=== PATIENT | female | born 1955 | race Caucasian/White ===

== ENCOUNTER 2018-03-26 12:18 | Emergency (ER) | payer OTHER, SELFPAY ==
[2018-03-26 12:19] VITALS: BP 145/91; PULSE 105; RESP 16; TEMP 36.3; O2SAT 97; BMI 23.4
--- NOTE | 2018-03-26 13:04 | RAD_ITS ---
STUDY: X-RAY - THORACIC SPINE REASON FOR EXAM: Female, 63 years old. Upper back pain and spasms. TECHNIQUE: 3 view(s) of the thoracic spine were obtained. COMPARISON: None. FINDINGS: Normal kyphosis of the thoracic spine. There is no substantial scoliosis. Normal thoracic vertebrae and endplates. Normal disc space heights. The soft tissue structures are unremarkable. RAD/Thoracic Spine 3 Views IMPRESSION: Normal x-ray examination of the thoracic spine. Electronically Signed: Horace Maldonado MD at 14:18 EDT Tel [phone], Service support ,
--- NOTE | 2018-03-26 13:06 | ED.VISSUMM ---
- ER Visit Summary Date of Service: 03/26/18 Chief Complaint: Fall History of Present Illness: The patient is a 63 F presenting after fall. Patient states she was walking her dog and the dog pulled and she fell. She hit her back. She did not hit her head or lose consciousness. She complains of upper mid back pain. She has a history of chronic back pain. This worsened her typical pain. She is able to ambulate. She denies other injuries. Physical Examination: Vitals are stable. Patient is afebrile. Alert no acute distress. HEENT exam is unremarkable. Neck is nontender Lungs are clear and equal bilaterally. Heart is regular rate and rhythm. Abdomen is soft nontender nondistended. Back: Thoracic paraspinal muscle tenderness bilaterally Extremities are unremarkable. Skin is warm and dry. No focal neurologic deficit. Normal strength and sensation Remainder of exam is unremarkable. Emergency Department Course and Treatment: Thoracic spine x-ray shows no acute process. Patient was at [facility] ED yesterday for back pain. She has a prescription for Norflex waiting for her at the pharmacy. She will pick this up. She is advised to return to ED for worsening complaints. Disposition: Discharged home Impression: Back pain status post fall This note was generated with [employer] dictation software. It may contain incorrect words, spelling, and punctuation that were not noted in review of the chart prior to signing ED Disposition - Plan for ED Patient: Chief Complaint: Fall Instructions: ED Mechanical Fall Referrals: Dameon Ny MD [Primary Care Provider] -
--- NOTE | 2018-03-26 13:27 | ED.RN ---
PT ASKED ABOUT MEDICATION. PT GIVES LIST. ON COMPUTER THIS RN FINDS SCRIPT FOR NORFLEX. PT STATES DID NOT GET. THIS RN ASKS PT IF THEY WERE SEEN SOMEWHERE YESTERDAY. PT STATES OH YES I FORGOT I WAS SEEN IN [place] YESTERDAY. WHEN ASKED FOR WHAT PT STATES PAIN.. WHEN ASKED WHERE PT POINTS TO SAME PLACE. PT STATES IT WAS DIFFERENT YESTERDAY. TALKED WITH DR JAQUAN CLINTON NOT TO BE GIVEN AT THIS TIME. WILL SEND FOR RAD
--- NOTE | 2018-03-26 14:05 | ED.RN ---
THIS RN CALLS [facility] IN [place]. PRESCRIPTION CLARIFIED. PT DOES HAVE SCRIPT FOR NORFLEX AT THE PHARMACY AWAITING PICK-UP. PT CONFRONTED ABOUT STATING SHE TOLD THEM NOT TO FILL. PT STATES NO SHE HAD THEM FILL IT BUT THEY WERE SUPPOSSED TO CALL WITH RABIA. DR RO. NO MEDS TO BE GIVEN HERE
--- NOTE | 2018-03-26 14:37 | ED.DEP ---
ED Disposition - Plan for ED Patient: Chief Complaint: Fall Instructions: ED Mechanical Fall Referrals: Dameon Ny MD [Primary Care Provider] -
== END 2018-03-26 14:50 | disposition home or self-care (01) ==
PROVIDERS: Emergency Provider Emergency Medicine; Family Provider Family Medicine; PCP Family Medicine
DX: M54.9 Dorsalgia, unspecified (principal); W19.XXXA Unspecified fall, initial encounter; Y93.K1 Activity, walking an animal; Y92.9 Unspecified place or not applicable; Y99.9 Unspecified external cause status; G89.29 Other chronic pain; I10 Essential (primary) hypertension; M81.0 Age-related osteoporosis without current pathological fracture; Z79.899 Other long term (current) drug therapy
CPT/HCPCS: 72072; 99282

== ENCOUNTER 2018-12-15 14:40 | Emergency (ER) | payer SELFPAY ==
[2018-12-15 14:41] VITALS: BP 159/101; PULSE 108; RESP 18; TEMP 36.4; O2SAT 98; BMI 23.9
--- NOTE | 2018-12-15 15:22 | ED.VISSUMM ---
- ER Visit Summary Date of Service: 12/15/18 Chief Complaint: Back pain History of Present Illness: The patient is a 63 F with chronic thoracic back pain. Symptoms have been going on for a while. They were worse today. Nothing seemed to bring them on. No injuries. Pain is in her bilateral upper thoracic paraspinal muscles. She is taking ibuprofen and Flexeril, but it is not helping. No other associated symptoms. Physical Examination: Afebrile and vital signs unremarkable. Alert and oriented. No acute distress. Moving and breathing comfortably. HEENT exam unremarkable. Neck unremarkable. Upper thoracic spine tender to palpation over the paraspinal muscles. No midline tenderness. Skin appears normal. Heart regular. Lungs clear. Neurologic testing unremarkable. Test Results: None indicated Emergency Department Course and Treatment: Patient treated with tramadol, Toradol, Norflex. Resume her home medications. Follow-up with her primary care doctor. Treatment Plan: As above Disposition: Discharge Impression: 1. Thoracic back pain This note was generated with [employer] dictation software. It may contain incorrect words, spelling, and punctuation that were not noted in review of the chart prior to signing ED Disposition - Plan for ED Patient: Referrals: Dameon Ny MD [Primary Care Provider] -
--- NOTE | 2018-12-15 15:26 | ED.DCSUM_ITS ---
- ER Visit Summary Date of Service: 12/15/18 Chief Complaint: Back pain History of Present Illness: The patient is a 63 F with chronic thoracic back pain. Symptoms have been going on for a while. They were worse today. Nothing seemed to bring them on. No injuries. Pain is in her bilateral upper thoracic paraspinal muscles. She is taking ibuprofen and Flexeril, but it is not helping. No other associated symptoms. Physical Examination: Afebrile and vital signs unremarkable. Alert and oriented. No acute distress. Moving and breathing comfortably. HEENT exam unremarkable. Neck unremarkable. Upper thoracic spine tender to palpation over the paraspinal muscles. No midline tenderness. Skin appears normal. Heart regular. Lungs clear. Neurologic testing unremarkable. Test Results: None indicated Emergency Department Course and Treatment: Patient treated with tramadol, Toradol, Norflex. Resume her home medications. Follow-up with her primary care doctor. Treatment Plan: As above Disposition: Discharge Impression: 1. Thoracic back pain This note was generated with [employer] dictation software. It may contain incorrect words, spelling, and punctuation that were not noted in review of the chart prior to signing ED Disposition - Plan for ED Patient: Referrals: Dameon Ny MD [Primary Care Provider] -
--- NOTE | 2018-12-15 15:26 | ED.DEP ---
ED Disposition - Plan for ED Patient: Instructions: ED Spasm Back No Trauma Referrals: Dameon Ny MD [Primary Care Provider] -
[2018-12-15] MEDS: Ketorolac 30 MG/ML Syringe IM (15:28)
[2018-12-15] MEDS: traMADol 50 MG Tablet PO (15:28)
[2018-12-15] MEDS: Orphenadrine 60 MG/2 ML Ampul IM (15:31)
== END 2018-12-15 16:10 | disposition home or self-care (01) ==
LOC: ED 15:16
PROVIDERS: Emergency Provider Emergency Medicine; Family Provider Family Medicine; PCP Family Medicine
DX: M54.6 Pain in thoracic spine (principal); Z79.899 Other long term (current) drug therapy; Z87.891 Personal history of nicotine dependence
CPT/HCPCS: 96372; 99281

== ENCOUNTER 2019-04-03 17:56 | Emergency (ER) | payer SELFPAY ==
[2019-04-03 17:56] VITALS: BP 155/107; PULSE 121; RESP 16; TEMP 36.8; O2SAT 96; BMI 23.8
[2019-04-03 18:06] VITALS: BP 173/92; PULSE 101; RESP 15; O2SAT 98
--- NOTE | 2019-04-03 18:21 | EKG12_ITS ---
Test Reason : PALPATIONS Blood Pressure : / mmHG Vent. Rate : 100 BPM Atrial Rate : 100 BPM P-R Int : 152 ms QRS Dur : 076 ms QT Int : 336 ms P-R-T Axes : 052 009 052 degrees QTc Int : 433 ms Normal sinus rhythm Nonspecific ST abnormality Abnormal ECG Confirmed by HÉCTOR CARPENTER, MATHEW ([id number]), supervising editor trailer JIN LANG ([id number]) on 04/08/2019 1:28:35 PM Referred By: EUSEBIA Confirmed By:MATHEW ANAYA MD
[2019-04-03] MEDS: Aspirin 81 MG TAB.CHEW 324 MG PO (18:35)
[2019-04-03] MEDS: 0.9% Normal Saline 1,000 ML 1000 ML IV (18:35)
[2019-04-03 18:36] VITALS: O2SAT 98
--- NOTE | 2019-04-03 18:41 | RAD_ITS ---
STUDY: X-RAY CHEST REASON FOR EXAM: Female, 64 years old. Chest pain. Palpitations. TECHNIQUE: Frontal and lateral views of the chest. COMPARISON: 09/28/2016 FINDINGS: The lungs are clear and expanded. Small calcified granuloma in the right lung base. There is no demonstrated pleural abnormality. Normal size heart. Normal mediastinum and donna. Normal visualized pulmonary arteries. Normal visualized aortic arch and descending thoracic aorta. Normal visualized thoracic spine. Normal visualized ribs, clavicles, and shoulders. There is no demonstrated abnormality of the visualized soft tissue structures of the upper abdomen. RAD/Chest PA and Lateral IMPRESSION: No acute chest disease. Electronically Signed: Gabriel Field MD at 19:33 EDT , Service support ,
--- NOTE | 2019-04-03 18:47 | ED.VIS.GEN ---
History of Present Illness Chief Complaint: Palpitations Narrative: 64-year-old female presents with palpitations and left ocular pain that lasted 5 minutes 1 hour ago. Her triage complaint reports chest pressure however, she states that she did not have any chest symptoms, only scapular pain. She had palpitations but states that this is not unusual for her when she has muscle spasms in her back. She denies any recent falls or trauma. Denies fever or chills. She reports that she has these spasms on a near weekly basis and they typically last less than 5 minutes. It is currently resolved so severity is 0. Past Medical History - Allergies and Home Meds Allergies/Adverse Reactions: Allergies ampicillin Allergy (Verified 04/03/19 17:58) Hives cefadroxil hydrate [From Duricef] Allergy (Verified 04/03/19 17:58) Hives cephalexin monohydrate [From Keflex] Allergy (Verified 04/03/19 17:58) Hives codeine Allergy (Verified 04/03/19 17:58) Hives erythromycin base [Erythromycin Base] Allergy (Verified 04/03/19 17:58) Hives guaifenesin [From Entex LA] Allergy (Verified 04/03/19 17:58) Hives hydrocodone bitartrate [From Vicodin] Allergy (Verified 04/03/19 17:58) Hives hydrocortisone [From Cortizone-10] Allergy (Verified 04/03/19 17:58) Hives iodine Allergy (Verified 04/03/19 17:58) Hives morphine Allergy (Verified 04/03/19 17:58) Hives Penicillins Allergy (Verified 04/03/19 17:58) Shortness of breath phenylephrine HCl [From Entex LA] Allergy (Verified 04/03/19 17:58) Hives phenylpropanolamine HCl [From Entex LA] Allergy (Verified 04/03/19 17:58) Hives Sulfa (Sulfonamide Antibiotics) Allergy (Verified 04/03/19 17:58) Shortness of breath aspirin Adverse Reaction (Verified 04/03/19 17:58) Other Primary Care Physician: Dameon Ny MD [Primary Care Provider] - Prior records reviewed: Yes Smoking Status: Former smoker Review of Systems General: Denies: Chills, Fever, Sweats Eyes: Denies: Visual changes - bilaterally, Diplopia ENT: Denies: Rhinorrhea, Sore throat Cardiovascular: Reports: Palpitations. Denies: Chest pain Respiratory: Denies: Dyspnea, Cough, Dyspnea on exertion Gastrointestinal: Denies: Abdominal pain, Nausea, Vomiting, Diarrhea, Melena, Hematochezia Genitourinary: Denies: Dysuria, Hematuria, Frequency Musculoskeletal: Reports: Back pain. Denies: Extremity Pain Skin: Denies: Rash, Wounds Neurological: Denies: Headache, Weakness, Numbness Physical Exam Vital Signs/Narrative: Vital Signs Temp Pulse Resp BP Pulse Ox 04/03/19 18:36 98 04/03/19 18:06 101 H 15 173/92 H 98 04/03/19 17:56 98.2 F 121 H 16 155/107 H 96 General: Well nourished, Well developed, No Acute Distress Head: Normocephalic, Atraumatic Eyes: Perrl, EOMI ENT: Moist mucous membranes, No rhinorrhea Neck: Supple, Nontender Cardiovascular: Regular rate, Regular rhythm, No murmurs, Tachycardia Respiratory: No distress, CTA bilaterally, Chest nontender Abdomen: Soft, Nontender, Nondistended, Normal bowel sounds Back: Nontender, Normal Inspection Extremities: No edema, Tenderness - Scapular, no midline tenderness, erythema, or fluctuance. No rash. Skin: Normal color, No rash Neurological: Alert, Oriented x3, Cranial nerves II-XII grossly intact, Normal Strength, Normal Sensation Psychological: Normal affect, Normal Mood Diagnostic/Tx/Re-eval - Medical Decision Making 2 view chest x-ray is unremarkable. Labs are within normal limits. Troponin is negative. EKG reveals sinus rhythm at a rate of 100. No acute ischemic changes. She has absolutely no chest pain or shortness of breath and adamantly denies ever having any to me despite her triage complaint. She states she only had a muscle spasm type pain in her upper thoracic region. She is slightly tachycardic and does have a history of MTHFR so I did initially consider pulmonary embolism. She adamantly refuses a CT angiogram because she has a severe dye allergy. She states that she is chronically tachycardic and that when she was at her doctor last time, her heart rate was 125. She states that it has been this way throughout most of her adult life. On my reexamination while I was speaking with her, her heart rate is 93. She is completely pain-free and has had no recurrence of the pain. She states that this is a chronic recurrent problem for her and she follows with a integrated marketing specialist and actually showed me several messages on her my chart up from her spine doctor discussing her muscle spasms. She has had an MRI for this in the past and it is reproducible on exam. She does not want any further work-up. Feel strongly about going home. She promises me that she will come back if she has recurrence of pain or any shortness of breath/chest pain so I did not feel it was necessary to sign out AGAINST MEDICAL ADVICE. ED Disposition - Plan for ED Patient: Disposition: Home or Assisted Living Diagnosis: Thoracic back pain Instructions: BACK SPASM, No Trauma Prescriptions: Oxycodone HCl/Acetaminophen [Percocet 5/325] 1 tablet PO Q6H PRN PRN 3 Days #12 tablet PRN Reason: Pain Referrals: Dameon Ny MD [Primary Care Provider] - As soon as possible
[2019-04-03 18:58] LABS: Anion Gap 6 (5-15); BUN 12 mg/dL (7-18); BUN/Creat Ratio 10.2 RATIO (10-20); Calcium,Total 9.5 mg/dL (8.5-10.1); Chloride 108 mmol/L (98-107); Creatinine, Serum 1.18 mg/dL (0.55-1.02); EST Glomerular Filtration Rate 49 mL/min (>60); Est Glom Filt Rate - Afr Amer 59 mL/min (>60); Glucose 111 mg/dL (74-106); Potassium 3.8 mmol/L (3.5-5.1); Sodium Level 140 mmol/L (136-145)
[2019-04-03 19:05] LABS: Absolute Lymphocyte Count 2.43 X10^3/ul (0.83-4.51); Absolute Neutrophil Count 2.7 X10^3/uL (2.0-7.7); Basophil# 0.01 X10^3/uL; Basophil% 0.2 % (0-1); Eosinophil# 0.07 X10^3/uL; Eosinophils% 1.2 % (0-5); Hematocrit 40.9 % (37-47); Hemoglobin 13.2 g/dl (12.0-15.0); Lymphocyte # 2.43 X10^3/ul (4.0); Lymphocyte % 42.8 % (19-41); Mean Corp Hgb Conc 32.3 g/gl (32-36); Mean Corpuscular Hgb 28.8 pg (27.0-32.0); Mean Corpuscular Volume 89.1 fL (81-99); Mean Platelet Vol. 11.9 fl (6.2-12.0); Monocyte# 0.44 X10^3/uL; Monocyte% 7.7 % (0-10); Neutrophil # 2.73 X10^3/uL (2.7-7.7); Neutrophil % 48.1 % (47-70); Platelet Count 241 K/mm3 (150-450); RBC Distribution Width CV 14.3 % (11.6-14.6); RBC Distribution Width SD 46.5 fl (35.1-43.9); Red Blood Count 4.59 M/mm3 (4.2-5.4); White Blood Count 5.7 K/mm3 (4.4-11.0)
[2019-04-03 19:11] LABS: POSITIVE COUNT NO; POSITIVE DIFFERENTIAL NO; POSITIVE MORPHOLOGY NO
[2019-04-03 20:07] VITALS: BP 148/111; PULSE 117; RESP 17; O2SAT 97
[2019-04-03 21:36] VITALS: BP 161/91; PULSE 89; RESP 16; O2SAT 98
== END 2019-04-03 21:38 | disposition home or self-care (01) ==
PROVIDERS: Emergency Provider Emergency Medicine; Family Provider Family Medicine; PCP Family Medicine
DX: M54.6 Pain in thoracic spine (principal); Z87.891 Personal history of nicotine dependence
CPT/HCPCS: 71046; 80048; 84484; 85025; 93005; 96360; 96361; 99284; J7030; A4216

== ENCOUNTER → 2019-04-09 09:15 | Outpatient (CLI) | payer SELFPAY ==
[2019-04-03 17:56] VITALS: BMI 23.8
== END ==
LOC: PSN 09:16
PROVIDERS: Family Provider Family Medicine; PCP Family Medicine; Referring Provider Family Medicine; Visit Provider Family Medicine
DX: R00.2 Palpitations (principal)
CPT/HCPCS: 93225; 93226

== ENCOUNTER 2020-12-16 09:18 | Emergency (ER) | payer SELFPAY ==
[2020-12-16 09:22] VITALS: BP 124/85; PULSE 103; RESP 17; TEMP 36.5; O2SAT 96; BMI 23.5
--- NOTE | 2020-12-16 09:55 | RAD_ITS ---
STUDY: X-RAY - THORACIC SPINE REASON FOR EXAM: Female, 65 years old. Injury/Pain TECHNIQUE: 2 view(s) of the thoracic spine were obtained. COMPARISON: None. FINDINGS: Normal kyphosis of the thoracic spine. There is no substantial scoliosis. Mild degree of disc space narrowing and spondylosis in the mid and lower dorsal spine. The soft tissue structures are unremarkable. RAD/Thoracic Spine 2 Views IMPRESSION: Mild degree of disc space narrowing and spondylosis in the mid and lower dorsal spine. Electronically Signed: Horace Maldonado MD at 10:24 EDT , Service support ,
--- NOTE | 2020-12-16 09:55 | RAD_ITS ---
STUDY: X-RAY - CERVICAL SPINE REASON FOR EXAM: Female, 65 years old. Injury/Pain TECHNIQUE: 3 view(s) of the cervical spine were obtained. COMPARISON: None FINDINGS: Normal anterior atlantoaxial articulation. Normal odontoid process. There is reversal of the normal cervical lordosis. Marked degree of disc space narrowing and disc degeneration at the C5-C6 and C6-C7 levels. Anterior spondylosis at the C5-C6 and C6-C7 levels. Normal visualized intervertebral neuroforamina. The soft tissue structures are unremarkable. RAD/Cerv Spine 2 or 3 Views IMPRESSION: Reversal of the normal cervical lordosis. Marked degree of disc space narrowing and spondylosis at the C5-C6 and C6-C7 levels. Electronically Signed: Horace Maldonado MD at 10:23 EDT , Service support ,
[2020-12-16] MEDS: oxyCODONE 5 MG Tablet PO (09:58)
[2020-12-16] MEDS: Acetaminophen 500 MG Tablet 1000 MG PO (09:58)
--- NOTE | 2020-12-16 10:08 | ED.DCSUM_ITS ---
- ER Visit Summary Date of Service: 12/16/20 Chief Complaint: Fall History of Present Illness: The patient is a [address] Ny. She reports that this morning her cat walked out in front of her and she lost her balance and fell. She reports she has neck pain that is 9 out of 10 severity and upper back pain is 10 of 10 severity. She denies blow to the head or loss consciousness. She is not on anticoagulants. No shoulder, wrist, or hip pain. Physical Examination: Vitals: Stable. Afebrile. Neck: Mild diffuse tenderness palpation over her entire C-spine. No point tenderness. Moderate tenderness palpation over the left trapezius muscle. Full ROM without difficulty. Back: Mild tenderness palpation is diffuse over the thoracic spine. No point tenderness. No tenderness palpation over the lumbar spine. General: A&O x 3. NAD. Cardiovascular exam: Regular rate and rhythm, no murmur, rub or gallop. Respiratory exam: Chest nontender. No crepitus. Clear to auscultation bilaterally. No wheezes or stridor. Abdominal exam: Soft, nontender, nondistended, normal bowel sounds. No pain in RUQ or LUQ specifically. No peritoneal signs. Extremity: Atraumatic. No pain with range of motion. Test Results: Clinical Impression(s) from Imaging Studies Cervical Spine X-Ray 12/16/20 09:55 IMPRESSION: Reversal of the normal cervical lordosis. Marked degree of disc space narrowing and spondylosis at the C5-C6 and C6-C7 levels. Electronically Signed: Horace Maldonado MD at 10:23 EDT , Service support , Thoracic Spine X-Ray 12/16/20 09:55 IMPRESSION: Mild degree of disc space narrowing and spondylosis in the mid and lower dorsal spine. Electronically Signed: Horace Maldonado MD at 10:24 EDT , Service support , Emergency Department Course and Treatment: Patient was given Tylenol and oxy codone p.o. She is resting more comfortably. Treatment Plan: Patient will be discharged prescription for 10 Percocet and Colace. Instructed on symptomatic care otherwise. Follow-up with your primary care physician in 3 to 5 days if not improving. Return to the emergency department for any worsening symptoms. Disposition: To home in improved and stable condition. Impression: 1. Fall. 2. Cervical strain. 3. Thoracic strain. This note was generated with [employer] dictation software. It may contain incorrect words, spelling, and punctuation that were not noted in review of the chart prior to signing ED Disposition - Plan for ED Patient: Instructions: ED Back and Neck Pain, General Prescriptions: Docusate Sodium [Colace] 100 mg PO DAILY #20 capsule Prescription Printed Oxycodone HCl/Acetaminophen [Percocet 5/325] 1 tablet PO Q6H PRN PRN 3 Days #12 tablet PRN Reason: Pain Prescription Printed Referrals: Dameon Ny MD [Primary Care Provider] - 3-5 Days if not improving
[2020-12-16 11:05] VITALS: BP 113/74; PULSE 72; RESP 15; O2SAT 97
== END 2020-12-16 11:06 | disposition home or self-care (01) ==
LOC: ED 10:44
PROVIDERS: Emergency Provider Emergency Medicine; PCP Family Medicine
DX: S16.1XXA Strain of muscle, fascia and tendon at neck level, initial encounter (principal); S29.012A Strain of muscle and tendon of back wall of thorax, initial encounter; I10 Essential (primary) hypertension; E78.00 Pure hypercholesterolemia, unspecified; W01.0XXA Fall on same level from slipping, tripping and stumbling without subsequent striking against object, initial encounter
CPT/HCPCS: 72040; 72070; 99283

== ENCOUNTER 2020-12-30 18:46 | Emergency (ER) | payer SELFPAY ==
[2020-12-30 18:47] VITALS: BP 145/113; PULSE 108; RESP 18; TEMP 36.4; O2SAT 97; BMI 24.0
[2020-12-30 18:54] VITALS: BP 145/113; PULSE 108; RESP 18; TEMP 36.4; O2SAT 97
--- NOTE | 2020-12-30 18:57 | ED.VIS.GEN ---
History of Present Illness Chief Complaint: Abd Pain Informant: Patient Onset: Today, Days Context: Gradual Onset Timing: Waxes and wanes Current Severity: Mild Maximum Severity: Mild Narrative: Patient presents with mild lower abdominal pain. Patient states that she had previously been on Zantac for reflux and was just switched to Pepcid. She been taking this for the past 4 days and since that time has had aching sensation in her abdomen. She went to urgent care today and states that she jumped slightly when they palpated her abdomen and was told she needed to come get it checked out in the emergency room. She denies fever or chills. She denies nausea, vomiting, or diarrhea. She states she does have a sensitive stomach and sometimes will get abdominal pain with certain medications. - Past Medical History (1) GERD (gastroesophageal reflux disease) Status: Chronic (2) Hypertension Status: Chronic (3) High cholesterol Status: Chronic Past Medical History - Allergies and Home Meds Allergies/Adverse Reactions: Allergies ampicillin Allergy (Verified 12/30/20 18:49) Hives cefadroxil hydrate [From Duricef] Allergy (Verified 12/30/20 18:49) Hives cephalexin monohydrate [From Keflex] Allergy (Verified 12/30/20 18:49) Hives codeine Allergy (Verified 12/30/20 18:49) Hives erythromycin base [Erythromycin Base] Allergy (Verified 12/30/20 18:49) Hives guaifenesin [From Entex LA] Allergy (Verified 12/30/20 18:49) Hives hydrocodone bitartrate [From Vicodin] Allergy (Verified 12/30/20 18:49) Hives hydrocortisone [From Cortizone-10] Allergy (Verified 12/30/20 18:49) Hives Iodinated Contrast Media [CONTRASTS] Allergy (Verified 12/30/20 18:49) Hives iodine Allergy (Verified 12/30/20 18:49) Hives morphine Allergy (Verified 12/30/20 18:49) Hives Penicillins Allergy (Verified 12/30/20 18:49) Shortness of breath phenylephrine HCl [From Entex LA] Allergy (Verified 12/30/20 18:49) Hives phenylpropanolamine HCl [From Entex LA] Allergy (Verified 12/30/20 18:49) Hives Sulfa (Sulfonamide Antibiotics) Allergy (Verified 12/30/20 18:49) Shortness of breath aspirin Adverse Reaction (Verified 12/30/20 18:49) Other Primary Care Physician: Dameon Ny MD [Primary Care Provider] - Prior records reviewed: Yes Lives: Spouse/ Significant Other Smoking Status: Never smoker Review of Systems General: Denies: Chills, Fever Eyes: Denies: Visual changes - bilaterally Cardiovascular: Denies: Chest pain Respiratory: Denies: Dyspnea, Cough Gastrointestinal: Reports: Abdominal pain. Denies: Nausea, Vomiting, Diarrhea Genitourinary: Denies: Dysuria Musculoskeletal: Denies: Swelling, Extremity Pain Skin: Denies: Rash Neurological: Denies: Headache Hematologic: Denies: Easy bruising, Easy bleeding Allergy: Denies: Uticaria Physical Exam Vital Signs/Narrative: Vital Signs Temp Pulse Resp BP Pulse Ox 12/30/20 18:54 97.6 F L 108 H 18 145/113 H 97 12/30/20 18:47 97.6 F L 108 H 18 145/113 H 97 Inital Vital Signs reviewed: Yes General: Well nourished, Well developed Head: Normocephalic ENT: Moist mucous membranes Neck: Supple Cardiovascular: Regular rate, Regular rhythm Respiratory: No distress, CTA bilaterally Abdomen: Soft, Nontender, Normal bowel sounds Extremities: Nontender Skin: Normal color Neurological: Alert, Oriented x3 Psychological: Normal affect Diagnostic/Tx/Re-eval Impressions Acute Abdomen Series 12/30/20 19:08 IMPRESSION: Ileus Electronically Signed: Damion Roberts MD at 19:54 EDT , Service support , 12/30/20 19:08 Acute Abdomen Inc Chest [RAD] Stat - Medical Decision Making Patient was sent for acute abdominal series. Per my interpretation she does have air distended loops of bowel in the upper abdomen with evidence of constipation in the lower abdomen. Radiologist feels that this is an ileus. Patient did have a bowel movement today. She has no tenderness on exam. Patient be given a prescription for mag citrate. We will also switch her Pepcid to Prilosec. Patient will follow up if not improving as she may require blood work or further imaging at that time. ED Disposition - Plan for ED Patient: Disposition: Home or Assisted Living Diagnosis: Abdominal pain, Constipation Instructions: ED Constipation (Adult) Prescriptions: Magnesium Citrate [Citrate Of Magnesia] 150 ml PO Q4H PRN PRN #1 bottle PRN Reason: Constipation Transmission Status: Pending to [id number] Omeprazole [Prilosec] 20 mg PO DAILY #30 capsule Transmission Status: Pending to [facility] [id number] Referrals: Dameon Ny MD [Primary Care Provider] - 1 Week if not improving
--- NOTE | 2020-12-30 19:08 | RAD_ITS ---
STUDY: X-RAY - ACUTE ABDOMINAL SERIES REASON FOR EXAM: Female, 65 years old. pain TECHNIQUE: Single view of the chest. Supine, and erect view(s) of the abdomen were obtained. COMPARISON: Chest x-ray 04/03/2019 FINDINGS: The lungs are clear and expanded. Normal size heart. Normal mediastinum and donna. Normal visualized pulmonary arteries. Normal visualized aortic arch and descending thoracic aorta. Gas-filled loops of small large bowel. The soft tissue structures of the abdomen and pelvis are unremarkable. Normal visualized osseous structures. RAD/Acute Abdomen Inc Chest IMPRESSION: Ileus Electronically Signed: Damion Roberts MD at 19:54 EDT , Service support ,
[2020-12-30 20:08] VITALS: BP 136/80; PULSE 90; RESP 18
== END 2020-12-30 20:09 | disposition home or self-care (01) ==
PROVIDERS: Emergency Provider Emergency Medicine; PCP Family Medicine
DX: K59.00 Constipation, unspecified (principal); I10 Essential (primary) hypertension; E78.00 Pure hypercholesterolemia, unspecified; K21.9 Gastro-esophageal reflux disease without esophagitis; Z79.899 Other long term (current) drug therapy
CPT/HCPCS: 74022; 99282

== ENCOUNTER 2021-01-08 06:30 | Emergency (ER) | payer SELFPAY ==
[2021-01-08 06:30] VITALS: BP 166/84; PULSE 113; RESP 16; TEMP 36; O2SAT 99; BMI 23.5
--- NOTE | 2021-01-08 06:32 | ED.VIS.GEN ---
History of Present Illness Chief Complaint: Back Detail of Chief Complaint: Burning low back pain and burning with urination Informant: Patient Onset: Today, Hours Context: Sudden Onset Timing: Continuous - Burning low back pain has been continuous Quality: Burning sensation Location: Central low back and urethra Current Severity: Mild Maximum Severity: Moderate Worsened by: Urination Relieved by: Nothing Associated Symptoms: None Narrative: Patient is a 65-year-old woman who presents with abrupt onset of burning low back pain and burning with urination. She urinated at 0600. She denies frequency, urgency or hematuria. Her last urinary tract infection was August. She denies fever, chills night sweats. There is no history of trauma. Movement does not exacerbate her low back pain. She denies radicular pain. There is no history of trauma. Prior similar symptoms: Yes - Urinary tract infection Recent Illness/Hospitalization: No - Past Medical History (1) GERD (gastroesophageal reflux disease) Status: Chronic (2) High cholesterol Status: Chronic (3) Hypertension Status: Chronic Past Medical History - Allergies and Home Meds Allergies/Adverse Reactions: Allergies ampicillin Allergy (Verified 12/30/20 18:49) Hives cefadroxil hydrate [From Duricef] Allergy (Verified 12/30/20 18:49) Hives cephalexin monohydrate [From Keflex] Allergy (Verified 12/30/20 18:49) Hives codeine Allergy (Verified 12/30/20 18:49) Hives erythromycin base [Erythromycin Base] Allergy (Verified 12/30/20 18:49) Hives guaifenesin [From Entex LA] Allergy (Verified 12/30/20 18:49) Hives hydrocodone bitartrate [From Vicodin] Allergy (Verified 12/30/20 18:49) Hives hydrocortisone [From Cortizone-10] Allergy (Verified 12/30/20 18:49) Hives Iodinated Contrast Media [CONTRASTS] Allergy (Verified 12/30/20 18:49) Hives iodine Allergy (Verified 12/30/20 18:49) Hives morphine Allergy (Verified 12/30/20 18:49) Hives Penicillins Allergy (Verified 12/30/20 18:49) Shortness of breath phenylephrine HCl [From Entex LA] Allergy (Verified 12/30/20 18:49) Hives phenylpropanolamine HCl [From Entex LA] Allergy (Verified 12/30/20 18:49) Hives Sulfa (Sulfonamide Antibiotics) Allergy (Verified 12/30/20 18:49) Shortness of breath aspirin Adverse Reaction (Verified 12/30/20 18:49) Other Primary Care Physician: Dameon Ny MD [Primary Care Provider] - Prior records reviewed: Yes Surgical History: noncontributory Lives: Alone Smoking Status: Former smoker Alcohol: None Drugs: None Review of Systems General: Denies: Chills, Fever, Malaise, Sweats Eyes: Denies: Visual changes - bilaterally, Blurred Vision - bilaterally Cardiovascular: Denies: Chest pain Respiratory: Denies: Dyspnea Gastrointestinal: Denies: Abdominal pain, Nausea, Vomiting, Diarrhea, Melena, Hematochezia Genitourinary: Reports: Dysuria. Denies: Hematuria, Frequency Musculoskeletal: Reports: Back pain - Central low back. Denies: Myalgias, Arthralgias, Neck pain, Swelling, Extremity Pain Skin: Denies: Rash, Wounds Neurological: Denies: Headache, Weakness Hematologic: Denies: Easy bruising, Easy bleeding Physical Exam Inital Vital Signs reviewed: Yes General: Well nourished, Well developed Head: Normocephalic, Atraumatic Eyes: Perrl, EOMI. Negative for: Pale conjunctiva, Scleral icterus Cardiovascular: Regular rate, Regular rhythm, No murmurs, Normal S1, Normal S2 Respiratory: No distress, CTA bilaterally, Chest nontender Abdomen: Soft, Nontender, Nondistended, Normal bowel sounds, No masses Rectal: Deferred Back: Nontender, Normal Inspection. Negative for: CVA tenderness, Spinal tenderness Extremities: Nontender, No edema Skin: Normal color, No rash Neurological: Alert, Oriented x3, Normal Strength, Normal Sensation, Normal Gait Psychological: Normal affect Diagnostic/Tx/Re-eval Laboratory Results 01/08/21 06:35 Urine Color Yellow Urine Clarity Clear Urine pH 7.0 Ur Specific [place] 1.005 Urine Protein Negative Urine Glucose (UA) Normal Urine Ketones Negative Urine Occult Blood 10 H Urine Nitrite Negative Urine Bilirubin Negative Urine Urobilinogen Normal Ur Leukocyte Esterase 25 H Urine RBC 0 SEEN Urine WBC 0-5 SEEN Ur Squamous Epith Cells 0-5 SEEN Urine Bacteria 0 SEEN Urine Mucus 0 SEEN Analysis is unremarkable. However, patient urinated 30 minutes prior to given a specimen. This may result in a false negative. Patient states she has significant burning when she urinated. Review of prior records indicate she was treated last time with Macrobid. Will discharge to home with prescription for Macrobid and Pyridium. - Medical Decision Making With chief complaint of low back pain and burning with urination will obtain UA to assess for urinary tract infection. Since she is not febrile and has no CVA tenderness doubt pyelonephritis. Based on history and exam this is not musculoskeletal low back pain. Since there is no tenderness in the left lower quadrant she has no history of diverticulitis doubt diverticulitis. ED Disposition - Plan for ED Patient: Disposition: Home or Assisted Living Diagnosis: Acute cystitis without hematuria Instructions: ED Bladder Infection, Female (Adult) Prescriptions: Nitrofurantoin Macrocrystals [Macrobid] 100 mg PO Q12 #10 capsule Transmission Status: Pending to [id number] Phenazopyridine HCl [Pyridium] 200 mg PO TID #10 tablet Transmission Status: Pending to [id number] Referrals: Dameon Ny MD [Primary Care Provider] - 3-5 Days if not improving
[2021-01-08 06:52] LABS: Bacteria 0 SEEN /hpf (None Seen); Color, Urine Yellow (Yellow); Glucose, Dipstick Normal (Normal); Ketone-Dipstick Negative (Negative); Leukocyte Esterase-Dipstick 25 /ul (Negative); Mucous, Urine 0 SEEN /hpf (<or=2+); Nitrite-Dipstick Negative (Negative); Occult Blood-Urine 10 /ul (Negative); Protein-Dipstick Negative (Negative); Red Blood Cells-Urine 0 SEEN /hpf (0-5); Specific Gravity, Urine 1.005 (1.002-1.030); Urine Bilirubin Dipstick Negative (Negative); Urine Clarity Clear (Clear); Urine Urobilinogen Normal (Normal)
[2021-01-08 07:17] LABS: Squamous Epithelial Cells - UA 0-5 SEEN /hpf (5-10); White Blood Cells 0-5 SEEN /hpf (0-5)
[2021-01-08 07:24] VITALS: PULSE 74; RESP 16; O2SAT 98
[2021-01-08] MEDS: Phenazopyridine 95 MG Tablet 190 MG PO (07:27)
[2021-01-08] MEDS: Nitrofurantoin Macrocrystals 100 MG Capsule PO (07:27)
== END 2021-01-08 07:31 | disposition home or self-care (01) ==
PROVIDERS: Emergency Provider Emergency Medicine; PCP Family Medicine
DX: N30.00 Acute cystitis without hematuria (principal); K21.9 Gastro-esophageal reflux disease without esophagitis; E78.00 Pure hypercholesterolemia, unspecified; I10 Essential (primary) hypertension; Z87.891 Personal history of nicotine dependence; Z79.899 Other long term (current) drug therapy
CPT/HCPCS: 81001; 99283

== ENCOUNTER 2021-01-13 00:44 | Inpatient (IN) | payer MEDICARE, SELFPAY ==
[2021-01-13] VITALS (12 sets, daily range): BP systolic 119–160; BP diastolic 72–93; PULSE 96–128; RESP 18–26; TEMP 36.1–36.8; O2SAT 93–100; BMI 24.0; BMI 24.3; BMI 24.4
--- NOTE | 2021-01-13 01:10 | EKG12_ITS ---
Test Reason : HIGH HR Blood Pressure : / mmHG Vent. Rate : 117 BPM Atrial Rate : 117 BPM P-R Int : 164 ms QRS Dur : 076 ms QT Int : 306 ms P-R-T Axes : 052 019 073 degrees QTc Int : 426 ms Poor data quality, interpretation may be adversely affected Sinus tachycardia Nonspecific T wave abnormality Abnormal ECG Confirmed by BELLE CARPENTER, RHYS ([id number]), non linear editor JIN LANG ([id number]) on 01/13/2021 1:05:20 PM Referred By: Confirmed By:RHYS ODONNELL MD
[2021-01-13] MEDS: 0.9% Normal Saline 1,000 ML 1000 ML IV (01:25)
[2021-01-13 01:32] LABS: Absolute Lymphocyte Count 0.73 X10^3/uL (0.83-4.51); Absolute Neutrophil Count 9.2 X10^3/uL (2.0-7.7); Basophil# 0.02 X10^3/uL; Basophil% 0.2 % (0-1); Eosinophil# 0.09 X10^3/uL; Eosinophils% 0.8 % (0-5); Hematocrit 45.1 % (37-47); Hemoglobin 14.5 g/dL (12.0-15.0); Lymphocyte # 0.73 X10^3/ul (4.0); Lymphocyte % 6.9 % (19-41); Mean Corp Hgb Conc 32.2 g/dL (32-36); Mean Corpuscular Hgb 31.1 pg (27.0-32.0); Mean Corpuscular Volume 96.8 fL (81-99); Mean Platelet Vol. 11.1 fl (6.2-12.0); Monocyte# 0.53 X10^3/uL; NRBC Flagged by Analyzer 0 % (0-5); Neutrophil # 9.24 X10^3/uL (2.7-7.7); Platelet Count 186 K/mm3 (150-450); RBC Distribution Width SD 46.4 fl (35.1-43.9); Red Blood Count 4.66 M/mm3 (4.2-5.4); White Blood Count 10.6 K/mm3 (4.4-11.0)
[2021-01-13 01:38] LABS: Bacteria 0 SEEN /hpf (None Seen); Mucous, Urine 0 SEEN /hpf (<or=2+)
--- NOTE | 2021-01-13 01:38 | ED.VISSUMM ---
- ER Visit Summary Date of Service: 01/13/21 Chief Complaint: Palpitations History of Present Illness: The patient is a 65 F presenting with palpitations. Patient states she started Macrobid today for UTI. She has noticed heart racing since taking that medication. She has taken this medication in the past with no problems. She denies chest pain. Denies fever. Denies nausea or vomiting. She states she had dysuria and urinary frequency which is improving. She denies back pain. Denies other complaints. Physical Examination: Vitals are stable. Heart rate 122. Patient is afebrile. Alert no acute distress. HEENT exam is unremarkable. Neck is supple. Lungs are clear and equal bilaterally. Heart is regular tachycardic Abdomen is soft nontender nondistended. No guarding or rebound Back: No CVA tenderness Extremities are unremarkable. Skin is warm and dry. No focal neurologic deficit. Remainder of exam is unremarkable. Emergency Department Course and Treatment: Patient was given IV fluids. EKG is sinus tachycardia rate of 117. CBC unremarkable. Chemistries show creatinine 1.31. Urinalysis shows 10-25 white blood cells, urine culture was sent. Blood cultures were sent. Troponin is negative. Lactic acid normal. Age-adjusted D-dimer is normal. Patient continues to be tachycardic 120s-130s. She meets sepsis criteria but not severe sepsis or septic shock. She was given a aztreonam IV due to multiple allergies. Discussed with hospitalist for admission. Disposition: Admission Impression: Sepsis, UTI, palpitations This note was generated with [employer] dictation software. It may contain incorrect words, spelling, and punctuation that were not noted in review of the chart prior to signing ED Disposition - Plan for ED Patient: Referrals: Dameon Ny MD [Primary Care Provider] -
[2021-01-13 01:39] LABS: Color, Urine Yellow (Yellow); Glucose, Dipstick Normal (Normal); Ketone-Dipstick Negative (Negative); Leukocyte Esterase-Dipstick 100 /ul (Negative); Nitrite-Dipstick Negative (Negative); Occult Blood-Urine 50 /ul (Negative); Protein-Dipstick Negative (Negative); Specific Gravity, Urine 1.005 (1.002-1.030); Urine Bilirubin Dipstick Negative (Negative); Urine Clarity Clear (Clear); Urine Urobilinogen Normal (Normal)
[2021-01-13 01:43] LABS: Red Blood Cells-Urine 0-5 SEEN /hpf (0-5); Squamous Epithelial Cells - UA 0-5 SEEN /hpf (5-10); Transitional Epithelial - Ur 0-5 SEEN /hpf (0-5); White Blood Cells 10-25 SEEN /hpf (0-5)
[2021-01-13 01:51] LABS: Anion Gap 3 (5-15); BUN 16 mg/dL (7-18); BUN/Creat Ratio 12.2 RATIO (10-20); Calcium,Total 9.1 mg/dL (8.5-10.1); Chloride 106 mmol/L (98-107); Creatinine, Serum 1.31 mg/dL (0.55-1.02); EST Glomerular Filtration Rate 43 mL/min (>60); Est Glom Filt Rate - Afr Amer 52 mL/min (>60); Estimated Creatinine Clearance 35.99 ml/min; Glucose 107 mg/dL (74-106); Potassium 3.5 mmol/L (3.5-5.1); Sodium Level 139 mmol/L (136-145)
[2021-01-13 01:55] LABS: Lactic Acid 1.1 mmol/L (0.4-1.9)
--- NOTE | 2021-01-13 02:58 | HP.PCM_ITS ---
Problem List (1) Sepsis Status: Acute (2) GERD (gastroesophageal reflux disease) Status: Chronic (3) High cholesterol Status: Chronic (4) Hypertension Status: Chronic (5) Cystitis Status: Acute History of Present Illness Date of Admission: 01/13/21 Chief Complaint: Elevated heart rate The patient is a 65 year old F with a significant history of hypertension; hyperlipidemia; and recurrent UTI who presents to the emergency department with elevated pulse that started few hours before presentation. Routinely patient checks her blood pressure 3 times in a day. She checked her blood pressure at the evening before presentation and realized that her pulse was elevated. She attributed her elevated pulse to Macrobid that she started on the same day. About 4 days ago she developed burning with urination. She denied any fever or chills. At the emergency department her heart rate was elevated. Her respiratory rate was also elevated. Past Medical History Past Medical History (Chronic Problems): Chronic Problems GERD (gastroesophageal reflux disease) (Chronic) Hypertension (Chronic) High cholesterol (Chronic) Allergies ampicillin Allergy (Verified 01/13/21 00:48) Hives cefadroxil hydrate [From Duricef] Allergy (Verified 01/13/21 00:48) Hives cephalexin monohydrate [From Keflex] Allergy (Verified 01/13/21 00:48) Hives codeine Allergy (Verified 01/13/21 00:48) Hives erythromycin base [Erythromycin Base] Allergy (Verified 01/13/21 00:48) Hives guaifenesin [From Entex LA] Allergy (Verified 01/13/21 00:48) Hives hydrocodone bitartrate [From Vicodin] Allergy (Verified 01/13/21 00:48) Hives hydrocortisone [From Cortizone-10] Allergy (Verified 01/13/21 00:48) Hives Iodinated Contrast Media [CONTRASTS] Allergy (Verified 01/13/21 00:48) Hives iodine Allergy (Verified 01/13/21 00:48) Hives morphine Allergy (Verified 01/13/21 00:48) Hives Penicillins Allergy (Verified 01/13/21 00:48) Shortness of breath phenylephrine HCl [From Entex LA] Allergy (Verified 01/13/21 00:48) Hives phenylpropanolamine HCl [From Entex LA] Allergy (Verified 01/13/21 00:48) Hives Sulfa (Sulfonamide Antibiotics) Allergy (Verified 01/13/21 00:48) Shortness of breath aspirin Adverse Reaction (Verified 01/13/21 00:48) Other Home Medications: Ambulatory Orders Medication Instructions Recorded Lisinopril [Zestril] 40 mg PO DAILY 09/20/16 cycloBENZAPRine HCl [Flexeril] 10 mg PO TID 12/15/18 Atorvastatin Calcium [Lipitor] 10 mg PO QHS 04/03/19 Omeprazole [Prilosec] 20 mg PO DAILY #30 capsule 12/30/20 Nitrofurantoin Macrocrystals 100 mg PO Q12 #10 capsule 01/08/21 [Macrobid] Phenazopyridine HCl [Pyridium] 200 mg PO TID #10 tablet 01/08/21 Surgical History: - - Smoking Status: Former smoker - *Family History Maternal History Items: Cancer - His mother had breast cancer. His brother also had blood disease., - Paternal History Items: Heart Disease, Hypertension Review of Systems Constitutional: Denies: Chills, Fever, Weight Change HEENT: Denies: Head Aches, Sinus Congestion, Sinus Drainage Cardiovascular: Denies: Chest Pain, Palpitations Respiratory: Denies: Cough, Shortness of breath at rest, Sputum production Gastrointestinal: Denies: Abdominal Pain, Nausea, Vomiting Genitourinary: Reports: Dysuria Musculoskeletal: Denies: Joint Pain, Joint Tenderness Skin: Denies: Rash, Wounds Neurological: Denies: Numbness, Tingling, Focal weakness Psychiatric: Denies: Anxiety, Depression, Homicidal Ideations, Suicidal Ideations Hematologic/ Lymphatic: Denies: Easy Bruising, Easy Bleeding VTE Information - Inpt Only VTE Present on Admission: No VTE Mechan Device Prophylaxis: None VTE Pharm Prophylaxis ordered?: Yes Patient Problems: Active and Suspected Problems Sepsis (Acute) Cystitis (Acute) - Physical Exam Vitals/I&O's: Vital Signs Temp Pulse Resp BP Pulse Ox 97.6 F L 124 H 26 H 160/93 H 94 01/13/21 02:45 01/13/21 02:45 01/13/21 02:45 01/13/21 02:45 01/13/21 02:45 Oxygen Delivery Method Room Air Weight: 63.503 kg Body Mass Index (BMI) 24.0 General: Alert, Oriented x3, Cooperative HEENT: Atraumatic, PERRLA, EOMI, Normocephalic Neck: Supple, No JVD, Negative Carotid Bruits Lungs: Clear to auscultation, Normal air movement, Tachypneic Cardiovascular: Regular rate, Normal S1, Normal S2, No murmurs, Tachycardic Abdomen: Bowel Sounds Present, Soft, Non Tender Extremities: No edema, Capillary Refill Less than 3 Seconds Skin: No rashes, No breakdown Musculoskeletal: No Tenderness to Palpation of Joints or Extremities Neurological: Cranial nerves II-XII grossly intact Psych/Mental Status: Normal Affect, Appropriate Laboratory Results 01/13/21 01:25: WBC 10.6, RBC 4.66, Hgb 14.5, Hct 45.1, MCV 96.8, MCH 31.1, MCHC 32.2, RDW Std Deviation 46.4 H, RDW Coeff of Eduardo 13.0, Plt Count 186, MPV 11.1, Immature Gran % (Auto) 0.100, Neut % (Auto) 87.0 H, Lymph % (Auto) 6.9 L, Benson % (Auto) 5.0, Eos % (Auto) 0.8, Baso % (Auto) 0.2, Absolute Neuts (auto) 9.2 H, Absolute Lymphs (auto) 0.73 L, Nucleated RBC % 0 01/13/21 01:25: D-Dimer Quant (PE/DVT) 0.50 H 01/13/21 01:25: Sodium 139, Potassium 3.5, Chloride 106, Carbon Dioxide 30.0, Anion Gap 3 L, BUN 16, Creatinine 1.31 H, Estim Creat Clear Calc 35.99, Est GFR (MDRD) Af Amer 52 L, Est GFR (MDRD) Non-Af 43 L, BUN/Creatinine Ratio 12.2, Glucose 107 H, Calcium 9.1, Troponin I < 0.015 01/13/21 01:25: Lactic Acid 1.1 01/13/21 01:35: Urine Color Yellow, Urine Clarity Clear, Urine pH 7.0, Ur Specific [place] 1.005, Urine Protein Negative, Urine Glucose (UA) Normal, Urine Ketones Negative, Urine Occult Blood 50 H, Urine Nitrite Negative, Urine Biliru bin Negative, Urine Urobilinogen Normal, Ur Leukocyte Esterase 100 H, Urine RBC 0-5 SEEN, Urine WBC 10-25 SEEN, Ur Squamous Epith Cells 0-5 SEEN, Ur Transition Epith Cell 0-5 SEEN, Urine Bacteria 0 SEEN, Urine Mucus 0 SEEN Current Medications Aztreonam 2 gm/ Sodium (Chloride) 100 mls @ 150 mls/hr IV X1 ONE Stop: 01/13/21 03:02 Last Admin: 01/13/21 02:40 Dose: 150 mls/hr Documented by: Assessment/Plan All Active Problems Sepsis (Acute) Cystitis (Acute) The patient is a 65 year old F with a significant history of hypertension; hyperlipidemia; and recurrent UTI who presents to the emergency department with elevated heart rate; elevated respiratory rate; and abnormal urinalysis and was on outpatient Macrobid. Sepsis secondary to acute cystitis Review emergency department labs showed abnormal urinalysis. Patient was on Macrobid before presentation SIRS criteria: Tachycardia with heart rate in the 120s to 130s; respiratory rate of more than 20 At the ED, because of multiple allergies patient was started on aztreonam for UTI. Will continue aztreonam. Stop home Macrobid. Pyridium continued. Elevated D-dimer D-dimer of 0.50 which with age adjustment is appropriate Patient is not hypoxic. Will attributes tachycardia and tachypnea to sepsis CKD stage III Stable Creatinine presentation was 1.31. Review of records show that in 2018 her creatinine was 1.18. In 2016 creatinine was 0.98-1.01. Review community records showed that on 09/04/2020 creatinine was 1.08. Rece ived normal saline bolus at emergency department. Gentle IV hydration ordered. Trend BMP. Continue lisinopril for now. Hyperlipidemia Lipitor continued. DVT Prophylaxis Subcutaneous Lovenox ordered Inpatient E&M: [id number] Init Hosp L3
[2021-01-13] MEDS: 0.9% Normal Saline 1,000 ML 75 ML IV (05:29)
[2021-01-13] MEDS: Acetaminophen 325 MG Tablet 650 MG PO (05:31)
--- NOTE | 2021-01-13 11:00 | CASEMGMT ---
RN JACKY SOCCER COMMENTATOR CM to room to meet with patient for initial transition planning/care coordination assessment. RN JACKY introduced self and role at [facility]. Pt voices understanding and consents to assessment at this time. Pt resting in bed in no distress at this time. @ bedside. Pt is A/O at this time and answers all questions appropriately. Care providers, pharmacy, and demographics verified/updated at this time. PCP: Dr Ny Specialists:none Preferred Pharmacy: [facility] Insurance: [facility] A only Living Will/HPOA: [facility] does not have LW or HCPOA . Interested in more information but states does not want to talk with SW at this time to complete paperwork. Provided information on advanced directives and given Social Service rac card with number to call if chooses in the future to utilize [facility] social work for advanced directive completion. Educated patient that, if patient so chooses, can come back to [facility] and meet with a SW as an outpatient to complete health care advanced directives. Patient expresses understanding. LNOK: Tony Living Arrangements: Lives w/ in mobile home w/ramp entrance. Transportation: Pt states drives self and states no transportation concerns at this time. also drives DME: Denies using any DME and denies needs. HHC/SNF: No history of either. Denies need for HHC or OP therapy and no needs identified. Pt wishes to return home and states has no concerns with going home at time of discharge. CM to follow for any discharge planning/needs. Pt voices no further concerns/needs at this time. Advised pt to ask for CM if any further questions/concerns/needs arise. Voices understanding. PLAN: Home w/spousal support and discharge plans in place. Felipe JOHN RN, CM
--- NOTE | 2021-01-13 11:01 | DCINST_ITS ---
- Discharge Diagnoses Current Active Problems: Current Active and Chronic Problems GERD (gastroesophageal reflux disease) (Chronic) Hypertension (Chronic) High cholesterol (Chronic) Sepsis (Acute) Cystitis (Acute) Reason(s) for Visit for Discharge Instructions: Sepsis secondary to Acute UTI You will use the following diet at home:: Cardiac Your food should be the consistency of: Regular Your liquids should be the consistency of: Regular/Thin Discharge Activity: Return to Normal Activity Additional Instructions: Complete your antibiotics as prescribed. Continue to keep yourself hydrated. Follow-up with your primary care doctor within 1 to 2 weeks. Allergies/Adverse Reactions: Allergies ampicillin Allergy (Verified 01/13/21 00:48) Hives cefadroxil hydrate [From Duricef] Allergy (Verified 01/13/21 00:48) Hives cephalexin monohydrate [From Keflex] Allergy (Verified 01/13/21 00:48) Hives codeine Allergy (Verified 01/13/21 00:48) Hives erythromycin base [Erythromycin Base] Allergy (Verified 01/13/21 00:48) Hives guaifenesin [From Entex LA] Allergy (Verified 01/13/21 00:48) Hives hydrocodone bitartrate [From Vicodin] Allergy (Verified 01/13/21 00:48) Hives hydrocortisone [From Cortizone-10] Allergy (Verified 01/13/21 00:48) Hives Iodinated Contrast Media [CONTRASTS] Allergy (Verified 01/13/21 00:48) Hives iodine Allergy (Verified 01/13/21 00:48) Hives morphine Allergy (Verified 01/13/21 00:48) Hives Penicillins Allergy (Verified 01/13/21 00:48) Shortness of breath phenylephrine HCl [From Entex LA] Allergy (Verified 01/13/21 00:48) Hives phenylpropanolamine HCl [From Entex LA] Allergy (Verified 01/13/21 00:48) Hives Sulfa (Sulfonamide Antibiotics) Allergy (Verified 01/13/21 00:48) Shortness of breath aspirin Adverse Reaction (Verified 01/13/21 03:34) Itching Medications to take at Discharge Lisinopril [Zestril] 40 mg PO DAILY 09/20/16 cycloBENZAPRine HCl [Flexeril] 10 mg PO TID PRN 12/15/18 Atorvastatin Calcium [Lipitor] 10 mg PO QHS 04/03/19 Levofloxacin [Levaquin] 500 mg PO DAILY 3 Days #3 tablet 01/13/21 Omeprazole [Prilosec] 20 mg PO DAILY 01/13/21 The following prescriptions were given: Levofloxacin [Levaquin] 500 mg PO DAILY 3 Days #3 tablet Transmission Status: Pending to [id number] Primary Care Physician: Dameon Ny MD [Primary Care Provider] - Please follow up with your Primary Care Physician in: within 1-2 weeks Test Results: Test results from this visit will be discussed in further detail at your follow- up appointment, if applicable. Proposed Discharge Date: 01/13/21
--- NOTE | 2021-01-13 11:05 | PCM.DC.SUM ---
Discharge Date and Diagnosis - Problem List Patient Problems: Active and Suspected Problems Sepsis (Acute) Cystitis (Acute) Date of Admission: 01/13/21 Date of Discharge: 01/13/21 - Primary Discharge Diagnosis Acute Problems: Active Problems Sepsis secondary to acute UTI - Secondary Discharge Diagnosis Chronic Problems: Chronic Problems GERD (gastroesophageal reflux disease) (Chronic) Hypertension (Chronic) High cholesterol (Chronic) Hospital Course and Treatment Imaging Results: Clinical Impression(s) from Imaging Studies Chest X-Ray 01/13/21 11:20 IMPRESSION: Hyperinflation. The lungs are clear. Electronically Signed: Horace Maldonado MD at 11:59 EDT , Service support , Operations: None Procedures: None Summary of Care Provided: The patient is a 65 year old F with past medical history of hypertension, hyperlipidemia, history of recurrent UTI who comes in with dysuria but denies any frequency or fever or chills. Patient was started on Macrobid and she also complains of elevated HR. she checks her blood pressure 3 times a day and noted that her pulse was elevated. Urgency department, she has sinus tachycardia, no leukocytosis. No fevers. Her UA was suggestive of UTI. [facility] and manage her sepsis secondary to acute UTI. Urine cultures grew mixed gram-positive and negative organisms. Patient appears to have improved faster than anticipated. She remained stable the next morning. Clinically she looked very well. Her heart rate was elevated but patient appeared to be anxious. She was eager to be discharged. She was discharged on Levaquin to complete 1 week treatment. She will follow-up with her primary care doctor repeat blood work within 1 week. Patient Problems: Active and Suspected Problems Sepsis (Acute) Cystitis (Acute) Subjective: On the day of discharge, patient was seen and examined. She stated that she felt well. Denied any dysuria or frequency. She is very eager to be discharged. Objective: Physical exam: General: Alert, Oriented x3, Cooperative, No apparent distress, Well developed HEENT: Atraumatic Oral: Moist Mucosa Neck: Supple Lungs: Clear to auscultation Cardiovascular: HS I+II, regular, no murmurs Abdomen: Bowel Sounds Present, Soft, Non Tender Extremities: No edema Skin: No rashes, No breakdown Neurological: Grossly intact Psych/Mental Status: Appropriate - Physical Exam Vitals/I&O's: Vital Signs Temp Pulse Resp BP Pulse Ox 98.2 F 111 H 18 142/74 H 95 01/13/21 08:25 01/13/21 08:25 01/13/21 08:25 01/13/21 08:25 01/13/21 08:25 Oxygen Delivery Method Room Air Weight: 64.4 kg Body Mass Index (BMI) 24.3 Intake and Output for Last 24 Hours 01/11/21 01/12/21 01/13/21 23:59 23:59 23:59 Intake Total 1507.5 / 1507.5 Balance 1507.5 / 1507.5 Laboratory Results 01/13/21 01:25: WBC 10.6, RBC 4.66, Hgb 14.5, Hct 45.1, MCV 96.8, MCH 31.1, MCHC 32.2, RDW Std Deviation 46.4 H, RDW Coeff of Eduardo 13.0, Plt Count 186, MPV 11.1, Immature Gran % (Auto) 0.100, Neut % (Auto) 87.0 H, Lymph % (Auto) 6.9 L, [place] % (Auto) 5.0, Eos % (Auto) 0.8, Baso % (Auto) 0.2, Absolute Neuts (auto) 9.2 H, Absolute Lymphs (auto) 0.73 L, Nucleated RBC % 0 01/13/21 01:25: D-Dimer Quant (PE/DVT) 0.50 H 01/13/21 01:25: Sodium 139, Potassium 3.5, Chloride 106, Carbon Dioxide 30.0, Anion Gap 3 L, BUN 16, Creatinine 1.31 H, Estim Creat Clear Calc 35.99, Est GFR (MDRD) Af Amer 52 L, Est GFR (MDRD) Non-Af 43 L, BUN/Creatinine Ratio 12.2, Glucose 107 H, Calcium 9.1, Troponin I < 0.015 01/13/21 01:25: Lactic Acid 1.1 01/13/21 01:25: TSH 1.20 01/13/21 01:35: Urine Color Yellow, Urine Clarity Clear, Urine pH 7.0, Ur Specific [place] 1.005, Urine Protein Negative, Urine Glucose (UA) Normal, Urine Ketones Negative, Urine Occult Blood 50 H, Urine Nitrite Negative, Urine Bilirubin Negative, Urine Urobilinogen Normal, Ur Leukocyte Esterase 100 H, Urine RBC 0-5 SEEN, Urine WBC 10-25 SEEN, Ur Squamous Epith Cells 0-5 SEEN, Ur Transition Epith Cell 0-5 SEEN, Urine Bacteria 0 SEEN, Urine Mucus 0 SEEN Current Medications Acetaminophen (Acetaminophen 325 Mg Tablet) 650 mg PO Q6H PRN PRN PRN Reason: Pain Score 1-10/Temp > 100.7 F Last Admin: 01/13/21 05:31 Dose: 650 mg Documented by: Atorvastatin Calcium (Atorvastatin Calcium 10 Mg Tablet) 10 mg PO QHS [facility] Cyclobenzaprine HCl (Cyclobenzaprine Hcl 10 Mg Tablet) 10 mg PO TID PRN PRN Reason: back spasms Enoxaparin Sodium (Enoxaparin 40 Mg/0.4 Ml Syringe) 40 mg SC DAILY [facility] Last Admin: 01/13/21 09:55 Dose: Not Given Documented by: Sodium Chloride () 1,000 mls @ 100 mls/hr IV .Q10H [facility] Last Infusion: 01/13/21 08:15 Dose: 100 mls/hr Documented by: Aztreonam 2 gm/ Sodium (Chloride) 100 mls @ 150 mls/hr IV Q8 [facility] Lisinopril (Lisinopril 40 Mg Tablet) 40 mg PO DAILY [facility] Last Admin: 01/13/21 09:55 Dose: Not Given Documented by: Melatonin (Melatonin 3 Mg Tablet) 3 mg PO QHS PRN PRN PRN Reason: INSOMNIA Ondansetron HCl (Ondansetron 4 Mg/2 Ml Vial) 4 mg IV Q8H PRN PRN PRN Reason: NAUSEA/VOMITING Pantoprazole Sodium (Pantoprazole Sodium 20 Mg Tablet) 20 mg PO DAILY [facility] Last Admin: 01/13/21 09:55 Dose: Not Given Documented by: Senna/Docusate Sodium (Senna/Docusate Sodium 1 Tablet) 2 tablet PO BID PRN PRN PRN Reason: Constipation Sodium Chloride (0.9% Saline Lock 10 Ml Syringe) 10 - 40 ml IV UD PRN PRN Reason: SALINE FLUSH Discharge Diet: No Restrictions Discharge Activity: Return to Normal Activity Home Medications: Medications to take at Discharge Lisinopril [Zestril] 40 mg PO DAILY 09/20/16 cycloBENZAPRine HCl [Flexeril] 10 mg PO TID PRN 12/15/18 Atorvastatin Calcium [Lipitor] 10 mg PO QHS 04/03/19 Levofloxacin [Levaquin] 500 mg PO DAILY 3 Days #3 tablet 01/13/21 Omeprazole [Prilosec] 20 mg PO DAILY 01/13/21 Following Prescriptions Were Given to Patient: Levofloxacin [Levaquin] 500 mg PO DAILY 3 Days #3 tablet Transmission Status: Received by [id number] Primary Care Physician: Dameon Ny MD [Primary Care Provider] - Please follow up with your Primary Care Physician in: within 1-2 weeks Disposition: Home Minutes spent on discharge:: 40 Patient Condition:: Stable Medical Necessity - Tobacco Use Smoking Status: Former smoker Tobacco Use: Cigarettes Meaningful Use Info Meaningful Use Diagnoses (Choose all that apply): None applicable Inpatient E&M: 63813 [facility]
--- NOTE | 2021-01-13 11:20 | RAD_ITS ---
STUDY: X-RAY CHEST REASON FOR EXAM: Female, 65 years old. SOB, tachypnea TECHNIQUE: Single AP portable view of the chest. COMPARISON: Comparison is made with prior study dated 12/30/2020. FINDINGS: EKG electrodes are seen. Hyperinflation. The lungs are clear. There is no demonstrated pleural abnormality. Normal size heart. Normal mediastinum and donna. Normal visualized pulmonary arteries. There is atherosclerotic tortuosity of the aortic arch and descending thoracic aorta. There are degenerative changes of the visualized thoracic spine. Normal visualized ribs, clavicles, and shoulders. There is no demonstrated abnormality of the visualized soft tissue structures of the upper abdomen. RAD/Chest 1 View (Portable) IMPRESSION: Hyperinflation. The lungs are clear. Electronically Signed: Horace Madlonado MD at 11:59 EDT , Service support ,
== END 2021-01-13 12:00 | disposition home or self-care (01) | DRG 872 ==
LOC: ED 02:09 → MS3 02:40
PROVIDERS: Admitting Provider Hospitalist; Emergency Provider Emergency Medicine; PCP Family Medicine; Visit Provider Internal Medicine
DX: A41.9 Sepsis, unspecified organism (principal); N30.00 Acute cystitis without hematuria; I12.9 Hypertensive chronic kidney disease with stage 1 through stage 4 chronic kidney disease, or unspecified chronic kidney disease; N18.31 Chronic kidney disease, stage 3a; E78.00 Pure hypercholesterolemia, unspecified; K21.9 Gastro-esophageal reflux disease without esophagitis; Z79.899 Other long term (current) drug therapy; Z87.440 Personal history of urinary (tract) infections; Z87.891 Personal history of nicotine dependence
CPT/HCPCS: 71045; 80048; 81001; 83605; 84443; 84484; 85025; 85379; 87040; 87086; 87088; 93005; 99285; J7030; A4216

== ENCOUNTER 2021-04-05 15:05 | Emergency (ER) | payer OTHER, SELFPAY ==
[2021-01-13 03:32] VITALS: BMI 24.3
[2021-04-05 15:05] VITALS: BP 129/88; PULSE 96; RESP 18; TEMP 36.4; O2SAT 95; BMI 23.3
--- NOTE | 2021-04-05 15:48 | RAD_ITS ---
STUDY: X-RAY - THORACIC SPINE REASON FOR EXAM: Female, 66 years old. fall TECHNIQUE: 3 view(s) of the thoracic spine were obtained. COMPARISON: None. FINDINGS: Normal kyphosis of the thoracic spine. There is minor levoscoliosis or splinting.. Normal thoracic vertebrae and endplates. Normal disc space heights. The soft tissue structures are unremarkable. RAD/Thoracic Spine 2 Views IMPRESSION: Minor levoscoliosis or splinting secondary to muscle spasm. No acute fracture or other significant bony pathology Electronically Signed: Jonah Deras MD at 16:26 EDT , Service support ,
[2021-04-05] MEDS: Lidocaine 5% Patch 1 PATCH TOPICAL (17:03)
[2021-04-05 17:06] VITALS: BP 120/88; PULSE 98; RESP 12; O2SAT 97
--- NOTE | 2021-04-05 23:05 | EDS_ITS ---
HPI HPI - Fall History of Present Illness Chief Complaint: Fall Informant: patient Occured/Mechanism Occurred: Today Pain/Injury Pain Location: back Current Severity: Mild Maximum Severity: Moderate Narrative Narrative: Patient presents secondary to upper back pain after a fall. Patient states she was walking down a ramp with some sandals on and slipped. She landed hard on her buttocks. She is complaining of pain to the upper thoracic spine region. Patient states she does have some back problems and sees a chiropractor regularly. She denies striking her head or loss of consciousness. No paresthesias or weakness in the arms. [facility] Medical History GERD (gastroesophageal reflux disease) High cholesterol Hypertension Home Medications lisinopril [Zestril] 40 mg PO DAILY 09/20/16 [History Last Taken 01/12/21 04:00] cyclobenzaprine 10 mg PO TID PRN 12/15/18 [History Last Taken 04/02/19] atorvastatin 10 mg PO QHS 04/03/19 [History Last Taken 01/11/21 18:30] omeprazole 20 mg PO DAILY 01/13/21 [History Last Taken Unknown] lidocaine [Lidoderm] 1 patch TOPICAL DAILY #4 ea 04/05/21 [Rx Last Taken Unknown] Allergy/AdvReac Type Severity Reaction Status Date / Time ampicillin Allergy Hives Verified 04/05/21 15:07 cefadroxil hydrate Allergy Hives Verified 04/05/21 15:07 [From Duricef] cephalexin monohydrate Allergy Hives Verified 04/05/21 15:07 [From Keflex] codeine Allergy Hives Verified 04/05/21 15:07 erythromycin base Allergy Hives Verified 04/05/21 15:07 [Erythromycin Base] guaifenesin [From Entex LA] Allergy Hives Verified 04/05/21 15:07 hydrocodone bitartrate Allergy Hives Verified 04/05/21 15:07 [From Vicodin] hydrocortisone Allergy Hives Verified 04/05/21 15:07 [From Cortizone-10] Iodinated Contrast Media Allergy Hives Verified 04/05/21 15:07 [CONTRASTS] iodine Allergy Hives Verified 04/05/21 15:07 morphine Allergy Hives Verified 04/05/21 15:07 Penicillins Allergy Shortness Verified 04/05/21 15:07 of breath phenylephrine HCl Allergy Hives Verified 04/05/21 15:07 [From Entex LA] phenylpropanolamine HCl Allergy Hives Verified 04/05/21 15:07 [From Entex LA] Sulfa (Sulfonamide Allergy Shortness Verified 04/05/21 15:07 Antibiotics) of breath aspirin AdvReac Itching Verified 04/05/21 15:07 Social History Smoking Status: Former smoker ROS ROS ED Constitutional Constitutional ED: Denies chills or fever(s) Eyes Eyes: Denies change in vision ENT ENT ED: Denies sore throat Cardiovascular Cardiovascular: Denies chest pain Respiratory/Chest Respiratory/Chest: Denies cough or dyspnea Gastrointestinal Gastrointestinal: Denies abdominal pain, diarrhea, nausea or vomiting Genitourinary Genitourinary ED: Denies dysuria Musculoskeletal Musculoskeletal: Reports back pain Integumentary Denies rash Neurologic Neurologic: Denies headache(s) or weakness Psychiatric Psychiatric: Denies anxiety or depression Endocrine Endocrinology: Denies polydipsia or polyuria Allergic/Immunologic Allergic/Immunologic ED: Denies urticaria EXAM Physical Exam Const Vital Signs: 04/05/21 15:05 04/05/21 15:18 04/05/21 17:06 Temperature 97.6 F L Temperature Source Temporal Pulse Rate 96 98 Respiratory Rate 18 12 Respiratory Effort Normal Non-Labored Blood Pressure 129/88 H 120/88 H Blood Pressure Mean 101 Pulse Ox 95 97 Oxygen Delivery Method Room Air Room Air Positive well nourished and well developed General Appearance ED: well developed HEENT Reports normocephalic and head/scalp atraumatic Eyes PERRL and EOMs intact bilaterally Neck supple Chest Wall inspection of chest normal and palpation of chest normal Resp normal respiratory effort and clear to auscultation bilaterally Cardio regular rate and regular rhythm GI normal to inspection, nondistended, normoactive bowel sounds Palpation: soft Back/Spine no CVA tenderness Back/Spine Narrative: Tenderness location of the upper thoracic spine, left paraspinal muscles. No abrasions or ecchymoses. Extremity normal to inspection Neuro oriented x3 and no sensory deficits noted Sensorium / Orientation: alert Motor Exam: strength 5/5 throughout Psych mental status grossly normal Skin no rashes or lesions noted MDM MDM MDM Narrative Medical decision making narrative: T-spine x-rays are obtained. Patient had taken Tylenol prior to arrival. Radiography Diagnostic Testing: Radiology Impression Thoracic Spine X-Ray 04/05/21 15:48 IMPRESSION: Minor levoscoliosis or splinting secondary to muscle spasm. No acute fracture or other significant bony pathology Electronically Signed: Jonah Deras MD at 16:26 EDT , Service support , Treatment and Re-Evaluation Comments:: X-rays per my interpretation reveal chronic changes, no acute fracture. Radiology interpretation is reviewed. Patient does have some evidence of spasm. She is already on Flexeril and is given Lidoderm patches here. Discharge Plan Triage Chief Complaint: Fall ED Provider: Bel Tran Dx/Rx/DC Orders Clinical Impression: Fall, Spasm of thoracic back muscle Instructions: ED Mechanical Fall, ED Muscle Spasm Prescriptions: New lidocaine [Lidoderm] 5 % adhesive patch,medicated 1 patch topical DAILY Qty: 4 RF: 0 No Action lisinopril [Zestril] 10 MG tablet 40 mg PO DAILY RF: 0 cyclobenzaprine 10 MG tablet 10 mg PO TID PRN (Reason: back spasms) RF: 0 atorvastatin 20 MG tablet 10 mg PO QHS RF: 0 omeprazole 20 MG capsule 20 mg PO DAILY RF: 0 Primary Care Provider: Dameon Ny Referrals: Dameon Ny MD [Primary Care Provider] - 1 Week if not improving Disposition Disposition: Home, Self Care Discharge Date/Time: 04/05/21 17:06
== END 2021-04-05 17:06 | disposition home or self-care (01) ==
PROVIDERS: Emergency Provider Emergency Medicine; PCP Family Medicine
DX: M62.830 Muscle spasm of back (principal); Z87.891 Personal history of nicotine dependence
CPT/HCPCS: 72070; 99282

== ENCOUNTER 2021-04-26 07:04 | Emergency (ER) | payer SELFPAY ==
[2021-04-26 07:05] VITALS: BP 135/90; PULSE 86; RESP 15; TEMP 36.6; O2SAT 98; BMI 22.8
[2021-04-26 07:41] LABS: Absolute Lymphocyte Count 1.68 X10^3/uL (0.83-4.51); Absolute Neutrophil Count 4.5 X10^3/uL (2.0-7.7); Basophil# 0.03 X10^3/uL; Basophil% 0.4 % (0-1); Eosinophil# 0.05 X10^3/uL; Eosinophils% 0.7 % (0-5); Hematocrit 48.2 % (37-47); Hemoglobin 15.9 g/dL (12.0-15.0); Lymphocyte # 1.68 X10^3/ul (0.83-4.51); Mean Corpuscular Hgb 31.6 pg (27.0-32.0); Mean Corpuscular Volume 95.8 fL (81-99); Mean Platelet Vol. 10.8 fl (6.2-12.0); Monocyte# 0.42 X10^3/uL; Monocyte% 6.2 % (0-10); NRBC Flagged by Analyzer 0 % (0-5); Neutrophil # 4.54 X10^3/uL (2.7-7.7); Neutrophil % 67.6 % (47-70); Platelet Count 228 K/mm3 (150-450); RBC Distribution Width CV 12.9 % (11.6-14.6); Red Blood Count 5.03 M/mm3 (4.2-5.4); White Blood Count 6.7 K/mm3 (4.4-11.0)
[2021-04-26] MEDS: Mag Hydrox/Al Hydrox/Simeth 30 ML UDC PO (07:43)
[2021-04-26 07:57] LABS: ALB/GLOB Ratio 0.8 RATIO (0.9-2.4); AST(SGOT) 17 U/L (15-37); Alanine Aminotransfer ALT/SGPT 24 U/L (13-56); Albumin, Serum 3.5 g/dL (3.2-5.0); Alkaline Phosphatase 98 U/L (45-117); Anion Gap 3 (5-15); BUN 14 mg/dL (7-18); BUN/Creat Ratio 11.6 RATIO (10-20); Calcium,Total 9.3 mg/dL (8.5-10.1); Chloride 106 mmol/L (98-107); Creatinine, Serum 1.21 mg/dL (0.55-1.02); EST Glomerular Filtration Rate 47 mL/min (>60); Est Glom Filt Rate - Afr Amer 57 mL/min (>60); Estimated Creatinine Clearance 38.43 ml/min; Globulin 4.3 g/dL (2.2-4.2); Glucose 113 mg/dL (74-106); Lipase 183 U/L (73-393); Potassium 3.8 mmol/L (3.5-5.1); Protein, Total 7.8 g/dL (6.4-8.2); Sodium Level 139 mmol/L (136-145)
--- NOTE | 2021-04-26 08:56 | EDS_ITS ---
HPI HPI - GI History of Present Illness Chief Complaint: Abd Pain Informant: patient Abdominal Pain/Flank Pain Onset: Yesterday Context: Gradual Onset Timing: Continuous Quality: Burning Location: Epigastric Worsened by: Nothing Relieved by: Antacids Nausea/Vomiting/Emesis GI Symptom: Negative for Nausea and Vomiting Diarrhea/Melena/Hematochezia GI Symptom: Negative for Diarrhea, Melena and Hematochezia Narrative Narrative: Patient presents with epigastric abdominal pain that began last evening. Patient states it feels like a burning sensation. Patient states she has been out of her Pepcid. Patient states she took some Maalox last night which helped. Patient states her pain began again this morning. Patient denies any nausea or vomiting. Patient denies any diarrhea, melena, or hematochezia. Patient denies any dysuria or hematuria. [facility] Medical History (Updated 04/26/21 @ 09:[address] Pipe Abdi, DO) GERD (gastroesophageal reflux disease) High cholesterol Hypertension Home Medications lisinopril [Zestril] 40 mg PO DAILY 09/20/16 [History Last Taken 01/12/21 04:00] cyclobenzaprine 10 mg PO TID PRN 12/15/18 [History Last Taken 04/02/19] atorvastatin 10 mg PO QHS 04/03/19 [History Last Taken 01/11/21 18:30] famotidine [Pepcid] 20 mg PO BID #20 tab 04/26/21 [Rx Last Taken Unknown] Allergy/AdvReac Type Severity Reaction Status Date / Time ampicillin Allergy Hives Verified 04/26/21 07:07 cefadroxil hydrate Allergy Hives Verified 04/26/21 07:07 [From Duricef] cephalexin monohydrate Allergy Hives Verified 04/26/21 07:07 [From Keflex] codeine Allergy Hives Verified 04/26/21 07:07 erythromycin base Allergy Hives Verified 04/26/21 07:07 [Erythromycin Base] guaifenesin [From Entex LA] Allergy Hives Verified 04/26/21 07:07 hydrocodone bitartrate Allergy Hives Verified 04/26/21 07:07 [From Vicodin] hydrocortisone Allergy Hives Verified 04/26/21 07:07 [From Cortizone-10] Iodinated Contrast Media Allergy Hives Verified 04/26/21 07:07 [CONTRASTS] iodine Allergy Hives Verified 04/26/21 07:07 levofloxacin [From Levaquin] Allergy Hives Verified 04/26/21 07:07 morphine Allergy Hives Verified 04/26/21 07:07 nitrofurantoin Allergy Hives Verified 04/26/21 07:07 [From Macrobid] Penicillins Allergy Shortness Verified 04/26/21 07:07 of breath phenylephrine HCl Allergy Hives Verified 04/26/21 07:07 [From Entex LA] phenylpropanolamine HCl Allergy Hives Verified 04/26/21 07:07 [From Entex LA] Sulfa (Sulfonamide Allergy Shortness Verified 04/26/21 07:07 Antibiotics) of breath aspirin AdvReac Itching Verified 04/26/21 07:07 Surgical History (Updated 04/26/21 @ 08:[address] Pipe Abdi DO) History of section Social History Smoking Status: Former smoker ROS ROS ED Constitutional Constitutional ED: Denies chills or fever(s) Eyes Eyes: Denies blurry vision or change in vision ENT ENT ED: Denies rhinorrhea or sore throat Cardiovascular Cardiovascular: Denies chest pain or palpitations Respiratory/Chest Respiratory/Chest: Denies cough or dyspnea Gastrointestinal Gastrointestinal: Reports abdominal pain; Denies nausea or vomiting Genitourinary Genitourinary ED: Denies dysuria or hematuria Musculoskeletal Musculoskeletal: Reports back pain; Denies neck pain Integumentary Denies abscess or rash Neurologic Neurologic: Denies headache(s) or weakness Allergic/Immunologic Allergic/Immunologic ED: Denies mouth swelling or urticaria EXAM Physical Exam Const Vital Signs: 04/26/21 07:05 Temperature 97.9 F Temperature Source Temporal Pulse Rate 86 Respiratory Rate 15 Blood Pressure 135/90 H Blood Pressure Mean 105 Pulse Ox 98 Oxygen Delivery Method Room Air Positive well nourished and well developed General Appearance ED: well developed HEENT Reports moist mucous membranes Neck supple and no JVD Resp normal respiratory effort and clear to auscultation bilaterally Cardio regular rate, regular rhythm and no murmurs GI normal to inspection, nondistended, normoactive bowel sounds and non-distended Auscultation: normoactive bowel sounds Palpation: soft and tender epigastric (Mild); Negative for guarding or rebound tenderness present Extremity normal to inspection General Extremety ED: Negative for edema or tenderness General Extremity: Negative for edema Neuro oriented x3, CN's II-XII intact bilaterally and no sensory deficits noted Sensorium / Orientation: alert Motor Exam: strength 5/5 throughout Psych mental status grossly normal Skin no rashes or lesions noted MDM MDM MDM Narrative Medical decision making narrative: Patient was given a GI cocktail here. CBC and comprehensive metabolic profile were within normal limits. Lipase was normal. Patient is feeling better on reevaluation. Patient was given a prescription for Pepcid. Patient was instructed to follow-up with her primary care physician in 5 to 7 days. Patient understood and was agreeable with the plan. All questions were answered. Lab Data Attestation: I reviewed the patient's lab results. Labs: Laboratory Results - last 24 hr 04/26/21 04/26/21 07:33 07:33 WBC 6.7 RBC 5.03 Hgb 15.9 H Hct 48.2 H MCV 95.8 MCH 31.6 MCHC 33.0 RDW Std Deviation 46.0 H RDW Coeff of Eduardo 12.9 Plt Count 228 MPV 10.8 Immature Gran % (Auto) 0.100 Neut % (Auto) 67.6 Lymph % (Auto) 25.0 [place] % (Auto) 6.2 Eos % (Auto) 0.7 Baso % (Auto) 0.4 Absolute Neuts (auto) 4.5 Absolute Lymphs (auto) 1.68 Nucleated RBC % 0 Sodium 139 Potassium 3.8 Chloride 106 Carbon Dioxide 30.0 Anion Gap 3 L BUN 14 Creatinine 1.21 H Estim Creat Clear Calc 38.43 Est GFR (MDRD) Af Amer 57 L Est GFR (MDRD) Non-Af 47 L BUN/Creatinine Ratio 11.6 Glucose 113 H Calcium 9.3 Total Bilirubin 0.60 AST 17 ALT 24 Alkaline Phosphatase 98 Total Protein 7.8 Albumin 3.5 Globulin 4.3 H Albumin/Globulin Ratio 0.8 L Lipase 183 Discharge Plan Triage Chief Complaint: Abd Pain ED Provider: Pipe Abdi Dx/Rx/DC Orders Clinical Impression: Gastroesophageal reflux disease Instructions: ED GERD (Adult) Prescriptions: New famotidine [Pepcid] 20 mg tablet 20 mg PO BID Qty: 20 RF: 0 No Action lisinopril [Zestril] 10 MG tablet 40 mg PO DAILY RF: 0 cyclobenzaprine 10 MG tablet 10 mg PO TID PRN (Reason: back spasms) RF: 0 atorvastatin 20 MG tablet 10 mg PO QHS RF: 0 Primary Care Provider: Dameon Ny Referrals: Dameon Ny MD [Primary Care Provider] - 5-7 Days Disposition Disposition: Home, Self Care
[2021-04-26 09:33] VITALS: PULSE 88; RESP 16; O2SAT 97
== END 2021-04-26 09:34 | disposition home or self-care (01) ==
PROVIDERS: Emergency Provider Emergency Medicine; PCP Family Medicine
DX: K21.9 Gastro-esophageal reflux disease without esophagitis (principal); I10 Essential (primary) hypertension; E78.00 Pure hypercholesterolemia, unspecified; Z79.82 Long term (current) use of aspirin; Z79.899 Other long term (current) drug therapy; Z87.891 Personal history of nicotine dependence
CPT/HCPCS: 80053; 83690; 85025; 99284; A4216

== ENCOUNTER 2021-06-04 00:36 | Emergency (ER) | payer SELFPAY ==
[2021-06-04 00:36] VITALS: BP 153/92; PULSE 77; RESP 16; TEMP 36.7; O2SAT 97; BMI 22.6
--- NOTE | 2021-06-04 00:58 | EX.ED.GENINJ ---
HPI History of Present Illness Chief Complaint: Other, Pain/Inj Informant: patient and spouse/S.O. Narrative Narrative: Patient's states that she pulled and then pushed a board that is in a chicken coop the other day. She has had some pain of the right side of her ribs since then. She did not fall or have an impact. She states it hurts on the right. It hurts mostly when she twists turning her shoulders and face toward the right. She is not short of breath. It is not pleuritic. There is no nausea vomiting diaphoresis. Is well localized in the posterior right and lateral aspect. She does not feel ill. She does have a history of arthritis. She has had thoracic strains and other injury similar to this before. She is seeing chiropractor a lot for this. She has had no recent travel, surgery, immobilization, personal family history of DVT or PE. She is a former smoker. [facility] Medical History Arthritis GERD (gastroesophageal reflux disease) High cholesterol Hypertension Home Medications lisinopril [Zestril] 40 mg PO DAILY 09/20/16 [History Last Taken 01/12/21 04:00] cyclobenzaprine 10 mg PO TID PRN 12/15/18 [History Last Taken 04/02/19] atorvastatin 10 mg PO QHS 04/03/19 [History Last Taken 01/11/21 18:30] famotidine [Pepcid] 20 mg PO BID #20 tab 04/26/21 [Rx Last Taken Unknown] Allergy/AdvReac Type Severity Reaction Status Date / Time ampicillin Allergy Hives Verified 06/04/21 00:40 cefadroxil hydrate Allergy Hives Verified 06/04/21 00:40 [From Duricef] cephalexin monohydrate Allergy Hives Verified 06/04/21 00:40 [From Keflex] codeine Allergy Hives Verified 06/04/21 00:40 erythromycin base Allergy Hives Verified 06/04/21 00:40 [Erythromycin Base] guaifenesin [From Entex LA] Allergy Hives Verified 06/04/21 00:40 hydrocodone bitartrate Allergy Hives Verified 06/04/21 00:40 [From Vicodin] hydrocortisone Allergy Hives Verified 06/04/21 00:40 [From Cortizone-10] Iodinated Contrast Media Allergy Hives Verified 06/04/21 00:40 [CONTRASTS] iodine Allergy Hives Verified 06/04/21 00:40 levofloxacin [From Levaquin] Allergy Hives Verified 06/04/21 00:40 morphine Allergy Hives Verified 06/04/21 00:40 nitrofurantoin Allergy Hives Verified 06/04/21 00:40 [From Macrobid] Penicillins Allergy Shortness Verified 06/04/21 00:40 of breath phenylephrine HCl Allergy Hives Verified 06/04/21 00:40 [From Entex LA] phenylpropanolamine HCl Allergy Hives Verified 06/04/21 00:40 [From Entex LA] Sulfa (Sulfonamide Allergy Shortness Verified 06/04/21 00:40 Antibiotics) of breath aspirin AdvReac Itching Verified 06/04/21 00:40 Surgical History History of section Social History Smoking Status: Former smoker ROS ROS ED Constitutional Constitutional ED: Denies chills or fever(s) ENT ENT ED: Denies rhinorrhea or sore throat Cardiovascular Cardiovascular: Reports other Details: No chest pain other than as in history of present illness. No pressure or discomfort anteriorly. ; Denies chest pain or palpitations Respiratory/Chest Respiratory/Chest: Reports other Details: See history of present illness. ; Denies cough, dyspnea, dyspnea on exertion or sputum Gastrointestinal Gastrointestinal: Denies abdominal pain, nausea or vomiting Genitourinary Genitourinary ED: Denies dysuria or hematuria Musculoskeletal Musculoskeletal: Reports other Details: See history of present illness. Integumentary Reports other Details: No vesicles, rash or itching. ; Denies rash Neurologic Neurologic: Denies headache(s) Hematologic/Lymphatic Hematologic/Lymphatic: Denies easy bleeding or easy bruising Allergic/Immunologic Allergic/Immunologic ED: Denies urticaria EXAM Physical Exam Const Vital Signs: 06/04/21 00:36 Temperature 98.1 F Temperature Source Temporal Pulse Rate 77 Respiratory Rate 16 Blood Pressure 153/92 H Blood Pressure Mean 112 Pulse Ox 97 Oxygen Delivery Method Room Air Positive well nourished and well developed General Appearance ED: well developed HEENT atraumatic Neck full ROM Neck Narrative: No pain with range of motion. General: Negative for tenderness Chest Wall inspection of chest normal Chest Narrative: I see no rash. No erythema. No subcu air. There is isolated tenderness at lower ribs at the posterior axillary line and just behind that. This is well localized. No swelling. No crepitance with a deep breath. Resp normal respiratory effort and clear to auscultation bilaterally Cardio regular rhythm Rate: regular rate GI normal to inspection, nondistended, normoactive bowel sounds and non-tender Palpation: soft Back/Spine normal to inspection and no thoracic nor lumbar tenderness Thoracic Spine / Upper Back: Negative for thoracic spinal tenderness Extremity normal to inspection and full ROM General Extremety ED: Negative for tenderness Neuro oriented x3 Sensorium / Orientation: alert Psych mental status grossly normal Skin no rashes or lesions noted MDM MDM MDM Narrative Medical decision making narrative: X-rays looked at by me and read by radiology shows no Sign of acute process. Patient's recheck. She is comfortable. This patient had onset of pain with pulling and pushing a board. She has isolated focal pain. It reproduces with tenderness or motion. She has no other symptoms to point cardiac disease. For these reasons we did not pursue a more comprehensive work-up. Patient is comfortable taking Tylenol at home. She states that is all she can really take. We also discussed ice on the area. We also discussed that if she gets any other symptoms such as trouble breathing, nausea, vomiting coughing fevers generalized weakness or any other concerns she should return. Radiography Diagnostic Testing: Radiology Impression Ribs w/Chest X-Ray 06/04/21 01:12 IMPRESSION: RIBS: Normal x-ray examination of the ribs. CHEST: No demonstrated acute cardiopulmonary process. Electronically Signed: Saranya Alexander MD at 2:01 EDT Tel , Service support , Discharge Plan Triage Chief Complaint: Other, Pain/Inj ED Provider: Lizandro Gunn Dx/Rx/DC Orders Clinical Impression: Chest wall muscle strain Instructions: ED Thoracic Spine Strain Prescriptions: No Action lisinopril [Zestril] 10 MG tablet 40 mg PO DAILY RF: 0 cyclobenzaprine 10 MG tablet 10 mg PO TID PRN (Reason: back spasms) RF: 0 atorvastatin 20 MG tablet 10 mg PO QHS RF: 0 famotidine [Pepcid] 20 mg tablet 20 mg PO BID Qty: 20 RF: 0 Primary Care Provider: Dameon Ny Referrals: Dameon Ny MD [Primary Care Provider] - 3-5 Days if not improving Disposition Disposition: Home, Self Care
--- NOTE | 2021-06-04 01:12 | RAD_ITS ---
STUDY: X-RAY - UNILATERAL RIBS ( RIGHT ) WITH CHEST REASON FOR EXAM: Female, 66 years old. trauma, pain TECHNIQUE - RIBS: 4 view(s) of the ribs. TECHNIQUE - CHEST: Single AP portable view of the chest. COMPARISON: None. FINDINGS - RIBS: Normal visualized ribs without a demonstrated fracture. FINDINGS - CHEST: The lungs are clear and expanded. Subsegmental atelectases are noted in the left lung base. Calcified granuloma in the right lung base. There is no demonstrated pleural abnormality. Normal size heart. Normal mediastinum and donna. Normal visualized pulmonary arteries. Normal visualized aortic arch and descending thoracic aorta. Normal visualized thoracic spine. Normal visualized ribs, clavicles, and shoulders. There is no demonstrated abnormality of the visualized soft tissue structures of the upper abdomen. RAD/Ribs Uni Min 3V w/PA Chest IMPRESSION: RIBS: Normal x-ray examination of the ribs. CHEST: No demonstrated acute cardiopulmonary process. Electronically Signed: Saranya Alexander MD at 2:01 EDT Tel , Service support ,
== END 2021-06-04 02:19 | disposition home or self-care (01) ==
PROVIDERS: Emergency Provider Emergency Medicine; PCP Family Medicine
DX: S29.011A Strain of muscle and tendon of front wall of thorax, initial encounter (principal); M19.90 Unspecified osteoarthritis, unspecified site; K21.9 Gastro-esophageal reflux disease without esophagitis; E78.00 Pure hypercholesterolemia, unspecified; I10 Essential (primary) hypertension; Z79.899 Other long term (current) drug therapy; Z87.891 Personal history of nicotine dependence; X50.0XXA Overexertion from strenuous movement or load, initial encounter; Y93.89 Activity, other specified; Y92.008 Other place in unspecified non-institutional (private) residence as the place of occurrence of the external cause; Y99.8 Other external cause status
CPT/HCPCS: 71101; 99281

== ENCOUNTER 2021-06-16 19:48 | Emergency (ER) | payer SELFPAY ==
[2021-06-16 19:49] VITALS: BP 135/101; PULSE 124; RESP 16; TEMP 36.8; O2SAT 96; BMI 22.6
--- NOTE | 2021-06-16 21:33 | EDS_ITS ---
HPI History of Present Illness Chief Complaint: Back Narrative Narrative: Patient twisted the wrong way and strained her thoracic right side of her back yesterday. No other injuries. No radiation of the pain. She feels muscle spasm in that region. [facility] Medical History Arthritis GERD (gastroesophageal reflux disease) High cholesterol Hypertension Home Medications lisinopril [Zestril] 40 mg PO DAILY 09/20/16 [History Last Taken 01/12/21 04:00] cyclobenzaprine 10 mg PO TID PRN 12/15/18 [History Last Taken 04/02/19] atorvastatin 10 mg PO QHS 04/03/19 [History Last Taken 01/11/21 18:30] famotidine [Pepcid] 20 mg PO BID #20 tab 04/26/21 [Rx Last Taken Unknown] tizanidine 2 mg PO BID PRN #7 tab 06/16/21 [Rx Last Taken Unknown] Allergy/AdvReac Type Severity Reaction Status Date / Time ampicillin Allergy Hives Verified 06/16/21 19:51 cefadroxil hydrate Allergy Hives Verified 06/16/21 19:51 [From Duricef] cephalexin monohydrate Allergy Hives Verified 06/16/21 19:51 [From Keflex] codeine Allergy Hives Verified 06/16/21 19:51 erythromycin base Allergy Hives Verified 06/16/21 19:51 [Erythromycin Base] guaifenesin [From Entex LA] Allergy Hives Verified 06/16/21 19:51 hydrocodone bitartrate Allergy Hives Verified 06/16/21 19:51 [From Vicodin] hydrocortisone Allergy Hives Verified 06/16/21 19:51 [From Cortizone-10] Iodinated Contrast Media Allergy Hives Verified 06/16/21 19:51 [CONTRASTS] iodine Allergy Hives Verified 06/16/21 19:51 levofloxacin [From Levaquin] Allergy Hives Verified 06/16/21 19:51 morphine Allergy Hives Verified 06/16/21 19:51 nitrofurantoin Allergy Hives Verified 06/16/21 19:51 [From Macrobid] Penicillins Allergy Shortness Verified 06/16/21 19:51 of breath phenylephrine HCl Allergy Hives Verified 06/16/21 19:51 [From Entex LA] phenylpropanolamine HCl Allergy Hives Verified 06/16/21 19:51 [From Entex LA] Sulfa (Sulfonamide Allergy Shortness Verified 06/16/21 19:51 Antibiotics) of breath aspirin AdvReac Itching Verified 06/16/21 19:51 Surgical History History of section Social History Smoking Status: Former smoker ROS ROS ED ROS Narrative Past medical history: Reviewed, history of thoracic strains otherwise she is relatively healthy. Medications: Reviewed Social history: Noncontributory Review of systems: All systems negative except as indicated General: No fever Neck: No neck pain Cardiovascular: No chest pain Respiratory: Negative Gastrointestinal: No abdominal pain, nausea vomiting or diarrhea Musculoskeletal: No extremity injury Skin: No abrasion Back: Thoracic pain as in HPI Neurological: No memory loss, confusion or any focal weakness Hematologic: No easy bleeding or easy bruising EXAM Physical Exam Narrative Exam Narrative: Vitals reviewed General: Patient appears in some discomfort HEENT: Moist mucous membranes Neck: Nontender Cardiovascular normal heart rate Respiratory: No respiratory difficulty speaking in full sentences Abdomen: Soft and nontender, there is no suprapubic mass or pain Back: There is some tenderness over right paraspinal and trapezius region. There is at least 2 trigger point regions that are quite tender. Extremities: Moves all extremities without joint pain or signs of trauma Neurological: Normal neurological exam Skin: No rash Psychiatric: Slightly anxious. Const Vital Signs: 06/16/21 19:49 Temperature 98.2 F Temperature Source Temporal Pulse Rate 124 H Respiratory Rate 16 Blood Pressure 135/101 H Blood Pressure Mean 112 Pulse Ox 96 Oxygen Delivery Method Room Air MDM MDM MDM Narrative Medical decision making narrative: Patient has a thoracic strain I will treat as such. Discharge Plan Triage Chief Complaint: Back ED Provider: Parish Valenzuela Dx/Rx/DC Orders Clinical Impression: Acute thoracic myofascial strain Instructions: ED Thoracic Spine Strain Prescriptions: New tizanidine 2 mg tablet 2 mg PO BID PRN (Reason: muscle spasticity) Qty: 7 RF: 0 No Action lisinopril [Zestril] 10 MG tablet 40 mg PO DAILY RF: 0 cyclobenzaprine 10 MG tablet 10 mg PO TID PRN (Reason: back spasms) RF: 0 atorvastatin 20 MG tablet 10 mg PO QHS RF: 0 famotidine [Pepcid] 20 mg tablet 20 mg PO BID Qty: 20 RF: 0 Primary Care Provider: Dameon Ny Referrals: Dameon Ny MD [Primary Care Provider] - 2 Days Disposition Disposition: Home, Self Care
== END 2021-06-16 21:51 | disposition home or self-care (01) ==
PROVIDERS: Emergency Provider Emergency Medicine; PCP Family Medicine
DX: S29.012A Strain of muscle and tendon of back wall of thorax, initial encounter (principal); X50.1XXA Overexertion from prolonged static or awkward postures, initial encounter; Y93.9 Activity, unspecified; Y92.9 Unspecified place or not applicable; Y99.9 Unspecified external cause status; I10 Essential (primary) hypertension; E78.00 Pure hypercholesterolemia, unspecified; K21.9 Gastro-esophageal reflux disease without esophagitis; M19.90 Unspecified osteoarthritis, unspecified site; Z79.82 Long term (current) use of aspirin; Z79.899 Other long term (current) drug therapy; Z87.891 Personal history of nicotine dependence
CPT/HCPCS: 99282

== ENCOUNTER 2021-07-05 00:42 | Emergency (ER) | payer SELFPAY ==
[2021-07-05 00:44] VITALS: BP 135/75; PULSE 83; PULSE 95; RESP 16; TEMP 37.1; O2SAT 98; BMI 22.5
[2021-07-05 00:46] VITALS: BP 135/75; PULSE 85; RESP 17; TEMP 37.1; O2SAT 98
[2021-07-05 01:14] LABS: Mucous, Urine 0 SEEN /hpf (<or=2+)
--- NOTE | 2021-07-05 01:38 | ED.VIS.FEGU ---
HPI HPI - Female History of Present Illness Chief Complaint: Complaint Informant: patient Pain Maximum Severity: Mild Associated Symptoms Associated Symptoms: Positive for Dysuria; Negative for Hematuria Narrative Narrative: 58-year-old female history of UTIs last one several months ago, renal insufficiency and hypertension. She states that yesterday she started having mild dysuria. No fever or chills. Mild suprapubic discomfort. She denies any vomiting or diarrhea nor fever. No back pain. Prior similar symptoms: Yes Recent Illness/Hospitalization: No PFSH PFSH Medical History Arthritis GERD (gastroesophageal reflux disease) High cholesterol History of recurrent UTI (urinary tract infection) Hypertension Home Medications lisinopril [Zestril] 40 mg PO DAILY 09/20/16 [History Last Taken 01/12/21 04:00] cyclobenzaprine 10 mg PO TID PRN 12/15/18 [History Last Taken 04/02/19] atorvastatin 10 mg PO QHS 04/03/19 [History Last Taken 01/11/21 18:30] famotidine [Pepcid] 20 mg PO BID #20 tab 04/26/21 [Rx Last Taken Unknown] tizanidine 2 mg PO BID PRN #7 tab 06/16/21 [Rx Last Taken Unknown] doxycycline hyclate 100 mg PO BID 10 Days #20 cap 07/05/21 [Rx Last Taken Unknown] Allergy/AdvReac Type Severity Reaction Status Date / Time ampicillin Allergy Hives Verified 07/05/21 00:47 cefadroxil hydrate Allergy Hives Verified 07/05/21 00:47 [From Duricef] cephalexin monohydrate Allergy Hives Verified 07/05/21 00:47 [From Keflex] codeine Allergy Hives Verified 07/05/21 00:47 erythromycin base Allergy Hives Verified 07/05/21 00:47 [Erythromycin Base] guaifenesin [From Entex LA] Allergy Hives Verified 07/05/21 00:47 hydrocodone bitartrate Allergy Hives Verified 07/05/21 00:47 [From Vicodin] hydrocortisone Allergy Hives Verified 07/05/21 00:47 [From Cortizone-10] Iodinated Contrast Media Allergy Hives Verified 07/05/21 00:47 [CONTRASTS] iodine Allergy Hives Verified 07/05/21 00:47 levofloxacin [From Levaquin] Allergy Hives Verified 07/05/21 00:47 morphine Allergy Hives Verified 07/05/21 00:47 nitrofurantoin Allergy Hives Verified 07/05/21 00:47 [From Macrobid] Penicillins Allergy Shortness Verified 07/05/21 00:47 of breath phenylephrine HCl Allergy Hives Verified 07/05/21 00:47 [From Entex LA] phenylpropanolamine HCl Allergy Hives Verified 07/05/21 00:47 [From Entex LA] Sulfa (Sulfonamide Allergy Shortness Verified 07/05/21 00:47 Antibiotics) of breath aspirin AdvReac Itching Verified 07/05/21 00:47 Surgical History History of section Social History Smoking Status: Former smoker ROS ROS ED ROS Narrative Denies recent illness other than mild dysuria. Review of Systems ROS Unobtainable: Denies due to encephalopathy Constitutional Constitutional ED: Denies anorexia Eyes Eyes: Denies blindness ENT ENT ED: Denies change in voice Cardiovascular Cardiovascular: Reports abdominal pain Respiratory/Chest Respiratory/Chest: Denies change in mental status or chest congestion Gastrointestinal Gastrointestinal: Reports abdominal pain Genitourinary Genitourinary ED: Reports dysuria Musculoskeletal Musculoskeletal: Denies deformity or difficulty walking Integumentary Reports none; Denies Abrasions Psychiatric Psychiatric: Denies auditory hallucinations Endocrine Endocrinology: Reports none; Denies deepening of the voice Hematologic/Lymphatic Hematologic/Lymphatic: Reports none; Denies lymphadenopathy Allergic/Immunologic Allergic/Immunologic ED: Denies lip swelling or mouth swelling EXAM Physical Exam Narrative Exam Narrative: 66-year-old female no acute distress. Vital signs stable afebrile. Lungs are clear. Heart regular rhythm. Abdomen soft nondistended normal bowel sounds no peritoneal signs. Really no tenderness. She points to the suprapubic region says where she has some discomfort but is not reproducibly tender. Right upper and lower quadrants are unremarkable no obvious pulsatile mass. Moving all 4 extremities. No edema. Back nontender no CVA tenderness. Neurologically she is awake and alert with no focal motor deficits. Const Vital Signs: 07/05/21 00:44 07/05/21 00:46 Temperature 98.7 F 98.7 F Temperature Source Temporal Temporal Pulse Rate 83 85 Respiratory Rate 16 17 Blood Pressure 135/75 H 135/75 H Blood Pressure Mean 95 95 Pulse Ox 98 98 Oxygen Delivery Method Room Air Positive well nourished, well developed, alert, oriented x3, no apparent distress, average body habitus, no limitations and healthy appearing; Negative for obese, cachectic, contractures or unkempt General Appearance ED: well developed; Negative for unkempt, cachectic or contractures Nutritional Appearance: Negative for cachectic or obese HEENT Reports normocephalic, head/scalp atraumatic and moist mucous membranes Eyes PERRL and EOMs intact bilaterally Neck full ROM, No nuchal rigidity, no lymphadenopathy, supple, no meningeal signs and no JVD Lymph Lymphatic: no lymphadenopathy noted and no lymphedema noted; Negative for lymphedema or lymphadenopathy Chest Wall inspection of chest normal and palpation of chest normal Resp normal respiratory effort, normal air movement, no retractions, no use of accessory muscles and clear to auscultation bilaterally Cardio regular rate, regular rhythm, S1 normal heart sound, S2 normal heart sound and no murmurs Back/Spine no CVA tenderness Extremity normal to inspection, no calf tenderness and no pedal edema Neuro oriented x3, CN's II-XII intact bilaterally, moves all extremities and no focal motor deficits Psych mental status grossly normal, thought process normal, cooperative, affect normal, speech normal and activity/motor behavior normal Appearance: Negative for unkempt Skin no rashes or lesions noted and no wounds MDM MDM MDM Narrative Medical decision making narrative: 66-year-old female complaining of dysuria mild suprapubic discomfort. Denies vomiting diarrhea or fever. Exam benign. Screening labs and UA will be obtained. Repeat exam unchanged. Patient doing well at 2:07 AM. She will be discharged home with a prescription for doxycycline which she states her primary care physician is using it is worked well. She knows a urine culture is pending. Lab Data Attestation: I reviewed the patient's lab results. Lab results narrative: CBC unremarkable with a white count of 5 and hemoglobin of 14. Chemistries unremarkable with a normal gap of 5. Creatinine was 1.1. Urine showed 10-25 white cells and 1+ bacteria be sent for culture. There were no nitrites or any significant red cells. Labs: Laboratory Results - last 24 hr 07/05/21 07/05/21 07/05/21 00:45 00:45 00:45 WBC 5.7 RBC 4.52 Hgb 14.4 Hct 43.9 MCV 97.1 MCH 31.9 MCHC 32.8 RDW Std Deviation 47.4 H RDW Coeff of Eduardo 13.3 Plt Count 274 MPV 11.7 Immature Gran % (Auto) 0.200 Neut % (Auto) 44.5 L Lymph % (Auto) 42.3 H [place] % (Auto) 10.8 H Eos % (Auto) 1.7 Baso % (Auto) 0.5 Absolute Neuts (auto) 2.5 Absolute Lymphs (auto) 2.42 Nucleated RBC % 0 Sodium 141 Potassium 4.0 Chloride 107 Carbon Dioxide 29.0 Anion Gap 5 BUN 9 Creatinine 1.11 H Estim Creat Clear Calc 41.89 Est GFR (MDRD) Af Amer 63 Est GFR (MDRD) Non-Af 52 L BUN/Creatinine Ratio 8.1 L Glucose 99 Calcium 9.3 Urine Color Yellow Urine Clarity Clear Urine pH 7.0 Ur Specific [place] 1.005 Urine Protein Negative Urine Glucose (UA) Normal Urine Ketones Negative Urine Occult Blood 25 H Urine Nitrite Negative Urine Bilirubin Negative Urine Urobilinogen Normal Ur Leukocyte Esterase 500 H Urine RBC 0-5 SEEN Urine WBC 10-25 SEEN Ur Squamous Epith Cells 0-5 SEEN Urine Bacteria 1+ Urine Mucus 0 SEEN Urinalysis looks infected with Discharge Plan Triage Chief Complaint: Complaint ED Provider: Michael Jesus Dx/Rx/DC Orders Clinical Impression: Cystitis Instructions: ED CYSTITIS Female Adult Prescriptions: New doxycycline hyclate 100 mg capsule 100 mg PO BID 10 Days Qty: 20 RF: 0 No Action lisinopril [Zestril] 10 MG tablet 40 mg PO DAILY RF: 0 cyclobenzaprine 10 MG tablet 10 mg PO TID PRN (Reason: back spasms) RF: 0 atorvastatin 20 MG tablet 10 mg PO QHS RF: 0 famotidine [Pepcid] 20 mg tablet 20 mg PO BID Qty: 20 RF: 0 tizanidine 2 mg tablet 2 mg PO BID PRN (Reason: muscle spasticity) Qty: 7 RF: 0 Primary Care Provider: Dameon Ny Referrals: Dameon Ny MD [Primary Care Provider] - 1 Week Activity Restrictions/Additional Instructions: You may have another urinary tract infection. You will be started on doxycycline 1 pill twice a day for 10 days. Prescription has been sent to your pharmacy. A urine culture was sent the results to be back in 48 hours your doctor can check the results and make sure 1 you have an infection and 2 that is sensitive to the antibiotic. Plenty of fluids and rest. Cranberry juice. Follow-up with your doctor. Disposition Disposition: Home, Self Care
[2021-07-05 01:46] LABS: Color, Urine Yellow (Yellow); Glucose, Dipstick Normal (Normal); Ketone-Dipstick Negative (Negative); Leukocyte Esterase-Dipstick 500 /ul (Negative); Nitrite-Dipstick Negative (Negative); Occult Blood-Urine 25 /ul (Negative); Protein-Dipstick Negative (Negative); Specific Gravity, Urine 1.005 (1.002-1.030); Urine Bilirubin Dipstick Negative (Negative); Urine Clarity Clear (Clear); Urine Urobilinogen Normal (Normal)
[2021-07-05 01:56] LABS: Bacteria 1+ /hpf (None Seen); Red Blood Cells-Urine 0-5 SEEN /hpf (0-5); Squamous Epithelial Cells - UA 0-5 SEEN /hpf (5-10); White Blood Cells 10-25 SEEN /hpf (0-5)
[2021-07-05 02:00] LABS: Anion Gap 5 (5-15); BUN 9 mg/dL (7-18); BUN/Creat Ratio 8.1 RATIO (10-20); Calcium,Total 9.3 mg/dL (8.5-10.1); Chloride 107 mmol/L (98-107); Creatinine, Serum 1.11 mg/dL (0.55-1.02); EST Glomerular Filtration Rate 52 mL/min (>60); Est Glom Filt Rate - Afr Amer 63 mL/min (>60); Estimated Creatinine Clearance 41.89 ml/min; Glucose 99 mg/dL (74-106); Sodium Level 141 mmol/L (136-145)
[2021-07-05 02:03] LABS: Absolute Lymphocyte Count 2.42 X10^3/uL (0.83-4.51); Absolute Neutrophil Count 2.5 X10^3/uL (2.0-7.7); Basophil# 0.03 X10^3/uL; Basophil% 0.5 % (0-1); Eosinophils% 1.7 % (0-5); Hematocrit 43.9 % (37-47); Hemoglobin 14.4 g/dL (12.0-15.0); Lymphocyte # 2.42 X10^3/ul (0.83-4.51); Lymphocyte % 42.3 % (19-41); Mean Corp Hgb Conc 32.8 g/dL (32-36); Mean Corpuscular Hgb 31.9 pg (27.0-32.0); Mean Corpuscular Volume 97.1 fL (81-99); Mean Platelet Vol. 11.7 fl (6.2-12.0); Monocyte# 0.62 X10^3/uL; Monocyte% 10.8 % (0-10); NRBC Flagged by Analyzer 0 % (0-5); Neutrophil # 2.54 X10^3/uL (2.7-7.7); Neutrophil % 44.5 % (47-70); Platelet Count 274 K/mm3 (150-450); RBC Distribution Width CV 13.3 % (11.6-14.6); RBC Distribution Width SD 47.4 fl (35.1-43.9); Red Blood Count 4.52 M/mm3 (4.2-5.4); White Blood Count 5.7 K/mm3 (4.4-11.0)
[2021-07-05 02:21] VITALS: BP 138/72; PULSE 77; RESP 16; O2SAT 97
[2021-07-05] MEDS: Doxycycline 100 MG CAPSULE PO (02:21)
== END 2021-07-05 02:24 | disposition home or self-care (01) ==
PROVIDERS: Emergency Provider Emergency Medicine; PCP Family Medicine
DX: N30.90 Cystitis, unspecified without hematuria (principal); E78.00 Pure hypercholesterolemia, unspecified; I10 Essential (primary) hypertension; K21.9 Gastro-esophageal reflux disease without esophagitis; Z87.440 Personal history of urinary (tract) infections; Z87.891 Personal history of nicotine dependence; Z79.899 Other long term (current) drug therapy
CPT/HCPCS: 80048; 81001; 85025; 87086; 87088; 99283; A4216

== ENCOUNTER 2021-07-18 07:15 | Emergency (ER) | payer SELFPAY ==
[2021-07-18 07:16] VITALS: BP 134/90; PULSE 101; RESP 16; TEMP 36.2; O2SAT 99; BMI 22.4
--- NOTE | 2021-07-18 07:25 | EKG12_ITS ---
Test Reason : CP Blood Pressure : / mmHG Vent. Rate : 092 BPM Atrial Rate : 092 BPM P-R Int : 164 ms QRS Dur : 074 ms QT Int : 356 ms P-R-T Axes : 037 000 053 degrees QTc Int : 440 ms Normal sinus rhythm Normal ECG Confirmed by BELLE CARPENTER, RHYS ([id number]), photo editor JIN LANG ([id number]) on 07/20/2021 8:54:41 AM Referred By: JENNIFER Confirmed By:RHYS ODONNELL MD
--- NOTE | 2021-07-18 07:26 | EDS_ITS ---
HPI History of Present Illness Chief Complaint: Chest Pain Detail of Chief Complaint: Chest pain that started last evening around 7 PM Informant: patient Onset/Context/Timing Quality: Positive for Burning Current Severity: 0/10 Maximum Severity: Mild Worsened By: Nothing Narrative Narrative: Patient presents to the emergency department with a burning pain in her left chest that she noticed around 7 PM last night. She noticed the pain while at rest. She describes a burning type sensation and discomfort with pushing on her rib above her breast. Patient states the pain resolved initially and she was able to sleep last evening but noticed the pain again this morning. She states the pain is intermittent last less than a minute. She denies any radiation of the pain. She denies nausea or vomiting. She denies diaphoresis. She denies recent travel or surgery. She has no heart history. No history of PE or DVT. She denies recent illness. She denies any trauma to her chest. Patient has a mammogram scheduled for August. [facility] Medical History Arthritis GERD (gastroesophageal reflux disease) High cholesterol History of recurrent UTI (urinary tract infection) Hypertension Home Medications lisinopril [Zestril] 40 mg PO DAILY 09/20/16 [History Last Taken 01/12/21 04:00] cyclobenzaprine 10 mg PO TID PRN 12/15/18 [History Last Taken 04/02/19] atorvastatin 10 mg PO QHS 04/03/19 [History Last Taken 01/11/21 18:30] famotidine [Pepcid] 20 mg PO BID #20 tab 04/26/21 [Rx Last Taken Unknown] tizanidine 2 mg PO BID PRN #7 tab 06/16/21 [Rx Last Taken Unknown] Allergy/AdvReac Type Severity Reaction Status Date / Time ampicillin Allergy Hives Verified 07/18/21 07:16 cefadroxil hydrate Allergy Hives Verified 07/18/21 07:16 [From Duricef] cephalexin monohydrate Allergy Hives Verified 07/18/21 07:16 [From Keflex] codeine Allergy Hives Verified 07/18/21 07:16 erythromycin base Allergy Hives Verified 07/18/21 07:16 [Erythromycin Base] guaifenesin [From Entex LA] Allergy Hives Verified 07/18/21 07:16 hydrocodone bitartrate Allergy Hives Verified 07/18/21 07:16 [From Vicodin] hydrocortisone Allergy Hives Verified 07/18/21 07:16 [From Cortizone-10] Iodinated Contrast Media Allergy Hives Verified 07/18/21 07:16 [CONTRASTS] iodine Allergy Hives Verified 07/18/21 07:16 levofloxacin [From Levaquin] Allergy Hives Verified 07/18/21 07:16 morphine Allergy Hives Verified 07/18/21 07:16 nitrofurantoin Allergy Hives Verified 07/18/21 07:16 [From Macrobid] Penicillins Allergy Shortness Verified 07/18/21 07:16 of breath phenylephrine HCl Allergy Hives Verified 07/18/21 07:16 [From Entex LA] phenylpropanolamine HCl Allergy Hives Verified 07/18/21 07:16 [From Entex LA] Sulfa (Sulfonamide Allergy Shortness Verified 07/18/21 07:16 Antibiotics) of breath aspirin AdvReac Itching Verified 07/18/21 07:16 Surgical History History of section Social History Smoking Status: Former smoker ROS ROS ED Review of Systems ROS Unobtainable: other Constitutional Constitutional ED: Reports lethargy; Denies chills, fever(s), sweats or weight loss Eyes Eyes: Denies blurry vision, change in vision or diplopia ENT ENT ED: Denies rhinorrhea or sore throat Cardiovascular Cardiovascular: Reports chest pain and racing heartbeat; Denies orthopnea Respiratory/Chest Respiratory/Chest: Reports dyspnea and dyspnea on exertion; Denies cough, orthopnea or sputum Gastrointestinal Gastrointestinal: Denies abdominal pain, diarrhea, nausea or vomiting Genitourinary Genitourinary ED: Denies dysuria, hematuria or urinary frequency Musculoskeletal Musculoskeletal: Denies arthralgias, back pain, myalgias or neck pain Integumentary Denies abscess, Abrasions or rash Neurologic Neurologic: Denies headache(s) or weakness Psychiatric Psychiatric: Denies anxiety, depression or suicidal thoughts Endocrine Endocrinology: Denies polydipsia, polyphagia or polyuria Hematologic/Lymphatic Hematologic/Lymphatic: Denies easy bleeding, easy bruising or lymphadenopathy Allergic/Immunologic Allergic/Immunologic ED: Denies mouth swelling, tongue swelling or urticaria EXAM Physical Exam Const Vital Signs: 07/18/21 07:16 07/18/21 07:22 07/18/21 07:27 Temperature 97.1 F L Temperature Source Temporal Pulse Rate 101 H Respiratory Rate 16 Respiratory Effort Normal Blood Pressure 134/90 H Blood Pressure Mean 104 Pulse Ox 99 97 Oxygen Delivery Method Room Air Room Air Positive well nourished and well developed General Appearance ED: well developed and NAD HEENT Reports TM's clear and moist mucous membranes normocephalic and atraumatic; Negative for trauma or tenderness Tympanic Membrane ED: Yes TM's clear Eyes PERRL and EOMs intact bilaterally General Eye ED: Negative for pale conjunctiva or scleral icterus Neck no lymphadenopathy, supple and no JVD General: Negative for tenderness Chest Wall palpation of chest normal Chest Narrative: No erythema or warmth noted to the chest wall. She does have tenderness palpation over the left ribs on palpation that seems to somewhat reproduce her pain. No lumps or masses palpated. Chest: Negative for tenderness Resp normal respiratory effort and clear to auscultation bilaterally Effort and Inspection: Negative for respiratory distress or pain with movement Auscultation: Negative for rhonchi, wheezes or diminished lung sounds Cardio regular rate, regular rhythm, S1 normal heart sound, S2 normal heart sound and no murmurs Peripheral Pulses: pulses 2+ throughout GI normal to inspection, nondistended, normoactive bowel sounds, soft to palpation, non-tender, non-distended and no masses Back/Spine no CVA tenderness and no thoracic nor lumbar tenderness Extremity normal to inspection General Extremety ED: Negative for edema General Extremity: Negative for edema Neuro oriented x3, CN's II-XII intact bilaterally, no sensory deficits noted and gait normal Sensorium / Orientation: awake, alert, oriented to person, oriented to place and oriented to time Motor Exam: strength 5/5 throughout and strength abnormal Psych mental status grossly normal Skin no rashes or lesions noted and no wounds Heart Score History: Slightly/Non-Suspicious ECG: Normal Age: >/= 65 years Risk Factors: 1 or 2 Risk Factors Troponin: </= Normal Limit Score: 3 MDM MDM MDM Narrative Medical decision making narrative: IV line established on arrival. Patient placed on a hardboard panel printer. Patient's work-up was normal in the department. Her chest pain is reproducible. I suspect this is likely musculoskeletal pain. Suspicion for extremely low for cardiac etiology. Patient advised use ibuprofen as needed for discomfort. She is to follow-up with her primary care physician in 3 to 5 days. She is to return if worsening pain, increasing shortness of breath, or condition should worsen anyway. Lab Data Attestation: I reviewed the patient's lab results. Labs: Laboratory Results - last 24 hr 07/18/21 07/18/21 07:30 07:30 WBC 6.9 RBC 4.71 Hgb 14.7 Hct 45.2 MCV 96.0 MCH 31.2 MCHC 32.5 RDW Std Deviation 47.5 H RDW Coeff of Eduardo 13.3 Plt Count 187 MPV 11.4 Immature Gran % (Auto) 0.100 Neut % (Auto) 62.1 Lymph % (Auto) 27.7 Vernon % (Auto) 8.3 Eos % (Auto) 1.5 Baso % (Auto) 0.3 Absolute Neuts (auto) 4.3 Absolute Lymphs (auto) 1.90 Nucleated RBC % 0 Sodium 141 Potassium 3.8 Chloride 108 H Carbon Dioxide 27.0 Anion Gap 6 BUN 15 Creatinine 1.37 H Estim Creat Clear Calc 33.94 Est GFR (MDRD) Af Amer 49 L Est GFR (MDRD) Non-Af 41 L BUN/Creatinine Ratio 10.9 Glucose 124 H Calcium 9.5 Troponin I High Sens 13 Radiography Chest X-Ray - ED: 1 View Diagnostic Testin view chest x-ray obtained interpreted by myself as no acute disease process. Official report from radiology pending. EKG Initial EKG: Attestation: I personally reviewed and interpreted this EKG as follows: Comments: Sinus rhythm with a ventricular rate of 92 bpm with no acute ST segment changes. Discharge Plan Triage Chief Complaint: Chest Pain ED Provider: Kelsi Munguia Dx/Rx/DC Orders Clinical Impression: Acute chest wall pain Instructions: ED Strain Chest Wall Prescriptions: No Action lisinopril [Zestril] 10 MG tablet 40 mg PO DAILY RF: 0 cyclobenzaprine 10 MG tablet 10 mg PO TID PRN (Reason: back spasms) RF: 0 atorvastatin 20 MG tablet 10 mg PO QHS RF: 0 famotidine [Pepcid] 20 mg tablet 20 mg PO BID Qty: 20 RF: 0 tizanidine 2 mg tablet 2 mg PO BID PRN (Reason: muscle spasticity) Qty: 7 RF: 0 Primary Care Provider: Dameon Ny Referrals: Dameon Ny MD [Primary Care Provider] - 3-5 Days Disposition Disposition: Home, Self Care
[2021-07-18 07:27] VITALS: O2SAT 97
[2021-07-18] MEDS: 0.9% Normal Saline 1,000 ML 150 ML IV (07:35)
--- NOTE | 2021-07-18 07:35 | RAD_ITS ---
STUDY: X-RAY CHEST REASON FOR EXAM: Female, 66 years old. Chest pain TECHNIQUE: Frontal view of the chest COMPARISON: 06/04/21 FINDINGS: The lungs are clear. There are no pleural effusions. There is no pneumothorax. The heart is normal in size. The visualized osseous structures are within normal limits. RAD/Chest 1 View (Portable) IMPRESSION: No acute thoracic pathology. Electronically Signed: Eleazar Menchaca MD at 8:28 EDT Tel , Service support ,
[2021-07-18 07:38] LABS: Absolute Neutrophil Count 4.3 X10^3/uL (2.0-7.7); Basophil# 0.02 X10^3/uL; Basophil% 0.3 % (0-1); Eosinophils% 1.5 % (0-5); Hematocrit 45.2 % (37-47); Hemoglobin 14.7 g/dL (12.0-15.0); Lymphocyte % 27.7 % (19-41); Mean Corp Hgb Conc 32.5 g/dL (32-36); Mean Corpuscular Hgb 31.2 pg (27.0-32.0); Mean Platelet Vol. 11.4 fl (6.2-12.0); Monocyte# 0.57 X10^3/uL; Monocyte% 8.3 % (0-10); NRBC Flagged by Analyzer 0 % (0-5); Neutrophil # 4.25 X10^3/uL (2.7-7.7); Neutrophil % 62.1 % (47-70); Platelet Count 187 K/mm3 (150-450); RBC Distribution Width CV 13.3 % (11.6-14.6); RBC Distribution Width SD 47.5 fl (35.1-43.9); Red Blood Count 4.71 M/mm3 (4.2-5.4); White Blood Count 6.9 K/mm3 (4.4-11.0)
[2021-07-18 07:54] LABS: Anion Gap 6 (5-15); BUN 15 mg/dL (7-18); BUN/Creat Ratio 10.9 RATIO (10-20); Calcium,Total 9.5 mg/dL (8.5-10.1); Chloride 108 mmol/L (98-107); Creatinine, Serum 1.37 mg/dL (0.55-1.02); EST Glomerular Filtration Rate 41 mL/min (>60); Est Glom Filt Rate - Afr Amer 49 mL/min (>60); Estimated Creatinine Clearance 33.94 ml/min; Glucose 124 mg/dL (74-106); Potassium 3.8 mmol/L (3.5-5.1); Sodium Level 141 mmol/L (136-145); Troponin-I HS 13 pg/mL (3.0-54.0)
[2021-07-18 08:04] VITALS: BP 141/85; PULSE 83; RESP 20; O2SAT 98
[2021-07-18 08:12] VITALS: PULSE 67; RESP 16; O2SAT 98
== END 2021-07-18 08:13 | disposition home or self-care (01) ==
PROVIDERS: Emergency Provider Emergency Medicine; PCP Family Medicine
DX: R07.89 Other chest pain (principal); I10 Essential (primary) hypertension; E78.00 Pure hypercholesterolemia, unspecified; K21.9 Gastro-esophageal reflux disease without esophagitis; M19.90 Unspecified osteoarthritis, unspecified site; Z79.899 Other long term (current) drug therapy; Z87.891 Personal history of nicotine dependence
CPT/HCPCS: 71045; 80048; 84484; 85025; 93005; 96360; 99284; J7030

== ENCOUNTER 2021-08-03 18:35 | Emergency (ER) | payer SELFPAY ==
[2021-08-03 18:35] VITALS: BP 158/98; PULSE 91; RESP 16; TEMP 36.3; O2SAT 93; BMI 21.9
--- NOTE | 2021-08-03 19:36 | EKG12_ITS ---
Test Reason : ABD PAIN Blood Pressure : / mmHG Vent. Rate : 078 BPM Atrial Rate : 078 BPM P-R Int : 178 ms QRS Dur : 078 ms QT Int : 370 ms P-R-T Axes : 036 000 046 degrees QTc Int : 421 ms Normal sinus rhythm Nonspecific ST abnormality Abnormal ECG Confirmed by HÉCTOR CARPENTER, MATHEW ([id number]), editor book JIN LANG ([id number]) on 08/05/2021 8:55:24 AM Referred By: JENNIFER Confirmed By:MATHEW ANAYA MD
--- NOTE | 2021-08-03 19:37 | EDS_ITS ---
HPI History of Present Illness Chief Complaint: Abd Pain Informant: patient Onset/Context/Timing Onset: Days Context: Gradual Onset Timing: Waxes and wanes Current Severity: Mild Maximum Severity: Mild Narrative Narrative: Patient presents with a burning sensation across her upper abdomen as well as in her throat for the past 4 days. She denies nausea or vomiting. She was seen by her PCP yesterday and had a CBC, LFTs, lipase obtained that were all normal. She been started on Pepcid approximately a week ago. She states she took a dose that this morning but did not notice any change in her pain. [facility] Medical History Arthritis GERD (gastroesophageal reflux disease) High cholesterol History of recurrent UTI (urinary tract infection) Hypertension Home Medications lisinopril [Zestril] 40 mg PO DAILY 09/20/16 [History Last Taken 01/12/21 04:00] cyclobenzaprine 10 mg PO TID PRN 12/15/18 [History Last Taken 04/02/19] atorvastatin 10 mg PO QHS 04/03/19 [History Last Taken 01/11/21 18:30] famotidine [Pepcid] 20 mg PO BID #20 tab 04/26/21 [Rx Last Taken Unknown] tizanidine 2 mg PO BID PRN #7 tab 06/16/21 [Rx Last Taken Unknown] Allergy/AdvReac Type Severity Reaction Status Date / Time ampicillin Allergy Hives Verified 08/03/21 18:38 cefadroxil hydrate Allergy Hives Verified 08/03/21 18:38 [From Duricef] cephalexin monohydrate Allergy Hives Verified 08/03/21 18:38 [From Keflex] codeine Allergy Hives Verified 08/03/21 18:38 erythromycin base Allergy Hives Verified 08/03/21 18:38 [Erythromycin Base] guaifenesin [From Entex LA] Allergy Hives Verified 08/03/21 18:38 hydrocodone bitartrate Allergy Hives Verified 08/03/21 18:38 [From Vicodin] hydrocortisone Allergy Hives Verified 08/03/21 18:38 [From Cortizone-10] Iodinated Contrast Media Allergy Hives Verified 08/03/21 18:38 [CONTRASTS] iodine Allergy Hives Verified 08/03/21 18:38 levofloxacin [From Levaquin] Allergy Hives Verified 08/03/21 18:38 morphine Allergy Hives Verified 08/03/21 18:38 nitrofurantoin Allergy Hives Verified 08/03/21 18:38 [From Macrobid] Penicillins Allergy Shortness Verified 08/03/21 18:38 of breath phenylephrine HCl Allergy Hives Verified 08/03/21 18:38 [From Entex LA] phenylpropanolamine HCl Allergy Hives Verified 08/03/21 18:38 [From Entex LA] Sulfa (Sulfonamide Allergy Shortness Verified 08/03/21 18:38 Antibiotics) of breath aspirin AdvReac Itching Verified 08/03/21 18:38 Surgical History History of section Social History Smoking Status: Former smoker ROS ROS ED Constitutional Constitutional ED: Denies chills or fever(s) Eyes Eyes: Denies change in vision ENT ENT ED: Reports sore throat Cardiovascular Cardiovascular: Denies chest pain Respiratory/Chest Respiratory/Chest: Denies cough or dyspnea Gastrointestinal Gastrointestinal: Reports abdominal pain; Denies diarrhea, nausea or vomiting Genitourinary Genitourinary ED: Denies dysuria Musculoskeletal Musculoskeletal: Denies back pain Integumentary Denies rash Neurologic Neurologic: Denies headache(s) or weakness Allergic/Immunologic Allergic/Immunologic ED: Denies urticaria EXAM Physical Exam Const Vital Signs: 08/03/21 18:35 08/03/21 19:49 08/03/21 21:14 Temperature 97.4 F L Temperature Source Temporal Pulse Rate 91 78 87 Respiratory Rate 16 14 21 H Blood Pressure 158/98 H 160/90 H 143/89 H Blood Pressure Mean 118 113 107 Pulse Ox 93 95 97 Oxygen Delivery Method Room Air Room Air Room Air 08/03/21 21:44 Temperature Temperature Source Pulse Rate 78 Respiratory Rate 18 Blood Pressure 155/80 H Blood Pressure Mean Pulse Ox 97 Oxygen Delivery Method Positive well nourished and well developed General Appearance ED: well developed HEENT Reports normocephalic and head/scalp atraumatic Eyes PERRL and EOMs intact bilaterally Neck supple Chest Wall inspection of chest normal and palpation of chest normal Resp normal respiratory effort and clear to auscultation bilaterally Cardio regular rate and regular rhythm GI normal to inspection, nondistended, normoactive bowel sounds and non-tender Palpation: soft Back/Spine no CVA tenderness Extremity normal to inspection Neuro oriented x3 and no sensory deficits noted Sensorium / Orientation: alert Motor Exam: strength 5/5 throughout Psych mental status grossly normal Skin no rashes or lesions noted MDM MDM MDM Narrative Medical decision making narrative: Patient's BMP, liver function, lipase reviewed from yesterday. These values are all normal. EKG, chest x-ray, and troponin are done here. She is given a GI cocktail. Lab Data Attestation: I reviewed the patient's lab results. Labs: Laboratory Results - last 24 hr 08/03/21 19:21 Troponin I High Sens 11 Radiography Chest X-Ray - ED: 1 View, Read by ED Physician and Chronic Changes Diagnostic Testing: Clinical Impression(s) from Imaging Studies Chest X-Ray 08/03/21 19:55 IMPRESSION: No acute cardiopulmonary disease or interval change. Electronically Signed: Satya Mora DO at 20:21 EDT Tel [phone], Service support , EKG Initial EKG: Attestation: I personally reviewed and interpreted this EKG as follows: Interpretation: Sinus Rhythm (Sinus at [address].) Treatment and Re-Evaluation Comments:: On repeat evaluation patient states her pain is significantly i mproved. Cardiac work-up is unremarkable. Patient will use Maalox at home to supplement her Pepcid until it is effective. Advised to follow-up with her PCP. Return instructions provided. Discharge Plan Triage Chief Complaint: Abd Pain ED Provider: Bel Tran Dx/Rx/DC Orders Clinical Impression: Gastroesophageal reflux disease Instructions: ED GERD (Adult) Prescriptions: No Action lisinopril [Zestril] 10 MG tablet 40 mg PO DAILY RF: 0 cyclobenzaprine 10 MG tablet 10 mg PO TID PRN (Reason: back spasms) RF: 0 atorvastatin 20 MG tablet 10 mg PO QHS RF: 0 famotidine [Pepcid] 20 mg tablet 20 mg PO BID Qty: 20 RF: 0 tizanidine 2 mg tablet 2 mg PO BID PRN (Reason: muscle spasticity) Qty: 7 RF: 0 Primary Care Provider: Dameon Ny Referrals: Dameon Ny MD [Primary Care Provider] - 1-2 Weeks Disposition Disposition: Home, Self Care Discharge Date/Time: 08/03/21 21:45
[2021-08-03] MEDS: Mag Hydrox/Al Hydrox/Simeth 30 ML UDC PO (19:47)
[2021-08-03 19:49] VITALS: BP 160/90; PULSE 78; RESP 14; O2SAT 95
--- NOTE | 2021-08-03 19:55 | RAD_ITS ---
STUDY: X-RAY CHEST REASON FOR EXAM: Female, 66 years old. Upper abdominal pain and burning for 4 days. No nausea and vomiting. TECHNIQUE: Single AP portable view of the chest. COMPARISON: 07/18/2021. FINDINGS: The lungs are clear and expanded. There is no demonstrated pleural abnormality. Normal size heart. Normal mediastinum and donna. Normal visualized pulmonary arteries. Normal visualized aortic arch and descending thoracic aorta. Normal visualized thoracic spine. Normal visualized ribs, clavicles, and shoulders. There is no demonstrated abnormality of the visualized soft tissue structures of the upper abdomen. RAD/Chest 1 View (Portable) IMPRESSION: No acute cardiopulmonary disease or interval change. Electronically Signed: Satya Mora DO at 20:21 EDT Tel [phone], Service support ,
[2021-08-03 20:03] LABS: Troponin-I HS 11 pg/mL (3.0-54.0)
[2021-08-03 21:14] VITALS: BP 143/89; PULSE 87; RESP 21; O2SAT 97
[2021-08-03 21:44] VITALS: BP 155/80; PULSE 78; RESP 18; O2SAT 97
== END 2021-08-03 21:45 | disposition home or self-care (01) ==
PROVIDERS: Emergency Provider Emergency Medicine; PCP Family Medicine
DX: K21.9 Gastro-esophageal reflux disease without esophagitis (principal); I10 Essential (primary) hypertension; E78.00 Pure hypercholesterolemia, unspecified; M19.90 Unspecified osteoarthritis, unspecified site; Z79.899 Other long term (current) drug therapy; Z87.891 Personal history of nicotine dependence
CPT/HCPCS: 71045; 84484; 93005; 99285; A4216

== ENCOUNTER 2021-08-16 02:03 | Emergency (ER) | payer SELFPAY ==
[2021-08-16 02:04] VITALS: BP 159/91; PULSE 95; RESP 18; TEMP 36.8; O2SAT 98; BMI 22.0
--- NOTE | 2021-08-16 02:14 | EDS_ITS ---
HPI History of Present Illness Chief Complaint: Back Detail of Chief Complaint: Back and rib pain that started around 11 PM Informant: patient Onset/Context/Timing Quality: Dull and Aching Current Severity: Mild Narrative Narrative: Patient presents to the emergency department with complaint of pain in her back and right ribs that started around 11 PM while she was lying down. Patient mentioned this to her who brought her in for evaluation. Patient states that she felt like she could stay home but he thought she should get checked out. She denies any injury. She states that yesterday she did bring in some groceries and may have twisted. She denies any pain rating down her legs. She denies chest pain or shortness of breath. She denies fever or cough. She denies urinary symptoms. Patient has had similar symptoms in the past. Prior similar symptoms: Yes [facility] Medical History (Updated 08/16/21 @ 02:[address] Kelsi Munguia, ) Arthritis GERD (gastroesophageal reflux disease) High cholesterol History of recurrent UTI (urinary tract infection) Hypertension Kidney disease Home Medications lisinopril [Zestril] 40 mg PO DAILY 09/20/16 [History Last Taken 01/12/21 04:00] cyclobenzaprine 10 mg PO TID PRN 12/15/18 [History Last Taken 04/02/19] atorvastatin 10 mg PO QHS 04/03/19 [History Last Taken 01/11/21 18:30] famotidine [Pepcid] 20 mg PO BID #20 tab 04/26/21 [Rx Last Taken Unknown] tizanidine 2 mg PO BID PRN #7 tab 06/16/21 [Rx Last Taken Unknown] Allergy/AdvReac Type Severity Reaction Status Date / Time ampicillin Allergy Hives Verified 08/03/21 18:38 cefadroxil hydrate Allergy Hives Verified 08/03/21 18:38 [From Duricef] cephalexin monohydrate Allergy Hives Verified 08/03/21 18:38 [From Keflex] codeine Allergy Hives Verified 08/03/21 18:38 erythromycin base Allergy Hives Verified 08/03/21 18:38 [Erythromycin Base] guaifenesin [From Entex LA] Allergy Hives Verified 08/03/21 18:38 hydrocodone bitartrate Allergy Hives Verified 08/03/21 18:38 [From Vicodin] hydrocortisone Allergy Hives Verified 08/03/21 18:38 [From Cortizone-10] Iodinated Contrast Media Allergy Hives Verified 08/03/21 18:38 [CONTRASTS] iodine Allergy Hives Verified 08/03/21 18:38 levofloxacin [From Levaquin] Allergy Hives Verified 08/03/21 18:38 morphine Allergy Hives Verified 08/03/21 18:38 nitrofurantoin Allergy Hives Verified 08/03/21 18:38 [From Macrobid] Penicillins Allergy Shortness Verified 08/03/21 18:38 of breath phenylephrine HCl Allergy Hives Verified 08/03/21 18:38 [From Entex LA] phenylpropanolamine HCl Allergy Hives Verified 08/03/21 18:38 [From Entex LA] Sulfa (Sulfonamide Allergy Shortness Verified 08/03/21 18:38 Antibiotics) of breath aspirin AdvReac Itching Verified 08/03/21 18:38 Surgical History History of section Social History Smoking Status: Former smoker ROS ROS ED Constitutional Constitutional ED: Reports systems reviewed and no addt'l complaints, except as documented; Denies body ache(s), change in weight or chills Eyes Eyes: Denies acute decrease in peripheral vision, change in vision, double vision or loss of vision ENT ENT ED: Reports none; Denies ear pain, lip swelling, loss taste/smell, neck pain, otalgia or sore throat Cardiovascular Cardiovascular: Reports none; Denies abdominal pain, chest pain with activity, leg edema, lightheadedness, palpitations, rapid heart rate or syncope Respiratory/Chest Respiratory/Chest: Reports none; Denies change in mental status, dry cough, dyspnea, hemoptysis, shortness of breath at rest or shortness of breath with exertion Gastrointestinal Gastrointestinal: Reports none; Denies abdominal pain, change in stool ch aracter, diarrhea, hematemesis, hematochezia, melena, rectal bleeding or vomiting Genitourinary Genitourinary ED: Reports none; Denies abdominal discomfort, anuria, dysuria, genital pain or polyuria Musculoskeletal Musculoskeletal: Reports none and back pain; Denies arthralgias, difficulty walking, extremity pain, muscle weakness or myalgias Integumentary Reports none; Denies abscess or rash Neurologic Neurologic: Reports none; Denies abnormal gait, confusion, focal weakness, frequent falls, headache(s), loss of vision, numbness, paresthesias, radicular pain, vertigo or weakness Psychiatric Psychiatric: Reports systems reviewed and no addt'l complaints, except as documented and none; Denies behavioral changes, confusion, difficulty concentrating, hallucinations, suicidal ideation, tactile hallucinations or visual hallucinations Endocrine Endocrinology: Denies none, cold intolerance, excessive sweating, fatigue or heat intolerance Hematologic/Lymphatic Hematologic/Lymphatic: Reports none; Denies anemia, easy bleeding or easy bruising Allergic/Immunologic Allergic/Immunologic ED: Denies as per HPI, none, lip swelling, mouth swelling, throat swelling, tongue swelling or hives EXAM Physical Exam Const Vital Signs: 08/16/21 02:04 Temperature 98.2 F Temperature Source Temporal Pulse Rate 95 Respiratory Rate 18 Blood Pressure 159/91 H Blood Pressure Mean 113 Pulse Ox 98 Oxygen Delivery Method Room Air Positive well nourished and well developed General Appearance ED: well developed and NAD HEENT Reports TM's clear and moist mucous membranes normocephalic and atraumatic; Negative for trauma or tenderness Tympanic Membrane ED: Yes TM's clear Eyes PERRL and EOMs intact bilaterally General Eye ED: Negative for pale conjunctiva or scleral icterus Neck no lymphadenopathy, supple and no JVD General: Negative for tenderness Chest Wall inspection of chest normal and palpation of chest normal Chest: Negative for tenderness Resp normal respiratory effort and clear to auscultation bilaterally Effort and Inspection: Negative for respiratory distress or pain with movement Auscultation: Negative for rhonchi, wheezes or diminished lung sounds Cardio regular rate, regular rhythm, S1 normal heart sound, S2 normal heart sound and no murmurs Peripheral Pulses: pulses 2+ throughout GI normal to inspection, nondistended, normoactive bowel sounds, soft to palpation, non-tender, non-distended and no masses Back/Spine no CVA tenderness and no thoracic nor lumbar tenderness Back/Spine Narrative: Patient has some tenderness palpation over the right thoracic and lumbar paraspinal musculature that seems to reproduce her pain. Patient also with some tenderness over the right ribs into the midaxillary line. There is no crepitus or subcu emphysema. No ecchymosis or bruising noted. Patient has negative straight leg raises. Deep tendon reflexes are plus out of 4 bilaterally at the patella and Achilles. Patient has normal 5 extension bilaterally. Patient has normal sensation to light touch. Extremity normal to inspection General Extremety ED: Negative for edema General Extremity: Negative for edema Neuro oriented x3, CN's II-XII intact bilaterally, no sensory deficits noted and gait normal Sensorium / Orientation: awake, alert, oriented to person, oriented to place and oriented to time Motor Exam: strength 5/5 throughout and strength abnormal Psych mental status grossly normal Skin no rashes or lesions noted and no wounds MDM MDM MDM Narrative Medical decision making narrative: Patient has multiple drug allergies and does not want anything for pain here locally. Patient states that she has Flexeril at home she can take more Tylenol. Patient is comfortable going home and really did not feel like she needed to come in tonight. Given that there is been no injury or trauma I do not feel imaging is indicated. I suspect most likely this is musculoskeletal pain. Discharge Plan Triage Chief Complaint: Back ED Provider: Kelsi Munguia Dx/Rx/DC Orders Clinical Impression: Back pain Instructions: ED Back Pain (Acute or Chronic) Prescriptions: No Action lisinopril [Zestril] 10 MG tablet 40 mg PO DAILY RF: 0 cyclobenzaprine 10 MG tablet 10 mg PO TID PRN (Reason: back spasms) RF: 0 atorvastatin 20 MG tablet 10 mg PO QHS RF: 0 famotidine [Pepcid] 20 mg tablet 20 mg PO BID Qty: 20 RF: 0 tizanidine 2 mg tablet 2 mg PO BID PRN (Reason: muscle spasticity) Qty: 7 RF: 0 Primary Care Provider: Dameon Ny Referrals: Dameon Ny MD [Primary Care Provider] - 3-5 Days Disposition Disposition: Home, Self Care
== END 2021-08-16 02:34 | disposition home or self-care (01) ==
LOC: ED 02:23
PROVIDERS: Emergency Provider Emergency Medicine; PCP Family Medicine
DX: M54.9 Dorsalgia, unspecified (principal); R07.81 Pleurodynia; I10 Essential (primary) hypertension; E78.00 Pure hypercholesterolemia, unspecified; K21.9 Gastro-esophageal reflux disease without esophagitis; M19.90 Unspecified osteoarthritis, unspecified site; Z79.899 Other long term (current) drug therapy; Z87.891 Personal history of nicotine dependence
CPT/HCPCS: 99282

== ENCOUNTER 2021-09-06 04:41 | Emergency (ER) | payer SELFPAY ==
[2021-09-06 04:42] VITALS: BP 163/89; PULSE 99; RESP 16; TEMP 36.8; O2SAT 99; BMI 21.7
--- NOTE | 2021-09-06 05:09 | ED.VIS.GI ---
HPI HPI - GI History of Present Illness Chief Complaint: Abd Pain Detail of Chief Complaint: Suprapubic abdominal discomfort Informant: patient Abdominal Pain/Flank Pain Onset: Days Context: Gradual Onset Timing: Intermittent Quality: Cramping Current Severity: Mild Maximum Severity: Mild Worsened by: Nothing Relieved by: Nothing Nausea/Vomiting/Emesis GI Symptom: Negative for Nausea and Vomiting Diarrhea/Melena/Hematochezia GI Symptom: Negative for Diarrhea, Melena and Hematochezia Associated Symptoms Associated Symptoms: Negative for Dysuria, Frequency, Hematuria and Urgency Narrative Narrative: 66-year-old female history of hypertension and recurrent UTIs. States yesterday she had some mild suprapubic abdominal discomfort it resolved and returned this morning. She denies any nausea, vomiting. No diarrhea or fever. No dysuria. No constipation or melena. She has had a prior but no other abdominal surgeries. States this feels like her urinary tract infections in the past. No back pain. Prior similar symptoms: Yes Recent Illness/Hospitalization: No PFSH PFSH Medical History Arthritis GERD (gastroesophageal reflux disease) High cholesterol History of recurrent UTI (urinary tract infection) Hypertension Kidney disease Home Medications lisinopril [Zestril] 40 mg PO DAILY 09/20/16 [History Last Taken 01/12/21 04:00] cyclobenzaprine 10 mg PO TID PRN 12/15/18 [History Last Taken 04/02/19] atorvastatin 10 mg PO QHS 04/03/19 [History Last Taken 01/11/21 18:30] famotidine [Pepcid] 20 mg PO BID #20 tab 04/26/21 [Rx Last Taken Unknown] tizanidine 2 mg PO BID PRN #7 tab 06/16/21 [Rx Last Taken Unknown] Allergy/AdvReac Type Severity Reaction Status Date / Time ampicillin Allergy Hives Verified 08/03/21 18:38 cefadroxil hydrate Allergy Hives Verified 08/03/21 18:38 [From Duricef] cephalexin monohydrate Allergy Hives Verified 08/03/21 18:38 [From Keflex] codeine Allergy Hives Verified 08/03/21 18:38 erythromycin base Allergy Hives Verified 08/03/21 18:38 [Erythromycin Base] guaifenesin [From Entex LA] Allergy Hives Verified 08/03/21 18:38 hydrocodone bitartrate Allergy Hives Verified 08/03/21 18:38 [From Vicodin] hydrocortisone Allergy Hives Verified 08/03/21 18:38 [From Cortizone-10] Iodinated Contrast Media Allergy Hives Verified 08/03/21 18:38 [CONTRASTS] iodine Allergy Hives Verified 08/03/21 18:38 levofloxacin [From Levaquin] Allergy Hives Verified 08/03/21 18:38 morphine Allergy Hives Verified 08/03/21 18:38 nitrofurantoin Allergy Hives Verified 08/03/21 18:38 [From Macrobid] Penicillins Allergy Shortness Verified 08/03/21 18:38 of breath phenylephrine HCl Allergy Hives Verified 08/03/21 18:38 [From Entex LA] phenylpropanolamine HCl Allergy Hives Verified 08/03/21 18:38 [From Entex LA] Sulfa (Sulfonamide Allergy Shortness Verified 08/03/21 18:38 Antibiotics) of breath aspirin AdvReac Itching Verified 08/03/21 18:38 Surgical History History of section Social History Smoking Status: Former smoker ROS ROS ED ROS Narrative Denies. Review of Systems ROS Unobtainable: Denies due to encephalopathy Constitutional Constitutional ED: Denies fever(s) ENT ENT ED: Denies ear pain Cardiovascular Cardiovascular: Denies chest pain Respiratory/Chest Respiratory/Chest: Denies dyspnea Gastrointestinal Gastrointestinal: Reports abdominal pain; Denies constipation, diarrhea, melena, nausea or vomiting Genitourinary Genitourinary ED: Denies dysuria or hematuria Musculoskeletal Musculoskeletal: Denies myalgias Integumentary Denies rash Neurologic Neurologic: Denies headache(s) Psychiatric Psychiatric: Denies depression Endocrine Endocrinology: Denies polyuria Hematologic/Lymphatic Hematologic/Lymphatic: Denies easy bruising Allergic/Immunologic Allergic/Immunologic ED: Denies urticaria EXAM Physical Exam Narrative Exam Narrative: 58-year-old female no acute distress vital signs stable afebrile. HEENT exam unremarkable. Moist use membranes. Lungs clear to auscultation bilaterally. Heart regular rhythm no murmur. Abdomen soft. Nondistended. Normal bowel sounds. No peritoneal signs. Right upper right lower quadrant unremarkable. No hernia or mass. No pulsatile mass. No distention. Very minimal suprapubic discomfort. Moving all 4 extremities. No edema. Back nontender. No CVA tenderness. Neurologically awake and alert moving all 4 extremities. Const Vital Signs: 09/06/21 04:42 Temperature 98.3 F Temperature Source Oral Pulse Rate 99 Respiratory Rate 16 Blood Pressure 163/89 H Blood Pressure Mean 113 Pulse Ox 99 Oxygen Delivery Method Room Air Positive well nourished and well developed; Negative for obese, cachectic, contractures or unkempt General Appearance ED: well developed and NAD; Negative for unkempt, cachectic, contractures or pallor Nutritional Appearance: Negative for cachectic or obese HEENT Reports moist mucous membranes normocephalic and atraumatic Eyes PERRL and EOMs intact bilaterally Neck no lymphadenopathy, supple and no JVD General: Negative for tenderness Resp normal respiratory effort and clear to auscultation bilaterally Auscultation: Negative for rales, rhonchi, wheezes or diminished lung sounds Cardio regular rate, regular rhythm, S1 normal heart sound, S2 normal heart sound and no murmurs GI non-distended and no masses; Negative for non-tender GI Narrative: Mild suprapubic tenderness only. Auscultation: normoactive bowel sounds Palpation: soft, tender and rebound tenderness present; Negative for guarding or rigid Back/Spine no CVA tenderness General Back: Negative for CVA tenderness Extremity full ROM General Extremety ED: Negative for edema or tenderness General Extremity: Negative for edema Neuro moves all extremities Sensorium / Orientation: alert, oriented to person, oriented to place and oriented to time Motor Exam: strength 5/5 throughout Psych mental status grossly normal and thought process normal Appearance: Negative for unkempt Skin no wounds General Skin Exam: Negative for jaundice or pallor Lesions: no lesions Rashes: no rashes MDM MDM MDM Narrative Medical decision making narrative: Discussed with the patient.66-year-old female recurrent UTIs with suprapubic discomfort. Urinalysis and culture being obtained. She does not want any thing for pain she is having no other symptoms. Repeat exam at 6:35 AM her abdomen is completely benign she is pain-free and symptom-free. We went over her urinalysis. She did not want any other tests at this time. I do not think she needs imaging. She knows to return if increasing pain, fever or feeling worse. Lab Data Attestation: I reviewed the patient's lab results. Lab results narrative: Urinalysis shows no signs of infection. No nitrates, no whites no red cells and no bacteria. Labs: Laboratory Results - last 24 hr 09/06/21 05:08 Urine Color Yellow Urine Clarity Clear Urine pH 7.0 Ur Specific [place] 1.010 Urine Protein Negative Urine Glucose (UA) Normal Urine Ketones Negative Urine Occult Blood 10 H Urine Nitrite Negative Urine Bilirubin Negative Urine Urobilinogen Normal Ur Leukocyte Esterase 25 H Urine RBC 0 SEEN Urine WBC 0-5 SEEN Ur Squamous Epith Cells 0 SEEN Urine Bacteria 0 SEEN Urine Mucus 0 SEEN Discharge Plan Triage Chief Complaint: Abd Pain ED Provider: Michael Jesus Dx/Rx/DC Orders Clinical Impression: Abdominal pain Instructions: ED Abdominal Pain Unkn Cause Fem Prescriptions: No Action lisinopril [Zestril] 10 MG tablet 40 mg PO DAILY RF: 0 cyclobenzaprine 10 MG tablet 10 mg PO TID PRN (Reason: back spasms) RF: 0 atorvastatin 20 MG tablet 10 mg PO QHS RF: 0 famotidine [Pepcid] 20 mg tablet 20 mg PO BID Qty: 20 RF: 0 tizanidine 2 mg tablet 2 mg PO BID PRN (Reason: muscle spasticity) Qty: 7 RF: 0 Primary Care Provider: Dameon Ny Referrals: Dameon Ny MD [Primary Care Provider] - 3-5 Days if not improving Activity Restrictions/Additional Instructions: Follow-up with your doctor if not improving. Return to the emergency department if increasing pain, fever intractable vomiting. Your urinalysis tonight was normal. Disposition Disposition: Home, Self Care
[2021-09-06 05:21] LABS: Bacteria 0 SEEN /hpf (None Seen); Mucous, Urine 0 SEEN /hpf (<or=2+); Red Blood Cells-Urine 0 SEEN /hpf (0-5); Squamous Epithelial Cells - UA 0 SEEN /hpf (5-10)
[2021-09-06 05:22] LABS: Color, Urine Yellow (Yellow); Glucose, Dipstick Normal (Normal); Ketone-Dipstick Negative (Negative); Leukocyte Esterase-Dipstick 25 /ul (Negative); Nitrite-Dipstick Negative (Negative); Occult Blood-Urine 10 /ul (Negative); Protein-Dipstick Negative (Negative); Urine Bilirubin Dipstick Negative (Negative); Urine Clarity Clear (Clear); Urine Urobilinogen Normal (Normal)
[2021-09-06 06:23] LABS: White Blood Cells 0-5 SEEN /hpf (0-5)
== END 2021-09-06 06:54 | disposition home or self-care (01) ==
PROVIDERS: Emergency Provider Emergency Medicine; PCP Family Medicine
DX: R10.9 Unspecified abdominal pain (principal); Z87.891 Personal history of nicotine dependence; I10 Essential (primary) hypertension; K21.9 Gastro-esophageal reflux disease without esophagitis; E78.00 Pure hypercholesterolemia, unspecified; Z87.440 Personal history of urinary (tract) infections; Z79.899 Other long term (current) drug therapy
CPT/HCPCS: 81001; 87086; 87088; 99282; A4216

== ENCOUNTER 2021-10-23 15:13 | Emergency (ER) | payer SELFPAY ==
[2021-10-23 15:14] VITALS: BP 155/94; PULSE 115; RESP 16; TEMP 36; O2SAT 99; BMI 21.4
--- NOTE | 2021-10-23 15:39 | EDS_ITS ---
HPI History of Present Illness Chief Complaint: Abd Pain Informant: patient Onset/Context/Timing Onset: Today Context: Gradual Onset Timing: Waxes and wanes Quality: Burning Current Severity: Mild Maximum Severity: Moderate Narrative Narrative: Patient presents with burning sensation in the epigastrium. She is a history of gastric ulcer and states this feels similar. She did take Pepcid this morning which improved the symptoms for a short time. Patient does admit to drinking more coffee lately as the weather has been colder. No fever or chills. No vomiting. No dark-colored stools. PFSH [facility] Medical History Arthritis GERD (gastroesophageal reflux disease) High cholesterol History of recurrent UTI (urinary tract infection) Hypertension Kidney disease Home Medications lisinopril [Zestril] 40 mg PO DAILY 09/20/16 [History Last Taken 01/12/21 04:00] cyclobenzaprine 10 mg PO TID PRN 12/15/18 [History Last Taken 04/02/19] atorvastatin 10 mg PO QHS 04/03/19 [History Last Taken 01/11/21 18:30] famotidine [Pepcid] 20 mg PO BID #20 tab 04/26/21 [Rx Last Taken Unknown] tizanidine 2 mg PO BID PRN #7 tab 06/16/21 [Rx Last Taken Unknown] Allergy/AdvReac Type Severity Reaction Status Date / Time ampicillin Allergy Hives Verified 10/23/21 15:16 cefadroxil hydrate Allergy Hives Verified 10/23/21 15:16 [From Duricef] cephalexin monohydrate Allergy Hives Verified 10/23/21 15:16 [From Keflex] codeine Allergy Hives Verified 10/23/21 15:16 erythromycin base Allergy Hives Verified 10/23/21 15:16 [Erythromycin Base] guaifenesin [From Entex LA] Allergy Hives Verified 10/23/21 15:16 hydrocodone bitartrate Allergy Hives Verified 10/23/21 15:16 [From Vicodin] hydrocortisone Allergy Hives Verified 10/23/21 15:16 [From Cortizone-10] Iodinated Contrast Media Allergy Hives Verified 10/23/21 15:16 [CONTRASTS] iodine Allergy Hives Verified 10/23/21 15:16 levofloxacin [From Levaquin] Allergy Hives Verified 10/23/21 15:16 morphine Allergy Hives Verified 10/23/21 15:16 nitrofurantoin Allergy Hives Verified 10/23/21 15:16 [From Macrobid] Penicillins Allergy Shortness Verified 10/23/21 15:16 of breath phenylephrine HCl Allergy Hives Verified 10/23/21 15:16 [From Entex LA] phenylpropanolamine HCl Allergy Hives Verified 10/23/21 15:16 [From Entex LA] Sulfa (Sulfonamide Allergy Shortness Verified 10/23/21 15:16 Antibiotics) of breath aspirin AdvReac Itching Verified 10/23/21 15:16 Surgical History History of section Social History Smoking Status: Former smoker ROS ROS ED Constitutional Constitutional ED: Denies chills or fever(s) Eyes Eyes: Denies change in vision ENT ENT ED: Denies sore throat Cardiovascular Cardiovascular: Denies chest pain Respiratory/Chest Respiratory/Chest: Denies cough or dyspnea Gastrointestinal Gastrointestinal: Reports abdominal pain; Denies diarrhea, nausea or vomiting Genitourinary Genitourinary ED: Denies dysuria Musculoskeletal Musculoskeletal: Denies back pain Integumentary Denies rash Neurologic Neurologic: Denies headache(s) or weakness Allergic/Immunologic Allergic/Immunologic ED: Denies urticaria EXAM Physical Exam Const Vital Signs: 10/23/21 15:14 Temperature 96.8 F L Temperature Source Temporal Pulse Rate 115 H Respiratory Rate 16 Blood Pressure 155/94 H Blood Pressure Mean 114 Pulse Ox 99 Oxygen Delivery Method Room Air Positive well nourished and well developed General Appearance ED: well developed HEENT Reports moist mucous membranes Eyes PERRL and EOMs intact bilaterally Neck supple Chest Wall inspection of chest normal and palpation of chest normal Resp normal respiratory effort and clear to auscultation bilaterally Cardio regular rate and regular rhythm GI Palpation: soft and tender epigastric (Mild epigastric tenderness to palpation.) Extremity normal to inspection Neuro oriented x3 Sensorium / Orientation: alert Psych mental status grossly normal Skin no rashes or lesions noted MDM MDM MDM Narrative Medical decision making narrative: Patient given GI cocktail. Lab work including LFTs and lipase obtained. Lab Data Attestation: I reviewed the patient's lab results. Labs: Laboratory Results - last 24 hr 10/23/21 10/23/21 15:35 15:35 WBC 5.5 RBC 4.64 Hgb 14.4 Hct 44.6 MCV 96.1 MCH 31.0 MCHC 32.3 RDW Std Deviation 44.9 H RDW Coeff of Eduardo 12.7 Plt Count 231 MPV 10.6 Immature Gran % (Auto) 0.200 Neut % (Auto) 57.6 Lymph % (Auto) 35.1 [place] % (Auto) 6.2 Eos % (Auto) 0.4 Baso % (Auto) 0.5 Absolute Neuts (auto) 3.2 Absolute Lymphs (auto) 1.92 Nucleated RBC % 0 Sodium 140 Potassium 3.6 Chloride 106 Carbon Dioxide 28.0 Anion Gap 6 BUN 13 Creatinine 1.07 H Estim Creat Clear Calc 43.45 Est GFR (MDRD) Af Amer 66 Est GFR (MDRD) Non-Af 54 L BUN/Creatinine Ratio 12.1 Glucose 140 H Calcium 9.5 Total Bilirubin 0.40 AST 16 ALT 22 Alkaline Phosphatase 110 Total Protein 7.6 Albumin 3.3 Globulin 4.3 H Albumin/Globulin Ratio 0.8 L Lipase 131 Treatment and Re-Evaluation Comments:: Repeat evaluation patient feeling improved. Lab work reviewed and unremarkable. Patient has Mylanta at home that she can use intermittently. She will continue her Pepcid. Discharge Plan Triage Chief Complaint: Abd Pain ED Provider: Bel Tran Dx/Rx/DC Orders Clinical Impression: Gastritis Instructions: ED Gastritis (Adult) Prescriptions: No Action lisinopril [Zestril] 10 MG tablet 40 mg PO DAILY RF: 0 cyclobenzaprine 10 MG tablet 10 mg PO TID PRN (Reason: back spasms) RF: 0 atorvastatin 20 MG tablet 10 mg PO QHS RF: 0 famotidine [Pepcid] 20 mg tablet 20 mg PO BID Qty: 20 RF: 0 tizanidine 2 mg tablet 2 mg PO BID PRN (Reason: muscle spasticity) Qty: 7 RF: 0 Primary Care Provider: Dameon Ny Referrals: Dameon Ny MD [Primary Care Provider] - 10-14 Days if not better Disposition Disposition: Home, Self Care
[2021-10-23 15:45] LABS: Absolute Lymphocyte Count 1.92 X10^3/uL (0.83-4.51); Absolute Neutrophil Count 3.2 X10^3/uL (2.0-7.7); Basophil# 0.03 X10^3/uL; Basophil% 0.5 % (0-1); Eosinophil# 0.02 X10^3/uL; Eosinophils% 0.4 % (0-5); Hematocrit 44.6 % (37-47); Hemoglobin 14.4 g/dL (12.0-15.0); Lymphocyte # 1.92 X10^3/ul (0.83-4.51); Lymphocyte % 35.1 % (19-41); Mean Corp Hgb Conc 32.3 g/dL (32-36); Mean Corpuscular Volume 96.1 fL (81-99); Mean Platelet Vol. 10.6 fl (6.2-12.0); Monocyte# 0.34 X10^3/uL; Monocyte% 6.2 % (0-10); NRBC Flagged by Analyzer 0 % (0-5); Neutrophil # 3.15 X10^3/uL (2.7-7.7); Neutrophil % 57.6 % (47-70); Platelet Count 231 K/mm3 (150-450); RBC Distribution Width CV 12.7 % (11.6-14.6); RBC Distribution Width SD 44.9 fl (35.1-43.9); Red Blood Count 4.64 M/mm3 (4.2-5.4); White Blood Count 5.5 K/mm3 (4.4-11.0)
[2021-10-23] MEDS: Mag Hydrox/Al Hydrox/Simeth 30 ML UDC PO (15:45)
[2021-10-23 16:01] LABS: ALB/GLOB Ratio 0.8 RATIO (0.9-2.4); AST(SGOT) 16 U/L (15-37); Alanine Aminotransfer ALT/SGPT 22 U/L (13-56); Albumin, Serum 3.3 g/dL (3.2-5.0); Alkaline Phosphatase 110 U/L (45-117); Anion Gap 6 (5-15); BUN 13 mg/dL (7-18); BUN/Creat Ratio 12.1 RATIO (10-20); Calcium,Total 9.5 mg/dL (8.5-10.1); Chloride 106 mmol/L (98-107); Creatinine, Serum 1.07 mg/dL (0.55-1.02); EST Glomerular Filtration Rate 54 mL/min (>60); Est Glom Filt Rate - Afr Amer 66 mL/min (>60); Estimated Creatinine Clearance 43.45 ml/min; Globulin 4.3 g/dL (2.2-4.2); Glucose 140 mg/dL (74-106); Lipase 131 U/L (73-393); Potassium 3.6 mmol/L (3.5-5.1); Protein, Total 7.6 g/dL (6.4-8.2); Sodium Level 140 mmol/L (136-145)
== END 2021-10-23 16:33 | disposition home or self-care (01) ==
PROVIDERS: Emergency Provider Emergency Medicine; PCP Family Medicine; Visit Provider Emergency Medicine
DX: K29.70 Gastritis, unspecified, without bleeding (principal); Z87.891 Personal history of nicotine dependence
CPT/HCPCS: 80053; 83690; 85025; 99284; A4216

== ENCOUNTER 2021-10-26 19:52 | Emergency (ER) | payer SELFPAY ==
[2021-10-26 19:53] VITALS: BP 156/91; PULSE 90; RESP 16; TEMP 36.1; O2SAT 100; BMI 21.4
--- NOTE | 2021-10-26 20:48 | ED.VIS.GI ---
HPI HPI - GI History of Present Illness Chief Complaint: Abd Pain Informant: patient Abdominal Pain/Flank Pain Onset: Month(s) Context: Gradual Onset Timing: Waxes and wanes Quality: Burning Location: Epigastric, RUQ and LUQ Worsened by: Nothing Relieved by: Antacids Nausea/Vomiting/Emesis GI Symptom: Positive for Nausea; Negative for Vomiting Diarrhea/Melena/Hematochezia GI Symptom: Negative for Diarrhea, Melena and Hematochezia Associated Symptoms Associated Symptoms: Negative for Dysuria and Hematuria Narrative Narrative: Patient presents with upper abdominal pain that has been getting worse over the past few days. Patient states she has had this pain for months. Patient states that it normally goes away with Pepcid. Patient states she took a dose of Pepcid tonight but it did not go away. Patient states she is scheduled to see a sheet metal operator for evaluation of possible gastric ulcer. Patient states she has not made the appointment yet. Patient states her pain is over her upper abdomen. Patient denies any radiation of the pain. Patient admits to nausea but denies any vomiting. Patient denies any diarrhea, melena, or hematochezia. Patient denies any urinary complaints. [facility] Medical History Arthritis GERD (gastroesophageal reflux disease) High cholesterol History of recurrent UTI (urinary tract infection) Hypertension Kidney disease Home Medications lisinopril [Zestril] 40 mg PO DAILY 09/20/16 [History Last Taken 01/12/21 04:00] cyclobenzaprine 10 mg PO TID PRN 12/15/18 [History Last Taken 04/02/19] atorvastatin 10 mg PO QHS 04/03/19 [History Last Taken 01/11/21 18:30] famotidine [Pepcid] 20 mg PO BID #20 tab 04/26/21 [Rx Last Taken Unknown] tizanidine 2 mg PO BID PRN #7 tab 06/16/21 [Rx Last Taken Unknown] Allergy/AdvReac Type Severity Reaction Status Date / Time ampicillin Allergy Hives Verified 10/26/21 19:55 cefadroxil hydrate Allergy Hives Verified 10/26/21 19:55 [From Duricef] cephalexin monohydrate Allergy Hives Verified 10/26/21 19:55 [From Keflex] codeine Allergy Hives Verified 10/26/21 19:55 erythromycin base Allergy Hives Verified 10/26/21 19:55 [Erythromycin Base] guaifenesin [From Entex LA] Allergy Hives Verified 10/26/21 19:55 hydrocodone bitartrate Allergy Hives Verified 10/26/21 19:55 [From Vicodin] hydrocortisone Allergy Hives Verified 10/26/21 19:55 [From Cortizone-10] Iodinated Contrast Media Allergy Hives Verified 10/26/21 19:55 [CONTRASTS] iodine Allergy Hives Verified 10/26/21 19:55 levofloxacin [From Levaquin] Allergy Hives Verified 10/26/21 19:55 morphine Allergy Hives Verified 10/26/21 19:55 nitrofurantoin Allergy Hives Verified 10/26/21 19:55 [From Macrobid] Penicillins Allergy Shortness Verified 10/26/21 19:55 of breath phenylephrine HCl Allergy Hives Verified 10/26/21 19:55 [From Entex LA] phenylpropanolamine HCl Allergy Hives Verified 10/26/21 19:55 [From Entex LA] Sulfa (Sulfonamide Allergy Shortness Verified 10/26/21 19:55 Antibiotics) of breath aspirin AdvReac Itching Verified 10/26/21 19:55 Surgical History History of section Social History Smoking Status: Former smoker ROS ROS ED Constitutional Constitutional ED: Denies chills or fever(s) Eyes Eyes: Denies blurry vision or change in vision ENT ENT ED: Denies rhinorrhea or sore throat Cardiovascular Cardiovascular: Denies chest pain or palpitations Respiratory/Chest Respiratory/Chest: Denies cough or dyspnea Gastrointestinal Gastrointestinal: Reports abdominal pain and nausea; Denies diarrhea or vomiting Genitourinary Genitourinary ED: Denies dysuria or hematuria Musculoskeletal Musculoskeletal: Reports back pain; Denies neck pain Integumentary Denies abscess or rash Neurologic Neurologic: Denies headache(s) or weakness Allergic/Immunologic Allergic/Immunologic ED: Denies mouth swelling or urticaria EXAM Physical Exam Const Vital Signs: 10/26/21 19:53 Temperature 97 F L Temperature Source Temporal Pulse Rate 90 Respiratory Rate 16 Blood Pressure 156/91 H Blood Pressure Mean 112 Pulse Ox 100 Oxygen Delivery Method Room Air Positive well nourished and well developed General Appearance ED: well developed HEENT Reports moist mucous membranes Neck supple and no JVD Resp normal respiratory effort and clear to auscultation bilaterally Cardio regular rate, regular rhythm and no murmurs GI normal to inspection, nondistended, normoactive bowel sounds and non-distended Auscultation: normoactive bowel sounds Palpation: soft and tender epigastric, LUQ and RUQ; Negative for guarding or rebound tenderness present Extremity normal to inspection General Extremety ED: Negative for edema or tenderness General Extremity: Negative for edema Neuro oriented x3, CN's II-XII intact bilaterally and no sensory deficits noted Sensorium / Orientation: alert Motor Exam: strength 5/5 throughout Psych mental status grossly normal Skin no rashes or lesions noted MDM MDM MDM Narrative Medical decision making narrative: Patient was given a GI cocktail. CBC and comprehensive metabolic profile were within normal limits. Lipase was normal. Urinalysis does not show any evidence of urinary tract infection. Patient was feeling better on reevaluation. Patient states GI cocktail relieved her pain. Patient was instructed to use [id number] Maalox or Mylanta as needed. Patient was instructed continue her Pepcid as previously prescribed. Patient was instructed to follow-up with her primary care physician in 5 to 7 days. Patient was also instructed to follow-up with her sheet metal operator in 3 to 5 days. Patient understood and was agreeable with the plan. All questions were answered. Lab Data Attestation: I reviewed the patient's lab results. Labs: Laboratory Results - last 24 hr 10/26/21 10/26/21 10/26/21 20:50 20:50 21:21 WBC 6.2 RBC 4.49 Hgb 14.2 Hct 43.4 MCV 96.7 MCH 31.6 MCHC 32.7 RDW Std Deviation 46.2 H RDW Coeff of Eduardo 12.9 Plt Count 227 MPV 10.8 Immature Gran % (Auto) 0.200 Neut % (Auto) 52.9 Lymph % (Auto) 37.0 [place] % (Auto) 7.9 Eos % (Auto) 1.5 Baso % (Auto) 0.5 Absolute Neuts (auto) 3.3 Absolute Lymphs (auto) 2.28 Nucleated RBC % 0 Sodium 139 Potassium 3.9 Chloride 105 Carbon Dioxide 30.0 Anion Gap 4 L BUN 13 Creatinine 1.15 H Estim Creat Clear Calc 40.43 Est GFR (MDRD) Af Amer 60 Est GFR (MDRD) Non-Af 50 L BUN/Creatinine Ratio 11.3 Glucose 106 Calcium 9.2 Total Bilirubin 0.30 AST 15 ALT 19 Alkaline Phosphatase 109 Total Protein 6.8 Albumin 3.1 L Globulin 3.7 Albumin/Globulin Ratio 0.8 L Lipase 147 Urine Color Straw Urine Clarity Clear Urine pH 6.5 Ur Specific [place] 1.010 Urine Protein Negative Urine Glucose (UA) Normal Urine Ketones Negative Urine Occult Blood 10 H Urine Nitrite Negative Urine Bilirubin Negative Urine Urobilinogen Normal Ur Leukocyte Esterase 25 H Urine RBC 0 SEEN Urine WBC 0 SEEN Ur Squamous Epith Cells 0 SEEN Urine Bacteria 0 SEEN Urine Mucus 0 SEEN Discharge Plan Triage Chief Complaint: Abd Pain ED Provider: Pipe Abdi Dx/Rx/DC Orders Clinical Impression: Gastritis Instructions: ED Gastritis (Adult) Prescriptions: No Action lisinopril [Zestril] 10 MG tablet 40 mg PO DAILY RF: 0 cyclobenzaprine 10 MG tablet 10 mg PO TID PRN (Reason: back spasms) RF: 0 atorvastatin 20 MG tablet 10 mg PO QHS RF: 0 famotidine [Pepcid] 20 mg tablet 20 mg PO BID Qty: 20 RF: 0 tizanidine 2 mg tablet 2 mg PO BID PRN (Reason: muscle spasticity) Qty: 7 RF: 0 Primary Care Provider: Dameon Ny Referrals: Dameon Ny MD [Primary Care Provider] - 3-5 Days Disposition Disposition: Home, Self Care
[2021-10-26] MEDS: Mag Hydrox/Al Hydrox/Simeth 30 ML UDC PO (21:01)
[2021-10-26 21:02] LABS: Absolute Lymphocyte Count 2.28 X10^3/uL (0.83-4.51); Absolute Neutrophil Count 3.3 X10^3/uL (2.0-7.7); Basophil# 0.03 X10^3/uL; Basophil% 0.5 % (0-1); Eosinophil# 0.09 X10^3/uL; Eosinophils% 1.5 % (0-5); Hematocrit 43.4 % (37-47); Hemoglobin 14.2 g/dL (12.0-15.0); Lymphocyte # 2.28 X10^3/ul (0.83-4.51); Mean Corp Hgb Conc 32.7 g/dL (32-36); Mean Corpuscular Hgb 31.6 pg (27.0-32.0); Mean Corpuscular Volume 96.7 fL (81-99); Mean Platelet Vol. 10.8 fl (6.2-12.0); Monocyte# 0.49 X10^3/uL; Monocyte% 7.9 % (0-10); NRBC Flagged by Analyzer 0 % (0-5); Neutrophil # 3.27 X10^3/uL (2.7-7.7); Neutrophil % 52.9 % (47-70); Platelet Count 227 K/mm3 (150-450); RBC Distribution Width CV 12.9 % (11.6-14.6); RBC Distribution Width SD 46.2 fl (35.1-43.9); Red Blood Count 4.49 M/mm3 (4.2-5.4); White Blood Count 6.2 K/mm3 (4.4-11.0)
[2021-10-26 21:20] LABS: ALB/GLOB Ratio 0.8 RATIO (0.9-2.4); AST(SGOT) 15 U/L (15-37); Alanine Aminotransfer ALT/SGPT 19 U/L (13-56); Albumin, Serum 3.1 g/dL (3.2-5.0); Alkaline Phosphatase 109 U/L (45-117); Anion Gap 4 (5-15); BUN 13 mg/dL (7-18); BUN/Creat Ratio 11.3 RATIO (10-20); Calcium,Total 9.2 mg/dL (8.5-10.1); Chloride 105 mmol/L (98-107); Creatinine, Serum 1.15 mg/dL (0.55-1.02); EST Glomerular Filtration Rate 50 mL/min (>60); Est Glom Filt Rate - Afr Amer 60 mL/min (>60); Estimated Creatinine Clearance 40.43 ml/min; Globulin 3.7 g/dL (2.2-4.2); Glucose 106 mg/dL (74-106); Lipase 147 U/L (73-393); Potassium 3.9 mmol/L (3.5-5.1); Protein, Total 6.8 g/dL (6.4-8.2); Sodium Level 139 mmol/L (136-145)
[2021-10-26 21:25] LABS: Bacteria 0 SEEN /hpf (None Seen); Mucous, Urine 0 SEEN /hpf (<or=2+); Red Blood Cells-Urine 0 SEEN /hpf (0-5); Squamous Epithelial Cells - UA 0 SEEN /hpf (5-10); White Blood Cells 0 SEEN /hpf (0-5)
[2021-10-26 21:40] LABS: Color, Urine Straw (Yellow); Glucose, Dipstick Normal (Normal); Ketone-Dipstick Negative (Negative); Leukocyte Esterase-Dipstick 25 /ul (Negative); Nitrite-Dipstick Negative (Negative); Occult Blood-Urine 10 /ul (Negative); Protein-Dipstick Negative (Negative); Urine Bilirubin Dipstick Negative (Negative); Urine Clarity Clear (Clear); Urine Urobilinogen Normal (Normal); Urine pH 6.5 (5.0 - 8.0)
== END 2021-10-26 22:01 | disposition home or self-care (01) ==
PROVIDERS: Emergency Provider Emergency Medicine; PCP Family Medicine; Visit Provider Emergency Medicine
DX: K29.70 Gastritis, unspecified, without bleeding (principal); I10 Essential (primary) hypertension; E78.00 Pure hypercholesterolemia, unspecified; M19.90 Unspecified osteoarthritis, unspecified site; Z79.899 Other long term (current) drug therapy; Z87.891 Personal history of nicotine dependence
CPT/HCPCS: 80053; 81001; 83690; 85025; 99284

== ENCOUNTER 2021-11-15 03:41 | Emergency (ER) | payer SELFPAY ==
[2021-11-15 03:43] VITALS: BP 131/89; PULSE 92; RESP 18; TEMP 36.4; O2SAT 98; BMI 21.4
--- NOTE | 2021-11-15 03:51 | EX.ED.DYSGE1 ---
HPI History of Present Illness Chief Complaint: Complaint Informant: patient Narrative Narrative: Patient has a history of frequent UTIs. She just started with dysuria frequency and urgency last night. She states her stomach does not hurt it just wu when she urinates. She has to get up frequently to go. She is only going small amounts. No blood is seen. No nausea vomiting. No fevers or chills. No back or flank pain. She does not feel ill she is just feels like she is just started with a urine infection again. She states the only antibiotic that she can take is doxycycline for these. [facility] Medical History Arthritis GERD (gastroesophageal reflux disease) High cholesterol History of recurrent UTI (urinary tract infection) Hypertension Kidney disease Home Medications lisinopril [Zestril] 40 mg PO DAILY 09/20/16 [History Last Taken 01/12/21 04:00] cyclobenzaprine 10 mg PO TID PRN 12/15/18 [History Last Taken 04/02/19] atorvastatin 10 mg PO QHS 04/03/19 [History Last Taken 01/11/21 18:30] famotidine [Pepcid] 20 mg PO BID #20 tab 04/26/21 [Rx Last Taken Unknown] tizanidine 2 mg PO BID PRN #7 tab 06/16/21 [Rx Last Taken Unknown] phenazopyridine [Pyridium] 100 mg PO TID PRN #9 tab 11/15/21 [Rx Last Taken Unknown] Allergy/AdvReac Type Severity Reaction Status Date / Time ampicillin Allergy Hives Verified 11/15/21 03:42 cefadroxil hydrate Allergy Hives Verified 11/15/21 03:42 [From Duricef] cephalexin monohydrate Allergy Hives Verified 11/15/21 03:42 [From Keflex] codeine Allergy Hives Verified 11/15/21 03:42 erythromycin base Allergy Hives Verified 11/15/21 03:42 [Erythromycin Base] guaifenesin [From Entex LA] Allergy Hives Verified 11/15/21 03:42 hydrocodone bitartrate Allergy Hives Verified 11/15/21 03:42 [From Vicodin] hydrocortisone Allergy Hives Verified 11/15/21 03:42 [From Cortizone-10] Iodinated Contrast Media Allergy Hives Verified 11/15/21 03:42 [CONTRASTS] iodine Allergy Hives Verified 11/15/21 03:42 levofloxacin [From Levaquin] Allergy Hives Verified 11/15/21 03:42 morphine Allergy Hives Verified 11/15/21 03:42 nitrofurantoin Allergy Hives Verified 11/15/21 03:42 [From Macrobid] Penicillins Allergy Shortness Verified 11/15/21 03:42 of breath phenylephrine HCl Allergy Hives Verified 11/15/21 03:42 [From Entex LA] phenylpropanolamine HCl Allergy Hives Verified 11/15/21 03:42 [From Entex LA] Sulfa (Sulfonamide Allergy Shortness Verified 11/15/21 03:42 Antibiotics) of breath aspirin AdvReac Itching Verified 11/15/21 03:42 Surgical History History of section Social History Smoking Status: Former smoker ROS ROS ED Constitutional Constitutional ED: Denies chills, fever(s) or sweats ENT ENT ED: Denies rhinorrhea or sore throat Cardiovascular Cardiovascular: Denies chest pain Respiratory/Chest Respiratory/Chest: Denies cough or dyspnea Gastrointestinal Gastrointestinal: Denies abdominal pain, constipation, diarrhea, melena, nausea or vomiting Genitourinary Genitourinary ED: Reports dysuria, urinary frequency and other Details: See history of present illness. ; Denies hematuria Musculoskeletal Musculoskeletal: Denies arthralgias, back pain or myalgias Integumentary Denies rash Neurologic Neurologic: Denies headache(s) Endocrine Endocrinology: Reports polyuria; Denies polydipsia Allergic/Immunologic Allergic/Immunologic ED: Denies mouth swelling or urticaria EXAM Physical Exam Const Vital Signs: 11/15/21 03:43 Temperature 97.5 F L Temperature Source Temporal Pulse Rate 92 Respiratory Rate 18 Blood Pressure 131/89 H Blood Pressure Mean 103 Pulse Ox 98 Oxygen Delivery Method Room Air Positive well nourished and well developed General Appearance ED: well developed and NAD; Negative for cyanotic or diaphoretic HEENT Reports moist mucous membranes Eyes General Eye ED: Negative for pale conjunctiva or scleral icterus Neck no JVD Resp normal respiratory effort and clear to auscultation bilaterally Cardio regular rate and regular rhythm GI normal to inspection, nondistended, normoactive bowel sounds, non-tender, non-distended and no masses Auscultation: normoactive bowel sounds Palpation: soft Back/Spine no CVA tenderness Extremity normal to inspection Neuro Sensorium / Orientation: alert Psych mental status grossly normal Skin no rashes or lesions noted MDM MDM MDM Narrative Medical decision making narrative: Urine is clear yellow no red cells no white cells no nitrites rare bacteria and only 25 leukocyte esterase. I talk with the patient. She is evidently been having frequent episodes of dysuria. But she states her cultures always come back negative. I do not think we need to acutely treat with antibiotics. She has no fevers chills nausea vomiting or flank pain. Her urine looks clean. She actually has follow-up tomorrow with a CAT scan. She has an appointment with both her primary physician as well as a urologist and a gynecologic urologist in [place]. I will write for a couple days of Pyridium to help with the burning pending cultures of today's urine. I explained that if the culture is positive at that point we would want to add antibiotics. Lab Data Attestation: I reviewed the patient's lab results. Labs: Laboratory Results - last 24 hr 11/15/21 03:56 Urine Color Yellow Urine Clarity Clear Urine pH 8.0 Ur Specific [place] 1.010 Urine Protein Negative Urine Glucose (UA) Normal Urine Ketones Negative Urine Occult Blood 25 H Urine Nitrite Negative Urine Bilirubin Negative Urine Urobilinogen Normal Ur Leukocyte Esterase 25 H Urine RBC 0-5 SEEN Urine WBC 0-5 SEEN Ur Squamous Epith Cells 0-5 SEEN Urine Bacteria RARE Urine Mucus 0 SEEN Discharge Plan Triage Chief Complaint: Complaint ED Provider: Lizandro Gunn Dx/Rx/DC Orders Clinical Impression: Dysuria Instructions: Dysuria Prescriptions: New phenazopyridine [Pyridium] 100 mg tablet 100 mg PO TID PRN (Reason: pain) Qty: 9 RF: 0 No Action lisinopril [Zestril] 10 MG tablet 40 mg PO DAILY RF: 0 cyclobenzaprine 10 MG tablet 10 mg PO TID PRN (Reason: back spasms) RF: 0 atorvastatin 20 MG tablet 10 mg PO QHS RF: 0 famotidine [Pepcid] 20 mg tablet 20 mg PO BID Qty: 20 RF: 0 tizanidine 2 mg tablet 2 mg PO BID PRN (Reason: muscle spasticity) Qty: 7 RF: 0 Primary Care Provider: Dameon Ny Referrals: Dameon Ny MD [Primary Care Provider] - Keep Maddy appointment Disposition Disposition: Home, Self Care
[2021-11-15 04:32] LABS: Mucous, Urine 0 SEEN /hpf (<or=2+)
[2021-11-15 04:39] LABS: Color, Urine Yellow (Yellow); Glucose, Dipstick Normal (Normal); Ketone-Dipstick Negative (Negative); Leukocyte Esterase-Dipstick 25 /ul (Negative); Nitrite-Dipstick Negative (Negative); Occult Blood-Urine 25 /ul (Negative); Protein-Dipstick Negative (Negative); Urine Bilirubin Dipstick Negative (Negative); Urine Clarity Clear (Clear); Urine Urobilinogen Normal (Normal)
[2021-11-15 05:04] LABS: Bacteria RARE /hpf (None Seen); Red Blood Cells-Urine 0-5 SEEN /hpf (0-5); Squamous Epithelial Cells - UA 0-5 SEEN /hpf (5-10); White Blood Cells 0-5 SEEN /hpf (0-5)
== END 2021-11-15 05:16 | disposition home or self-care (01) ==
PROVIDERS: Emergency Provider Emergency Medicine; PCP Family Medicine; Visit Provider Emergency Medicine
DX: R30.0 Dysuria (principal); I10 Essential (primary) hypertension; E78.00 Pure hypercholesterolemia, unspecified; K21.9 Gastro-esophageal reflux disease without esophagitis; Z79.899 Other long term (current) drug therapy; Z87.440 Personal history of urinary (tract) infections; Z87.891 Personal history of nicotine dependence
CPT/HCPCS: 81001; 87086; 87088; 99282

== ENCOUNTER 2021-12-07 05:50 | Emergency (ER) | payer SELFPAY ==
[2021-12-07 05:51] VITALS: BP 155/81; PULSE 86; RESP 14; TEMP 36.5; O2SAT 97; BMI 20.5
--- NOTE | 2021-12-07 06:16 | ED.VIS.GI ---
HPI HPI - GI History of Present Illness Chief Complaint: Nausea/Vomiting Narrative Narrative: Patient presenting with nausea. She states has had this for a while. She saw Dr. Ny for it and he believed that she had a stomach ulcer. She states that he referred her to GI, however the GI physician thought it was her gallbladder and sent her to Dr. Ortega. She states he is already had an MRI of her abdomen. She is already had blood work. She states that none of the physician she is seen have given her anything for nausea and she continues to be nauseous. She denies any abdominal pain, chest pain, shortness of breath, fever, chills. She denies diarrhea or constipation. She has no urinary symptoms. Patient states that her nausea is not associated with food her last meal was last evening when she ate it and banana and pudding. She states she does not like to eat a lot for bed. She reports that she had for lunch yesterday potatoes and chicken in the crockpot and she added absolutely no seasoning to it. [facility] Medical History Arthritis GERD (gastroesophageal reflux disease) High cholesterol History of recurrent UTI (urinary tract infection) Hypertension Kidney disease Home Medications lisinopril [Zestril] 40 mg PO DAILY 09/20/16 [History Last Taken 01/12/21 04:00] cyclobenzaprine 10 mg PO TID PRN 12/15/18 [History Last Taken 04/02/19] atorvastatin 10 mg PO QHS 04/03/19 [History Last Taken 01/11/21 18:30] famotidine [Pepcid] 20 mg PO BID #20 tab 04/26/21 [Rx Last Taken Unknown] ondansetron 4 mg PO Q8H PRN #10 tab 12/07/21 [Rx Last Taken Unknown] Allergy/AdvReac Type Severity Reaction Status Date / Time ampicillin Allergy Hives Verified 12/07/21 05:53 cefadroxil hydrate Allergy Hives Verified 12/07/21 05:53 [From Duricef] cephalexin monohydrate Allergy Hives Verified 12/07/21 05:53 [From Keflex] codeine Allergy Hives Verified 12/07/21 05:53 erythromycin base Allergy Hives Verified 12/07/21 05:53 [Erythromycin Base] guaifenesin [From Entex LA] Allergy Hives Verified 12/07/21 05:53 hydrocodone bitartrate Allergy Hives Verified 12/07/21 05:53 [From Vicodin] hydrocortisone Allergy Hives Verified 12/07/21 05:53 [From Cortizone-10] Iodinated Contrast Media Allergy Hives Verified 12/07/21 05:53 [CONTRASTS] iodine Allergy Hives Verified 12/07/21 05:53 levofloxacin [From Levaquin] Allergy Hives Verified 12/07/21 05:53 morphine Allergy Hives Verified 12/07/21 05:53 nitrofurantoin Allergy Hives Verified 12/07/21 05:53 [From Macrobid] Penicillins Allergy Shortness Verified 12/07/21 05:53 of breath phenylephrine HCl Allergy Hives Verified 12/07/21 05:53 [From Entex LA] phenylpropanolamine HCl Allergy Hives Verified 12/07/21 05:53 [From Entex LA] Sulfa (Sulfonamide Allergy Shortness Verified 12/07/21 05:53 Antibiotics) of breath aspirin AdvReac Itching Verified 12/07/21 05:53 Surgical History History of section Social History Smoking Status: Former smoker ROS ROS ED Constitutional Constitutional ED: Denies chills or fever(s) ENT ENT ED: Denies rhinorrhea or sore throat Cardiovascular Cardiovascular: Denies chest pain or palpitations Respiratory/Chest Respiratory/Chest: Denies cough, dyspnea or sputum Gastrointestinal Gastrointestinal: Reports nausea; Denies abdominal pain, constipation, diarrhea or vomiting Genitourinary Genitourinary ED: Denies dysuria or hematuria Musculoskeletal Musculoskeletal: Denies arthralgias or myalgias Integumentary Denies rash Neurologic Neurologic: Denies headache(s), paresthesias or weakness Psychiatric Psychiatric: Denies anxiety or depression EXAM Physical Exam Const Vital Signs: 12/07/21 05:51 Temperature 97.7 F L Temperature Source Oral Pulse Rate 86 Respiratory Rate 14 Blood Pressure 155/81 H Blood Pressure Mean 105 Pulse Ox 97 Oxygen Delivery Method Room Air Positive well nourished General Appearance ED: NAD; Negative for pallor HEENT normocephalic Eyes PERRL and EOMs intact bilaterally Resp normal respiratory effort and clear to auscultation bilaterally Cardio regular rate and regular rhythm GI non-tender and non-distended Auscultation: normoactive bowel sounds Palpation: soft Neuro Sensorium / Orientation: alert and oriented to person Psych mental status grossly normal and thought process normal Skin General Skin Exam: Negative for jaundice or pallor MDM MDM MDM Narrative Medical decision making narrative: Patient reports ongoing nausea. She states she is already had blood work done as well as an MRI. I reviewed her MRI on [facility] and it does show that she had some cholelithiasis without bile duct dilatation and no bile duct stone. 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 Her previous blood work showed that her CRP was normal. Her CBC showed a white cell count of 6.6, hemoglobin 14.6, hematocrit 43.3, platelets 205. CMP showed a normal creatinine of 1.21. Glucose is slightly elevated at 110. Total bili 0.5, ALT 23, AST 22, alk phosphatase 97. Lipase is 174. She states that she has follow-up with Dr. Ortega next week but nobody has given her anything for nausea as of yet. She request something for nausea. She is not reporting any pain. She has no other symptoms.Patient was given Zofran and a GI cocktail with improvement of her symptoms. She is given a prescription for Zofran for home. I do not believe she needs repeat blood work or imaging. She has follow-up with Dr. Ortega. Impression: 1. Nausea Discharge Plan Triage Chief Complaint: Nausea/Vomiting ED Provider: Hero Acosta Dx/Rx/DC Orders Instructions: Nausea Vomit Control Prescriptions: New ondansetron 4 mg tablet,disintegrating 4 mg PO Q8H PRN (Reason: nausea and vomiting) Qty: 10 RF: 0 No Action lisinopril [Zestril] 10 MG tablet 40 mg PO DAILY RF: 0 cyclobenzaprine 10 MG tablet 10 mg PO TID PRN (Reason: back spasms) RF: 0 atorvastatin 20 MG tablet 10 mg PO QHS RF: 0 famotidine [Pepcid] 20 mg tablet 20 mg PO BID Qty: 20 RF: 0 Primary Care Provider: Dameon Ny Referrals: Dameon Ny MD [Primary Care Provider] - Disposition Disposition: Home, Self Care
[2021-12-07] MEDS: Ondansetron ODT 4 MG Tablet PO (06:27)
[2021-12-07] MEDS: Mag Hydrox/Al Hydrox/Simeth 30 ML UDC PO (06:48)
[2021-12-07 06:56] VITALS: BP 150/84; PULSE 86; RESP 18; O2SAT 97
== END 2021-12-07 07:04 | disposition home or self-care (01) ==
PROVIDERS: Emergency Provider Student in an Organized Health Care Education/Training Program; PCP Family Medicine; Visit Provider Student in an Organized Health Care Education/Training Program
DX: R11.2 Nausea with vomiting, unspecified (principal); I10 Essential (primary) hypertension; E78.00 Pure hypercholesterolemia, unspecified; K21.9 Gastro-esophageal reflux disease without esophagitis; Z79.899 Other long term (current) drug therapy; Z87.891 Personal history of nicotine dependence
CPT/HCPCS: 99285; A4216

== ENCOUNTER 2021-12-18 15:41 | Emergency (ER) | payer SELFPAY ==
[2021-12-18 15:42] VITALS: BP 156/90; PULSE 95; RESP 16; TEMP 36.3; O2SAT 100; BMI 21.0
--- NOTE | 2021-12-18 16:10 | RAD_ITS ---
STUDY: X-RAY - ACUTE ABDOMINAL SERIES REASON FOR EXAM: Female, 66 years old. Abdominal bloating TECHNIQUE: Single view of the chest. Supine, and erect view(s) of the abdomen were obtained. COMPARISON: 12/30/2020 FINDINGS: Benign granuloma in the right lower lobe. No airspace consolidation. Normal size heart. Normal mediastinum and donna. Normal visualized pulmonary arteries. Normal visualized aortic arch and descending thoracic aorta. There is a non-specific bowel gas pattern. Fecal residue throughout the colon similar since prior exam. The soft tissue structures of the abdomen and pelvis are unremarkable. Kidneys are largely obscured by bowel contents. Small calcification overlying the right abdomen could represent a gallstone or renal calcification. Normal visualized osseous structures. Vascular phleboliths of the lower pelvis. RAD/Acute Abdomen Inc Chest IMPRESSION: Nonacute x-ray examination of the chest, abdomen, and pelvis. Electronically Signed: Ronny Ferris MD ([place]) at 16:30 EDT ,
--- NOTE | 2021-12-18 16:11 | EDS_ITS ---
HPI HPI - GI History of Present Illness Chief Complaint: Abd Pain Informant: patient and spouse/S.O. Narrative Narrative: Lower abdominal bloating an hour ago. No nausea vomiting diarrhea. Positive flatus. Typical bowel movements 1-2 times a week. She cannot recall her last one. She does not take stool softeners or opiate pain medicines. No urinary symptoms. x1 in 1986. No fevers. Reports occasional upper abdominal pain previously is being followed by her PCP referred to a surgeon in [place] Dr. Brown. Reports had gallstones, CT scan mid November had MRCP December 01. I reviewed the report. There is a small stone in the neck of the gallbladder, normal common bile duct 4 mm. Patient takes medicines for blood pressure cholesterol and reflux. Prior similar symptoms: Yes PFSH PFSH Medical History (Updated 12/18/21 @ 16:[address] Bob Vázquez, DO) Arthritis GERD (gastroesophageal reflux disease) High cholesterol History of calculus of gallbladder History of recurrent UTI (urinary tract infection) Hypertension Kidney disease Home Medications lisinopril [Zestril] 40 mg PO DAILY 09/20/16 [History Last Taken 01/12/21 04:00] atorvastatin 10 mg PO QHS 04/03/19 [History Last Taken 01/11/21 18:30] famotidine [Pepcid] 20 mg PO BID #20 tab 04/26/21 [Rx Last Taken Unknown] ondansetron 4 mg PO Q8H PRN #10 tab 12/07/21 [Rx Last Taken Unknown] polyethylene glycol 3350 [Miralax] 17 g PO DAILY #238 g 12/18/21 [Rx Last Taken Unknown] Allergy/AdvReac Type Severity Reaction Status Date / Time ampicillin Allergy Hives Verified 12/18/21 15:42 cefadroxil hydrate Allergy Hives Verified 12/18/21 15:42 [From Duricef] cephalexin monohydrate Allergy Hives Verified 12/18/21 15:42 [From Keflex] codeine Allergy Hives Verified 12/18/21 15:42 erythromycin base Allergy Hives Verified 12/18/21 15:42 [Erythromycin Base] guaifenesin [From Entex LA] Allergy Hives Verified 12/18/21 15:42 hydrocodone bitartrate Allergy Hives Verified 12/18/21 15:42 [From Vicodin] hydrocortisone Allergy Hives Verified 12/18/21 15:42 [From Cortizone-10] Iodinated Contrast Media Allergy Hives Verified 12/18/21 15:42 [CONTRASTS] iodine Allergy Hives Verified 12/18/21 15:42 levofloxacin [From Levaquin] Allergy Hives Verified 12/18/21 15:42 morphine Allergy Hives Verified 12/18/21 15:42 nitrofurantoin Allergy Hives Verified 12/18/21 15:42 [From Macrobid] Penicillins Allergy Shortness Verified 12/18/21 15:42 of breath phenylephrine HCl Allergy Hives Verified 12/18/21 15:42 [From Entex LA] phenylpropanolamine HCl Allergy Hives Verified 12/18/21 15:42 [From Entex LA] Sulfa (Sulfonamide Allergy Shortness Verified 12/18/21 15:42 Antibiotics) of breath aspirin AdvReac Itching Verified 12/18/21 15:42 Surgical History History of section Social History Smoking Status: Former smoker ROS ROS ED Constitutional Constitutional ED: Denies chills, fever(s) or sweats Eyes Eyes: Denies change in vision ENT ENT ED: Denies dysphagia or sore throat Cardiovascular Cardiovascular: Denies chest pain, leg edema, palpitations or racing heartbeat Respiratory/Chest Respiratory/Chest: Denies cough, dyspnea or dyspnea on exertion Gastrointestinal Gastrointestinal: Denies abdominal pain, diarrhea, nausea or vomiting Genitourinary Genitourinary ED: Denies dysuria, hematuria or urinary frequency Musculoskeletal Musculoskeletal: Denies back pain, extremity pain or neck pain Integumentary Denies rash or wounds Neurologic Neurologic: Denies headache(s), paresthesias or weakness EXAM Physical Exam Const Vital Signs: 12/18/21 15:42 12/18/21 16:56 Temperature 97.3 F L Temperature Source Temporal Pulse Rate 95 80 Respiratory Rate 16 15 Blood Pressure 156/90 H 142/76 H Blood Pressure Mean 112 Pulse Ox 100 97 Oxygen Delivery Method Room Air Positive well nourished and well developed General Appearance ED: well developed and NAD HEENT Reports moist mucous membranes normocephalic and atraumatic Eyes PERRL, EOMs intact bilaterally and conjunctivae normal General Eye ED: Yes normal appearance of both eyes Neck no lymphadenopathy and supple General: Negative for tenderness Chest Wall Chest: Negative for tenderness Resp normal respiratory effort and normal air movement Effort and Inspection: symmetric chest movement; Negative for respiratory distress Cardio regular rate, regular rhythm and no murmurs Peripheral Pulses: pulses 2+ throughout GI normal to inspection, nondistended, normoactive bowel sounds and non-tender GI Narrative: Negative Combs's McBurney's tenderness. No guarding or rebound. Normal active bowel sounds. Palpation: Negative for guarding or rebound tenderness present Back/Spine no CVA tenderness and no thoracic nor lumbar tenderness Extremity normal to inspection General Extremety ED: Negative for edema or tenderness General Extremity: Negative for edema Neuro oriented x3 and no sensory deficits noted Sensorium / Orientation: awake and alert Skin no rashes or lesions noted and no wounds MDM MDM MDM Narrative Medical decision making narrative: Patient with soft abdomen, no rebound or guarding. Reports of slight bloating lower abdomen. Normal bowel sounds. History concerning for constipation. Abdominal series shows no acute process there is stool buildup in the colon. Reevaluation symptoms resolved. She is placed on MiraLAX I discussed ramping up to 3 times a day and figure out regimen for her daily bowel movements. She states she is due for an upcoming colonoscopy. She is having surgery referral for her gallbladder which is not giving her symptoms currently. She is reassured. Return precautions. All questions were answered. Radiography Diagnostic Testing: Clinical Impression(s) from Imaging Studies Acute Abdomen Series 12/18/21 16:10 IMPRESSION: Nonacute x-ray examination of the chest, abdomen, and pelvis. Electronically Signed: Ronny Ferris MD ([place]) at 16:30 EDT Reading Location ID and State: [facility] / [place] , Service support , Discharge Plan Triage Chief Complaint: Abd Pain ED Provider: Bob Vázquez Dx/Rx/DC Orders Clinical Impression: Constipation, History of hypertension Instructions: ED Constipation (Adult) Prescriptions: New polyethylene glycol 3350 [Miralax] 17 gram/dose powder 17 g PO DAILY Qty: 238 RF: 0 No Action lisinopril [Zestril] 10 MG tablet 40 mg PO DAILY RF: 0 atorvastatin 20 MG tablet 10 mg PO QHS RF: 0 famotidine [Pepcid] 20 mg tablet 20 mg PO BID Qty: 20 RF: 0 ondansetron 4 mg tablet,disintegrating 4 mg PO Q8H PRN (Reason: nausea and vomiting) Qty: 10 RF: 0 Primary Care Provider: Dameon Ny Referrals: Dameon Ny MD [Primary Care Provider] - 5-7 Days Activity Restrictions/Additional Instructions: Use MiraLAX as prescribed, may use up to 3 times a day. He should be having daily bowel movements. Monitor symptoms. Follow-up with your doctor. Return if anything worsens. Disposition Disposition: Home, Self Care Discharge Date/Time: 12/18/21 16:57
[2021-12-18 16:56] VITALS: BP 142/76; PULSE 80; RESP 15; O2SAT 97
== END 2021-12-18 16:57 | disposition home or self-care (01) ==
PROVIDERS: Emergency Provider Emergency Medicine; PCP Family Medicine; Visit Provider Emergency Medicine
DX: K59.00 Constipation, unspecified (principal); I10 Essential (primary) hypertension; E78.00 Pure hypercholesterolemia, unspecified; K21.9 Gastro-esophageal reflux disease without esophagitis; M19.90 Unspecified osteoarthritis, unspecified site; Z79.899 Other long term (current) drug therapy; Z87.891 Personal history of nicotine dependence; Z87.440 Personal history of urinary (tract) infections
CPT/HCPCS: 74022; 99282

== ENCOUNTER 2022-01-06 06:29 | Emergency (ER) | payer SELFPAY ==
[2022-01-06 06:29] VITALS: BP 144/82; PULSE 82; RESP 18; TEMP 36.3; O2SAT 97; BMI 20.2
--- NOTE | 2022-01-06 06:37 | EDS_ITS ---
HPI History of Present Illness Chief Complaint: Flank Pain Detail of Chief Complaint: Bilateral lower back pain Informant: patient Onset/Context/Timing Onset: Today and Hours Context: Gradual Onset Injury: other Timing: Intermittent Quality: Dull and Aching Location: Lumbar Current Severity: Mild Maximum Severity: Mild Worsened by: improves with Movement and Bending Relieved by: Remaining Still Associated Symptoms Associated Symptoms: Negative for Numbness, Tingling, Radiation to Right Leg, Radiation to Left Leg, Abdominal Pain, Dysuria, Unable to Ambulate, Unable to Transfer, Urinary Retention and Urinary Incontinence Narrative Narrative: 58-year-old female history of reflux, kidney stones, UTI and hypertension. States that yesterday she could not get the door open in their pickup truck and she had to crawl climb in and out of the truck by climbing over the consult. She denies any dysuria. She denies any fever or chills. She said this does not feel anything like her kidney stones. This morning when she woke up she had pain in her lower back worse with movement. Denies any weakness or numbness. No incontinence. No falls or other trauma. She has never had any back surgery. Prior similar symptoms: Yes Recent Illness/Hospitalization: No PFSH PFSH Medical History Arthritis GERD (gastroesophageal reflux disease) High cholesterol History of calculus of gallbladder History of recurrent UTI (urinary tract infection) Hypertension Kidney disease Home Medications lisinopril [Zestril] 40 mg PO DAILY 09/20/16 [History Last Taken 01/12/21 04:00] atorvastatin 10 mg PO QHS 04/03/19 [History Last Taken 01/11/21 18:30] famotidine [Pepcid] 20 mg PO BID #20 tab 04/26/21 [Rx Last Taken Unknown] ondansetron 4 mg PO Q8H PRN #10 tab 12/07/21 [Rx Last Taken Unknown] polyethylene glycol 3350 [Miralax] 17 g PO DAILY #238 g 12/18/21 [Rx Last Taken Unknown] Allergy/AdvReac Type Severity Reaction Status Date / Time ampicillin Allergy Hives Verified 01/06/22 06:32 cefadroxil hydrate Allergy Hives Verified 01/06/22 06:32 [From [facility]] cephalexin monohydrate Allergy Hives Verified 01/06/22 06:32 [From Keflex] codeine Allergy Hives Verified 01/06/22 06:32 erythromycin base Allergy Hives Verified 01/06/22 06:32 [Erythromycin Base] guaifenesin [From Entex LA] Allergy Hives Verified 01/06/22 06:32 hydrocodone bitartrate Allergy Hives Verified 01/06/22 06:32 [From Vicodin] hydrocortisone Allergy Hives Verified 01/06/22 06:32 [From Cortizone-10] Iodinated Contrast Media Allergy Hives Verified 01/06/22 06:32 [CONTRASTS] iodine Allergy Hives Verified 01/06/22 06:32 levofloxacin [From Levaquin] Allergy Hives Verified 01/06/22 06:32 morphine Allergy Hives Verified 01/06/22 06:32 nitrofurantoin Allergy Hives Verified 01/06/22 06:32 [From Macrobid] Penicillins Allergy Shortness Verified 01/06/22 06:32 of breath phenylephrine HCl Allergy Hives Verified 01/06/22 06:32 [From Entex LA] phenylpropanolamine HCl Allergy Hives Verified 01/06/22 06:32 [From Entex LA] Sulfa (Sulfonamide Allergy Shortness Verified 01/06/22 06:32 Antibiotics) of breath aspirin AdvReac Itching Verified 01/06/22 06:32 Surgical History History of section Social History Smoking Status: Former smoker ROS ROS ED ROS Narrative Denies recent illness. Review of Systems ROS Unobtainable: Denies due to encephalopathy Constitutional Constitutional ED: Denies fever(s) Eyes Eyes: Denies change in vision ENT ENT ED: Denies ear pain Cardiovascular Cardiovascular: Denies chest pain Respiratory/Chest Respiratory/Chest: Denies dyspnea Gastrointestinal Gastrointestinal: Denies abdominal pain, diarrhea, nausea or vomiting Genitourinary Genitourinary ED: Denies dysuria Musculoskeletal Musculoskeletal: Reports back pain; Denies myalgias Integumentary Denies rash Neurologic Neurologic: Denies headache(s) or weakness Psychiatric Psychiatric: Denies anxiety or depression Endocrine Endocrinology: Denies polydipsia or polyuria Hematologic/Lymphatic Hematologic/Lymphatic: Denies easy bruising Allergic/Immunologic Allergic/Immunologic ED: Denies mouth swelling or urticaria EXAM Physical Exam Narrative Exam Narrative: 66-year-old female no acute distress. H EENT exam unremarkable. Neck nontender. Lungs clear to auscultation bilaterally. Heart regular rate and rhythm no murmur. Abdomen soft nontender normal bowel sounds no peritoneal signs. Patient moving all 4 extremities. 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 Normal dorsi plantar flexion. Negative straight leg raise. No cauda equina. Normal medial thigh sensation. Back exam she has reproducible paralumbar soft t issue tenderness on the left. There is no ecchymosis or bruising. No redness or warmth. No signs of trauma. Neurologic exam normal. Normal motor strength and sensation. Normal range of motion. Const Vital Signs: 01/06/22 06:29 Temperature 97.4 F L Temperature Source Oral Pulse Rate 82 Respiratory Rate 18 Blood Pressure 144/82 H Blood Pressure Mean 102 Pulse Ox 97 Oxygen Delivery Method Room Air Positive well nourished and well developed; Negative for obese, cachectic, contractures or unkempt General Appearance ED: well developed and NAD; Negative for unkempt, cachectic, contractures or pallor Nutritional Appearance: Negative for cachectic or obese HEENT Reports moist mucous membranes Negative for trauma or tenderness Eyes PERRL and EOMs intact bilaterally General Eye ED: Negative for pale conjunctiva or scleral icterus Neck no lymphadenopathy, supple and no JVD General: Negative for tenderness Resp normal respiratory effort and clear to auscultation bilaterally Effort and Inspection: Negative for pain with movement or other Auscultation: Negative for rales, rhonchi or wheezes Cardio regular rate, regular rhythm, S1 normal heart sound, S2 normal heart sound and no murmurs GI normal to inspection, nondistended, normoactive bowel sounds, soft to palpation, non-tender, non-distended and no masses Palpation: Negative for tender, guarding or rebound tenderness present Back/Spine normal to inspection; Negative for no thoracic nor lumbar tenderness Back/Spine Narrative: Left paralumbar soft tissue tenderness consistent with myofascial strain. General Back: Negative for CVA tenderness or scar(s) Cervical Spine: Negative for cervical spine tenderness and Negative for paracervical muscle tenderness Thoracic Spine / Upper Back: paraspinal muscle tenderness Lumbar Spine / Lower Back: straight leg raise negative bilaterally; Negative for ROM limited, straight leg raise positive right or straight leg raise positive - left Extremity normal to inspection General Extremety ED: Negative for edema or tenderness General Extremity: Negative for edema Psych mental status grossly normal Appearance: Negative for unkempt Mood & Affect: Negative for depressed or tearful Skin no rashes or lesions noted and no wounds General Skin Exam: Negative for jaundice or pallor MDM MDM MDM Narrative Medical decision making narrative: 66-year-old female yesterday had to climb in and out of a truck to door not being operational. This morning had staff lower back with some discomfort. She denies any weakness. No urinary symptoms. Exam is consistent with myofascial strain of her left lower back. She is not waiting currently for pain. She said to use her heating pad at home and Tylenol and Motrin. Discharge Plan Triage Chief Complaint: Flank Pain ED Provider: Michael Jesus Dx/Rx/DC Orders Clinical Impression: Acute lumbar myofascial strain, History of hypertension Instructions: ED Back Sprain/Strain Prescriptions: No Action lisinopril [Zestril] 10 MG tablet 40 mg PO DAILY RF: 0 atorvastatin 20 MG tablet 10 mg PO QHS RF: 0 famotidine [Pepcid] 20 mg tablet 20 mg PO BID Qty: 20 RF: 0 ondansetron 4 mg tablet,disintegrating 4 mg PO Q8H PRN (Reason: nausea and vomiting) Qty: 10 RF: 0 polyethylene glycol 3350 [Miralax] 17 gram/dose powder 17 g PO DAILY Qty: 238 RF: 0 Primary Care Provider: Dameon Ny Referrals: Dameon Ny MD [Primary Care Provider] - 1 Week if not improving Activity Restrictions/Additional Instructions: Hot shower, warm bath, massage and heating pad for your lower back. Motrin for pain and inflammation Tylenol for pain. Follow-up with your doctor if not improving or return if worse. Disposition Disposition: Home, Self Care
== END 2022-01-06 07:01 | disposition home or self-care (01) ==
LOC: ED 06:49
PROVIDERS: Emergency Provider Emergency Medicine; PCP Family Medicine; Visit Provider Emergency Medicine
DX: S39.012A Strain of muscle, fascia and tendon of lower back, initial encounter (principal); X50.1XXA Overexertion from prolonged static or awkward postures, initial encounter; Y93.39 Activity, other involving climbing, rappelling and jumping off; Y99.8 Other external cause status; Y92.812 Truck as the place of occurrence of the external cause; I10 Essential (primary) hypertension; E78.00 Pure hypercholesterolemia, unspecified; K21.9 Gastro-esophageal reflux disease without esophagitis; M19.90 Unspecified osteoarthritis, unspecified site; Z79.899 Other long term (current) drug therapy; Z87.891 Personal history of nicotine dependence
CPT/HCPCS: 99282

== ENCOUNTER 2022-01-10 05:49 | Emergency (ER) | payer SELFPAY ==
[2022-01-10 05:50] VITALS: PULSE 86; RESP 17; TEMP 36.5; O2SAT 99; BMI 20.7
[2022-01-10 05:53] VITALS: BP 139/83
[2022-01-10] MEDS: Famotidine 200 MG/20 ML MDV 20 MG in 0.9% Normal Saline (Pres. free 8 ML 300 MG IV (06:14)
[2022-01-10 06:19] LABS: Absolute Lymphocyte Count 1.84 X10^3/uL (0.83-4.51); Absolute Neutrophil Count 3.4 X10^3/uL (2.0-7.7); Basophil# 0.03 X10^3/uL; Basophil% 0.5 % (0-1); Eosinophil# 0.05 X10^3/uL; Eosinophils% 0.9 % (0-5); Hematocrit 47.5 % (37-47); Hemoglobin 15.7 g/dL (12.0-15.0); Lymphocyte # 1.84 X10^3/ul (0.83-4.51); Lymphocyte % 31.7 % (19-41); Mean Corp Hgb Conc 33.1 g/dL (32-36); Mean Corpuscular Hgb 31.2 pg (27.0-32.0); Mean Corpuscular Volume 94.2 fL (81-99); Mean Platelet Vol. 11.2 fl (6.2-12.0); Monocyte# 0.46 X10^3/uL; Monocyte% 7.9 % (0-10); NRBC Flagged by Analyzer 0 % (0-5); Neutrophil # 3.41 X10^3/uL (2.7-7.7); Neutrophil % 58.8 % (47-70); Platelet Count 230 K/mm3 (150-450); RBC Distribution Width CV 12.6 % (11.6-14.6); RBC Distribution Width SD 43.4 fl (35.1-43.9); Red Blood Count 5.04 M/mm3 (4.2-5.4); White Blood Count 5.8 K/mm3 (4.4-11.0)
[2022-01-10] MEDS: Ondansetron 4 MG/2 ML Vial IV (06:19)
--- NOTE | 2022-01-10 06:23 | EX.ED.DYSGE1 ---
HPI History of Present Illness Chief Complaint: General Illness Narrative Narrative: Patient presents with nausea and epigastric pain. Apparently patient's family members all have gastroenteritis with nausea vomiting diarrhea. Patient just woke up gastric pain she has not had any diarrhea. She has no back pain or tearing sensation she has no lower abdominal pain [facility] Medical History Arthritis GERD (gastroesophageal reflux disease) High cholesterol History of calculus of gallbladder History of recurrent UTI (urinary tract infection) Hypertension Kidney disease Home Medications lisinopril [Zestril] 40 mg PO DAILY 09/20/16 [History Last Taken 01/12/21 04:00] atorvastatin 10 mg PO QHS 04/03/19 [History Last Taken 01/11/21 18:30] famotidine [Pepcid] 20 mg PO BID #20 tab 04/26/21 [Rx Last Taken Unknown] ondansetron 4 mg PO Q8H PRN #10 tab 12/07/21 [Rx Last Taken Unknown] polyethylene glycol 3350 [Miralax] 17 g PO DAILY #238 g 12/18/21 [Rx Last Taken Unknown] omeprazole 20 mg PO DAILY #30 cap 01/10/22 [Rx Last Taken Unknown] ondansetron 4 mg PO Q8H #10 tab 01/10/22 [Rx Last Taken Unknown] Allergy/AdvReac Type Severity Reaction Status Date / Time ampicillin Allergy Hives Verified 01/06/22 06:32 cefadroxil hydrate Allergy Hives Verified 01/06/22 06:32 [From Duricef] cephalexin monohydrate Allergy Hives Verified 01/06/22 06:32 [From Keflex] codeine Allergy Hives Verified 01/06/22 06:32 erythromycin base Allergy Hives Verified 01/06/22 06:32 [Erythromycin Base] guaifenesin [From Entex LA] Allergy Hives Verified 01/06/22 06:32 hydrocodone bitartrate Allergy Hives Verified 01/06/22 06:32 [From Vicodin] hydrocortisone Allergy Hives Verified 01/06/22 06:32 [From Cortizone-10] Iodinated Contrast Media Allergy Hives Verified 01/06/22 06:32 [CONTRASTS] iodine Allergy Hives Verified 01/06/22 06:32 levofloxacin [From Levaquin] Allergy Hives Verified 01/06/22 06:32 morphine Allergy Hives Verified 01/06/22 06:32 nitrofurantoin Allergy Hives Verified 01/06/22 06:32 [From Macrobid] Penicillins Allergy Shortness Verified 01/06/22 06:32 of breath phenylephrine HCl Allergy Hives Verified 01/06/22 06:32 [From Entex LA] phenylpropanolamine HCl Allergy Hives Verified 01/06/22 06:32 [From Entex LA] Sulfa (Sulfonamide Allergy Shortness Verified 01/06/22 06:32 Antibiotics) of breath aspirin AdvReac Itching Verified 01/06/22 06:32 Surgical History History of section Social History Smoking Status: Former smoker ROS ROS ED ROS Narrative Past medical history: Reviewed, history of GERD, arthritis, hypertension Medications: Reviewed Social history: Noncontributory Review of systems: All systems negative except as indicated General: No fever Eyes: No visual changes ENT: No upper airway congestion, normal voice Neck: No neck pain Cardiovascular: No chest pain Respiratory: No shortness of breath or cough Gastrointestinal: As in HPI Genitourinary: No dysuria Musculoskeletal: Denies myalgias no difficulty with ambulation Skin: No rash Neurological: No memory loss, confusion or any focal weakness Psych: No recent behavioral changes Hematologic: No easy bleeding or easy bruising EXAM Physical Exam Narrative Exam Narrative: Physical exam General: Well nourished, Well developed, No Acute Distress Head: Normocephalic, Atraumatic Eyes: Conjunctiva not pale ENT: Moist mucous membranes Neck: Supple, Nontender, No lymphadenopathy Cardiovascular: Regular rate, Regular rhythm Respiratory: No distress, CTA bilaterally Abdomen: Soft, very slight epigastric tenderness. No guarding or rebound. No right upper quadrant pain. Negative Combs's. No lower abdominal pain. Back: Nontender, Normal Inspection. Negative for: CVA tenderness Extremities: Nontender, No edema Skin: Normal color, No rash Neurological: Alert, Normal Strength, Normal Sensation Psychological: Normal affect Const Vital Signs: 01/10/22 05:50 01/10/22 05:52 01/10/22 05:53 Temperature 97.7 F L Temperature Source Temporal Pulse Rate 86 Respiratory Rate 17 Respiratory Effort Normal Respiratory Pattern Normal Blood Pressure 139/83 H Blood Pressure Mean 101 Pulse Ox 99 Oxygen Delivery Method Room Air Warm Humidified Isolette MDM MDM MDM Narrative Medical decision making narrative: Patient appears well, she does have gastritis history, this may be just gastritis or may be early gastroenteritis regardless she has a normal white count she appears well she has a normal work-up and she improved I will discharge her in stable condition, she tells me she has Zofran at home, however she is not on a PPI which I will. Lab Data Labs: Laboratory Results - last 24 hr 01/10/22 06:12 WBC 5.8 RBC 5.04 Hgb 15.7 H Hct 47.5 H MCV 94.2 MCH 31.2 MCHC 33.1 RDW Std Deviation 43.4 RDW Coeff of Eduardo 12.6 Plt Count 230 MPV 11.2 Immature Gran % (Auto) 0.200 Neut % (Auto) 58.8 Lymph % (Auto) 31.7 Hudspeth % (Auto) 7.9 Eos % (Auto) 0.9 Baso % (Auto) 0.5 Absolute Neuts (auto) 3.4 Absolute Lymphs (auto) 1.84 Nucleated RBC % 0 Discharge Plan Triage Chief Complaint: General Illness ED Provider: Parish Valenzuela Dx/Rx/DC Orders Clinical Impression: Chronic GERD, Nausea, Acute epigastric pain Instructions: ED Vomiting and Diarrhea ... Prescriptions: New omeprazole 20 mg capsule,delayed release(DR/EC) 20 mg PO DAILY Qty: 30 RF: 0 ondansetron 4 mg tablet,disintegrating 4 mg PO Q8H Qty: 10 RF: 0 No Action lisinopril [Zestril] 10 MG tablet 40 mg PO DAILY RF: 0 atorvastatin 20 MG tablet 10 mg PO QHS RF: 0 famotidine [Pepcid] 20 mg tablet 20 mg PO BID Qty: 20 RF: 0 ondansetron 4 mg tablet,disintegrating 4 mg PO Q8H PRN (Reason: nausea and vomiting) Qty: 10 RF: 0 polyethylene glycol 3350 [Miralax] 17 gram/dose powder 17 g PO DAILY Qty: 238 RF: 0 Primary Care Provider: Dameon Ny Referrals: Dameon Ny MD [Primary Care Provider] - 3-5 Days Disposition Disposition: Home, Self Care
[2022-01-10 06:36] LABS: ALB/GLOB Ratio 0.8 RATIO (0.9-2.4); AST(SGOT) 32 U/L (15-37); Alanine Aminotransfer ALT/SGPT 25 U/L (13-56); Albumin, Serum 3.4 g/dL (3.2-5.0); Alkaline Phosphatase 90 U/L (45-117); Anion Gap 5 (5-15); BUN 7 mg/dL (7-18); BUN/Creat Ratio 6.4 RATIO (10-20); Calcium,Total 9.2 mg/dL (8.5-10.1); Chloride 107 mmol/L (98-107); EST Glomerular Filtration Rate 52 mL/min (>60); Est Glom Filt Rate - Afr Amer 63 mL/min (>60); Estimated Creatinine Clearance 42.27 ml/min; Globulin 4.1 g/dL (2.2-4.2); Glucose 100 mg/dL (74-106); Lipase 125 U/L (73-393); Potassium 4.3 mmol/L (3.5-5.1); Protein, Total 7.5 g/dL (6.4-8.2); Sodium Level 139 mmol/L (136-145)
[2022-01-10 06:49] VITALS: BP 124/74; PULSE 78; RESP 15; O2SAT 99
== END 2022-01-10 06:50 | disposition home or self-care (01) ==
LOC: ED 06:36
PROVIDERS: Emergency Provider Emergency Medicine; PCP Family Medicine; Visit Provider Emergency Medicine
DX: K21.9 Gastro-esophageal reflux disease without esophagitis (principal); E78.00 Pure hypercholesterolemia, unspecified; I10 Essential (primary) hypertension; M19.90 Unspecified osteoarthritis, unspecified site; Z79.899 Other long term (current) drug therapy; Z87.891 Personal history of nicotine dependence
CPT/HCPCS: 80053; 83690; 85025; 96361; 96374; 96375; 99282; J7040; A4216; J2405; J3490

== ENCOUNTER 2022-04-20 17:14 | Emergency (ER) | payer MEDICARE, SELFPAY ==
[2022-04-20 17:15] VITALS: BP 149/84; PULSE 106; RESP 16; TEMP 36.9; O2SAT 99; BMI 20.5
--- NOTE | 2022-04-20 17:30 | RAD_ITS ---
STUDY: XR Shoulder Min 2 Views REASON FOR EXAM: Female, 67 years old. pain TECHNIQUE: XR Shoulder Min 2 Views RIGHT COMPARISON: None. FINDINGS: Normal glenohumeral articulation. There is degenerative arthrosis of the acromioclavicular joint without inferior osseous spur formation. Normal acromion. Normal humeral head and visualized proximal humerus. The soft tissue structures are unremarkable. Normal visualized pulmonary apex. RAD/Shoulder min 2 Views IMPRESSION: There are no acute findings of the shoulder. Electronically Signed: Roni Méndez MD at 18:09 EDT Reading Location ID and State: [id number] / [place] , Service support ,
--- NOTE | 2022-04-20 17:43 | EDS_ITS ---
HPI History of Present Illness Chief Complaint: Fall Narrative Narrative: 67-year-old female presenting with right shoulder pain. She states had a mechanical fall going down the driveway and fell and caught herself with her hands. She complains of pain in the right shoulder posteriorly. She has not lost any range of motion. She denies numbness or tingling. She has no scratches or abrasions. She did not hit her head or lose conscious. She denies neck pain. She has no chest pain or rib pain. Patient took Tylenol prior to arrival. [facility] Medical History Arthritis GERD (gastroesophageal reflux disease) High cholesterol History of calculus of gallbladder History of degenerative disc disease History of recurrent UTI (urinary tract infection) History of scoliosis Hypertension Kidney disease Home Medications lisinopril 10 mg tablet (Zestril) 40 mg PO DAILY HTN 09/20/16 [History Last Jimy en 01/12/21 04:00] atorvastatin 20 mg tablet 10 mg PO QHS cholesterol 04/03/19 [History Last Taken 01/11/21 18:30] famotidine 20 mg tablet (Pepcid) 20 mg PO BID #20 tabs 04/26/21 [Rx Last Taken Unknown] ondansetron 4 mg disintegrating tablet 4 mg PO Q8H PRN nausea and vomiting #10 tabs 12/07/21 [Rx Last Taken Unknown] polyethylene glycol 3350 17 gram/dose oral powder (Miralax) 17 g PO DAILY #238 g [place] 12/18/21 [Rx Last Taken Unknown] omeprazole 20 mg capsule,delayed release 20 mg PO DAILY #30 caps 01/10/22 [Rx Last Taken Unknown] ondansetron 4 mg disintegrating tablet 4 mg PO Q8H #10 tabs 01/10/22 [Rx Last Taken Unknown] lidocaine 5 % topical patch (Lidoderm) 1 patch topical DAILY #15 ea 04/20/22 [Rx Last Taken Unknown] Allergy/AdvReac Type Severity Reaction Status Date / Time ampicillin Allergy Hives Verified 04/20/22 17:18 cefadroxil hydrate Allergy Hives Verified 04/20/22 17:18 [From Duricef] cephalexin monohydrate Allergy Hives Verified 04/20/22 17:18 [From Keflex] codeine Allergy Hives Verified 04/20/22 17:18 erythromycin base Allergy Hives Verified 04/20/22 17:18 [Erythromycin Base] guaifenesin [From Entex LA] Allergy Hives Verified 04/20/22 17:18 hydrocodone bitartrate Allergy Hives Verified 04/20/22 17:18 [From Vicodin] hydrocortisone Allergy Hives Verified 04/20/22 17:18 [From Cortizone-10] Iodinated Contrast Media Allergy Hives Verified 04/20/22 17:18 [CONTRASTS] iodine Allergy Hives Verified 04/20/22 17:18 levofloxacin [From Levaquin] Allergy Hives Verified 04/20/22 17:18 morphine Allergy Hives Verified 04/20/22 17:18 nitrofurantoin Allergy Hives Verified 04/20/22 17:18 [From Macrobid] Penicillins Allergy Shortness Verified 04/20/22 17:18 of breath phenylephrine HCl Allergy Hives Verified 04/20/22 17:18 [From Entex LA] phenylpropanolamine HCl Allergy Hives Verified 04/20/22 17:18 [From Entex LA] Sulfa (Sulfonamide Allergy Shortness Verified 04/20/22 17:18 Antibiotics) of breath aspirin AdvReac Itching Verified 04/20/22 17:18 Surgical History History of section Social History Smoking Status: Former smoker ROS ROS ED Constitutional Constitutional ED: Denies chills or fever(s) Eyes Eyes: Denies change in vision ENT ENT ED: Denies rhinorrhea or sore throat Cardiovascular Cardiovascular: Denies chest pain or palpitations Respiratory/Chest Respiratory/Chest: Denies cough or dyspnea Gastrointestinal Gastrointestinal: Denies abdominal pain, constipation, diarrhea, melena or vomiting Genitourinary Genitourinary ED: Denies dysuria or hematuria Musculoskeletal Musculoskeletal: Reports other Details: Right shoulder pain Integumentary Denies abscess or Abrasions Neurologic Neurologic: Denies headache(s) or weakness Psychiatric Psychiatric: Denies anxiety or depression EXAM Physical Exam Const Vital Signs: 04/20/22 17:15 04/20/22 17:25 Temperature 98.4 F Temperature Source Temporal Pulse Rate 106 H Respiratory Rate 16 Respiratory Effort Normal Respiratory Depth Normal Respiratory Pattern Normal Blood Pressure 149/84 H Blood Pressure Mean 105 Pulse Ox 99 Oxygen Delivery Method Room Air Room Air Positive well nourished General Appearance ED: NAD HEENT Reports moist mucous membranes normocephalic and atraumatic Eyes PERRL and EOMs intact bilaterally Chest Wall inspection of chest normal Resp normal respiratory effort and clear to auscultation bilaterally Cardio regular rate and regular rhythm GI non-tender Back/Spine Cervical Spine: Negative for cervical spine tenderness Thoracic Spine / Upper Back: Negative for thoracic spinal tenderness Extremity Extremity Narrative: Mild tenderness palpation to the right scapula superiorly. Patient maintains full range of motion in flexion, extension, abduction, abduction, internal and external rotation. No bruising. No swelling. No deformity. Neuro oriented x3, CN's II-XII intact bilaterally, moves all extremities, no focal motor deficits and no sensory deficits noted Sensorium / Orientation: alert Psych mental status grossly normal MDM MDM MDM Narrative Medical decision making narrative: Patient is examined next significant for very minor pain at the posterior aspect of the shoulder. She maintains full range of motion actively and past relief. There is no sign of trauma. Patient given Lidoderm patch and she took Tylenol prior to arrival. X-ray of the right shoulder my interpretation shows no acute fracture or subluxation. Patient counseled on alternating ice and heat. She will take Tylenol as she has she cannot take ibuprofen because of her kidneys. I will give the patient some Lidoderm she is to follow-up with her PCP to ensure resolution. Impression: 1. right shoulder contusion 2. Mechanical Lab Data Attestation: I reviewed the patient's lab results. Discharge Plan Triage Chief Complaint: Fall ED Provider: Hero Acosta Dx/Rx/DC Orders Instructions: ED Fall Prevention, ED Shoulder Contusion Prescriptions: New lidocaine [Lidoderm] 5 % adhesive patch,medicated 1 patch topical DAILY Qty: 15 0RF Rx Instructions: leave on most painful area for up to 12 hrs No Action lisinopril [Zestril] 10 MG tablet 40 mg PO DAILY atorvastatin 20 MG tablet 10 mg PO QHS famotidine [Pepcid] 20 mg tablet 20 mg PO BID Qty: 20 0RF ondansetron 4 mg tablet,disintegrating 4 mg PO Q8H PRN (Reason: nausea and vomiting) Qty: 10 0RF polyethylene glycol 3350 [Miralax] 17 gram/dose powder 17 g PO DAILY Qty: 238 0RF omeprazole 20 mg capsule,delayed release(DR/EC) 20 mg PO DAILY Qty: 30 0RF ondansetron 4 mg tablet,disintegrating 4 mg PO Q8H Qty: 10 0RF Primary Care Provider: Dameon Ny Referrals: Dameon Ny MD [Primary Care Provider] - Disposition Disposition: Home, Self Care
[2022-04-20] MEDS: Lidocaine 5% Patch 1 PATCH TOPICAL (18:08)
[2022-04-20 18:27] VITALS: BP 116/75; PULSE 72; RESP 15; O2SAT 98
== END 2022-04-20 18:27 | disposition home or self-care (01) ==
PROVIDERS: Emergency Provider Student in an Organized Health Care Education/Training Program; PCP Family Medicine; Visit Provider Student in an Organized Health Care Education/Training Program
DX: S40.011A Contusion of right shoulder, initial encounter (principal); W18.30XA Fall on same level, unspecified, initial encounter; Y93.01 Activity, walking, marching and hiking; Y99.8 Other external cause status; I10 Essential (primary) hypertension; E78.00 Pure hypercholesterolemia, unspecified; M19.90 Unspecified osteoarthritis, unspecified site; Z79.899 Other long term (current) drug therapy; Z87.891 Personal history of nicotine dependence
CPT/HCPCS: 73030; 99283

== ENCOUNTER 2025-06-22 14:11 | Emergency (ER) | payer MEDICARE, SELFPAY ==
[2025-06-22 14:13] VITALS: BP 161/90; PULSE 83; RESP 18; TEMP 36.6; O2SAT 98; BMI 23.1
--- NOTE | 2025-06-22 14:23 | EDS_ITS ---
HPI HPI - GI History of Present Illness Chief Complaint: Abd Pain Narrative Narrative: 70-year-old female past medical history of GERD and pancreatic cyst presents with at least 1 week of epigastric burning. States sometimes she gets occasional sharp pains it is very fleeting. She has known history of gallstones as well. She states that today she had increased burning and was not sure if it was her gallstones or her GERD. She denies any fevers or chills, no nausea or vomiting, no pain increase with food intake. She has been able to eat and drink without difficulty. No diarrhea, no other symptoms. She states she takes Pepcid 20 mg twice a day. She is post to have upper GI endoscopy performed by Dr. Sheikh next month. No other exacerbating or alleviating factors. [facility] Medical History History of scoliosis History of degenerative disc disease History of calculus of gallbladder Kidney disease History of recurrent UTI (urinary tract infection) Arthritis High cholesterol Hypertension GERD (gastroesophageal reflux disease) Home Medications ?Medication ?Instructions ?Recorded ?Last Taken ?Type lisinopril 10 mg tablet (Zestril) 40 mg PO DAILY HTN 1 11/21/15 01/12/21 04:00 History atorvastatin 20 mg tablet 10 mg PO QHS cholesterol 12/1801/11/21 18:30 History famotidine 20 mg tablet (Pepcid) 20 mg PO BID #20 tabs 04/26/21 Unknown Rx ondansetron 4 mg disintegrating 4 mg PO Q8H PRN nausea and 12/07/21 Unknown Rx tablet vomiting #10 tabs Allergy/AdvReac Type Severity Reaction Status Date / Time ampicillin Allergy Hives Verified 06/22/25 14:13 cefadroxil hydrate (From Allergy Hives Verified 06/22/25 14:13 Duricef) cephalexin monohydrate (From Allergy Hives Verified 06/22/25 14:13 Keflex) codeine Allergy Hives Verified 06/22/25 14:13 erythromycin base Allergy Hives Verified 06/22/25 14:13 (Erythromycin Base) guaifenesin (From Entex LA) Allergy Hives Verified 06/22/25 14:13 hydrocodone bitartrate (From Allergy Hives Verified 06/22/25 14:13 Vicodin) hydrocortisone (From Allergy Hives Verified 06/22/25 14:13 Cortizone-10) Iodinated Contrast Media Allergy Hives Verified 06/22/25 14:13 (CONTRASTS) iodine Allergy Hives Verified 06/22/25 14:13 levofloxacin (From Levaquin) Allergy Hives Verified 06/22/25 14:13 morphine Allergy Hives Verified 06/22/25 14:13 nitrofurantoin (From Allergy Hives Verified 06/22/25 14:13 Macrobid) Penicillins Allergy Shortness Verified 06/22/25 14:13 of breath phenylephrine HCl (From Allergy Hives Verified 06/22/25 14:13 Entex LA) phenylpropanolamine HCl Allergy Hives Verified 06/22/25 14:13 (From Entex LA) Sulfa (Sulfonamide Allergy Shortness Verified 06/22/25 14:13 Antibiotics) of breath Surgical History History of section Social History Smoking Status: Former smoker ROS ROS ED ROS Narrative Review of systems positive for epigastric burning with occasional fleeting pain for at least a week, worse today. No fevers or chills, no nausea or vomiting, no right upper quadrant pain. No problems with bowel movements. No exacerbation with food. No relief with eating or drinking either. EXAM Physical Exam Narrative Exam Narrative: Afebrile. Vital signs noted. Nontoxic-appearing. Cardiovascular examination reveals a regular rate and rhythm. Lungs are clear to auscultation bilaterally. The abdomen is soft and nontender without guarding or rebound. Negative Combs sign. Positive bowel sounds. Neurological examination is nonfocal, nonlateralizing. No appreciable pedal edema. Const Vital Signs: 06/22/25 14:13 Temperature 97.9 F Temperature Source Temporal Pulse Rate 83 Respiratory Rate 18 Blood Pressure 161/90 H Blood Pressure Mean 113 Pulse Ox 98 Oxygen Delivery Method Room Air MDM MDM MDM Narrative Medical decision making narrative: The differential diagnosis includes but not limited to acute pancreatitis versus cholecystitis versus GERD versus peptic ulcer disease. She may also have a hiatal hernia. I had a lengthy discussion with the patient. I have very low suspicion clinically for any acute gallbladder pathology or gallstone pancreatitis. I reviewed on her phone with her her recent CT scan that showed that she had a pancreatic cyst and gallstones. Through shared decision making, it was felt that laboratory work and imaging is not indicated. She states that she has had GI cocktails in the past which help her with her epigastric burning. She was administered a GI cocktail. I feel that her medical screening examination is negative for any emergent condition. She would like to be discharged to follow-up with her physicians. Repeat examination at approximately 1505 shows her resting comfortably and she states that the GI cocktail improved her symptoms. At this point in time, she was told to increase her Pepcid dosing to 40 mg twice a day and follow-up with Dr. Sheikh and her primary care provider. Return instructions to the emergency department were reviewed. Disposition is discharged home in stable condition. History & Record Review Discussion w/independent historian: Patient Additional record(s) reviewed:: Prior ED visit Discharge Plan Triage Chief Complaint: Abd Pain ED Provider: [place] Dx/Rx/DC Orders Clinical Impression: Gastroesophageal reflux disease, Abdominal pain, Encounter for medical screening examination Instructions: ED Abdominal Pain Unkn Cause Fem, ED GERD (Adult), ED Screening Exam Medical Nonurgent Prescriptions: No Action lisinopril [Zestril] 10 MG tablet 40 mg PO DAILY atorvastatin 20 MG tablet 10 mg PO QHS famotidine [Pepcid] 20 mg tablet 20 mg PO BID Qty: 20 0RF ondansetron 4 mg tablet,disintegrating 4 mg PO Q8H PRN (Reason: nausea and vomiting) Qty: 10 0RF Primary Care Provider: Dameon Ny Referrals: Dameon Ny MD [Primary Care Provider, Medical] - 3-5 Days if not improving Activity Restrictions/Additional Instructions: Return with fever, nausea and vomiting, increased abdominal pain, new or worsening symptoms. Continue your Pepcid and have your upper endoscopy performed as scheduled. Increase your Pepcid dosing to 40 mg twice a day. Follow-up with Dr. Sheikh. Print Language: Citizen [place] Disposition Disposition: Home, Self Care
[2025-06-22] MEDS: Lidocaine 2% Viscous15 ML UDC 15 ML PO (14:27)
[2025-06-22 15:25] VITALS: BP 158/81; PULSE 88; RESP 14; TEMP 36.6; O2SAT 98
--- OUTSIDE RECORDS SUMMARY | 2025-06-22 16:48 | XMS RPT_ITS | CCD ---
Author Organization [facility] Care Team Providers Care Life Cycle Assessment Analyst Name Role Phone Bridget De Luna MD Primary Care Provider ANABEL COBIAN Primary Care Provider DO MATHEW DURAN Emergency Provider [phone] Bridget De Luna MD Primary Care Provider ANABEL COBIAN Attending Unavailable ANABEL COBIAN Primary Care Unavailable ANABEL COBIAN Referring Unavailable ANABEL COBIAN Attending Unavailable ANABEL COBIAN Primary Care Unavailable ANABEL COBIAN Referring Unavailable ANABEL COBAIN Attending Unavailable ANABEL COBIAN Primary Care Unavailable ANABEL COBIAN Referring Unavailable Bridget De Luna MD Primary Care Provider Bridget De Luna MD Primary Care Provider [phone] STEPHANI MERINO Attending Unavailable BRIDGET DE LUNA Primary Care Unavailable JACI HOLLY Attending Unavailable JACI HOLLY Attending Unavailable JACI HOLLY Referring Unavailable UNKNOWN, PROVIDER Primary Care Unavailable UNKNOWN, PROVIDER Attending Unavailable UNKNOWN, PROVIDER Referring Unavailable ROSIE REDDING Attending Unavailable UNKNOWN, PROVIDER Primary Care Unavailable JONAH ROBERTS Attending Unavaila JONAH Mirza Referring Unavaila BRIDGET Kirkland MD Referring Unavailable LAYO CARLTON DO Primary Care Unavailable LAYO CARLTON DO Attending Unavailable BRIDGET DE LUNA MD Consulting Unavailable LAYO CARLTON DO Admitting Unavailable PROVIDER, UNKNOWN Consulting Unavailable BRIDGET DE LUNA MD Consulting Unavailable LEXII FELIX MD Primary Care Unavailable LEXII FELIX MD Attending Unavailable LEXII FELIX MD Admitting Unavailable BRIDGET DE LUNA MD Referring Unavailable PROVIDER, UNKNOWN Consulting Unavailable ANNAMARIE, BRIDGET CARPENTER Consulting Unavailable LAYO CARLTON DO Primary Care Unavailable LAYO CARLTON DO Attending Unavailable LAYO CARLTON DO Admitting Unavailable ANNAMARIE, BRIDGET CARPENTER Referring Unavailable PROVIDER, UNKNOWN Consulting Unavailable ANNAMARIE, BRIDGET CARPENTER Consulting Unavailable SHARONBRIDGET Primary Care Unavailable SHARONBRIDGET CORTEZ Attending Unavailable SHARONBRIDGET CORTEZ Admitting Unavailable ANNAMARIE, BRIDGET CARPENTER Referring Unavailable PROVIDER, UNKNOWN Consulting Unavailable ANNAMARIE, BRIDGET CARPENTER Consulting Unavailable DAWIT THORNTON Primary Care Unavailable DAWIT THORNTON Attending Unavailable DAWIT THORNTON Admitting Unavailable ANNAMARIE, BRIDGET CARPENTER Referring Unavailable PROVIDER, UNKNOWN Consulting Unavailable ANNAMARIE, BRIDGET CARPENTER Referring Unavailable LEMTAVIA HOUGH Primary Care Unavailable TAVIA PRESLEY Attending Unavailable TAVIA PRESLEY Admitting Unavailable ANNAMARIE, BRIDGET CARPENTER Consulting Unavailable PROVIDER, UNKNOWN Consulting Unavailable ANNAMARIE, BRIDGET CARPENTER Referring Unavailable CSERNYIK, PIPE DO Primary Care Unavailable CSERNYIK, PIPE DO Attending Unavailable CSERNYIK, PIPE DO Admitting Unavailable ANNAMARIE, BRIDGET CARPENTER Consulting Unavailable PROVIDER, UNKNOWN Consulting Unavailable ANNAMARIE, BRIDGET CARPENTER Referring Unavailable DAWIT THORNTON Primary Care Unavailable DAWIT THORNTON Attending Unavailable ANNAMARIE, BRIDGET CARPENTER Consulting Unavailable DAWIT THORNTON Admitting Unavailable PROVIDER, UNKNOWN Consulting Unavailable Haagen FIELD MECHANIC.WILFREDO Herlinda Unavailable Suppan FIELD MECHANIC.WASH WORKER, Daylin A Unavailable [phone] Suppan FIELD MECHANIC.WASH WORKER, Daylin A Unavailable [phone] Suppan FIELD MECHANIC.WASH WORKER, Daylin A Unavailable ANNAMARIE, BRIDGET J Primary Care Unavailable NAE GOULD Attending Unavailable MITA RIVAS Attending Unavailable ANNAMARIE, BRIDGET J Primary Care Unavailable SUPPDAYLIN DE LEON Attending Unavailable ANNAMARIE, BRIDGET J Primary Care Unavailable ANNAMARIE, BRIDGET J Primary Care Unavailable HERLINDA JETT Attending Unavailable ANNAMARIE, BRIDGET J Primary Care Unavailable ANNAMARIE, BRIDGET J Attending Unavailable ANNAMARIE, BRIDGET J Primary Care Unavailable ANNAMARIE, BRIDGET J Referring Unavailable ANNAMARIE, BRIDGET J Primary Care Unavailable SUPPDAYLIN DE LEON A Attending Unavailable ANNAMARIE, BRIDGET J Primary Care Unavailable SUPPDAYLIN DE LEON Attending Unavailable HERLINDA JETT Attending Unavailable ANNAMARIE, BRIDGET J Primary Care Unavailable ANNAMARIE, BRIDGET J Primary Care Unavailable ANNAMARIE, BRIDGET Wilcox Attending Unavailable ANNAMARIE, BRIDGET Wilcox Primary Care Unavailable KATHY JANSEN Attending Unavailable ANNAMARIE, BRIDGET Wilcox Primary Care Unavailable HERLINDA JETT Attending Unavailable ANNAMARIE, BRIDGET Wilcox Primary Care Unavailable HERLINDA JETT Attending Unavailable ANNAMARIE, BRIDGET Wilcox Primary Care Unavailable RAN LUNA Attending Unavailable ANNAMARIE, BRIDGET Wilcox Primary Care Unavailable SUSANA, DAYLIN Bassett Attending Unavailable ANNAMARIE, BRIDGET Wilcox Primary Care Unavailable DAYLIN MENDENHALL Referring Unavailable ANNAMARIE, BRIDGET Wilcox Primary Care Unavailable HERLINDA JETT Referring Unavailable ANNAMARIE, BRIDGET Wilcox Primary Care Unavailable SUSANA, DAYLIN A Attending Unavailable ANNAMARIE, BRIDGET Wilcox Primary Care Unavailable CHER CRABTREE Attending Unavailabl e ANNAMARIE, BRIDGET Wilcox Primary Care Unavailable CHER CRABTREE Referring Unavailabl e ANNAMARIE, BRIDGET Wilcox Primary Care Unavailable ANNAMARIE, BRIDGET Wilcox Primary Care Unavailable ANNAMARIE, BRIDGET Wilcox Referring Unavailable SUSANA, DAYLIN Bassett Attending Unavailable ANNAMARIE, BRIDGET Wilcox Primary Care Unavailable ANNAMARIE, BRIDGET Wilcox Primary Care Unavailable RYAN DALTON Attending Unavailab le ANNAMARIE, BRIDGET Wilcox Primary Care Unavailable ANNAMARIE, BRIDGET Wilcox Referring Unavailable ADELAIDA PICHARDO Attending Unavailable ANNAMARIE, BRIDGET Wiclox Primary Care Unavailable ANNAMARIE, BRIDGET Wilcox Primary Care Unavailable Emma STOLL Referring Unavailable ANNAMARIE, BRIDGET Wilcox Primary Care Unavailable Emma STOLL Referring Unavailable TANNDEANNAFCHER Attending Unavailabl e ANNAMARIE, BRIDGET Wilcox Primary Care Unavailable ANNAMARIE, BRIDGET Wilcox Primary Care Unavailable SUSANA, DAYLIN A Attending Unavailable ANNAMARIE, BRIDGET Wilcox Primary Care Unavailable HERLINDA JETT Attending Unavailable ANNAMARIE, BRIDGET Wilcox Primary Care Unavailable DAYLIN MENDENHALL A Attending Unavailable ANNAMARIE, BRIDGET Wilcox Attending Unavailable ANNAMARIE, BRIDGET Wilcox Primary Care Unavailable ANNAMARIE, BRIDGET Wilcox Primary Care Unavailable EDNALOGVANGIE GRIFFITHS Attending Unavailable ANNAMARIE, BRIDGET Wilcox Primary Care Unavailable SUSANA, DAYLIN A Attending Unavailable ANNAMARIE, BRIDGET Wilcox Attending Unavailable ANNAMARIE, BRIDGET Wilcox Primary Care Unavailable ANNAMARIE, BRIDGET Wilcox Primary Care Unavailable HERLINDA JETT Attending Unavailable ANNAMARIE, BRIDGET Wilcox Attending Unavailable ANNAMARIE, BRIDGET Wilcox Primary Care Unavailable ANNAMARIE, BRIDGET Wilcox Primary Care Unavailable SUSANA, DAYLIN A Attending Unavailable ANNAMARIE, BRIDGET Wilcox Primary Care Unavailable ESSIE, HERLINDA Attending Unavailable ANNAMARIE, BRIDGET Wilcox Primary Care Unavailable HERLINDA JETT Referring Unavailable SUPPDAYLIN DE LEON A Attending Unavailable ANNAMARIE, BRIDGET Wilcox Primary Care Unavailable SUPPDAYLIN DE LEON A Referring Unavailable ANNAMARIE, BRIDGET J Primary Care Unavailable SUPPDAYLIN DE LEON A Attending Unavailable ANNAMARIE, BRIDGET J Primary Care Unavailable CHELSIE CHAVIS Attending Unavailable ANNAMARIE, BRIDGET J Primary Care Unavailable ANNAMARIE, BRIDGET J Primary Care Unavailable HERLINDA JETT Attending Unavailable ANNAMARIE, BRIDGET Wilcox Attending Unavailable ANNAMARIE, BRIDGET J Primary Care Unavailable RYAN DALTON Attending Unavailab le ANNAMARIE, BRIDGET J Primary Care Unavailable ANNAMARIE, BRIDGET J Primary Care Unavailable SUPPDAYLIN DE LEON A Referring Unavailable ANNAMARIE, BRIDGET J Primary Care Unavailable RYAN DALTON Attending Unavailab le ANNAMARIE, BRIDGET Wilcox Primary Care Unavailable HERLINDA JETT Attending Unavailable ANNAMARIE, BRIDGET J Primary Care Unavailable HERLINDA JETT Referring Unavailable ANNAMARIE, BRIDGET J Primary Care Unavailable SUPPDAYLIN DE LEON A Attending Unavailable ANNAMARIE, BRIDGET J Primary Care Unavailable DAYLIN MENDENHALL A Attending Unavailable ANNAMARIE, BRIDGET J Primary Care Unavailable VANGIE VÁZQUEZ Referring Unavailable ANNAMARIE, BRIDGET J Primary Care Unavailable SUPPDAYLIN DE LEON A Attending Unavailable ANNAMARIE, BRIDGET Wilcox Primary Care Unavailable BAYRON WESLEY Attending Unavailable ANNAMARIE, BRIDGET Wilcox Primary Care Unavailable HERLINDA JETT Attending Unavailable ANNAMARIE, BRIDGET J Primary Care Unavailable ANNAMARIE, BRIDGET J Referring Unavailable ANNAMARIE, BRIDGET J Primary Care Unavailable HERLINDA JETT Attending Unavailable ANNAMARIE, BRIDGET Wilcox Primary Care Unavailable ANNAMARIE, BRIDGET Wilcox Attending Unavailable ANNAMARIE, BRIDGET J Primary Care Unavailable ANNAMARIE, BRIDGET J Referring Unavailable Allergies Allergy Classification Reported Allergen(s) Allergy Type Date of Onset Reaction(s) Facility Cephalosporins (antibiotic) (4 sources) Cefadroxil Drug Allergy 11-10-19 09 Itching [facility] Contrast Media (2 sources) Contrast media Substance Allergy 04-05-20 19 Shortness of Breath [facility] Corticosteroids (4 sources) Hydrocortisone Drug Allergy 11-10-19 09 Itching, Other: See Comments [facility] Work Phone: DULoxetine (2 sources) DULoxetine Drug Allergy 11-15-19 19 Intolerance [facility] Work Phone: guaiFENesin / Phenylephrine (2 sources) guaiFENesin / Phenylephrine Drug Allergy 11-10-19 09 Itching [facility] Macrolides (antibiotic) (2 sources) Erythromycin Drug Allergy 11-10-19 09 Itching [facility] NITROFURANTOIN, MACROCRYSTALS / Nitrofurantoin, Monohydrate (2 sources) NITROFURANTOIN, MACROCRYSTALS / Nitrofurantoin, Monohydrate Drug Allergy 01-24-20 21 Other: See Comments [facility] NSAIDs (4 sources) Diflunisal Drug Allergy 11-21-19 18 Itching [facility] Opioid Agonists (4 sources) Codeine Drug Allergy 11-10-19 09 Itching [facility] Penicillins (antibiotic) (4 sources) Amoxicillin Drug Allergy 11-10-19 09 Itching, Hives [facility] Proton Pump Inhibitors (4 sources) pantoprazole Drug Allergy 08-03-20 21 Itching [facility] Quinolones (antibiotic) (2 sources) levoFLOXacin Drug Allergy 01-24-20 Other: See Comments [facility] Sulfamethoxazole / Trimethoprim (2 sources) Sulfamethoxazole / Trimethoprim Drug Allergy 11-10-19 09 [facility] Sulfonamides (antibiotic) (2 sources) Sulfonamides (Antibiotic) Drug Allergy 11-10-19 09 [facility] Tetracyclines (antibiotic) (2 sources) Tetracycline Drug Allergy 09-01-20 21 [facility] (20 sources) Amoxicillin; Translations: [AMOXICILLIN] Drug Allergy 11-10-19 09 Itching [facility] Work Phone: (20 sources) Cefadroxil; Translations: [CEFADROXIL] Drug Allergy 11-10-19 09 Itching [facility] Work Phone: (20 sources) Cephalexin; Translations: [CEPHALEXIN] Drug Allergy 11-10-19 09 Itching [facility] Work Phone: (20 sources) Codeine; Translations: [CODEINE] Drug Allergy 11-10-19 09 Itching [facility] Work Phone: (20 sources) Contrast media; Translations: [DYE] Drug Allergy 04-05-20 19 Shortness of Breath [facility] Work Phone: (20 sources) DULoxetine; Translations: [DULOXETINE] Drug Allergy 11-15-19 19 Intolerance, GI intolerance, Unknown, Other [facility] Work Phone: [phone] (20 sources) Erythromycin; Translations: [ERYTHROMYCIN] Drug Allergy 11-10-19 09 Itching [facility] Work Phone: [phone] (20 sources) guaiFENesin / Phenylephrine; Translations: [PHENYLEPHRINE-GUAI FENESIN] Drug Allergy 11-10-19 09 Itching [facility] Work Phone: (20 sources) Hydrocortisone; Translations: [HYDROCORTISONE] Drug Allergy 11-10-19 09 Itching [facility] Work Phone: [phone] (20 sources) levoFLOXacin; Translations: [LEVOFLOXACIN] Drug Allergy 01-24-20 21 Other: See Comments, Other [facility] Work Phone: [phone] (20 sources) meloxicam; Translations: [MELOXICAM] Drug Allergy 11-21-19 18 Itching [facility] Work Phone: [phone] (20 sources) Morphine; Translations: [MORPHINE] Drug Allergy 11-10-19 09 Itching [facility] Work Phone: [phone] (20 sources) NITROFURANTOIN, MACROCRYSTALS / Nitrofurantoin, Monohydrate; Translations: [NITROFURANTOIN MONOHYD/M-CRYST] Drug Allergy 01-24-20 21 Other: See Comments, Other [facility] Work Phone: [phone] (20 sources) Omeprazole; Translations: [OMEPRAZOLE] Drug Allergy 08-03-20 21 Itching [facility] Work Phone: [phone] (20 sources) Penicillins; Translations: [PENICILLINS] Propensity to adverse reactions 11-10-19 09 Hives [facility] Work Phone: [phone] (20 sources) prednisoLONE; Translations: [PREDNISOLONE] Drug Allergy 09-07-20 20 Other: See Comments, Other [facility] Work Phone: [phone] (20 sources) Salicylic Acid; Translations: [SALICYLATES] Drug Allergy 11-10-19 09 Itching [facility] Work Phone: [phone] (20 sources) Sulfamethoxazole / Trimethoprim; Translations: [SULFAMETHOXAZOLE-T RIMETHOPRIM] Drug Allergy 11-10-19 09 Hives [facility] Work Phone: (20 sources) Sulfonamides (Antibiotic); Translations: [SULFA (SULFONAMIDE ANTIBIOTICS)] Propensity to adverse reactions 11-10-19 09 Hives [facility] Work Phone: [phone] (20 sources) Tetracycline; Translations: [TETRACYCLINE] Drug Allergy 09-01-20 21 Hives [facility] Work Phone: (20 sources) dolibid [Other] Propensity to adverse reactions 11-10-19 09 Itching [facility] Work Phone: (20 sources) Flu Vac 2014 (65 Up)-Mf59c(Pf); Translations: [FLU VAC 2014 (65 UP)-MF59C(PF)] Drug Intolerance 06-30-20 21 Shortness of Breath [facility] Work Phone: (20 sources) Penicillins Propensity to adverse reactions 11-10-19 09 Hives, Itching [facility] Work Phone: (20 sources) Salicylate product Propensity to adverse reactions 11-10-19 09 Itching [facility] Work Phone: (20 sources) Diflunisal; Translations: [DIFLUNISAL] Drug Allergy 08-21-20 23 Itching [facility] Work Phone: (20 sources) pantoprazole; Translations: [PANTOPRAZOLE] Drug Allergy 09-28-20 23 Itching [facility] (2 sources) Lisinopril; Translations: [LISINOPRIL] Drug Allergy 09-16-20 22 Cough, Other [facility] Work Phone: (1 source) Salicylic Acid Drug Allergy 11-10-19 09 Itching [facility] Work Phone: (2 sources) Blue Dye; Translations: [BLUE DYE] Propensity to adverse reactions 08-15-20 22 Shortness of breath [facility] (1 source) Acetaminophen / HYDROcodone Drug Allergy [facility] (1 source) Amoxicillin Drug Allergy [facility] (1 source) Cefadroxil Drug Allergy [facility] (1 source) Cefadroxil Drug Allergy [facility] (1 source) Cephalexin Drug Allergy [facility] (1 source) Cephalexin Drug Allergy [facility] (1 source) Codeine Drug Allergy [facility] (1 source) Contrast media Drug allergy (disorder) [facility] (1 source) Cortisone Drug Allergy [facility] (1 source) Diflunisal Drug Allergy [facility] (1 source) Diflunisal Drug Allergy [facility] (1 source) DULoxetine Drug Allergy [facility] (1 source) Erythromycin Drug Allergy [facility] (1 source) guaiFENesin Drug Allergy [facility] (1 source) levoFLOXacin Drug Allergy [facility] (1 source) meloxicam Drug Allergy [facility] (1 source) Morphine Drug Allergy [facility] (1 source) Nitrofurantoin Drug Allergy [facility] (1 source) Omeprazole Drug Allergy [facility] (1 source) pantoprazole Drug Allergy [facility] (1 source) Penicillins Drug allergy (disorder) [facility] (1 source) Phenylephrine Drug Allergy [facility] (1 source) prednisoLONE Drug Allergy [facility] (1 source) Pseudoephedrine Drug Allergy [facility] (1 source) Sulfonamides (Antibiotic) Drug allergy (disorder) [facility] (1 source) SALICATE Drug allergy (disorder) [facility] (1 source) IODIDE Drug allergy (disorder) [facility] (20 sources) Penicillins Propensity to adverse reactions 11-10-19 09 Hives [facility] Medications Current Medications Medication Drug Class(es) Dates Sig (Normalized) Sig (Original) amitriptyline hydrochloride 10 mg oral tablet (3 sources) Tricyclic Antidepressant Start: 04-08-2025 End: 04-14-2025 take 1 tablet by mouth once daily at bedtime amitriptyline (ELAVIL) 10 mg tablet Take 1 tablet by mouth daily at bedtime. 30 tablet 1 04/08/2025 04/14/2025 Discontinued (Discontinued by Patient) atorvastatin 10 mg oral tablet (20 sources) HMG-CoA Reductase Inhibitor Start: 08-10-2020 End: 05-26-2026 take 1 tablet by mouth once daily at bedtime for hyperlipidemia atorvastatin (LIPITOR) 10 mg tablet Indications: Mixed hyperlipidemia Take 1 tablet by mouth daily at bedtime. For cholesterol. 90 tablet 3 05/26/2025 05/26/2026 Active Comment on above: Take 1 tablet by micaela th daily at bedtime. For cholesterol. ciprofloxacin 500 mg oral tablet (19 sources) Quinolone Antimicrobial Start: 05-26-2025 End: 06-05-2025 take 1 tablet by mouth twice daily ciprofloxacin HCl (CIPRO) 500 mg tablet Indications: Mixed hyperlipidemia Take 1 tablet by mouth two times a day for 10 days. 10 tablet 05/26/2025 06/05/2025 Active Start: 09-09-2024 End: 09-16-2024 take 1 tablet by mouth twice daily ciprofloxacin HCl (CIPRO) 500 mg tablet Indications: Acute cystitis with hematuria Take 1 tablet by mouth two times a day for 7 days. 20 tablet 09/09/2024 09/13/2024 Discontinued (Course of therapy completed) Start: 07-30-2024 End: 08-09-2024 take 1 tablet by mouth twice daily ciprofloxacin HCl (CIPRO) 250 mg tablet Indications: Dysuria , Acute maxillary sinusitis, recurrence not specified Take 1 tablet by mouth two times a day for 10 days. 20 tablet 07/30/2024 08/09/2024 Start: 03-29-2024 End: 04-01-2024 take 1 tablet by mouth twice daily ciprofloxacin HCl (CIPRO) 500 mg tablet Indications: Dysuria Take 1 tablet by mouth two times a day for 3 days. 6 tablet 0 03/29/2024 04/01/2024 Active Start: 11-06-2023 End: 11-06-2023 take 0.3 mL into the eye(s) three times daily ciprofloxacin (CILOXAN) 0.3 % ophthalmic solution - RESPIRATORY USE ONLY Indications: Left ear pain 2 Drops three times a day for 3 days. Mix 20 drops of ciprofloxacin with 20 drops of dexamethasone and 20 drops of sodium chloride in nebulizer for inhalation twice daily. 0.9 mL 0 11/06/2023 11/06/2023 Discontinued Start: 09-04-2023 End: 09-07-2023 take 1 tablet by mouth twice daily ciprofloxacin HCl (CIPRO) 250 mg tablet Indications: Colicky RLQ abdominal pain , Urine leukocytes Take 1 tablet by mouth two times a day for 3 days. 6 tablet 0 09/04/2023 09/07/2023 Discontinued Start: 06-13-2023 End: 06-20-2023 take 1 tablet by mouth twice daily ciprofloxacin HCl (CIPRO) 500 mg tablet Take 500 mg by mouth twice daily. 0 06/13/2023 06/20/2023 Discontinued Start: 02-26-2022 End: 03-05-2022 take 1 tablet by mouth twice daily ciprofloxacin HCl (CIPRO) 500 mg tablet Indications: Right lower quadrant abdominal pain , Recurrent UTI (urinary tract infection) Take 1 tablet by mouth twice daily for 7 days. 14 tablet 0 02/26/2022 03/03/2022 Discontinued Comment on above: Take 1 tablet by micaela th twice daily for 7 days. Take 500 mg by mouth twice daily. Take 1 tablet by micaela th two times a day for 3 days. 2 Drops three times a day for 3 days. Mix 20 drops of ciprofloxacin with 20 drops of dexamethasone and 20 drops of sodium chloride in nebulizer for inhalation twice daily. cyclobenzaprine hydrochloride 10 mg oral tablet (20 sources) Muscle Relaxant Start: take 1 tablet by mouth every eight hours as needed cyclobenzaprine (FLEXERIL) 10 mg tablet Take 1 tablet by mouth three times a day as needed. 30 tablet 12/20/2024 Active Start: 05-18-2023 End: 12-07-2023 take 1 tablet by mouth every eight hours as needed cyclobenzaprine (FLEXERIL) 10 mg tablet Take 1 tablet by mouth three times a day as needed. 30 tablet 0 09/07/2023 12/07/2023 Discontinued (Course of therapy completed) Start: 11-02-2022 End: 11-21-2022 take 0.5-1 tablets by mouth three times daily as needed cyclobenzaprine (FLEXERIL) 10 mg tablet Indications: Rib pain , Flank pain Take 1/2 to 1 tablet by mouth three times daily as needed. 21 tablet 1 11/02/2022 11/21/2022 Discontinued Start: 09-07-2022 End: 09-29-2022 take 0.5-1 tablets by mouth three times daily as needed cyclobenzaprine (FLEXERIL) 10 mg tablet Indications: Rib pain Take 1/2 to 1 tablet by mouth three times daily as needed. 21 tablet 1 09/07/2022 09/29/2022 Discontinued Start: 07-12-2021 End: 07-27-2021 take 1 tablet by mouth once daily at bedtime cyclobenzaprine (FLEXERIL) 10 mg tablet Indications: Muscle strain Take 1 tablet by mouth daily at bedtime. 10 tablet 07/12/2021 07/27/2021 Discontinued Start: 11-18-2020 End: 01-23-2021 take 0.5 tablet by mouth three times daily as needed cyclobenzaprine (FLEXERIL) 10 mg tablet Indications: Muscle spasm of left shoulder Take 0.5 tablets by mouth three times daily as needed. 12 tablet 11/18/2020 01/23/2021 Discontinued Comment on above: Take 1/2 to 1 tablet by mouth three times daily as needed. Take 1 tablet by micaela th three times daily as needed. Take 1 tablet by micaela th three times a day as needed. doxycycline hyclate 100 mg oral tablet (20 sources) Tetracycline-clas s Drug Start: 05-08-2025 End: 05-18-2025 take 1 tablet by mouth twice daily doxycycline (VIBRA-TABS) 100 mg tablet Indications: Acute recurrent frontal sinusitis Take 1 tablet by mouth two times a day for 10 days. 20 tablet 05/08/2025 05/18/2025 Active Start: 09-27-2024 End: 10-07-2024 take 1 capsule by mouth twice daily doxycycline hyclate (VIBRAMYCIN) 100 mg capsule Indications: Acute maxillary sinusitis, recurrence not specified Take 1 capsule (100 mg) by mouth two times a day for 10 days. 20 capsule 09/27/2024 10/04/2024 Discontinued (Course of therapy completed) Start: 07-10-2024 End: 07-20-2024 take 1 tablet by mouth twice daily doxycycline (VIBRA-TABS) 100 mg tablet Take 1 tablet by mouth two times a day for 10 days. 20 tablet 07/10/2024 07/16/2024 Discontinued (Discontinued by Patient) Start: 06-12-2023 End: 06-22-2023 take 1 tablet by mouth twice daily doxycycline (VIBRA-TABS) 100 mg tablet Indications: Acute non-recurrent maxillary sinusitis Take 1 tablet by mouth twice daily for 10 days. 20 tablet 0 06/12/2023 06/22/2023 Active Start: 02-24-2022 End: 03-06-2022 take 1 tablet by mouth twice daily doxycycline (VIBRA-TABS) 100 mg tablet Indications: Acute non-recurrent maxillary sinusitis Take 1 tablet by mouth twice daily for 10 days. 20 tablet 0 02/24/2022 03/03/2022 Discontinued Start: 01-26-2022 End: 01-31-2022 take 1 tablet by mouth twice daily doxycycline monohydrate 100 mg tablet Take 1 tablet by mouth twice daily for 5 days. 10 tablet 0 01/26/2022 01/31/2022 Start: 10-23-2021 End: 11-02-2021 take 1 tablet by mouth twice daily doxycycline monohydrate 100 mg tablet Take 1 tablet by mouth twice daily for 10 days. Is able to doxycyline 20 tablet 10/23/2021 11/02/2021 Comment on above: Take 1 tablet by micaela th twice daily for 5 days. Take 1 tablet by micaela th twice daily for 10 days. esomeprazole 20 mg delayed release oral capsule (1 source) Proton Pump Inhibitor Start: 03-14-20 End: 03-14-20 take 1 capsule by mouth once daily esomeprazole (NexIUM) [address] capsule Indications: Gastroesophageal reflux disease without esophagitis Take 1 capsule (20 mg) by mouth once daily. Do not open capsule. 30 capsule 11 03/14/2024 03/14/2025 Active estrogens, conjugated (mcfp) 0.625 mg/ml vaginal cream (20 sources) Estrogen Start: 04-08-20 End: 07-07-20 conjugated estrogens (PREMARIN) vaginal cream Indications: Dysuria Use 2 g vaginally two times a week. 16 g 2 04/08/2025 07/07/2025 Active Start: 04-30-2024 End: 12-12-2024 conjugated estrogens (PREMAR IN) vaginal cream Indications: Dysuria Use 2 g vaginally two times a week. 16 g 2 09/13/2024 09/23/2024 Discontinued famotidine 20 mg oral tablet (20 sources) Histamine-2 Receptor Antagonist Start: 02-11-2025 End: 08-10-2025 take 1 tablet by mouth twice daily famotidine (PEPCID) 20 mg tablet Indications: GERD without esophagitis Take 1 tablet by mouth two times a day. 60 tablet 5 02/11/2025 08/10/2025 Active Start: 07-18-2024 End: 02-03-2025 take 1 tablet by mouth twice daily famotidine (PEPCID) 20 mg tablet Take 1 tablet by mouth two times a day. 60 tablet 5 07/18/2024 02/03/2025 Discontinued (Discontinued by Patient) Start: 11-14-2022 End: 06-11-2024 take 1 tablet by mouth twice daily famotidine (PEPCID) 20 mg tablet Take 1 tablet by mouth two times a day. 60 tablet 5 11/02/2023 Active Start: 10-27-2021 End: 11-12-2022 take 1 tablet by mouth twice daily famotidine (PEPCID) 20 mg tablet Indications: GERD without esophagitis Take 1 tablet by mouth twice daily. 60 tablet 2 11/01/2021 03/18/2022 Discontinued Start: 08-17-2019 End: 08-02-2021 take 1 tablet by mouth twice daily famotidine (PEPCID) 20 mg tablet Take 1 tablet by mouth twice daily. 60 tablet 5 08/17/2019 08/02/2021 Discontinued Comment on above: Take 1 tablet by micaela th twice daily. Take 20 mg by mouth twice daily. Take 1 tablet by micaela th two times a day. fluticasone propionate 0.05 mg/actuat metered dose nasal spray (20 sources) Corticosteroid Start: 3 End: take 2 spray(s) by mouth once daily fluticasone (FLONASE) 50 mcg/actuation nasal spray Indications: Sinus congestion , Seasonal allergic rhinitis due to other allergic trigger Use 2 sprays in each nostril once daily. Rinse mouth after use. 3 each 3 02/25/2025 02/25/2026 Active Start: 10-22-2022 fluticasone (F lonase) 50 mcg/actuation nasal spray 2 sprays by Does not apply route once daily. 10/22/2022 Active Comment on above: Use 2 Sprays in each nostril once daily. Rinse mouth after use. folic acid 1 mg oral tablet (20 sources) Start: 08-08-2024 End: 08-08-2025 take 1 tablet by mouth once daily folic acid 1 mg tablet Indications: Folate deficiency Take 1 tablet by mouth once daily. 30 tablet 11 08/08/2024 08/08/2025 Active Start: 03-31-2023 End: 12-11-2023 take 1 tablet by mouth once daily folic acid 1 mg tablet Indications: Folic acid deficiency Take 1 tablet by mouth once daily. 30 tablet 11 03/31/2023 04/30/2023 Comment on above: Take 1 tablet by micaela th once daily. Take 1 mg by mouth o nce daily. hydrocortisone 10 mg/ml / neomycin 3.5 mg/ml / polymyxin b [id number] unt/ml otic suspension (3 sources) Aminoglycoside Antibacterial, Polymyxin-class Antibacterial, Corticosteroid Start: 11-06-2023 End: 11-12-2023 jhgthsct-zhtegagle-hiyje cortisone (CORTISPORIN) 3.5-10,000-1 mg/mL-unit/mL-% otic suspension Indications: Left ear pain Use 3 Drops in the left ear three times a day for 3 days. 1.4 mL 0 11/09/2023 11/12/2023 Active Comment on above: Use 3 Drops in the l eft ear three times a day for 3 days. iv contrast (will be provided with radiology test) (2 sources) Start: 11-25-2022 End: 11-26-2022 iv contrast (will be provided with radiology test) MRI PANC/ARAMIS Inject, intravenously, once for 1 dose. No IV access, insert saline lock prior to the beginning of sedation, infusion, injection of imaging exam. Discontinue saline lock post exam. If Pt. has a central line or IVAD, may access for administration according to line specific nursing protocol. Once exam is complete flush line and de-access according to line specific nursing protocol in the MR contrast administration guidelines link. 1 Each 0 11/25/2022 11/26/2022 Active Start: 01-04-2022 End: 01-05-2022 iv contrast (will be provide d with radiology test) MRI PANC/ARAMIS Inject, intravenously, once for 1 dose. No IV access, insert saline lock prior to the beginning of sedation, infusion, injection of imaging exam. Discontinue saline lock post exam. If Pt. has a central line or IVAD, may access for administration according to line specific nursing protocol. Once exam is complete flush line and de-access according to line specific nursing protocol in the MR contrast administration guidelines link. 1 Each 0 01/04/2022 01/05/2022 Active Comment on above: MRI PANC/ARAMIS Inject, intravenously, once for 1 dose. No IV access, insert saline lock prior to the beginning of sedation, infusion, injection of imaging exam. Discontinue saline lock post exam. If Pt. has a central line or IVAD, may access for administration according to line specific nursing protocol. Once exam is complete flush line and de-access according to line specific nursing protocol in the MR contrast administration guidelines link. lansoprazole 30 mg delayed release oral capsule (20 sources) Proton Pump Inhibitor Start: 02-04-20 End: 08-02-20 take 1 capsule by mouth once daily before breakfast lansoprazole (PREVACID) 30 mg capsule Indications: GERD without esophagitis Take 1 capsule by mouth daily before breakfast. 30 capsule 5 02/03/2025 08/02/2025 Active Start: 06-11-2024 End: 12-08-2024 take 1 capsule by mouth once daily before breakfast lansoprazole (PREVACID) 15 mg capsule Indications: Gastroesophageal reflux disease without esophagitis Take 1 capsule by mouth daily before breakfast. 30 capsule 5 06/11/2024 07/30/2024 Discontinued (Discontinued by Patient) End: 09-02-2024 take 1 capsule by mouth once daily lansoprazole (PREVACID) 30 mg capsule Take 30 mg by mouth once daily. 09/02/2024 Discontinued levocetirizine dihydrochloride 5 mg oral tablet (3 sources) Histamine-1 Receptor Antagonist Start: 07-14-2022 End: 08-13-2022 take 1 tablet by mouth once daily as needed levocetirizine (XYZAL) 5 mg tablet Indications: Allergy, initial encounter Take 1 tablet by mouth once daily as needed. 30 tablet 0 07/14/2022 08/13/2022 Active Comment on above: Take 1 tablet by micaela th once daily as needed. lisinopril 40 mg oral tablet (20 sources) Angiotensin Converting Enzyme Inhibitor Start: 01-23-2025 End: 01-23-2026 take 1 tablet by mouth once daily lisinopril (ZESTRIL) 40 mg tablet Indications: Essential hypertension Take 1 tablet by mouth once daily. 90 tablet 3 01/23/2025 01/23/2026 Active Start: 08-25-2020 End: 07-16-2024 take 1 tablet by mouth once daily lisinopril (ZESTRIL) 40 mg tablet Indications: Essential hypertension Take 1 tablet by mouth once daily. 90 tablet 1 07/16/2024 Active Comment on above: Take 1 tablet by micaela th once daily. methylPREDNISolone (16 sources) Corticosteroid Start: 05-26-2025 End: 06-01-2025 methylPREDNISolone (MEDROL, APRIL,) 4 mg Dose-Pack Indications: Mixed hyperlipidemia Take as instructed per package. 21 tablet 05/26/2025 06/01/2025 Active Start: 03-19-2025 End: 03-25-2025 methylPREDNISolone (MEDROL, APRIL,) 4 mg Dose-Pack Indications: Rib pain on right side Take as instructed per package. 21 tablet 03/19/2025 03/25/2025 Active Start: 09-03-2024 End: 09-09-2024 methylPREDNISolone (MEDROL, APRIL,) 4 mg Dose-Pack Indications: Coccyx pain Follow dosing instructions, take with food. 21 tablet 09/03/2024 09/09/2024 Active Start: 2024 End: 03-18-2024 methylPREDNISolone (MEDROL, APRIL,) 4 mg Dose-Pack Indications: DDD (degenerative disc disease), lumbar Follow dosing instructions, take with food. 21 tablet 0 2024 03/18/2024 Active Start: 02-27-2024 End: 03-04-2024 methylPREDNISolone (MEDROL, APRIL,) 4 mg Dose-Pack Indications: Viral URI with cough Follow dosing instructions, take with food. 21 tablet 0 02/27/2024 03/04/2024 Active Start: 06-01-2023 End: 06-07-2023 methylPREDNISolone (MEDROL, APRIL,) 4 mg Dose-Pack Indications: DDD (degenerative disc disease), lumbar Follow dosing instructions, take with food. 21 tablet 0 06/01/2023 06/07/2023 Active Start: 05-18-2022 End: 05-24-2022 methylPREDNISolone (MEDROL, APRIL,) 4 mg Dose-Pack Indications: Lumbar pain Follow dosing instructions, take with food. 1 Package 0 05/18/2022 05/24/2022 Active Start: 04-19-2022 End: 04-25-2022 methylPREDNISolone (MEDROL, APRIL,) 4 mg Dose-Pack Indications: Pain of right upper extremity , Neck pain Follow dosing instructions, take with food. 1 Package 0 04/19/2022 04/25/2022 Active Comment on above: Follow dosing instru ctions, take with food. ondansetron 4 mg oral tablet (20 sources) Serotonin-3 Receptor Antagonist Start: End: take 1 tablet by mouth every eight hours as needed ondansetron (ZOFRAN) 4 mg tablet Take 1 tablet by mouth every 8 hours as needed for nausea/vomiting for up to 7 days. 21 tablet 05/23/2025 05/30/2025 Active Start: 04-02-2024 End: 02-21-2026 take 1 tablet by mouth every six hours as needed for nausea and nausea ondansetron orally disintegrating (ZOFRAN ODT) 4 mg disintegrating tablet Indications: Nausea Take 1 tablet by mouth every 6 hours as needed for nausea/vomiting. 40 tablet 3 02/21/2025 03/14/2025 Discontinued (Discontinued by Patient) Start: 12-24-2023 End: 01-05-2024 ondansetron orally disintegr ating (ZOFRAN ODT) 4 mg disintegrating tablet Start: 05-13-2022 End: 05-18-2022 take 1 tablet by mouth every eight hours as needed for nausea and nausea ondansetron orally disintegrating (ZOFRAN ODT) 4 mg disintegrating tablet Indications: Nausea Take 1 tablet by mouth every 8 hours as needed for nausea/vomiting for up to 5 days. 15 tablet 0 05/13/2022 05/18/2022 Active Start: 12-07-2021 End: 01-13-2022 take 1 tablet by mouth every six hours as needed ondansetron orally disintegrating (ZOFRAN ODT) 4 mg disintegrating tablet Take 1 tablet by mouth every 6 hours as needed for nausea/vomiting. 18 tablet 0 12/07/2021 01/13/2022 Discontinued Comment on above: Take 1 tablet by micaela th every 6 hours as needed for nausea/vomiting. Take 1 tablet by micaela th every 8 hours as needed for nausea/vomiting for up to 5 days. phenazopyridine hydrochloride 200 mg oral tablet (7 sources) Start: End: take 1 tablet by mouth three times daily as needed phenazopyridine (PYRIDIUM) 200 mg tablet Indications: Dysuria , Interstitial cystitis Take 1 tablet by mouth three times a day as needed (urinary burning. Turns urine orange.) for up to 10 days. 30 tablet 03/27/2025 04/06/2025 Active Start: 11-25-2024 End: 12-05-2024 take 1 tablet by mouth three times daily as needed phenazopyridine (PYRIDIUM) 100 mg tablet Indications: Dysuria Take 1 tablet by mouth three times a day as needed (urinary burning. Turns urine orange.) for up to 10 days. 30 tablet 11/25/2024 12/05/2024 Active Start: 04-30-2024 End: 05-15-2024 take 1 tablet by mouth three times daily as needed phenazopyridine (PYRIDIUM) 200 mg tablet Indications: Dysuria Take 1 tablet by mouth three times a day as needed (urinary burning. Turns urine orange.) for up to 15 days. 45 tablet 0 04/30/2024 05/15/2024 Active polyethylene glycol 3350 [id number] mg / potassium chloride 2970 mg / sodium bicarbonate 6740 mg / sodium chloride 5860 mg / sodium sulfate 07137 mg powder for oral solution (14 sources) Osmotic Laxative Start: 01-26-2023 End: 01-26-2023 peg 3350-Electrolytes (GOLYTELY) 236-22.74-6.74 -5.86 gram suspension Indications: RUQ pain , GERD without esophagitis , Screening for colon cancer Take 4,000 mL by mouth one time only for 1 dose. Refer to printed prep instructions from your provider. 4000 mL 0 01/26/2023 01/26/2023 Active Start: 03-11-2022 End: 04-01-2022 peg 3350-Electrolytes (GOLYT TYRON) 236-22.74-6.74 -5.86 gram suspension Refer to printed prep instructions from your provider. 4000 mL 0 03/11/2022 04/01/2022 Discontinued Comment on above: Refer to printed pre p instructions from your provider. Take 4,000 mL by micaela th one time only for 1 dose. Refer to printed prep instructions from your provider. predniSONE 20 mg oral tablet (1 source) Start: End: take 1 tablet by mouth once daily at mealtime predniSONE (DELTASONE) 20 mg tablet Indications: Rib pain Take 1 tablet by mouth once daily for 5 days. Take daily with food. 5 tablet 0 01/17/2024 01/22/2024 Active Comment on above: Take 1 tablet by micaela th once daily for 5 days. Take daily with food. 125 ml sodium chloride 9 mg/ml prefilled syringe (20 sources) Start: End: sodium chloride 0.9 % (flush) 10 mL (BD POSIFLUSH) traZODone hydrochloride 50 mg oral tablet (9 sources) Serotonin Reuptake Inhibitor Start: End: take 1 tablet by mouth once daily at bedtime traZODone (DESYREL) 50 mg tablet Indications: Difficulty sleeping Take 1 tablet by mouth daily at bedtime. 30 tablet 2 08/08/2024 09/23/2024 Discontinued triamcinolone acetonide 1 mg/ml topical cream (18 sources) Corticosteroid Start: End: triamcinolone acetonide (KENALOG) 0.1 % cream Apply to affected area two times a day. 28.4 g 2 11/19/2024 02/17/2025 Active Vitamin B Complex (20 sources) Start: End: take 1 tablet by mouth once daily vitamin b complex (B-COMPLEX) tab Indications: 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 malabsorption with proteinuria , Folate deficiency Take 1 tablet by mouth once daily. 30 tablet 11 02/03/2025 02/03/2026 Active Start: 12-26-2023 End: 02-03-2025 take 1 tablet by mouth once daily vitamin b complex (B-COMPLEX) tab Indications: 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 malabsorption with proteinuria , Folate deficiency Take 1 tablet by mouth once daily. 30 tablet 11 12/26/2023 02/03/2025 Discontinued Start: 12-26-2023 take 1 tablet by micaela th once daily vitamin b complex (B-COMPLEX) tab Indications: 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 malabsorption with proteinuria , Folate deficiency Take 1 tablet by mouth once daily. 30 tablet 11 12/26/2023 Active Start: 12-26-2023 End: 12-25-2024 take 1 tablet by mouth once daily vitamin b complex (B-COMPLEX) tab Indications: 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 malabsorption with proteinuria , Folate deficiency Take 1 tablet by mouth once daily. 30 tablet 11 12/26/2023 12/25/2024 Active Comment on above: Take 1 tablet by micaela th once daily. VITAMIN B COMPLEX ORAL (1 source) Start: 12-26-2023 End: 12-25-2024 take 1 tablet by mouth once daily VITAMIN B COMPLEX ORAL Take 1 tablet by mouth once daily. 12/26/2023 12/25/2024 Active Completed/Discontinued Medications Medication Drug Class(es) Dates Sig (Normalized) Sig (Original) Acetaminophen (20 sources) End: 05-18-2023 acetaminophen (TYLENOL ARTHRITIS ORAL) Take by mouth. 05/18/2023 Discontinued End: 05-18-2023 acetaminophen (TYLENOL ARTHR ITIS ORAL) Take by mouth. 0 05/18/2023 Discontinued acetaminophen (T YLENOL ARTHRITIS ORAL) Take by mouth. 0 Active Comment on above: Take by mouth. alendronic acid 35 mg oral tablet (9 sources) Bisphosphonate Start: 022 End: take 1 tablet by mouth every week alendronate (FOSAMAX) 35 mg tablet Take 35 mg by mouth one time a week. 0 09/16/2022 11/05/2022 Discontinued Comment on above: Take 35 mg by mouth one time a week. benzonatate 100 mg oral capsule (2 sources) Non-narcotic Antitussive Start: 024 End: 03-17-2 024 take 1 capsule by mouth three times daily as needed for cough benzonatate (TESSALON PERLE) 100 mg capsule Indications: URI, acute Take 1 capsule by mouth three times a day as needed for cough for up to 10 days. 30 capsule 0 12/07/2023 12/11/2023 Discontinued Comment on above: Take 1 capsule by mo ut three times a day as needed for cough for up to 10 days. brompheniramine maleate 0.4 mg/ml / dextromethorphan hydrobromide 2 mg/ml / pseudoephedrine hydrochloride 6 mg/ml oral solution (14 sources) alpha-Adrenergic Agonist, Uncompetitive H-zbcdmf-R-aspartate Receptor Antagonist, Sigma-1 Agonist Start: 023 End: take 5 mL by mouth four times daily as needed Brompheniramine-Pse udoeph-DM (BROMFED DM) 2-30-10 mg/5 mL syrup Indications: Viral URI Take 5 mL by mouth four times a day as needed. 118 mL 0 08/07/2023 08/21/2023 Discontinued Start: 12-20-2022 End: 01-16-2023 take 5 mL by mouth four times daily as needed Rkbhvtatyoconbs-Ncydagjmv-DV (BROMFED DM ) 2-30-10 mg/5 mL syrup Indications: COVID-19 Take 5 mL by mouth four times daily as needed. 118 mL 0 12/20/2022 01/16/2023 Discontinued Start: 02-18-2022 End: 03-03-2022 take 5 mL by mouth four times daily as needed Nhzpgcbmkojmuiw-Buaqglknf-HX (BROMFED DM ) 2-30-10 mg/5 mL syrup Indications: URI, acute Take 5 mL by mouth four times daily as needed. 118 mL 0 02/18/2022 03/03/2022 Discontinued Comment on above: Take 5 mL by mouth f our times daily as needed. Take 5 mL by mouth f our times a day as needed. cholecalciferol 0.05 mg oral tablet (6 sources) Vitamin D Start: 025 End: take 1 tablet by mouth once daily cholecalciferol (VITAMIN D-3) 50 mcg (2,000 unit) tablet Indications: Vitamin D deficiency Take 1 tablet by mouth once daily. 30 tablet 5 10/18/2024 11/06/2024 Discontinued 1 ml denosumab 60 mg/ml prefilled syringe (20 sources) RANK Ligand Inhibitor Start: 022 End: denosumab 60 mg injection (PROLIA) dicyclomine hydrochloride 20 mg oral tablet (5 sources) Anticholinergic Start: End: dicyclomine (BENTYL) 20 mg tablet enteric contrast (will be provided with radiology test) (4 sources) Start: End: take 1 dose by mouth once, then take 1 dose by mouth once enteric contrast (will be provided with radiology test) Indications: Flank pain Take 1 Each by mouth one time only for [address] ABD/PEL WO Routine order Administer, As Directed One Time Only, via Oral, Rectal, both Oral and Rectal, Enteric Tube, Stoma or Indwelling Catheter, Enteric Contrast as designated per enteric contrast guidelines 1 Each 10/04/2024 10/04/2024 Start: 10-04-2024 End: 10-04-2024 take 1 dose by mouth once, then take 1 dose by mouth once enteric contrast (will be provided with radiology test) Indications: Flank pain Take 1 Each by mouth one time only for [address] ABD/PEL WO Routine order Administer, As Directed One Time Only, via Oral, Rectal, both Oral and Rectal, Enteric Tube, Stoma or Indwelling Catheter, Enteric Contrast as designated per enteric contrast guidelines 1 Each 10/04/2024 10/04/2024 Active Start: 11-05-2021 End: 11-06-2021 enteric contrast (will be pr ovided with radiology test) For CT ABD WO IVCON order Administer, As Directed One Time Only, via Oral, Rectal, both Oral and Rectal, Enteric Tube, Stoma or Indwelling Catheter, Enteric Contrast as designated per enteric contrast guidelines 1 Each 11/05/2021 11/06/2021 Start: 11-05-2021 End: 11-06-2021 enteric contrast (will be pr ovided with radiology test) For CT PELVIS WO IVCON order Administer, As Directed One Time Only, via Oral, Rectal, both Oral and Rectal, Enteric Tube, Stoma or Indwelling Catheter, Enteric Contrast as designated per enteric contrast guidelines 1 Each 11/05/2021 11/06/2021 estradiol 0.1 mg/ml vaginal cream (8 sources) Estrogen Start: 01-19-2022 End: 02-02-2022 estradiol (ESTRACE) 0.01 % (0.1 mg/gram) vaginal cream Indications: Dyspareunia in female , Senile (atrophic) vaginitis apply one gram or pea sized amount over the vaginal opening every night for 2 weeks then 2 evenings per week. 42.5 g 1 01/19/2022 02/02/2022 Discontinued Comment on above: apply one gram or pe a sized amount over the vaginal opening every night for 2 weeks then 2 evenings per week. fosfomycin 3000 mg powder for oral solution (12 sources) Start: 01-04-2022 End: 02-02-2022 fosfomycin (MONUROL) 3 g pack Indications: Dysuria Take 1 Packet by mouth every 72 hours. 2 Packet 0 01/04/2022 02/02/2022 Discontinued Comment on above: Take 1 Packet by micaela every 72 hours. 12 hr guaiFENesin 600 mg extended release oral tablet (5 sources) Start: 09-01-2023 End: 09-08-2023 take 2 tablets by mouth twice daily guaiFENesin (MUCINEX) 600 mg 12 hr tablet Indications: Sinus pressure Take 2 tablets by mouth two times a day for 7 days. 14 tablet 0 09/01/2023 09/07/2023 Discontinued Comment on above: Take 2 tablets by mo [facility] two times a day for 7 days. lidocaine 0.05 mg/mg medicated patch (12 sources) Antiarrhythmic, Amide Local Anesthetic Start: 12-29-2023 End: 01-28-2024 apply 1 dose transdermal route every twenty-four hours lidocaine (LIDODERM) 5 % Indications: Rib pain on left side Apply 1 Patch as directed every 24 hours. Remove old patch prior to placing new patch. Location: left lateral rib 30 Patch 12/29/2023 01/05/2024 Discontinued Start: 04-21-2022 End: 04-26-2022 apply 1 dose transdermal route once daily, then apply 1 dose transdermal route every twelve hours lidocaine (SALONPAS) 4 % patch Apply 1 Patch as directed once daily for 5 days. Remove patch after 12 hours 5 Patch 0 04/21/2022 04/26/2022 Active Comment on above: Apply 1 Patch as dir ected once daily for 5 days. Remove patch after 12 hours Apply 1 Patch as dir ected every 24 hours. Remove old patch prior to placing new patch. Location: left lateral rib loratadine 10 mg oral tablet (15 sources) Start: 2 End: 2 take 1 tablet by mouth once daily loratadine (CLARITIN) 10 mg tablet Take 1 tablet by mouth once daily. 30 tablet 1 03/03/2022 04/01/2022 Discontinued Comment on above: Take 1 tablet by micaela once daily. methocarbamol 500 mg oral tablet (20 sources) Muscle Relaxant Start: 5 End: 5 take 1 tablet by mouth three times daily methocarbamol (ROBAXIN) 500 mg tablet Indications: Flank pain Take 1 tablet by mouth three times a day. 90 tablet 2 10/04/2024 10/18/2024 Discontinued (Other) Start: 09-13-2024 End: 10-13-2024 take 1 tablet by mouth every six hours as needed for pain methocarbamol (ROBAXIN) 750 mg tablet Indications: Muscle strain of right scapular region, initial encounter Take 1 tablet by mouth every 6 hours as needed (Pain). 90 tablet 09/13/2024 09/23/2024 Discontinued Start: 04-08-2024 End: 05-08-2024 take 1 tablet by mouth three times daily as needed for pain methocarbamol (ROBAXIN) 500 mg tablet Indications: Bilateral leg cramps Take 1 tablet by mouth three times a day as needed (Pain). 90 tablet 0 04/08/2024 05/08/2024 Active Start: 2024 End: 03-15-2024 take 1 tablet by mouth every six hours as needed for pain methocarbamol (ROBAXIN) 500 mg tablet Indications: DDD (degenerative disc disease), lumbar Take 1 tablet by mouth every 6 hours as needed (Pain) for up to 3 days. 12 tablet 0 2024 03/15/2024 Active montelukast 10 mg oral tablet (16 sources) Leukotriene Receptor Antagonist Start: 10-22-2022 End: 01-16-2023 take 1 tablet by mouth once daily at bedtime montelukast (SINGULAIR) 10 mg tablet Indications: Sinus congestion , Seasonal allergic rhinitis due to other allergic trigger Take 1 tablet by mouth daily at bedtime. (For allergies) 90 tablet 1 10/22/2022 01/16/2023 Discontinued Comment on above: Take 1 tablet by micaela th daily at bedtime. (For allergies) Multivitamin capsule (20 sources) End: 02-24-2022 take 1 capsule by mouth once daily Multivitamin capsule Take 1 capsule by mouth once daily. 02/24/2022 Discontinued End: 02-24-2022 take 1 capsule by mouth once daily Multivitamin capsule Take 1 capsule by mouth once daily. 0 02/24/2022 Discontinued take 1 capsule by mo uth once daily Multivitamin capsule Take 1 capsule by mouth once daily. 0 Active Comment on above: Take 1 capsule by mo uth once daily. naproxen 500 mg oral tablet (3 sources) Nonsteroidal Anti-inflammatory Drug Start: 09-07-20 End: 09-29-20 take 1 tablet by mouth twice daily at mealtime naproxen (NAPROSYN) 500 mg tablet Indications: Rib pain Take 1 tablet by mouth twice daily with meals. Take with food. 28 tablet 0 09/07/2022 09/29/2022 Discontinued Comment on above: Take 1 tablet by micaela th twice daily with meals. Take with food. NIFEdipine 30 mg osmotic 24 hr extended release oral tablet (1 source) Dihydropyridine Calcium Channel Nelson Start: 11-16-19 End: 01-24-20 take 1 tablet by mouth once daily NIFEdipine ER (PROCARDIA XL) 30 mg 24 hr tablet Take 1 tablet by mouth once daily. 30 tablet 11 11/16/2020 01/23/2021 Discontinued perflutren lipid microspheres 1.3 mL in NaCl (PF) 0.9% 10 mL injection (DEFINITY) (20 sources) Start: 11-05-19 End: 02-04-20 perflutren lipid microspheres 1.3 mL in NaCl (PF) 0.9% 10 mL injection (DEFINITY) Start: 03-22-2022 End: 06-21-2023 perflutren lipid microsphere s 1.3 mL in NaCl (PF) 0.9% 10 mL injection (DEFINITY) Start: 12-17-2021 End: 05-18-2022 perflutren lipid microsphere s 1.3 mL in NaCl (PF) 0.9% 10 mL injection (DEFINITY) Start: 12-17-2021 End: 03-18-2023 perflutren lipid microsphere s 1.3 mL in NaCl (PF) 0.9% 10 mL injection (DEFINITY) promethazine hydrochloride 12.5 mg oral tablet (19 sources) Phenothiazine Start: 03-14-2022 End: 04-01-2022 take 1 tablet by mouth every eight hours as needed for nausea promethazine (PHENERGAN) 12.5 mg tablet Indications: Nausea and vomiting, unspecified vomiting type Take 1 tablet by mouth every 8 hours as needed for nausea/vomiting. 30 tablet 1 03/14/2022 04/01/2022 Discontinued Start: 01-13-2022 End: 02-02-2022 take 1 tablet by mouth every six hours as needed promethazine (PHENERGAN) 25 mg tablet Take 1 tablet by mouth every 6 hours as needed. For nausea 20 tablet 0 01/13/2022 02/02/2022 Discontinued Comment on above: Take 1 tablet by micaela th every 6 hours as needed. For nausea Take 1 tablet by micaela th every 8 hours as needed for nausea/vomiting. sertraline 25 mg oral tablet (20 sources) Serotonin Reuptake Inhibitor Start: End: take 1 tablet by mouth once daily at bedtime sertraline (ZOLOFT) 25 mg tablet Indications: Depression, unspecified depression type Take 1 tablet by mouth daily at bedtime. 90 tablet 03/14/2025 05/01/2025 Discontinued (Discontinued by Patient) Start: 12-17-2021 End: 02-02-2022 take 0.5 tablet by mouth once daily, then take 1 tablet by mouth once daily sertraline (ZOLOFT) 50 mg tablet Take 1/2 tab once a day orally for one week then 1 tab once a day 30 tablet 5 12/17/2021 02/02/2022 Discontinued Comment on above: Take 1/2 tab once a day orally for one week then 1 tab once a day sucralfate 1000 mg oral tablet (20 sources) Aluminum Complex Start: 07-13-2024 End: 11-19-2024 sucralfate (CARAFATE) 1 gram tablet Take 1 g by mouth. 07/13/2024 11/19/2024 Discontinued (Discontinued by Patient) Start: 01-23-2024 End: 02-22-2024 take 1 tablet by mouth at bedtime sucralfate (CARAFATE) 1 gram tablet Indications: Epigastric pain Take 1 tablet by mouth before meals and at bedtime. 120 tablet 0 01/23/2024 01/29/2024 Discontinued (Duplicate Entry) Start: 10-31-2023 End: 11-30-2023 take 1 tablet by mouth at bedtime sucralfate (CARAFATE) 1 gram tablet Indications: Epigastric pain , Gastroesophageal reflux disease, unspecified whether esophagitis present Take 1 tablet by mouth before meals and at bedtime. 120 tablet 0 10/31/2023 11/06/2023 Discontinued Start: 01-16-2023 End: 07-15-2023 take 1 tablet by mouth four times daily sucralfate (CARAFATE) 1 gram tablet Indications: Gastritis with hemorrhage, unspecified chronicity, unspecified gastritis type Take 1 tablet by mouth four times daily. 120 tablet 5 01/16/2023 04/27/2023 Discontinued Comment on above: Take 1 tablet by micaela th four times daily. Take 1 tablet by micaela th before meals and at bedtime. tamsulosin hydrochloride 0.4 mg oral capsule (7 sources) alpha-Adrenergic Nelson Start: End: 5 take 1 capsule by mouth once daily at bedtime tamsulosin (FLOMAX) 0.4 mg Indications: Flank pain Take 1 capsule by mouth daily at bedtime. 30 capsule 10/04/2024 10/18/2024 Discontinued (Other) tiZANidine 4 mg oral tablet (19 sources) Central alpha-2 Adrenergic Agonist Start: End: 5 take 1 tablet by mouth every eight hours as needed tiZANidine (ZANAFLEX) 4 mg tablet Indications: Muscle strain of right scapular region, initial encounter Take 1 tablet by mouth every 8 hours as needed. 15 tablet 10/25/2024 11/06/2024 Discontinued (Other) Start: 07-16-2024 End: 08-15-2024 take 1 tablet by mouth every eight hours as needed for muscle spasms tiZANidine (ZANAFLEX) 4 mg tablet Indications: Acute thoracic back pain, unspecified back pain laterality Take 1 tablet by mouth every 8 hours as needed (muscle spasms). 90 tablet 07/16/2024 08/15/2024 Active Start: 11-09-2023 End: 11-19-2023 take 1 tablet by mouth every eight hours as needed for muscle spasms tiZANidine (ZANAFLEX) 4 mg tablet Indications: Muscle strain Take 1 tablet by mouth every 8 hours as needed (muscle spasms) for up to 10 days. 30 tablet 0 11/09/2023 11/19/2023 Active Comment on above: Take 1 tablet by micaela th every 8 hours as needed (muscle spasms) for up to 10 days. Problems Active Problems Problem Classification Problem Date Documented Da te Episodic/Chronic Abdominal pain (20 sources) Generalized abdominal pain; Translations: [Generalized abdominal pain] Onset: 2 Resolved: 4 Episodic Anxiety disorders (20 sources) Anxiety; Translations: [Anxiety disorder, unspecified] Onset: 9 06-28-2019 Chronic Biliary tract disease (3 sources) Cyst of biliary tract; Translations: [Biliary cyst] Chronic Chronic kidney disease (20 sources) Chronic kidney disease stage 3; Translations: [Stage 3 chronic kidney disease, unspecified whether stage 3a or 3b CKD (HCC)] Onset: 3 Chronic Chronic kidney disease (2 sources) Chronic kidney disease; Translations: [Chronic kidney disease, stage 3 unspecified] Onset: 3 Deficiency and other anemia (2 sources) Vitamin B12 deficiency anemia due to malabsorption with proteinuria; Translations: [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 malabsorption with proteinuria] 12-26-2023 Episodic Disorders of lipid metabolism (20 sources) Mixed hyperlipidemia; Translations: [Mixed hyperlipidemia] Onset: 7 04-05-2017 Chronic Disorders of teeth and jaw (4 sources) Jaw pain; Translations: [Jaw pain] Onset: 5 Episodic Esophageal disorders (20 sources) Gastroesophageal reflux disease without esophagitis; Translations: [Gastro-esophageal reflux disease without esophagitis] Onset: 9 06-28-2019 Chronic Essential hypertension (20 sources) Hypertensive disorder; Translations: [Essential (primary) hypertension] Onset: 7 04-05-2017 Chronic Gastritis and duodenitis (1 source) Acute hemorrhagic gastritis; Translations: [Gastritis, unspecified, with bleeding] Episodic Genitourinary symptoms and ill-defined conditions (20 sources) Dysuria; Translations: [Dysuria] Onset: 2 Episodic Headache; including migraine (2 sources) Headache; including migraine; Translations: [Headache, unspecified] Onset: 3 Immunizations and screening for infectious disease (1 source) Suspected disease caused by 2019-nCoV; Translations: [Suspected COVID-19 virus infection] 06-19-2024 Episodic Influenza (1 source) Influenza due to unidentified influenza virus with other respiratory manifestations; Translations: [Influenza due to unidentified influenza virus with other respiratory manifestations] Onset: 2 Episodic Intestinal infection (2 sources) Viral gastroenteritis; Translations: [Viral intestinal infection, unspecified] Episodic Malaise and fatigue (2 sources) Fatigue; Translations: [Chronic fatigue, unspecified] 06-11-2024 Chronic Malaise and fatigue (4 sources) Fatigue; Translations: [Other fatigue] Episodic Menopausal disorders (1 source) Atrophic vaginitis; Translations: [Postmenopausal atrophic vaginitis] Chronic Mood disorders (1 source) Depressive disorder; Translations: [Depression, unspecified depression type] 03-14-2025 Chronic Nausea and vomiting (11 sources) Nausea and vomiting; Translations: [Nausea with vomiting, unspecified] Onset: 2 Episodic Neoplasms of unspecified nature or uncertain behavior (3 sources) Benign neoplasm of pancreas; Translations: [Neoplasm of unspecified behavior of digestive system] Episodic Noninfectious gastroenteritis (2 sources) Enteritis of small intestine; Translations: [Noninfective gastroenteritis and colitis, unspecified] Onset: 5 04-14-2025 Episodic Nonmalignant breast conditions (2 sources) Pain of breast; Translations: [Mastodynia] 03-26-2024 Episodic Nutritional deficiencies (20 sources) Vitamin D deficiency; Translations: [Vitamin D deficiency, unspecified] Onset: 3 Resolved: 3 Chronic Osteoarthritis (20 sources) Osteoarthritis; Translations: [Unspecified osteoarthritis, unspecified site] Onset: 2 05-15-2014 Chronic Osteoporosis (20 sources) Senile osteoporosis; Translations: [Age-related osteoporosis without current pathological fracture] Onset: 2 Chronic Other bone disease and musculoskeletal deformities (1 source) Pain of right shoulder blade; Translations: [Other specified disorders of bone, shoulder] 10-27-2021 Episodic Other circulatory disease (1 source) Upper respiratory tract finding; Translations: [Other specified symptoms and signs involving the circulatory and respiratory systems] 03-22-2024 Episodic Other connective tissue disease (1 source) Muscle pain; Translations: [Myalgia, unspecified site] Episodic Other connective tissue disease (1 source) Pain in right arm; Translations: [Pain in right arm] Episodic Other connective tissue disease (1 source) Spasm; Translations: [Other muscle spasm] Episodic Other connective tissue disease (1 source) Bilateral cramp of muscle of lower limbs; Translations: [Cramp and spasm] 04-08-2024 Episodic Other connective tissue disease (1 source) Cramp; Translations: [Cramp and spasm] 10-15-2024 Episodic Other connective tissue disease (1 source) Pain in bilateral lower legs; Translations: [Pain in right lower leg] 10-15-2024 Episodic Other connective tissue disease (2 sources) Other symptoms and signs involving the musculoskeletal system; Translations: [Other musculoskeletal symptoms referable to limbs] Onset: 5 04-23-2025 Episodic Other ear and sense organ disorders (2 sources) Otalgia, left ear; Translations: [Otalgia, unspecified] 11-06-2023 Episodic Other ear and sense organ disorders (2 sources) Impacted cerumen in right ear; Translations: [Impacted cerumen, right ear] 12-07-2023 Episodic Other female genital disorders (1 source) Pain in female genitalia on intercourse; Translations: [Unspecified dyspareunia] Chronic Other female genital disorders (1 source) Stenosis of cervix; Translations: [Stricture and stenosis of cervix uteri] 01-03-2024 Episodic Other gastrointestinal disorders (2 sources) Diarrhea; Translations: [Diarrhea, unspecified] Episodic Other injuries and conditions due to external causes (2 sources) Muscle strain; Translations: [Other injury of unspecified body region, initial encounter] 09-07-2023 Episodic Other lower respiratory disease (12 sources) Rib pain; Translations: [Pleurodynia] Episodic Other lower respiratory disease (1 source) Dry cough; Translations: [Persistent dry cough] 08-04-2023 Episodic Other lower respiratory disease (3 sources) Multiple nodules of lung; Translations: [Other nonspecific abnormal finding of lung field] 04-11-2023 Episodic Other lower respiratory disease (1 source) Abnormal findings on diagnostic imaging of lung; Translations: [Other nonspecific abnormal finding of lung field] 12-04-2021 Episodic Other lower respiratory disease (2 sources) Solitary nodule of lung; Translations: [Solitary pulmonary nodule] 07-29-2024 Episodic Other lower respiratory disease (1 source) Pleurodynia; Translations: [Rib pain on right side] Onset: 5 Episodic Other nervous system disorders (1 source) Tingling of skin; Translations: [Paresthesia of skin] Episodic Other non-traumatic joint disorders (2 sources) Pain in elbow; Translations: [Pain in left elbow] Episodic Other non-traumatic joint disorders (4 sources) Pain in right knee; Translations: [Pain in joint, lower leg] Onset: 5 10-13-2021 Episodic Other non-traumatic joint disorders (1 source) Pain in left knee; Translations: [Pain in both knees, unspecified chronicity] Onset: 5 Episodic Other nutritional; endocrine; and metabolic disorders (1 source) Hypermagnesemia; Translations: [Hypermagnesemia] 10-18-2024 Chronic Other nutritional; endocrine; and metabolic disorders (1 source) Hypermagnesemia; Translations: [Hypermagnesemia] Onset: 5 Chronic Other screening for suspected conditions (not mental disorders or infectious disease) (6 sources) Endometrium thickened; Translations: [Abnormal findings on diagnostic imaging of other specified body structures] 12-11-2023 Chronic Other screening for suspected conditions (not mental disorders or infectious disease) (18 sources) Patient encounter status; Translations: [Encounter for screening for malignant neoplasm of colon] Onset: 4 Episodic Other skin disorders (2 sources) Multiple actinic keratoses; Translations: [Actinic keratosis] 11-19-2024 Episodic Other upper respiratory disease (9 sources) Seasonal allergic rhinitis; Translations: [Other allergic rhinitis] Chronic Other upper respiratory disease (20 sources) Allergic rhinitis; Translations: [Allergic rhinitis, unspecified] Onset: 3 10-22-2022 Chronic Other upper respiratory disease (1 source) Allergic rhinitis due to pollen; Translations: [Allergic rhinitis due to pollen] 02-09-2024 Chronic Other upper respiratory disease (1 source) Allergic rhinitis due to pollen; Translations: [Seasonal allergic rhinitis due to pollen] Onset: 3 Chronic Other upper respiratory disease (2 sources) Nasal congestion; Translations: [Nasal congestion] Episodic Other upper respiratory disease (1 source) Nasal sinus problem; Translations: [Other specified disorders of nose and nasal sinuses] 09-01-2023 Episodic Other upper respiratory disease (1 source) Bleeding from nose; Translations: [Epistaxis] 10-09-2024 Episodic Other upper respiratory infections (20 sources) Acute upper respiratory infection; Translations: [Acute upper respiratory infection, unspecified] Onset: 3 Episodic Pancreatic disorders (not diabetes) (15 sources) Cyst of pancreas; Translations: [Cyst of pancreas] Onset: 5 Episodic Peripheral and visceral atherosclerosis (1 source) Peripheral vascular disease, unspecified; Translations: [PVD (peripheral vascular disease)] Onset: 5 Chronic Residual codes; unclassified (20 sources) Hereditary disorder of endocrine system; Translations: [Genetic susceptibility to other disease] 04-05-2017 Episodic Residual codes; unclassified (1 source) Postmenopausal state; Translations: [Asymptomatic menopausal state] Episodic Residual codes; unclassified (1 source) Generalized aches and pains; Translations: [Pain, unspecified] Episodic Residual codes; unclassified (1 source) Genetic susceptibility to other disease; Translations: [Genetic susceptibility to other disease] Onset: 2 Episodic Residual codes; unclassified (1 source) Family history of other malignant neoplasms of lymphoid, hematopoietic and related tissues; Translations: [Family history of other malignant neoplasms of lymphoid, hematopoietic and related tissues] Onset: 2 Episodic Residual codes; unclassified (1 source) Contact with and (suspected) exposure to lead; Translations: [Personal history of contact with and (suspected) exposure to lead] Episodic Residual codes; unclassified (1 source) Difficulty sleeping ; Translations: [Sleep disorder, unspecified] 08-08-2024 Episodic Residual codes; unclassified (1 source) Left before being seen; Translations: [Procedure and treatment not carried out due to patient leaving prior to being seen by health care provider] 08-09-2024 Episodic Residual codes; unclassified (1 source) Procedure not done; Translations: [Procedure and treatment not carried out due to patient leaving prior to being seen by health care provider] 12-06-2024 Episodic Spondylosis; intervertebral disc disorders; other back problems (20 sources) Degeneration of cervical intervertebral disc; Translations: [Other cervical disc degeneration, unspecified cervical region] Onset: 7 04-05-2017 Chronic Spondylosis; intervertebral disc disorders; other back problems (20 sources) Neck pain; Translations: [Cervicalgia] Onset: 4 Episodic Substance-related disorders (1 source) Nicotine dependence, unspecified, uncomplicated; Translations: [Nicotine dependence, unspecified, uncomplicated] Onset: 3 Chronic Thyroid disorders (20 sources) Thyroid nodule; Translations: [Nontoxic single thyroid nodule] Onset: 7 09-26-2017 Chronic Unclassified (1 source) Personal history of COVID-19; Translations: [Personal history of COVID-19] Onset: 2 Unclassified (2 sources) New Patient Visit; Translations: [New Patient Visit] Onset: 4 Unclassified (1 source) Low back pain, unspecified; Translations: [Low back pain, unspecified] Onset: 4 Unclassified (1 source) Pain in both knees, unspecified chronicity 05-01-2025 Unclassified (1 source) Lumbar spine pain; Translations: [Lumbar spine pain] Onset: 5 Unclassified (1 source) Midline low back pain, unspecified chronicity, unspecified whether sciatica present; Translations: [Midline low back pain, unspecified chronicity, unspecified whether sciatica present] Onset: 5 Unclassified (1 source) Degeneration of intervertebral disc of lumbar region, unspecified whether pain present; Translations: [Degeneration of intervertebral disc of lumbar region, unspecified whether pain present] Onset: 4 Unclassified (1 source) Suspected COVID-19 virus infection; Translations: [Suspected COVID-19 virus infection] Onset: 4 Urinary tract infections (2 sources) Interstitial cystitis (chronic) without hematuria; Translations: [Chronic interstitial cystitis] Onset: 5 03-27-2025 Chronic Viral infection (2 sources) Viral infection, unspecified; Translations: [Disease caused by 2019-nCoV] Onset: 2 Episodic Past or Other Problems Problem Classification Problem Date Documented Date Episodic/Chronic Allergic reactions (8 sources) Allergic condition; Translations: [Allergy, unspecified, initial encounter] Onset: 3 Episodic Biliary tract disease (20 sources) Gallstone; Translations: [Calculus of gallbladder without cholecystitis without obstruction] Onset: 2 11-16-2021 Episodic Deficiency and other anemia (1 source) 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 malabsorption with proteinuria; Translations: [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 malabsorption with proteinuria] Onset: 5 Episodic E Codes: Fall (20 sources) Fall (on) (from) other stairs and steps, initial encounter; Translations: [Fall] Onset: 2 Resolved: 4 08-21-2023 Episodic Nonspecific chest pain (20 sources) Chest wall pain; Translations: [Other chest pain] Onset: 3 Resolved: 4 08-21-2023 Episodic Nutritional deficiencies (16 sources) Iron deficiency; Translations: [Iron deficiency] Onset: 4 Episodic Other aftercare (1 source) Other chcf (current) drug therapy; Translations: [Other chcf (current) drug therapy] Onset: 3 Episodic Other circulatory disease (20 sources) H/O: hypertension; Translations: [Personal history of other diseases of the circulatory system] Onset: 3 Resolved: 4 08-21-2023 Episodic Other connective tissue disease (1 source) Pain in right lower leg; Translations: [Pain in both lower legs] Onset: 5 Episodic Other connective tissue disease (1 source) Pain in left lower leg; Translations: [Pain in both lower legs] Onset: 5 Episodic Other connective tissue disease (1 source) Cramp and spasm; Translations: [Muscle cramps] Onset: 5 Episodic Other diseases of kidney and ureters (20 sources) Hyperparathyroidism due to renal insufficiency; Translations: [Secondary hyperparathyroidism of renal origin] Onset: 3 Resolved: 3 Chronic Other ear and sense organ disorders (1 source) Impacted cerumen, right ear; Translations: [Impacted cerumen of right ear] Onset: 5 Episodic Other gastrointestinal disorders (20 sources) Constipation; Translations: [Constipation, unspecified] Onset: 3 Resolved: 4 08-21-2023 Episodic Other infections; including parasitic (20 sources) Personal history of other infectious and parasitic diseases; Translations: [History of COVID-19] Onset: 1 Resolved: 3 07-12-2021 Episodic Other lower respiratory disease (20 sources) Nodule of lung; Translations: [Solitary pulmonary nodule] Onset: 2 11-16-2021 Episodic Other lower respiratory disease (2 sources) Solitary pulmonary nodule; Translations: [Solitary pulmonary nodule] Onset: 2 Episodic Other lower respiratory disease (1 source) Other nonspecific abnormal finding of lung field; Translations: [Lung nodules] Onset: 4 Episodic Other non-traumatic joint disorders (2 sources) Pain in left shoulder; Translations: [Pain in left shoulder] Onset: 3 Episodic Other upper respiratory disease (20 sources) Congestion of nasal sinus; Translations: [Nasal congestion] Onset: 3 Resolved: 3 Episodic Other upper respiratory disease (1 source) Epistaxis; Translations: [Epistaxis] Onset: 5 Episodic Cynthia-; endo-; and myocarditis; cardiomyopathy (except that caused by tuberculosis or sexually transmitted disease) (20 sources) Pericardial effusion; Translations: [Pericardial effusion (noninflammatory)] Onset: 3 Episodic Residual codes; unclassified (20 sources) Family history of multiple myeloma; Translations: [Family history of other malignant neoplasms of lymphoid, hematopoietic and related tissues] Onset: 2 08-21-2023 Episodic Residual codes; unclassified (20 sources) Pain; Translations: [Pain, unspecified] Onset: 3 Resolved: 4 10-25-2023 Episodic Residual codes; unclassified (1 source) Procedure and treatment not carried out due to patient leaving prior to being seen by health care provider; Translations: [Patient left without being seen] Onset: 4 Episodic Screening and history of mental health and substance abuse codes (3 sources) Personal history of nicotine dependence; Translations: [Encounter for screening for depression] Onset: 4 Episodic Sprains and strains (20 sources) Strain of muscle of left shoulder; Translations: [Strain of unspecified muscle, fascia and tendon at shoulder and upper arm level, left arm, initial encounter] Onset: 3 Resolved: 4 Episodic Superficial injury; contusion (20 sources) Contusion of left hip, initial encounter; Translations: [Contusion of left shoulder, initial encounter] Onset: 2 Resolved: 4 08-21-2023 Episodic Unclassified (1 source) Low back pain, unspecified; Translations: [Low back pain, unspecified] Onset: 4 Urinary tract infections (20 sources) Recurrent urinary tract infection; Translations: [Urinary tract infection, site not specified] Onset: 2 Resolved: 4 Episodic Results Test Name Value Interpretation Reference Range [facility] ([id number]) 1955 F Date Time Provider Department 05/22/25 ROSIE LUNA During your visit today, we recorded the following information about you: Daylin Manriquez RN 05/26/2025 12:07 PM Addendum Called pt inquiring about EGD scheduled at [facility]; note stated that pt does not want to have MAC anesthesia due to allergies. Asked pt to please call [facility] back to clarify to see if appt needs to be scheduled at another facility. Daylin Manriquez RN 05/26/2025 12:11 PM Signed Contacted pt a second time to see if pt would like to have her EGD done at [place] under [facility]. Pt stated that she wants to have her procedure done under [facility]. Education provided on the different locations and their anesthesia capabilities. Pt again confirmed that she does not want a deep sedation and that she would need to have this procedure to be done at another location other than [place]. Phone number given to reschedule. All questions answered. Allergies As of Date: 05/22/2025 Noted Allergy Reaction AMOXICILLIN 11/10/2008 9 - Itching ASA (SALICYLATES) 11/10/2008 9 - Itching CODEINE 11/10/2008 9 - Itching CORTIZONE-10 (HYDROCORTISONE) 11/10/2008 9 - Itching CYMBALTA (DULOXETINE) 11/15/2018 5 - Intolerance Comments: One pill: bruning all over DOLOBID (DIFLUNISAL) 08/21/2023 9 - Itching DURICEF (CEFADROXIL) 11/10/2008 9 - Itching DYE 04/05/2019 12 - Shortness of Breath Comments: Ct dye. Including rash ENTEX LA (PHENYLEPHRINE-GUAIFENE S*11/10/2008 9 - Itching ERYTHROMYCIN 11/10/2008 9 - Itching FLU VAC 2015 (65 UP)-MF59C(PF) 06/30/2021 12 - Shortness of Breath KEFLEX (CEPHALEXIN) 11/10/2008 9 - Itching LEVAQUIN (LEVOFLOXACIN) 01/23/2021 14 - Other: See Comments Comments: itching MACROBID (NITROFURANTOIN MONOHYD/*01/23/2021 14 - Other: See Comments Comments: Fast heart rate MOBIC (MELOXICAM) 11/21/2017 9 - Itching MORPHINE 11/10/2008 9 - Itching PANTOPRAZOLE 09/28/2023 9 - Itching PENICILLINS 11/10/2008 4 - Hives PREDNISOLONE 09/07/2020 14 - Other: See Comments Comments: Elevated blood pressure. Has done well with medrol dose april. PRILOSEC (OMEPRAZOLE) 08/03/2021 9 - Itching SEPTRA (SULFAMETHOXAZOLE-TRIME THO*11/10/2008 4 - Hives SULFA (SULFONAMIDE ANTIBIOTICS) 11/10/2008 4 - Hives TETRACYCLINE 09/01/2021 4 - Hives Comments: Can take doxycycline Date Reviewed: 05/17/2025 Reviewed by: Deepali Gould LPN - Fully Assessed Prescriptions as of 05/26/2025 - atorvastatin (LIPITOR) 10 mg tablet Take 1 tablet by mouth daily at bedtime. For cholesterol. - ciprofloxacin HCl (CIPRO) 500 mg tablet Take 1 tablet by mouth two times a day for 10 days. - methylPREDNISolone (MEDROL, APRIL,) 4 mg Dose-Pack Take as instructed per package. - ondansetron (ZOFRAN) 4 mg tablet Take 1 tablet by mouth every 8 hours as needed for nausea/vomiting for up to 7 days. - conjugated estrogens (PREMARIN) vaginal cream Use 2 g vaginally two times a week. - fluticasone (FLONASE) 50 mcg/actuation nasal spray Use 2 sprays in each nostril once daily. Rinse mouth after use. - famotidine (PEPCID) 20 mg tablet Take 1 tablet by mouth two times a day. - lisinopril (ZESTRIL) 40 mg tablet Take 1 tablet by mouth once daily. - folic acid 1 mg tablet Take 1 tablet by mouth once daily. Problem List As Of Date 05/22/2025 Noted Resolved Routine General Medical Examination at [facility]*11/10/2008 05/15/2014 Osteoarthritis [M19.90] HTN (hypertension) [I10] 04/05/2017 MTHFR mutation (HCC) [Z15.89] DDD (degenerative disc disease), cervical [M50.* Mixed hyperlipidemia [E78.2] 04/05/2017 Thyroid nodule [E04.1] 09/26/2017 GERD without esophagitis [K21.9] 06/28/2019 Anxiety [F41.9] 06/28/2019 History of COVID-19 [Z86.16] 07/12/2021 01/30/2023 Gallstones [K80.20] 11/16/2021 Lung nodule [R91.1] 11/16/2021 Osteoporosis without current pathological fract*06/07/2022 Sinus congestion [R09.81] 10/22/2022 01/30/2023 Allergic rhinitis due to allergen [J30.9] 10/22/2022 Chronic kidney disease, stage 3a (HCC) [N18.31] 10/22/2022 Pericardial effusion [I31.39] 11/05/2022 Protein-calorie malnutrition, unspecified sever*01/26/2023 01/30/2023 Secondary renal hyperparathyroidism (HCC) [N25.*01/26/2023 01/30/2023 Abdominal pain [R10.9] 10/13/2021 10/25/2023 Diagnosed: 08/21/2023 Acute cystitis [N30.00] 01/03/2022 10/25/2023 Diagnosed: 08/21/2023 Chest wall pain [R07.89] 08/21/2023 10/25/2023 Diagnosed: 08/21/2023 Constipation [K59.00] 08/21/2023 04/22/2024 Diagnosed: 08/21/2023 Contusion of left hip [S70.02XA] 09/16/2022 10/25/2023 Diagnosed: 08/21/2023 Contusion of left shoulder [S40.012A] 09/16/2022 10/25/2023 Diagnosed: 08/21/2023 Dysuria [R30.0] 01/03/2022 Diagnosed: 08/21/2023 Fall [W19.XXXA] 08/21/2023 10/25/2023 Diagnosed: 08/21/2023 Family history of multiple myeloma [ (more content not included)... Normal [facility] CT Abdomen and Pelvis WO con traston 05-05-2025 Radiology Study observation (narrative) [facility] IMPRESSION: Interval decreased size of uncinate process pancreatic cyst. Professor Of Criminal Justice: PSCB Transcribe Date/Time: May 05 2025 11:13A Dictated by : EVAN MORENO MD This examination was interpreted and the report reviewed and electronically signed by: EVAN MORENO MD on May 05 2025 11:22AM [facility] DIVISION OF RADIOLOGY * * *Final Report* * * DATE OF EXAM: May 05 2025 10:35AM [facility] 0531 - CT ABD/PEL WO IVCON / PROCEDURE REASON: multiple diagnoses * * * * Physician Interpretation * * * * EXAMINATION: CT ABDOMEN AND PELVIS WITHOUT IV CONTRAST CLINICAL HISTORY: Surveillance imaging of pancreatic cyst. TECHNIQUE: Non-IV contrast imaging of the abdomen and pelvis was performed using standard technique, scanning from just above the dome of the diaphragm to the symphysis pubis. Unenhanced imaging is limited for the evaluation of some intra-abdominal and pelvic pathology. MQ: CTAPWO_3 Contrast: IV: None CT Radiation dose: Integrated Dose-length product (DLP) for this visit = 429 mGy*cm. CT Dose Reduction Employed: Automated exposure control(AEC) and iterative recon COMPARISON: 05/04/2024 and MR 12/01/2021 RESULT: Liver: No mass. Stable calcifications. Biliary: Cholelithiasis. Spleen: No splenomegaly. Stable calcified granulomas. Pancreas: -Interval decreased size of the cystic lesion extending medially from the uncinate process, now 0.8 cm (5:46), previously 1.2 cm. -No new pancreatic cystic lesion identified by noncontrast technique. Adrenals: No mass. Kidneys: Renal sinus cysts present bilaterally. No calculus or hydronephrosis. GI Tract: No bowel dilation. Colonic diverticula present without findings of acute diverticulitis. Normal appendix. Lymph Nodes: No lymphadenopathy. Mesentery/peritoneum: No ascites. Retroperitoneum: No mass. Vasculature: No aortic aneurysm. Pelvis: No mass or ascites. Bones/Soft Tissues: No acute abnormality. Lower thorax: Stable calcified granulomas. Localizer images: Unremarkable. DIVISION OF RADIOLOGY Provider, [facility] - 05/05/2025 * * *Final Report* * * DATE OF EXAM: May 05 2025 10:35AM [facility] 0531 - CT ABD/PEL WO IVCON / PROCEDURE REASON: multiple diagnoses * * * * Physician Interpretation * * * * EXAMINATION: CT ABDOMEN AND PELVIS WITHOUT IV CONTRAST CLINICAL HISTORY: Surveillance imaging of pancreatic cyst. TECHNIQUE: Non-IV contrast imaging of the abdomen and pelvis was performed using standard technique, scanning from just above the dome of the diaphragm to the symphysis pubis. Unenhanced imaging is limited for the evaluation of some intra-abdominal and pelvic pathology. MQ: CTAPWO_3 Contrast: IV: None CT Radiation dose: Integrated Dose-length product (DLP) for this visit = 429 mGy*cm. CT Dose Reduction Employed: Automated exposure control(AEC) and iterative recon COMPARISON: 05/04/2024 and MR 12/01/2021 RESULT: Liver: No mass. Stable calcifications. Biliary: Cholelithiasis. Spleen: No splenomegaly. Stable calcified granulomas. Pancreas: -Interval decreased size of the cystic lesion extending medially from the uncinate process, now 0.8 cm (5:46), previously 1.2 cm. -No new pancreatic cystic lesion identified by noncontrast technique. Adrenals: No mass. Kidneys: Renal sinus cysts present bilaterally. No calculus or hydronephrosis. GI Tract: No bowel dilation. Colonic diverticula present without findings of acute diverticulitis. Normal appendix. Lymph Nodes: No lymphadenopathy. Mesentery/peritoneum: No ascites. Retroperitoneum: No mass. Vasculature: No aortic aneurysm. Pelvis: No mass or ascites. Bones/Soft Tissues: No acute abnormality. Lower thorax: Stable calcified granulomas. Localizer images: Unremarkable. IMPRESSION IMPRESSION: Interval decreased size of uncinate process pancreatic cyst. Professor Of Criminal Justice: PSCB Transcribe Date/Time: May 05 2025 11:13A Dictated by : EVAN MORENO MD This examination was interpreted and the report reviewed and electronically signed by: EVAN MORENO MD on May 05 2025 11:22AM EST [facility] CT Abdomen and Pelvis WO con trastOrdered By: [facility] Provider on 05-05-2025 [facility] UA DIP, URINE (POC)on 2024 BILIRUBIN UA (POCT) Negative Negative [facility] CLARITY UA (POCT) Clear [facility] COLOR UA (POCT) Yellow [facility] GLUCOSE UA (POCT) Negative Negative mg/dL [facility] Hemoglobin Ql (U) Trace-intact Abnormal Negative [facility] Interpretation and review of laboratory results Abnormal [facility] KETONE UA (POCT) Negative Negative mg/dL [facility] LEUKOCYTES UA (POCT) Negative Negative [facility] NITRITE UA (POCT) Negative Negative [facility]A (POCT) 8.5 Abnormal 4.5 - 8.0 [facility] Protein Ql (U) Trace Abnormal Negative mg/dL [facility] SPECIFIC GRAVITY UA (POCT) 1.015 1.005 - 1.030 [facility] UROBILINOGEN UA (POCT) 0.2 Normal E.U./dL [facility] Location:[address], [place], [place], [id number] [place] [address] POINT OF CARE [facility] UA DIP, URINE (POC)on 2024 BILIRUBIN UA (POCT) Negative Negative [facility] CLARITY UA (POCT) Clear [facility] COLOR UA (POCT) Yellow [facility] GLUCOSE UA (POCT) Negative Negative mg/dL [facility] Hemoglobin Ql (U) Trace-intact Abnormal Negative [facility] Interpretation and review of laboratory results Abnormal [facility] KETONE UA (POCT) Negative Negative mg/dL [facility] LEUKOCYTES UA (POCT) Negative Negative [facility] NITRITE UA (POCT) Negative Negative [facility] PH UA (POCT) 7.5 4.5 - 8.0 [facility] Protein Ql (U) Negative Negative mg/dL [facility] SPECIFIC GRAVITY UA (POCT) 1.015 1.005 - 1.030 [facility] UROBILINOGEN UA (POCT) 0.2 Normal E.U./dL [facility] Location:[address], [place], [place], [address] [place] [address] POINT OF CARE [facility] No Panel Informationon 03-24 Radiology Study observation (narrative) [facility] XR Lumbar spine 3 Viewson IMPRESSION: Degenerative changes as described. Chronic L5 pars defects with grade 1/2 anterolisthesis of L5 on S1. Professor Of Criminal Justice: PSCB Transcribe Date/Time: Mar 24 2025 10:15A Dictated by : MARINO PHILLIP MD This examination was interpreted and the report reviewed and electronically signed by: MARINO PHILLIP MD on Mar 24 2025 10:17AM [facility] DIVISION OF RADIOLOGY * * *Final Report* * * DATE OF EXAM: Mar 24 2025 9:59AM [facility] [id number] - XR LUMBAR 3V AP/LAT/L5-S1 / PROCEDURE REASON: multiple diagnoses * * * * Physician Interpretation * * * * TITLE: XR LUMBAR 3V AP/LAT/L5-S1 CLINICAL INDICATION: Back pain TECHNIQUE: 3 view radiographic study of the lumbar spine COMPARISON: Radiograph dated 09/29/2022 FINDINGS: There are 5 nonrib-bearing lumbar vertebral bodies. Mild levocurvature of the lumbar spine with apex at L2. Preservation of vertebral body height. Moderate disc space narrowing with endplate sclerosis and marginal osteophyte formation at L2/L3. Moderate disc space narrowing with endplate sclerosis and marginal osteophyte formation at L5/S1. Bilateral L5 pars defects with grade 1/2 anterolisthesis of L5 on S1. Facet joint arthrosis at L4/L5 and L5/S1. DIVISION OF RADIOLOGY Provider, [facility] - 03/24/2025 * * *Final Report* * * DATE OF EXAM: Mar 24 2025 9:59AM [facility] [id number] - XR LUMBAR 3V AP/LAT/L5-S1 / PROCEDURE REASON: multiple diagnoses * * * * Physician Interpretation * * * * TITLE: XR LUMBAR 3V AP/LAT/L5-S1 CLINICAL INDICATION: Back pain TECHNIQUE: 3 view radiographic study of the lumbar spine COMPARISON: Radiograph dated 09/29/2022 FINDINGS: There are 5 nonrib-bearing lumbar vertebral bodies. Mild levocurvature of the lumbar spine with apex at L2. Preservation of vertebral body height. Moderate disc space narrowing with endplate sclerosis and marginal osteophyte formation at L2/L3. Moderate disc space narrowing with endplate sclerosis and marginal osteophyte formation at L5/S1. Bilateral L5 pars defects with grade 1/2 anterolisthesis of L5 on S1. Facet joint arthrosis at L4/L5 and L5/S1. IMPRESSION IMPRESSION: Degenerative changes as described. Chronic L5 pars defects with grade 1/2 anterolisthesis of L5 on S1. Professor Of Criminal Justice: PSCB Transcribe Date/Time: Mar 24 2025 10:15A Dictated by : MARINO PHILLIP MD This examination was interpreted and the report reviewed and electronically signed by: MARINO PHILLIP MD on Mar 24 2025 10:17AM EST [facility] XR Thoracic spine AP and Lat eralon 03-24-2025 Addendum by Provider , [facility] on 03/24/2025 10:17 AM EDT * * *Final Report* * * DATE OF EXAM: Mar 24 2025 9:59AM [facility] [id number] - XR THORACIC 2V AP/LAT / PROCEDURE REASON: multiple diagnoses * * * * Physician Interpretation * * * * TITLE: XR THORACIC 2V AP/LAT CLINICAL INDICATION: Back pain TECHNIQUE: 2 view radiographic study of the thoracic spine COMPARISON: Radiograph dated 07/16/2024 FINDINGS: Preservation of vertebral body height. Stable mild degenerative changes with mild marginal osteophyte formation. No radiographic evidence of abnormal paraspinal density. IMPRESSION: Preservation of thoracic body vertebral height. See separate dictation of concurrently performed lumbar spine radiograph which will be reported under a separate cover. Professor Of Criminal Justice: PSCB Transcribe Date/Time: Mar 24 2025 10:03A Dictated by : MARINO PHILLIP MD This examination was interpreted and the report reviewed and electronically signed by: MARINO PHILLIP MD on Mar 24 2025 10:17AM EST [facility] XR Thoracic spine AP and Lat eralOrdered By: [facility] Provider on 03-24-2025 [facility] UA DIP, URINE (POC)on 2024 BILIRUBIN UA (POCT) Negative Negative [facility] CLARITY UA (POCT) Clear [facility] COLOR UA (POCT) Light yellow [facility] GLUCOSE UA (POCT) Negative Negative mg/dL [facility] Hemoglobin Ql (U) Trace-lysed Abnormal Negative [facility] Interpretation and review of laboratory results Abnormal [facility] KETONE UA (POCT) Negative Negative mg/dL [facility] LEUKOCYTES UA (POCT) Negative Negative [facility] NITRITE UA (POCT) Negative Negative [facility] PH UA (POCT) 8 4.5 - 8.0 [facility] Protein Ql (U) Negative Negative mg/dL [facility] SPECIFIC GRAVITY UA (POCT) 1.015 1.005 - 1.030 [facility] UROBILINOGEN UA (POCT) 0.2 Normal E.U./dL [facility] Location:[address], [place], [address] [facility] POINT OF CARE [facility] UA DIP, URINE (POC)on 2024 BILIRUBIN UA (POCT) Negative Negative [facility] CLARITY UA (POCT) Clear [facility] COLOR UA (POCT) Yellow [facility] GLUCOSE UA (POCT) Negative Negative mg/dL [facility] Hemoglobin Ql (U) Trace-lysed Abnormal Negative [facility] Interpretation and review of laboratory results Abnormal [facility] KETONE UA (POCT) Negative Negative mg/dL [facility] LEUKOCYTES UA (POCT) Negative Negative [facility] NITRITE UA (POCT) Negative Negative [facility] PH UA (POCT) 7 4.5 - 8.0 [facility] Protein Ql (U) Negative Negative mg/dL [facility] SPECIFIC GRAVITY UA (POCT) 1.015 1.005 - 1.030 [facility] UROBILINOGEN UA (POCT) 0.2 Normal E.U./dL [facility] Location:[address], [place], [address] [facility] POINT OF CARE [facility] UA DIP, URINE (POC)on 2024 BILIRUBIN UA (POCT) Negative Negative [facility] CLARITY UA (POCT) Clear [facility] COLOR UA (POCT) Yellow [facility] GLUCOSE UA (POCT) Negative Negative mg/dL [facility] Hemoglobin Ql (U) Trace-intact Abnormal Negative [facility] Interpretation and review of laboratory results Abnormal [facility] KETONE UA (POCT) Negative Negative mg/dL [facility] LEUKOCYTES UA (POCT) Trace Abnormal Negative [facility] NITRITE UA (POCT) Negative Negative [facility] PH UA (POCT) 7 4.5 - 8.0 [facility] Protein Ql (U) Negative Negative mg/dL [facility] SPECIFIC GRAVITY UA (POCT) 1.015 1.005 - 1.030 [facility] UROBILINOGEN UA (POCT) 0.2 Normal E.U./dL [facility] Location:[address], [place], [address] [facility] POINT OF CARE [facility] FOLATE, SERUMon 11-18-2024 Folate [Mass/Vol] 5.1 ng/mL 4.7 - PINF ng/mL [facility] Folate [Mass/Vol]on 11-18-19 Interpretation and review of laboratory results Normal [facility] MAGNESIUMon 11-18-2024 Magnesium [Mass/Vol] 2.3 mg/dL 1.7 - 2 .3 mg/dL [facility] Magnesium [Mass/Vol]on 11-18 Interpretation and review of laboratory results Normal [facility] 25-hydroxyvitamin D3 [Mass/V ol]on 10-15-2024 Interpretation and review of laboratory results Abnormal [facility] The reference range interval was based on an analysis of samples from healthy adults and may not pertain to children from 0-18 years old. [facility] VITAMIN D 25 HYDROXYon 10-15 25-hydroxyvitamin D3 [Mass/Vol] 27.2 ng/mL Low 31.0 - 80.0 ng/mL [facility] Comment on above: Classification of 25 [place] Vitamin D status: Deficiency/Insufficiency: < or = 30 ng/ml. Sufficiency/Optimal Levels: 31-80 ng/mL Toxicity: > 100 ng/mL. Test performed by chemiluminescent immunoassay. UA DIP, URINE (POC)on 2024 BILIRUBIN UA (POCT) Negative Negative [facility] CLARITY UA (POCT) Clear [facility] COLOR UA (POCT) Yellow [facility] GLUCOSE UA (POCT) Negative Negative mg/dL [facility] Hemoglobin Ql (U) Trace-intact Abnormal Negative [facility] Interpretation and review of laboratory results Abnormal [facility] KETONE UA (POCT) Negative Negative mg/dL [facility] LEUKOCYTES UA (POCT) Negative Negative [facility] NITRITE UA (POCT) Negative Negative [facility] PH UA (POCT) 7.0 4.5 - 8.0 [facility] Protein Ql (U) Negative Negative mg/dL [facility] SPECIFIC GRAVITY UA (POCT) 1.025 1.005 - 1.030 [facility] UROBILINOGEN UA (POCT) 0.2 Normal E.U./dL [facility] Location:[facility], [address] [place] [address], [place], [address] [facility] POINT OF CARE [facility] UA DIP, URINE (POC)on 2023 BILIRUBIN UA (POCT) Negative Negative [facility] CLARITY UA (POCT) Clear [facility] COLOR UA (POCT) Yellow [facility] GLUCOSE UA (POCT) Negative Negative mg/dL [facility] Hemoglobin Ql (U) Trace-intact Abnormal Negative [facility] Interpretation and review of laboratory results Abnormal [facility] KETONE UA (POCT) Negative Negative mg/dL [facility] LEUKOCYTES UA (POCT) Negative Negative [facility] NITRITE UA (POCT) Negative Negative [facility] PH UA (POCT) 7.5 4.5 - 8.0 [facility] Protein Ql (U) Negative Negative mg/dL [facility] SPECIFIC GRAVITY UA (POCT) 1.015 1.005 - 1.030 [facility] UROBILINOGEN UA (POCT) 0.2 Normal E.U./dL [facility] Location:[address], [id number] [place] [address] POINT OF CARE [facility] UA DIP, URINE (POC)on 2023 BILIRUBIN UA (POCT) Negative Negative [facility] CLARITY UA (POCT) Clear [facility] COLOR UA (POCT) Yellow [facility] GLUCOSE UA (POCT) Negative Negative mg/dL [facility] Hemoglobin Ql (U) Trace-intact Abnormal Negative [facility] Interpretation and review of laboratory results Abnormal [facility] KETONE UA (POCT) Negative Negative mg/dL [facility] LEUKOCYTES UA (POCT) Negative Negative [facility] NITRITE UA (POCT) Negative Negative [facility] PH UA (POCT) 8.0 4.5 - 8.0 [facility] Protein Ql (U) Negative Negative mg/dL [facility] SPECIFIC GRAVITY UA (POCT) 1.015 1.005 - 1.030 [facility] UROBILINOGEN UA (POCT) 0.2 Normal E.U./dL [facility] Location:[address], [id number] [place] [address] POINT OF CARE [facility] ED MED ADMINISTRATION DETAIL on 08-19-2024 ED MED ADMINISTRATION DETAIL Time Broker Medication Administration Record [address] [address] [id number] 08/11/2024 Patient: TERRI VILLAR Sex: Female : 1955 Age: 69y MEASUREMENTS: Wt: 56.7 kg, Ht/Jong: 64.0 in, BMI: 21.46 ALLERGIES: Influenza Virus Vaccines, Iodinated Diagnostic Agents, Penicillins, Sulfa (Sulfonamide Antibiotics), amoxicillin, cefadroxil, cephalexin, codeine, diflunisal, duloxetine, erythromycin base, hydrocortisone, levofloxacin, meloxicam, morphine, nitrofurantoin, omeprazole, pantoprazole, phenylephrine, prednisolone, salicylates, tetracycline Medication Ordered Medication Administration Date/Time 1 of 1 Normal [facility] ED NURSES CLINICAL NOTEon ED NURSES CLINICAL NOTE Nurse Narrative Nurse Clinical Narrative [address] [address] [id number] 08/11/2024 Patient: TERRI VILLAR Sex: Female : 1955 Age: 69y Disposition: Discharge to Home Disposition Decision Time: 17:08/11/2024 Departure Time: 17:19 08/11/2024 TRIAGE Arrived by private vehicle. Historian: patient. Accompanied by family. Primary physician (Dr De Luna). Triage time: 14:31 08/11/2024. Acuity: LEVEL 3. Chief Complaint: NAUSEA. Alert. No acute distress. ( Nausea and headache that started today). The patient has had nausea. SEPSIS SCREEN: NEGATIVE. SIRS criteria negative. No possible sources of infection. -- 14:36 08/11/24 DARREN Levy R.N. 14:33 08/11/24. BP: 163/92 MAP: 116. HR: 89. RR: 18. O2 saturation: 98% Temperature: 97.9 F. Pain level now 0/10. -- 14:34 08/11/24 DARREN Levy R.N. Measurements: 14:35 08/11/24 Wt: 56.7 kg, Ht/Jong: 64.0 in, BMI: 21.46 -- 14:35 08/11/24 DARREN Levy R.N. Medications: tizanidine 4 mg tablet: 1 tablet . -- 14:33 08/11/24 DARREN Levy R.N. sucralfate 1 gram tablet: 1 tablet three times a day . -- 14:33 08/11/24 DARREN Levy R.N. lisinopril 40 mg tablet: 1 tablet once a day . -- 14:33 08/11/24 DARREN Levy R.N. 1 of 4 Nurse Narrative lansoprazole 15 mg capsule,delayed release: 1 capsule once a day . -- 14:33 08/11/24 DARREN Levy R.N. fluticasone propionate 50 mcg/actuation nasal spray,suspension: 1 spray once a day . -- 14:33 08/11/24 DARREN Levy R.N. famotidine 20 mg tablet: 1 tablet once a day . -- 14:33 08/11/24 DARREN Levy R.N. doxycycline hyclate 100 mg tablet: 1 tablet twice a day . -- 14:33 08/11/24 DARREN Levy R.N. atorvastatin 10 mg tablet: 1 tablet once a day . -- 14:33 08/11/24 DARREN Levy R.N. Allergies: Penicillins -- 14:33 08/11/24 DARREN Levy R.N. Sulfa (Sulfonamide Antibiotics) -- 14:33 08/11/24 DARREN Levy R.N. erythromycin base -- 14:33 08/11/24 DARREN Levy R.N. codeine -- 14:33 08/11/24 DARREN Levy R.N. phenylephrine -- 14:33 08/11/24 DARREN Levy R.N. salicylates -- 14:33 08/11/24 DARREN Levy R.N. cefadroxil -- 14:33 08/11/24 DARREN Levy R.N. morphine -- 14:33 08/11/24 DARREN Levy R.N. cephalexin -- 14:33 08/11/24 DARREN Levy R.N. amoxicillin -- 14:33 08/11/24 DARREN Levy R.N. hydrocortisone -- 14:33 08/11/24 DARREN Levy R.N. meloxicam -- 14:33 08/11/24 DARREN Levy R.N. duloxetine -- 14:33 08/11/24 DARREN Levy R.N. Iodinated Diagnostic Agents -- 14:33 08/11/24 DARREN Levy R.N. prednisolone -- 14:33 08/11/24 DARREN Levy R.N. nitrofurantoin -- 14:33 08/11/24 DARREN Levy R.N. levofloxacin -- 14:33 08/11/24 DARREN Levy R.N. Influenza Virus Vaccines -- 14:33 08/11/24 DARREN Levy R.N. omeprazole -- 14:33 08/11/24 DARREN Levy R.N. tetracycline -- 14:33 08/11/24 DARREN Levy R.N. diflunisal -- 14:33 08/11/24 DARREN Levy R.N. pantoprazole -- 14:33 08/11/24 DARREN Levy R.N. Problems: Chronic osteoarthritis -- 14:33 08/11/24 DARREN Levy R.N. Hypertension -- 14:33 08/11/24 DARREN Levy R.N. Intervertebral Disc Disease -- 14:33 08/11/24 DARREN Levy R.N. Thyroid nodule -- 14:33 08/11/24 DARREN Levy R.N. Gastroesophageal Reflux -- 14:33 08/11/24 DARREN Levy R.N. 2 of 4 Nurse Narrative Chronic anxiety -- 14:33 08/11/24 DARREN Levy R.N. Gallstone(s) -- 14:33 08/11/24 DARREN Levy R.N. Pulmonary Nodule -- 14:33 08/11/24 DARREN Levy R.N. Osteoporosis -- 14:33 08/11/24 DARREN Levy R.N. Chronic kidney disease stage 3 -- 14:33 08/11/24 DARREN Levy R.N. Dysuria -- 14:33 08/11/24 DARREN Levy R.N. ADDITIONAL SURGERIES: -- 14:33 08/11/24 DARREN Levy R.N. History 14:31 08/11/24. SOCIAL HX: Never smoker. No alcohol use or drug use. The patient has not traveled outside the [place] Infectious disease exposure: No infectious disease exposure. ABUSE ASSESSMENT: The patient answered yes to the question(s) Do you feel safe in your home? and no to the question(s) Are you afraid to go home?, Are you afraid of your partner or someone close to you?, Has your partner or someone close to you emotionally, physically, or sexually assaulted you?, Has your partner or someone close to you threatened to harm/ kill you?, Did your partner or someone close to you cause the presenting injury(s)?, Has your partner or someone close to you ever used a weapon towards you?, Have children witnessed violence in the home? and Has your partner or someone close to you physically abused children?. Abuse denied. No report of abuse. SELF HARM ASSESSMENT: Self harm assessment was performed. The patient answered no to the quest (more content not included)... Normal [facility] ED ORDER SHEET (CPOE ONLY)on 08-19-2024 ED ORDER SHEET (CPOE ONLY) Order Sheet Order Sheet [address] [address] [id number] 08/11/2024 Patient: TERRI VILLAR Sex: Female : 1955 Age: 69y MEASUREMENTS: Wt: 56.7 kg, Ht/Jong: 64.0 in, BMI: 21.46 ALLERGIES: Influenza Virus Vaccines, Iodinated Diagnostic Agents, Penicillins, Sulfa (Sulfonamide Antibiotics), amoxicillin, cefadroxil, cephalexin, codeine, diflunisal, duloxetine, erythromycin base, hydrocortisone, levofloxacin, meloxicam, morphine, nitrofurantoin, omeprazole, pantoprazole, phenylephrine, prednisolone, salicylates, tetracycline MEDICATION/IV/DRIP/FLUI D ORDERS Order Description Priority Entered Acknowledged Completed LAB ORDERS Order Description Priority Entered Acknowledged Collected Completed Flu Swab (Influenzae Stat 15:30 08/11/2024 15:39 08/11/2024 AAg) Stat Anh Villa R.N. Rapid COVID (SARS) Stat 15:30 08/11/2024 15:39 08/11/2024 ANTIGEN TEST Stat Anh Villa R.N. CBC w Diff Stat Stat 15:30 08/11/2024 15:39 08/11/2024 Anh Villa R.N. CMP Stat Stat 15:30 08/11/2024 15:39 08/11/2024 Anh Villa, 1 of 2 Order Sheet Marcial Urinalysis Stat Stat 15:30 08/11/2024 15:39 08/11/2024 Anh Villa R.N. CRP Stat Stat 15:30 08/11/2024 15:39 08/11/2024 Anh Villa R.N. DIAGNOSTIC STUDY ORDERS Order Description Priority Entered Acknowledged Completed STAFF ORDERS Order Description Priority Entered Acknowledged Collected Completed [Electronically signed by Dawit Thornton M.D. (08/19/2024 07:09 EST)] 2 of 2 Normal [facility] ED PHYSICIAN CLINICAL REPORT on 08-19-2024 ED PHYSICIAN CLINICAL REPORT Narrative Physician Clinical Narrative [address] [address] [id number] 08/11/2024 Patient: TERRI VILLAR Sex: Female : 1955 Age: 69y Disposition: Discharge to Home Disposition Decision Time: 17:10 08/11/2024 Departure Time: 17:19 08/11/2024 Measurements Wt: 56.7 kg, Ht/Jong: 64.0 in, BMI: 21.46 Initial Vital Sign Measured Time BP MAP HR RR O2Sat ETCO2 Temp Pain GCS RTS 14:33 08/11/2024 163/92 116 89 18 98% 97.9 F 0 Time Seen: 15:23 08/11/2024. Arrived- By private vehicle. Historian- patient. HISTORY OF PRESENT ILLNESS Chief Complaint: NAUSEA. No recent travel. The patient has had nausea. No vomiting, diarrhea, black stools, bloody stools or abdominal pain. No constipation, flank pain, history of possible bad food exposure or known contact with a sick individual. Has not recently been camping or on antibiotics. Last bowel movement- yesterday. This started last night and is still present. The illness is described as mild. (Also complains of headache since last night.). Similar symptoms previously. None. 1 of 14 Narrative REVIEW OF SYSTEMS NEUROLOGICAL: The patient has had a headache. No dizziness. CONSTITUTIONAL: No fever or muscle aches. THROAT: No sore throat. All other systems reviewed and are negative. PAST HISTORY See nurses notes. Chronic anxiety Chronic kidney disease stage 3 Chronic osteoarthritis Dysuria Gallstone(s) Gastroesophageal Reflux Hypertension Intervertebral Disc Disease Osteoporosis Pulmonary Nodule Thyroid nodule Surgeries: Medications: atorvastatin 10 mg tablet: 1 tablet once a day . doxycycline hyclate 100 mg tablet: 1 tablet twice a day . famotidine 20 mg tablet: 1 tablet once a day . fluticasone propionate 50 mcg/actuation nasal spray,suspension: 1 spray once a day . lansoprazole 15 mg capsule,delayed release: 1 capsule once a day . lisinopril 40 mg tablet: 1 tablet once a day . sucralfate 1 gram tablet: 1 tablet three times a day . tizanidine 4 mg tablet: 1 tablet . Allergies: amoxicillin cefadroxil cephalexin 2 of 14 Narrative codeine diflunisal duloxetine erythromycin base hydrocortisone Influenza Virus Vaccines Iodinated Diagnostic Agents levofloxacin meloxicam morphine nitrofurantoin omeprazole pantoprazole Penicillins phenylephrine prednisolone salicylates Sulfa (Sulfonamide Antibiotics) tetracycline SOCIAL HISTORY Does not use tobacco. No alcohol use. Resides in a house. Marital status: . ADDITIONAL NOTES The nursing notes have been reviewed. PHYSICAL EXAM Vital Signs: Have been reviewed. Appearance: Alert. Oriented X3. No acute distress. Eyes: Pupils equal, round and reactive to light. Eyes normal inspection. ENT: Abnormal ear exam. Right Ear: there is wax partially occluding the external canal. Left Ear: there is wax partially occluding the external canal. Nose normal. Pharynx normal. (wears dentures). Neck: Abnormal inspection. Neck supple. CVS: Normal heart rate. Heart sounds normal. Pulses normal. Respiratory: No respiratory distress. Painless inspiration. Breath sounds normal. Abdomen: Soft and nontender. Bowel sounds normal. No mass. 3 of 14 Narrative Back: Normal inspection. Skin: Skin warm and dry. Normal skin color. No rash. Neuro: Oriented X 3. LABS, X-RAYS, AND EKG Laboratory Tests: C-REACTIVE PROTEIN Final IVAN: 08/11/2024 15:50:00 EST MsgRcvd: 08/11/2024 16:34 EST Lab Test Result Reference Status Received Comments 08/11/2024 16:34 CRP <0.50 mg/dl 0.00 - 0.90 Final EST CBC + DIFF Final IVAN: 08/11/2024 15:50:00 EST MsgRcvd: 08/11/2024 16:09 EST Lab Test Result Reference Status Received Comments 08/11/2024 16:09 CBC-COMPLETE CBC + DIFF Final EST BLOOD COUNT 4.1 x 10/UL 08/11/2024 16:09 WBC 4.5 - 10.8 Final Below low normal EST 08/11/2024 16:09 RBC 4.47 x 10/UL 4.10 - 5.30 Final EST 08/11/2024 16:09 HEMOGLOBIN 14.4 g/dl 12.0 - 16.0 Final EST 08/11/2024 16:09 HEMATOCRIT 43.4 % 34.0 - 46.0 Final EST 08/11/2024 16:09 MCV 97 fl 80 - 99 Final EST 4 of 14 Narrative 08/11/2024 16:09 MCH 32 pg 27 - 33 Final EST 08/11/2024 16:09 MCHC 33 X10 3 32 - 36 Final EST 08/11/2024 16:09 RDW/CV 13.0 % 12.0 - 15.6 Final EST 08/11/2024 16:09 PLATELET 225 x10/UL 150 - 450 Final EST 08/11/2024 16:09 AUTOMATED MPV 8.7 fl 6.6 - 10.5 Final EST DIFFERENTIAL 08/11/2024 16:09 NEUT % 47.1 % 46.0 - 76.0 Final EST 08/11/2024 16:09 LYMPH % 42.5 % 20.0 - 45.0 Final EST 08/11/2024 16:09 MONOS % 8.1 % 0.0 - 10.0 Final EST 08/11/2024 16:09 EO % 2.2 % 0.0 - 7.0 Final EST 08/11/2024 16:09 BASO % 0.1 % 0.0 - 2.0 Final EST 08/11/2024 16:09 Lymph (more content not included)... Normal [facility] ED SUPER BILLon 08[facility]19-[facility] [place] [address] [facility] [place] [address] [phone] 08/11/2024 Patient: TERRI VILLAR Sex: Female : 1955 Age: 69y Item Professional Category Description Facility Code Code Quantity Fee Total Nurse/E/M EMERGENCY 428258 1 $0.00 $0.00 DEPARTMENT VISIT LIMITED/MINOR PROB (42656) Grand Total $0.00 Providers Dawit Thornton M.D. Chief Complaint NAUSEA. Principal Diagnosis Irritable bowel syndrome (with nausea). ICD-10 Codes K58.9: Irritable bowel syndrome without diarrhea 1 of 1 [facility] ED VISIT SUMMARYon ED VISIT SUMMARY Visit Overview Visit Overview [address] [place] [address] [id number] 08/11/2024 Patient: TERRI VILLAR Sex: Female : 1955 Age: 69y 08/19/2024 07:09 AM EST ED Arrival:14:26 08/11/2024 EST Status: Recent Travel:no Language:eng Adv Directive: Isolation Status: Ethnicity:N Fall Risk:no risk Infectious Disease Exposure:no Measurements:5'4 / 162.6 Self-Harm Status:risk Sepsis Screen:negative cm 125.0 lb / 56.7 kg Chief Complaint:NAUSEA, (Dr De Luna), and (Nausea and headache that started today) ALLERGIES amoxicillin cefadroxil cephalexin codeine diflunisal duloxetine erythromycin base hydrocortisone Influenza Virus Vaccines 1 of 4 Visit Overview Iodinated Diagnostic Agents levofloxacin meloxicam morphine nitrofurantoin omeprazole pantoprazole Penicillins phenylephrine prednisolone salicylates Sulfa (Sulfonamide Antibiotics) tetracycline HOME MEDICATIONS atorvastatin 10 mg tablet: 1 tablet once a day . doxycycline hyclate 100 mg tablet: 1 tablet twice a day . famotidine 20 mg tablet: 1 tablet once a day . fluticasone propionate 50 mcg/actuation nasal spray,suspension: 1 spray once a day . lansoprazole 15 mg capsule,delayed release: 1 capsule once a day . lisinopril 40 mg tablet: 1 tablet once a day . sucralfate 1 gram tablet: 1 tablet three times a day . tizanidine 4 mg tablet: 1 tablet . PAST MEDICAL HISTORY / PROBLEMS Chronic anxiety Chronic kidney disease stage 3 Chronic osteoarthritis Dysuria Gallstone(s) Gastroesophageal Reflux Hypertension Intervertebral Disc Disease Osteoporosis Pulmonary Nodule See nurses notes 2 of 4 Visit Overview Thyroid nodule PAST SURGICAL HISTORY SOCIAL HISTORY Nutritional assessment: No deficits Functional assessment: No impairments Learning needs: No barriers Smoking status: No Alcohol use: No Drug use: No ED COURSE MEDICATIONS GIVEN IN EMERGENCY DEPARTMENT IV SITE INFORMATION INTAKE OUTPUT REASSESMENT (most recent) 15:49 08/11/24. ( Patient complains of one day hx of nausea and headache.). GENERAL / NEURO / PSYCH: Alert. Oriented X 4. Appears in no acute distress. HEENT: Mucous membranes are pink. RESPIRATORY: Respirations not labored. Breath sounds within normal limits. CVS: Normal sinus rhythm noted. Capillary refill less than 2 seconds. GI / : The patient has had nausea. Abdomen soft and nontender. Bowel sounds within normal limits. SKIN: Skin is warm and dry. VITAL SIGNS First Vitals Last Vitals Temp 14:33 08/11/24 97.9 F Temp 14:33 08/11/24 97.9 F BP 14:33 08/11/24 163/92 BP 14:33 08/11/24 163/92 HR 14:33 08/11/24 89 HR 14:33 08/11/24 89 RR 14:33 08/11/24 18 RR 14:33 08/11/24 18 3 of 4 Visit Overview First Vitals Last Vitals O2 Sat 14:33 08/11/24 98% O2 Sat 14:33 08/11/24 98% Pain 14:33 08/11/24 0 Pain 14:33 08/11/24 0 ETCO2 14:33 08/11/24 ETCO2 14:33 08/11/24 GCS 14:33 08/11/24 GCS 14:33 08/11/24 RTS 14:33 08/11/24 RTS 14:33 08/11/24 PROCEDURES NURSING INTERVENTIONS LABS / STUDIES LABS / STUDIES ORDERED CBC w Diff CMP CRP Flu Swab (Influenzae AAg) Rapid COVID (SARS) ANTIGEN TEST Urinalysis CLINICAL IMPRESSION IRRITABLE BOWEL SYNDROME (WITH NAUSEA) 4 of 4 Normal [facility] ED VITALS FLOW SHEETon 08-19 ED VITALS FLOW SHEET Vitals Vital Sign Flow Sheet [address] [address] [id number] 08/11/2024 Patient: TERRI VILLAR Sex: Female : 1955 Age: 69y Measurements Wt: 56.7 kg, Ht/Jong: 64.0 in, BMI: 21.46 Measured Time BP MAP HR RR O2Sat ETCO2 Temp Pain GCS RTS 14:33 08/11/2024 163/92 116 89 18 98% 97.9 F 0 1 of 1 Normal [facility] C-REACTIVE PROTEINon 024 CRP [Mass/Vol] mg/L Normal 0.00 - 0.90 [facility] Comment on above: Performed By: #### 2 [id number] ####[facility],[address] [place] [address] CBC + DIFFon 08-11-2024 Baso # 0.01 x10EE3/UL Normal 0.00 - 0.10 [facility] Comment on above: Performed By: #### 2 09532 #### [facility],[address] [place] [address]873 Basophils/100 WBC (Bld) 0.1 % Normal 0.0 - 2.0 [facility] Comment on above: Performed By: #### 2 78732 #### [facility],[address] [place] [address]67 CBC + DIFF Normal [facility] Comment on above: Result Comment: CBC- COMPLETE BLOOD COUNT Performed By: #### 2 26819 #### [facility],[address] [place] [address] 25040 EO # 0.09 x10EE3/UL Normal 0.00 - 0.50 [facility] Comment on above: Performed By: #### 2 33763 #### [facility],[address] [place] [address] Eosinophils/100 WBC (Bld) 2.2 % Normal 0.0 - 7.0 [facility] Comment on above: Performed By: #### 2 76636 #### [facility],[address] [place] [address] Erythrocyte distribution width (RBC) [Ratio] 13.0 % Normal 12.0 - 15.6 [facility] Comment on above: Performed By: #### 2 75171 #### [facility],[address] [place] [address] Hematocrit (Bld) [Volume fraction] 43.4 % Normal 34.0 - 46.0 [facility] Comment on above: Performed By: #### 2 19577 #### [facility],[address] [place] [address] Hemoglobin (Bld) [Mass/Vol] 14.4 g/dL Normal 12.0 - 16.0 [facility] Comment on above: Performed By: #### 2 32657 #### [facility],[address] [place] [address] Lymph # 1.74 x10EE3/UL Normal 0.80 - 2.80 [facility] Comment on above: Performed By: #### 2 97571 #### [facility],[address] [place] [address] 47918 Lymphocytes/100 WBC (Bld) 42.5 % Normal 20.0 - 45.0 [facility] Comment on above: Performed By: #### 2 20705 #### [facility],[address] [place] [address] 79863 MANUAL DIFF N/A Normal [facility] Comment on above: Performed By: #### 2 22282 #### [facility],[address] [place] [address] 35543 MCH (RBC) [Entitic mass] 32 pg Normal 27 - 33 [facility] Comment on above: Performed By: #### 2 63737 #### [facility],[address] [place] [address]15[address] MCHC 33 X10 3 Normal 32 - 36 [facility] Comment on above: Performed By: #### 2 73528 #### [facility],[address] [place] [address] 77441 MCV (RBC) [Entitic vol] 97 fL Normal 80 - 99 [facility] Comment on above: Performed By: #### 2 13057 #### [facility],[address] [place] [address] 24407 Hodgeman # 0.33 x10EE3/UL Normal 0.20 - 1.00 [facility] Comment on above: Performed By: #### 2 66895 #### [facility],[address] [place] [address] 15940 MONOS % 8.1 % Normal 0.0 - 10.0 [facility] Comment on above: Performed By: #### 2 58034 #### [facility],[address] [place] [address] 18574 Morphology Alex (Bld) [Interp] N/A Normal [facility] Comment on above: Performed By: #### 2 57755 #### [facility],[address] [place] [address] 40501 Neut # 1.93 x10EE3/UL Normal 1.50 - 7.10 [facility] Comment on above: Performed By: #### 2 58432 #### [facility],[address] [place] [address] 19631 Neutrophils/100 WBC (Bld) 47.1 % Normal 46.0 - 76.0 [facility] Comment on above: Performed By: #### 2 87520 #### [facility],[address] [place] [address] 41751 PLATELET 225 x10EE3/UL Normal 150 - 450 [facility] Comment on above: Performed By: #### 2 30921 #### [facility],[address] [place] [address] 63750 Platelet mean volume (Bld) [Entitic vol] 8.7 fL Normal 6.6 - 10.5 [facility] Comment on above: Result Comment: AUTO MATED DIFFERENTIAL Performed By: #### 2 60673 #### [facility],[address] [place] [address] 67728 RBC 4.47 x 10EE6/UL Normal 4.10 - 5.30 [facility] Comment on above: Performed By: #### 2 71021 #### [facility],[address] [place] [address] 08329 WBC 4.1 x 10EE3/UL Low 4.5 - 10.8 [facility] Comment on above: Performed By: #### 2 10717 #### [facility],[address] [place], [place] [id number] CMP with eGFRon 08-11-2024 AGE 69 years Normal [facility] Comment on above: Performed By: #### 2 15940 #### [facility],[address] [place] [address] 74077 Albumin [Mass/Vol] 3.7 g/dL Normal 3.4 - 5.0 [facility] Comment on above: Performed By: #### 2 79647 #### [facility],[address] [place] [address] 12054 Albumin/Globulin [Mass ratio] 1.0 {ratio} Normal 0.9 - 1.6 [facility] Comment on above: Performed By: #### 2 52470 #### [facility],[address] [place] [address] 97388 ALK PHOS 96 U/L Normal 46 - 116 [facility] Comment on above: Performed By: #### 2 37009 #### [facility],[address] [place] [address] 28512 ALT [Catalytic activity/Vol] 24 U/L Normal 16 - 63 [facility] Comment on above: Performed By: #### 2 30206 #### [facility],[address] [place] [address] 46072 Anion gap [Moles/Vol] 11 mmol/L Normal 10 - 20 [facility] Comment on above: Performed By: #### 2 41383 #### [facility],[address] [place] [address] 30475 AST [Catalytic activity/Vol] 20 U/L Normal 13 - 39 [facility] Comment on above: Performed By: #### 2 52667 #### [facility],[address] [place] [address] 38732 B/C RATIO 10 ratio Normal 0 - 30 [facility] Comment on above: Performed By: #### 2 75679 #### [facility],[address] [place] [address] 49910 Bilirubin [Mass/Vol] 0.7 mg/dL Normal 0.2 - 1.0 [facility] Comment on above: Performed By: #### 2 27919 #### [facility],[address] [place] [address] 07010 Calcium [Mass/Vol] 9.6 mg/dL Normal 8.5 - 10.1 [facility] Comment on above: Performed By: #### 2 06966 #### [facility],[address] [place] [address] 58803 Chloride [Moles/Vol] 105 mmol/L Normal 98 - 107 [facility] Comment on above: Performed By: #### 2 38205 #### [facility],[address] [place] [address] 10835 CMP with eGFR Normal [facility] Comment on above: Result Comment: COMP REHENSIVE METABOLIC PANEL Performed By: #### 2 73045 #### [facility],[address] [place] [address] 31918 CO2 [Moles/Vol] 31.2 mmol/L Normal 21.0 - 32.0 [facility] Comment on above: Performed By: #### 2 70744 #### [facility],[address] [place] [address] 05211 Creatinine [Mass/Vol] 1.02 mg/dL Normal 0.55 - 1.02 [facility] Comment on above: Performed By: #### 2 06312 #### [facility],[address] [place] [address] 72300 eGFR 53 ML/MINUTE Low 60 - 999 [facility] Comment on above: Performed By: #### 2 97156 #### [facility],[address] [place] [address] 94801 GFR/1.73 sq M.predicted among non-blacks MDRD (S/P/Bld) [Vol rate/Area] mL/min/{1.73_m2} Normal 60 - 999 [facility] Comment on above: Result Comment: ACCO RDING TO THE NATIONAL KIDNEY DISEASE EDUCATION PROGRAM(NKDE), A NORMAL eGFR IS A VALUE GREATER THAN OR EQUAL TO 60 ML/MIN/1.73 SQ METERS. CHRONIC KIDNEY DISEASE: <60mL/MIN/1.73 SQ METERS KIDNEY FAILURE: <15mL/MIN/1.73 SQ METERS THIS TEST SHOULD ONLY BE USED FOR PATIENTS 18 YEARS OF AGE AND OLDER. Performed By: #### 2 17791 #### [facility],[address] [place] [address] 55134 Globulin (S) [Mass/Vol] 3.6 g/dL Normal 1.5 - 3.8 [facility] Comment on above: Performed By: #### 2 40107 #### [facility],[address] [place] [address] 71853 Glucose [Mass/Vol] 95 mg/dL Normal 74 - 106 [facility] Comment on above: Performed By: #### 2 14990 #### [facility],[address] [place] [address] 54209 Potassium [Moles/Vol] 4.4 mmol/L Normal 3.5 - 5.1 [facility] Comment on above: Performed By: #### 2 36641 #### [facility],[address] [place] [address] Protein [Mass/Vol] 7.3 g/dL Normal 6.4 - 8.2 [facility] Comment on above: Performed By: #### 2 62885 #### [facility],[address] [place] [address] Sodium [Moles/Vol] 143 mmol/L Normal 136 - 145 [facility] Comment on above: Performed By: #### 2 73555 #### [place] [address] Urea nitrogen [Mass/Vol] 10 mg/dL Normal 7 - 18 [facility] Comment on above: Performed By: #### 2 22708 #### [place] [address] CORONAVIRUS (SARS) ANTIGEN T ESTon 08-11-2024 EXTERNAL QC DONE? YES Normal [facility] Comment on above: Performed By: #### 2 06212 #### [facility],[address] [place] [address] INTERNAL CONTROL PASS Normal [facility] Comment on above: Performed By: #### 2 35088 #### [place] [address] SARS ANTIGEN Negative Normal NORMAL: NEGATIVE [facility] Comment on above: Performed By: #### 2 48960 #### [place] [address] SEND TO ? YES Normal [facility] Comment on above: Result Comment: SARS -CoV-2 THIS TEST IS BEING USED UNDER THE FDA EUA PROCEDURE. THIS ASSAY HAS BEEN VALIDATED AT [facility] FOR USE WITH NASAL AND NASOPHARYNGEAL SWAB SPECIMENS. INTERPRETIVE DATA TEST RESULTS SHOULD ALWAYS BE CONSIDERED IN THE CONTEXT OF CLINICAL OBSERVATIONS AND EPIDEMIOLOGICAL DATA IN MAKING FINAL DIAGNOSIS AND PATIENT MANAGEMENT DECISIONS. PATIENT MANAGEMENT SHOULD FOLLOW CURRENT CDC GUIDELINES. THE SOCO SARS ANTIGEN JOSH DOES NOT DIFFERENTIATE BETWEEN SARS-CoV & SARS-CoV-2. A POSITIVE TEST RESULT INDICATES THE PRESENCE OF SARS-CoV-2 NUCLEOCAPSID PROTEIN ANTIGEN, AND THE PATIENT IS INFECTED WITH THE VIRUS AND PRESUMED TO BE CONTAGIOUS. A NEGATIVE TEST RESULT FOR THIS TEST MEANS THAT SARS-CoV-2 NUCLEOCAPSID PROTEIN ANTIGEN WAS NOT PRESENT IN THE SPECIMEN ABOVE THE LIMIT OF DETECTION. HOWEVER, A NEGATIVE RESULT DOES NOT RULE OUT COVID-19 AND SHOULD NOT BE USED THE SOLE BASIS FOR TREATMENT OR PATIENT MANAGEMENT DECISIONS. A NEGATIVE RESULT DOES NOT EXCLUDE THE POSSIBILITY OF COVID-19. NEGATIVE RESULTS, FROM PATIENTS WITH SYMPTOM ONSET BEYOND FIVE DAYS, SHOULD BE TREATED PRESUMPTIVE AND CONFIRMATION WITH A MOLECULAR ASSAY, IF NECESSARY, FOR PATIENT MANAGEMENT, MAY BE PERFORMED. WHEN DIAGNOSTIC TESTING IS NEGATIVE, THE POSSIBLILTY OF A FALSE NEGATIVE RESULT SHOULD BE CONSIDERED IN THE CONTEXT OF A PATIENT'S RECENT EXPOSURES AND THE PRESENCE OF CLINICAL SIGNS AND SYMPTOMS CONSISTENT WITH COVID-19. THE POSSIBILITY OF A FALSE NEGATIVE RESULT SHOULD ESPECIALLY BE CONSIDERED IF THE PATIENT'S RECENT EXPOSURES OR CLINICAL PRESENTATION INDICATE THAT COVID-19 IS LIKELY, AND DIAGNOSTIC TESTS FOR OTHER CAUSES OF ILLNESS (e.g., OTHER RESPIRATORY ILLNESS) ARE NEGATIVE. IF COVID-19 IS STILL SUSPECTED BASED ON EXPOSURE HISTORY TOGETHER WITH OTHER CLINICAL FINDINGS, RE-TESTING SHOULD BE CONSIDERED BY HEALTHCARE PROVIDERS IN CONSULTATION WITH PUBLIC HEALTH AUTHORITIES. Performed By: #### 2 [id number] #### [facility],[address] [place] [address] 11500 INFLUENZA VIRUS RAPID A/Bon 08-11-2024 INFLUENZA VIRUS RAPID A/B INFLUENZA A NEGATIVE INFLUENZA B NEGATIVE INTERNAL NEG QC PASS INTERNAL POS QC PASS EXTERNAL QC DONE? YES SEND TO IC? YES A NEGATIVE TEST RESULT DOES NOT EXCLUDE INFECTION WITH INFLUENZA A OR B. THEREFORE, THE RESULTS OBTAINED FROM THIS FLU TEST SHOULD BE USED IN CONJUCTION WITH CLINICAL FINDINGS TO MAKE AN ACCURATE DIAGNOSIS. A POSITIVE RESULT DOES NOT RULE OUT CO-INFECTIONS WITH OTHER PATHOGENS OR IDENTIFY ANY SPECIFIC INFLUENZA A VIRUS SUBTYPE.CO-INFECTION WITH INFLUENZA A AND B IS RARE. IT IS RECOMMENDED THAT DUAL POSITIVE RESULTS BE CONFIRMED BY VIRAL CULTURE OR AN FDA-CLEARED INFLUENZA A AND B MOLECULAR ASSAY. INDIVIDUALS WHO HAVE RECEIVED NASALLY ADMINISTERED INFLUENZA A VACCINE MAY TEST POSITIVE IN COMMERCIALLY AVAILABLE INFLUENZA RAPID DIAGNOSTIC TESTS FOR UP TO THREE DAYS. RESULT CRITICAL? NO Normal [facility] Comment on above: Performed By: #### 2 [id number] ####[facility],[address] [place] [address] ED FACILITY CODING SUMMARYon 07-24-2024 ED FACILITY CODING SUMMARY Facility Coding Facility Coding Summary [address] [address] [id number] 07/19/2024 Patient: TERRI VILLAR Sex: Female : 1955 Age: 69y Providers: Bridget Pérez D.O. DIAGNOSTIC WORKUP Chief Complaint DYSURIA. -- Bridget Pérez D.O. Principal Diagnosis Acute pelvic pain. -- Bridget Pérez D.O. Dysuria -- Bridget Pérez D.O. ICD-10 Codes R10.2: Pelvic and perineal pain R30.0: Dysuria PROCEDURES Procedures from Providers: Procedures from Nurses/Facility: SUPPLIES [facility] [address]89-21 1 of 2 Facility Coding This is a partial abstract of information documented in the full record. Jewel Cupping Machine Operator must use independent judgment in selecting codes. CPT copyright 2022 [employer]. All Rights Reserved. 2 of 2 [facility] ED MED ADMINISTRATION DETAIL on 07-24-2024 ED MED ADMINISTRATION DETAIL Time Broker Medication Administration Record [address] [address] [id number] 07/19/2024 Patient: TERRI VILLAR Sex: Female : 1955 Age: 69y MEASUREMENTS: Wt: 56.7 kg, Ht/Jong: 64.0 in, BMI: 21.46 ALLERGIES: Influenza Virus Vaccines, Iodinated Diagnostic Agents, Penicillins, Sulfa (Sulfonamide Antibiotics), amoxicillin, cefadroxil, cephalexin, codeine, diflunisal, duloxetine, erythromycin base, hydrocortisone, levofloxacin, meloxicam, morphine, nitrofurantoin, omeprazole, pantoprazole, phenylephrine, prednisolone, salicylates, tetracycline Medication Ordered Medication Administration Date/Time 1 of 1 Normal [facility] ED NURSES CLINICAL NOTEon ED NURSES CLINICAL NOTE Nurse Narrative Nurse Clinical Narrative [address] [place] [address] [id number] 07/19/2024 Patient: TERRI VILLAR Sex: Female : 1955 Age: 69y Disposition: Discharge Disposition Decision Time: 11:41 07/19/2024 Departure Time: 11:41 07/19/2024 TRIAGE Arrived by private vehicle. Historian: patient. Primary physician (Annamarie). Triage time: 10:09 07/19/2024. Acuity: LEVEL 3. Chief Complaint: PAINFUL URINATION, URGENCY and FREQUENCY. This started last night. Treatment SHOP ASSISTANT: None. SEPSIS SCREEN: NEGATIVE. SIRS criteria negative. -- 10:26 07/19/24 EDT Vicenta Combs R.N. 10:15 07/19/24. BP: 146/90 MAP: 100 mmHg. HR: 88 bpm. -- 10:27 07/19/24 EDT Vicenta Combs R.N. 10:15 07/19/24. Pain level now 7/10. Describes the pain as burning. -- 10:31 07/19/24 EDT Vicenta Combs R.N. 10:17 07/19/24. Temperature: 97 F (temporal). -- 11:02 07/19/24 EDT Vicenta Combs R.N. 10:17 07/19/24. HR: 90 bpm. O2 saturation: 90%. -- 10:27 07/19/24 EDT Vicenta Combs R.N. 10:35 07/19/24. RR: 18. -- 11:01 07/19/24 EDT Vicenta Combs R.N. Measurements: 10:15 07/19/24 Wt: 56.7 kg, Ht/Jong: 64.0 in, BMI: 21.46 -- 10:25 07/19/24 EDT Vicenta Combs R.N. 1 of 5 Nurse Narrative Medications: tizanidine 4 mg tablet: 1 tablet as needed. -- 10:59 07/19/24 EDT Vicenta Combs R.N. sucralfate 1 gram tablet: 1 tablet three times a day. -- 10:59 07/19/24 EDT Vicenta Combs R.N. lisinopril 40 mg tablet: 1 tablet once a day. -- 10:59 07/19/24 EDT Vicenta Combs R.N. lansoprazole 15 mg capsule,delayed release: 1 capsule once a day. -- 10:59 07/19/24 EDT Vicenta Combs R.N. fluticasone propionate 50 mcg/actuation nasal spray,suspension: 1 spray once a day. -- 10:59 07/19/24 EDT Vicenta Combs R.N. famotidine 20 mg tablet: 1 tablet once a day. -- 10:59 07/19/24 EDT Vicenta Combs R.N. doxycycline hyclate 100 mg tablet: 1 tablet twice a day. -- 10:59 07/19/24 EDT Vicenta Combs R.N. atorvastatin 10 mg tablet: 1 tablet once a day. -- 10:59 07/19/24 EDT Vicenta Combs R.N. Allergies: Penicillins -- 10:18 07/19/24 EDT Vicenta Combs R.N. Sulfa (Sulfonamide Antibiotics) -- 10:18 07/19/24 EDT Vicenta Combs R.N. erythromycin base -- 10:18 07/19/24 EDT Vicenta Combs R.N. codeine -- 10:18 07/19/24 EDT Vicenta Combs R.N. phenylephrine -- 10:19 07/19/24 EDT Vicenta Combs R.N. salicylates -- 10:19 07/19/24 EDT Vicenta Combs R.N. cefadroxil -- 10:19 07/19/24 EDT Vicenta Combs R.N. morphine -- 10:19 07/19/24 EDT Vicenta Combs R.N. cephalexin -- 10:19 07/19/24 EDT Vicenta Combs R.N. amoxicillin -- 10:19 07/19/24 EDT Vicenta Combs R.N. hydrocortisone -- 10:20 07/19/24 EDT Vicenta Combs, R.N. meloxicam -- 10:20 07/19/24 EDT Vicenta Combs R.N. duloxetine -- 10:20 07/19/24 EDT Vicenta Combs R.N. Iodinated Diagnostic Agents -- 10:20 07/19/24 EDT Vicenta Combs R.N. prednisolone -- 10:20 07/19/24 EDT Vicenta Combs R.N. nitrofurantoin -- 10:21 07/19/24 EDT Vicenta Combs R.N. levofloxacin -- 10:21 07/19/24 EDT Vicenta Combs R.N. Influenza Virus Vaccines -- 10:21 07/19/24 EDT Vicenta Combs R.N. omeprazole -- 10:21 07/19/24 EDT Vicenta Combs R.N. tetracycline -- 10:21 07/19/24 EDT Vicenta Combs R.N. diflunisal -- 10:22 07/19/24 EDT Vicenta Combs R.N. pantoprazole -- 10:22 07/19/24 EDT Vicenta Combs R.N. 2 of 5 Nurse Narrative Problems: Chronic osteoarthritis -- 10:22 07/19/24 EDT Vicenta Combs R.N. Hypertension -- 10:22 07/19/24 EDT Vicenta Combs R.N. Intervertebral Disc Disease -- 10:23 07/19/24 EDT Vicenta Combs R.N. Thyroid nodule -- 10:23 07/19/24 EDT Vicenta Combs R.N. Gastroesophageal Reflux -- 10:23 07/19/24 EDT Vicenta Combs R.N. Chronic anxiety -- 10:23 07/19/24 EDT Vicenta Combs R.N. Gallstone(s) -- 10:23 07/19/24 EDT Vicenta Combs R.N. Pulmonary Nodule -- 10:24 07/19/24 EDT Vicenta Combs R.N. Osteoporosis -- 10:24 07/19/24 EDT Vicenta Combs R.N. Chronic kidney disease stage 3 -- 10:24 07/19/24 EDT Vicenta Combs R.N. Dysuria -- 10:24 07/19/24 EDT Vicenta Combs R.N. 10:09 07/19/24. Preferred pharmacy: [facility]. -- 10:26 07/19/24 EDT Vicenta Combs R.N. ADDITIONAL SURGERIES: -- 10:24 07/19/24 EDT Vicenta Combs R.N. History 10:07/19/24. PAST MEDICAL HX: Immunizations: up-to-date. No menstrual periods. Denies current . SOCIAL HX: No alcohol use or drug use. The patient has not traveled outside the [place] Infectious disease exposure: No infectious disease exposure. ABUSE ASSESSMENT: No report of abuse. SELF HARM ASSESSMENT: Self harm assessment was performed. The patient answered no to the question(s) Have you recently felt down, depressed, or hopeless? and Do you have thoughts of harming or killing yourself?. NUTRITIONA (more content not included)... Normal [facility] ED ORDER SHEET (CPOE ONLY)on 07-24-2024 ED ORDER SHEET (CPOE ONLY) Order Sheet Order Sheet [facility] [address] [place] [address] [id number] 07/19/2024 Patient: TERRI VILLAR Sex: Female : 1955 Age: 69y MEASUREMENTS: Wt: 56.7 kg, Ht/Jong: 64.0 in, BMI: 21.46 ALLERGIES: Influenza Virus Vaccines, Iodinated Diagnostic Agents, Penicillins, Sulfa (Sulfonamide Antibiotics), amoxicillin, cefadroxil, cephalexin, codeine, diflunisal, duloxetine, erythromycin base, hydrocortisone, levofloxacin, meloxicam, morphine, nitrofurantoin, omeprazole, pantoprazole, phenylephrine, prednisolone, salicylates, tetracycline MEDICATION/IV/DRIP/FLUI D ORDERS Order Description Priority Entered Acknowledged Completed LAB ORDERS Order Description Priority Entered Acknowledged Collected Completed Urinalysis Stat Stat 10:12 07/19/2024 10:31 07/19/2024 10:31 07/19/2024 Vicenta Talavera Shelbie Murphy, D.O. R.N. R.N. Urine Culture [CCL] Stat Stat 11:26 07/19/2024 Bridget Pérez D.O. DIAGNOSTIC STUDY ORDERS Order Description Priority Entered Acknowledged Completed 1 of 2 Order Sheet STAFF ORDERS Order Description Priority Entered Acknowledged Collected Completed [Electronically signed by Bridget Pérez D.O. (07/19/2024 16:05 EDT)] 2 of 2 Normal [facility] ED PHYS CODING ABST SUMMARYo n 07-24-2024 ED PHYS CODING ABST SUMMARY Coding Summary Coding Summary [address] [address] [id number] 07/19/2024 Patient: TERRI VILLAR Sex: Female : 1955 Age: 69y ICD-10 Codes R10.2: Pelvic and perineal pain R30.0: Dysuria This is a partial abstract of information documented in the full record. Jewel Cupping Machine Operator must use independent judgment in selecting codes. CPT copyright 2022 [employer]. All Rights Reserved. 1 of 1 Normal [facility] ED PHYSICIAN CLINICAL REPORT on 07-24-2024 ED PHYSICIAN CLINICAL REPORT Narrative Physician Clinical Narrative [address] [address] [id number] 07/19/2024 Patient: TERRI VILLAR Sex: Female : 1955 Age: 69y Disposition: Discharge Disposition Decision Time: 11:41 07/19/2024 Departure Time: 11:41 07/19/2024 Measurements Wt: 56.7 kg, Ht/Jong: 64.0 in, BMI: 21.46 Initial Vital Sign Measured Time BP MAP HR RR O2Sat ETCO2 Temp Pain GCS RTS 10:15 07/19/2024 146/90 100 88 Time Seen: 10:02 07/19/2024. Arrived- By private vehicle. Historian- patient. HISTORY OF PRESENT ILLNESS Chief Complaint: DYSURIA. Still present. The symptoms are described as moderate. The patient has had pelvic pain and vaginal pain. The patient has had pain with urination, urinary frequency and urgency of urination. No hematuria. REVIEW OF SYSTEMS ENDO/HEME/LYMPH: No enlarged lymph nodes. SKIN: No skin rash. RESPIRATORY: No cough. EYES: No eye discomfort. CONSTITUTIONAL: No fever or anorexia. NEUROLOGICAL: No headache. GI: No nausea, vomiting or diarrhea. 1 of 6 Narrative PAST HISTORY Chronic anxiety Chronic kidney disease stage 3 Chronic osteoarthritis Dysuria Gallstone(s) Gastroesophageal Reflux Hypertension Intervertebral Disc Disease Osteoporosis Pulmonary Nodule Thyroid nodule Surgeries: Medications: atorvastatin 10 mg tablet: 1 tablet once a day. doxycycline hyclate 100 mg tablet: 1 tablet twice a day. famotidine 20 mg tablet: 1 tablet once a day. fluticasone propionate 50 mcg/actuation nasal spray,suspension: 1 spray once a day. lansoprazole 15 mg capsule,delayed release: 1 capsule once a day. lisinopril 40 mg tablet: 1 tablet once a day. sucralfate 1 gram tablet: 1 tablet three times a day. tizanidine 4 mg tablet: 1 tablet as needed. Allergies: amoxicillin cefadroxil cephalexin codeine diflunisal duloxetine erythromycin base hydrocortisone Influenza Virus Vaccines 2 of 6 Narrative Iodinated Diagnostic Agents levofloxacin meloxicam morphine nitrofurantoin omeprazole pantoprazole Penicillins phenylephrine prednisolone salicylates Sulfa (Sulfonamide Antibiotics) tetracycline SOCIAL HISTORY Former smoker. No alcohol use. ADDITIONAL NOTES The nursing notes have been reviewed. PHYSICAL EXAM Appearance: Alert. Oriented X3. No acute distress. HEENT: Normal external inspection. Neck: Neck supple. CVS: Heart sounds normal. Respiratory: No respiratory distress. Breath sounds normal. Chest nontender. Abdomen: Soft and nontender. Bowel sounds normal. Skin: Skin warm and dry. Normal skin color. Normal skin turgor. Extremities: Extremities nontender. Neuro: Oriented X 3. Mood/affect normal. No motor deficit. LABS, X-RAYS, AND EKG Laboratory Tests: 3 of 6 Narrative URINALYSIS Final IVAN: 07/19/2024 10:05:00 EDT MsgRcvd: 07/19/2024 10:48 EDT Lab Test Result Reference Status Received Comments 07/19/2024 10:48 URINALYSIS Final URINALYSIS EDT 07/19/2024 10:48 Specimen Type UNSPECIFIED Final EDT NORMAL: 07/19/2024 10:48 Color YELLOW Final YELLOW EDT NORMAL: 07/19/2024 10:48 Clarity CLEAR Final CLEAR EDT NORMAL: 07/19/2024 10:48 ph 8.0 Final 5.0-8.0 EDT NORMAL: 07/19/2024 10:48 Protein NEGATIVE Final NEGATIVE EDT NORMAL: 07/19/2024 10:48 Glucose NORM Final NORMAL EDT NORMAL: 07/19/2024 10:48 Ketone NEGATIVE Final NEGATIVE EDT NORMAL: 07/19/2024 10:48 Bilirubin NEGATIVE Final NEGATIVE EDT 10 NORMAL: 07/19/2024 10:48 Blood Final Abnormal NEGATIVE EDT NORMAL: 07/19/2024 10:48 Urobilinog NORMAL Final NORMAL EDT NORMAL: 07/19/2024 10:48 Sp [place] 1.015 Final 1.010-1.030 EDT 4 of 6 Narrative NORMAL: 07/19/2024 10:48 Nitrite NEGATIVE Final NEGATIVE EDT NORMAL: 07/19/2024 10:48 Leukocytes NEGATIVE Final NEGATIVE EDT 07/19/2024 10:48 Microscopic SEE BELOW Final MICROSCOPIC EDT 07/19/2024 10:48 Wbc NONE 0-5/hpf Final EDT 07/19/2024 10:48 Rbc NONE 0-3/hpf Final EDT 07/19/2024 10:48 Casts NONE Final EDT 07/19/2024 10:48 Crystals NONE Final EDT 07/19/2024 10:48 Amorphous NONE Final EDT 07/19/2024 10:48 Bacteria NONE Final EDT 07/19/2024 10:48 Epi Cells NONE Final EDT 07/19/2024 10:48 Mucous NONE Final EDT 07/19/2024 10:48 Yeast NONE Final EDT PROGRESS AND PROCEDURES MEDICAL DECISION MAKING: (patient came in complaining of pain when she urinated said history UTIs and thought this may be another urinary tract infection. Urine was unremarkable. We will culture her urine she has a little bit of blood. She should follow up with her family doctor Dr. De Luna take Tylenol Motrin for pain and she will 5 of 6 Narrative be discharged home.). Disposition (more content not included)... Normal [facility] ED [facility] BILL 07-24-2024 ED [facility] [address] [place] [place] [address] [id number] 07/19/2024 Patient: TERRI VILLAR Sex: Female : 1955 Age: 69y Item Professional Category Description Facility Code Code Quantity Fee Total Nurse/E/M EMERGENCY 861096 1 $0.00 $0.00 DEPARTMENT VISIT MODERATE SEVERITY (64051-08) Grand Total $0.00 Providers Bridget Pérez D.O. Chief Complaint DYSURIA. Principal Diagnosis Acute pelvic pain. Dysuria 1 of 2 Superbill ICD-10 Codes R10.2: Pelvic and perineal pain R30.0: Dysuria 2 of 2 Normal [facility] ED VISIT SUMMARYon ED VISIT SUMMARY Visit Overview Visit Overview [address] [address] [id number] 07/19/2024 Patient: TERRI VILLAR Sex: Female : 1955 Age: 69y 07/24/2024 10:35 AM EDT ED Arrival:10:06 07/19/2024 EDT Status:not Recent Travel:no Language:eng Adv Directive:No Isolation Status: Ethnicity:N Fall Risk:risk Infectious Disease Exposure:no Measurements:5'4 / 162.6 Self-Harm Status:no risk Sepsis Screen:negative cm 125.0 lb / 56.7 kg Chief Complaint:FREQUENCY, PAINFUL URINATION, URGENCY, and (Annamarie) ALLERGIES amoxicillin cefadroxil cephalexin codeine diflunisal duloxetine erythromycin base hydrocortisone Influenza Virus Vaccines 1 of 4 Visit Overview Iodinated Diagnostic Agents levofloxacin meloxicam morphine nitrofurantoin omeprazole pantoprazole Penicillins phenylephrine prednisolone salicylates Sulfa (Sulfonamide Antibiotics) tetracycline HOME MEDICATIONS atorvastatin 10 mg tablet: 1 tablet once a day. doxycycline hyclate 100 mg tablet: 1 tablet twice a day. famotidine 20 mg tablet: 1 tablet once a day. fluticasone propionate 50 mcg/actuation nasal spray,suspension: 1 spray once a day. lansoprazole 15 mg capsule,delayed release: 1 capsule once a day. lisinopril 40 mg tablet: 1 tablet once a day. sucralfate 1 gram tablet: 1 tablet three times a day. tizanidine 4 mg tablet: 1 tablet as needed. PAST MEDICAL HISTORY / PROBLEMS Chronic anxiety Chronic kidney disease stage 3 Chronic osteoarthritis Dysuria Gallstone(s) Gastroesophageal Reflux Hypertension Immunizations: up-to-date Intervertebral Disc Disease No menstrual periods Osteoporosis 2 of 4 Visit Overview Pulmonary Nodule Thyroid nodule PAST SURGICAL HISTORY SOCIAL HISTORY Nutritional assessment: No deficits Functional assessment: No impairments Learning needs: No barriers Smoking status: No Alcohol use: No Drug use: No ED COURSE MEDICATIONS GIVEN IN EMERGENCY DEPARTMENT IV SITE INFORMATION INTAKE OUTPUT REASSESMENT (most recent) 10:18 07/19/24. GENERAL / NEURO / PSYCH: Alert. Oriented X 4. Appears in no acute distress. HEENT: Mucous membranes are pink. RESPIRATORY: Respirations not labored. Breath sounds within normal limits. CVS: Capillary refill less than 2 seconds. GI / : Abdomen soft and nontender. Bowel sounds within normal limits. Pain with urination. The patient has had frequency of urination. Urgency of urination. No vaginal bleeding. No vaginal discharge. No genital lesions noted. SKIN: Skin is warm and dry. VITAL SIGNS First Vitals Last Vitals Temp 10:15 07/19/24 Temp 11:42 07/19/24 98.2 F BP 10:15 07/19/24 146/90 BP 11:42 07/19/24 128/81 3 of 4 Visit Overview First Vitals Last Vitals HR 10:15 07/19/24 88 HR 11:42 07/19/24 84 RR 10:15 07/19/24 RR 11:42 07/19/24 17 O2 Sat 10:15 07/19/24 O2 Sat 11:42 07/19/24 94% Pain 10:15 07/19/24 Pain 11:42 07/19/24 2 ETCO2 10:15 07/19/24 ETCO2 11:42 07/19/24 GCS 10:15 07/19/24 GCS 11:42 07/19/24 RTS 10:15 07/19/24 RTS 11:42 07/19/24 PROCEDURES NURSING INTERVENTIONS LABS / STUDIES LABS / STUDIES ORDERED Urinalysis Urine Culture [CCL] CLINICAL IMPRESSION ACUTE PELVIC PAIN DYSURIA 4 of 4 Normal [facility] URINE CULTURE [CCL]on 2023 Bacteria identified Cx Nom (U) URCUL See Results Below See Below CULTURE, URINE NORMAL UROGENITAL CANDY <10,000 CFU/ml Normal urogenital candy SOURCE: Urine (Nonspecific) [facility] [address] [place] [address] Jose Angel Garsia III, M.D. [id number] SEND TO NO Normal [facility] Comment on above: Performed By: #### 2 [id number] #### [facility],[address] [place] [address] URINALYSISon 07-19-2024 Amorphous NONE Normal [facility] Comment on above: Performed By: #### 2 [id number] #### [facility],[address] [place] [address] Bacteria NONE Normal [facility] Comment on above: Performed By: #### 2 [id number] #### [facility],[address] [place], [place] [phone] Bilirubin Ql (U) Negative Normal NORMAL: NEGATIVE [facility] Comment on above: Performed By: #### 2 [id number] #### [facility],[address] [place], [place] [phone] Casts NONE Normal [facility] Comment on above: Performed By: #### 2 75126 #### [facility],[address] [place] [address] Clarity (U) CLEAR Normal NORMAL: CLEAR [facility] Comment on above: Performed By: #### 2 25231 #### [facility],[address] [place], [place] [phone] Color (U) YELLOW Normal NORMAL: YELLOW [facility] Comment on above: Performed By: #### 2 69246 #### [facility],[address] [place], [place] [phone] Crystals LM Nom (Urine sed) NONE Normal [facility] Comment on above: Performed By: #### 2 [id number] #### [facility],[address] [place], [place] [id number] Epi Cells NONE Normal [facility] Comment on above: Performed By: #### 2 55309 #### [facility],[address] [place] [address] Glucose Ql (U) NORM Normal NORMAL: NORMAL [facility] Comment on above: Performed By: #### 2 [id number] #### [facility],[address] [place] [address] Hemoglobin Ql (U) 10 Abnormal NORMAL: NEGATIVE [facility] Comment on above: Performed By: #### 2 71570 #### [facility],[address] [place] [address] Ketone Negative Normal NORMAL: NEGATIVE [facility] Comment on above: Performed By: #### 2 80463 #### [facility],[address] [place] [address],[facility] [address] Leukocytes Negative Normal NORMAL: NEGATIVE [facility] Comment on above: Performed By: #### 2 [id number] #### [facility],[address] [place] [address] Mucous NONE Normal [facility] Comment on above: Performed By: #### 2 [id number] #### [facility],[address] [place] [address] Nitrite Ql (U) Negative Normal NORMAL: NEGATIVE [facility] Comment on above: Performed By: #### 2 [id number] #### [facility],[address] [place] [address] pH (U) 8.0 [pH] Normal NORMAL: 5.0-8.0 [facility] Comment on above: Performed By: #### 2 60826 #### [facility],[address] [place] [address] Protein Ql (U) Negative Normal NORMAL: NEGATIVE [facility] Comment on above: Performed By: #### 2 38997 #### [facility],[address] [place] [address] Rbc NONE Normal 0-3/hpf [facility] Comment on above: Performed By: #### 2 46802 #### [facility],[address] [place] [address] Sp [place] 1.015 Normal NORMAL: 1.010-1.030 [facility] Comment on above: Performed By: #### 2 13154 #### [facility],[address] [place] [address] Specimen Type UNSPECIFIED Normal [facility] Comment on above: Performed By: #### 2 06563 #### [facility],[address] [place] [address] Urinalysis dipstick W Reflex Microscopic panel (U) SEE BELOW Normal [facility] Comment on above: Result Comment: MICR OSCOPIC Performed By: #### 2 57296 #### [facility],[address] [place] [address] Urobilinog NORMAL Normal NORMAL: NORMAL [facility] Comment on above: Performed By: #### 2 47966 #### [facility],[address] [place] [address] Wbc NONE Normal 0-5/hpf [facility] Comment on above: Performed By: #### 2 60414 #### [facility],[address] [place], [place] [id number] Yeast NONE Normal [facility] Comment on above: Performed By: #### 2 03664 #### [facility],[address] [place] [address] XR Thoracic spine AP and Lat eral and Swimmerson 07-16-2024 IMPRESSION: No acute osseous abnormality Professor Of Criminal Justice: PSCLonnie Transcribe Date/Time: Jul 16 2024 11:20A Dictated by : SAADIA MARQUEZ MD This examination was interpreted and the report reviewed and electronically signed by: SAADIA MARQUEZ MD on Jul 16 2024 11:25AM [facility] DIVISION OF RADIOLOGY * * *Final Report* * * DATE OF EXAM: Jul 16 2024 11:18AM WOX [id number] - XR THORACIC 3V AP/LAT/SWIMMERS / PROCEDURE REASON: Acute thoracic back pain, unspecified back pain laterality * * * * Physician Interpretation * * * * EXAMINATION: XR THORACIC 3V AP/LAT/SWIMMERS CLINICAL HISTORY: Thoracic back pain Technique: XR THORACIC 3V AP/LAT/SWIMMERS -- NOT APPLICABLE with 3 views on 3 images Comparison: X-ray thoracic spine 09/11/2023 RESULT: No acute fracture or malalignment. Multiple small vertebral body osteophytes. DIVISION OF RADIOLOGY Provider, [facility] - 07/16/2024 * * *Final Report* * * DATE OF EXAM: Jul 16 2024 11:18AM WOX [id number] - XR THORACIC 3V AP/LAT/SWIMMERS / PROCEDURE REASON: Acute thoracic back pain, unspecified back pain laterality * * * * Physician Interpretation * * * * EXAMINATION: XR THORACIC 3V AP/LAT/SWIMMERS CLINICAL HISTORY: Thoracic back pain Technique: XR THORACIC 3V AP/LAT/SWIMMERS -- NOT APPLICABLE with 3 views on 3 images Comparison: X-ray thoracic spine 09/11/2023 RESULT: No acute fracture or malalignment. Multiple small vertebral body osteophytes. IMPRESSION IMPRESSION: No acute osseous abnormality Professor Of Criminal Justice: [facility] Transcribe Date/Time: Jul 16 2024 11:20A Dictated by : SAADIA MARQUEZ MD This examination was interpreted and the report reviewed and electronically signed by: SAADIA MARQUEZ MD on Jul 16 2024 11:25AM EST [facility] Radiology Study observation (narrative) [facility] XR Thoracic spine AP and Lat eral and SwimmersOrdered By: [facility] Provider on 07-16-2024 [facility] COVID & INFLUENZA A/B & RSV PCR, ROUTINEon 06-19-2024 FLUAV RNA ELMER+probe Ql (Unsp spec) Not detected Not Detected [facility] FLUBV RNA ELMER+probe Ql (Unsp spec) Not detected Not Detected [facility] Interpretation and review of laboratory results Normal [facility] RSV A RNA ELMER+probe Ql (Unsp spec) Not detected Not Detected [facility] SARS-CoV-2 (COVID-19) RNA ELMER+probe Ql (Unsp spec) Not detected See comment [facility] Reference Range (the expected result in uninfected individuals): Not detected [facility] CBC W Auto Differential pane l (Bld)on 06-11-2024 Basophils (Bld) [#/Vol] [facility] Basophils/100 WBC (Bld) 0.3 % [facility] Differential cell count method Nom (Bld) Auto [facility] Eosinophils (Bld) [#/Vol] 0.04 10*3/uL [facility] Eosinophils/100 WBC (Bld) 0.7 % [facility] Erythrocyte distribution width (RBC) [Ratio] 12.8 % 11.5 - 15.0 % [facility] [facility] Hematocrit (Bld) [Volume fraction] 45.1 % 36.0 - 46.0 % [facility] Hemoglobin (Bld) [Mass/Vol] 14.4 g/dL 11.5 - 15.5 g/dL [facility] Immature granulocytes (Bld) [#/Vol] [facility] Immature granulocytes/100 WBC (Bld) 0.2 % [facility] Lymphocytes (Bld) [#/Vol] 1.98 10*3/uL [facility] Lymphocytes/100 WBC (Bld) 33.7 % [facility] MCH (RBC) [Entitic mass] 31.3 pg 26.0 - 34.0 pg [facility] MCHC (RBC) [Mass/Vol] 31.9 g/dL 30.5 - 36.0 g/dL [facility] MCV (RBC) [Entitic vol] 98.0 fL 80.0 - 100.0 fL [facility] Monocytes (Bld) [#/Vol] 0.46 10*3/uL [facility] Monocytes/100 WBC (Bld) 7.8 % [facility] Neutrophils (Bld) [#/Vol] 3.36 10*3/uL [facility] Neutrophils/100 WBC (Bld) 57.3 % [facility] Nucleated RBC (Bld) [#/Vol] [facility] Nucleated RBC/100 WBC (Bld) [Ratio] 0.0 % /100 WBC [facility] Platelet mean volume (Bld) [Entitic vol] 11.1 fL 9.0 - 12.7 fL [facility] Platelets (Bld) [#/Vol] 226 10*3/uL [facility] RBC (Bld) [#/Vol] 4.60 10*6/uL 3.90 - 5.2 0 m/uL [facility] WBC (Bld) [#/Vol] 5.87 10*3/uL [facility] CT Abdomen and Pelvis WO con traston 05-31-2024 IMPRESSION: Stable 1.2 cm uncinate process pancreatic cyst, likely IPMN. Professor Of Criminal Justice: LASHAWN Transcribe Date/Time: May 31 2024 11:45A Dictated by : EVAN MORENO MD This examination was interpreted and the report reviewed and electronically signed by: EVAN MORENO MD on May 31 2024 11:57AM [facility] DIVISION OF RADIOLOGY * * *Final Report* * * DATE OF EXAM: May 31 2024 9:40AM [facility] 0531 - CT ABD/PEL WO IVCON / PROCEDURE REASON: Biliary cyst * * * * Physician Interpretation * * * * EXAMINATION: CT ABDOMEN AND PELVIS WITHOUT IV CONTRAST CLINICAL HISTORY: Surveillance imaging of pancreatic cyst. TECHNIQUE: Non-IV contrast imaging of the abdomen and pelvis was performed using standard technique, scanning from just above the dome of the diaphragm to the symphysis pubis. Unenhanced imaging is limited for the evaluation of some intra-abdominal and pelvic pathology. MQ: CTAPWO_3 Contrast: IV: None CT Radiation dose: Integrated Dose-length product (DLP) for this visit = 319 mGy*cm. CT Dose Reduction Employed: Automated exposure control(AEC) and iterative recon COMPARISON: 09/21/2023 and pancreas biliary iliac artery MR 12/01/2021 RESULT: Abdomen / Pelvis: Liver: No mass. Stable hepatic dome calcification. Biliary: Cholelithiasis within otherwise normal gallbladder. Spleen: No splenomegaly. Calcified granulomas. Pancreas: 1.2 cm uncinate process cystic (5:48), stable compared to the 12/01/2021 pancreas biliary MR. Smaller cyst shown on the prior MR are not identified by unenhanced CT technique. Pancreas is otherwise unremarkable. Adrenals: No mass. Kidneys: Renal sinus cysts present bilaterally. No cortical cyst. No calculus or hydronephrosis. GI Tract: Normal caliber small bowel. Rectum distended to 8 cm with stool.: Otherwise normal caliber. Normal appendix. Lymph Nodes: No lymphadenopathy. Mesentery/peritoneum: No ascites. Retroperitoneum: No mass. Vasculature: No abdominal aortic or iliac artery aneurysm. Pelvis: Uterus and adnexa are unremarkable. Bladder unremarkable. Bones/Soft Tissues: Osteopenia. Degenerative changes. Lower thorax: A chest CT performed will be reported separately. Localizer images: Unremarkable. DIVISION OF RADIOLOGY Provider, Rosmery Clifton [facility] - 05/31/2024 * * *Final Report* * * DATE OF EXAM: May 31 2024 9:40AM [facility] 0531 - CT ABD/PEL WO IVCON / PROCEDURE REASON: Biliary cyst * * * * Physician Interpretation * * * * EXAMINATION: CT ABDOMEN AND PELVIS WITHOUT IV CONTRAST CLINICAL HISTORY: Surveillance imaging of pancreatic cyst. TECHNIQUE: Non-IV contrast imaging of the abdomen and pelvis was performed using standard technique, scanning from just above the dome of the diaphragm to the symphysis pubis. Unenhanced imaging is limited for the evaluation of some intra-abdominal and pelvic pathology. MQ: CTAPWO_3 Contrast: IV: None CT Radiation dose: Integrated Dose-length product (DLP) for this visit = 319 mGy*cm. CT Dose Reduction Employed: Automated exposure control(AEC) and iterative recon COMPARISON: 09/21/2023 and pancreas biliary iliac artery MR 12/01/2021 RESULT: Abdomen / Pelvis: Liver: No mass. Stable hepatic dome calcification. Biliary: Cholelithiasis within otherwise normal gallbladder. Spleen: No splenomegaly. Calcified granulomas. Pancreas: 1.2 cm uncinate process cystic (5:48), stable compared to the 12/01/2021 pancreas biliary MR. Smaller cyst shown on the prior MR are not identified by unenhanced CT technique. Pancreas is otherwise unremarkable. Adrenals: No mass. Kidneys: Renal sinus cysts present bilaterally. No cortical cyst. No calculus or hydronephrosis. GI Tract: Normal caliber small bowel. Rectum distended to 8 cm with stool.: Otherwise normal caliber. Normal appendix. Lymph Nodes: No lymphadenopathy. Mesentery/peritoneum: No ascites. Retroperitoneum: No mass. Vasculature: No abdominal aortic or iliac artery aneurysm. Pelvis: Uterus and adnexa are unremarkable. Bladder unremarkable. Bones/Soft Tissues: Osteopenia. Degenerative changes. Lower thorax: A chest CT performed will be reported separately. Localizer images: Unremarkable. IMPRESSION IMPRESSION: Stable 1.2 cm uncinate process pancreatic cyst, likely IPMN. Professor Of Criminal Justice: PSCB Transcribe Date/Time: May 31 2024 11:45A Dictated by : EVAN MORENO MD This examination was interpreted and the report reviewed and electronically signed by: EVAN MORENO MD on May 31 2024 11:57AM EST [facility] Radiology Study observation (narrative) [facility] CT Abdomen and Pelvis WO con trastOrdered By: [facility] Provider on 05-31-2024 [facility] 2019 Novel Coronavirus (CoVI D-19), NAAon 05-27-2024 SARS-CoV-2 (COVID-19) RNA ELMER+probe Ql (Unsp spec) Not detected Normal Not Detected [facility] Comment on above: Result Comment: This nucleic acid amplification test was developed and its performance characteristics determined by [employer]. Nucleic acid amplification tests include RT-PCR and TMA. This test has not been FDA cleared or approved. This test has been authorized by FDA under an Emergency Use Authorization (EUA). This test is only authorized for the duration of time the declaration that circumstances exist justifying the authorization of the emergency use of in vitro diagnostic tests for detection of SARS-CoV-2 virus and/or diagnosis of COVID-19 infection under section 564(b)(1) of the Act, 21 U.S.C. 360bbb-3(b) (1), unless the authorization is terminated or revoked sooner. When diagnostic testing is negative, the possibility of a false negative result should be considered in the context of a patient's recent exposures and the presence of clinical signs and symptoms consistent with COVID-19. An individual without symptoms of COVID-19 and who is not shedding SARS-CoV-2 virus would expect to have a negative (not detected) result in this assay. Performed at: [address] [id number] Box Liner: Quin Alonzo MD, Phone: [phone] Performed By: #### L COV #### [address] [address] XR Abdomen Supine and Uprigh ton 05-23-2024 IMPRESSION: Nonobstructive intestinal gas pattern. Professor Of Criminal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 OLDER. Performed By: #### 2 48792 #### [facility],[address] [place], [place] [id number] Globulin (S) [Mass/Vol] 3.7 g/dL Normal 1.5 - 3.8 [facility] Comment on above: Performed By: #### 2 73732 #### [facility],[address] [place], [place] [address] Glucose [Mass/Vol] 103 mg/dL Normal 74 - 106 [facility] Comment on above: Performed By: #### 2 06304 #### [facility],[address] [place] [address] 11656 Potassium [Moles/Vol] 4.0 mmol/L Normal 3.5 - 5.1 [facility] Comment on above: Performed By: #### 2 01265 #### [facility],[address] [place] [address] 82060 Protein [Mass/Vol] 7.0 g/dL Normal 6.4 - 8.2 [facility] Comment on above: Performed By: #### 2 87935 #### [facility],[address] [place] [address] 66240 Sodium [Moles/Vol] 143 mmol/L Normal 136 - 145 [facility] Comment on above: Performed By: #### 2 99188 #### [facility],[address] [place] [address] 48284 Urea nitrogen [Mass/Vol] 14 mg/dL Normal 7 - 18 [facility] Comment on above: Performed By: #### 2 91668 #### [facility],[address] [place] [address] ABDOMEN/PELVIS [facility] 12-19 CT ABDOMEN/PELVIS [address] [address] Patient: ARDIENNEANGELATERRI Saravia Phone#: : 1955 Age: 68 Gender: F Pt. Type: ER Account: [id number] Location: [facility] Ordering: LAYO CARLTON Exam Date: 12/20/2023/6:44 Family Phys: BRIDGET DE LUNA Charge Code: 954261 Physician: Lajas Order #: [id number] Dose#: [id number] PROCEDURE: CT ABDOMEN/PELVIS WITHOUT CONTRAST COMPARISON: [facility], CT, ABDOMEN/PELVIS W/O CON, 06/16/2023, 12:36. INDICATIONS: Abdominal pain. TECHNIQUE: CT images were created without intravenous contrast. All CT scans at this facility use dose modulation, iterative reconstruction, and/or weight based dosing when appropriate to reduce radiation dose to as low as reasonably achievable. IV CONTRAST: No IV contrast used,0ml TOTAL DOSE: 9.30 CTDIvol(mGy) FINDINGS: LIVER: Normal. No enlargement, atrophy, abnormal density, or significant focal lesion. BILIARY: A 10 millimeter gallbladder calculus is present. PANCREAS: Normal. No lesion, fluid collection, ductal dilatation, or atrophy. SPLEEN: Normal. No enlargement or focal lesion. KIDNEYS: Normal. No mass, obstruction, or calcification. ADRENALS: Normal. No mass or enlargement. AORTA/VASCULAR: Normal. No aneurysm. RETROPERITONEUM: Normal. No mass or adenopathy. BOWEL/MESENTERY: There is a large volume stool at the rectosigmoid colon consistent with constipation.. No visible mass, obstruction, or bowel wall thickening. ABDOMINAL WALL: Normal. No mass or hernia. URINARY BLADDER: Normal. No visible focal wall thickening, lesion, or calculus. PELVIC NODES: Normal. No adenopathy. PELVIC ORGANS: Normal. No visible mass. Pelvic organs appropriate for patient age. BONES: Degenerative changes of the spine are present. There is grade 1 anterolisthesis at the L5-S1 level. LUNG BASES: Normal. No visible pulmonary or pleural disease. OTHER: Negative. CONCLUSION: Continued Report - Page 2 of 2 Patient: TERRI VILLAR Phone#: : 1955 Age: 68 Gender: F Pt. Type: ER Account: [id number] Location: [facility] Ordering: LAYO CARLTON Exam Date: 12/20/2023/6:44 Family Phys: BRIDGET DE LUNA Charge Code: [id number] Physician: Lajas Order #: [id number] Dose#: [id number] 1. Large volume stool at the rectosigmoid colon with distention. Otherwise moderate stool retention. 2. Cholelithiasis. 3. No other acute abdominal or pelvic abnormality is identified. Dictated by: Alicia Coelho MD on 12/20/2023 at 8:29 Approved by: Alicia Coelho MD on 12/20/2023 at 8:39 Normal [facility] LIPASEon 12-20-2023 Lipase [Catalytic activity/Vol] 47.0 U/L Normal 15.0 - 78.0 [facility] Comment on above: Result Comment: *PLE ASE NOTE THAT RANGES FOR LIPASE HAVE CHANGED OF 09/29/23 DUE TO AN ASSAY UPDATE BY THE HEALTH SERVICE WORKER.THE NEW ASSAY RANGE IS 6-250 U/L, WITH A REFERENCE RANGE OF 16-77 U/L. Performed By: #### 2 64759 #### [facility],[address] [place] [address] URINALYSISon 12-20-2023 Amorphous NONE Normal [facility] Comment on above: Performed By: #### 2 84047 #### [facility],[address] [place] [address] Bacteria TRACE Normal [facility] Comment on above: Performed By: #### 2 66598 #### [facility],[address] [place] [address] Bilirubin Ql (U) Negative Normal NORMAL: NEGATIVE [facility] Comment on above: Performed By: #### 2 10541 #### [facility],[address] [place] [address] Casts NONE Normal [facility] Comment on above: Performed By: #### 2 42968 #### [facility],[address] [place], [place] [address] Clarity (U) clear Normal NORMAL: CLEAR [facility] Comment on above: Performed By: #### 2 09844 #### [facility],[address] [place], [place] [address] Color (U) yellow Normal NORMAL: YELLOW [facility] Comment on above: Performed By: #### 2 90754 #### [facility],[address] [place] [address] Crystals LM Nom (Urine sed) NONE Normal [facility] Comment on above: Performed By: #### 2 66092 #### [facility],[address] [place], [place] [address] Epi Cells MANY Normal [facility] Comment on above: Performed By: #### 2 88460 #### [facility],[address] [place] [address] 01175 Glucose Ql (U) NORM Normal NORMAL: NORMAL [facility] Comment on above: Performed By: #### 2 33999 #### [facility],[address] [place] [address] 05182 Hemoglobin Ql (U) 25 Abnormal NORMAL: NEGATIVE [facility] Comment on above: Performed By: #### 2 15559 #### [facility],[address] [place] [address] 55294 Ketone Negative Normal NORMAL: NEGATIVE [facility] Comment on above: Performed By: #### 2 98579 #### [facility],[address] [place] [address],[facility] [address] Leukocytes Negative Normal NORMAL: NEGATIVE [facility] Comment on above: Performed By: #### 2 42873 #### [facility],[address] [place] [address] 51817 Mucous NONE Normal [facility] Comment on above: Performed By: #### 2 17298 #### [facility],[address] [place] [address] 20800 Nitrite Ql (U) Negative Normal NORMAL: NEGATIVE [facility] Comment on above: Performed By: #### 2 11378 #### [facility],[address] [place] [address] 10025 pH (U) 8 [pH] Normal NORMAL: 5.0-8.0 [facility] Comment on above: Performed By: #### 2 98412 #### [facility],[address] [place] [address] 84326 Protein Ql (U) Negative Normal NORMAL: NEGATIVE [facility] Comment on above: Performed By: #### 2 33395 #### [facility],[address] [place] [address] 53842 Rbc 0-5 Normal 0-3/hpf [facility] Comment on above: Performed By: #### 2 55024 #### [facility],[address] [place] [address] Sp [place] 1.010 Normal NORMAL: 1.010-1.030 [facility] Comment on above: Performed By: #### 2 37252 #### [facility],[address] [place] [address] Specimen Type Void Normal [facility] Comment on above: Performed By: #### 2 69266 #### [facility],[address] [place] [address] Urinalysis dipstick W Reflex Microscopic panel (U) SEE BELOW Normal [facility] Comment on above: Result Comment: MICR OSCOPIC Performed By: #### 2 98995 #### [facility],[address] [place] [address] Urobilinog NORM Normal NORMAL: NORMAL [facility] Comment on above: Performed By: #### 2 25531 #### [facility],[address] [place] [address] Wbc 1-5 Normal 0-5/hpf [facility] Comment on above: Performed By: #### 2 81083 #### [facility],[address] [place] [address] Yeast NONE Normal [facility] Comment on above: Performed By: #### 2 80207 #### [facility],[address] [place] [address] No Panel Informationon 12-13 [facility] Renal function 2000 panelon 12-13-2023 Albumin [Mass/Vol] 4.2 g/dL 3.9 - 4.9 g/dL [facility] Anion gap [Moles/Vol] 9 mmol/L 9 - 18 mmol/L [facility] Calcium [Mass/Vol] 9.8 mg/dL 8.5 - 10. 2 mg/dL [facility] Chloride [Moles/Vol] 105 mmol/L 97 - 10 5 mmol/L [facility] CO2 [Moles/Vol] 22 mmol/L 22 - 30 mmol/L [facility] Creatinine [Mass/Vol] 0.91 mg/dL 0.58 - 0.96 mg/dL [facility] Estimated Glomerular Filtration Rate 68 mL/min/1.73m >=60 mL/min/1.73m [facility] Glucose [Mass/Vol] 98 mg/dL 74 - 99 mg/dL [facility] Phosphate [Mass/Vol] 2.9 mg/dL 2.7 - 4 .8 mg/dL [facility] Potassium [Moles/Vol] 4.6 mmol/L 3.7 - 5.1 mmol/L [facility] Sodium [Moles/Vol] 136 mmol/L 136 - 144 mmol/L [facility] Urea nitrogen [Mass/Vol] 13 mg/dL 7 - 21 mg/dL [facility] Urinalysis complete panel (U )on 12-13-2023 Bacteria LM.HPF (Urine sed) [#/Area] Negative Negative /HPF [facility] Bilirubin Ql (U) Negative Negative [facility] Clarity (Unsp spec) Clear Clear [facility] Color (U) Yellow Yellow [facility] Epithelial cells LM.HPF (Urine sed) [#/Area] None Seen [facility] Glucose Test strip (U) [Mass/Vol] Negative Negative [facility] Hemoglobin Ql (U) Negative Negative [facility] Hyaline casts (Urine sed) [#/Area] 0 /[LPF] 0 /LPF [facility] Ketones Ql (U) Negative Negative [facility] Leukocyte esterase Test strip Ql (U) Negative Negative [facility] Nitrite Ql (U) Negative Negative [facility] pH (U) 8.5 [pH] High <8.5 [facility] Protein (U) [Mass/Vol] Negative Negative [facility] RBC LM.HPF (Urine sed) [#/Area] 3-5 /HPF Abnormal 0-2 /HPF [facility] Specific gravity (U) [Rel density] 1.011 1.005 - 1.030 [facility] Urobilinogen Ql (U) 0.2 EU/dL 0.2-1.0 EU/dL Cl [facility] WBC LM.HPF (Urine sed) [#/Area] 0-5 /HPF 0-5 /HPF [facility] EMERGENCY REPORTon EMERGENCY REPORT [facility] EMERGENCY ROOM REPORT NAME ACCOUNT SEX AGE ADMIT DISCHARGE PT MED. RECORD# NUMBER DATE DATE TYPE AUREA [id number] Leonor 68 12/08/23 12/08/23 Teo Kulkarni [id number] ROOM: ER DATE OF : 1955 DICTATING PHYSICIAN: Lexii Felix CHIEF COMPLAINT: Lower back pain. HISTORY OF PRESENT ILLNESS: This is a 68-year-old female who has an extensive history of osteoarthritis and presents with a 2-day history of an aching pain across her lower back and radiating into the right buttock area. It is worse with movement or when she bends or tries to lift anything. She has had no change in her bowel or bladder habits. She has had no fever. She also denies any perineal anesthesia. She has had problems with her back in the past. She has multiple allergies to medications. She has not taken anything for this. She denies any dysuria or frequency. PAST MEDICAL HISTORY: Significant for osteoarthritis, osteoporosis, and hypertension. SOCIAL HISTORY: The patient does not smoke or drink excessively. REVIEW OF SYSTEMS: The patient complains of the 2-day history of the pain across her lower back, worse with movement. She denies any abdominal pain. She denies dysuria or frequency. She denies fever, chest pain, or shortness of breath. All other review of systems are negative except as noted above. PHYSICAL EXAMINATION: VITAL SIGNS: Afebrile. Vital signs are stable. GENERAL: The patient is alert and appears comfortable. She is smiling and converses normally. NECK: Neck shows no evidence of tenderness. LUNGS: Chest is clear. CARDIOVASCULAR: Regular rate and rhythm. ABDOMEN: Abdomen is soft with active bowel sounds and nontender. No guarding, rebound or masses. BACK: The back reveals tenderness in the paraspinal lumbar region bilaterally but worse on the right side. She also has some tenderness over the right sciatic notch. Straight leg raising is negative, and the neurovascular examination is normal in both lower extremities. DIAGNOSTIC DATA: The x-rays of the lower back show degenerative disease and osteoarthritis with some areas of spondylolisthesis and narrowing. The urine is clear without evidence of infection. There is a trace of blood. MEDICAL DECISION-MAKING/EMERGEN CY DEPARTMENT COURSE AND TREATMENT: This is a 68-year-old female who presents with a 2-day history of lower back pain worsened with movement. Differential diagnosis includes urinary tract Page 1 of 2 TERRI VILLAR Emergency Room Report TERRI VILLAR : 1955 infection, pyelonephritis, lumbar strain, and acute sciatica. I discussed the situation with the patient. She is comfortable returning home. She indicates she has taken ibuprofen without problems in the past. The patient will be given Anaprox for pain as well as a Lidoderm patch. Follow up with her primary physician. DIAGNOSIS: Acute lumbar strain. Dictated By: Lexii Felix MD 12/08/23 13:00 JOB #: [id number] Transcribed By: jose antonio 12/08/23 16:54 Electronically signed by: Lexii Felix M.D. 12/11/23 16:02 Page 2 of 2 TERRI VILLAR Emergency Room Report Normal [facility] UA DIP, URINE (POC)on 2023 BILIRUBIN UA (POCT) Negative Negative [facility] CLARITY UA (POCT) Clear [facility] COLOR UA (POCT) Yellow [facility] GLUCOSE UA (POCT) Negative Negative mg/dL [facility] Hemoglobin Ql (U) Trace-lysed Abnormal Negative [facility] KETONE UA (POCT) Negative Negative mg/dL [facility] LEUKOCYTES UA (POCT) Negative Negative [facility] NITRITE UA (POCT) Negative Negative [facility] PH UA (POCT) 8.5 Abnormal 4.5 - 8.0 [facility] Protein Ql (U) Negative Negative mg/dL [facility] SPECIFIC GRAVITY UA (POCT) 1.015 1.005 - 1.030 [facility] UROBILINOGEN UA (POCT) 0.2 E.U./dL Normal E.U./dL [facility] LUMBO SACRAL COMPLETE MIN 4 VIEWSon 12-08-2023 LUMBO SACRAL COMPLETE MIN 4 VIEWS [place] [address] Patient: TERRI VILLAR. Phone#: : 1955 Age: 68 Gender: F Pt. Type: ER Account: [id number] Location: [facility] Ordering: DR. LEXII FELIX Exam Date: 12/08/2023/12:13 Family Phys: BRIDGET DE LUNA Charge Code: [id number] Physician: Lajas Order #: [id number] Dose#: PROCEDURE: X-RAY LUMBAR SPINE COMPLETE MIN 4 VIEWS COMPARISON: [facility], CT, ABDOMEN/PELVIS W/O CON, 06/16/2023, 12:36. INDICATIONS: Low back pain. FINDINGS: BONES: Grade 2 anterolisthesis of L5 on S1 with associated at least moderate osseous foraminal narrowing. L2-3 mild osseous foraminal narrowing. Vertebral bodies are maintained in height. There is mild osseous foraminal narrowing of at L3-4. DISC SPACES: Disc height loss at L2-3 and L5-S1 PARASPINOUS: Negative. No paraspinous abnormality is seen. OTHER: Negative. CONCLUSION: 1. Grade 2 anterolisthesis of L5 on S1. There is associated disc height loss and osseous foraminal narrowing. 2. L2-3 and L3-4 mild foraminal narrowing Dictated by: Jasmin Hart MD on 12/08/2023 at 12:29 Approved by: Jasmin Hart MD on 12/08/2023 at 12:34 Normal [facility] URINALYSISon 12-08-2023 Amorphous NONE Normal [facility] Comment on above: Performed By: #### 2 [id number] #### [facility],[address] [place] [address] Bacteria NONE Normal [facility] Comment on above: Performed By: #### 2 62716 #### [facility],[address] [place] [address] Bilirubin Ql (U) Negative Normal NORMAL: NEGATIVE [facility] Comment on above: Performed By: #### 2 31797 #### [facility],[address] [place] [address] Casts NONE Normal [facility] Comment on above: Performed By: #### 2 46643 #### [facility],[address] [place] [address] Clarity (U) clear Normal NORMAL: CLEAR [facility] Comment on above: Performed By: #### 2 32844 #### [facility],[address] [place] [address] Color (U) p.yel Normal NORMAL: YELLOW [facility] Comment on above: Performed By: #### 2 04041 #### [facility],[address] [place] [address] Crystals LM Nom (Urine sed) NONE Normal [facility] Comment on above: Performed By: #### 2 37074 #### [facility],[address] [place] [address] Epi Cells NONE Normal [facility] Comment on above: Performed By: #### 2 09006 #### [facility],[address] [place] [address] Glucose Ql (U) NORM Normal NORMAL: NORMAL [facility] Comment on above: Performed By: #### 2 32076 #### [facility],[address] [place] [address] Hemoglobin Ql (U) 10 Abnormal NORMAL: NEGATIVE [facility] Comment on above: Performed By: #### 2 07825 #### [facility],[address] [place] [address] Ketone Negative Normal NORMAL: NEGATIVE [facility] Comment on above: Performed By: #### 2 13285 #### [facility],[address] [place] [address] 93694 Leukocytes Negative Normal NORMAL: NEGATIVE [facility] Comment on above: Performed By: #### 2 90143 #### [facility],[address] [place] [address] Mucous NONE Normal [facility] Comment on above: Performed By: #### 2 98159 #### [facility],[address] [place] [address] Nitrite Ql (U) Negative Normal NORMAL: NEGATIVE [facility] Comment on above: Performed By: #### 2 78106 #### [facility],[address] [place] [address] pH (U) 8 [pH] Normal NORMAL: 5.0-8.0 [facility] Comment on above: Performed By: #### 2 30926 #### [facility],[address] [place] [address] Protein Ql (U) Negative Normal NORMAL: NEGATIVE [facility] Comment on above: Performed By: #### 2 06659 #### [facility],[address] [place] [address] Rbc 0-5 Normal 0-3/hpf [facility] Comment on above: Performed By: #### 2 51170 #### [facility],[address] [place] [address] Sp [place] 1.015 Normal NORMAL: 1.010-1.030 [facility] Comment on above: Performed By: #### 2 28406 #### [facility],[address] [place] [address] Specimen Type UNSPECIFIED Normal [facility] Comment on above: Performed By: #### 2 71021 #### [facility],[address] [place] [address] Urinalysis dipstick W Reflex Microscopic panel (U) SEE BELOW Normal [facility] Comment on above: Result Comment: MICR OSCOPIC Performed By: #### 2 60139 #### [facility],[address] [place] [address] Urobilinog NORM Normal NORMAL: NORMAL [facility] Comment on above: Performed By: #### 2 05956 #### [facility],[address] [place] [address] Wbc 1-5 Normal 0-5/hpf [facility] Comment on above: Performed By: #### 2 63207 #### [facility],[address] [place] [address] Yeast NONE Normal [facility] Comment on above: Performed By: #### 2 18248 #### [facility],[address] [place] [address] UA DIP, URINE (POC)on 2023 BILIRUBIN UA (POCT) Negative Negative [facility] CLARITY UA (POCT) Clear [facility] COLOR UA (POCT) Yellow [facility] GLUCOSE UA (POCT) Negative Negative mg/dL [facility] Hemoglobin Ql (U) Trace-lysed Abnormal Negative [facility] KETONE UA (POCT) Negative Negative mg/dL [facility] LEUKOCYTES UA (POCT) Negative Negative [facility] NITRITE UA (POCT) Negative Negative [facility] PH UA (POCT) 7.5 4.5 - 8.0 [facility] Protein Ql (U) Negative Negative mg/dL [facility] SPECIFIC GRAVITY UA (POCT) 1.015 1.005 - 1.030 [facility] UROBILINOGEN UA (POCT) 0.2 E.U./dL Normal E.U./dL [facility] EMERGENCY REPORTon 3 EMERGENCY REPORT [facility] EMERGENCY ROOM REPORT NAME ACCOUNT SEX AGE ADMIT DISCHARGE PT MED. RECORD# NUMBER DATE DATE TYPE AUREA, [id number] F 68 09/25/23 09/25/23 3 TERRI Kulkarni [address] ROOM: ER DATE OF : 1955 DICTATING PHYSICIAN: Dawit Thornton CHIEF COMPLAINT: Sinus congestion, headache and body aches. HISTORY OF PRESENT ILLNESS: The patient states that since last night she has not felt well. She has some mild diffuse body aches but no fever or chills. She feels minimally nauseated. She complains of sinus pressure and headache. She does not have a cough. She is not complaining of chest pain or shortness of breath. She checked a COVID test at home, which was negative. No abdominal pain. No urinary symptoms. PAST MEDICAL HISTORY: The patient is seen very frequently in the Emergency Department for various medical problems. She does have a history of hypertension, reflux, kidney disease, and gallstones/biliary colic. PAST SURGICAL HISTORY: She has had previous . No other surgeries. MEDICATIONS: Per medication reconciliation list. ALLERGIES: She has multiple allergies, which are on her allergy list. SOCIAL HISTORY: She lives at home. She is . She does not smoke or drink alcohol. REVIEW OF SYSTEMS: No recent injury or trauma. Otherwise negative as mentioned above. PHYSICAL EXAMINATION: GENERAL: This is a 68-year-old thin female who is alert and appropriate. She does not appear toxic or in any distress. SKIN: Her skin is pink, warm and dry. HEENT: Examination is all within normal limits. NECK: Her neck is supple without adenopathy. LUNGS: Lungs are clear without crackles or wheezes. CARDIAC: Cardiac examination is a regular rhythm without ectopy or murmurs. ABDOMEN: Abdomen is soft and nontender. EXTREMITIES: Good peripheral pulses and good capillary refill. VITAL SIGNS: Temperature is 97.5, pulse 95, respirations 18, blood pressure 150/85, and oxygen saturation 99%. DIAGNOSTIC DATA: Rapid flu and COVID swabs were both obtained, and these were both negative. Page 1 of 2 TERRI VILLAR Emergency Room Report TERRI VILLAR : 1955 EMERGENCY DEPARTMENT COURSE AND TREATMENT: I did not feel that any other specific antibiotics, treatment or imaging would be indicated. She was discharged to home. She is to follow up with her family physician in the next 2 to 3 days, returning if symptoms worsen. DIAGNOSIS: Headache with upper respiratory infection and possible sinus infection. This does seem to be more viral in etiology at this point. Dictated By: Dawit Thornton MD 09/25/23 11:39 JOB #: [id number] Transcribed By: jose antonio 09/26/23 09:38 Electronically signed by: MONA Thornton M.D. 09/30/23 07:20 Page 2 of 2 TERRI VILLAR Emergency Room Report Normal [facility] CORONAVIRUS (SARS) ANTIGEN T ESTon 09-25-2023 EXTERNAL QC DONE? YES Normal [facility] Comment on above: Performed By: #### 2 15587 #### [address] [address] INTERNAL CONTROL PASS Normal [facility] Comment on above: Performed By: #### 2 17151 #### [address] [address] SARS ANTIGEN Negative Normal NORMAL: NEGATIVE [facility] Comment on above: Performed By: #### 2 45968 #### [facility],[address] [place] [address] SEND TO IC? NO Normal [facility] Comment on above: Result Comment: SARS -CoV-2 THIS TEST IS BEING USED UNDER THE FDA EUA PROCEDURE. THIS ASSAY HAS BEEN VALIDATED AT [facility] FOR USE WITH NASAL AND NASOPHARYNGEAL SWAB SPECIMENS. INTERPRETIVE DATA TEST RESULTS SHOULD ALWAYS BE CONSIDERED IN THE CONTEXT OF CLINICAL OBSERVATIONS AND EPIDEMIOLOGICAL DATA IN MAKING FINAL DIAGNOSIS AND PATIENT MANAGEMENT DECISIONS. PATIENT MANAGEMENT SHOULD FOLLOW CURRENT CDC GUIDELINES. THE SOCO SARS ANTIGEN JOSH DOES NOT DIFFERENTIATE BETWEEN SARS-CoV & SARS-CoV-2. A POSITIVE TEST RESULT INDICATES THE PRESENCE OF SARS-CoV-2 NUCLEOCAPSID PROTEIN ANTIGEN, AND THE PATIENT IS INFECTED WITH THE VIRUS AND PRESUMED TO BE CONTAGIOUS. A NEGATIVE TEST RESULT FOR THIS TEST MEANS THAT SARS-CoV-2 NUCLEOCAPSID PROTEIN ANTIGEN WAS NOT PRESENT IN THE SPECIMEN ABOVE THE LIMIT OF DETECTION. HOWEVER, A NEGATIVE RESULT DOES NOT RULE OUT COVID-19 AND SHOULD NOT BE USED THE SOLE BASIS FOR TREATMENT OR PATIENT MANAGEMENT DECISIONS. A NEGATIVE RESULT DOES NOT EXCLUDE THE POSSIBILITY OF COVID-19. NEGATIVE RESULTS, FROM PATIENTS WITH SYMPTOM ONSET BEYOND FIVE DAYS, SHOULD BE TREATED PRESUMPTIVE AND CONFIRMATION WITH A MOLECULAR ASSAY, IF NECESSARY, FOR PATIENT MANAGEMENT, MAY BE PERFORMED. WHEN DIAGNOSTIC TESTING IS NEGATIVE, THE POSSIBLILTY OF A FALSE NEGATIVE RESULT SHOULD BE CONSIDERED IN THE CONTEXT OF A PATIENT'S RECENT EXPOSURES AND THE PRESENCE OF CLINICAL SIGNS AND SYMPTOMS CONSISTENT WITH COVID-19. THE POSSIBILITY OF A FALSE NEGATIVE RESULT SHOULD ESPECIALLY BE CONSIDERED IF THE PATIENT'S RECENT EXPOSURES OR CLINICAL PRESENTATION INDICATE THAT COVID-19 IS LIKELY, AND DIAGNOSTIC TESTS FOR OTHER CAUSES OF ILLNESS (e.g., OTHER RESPIRATORY ILLNESS) ARE NEGATIVE. IF COVID-19 IS STILL SUSPECTED BASED ON EXPOSURE HISTORY TOGETHER WITH OTHER CLINICAL FINDINGS, RE-TESTING SHOULD BE CONSIDERED BY HEALTHCARE PROVIDERS IN CONSULTATION WITH PUBLIC HEALTH AUTHORITIES. Performed By: #### 2 [id number] #### [facility],[address] [place] [address] INFLUENZA VIRUS RAPID A/Bon 09-25-2023 INFLUENZA VIRUS RAPID A/B INFLUENZA A NEGATIVE INFLUENZA B NEGATIVE INTERNAL NEG QC PASS INTERNAL POS QC PASS EXTERNAL QC DONE? YES SEND TO IC? NO A NEGATIVE TEST RESULT DOES NOT EXCLUDE INFECTION WITH INFLUENZA A OR B. THEREFORE, THE RESULTS OBTAINED FROM THIS FLU TEST SHOULD BE USED IN CONJUCTION WITH CLINICAL FINDINGS TO MAKE AN ACCURATE DIAGNOSIS. A POSITIVE RESULT DOES NOT RULE OUT CO-INFECTIONS WITH OTHER PATHOGENS OR IDENTIFY ANY SPECIFIC INFLUENZA A VIRUS SUBTYPE.CO-INFECTION WITH INFLUENZA A AND B IS RARE. IT IS RECOMMENDED THAT DUAL POSITIVE RESULTS BE CONFIRMED BY VIRAL CULTURE OR AN FDA-CLEARED INFLUENZA A AND B MOLECULAR ASSAY. INDIVIDUALS WHO HAVE RECEIVED NASALLY ADMINISTERED INFLUENZA A VACCINE MAY TEST POSITIVE IN COMMERCIALLY AVAILABLE INFLUENZA RAPID DIAGNOSTIC TESTS FOR UP TO THREE DAYS. RESULT CRITICAL? NO Normal [facility] Comment on above: Performed By: #### 2 [id number] ####[facility],[address] [place], [place] [id number] CT CERVICAL W/O CONTRASTon 1 11-14-2022 CT CERVICAL W/O CONTRAST [place] [address] Patient: TERRI VILLAR Phone#: : 1955 Age: 68 Gender: F Pt. Type: ER Account: [id number] Location: [facility] Ordering: PIPE WORKMAN Exam Date: 09/13/2023/7:40 Family Phys: BRIDGET DE LUNA Charge Code: [id number] Physician: Lajas Order #: [id number] Dose#: 6.10 PROCEDURE: CT CERVICAL WITHOUT CONTRAST COMPARISON: [facility], CT, CERVICAL W/O CON, 04/27/2022, 5:22. INDICATIONS: Fall. TECHNIQUE: Multi-planar CT images were created without intravenous contrast. All CT scans at this facility use dose modulation, iterative reconstruction, and/or weight-based dosing when appropriate to reduce radiation dose to as low as reasonably achievable. IV CONTRAST: No IV contrast used,0ml TOTAL DOSE: 6.10 6.10 CTDIvol(mGy) FINDINGS: CRANIOCERVICAL AREA: Normal foramen magnum with no Chiari malformation. PARASPINAL AREA: Normal with no visible mass. BONES: There is reversal the normal cervical lordosis, centered at C4-5. Vertebral bodies are maintained in height. No evidence of fracture. There is grade 1 anterolisthesis of C3 on C4 and grade 1 retrolisthesis of C5 on C6. The dens is intact. The lateral masses are symmetric. CERVICAL DISC LEVELS: C2-C3: No significant disc/facet abnormality, spinal stenosis, or foraminal stenosis. C3-C4: Disc height loss, facet arthropathy and uncovertebral hypertrophy contributes to moderate left foraminal narrowing C4-C5: No significant disc/facet abnormality, spinal stenosis, or foraminal stenosis. C5-C6: Disc height loss and uncovertebral hypertrophy contributes to mild bilateral foraminal narrowing and at least mild spinal canal narrowing C6-C7: Disc height loss contributes to uncovertebral hypertrophy contributing to moderate severe left foraminal narrowing. There is at least mild spinal canal narrowing C7-T1: No significant disc/facet abnormality, spinal stenosis, or foraminal stenosis. CONCLUSION: Continued Report - Page 2 of 2 Patient: TERRI VILLAR Phone#: : 1955 Age: 68 Gender: F Pt. Type: ER Account: [id number] Location: 052 Ordering: PIPE JI Exam Date: 09/13/2023/7:40 Family Phys: BRIDGET DE LUNA Charge Code: [id number] Physician: Lajas Order #: [id number] Dose#: 6.10 1. No acute osseous abnormality 2. Multilevel degenerative disc disease resulting in varying degrees of spinal canal and neural foraminal narrowing Dictated by: Jasmin Hart MD on 09/13/2023 at 8:32 Approved by: Jasmin Hart MD on 09/13/2023 at 8:38 Normal [facility] CT DORSAL W/O CONTRASTon CT DORSAL W/O CONTRAST [place] [address] Patient: TERRI VILLARLobito Phone#: : 1955 Age: 68 Gender: F Pt. Type: ER Account: [id number] Location: 052 Ordering: PIPE JI Exam Date: 09/13/2023/7:43 Family Phys: BRIDGET DE LUNA Charge Code: [id number] Physician: Lajas Order #: [id number] Dose#: 9.10 PROCEDURE: CT DORSAL SPINE WITHOUT CONTRAST COMPARISON: None. INDICATIONS: Trauma. TECHNIQUE: Multi-planar CT images were created without intravenous contrast. All CT scans at this facility use dose modulation, iterative reconstruction, and/or weight based dosing when appropriate to reduce radiation dose to as low as reasonably achievable. IV CONTRAST: No IV contrast used,0ml TOTAL DOSE: 9.10 CTDIvol(mGy) FINDINGS: PARASPINAL AREA: Normal with no visible mass. DISCS: No significant disc/facet abnormality, spinal stenosis, or foraminal stenosis. BONES: Vertebral bodies are maintained in height and alignment. No fracture or subluxation. There is diffuse bony demineralization. OTHER: Calcified granulomas present calcified hilar lymph nodes. CONCLUSION: 1. No acute osseous abnormality Dictated by: Jasmin Hart MD on 09/13/2023 at 8:38 Approved by: Jasmin Hart MD on 09/13/2023 at 8:44 Normal [facility] EMERGENCY REPORTon 3 EMERGENCY REPORT [facility] EMERGENCY ROOM REPORT NAME ACCOUNT SEX AGE ADMIT DISCHARGE PT MED. RECORD# NUMBER DATE DATE TYPE AUREA, [id number] F 68 09/13/23 09/13/23 3 TERRI Kulkarni [address] ROOM: ER DATE OF : 1955 DICTATING PHYSICIAN: Pipe Workman CHIEF COMPLAINT: Blood pressure and fall. HISTORY OF PRESENT ILLNESS: The patient is a pleasant 68-year-old female who slipped on the steps. She says she missed the last step and fell backwards onto her back last night around 10 p.m. She is not on blood thinners. She did not hit her head. She had no loss of consciousness. She was not feeling dizzy or weak. No numbness or tingling of her extremities. She denies any extremity weakness. She complains of pain in the mid upper back, low neck region, and posterior left shoulder. She did not take anything for it this morning. She denies any weakness of her extremities. She has been able to ambulate. No loss of bowel or bladder control. She denies any associated chest pain, shortness of breath, or abdominal pain. No nausea or vomiting or diarrhea or constipation. No dysuria, urgency, frequency, hematuria, hesitancy, or incontinence. PAST MEDICAL HISTORY: Reviewed, and includes a history of hypertension and hyperlipidemia. PAST SURGICAL HISTORY: No recent surgeries. SOCIAL HISTORY: She does occasionally smoke. No alcohol or drugs. FAMILY HISTORY: Denied. ALLERGIES: Penicillin. REVIEW OF SYSTEMS: A complete review of systems is otherwise negative except as noted above. PHYSICAL EXAMINATION: VITAL SIGNS: Revealed vital signs to be stable. Temperature was 97.8, pulse 88, respiratory rate 20 and unlabored with a pulse oximetry of 98%. Blood pressure was 156/78. GENERAL APPEARANCE: The patient is awake, alert, and oriented x4. HEENT: Head is atraumatic. Negative raccoon eyes. Negative Thapa sign. Negative hemotympanum. Mucous membranes are pink, moist, and intact. HEART: Regular rate and rhythm. No murmur, click, gallop, or rub. LUNGS: Clear to auscultation. No rales, rhonchi, or wheeze. EXTREMITIES: Extremities x4 without gross deformity. Palpation of the neck revealed some tenderness on the left side of the lower cervical spine and the upper dorsal spine. There was no midline bony Page 1 of 2 TERRI VILLAR Emergency Room Report TERRI VILLAR : 1955 tenderness or bony step-off or deformity. She does have pain on palpation over the left posterior shoulder. She has good range of motion. Pain is mostly over the trapezius and upper scapular region. The left upper extremity itself was neurovascularly intact. SKIN: Warm and dry. No rash. DIAGNOSTIC DATA: CT imaging of the C-spine showed no evidence of acute fracture or osseous abnormality. There is some degenerative changes. CT imaging of the dorsal spine was negative for acute fracture. There was some degenerative changes. No acute findings. Alignment is intact. X-ray of the left shoulder revealed no dislocation. No acute bony injury. EMERGENCY DEPARTMENT COURSE AND TREATMENT: The patient was given Tylenol here for pain. She is reassured that there is no acute bony injury. DIAGNOSES: 1. Accidental fall. 2. Contusion of back. 3. Contusion of left shoulder. PLAN/DISPOSITION: Ice or heat as needed for pain. Tylenol and/or ibuprofen as needed for pain. Followup with primary care physician in 5 to 7 days. She was discharged home in improved and stable condition. Dictated By: Pipe Workman, DO 09/13/23 08:57 JOB #: [id number] Transcribed By: am 09/13/23 09:44 Electronically signed by: Dr. Pipe Workman, DO 09/13/23 19:25 Page 2 of 2 TERRI VILLAR Emergency Room Report Normal [facility] SHOULDER COMPLETE LTon 09-13 SHOULDER COMPLETE LT [place] [address] Patient: TERRI VILLAR. Phone#: : 1955 Age: 68 Gender: F Pt. Type: ER Account: [id number] Location: [facility] Ordering: PIPE WORKMAN Exam Date: 09/13/2023/7:52 Family Phys: BRIDGET ANNAMARIE Charge Code: [id number] Physician: Lajas Order #: [id number] Dose#: PROCEDURE: X-RAY SHOULDER LT MIN 2 VIEWS COMPARISON: None. INDICATIONS: Trauma. FINDINGS: BONES: Normal. No significant arthropathy or acute abnormality. No fracture dislocation. Humeral head is normal in contour. There is normal alignment. SOFT TISSUES: Negative. No visible soft tissue swelling. EFFUSION: None visible. OTHER: Negative. CONCLUSION: 1. No acute osseous abnormality Dictated by: Jasmni Hart MD on 09/13/2023 at 8:30 Approved by: Jasmin Hart MD on 09/13/2023 at 8:32 Normal [facility] XR RIBS BILATERAL/CHEST 4Von 09-11-2023 [facility] CBC + DIFFon 09-10-2023 Baso # 0.00 x10EE3/UL Normal 0.00 - 0.10 [facility] Comment on above: Performed By: #### 2 47430 #### [facility],[address] [place] [address] Basophils/100 WBC (Bld) 0.7 % Normal 0.0 - 2.0 [facility] Comment on above: Performed By: #### 2 10412 #### [facility],[address] [place] [address] CBC + DIFF Normal [facility] Comment on above: Result Comment: CBC- COMPLETE BLOOD COUNT Performed By: #### 2 55532 #### [facility],[address] [place] [address] EO # 0.00 x10EE3/UL Normal 0.00 - 0.50 [facility] Comment on above: Performed By: #### 2 00538 #### [facility],[address] [place] [address] Eosinophils/100 WBC (Bld) 0.5 % Normal 0.0 - 7.0 [facility] Comment on above: Performed By: #### 2 37350 #### [facility],[address] [place] [address] Erythrocyte distribution width (RBC) [Ratio] 13.1 % Normal 12.0 - 15.6 [facility] Comment on above: Performed By: #### 2 61457 #### [facility],[address] [place] [address] Hematocrit (Bld) [Volume fraction] 42.7 % Normal 34.0 - 46.0 [facility] Comment on above: Performed By: #### 2 72960 #### [facility],[address] [place] [address] Hemoglobin (Bld) [Mass/Vol] 14.2 g/dL Normal 12.0 - 16.0 [facility] Comment on above: Performed By: #### 2 97099 #### [facility],[address] [place], [place] [id number] Lymph # 1.50 x10EE3/UL Normal 0.80 - 2.80 [facility] Comment on above: Performed By: #### 2 84227 #### [facility],[address] [place], [place] [id number] Lymphocytes/100 WBC (Bld) 26.1 % Normal 20.0 - 45.0 [facility] Comment on above: Performed By: #### 2 87776 #### [facility],[address] [place] [address] MANUAL DIFF N/A Normal [facility] Comment on above: Performed By: #### 2 28884 #### [facility],[address] [place] [address] MCH (RBC) [Entitic mass] 32 pg Normal 27 - 33 [facility] Comment on above: Performed By: #### 2 83150 #### [facility],[address] [place] [address] MCHC 33 X10 3 Normal 32 - 36 [facility] System Comment on above: Performed By: #### 2 74063 #### [facility],[address] [place] [address] MCV (RBC) [Entitic vol] 97 fL Normal 80 - 99 [facility] Comment on above: Performed By: #### 2 38946 #### [facility],[address] [place] [address] Hodgeman # 0.40 x10EE3/UL Normal 0.20 - 1.00 [facility] Comment on above: Performed By: #### 2 33631 #### [facility],[address] [place] [address] MONOS % 6.0 % Normal 0.0 - 10.0 [facility] Comment on above: Performed By: #### 2 97905 #### [facility],[address] [place] [address] Morphology Alex (Bld) [Interp] N/A Normal [facility] Comment on above: Result Comment: {CD] Performed By: #### 2 06977 #### [place] [address] Neut # 3.90 x10EE3/UL Normal 1.50 - 7.10 [facility] Comment on above: Performed By: #### 2 78938 #### [facility],[address] [place] [address] 05168 Neutrophils/100 WBC (Bld) 66.7 % Normal 46.0 - 76.0 [facility] Comment on above: Performed By: #### 2 91329 #### [facility],[address] [place] [address] 21465 PLATELET 216 x10EE3/UL Normal 150 - 450 [facility] Comment on above: Performed By: #### 2 43372 #### [facility],[address] [place] [address] 82023 Platelet mean volume (Bld) [Entitic vol] 9.0 fL Normal 6.6 - 10.5 [facility] Comment on above: Result Comment: AUTO MATED DIFFERENTIAL Performed By: #### 2 15136 #### [facility],[address] [place] [address] 95527 RBC 4.42 x 10EE6/UL Normal 4.10 - 5.30 [facility] Comment on above: Performed By: #### 2 66121 #### [facility],[address] [place] [address] 35610 WBC 5.9 x 10EE3/UL Normal 4.5 - 10.8 [facility] Comment on above: Performed By: #### 2 34781 #### [facility],[address] [place] [address] 85608 CMP with eGFRon 09-10-2023 AGE 68 years Normal [facility] Comment on above: Performed By: #### 2 28928 #### [facility],[address] [place] [address] 17900 Albumin [Mass/Vol] 3.2 g/dL Low 3.4 - 5.0 [facility] Comment on above: Performed By: #### 2 89476 #### [facility],[address] [place], [place] [id number] Albumin/Globulin [Mass ratio] 0.8 {ratio} Low 0.9 - 1.6 [facility] Comment on above: Performed By: #### 2 76635 #### [facility],[address] [place] [address] 95207 ALK PHOS 93 U/L Normal 46 - 116 [facility] Comment on above: Performed By: #### 2 32511 #### [facility],[address] [place], [place] [id number] ALT [Catalytic activity/Vol] 27 U/L Normal 14 - 59 [facility] Comment on above: Performed By: #### 2 27654 #### [facility],[address] [place] [address] Anion gap [Moles/Vol] 10 mmol/L Normal 10 - 20 [facility] Comment on above: Performed By: #### 2 62208 #### [facility],[address] [place], [place] [id number] AST [Catalytic activity/Vol] 17 U/L Normal 13 - 39 [facility] Comment on above: Performed By: #### 2 73136 #### [facility],[address] [place], [place] [id number] B/C RATIO 8 ratio Normal 0 - 30 [facility] Comment on above: Performed By: #### 2 00058 #### [facility],[address] [place] [address] 60254 Bilirubin [Mass/Vol] 0.7 mg/dL Normal 0.2 - 1.0 [facility] Comment on above: Performed By: #### 2 75089 #### [facility],[address] [place] [address] 53283 Calcium [Mass/Vol] 9.3 mg/dL Normal 8.5 - 10.1 [facility] Comment on above: Performed By: #### 2 92712 #### [facility],[address] [place], [place] [id number] Chloride [Moles/Vol] 102 mmol/L Normal 98 - 107 [facility] Comment on above: Performed By: #### 2 13502 #### [facility],[address] [place], [place] [phone] CMP with eGFR Normal [facility] Comment on above: Result Comment: COMP REHENSIVE METABOLIC PANEL Performed By: #### 2 53611 #### [facility],[address] [place] [address] CO2 [Moles/Vol] 29.4 mmol/L Normal 21.0 - 32.0 [facility] Comment on above: Performed By: #### 2 03328 #### [facility],[address] [place] [address] Creatinine [Mass/Vol] 1.07 mg/dL High 0.55 - 1.02 [facility] Comment on above: Performed By: #### 2 47779 #### [facility],[address] [place] [address] eGFR 51 ML/MINUTE Low 60 - 999 [facility] Comment on above: Performed By: #### 2 46360 #### [facility],[address] [place], [place] [address] GFR/1.73 sq M.predicted among non-blacks MDRD (S/P/Bld) [Vol rate/Area] mL/min/{1.73_m2} Normal 60 - 999 [facility] Comment on above: Result Comment: ACCO RDING TO THE NATIONAL KIDNEY DISEASE EDUCATION PROGRAM(NKDE), A NORMAL eGFR IS A VALUE GREATER THAN OR EQUAL TO 60 ML/MIN/1.73 SQ METERS. CHRONIC KIDNEY DISEASE: <60mL/MIN/1.73 SQ METERS KIDNEY FAILURE: <15mL/MIN/1.73 SQ METERS THIS TEST SHOULD ONLY BE USED FOR PATIENTS 18 YEARS OF AGE AND OLDER. Performed By: #### 2 04719 #### [facility],[address] [place], [place] [id number] Globulin (S) [Mass/Vol] 4.2 g/dL High 1.5 - 3.8 [facility] Comment on above: Performed By: #### 2 41427 #### [facility],[address] [place] [address] 17289 Glucose [Mass/Vol] 119 mg/dL High 74 - 106 [facility] Comment on above: Performed By: #### 2 11603 #### [facility],[address] [place] [address] Potassium [Moles/Vol] 3.8 mmol/L Normal 3.5 - 5.1 [facility] Comment on above: Performed By: #### 2 92211 #### [facility],[address] [place] [address] 94416 Protein [Mass/Vol] 7.4 g/dL Normal 6.4 - 8.2 [facility] Comment on above: Performed By: #### 2 22386 #### [facility],[address] [place], [place] [id number] Sodium [Moles/Vol] 138 mmol/L Normal 136 - 145 [facility] Comment on above: Performed By: #### 2 33085 #### [facility],[address] [place] [address] Urea nitrogen [Mass/Vol] 9 mg/dL Normal 7 - 18 [facility] Comment on above: Performed By: #### 2 89745 #### [facility],[address] [place] [address] 00875 LIPASEon 09-10-2023 Lipase [Catalytic activity/Vol] 133.0 U/L Normal 73.0 - 393 [facility] Comment on above: Performed By: #### 2 58027 #### [facility],[address] [place] [address] 69401 URINALYSISon 09-10-2023 Amorphous NONE Normal [facility] Comment on above: Performed By: #### 2 20974 #### [facility],[address] [place] [address] 83992 Bacteria NONE Normal [facility] Comment on above: Performed By: #### 2 97509 #### [facility],[address] [place] [address] 16864 Bilirubin Ql (U) Negative Normal NORMAL: NEGATIVE [facility] Comment on above: Performed By: #### 2 03598 #### [facility],[address] [place] [address] 60756 Casts NONE Normal [facility] Comment on above: Performed By: #### 2 27995 #### [facility],[address] [place] [address] 34457 Clarity (U) clear Normal NORMAL: CLEAR [facility] Comment on above: Performed By: #### 2 62448 #### [facility],[address] [place] [address] 44826 Color (U) p.yel Normal NORMAL: YELLOW [facility] Comment on above: Performed By: #### 2 54210 #### [facility],[address] [place] [address] 97422 Crystals LM Nom (Urine sed) NONE Normal [facility] Comment on above: Performed By: #### 2 47270 #### [facility],[address] [place] [address] 18559 Epi Cells NONE Normal [facility] Comment on above: Performed By: #### 2 79336 #### [facility],[address] [place] [address] 02241 Glucose Ql (U) NORM Normal NORMAL: NORMAL [facility] Comment on above: Performed By: #### 2 76271 #### [facility],[address] [place] [address] 62813 Hemoglobin Ql (U) 25 Abnormal NORMAL: NEGATIVE [facility] Comment on above: Performed By: #### 2 09406 #### [facility],[address] [place] [address] 28852 Ketone Negative Normal NORMAL: NEGATIVE [facility] Comment on above: Performed By: #### 2 28524 #### [facility],[address] [place], [place] [address] Leukocytes Negative Normal NORMAL: NEGATIVE [facility] Comment on above: Performed By: #### 2 80625 #### [facility],[address] [place] [address] 99518 Mucous NONE Normal [facility] Comment on above: Performed By: #### 2 88981 #### [facility],[address] [place], [place] [address] Nitrite Ql (U) Negative Normal NORMAL: NEGATIVE [facility] Comment on above: Performed By: #### 2 93660 #### [facility],[address] [place] [address] pH (U) 8 [pH] Normal NORMAL: 5.0-8.0 [facility] Comment on above: Performed By: #### 2 14186 #### [facility],[address] [place] [address] Protein Ql (U) Negative Normal NORMAL: NEGATIVE [facility] Comment on above: Performed By: #### 2 68470 #### [facility],[address] [place], [place] [phone] Rbc 0-5 Normal 0-3/hpf [facility] Comment on above: Performed By: #### 2 29492 #### [facility],[address] [place] [address] Sp [place] 1.015 Normal NORMAL: 1.010-1.030 [facility] Comment on above: Performed By: #### 2 67243 #### [facility],[address] [place] [address] Specimen Type UNSPECIFIED Normal [facility] Comment on above: Performed By: #### 2 50351 #### [facility],[address] [place] [address] Urinalysis dipstick W Reflex Microscopic panel (U) SEE BELOW Normal [facility] Comment on above: Result Comment: MICR OSCOPIC Performed By: #### 2 71512 #### [facility],[address] [place] [address] Urobilinog NORM Normal NORMAL: NORMAL [facility] Comment on above: Performed By: #### 2 45533 #### [facility],[address] [place] [address] Wbc NONE Normal 0-5/hpf [facility] Comment on above: Performed By: #### 2 51334 #### [facility],[address] [place] [address] Yeast NONE Normal [facility] Comment on above: Performed By: #### 2 69025 #### [facility],[address] [place] [address] URINE CULTUREon 09-05-2023 Bacteria identified Cx Nom (U) 10,000 -<50,000 CFU/ml Normal urogenital candy [facility] UA DIP, URINE (POC)on 2022 BILIRUBIN UA (POCT) Negative Negative [facility] CLARITY UA (POCT) Clear [facility] COLOR UA (POCT) Yellow [facility] GLUCOSE UA (POCT) Negative Negative mg/dL [facility] Hemoglobin Ql (U) Trace-intact Abnormal Negative [facility] KETONE UA (POCT) Negative Negative mg/dL [facility] LEUKOCYTES UA (POCT) Trace Abnormal Negative [facility] NITRITE UA (POCT) Negative Negative [facility] PH UA (POCT) 7.0 4.5 - 8.0 [facility] Protein Ql (U) Negative Negative mg/dL [facility] SPECIFIC GRAVITY UA (POCT) 1.015 1.005 - 1.030 [facility] UROBILINOGEN UA (POCT) 0.2 E.U./dL Normal E.U./dL [facility] 2019 Novel Coronavirus (CoVI D-19), NAAon 07-11-2023 SARS-CoV-2 (COVID-19) RNA ELMER+probe Ql (Unsp spec) Not detected Normal Not Detected [facility] Comment on above: Result Comment: This nucleic acid amplification test was developed and its performance characteristics determined by [employer]. Nucleic acid amplification tests include RT-PCR and TMA. This test has not been FDA cleared or approved. This test has been authorized by FDA under an Emergency Use Authorization (EUA). This test is only authorized for the duration of time the declaration that circumstances exist justifying the authorization of the emergency use of in vitro diagnostic tests for detection of SARS-CoV-2 virus and/or diagnosis of COVID-19 infection under section 564(b)(1) of the Act, 21 U.S.C. 360bbb-3(b) (1), unless the authorization is terminated or revoked sooner. When diagnostic testing is negative, the possibility of a false negative result should be considered in the context of a patient's recent exposures and the presence of clinical signs and symptoms consistent with COVID-19. An individual without symptoms of COVID-19 and who is not shedding SARS-CoV-2 virus would expect to have a negative (not detected) result in this assay. Performed at: [address] [id number] Box Liner: Quin Alonzo MD, Phone: [phone] Performed By: #### L COV #### [place] [id number] UA DIP, URINE (POC)on 2022 BILIRUBIN UA (POCT) Negative Negative [facility] CLARITY UA (POCT) Clear [facility] COLOR UA (POCT) Yellow [facility] GLUCOSE UA (POCT) Negative Negative mg/dL [facility] Hemoglobin Ql (U) Trace-intact Abnormal Negative [facility] KETONE UA (POCT) Negative Negative mg/dL [facility] LEUKOCYTES UA (POCT) Negative Negative [facility] NITRITE UA (POCT) Negative Negative [facility] PH UA (POCT) 7.5 4.5 - 8.0 [facility] Protein Ql (U) Negative Negative mg/dL [facility] SPECIFIC GRAVITY UA (POCT) 1.010 1.005 - 1.030 [facility] UROBILINOGEN UA (POCT) 0.2 E.U./dL Normal E.U./dL [facility] UA DIP, URINE (POC)on 2022 BILIRUBIN UA (POCT) Negative Negative [facility] CLARITY UA (POCT) Clear [facility] COLOR UA (POCT) Yellow [facility] GLUCOSE UA (POCT) Negative Negative mg/dL [facility] Hemoglobin Ql (U) Trace-intact Abnormal Negative [facility] KETONE UA (POCT) Negative Negative mg/dL [facility] LEUKOCYTES UA (POCT) Negative Negative [facility] NITRITE UA (POCT) Negative Negative [facility] PH UA (POCT) 8.0 4.5 - 8.0 [facility] Protein Ql (U) Negative Negative mg/dL [facility] SPECIFIC GRAVITY UA (POCT) 1.010 1.005 - 1.030 [facility] UROBILINOGEN UA (POCT) 0.2 E.U./dL Normal E.U./dL [facility] CURINon 06-13-2023 LUIS Patient: LATESHA VILLAR [id number] [facility] [id number] : 1955 Age: 68 Sex F Lab NumbEr [id number] Requested by: JACI HOLLY Admitdate: 06/13/23 Source: UR Collected: 06/13/23 12:00 Site: Urine Received : 06/13/23 14:20 Culture, Urine FINAL 06/15/23 06:45 06/14/23 Performing Lab: [address] [address] Director: Eleazar Akins MD ---- AEROBIC CULTURE RESULTS: NO BACTERIAL GROWTH Normal [facility] Comment on above: Performed By: #### M IC2 #### [address] [address] UA DIP, URINE (POC)on 2022 BILIRUBIN UA (POCT) Negative Negative [facility] CLARITY UA (POCT) Clear [facility] COLOR UA (POCT) Yellow [facility] GLUCOSE UA (POCT) Negative Negative mg/dL [facility] Hemoglobin Ql (U) Negative Negative [facility] KETONE UA (POCT) Negative Negative mg/dL [facility] LEUKOCYTES UA (POCT) Negative Negative [facility] NITRITE UA (POCT) Negative Negative [facility] PH UA (POCT) 8.0 4.5 - 8.0 [facility] Protein Ql (U) Negative Negative mg/dL [facility] SPECIFIC GRAVITY UA (POCT) 1.015 1.005 - 1.030 [facility] UROBILINOGEN UA (POCT) 0.2 E.U./dL Normal E.U./dL [facility] UA DIP, URINE (POC)on 2022 BILIRUBIN UA (POCT) Negative Negative [facility] CLARITY UA (POCT) Clear [facility] COLOR UA (POCT) Yellow [facility] GLUCOSE UA (POCT) Negative Negative mg/dL [facility] Hemoglobin Ql (U) Trace-intact Abnormal Negative [facility] KETONE UA (POCT) Negative Negative mg/dL [facility] LEUKOCYTES UA (POCT) Negative Negative [facility] NITRITE UA (POCT) Negative Negative [facility] PH UA (POCT) 7.5 4.5 - 8.0 [facility] Protein Ql (U) Negative Negative mg/dL [facility] SPECIFIC GRAVITY UA (POCT) 1.010 1.005 - 1.030 [facility] UROBILINOGEN UA (POCT) 0.2 E.U./dL Normal E.U./dL [facility] CT CHEST WO IVCONon 04-11-20 [facility] UA DIP, URINE (POC)on 2022 BILIRUBIN UA (POCT) Negative Negative [facility] CLARITY UA (POCT) Clear [facility] COLOR UA (POCT) Yellow [facility] GLUCOSE UA (POCT) Negative Negative mg/dL [facility] HEMOGLOBIN/BLOOD UA (POCT) Negative Negative [facility] KETONE UA (POCT) Negative Negative mg/dL [facility] LEUKOCYTES UA (POCT) Negative Negative [facility] NITRITE UA (POCT) Negative Negative [facility] PH UA (POCT) 8.5 Abnormal 4.5 - 8.0 [facility] Protein Ql (U) 30 mg/dL Abnormal Negative mg/dL [facility] SPECIFIC GRAVITY UA (POCT) 1.015 1.005 - 1.030 [facility] UROBILINOGEN UA (POCT) 0.2 E.U./dL Normal E.U./dL [facility] FEMALE PELVIS TRANSVAGon 03-13-2023 Radiology Result ACTIONABLE Abnormal [facility] UA DIP, URINE (POC)on 2022 BILIRUBIN UA (POCT) Negative Negative [facility] CLARITY UA (POCT) Clear [facility] COLOR UA (POCT) Yellow [facility] GLUCOSE UA (POCT) Negative Negative mg/dL [facility] HEMOGLOBIN/BLOOD UA (POCT) Trace-lysed Abnormal Negative [facility] KETONE UA (POCT) Negative Negative mg/dL [facility] LEUKOCYTES UA (POCT) Negative Negative [facility] NITRITE UA (POCT) Negative Negative [facility] PH UA (POCT) 8.5 Abnormal 4.5 - 8.0 [facility] Protein Ql (U) Negative Negative mg/dL [facility] SPECIFIC GRAVITY UA (POCT) 1.010 1.005 - 1.030 [facility] UROBILINOGEN UA (POCT) 0.2 E.U./dL Normal E.U./dL [facility] No Panel Informationon 01-20 [facility] DIAG W [place] BILATon 02-2 [facility] US BREAST LTD LTon [facility] XR MANDIBLE 4V PA/LINDA/BOT H OBLon 11-05-2022 [facility] TROY SCREENINGon 10-07-2022 [facility] XR LUMBAR GENERAL 3V AP/LAT/ L5-S1on 09-29-2022 [facility] XR Lumbar spine 3 Viewson IMPRESSION: Lumbar spine degenerative changes with multilevel disc space narrowing. Professor Of Criminal Justice: LASHAWN Transcribe Date/Time: Sep 29 2022 4:24P Dictated by : LOKESH ALEJANDRA MD This examination was interpreted and the report reviewed and electronically signed by: LOKESH ALEJANDRA MD on Sep 29 2022 4:26PM [facility] DIVISION OF RADIOLOGY * * *Final Report* * * DATE OF EXAM: Sep 29 2022 12:17PM WOX 5228 - XR LUMBAR 3V AP/LAT/L5-S1 / PROCEDURE REASON: Lumbar pain * * * * Physician Interpretation * * * * EXAM TITLE: XR LUMBAR 3V AP/LAT/L5-S1 EXAM DATE/TIME: 09/29/2022 12:17 PM COMPARISON: X-ray lumbar spine on 11/05/2021 CLINICAL INDICATION/HISTORY: Abdominal pain. TECHNIQUE: AP, lateral and cone down lateral views of the lumbar spine are presented. FINDINGS: There are five dfn-dun-upunuvh lumbar vertebrae. No acute fractures identified. There is left-sided curvature, seen on AP view. Grade 1 L5 on S1 anterolisthesis is demonstrated, with L5 pars defect. L2-3 and L5-S1 disc space narrowing is noted, with endplate sclerosis. There is moderate osteophyte formation. Kissing spine seen on lateral view. The bones appear somewhat osteopenic. DIVISION OF RADIOLOGY Provider, [facility] - 09/29/2022 * * *Final Report* * * DATE OF EXAM: Sep 29 2022 12:17PM WOX 5228 - XR LUMBAR 3V AP/LAT/L5-S1 / PROCEDURE REASON: Lumbar pain * * * * Physician Interpretation * * * * EXAM TITLE: XR LUMBAR 3V AP/LAT/L5-S1 EXAM DATE/TIME: 09/29/2022 12:17 PM COMPARISON: X-ray lumbar spine on 11/05/2021 CLINICAL INDICATION/HISTORY: Abdominal pain. TECHNIQUE: AP, lateral and cone down lateral views of the lumbar spine are presented. FINDINGS: There are five ocz-upg-uwlwxio lumbar vertebrae. No acute fractures identified. There is left-sided curvature, seen on AP view. Grade 1 L5 on S1 anterolisthesis is demonstrated, with L5 pars defect. L2-3 and L5-S1 disc space narrowing is noted, with endplate sclerosis. There is moderate osteophyte formation. Kissing spine seen on lateral view. The bones appear somewhat osteopenic. IMPRESSION IMPRESSION: Lumbar spine degenerative changes with multilevel disc space narrowing. Professor Of Criminal Justice: LASHAWN Transcribe Date/Time: Sep 29 2022 4:24P Dictated by : LOKESH ALEJANDRA MD This examination was interpreted and the report reviewed and electronically signed by: LOKESH ALEJANDRA MD on Sep 29 2022 4:26PM EST [facility] Radiology Study observation (narrative) [facility] XR Lumbar spine 3 ViewsOrder ed By: [facility] Provider on 09-29-2022 [facility] XR Ribs - bilateral 4 Views and Chest PAon 09-09-2022 IMPRESSION: No evide nce of acute rib fracture. Professor Of Criminal Justice: PSCB Transcribe Date/Time: Sep 09 2022 10:32A Dictated by : LOKESH ALEJANDRA MD This examination was interpreted and the report reviewed and electronically signed by: LOKESH ALEJANDRA MD on Sep 09 2022 10:35AM EST DIVISION OF RADIOLOGY * * *Final Report* * * DATE OF EXAM: Sep 07 2022 12:21PM WOX 5242 - XR RIBS 4V ARAMIS+UPPER/LOWER CHEST / PROCEDURE REASON: Rib pain * * * * Physician Interpretation * * * * XR RIBS 4V ARAMIS+UPPER/LOWER CHEST EXAM DATE/TIME: 09/07/2022 12:21 PM COMPARISON: None. CLINICAL INDICATION/HISTORY: Bilateral rib pain. TECHNIQUE: AP views centered high and low and oblique view of bilateral ribs are presented for interpretation. PA view of the chest is also present. FINDINGS: There is no evidence of acute rib fracture. There is no pneumothorax or pleural effusion. No consolidative opacities in the lungs. There are foci of calcified granulomas. DIVISION OF RADIOLOGY Provider, [facility] - 09/09/2022 * * *Final Report* * * DATE OF EXAM: Sep 07 2022 12:21PM WOX 5242 - XR RIBS 4V ARAMIS+UPPER/LOWER CHEST / PROCEDURE REASON: Rib pain * * * * Physician Interpretation * * * * XR RIBS 4V ARAMIS+UPPER/LOWER CHEST EXAM DATE/TIME: 09/07/2022 12:21 PM COMPARISON: None. CLINICAL INDICATION/HISTORY: Bilateral rib pain. TECHNIQUE: AP views centered high and low and oblique view of bilateral ribs are presented for interpretation. PA view of the chest is also present. FINDINGS: There is no evidence of acute rib fracture. There is no pneumothorax or pleural effusion. No consolidative opacities in the lungs. There are foci of calcified granulomas. IMPRESSION IMPRESSION: No evidence of acute rib fracture. Professor Of Criminal Justice: PSCB Transcribe Date/Time: Sep 09 2022 10:32A Dictated by : LOKESH ALEJANDRA MD This examination was interpreted and the report reviewed and electronically signed by: LOKESH ALEJANDRA MD on Sep 09 2022 10:35AM EST [facility] XR Ribs - bilateral 4 Views and Chest PAOrdered By: [facility] Provider on 09-09-2022 [facility] UA DIP, URINE (POC)on 2021 BILIRUBIN UA (POCT) Negative Negative [facility] CLARITY UA (POCT) Clear [facility] COLOR UA (POCT) Yellow [facility] GLUCOSE UA (POCT) Negative Negative mg/dL [facility] HEMOGLOBIN/BLOOD UA (POCT) Trace-intact Abnormal Negative [facility] KETONE UA (POCT) Negative Negative mg/dL [facility] LEUKOCYTES UA (POCT) Negative Negative [facility] NITRITE UA (POCT) Negative Negative [facility] PH UA (POCT) 8.0 4.5 - 8.0 [facility] Protein Ql (U) Negative Negative mg/dL [facility] SPECIFIC GRAVITY UA (POCT) 1.015 1.005 - 1.030 [facility] UROBILINOGEN UA (POCT) 0.2 E.U./dL Normal E.U./dL [facility] XR Ribs - bilateral 4 Views and Chest PAon 09-07-2022 Radiology Study observation (narrative) [facility] INFLUENZA A AND B MOLECULARo n 09-05-2022 INFLUENZA A AND B MOLECULAR INFLUENZA A MOLECULAR Negative Negative INFLUENZA B MOLECULAR Negative Negative Normal Negative [facility] Comment on above: Performed By: #### [id number] #### [address] SARS-COV-2, PCRon 09-05-2022 SARS-CoV-2 (COVID-19) RNA ELMER+probe Ql (Unsp spec) SARS-COV-2, PCR Negative Negative Negative results do not preclude SARS-CoV-2 infection and should not be used as the sole basis for treatment or other patient management decisions. Negative results must be combined with clinical observations, patient history, and epidemiological information. The Xpert Xpress CoV-2/Flu/RSV plus test is only for use under the Food and Drug Administration's Emergency Use Authorization. Results are for the simultaneous detection and differentiation of SARS-CoV-2, influenza A virus, influenza B virus and RSV RNA which are generally detectable in upper respiratory specimens during the acute phase of infection. Normal [facility] Comment on above: Performed By: #### [id number] #### KAROL [id number] UA DIP, URINE (POC)on 2021 BILIRUBIN UA (POCT) Negative Negative [facility] CLARITY UA (POCT) Clear [facility] COLOR UA (POCT) Yellow [facility] GLUCOSE UA (POCT) Negative Negative mg/dL [facility] HEMOGLOBIN/BLOOD UA (POCT) Trace-intact Abnormal Negative [facility] KETONE UA (POCT) Negative Negative mg/dL [facility] LEUKOCYTES UA (POCT) Trace Abnormal Negative [facility] NITRITE UA (POCT) Negative Negative [facility] PH UA (POCT) 7.5 4.5 - 8.0 [facility] Protein Ql (U) Negative Negative mg/dL [facility] SPECIFIC GRAVITY UA (POCT) 1.015 1.005 - 1.030 [facility] UROBILINOGEN UA (POCT) 0.2 E.U./dL Normal E.U./dL [facility] US THYROID/PARATHYROIDon [facility] DXA-AXIAL SKELETONon 022 [facility] UA DIP, URINE (POC)on 2021 BILIRUBIN UA (POCT) Negative Negative [facility] CLARITY UA (POCT) [facility] COL[facility] UA (POCT) Yellow [facility] GLUCOSE UA (POCT) Negative Negative mg/dL [facility] HEMOGLOBIN/BLOOD UA (POCT) Small Abnormal Negative [facility] KETONE UA (POCT) Negative Negative mg/dL [facility] LEUKOCYTES UA (POCT) Large Abnormal Negative [facility] NITRITE UA (POCT) Positive Abnormal Negative [facility] PH UA (POCT) 7.0 4.5 - 8.0 [facility] Protein Ql (U) Negative Negative mg/dL [facility] SPECIFIC GRAVITY UA (POCT) 1.015 1.005 - 1.030 [facility] UROBILINOGEN UA (POCT) 0.2 E.U./dL Normal E.U./dL [facility] XR ELBOW SPECIAL VIEWS AP/LA T/OTHER LEFTon 05-24-2022 [facility] XR Elbow - left AP and Later al and obliqueon 05-24-2022 IMPRESSION: No acute fracture or dislocation of the left elbow Professor Of Criminal Justice: PSC Transcribe Date/Time: May 24 2022 10:10A Dictated by : SAADIA MARQUEZ MD This examination was interpreted and the report reviewed and electronically signed by: SAADIA MARQUEZ MD on May 24 2022 10:12AM EST DIVISION OF RADIOLOGY * * *Final Report* * * DATE OF EXAM: May 24 2022 9:46AM WOX 5324 - XR ELBOW 3V AP/LAT/OTHER LT / PROCEDURE REASON: Left elbow pain * * * * Physician Interpretation * * * * EXAMINATION: XR ELBOW 3V AP/LAT/OTHER LT CLINICAL HISTORY: Left elbow pain Technique: XR ELBOW 3V AP/LAT/OTHER LT -- LEFT with 3 views on 3 images Comparison: None RESULT: No acute fracture or dislocation. Joint spaces are maintained. DIVISION OF RADIOLOGY Provider, [facility] - 05/24/2022 * * *Final Report* * * DATE OF EXAM: May 24 2022 9:46AM WOX 5324 - XR ELBOW 3V AP/LAT/OTHER LT / PROCEDURE REASON: Left elbow pain * * * * Physician Interpretation * * * * EXAMINATION: XR ELBOW 3V AP/LAT/OTHER LT CLINICAL HISTORY: Left elbow pain Technique: XR ELBOW 3V AP/LAT/OTHER LT -- LEFT with 3 views on 3 images Comparison: None RESULT: No acute fracture or dislocation. Joint spaces are maintained. IMPRESSION IMPRESSION: No acute fracture or dislocation of the left elbow Professor Of Criminal Justice: PSCB Transcribe Date/Time: May 24 2022 10:10A Dictated by : SAADIA MARQUEZ MD This examination was interpreted and the report reviewed and electronically signed by: SAADIA MARQUEZ MD on May 24 2022 10:12AM EST [facility] Radiology Study observation (narrative) [facility] XR Elbow - left AP and Later al and obliqueOrdered By: Ccf Provider on 05-24-2022 [facility] UA DIP, URINE (POC)on 2021 BILIRUBIN UA (POCT) Negative Negative [facility] CLARITY UA (POCT) [facility] COLOR UA (POCT) Yellow [facility] GLUCOSE UA (POCT) Negative Negative mg/dL [facility] HEMOGLOBIN/BLOOD UA (POCT) Trace-intact Abnormal Negative [facility] KETONE UA (POCT) Negative Negative mg/dL [facility] LEUKOCYTES UA (POCT) Negative Negative [facility] NITRITE UA (POCT) Negative Negative [facility] PH UA (POCT) 7.0 4.5 - 8.0 [facility] Protein Ql (U) Negative Negative mg/dL [facility] SPECIFIC GRAVITY UA (POCT) 1.010 1.005 - 1.030 [facility] UROBILINOGEN UA (POCT) 0.2 E.U./dL Normal E.U./dL [facility] UA DIP, URINE (POC)on 2021 BILIRUBIN UA (POCT) Negative Negative [facility] CLARITY UA (POCT) Clear [facility] COLOR UA (POCT) Yellow [facility] GLUCOSE UA (POCT) Negative Negative mg/dL [facility] HEMOGLOBIN/BLOOD UA (POCT) Negative Negative [facility] KETONE UA (POCT) Negative Negative mg/dL [facility] LEUKOCYTES UA (POCT) Negative Negative [facility] NITRITE UA (POCT) Negative Negative [facility] PH UA (POCT) 8.5 Abnormal 4.5 - 8.0 [facility] Protein Ql (U) Negative Negative mg/dL [facility] SPECIFIC GRAVITY UA (POCT) 1.015 1.005 - 1.030 [facility] UROBILINOGEN UA (POCT) 0.2 E.U./dL Normal E.U./dL [facility] UA DIP, URINE (POC)on 2021 BILIRUBIN UA (POCT) Negative Negative [facility] CLARITY UA (POCT) [facility] COLOR UA (POCT) Yellow [facility] GLUCOSE UA (POCT) Negative Negative mg/dL [facility] HEMOGLOBIN/BLOOD UA (POCT) Trace-intact Abnormal Negative [facility] KETONE UA (POCT) Negative Negative mg/dL [facility] LEUKOCYTES UA (POCT) Trace Abnormal Negative [facility] NITRITE UA (POCT) Negative Negative [facility] PH UA (POCT) 8.5 Abnormal 4.5 - 8.0 [facility] Protein Ql (U) Negative Negative mg/dL [facility] SPECIFIC GRAVITY UA (POCT) 1.015 1.005 - 1.030 [facility] UROBILINOGEN UA (POCT) 0.2 E.U./dL Normal E.U./dL [facility] SHAHEED BY IFA SCREENon 03-24-20 Nuclear Ab IF (S) [Titer] Negative Negative [facility] C-REACTIVE PROTEIN (CRP)on 0 03-24-2022 CRP [Mass/Vol] mg/L <0.9 mg/dL [facility] RHEUMATOID FACTOR BLon 03-24 Rheumatoid factor Qn [IU]/mL <16 IU/mL [facility] ESR Westergren method (Bld) [Velocity]on 03-23-2022 ESR (Bld) [Velocity] 2 mm/h 0 - 20 mm/hr [facility] UA DIP, URINE (POC)on 2021 BILIRUBIN UA (POCT) Negative Negative [facility] CLARITY UA (POCT) Clear [facility] COLOR UA (POCT) Yellow [facility] GLUCOSE UA (POCT) Negative Negative mg/dL [facility] HEMOGLOBIN/BLOOD UA (POCT) Trace-intact Abnormal Negative [facility] KETONE UA (POCT) Negative Negative mg/dL [facility] LEUKOCYTES UA (POCT) Trace Abnormal Negative [facility] NITRITE UA (POCT) Negative Negative [facility] PH UA (POCT) 7.5 4.5 - 8.0 [facility] Protein Ql (U) Negative Negative mg/dL [facility] SPECIFIC GRAVITY UA (POCT) 1.015 1.005 - 1.030 [facility] UROBILINOGEN UA (POCT) 0.2 E.U./dL Normal E.U./dL [facility] URINE CULTUREon 02-28-2022 Bacteria identified Cx Nom (U) 10,000 -<50,000 CFU/ml Normal urogenital candy [facility] UA DIP, URINE (POC)on 2021 BILIRUBIN UA (POCT) Negative Negative [facility] CLARITY UA (POCT) Clear [facility] COLOR UA (POCT) Yellow [facility] GLUCOSE UA (POCT) Negative Negative mg/dL [facility] HEMOGLOBIN/BLOOD UA (POCT) Trace-lysed Abnormal Negative [facility] KETONE UA (POCT) Negative Negative mg/dL [facility] LEUKOCYTES UA (POCT) Negative Negative [facility] NITRITE UA (POCT) Negative Negative [facility] PH UA (POCT) 7.5 4.5 - 8.0 [facility] Protein Ql (U) Negative Negative mg/dL [facility] SPECIFIC GRAVITY UA (POCT) 1.010 1.005 - 1.030 [facility] UROBILINOGEN UA (POCT) 0.2 E.U./dL Normal E.U./dL [facility] XR CERV OTHER 4V AP/LAT/OBLo n 02-14-2022 [facility] XR Cervical spine AP and Lat eral and obliqueon 02-14-2022 IMPRESSION: DEGENERATIVE CHANGE AND ALIGNMENT ABNORMALITIES DESCRIBED. REVERSAL OF THE NORMAL LORDOSIS Professor Of Criminal Justice: LASHAWN Transcribe Date/Time: Feb 14 2022 1:16P Dictated by : NATALYA CEDILLO MD This examination was interpreted and the report reviewed and electronically signed by: NATALYA CEDILLO MD on Feb 14 2022 1:19PM EST ZZZ_DO_NOT_USE _DIVISION OF RADIOLOGY * * *Final Report* * * DATE OF EXAM: Feb 14 2022 10:35AM WOX 5311 - XR CERVICAL 4V AP/LAT/OBL / PROCEDURE REASON: Neck pain * * * * Physician Interpretation * * * * Examination: XR CERVICAL 4V AP/LAT/OBL History: Neck pain Technique: XR CERVICAL 4V AP/LAT/OBL Comparison: 08/07/2018 RESULT: Reversal of the normal lordosis in the mid and lower cervical region. Mild anterior position of C4 on C5. Moderate C5-6 and C6-7 disc space narrowing and osteophytosis. No fracture or prevertebral swelling. Moderate foraminal encroachment on the left at C5-6 and C6-7 ZZZ_DO_NOT_USE _DIVISION OF RADIOLOGY Provider, [facility] - 02/14/2022 * * *Final Report* * * DATE OF EXAM: Feb 14 2022 10:35AM WOX 5311 - XR CERVICAL 4V AP/LAT/OBL / PROCEDURE REASON: Neck pain * * * * Physician Interpretation * * * * Examination: XR CERVICAL 4V AP/LAT/OBL History: Neck pain Technique: XR CERVICAL 4V AP/LAT/OBL Comparison: 08/07/2018 RESULT: Reversal of the normal lordosis in the mid and lower cervical region. Mild anterior position of C4 on C5. Moderate C5-6 and C6-7 disc space narrowing and osteophytosis. No fracture or prevertebral swelling. Moderate foraminal encroachment on the left at C5-6 and C6-7 IMPRESSION IMPRESSION: DEGENERATIVE CHANGE AND ALIGNMENT ABNORMALITIES DESCRIBED. REVERSAL OF THE NORMAL LORDOSIS Professor Of Criminal Justice: PSCB Transcribe Date/Time: Feb 14 2022 1:16P Dictated by : NATALYA CEDILLO MD This examination was interpreted and the report reviewed and electronically signed by: NATALYA CEDILLO MD on Feb 14 2022 1:19PM EST [facility] Radiology Study observation (narrative) [facility] XR Cervical spine AP and Lat eral and obliqueOrdered By: Ccf Provider on 02-14-2022 [facility] UA DIP, URINE (POC)on 2021 BILIRUBIN UA (POCT) Negative Negative [facility] CLARITY UA (POCT) Clear [facility] COLOR UA (POCT) Yellow [facility] GLUCOSE UA (POCT) Negative Negative mg/dL [facility] HEMOGLOBIN/BLOOD UA (POCT) Trace-intact Abnormal Negative [facility] KETONE UA (POCT) Negative Negative mg/dL [facility] LEUKOCYTES UA (POCT) Small Abnormal Negative [facility] NITRITE UA (POCT) Negative Negative [facility] PH UA (POCT) 7.5 4.5 - 8.0 [facility] Protein Ql (U) Negative Negative mg/dL [facility] SPECIFIC GRAVITY UA (POCT) 1.010 1.005 - 1.030 [facility] UROBILINOGEN UA (POCT) 0.2 E.U./dL Normal E.U./dL [facility] UA DIP, URINE (POC)on 2021 BILIRUBIN UA (POCT) Negative Negative [facility] CLARITY UA (POCT) Clear [facility] COLOR UA (POCT) Yellow [facility] GLUCOSE UA (POCT) Negative Negative mg/dL [facility] HEMOGLOBIN/BLOOD UA (POCT) Small Abnormal Negative [facility] KETONE UA (POCT) Negative Negative mg/dL [facility] LEUKOCYTES UA (POCT) Negative Negative [facility]A (POCT) Negative Negative [facility] PH UA (POCT) 7.5 4.5 - 8.0 [facility] Protein Ql (U) Negative Negative mg/dL [facility] SPECIFIC GRAVITY UA (POCT) 1.010 1.005 - 1.030 [facility] UROBILINOGEN UA (POCT) 0.2 E.U./dL Normal E.U./dL [facility] XR Chest PA and Lateralon IMPRESSION: No acute radiographic abnormality. Professor Of Criminal Justice: PSCB Transcribe Date/Time: Dec 04 2021 10:56A Dictated by : JOSEE SAAVEDRA MD This examination was interpreted and the report reviewed and electronically signed by: JOSEE SAAVEDRA MD on Dec 04 2021 10:57AM [facility] DIVISION OF RADIOLOGY * * *Final Report* * * DATE OF EXAM: Dec 04 2021 10:21AM WOX 5291 - XR CHEST 2V FRONTAL/LAT / PROCEDURE REASON: Abnormal x-ray of lung * * * * Physician Interpretation * * * * EXAMINATION: XR CHEST 2V FRONTAL/LAT Clinical History: Follow up from possible nodule seen in rib x-ray in Oct. Denies and current chest complaints. Abnormal x-ray of lung . MQ: XC2_5 Comparison: 07/12/2021 RESULT: Lines, tubes, and devices: none Lungs and pleura: No consolidation. No lung mass. No pleural effusion. RIGHT lung base calcified granuloma again seen. Possible calcified granuloma lateral LEFT midlung is unchanged. Cardiomediastinal silhouette: Normal. Other: - DIVISION OF RADIOLOGY Provider, [facility] - 12/04/2021 * * *Final Report* * * DATE OF EXAM: Dec 04 2021 10:21AM WOX 5291 - XR CHEST 2V FRONTAL/LAT / PROCEDURE REASON: Abnormal x-ray of lung * * * * Physician Interpretation * * * * EXAMINATION: XR CHEST 2V FRONTAL/LAT Clinical History: Follow up from possible nodule seen in rib x-ray in Oct. Denies and current chest complaints. Abnormal x-ray of lung . MQ: XC2_5 Comparison: 07/12/2021 RESULT: Lines, tubes, and devices: none Lungs and pleura: No consolidation. No lung mass. No pleural effusion. RIGHT lung base calcified granuloma again seen. Possible calcified granuloma lateral LEFT midlung is unchanged. Cardiomediastinal silhouette: Normal. Other: - IMPRESSION IMPRESSION: No acute radiographic abnormality. Professor Of Criminal Justice: PSCB Transcribe Date/Time: Dec 04 2021 10:56A Dictated by : JOSEE SAAVEDRA MD This examination was interpreted and the report reviewed and electronically signed by: JOSEE SAAVEDRA MD on Dec 04 2021 10:57AM EST [facility] Radiology Study observation (narrative) [facility] XR Chest PA and LateralOrder ed By: Ccf [facility]AGSPINE[facility] TERRI VILLAR ([id number]) 1955 F Date Time Provider Department 11/17/21 BORA MONAHAN AGSPINE3 During your visit today, we recorded the following information about you: Fernanda Avelar 11/17/2021 12:57 PM Signed Received referral from Dr De Luna for patient to be seen for DDD (degenerative disc disease), cervical Please call and schedule patient in [place] with Dr Hero Avelar [employer] Supervisor Tool Dispatcher to Dr Matos, Dr Morejon, [facility] [address] [place] [address] P: [phone] ext [phone] F: [phone] [email or web address] Gisela Henry 11/17/2021 1:59 PM Signed LVM for patient to return call and schedule with Dr Monahan. Gisela Henry 11/19/2021 9:02 AM Signed Left 2nd for patient and set [place] message letting her know to return call to schedule. Gisela Henry Allergies As of Date: 11/17/2021 Noted Allergy Reaction AMOXICILLIN 11/10/2008 9 - Itching ASA (SALICYLATES) 11/10/2008 9 - Itching CODEINE 11/10/2008 9 - Itching CORTIZONE-10 (HYDROCORTISONE) 11/10/2008 9 - Itching CYMBALTA (DULOXETINE) 11/15/2018 5 - Intolerance Comments: One pill: bruning all over dolibid [Other] 11/10/2008 9 - Itching DURICEF (CEFADROXIL) 11/10/2008 9 - Itching DYE 04/05/2019 12 - Shortness of Breath Comments: Ct dye. Including rash ENTEX LA (PHENYLEPHRINE-GUAIFENE S*11/10/2008 9 - Itching ERYTHROMYCIN 11/10/2008 9 - Itching FLU VAC 2015 (65 UP)-MF59C(PF) 06/30/2021 12 - Shortness of Breath KEFLEX (CEPHALEXIN) 11/10/2008 9 - Itching LEVAQUIN (LEVOFLOXACIN) 01/23/2021 14 - Other: See Comments Comments: itching MACROBID (NITROFURANTOIN MONOHYD/*01/23/2021 14 - Other: See Comments Comments: Fast heart rate MOBIC (MELOXICAM) 11/21/2017 9 - Itching MORPHINE 11/10/2008 9 - Itching PENICILLINS 11/10/2008 4 - Hives PEPCID (FAMOTIDINE) 08/03/2021 8 - GI Upset PREDNISOLONE 09/07/2020 14 - Other: See Comments Comments: Elevated blood pressure. PRILOSEC (OMEPRAZOLE) 08/03/2021 9 - Itching SEPTRA (SULFAMETHOXAZOLE-TRIME THO*11/10/2008 4 - Hives SULFA (SULFONAMIDE ANTIBIOTICS) 11/10/2008 4 - Hives TETRACYCLINE 09/01/2021 4 - Hives Comments: Can take doxycycline Date Reviewed: 11/05/2021 Reviewed by: Anum Pacheco MA - Fully Assessed Reason for Visit: New Patient [172] Prescriptions as of 11/19/2021 - famotidine (PEPCID) 20 mg tablet Take 1 tablet by mouth twice daily. - lisinopril (ZESTRIL, PRINIVIL) 40 mg tablet Take 1 tablet by mouth once daily. - atorvastatin (LIPITOR) 10 mg tablet Take 1 tablet by mouth daily at bedtime. For cholesterol. - acetaminophen (TYLENOL ARTHRITIS ORAL) Take by mouth. - Multivitamin capsule Take 1 capsule by mouth once daily. Problem List As Of Date 11/17/2021 Noted Resolved Routine General Medical Examination at [facility]*11/10/2008 05/15/2014 Osteoarthritis [M19.90] HTN (hypertension) [I10] 04/05/2017 MTHFR mutation (HCC) [Z15.89] DDD (degenerative disc disease), cervical [M50.* Mixed hyperlipidemia [E78.2] 04/05/2017 Thyroid nodule [E04.1] 09/26/2017 GERD without esophagitis [K21.9] 06/28/2019 Anxiety [F41.9] 06/28/2019 History of COVID-19 [Z86.16] 07/12/2021 Gallstones [K80.20] 11/16/2021 Lung nodule [R91.1] 11/16/2021 Encounter Status:Closed by FERNANDA AVELAR on 11/17/21 Normal [facility] XR Lumbar spine 3 Viewson IMPRESSION: L5-S1 spondylolisthesis and likely bilateral L5 spondylolysis. L2-3 and L5-S1 degenerative disc disease. Lower lumbar facet degenerative findings. Mild levoscoliosis Professor Of Criminal Justice: [facility] Transcribe Date/Time: Nov 05 2021 2:49P Dictated by : MAHOGANY JADE MD This examination was interpreted and the report reviewed and electronically signed by: MAHOGANY JADE MD on Nov 05 2021 2:50PM [facility] DIVISION OF RADIOLOGY * * *Final Report* * * DATE OF EXAM: Nov 05 2021 2:47PM WOX 5228 - XR LUMBAR 3V AP/LAT/L5-S1 / PROCEDURE REASON: multiple diagnoses * * * * Physician Interpretation * * * * Lumbar spine History: Lower abdominal pain DDD (degenerative disc disease), lumbar Findings: AP and lateral views were performed. Mild levoscoliosis centered at the upper lumbar spine. Vertebral bodies and pedicles are intact. Mild narrowing L2-3 disc space with endplate spurring. There is narrowing L5-S1 disc space with grade 1-2 spondylolisthesis. There is likely bilateral L5 spondylolysis. Lower lumbar facet hypertrophic spurring Counting reference: Lumbosacral junction. For the purposes of this report, L4-5 is considered the level of the iliac crest and there are 5 lumbar-type vertebrae. Anatomic Variants: None. DIVISION OF RADIOLOGY [facility] * * *Final Report* * * DATE OF EXAM: Nov 05 2021 2:47PM WOX 5228 - XR LUMBAR 3V AP/LAT/L5-S1 / PROCEDURE REASON: multiple diagnoses * * * * Physician Interpretation * * * * Lumbar spine History: Lower abdominal pain DDD (degenerative disc disease), lumbar Findings: AP and lateral views were performed. Mild levoscoliosis centered at the upper lumbar spine. Vertebral bodies and pedicles are intact. Mild narrowing L2-3 disc space with endplate spurring. There is narrowing L5-S1 disc space with grade 1-2 spondylolisthesis. There is likely bilateral L5 spondylolysis. Lower lumbar facet hypertrophic spurring Counting reference: Lumbosacral junction. For the purposes of this report, L4-5 is considered the level of the iliac crest and there are 5 lumbar-type vertebrae. Anatomic Variants: None. IMPRESSION IMPRESSION: L5-S1 spondylolisthesis and likely bilateral L5 spondylolysis. L2-3 and L5-S1 degenerative disc disease. Lower lumbar facet degenerative findings. Mild levoscoliosis Professor Of Criminal Justice: [facility] Transcribe Date/Time: Nov 05 2021 2:49P Dictated by : MAHOGANY JADE MD This examination was interpreted and the report reviewed and electronically signed by: MAHOGANY JADE MD on Nov 05 2021 2:50PM EST [facility] Radiology Study observation (narrative) [facility] XR Lumbar spine 3 ViewsOrder ed By: Ccf Provider on 11-05-2021 [facility] XR Scapula - right AP and La teralon 10-27-2021 IMPRESSION: Mild glenohumeral osteoarthritis. Professor Of Criminal Justice: PIERCEB Transcribe Date/Time: Oct 27 2021 10:59A Dictated by : MARINO PHILLIP MD This examination was interpreted and the report reviewed and electronically signed by: MARINO PHILLIP MD on Oct 27 2021 11:00AM EST DIVISION OF RADIOLOGY * * *Final Report* * * DATE OF EXAM: Oct 27 2021 10:54AM WOX 5248 - XR SCAPULA 2V AP/LAT RT / PROCEDURE REASON: Pain of right scapula * * * * Physician Interpretation * * * * CLINICAL INDICATION: Scapular pain TECHNIQUE: Two-view radiographic study of the right scapula COMPARISON: None FINDINGS: No acute fracture or dislocation identified. No radiographic evidence of destructive osseous lesion. Mild glenohumeral degenerative changes with joint space narrowing and small humeral head marginal osteophyte formation. DIVISION OF RADIOLOGY Provider, [facility] - 10/27/2021 * * *Final Report* * * DATE OF EXAM: Oct 27 2021 10:54AM WOX 5248 - XR SCAPULA 2V AP/LAT RT / PROCEDURE REASON: Pain of right scapula * * * * Physician Interpretation * * * * CLINICAL INDICATION: Scapular pain TECHNIQUE: Two-view radiographic study of the right scapula COMPARISON: None FINDINGS: No acute fracture or dislocation identified. No radiographic evidence of destructive osseous lesion. Mild glenohumeral degenerative changes with joint space narrowing and small humeral head marginal osteophyte formation. IMPRESSION IMPRESSION: Mild glenohumeral osteoarthritis. Professor Of Criminal Justice: LASHAWN Transcribe Date/Time: Oct 27 2021 10:59A Dictated by : MARINO PHILLIP MD This examination was interpreted and the report reviewed and electronically signed by: MARINO PHILLIP MD on Oct 27 2021 11:00AM EST [facility] Radiology Study observation (narrative) [facility] Scapula - right AP and La teralOrdered By: Ccf Provider on 10-27-2021 [facility] No Panel Informationon 10-13 Radiology Study observation (narrative) [facility] Knee - right 4 Viewson IMPRESSION: 1. No acute findings. Maintained joint spaces. 2. Osteopenia. Deconditioned musculature. Professor Of Criminal Justice: LASHAWN Transcribe Date/Time: Oct 13 2021 10:59A Dictated by : CEAZR VELAZQUEZ MD This examination was interpreted and the report reviewed and electronically signed by: CEZAR VELAZQUEZ MD on Oct 13 2021 11:03AM [facility] DIVISION OF RADIOLOGY * * *Final Report* * * DATE OF EXAM: Oct 13 2021 10:20AM WOX 5203 - XR KNEE 4V AP/PA BOTH+LAT/RIMA RT / PROCEDURE REASON: Acute pain of right knee * * * * Physician Interpretation * * * * EXAMINATION: XR KNEE 4V AP/PA BOTH+LAT/RIMA RT HISTORY: Anterior right knee pain after falling on concrete yesterday Acute pain of right knee . TECHNIQUE: XR KNEE 4V AP/PA BOTH+LAT/RIMA RT Laterality: RIGHT Number of different views (projections): 4 M: XB_1 COMPARISON: None RESULT: Right knee: 4 images including upright frontal. Intact bones and joints. Maintained joint spaces. No osteophytosis. Osteopenia. No joint effusion. Unremarkable soft tissue planes other than deconditioned musculature. No unanticipated acute findings on included views of the left knee. Maintained joint spaces. No osteophytosis. Osteopenia. Deconditioned musculature. DIVISION OF RADIOLOGY [facility] * * *Final Report* * * DATE OF EXAM: Oct 13 2021 10:20AM WOX 5203 - XR KNEE 4V AP/PA BOTH+LAT/RIMA RT / PROCEDURE REASON: Acute pain of right knee * * * * Physician Interpretation * * * * EXAMINATION: XR KNEE 4V AP/PA BOTH+LAT/RIMA RT HISTORY: Anterior right knee pain after falling on concrete yesterday Acute pain of right knee . TECHNIQUE: XR KNEE 4V AP/PA BOTH+LAT/RIMA RT Laterality: RIGHT Number of different views (projections): 4 M: XB_1 COMPARISON: None RESULT: Right knee: 4 images including upright frontal. Intact bones and joints. Maintained joint spaces. No osteophytosis. Osteopenia. No joint effusion. Unremarkable soft tissue planes other than deconditioned musculature. No unanticipated acute findings on included views of the left knee. Maintained joint spaces. No osteophytosis. Osteopenia. Deconditioned musculature. IMPRESSION IMPRESSION: 1. No acute findings. Maintained joint spaces. 2. Osteopenia. Deconditioned musculature. Professor Of Criminal Justice: LASHAWN Transcribe Date/Time: Oct 13 2021 10:59A Dictated by : CEZAR VELAZQUEZ MD This examination was interpreted and the report reviewed and electronically signed by: CEZAR VELAZQUEZ MD on Oct 13 2021 11:03AM EST [facility] XR Ribs - right Views and Ch est PAOrdered By: Ccf Provider on 10-13-2021 Interpretation and review of laboratory results Abnormal [facility] Radiology Result ACTIONABLE Abnormal [facility] Comment on above: This report contains an incidental or actionable finding. This is a new finding that is separate from the reason your provider ordered the imaging test. Because of this incidental or actionable finding, you may need another imaging test to evaluate it. Please contact your provider for the next steps. [facility] XR Ribs - right Views and Ch est PAon 10-13-2021 IMPRESSION: 1. No acute findings right chest wall. 2. New left upper lung small nodular density, representing summation artifact or new small nodule. 6 week follow-up PA chest radiograph is reasonable. ACTIONABLE RESULT: FOLLOW-UP Acuity: Actionable Findings: Thoracic-Lung nodules Routing code: RI_1 Recommendation: Unlisted Recommendation (see report) Time Frame: Additional evaluation as described in the impression COMMUNICATION: Results will be communicated with the ordering provider via [employer] staff message or phone message by [facility] within 2 business days of report finalization. Algorithms for management of incidental imaging findings can be found on the [facility] Intranet Sharepoint site at: [email or web address] Managing%20Incidental%2 0Findi ngs%20at%20Imaging/Form s/AllItems.aspx Professor Of Criminal Justice: PSCB Transcribe Date/Time: Oct 13 2021 10:53A Dictated by : CEZAR VELAZQUEZ MD This examination was interpreted and the report reviewed and electronically signed by: CEZAR VELAZQUEZ MD on Oct 13 2021 10:59AM EST DIVISION OF RADIOLOGY * * *Final Report* * * DATE OF EXAM: Oct 13 2021 10:19AM WOX 5244 - XR RIB/CHST 3V AP RIB/OBL/CHST R / PROCEDURE REASON: Chest wall pain * * * * Physician Interpretation * * * * EXAMINATION: XR RIB/CHST 3V AP RIB/OBL/CHST R HISTORY: Lateral right rib pain after falling on concrete yesterday Chest wall pain . TECHNIQUE: XR RIB/CHST 3V AP RIB/OBL/CHST R Laterality: RIGHT Number of different views (projections): 3 M: XB_1 COMPARISON: Chest and rib radiographs 12/01/2020 and 07/12/2021, chest radiograph 11/03/2008 RESULT: 4 images. No identified acute rib or adjacent regional abnormality. Possible new small pulmonary nodule left upper lobe laterally. Preexistent small post inflammatory calcified pulmonary nodules right base. Normal heart size. Unremarkable imaged portion of the abdomen. DIVISION OF RADIOLOGY Provider, [facility] - 10/13/2021 * * *Final Report* * * DATE OF EXAM: Oct 13 2021 10:19AM WOX 5244 - XR RIB/CHST 3V AP RIB/OBL/CHST R / PROCEDURE REASON: Chest wall pain * * * * Physician Interpretation * * * * EXAMINATION: XR RIB/CHST 3V AP RIB/OBL/CHST R HISTORY: Lateral right rib pain after falling on concrete yesterday Chest wall pain . TECHNIQUE: XR RIB/CHST 3V AP RIB/OBL/CHST R Laterality: RIGHT Number of different views (projections): 3 M: XB_1 COMPARISON: Chest and rib radiographs 12/01/2020 and 07/12/2021, chest radiograph 11/03/2008 RESULT: 4 images. No identified acute rib or adjacent regional abnormality. Possible new small pulmonary nodule left upper lobe laterally. Preexistent small post inflammatory calcified pulmonary nodules right base. Normal heart size. Unremarkable imaged portion of the abdomen. IMPRESSION IMPRESSION: 1. No acute findings right chest wall. 2. New left upper lung small nodular density, representing summation artifact or new small nodule. 6 week follow-up PA chest radiograph is reasonable. ACTIONABLE RESULT: FOLLOW-UP Acuity: Actionable Findings: Thoracic-Lung nodules Routing code: RI_1 Recommendation: Unlisted Recommendation (see report) Time Frame: Additional evaluation as described in the impression COMMUNICATION: Results will be communicated with the ordering provider via [employer] staff message or phone message by [facility] within 2 business days of report finalization. Algorithms for management of incidental imaging findings can be found on the [facility] Intranet Sharepoint site at: [email or web address] Managing%20Incidental%2 0Findi ngs%20at%20Imaging/Form s/AllItems.aspx Professor Of Criminal Justice: PSCB Transcribe Date/Time: Oct 13 2021 10:53A Dictated by : CEZAR VELAZQUEZ MD This examination was interpreted and the report reviewed and electronically signed by: CEZAR VELAZQUEZ MD on Oct 13 2021 10:59AM EST [facility] XR Ribs - bilateral 4 Views and Chest PAon 07-12-2021 IMPRESSION: No acute chest microsoft solutions architect: PSC Transcribe Date/Time: Jul 12 2021 3:52P Dictated by : SAADIA MARQUEZ MD This examination was interpreted and the report reviewed and electronically signed by: SAADIA MARQUEZ MD on Jul 12 2021 3:55PM EST DIVISION OF RADIOLOGY * * *Final Report* * * DATE OF EXAM: Jul 12 2021 1:15PM WOX 5242 - XR RIBS 4V ARAMIS+UPPER/LOWER CHEST / PROCEDURE REASON: multiple diagnoses * * * * Physician Interpretation * * * * X-ray bilateral ribs with PA chest Indication: Bilateral chest pain Comparison: X-ray chest and left RIBS 12/01/2020 The heart is normal in size. There is no widening of the mediastinum. The lungs are clear and well expanded. There are calcified nodules in the right lung base. No rib fractures are visualized. There are no acute osseous abnormalities. DIVISION OF RADIOLOGY Provider, [facility] - 07/12/2021 * * *Final Report* * * DATE OF EXAM: Jul 12 2021 1:15PM WOX 5242 - XR RIBS 4V ARAMIS+UPPER/LOWER CHEST / PROCEDURE REASON: multiple diagnoses * * * * Physician Interpretation * * * * X-ray bilateral ribs with PA chest Indication: Bilateral chest pain Comparison: X-ray chest and left RIBS 12/01/2020 The heart is normal in size. There is no widening of the mediastinum. The lungs are clear and well expanded. There are calcified nodules in the right lung base. No rib fractures are visualized. There are no acute osseous abnormalities. IMPRESSION IMPRESSION: No acute chest microsoft solutions architect: PSCB Transcribe Date/Time: Jul 12 2021 3:52P Dictated by : SAADIA MARQUEZ MD This examination was interpreted and the report reviewed and electronically signed by: SAADIA MARQUEZ MD on Jul 12 2021 3:55PM EST [facility] Radiology Study observation (narrative) [facility] XR Ribs - bilateral 4 Views and Chest PAOrdered By: Ccf Provider on 07-12-2021 [facility] XR Ribs - left Views and Luanne st PAon 12-01-2020 IMPRESSION: NO ACUTE RADIOGRAPHIC ABNORMALITY OR DISPLACED RIB FRACTURE. Professor Of Criminal Justice: [facility] Transcribe Date/Time: Dec 01 2020 8:31A Dictated by : DIMITRIOS SANTO MD This examination was interpreted and the report reviewed and electronically signed by: DIMITRIOS SANTO MD on Dec 01 2020 8:37AM [facility] DIVISION OF RADIOLOGY * * *Final Report* * * DATE OF EXAM: Dec 01 2020 8:23AM WOX 5243 - XR RIB/CHST 3V AP RIB/OBL/CHST L / PROCEDURE REASON: Rib pain * * * * Physician Interpretation * * * * EXAMINATION: FRONTAL CHEST X-RAY, AP AND OBLIQUE X-RAYS OF LEFT RIBS History: Rib pain M: XC2 Comparison: None. RESULT: 1. Lines, Tubes, and Devices: N/A 2. Lungs and Pleura: No focal consolidation. No pleural effusion or pneumothorax. Nodular density at the RIGHT lung base consistent with calcified granuloma and appears present on prior thoracic spine radiographs of 2018. 3. Cardiomediastinal silhouette: Within normal limits. 4. Bones: No acute osseous abnormality. - - DIVISION OF RADIOLOGY Provider, [facility] - 12/01/2020 * * *Final Report* * * DATE OF EXAM: Dec 01 2020 8:23AM WOX 5243 - XR RIB/CHST 3V AP RIB/OBL/CHST L / PROCEDURE REASON: Rib pain * * * * Physician Interpretation * * * * EXAMINATION: FRONTAL CHEST X-RAY, AP AND OBLIQUE X-RAYS OF LEFT RIBS History: Rib pain M: XC2 Comparison: None. RESULT: 1. Lines, Tubes, and Devices: N/A 2. Lungs and Pleura: No focal consolidation. No pleural effusion or pneumothorax. Nodular density at the RIGHT lung base consistent with calcified granuloma and appears present on prior thoracic spine radiographs of 2018. 3. Cardiomediastinal silhouette: Within normal limits. 4. Bones: No acute osseous abnormality. - - IMPRESSION IMPRESSION: NO ACUTE RADIOGRAPHIC ABNORMALITY OR DISPLACED RIB FRACTURE. Professor Of Criminal Justice: PSCB Transcribe Date/Time: Dec 01 2020 8:31A Dictated by : DIMITRIOS SANTO MD This examination was interpreted and the report reviewed and electronically signed by: DIMITRIOS SANTO MD on Dec 01 2020 8:37AM EST [facility] Radiology Study observation (narrative) [facility] XR Ribs - left Views and Luanne st PAOrdered By: Ccf Provider on 12-01-2020 [facility] Vital Signs Date Time Vital Sign Value Performing Clinician Facility 06-09-2025 10:01-0400 Diastolic blood pressure 82 mm[Hg] Herlinda Jett APRN.WASH WORKER Work Phone: [facility] 06-09-2025 10:01-0400 Heart rate 92 /min Herlinda Jett APRN.WASH WORKER Work Phone: [facility] 06-09-2025 10:01-0400 Respiratory rate 16 /min Herlinda Jett APRN.WASH WORKER Work Phone: [facility] 06-09-2025 10:01-0400 SaO2% (BldA) [Mass fraction] 98 % Herlinda Jett APRN.WASH WORKER Work Phone: [facility] 06-09-2025 10:01-0400 Systolic blood pressure 138 mm[Hg] Herlinda Jett APRN.WASH WORKER Work Phone: [facility] 05-26-2025 08:08-0400 Diastolic blood pressure 66 mm[Hg] Daylin Mendenhall FIELD MECHANIC.WASH WORKER Work Phone: [facility] 05-26-2025 08:08-0400 Systolic blood pressure 116 mm[Hg] Daylin Suppan FIELD MECHANIC.WASH WORKER Work Phone: [facility] 05-26-2025 07:55-0400 Body mass index (BMI) [Ratio] 22.66 kg/m2 Daylin Suppan FIELD MECHANIC.WASH WORKER Work Phone: [facility] 05-26-2025 07:55-0400 Body temperature 97.39 [degF] Daylin Suppan FIELD MECHANIC.WASH WORKER Work Phone: [facility] 05-26-2025 07:55-0400 Body weight 59.88 kg Daylin Suppan FIELD MECHANIC.WASH WORKER Work Phone: [facility] 05-26-2025 07:55-0400 Heart rate 79 /min Daylin Suppan FIELD MECHANIC.WASH WORKER Work Phone: [facility] 05-26-2025 07:55-0400 SaO2% (BldA) [Mass fraction] 98 % Daylin Suppan FIELD MECHANIC.WASH WORKER Work Phone: [facility] 05-23-2025 08:20-0400 Body mass index (BMI) [Ratio] 22.83 kg/m2 Mita Corbin FIELD MECHANIC.WASH WORKER Work Phone: [facility] 05-23-2025 08:20-0400 Body temperature 98.01 [degF] Mita Corbin FIELD MECHANIC.WASH WORKER Work Phone: [facility] 05-23-2025 08:20-0400 Body weight 60.33 kg Mita Corbin FIELD MECHANIC.WASH WORKER Work Phone: [facility] 05-23-2025 08:20-0400 Diastolic blood pressure 86 mm[Hg] Mita Corbin FIELD MECHANIC.WASH WORKER Work Phone: [facility] 05-23-2025 08:20-0400 Heart rate 89 /min iMta Barkero FIELD MECHANIC.WASH WORKER Work Phone: [facility] 05-23-2025 08:20-0400 SaO2% (BldA) [Mass fraction] 98 % Mita Barkerheike GARCIA.WASH WORKER Work Phone: [facility] 05-23-2025 08:20-0400 Systolic blood pressure 122 mm[Hg] Mita Barkerheike GARCIA.WASH WORKER Work Phone: [facility] 05-17-2025 10:23-0400 Body mass index (BMI) [Ratio] 22.71 kg/m2 Nae Gould MD Work Phone: [facility] 05-17-2025 10:23-0400 Body temperature 97.59 [degF] Nae Gould MD Work Phone: [facility] 05-17-2025 10:23-0400 Body weight 60 kg Nae Gould MD Work Phone: [facility] 05-17-2025 10:23-0400 Diastolic blood pressure 60 mm[Hg] Nae Gould MD Work Phone: [facility] 05-17-2025 10:23-0400 Heart rate 76 /min Nae Gould MD Work Phone: [facility] 05-17-2025 10:23-0400 Respiratory rate 20 /min Nae Gould MD Work Phone: [facility] 05-17-2025 10:23-0400 SaO2% (BldA) [Mass fraction] 96 % Nae Gould MD Work Phone: [facility] 05-17-2025 10:23-0400 Systolic blood pressure 138 mm[Hg] Nae Gould MD Work Phone: [facility] 05-12-2025 09:26-0400 Body mass index (BMI) [Ratio] 23.17 kg/m2 Bridget De Luna MD Work Phone: [facility] 05-12-2025 09:26-0400 Body weight 61.24 kg Bridget De Luna MD Work Phone: [facility] 05-12-2025 09:26-0400 Diastolic blood pressure 80 mm[Hg] Bridget De Luna MD Work Phone: [facility] 05-12-2025 09:26-0400 Heart rate 68 /min Bridget De Luna MD Work Phone: [facility] 05-12-2025 09:26-0400 SaO2% (BldA) [Mass fraction] 95 % Bridget De Luna MD Work Phone: [facility] 05-12-2025 09:26-0400 Systolic blood pressure 128 mm[Hg] Bridget De Luna MD Work Phone: [facility] 05-01-2025 12:35-0400 Body mass index (BMI) [Ratio] 22.66 kg/m2 Daylin Suppan FIELD MECHANIC.WASH WORKER Work Phone: [facility] 05-01-2025 12:35-0400 Body weight 59.88 kg Daylin Suppan FIELD MECHANIC.WASH WORKER Work Phone: [facility] 05-01-2025 12:35-0400 Diastolic blood pressure 76 mm[Hg] Daylin Suppan FIELD MECHANIC.WASH WORKER Work Phone: [facility] 05-01-2025 12:35-0400 Heart rate 82 /min Daylin Suppan FIELD MECHANIC.WASH WORKER Work Phone: [facility] 05-01-2025 12:35-0400 SaO2% (BldA) [Mass fraction] 97 % Daylin Suppan FIELD MECHANIC.WASH WORKER Work Phone: [facility] 05-01-2025 12:35-0400 Systolic blood pressure 122 mm[Hg] Daylin Suppan FIELD MECHANIC.WASH WORKER Work Phone: [facility] 04-23-2025 08:09-0400 Body mass index (BMI) [Ratio] 22.76 kg/m2 Ran Luna MD Work Phone: [facility] 04-23-2025 08:09-0400 Body weight 60.15 kg Ran Luna MD Work Phone: [facility] 04-23-2025 08:09-0400 Diastolic blood pressure 84 mm[Hg] Ran Luna MD Work Phone: [facility] 04-23-2025 08:09-0400 Heart rate 77 /min Ran Luna MD Work Phone: [facility] 04-23-2025 08:09-0400 SaO2% (BldA) [Mass fraction] 97 % Ran Luna MD Work Phone: [facility] 04-23-2025 08:09-0400 Systolic blood pressure 132 mm[Hg] Ran Luna MD Work Phone: [facility] 04-14-2025 07:49-0400 Body mass index (BMI) [Ratio] 23 kg/m2 Daylin Suppan FIELD MECHANIC.WASH WORKER Work Phone: [facility] 04-14-2025 07:49-0400 Body temperature 97.3 [degF] Daylin Suppan FIELD MECHANIC.WASH WORKER Work Phone: [facility] 04-14-2025 07:49-0400 Body weight 60.78 kg Daylin Suppan FIELD MECHANIC.WASH WORKER Work Phone: [facility] 04-14-2025 07:49-0400 Diastolic blood pressure 80 mm[Hg] Daylin Suppan FIELD MECHANIC.WASH WORKER Work Phone: [facility] 04-14-2025 07:49-0400 Heart rate 60 /min Daylin Suppan FIELD MECHANIC.WASH WORKER Work Phone: [facility] 04-14-2025 07:49-0400 SaO2% (BldA) [Mass fraction] 99 % Daylin Suppan FIELD MECHANIC.WASH WORKER Work Phone: [facility] 04-14-2025 07:49-0400 Systolic blood pressure 136 mm[Hg] Daylin Suppan FIELD MECHANIC.WASH WORKER Work Phone: [facility] 04-08-2025 10:17-0400 Diastolic blood pressure 78 mm[Hg] Herlinda Haloreto FIELD MECHANIC.WASH WORKER Work Phone: [facility] 04-08-2025 10:17-0400 Heart rate 77 /min Herlinda Jett FIELD MECHANIC.WASH WORKER Work Phone: [facility] 04-08-2025 10:17-0400 Respiratory rate 16 /min Herlinda Jett FIELD MECHANIC.WASH WORKER Work Phone: [facility] 04-08-2025 10:17-0400 SaO2% (BldA) [Mass fraction] 97 % Herlinda Jett FIELD MECHANIC.WASH WORKER Work Phone: [facility] 04-08-2025 10:17-0400 Systolic blood pressure 122 mm[Hg] Herlinda Jett FIELD MECHANIC.WASH WORKER Work Phone: [facility] 03-27-2025 09:30-0400 Body mass index (BMI) [Ratio] 22.83 kg/m2 Daylin Mendenhall FIELD MECHANIC.WASH WORKER Work Phone: [facility] 03-27-2025 09:30-0400 Body temperature 97.11 [degF] Daylin Mendenhall FIELD MECHANIC.WASH WORKER Work Phone: [facility] 03-27-2025 09:30-0400 Body weight 60.33 kg Daylin Mendenhall FIELD MECHANIC.WASH WORKER Work Phone: [facility] 03-27-2025 09:30-0400 Diastolic blood pressure 80 mm[Hg] Daylin Mendenhall FIELD MECHANIC.WASH WORKER Work Phone: [facility] 03-27-2025 09:30-0400 Heart rate 75 /min Daylin Mendenhall FIELD MECHANIC.WASH WORKER Work Phone: [facility] 03-27-2025 09:30-0400 SaO2% (BldA) [Mass fraction] 98 % Daylin Mendenhall FIELD MECHANIC.WASH WORKER Work Phone: [facility] 03-27-2025 09:30-0400 Systolic blood pressure 130 mm[Hg] Daylin Mendenhall FIELD MECHANIC.WASH WORKER Work Phone: [facility] 03-24-2025 09:36-0400 Body mass index (BMI) [Ratio] 22.83 kg/m2 Vangie Vázquez FIELD MECHANIC.WASH WORKER Work Phone: [facility] 03-24-2025 09:36-0400 Body temperature 98.4 [degF] Vangie Podlogar FIELD MECHANIC.WASH WORKER Work Phone: [facility] 03-24-2025 09:36-0400 Body weight 60.33 kg Vangie Podlogar FIELD MECHANIC.WASH WORKER Work Phone: [facility] 03-24-2025 09:36-0400 Diastolic blood pressure 88 mm[Hg] Vangie Podlogar FIELD MECHANIC.WASH WORKER Work Phone: [facility] 03-24-2025 09:36-0400 Heart rate 88 /min Vangie Podlogar FIELD MECHANIC.WASH WORKER Work Phone: [facility] 03-24-2025 09:36-0400 Respiratory rate 18 /min Vangie Podlogar FIELD MECHANIC.WASH WORKER Work Phone: [facility] 03-24-2025 09:36-0400 SaO2% (BldA) [Mass fraction] 97 % Vangie Podlogar FIELD MECHANIC.WASH WORKER Work Phone: [facility] 03-24-2025 09:36-0400 Systolic blood pressure 142 mm[Hg] Vangie Podlogar FIELD MECHANIC.WASH WORKER Work Phone: [facility] 03-19-2025 12:58-0400 Body mass index (BMI) [Ratio] 23 kg/m2 Bridget De Luna MD Work Phone: [facility] 03-19-2025 12:58-0400 Body weight 60.78 kg Bridget De Luna MD Work Phone: [facility] 03-19-2025 12:58-0400 Diastolic blood pressure 80 mm[Hg] Bridget De Luna MD Work Phone: [facility] 03-19-2025 12:58-0400 Heart rate 87 /min Bridget De Luna MD Work Phone: [facility] 03-19-2025 12:58-0400 SaO2% (BldA) [Mass fraction] 94 % Bridget De Luna MD Work Phone: [facility] 03-19-2025 12:58-0400 Systolic blood pressure 132 mm[Hg] Bridget De Luna MD Work Phone: [facility] 03-11-2025 11:02-0400 Diastolic blood pressure 82 mm[Hg] Herlinda Jett FIELD MECHANIC.WASH WORKER Work Phone: [facility] 03-11-2025 11:02-0400 Heart rate 80 /min Herlinda Jett FIELD MECHANIC.WASH WORKER Work Phone: [facility] 03-11-2025 11:02-0400 Respiratory rate 16 /min Herlinda Jett FIELD MECHANIC.WASH WORKER Work Phone: [facility] 03-11-2025 11:02-0400 SaO2% (BldA) [Mass fraction] 98 % Herlinda Jett FIELD MECHANIC.WASH WORKER Work Phone: [facility] 03-11-2025 11:02-0400 Systolic blood pressure 138 mm[Hg] Herlinda Jett FIELD MECHANIC.WASH WORKER Work Phone: [facility] 02-03-2025 08:33-0400 Diastolic blood pressure 76 mm[Hg] Daylin Anuman FIELD MECHANIC.WASH WORKER Work Phone: [facility] 02-03-2025 08:33-0400 Systolic blood pressure 126 mm[Hg] Daylin Suppan FIELD MECHANIC.WASH WORKER Work Phone: [facility] 02-03-2025 08:16-0400 Body mass index (BMI) [Ratio] 22.49 kg/m2 Daylin Suppan FIELD MECHANIC.WASH WORKER Work Phone: [facility] 02-03-2025 08:16-0400 Body temperature 97.39 [degF] Daylin Suppan FIELD MECHANIC.WASH WORKER Work Phone: [facility] 02-03-2025 08:16-0400 Body weight 59.42 kg Daylin Suppan FIELD MECHANIC.WASH WORKER Work Phone: [facility] 02-03-2025 08:16-0400 Heart rate 72 /min Daylin Suppan FIELD MECHANIC.WASH WORKER Work Phone: [facility] 02-03-2025 08:16-0400 SaO2% (BldA) [Mass fraction] 98 % Daylin Rowanan FIELD MECHANIC.WASH WORKER Work Phone: [facility] 01-06-2025 09:52-0400 Diastolic blood pressure 86 mm[Hg] Herlinda Haagen FIELD MECHANIC.WASH WORKER Work Phone: [facility] 01-06-2025 09:52-0400 Heart rate 79 /min Herlinda Haagen FIELD MECHANIC.WASH WORKER Work Phone: [facility] 01-06-2025 09:52-0400 Respiratory rate 16 /min Herlinda Haagen FIELD MECHANIC.WASH WORKER Work Phone: [facility] 01-06-2025 09:52-0400 SaO2% (BldA) [Mass fraction] 97 % Herlinda Haagen FIELD MECHANIC.WASH WORKER Work Phone: [facility] 01-06-2025 09:52-0400 Systolic blood pressure 128 mm[Hg] Herlinda Haagen FIELD MECHANIC.WASH WORKER Work Phone: [facility] 12-30-2024 09:03-0400 Body mass index (BMI) [Ratio] 22.31 kg/m2 Daylin Suppan FIELD MECHANIC.WASH WORKER Work Phone: [facility] 12-30-2024 09:03-0400 Body temperature 96.91 [degF] Daylin Suppan FIELD MECHANIC.WASH WORKER Work Phone: [facility] 12-30-2024 09:03-0400 Body weight 58.97 kg Daylin Suppan FIELD MECHANIC.WASH WORKER Work Phone: [facility] 12-30-2024 09:03-0400 Diastolic blood pressure 88 mm[Hg] Daylin Suppan FIELD MECHANIC.WASH WORKER Work Phone: [facility] 12-30-2024 09:03-0400 Heart rate 88 /min Daylin Suppan FIELD MECHANIC.WASH WORKER Work Phone: [facility] 12-30-2024 09:03-0400 SaO2% (BldA) [Mass fraction] 98 % Daylin Mendenhall FIELD MECHANIC.WASH WORKER Work Phone: [facility] 12-30-2024 09:03-0400 Systolic blood pressure 128 mm[Hg] Daylin Mendenhall FIELD MECHANIC.WASH WORKER Work Phone: [facility] 12-27-2024 15:30-0400 Diastolic blood pressure 80 mm[Hg] Bridget De Luna MD Work Phone: [facility] 12-27-2024 15:30-0400 Systolic blood pressure 132 mm[Hg] Bridget De Luna MD Work Phone: [facility] 12-27-2024 14:53-0400 Body height 162.6 cm Bridget De Luna MD Work Phone: [facility] 12-27-2024 14:53-0400 Body mass index (BMI) [Ratio] 22.83 kg/m2 Bridget De Luna MD Work Phone: [facility] 12-27-2024 14:53-0400 Body temperature 98.29 [degF] Bridget De Luna MD Work Phone: [facility] 12-27-2024 14:53-0400 Body weight 60.33 kg Bridget De Luna MD Work Phone: [facility] 12-27-2024 14:53-0400 Heart rate 78 /min Bridget De Luna MD Work Phone: [facility] 12-27-2024 14:53-0400 SaO2% (BldA) [Mass fraction] 99 % Bridget De Luna MD Work Phone: [facility] 12-20-2024 09:56-0400 Diastolic blood pressure 88 mm[Hg] Herlinda Jett FIELD MECHANIC.WASH WORKER Work Phone: [facility] 12-20-2024 09:56-0400 Heart rate 87 /min Herlinda Jett FIELD MECHANIC.WASH WORKER Work Phone: [facility] 12-20-2024 09:56-0400 Respiratory rate 16 /min Herlinda Jett FIELD MECHANIC.WASH WORKER Work Phone: [facility] 12-20-2024 09:56-0400 SaO2% (BldA) [Mass fraction] 96 % Herlinda Jett FIELD MECHANIC.WASH WORKER Work Phone: [facility] 12-20-2024 09:56-0400 Systolic blood pressure 142 mm[Hg] Herlinda Jett APRN.WASH WORKER Work Phone: [facility] 12-06-2024 08:06-0500 Body mass index (BMI) [Ratio] 22.66 kg/m2 Bayron Wesley DO Work Phone: [facility] 12-06-2024 08:06-0500 Body temperature 97 [degF] Bayron Wesley DO Work Phone: [facility] 12-06-2024 08:06-0500 Body weight 59.88 kg Bayron Wesley DO Work Phone: [facility] 12-06-2024 08:06-0500 Diastolic blood pressure 80 mm[Hg] Bayron Wesley DO Work Phone: [facility] 12-06-2024 08:06-0500 Heart rate 76 /min Bayron Wesley DO Work Phone: [facility] 12-06-2024 08:06-0500 Respiratory rate 16 /min Bayron Wesley DO Work Phone: [facility] 12-06-2024 08:06-0500 Systolic blood pressure 130 mm[Hg] Bayron Wesley DO Work Phone: [facility] 11-25-2024 15:02-0500 Body mass index (BMI) [Ratio] 22.66 kg/m2 Daylin Mendenhall FIELD MECHANIC.WASH WORKER Work Phone: [facility] 11-25-2024 15:02-0500 Body temperature 98.71 [degF] Daylin Mendenhall FIELD MECHANIC.WASH WORKER Work Phone: [facility] 11-25-2024 15:02-0500 Body weight 59.88 kg Daylin Mendenhall FIELD MECHANIC.WASH WORKER Work Phone: [facility] 11-25-2024 15:02-0500 Diastolic blood pressure 84 mm[Hg] Daylin Suppan FIELD MECHANIC.WASH WORKER Work Phone: [facility] 11-25-2024 15:02-0500 Heart rate 88 /min Daylin Suppan FIELD MECHANIC.WASH WORKER Work Phone: [facility] 11-25-2024 15:02-0500 SaO2% (BldA) [Mass fraction] 98 % Daylin Suppan FIELD MECHANIC.WASH WORKER Work Phone: [facility] 11-25-2024 15:02-0500 Systolic blood pressure 130 mm[Hg] Daylin Suppan FIELD MECHANIC.WASH WORKER Work Phone: [facility] 11-20-2024 15:35-0500 Body mass index (BMI) [Ratio] 23.23 kg/m2 Em Slade FIELD MECHANIC.WASH WORKER Work Phone: [facility] 11-20-2024 15:35-0500 Body temperature 98.1 [degF] Em Slade FIELD MECHANIC.WASH WORKER Work Phone: [facility] 11-20-2024 15:35-0500 Body weight 61.4 kg Em Slade FIELD MECHANIC.WASH WORKER Work Phone: [facility] 11-20-2024 15:35-0500 Diastolic blood pressure 82 mm[Hg] Em Slade FIELD MECHANIC.WASH WORKER Work Phone: [facility] 11-20-2024 15:35-0500 Heart rate 88 /min Em Slade FIELD MECHANIC.WASH WORKER Work Phone: [facility] 11-20-2024 15:35-0500 Respiratory rate 16 /min Em Slade FIELD MECHANIC.WASH WORKER Work Phone: [facility] 11-20-2024 15:35-0500 SaO2% (BldA) [Mass fraction] 98 % Em Slade FIELD MECHANIC.WASH WORKER Work Phone: [facility] 11-20-2024 15:35-0500 Systolic blood pressure 130 mm[Hg] Em Slade FIELD MECHANIC.WASH WORKER Work Phone: [facility] 11-19-2024 10:42-0500 Body temperature 98.1 [degF] Daylin Suppan FIELD MECHANIC.WASH WORKER Work Phone: [facility] 11-19-2024 10:42-0500 Diastolic blood pressure 84 mm[Hg] Daylin Suppan FIELD MECHANIC.WASH WORKER Work Phone: [facility] 11-19-2024 10:42-0500 Heart rate 72 /min Daylin Suppan FIELD MECHANIC.WASH WORKER Work Phone: [facility] 11-19-2024 10:42-0500 SaO2% (BldA) [Mass fraction] 97 % Daylin Suppan FIELD MECHANIC.WASH WORKER Work Phone: [facility] 11-19-2024 10:42-0500 Systolic blood pressure 130 mm[Hg] Daylin Suppan FIELD MECHANIC.WASH WORKER Work Phone: [facility] 11-06-2024 08:14-0500 Body temperature 98.49 [degF] Herlinda Haagen FIELD MECHANIC.WASH WORKER Work Phone: [facility] 11-06-2024 08:14-0500 Diastolic blood pressure 86 mm[Hg] Herlinda Haagen FIELD MECHANIC.WASH WORKER Work Phone: [facility] 11-06-2024 08:14-0500 Heart rate 83 /min Herlinda Haagen FIELD MECHANIC.WASH WORKER Work Phone: [facility] 11-06-2024 08:14-0500 Respiratory rate 16 /min Herlinda Haagen FIELD MECHANIC.WASH WORKER Work Phone: [facility] 11-06-2024 08:14-0500 SaO2% (BldA) [Mass fraction] 97 % Herlinda Haagen FIELD MECHANIC.WASH WORKER Work Phone: [facility] 11-06-2024 08:14-0500 Systolic blood pressure 132 mm[Hg] Herlinda Haagen FIELD MECHANIC.WASH WORKER Work Phone: [facility] 10-30-2024 10:29-0500 Diastolic blood pressure 90 mm[Hg] Herlinda Jett FIELD MECHANIC.WASH WORKER Work Phone: [facility] 10-30-2024 10:29-0500 Heart rate 76 /min Herlinda Jett FIELD MECHANIC.WASH WORKER Work Phone: [facility] 10-30-2024 10:29-0500 Respiratory rate 16 /min Herlinda Jett FIELD MECHANIC.WASH WORKER Work Phone: [facility] 10-30-2024 10:29-0500 SaO2% (BldA) [Mass fraction] 95 % Herlinda Jett FIELD MECHANIC.WASH WORKER Work Phone: [facility] 10-30-2024 10:29-0500 Systolic blood pressure 158 mm[Hg] Herlinda Jett FIELD MECHANIC.WASH WORKER Work Phone: [facility] 10-25-2024 11:22-0500 Body mass index (BMI) [Ratio] 22.31 kg/m2 Kathy Jansen FIELD MECHANIC.WASH WORKER Work Phone: [facility] 10-25-2024 11:22-0500 Body weight 58.97 kg Kathy Jansen APRN.WASH WORKER Work Phone: [facility] 10-25-2024 11:22-0500 Diastolic blood pressure 81 mm[Hg] Kathy Jansen FIELD MECHANIC.WASH WORKER Work Phone: [facility] 10-25-2024 11:22-0500 Heart rate 80 /min Kathy Jansen FIELD MECHANIC.WASH WORKER Work Phone: [facility] 10-25-2024 11:22-0500 Respiratory rate 14 /min Kathy Jansen FIELD MECHANIC.WASH WORKER Work Phone: [facility] 10-25-2024 11:22-0500 Systolic blood pressure 146 mm[Hg] Kathy Jansen FIELD MECHANIC.WASH WORKER Work Phone: [facility] 10-19-2024 10:39-0500 Body height 162.6 cm Bridget De Luna MD Work Phone: [facility] 01-18-2025 10:39-0500 Body mass index (BMI) [Ratio] 22.49 kg/m2 Bridget De Luna MD Work Phone: [facility] 10-19-2024 10:39-0500 Body weight 59.42 kg Bridget De Luna MD Work Phone: [facility] 10-19-2024 10:39-0500 Diastolic blood pressure 76 mm[Hg] Bridget De Luna MD Work Phone: [facility] 10-19-2024 10:39-0500 Heart rate 76 /min Bridget De Luna MD Work Phone: [facility] 10-19-2024 10:39-0500 Systolic blood pressure 135 mm[Hg] Bridget De Luna MD Work Phone: [facility] 10-15-2024 10:36-0500 Diastolic blood pressure 84 mm[Hg] Herlinda Jett FIELD MECHANIC.WASH WORKER Work Phone: [facility] 10-15-2024 10:36-0500 Heart rate 94 /min Herlinda Holmanagen FIELD MECHANIC.WASH WORKER Work Phone: [facility] 10-15-2024 10:36-0500 Respiratory rate 16 /min Herlinda Jett FIELD MECHANIC.WASH WORKER Work Phone: [facility] 10-15-2024 10:36-0500 SaO2% (BldA) [Mass fraction] 96 % Herlinda Jett FIELD MECHANIC.WASH WORKER Work Phone: [facility] 10-15-2024 10:36-0500 Systolic blood pressure 138 mm[Hg] Herlinda Jett FIELD MECHANIC.WASH WORKER Work Phone: [facility] 10-09-2024 10:17-0500 Heart rate 92 /min Ryan Dalton MD Work Phone: [facility] 10-09-2024 09:55-0500 Body mass index (BMI) [Ratio] 22.35 kg/m2 Ryan Dalton MD Work Phone: [facility] 10-09-2024 09:55-0500 Body temperature 97.9 [degF] Ryan Dalton MD Work Phone: [facility] 10-09-2024 09:55-0500 Body weight 59.06 kg Ryan Dalton MD Work Phone: [facility] 10-09-2024 09:55-0500 Diastolic blood pressure 82 mm[Hg] Ryan Dalton MD Work Phone: [facility] 10-09-2024 09:55-0500 Respiratory rate 16 /min Ryan Dalton MD Work Phone: [facility] 10-09-2024 09:55-0500 SaO2% (BldA) [Mass fraction] 98 % Ryan Dalton MD Work Phone: [facility] 10-09-2024 09:55-0500 Systolic blood pressure 130 mm[Hg] Ryan Dalton MD Work Phone: [facility] 10-04-2024 08:56-0500 Body mass index (BMI) [Ratio] 21.63 kg/m2 Daylin Suppan FIELD MECHANIC.WASH WORKER Work Phone: [facility] 10-04-2024 08:56-0500 Body weight 57.15 kg Daylin Suppan FIELD MECHANIC.WASH WORKER Work Phone: [facility] 10-04-2024 08:56-0500 Diastolic blood pressure 82 mm[Hg] Daylin Suppan FIELD MECHANIC.WASH WORKER Work Phone: [facility] 10-04-2024 08:56-0500 Heart rate 83 /min Daylin Suppan FIELD MECHANIC.WASH WORKER Work Phone: [facility] 10-04-2024 08:56-0500 Respiratory rate 16 /min Daylin Suppan FIELD MECHANIC.WASH WORKER Work Phone: [facility] 10-04-2024 08:56-0500 SaO2% (BldA) [Mass fraction] 98 % Daylin Suppan FIELD MECHANIC.WASH WORKER Work Phone: [facility] 10-04-2024 08:56-0500 Systolic blood pressure 120 mm[Hg] Daylin Suppan FIELD MECHANIC.WASH WORKER Work Phone: [facility] 09-27-2024 13:26-0500 Body mass index (BMI) [Ratio] 21.8 kg/m2 Daylin Suppan FIELD MECHANIC.WASH WORKER Work Phone: [facility] 09-27-2024 13:26-0500 Body temperature 98.2 [degF] Daylin Suppan FIELD MECHANIC.WASH WORKER Work Phone: [facility] 09-27-2024 13:26-0500 Body weight 57.61 kg Daylin Suppan FIELD MECHANIC.WASH WORKER Work Phone: [facility] 09-27-2024 13:26-0500 Diastolic blood pressure 76 mm[Hg] Daylin Suppan FIELD MECHANIC.WASH WORKER Work Phone: [facility] 09-27-2024 13:26-0500 Heart rate 82 /min Daylin Suppan FIELD MECHANIC.WASH WORKER Work Phone: [facility] 09-27-2024 13:26-0500 Respiratory rate 16 /min Daylin Suppan FIELD MECHANIC.WASH WORKER Work Phone: [facility] 09-27-2024 13:26-0500 SaO2% (BldA) [Mass fraction] 98 % Daylin Suppan FIELD MECHANIC.WASH WORKER Work Phone: [facility] 09-27-2024 13:26-0500 Systolic blood pressure 130 mm[Hg] Daylin Suppan FIELD MECHANIC.WASH WORKER Work Phone: [facility] 09-23-2024 08:37-0500 Body mass index (BMI) [Ratio] 21.8 kg/m2 Bridget De Luna MD Work Phone: [facility] 09-23-2024 08:37-0500 Body weight 57.61 kg Bridget De Luna MD Work Phone: [facility] 09-23-2024 08:37-0500 Diastolic blood pressure 82 mm[Hg] Bridget De Luna MD Work Phone: [facility] 09-23-2024 08:37-0500 Heart rate 87 /min Bridget De Luna MD Work Phone: [facility] 09-23-2024 08:37-0500 SaO2% (BldA) [Mass fraction] 97 % Bridget De Luna MD Work Phone: [facility] 09-23-2024 08:37-0500 Systolic blood pressure 142 mm[Hg] Bridget De Luna MD Work Phone: [facility] 09-18-2024 13:35-0500 Body height 162.6 cm Ryan Dalton MD Work Phone: [facility] 09-18-2024 13:35-0500 Body mass index (BMI) [Ratio] 22.31 kg/m2 Ryan Dalton MD Work Phone: [facility] 09-18-2024 13:35-0500 Body temperature 98.4 [degF] Ryan Dalton MD Work Phone: [facility] 09-18-2024 13:35-0500 Body weight 58.97 kg Ryan Dalton MD Work Phone: [facility] 09-18-2024 13:35-0500 Diastolic blood pressure 74 mm[Hg] Ryan Dalton MD Work Phone: [facility] 09-18-2024 13:35-0500 Heart rate 87 /min Ryan Dalton MD Work Phone: [facility] 09-18-2024 13:35-0500 Respiratory rate 12 /min Ryan Dalton MD Work Phone: [facility] 09-18-2024 13:35-0500 SaO2% (BldA) [Mass fraction] 97 % Ryan Dalton MD Work Phone: [facility] 09-18-2024 13:35-0500 Systolic blood pressure 134 mm[Hg] Ryan Dalton MD Work Phone: [facility] 09-13-2024 11:26-0500 Body mass index (BMI) [Ratio] 21.97 kg/m2 Daylin Suppan FIELD MECHANIC.WASH WORKER Work Phone: [facility] 09-13-2024 11:26-0500 Body weight 58.06 kg Daylin Suppan FIELD MECHANIC.WASH WORKER Work Phone: [facility] 09-13-2024 11:26-0500 Diastolic blood pressure 78 mm[Hg] Daylin Suppan FIELD MECHANIC.WASH WORKER Work Phone: [facility] 09-13-2024 11:26-0500 Heart rate 78 /min Daylin Suppan FIELD MECHANIC.WASH WORKER Work Phone: [facility] 09-13-2024 11:26-0500 Respiratory rate 16 /min Daylin Suppan FIELD MECHANIC.WASH WORKER Work Phone: [facility] 09-13-2024 11:26-0500 SaO2% (BldA) [Mass fraction] 96 % Daylin Suppan FIELD MECHANIC.WASH WORKER Work Phone: [facility] 09-13-2024 11:26-0500 Systolic blood pressure 130 mm[Hg] Daylin Suppan FIELD MECHANIC.WASH WORKER Work Phone: [facility] 09-09-2024 07:08-0500 Body mass index (BMI) [Ratio] 21.65 kg/m2 Cher Finnf FIELD MECHANIC.WASH WORKER Work Phone: [facility] 09-09-2024 07:08-0500 Body weight 57.2 kg Cher Crabtree FIELD MECHANIC.WASH WORKER Work Phone: [facility] 09-09-2024 07:08-0500 Heart rate 94 /min Cher Higginshof FIELD MECHANIC.WASH WORKER Work Phone: [facility] 09-09-2024 07:08-0500 Respiratory rate 16 /min Cher Higginshof FIELD MECHANIC.WASH WORKER Work Phone: [facility] 09-09-2024 07:08-0500 SaO2% (BldA) [Mass fraction] 98 % Cher Higginshof FIELD MECHANIC.WASH WORKER Work Phone: [facility] 09-03-2024 16:12-0500 Diastolic blood pressure 98 mm[Hg] Herlinda Haagen FIELD MECHANIC.WASH WORKER Work Phone: [facility] Comment on above: [facility] BP 09-03-2024 16:12-0500 Heart rate 85 /min Herlinda Haagen FIELD MECHANIC.WASH WORKER Work Phone: [facility] 09-03-2024 16:12-0500 Systolic blood pressure 166 mm[Hg] Herlinda Haagen FIELD MECHANIC.WASH WORKER Work Phone: [facility] Comment on above: CH[facility] BP 09-03-2024 16:05-0500 Respiratory rate 16 /min Herlinda Haagen FIELD MECHANIC.WASH WORKER Work Phone: [facility] 09-03-2024 16:05-0500 SaO2% (BldA) [Mass fraction] 94 % Herlinda Haagen FIELD MECHANIC.WASH WORKER Work Phone: [facility] 09-02-2024 08:47-0500 Diastolic blood pressure 76 mm[Hg] Bridget De Luna MD Work Phone: [facility] 09-02-2024 08:47-0500 Systolic blood pressure 132 mm[Hg] Bridget De Luna MD Work Phone: [facility] 09-02-2024 08:27-0500 Body mass index (BMI) [Ratio] 21.49 kg/m2 Bridget De Luna MD Work Phone: [facility] 09-02-2024 08:27-0500 Body temperature 97.7 [degF] Bridget De Luna MD Work Phone: [facility] 09-02-2024 08:27-0500 Body weight 56.8 kg Bridget De Luna MD Work Phone: [facility] 09-02-2024 08:27-0500 Heart rate 75 /min Bridget De Luna MD Work Phone: [facility] 09-02-2024 08:27-0500 SaO2% (BldA) [Mass fraction] 97 % Bridget De Luna MD Work Phone: [facility] 08-08-2024 08:41-0500 Diastolic blood pressure 80 mm[Hg] Cher Higginshof FIELD MECHANIC.WASH WORKER Work Phone: [facility] 08-08-2024 08:41-0500 Systolic blood pressure 130 mm[Hg] Cher Tannhof FIELD MECHANIC.WASH WORKER Work Phone: [facility] 08-08-2024 08:23-0500 Body mass index (BMI) [Ratio] 21.61 kg/m2 Cher Higginshof FIELD MECHANIC.WASH WORKER Work Phone: [facility] 08-08-2024 08:23-0500 Body weight 57.1 kg Cher Higginshof FIELD MECHANIC.WASH WORKER Work Phone: [facility] 08-08-2024 08:23-0500 Heart rate 89 /min Cher Higginshof FIELD MECHANIC.WASH WORKER Work Phone: [facility] 08-08-2024 08:23-0500 Respiratory rate 16 /min Cher Higginshof FIELD MECHANIC.WASH WORKER Work Phone: [facility] 08-08-2024 08:23-0500 SaO2% (BldA) [Mass fraction] 98 % Cher Higginshof FIELD MECHANIC.WASH WORKER Work Phone: [facility] 08-05-2024 08:33-0500 Body height 162.6 cm Chelsie Onel FIELD MECHANIC.WASH WORKER Work Phone: [facility] 08-05-2024 08:33-0500 Body mass index (BMI) [Ratio] 21.63 kg/m2 Chelsie Onel FIELD MECHANIC.WASH WORKER Work Phone: [facility] 08-05-2024 08:33-0500 Body temperature 97.2 [degF] Chelsie Onel FIELD MECHANIC.WASH WORKER Work Phone: [facility] 08-05-2024 08:33-0500 Body weight 57.15 kg Chelsie Onel FIELD MECHANIC.WASH WORKER Work Phone: [facility] 08-05-2024 08:33-0500 Diastolic blood pressure 74 mm[Hg] Chelsie Onel FIELD MECHANIC.WASH WORKER Work Phone: [facility] 08-05-2024 08:33-0500 Heart rate 96 /min Chelsie Onel FIELD MECHANIC.WASH WORKER Work Phone: [facility] 08-05-2024 08:33-0500 SaO2% (BldA) [Mass fraction] 96 % Chelsie Onel FIELD MECHANIC.WASH WORKER Work Phone: [facility] 08-05-2024 08:33-0500 Systolic blood pressure 119 mm[Hg] Chelsie Onel FIELD MECHANIC.WASH WORKER Work Phone: [facility] 07-30-2024 10:04-0400 Body mass index (BMI) [Ratio] 21.38 kg/m2 Daylin Suppan FIELD MECHANIC.WASH WORKER Work Phone: [facility] 07-30-2024 10:04-0400 Body temperature 97.9 [degF] Daylin Suppan FIELD MECHANIC.WASH WORKER Work Phone: [facility] 07-30-2024 10:04-0400 Body weight 56.5 kg Daylin Suppan FIELD MECHANIC.WASH WORKER Work Phone: [facility] 07-30-2024 10:04-0400 Diastolic blood pressure 78 mm[Hg] Daylin Suppan FIELD MECHANIC.WASH WORKER Work Phone: [facility] 07-30-2024 10:04-0400 Heart rate 80 /min Daylin Suppan FIELD MECHANIC.WASH WORKER Work Phone: [facility] 07-30-2024 10:04-0400 Respiratory rate 16 /min Daylin Suppan FIELD MECHANIC.WASH WORKER Work Phone: [facility] 07-30-2024 10:04-0400 SaO2% (BldA) [Mass fraction] 98 % Daylin Suppan FIELD MECHANIC.WASH WORKER Work Phone: [facility] 07-30-2024 10:04-0400 Systolic blood pressure 126 mm[Hg] Daylin Suppan FIELD MECHANIC.WASH WORKER Work Phone: [facility] 07-16-2024 10:26-0400 Body mass index (BMI) [Ratio] 21.57 kg/m2 Daylin Suppan FIELD MECHANIC.WASH WORKER Work Phone: [facility] 07-16-2024 10:26-0400 Body temperature 98.01 [degF] Daylin Suppan FIELD MECHANIC.WASH WORKER Work Phone: [facility] 07-16-2024 10:26-0400 Body weight 57 kg Daylin Suppan FIELD MECHANIC.WASH WORKER Work Phone: [facility] 07-16-2024 10:26-0400 Diastolic blood pressure 70 mm[Hg] Daylin Suppan FIELD MECHANIC.WASH WORKER Work Phone: [facility] 07-16-2024 10:26-0400 Heart rate 77 /min Daylin Suppan FIELD MECHANIC.WASH WORKER Work Phone: [facility] 07-16-2024 10:26-0400 Respiratory rate 16 /min Daylin Suppan FIELD MECHANIC.WASH WORKER Work Phone: [facility] 07-16-2024 10:26-0400 SaO2% (BldA) [Mass fraction] 97 % Daylin Suppan FIELD MECHANIC.WASH WORKER Work Phone: [facility] 07-16-2024 10:26-0400 Systolic blood pressure 128 mm[Hg] Daylin Suppan FIELD MECHANIC.WASH WORKER Work Phone: [facility] 07-10-2024 09:23-0400 Body mass index (BMI) [Ratio] 21.11 kg/m2 Adelaida LAZCANOC Work Phone: [facility] 07-10-2024 09:23-0400 Body temperature 98.1 [degF] Adelaida TAVERAS-C Work Phone: [facility] 07-10-2024 09:23-0400 Body weight 55.79 kg Adelaida TAVERAS-C Work Phone: [facility] 07-10-2024 09:23-0400 Diastolic blood pressure 78 mm[Hg] Adelaida TAVERAS-C Work Phone: [facility] 07-10-2024 09:23-0400 Heart rate 78 /min Adelaida LAZCANOC Work Phone: [facility] 07-10-2024 09:23-0400 Respiratory rate 16 /min Adelaida TAVERAS-C Work Phone: [facility] 07-10-2024 09:23-0400 SaO2% (BldA) [Mass fraction] 97 % Adelaida TAVERAS-C Work Phone: [facility] 07-10-2024 09:23-0400 Systolic blood pressure 106 mm[Hg] Adelaida TAVERAS-C Work Phone: [facility] 06-19-2024 09:10-0400 Diastolic blood pressure 82 mm[Hg] Ryan Dalton MD Work Phone: [facility] Comment on above: cher bp average 06-19-2024 09:10-0400 Systolic blood pressure 138 mm[Hg] Ryan Dalton MD Work Phone: [facility] Comment on above: cher bp average 06-19-2024 09:04-0400 Body height 162.6 cm Ryan Dalton MD Work Phone: [facility] 06-19-2024 09:04-0400 Body mass index (BMI) [Ratio] 21.08 kg/m2 Ryan Dalton MD Work Phone: [facility] 06-19-2024 09:04-0400 Body temperature 98.01 [degF] Ryan Dalton MD Work Phone: [facility] 06-19-2024 09:04-0400 Body weight 55.7 kg Ryan Dalton MD Work Phone: [facility] 06-19-2024 09:04-0400 Heart rate 67 /min Ryan Dalton MD Work Phone: [facility] 06-19-2024 09:04-0400 Respiratory rate 12 /min Ryan Dalton MD Work Phone: [facility] 06-19-2024 09:04-0400 SaO2% (BldA) [Mass fraction] 97 % Ryan Dalton MD Work Phone: [facility] 06-17-2024 14:33-0400 Diastolic blood pressure 80 mm[Hg] Bridget De Luna MD Work Phone: [facility] 06-17-2024 14:33-0400 Systolic blood pressure 130 mm[Hg] Bridget De Luna MD Work Phone: [facility] 06-17-2024 13:59-0400 Body height 162.6 cm Bridget De Luna MD Work Phone: [facility] 06-17-2024 13:59-0400 Body mass index (BMI) [Ratio] 21.12 kg/m2 Bridget De Luna MD Work Phone: [facility] 06-17-2024 13:59-0400 Body weight 55.8 kg Bridget De Luna MD Work Phone: [facility] 06-17-2024 13:59-0400 Heart rate 76 /min Bridget De Luna MD Work Phone: [facility] 06-11-2024 09:34-0400 Body mass index (BMI) [Ratio] 21.11 kg/m2 Daylin Suppan FIELD MECHANIC.WASH WORKER Work Phone: [facility] 06-11-2024 09:34-0400 Body temperature 97.59 [degF] Daylin Suppan FIELD MECHANIC.WASH WORKER Work Phone: [facility] 06-11-2024 09:34-0400 Body weight 55.79 kg Daylin Suppan FIELD MECHANIC.WASH WORKER Work Phone: [facility] 06-11-2024 09:34-0400 Diastolic blood pressure 80 mm[Hg] Daylin Suppan FIELD MECHANIC.WASH WORKER Work Phone: [facility] 06-11-2024 09:34-0400 Heart rate 70 /min Daylin Suppan FIELD MECHANIC.WASH WORKER Work Phone: [facility] 06-11-2024 09:34-0400 Respiratory rate 16 /min Daylin Mendenhall FIELD MECHANIC.WASH WORKER Work Phone: [facility] 06-11-2024 09:34-0400 SaO2% (BldA) [Mass fraction] 97 % Daylin Mendenhall FIELD MECHANIC.WASH WORKER Work Phone: [facility] 06-11-2024 09:34-0400 Systolic blood pressure 122 mm[Hg] Daylin Mendenhall APRN.WASH WORKER Work Phone: [facility] 06-05-2024 08:50-0400 Body mass index (BMI) [Ratio] 21.46 kg/m2 Kathy Jansen APRN.WASH WORKER Work Phone: [facility] 06-05-2024 08:50-0400 Body weight 56.7 kg Kathy Jansen APRN.WASH WORKER Work Phone: [facility] 06-05-2024 08:50-0400 Diastolic blood pressure 78 mm[Hg] Kathy Jansen APRN.WASH WORKER Work Phone: [facility] 06-05-2024 08:50-0400 Heart rate 74 /min Kathy Jansen APRN.WASH WORKER Work Phone: [facility] 06-05-2024 08:50-0400 Respiratory rate 14 /min Kathy Jansen APRN.WASH WORKER Work Phone: [facility] 06-05-2024 08:50-0400 Systolic blood pressure 127 mm[Hg] Kathy Jansen APRN.WASH WORKER Work Phone: [facility] 05-23-2024 09:44-0400 Body mass index (BMI) [Ratio] 21.28 kg/m2 Daylin Mendenhall APRN.WASH WORKER Work Phone: [facility] 05-23-2024 09:44-0400 Body temperature 97.81 [degF] Daylin Mendenhall APRN.WASH WORKER Work Phone: [facility] 05-23-2024 09:44-0400 Body weight 56.25 kg Daylin Suppan FIELD MECHANIC.WASH WORKER Work Phone: [facility] 05-23-2024 09:44-0400 Diastolic blood pressure 80 mm[Hg] Daylin Suppan FIELD MECHANIC.WASH WORKER Work Phone: [facility] 05-23-2024 09:44-0400 Heart rate 87 /min Daylin Suppan FIELD MECHANIC.WASH WORKER Work Phone: [facility] 05-23-2024 09:44-0400 Respiratory rate 16 /min Daylin Suppan FIELD MECHANIC.WASH WORKER Work Phone: [facility] 05-23-2024 09:44-0400 SaO2% (BldA) [Mass fraction] 99 % Daylin Suppan FIELD MECHANIC.WASH WORKER Work Phone: [facility] 05-23-2024 09:44-0400 Systolic blood pressure 132 mm[Hg] Daylin Suppan [employer] WORK[employer] Work Phone: [facility] 05-10-2024 09:03-0400 Body mass index (BMI) [Ratio] 21.23 kg/m2 Daylin Suppan [employer] WORK[employer] Work Phone: [facility] 05-10-2024 09:03-0400 Body temperature 98.01 [degF] Daylin Suppan [employer] ME[employer] WORK[employer] Work Phone: [facility] 05-10-2024 09:03-0400 Body weight 56.1 kg Daylin Suppan [employer] WORK[employer] Work Phone: [facility] 05-10-2024 09:03-0400 Diastolic blood pressure 78 mm[Hg] Daylin Suppan FIELD MECHANIC.WASH WORKER Work Phone: [facility] 05-10-2024 09:03-0400 Heart rate 77 /min Daylin Suppan FIELD MECHANIC.WASH WORKER Work Phone: [facility] 05-10-2024 09:03-0400 Respiratory rate 16 /min Daylin Suppan FIELD MECHANIC.WASH WORKER Work Phone: [facility] 05-10-2024 09:03-0400 SaO2% (BldA) [Mass fraction] 98 % Daylin Suppan FIELD MECHANIC.WASH WORKER Work Phone: [facility] 05-10-2024 09:03-0400 Systolic blood pressure 134 mm[Hg] Daylin Suppan FIELD MECHANIC.WASH WORKER Work Phone: [facility] 04-30-2024 12:22-0400 Body mass index (BMI) [Ratio] 20.94 kg/m2 Daylin Suppan FIELD MECHANIC.WASH WORKER Work Phone: [facility] 04-30-2024 12:22-0400 Body temperature 97.39 [degF] Daylin Suppan FIELD MECHANIC.WASH WORKER Work Phone: [facility] 04-30-2024 12:22-0400 Body weight 55.34 kg Daylin Suppan FIELD MECHANIC.WASH WORKER Work Phone: [facility] 04-30-2024 12:22-0400 Diastolic blood pressure 72 mm[Hg] Daylin Suppan FIELD MECHANIC.WASH WORKER Work Phone: [facility] 04-30-2024 12:22-0400 Heart rate 72 /min Daylin Suppan FIELD MECHANIC.WASH WORKER Work Phone: [facility] 04-30-2024 12:22-0400 Respiratory rate 16 /min Daylin Suppan FIELD MECHANIC.WASH WORKER Work Phone: [facility] 04-30-2024 12:22-0400 SaO2% (BldA) [Mass fraction] 97 % Daylin Suppan FIELD MECHANIC.WASH WORKER Work Phone: [facility] 04-30-2024 12:22-0400 Systolic blood pressure 130 mm[Hg] Daylin Suppan FIELD MECHANIC.WASH WORKER Work Phone: [facility] 04-27-2024 09:22-0400 Body mass index (BMI) [Ratio] 21.08 kg/m2 Deng TAVERAS Work Phone: [facility] 04-27-2024 09:22-0400 Body temperature 97.2 [degF] Deng TAVERAS Work Phone: [facility] 04-27-2024 [id number] Body weight 55.7 kg Krislyn Aberegg PA Work Phone: [facility] 04-27-2024 09:22-0400 Diastolic blood pressure 81 mm[Hg] Krislyn Aberegg PA Work Phone: [facility] 04-27-2024 09:22-0400 Heart rate 85 /min Krislyn Aberegg PA Work Phone: [facility] 04-27-2024 09:22-0400 Respiratory rate 18 /min Krislyn Aberegg PA Work Phone: [facility] 04-27-2024 09:22-0400 SaO2% (BldA) [Mass fraction] 98 % Krislyn Aberegg PA Work Phone: [facility] 04-27-2024 09:22-0400 Systolic blood pressure 166 mm[Hg] Krislyn Aberegg PA Work Phone: [facility] 04-22-2024 08:28-0400 Body height 162.6 cm Bridget De Luna MD Work Phone: [facility] 04-22-2024 08:28-0400 Body mass index (BMI) [Ratio] 20.77 kg/m2 Bridget De Luna MD Work Phone: [facility] 04-22-2024 08:28-0400 Body temperature 97.39 [degF] Bridget De Luna MD Work Phone: [facility] 04-22-2024 08:28-0400 Body weight 54.88 kg Bridget De Luna MD Work Phone: [facility] 04-22-2024 08:28-0400 Diastolic blood pressure 74 mm[Hg] Bridget De Luna MD Work Phone: [facility] 04-22-2024 08:28-0400 Heart rate 67 /min Bridget De Luna MD Work Phone: [facility] 04-22-2024 08:28-0400 SaO2% (BldA) [Mass fraction] 98 % Bridget De Luna MD Work Phone: [facility] 04-22-2024 08:28-0400 Systolic blood pressure 130 mm[Hg] Bridget De Luna MD Work Phone: [facility] 04-15-2024 11:53-0400 Body mass index (BMI) [Ratio] 20.98 kg/m2 Vangie Podlogar FIELD MECHANIC.WASH WORKER Work Phone: [facility] 04-15-2024 11:53-0400 Body temperature 97.7 [degF] Vangie Podlogar FIELD MECHANIC.WASH WORKER Work Phone: [facility] 04-15-2024 11:53-0400 Body weight 55.43 kg Vangie Podlogar FIELD MECHANIC.WASH WORKER Work Phone: [facility] 04-15-2024 11:53-0400 Diastolic blood pressure 90 mm[Hg] Vangie Podlogar FIELD MECHANIC.WASH WORKER Work Phone: [facility] 04-15-2024 11:53-0400 Heart rate 81 /min Vangie Podlogar FIELD MECHANIC.WASH WORKER Work Phone: [facility] 04-15-2024 11:53-0400 Respiratory rate 16 /min Vangie Podlogar FIELD MECHANIC.WASH WORKER Work Phone: [facility] 04-15-2024 11:53-0400 SaO2% (BldA) [Mass fraction] 97 % Vangie Podlogar FIELD MECHANIC.WASH WORKER Work Phone: [facility] 04-15-2024 11:53-0400 Systolic blood pressure 132 mm[Hg] Vangie Podlogar FIELD MECHANIC.WASH WORKER Work Phone: [facility] 04-11-2024 11:09-0400 Body mass index (BMI) [Ratio] 20.98 kg/m2 Rachael Hammond FIELD MECHANIC.WASH WORKER Work Phone: [facility] 04-11-2024 11:09-0400 Body temperature 97.59 [degF] Rachael Manish FIELD MECHANIC.WASH WORKER Work Phone: [facility] 04-11-2024 11:09-0400 Body weight 55.43 kg Rachael Manish FIELD MECHANIC.WASH WORKER Work Phone: [facility] 04-11-2024 11:09-0400 Diastolic blood pressure 78 mm[Hg] Rachael Manish FIELD MECHANIC.WASH WORKER Work Phone: [facility] 04-11-2024 11:09-0400 Heart rate 73 /min Rachael Manish FIELD MECHANIC.WASH WORKER Work Phone: [facility] 04-11-2024 11:09-0400 Respiratory rate 16 /min Rachael Manish FIELD MECHANIC.WASH WORKER Work Phone: [facility] 04-11-2024 11:09-0400 SaO2% (BldA) [Mass fraction] 97 % Rachael Manish FIELD MECHANIC.WASH WORKER Work Phone: [facility] 04-11-2024 11:09-0400 Systolic blood pressure 112 mm[Hg] Rachael Manish FIELD MECHANIC.WASH WORKER Work Phone: [facility] 04-08-2024 09:25-0400 Body mass index (BMI) [Ratio] 21.04 kg/m2 Daylin Suppan FIELD MECHANIC.CERTIFIED ORTHOTIST/PEDORTHIST Work Phone: [facility] 04-08-2024 09:25-0400 Body weight 55.61 kg Daylin Suppan FIELD MECHANIC.CERTIFIED ORTHOTIST/PEDORTHIST Work Phone: [facility] 04-08-2024 09:25-0400 Diastolic blood pressure 64 mm[Hg] Daylin Suppan FIELD MECHANIC.CERTIFIED ORTHOTIST/PEDORTHIST Work Phone: [facility] 04-08-2024 09:25-0400 Heart rate 76 /min Daylin Suppan FIELD MECHANIC.CERTIFIED ORTHOTIST/PEDORTHIST Work Phone: [facility] 04-08-2024 09:25-0400 Respiratory rate 16 /min Daylin Suppan FIELD MECHANIC.CERTIFIED ORTHOTIST/PEDORTHIST Work Phone: [facility] 04-08-2024 09:25-0400 SaO2% (BldA) [Mass fraction] 96 % Daylin Suppan FIELD MECHANIC.CERTIFIED ORTHOTIST/PEDORTHIST Work Phone: [facility] 04-08-2024 09:25-0400 Systolic blood pressure 112 mm[Hg] Daylin Suppan FIELD MECHANIC.CERTIFIED ORTHOTIST/PEDORTHIST Work Phone: [facility] 04-02-2024 07:08-0400 Body mass index (BMI) [Ratio] 20.94 kg/m2 Chermiguel Higginshof FIELD MECHANIC.WASH WORKER Work Phone: [facility] 04-02-2024 07:08-0400 Body weight 55.34 kg Chermiguel Higginshof FIELD MECHANIC.WASH WORKER Work Phone: [facility] 04-02-2024 07:08-0400 Diastolic blood pressure 86 mm[Hg] Cher Tannhof FIELD MECHANIC.WASH WORKER Work Phone: [facility] 04-02-2024 07:08-0400 Heart rate 81 /min Cher Ronaldohof FIELD MECHANIC.WASH WORKER Work Phone: [facility] 04-02-2024 07:08-0400 Respiratory rate 16 /min Cher Tannhof FIELD MECHANIC.WASH WORKER Work Phone: [facility] 04-02-2024 07:08-0400 SaO2% (BldA) [Mass fraction] 98 % Cher Higginshof FIELD MECHANIC.WASH WORKER Work Phone: [facility] 04-02-2024 07:08-0400 Systolic blood pressure 140 mm[Hg] Cher Tannhof FIELD MECHANIC.WASH WORKER Work Phone: [facility] 03-29-2024 13:26-0400 Body mass index (BMI) [Ratio] 20.94 kg/m2 Daylin Suppan FIELD MECHANIC.CERTIFIED ORTHOTIST/PEDORTHIST Work Phone: [facility] 03-29-2024 13:26-0400 Body temperature 99.1 [degF] Daylin Suppan FIELD MECHANIC.CERTIFIED ORTHOTIST/PEDORTHIST Work Phone: [facility] 03-29-2024 13:26-0400 Body weight 55.34 kg Daylin Suppan FIELD MECHANIC.CERTIFIED ORTHOTIST/PEDORTHIST Work Phone: [facility] 03-29-2024 13:26-0400 Diastolic blood pressure 68 mm[Hg] Daylin Suppan FIELD MECHANIC.CERTIFIED ORTHOTIST/PEDORTHIST Work Phone: [facility] 03-29-2024 13:26-0400 Heart rate 77 /min Daylin Suppan FIELD MECHANIC.CERTIFIED ORTHOTIST/PEDORTHIST Work Phone: [facility] 03-29-2024 13:26-0400 Respiratory rate 16 /min Daylin Suppan FIELD MECHANIC.CERTIFIED ORTHOTIST/PEDORTHIST Work Phone: [facility] 03-29-2024 13:26-0400 SaO2% (BldA) [Mass fraction] 98 % Daylin Suppan FIELD MECHANIC.CERTIFIED ORTHOTIST/PEDORTHIST Work Phone: [facility] 03-29-2024 13:26-0400 Systolic blood pressure 118 mm[Hg] Daylin Suppan FIELD MECHANIC.CERTIFIED ORTHOTIST/PEDORTHIST Work Phone: [facility] 03-26-2024 09:15-0400 Body mass index (BMI) [Ratio] 20.98 kg/m2 Daylin Suppan FIELD MECHANIC.CERTIFIED ORTHOTIST/PEDORTHIST Work Phone: [facility] 03-26-2024 09:15-0400 Body weight 55.43 kg Daylin Suppan FIELD MECHANIC.CERTIFIED ORTHOTIST/PEDORTHIST Work Phone: [facility] 03-26-2024 09:15-0400 Diastolic blood pressure 76 mm[Hg] Daylin Suppan FIELD MECHANIC.CERTIFIED ORTHOTIST/PEDORTHIST Work Phone: [facility] 03-26-2024 09:15-0400 Heart rate 71 /min Daylin Suppan FIELD MECHANIC.CERTIFIED ORTHOTIST/PEDORTHIST Work Phone: [facility] 03-26-2024 09:15-0400 Respiratory rate 16 /min Daylin Suppan FIELD MECHANIC.CERTIFIED ORTHOTIST/PEDORTHIST Work Phone: [facility] 03-26-2024 09:15-0400 SaO2% (BldA) [Mass fraction] 97 % Daylin Suppan FIELD MECHANIC.CERTIFIED ORTHOTIST/PEDORTHIST Work Phone: [facility] 03-26-2024 09:15-0400 Systolic blood pressure 122 mm[Hg] Daylin Mendenhall FIELD MECHANIC.CERTIFIED ORTHOTIST/PEDORTHIST Work Phone: [facility] 03-22-2024 07:56-0400 Body mass index (BMI) [Ratio] 20.67 kg/m2 Vangie Podlogar FIELD MECHANIC.WASH WORKER Work Phone: [facility] 03-22-2024 07:56-0400 Body temperature 97.81 [degF] Vangie Podlogar FIELD MECHANIC.WASH WORKER Work Phone: [facility] 03-22-2024 07:56-0400 Body weight 54.61 kg Vangie Podlogar FIELD MECHANIC.WASH WORKER Work Phone: [facility] 03-22-2024 07:56-0400 Diastolic blood pressure 80 mm[Hg] Vangie Podlogar FIELD MECHANIC.WASH WORKER Work Phone: [facility] 03-22-2024 07:56-0400 Heart rate 82 /min Vangie Podlogar FIELD MECHANIC.WASH WORKER Work Phone: [facility] 03-22-2024 07:56-0400 Respiratory rate 18 /min Vangie Podlogar FIELD MECHANIC.WASH WORKER Work Phone: [facility] 03-22-2024 07:56-0400 SaO2% (BldA) [Mass fraction] 98 % Vangie Podlogar FIELD MECHANIC.WASH WORKER Work Phone: [facility] 03-22-2024 07:56-0400 Systolic blood pressure 120 mm[Hg] Vangie Podlogar FIELD MECHANIC.WASH WORKER Work Phone: [facility] 03-14-2024 11:53-0400 Body height 162.6 cm Stephani Merino DO Work Phone: [facility] 03-14-2024 11:53-0400 Body mass index (BMI) [Ratio] 21.22 kg/m2 Stephani Merino DO Work Phone: [facility] 03-14-2024 11:53-0400 Body weight 56.06 kg Stephani Merino DO Work Phone: [facility] 2024 08:23-0400 Body mass index (BMI) [Ratio] 21.11 kg/m2 Daylin Suppan FIELD MECHANIC.CERTIFIED ORTHOTIST/PEDORTHIST Work Phone: [facility] 2024 08:23-0400 Body weight 55.79 kg Daylin Suppan FIELD MECHANIC.CERTIFIED ORTHOTIST/PEDORTHIST Work Phone: [facility] 2024 08:23-0400 Diastolic blood pressure 78 mm[Hg] Daylin Suppan FIELD MECHANIC.CERTIFIED ORTHOTIST/PEDORTHIST Work Phone: [facility] 2024 08:23-0400 Heart rate 72 /min Daylin Suppan FIELD MECHANIC.CERTIFIED ORTHOTIST/PEDORTHIST Work Phone: [facility] 2024 08:23-0400 Respiratory rate 16 /min Daylin Suppan FIELD MECHANIC.CERTIFIED ORTHOTIST/PEDORTHIST Work Phone: [facility] 2024 08:23-0400 SaO2% (BldA) [Mass fraction] 97 % Daylni Suppan FIELD MECHANIC.CERTIFIED ORTHOTIST/PEDORTHIST Work Phone: [facility] 2024 08:23-0400 Systolic blood pressure 122 mm[Hg] Daylin Suppan FIELD MECHANIC.CERTIFIED ORTHOTIST/PEDORTHIST Work Phone: [facility] 02-27-2024 08:18-0400 Body mass index (BMI) [Ratio] 21.11 kg/m2 Daylin Suppan FIELD MECHANIC.CERTIFIED ORTHOTIST/PEDORTHIST Work Phone: [facility] 02-27-2024 08:18-0400 Body temperature 97.59 [degF] Daylin Suppan FIELD MECHANIC.CERTIFIED ORTHOTIST/PEDORTHIST Work Phone: [facility] 02-27-2024 08:18-0400 Body weight 55.79 kg Daylin Suppan FIELD MECHANIC.CERTIFIED ORTHOTIST/PEDORTHIST Work Phone: [facility] 02-27-2024 08:18-0400 Diastolic blood pressure 70 mm[Hg] Daylin Suppan FIELD MECHANIC.CERTIFIED ORTHOTIST/PEDORTHIST Work Phone: [facility] 02-27-2024 08:18-0400 Heart rate 78 /min Daylin Suppan FIELD MECHANIC.CERTIFIED ORTHOTIST/PEDORTHIST Work Phone: [facility] 02-27-2024 08:18-0400 Respiratory rate 16 /min Daylin Suppan FIELD MECHANIC.CERTIFIED ORTHOTIST/PEDORTHIST Work Phone: [facility] 02-27-2024 08:18-0400 SaO2% (BldA) [Mass fraction] 98 % Daylin Suppan FIELD MECHANIC.CERTIFIED ORTHOTIST/PEDORTHIST Work Phone: [facility] 02-27-2024 08:18-0400 Systolic blood pressure 120 mm[Hg] Daylin Suppan FIELD MECHANIC.CERTIFIED ORTHOTIST/PEDORTHIST Work Phone: [facility] 02-18-2024 14:16-0400 Body mass index (BMI) [Ratio] 21.19 kg/m2 Krislyn Aberegg PA Work Phone: [facility] 02-18-2024 14:16-0400 Body temperature 97.59 [degF] Krislyn Aberegg PA Work Phone: [facility] 02-18-2024 14:16-0400 Body weight 56 kg Krislyn Aberegg PA Work Phone: [facility] 02-18-2024 14:16-0400 Diastolic blood pressure 78 mm[Hg] Krislyn Aberegg PA Work Phone: [facility] 02-18-2024 14:16-0400 Heart rate 72 /min Krislyn Aberegg PA Work Phone: [facility] 02-18-2024 14:16-0400 Respiratory rate 18 /min Krislyn Aberegg PA Work Phone: [facility] 02-18-2024 14:16-0400 SaO2% (BldA) [Mass fraction] 97 % Krislyn Aberegg PA Work Phone: [facility] 02-18-2024 14:16-0400 Systolic blood pressure 138 mm[Hg] Krislyn Aberegg PA Work Phone: [facility] 02-09-2024 14:18-0400 Body mass index (BMI) [Ratio] 21.28 kg/m2 Daylin Suppan FIELD MECHANIC.CERTIFIED ORTHOTIST/PEDORTHIST Work Phone: [facility] 02-09-2024 14:18-0400 Body temperature 97.9 [degF] Daylin Suppan FIELD MECHANIC.CERTIFIED ORTHOTIST/PEDORTHIST Work Phone: [facility] 02-09-2024 14:18-0400 Body weight 56.25 kg Daylin Suppan FIELD MECHANIC.CERTIFIED ORTHOTIST/PEDORTHIST Work Phone: [facility] 02-09-2024 14:18-0400 Diastolic blood pressure 78 mm[Hg] Daylin Suppan FIELD MECHANIC.CERTIFIED ORTHOTIST/PEDORTHIST Work Phone: [facility] 02-09-2024 14:18-0400 Heart rate 76 /min Daylin Suppan FIELD MECHANIC.CERTIFIED ORTHOTIST/PEDORTHIST Work Phone: [facility] 02-09-2024 14:18-0400 SaO2% (BldA) [Mass fraction] 98 % Daylin Suppan FIELD MECHANIC.CERTIFIED ORTHOTIST/PEDORTHIST Work Phone: [facility] 02-09-2024 14:18-0400 Systolic blood pressure 120 mm[Hg] Adylin Suppan FIELD MECHANIC.CERTIFIED ORTHOTIST/PEDORTHIST Work Phone: [facility] 01-29-2024 12:38-0400 Body mass index (BMI) [Ratio] 20.6 kg/m2 Daylin Suppan FIELD MECHANIC.CERTIFIED ORTHOTIST/PEDORTHIST Work Phone: [facility] 01-29-2024 12:38-0400 Body temperature 98.29 [degF] Daylin Suppan FIELD MECHANIC.CERTIFIED ORTHOTIST/PEDORTHIST Work Phone: [facility] 01-29-2024 12:38-0400 Body weight 54.43 kg Daylin Suppan FIELD MECHANIC.CERTIFIED ORTHOTIST/PEDORTHIST Work Phone: [facility] 01-29-2024 12:38-0400 Diastolic blood pressure 76 mm[Hg] Daylin Suppan FIELD MECHANIC.CERTIFIED ORTHOTIST/PEDORTHIST Work Phone: [facility] 01-29-2024 12:38-0400 Heart rate 84 /min Daylin Suppan FIELD MECHANIC.CERTIFIED ORTHOTIST/PEDORTHIST Work Phone: [facility] 01-29-2024 12:38-0400 Respiratory rate 14 /min Daylin Suppan FIELD MECHANIC.CERTIFIED ORTHOTIST/PEDORTHIST Work Phone: [facility] 01-29-2024 12:38-0400 SaO2% (BldA) [Mass fraction] 98 % Daylin Suppan FIELD MECHANIC.CERTIFIED ORTHOTIST/PEDORTHIST Work Phone: [facility] 01-29-2024 12:38-0400 Systolic blood pressure 128 mm[Hg] Daylin Suppan FIELD MECHANIC.CERTIFIED ORTHOTIST/PEDORTHIST Work Phone: [facility] 01-23-2024 15:59-0400 Body mass index (BMI) [Ratio] 20.91 kg/m2 Ryan Dalton MD Work Phone: [facility] 01-23-2024 15:59-0400 Body temperature 97.9 [degF] Ryan Dalton MD Work Phone: [facility] 01-23-2024 15:59-0400 Body weight 55.25 kg Ryan Dalton MD Work Phone: [facility] 01-23-2024 15:59-0400 Diastolic blood pressure 78 mm[Hg] Ryan Dalton MD Work Phone: [facility] 01-23-2024 15:59-0400 Heart rate 84 /min Ryan Dalton MD Work Phone: [facility] 01-23-2024 15:59-0400 Respiratory rate 16 /min Ryan Dalton MD Work Phone: [facility] 01-23-2024 15:59-0400 SaO2% (BldA) [Mass fraction] 97 % Ryan Dalton MD Work Phone: [facility] 01-23-2024 15:59-0400 Systolic blood pressure 124 mm[Hg] Ryan Dalton MD Work Phone: [facility] 01-17-2024 09:51-0400 Diastolic blood pressure 78 mm[Hg] Bridget De Luna MD Work Phone: [facility] 01-17-2024 09:51-0400 Systolic blood pressure 130 mm[Hg] Bridget De Luna MD Work Phone: [facility] 01-17-2024 09:25-0400 Body height 162.6 cm Bridget De Luna MD Work Phone: [facility] 01-17-2024 09:25-0400 Body weight 54.88 kg Bridget De Luna MD Work Phone: [facility] 01-17-2024 09:25-0400 Heart rate 78 /min Bridget De Luna MD Work Phone: [facility] 01-17-2024 09:25-0400 SaO2% (BldA) [Mass fraction] 97 % Bridget De Luna MD Work Phone: [facility] 01-16-2024 08:26-0400 Body temperature 97.7 [degF] Daylin Suppan FIELD MECHANIC.CERTIFIED ORTHOTIST/PEDORTHIST Work Phone: [facility] 01-16-2024 08:26-0400 Body weight 56.25 kg Daylin Suppan FIELD MECHANIC.CERTIFIED ORTHOTIST/PEDORTHIST Work Phone: [facility] 01-16-2024 08:26-0400 Diastolic blood pressure 72 mm[Hg] Daylin Suppan FIELD MECHANIC.CERTIFIED ORTHOTIST/PEDORTHIST Work Phone: [facility] 01-16-2024 08:26-0400 Heart rate 79 /min Daylin Suppan FIELD MECHANIC.CERTIFIED ORTHOTIST/PEDORTHIST Work Phone: [facility] 01-16-2024 08:26-0400 Respiratory rate 16 /min Daylin Suppan FIELD MECHANIC.CERTIFIED ORTHOTIST/PEDORTHIST Work Phone: [facility] 01-16-2024 08:26-0400 SaO2% (BldA) [Mass fraction] 99 % Daylin Suppan FIELD MECHANIC.CERTIFIED ORTHOTIST/PEDORTHIST Work Phone: [facility] 01-16-2024 08:26-0400 Systolic blood pressure 128 mm[Hg] Daylin Suppan FIELD MECHANIC.CERTIFIED ORTHOTIST/PEDORTHIST Work Phone: [facility] 01-05-2024 10:38-0400 Body weight 55.61 kg Bridget De Luna MD Work Phone: [facility] 01-05-2024 10:38-0400 Diastolic blood pressure 60 mm[Hg] Bridget De Luna MD Work Phone: [facility] 01-05-2024 10:38-0400 Heart rate 92 /min Bridget De Luna MD Work Phone: [facility] 01-05-2024 10:38-0400 SaO2% (BldA) [Mass fraction] 96 % Bridget De Luna MD Work Phone: [facility] 01-05-2024 10:38-0400 Systolic blood pressure 118 mm[Hg] Bridget De Luna MD Work Phone: [facility] 01-03-2024 11:00-0400 Body weight 55.79 kg Lilly Escoto MD Work Phone: [facility] 01-03-2024 11:00-0400 Diastolic blood pressure 68 mm[Hg] Lilly Escoto MD Work Phone: [facility] 01-03-2024 11:00-0400 Systolic blood pressure 132 mm[Hg] Lilly Escoto MD Work Phone: [facility] 12-26-2023 08:28-0400 Body temperature 98.49 [degF] Daylin Suppan FIELD MECHANIC.CERTIFIED ORTHOTIST/PEDORTHIST Work Phone: [facility] 12-26-2023 08:28-0400 Body weight 54.88 kg Daylin Suppan FIELD MECHANIC.CERTIFIED ORTHOTIST/PEDORTHIST Work Phone: [facility] 12-26-2023 08:28-0400 Diastolic blood pressure 74 mm[Hg] Daylin Suppan FIELD MECHANIC.CERTIFIED ORTHOTIST/PEDORTHIST Work Phone: [facility] 12-26-2023 08:28-0400 Heart rate 93 /min Daylin Suppan FIELD MECHANIC.CERTIFIED ORTHOTIST/PEDORTHIST Work Phone: [facility] 12-26-2023 08:28-0400 Respiratory rate 15 /min Daylin Suppan FIELD MECHANIC.CERTIFIED ORTHOTIST/PEDORTHIST Work Phone: [facility] 12-26-2023 08:28-0400 SaO2% (BldA) [Mass fraction] 98 % Daylin Suppan FIELD MECHANIC.CERTIFIED ORTHOTIST/PEDORTHIST Work Phone: [facility] 12-26-2023 08:28-0400 Systolic blood pressure 130 mm[Hg] Daylin Suppan FIELD MECHANIC.CERTIFIED ORTHOTIST/PEDORTHIST Work Phone: [facility] 12-13-2023 10:35-0400 Body weight 54.7 kg Rachael Manish FIELD MECHANIC.WASH WORKER Work Phone: [facility] 12-13-2023 10:35-0400 Diastolic blood pressure 80 mm[Hg] Rachael Manish FIELD MECHANIC.WASH WORKER Work Phone: [facility] 12-13-2023 10:35-0400 Heart rate 80 /min Rachael Manish FIELD MECHANIC.WASH WORKER Work Phone: [facility] 12-13-2023 10:35-0400 Respiratory rate 18 /min Rachael Manish FIELD MECHANIC.WASH WORKER Work Phone: [facility] 12-13-2023 10:35-0400 Systolic blood pressure 128 mm[Hg] Rachael Manish FIELD MECHANIC.WASH WORKER Work Phone: [facility] 12-11-2023 09:29-0400 Body temperature 97.5 [degF] Adelaida TAVERAS-C Work Phone: [facility] 12-11-2023 09:29-0400 Body weight 53.52 kg Adelaida TAVERAS-C Work Phone: [facility] 12-11-2023 09:29-0400 Diastolic blood pressure 80 mm[Hg] Adelaida Pichardo PA-C Work Phone: [facility] 12-11-2023 09:29-0400 Heart rate 68 /min Adelaida TAVERAS-C Work Phone: [facility] 12-11-2023 09:29-0400 Respiratory rate 16 /min Adelaida Pichardo PA-C Work Phone: [facility] 12-11-2023 09:29-0400 Systolic blood pressure 118 mm[Hg] Adelaida Pichardo PA-C Work Phone: [facility] 12-07-2023 07:10-0500 Body temperature 97.7 [degF] Cher Higginshof FIELD MECHANIC.WASH WORKER Work Phone: [facility] 12-07-2023 07:10-0500 Diastolic blood pressure 78 mm[Hg] Cher Higginshof FIELD MECHANIC.WASH WORKER Work Phone: [facility] 12-07-2023 07:10-0500 Heart rate 80 /min Cher Higginshof FIELD MECHANIC.WASH WORKER Work Phone: [facility] 12-07-2023 07:10-0500 Respiratory rate 18 /min Cher Higginshof FIELD MECHANIC.WASH WORKER Work Phone: [facility] 12-07-2023 07:10-0500 SaO2% (BldA) [Mass fraction] 97 % Cher Higginshof FIELD MECHANIC.WASH WORKER Work Phone: [facility] 12-07-2023 07:10-0500 Systolic blood pressure 130 mm[Hg] Cher Higginshof FIELD MECHANIC.WASH WORKER Work Phone: [facility] 11-24-2023 08:19-0500 Body height 162.6 cm Bridget De Luna MD Work Phone: [facility] 11-24-2023 08:19-0500 Body temperature 98.4 [degF] Bridget De Luna MD Work Phone: [facility] 11-24-2023 08:19-0500 Body weight 54.43 kg Bridget De Luna MD Work Phone: [facility] 11-24-2023 08:19-0500 Diastolic blood pressure 64 mm[Hg] Bridget De Luna MD Work Phone: [facility] 11-24-2023 08:19-0500 Heart rate 80 /min Bridget De Luna MD Work Phone: [facility] 11-24-2023 08:19-0500 SaO2% (BldA) [Mass fraction] 99 % Bridget De Luna MD Work Phone: [facility] 11-24-2023 08:19-0500 Systolic blood pressure 120 mm[Hg] Bridget De Luna MD Work Phone: [facility] 11-15-2023 08:18-0500 Body temperature 98.2 [degF] Krislyn Aberegg PA Work Phone: [facility] 11-15-2023 08:18-0500 Body weight 53.25 kg Krislyn Aberegg PA Work Phone: [facility] 11-15-2023 08:18-0500 Diastolic blood pressure 82 mm[Hg] Krislyn Aberegg PA Work Phone: [facility] 11-15-2023 08:18-0500 Heart rate 80 /min Krislyn Aberegg PA Work Phone: [facility] 11-15-2023 08:18-0500 Respiratory rate 18 /min Krislyn Aberegg PA Work Phone: [facility] 11-15-2023 08:18-0500 SaO2% (BldA) [Mass fraction] 98 % Krislyn Aberegg PA Work Phone: [facility] 11-15-2023 08:18-0500 Systolic blood pressure 128 mm[Hg] Krislyn Aberegg PA Work Phone: [facility] 11-09-2023 07:41-0500 Body weight 53.07 kg Chermiguel Higginshof [employer] Work Phone: [facility] 11-09-2023 07:41-0500 Diastolic blood pressure 90 mm[Hg] Cher Tannhof [employer] WORK[employer] Work Phone: [facility] 11-09-2023 07:41-0500 Heart rate 69 /min Cher Tannhof [employer] WORK[employer] Work Phone: [facility] 11-09-2023 07:41-0500 Respiratory rate 16 /min Cher Higginshof [employer] WORK[employer] Work Phone: [facility] 11-09-2023 07:41-0500 SaO2% (BldA) [Mass fraction] 99 % Cher Higginshof [employer] WORK[employer] Work Phone: [facility] 11-09-2023 07:41-0500 Systolic blood pressure 130 mm[Hg] Cher Higginshof [employer] ME[employer] WORK[employer] Work Phone: [facility] 11-06-2023 09:54-0500 Body temperature 98.29 [degF] Daylin Suppan FIELD MECHANIC.CERTIFIED ORTHOTIST/PEDORTHIST Work Phone: [facility] 11-06-2023 09:54-0500 Body weight 53.07 kg Daylin Suppan FIELD MECHANIC.CERTIFIED ORTHOTIST/PEDORTHIST Work Phone: [facility] 11-06-2023 09:54-0500 Diastolic blood pressure 74 mm[Hg] Daylin Suppan FIELD MECHANIC.CERTIFIED ORTHOTIST/PEDORTHIST Work Phone: [facility] 11-06-2023 09:54-0500 Heart rate 68 /min Daylin Suppan FIELD MECHANIC.CERTIFIED ORTHOTIST/PEDORTHIST Work Phone: [facility] 11-06-2023 09:54-0500 Respiratory rate 16 /min Daylin Suppan FIELD MECHANIC.CERTIFIED ORTHOTIST/PEDORTHIST Work Phone: [facility] 11-06-2023 09:54-0500 SaO2% (BldA) [Mass fraction] 98 % Daylin Suppan FIELD MECHANIC.CERTIFIED ORTHOTIST/PEDORTHIST Work Phone: [facility] 11-06-2023 09:54-0500 Systolic blood pressure 122 mm[Hg] Daylin Suppan FIELD MECHANIC.CERTIFIED ORTHOTIST/PEDORTHIST Work Phone: [facility] 09-10-2023 08:47-0500 Body temperature 97.3 [degF] Kecia Cottrell FIELD MECHANIC.WASH WORKER Work Phone: [facility] 09-10-2023 08:47-0500 Body weight 53.52 kg Kecia Praisler-Wood FIELD MECHANIC.WASH WORKER Work Phone: [facility] 09-10-2023 08:47-0500 Diastolic blood pressure 78 mm[Hg] Kecia Praisler-Wood FIELD MECHANIC.WASH WORKER Work Phone: [facility] 09-10-2023 08:47-0500 Heart rate 80 /min Kecia Praisler-Wood FIELD MECHANIC.WASH WORKER Work Phone: [facility] 09-10-2023 08:47-0500 Respiratory rate 20 /min Kecia Praisler-Wood FIELD MECHANIC.WASH WORKER Work Phone: [facility] 09-10-2023 08:47-0500 SaO2% (BldA) [Mass fraction] 99 % Kecia Praisler-Wood FIELD MECHANIC.WASH WORKER Work Phone: [facility] 09-10-2023 08:47-0500 Systolic blood pressure 142 mm[Hg] Kecia Praisler-Wood FIELD MECHANIC.WASH WORKER Work Phone: [facility] 09-07-2023 07:38-0500 Body weight 53.89 kg Lilliam Delgado FIELD MECHANIC.WASH WORKER Work Phone: [facility] 09-07-2023 07:38-0500 Diastolic blood pressure 72 mm[Hg] Lilliam Delgado FIELD MECHANIC.WASH WORKER Work Phone: [facility] 09-07-2023 07:38-0500 Heart rate 68 /min Lilliam Delgado FIELD MECHANIC.WASH WORKER Work Phone: [facility] 09-07-2023 07:38-0500 Respiratory rate 12 /min Lilliam Delgado FIELD MECHANIC.WASH WORKER Work Phone: [facility] 09-07-2023 07:38-0500 Systolic blood pressure 120 mm[Hg] Lilliam Delgado FIELD MECHANIC.WASH WORKER Work Phone: [facility] 09-04-2023 11:26-0500 Body temperature 97.5 [degF] Rachael Manish FIELD MECHANIC.WASH WORKER Work Phone: [facility] 09-04-2023 11:26-0500 Body weight 53.98 kg Rachael Manish FIELD MECHANIC.WASH WORKER Work Phone: [facility] 09-04-2023 11:26-0500 Diastolic blood pressure 82 mm[Hg] Rachael Manish FIELD MECHANIC.WASH WORKER Work Phone: [facility] 09-04-2023 11:26-0500 Heart rate 92 /min Rachael Manish FIELD MECHANIC.WASH WORKER Work Phone: [facility] 09-04-2023 11:26-0500 Respiratory rate 16 /min Rachael Manish FIELD MECHANIC.WASH WORKER Work Phone: [facility] 09-04-2023 11:26-0500 SaO2% (BldA) [Mass fraction] 98 % Rachael Manish FIELD MECHANIC.WASH WORKER Work Phone: [facility] 09-04-2023 11:26-0500 Systolic blood pressure 130 mm[Hg] Rachael Manish FIELD MECHANIC.WASH WORKER Work Phone: [facility] 09-01-2023 09:05-0500 Body temperature 98.1 [degF] Lilliam Delgado FIELD MECHANIC.WASH WORKER Work Phone: [facility] 09-01-2023 09:05-0500 Body weight 52.89 kg Lilliam Delgado FIELD MECHANIC.WASH WORKER Work Phone: [facility] 09-01-2023 09:05-0500 Diastolic blood pressure 72 mm[Hg] Lilliam Delgado FIELD MECHANIC.WASH WORKER Work Phone: [facility] 09-01-2023 09:05-0500 Heart rate 74 /min Lilliam Delgado FIELD MECHANIC.WASH WORKER Work Phone: [facility] 09-01-2023 09:05-0500 SaO2% (BldA) [Mass fraction] 100 % Lilliam Delgado FIELD MECHANIC.WASH WORKER Work Phone: [facility] 09-01-2023 09:05-0500 Systolic blood pressure 138 mm[Hg] Lilliam Delgado FIELD MECHANIC.WASH WORKER Work Phone: [facility] 08-21-2023 09:26-0500 Diastolic blood pressure 86 mm[Hg] Bridget De Luna MD Work Phone: [facility] 08-21-2023 09:26-0500 Systolic blood pressure 128 mm[Hg] Bridget De Luna MD Work Phone: [facility] 08-21-2023 08:54-0500 Body height 162.6 cm Bridget De Luna MD Work Phone: [facility] 08-21-2023 08:54-0500 Body weight 53.16 kg Bridget De Luna MD Work Phone: [facility] 08-21-2023 08:54-0500 Heart rate 74 /min Bridget De Luna MD Work Phone: [facility] 08-21-2023 08:54-0500 SaO2% (BldA) [Mass fraction] 99 % Bridget De Luna MD Work Phone: [facility] 08-07-2023 08:34-0500 Diastolic blood pressure 76 mm[Hg] Herlinda Haagen FIELD MECHANIC.WASH WORKER Work Phone: [facility] 08-07-2023 08:34-0500 Heart rate 72 /min Herlinda Haagen FIELD MECHANIC.WASH WORKER Work Phone: [facility] 08-07-2023 08:34-0500 Respiratory rate 16 /min Herlinda Haagen FIELD MECHANIC.WASH WORKER Work Phone: [facility] 08-07-2023 08:34-0500 SaO2% (BldA) [Mass fraction] 99 % Herlinda Haagen FIELD MECHANIC.WASH WORKER Work Phone: [facility] 08-07-2023 08:34-0500 Systolic blood pressure 124 mm[Hg] Herlinda Haagen FIELD MECHANIC.WASH WORKER Work Phone: [facility] 08-04-2023 08:08-0400 Body temperature 97.81 [degF] Rachael Hammond FIELD MECHANIC.WASH WORKER Work Phone: [facility] 08-04-2023 08:08-0400 Body weight 53.07 kg Rachael Manish FIELD MECHANIC.WASH WORKER Work Phone: [facility] 08-04-2023 08:08-0400 Diastolic blood pressure 86 mm[Hg] Rachael Manish FIELD MECHANIC.WASH WORKER Work Phone: [facility] 08-04-2023 08:08-0400 Heart rate 83 /min Rachael Manish FIELD MECHANIC.WASH WORKER Work Phone: [facility] 08-04-2023 08:08-0400 Respiratory rate 16 /min Rachael Manish FIELD MECHANIC.WASH WORKER Work Phone: [facility] 08-04-2023 08:08-0400 SaO2% (BldA) [Mass fraction] 100 % Rachael Manish FIELD MECHANIC.WASH WORKER Work Phone: [facility] 08-04-2023 08:08-0400 Systolic blood pressure 124 mm[Hg] Rachael Manish FIELD MECHANIC.WASH WORKER Work Phone: [facility] 06-26-2023 07:42-0400 Body temperature 97.9 [degF] Adelaida Pichardo PA-C Work Phone: [facility] 06-26-2023 07:42-0400 Body weight 51.71 kg Adelaida Pichardo PA-C Work Phone: [facility] 06-26-2023 07:42-0400 Diastolic blood pressure 80 mm[Hg] Adelaida Pichardo PA-C Work Phone: [facility] 06-26-2023 07:42-0400 Heart rate 70 /min Adelaida Pichardo PA-C Work Phone: [facility] 06-26-2023 07:42-0400 Respiratory rate 16 /min Adelaida Pichardo PA-C Work Phone: [facility] 06-26-2023 07:42-0400 Systolic blood pressure 102 mm[Hg] Adelaida Pichardo PA-C Work Phone: [facility] 06-16-2023 07:23-0400 Body temperature 97.39 [degF] Esther Dial APRN.WASH WORKER Work Phone: [facility] 06-16-2023 07:23-0400 Body weight 51.35 kg Esther Dial APRN.WASH WORKER Work Phone: [facility] 06-16-2023 07:23-0400 Diastolic blood pressure 84 mm[Hg] Esther Dial APRN.WASH WORKER Work Phone: [facility] 06-16-2023 07:23-0400 Heart rate 81 /min Esther Dial APRN.WASH WORKER Work Phone: [facility] 06-16-2023 07:23-0400 Respiratory rate 20 /min Esther Dial APRN.WASH WORKER Work Phone: [facility] 06-16-2023 07:23-0400 SaO2% (BldA) [Mass fraction] 100 % Esther Dial APRN.WASH WORKER Work Phone: [facility] 06-16-2023 07:23-0400 Systolic blood pressure 128 mm[Hg] Esther Dial APRN.WASH WORKER Work Phone: [facility] 06-12-2023 10:01-0400 Body temperature 97.39 [degF] Kathy Jansen APRN.WASH WORKER Work Phone: [facility] 06-12-2023 10:01-0400 Body weight 50.8 kg Kathy Jansen APRN.WASH WORKER Work Phone: [facility] 06-12-2023 10:01-0400 Diastolic blood pressure 78 mm[Hg] Kathy Jansen APRN.WASH WORKER Work Phone: [facility] 06-12-2023 10:01-0400 Heart rate 76 /min Kathy Jansen APRN.WASH WORKER Work Phone: [facility] 06-12-2023 10:01-0400 Respiratory rate 14 /min Kathy Jansen APRN.WASH WORKER Work Phone: [facility] 06-12-2023 10:01-0400 Systolic blood pressure 120 mm[Hg] Kathy Jansen FIELD MECHANIC.WASH WORKER Work Phone: [facility] 06-07-2023 08:53-0400 Body temperature 97.59 [degF] Keica Praisler-Wood FIELD MECHANIC.WASH WORKER Work Phone: [facility] 06-07-2023 08:53-0400 Body weight 50.08 kg Kecia Praisler-Wood FIELD MECHANIC.WASH WORKER Work Phone: [facility] 06-07-2023 08:53-0400 Diastolic blood pressure 80 mm[Hg] Kecia Praisler-Wood FIELD MECHANIC.WASH WORKER Work Phone: [facility] 06-07-2023 08:53-0400 Heart rate 67 /min Kecia Praisler-Wood FIELD MECHANIC.WASH WORKER Work Phone: [facility] 06-07-2023 08:53-0400 Respiratory rate 18 /min Kecia Praisler-Wood FIELD MECHANIC.WASH WORKER Work Phone: [facility] 06-07-2023 08:53-0400 SaO2% (BldA) [Mass fraction] 98 % Kecia Praisler-Wood FIELD MECHANIC.WASH WORKER Work Phone: [facility] 06-07-2023 08:53-0400 Systolic blood pressure 130 mm[Hg] Kecia Praisler-Wood FIELD MECHANIC.WASH WORKER Work Phone: [facility] 06-01-2023 11:31-0400 Body height 162.6 cm Bridget De Luna MD Work Phone: [facility] 06-01-2023 11:31-0400 Body weight 51.53 kg Bridget De Luna MD Work Phone: [facility] 06-01-2023 11:31-0400 Diastolic blood pressure 74 mm[Hg] Bridget De Luna MD Work Phone: [facility] 06-01-2023 11:31-0400 Heart rate 86 /min Bridget De Luna MD Work Phone: [facility] 06-01-2023 11:31-0400 Systolic blood pressure 129 mm[Hg] Bridget De Luna MD Work Phone: [facility] 05-23-2023 09:44-0400 Diastolic blood pressure 90 mm[Hg] Herlinda Haagen FIELD MECHANIC.WASH WORKER Work Phone: [facility] 05-23-2023 09:44-0400 Heart rate 69 /min Herlinda Haagen FIELD MECHANIC.WASH WORKER Work Phone: [facility] 05-23-2023 09:44-0400 Respiratory rate 16 /min Herlinda Haagen FIELD MECHANIC.WASH WORKER Work Phone: [facility] 05-23-2023 09:44-0400 SaO2% (BldA) [Mass fraction] 97 % Herlinda Haagen FIELD MECHANIC.WASH WORKER Work Phone: [facility] 05-23-2023 09:44-0400 Systolic blood pressure 124 mm[Hg] Herlinda Haagen FIELD MECHANIC.WASH WORKER Work Phone: [facility] 05-18-2023 11:22-0400 Body height 162.6 cm Bridget De Luna MD Work Phone: [facility] 05-18-2023 11:22-0400 Body temperature 97.59 [degF] Bridget De Luna MD Work Phone: [facility] 05-18-2023 11:22-0400 Body weight 50.53 kg Bridget De Luna MD Work Phone: [facility] 05-18-2023 11:22-0400 Diastolic blood pressure 78 mm[Hg] Bridget De Luna MD Work Phone: [facility] 05-18-2023 11:22-0400 Heart rate 78 /min Bridget De Luna MD Work Phone: [facility] 05-18-2023 11:22-0400 SaO2% (BldA) [Mass fraction] 99 % Bridget De Luna MD Work Phone: [facility] 05-18-2023 11:22-0400 Systolic blood pressure 144 mm[Hg] Bridget De Luna MD Work Phone: [facility] 04-27-2023 11:23-0400 Body height 162.6 cm Bridget De Luna MD Work Phone: [facility] 04-27-2023 11:23-0400 Body weight 51.35 kg Bridget De Luna MD Work Phone: [facility] 04-27-2023 11:23-0400 Diastolic blood pressure 66 mm[Hg] Bridget De Luna MD Work Phone: [facility] 04-27-2023 11:23-0400 Heart rate 87 /min Bridget De Luna MD Work Phone: [facility] 04-27-2023 11:23-0400 SaO2% (BldA) [Mass fraction] 98 % Bridget De Luna MD Work Phone: [facility] 04-27-2023 11:23-0400 Systolic blood pressure 118 mm[Hg] Bridget De Luna MD Work Phone: [facility] 04-07-2023 12:46-0400 Body weight 49.44 kg Cher Tannhof FIELD MECHANIC.WASH WORKER Work Phone: [facility] 04-07-2023 12:46-0400 Diastolic blood pressure 80 mm[Hg] Cher Tannhof FIELD MECHANIC.WASH WORKER Work Phone: [facility] 04-07-2023 12:46-0400 Heart rate 97 /min Cher Tannhof FIELD MECHANIC.WASH WORKER Work Phone: [facility] 04-07-2023 12:46-0400 Respiratory rate 16 /min Cher Tannhof FIELD MECHANIC.WASH WORKER Work Phone: [facility] 04-07-2023 12:46-0400 SaO2% (BldA) [Mass fraction] 98 % Cher Tannhof FIELD MECHANIC.WASH WORKER Work Phone: [facility] 04-07-2023 12:46-0400 Systolic blood pressure 118 mm[Hg] Cher Tannhof FIELD MECHANIC.WASH WORKER Work Phone: [facility] 04-06-2023 13:55-0400 Body temperature 99.19 [degF] Esther Dial FIELD MECHANIC.WASH WORKER Work Phone: [facility] 04-06-2023 13:55-0400 Body weight 50.35 kg Esther Dial FIELD MECHANIC.WASH WORKER Work Phone: [facility] 04-06-2023 13:55-0400 Diastolic blood pressure 80 mm[Hg] Esther Dial FIELD MECHANIC.WASH WORKER Work Phone: [facility] 04-06-2023 13:55-0400 Heart rate 108 /min Esther Dial FIELD MECHANIC.WASH WORKER Work Phone: [facility] 04-06-2023 13:55-0400 Respiratory rate 16 /min Esther Dial FIELD MECHANIC.WASH WORKER Work Phone: [facility] 04-06-2023 13:55-0400 SaO2% (BldA) [Mass fraction] 97 % Esther Dial FIELD MECHANIC.WASH WORKER Work Phone: [facility] 04-06-2023 13:55-0400 Systolic blood pressure 118 mm[Hg] Esther Dial FIELD MECHANIC.WASH WORKER Work Phone: [facility] 03-30-2023 11:13-0400 Body weight 50.8 kg Cher Bro FIELD MECHANIC.WASH WORKER Work Phone: [facility] 03-30-2023 11:13-0400 Diastolic blood pressure 60 mm[Hg] Cher Higginshof FIELD MECHANIC.WASH WORKER Work Phone: [facility] 03-30-2023 11:13-0400 Heart rate 85 /min Cher Higginshof FIELD MECHANIC.WASH WORKER Work Phone: [facility] 03-30-2023 11:13-0400 Respiratory rate 16 /min Cher Ronaldohof FIELD MECHANIC.WASH WORKER Work Phone: [facility] 03-30-2023 11:13-0400 SaO2% (BldA) [Mass fraction] 97 % Cher Higginshof FIELD MECHANIC.WASH WORKER Work Phone: [facility] 03-30-2023 11:13-0400 Systolic blood pressure 110 mm[Hg] Cher Crabtree APRN.CNP Work Phone: [facility] 03-18-2023 09:07-0400 Body temperature 98.91 [degF] Ryan Dalton MD Work Phone: [facility] 03-18-2023 09:07-0400 Body weight 51.08 kg Ryan Dalton MD Work Phone: [facility] 03-18-2023 09:07-0400 Diastolic blood pressure 72 mm[Hg] Ryan Dalton MD Work Phone: [facility] 03-18-2023 09:07-0400 Heart rate 83 /min Ryan Dalton MD Work Phone: [facility] 03-18-2023 09:07-0400 Respiratory rate 16 /min Ryan Dalton MD Work Phone: [facility] 03-18-2023 09:07-0400 SaO2% (BldA) [Mass fraction] 97 % Ryan Dalton MD Work Phone: [facility] 03-18-2023 09:07-0400 Systolic blood pressure 124 mm[Hg] Ryan Dalton MD Work Phone: [facility] 03-16-2023 11:08-0400 Body height 162.6 cm Bridget De Luna MD Work Phone: [facility] 03-16-2023 11:08-0400 Body temperature 98.71 [degF] Bridget De Luna MD Work Phone: [facility] 03-16-2023 11:08-0400 Body weight 52.25 kg Bridget De Luna MD Work Phone: [facility] 03-16-2023 11:08-0400 Diastolic blood pressure 68 mm[Hg] Bridget De Luna MD Work Phone: [facility] 03-16-2023 11:08-0400 Heart rate 77 /min Bridget De Luna MD Work Phone: [facility] 03-16-2023 11:08-0400 SaO2% (BldA) [Mass fraction] 99 % Bridget De Luna MD Work Phone: [facility] 03-16-2023 11:08-0400 Systolic blood pressure 118 mm[Hg] Bridget De Luna MD Work Phone: [facility] 03-06-2023 11:02-0400 Body weight 51.71 kg Kelly Endeavor FIELD MECHANIC.WASH WORKER Work Phone: [facility] 03-06-2023 11:02-0400 Diastolic blood pressure 76 mm[Hg] Kelly Endeavor FIELD MECHANIC.WASH WORKER Work Phone: [facility] 03-06-2023 11:02-0400 Systolic blood pressure 130 mm[Hg] Kelly Endeavor FIELD MECHANIC.WASH WORKER Work Phone: [facility] 03-02-2023 10:09-0400 Body weight 51.71 kg Kathy Knoble FIELD MECHANIC.WASH WORKER Work Phone: [facility] 03-02-2023 10:09-0400 Diastolic blood pressure 76 mm[Hg] Kathy Knoble FIELD MECHANIC.WASH WORKER Work Phone: [facility] 03-02-2023 10:09-0400 Heart rate 76 /min Kathy Knoble FIELD MECHANIC.WASH WORKER Work Phone: [facility] 03-02-2023 10:09-0400 Respiratory rate 14 /min Kathy Sonuoble FIELD MECHANIC.WASH WORKER Work Phone: [facility] 03-02-2023 10:09-0400 Systolic blood pressure 120 mm[Hg] Kathy Knoble FIELD MECHANIC.WASH WORKER Work Phone: [facility] 02-27-2023 08:21-0400 Body temperature 97.5 [degF] Nae Gould MD Work Phone: [facility] 02-27-2023 08:21-0400 Body weight 51.26 kg Nae Gould MD Work Phone: [facility] 02-27-2023 08:21-0400 Diastolic blood pressure 82 mm[Hg] Nae Gould MD Work Phone: [facility] 02-27-2023 08:21-0400 Heart rate 79 /min Nae Gould MD Work Phone: [facility] 02-27-2023 08:21-0400 Respiratory rate 21 /min Nae Gould MD Work Phone: [facility] 02-27-2023 08:21-0400 SaO2% (BldA) [Mass fraction] 99 % Nae Gould MD Work Phone: [facility] 02-27-2023 08:21-0400 Systolic blood pressure 142 mm[Hg] Nae Gould MD Work Phone: [facility] 01-26-2023 08:56-0400 Body height 162.6 cm David Ortega MD Work Phone: [facility] 01-26-2023 08:56-0400 Body temperature 97.5 [degF] David Ortega MD Work Phone: [facility] 01-26-2023 08:56-0400 Body weight 52.8 kg David Ortega MD Work Phone: [facility] 01-26-2023 08:56-0400 Diastolic blood pressure 78 mm[Hg] David Ortega MD Work Phone: [facility] 01-26-2023 08:56-0400 Heart rate 85 /min David Ortega MD Work Phone: [facility] 01-26-2023 08:56-0400 SaO2% (BldA) [Mass fraction] 99 % David Ortega MD Work Phone: [facility] 01-26-2023 08:56-0400 Systolic blood pressure 124 mm[Hg] David Ortega MD Work Phone: [facility] 01-16-2023 09:18-0400 Body height 162.6 cm Bridget De Luna MD Work Phone: [facility] 01-16-2023 09:18-0400 Body weight 51.8 kg Bridget De Luna MD Work Phone: [facility] 01-16-2023 09:18-0400 Diastolic blood pressure 76 mm[Hg] Bridget De Luna MD Work Phone: [facility] 01-16-2023 09:18-0400 Heart rate 78 /min Bridget De Luna MD Work Phone: [facility] 01-16-2023 09:18-0400 SaO2% (BldA) [Mass fraction] 98 % Bridget De Luna MD Work Phone: [facility] 01-16-2023 09:18-0400 Systolic blood pressure 136 mm[Hg] Bridget De Luna MD Work Phone: [facility] 12-20-2022 10:22-0400 Diastolic blood pressure 80 mm[Hg] Herlinda Haagen FIELD MECHANIC.WASH WORKER Work Phone: [facility] 12-20-2022 10:22-0400 Heart rate 65 /min Herlinda Haagen FIELD MECHANIC.WASH WORKER Work Phone: [facility] 12-20-2022 10:22-0400 Respiratory rate 18 /min Herlinda Haagen FIELD MECHANIC.WASH WORKER Work Phone: [facility] 12-20-2022 10:22-0400 SaO2% (BldA) [Mass fraction] 95 % Herlinda Haagen FIELD MECHANIC.WASH WORKER Work Phone: [facility] 12-20-2022 10:22-0400 Systolic blood pressure 140 mm[Hg] Herlinda Haagen FIELD MECHANIC.WASH WORKER Work Phone: [facility] 11-17-2022 13:29-0500 Body temperature 97.2 [degF] NA Cope PA-C Work Phone: [facility] 11-17-2022 13:29-0500 Body weight 51.26 kg NA Cope PA-C Work Phone: [facility] 11-17-2022 13:29-0500 Diastolic blood pressure 72 mm[Hg] NA Cope PA-C Work Phone: [facility] 11-17-2022 13:29-0500 Heart rate 73 /min NA Cope PA-C Work Phone: [facility] 11-17-2022 13:29-0500 SaO2% (BldA) [Mass fraction] 97 % NA Cope PA-C Work Phone: [facility] 11-17-2022 13:29-0500 Systolic blood pressure 112 mm[Hg] NA Cope PA-C Work Phone: [facility] 11-05-2022 11:14-0500 Body temperature 97 [degF] Bridget De Luna MD Work Phone: [facility] 11-05-2022 11:14-0500 Body weight 52.16 kg Bridget De Luna MD Work Phone: [facility] 11-05-2022 11:14-0500 Diastolic blood pressure 68 mm[Hg] Bridget De Luna MD Work Phone: [facility] 11-05-2022 11:14-0500 Heart rate 73 /min Bridget De Luna MD Work Phone: [facility] 11-05-2022 11:14-0500 Respiratory rate 16 /min Bridget De Luna MD Work Phone: [facility] 11-05-2022 11:14-0500 SaO2% (BldA) [Mass fraction] 99 % Bridget De Luna MD Work Phone: [facility] 11-05-2022 11:14-0500 Systolic blood pressure 110 mm[Hg] Bridget De Luna MD Work Phone: [facility] 10-22-2022 10:52-0500 Body temperature 98.2 [degF] Bayron Wesley DO Work Phone: [facility] 10-22-2022 10:52-0500 Body weight 51.35 kg Bayron Wesley DO Work Phone: [facility] 10-22-2022 10:52-0500 Diastolic blood pressure 62 mm[Hg] Bayron Wesley DO Work Phone: [facility] 10-22-2022 10:52-0500 Heart rate 74 /min Bayron Wesley DO Work Phone: [facility] 10-22-2022 10:52-0500 Respiratory rate 12 /min Bayron Wesley DO Work Phone: [facility] 10-22-2022 10:52-0500 SaO2% (BldA) [Mass fraction] 98 % Bayron Wesley DO Work Phone: [facility] 10-22-2022 10:52-0500 Systolic blood pressure 104 mm[Hg] Bayron Wesley DO Work Phone: [facility] 10-10-2022 09:02-0500 Body temperature 97.3 [degF] Bridget De Luna MD Work Phone: [facility] 10-10-2022 09:02-0500 Body weight 52.16 kg Bridget De Luna MD Work Phone: [facility] 10-10-2022 09:02-0500 Diastolic blood pressure 78 mm[Hg] Bridget De Luna MD Work Phone: [facility] 10-10-2022 09:02-0500 Heart rate 58 /min Bridget De Luna MD Work Phone: [facility] 10-10-2022 09:02-0500 SaO2% (BldA) [Mass fraction] 98 % Bridget De Luna MD Work Phone: [facility] 10-10-2022 09:02-0500 Systolic blood pressure 120 mm[Hg] Bridget De Luna MD Work Phone: [facility] 09-29-2022 11:35-0500 Body weight 52.89 kg Bridget De Luna MD Work Phone: [facility] 09-29-2022 11:35-0500 Diastolic blood pressure 62 mm[Hg] Bridget De Luna MD Work Phone: [facility] 09-29-2022 11:35-0500 Heart rate 82 /min Bridget De Luna MD Work Phone: [facility] 09-29-2022 11:35-0500 Respiratory rate 16 /min Bridget De Luna MD Work Phone: [facility] 09-29-2022 11:35-0500 SaO2% (BldA) [Mass fraction] 96 % Bridget De Luna MD Work Phone: [facility] 09-29-2022 11:35-0500 Systolic blood pressure 108 mm[Hg] Bridget De Luna MD Work Phone: [facility] 09-20-2022 09:28-0500 Body temperature 98.2 [degF] Adelaida Pichardo PA-C Work Phone: [facility] 09-20-2022 09:28-0500 Body weight 52.16 kg Adelaida Pichardo PA-C Work Phone: [facility] 09-20-2022 09:28-0500 Diastolic blood pressure 86 mm[Hg] Adelaida Pichardo PA-C Work Phone: [facility] 09-20-2022 09:28-0500 Heart rate 80 /min Adelaida Pichardo PA-C Work Phone: [facility] 09-20-2022 09:28-0500 Respiratory rate 16 /min Adelaida Pichardo PA-C Work Phone: [facility] 09-20-2022 09:28-0500 Systolic blood pressure 112 mm[Hg] Adelaida Pichardo PA-C Work Phone: [facility] 09-07-2022 10:35-0500 Body temperature 98.91 [degF] Rachael Nixonman FIELD MECHANIC.WASH WORKER Work Phone: [facility] 09-07-2022 10:35-0500 Body weight 52.07 kg Rachael Hammond FIELD MECHANIC.WASH WORKER Work Phone: [facility] 09-07-2022 10:35-0500 Diastolic blood pressure 70 mm[Hg] Rachael Manish FIELD MECHANIC.WASH WORKER Work Phone: [facility] 09-07-2022 10:35-0500 Heart rate 76 /min Rachael Manish FIELD MECHANIC.WASH WORKER Work Phone: [facility] 09-07-2022 10:35-0500 Respiratory rate 16 /min Rachael Manish FIELD MECHANIC.WASH WORKER Work Phone: [facility] 09-07-2022 10:35-0500 SaO2% (BldA) [Mass fraction] 96 % Rachael Manish FIELD MECHANIC.WASH WORKER Work Phone: [facility] 09-07-2022 10:35-0500 Systolic blood pressure 110 mm[Hg] Rachael Manish FIELD MECHANIC.WASH WORKER Work Phone: [facility] 08-18-2022 07:24-0500 Body weight 51.71 kg Cher Tannhof FIELD MECHANIC.WASH WORKER Work Phone: [facility] 08-18-2022 07:24-0500 Diastolic blood pressure 90 mm[Hg] Cher Tannhof FIELD MECHANIC.WASH WORKER Work Phone: [facility] 08-18-2022 07:24-0500 Heart rate 78 /min Cher Tannhof FIELD MECH[employer]IC.W[employer] WORKER Work Phone: [facility] 08-18-2022 07:24-0500 Respiratory rate 16 /min Cher Tannhof FIELD MECH[employer]IC.WASH WORKER Work Phone: [facility] 08-18-2022 07:24-0500 SaO2% (BldA) [Mass fraction] 97 % Cher Tannhof FIELD MECH[employer]IC.WASH WORKER Work Phone: [facility] 08-18-2022 07:24-0500 Systolic blood pressure 128 mm[Hg] Cher Tannhof FIELD MECHANIC.WASH WORKER Work Phone: [facility] 07-14-2022 11:33-0400 Body temperature 97.3 [degF] Bridget De Luna MD Work Phone: [facility] 07-14-2022 11:33-0400 Body weight 51.26 kg Bridget De Luna MD Work Phone: [facility] 07-14-2022 11:33-0400 Diastolic blood pressure 65 mm[Hg] Bridget De Luna MD Work Phone: [facility] 07-14-2022 11:33-0400 Heart rate 76 /min Bridget DeL una MD Work Phone: [facility] 07-14-2022 11:33-0400 Systolic blood pressure 100 mm[Hg] Bridget De Luna MD Work Phone: [facility] 06-08-2022 09:22-0400 Body temperature 97 [degF] Bayron Wesley DO Work Phone: [facility] 06-08-2022 09:22-0400 Body weight 51.71 kg Bayron Wesley DO Work Phone: [facility] 06-08-2022 09:22-0400 Diastolic blood pressure 72 mm[Hg] Bayron Wesley DO Work Phone: [facility] 06-08-2022 09:22-0400 Heart rate 80 /min Bayron Wesley DO Work Phone: [facility] 06-08-2022 09:22-0400 Respiratory rate 20 /min Bayron Wesley DO Work Phone: [facility] 06-08-2022 09:22-0400 Systolic blood pressure 116 mm[Hg] Bayron Wesley DO Work Phone: [facility] 06-07-2022 10:04-0400 Body weight 52.16 kg Herlinda Haagen FIELD MECHANIC.WASH WORKER Work Phone: [facility] 06-07-2022 10:04-0400 Diastolic blood pressure 80 mm[Hg] Herlinda Haagen FIELD MECHANIC.WASH WORKER Work Phone: [facility] 06-07-2022 10:04-0400 Heart rate 71 /min Herlinda Haagen FIELD MECHANIC.WASH WORKER Work Phone: [facility] 06-07-2022 10:04-0400 Respiratory rate 18 /min Herlinda Haagen FIELD MECHANIC.WASH WORKER Work Phone: [facility] 06-07-2022 10:04-0400 SaO2% (BldA) [Mass fraction] 98 % Herlinda Jett FIELD MECHANIC.WASH WORKER Work Phone: [facility] 06-07-2022 10:04-0400 Systolic blood pressure 108 mm[Hg] Herlinda Jett FIELD MECHANIC.WASH WORKER Work Phone: [facility] 05-30-2022 07:26-0400 Body temperature 97.59 [degF] Adelaida Pichardo PA-C Work Phone: [facility] 05-30-2022 07:26-0400 Body weight 50.8 kg Adelaida Pichardo PA-C Work Phone: [facility] 05-30-2022 07:26-0400 Diastolic blood pressure 78 mm[Hg] Adelaida Pichardo PA-C Work Phone: [facility] 05-30-2022 07:26-0400 Heart rate 72 /min Adelaida Pichardo PA-C Work Phone: [facility] 05-30-2022 07:26-0400 Respiratory rate 18 /min Adelaidashira Pichardo PA-C Work Phone: [facility] 05-30-2022 07:26-0400 Systolic blood pressure 110 mm[Hg] Adelaida Pichardo PA-C Work Phone: [facility] 05-27-2022 14:35-0400 Body temperature 97.59 [degF] Layo Seals FIELD MECHANIC.WASH WORKER Work Phone: [facility] 05-27-2022 14:35-0400 Body weight 50.62 kg Layo Seals FIELD MECHANIC.WASH WORKER Work Phone: [facility] 05-27-2022 14:35-0400 Diastolic blood pressure 74 mm[Hg] Layo Seals FIELD MECHANIC.WASH WORKER Work Phone: [facility] 05-27-2022 14:35-0400 Heart rate 81 /min Layo Seals FIELD MECHANIC.WASH WORKER Work Phone: [facility] 05-27-2022 14:35-0400 Respiratory rate 16 /min Layo Arnel FIELD MECHANIC.WASH WORKER Work Phone: [facility] 05-27-2022 14:35-0400 SaO2% (BldA) [Mass fraction] 97 % Layo Arnel FIELD MECHANIC.WASH WORKER Work Phone: [facility] 05-27-2022 14:35-0400 Systolic blood pressure 126 mm[Hg] Layo Arnel FIELD MECHANIC.WASH WORKER Work Phone: [facility] 05-24-2022 09:26-0400 Body temperature 97.9 [degF] Em Slade FIELD MECHANIC.WASH WORKER Work Phone: [facility] 05-24-2022 09:26-0400 Body weight 51.71 kg Em Slade FIELD MECHANIC.WASH WORKER Work Phone: [facility] 05-24-2022 09:26-0400 Diastolic blood pressure 68 mm[Hg] Em Slade FIELD MECHANIC.WASH WORKER Work Phone: [facility] 05-24-2022 09:26-0400 Heart rate 86 /min Em Slade FIELD MECHANIC.WASH WORKER Work Phone: [facility] 05-24-2022 09:26-0400 Respiratory rate 16 /min Em Slade FIELD MECHANIC.WASH WORKER Work Phone: [facility] 05-24-2022 09:26-0400 SaO2% (BldA) [Mass fraction] 99 % Em Slade FIELD MECHANIC.WASH WORKER Work Phone: [facility] 05-24-2022 09:26-0400 Systolic blood pressure 120 mm[Hg] Em Slade FIELD MECHANIC.WASH WORKER Work Phone: [facility] 05-13-2022 07:02-0400 Body weight 50.35 kg Cher Finnf FIELD MECHANIC.WASH WORKER Work Phone: [facility] 05-13-2022 07:02-0400 Diastolic blood pressure 70 mm[Hg] Cher Tannhof FIELD MECHANIC.WASH WORKER Work Phone: [facility] 05-13-2022 07:02-0400 Heart rate 71 /min Cher Tannhof FIELD MECHANIC.WASH WORKER Work Phone: [facility] 05-13-2022 07:02-0400 Respiratory rate 16 /min Cher Tannhof FIELD MECHANIC.WASH WORKER Work Phone: [facility] 05-13-2022 07:02-0400 SaO2% (BldA) [Mass fraction] 99 % Cher Tannhof FIELD MECHANIC.WASH WORKER Work Phone: [facility] 05-13-2022 07:02-0400 Systolic blood pressure 130 mm[Hg] Cher Tannhof FIELD MECHANIC.WASH WORKER Work Phone: [facility] 05-10-2022 19:02-0400 Body temperature 97.59 [degF] Ivana Kaufman FIELD MECHANIC.WASH WORKER Work Phone: [facility] 05-10-2022 19:02-0400 Body weight 49.9 kg Ivana Mandeep FIELD MECHANIC.WASH WORKER Work Phone: [facility] 05-10-2022 19:02-0400 Diastolic blood pressure 70 mm[Hg] Ivana Mandeep FIELD MECHANIC.WASH WORKER Work Phone: [facility] 05-10-2022 19:02-0400 Heart rate 112 /min Ivana Mandeep FIELD MECHANIC.WASH WORKER Work Phone: [facility] 05-10-2022 19:02-0400 Respiratory rate 16 /min Ivana Mandeep FIELD MECHANIC.WASH WORKER Work Phone: [facility] 05-10-2022 19:02-0400 SaO2% (BldA) [Mass fraction] 99 % Ivana Mandeep FIELD MECHANIC.WASH WORKER Work Phone: [facility] 05-10-2022 19:02-0400 Systolic blood pressure 122 mm[Hg] Ivana Mandeep FIELD MECHANIC.WASH WORKER Work Phone: [facility] 04-21-2022 10:43-0400 Body temperature 97.81 [degF] Jonah Cooley FIELD MECHANIC.WASH WORKER Work Phone: [facility] 04-21-2022 10:43-0400 Body weight 51.44 kg Jonah Randallbury FIELD MECHANIC.WASH WORKER Work Phone: [facility] 04-21-2022 10:43-0400 Diastolic blood pressure 76 mm[Hg] Jonah Pendlebury FIELD MECHANIC.WASH WORKER Work Phone: [facility] 04-21-2022 10:43-0400 Heart rate 90 /min Jonah Pendlebury FIELD MECHANIC.WASH WORKER Work Phone: [facility] 04-21-2022 10:43-0400 Respiratory rate 16 /min Jonah Pendlebury FIELD MECHANIC.WASH WORKER Work Phone: [facility] 04-21-2022 10:43-0400 SaO2% (BldA) [Mass fraction] 98 % Jonah Pendlebury FIELD MECHANIC.WASH WORKER Work Phone: [facility] 04-21-2022 10:43-0400 Systolic blood pressure 118 mm[Hg] Jonah Pendlebury FIELD MECHANIC.WASH WORKER Work Phone: [facility] 04-19-2022 11:28-0400 Body weight 51.53 kg Herlinda Haagen FIELD MECHANIC.WASH WORKER Work Phone: [facility] 04-19-2022 11:28-0400 Diastolic blood pressure 84 mm[Hg] Herlinda Haagen FIELD MECHANIC.WASH WORKER Work Phone: [facility] 04-19-2022 11:28-0400 Heart rate 75 /min Herlinda Haagen FIELD MECHANIC.WASH WORKER Work Phone: [facility] 04-19-2022 11:28-0400 Respiratory rate 16 /min Herlinda Haagen FIELD MECHANIC.WASH WORKER Work Phone: [facility] 04-19-2022 11:28-0400 SaO2% (BldA) [Mass fraction] 99 % Herlinda Haagen FIELD MECHANIC.WASH WORKER Work Phone: [facility] 04-19-2022 11:28-0400 Systolic blood pressure 122 mm[Hg] Herlinda Haagen FIELD MECHANIC.WASH WORKER Work Phone: [facility] 04-07-2022 11:45-0400 Body weight 51.26 kg Bridget De Luna MD Work Phone: [facility] 04-07-2022 11:45-0400 Diastolic blood pressure 82 mm[Hg] Bridget De Luna MD Work Phone: [facility] 04-07-2022 11:45-0400 Heart rate 72 /min Bridget De Luna MD Work Phone: [facility] 04-07-2022 11:45-0400 Systolic blood pressure 122 mm[Hg] Bridget De Luna MD Work Phone: [facility] 04-01-2022 11:14-0400 Diastolic blood pressure 64 mm[Hg] Herlinda Jett FIELD MECHANIC.WASH WORKER Work Phone: [facility] 04-01-2022 11:14-0400 Heart rate 74 /min Herlinda Jett FIELD MECHANIC.WASH WORKER Work Phone: [facility] 04-01-2022 11:14-0400 Respiratory rate 18 /min Herlinda Jett FIELD MECHANIC.WASH WORKER Work Phone: [facility] 04-01-2022 11:14-0400 SaO2% (BldA) [Mass fraction] 97 % Herlinda Jett FIELD MECHANIC.WASH WORKER Work Phone: [facility] 04-01-2022 11:14-0400 Systolic blood pressure 98 mm[Hg] Herlinda Jett FIELD MECHANIC.WASH WORKER Work Phone: [facility] 03-14-2022 08:59-0400 Body temperature 97 [degF] Bayron Wesley DO Work Phone: [facility] 03-14-2022 08:59-0400 Body weight 52.16 kg Bayron Wesley DO Work Phone: [facility] 03-14-2022 08:59-0400 Diastolic blood pressure 78 mm[Hg] Bayron Wesley DO Work Phone: [facility] 03-14-2022 08:59-0400 Heart rate 76 /min Bayron Wesley DO Work Phone: [facility] 03-14-2022 08:59-0400 Respiratory rate 20 /min Bayron Wesley DO Work Phone: [facility] 03-14-2022 08:59-0400 Systolic blood pressure 110 mm[Hg] Bayron Wesley DO Work Phone: [facility] 03-11-2022 14:14-0400 Body height 162.6 cm Rosie Luna MD Work Phone: [facility] 03-11-2022 14:14-0400 Body temperature 98.1 [degF] Rosie Luna MD Work Phone: [facility] 03-11-2022 14:14-0400 Body weight 52.44 kg Rosie Luna MD Work Phone: [facility] 03-11-2022 14:14-0400 Diastolic blood pressure 78 mm[Hg] Rosie Luna MD Work Phone: [facility] 03-11-2022 14:14-0400 Heart rate 94 /min Rosie Luna MD Work Phone: [facility] 03-11-2022 14:14-0400 SaO2% (BldA) [Mass fraction] 97 % Rosie Luna MD Work Phone: [facility] 03-11-2022 14:14-0400 Systolic blood pressure 124 mm[Hg] Rosie Luna MD Work Phone: [facility] 03-11-2022 07:03-0400 Body weight 52.62 kg Cher Crabtree FIELD MECHANIC.WASH WORKER Work Phone: [facility] 03-11-2022 07:03-0400 Diastolic blood pressure 74 mm[Hg] Cher Higginshof FIELD MECHANIC.WASH WORKER Work Phone: [facility] 03-11-2022 07:03-0400 Heart rate 72 /min Cher Finnf FIELD MECHANIC.WASH WORKER Work Phone: [facility] 03-11-2022 07:03-0400 Respiratory rate 20 /min Cher Crabtree FIELD MECHANIC.WASH WORKER Work Phone: [facility] 03-11-2022 07:03-0400 SaO2% (BldA) [Mass fraction] 97 % Cher Bro FIELD MECHANIC.WASH WORKER Work Phone: [facility] 03-11-2022 07:03-0400 Systolic blood pressure 128 mm[Hg] Chre Crabtree FIELD MECHANIC.WASH WORKER Work Phone: [facility] 03-03-2022 06:59-0400 Body temperature 98.2 [degF] Adelaida Pichardo PA-C Work Phone: [facility] 03-03-2022 06:59-0400 Body weight 52.16 kg Adelaida Pichardo PA-C Work Phone: [facility] 03-03-2022 06:59-0400 Diastolic blood pressure 80 mm[Hg] Adelaida Pichardo PA-C Work Phone: [facility] 03-03-2022 06:59-0400 Heart rate 64 /min Adelaida Pichardo PA-C Work Phone: [facility] 03-03-2022 06:59-0400 Respiratory rate 16 /min Adelaida Pichardo PA-C Work Phone: [facility] 03-03-2022 06:59-0400 Systolic blood pressure 100 mm[Hg] Adelaida Pichardo PA-C Work Phone: [facility] 02-26-2022 11:30-0400 Body weight 52.16 kg Bayron Wesley DO Work Phone: [facility] 02-26-2022 11:30-0400 Diastolic blood pressure 74 mm[Hg] Bayron Wesley DO Work Phone: [facility] 02-26-2022 11:30-0400 Heart rate 83 /min Bayron Wesley DO Work Phone: [facility] 02-26-2022 11:30-0400 Respiratory rate 16 /min Bayron Wesley DO Work Phone: [facility] 02-26-2022 11:30-0400 SaO2% (BldA) [Mass fraction] 98 % Bayron Wesley DO Work Phone: [facility] 02-26-2022 11:30-0400 Systolic blood pressure 112 mm[Hg] Bayron Wesley DO Work Phone: [facility] 02-24-2022 07:34-0400 Body weight 52.62 kg Chermiguel Higginshof FIELD MECHANIC.WASH WORKER Work Phone: [facility] 02-24-2022 07:34-0400 Diastolic blood pressure 78 mm[Hg] Cher Tannhof FIELD MECHANIC.WASH WORKER Work Phone: [facility] 02-24-2022 07:34-0400 Heart rate 80 /min Cher Tannhof FIELD MECHANIC.WASH WORKER Work Phone: [facility] 02-24-2022 07:34-0400 Respiratory rate 20 /min Cher Tannhof FIELD MECHANIC.WASH WORKER Work Phone: [facility] 02-24-2022 07:34-0400 SaO2% (BldA) [Mass fraction] 96 % Cher Tannhof FIELD MECHANIC.WASH WORKER Work Phone: [facility] 02-24-2022 07:34-0400 Systolic blood pressure 116 mm[Hg] Cher Tannhof FIELD MECHANIC.WASH WORKER Work Phone: [facility] 02-18-2022 10:18-0400 Diastolic blood pressure 70 mm[Hg] Herlinda Haagen FIELD MECHANIC.WASH WORKER Work Phone: [facility] 02-18-2022 10:18-0400 Heart rate 83 /min Herlinda Haagen FIELD MECHANIC.WASH WORKER Work Phone: [facility] 02-18-2022 10:18-0400 Respiratory rate 18 /min Herlinda Haagen FIELD MECHANIC.WASH WORKER Work Phone: [facility] 02-18-2022 10:18-0400 SaO2% (BldA) [Mass fraction] 96 % Herlinda Haagen FIELD MECHANIC.WASH WORKER Work Phone: [facility] 02-18-2022 10:18-0400 Systolic blood pressure 108 mm[Hg] Herlinda Haagen FIELD MECHANIC.WASH WORKER Work Phone: [facility] 02-14-2022 09:55-0400 Body weight 53.52 kg Cher Higginshof FIELD MECHANIC.WASH WORKER Work Phone: [facility] 02-14-2022 09:55-0400 Diastolic blood pressure 76 mm[Hg] Cher Tannhof FIELD MECHANIC.WASH WORKER Work Phone: [facility] 02-14-2022 09:55-0400 Heart rate 83 /min Cher Tannhof FIELD MECHANIC.WASH WORKER Work Phone: [facility] 02-14-2022 09:55-0400 Respiratory rate 16 /min Cher Ronaldohof FIELD MECHANIC.WASH WORKER Work Phone: [facility] 02-14-2022 09:55-0400 SaO2% (BldA) [Mass fraction] 97 % Cher Higginshof FIELD MECHANIC.WASH WORKER Work Phone: [facility] 02-14-2022 09:55-0400 Systolic blood pressure 126 mm[Hg] Cher Tannhof FIELD MECHANIC.WASH WORKER Work Phone: [facility] 02-09-2022 15:50-0400 Body height 162.6 cm Rosie Luna MD Work Phone: [facility] 02-09-2022 15:50-0400 Body temperature 98.8 [degF] Rosie Luna MD Work Phone: [facility] 02-09-2022 15:50-0400 Body weight 53.07 kg Rosie Luna MD Work Phone: [facility] 02-09-2022 15:50-0400 Diastolic blood pressure 70 mm[Hg] Rosie Luna MD Work Phone: [facility] 02-09-2022 15:50-0400 Heart rate 106 /min Rosie Luna MD Work Phone: [facility] 02-09-2022 15:50-0400 SaO2% (BldA) [Mass fraction] 96 % Rosie Luna MD Work Phone: [facility] 02-09-2022 15:50-0400 Systolic blood pressure 110 mm[Hg] Rosie Luna MD Work Phone: [facility] 02-07-2022 17:01-0400 Body weight 53.98 kg Bridget De Luna MD Work Phone: [facility] 02-07-2022 17:01-0400 Diastolic blood pressure 72 mm[Hg] Bridget De Luna MD Work Phone: [facility] 02-07-2022 17:01-0400 Heart rate 76 /min Bridget De Luna MD Work Phone: [facility] 02-07-2022 17:01-0400 Systolic blood pressure 122 mm[Hg] Bridget De Luna MD Work Phone: [facility] 01-29-2022 07:49-0400 Body temperature 98.2 [degF] Bayron Wesley DO Work Phone: [facility] 01-29-2022 07:49-0400 Body weight 54.43 kg Bayron Wesley DO Work Phone: [facility] 01-29-2022 07:49-0400 Diastolic blood pressure 80 mm[Hg] Bayron Wesley DO Work Phone: [facility] 01-29-2022 07:49-0400 Heart rate 81 /min Bayron Wesley DO Work Phone: [facility] 01-29-2022 07:49-0400 Respiratory rate 16 /min Bayron Wesley DO Work Phone: [facility] 01-29-2022 07:49-0400 SaO2% (BldA) [Mass fraction] 98 % Bayron Wesley DO Work Phone: [facility] 01-29-2022 07:49-0400 Systolic blood pressure 122 mm[Hg] Bayron Wesley DO Work Phone: [facility] 01-26-2022 09:13-0400 Body temperature 97.39 [degF] Esther Dial APRN.WASH WORKER Work Phone: [facility] 01-26-2022 09:13-0400 Body weight 54.43 kg Estherbatool Dial APRN.WASH WORKER Work Phone: [facility] 01-26-2022 09:13-0400 Diastolic blood pressure 68 mm[Hg] Esther Dial APRN.WASH WORKER Work Phone: [facility] 01-26-2022 09:13-0400 Heart rate 86 /min Esther Dial APRN.WASH WORKER Work Phone: [facility] 01-26-2022 09:13-0400 Respiratory rate 16 /min Esther Dial APRN.WASH WORKER Work Phone: [facility] 01-26-2022 09:13-0400 SaO2% (BldA) [Mass fraction] 99 % Esther Dial APRN.WASH WORKER Work Phone: [facility] 01-26-2022 09:13-0400 Systolic blood pressure 112 mm[Hg] Esther Dial APRN.WASH WORKER Work Phone: [facility] 01-19-2022 09:46-0400 Body height 162.6 cm Halie Kelleyyner FIELD MECHANIC.WASH WORKER Work Phone: [facility] 01-19-2022 09:46-0400 Body weight 53.98 kg Halie Kelleyyner FIELD MECHANIC.WASH WORKER Work Phone: [facility] 01-12-2022 14:43-0400 Body height 162.6 cm Rosie Luna MD Work Phone: [facility] 01-12-2022 14:43-0400 Body temperature 98.2 [degF] Rosie Luna MD Work Phone: [facility] 01-12-2022 14:43-0400 Body weight 54.88 kg Rosie Luna MD Work Phone: [facility] 01-12-2022 14:43-0400 Diastolic blood pressure 83 mm[Hg] Rosie Luna MD Work Phone: [facility] 01-12-2022 14:43-0400 Heart rate 96 /min Rosie Luna MD Work Phone: [facility] 01-12-2022 14:43-0400 SaO2% (BldA) [Mass fraction] 97 % Rosie Luna MD Work Phone: [facility] 01-12-2022 14:43-0400 Systolic blood pressure 137 mm[Hg] Rosie Luna MD Work Phone: [facility] 01-09-2022 08:34-0400 Body temperature 97.9 [degF] Nae Gould MD Work Phone: [facility] 01-09-2022 08:34-0400 Body weight 55.43 kg Nae Gould MD Work Phone: [facility] 01-09-2022 08:34-0400 Diastolic blood pressure 80 mm[Hg] Nae Gould MD Work Phone: [facility] 01-09-2022 08:34-0400 Heart rate 79 /min Nae Gould MD Work Phone: [facility] 01-09-2022 08:34-0400 Respiratory rate 16 /min Nae Gould MD Work Phone: [facility] 01-09-2022 08:34-0400 SaO2% (BldA) [Mass fraction] 98 % Nae Gould MD Work Phone: [facility] 01-09-2022 08:34-0400 Systolic blood pressure 112 mm[Hg] Nae Gould MD Work Phone: [facility] 01-03-2022 13:42-0400 Diastolic blood pressure 82 mm[Hg] Herlinda Jett FIELD MECHANIC.WASH WORKER Work Phone: [facility] 01-03-2022 13:42-0400 Heart rate 78 /min Herlinda Jett FIELD MECHANIC.WASH WORKER Work Phone: [facility] 01-03-2022 13:42-0400 Respiratory rate 18 /min Herlinda Jett FIELD MECHANIC.WASH WORKER Work Phone: [facility] 01-03-2022 13:42-0400 SaO2% (BldA) [Mass fraction] 98 % Herlinda Jett FIELD MECHANIC.WASH WORKER Work Phone: [facility] 01-03-2022 13:42-0400 Systolic blood pressure 122 mm[Hg] Herlinda Jett FIELD MECHANIC.WASH WORKER Work Phone: [facility] Encounters Encounter Date Encounter Type Care Provider Facility Start: 06-09-2025 End: 06-09-2025 Office outpatient visit 15 minutes Herlinda Jett FIELD MECHANIC.WASH WORKER Work Phone: [facility] Comment on above: Acute right-sided lo w back pain with right-sided sciatica Start: 06-09-2025 End: 06-09-2025 ambulatory BRIDGET DE LUNA Facility:[facility] Start: 05-26-2025 End: 05-26-2025 Office outpatient visit 15 minutes Daylin Mendenhall FIELD MECHANIC.WASH WORKER Work Phone: [facility] Comment on above: Acute maxillary sinu sitis, recurrence not specified (Primary Dx); Mixed hyperlipidemia Start: 05-26-2025 End: 05-26-2025 ambulatory DAYLIN A SUPPAN Facility:[facility] Start: 05-23-2025 End: 05-23-2025 Office outpatient visit 15 minutes Mita Rivas FIELD MECHANIC.WASH WORKER Work Phone: [facility] [place] Comment on above: Nausea (Primary Dx); Epigastric pain Start: 05-23-2025 End: 05-23-2025 ambulatory MITA JENNIE CORBIN Facility:[facility] Start: 05-22-2025 End: 05-26-2025 Telephone encounter Rosie Luna MD Work Phone: [facility] Start: 05-17-2025 End: 05-17-2025 Office outpatient visit 15 minutes Nae Gould MD Work Phone: [facility] [place] Comment on above: Arthralgia of right temporomandibular joint (Primary Dx) Start: 05-17-2025 End: 05-17-2025 ambulatory [facility] Facility:[facility] Start: 05-13-2025 End: 05-13-2025 ambulatory [facility] Facility:[facility] Start: 05-12-2025 End: 05-12-2025 Patient encounter procedure Bridget De Luna MD Work Phone: [facility] [place] Comment on above: Primary hypertension (Primary Dx); Mixed hyperlipidemia; GERD without esophagitis; Chronic kidney disease, stage 3a (HCC); Thyroid nodule; DDD (degenerative disc disease), cervical; Degeneration of intervertebral disc of lumbar region, unspecified whether pain present; Osteoporosis without current pathological fracture, unspecified osteoporosis type; Pancreatic cyst (HCC); Folate deficiency Start: 05-12-2025 End: 05-12-2025 [facility] Facility:[facility] Start: 05-08-2025 End: 05-08-2025 [facility] Facility:[facility] Start: 05-05-2025 End: 05-05-2025 ambulatory Daylin Mendenhall APRN.WASH WORKER Work Phone: [facility] [place] Comment on above: Xray Start: 05-05-2025 End: 05-05-2025 Subsequent hospital visit by physician [facility] (I-Stat) Work Phone: Cat Scan Comment on above: Cyst and pseudocyst of pancreas (HCC) [K86.2, K86.3] Start: 05-02-2025 [facility] Facility :[facility] Start: 05-02-2025 End: 05-02-2025 Subsequent hospital visit by physician [facility] Mamm[facility] Comment on above: Encounter for screen ing mammogram for breast cancer [Z12.31] Start: 05-01-2025 End: 05-01-2025 Office outpatient visit 15 minutes Daylin Mendenhall APRN.WASH WORKER Work Phone: [facility] [place] Comment on above: Pain in both knees, unspecified chronicity (Primary Dx) Start: 05-01-2025 End: 05-01-2025 Subsequent hospital visit by physician [facility] [place] Work Phone: Radiology Comment on above: Pain in both knees, unspecified chronicity [M25.561, M25.562] Start: 05-01-2025 End: 05-01-2025 ambulatory [facility] Facility:[facility] Start: 04-30-2025 End: 04-30-2025 Refill Daylin Mendenhall FIELD MECHANIC.WASH WORKER Work Phone: Family [facility] [place] Comment on above: Refill Request Start: 04-28-2025 End: 04-28-2025 ambulatory Nurse Intm/[facility] Work Phone: Nurse Phone Triage Comment on above: Patient Update Start: 04-24-2025 End: 04-24-2025 Telephone encounter Ran Luna MD Work Phone: [facility] [place] Comment on above: Patient Update Start: 04-23-2025 End: 04-23-2025 Office outpatient new 45 minutes Ran Luna MD Work Phone: [facility] [place] Comment on above: Acute midline thorac ic back pain (Primary Dx); Weakness of both lower extremities Start: 04-23-2025 End: 04-23-2025 ambulatory [facility] Facility:[facility] Start: 04-17-2025 End: 04-17-2025 ambulatory Bridget De Luna MD Work Phone: [facility] [place] Start: 04-17-2025 End: 04-17-2025 Patient encounter procedure Bridget De Luna MD Work Phone: [facility] [place] Comment on above: Population Health Na vigation Outreach ([employer] [place] ) Start: 04-14-2025 End: 04-14-2025 Office outpatient visit 15 minutes Daylin Mendenhall FIELD MECHANIC.WASH WORKER Work Phone: [facility] [place] Comment on above: Enteritis (Primary D x) Start: 04-14-2025 End: 04-14-2025 ambulatory [facility] Facility:[facility] Start: 04-08-2025 End: 04-09-2025 Follow-up encounter Herlinda Jett APRN.WASH WORKER Work Phone: Family [facility] [place] Start: 04-08-2025 End: 04-08-2025 Office outpatient visit 25 minutes Herlinda Jett APRN.WASH WORKER Work Phone: [facility] [place] Comment on above: Dysuria (Primary Dx) ; UTI symptoms Start: 04-08-2025 End: 04-08-2025 ambulatory BRIDGET DE LUNA Facility:[facility] Start: 04-07-2025 End: 04-08-2025 ambulatory Bridget De Luna MD Work Phone: [facility] [place] Comment on above: Pepcid Start: 03-27-2025 End: 03-27-2025 Office outpatient visit 15 minutes Daylin Mendenhall FIELD MECHANIC.WASH WORKER Work Phone: [facility] [place] Comment on above: Dysuria (Primary Dx) ; Interstitial cystitis Start: 03-27-2025 End: 03-27-2025 ambulatory [facility] Facility:[facility] Start: 03-24-2025 End: 03-24-2025 Follow-up encounter Kate Parmar MA [facility] [place] Comment on above: Results Start: 03-24-2025 End: 03-24-2025 Subsequent hospital visit by physician [facility] [place] Work Phone: Radiology Comment on above: Acute bilateral thor acic back pain [M54.6] Start: 03-24-2025 End: 03-24-2025 Patient encounter procedure Vangie Vázquez APRN.WASH WORKER Work Phone: [facility] [place] Comment on above: Acute bilateral thor acic back pain (Primary Dx); Lumbar spine pain; Abdominal pain, unspecified abdominal location Start: 03-24-2025 End: 03-24-2025 ambulatory Vangie Vázquez APRN.WASH WORKER Work Phone: [facility] [place] Comment on above: Test results Start: 03-19-2025 End: 03-19-2025 Patient encounter procedure Brdiget De Luna MD Work Phone: [facility] [place] Comment on above: Primary hypertension (Primary Dx); Rib pain on right side; Mixed hyperlipidemia; Chronic kidney disease, stage 3a (HCC); GERD without esophagitis Start: 03-19-2025 End: 03-19-2025 ambulatory Bridget De Luna MD Work Phone: [facility] [place] Comment on above: Upper scope Start: 03-13-2025 End: 03-15-2025 ambulatory Daylin A Suppan FIELD MECHANIC.WASH WORKER Work Phone: [facility] [place] Comment on above: Zoloft Start: 03-11-2025 End: 03-11-2025 Office outpatient visit 15 minutes Herlinda Jett FIELD MECHANIC.WASH WORKER Work Phone: [facility] [place] Comment on above: Acute bilateral thor acic back pain (Primary Dx) Start: 03-11-2025 End: 03-11-2025 [facility] Facility:[facility] Start: 02-22-2025 End: 02-25-2025 Refill Daylin A Suppan FIELD MECHANIC.WASH WORKER Work Phone: [facility] Comment on above: Refill Request Start: 02-21-2025 End: 02-21-2025 [facility] Facility:[facility] Start: 02-05-2025 End: 02-06-2025 Orders Only Vangie Sosa RN Work Phone: General Surgery Comment on above: Cyst and pseudocyst of pancreas (HCC) (Primary Dx) Medicine Start: 02-03-2025 End: 02-03-2025 Office outpatient visit 15 minutes Daylin A Suppan FIELD MECHANIC.WASH WORKER Work Phone: [facility] [place] Comment on above: Lower abdominal pain (Primary Dx); GERD without esophagitis; 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 malabsorption with proteinuria; Folate deficiency Start: 02-03-2025 End: 02-03-2025 ambulatory Daylin A Suppan FIELD MECHANIC.WASH WORKER [facility] Comment on above: Test Start: 01-23-2025 End: 01-23-2025 [facility] Facility:[facility] Start: 01-16-2025 End: 01-16-2025 [facility] Facility:[facility] Start: 01-06-2025 End: 01-06-2025 Office outpatient visit 15 minutes Herlinda Jett FIELD MECHANIC.WASH WORKER Work Phone: [facility] [place] Comment on above: Viral upper respirat ory tract infection (Primary Dx) Start: 01-06-2025 End: 01-06-2025 ambulatory [facility] Facility:[facility] Start: 12-30-2024 End: 03-01-2025 Follow-up encounter Bridget De Luna MD Work Phone: [facility] [place] Start: 12-30-2024 End: 12-30-2024 ambulatory [facility] Facility:[facility] Start: 12-30-2024 End: 12-30-2024 Office outpatient visit 15 minutes Daylin Mendenhall FIELD MECHANIC.WASH WORKER Work Phone: [facility] [place] Comment on above: Neck pain, musculosk eletal (Primary Dx) Start: 12-27-2024 End: 12-27-2024 ambulatory [facility] Facility:[facility] Start: 12-27-2024 End: 12-27-2024 Patient encounter procedure Bridget De Luna MD Work Phone: [facility] [place] Comment on above: URI, acute (Primary Dx) Start: 12-20-2024 End: 12-20-2024 Office outpatient visit 25 minutes Herlinda Jett FIELD MECHANIC.WASH WORKER Work Phone: [facility] [place] Comment on above: Midline low back thomas n, unspecified chronicity, unspecified whether sciatica present (Primary Dx) Start: 12-20-2024 End: 12-20-2024 ambulatory [facility] Facility:[facility] Start: 12-11-2024 End: 12-11-2024 Admission to same day surgery center Chelsie Chavis FIELD MECHANIC.WASH WORKER Work Phone: General Surgery Comment on above: Appointment Start: 12-11-2024 End: 12-11-2024 ambulatory Chelsie Chavis FIELD MECHANIC.WASH WORKER Work Phone: General Surgery Start: 12-06-2024 End: 12-06-2024 ambulatory [facility] Facility:[facility] Start: 12-06-2024 End: 12-06-2024 Patient encounter procedure Bayron Wesley DO Work Phone: [facility] Comment on above: Procedure and treatm ent not carried out due to patient leaving prior to being seen by health care provider (Primary Dx) Start: 12-01-2024 End: 12-02-2024 Refill Daylin A Suppan FIELD MECHANIC.WASH WORKER Work Phone: [facility] Comment on above: Refill Request Start: 11-30-2024 End: 12-02-2024 Refill Cher Crabtree FIELD MECHANIC.WASH WORKER Work Phone: [facility] [place] Comment on above: Refill Request Start: 11-25-2024 End: 11-25-2024 Office outpatient visit 15 minutes Daylin A Suppan FIELD MECHANIC.WASH WORKER Work Phone: [facility] Comment on above: Dysuria (Primary Dx) Start: 11-25-2024 End: 11-25-2024 ambulatory [facility] Facility:[facility] Start: 11-21-2024 End: 01-21-2025 Follow-up encounter Nae Gould MD Work Phone: [facility] Start: 11-20-2024 End: 11-20-2024 [facility] Facility:[facility] Start: 11-20-2024 End: 11-20-2024 Patient encounter procedure Em Slade FIELD MECHANIC.WASH WORKER Work Phone: [facility] Comment on above: Burning with urinati on (Primary Dx) Start: 11-20-2024 End: 01-20-2025 Follow-up encounter Herlinda Jett FIELD MECHANIC.WASH WORKER Work Phone: [facility] [place] Start: 11-19-2024 End: 11-19-2024 ambulatory [facility] Facility:[facility] Start: 11-19-2024 End: 11-19-2024 Office outpatient visit 15 minutes Daylin A Suppan FIELD MECHANIC.WASH WORKER Work Phone: [facility] Comment on above: Actinic keratoses (P rimary Dx) Start: 11-18-2024 End: 11-18-2024 ambulatory [facility] Facility:[facility] Start: 11-06-2024 End: 11-06-2024 Office outpatient visit 15 minutes Herlinda Jett APRN.WASH WORKER Work Phone: [facility] [place] Comment on above: Nausea (Primary Dx) Start: 11-06-2024 End: 11-06-2024 Refill Daylin Mendenhall APRN.WASH WORKER Work Phone: [facility] [place] Comment on above: Refill Request Start: 10-30-2024 End: 10-30-2024 Office outpatient visit 15 minutes Herlinda Jett APRN.WASH WORKER Work Phone: [facility] [place] Comment on above: Impacted cerumen of right ear (Primary Dx) Start: 10-30-2024 End: 10-30-2024 [facility] Facility:[facility] Start: 10-25-2024 End: 10-25-2024 [facility] Facility:[facility] Start: 10-25-2024 End: 10-25-2024 Patient encounter procedure Kathy Jansen APRN.WASH WORKER [facility] Comment on above: Muscle strain of rig ht scapular region, initial encounter (Primary Dx) Start: 10-19-2024 End: 10-19-2024 [facility] Facility:[facility] Start: 10-19-2024 End: 10-19-2024 Patient encounter procedure Bridget De Luna MD Work Phone: [facility] [place] Comment on above: Medicare annual well ness visit, subsequent (Primary Dx); Screening for depression; Chronic kidney disease, stage 3a (HCC); Primary hypertension; Mixed hyperlipidemia; Thyroid nodule; DDD (degenerative disc disease), cervical; Degeneration of intervertebral disc of lumbar region, unspecified whether pain present; Osteoporosis without current pathological fracture, unspecified osteoporosis type; Anxiety Start: 10-18-2024 End: 10-18-2024 Admission to same day surgery center Chelsie Chavis APRN.WASH WORKER Work Phone: General Surgery Comment on above: Question Start: 10-18-2024 End: 10-18-2024 ambulatory Chelsie Chavis APRN.WASH WORKER Work Phone: General Surgery Comment on above: Tests Start: 10-18-2024 End: 12-30-2024 Telephone encounter Herlinda Jett APRN.CNP Work Phone: [facility] [place] Comment on above: Results Start: 10-15-2024 End: 10-15-2024 ambulatory [facility] Facility:[facility] Start: 10-15-2024 End: 10-15-2024 Office outpatient visit 15 minutes Herlinda Jett APRN.WASH WORKER Work Phone: [facility] [place] Comment on above: Pain in both lower l egs (Primary Dx); Folate deficiency; Muscle cramps Start: 10-15-2024 End: 10-15-2024 ambulatory [facility] Facility:[facility] Start: 10-09-2024 End: 10-10-2024 Patient encounter procedure Ryan Dalton MD Work Phone: [facility] [place] Comment on above: Epistaxis (Primary D x) Appointment Start: 10-09-2024 End: 10-10-2024 ambulatory Daylin Mendenhall APRN.WASH WORKER Work Phone: [facility] [place] Start: 10-04-2024 End: 10-04-2024 Subsequent hospital visit by physician [facility] [place] Work Phone: Radiology Comment on above: Flank pain [R10.9] Start: 10-04-2024 End: 10-04-2024 ambulatory [facility] Facility:[facility] Start: 10-04-2024 End: 10-04-2024 Office outpatient visit 15 minutes Daylin Mendenhall FIELD MECHANIC.WASH WORKER Work Phone: [facility] [place] Comment on above: Flank pain (Primary Dx) Start: 09-27-2024 End: 09-27-2024 Office outpatient visit 15 minutes Daylin A Susana FIELD MECHANIC.WASH WORKER Work Phone: [facility] [place] Comment on above: Acute maxillary sinu sitis, recurrence not specified (Primary Dx) Start: 09-27-2024 End: 09-27-2024 ambulatory [facility] Facility:[facility] Start: 09-23-2024 End: 09-23-2024 Patient encounter procedure Bridget De Luna MD Work Phone: [facility] [place] Comment on above: Gastroesophageal ref lux disease without esophagitis (Primary Dx); Primary hypertension; Epigastric discomfort Start: 09-23-2024 End: 09-23-2024 ambulatory [facility] Facility:[facility] Start: 09-18-2024 End: 09-18-2024 Patient encounter procedure Ryan Dalton MD Work Phone: [facility] [place] Comment on above: Bilateral flank pain (Primary Dx) Start: 09-18-2024 End: 09-18-2024 ambulatory [facility] Facility:[facility] Start: 09-13-2024 End: 09-13-2024 Office outpatient visit 15 minutes Daylin Mendenhall FIELD MECHANIC.WASH WORKER Work Phone: [facility] [place] Comment on above: Muscle strain of rig ht scapular region, initial encounter (Primary Dx); Dysuria Start: 09-13-2024 End: 09-13-2024 ambulatory DAYLIN MENDENHALL Facility:[facility] Start: 09-11-2024 End: 09-12-2024 Telephone encounter Cher Crabtree APRN.WASH WORKER Work Phone: [facility] [place] Comment on above: Results (Urine ) Start: 09-09-2024 End: 09-09-2024 Patient encounter procedure Cher Crabtree APRN.WASH WORKER Work Phone: [facility] [place] Comment on above: Acute cystitis with hematuria (Primary Dx) Start: 09-09-2024 End: 09-09-2024 ambulatory CHER CRABTREE Facility:[facility] Start: 09-03-2024 End: 09-03-2024 Office outpatient visit 15 minutes Herlinda Jett FIELD MECHANIC.WASH WORKER Work Phone: [facility] [place] Comment on above: Coccyx pain (Primary Dx) Start: 09-03-2024 End: 09-03-2024 ambulatory HERLINDA LORETO Facility:[facility] Start: 09-02-2024 End: 09-02-2024 ambulatory BRIDGET DE LUNA Facility:[facility] Start: 09-02-2024 End: 09-02-2024 Patient encounter procedure Bridget De Luna MD Work Phone: [facility] [place] Comment on above: URI, acute (Primary Dx); Encounter for screening mammogram for breast cancer Start: 08-16-2024 End: 08-16-2024 ambulatory BRIDGET Wilcox ANNAMARIE Facility:[facility] Start: 08-16-2024 End: 08-16-2024 Subsequent hospital visit by physician [facility] ([facility]) Work Phone: Cat Scan Comment on above: Solitary lung nodule [R91.1] Start: 08-11-2024 End: 08-11-2024 Emergency department patient visit BRIDGET CARPENTER [facility] Start: 08-08-2024 End: 08-08-2024 ambulatory CHER CRABTREE Facility:[facility] Start: 08-08-2024 End: 08-08-2024 Patient encounter procedure Cher Crabtree APRN.WASH WORKER Work Phone: [facility] [place] Comment on above: Chronic fatigue (Teresa ran Dx); Difficulty sleeping; Folate deficiency; Vitamin B12 deficiency Start: 08-07-2024 End: 08-07-2024 Unlisted evaluation and management service Herlinda Jett APRN.WASH WORKER Work Phone: [facility] [place] Comment on above: Patient left without being seen (Primary Dx) Start: 08-07-2024 End: 08-07-2024 ambulatory BRIDGET DE LUNA Facility:[facility] Start: 08-06-2024 End: 08-08-2024 ambulatory Bridget De Luna MD Work Phone: [facility] [place] Start: 08-06-2024 End: 08-08-2024 Patient encounter procedure Bridget De Luna MD Work Phone: [facility] [place] Comment on above: Referral Start: 08-05-2024 End: 12-10-2024 Telephone encounter Chelsie Onel FIELD MECHANIC.WASH WORKER Work Phone: General Surgery Start: 08-05-2024 End: 08-05-2024 ambulatory CHELSIE CHAVIS Facility:[facility] Start: 08-05-2024 End: 08-05-2024 Patient encounter procedure Chelsie Chavis FIELD MECHANIC.WASH WORKER Work Phone: General Surgery Comment on above: Gastroesophageal ref lux disease without esophagitis (Primary Dx) Start: 07-30-2024 End: 07-31-2024 Telephone encounter Daylin A Suppan FIELD MECHANIC.WASH WORKER Work Phone: [facility] [place] Comment on above: Medication Problem Start: 07-30-2024 End: 07-30-2024 ambulatory DAYLIN A SUPPAN Facility:[facility] Start: 07-30-2024 End: 07-30-2024 Office outpatient visit 15 minutes Daylin A Suppan FIELD MECHANIC.WASH WORKER Work Phone: [facility] [place] Comment on above: Frequent UTI (Primar y Dx); Dysuria; Acute maxillary sinusitis, recurrence not specified Start: 07-29-2024 End: 07-29-2024 ambulatory Bridget De Luna MD Work Phone: [facility] [place] Comment on above: Test Start: 07-24-2024 End: 07-24-2024 ambulatory Graciela Jerome RN Work Phone: [employer] [employer] [facility] Comment on above: ACSophie OLIVEIRA RN ( ED utilization review per request of payor) Message Start: 07-24-2024 End: 07-24-2024 Telephone encounter Halie Terrazas FIELD MECHANIC.WASH WORKER Work Phone: Urology Comment on above: Patient Question Start: 07-19-2024 End: 07-19-2024 Emergency department patient visit BRIDGET CARPENTER [facility] Start: 07-18-2024 End: 07-18-2024 Get Medical Advice Bridget De Luna MD Work Phone: [facility] [place] Comment on above: Refill Start: 07-16-2024 End: 07-16-2024 Office outpatient visit 15 minutes Daylin A Suppan FIELD MECHANIC.WASH WORKER Work Phone: [facility] [place] Comment on above: Acute thoracic back pain, unspecified back pain laterality (Primary Dx) Start: 07-16-2024 End: 07-16-2024 Refill Kathy Jansen APRN.WASH WORKER Work Phone: [facility] [place] Comment on above: Refill Request Acute thoracic back pain, unspecified back pain laterality [M54.6] Start: 07-10-2024 End: 07-10-2024 Telephone encounter Adelaida Pichardo PA-C Work Phone: [facility] [place] Start: 07-10-2024 End: 07-10-2024 ambulatory ADELAIDA PICHARDO Facility:[facility] Start: 07-10-2024 End: 07-10-2024 Patient encounter procedure Adelaida Pichardo PA-C Work Phone: [facility] [place] Comment on above: Acute pansinusitis, recurrence not specified (Primary Dx) Start: 07-08-2024 End: 07-08-2024 ambulatory Bridget De Luna MD Work Phone: [facility] [place] Start: 07-08-2024 End: 07-08-2024 Patient encounter procedure Bridget De Luna MD Work Phone: [facility] [place] Comment on above: Referral Start: 07-04-2024 End: 07-04-2024 ambulatory BRIDGET DE LUNA Facility:[facility] Start: 07-04-2024 End: 07-04-2024 Subsequent hospital visit by physician [facility] Work Phone: Radiology Comment on above: Thyroid nodule [E04. 1] Start: 06-28-2024 End: 06-28-2024 ambulatory Bridget De Luna MD Work Phone: [facility] [place] Start: 06-28-2024 End: 06-28-2024 Patient encounter procedure Bridget De Luna MD Work Phone: [facility] [place] Comment on above: Referral Start: 06-20-2024 End: 06-24-2024 Telephone encounter Ryan Dalton MD Work Phone: [facility] [place] Comment on above: Results Start: 06-19-2024 End: 06-19-2024 Patient encounter procedure Bridget De Luna MD Work Phone: [facility] [place] Comment on above: Appointment Suspected COVID-19 v irus infection (Primary Dx); Viral URI with cough Start: 06-19-2024 End: 06-19-2024 ambulatory Bridget De Luna MD Work Phone: [facility] [place] Start: 06-17-2024 End: 06-17-2024 ambulatory BRIDGET DE LUNA Facility:[facility] Start: 06-17-2024 End: 06-17-2024 Patient encounter procedure Bridget De Luna MD Work Phone: [facility] [place] Comment on above: Primary hypertension (Primary Dx); Mixed hyperlipidemia; Pericardial effusion; Lung nodule; GERD without esophagitis; Chronic kidney disease, stage 3a (HCC); Thyroid nodule; DDD (degenerative disc disease), lumbar; DDD (degenerative disc disease), cervical; Anxiety; Osteoporosis without current pathological fracture, unspecified osteoporosis type; IPMN (intraductal papillary mucinous neoplasm) Start: 06-13-2024 End: 06-13-2024 Subsequent hospital visit by physician [facility] Work Phone: Radiology Comment on above: Osteoporosis without current pathological fracture, unspecified osteoporosis type [M81.0] Start: 06-11-2024 End: 06-11-2024 Office outpatient visit 15 minutes Daylin Mendenhall APRN.WASH WORKER Work Phone: [facility] [place] Comment on above: Gastroesophageal ref lux disease without esophagitis (Primary Dx); Chronic fatigue Start: 06-05-2024 End: 06-05-2024 Patient encounter procedure Kathy Jansen APRN.WASH WORKER Work Phone: [facility] [place] Comment on above: Muscle strain of luanne st wall, initial encounter (Primary Dx) Start: 05-31-2024 End: 05-31-2024 Subsequent hospital visit by physician [facility] ([facility]) Work Phone: Cat Scan Comment on above: 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] Start: 05-27-2024 End: 05-27-2024 ambulatory PROVIDER UNKNOWN Facility: Start: 05-24-2024 End: 05-24-2024 Refill Bridget De Luna MD Work Phone: [facility] [place] Comment on above: Refill Request Start: 05-23-2024 End: 05-23-2024 Subsequent hospital visit by physician [facility] [place] Work Phone: Radiology Comment on above: Left lower quadrant abdominal pain [R10.32] Start: 05-23-2024 End: 05-23-2024 Office outpatient visit 15 minutes Daylin A Suppan FIELD MECHANIC.WASH WORKER Work Phone: [facility] [place] Comment on above: Left lower quadrant abdominal pain (Primary Dx) Start: 05-20-2024 End: 05-20-2024 Orders Only Vangie Sosa RN Work Phone: General Surgery Comment on above: Biliary cyst (Primar y Dx) Start: 05-10-2024 End: 05-10-2024 Office outpatient visit 15 minutes Daylin A Suppan FIELD MECHANIC.WASH WORKER Work Phone: [facility] [place] Comment on above: Seasonal allergic rh initis due to fungal spores (Primary Dx) Start: 04-30-2024 End: 04-30-2024 Office outpatient visit 15 minutes Daylin A Suppan FIELD MECHANIC.WASH WORKER Work Phone: [facility] [place] Comment on above: Dysuria (Primary Dx) Start: 04-28-2024 Telephone encounter Deng TAVERAS Work Phone: [facility] Comment on above: Results Start: 04-27-2024 End: 04-27-2024 Patient encounter procedure Deng TAVERAS Work Phone: [facility] Comment on above: Burning with urinati on (Primary Dx) Start: 04-24-2024 End: 04-24-2024 Subsequent hospital visit by physician [facility] Work Phone: Radiology Comment on above: Breast pain [N64.4] Start: 04-24-2024 End: 04-24-2024 Subsequent hospital visit by physician [facility] Start: 04-22-2024 End: 04-22-2024 Patient encounter procedure Bridget De Luna MD Work Phone: [facility] [place] Comment on above: Primary hypertension (Primary Dx); Mixed hyperlipidemia; GERD without esophagitis; Chronic kidney disease, stage 3a (HCC); Thyroid nodule; DDD (degenerative disc disease), lumbar; Osteoporosis without current pathological fracture, unspecified osteoporosis type; Osteoporosis, unspecified osteoporosis type, unspecified pathological fracture presence Start: 04-15-2024 End: 04-15-2024 Patient encounter procedure Vangie Vázquez FIELD MECHANIC.WASH WORKER Work Phone: [facility] [place] Comment on above: Nausea (Primary Dx) Start: 04-11-2024 End: 04-11-2024 Patient encounter procedure Rachael Hammond FIELD MECHANIC.WASH WORKER Work Phone: [facility] [place] Comment on above: Pelvic pain (Primary Dx); Thickened endometrium Start: 04-08-2024 End: 04-08-2024 Office outpatient visit 15 minutes Daylin Mendenhall FIELD MECHANIC.CERTIFIED ORTHOTIST/PEDORTHIST Work Phone: [facility] [place] Comment on above: Bilateral leg cramps (Primary Dx); Sinus congestion; Seasonal allergic rhinitis due to other allergic trigger Start: 04-02-2024 End: 04-02-2024 Patient encounter procedure Cher Crabtree FIELD MECHANIC.WASH WORKER Work Phone: [facility] [place] Comment on above: Viral gastroenteriti s (Primary Dx); Nausea Start: 03-29-2024 End: 03-29-2024 Office outpatient visit 15 minutes Daylin Danyelle Mendenhall FIELD MECHANIC.CERTIFIED ORTHOTIST/PEDORTHIST Work Phone: [facility] [place] Comment on above: Dysuria (Primary Dx) Start: 03-28-2024 Telephone encounter Daylin Mendenhall FIELD MECHANIC.CERTIFIED ORTHOTIST/PEDORTHIST Work Phone: [facility] [place] Comment on above: Results Start: 03-26-2024 End: 03-26-2024 Office outpatient visit 15 minutes Daylin A Suppan FIELD MECHANIC.CERTIFIED ORTHOTIST/PEDORTHIST Work Phone: [facility] [place] Comment on above: Breast pain (Primary Dx); MTHFR mutation; Vitamin B12 deficiency Start: 03-22-2024 End: 03-22-2024 Patient encounter procedure Vangie Vázquez APRN.WASH WORKER Work Phone: [facility] [place] Comment on above: Upper respiratory sy mptom (Primary Dx) Start: 03-14-2024 End: 03-14-2024 Office outpatient new 30 minutes Stephani Vikas DO Work Phone: [facility] Comment on above: Gastroesophageal ref lux disease without esophagitis (Primary Dx); Colon cancer screening Start: 03-14-2024 End: 03-14-2024 ambulatory [facility] Start: 2024 End: 2024 Office outpatient visit 15 minutes Daylin A Suppan FIELD MECHANIC.CERTIFIED ORTHOTIST/PEDORTHIST Work Phone: [facility] [place] Comment on above: DDD (degenerative di sc disease), lumbar (Primary Dx) Start: 02-27-2024 End: 02-27-2024 Office outpatient visit 15 minutes Daylin A Suppan FIELD MECHANIC.CERTIFIED ORTHOTIST/PEDORTHIST Work Phone: [facility] [place] Comment on above: Viral URI with cough (Primary Dx) Start: 02-19-2024 Telephone encounter Layo fung APRN.WASH WORKER Work Phone: [facility] Comment on above: Results Start: 02-18-2024 End: 02-18-2024 Patient encounter procedure Deng TAVERAS Work Phone: [facility] Comment on above: Urinary frequency (P rimary Dx) Start: 02-09-2024 End: 02-09-2024 Office outpatient visit 15 minutes Daylin A Suppan FIELD MECHANIC.CERTIFIED ORTHOTIST/PEDORTHIST Work Phone: [facility] Comment on above: Seasonal allergic rh initis due to pollen (Primary Dx) Start: 01-29-2024 End: 01-29-2024 Office outpatient visit 15 minutes Daylin A Suppan FIELD MECHANIC.CERTIFIED ORTHOTIST/PEDORTHIST Work Phone: [facility] Comment on above: Lower abdominal pain (Primary Dx) Start: 01-23-2024 ambulatory Bridget De Luna MD Work Phone: [facility] Start: 01-23-2024 End: 01-23-2024 Patient encounter procedure Bridget De Luna MD Work Phone: [facility] Comment on above: Referral Epigastric pain (Teresa ran Dx); Nausea; Gastroesophageal reflux disease, unspecified whether esophagitis present Start: 01-17-2024 End: 01-17-2024 Patient encounter procedure Bridget De Luna MD Work Phone: [facility] Comment on above: Rib pain (Primary Dx ) Start: 01-16-2024 End: 01-16-2024 Office outpatient visit 15 minutes Daylin Mendenhall FIELD MECHANIC.CERTIFIED ORTHOTIST/PEDORTHIST Work Phone: [facility] Comment on above: Dysuria (Primary Dx) Start: 01-09-2024 Refill Bridget De Luna MD Work Phone: [facility] Comment on above: Refill Request Start: 01-05-2024 End: 01-05-2024 Patient encounter procedure Bridget De Luna MD Work Phone: [facility] Comment on above: URI, acute (Primary Dx); Chronic kidney disease, stage 3a (HCC) Refill Request Start: 01-04-2024 Refill Kathy ley APRN.WASH WORKER Work Phone: [facility] Comment on above: Refill Request Start: 01-03-2024 Telephone encounter Lilly Escoto MD Work Phone: OB/Gynecology Comment on above: Freight Checker - O ther Start: 01-03-2024 End: 01-03-2024 Patient encounter procedure Lilly Escoto MD Work Phone: OB/Gynecology Comment on above: Pelvic pain (Primary Dx); Thickened endometrium; Cervical stenosis (uterine cervix) Start: 01-02-2024 Telephone encounter Daylin Mendenhall APRN.CERTIFIED ORTHOTIST/PEDORTHIST Work Phone: [facility] Start: 01-01-2024 Telephone encounter Bridget De Luna MD Work Phone: [facility] Comment on above: Results Start: 12-29-2023 Telephone encounter Bridget De Luna MD Work Phone: [facility] [place] Comment on above: Insurance Authorizat ion Start: 12-29-2023 End: 12-29-2023 Subsequent hospital visit by physician [facility] Work Phone: Radiology Comment on above: Rib pain on left jani e [R07.81] Start: 12-26-2023 End: 12-26-2023 Office outpatient visit 25 minutes Daylin Mendenhall FIELD MECHANIC.CERTIFIED ORTHOTIST/PEDORTHIST Work Phone: [facility] Comment on above: 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); Folate deficiency; Pelvic pain; Calculus of gallbladder without cholecystitis without obstruction Start: 12-20-2023 End: 12-20-2023 Emergency department patient visit [facility] Start: 12-14-2023 ambulatory Rachael de leon APRN.WASH WORKER Work Phone: [facility] Comment on above: Test results Start: 12-14-2023 End: 12-14-2023 Subsequent hospital visit by physician [facility] Comment on above: Pelvic pain [R10.2] Start: 12-13-2023 End: 12-13-2023 Patient encounter procedure Rachael Hammond APRN.WASH WORKER Work Phone: [facility] Comment on above: Pelvic pain (Primary Dx); Thickened endometrium; Chronic kidney disease, stage 3a (HCC) Start: 12-11-2023 End: 12-11-2023 Patient encounter procedure Adelaida Pichardo PA-C Work Phone: [facility] Comment on above: Thickened endometriu m (Primary Dx); Suprapubic pressure Start: 12-08-2023 End: 12-08-2023 Emergency department patient visit [facility] Start: 12-07-2023 End: 12-07-2023 Patient encounter procedure Cher Crabtree FIELD MECHANIC.WASH WORKER Work Phone: [facility] Comment on above: URI, acute (Primary Dx); Post viral syndrome; Impacted cerumen of right ear Start: 12-04-2023 ambulatory Bridget De Luna MD Work Phone: [facility] Start: 12-04-2023 Patient encounter procedure Sylvia De Luna MD Work Phone: [facility] Comment on above: Referral Start: 12-04-2023 Telephone encounter Bridget De Luna MD Work Phone: [facility] Comment on above: insurance problem/ap pointment Start: 11-24-2023 End: 11-24-2023 Patient encounter procedure Bridget De Luna MD Work Phone: [facility] Comment on above: URI, acute (Primary Dx); Chronic kidney disease, stage 3a (HCC) Start: 11-18-2023 Telephone encounter Bridget De Luna MD Work Phone: [facility] Comment on above: Results Start: 11-15-2023 End: 11-15-2023 Patient encounter procedure Deng Higgins PA Work Phone: [facility] Comment on above: Urinary frequency (P rimary Dx) Start: 11-09-2023 End: 11-09-2023 Patient encounter procedure Cher Crabtree APRN.WASH WORKER Work Phone: [facility] Comment on above: Muscle strain (Prima ry Dx); Left ear pain Start: 11-06-2023 End: 11-06-2023 Office outpatient visit 15 minutes Daylin Mendenhall APRN.CERTIFIED ORTHOTIST/PEDORTHIST Work Phone: [facility] Comment on above: Nausea (Primary Dx); Gallstones; Left ear pain Start: 11-02-2023 Refill Bridget De Luna MD Work Phone: [facility] Comment on above: Refill Request Test result Start: 10-13-2023 End: 10-13-2023 Emergency department patient visit [facility] Start: 09-25-2023 End: 09-25-2023 Emergency department patient visit [facility] Start: 09-13-2023 End: 09-13-2023 ambulatory PROVIDER UNKNOWN Facility: Start: 09-13-2023 End: 09-13-2023 Emergency department patient visit [facility] Start: 09-11-2023 End: 09-11-2023 Subsequent hospital visit by physician [facility] Work Phone: Radiology Comment on above: Upper back pain [M54 .9] Start: 09-10-2023 End: 09-10-2023 Emergency department patient visit [facility] Start: 09-10-2023 End: 09-10-2023 Patient encounter procedure Kecia Cottrell APRN.WASH WORKER Work Phone: [facility] Comment on above: Upper back pain (Teresa ran Dx); Rib pain; Fall, initial encounter Start: 09-07-2023 End: 09-07-2023 Patient encounter procedure Lilliam Delgado APRN.WASH WORKER Work Phone: [facility] Comment on above: Upper back pain (Teresa ran Dx); Muscle strain; Screening mammogram for breast cancer Start: 09-04-2023 Telephone encounter Lilliam cole APRN.WASH WORKER Work Phone: [facility] Comment on above: Results Start: 09-04-2023 End: 09-04-2023 Patient encounter procedure Rachael Hammond APRN.WASH WORKER Work Phone: [facility] Comment on above: Colicky RLQ abdomina l pain (Primary Dx); Urine leukocytes Start: 09-02-2023 Telephone encounter Bridget De Luna MD Work Phone: [facility] Comment on above: Results Start: 09-01-2023 End: 09-01-2023 Patient encounter procedure Lilliam Delgado APRN.WASH WORKER Work Phone: [facility] Comment on above: Sinus pressure (Prim janette Dx) Start: 08-21-2023 End: 08-21-2023 Patient encounter procedure Bridget De Luna MD Work Phone: [facility] Comment on above: Primary hypertension (Primary Dx); Mixed hyperlipidemia; GERD without esophagitis; Chronic kidney disease, stage 3a (HCC); Thyroid nodule; Pericardial effusion; Folate deficiency Start: 08-15-2023 End: 08-15-2023 ambulatory ROSIE StephenLobito VAHID Facility: Start: 08-10-2023 Refill Bridget De Luna MD Work Phone: [facility] Comment on above: Refill Request Start: 08-07-2023 End: 08-07-2023 Office outpatient visit 15 minutes Herlinda Jett FIELD MECHANIC.WASH WORKER Work Phone: [facility] Comment on above: Viral URI (Primary D x) Start: 08-04-2023 End: 08-04-2023 Patient encounter procedure Rachael Hammond APRN.WASH WORKER Work Phone: [facility] Comment on above: Persistent dry cough (Primary Dx); Nasal congestion; Upper back pain, chronic; Neck pain, chronic Start: 07-11-2023 End: 07-11-2023 ambulatory JACI HOLLY Facility: Start: 06-26-2023 End: 06-26-2023 Patient encounter procedure Adelaida Pichardo PA-C Work Phone: [facility] Comment on above: Dysuria (Primary Dx) Start: 06-20-2023 Telephone encounter Bridget De Luna MD Work Phone: [facility] Start: 06-16-2023 End: 06-16-2023 Patient encounter procedure Esther Dial APRN.WASH WORKER Work Phone: [facility] Comment on above: Burning with urinati on (Primary Dx) Start: 06-13-2023 End: 06-13-2023 ambulatory Kelly Peña FIELD MECHANIC.WASH WORKER Work Phone: OB/Gynecology Comment on above: Question Start: 06-12-2023 End: 06-12-2023 Patient encounter procedure Kathy Jansen APRN.WASH WORKER Work Phone: [facility] Comment on above: Acute non-recurrent maxillary sinusitis (Primary Dx) Start: 06-07-2023 End: 06-07-2023 Patient encounter procedure Kecia Cottrell FIELD MECHANIC.WASH WORKER Work Phone: [facility] Comment on above: Viral URI (Primary D x) Start: 06-01-2023 End: 06-01-2023 Patient encounter procedure Bridget De Luna MD Work Phone: [facility] Comment on above: DDD (degenerative di sc disease), lumbar (Primary Dx); Primary hypertension Start: 05-25-2023 Refill Rachael de leon FIELD MECHANIC.WASH WORKER Work Phone: [facility] Comment on above: Refill Request Start: 05-23-2023 End: 05-23-2023 Office outpatient visit 15 minutes Herlinda Jett FIELD MECHANIC.WASH WORKER Work Phone: [facility] Comment on above: Pelvic pain (Primary Dx); Dysuria; Chronic left-sided low back pain without sciatica Start: 05-21-2023 Refill Bridget De Luna MD Work Phone: [facility] Comment on above: Refill Request Start: 05-18-2023 End: 05-18-2023 Patient encounter procedure Bridget De Luna MD Work Phone: [facility] Comment on above: Acute midline low ba ck pain without sciatica (Primary Dx) Refill Request Start: 05-12-2023 ambulatory Bridget De Luna MD Work Phone: [facility] Comment on above: Test results Start: 05-03-2023 Refill Bridget De Luna MD Work Phone: [facility] Comment on above: Refill Request Start: 04-27-2023 End: 04-27-2023 Patient encounter procedure Bridget De Luna MD Work Phone: [facility] Comment on above: Sprain of left shoul sharri, unspecified shoulder sprain type, initial encounter (Primary Dx) Start: 04-11-2023 End: 04-11-2023 Subsequent hospital visit by physician [facility]) Work Phone: Cat Scan Comment on above: Lung nodules [R91.8] Start: 04-07-2023 End: 04-07-2023 Patient encounter procedure Cher Crabtree FIELD MECHANIC.WASH WORKER Work Phone: [facility] Comment on above: Viral gastroenteriti s (Primary Dx) Start: 04-06-2023 End: 04-06-2023 Patient encounter procedure Esther Dial FIELD MECHANIC.WASH WORKER Work Phone: [facility] Comment on above: Diarrhea, unspecifie d type (Primary Dx) Start: 03-31-2023 Telephone encounter Cher Evaristo thorne FIELD MECHANIC.WASH WORKER Work Phone: [facility] Comment on above: Results (Labs ) Start: 03-30-2023 End: 03-30-2023 Patient encounter procedure Cher Crabtree FIELD MECHANIC.WASH WORKER Work Phone: [facility] Comment on above: Tingling of both fee t (Primary Dx) Start: 03-29-2023 ambulatory David moyer MD [facility] Start: 03-29-2023 Patient encounter procedure Emily Ortega MD Work Phone: General Surgery Comment on above: Appointment Start: 03-27-2023 Refill Esther stephen FIELD MECHANIC.WASH WORKER Work Phone: [facility] Comment on above: Refill Request Start: 03-23-2023 ambulatory Kelly Peña FIELD MECHANIC.WASH WORKER Work Phone: OB/Gynecology Comment on above: Test results Question regarding U S FEMALE PELVIS TRANSVAG Start: 03-20-2023 Telephone encounter Triston Dalton MD Work Phone: [facility] Comment on above: Results Start: 03-18-2023 End: 03-18-2023 Patient encounter procedure Ryan Dalton MD Work Phone: [facility] Comment on above: Acute bilateral low back pain without sciatica (Primary Dx); Nausea; GERD without esophagitis Start: 03-16-2023 End: 03-16-2023 Patient encounter procedure Bridget De Luna MD Work Phone: [facility] Comment on above: Pain in rib (Primary Dx) Start: 03-13-2023 End: 03-13-2023 Subsequent hospital visit by physician [facility] Work Phone: Radiology Comment on above: Pelvic pain [R10.2] Start: 03-06-2023 End: 03-06-2023 Patient encounter procedure Kelly Peña FIELD MECHANIC.WASH WORKER Work Phone: OB/Gynecology Comment on above: Pelvic pain Start: 03-02-2023 End: 03-02-2023 Patient encounter procedure Kathy Chris FIELD MECHANIC.WASH WORKER Work Phone: [facility] Comment on above: Pelvic pain (Primary Dx) Start: 02-28-2023 Telephone encounter Esther Dial APRN.WASH WORKER Work Phone: [facility] Comment on above: Results Start: 02-27-2023 End: 02-27-2023 Patient encounter procedure Nae Gould MD Work Phone: [facility] Comment on above: Burning with urinati on (Primary Dx) Start: 02-08-2023 ambulatory Bridget De Luna MD Work Phone: [facility] Comment on above: Reschedule my MRI Start: 02-02-2023 Refill Bridget De Luna MD Work Phone: [facility] Comment on above: Refill Request Start: 01-26-2023 End: 01-26-2023 Patient encounter procedure David Ortega MD Work Phone: General Surgery Comment on above: Protein-calorie maln utrition, unspecified severity (HCC) (Primary Dx); RUQ pain; GERD without esophagitis; Screening for colon cancer; Secondary renal hyperparathyroidism (HCC) Start: 01-23-2023 ambulatory Bridget De Luna MD Work Phone: [facility] Comment on above: Question regarding U S ABD RIGHT UPPER QUADRANT Start: 01-23-2023 Telephone encounter Bridget De Luna MD Work Phone: [facility] Comment on above: Results Start: 01-20-2023 End: 01-20-2023 Subsequent hospital visit by physician [facility] Work Phone: Radiology Comment on above: RUQ pain [R10.11] Start: 01-19-2023 Telephone encounter Bridget De Luna MD Work Phone: [facility] Comment on above: Erroneous encounter- disregard Start: 01-16-2023 End: 01-16-2023 Patient encounter procedure Bridget De Luna MD Work Phone: [facility] Comment on above: RUQ pain (Primary Dx ); GERD without esophagitis; Chronic kidney disease, stage 3a (HCC); Primary hypertension; Gastritis with hemorrhage, unspecified chronicity, unspecified gastritis type; Fatigue, unspecified type; Screening for colon cancer Start: 01-03-2023 Refill Bridget De Luna MD Work Phone: [facility] Comment on above: Refill Request Prescription Start: 01-02-2023 Refill Bridget De Luna MD Work Phone: [facility] Comment on above: Refill Request Start: 12-20-2022 End: 12-20-2022 Office outpatient visit 15 minutes Herlinda Jett APRN.CNP Work Phone: [facility] Comment on above: COVID-19 (Primary Dx ) Start: 11-25-2022 Orders Only Vangie Sosa RN Work Phone: General Surgery Comment on above: Biliary cyst (Primar y Dx) Start: 11-23-2022 End: 11-23-2022 Subsequent hospital visit by physician [facility] Work Phone: Radiology Comment on above: Abnormal mammogram [ R92.8] Start: 11-21-2022 Telephone encounter Bridget De Luna MD Work Phone: [facility] Comment on above: Results Start: 11-17-2022 End: 11-17-2022 Patient encounter procedure Sophie Cope PA-C Work Phone: [facility] Comment on above: Diarrhea, unspecifie d type (Primary Dx); Lead exposure Start: 11-12-2022 Refill Bridget De Luna MD Work Phone: [facility] Comment on above: Refill Request Start: 11-05-2022 End: 11-05-2022 Subsequent hospital visit by physician [facility] Work Phone: Radiology Comment on above: Pain in lower jaw [R 68.84] Start: 11-05-2022 End: 11-05-2022 Patient encounter procedure Bridget De Luna MD Work Phone: [facility] Comment on above: Pain in lower jaw (P rimary Dx); Primary hypertension; Lung nodule; Chronic kidney disease, stage 3a (HCC); Mixed hyperlipidemia; Pericardial effusion Start: 10-28-2022 Telephone encounter Bridget De Luna MD Work Phone: [facility] Comment on above: Fax over last OV not e Start: 10-22-2022 End: 10-22-2022 Patient encounter procedure Bayron Wesley DO Work Phone: [facility] Comment on above: Sinus congestion (Pr imary Dx); Seasonal allergic rhinitis due to other allergic trigger; Chronic kidney disease, stage 3a (HCC) Start: 10-12-2022 ambulatory Bridget De Luna MD Work Phone: [facility] Start: 10-12-2022 Patient encounter procedure Sylvia De Luna MD Work Phone: [facility] Comment on above: Referral Start: 10-10-2022 Documentation procedure Mammog omar Coordinator [facility] Start: 10-10-2022 Letter encounter Mammography Coordinator [facility] Start: 10-10-2022 Telephone encounter Rachael Francois APRN.CNP Work Phone: [facility] Comment on above: Results Start: 10-10-2022 End: 10-10-2022 Patient encounter procedure Bridget De Luna MD Work Phone: [facility] Comment on above: URI, acute (Primary Dx) Start: 10-07-2022 End: 10-07-2022 Subsequent hospital visit by physician [facility] Comment on above: Encounter for screen ing mammogram for breast cancer [Z12.31] Start: 09-29-2022 End: 09-29-2022 Subsequent hospital visit by physician [facility] Work Phone: Radiology Comment on above: Lumbar pain [M54.50] Start: 09-29-2022 End: 09-29-2022 Patient encounter procedure Bridget De Luna MD Work Phone: [facility] Karri Olsen Comment on above: Lumbar pain (Primary Dx) Start: 09-20-2022 End: 09-20-2022 Patient encounter procedure Adelaida Pichardo PA-C Work Phone: [facility] Comment on above: Sinus congestion (Pr imary Dx); Body aches Start: 09-16-2022 End: 09-16-2022 ambulatory [facility] Start: 09-16-2022 End: 09-16-2022 Emergency department patient visit [facility]ACE Work Phone: [facility] Start: 09-07-2022 End: 09-07-2022 Subsequent hospital visit by physician [facility] Work Phone: Radiology Comment on above: Rib pain [R07.81] Start: 09-07-2022 End: 09-07-2022 Patient encounter procedure Rachael Hammond APRN.WASH WORKER Work Phone: [facility] Comment on above: Rib pain (Primary Dx ); Mixed hyperlipidemia; Encounter for screening mammogram for breast cancer Start: 09-05-2022 End: 09-05-2022 ambulatory [facility] Start: 08-19-2022 Telephone encounter Cher thorne APRN.WASH WORKER Work Phone: [facility] Comment on above: Results (Urine Cultu re ) Start: 08-18-2022 End: 08-18-2022 Patient encounter procedure Cher Crabtree APRN.WASH WORKER Work Phone: [facility] Comment on above: Dysuria (Primary Dx) Start: 08-15-2022 End: 08-15-2022 ambulatory [facility] Start: 08-12-2022 Refill Bridget De Luna MD Work Phone: [facility] Comment on above: Refill Request Start: 07-14-2022 End: 07-14-2022 Patient encounter procedure Bridget De Luna MD Work Phone: [facility] Comment on above: Allergy, initial enc ounter (Primary Dx) Start: 06-17-2022 Refill Bridget De Luna MD Work Phone: [facility] Comment on above: Refill Request Start: 06-08-2022 Telephone encounter Bayron christie DO Work Phone: [facility] Comment on above: Appointment Start: 06-08-2022 End: 06-08-2022 Subsequent hospital visit by physician [facility] Work Phone: Radiology Comment on above: Thyroid nodule [E04. 1] Start: 06-08-2022 End: 06-08-2022 Patient encounter procedure Bayron Wesley DO Work Phone: [facility] Comment on above: Thyroid nodule (Prim janette Dx); Vitamin D deficiency; Fatigue, unspecified type; Muscle spasm Start: 06-07-2022 Telephone encounter Herlinda dangelo APRN.WASH WORKER Work Phone: [facility] Comment on above: Medication Question Start: 06-07-2022 End: 06-07-2022 Office outpatient visit 15 minutes Herlinda Jett APRN.WASH WORKER Work Phone: [facility] Comment on above: Age-related osteopor osis without current pathological fracture (Primary Dx) Start: 06-01-2022 ambulatory Bridget De Luna MD Work Phone: [facility] Comment on above: Test results Question regarding U RINE CULTURE LAB USE ON Message Start: 06-01-2022 Telephone encounter Adelaida gallardo PA-C Work Phone: [facility] Comment on above: Results Start: 05-31-2022 End: 05-31-2022 Subsequent hospital visit by physician [facility] Work Phone: Radiology Comment on above: Asymptomatic postmen opausal status [Z78.0] Start: 05-30-2022 End: 05-30-2022 Patient encounter procedure Adelaida Pichardo PA-C Work Phone: [facility] Comment on above: Urinary frequency (P rimary Dx) Start: 05-27-2022 End: 05-27-2022 Patient encounter procedure Layo Seals FIELD MECHANIC.WASH WORKER Work Phone: [facility] Comment on above: Urinary frequency (P rimary Dx) Start: 05-24-2022 End: 05-24-2022 Subsequent hospital visit by physician [facility] Work Phone: Radiology Comment on above: Left elbow pain [M25 .522] Start: 05-24-2022 End: 05-24-2022 Patient encounter procedure Em Slade FIELD MECHANIC.WASH WORKER Work Phone: [facility] Comment on above: Left elbow pain (Teresa ran Dx) Start: 05-16-2022 ambulatory Bridget De Luna MD Work Phone: [facility] Comment on above: Cystoscopy Start: 05-13-2022 End: 05-13-2022 Patient encounter procedure Cher Crabtree FIELD MECHANIC.WASH WORKER Work Phone: [facility] Comment on above: Nausea (Primary Dx) Start: 05-10-2022 End: 05-10-2022 Patient encounter procedure Ivana Kaufman FIELD MECHANIC.WASH WORKER Work Phone: [facility] Comment on above: Acute low back pain without sciatica, unspecified back pain laterality (Primary Dx); Microscopic hematuria Start: 05-03-2022 Get Medical Advice Bridget De Luna MD Work Phone: [facility] [place] Comment on above: General surgery orde r faxed Start: 04-26-2022 ambulatory Bridget De Luna MD Work Phone: [facility] Comment on above: Dr De Luna Start: 04-21-2022 End: 04-21-2022 Patient encounter procedure Jonah Cooley APRN.WASH WORKER Work Phone: [facility] Comment on above: Burning with urinati on (Primary Dx); Back pain, unspecified back location, unspecified back pain laterality, unspecified chronicity Start: 04-20-2022 ambulatory Bridget De Luna MD Work Phone: Family [facility] Comment on above: Message Start: 04-19-2022 End: 04-19-2022 Office outpatient visit 15 minutes Herlinda Jett APRN.WASH WORKER Work Phone: [facility] [place] Comment on above: Pain of right upper extremity (Primary Dx); Neck pain Start: 04-12-2022 ambulatory Bridget De Luna MD Work Phone: [facility] Comment on above: Urologist Start: 04-08-2022 ambulatory Bridget De Luna MD Work Phone: [facility] Comment on above: Test results Echo Start: 04-07-2022 End: 04-07-2022 Patient encounter procedure Bridget De Luna MD Work Phone: [facility] Comment on above: Rib pain (Primary Dx ); Pericardial effusion Start: 04-06-2022 End: 04-06-2022 Subsequent hospital visit by physician [facility]) Work Phone: Cat Scan Comment on above: Pericardial effusion [I31.3] Start: 04-01-2022 End: 04-01-2022 Patient encounter procedure Herlinda Jett APRN.WASH WORKER Work Phone: [facility] Comment on above: Dysuria Start: 03-24-2022 ambulatory Bridget De Luna MD Work Phone: [facility] [place] Comment on above: Question regarding S ED RATE Start: 03-22-2022 Patient encounter procedure Angela Childs MD Work Phone: Cardiology Start: 03-22-2022 Telephone encounter Bridget De Luna MD Work Phone: [facility] [place] Comment on above: Results Start: 03-21-2022 Telephone encounter Bridget De Luna MD Work Phone: Family [facility] [place] Comment on above: Results Orders Start: 03-18-2022 ambulatory Bridget De Luna MD Work Phone: [facility] [place] Comment on above: Renewal Start: 03-14-2022 End: 03-14-2022 Patient encounter procedure Bayron Wesley DO Work Phone: [facility] [place] Comment on above: Nausea and vomiting, unspecified vomiting type (Primary Dx); Recurrent UTI (urinary tract infection) Epigastric abdominal pain (Primary Dx) Start: 03-14-2022 Telephone encounter Rosie Mario MD Work Phone: General Surgery Comment on above: Procedure Start: 2022 Telephone encounter Cher thorne FIELD MECHANIC.WASH WORKER Work Phone: [facility] Comment on above: Results Start: 03-11-2022 ambulatory Bridget De Luna MD Work Phone: [facility] [place] Comment on above: Test Start: 03-11-2022 End: 03-11-2022 Patient encounter procedure Cher Crabtree FIELD MECHANIC.WASH WORKER Work Phone: [facility] [place] Comment on above: Muscle strain of lef t shoulder, initial encounter (Primary Dx); Dysuria; Epigastric pain Screening for colon cancer (Primary Dx); Gastroesophageal reflux disease, unspecified whether esophagitis present; Calculus of gallbladder without cholecystitis without obstruction Start: 03-03-2022 End: 03-03-2022 Patient encounter procedure Adelaida Pichardo PA-C Work Phone: [facility] [place] Comment on above: Sinus congestion (Pr imary Dx) Start: 03-01-2022 ambulatory Bayron Jessica Ingram douglas DO Work Phone: [facility] [place] Comment on above: urine culture Start: 03-01-2022 E-mail encounter mitesh m caregiver Bayron Jessica Wesely DO Work Phone: [facility] Start: 02-26-2022 End: 02-26-2022 Patient encounter procedure aByron Reynoldson DO Work Phone: [facility] [place] Comment on above: Right lower quadrant abdominal pain (Primary Dx); Recurrent UTI (urinary tract infection) Start: 02-24-2022 End: 02-24-2022 Patient encounter procedure Cher Crabtree APRN.WASH WORKER Work Phone: [facility] [place] Comment on above: Acute non-recurrent maxillary sinusitis (Primary Dx) Start: 02-18-2022 End: 02-18-2022 Patient encounter procedure Herlinda Jett APRN.WASH WORKER Work Phone: [facility] [place] Comment on above: URI, acute (Primary Dx) Start: 02-16-2022 Refill Bridget De Luna MD Work Phone: [facility] Comment on above: Refill Request Start: 02-14-2022 Telephone encounter Cher thorne APRN.WASH WORKER Work Phone: [facility] Comment on above: Results Start: 02-14-2022 End: 02-14-2022 Subsequent hospital visit by physician [facility] Work Phone: Radiology Comment on above: Neck pain [M54.2] Start: 02-14-2022 End: 02-14-2022 Patient encounter procedure Cher Crabtree APRN.WASH WORKER Work Phone: [facility] Comment on above: Neck pain (Primary D x) Start: 02-09-2022 End: 02-09-2022 Patient encounter procedure Rosie Luna MD Work Phone: General Surgery Comment on above: Gastroesophageal ref lux disease, unspecified whether esophagitis present (Primary Dx); Screening for colon cancer; Calculus of gallbladder without cholecystitis without obstruction; Intraductal papillary mucinous neoplasia Start: 02-07-2022 End: 02-07-2022 Patient encounter procedure Bridget De Luna MD Work Phone: [facility] [place] Comment on above: Myalgia (Primary Dx) ; DDD (degenerative disc disease), cervical Start: 02-04-2022 ambulatory Bridget De Luna MD Work Phone: [facility] [place] Comment on above: Question regarding U RINE CULTURE LAB USE ON Start: 01-31-2022 ambulatory Halie Terrazas APRN.WASH WORKER Work Phone: Urology Comment on above: Question Message Start: 01-29-2022 ambulatory Bayron cole DO Work Phone: [facility] Comment on above: Question regarding C BC Start: 01-29-2022 End: 01-29-2022 Patient encounter procedure Bayron Wesley DO Work Phone: [facility] Comment on above: Fatigue, unspecified type (Primary Dx); Thyroid nodule; Vitamin D deficiency; Stage 3 chronic kidney disease, unspecified whether stage 3a or 3b CKD (HCC); MTHFR mutation; Iron deficiency; Nasal congestion Start: 01-27-2022 ambulatory Halie Terrazas FIELD MECHANIC.WASH WORKER Work Phone: Urology Comment on above: Question Start: 01-26-2022 End: 01-26-2022 Patient encounter procedure Esther Dial APRN.[facility] Work Phone: [facility] Comment on above: Sinus congestion (Pr imary Dx) Start: 01-19-2022 ambulatory Bridget De Luna MD Work Phone: [facility] Start: 01-19-2022 End: 01-19-2022 Patient encounter procedure Halie Terrazas FIELD MECHANIC.WASH WORKER Work Phone: Urology Comment on above: Urine retention (Teresa ran Dx); Dyspareunia in female; Senile (atrophic) vaginitis Appointment Start: 01-13-2022 ambulatory Bridget De Luna MD Work Phone: [facility] Comment on above: Message Start: 01-13-2022 Telephone encounter Halie oconnell FIELD MECHANIC.WASH WORKER Work Phone: Urology Comment on above: Appointment Start: 01-12-2022 End: 01-12-2022 Patient encounter procedure Rosie Luna MD Work Phone: General Surgery Comment on above: Calculus of gallblad sharri without cholecystitis without obstruction (Primary Dx); Gastroesophageal reflux disease, unspecified whether esophagitis present; Screening for colon cancer Start: 01-10-2022 Telephone encounter Bridget De Luna MD Work Phone: [facility] Comment on above: Results; Scheduling Start: 01-09-2022 End: 01-09-2022 Patient encounter procedure Nae Gould MD Work Phone: [facility] Comment on above: Urination frequency (Primary Dx); Microscopic hematuria Start: 01-04-2022 End: 01-04-2022 ambulatory Emma Stoll MD Work Phone: General Surgery Comment on above: Intraductal papillar y mucinous neoplasia Pancreatic cyst Start: 01-04-2022 End: 01-04-2022 Telemedicine consultation with patient R Rick Stoll MD Work Phone: [facility] Start: 01-03-2022 End: 01-03-2022 Patient encounter procedure Herlinda Jett RADHA Work Phone: [facility] Comment on above: Dysuria (Primary Dx) Start: 12-28-2021 ambulatory Bridget De Luna MD Work Phone: [facility] Comment on above: Symptoms Start: 12-04-2021 End: 12-04-2021 Subsequent hospital visit by physician [facility] Work Phone: Radiology Comment on above: Abnormal x-ray of vi ng [R91.8] Start: 11-16-2021 End: 11-16-2021 Subsequent hospital visit by physician [facility] Comment on above: Canceled (Pt cx: Linda russell in Condition, Sick) Start: 11-05-2021 End: 11-05-2021 Subsequent hospital visit by physician [facility] [place] Work Phone: Radiology Comment on above: Lower abdominal pain [R10.30] Start: 10-27-2021 End: 10-27-2021 Subsequent hospital visit by physician [facility] [place] Work Phone: Radiology Comment on above: Pain of right scapul a [M89.8X1] Start: 10-13-2021 End: 10-13-2021 Subsequent hospital visit by physician [facility] Work Phone: Radiology Comment on above: Chest wall pain [R07 .89] Start: 07-12-2021 End: 07-12-2021 Subsequent hospital visit by physician [facility] Work Phone: Radiology Comment on above: Rib pain on left jani e [R07.81] Start: 12-01-2020 End: 12-01-2020 Subsequent hospital visit by physician [facility] [place] Work Phone: Radiology Comment on above: Rib pain [R07.81] Start: 11-10-2008 End: 05-15-2014 Patient encounter status Bridget De Luna MD Work Phone: [facility] Procedures Date Procedure Procedure Detail Performing Clinician Start: 05-13-2025 Lipid 1996 panel - S miguel or Plasma Nae Gould MD Work Phone: Start: 05-05-2025 Ct abdomen & pelvis w/o contrast material Vangie Sosa RN Work Phone: Start: 04-08-2025 Urnls dip stick/tabl et rgnt auto w/o microscopy Herlinda Jett FIELD MECHANIC.WASH WORKER Work Phone: Start: 03-27-2025 Urnls dip stick/tabl et rgnt auto w/o microscopy Daylin Mendenhall FIELD MECHANIC.WASH WORKER Work Phone: Start: 03-24-2025 Radex spine lumbosac ral 2/3 views Vangie Vázquez FIELD MECHANIC.WASH WORKER Work Phone: Start: 02-03-2025 Urnls dip stick/tabl et rgnt auto w/o microscopy Daylin Mendenhall FIELD MECHANIC.WASH WORKER Work Phone: Start: 11-25-2024 Urnls dip stick/tabl et rgnt auto w/o microscopy Daylin Danyelle Mendenhall FIELD MECHANIC.WASH WORKER Work Phone: Start: 11-20-2024 Urnls dip stick/tabl et rgnt auto w/o microscopy Em Slade FIELD MECHANIC.WASH WORKER Work Phone: Start: 10-19-2024 Adult depression scr eening assessment Bridget De Luna MD Work Phone: Start: 10-04-2024 Urnls dip stick/tabl et rgnt auto w/o microscopy Daylin Mendenhall FIELD MECHANIC.WASH WORKER Work Phone: Start: 09-18-2024 Urnls dip stick/tabl et rgnt auto w/o microscopy Ryan Dalton MD Work Phone: Start: 09-09-2024 Urnls dip stick/tabl et rgnt auto w/o microscopy Cher Crabtree FIELD MECHANIC.WASH WORKER Work Phone: Start: 07-19-2024 Urinalysis [facility] Comment on above: Result Comment: URIN ALYSIS Performed By: #### [id number] #### [facility],[address] [place] [address] Start: 07-16-2024 Radex spine thoracic 3 views Daylin Mendenhall FIELD MECHANIC.WASH WORKER Work Phone: Start: 06-19-2024 COVID & INFLUENZA A/ B & RSV PCR, ROUTINE Ryan Dalton MD Work Phone: Start: 05-31-2024 Ct abdomen & pelvis w/o contrast material Vangie Sosa RN Work Phone: Start: 05-23-2024 Radiologic exam abdo men 1 view Daylin Mendenhall FIELD MECHANIC.WASH WORKER Work Phone: Start: 05-23-2024 Lipid 1996 panel - S miguel or Plasma Bridget De Luna MD Work Phone: Start: 04-27-2024 Urnls dip stick/tabl et rgnt auto w/o microscopy Deng TAVERAS Work Phone: Start: 04-24-2024 Digital breast tomosynthesis unilateral [facility] Start: 04-11-2024 Urnls dip stick/tabl et rgnt auto w/o microscopy Rachael Hammond FIELD MECHANIC.WASH WORKER Work Phone: Start: 03-29-2024 Urnls dip stick/tabl et rgnt auto w/o microscopy Daylin Danyelle Supphaley FIELD MECHANIC.CERTIFIED ORTHOTIST/PEDORTHIST Work Phone: Start: 02-18-2024 Urnls dip stick/tabl et rgnt auto w/o microscopy Em Slade FIELD MECHANIC.WASH WORKER Work Phone: Start: 01-16-2024 Urnls dip stick/tabl et rgnt auto w/o microscopy Daylin Danyelle Suppan FIELD MECHANIC.CERTIFIED ORTHOTIST/PEDORTHIST Work Phone: Start: 01-05-2024 COVID & INFLUENZA A/ B & RSV NAAT, ROUTINE Bridget De Luna MD Work Phone: Start: 01-05-2024 Adult depression scr eening assessment [facility] Start: 12-29-2023 Radex ribs uni w/posteroant ch minimum 3 views Daylin Mendenhall FIELD MECHANIC.WASH WORKER Work Phone: Start: 12-20-2023 Urinalysis BRIDGET CORRALES Comment on above: Result Comment: URIN ALYSIS Performed By: [id number] #### [facility],[address] [place] [address] Start: 12-14-2023 Us transvaginal Rachael Hammond FIELD MECHANIC.WASH WORKER Work Phone: Start: 12-11-2023 Urnls dip stick/tabl et rgnt auto w/o microscopy Adelaida Pichardo PA-C Work Phone: Start: 12-08-2023 Urinalysis BRIDGET CORRALES Comment on above: Result Comment: URIN ALYSIS Performed By: #### [id number] #### [facility],[address] [place] [address] Start: 11-15-2023 Urnls dip stick/tabl et rgnt auto w/o microscopy Deng TAVERAS Work Phone: Start: 10-18-2023 Mammography Stephani ley DO Work Phone: Start: 10-11-2023 Lipid 1996 panel - S miguel or Plasma Bridget De Luna MD Work Phone: Start: 09-11-2023 Radex ribs bi w/post eroant ch minimum 4 views Kecia Cottrell FIELD MECHANIC.WASH WORKER Work Phone: Start: 09-10-2023 Urinalysis BRIDGET CORRALES Comment on above: Result Comment: URIN ALYSIS Performed By: #### [id number] #### [facility],[address] [place] [address] Start: 09-04-2023 Culture bacterial quanttative colony count urine Rachael Lunautzman FIELD MECHANIC.WASH WORKER Work Phone: Start: 09-04-2023 Urnls dip stick/tabl et rgnt auto w/o microscopy Rachael Lunautzman FIELD MECHANIC.WASH WORKER Work Phone: Start: 09-01-2023 Lipid 1996 panel - S miguel or Plasma Bridget De Luna MD Work Phone: Start: 06-26-2023 Urnls dip stick/tabl et rgnt auto w/o microscopy Adelaida Pichardo PA-C Work Phone: Start: 06-16-2023 Urnls dip stick/tabl et rgnt auto w/o microscopy Esther Dial FIELD MECHANIC.WASH WORKER Work Phone: Start: 05-23-2023 Urnls dip stick/tabl et rgnt auto w/o microscopy Herlinda Jett FIELD MECHANIC.WASH WORKER Work Phone: Start: 05-18-2023 Urnls dip stick/tabl et rgnt auto w/o microscopy Bridget De Luna MD Work Phone: Start: 04-11-2023 Ct thorax w/o contra st material Bridget De Luna MD Work Phone: Start: 03-18-2023 Urnls dip stick/tabl et rgnt auto w/o microscopy Ryan Dalton MD Work Phone: Start: 03-13-2023 Us transvaginal Kelly Sophie etcalf FIELD MECHANIC.WASH WORKER Work Phone: Start: 02-27-2023 Urnls dip stick/tabl et rgnt auto w/o microscopy Nae Gould MD Work Phone: Start: 01-20-2023 Us abdominal real ti me w/image limited Bridget De Luna MD Work Phone: Start: 01-18-2023 Lipid 1996 panel - S miguel or Plasma Kelly Endeavor FIELD MECHANIC.WASH WORKER Work Phone: Start: 11-23-2022 Us breast uni real t mercedes with image limited Rachael Manish FIELD MECHANIC.WASH WORKER Work Phone: Start: 11-23-2022 End: 11-23-2022 Mammography Rachael Hammond FIELD MECHANIC.WASH WORKER Work Phone: Start: 11-05-2022 Radiolog exam mandib le compl minimum 4 views Bridget De Luna MD Work Phone: Start: 10-07-2022 End: 10-07-2022 Mammography Rachael Hammond FIELD MECHANIC.WASH WORKER Work Phone: Start: 09-29-2022 Radex spine lumbosac ral 2/3 views Bridget De Luna MD Work Phone: Start: 09-07-2022 Radex ribs bi w/post eroant ch minimum 4 views Rachael Hammond FIELD MECHANIC.WASH WORKER Work Phone: Start: 09-07-2022 Urnls dip stick/tabl et rgnt auto w/o microscopy Rachael Hammond FIELD MECHANIC.WASH WORKER Work Phone: Start: 08-18-2022 Urnls dip stick/tabl et rgnt auto w/o microscopy Cher Crabtree FIELD MECHANIC.WASH WORKER Work Phone: Start: 06-08-2022 Us soft tissue head & neck real time imge docm Bayron Wesley DO Work Phone: Start: 05-31-2022 Dxa bone density everette dy 1/> sites axial skel Bridget De Luna MD Work Phone: Start: 05-27-2022 Urnls dip stick/tabl et rgnt auto w/o microscopy [facility] Start: 05-24-2022 Radex elbow complete minimum 3 views Em Yany FIELD MECHANIC.WASH WORKER Work Phone: Start: 05-10-2022 Urnls dip stick/tabl et rgnt auto w/o microscopy Esther Dial FIELD MECHANIC.WASH WORKER Work Phone: Start: 04-21-2022 Urnls dip stick/tabl et rgnt auto w/o microscopy [facility] Start: 04-06-2022 Ct thorax w/o contra st material Bridget De Luna MD Work Phone: Start: 04-01-2022 Urnls dip stick/tabl et rgnt auto w/o microscopy Herlinda Jett FIELD MECHANIC.WASH WORKER Work Phone: Start: 03-11-2022 Urnls dip stick/tabl et rgnt auto w/o microscopy Cher Crabtree FIELD MECHANIC.WASH WORKER Work Phone: Start: 02-26-2022 Culture bacterial quanttative colony count urine Bayron Reynoldson DO Work Phone: Start: 02-26-2022 Urnls dip stick/tabl et rgnt auto w/o microscopy Bayron Laddrison DO Work Phone: Start: 02-14-2022 Radex spine cervical 4 or 5 views Cher Crabtree FIELD MECHANIC.WASH WORKER Work Phone: Start: 02-02-2022 Adult depression scr eening assessment Bayron Wesley DO Work Phone: Start: 01-19-2022 Urnls dip stick/tabl et rgnt auto w/o microscopy Halie Terrazas FIELD MECHANIC.WASH WORKER Work Phone: Start: 01-09-2022 Urnls dip stick/tabl et rgnt auto w/o microscopy Nae Gould MD Work Phone: Start: 12-04-2021 Radiologic exam ches t 2 views Bridget De Luna MD Work Phone: Start: 11-05-2021 Radex spine lumbosac ral 2/3 views Bridget De Luna MD Work Phone: Start: 10-27-2021 Radex scapula complete Bridget De Luna MD Work Phone: Start: 10-13-2021 End: 10-13-2021 Radiologic exam knee complete 4/more views Bridget De Luna MD Work Phone: Start: 10-12-2021 Mammography Bridget Corrales MD Work Phone: Start: 07-12-2021 Radex ribs bi w/post eroant ch minimum 4 views Jonah Camarena MD Work Phone: Start: 01-12-2021 Adult depression scr eening assessment Bridget De Luna MD Work Phone: Start: 12-01-2020 Radex ribs uni w/posteroant ch minimum 3 views Ivana Kaufman FIELD MECHANIC.WASH WORKER Work Phone: Plan of Treatment Date Care Activity Detail Author Start: 10-13-2031 DTaP/Tdap/Td Vaccines (2 - Td or Tdap) DTaP/Tdap/Td Vaccines (2 - Td or Tdap) [facility] Start: 10-13-2031 Urine microalbumin profile [facility] Start: 05-13-2030 Lipid panel Lipid Screening [facility] Start: 05-23-2029 Lipid panel Lipid Screening [facility] Start: 10-11-2028 Lipid panel Lipid Screening [facility] Start: 09-01-2028 Lipid 1996 panel - Serum or Plasma Lipid Screening [facility] Start: 09-01-2028 Lipid panel Lipid Screening [facility] Start: 05-13-2028 Diabetes Screening Diabetes Screening [facility] Start: 2028 RSV Vaccine (1 - 1-dose 75+ series) RSV Vaccine (1 - 1-dose 75+ series) [facility] Start: 01-19-2028 Lipid 1996 panel - Serum or Plasma Lipid Screening [facility] Start: 01-19-2028 LIPID SCREEN LIPID SCREEN [facility] Start: 11-08-2027 LIPID SCREEN LIPID SCREEN [facility] Start: 10-15-2027 Diabetes Screening Diabetes Screening [facility] Start: 09-23-2027 Diabetes Screening Diabetes Screening [facility] Start: 06-11-2027 Diabetes Screening Diabetes Screening [facility] Start: 05-23-2027 Diabetes Screening Diabetes Screening [facility] Start: 04-08-2027 Diabetes Screening Diabetes Screening [facility] Start: 03-29-2027 Screening for malignant neoplasm of colon [facility] Start: 03-26-2027 Diabetes Screening Diabetes Screening [facility] Start: 01-22-2027 Diabetes Screening Diabetes Screening [facility] Start: 10-31-2026 Diabetes Screening Diabetes Screening [facility] Start: 09-01-2026 Diabetes Screening Diabetes Screening [facility] Start: 07-02-2026 LIPID SCREEN LIPID SCREEN [facility] Start: 06-13-2026 Screening for osteoporosis Bone Density Screening [facility] Start: 06-09-2026 Annual PCP Team Chronic Disease Visit Annual PCP Team Chronic Disease Visit [facility] Start: 05-26-2026 Annual PCP Team Chronic Disease Visit Annual PCP Team Chronic Disease Visit [facility] Start: 05-23-2026 Annual PCP Team Chronic Disease Visit Annual PCP Team Chronic Disease Visit [facility] Start: 05-13-2026 Complete blood count Hemoglobin/Hematocrit [facility] Start: 05-13-2026 Creatinine measurement Serum Creatinine [facility] Start: 05-12-2026 Annual PCP Team Chronic Disease Visit Annual PCP Team Chronic Disease Visit [facility] Start: 05-12-2026 Pneumococcal Vaccine: 50+ (1 of 1 - PCV) Pneumococcal Vaccine: 50+ (1 of 1 - PCV) [facility] Comment on above: Postponed from 2003 (Declined at t his time) Start: 05-12-2026 Shingrix Vaccine (1 of 2) Shingrix Vaccine (1 of 2) [facility] Comment on above: Postponed from 2003 (Declined at t his time) Start: 05-02-2026 Screening for malignant neoplasm of breast Mammogram Screening [facility] Start: 05-01-2026 Annual PCP Team Chronic Disease Visit Annual PCP Team Chronic Disease Visit [facility] Start: 04-23-2026 Annual PCP Team Chronic Disease Visit Annual PCP Team Chronic Disease Visit [facility] Start: 04-14-2026 Annual PCP Team Chronic Disease Visit Annual PCP Team Chronic Disease Visit [facility] Start: 04-08-2026 Annual PCP Team Chronic Disease Visit Annual PCP Team Chronic Disease Visit [facility] Start: 03-27-2026 Annual PCP Team Chronic Disease Visit Annual PCP Team Chronic Disease Visit [facility] Start: 03-24-2026 Annual PCP Team Chronic Disease Visit Annual PCP Team Chronic Disease Visit [facility] Start: 03-19-2026 Annual PCP Team Chronic Disease Visit Annual PCP Team Chronic Disease Visit [facility] Start: 03-18-2026 DIABETES SCREEN DIABETES SCREEN [facility] Start: 03-18-2026 Diabetes Screening Diabetes Screening [facility] Start: 03-11-2026 Annual PCP Team Chronic Disease Visit Annual PCP Team Chronic Disease Visit [facility] Start: 02-21-2026 Annual PCP Team Chronic Disease Visit Annual PCP Team Chronic Disease Visit [facility] Start: 02-03-2026 Annual PCP Team Chronic Disease Visit Annual PCP Team Chronic Disease Visit [facility] Start: 02-03-2026 BP Controlled (<130/80) BP Controlled (<130/80) [facility] Start: 01-18-2026 DIABETES SCREEN DIABETES SCREEN [facility] Start: 01-06-2026 Annual PCP Team Chronic Disease Visit Annual PCP Team Chronic Disease Visit [facility] Start: 12-30-2025 Annual PCP Team Chronic Disease Visit Annual PCP Team Chronic Disease Visit [facility] Start: 12-27-2025 Annual PCP Team Chronic Disease Visit Annual PCP Team Chronic Disease Visit [facility] Start: 12-20-2025 Annual PCP Team Chronic Disease Visit Annual PCP Team Chronic Disease Visit [facility] Start: 12-06-2025 Annual PCP Team Chronic Disease Visit Annual PCP Team Chronic Disease Visit [facility] Start: 11-25-2025 Annual PCP Team Chronic Disease Visit Annual PCP Team Chronic Disease Visit [facility] Start: 11-19-2025 Annual PCP Team Chronic Disease Visit Annual PCP Team Chronic Disease Visit [facility] Start: 11-14-2025 End: 11-14-2025 Patient encounter procedure 11/14/2025 10:40 AM EST Office Visit [facility] [address] [place] [id number] Brigdet De Luna MD [address] [place] [id number] 6 mo follow up [facility] Comment on above: 6 mo follow up Start: 11-08-2025 DIABETES SCREEN DIABETES SCREEN [facility] Start: 11-06-2025 Annual PCP Team Chronic Disease Visit Annual PCP Team Chronic Disease Visit [facility] Start: 10-30-2025 Annual PCP Team Chronic Disease Visit Annual PCP Team Chronic Disease Visit [facility] Start: 10-25-2025 Annual PCP Team Chronic Disease Visit Annual PCP Team Chronic Disease Visit [facility] Start: 10-19-2025 Annual PCP Team Chronic Disease Visit Annual PCP Team Chronic Disease Visit [facility] Start: 10-19-2025 Depression Screening Depression Screening [facility] Start: 10-15-2025 Annual PCP Team Chronic Disease Visit Annual PCP Team Chronic Disease Visit [facility] Start: 10-15-2025 Creatinine measurement Serum Creatinine [facility] Start: 10-09-2025 Annual PCP Team Chronic Disease Visit Annual PCP Team Chronic Disease Visit [facility] Start: 10-04-2025 BP Controlled (<130/80) BP Controlled (<130/80) [facility] in Start: 10-04-2025 zzBP Controlled (<130/80) (Retired) zzBP Controlled (<130/80) (Retired) [facility] Start: 09-23-2025 Annual PCP Team Chronic Disease Visit Annual PCP Team Chronic Disease Visit [facility] Start: 09-23-2025 Complete blood count Hemoglobin/Hematocrit [facility] Start: 09-23-2025 Creatinine measurement Serum Creatinine [facility] Start: 09-18-2025 Annual PCP Team Chronic Disease Visit Annual PCP Team Chronic Disease Visit [facility] Start: 09-09-2025 Annual PCP Team Chronic Disease Visit Annual PCP Team Chronic Disease Visit [facility] Start: 09-03-2025 Annual PCP Team Chronic Disease Visit Annual PCP Team Chronic Disease Visit [facility] Start: 09-02-2025 Annual PCP Team Chronic Disease Visit Annual PCP Team Chronic Disease Visit [facility] Start: 08-21-2025 End: 08-21-2025 Patient encounter procedure 08/21/2025 8:40 AM EST Appointment Cat Scan [address] [place] [address] Solitary lung nodule [R91.1] Cat Scan Comment on above: Solitary lung nodule [R91.1] Start: 08-08-2025 Annual PCP Team Chronic Disease Visit Annual PCP Team Chronic Disease Visit [facility] Start: 08-05-2025 BP Controlled (<130/80) BP Controlled (<130/80) [facility] Start: 07-30-2025 BP Controlled (<130/80) BP Controlled (<130/80) [facility] Start: 07-18-2025 End: 07-18-2025 Patient encounter procedure 07/18/2025 8:30 AM EDT Appointment [facility] [address] [place] [address] Ramírez Kendall MD [address] [address] [facility] Start: 07-16-2025 BP Controlled (<130/80) BP Controlled (<130/80) [facility] Start: 07-10-2025 Annual PCP Team Chronic Disease Visit Annual PCP Team Chronic Disease Visit [facility] Start: 07-10-2025 BP Controlled (<130/80) BP Controlled (<130/80) [facility] Start: 07-08-2025 End: 07-08-2025 Patient encounter procedure 07/08/2025 10:00 AM EDT Appointment Radiology [address] [place] [address] 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] Radiology Comment on above: 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] Start: 06-19-2025 Annual PCP Team Chronic Disease Visit Annual PCP Team Chronic Disease Visit [facility] Start: 06-17-2025 Annual PCP Team Chronic Disease Visit Annual PCP Team Chronic Disease Visit [facility] Start: 06-17-2025 Covid-19 Vaccine ( season) Covid-19 Vaccine () [facility] Comment on above: Postponed from 06/02/2024 (Declined at t his time) Start: 06-17-2025 Covid-19 Vaccine () Covid-19 Vaccine () [facility] Comment on above: Postponed from 06/02/2024 (Declined at t his time) Start: 06-11-2025 Complete blood count Hemoglobin/Hematocrit [facility] Start: 06-11-2025 Creatinine measurement Serum Creatinine [facility] Start: 06-08-2025 DIABETES SCREEN DIABETES SCREEN [facility] Start: 06-05-2025 Annual PCP Team Chronic Disease Visit Annual PCP Team Chronic Disease Visit [facility] Start: 06-05-2025 BP Controlled (<130/80) BP Controlled (<130/80) [facility] inic Start: 06-05-2025 End: 06-05-2025 Patient encounter procedure 06/05/2025 8:00 AM EDT Appointment LD SUR[facility] [address] [facility] [place] [address] Rosie Luna MD [address] [place] [id number] LD SURGERY Start: 05-29-2025 End: 05-29-2025 Patient encounter procedure LD SURGERY Comment on above: EGD DIAGNOSTIC for Gastroesophageal refl ux disease without esophagitis [K21.9] - PER PATIENT DECLINED MAC DUE TO ALLERGIES Start: 05-23-2025 Complete blood count Hemoglobin/Hematocrit [facility] Start: 05-23-2025 Creatinine measurement Serum Creatinine [facility] Start: 05-14-2025 End: 05-14-2025 ambulatory 05/14/2025 9:00 AM EDT [facility] [address] [facility] [place] [id number] [facility] Start: 05-13-2025 End: 05-13-2025 Patient encounter procedure 05/13/2025 1:40 PM EDT Office Visit Family Karri [facility] [address] [place] [address] Bridget De Luna MD [address] [facility] [place] [address] 6 month follow up. Family [facility]ri [facility]lsen Comment on above: 6 month follow up. Start: 05-12-2025 End: 08-10-2025 25-hydroxyvitamin D3 [Mass/volume] in Serum or Plasma VITAMIN D 25 HYDROXY Lab Routine Osteoporosis without current pathological fracture, unspecified osteoporosis type Expected: 05/12/2025, Expires: 08/10/2025 [facility] Comment on above: Expected: 05/12/2025, Expires: Start: 05-12-2025 End: 08-10-2025 CBC W Auto Differential panel - Blood COMPLETE BLOOD COUNT AND DIFFERENTIAL Lab Routine Primary hypertension Expected: 05/12/2025, Expires: 08/10/2025 [facility] Work Phone: Comment on above: Expected: 05/12/2025, Expires: Start: 05-12-2025 End: 08-10-2025 Comprehensive metabolic 2000 panel - Serum or Plasma COMPREHENSIVE METABOLIC PANEL Lab Routine Primary hypertension Chronic kidney disease, stage 3a (HCC) Expected: 05/12/2025, Expires: 08/10/2025 [facility] Comment on above: Expected: 05/12/2025, Expires: Start: 05-12-2025 End: 08-10-2025 Folate [Mass/volume] in Serum or Plasma FOLATE, SERUM Lab Routine Folate deficiency Expected: 05/12/2025, Expires: 08/10/2025 [facility] Comment on above: Expected: 05/12/2025, Expires: Start: 05-12-2025 End: 08-10-2025 Lipid 1996 panel - Serum or Plasma LIPID PANEL, FASTING Lab Routine Mixed hyperlipidemia Expected: 05/12/2025, Expires: 08/10/2025 [facility] Comment on above: Expected: 05/12/2025, Expires: Start: 05-05-2025 End: 05-05-2025 Patient encounter procedure Cat Scan Comment on above: CT ABDOMEN AND PELVIS WO CONTRAST Start: 05-02-2025 End: 05-02-2025 Patient encounter procedure 05/02/2025 8:30 AM EDT Appointment Mammogram [address] [place] [address] [facility] [place] Mammogram Comment on above: [place] [facility] [place] Start: 05-01-2025 End: 05-31-2026 XR Knee - bilateral 4 Views [facility] Work Phone: Comment on above: Expected: 05/01/2025, Expires: Start: 05-01-2025 End: 05-01-2025 Patient encounter procedure 05/01/2025 11:00 AM EDT Appointment LD SURGERY [address] [place] [address] Rosie Luna MD [address] [place] [id number] EGD DIAGNOSTIC for Gastroesophageal reflux disease without esophagitis [K21.9] - PER PATIENT DECLINED MAC DUE TO ALLERGIES LD SURGERY Comment on above: EGD DIAGNOSTIC for Gastroesophageal refl ux disease without esophagitis [K21.9] - PER PATIENT DECLINED MAC DUE TO ALLERGIES Start: 04-28-2025 End: 04-28-2025 Patient encounter procedure 04/28/2025 2:20 PM EDT Office Visit [facility] [address] [place], [place] [id number] Bridget De Luna MD [address] [place], [place] [id number] 6 month follow up. [facility] Comment on above: 6 month follow up. Start: 04-25-2025 End: 10-02-2025 DBT Breast - bilateral screening [place] [facility] [place] Radiology Routine Encounter for screening mammogram for breast cancer Expected: 04/25/2025, Expires: 10/02/2025 [facility] Comment on above: Expected: 04/25/2025, Expires: Start: 04-25-2025 End: 04-25-2025 Patient encounter procedure 04/25/2025 8:30 AM EDT Appointment Mammogram [address] [place], [place] [address] Encounter for screening mammogram for breast cancer [Z12.31] Mammogram Comment on above: Encounter for screening mammogram for br east cancer [Z12.31] Start: 04-22-2025 Annual PCP Team Chronic Disease Visit Annual PCP Team Chronic Disease Visit [facility] Start: 04-15-2025 Annual PCP Team Chronic Disease Visit Annual PCP Team Chronic Disease Visit [facility] Start: 04-11-2025 Annual PCP Team Chronic Disease Visit Annual PCP Team Chronic Disease Visit [facility] Start: 04-11-2025 BP Controlled (<130/80) BP Controlled (<130/80) [facility] Start: 04-08-2025 BP Controlled (<130/80) BP Controlled (<130/80) [facility] Start: 04-08-2025 Creatinine measurement Serum Creatinine [facility] Start: 04-02-2025 Annual PCP Team Chronic Disease Visit Annual PCP Team Chronic Disease Visit [facility] Start: 03-29-2025 BP Controlled (<130/80) BP Controlled (<130/80) [facility] Start: 03-26-2025 BP Controlled (<130/80) BP Controlled (<130/80) [facility] Start: 03-26-2025 Creatinine measurement Serum Creatinine [facility] Start: 03-22-2025 Annual PCP Team Chronic Disease Visit Annual PCP Team Chronic Disease Visit [facility] Start: 03-14-2025 DIABETES SCREEN DIABETES SCREEN [facility] Start: 03-13-2025 End: 03-13-2025 Patient encounter procedure LD SURGERY Comment on above: EGD Start: 2025 BP Controlled (<130/80) BP Controlled (<130/80) [facility] Start: 03-07-2025 End: 03-07-2025 Patient encounter procedure 03/07/2025 11:00 AM EDT Office Visit Vasculary Surgery [address] [place], [place] [id number] PVD (peripheral vascular disease) [I73.9] Vasculary Surgery Comment on above: PVD (peripheral vascular disease) [I73.9 ] Start: 02-26-2025 BP Controlled (<130/80) BP Controlled (<130/80) [facility] Start: 02-08-2025 BP Controlled (<130/80) BP Controlled (<130/80) [facility] Start: 01-29-2025 DIABETES SCREEN DIABETES SCREEN [facility] Start: 01-28-2025 BP Controlled (<130/80) BP Controlled (<130/80) [facility] in Start: 01-22-2025 Annual PCP Team Chronic Disease Visit Annual PCP Team Chronic Disease Visit [facility] Start: 01-22-2025 BP Controlled (<130/80) BP Controlled (<130/80) [facility] Start: 01-22-2025 Creatinine measurement Serum Creatinine [facility] Start: 01-16-2025 End: 04-17-2025 25-hydroxyvitamin D3 [Mass/volume] in Serum or Plasma VITAMIN D 25 HYDROXY Lab Routine Vitamin D deficiency Expected: 01/16/2025, Expires: 04/17/2025 [facility] Work Phone: Comment on above: Expected: 01/16/2025, Expires: Start: 01-16-2025 Annual PCP Team Chronic Disease Visit Annual PCP Team Chronic Disease Visit [facility] Start: 01-16-2025 End: 01-16-2025 ambulatory 01/16/2025 9:00 AM EDT Results Only [facility] [address] [place] [address] [facility] Start: 01-15-2025 BP Controlled (<130/80) BP Controlled (<130/80) [facility] Start: 01-09-2025 End: 01-09-2025 Patient encounter procedure 01/09/2025 9:00 AM EDT Appointment LD SURGERY [address] [place] [address] Rosie Luna MD [address] [place] [id number] LD SURGERY Start: 01-04-2025 Annual PCP Team Chronic Disease Visit Annual PCP Team Chronic Disease Visit [facility] Start: 01-04-2025 BP Controlled (<130/80) BP Controlled (<130/80) [facility] Start: 01-04-2025 Depression Screening Depression Screening [facility] Start: 12-28-2024 BP Controlled (<130/80) BP Controlled (<130/80) [facility] Start: 12-16-2024 End: 12-16-2024 Patient encounter procedure 12/16/2024 9:20 AM EDT Office Visit Family Medicine [facility] [address] [place] [phone] Bridget De Luna MD [address] [place] [id number] 6 month follow up. [facility] Comment on above: 6 month follow up. Start: 12-12-2024 Annual PCP Team Chronic Disease Visit Annual PCP Team Chronic Disease Visit [facility] Start: 12-12-2024 Creatinine measurement Serum Creatinine [facility] Start: 12-10-2024 Annual PCP Team Chronic Disease Visit Annual PCP Team Chronic Disease Visit [facility] Start: 12-06-2024 Annual PCP Team Chronic Disease Visit Annual PCP Team Chronic Disease Visit [facility] Start: 11-26-2024 End: 11-26-2024 Orders Only 11/26/2024 Orders Only [facility] [address] [facility] [place] [id number] Daylin Mendenhall APRN.WASH WORKER [address] [place] [id number] Actinic keratoses [facility] Comment on above: Actinic keratoses Start: 11-24-2024 Annual PCP Team Chronic Disease Visit Annual PCP Team Chronic Disease Visit [facility] Start: 11-24-2024 BP Controlled (<130/80) BP Controlled (<130/80) [facility] Start: 11-18-2024 End: 11-18-2024 ambulatory 11/18/2024 9:00 AM EST Results Only [facility] [address] [place] [id number] [facility] Start: 11-09-2024 Annual PCP Team Chronic Disease Visit Annual PCP Team Chronic Disease Visit [facility] Start: 11-06-2024 BP Controlled (<130/80) BP Controlled (<130/80) [facility] Start: 10-31-2024 Annual PCP Team Chronic Disease Visit Annual PCP Team Chronic Disease Visit [facility] Start: 10-31-2024 Complete blood count Hemoglobin/Hematocrit [facility] Start: 10-31-2024 Creatinine measurement Serum Creatinine [facility] Start: 10-30-2024 Screening for malignant neoplasm of colon [facility] Start: 10-30-2024 End: 10-30-2024 Patient encounter procedure [facility] Start: 01-24-2025 Pneumococcal Vaccine: 50+ (1 of 1 - PCV) Pneumococcal Vaccine: 50+ (1 of 1 - PCV) [facility] Comment on above: Postponed from 2003 (Declined at t his time) Start: 10-25-2024 Pneumococcal Vaccine: 65+ (1 of 1 - PCV) Pneumococcal Vaccine: 65+ (1 of 1 - PCV) [facility] Comment on above: Postponed from 2018 (Declined at t his time) Start: 10-25-2024 Shingrix Vaccine (1 of 2) Shingrix Vaccine (1 of 2) [facility] Comment on above: Postponed from 2003 (Declined at t his time) Start: 10-22-2024 End: 10-22-2024 Patient encounter procedure 10/22/2024 10:00 AM EST Office Visit [facility] [address] [place] [id number] Bridget De Luna MD [address] [place], [place] [id number] medicare wellness [facility] Comment on above: medicare wellness Start: 10-19-2024 End: 10-19-2024 Patient encounter procedure 10/19/2024 11:00 AM EST Office Visit [facility] [address] [place] [phone] Bridget De Luna MD [address] [place] [phone] Well visit [facility] Comment on above: Well visit Start: 10-18-2024 Screening for malignant neoplasm of breast [facility] Start: 10-15-2024 End: 01-14-2025 Basic metabolic 2000 panel - Serum or Plasma [facility] Comment on above: Expected: 10/15/2024, Expires: Start: 10-15-2024 End: 01-14-2025 Folate [Mass/volume] in Serum or Plasma [facility] Work Phone: Comment on above: Expected: 10/15/2024, Expires: Start: 10-15-2024 End: 01-14-2025 Magnesium [Mass/volume] in Serum or Plasma [facility] Comment on above: Expected: 10/15/2024, Expires: 5 Start: 10-14-2024 End: 10-14-2024 Patient encounter procedure Cat Scan Comment on above: Flank pain [R10.9] Start: 10-04-2024 End: 11-03-2025 CT Abdomen and Pelvis WO contrast CT ABD/PEL WO IVCON Radiology Routine Flank pain Expected: 10/04/2024, Expires: 11/03/2025 [facility] Comment on above: Expected: 10/04/2024, Expires: 6 Start: 10-04-2024 End: 11-03-2025 XR Abdomen Supine and Upright [facility] Work Phone: Comment on above: Expected: 10/04/2024, Expires: 6 Start: 10-02-2024 Advance Directive Discussion Advance Directive Discussion [facility] Start: 09-23-2024 End: 12-23-2024 CBC W Auto Differential panel - Blood [facility] Work Phone: Comment on above: Expected: 09/23/2024, Expires: 5 Start: 09-23-2024 End: 12-23-2024 Comprehensive metabolic 2000 panel - Serum or Plasma [facility] Comment on above: Expected: 09/23/2024, Expires: 5 Start: 09-23-2024 End: 12-23-2024 Lipase [Enzymatic activity/volume] in Serum or Plasma [facility] Comment on above: Expected: 09/23/2024, Expires: 5 Start: 09-07-2024 Annual PCP Team Chronic Disease Visit Annual PCP Team Chronic Disease Visit [facility] Start: 09-07-2024 BP Controlled (<130/80) BP Controlled (<130/80) [facility] Start: 09-04-2024 Annual PCP Team Chronic Disease Visit Annual PCP Team Chronic Disease Visit [facility] Start: 09-03-2024 End: 09-03-2024 Admission to same day surgery center 09/03/2024 9:00 AM [facility] [address] [phone] [place] [address] [address] [place] [id number] EST Panc Cyst General Surgery Comment on above: EST Panc Cyst Start: 09-01-2024 Annual PCP Team Chronic Disease Visit Annual PCP Team Chronic Disease Visit [facility] Start: 09-01-2024 Complete blood count Hemoglobin/Hematocrit [facility] Start: 09-01-2024 Creatinine measurement Serum Creatinine [facility] Start: 09-01-2024 Hemoglobin/Hematocrit Hemoglobin/Hematocrit [facility] Start: 09-01-2024 Serum Creatinine Serum Creatinine [facility] Start: 08-21-2024 Annual PCP Team Chronic Disease Visit Annual PCP Team Chronic Disease Visit [facility] Start: 08-21-2024 Covid-19 Vaccine (2022- season) Covid-19 Vaccine (2022- season) [facility] Comment on above: Postponed from 06/02/2023 (Declined at t his time) Start: 08-21-2024 RSV Vaccine (1 - 1-dose 60+ series) RSV Vaccine (1 - 1-dose 60+ series) [facility] Comment on above: Postponed from 2013 (Declined at t his time) Start: 08-17-2024 End: 08-17-2024 Patient encounter procedure 08/17/2024 9:40 AM EST Office Visit [facility] [address] [place] [address] Bridget De Luna MD [address] [place] [address] 3 month [facility] [place] Comment on above: 3 month Start: 08-16-2024 End: 08-16-2024 Patient encounter procedure 08/16/2024 9:20 AM EST Appointment Cat Scan [address] [place], [place] [phone] Solitary lung nodule [R91.1]; Lung nodules [R91.8] Cat Scan Comment on above: Solitary lung nodule [R91.1]; Lung nodul es [R91.8] Start: 08-08-2024 End: 11-07-2024 Cobalamin (Vitamin B12) [Mass/volume] in Serum or Plasma [facility] Comment on above: Expected: 08/08/2024, Expires: Start: 08-08-2024 End: 11-07-2024 Folate [Mass/volume] in Serum or Plasma [facility] Work Phone: Comment on above: Expected: 08/08/2024, Expires: Start: 08-07-2024 Annual PCP Team Chronic Disease Visit Annual PCP Team Chronic Disease Visit [facility] Start: 08-07-2024 BP Controlled (<130/80) BP Controlled (<130/80) [facility] in Start: 08-05-2024 End: 08-05-2024 Patient encounter procedure General Surgery Comment on above: Get checked for gerd and do a upper scop e Start: 08-04-2024 Annual PCP Team Chronic Disease Visit Annual PCP Team Chronic Disease Visit [facility] Start: 07-30-2024 End: 07-30-2024 Patient encounter procedure 07/30/2024 10:40 AM EDT Office Visit Endocrinology [address] [place], [place] [phone] Megan Sharp MD [address] [place], [place] [address] GERD without esophagitis [K21.9]; Osteoporosis without current pathological fracture, unspecified osteoporosis type [M81.0] Endocrinology Comment on above: GERD without esophagitis [K21.9]; Osteop orosis without current pathological fracture, unspecified osteoporosis type [M81.0] Start: 07-23-2024 End: 07-23-2024 Patient encounter procedure 07/23/2024 11:40 AM EDT Office Visit Urology [address] [id number] Halie Terrazas, FIELD MECHANIC.WASH WORKER [address] [place] [address] Check urine burning when going to the bathroom Urology Comment on above: Check urine burning when going to the ba throom Start: 07-08-2024 End: 07-08-2024 Patient encounter procedure 07/08/2024 9:00 AM EDT Office Visit General Surgery [address] [place] [address] Rosie Luna MD [address] [place] [address] Need to set up to get a upper scope General Surgery Comment on above: Need to set up to get a upper scope Start: 07-04-2024 End: 07-04-2024 Patient encounter procedure 07/04/2024 10:00 AM EDT Appointment Radiology [address] [place] [address] Thyroid nodule [E04.1] Radiology Comment on above: Thyroid nodule [E04.1] Start: 07-02-2024 DIABETES SCREEN DIABETES SCREEN [facility] Start: 07-01-2024 End: 07-01-2024 Patient encounter procedure 07/01/2024 10:45 AM EDT Office Visit General Surgery [address] [place] [address] Rosie Luna MD [address] [place] [phone] Need to set up to get a upper scope General Surgery Comment on above: Need to set up to get a upper scope Start: 06-26-2024 Annual PCP Team Chronic Disease Visit Annual PCP Team Chronic Disease Visit [facility] Start: 06-26-2024 End: 06-26-2024 Patient encounter procedure 06/26/2024 2:00 PM EDT Office Visit [facility] [address] [place] [address] Bridget De Luna MD [address] [place] [address] 3 month Family [facility] Comment on above: 3 month Start: 06-25-2024 End: 06-25-2024 Patient encounter procedure 06/25/2024 2:40 PM EDT Office Visit [facility] [address] [place] [id number] Bridget De Luna MD [address] [place] [id number] 3 month Family [facility] [place] Comment on above: 3 month Start: 06-24-2024 End: 06-24-2024 Patient encounter procedure 06/24/2024 8:30 AM EDT Appointment Radiology [address] [place] [id number] Thyroid nodule [E04.1] Radiology Comment on above: Thyroid nodule [E04.1] Start: 06-18-2024 End: 06-18-2024 Patient encounter procedure 06/18/2024 11:30 AM EDT Appointment Radiology [address] [place] [id number] Thyroid nodule [E04.1] Radiology Comment on above: Thyroid nodule [E04.1] Start: 06-13-2024 End: 06-13-2024 Patient encounter procedure 06/13/2024 8:55 AM EDT Appointment Radiology [address] [place] [id number] Osteoporosis without current pathological fracture, unspecified osteoporosis typ... Radiology Comment on above: Osteoporosis without current pathologica l fracture, unspecified osteoporosis typ... Start: 06-12-2024 ANNUAL PCP TEAM CHRONIC DISEASE VISIT ANNUAL PCP TEAM CHRONIC DISEASE VISIT [facility] Start: 06-12-2024 BP CONTROLLED (<130/80) BP CONTROLLED (<130/80) [facility] Start: 06-11-2024 End: 09-10-2024 Cobalamin (Vitamin B12) [Mass/volume] in Serum or Plasma [facility] Comment on above: Expected: 06/11/2024, Expires: Start: 06-11-2024 End: 09-10-2024 Comprehensive metabolic 2000 panel - Serum or Plasma [facility] Comment on above: Expected: 06/11/2024, Expires: Start: 06-11-2024 End: 09-10-2024 Ferritin [Mass/volume] in Serum or Plasma [facility] Comment on above: Expected: 06/11/2024, Expires: Start: 06-11-2024 End: 09-10-2024 Folate [Mass/volume] in Serum or Plasma [facility] Work Phone: Comment on above: Expected: 06/11/2024, Expires: Start: 06-11-2024 End: 09-10-2024 Hemoglobin A1c in Blood [facility] Comment on above: Expected: 06/11/2024, Expires: Start: 06-11-2024 End: 09-10-2024 Iron and Iron binding capacity panel - Serum or Plasma [facility] Comment on above: Expected: 06/11/2024, Expires: Start: 06-11-2024 End: 09-10-2024 Thyrotropin [Units/volume] in Serum or Plasma [facility] Comment on above: Expected: 06/11/2024, Expires: Start: 06-04-2024 End: 06-04-2024 ambulatory 06/04/2024 9:00 AM EDT Results Only [facility] [address] [place] [address] [facility] Start: 06-02-2024 End: 09-01-2024 25-hydroxyvitamin D3 [Mass/volume] in Serum or Plasma VITAMIN D 25 HYDROXY Lab Routine Osteoporosis without current pathological fracture, unspecified osteoporosis type Expected: 06/02/2024, Expires: 09/01/2024 [facility] Comment on above: Expected: 06/02/2024, Expires: Start: 06-02-2024 End: 09-01-2024 CBC W Auto Differential panel - Blood COMPLETE BLOOD COUNT AND DIFFERENTIAL Lab Routine Primary hypertension Expected: 06/02/2024, Expires: 09/01/2024 [facility] Comment on above: Expected: 06/02/2024, Expires: Start: 06-02-2024 End: 09-01-2024 Comprehensive metabolic 2000 panel - Serum or Plasma COMPREHENSIVE METABOLIC PANEL Lab Routine Primary hypertension Expected: 06/02/2024, Expires: 09/01/2024 [facility] Comment on above: Expected: 06/02/2024, Expires: Start: 06-02-2024 Covid-19 Vaccine ( season) Covid-19 Vaccine ( season) [facility] Start: 06-02-2024 Influenza vaccination Influenza Vaccine (Season Ended) [facility] Start: 06-02-2024 End: 09-01-2024 Lipid 1996 panel - Serum or Plasma LIPID PANEL BASIC Lab Routine Primary hypertension Expected: 06/02/2024, Expires: 09/01/2024 [facility] Comment on above: Expected: 06/02/2024, Expires: Start: 06-01-2024 ANNUAL PCP TEAM CHRONIC DISEASE VISIT ANNUAL PCP TEAM CHRONIC DISEASE VISIT [facility] Start: 06-01-2024 BP CONTROLLED (<130/80) BP CONTROLLED (<130/80) [facility] in Start: 05-31-2024 Screening for osteoporosis [facility] Start: 05-31-2024 End: 05-31-2024 Patient encounter procedure Cat Scan Comment on above: CT ABD/PEL WO IVCON Start: 05-28-2024 End: 05-28-2024 ambulatory 05/28/2024 10:00 AM EDT OT/PT/Speech Visit [facility] [address] [place] [address] Roni Bonilla, PT DDD (degenerative disc disease), lumbar [M51.36] [facility] Comment on above: DDD (degenerative disc disease), lumbar [M51.36] Start: 05-23-2024 ANNUAL PCP TEAM CHRONIC DISEASE VISIT ANNUAL PCP TEAM CHRONIC DISEASE VISIT [facility] Start: 05-18-2024 ANNUAL PCP TEAM CHRONIC DISEASE VISIT ANNUAL PCP TEAM CHRONIC DISEASE VISIT [facility] Start: 05-09-2024 End: 05-09-2024 ambulatory 05/09/2024 10:00 AM EDT OT/PT/Speech Visit [facility] [address] [place] [address] Roni Bonilla, PT DDD (degenerative disc disease), lumbar [M51.36] [facility] Comment on above: DDD (degenerative disc disease), lumbar [M51.36] Start: 05-08-2024 ANNUAL PCP TEAM CHRONIC DISEASE VISIT ANNUAL PCP TEAM CHRONIC DISEASE VISIT [facility] Start: 05-03-2024 ANNUAL PCP TEAM CHRONIC DISEASE VISIT ANNUAL PCP TEAM CHRONIC DISEASE VISIT [facility] Start: 05-03-2024 BP CONTROLLED (<130/80) BP CONTROLLED (<130/80) [facility] in Start: 04-27-2024 ANNUAL PCP TEAM CHRONIC DISEASE VISIT ANNUAL PCP TEAM CHRONIC DISEASE VISIT [facility] Start: 04-27-2024 BP CONTROLLED (<130/80) BP CONTROLLED (<130/80) [facility] in Start: 04-24-2024 End: 04-24-2024 Patient encounter procedure Mammogram Comment on above: Comp- Lt breast pain. Diagnostic Mammogr am Breast pain [N64.4] Start: 04-10-2024 End: 04-10-2024 Patient encounter procedure 04/10/2024 1:10 PM EDT Appointment [facility] [address] [place] [id number] [phone] Stephani Merino, DO [address] [facility], [address] [place] [address] [facility] Start: 04-08-2024 End: 07-08-2024 Comprehensive metabolic 2000 panel - Serum or Plasma [facility] Work Phone: Comment on above: Expected: 04/08/2024, Expires: Start: 04-08-2024 End: 07-08-2024 Magnesium [Mass/volume] in Serum or Plasma [facility] Comment on above: Expected: 04/08/2024, Expires: Start: 04-07-2024 ANNUAL PCP TEAM CHRONIC DISEASE VISIT ANNUAL PCP TEAM CHRONIC DISEASE VISIT [facility] Start: 04-03-2024 End: 04-03-2024 Patient encounter procedure 04/03/2024 9:00 AM EDT Appointment Radiology [address] [id number] Breast pain [N64.4] Radiology Comment on above: Breast pain [N64.4] Start: 03-30-2024 ANNUAL PCP TEAM CHRONIC DISEASE VISIT ANNUAL PCP TEAM CHRONIC DISEASE VISIT [facility] Start: 03-30-2024 BP CONTROLLED (<130/80) BP CONTROLLED (<130/80) [facility] in Start: 03-28-2024 End: 03-28-2024 Patient encounter procedure 03/28/2024 10:00 AM EDT [facility] [address] [place] [id number] Daylin Mendenhall FIELD MECHANIC.CERTIFIED ORTHOTIST/PEDORTHIST [address] [facility] [facility] [place] [id number] 3 month [facility] Comment on above: 3 month Start: 03-26-2024 End: 06-25-2024 Basic metabolic 2000 panel - Serum or Plasma [facility] Comment on above: Expected: 03/26/2024, Expires: 4 Start: 03-26-2024 End: 06-25-2024 CBC W Auto Differential panel - Blood [facility] Work Phone: Comment on above: Expected: 03/26/2024, Expires: 4 Start: 03-26-2024 End: 06-25-2024 Cobalamin (Vitamin B12) [Mass/volume] in Serum or Plasma [facility] Comment on above: Expected: 03/26/2024, Expires: 4 Start: 03-26-2024 End: 06-25-2024 Folate [Mass/volume] in Serum or Plasma [facility] Comment on above: Expected: 03/26/2024, Expires: 4 Start: 03-18-2024 ANNUAL PCP TEAM CHRONIC DISEASE VISIT ANNUAL PCP TEAM CHRONIC DISEASE VISIT [facility] Start: 03-18-2024 BP CONTROLLED (<130/80) BP CONTROLLED (<130/80) [facility] in Start: 03-18-2024 HEMOGLOBIN/HEMATOCRIT HEMOGLOBIN/HEMATOCRIT [facility] Start: 03-18-2024 SERUM CREATININE SERUM CREATININE [facility] Start: 03-16-2024 ANNUAL PCP TEAM CHRONIC DISEASE VISIT ANNUAL PCP TEAM CHRONIC DISEASE VISIT [facility] Start: 03-16-2024 BP CONTROLLED (<130/80) BP CONTROLLED (<130/80) [facility] Start: 03-14-2024 End: 06-14-2024 Cologuard colon cancer screening Cologuard colon cancer screening Lab Routine Colon cancer screening Expected: 03/14/2024 (Approximate), Expires: 06/14/2024 [facility] Service Area Work Phone: Comment on above: Expected: 03/14/2024 (Approximate), Expi res: 06/14/2024 Start: 03-02-2024 ANNUAL PCP TEAM CHRONIC DISEASE VISIT ANNUAL PCP TEAM CHRONIC DISEASE VISIT [facility] Start: 03-02-2024 BP CONTROLLED (<130/80) BP CONTROLLED (<130/80) [facility] Start: 02-25-2024 ANNUAL PCP TEAM CHRONIC DISEASE VISIT ANNUAL PCP TEAM CHRONIC DISEASE VISIT [facility] Start: 01-31-2024 ANNUAL PCP TEAM CHRONIC DISEASE VISIT ANNUAL PCP TEAM CHRONIC DISEASE VISIT [facility] Start: 01-31-2024 BP CONTROLLED (<130/80) BP CONTROLLED (<130/80) [facility] Start: 01-27-2024 BP CONTROLLED (<130/80) BP CONTROLLED (<130/80) [facility] Start: 01-23-2024 End: 04-23-2024 Comprehensive metabolic 2000 panel - Serum or Plasma [facility] Work Phone: Comment on above: Expected: 01/23/2024, Expires: 4 Start: 01-23-2024 End: 04-23-2024 Lipase [Enzymatic activity/volume] in Serum or Plasma [facility] Comment on above: Expected: 01/23/2024, Expires: 4 Start: 01-19-2024 HEMOGLOBIN/HEMATOCRIT HEMOGLOBIN/HEMATOCRIT [facility] Start: 01-19-2024 SERUM CREATININE SERUM CREATININE [facility] Start: 01-17-2024 ANNUAL PCP TEAM CHRONIC DISEASE VISIT ANNUAL PCP TEAM CHRONIC DISEASE VISIT [facility] Start: 12-21-2023 ANNUAL PCP TEAM CHRONIC DISEASE VISIT ANNUAL PCP TEAM CHRONIC DISEASE VISIT [facility] Start: 11-23-2023 Mammography [facility] Start: 11-23-2023 Screening for malignant neoplasm of breast Mammogram Screening [facility] Start: 11-20-2023 End: 02-19-2024 Cobalamin (Vitamin B12) [Mass/volume] in Serum or Plasma VITAMIN B12 BLOOD Lab Routine Folic acid deficiency Expected: 11/20/2023, Expires: 02/19/2024 [facility] Work Phone: Comment on above: Expected: 11/20/2023, Expires: 4 Start: 11-20-2023 End: 02-19-2024 Folate [Mass/volume] in Serum or Plasma FOLATE SERUM Lab Routine Folic acid deficiency Expected: 11/20/2023, Expires: 02/19/2024 [facility] Work Phone: Comment on above: Expected: 11/20/2023, Expires: 4 Start: 11-20-2023 End: 02-19-2024 VITAMIN B1 (THIAMINE), WHOLE BLOOD VITAMIN B1 (THIAMINE), WHOLE BLOOD Lab Routine Folic acid deficiency Expected: 11/20/2023, Expires: 02/19/2024 [facility] Work Phone: Comment on above: Expected: 11/20/2023, Expires: Start: 11-17-2023 ANNUAL PCP TEAM CHRONIC DISEASE VISIT ANNUAL PCP TEAM CHRONIC DISEASE VISIT [facility] Start: 11-17-2023 BP CONTROLLED (<130/80) BP CONTROLLED (<130/80) [facility] Start: 11-08-2023 HEMOGLOBIN/HEMATOCRIT HEMOGLOBIN/HEMATOCRIT [facility] Start: 11-08-2023 SERUM CREATININE SERUM CREATININE [facility] Start: 11-05-2023 ANNUAL PCP TEAM CHRONIC DISEASE VISIT ANNUAL PCP TEAM CHRONIC DISEASE VISIT [facility] Start: 11-05-2023 BP CONTROLLED (<130/80) BP CONTROLLED (<130/80) [facility] Start: 11-03-2023 End: 02-02-2024 Erythrocyte sedimentation rate SED RATE WESTERGREN Lab Routine GERD without esophagitis Epigastric pain Expected: 11/03/2023, Expires: 02/02/2024 [facility] Work Phone: Comment on above: Expected: 11/03/2023, Expires: Start: 10-22-2023 ANNUAL PCP TEAM CHRONIC DISEASE VISIT ANNUAL PCP TEAM CHRONIC DISEASE VISIT [facility] Start: 10-22-2023 BP CONTROLLED (<130/80) BP CONTROLLED (<130/80) [facility] in Start: 10-10-2023 ANNUAL PCP TEAM CHRONIC DISEASE VISIT ANNUAL PCP TEAM CHRONIC DISEASE VISIT [facility] Start: 10-10-2023 BP CONTROLLED (<130/80) BP CONTROLLED (<130/80) [facility] Start: 10-07-2023 Mammography MAMMOGRAM [facility] Start: 10-02-2023 Behavioral Health Screening Behavioral Health Screening [facility] Start: 09-29-2023 ANNUAL PCP TEAM CHRONIC DISEASE VISIT ANNUAL PCP TEAM CHRONIC DISEASE VISIT [facility] Start: 09-29-2023 BP CONTROLLED (<130/80) BP CONTROLLED (<130/80) [facility] Start: 09-20-2023 ANNUAL PCP TEAM CHRONIC DISEASE VISIT ANNUAL PCP TEAM CHRONIC DISEASE VISIT [facility] Start: 09-07-2023 ANNUAL PCP TEAM CHRONIC DISEASE VISIT ANNUAL PCP TEAM CHRONIC DISEASE VISIT [facility] Start: 09-07-2023 BP CONTROLLED (<130/80) BP CONTROLLED (<130/80) [facility] Start: 09-07-2023 COVID-19 VACCINE (2 - Pfizer series) COVID-19 VACCINE (2 - Pfizer series) [facility] Comment on above: Postponed from 05/12/2021 (Declined at t his time) Postponed from 06/16 (Declined at this time) Start: 09-07-2023 Pneumococcal Vaccine: 65+ (1 - PCV) Pneumococcal Vaccine: 65+ (1 - PCV) [facility] Comment on above: Postponed from 2018 (Declined at t his time) Start: 09-07-2023 PNEUMOCOCCAL: 65+ (1 - PCV) PNEUMOCOCCAL: 65+ (1 - PCV) [facility] Comment on above: Postponed from 2018 (Declined at t his time) Start: 09-07-2023 SHINGRIX VACCINE (1 of 2) SHINGRIX VACCINE (1 of 2) [facility] Comment on above: Postponed from 2003 (Declined at t his time) Start: 09-02-2023 End: 12-02-2023 Folate [Mass/volume] in Serum or Plasma FOLATE SERUM Lab Routine Folic acid deficiency Expected: 09/02/2023, Expires: 12/02/2023 [facility] Work Phone: Comment on above: Expected: 09/02/2023, Expires: Start: 09-02-2023 End: 12-02-2023 Lipid 1996 panel - Serum or Plasma LIPID PANEL BASIC Lab Routine Mixed hyperlipidemia Expected: 09/02/2023, Expires: 12/02/2023 [facility] Work Phone: Comment on above: Expected: 09/02/2023, Expires: Start: 08-21-2023 End: 11-20-2023 CBC W Auto Differential panel - Blood CBC + DIFF Lab Routine Primary hypertension Expected: 08/21/2023, Expires: 11/20/2023 [facility] Work Phone: Comment on above: Expected: 08/21/2023, Expires: 4 Start: 08-21-2023 End: 11-20-2023 Comprehensive metabolic 2000 panel - Serum or Plasma COMP METABOLIC PANEL Lab Routine Primary hypertension Expected: 08/21/2023, Expires: 11/20/2023 [facility] Work Phone: Comment on above: Expected: 08/21/2023, Expires: 4 Start: 08-21-2023 End: 11-20-2023 Folate [Mass/volume] in Serum or Plasma FOLATE SERUM Lab Routine Folate deficiency Expected: 08/21/2023, Expires: 11/20/2023 [facility] Work Phone: Comment on above: Expected: 08/21/2023, Expires: Start: 08-21-2023 End: 11-20-2023 Lipid 1996 panel - Serum or Plasma LIPID PANEL BASIC Lab Routine Primary hypertension Mixed hyperlipidemia Expected: 08/21/2023, Expires: 11/20/2023 [facility] Work Phone: Comment on above: Expected: 08/21/2023, Expires: 4 Start: 08-18-2023 ANNUAL PCP TEAM CHRONIC DISEASE VISIT ANNUAL PCP TEAM CHRONIC DISEASE VISIT [facility] Start: 07-14-2023 ANNUAL PCP TEAM CHRONIC DISEASE VISIT ANNUAL PCP TEAM CHRONIC DISEASE VISIT [facility] Start: 07-14-2023 BP CONTROLLED (<130/80) BP CONTROLLED (<130/80) [facility] Start: 07-01-2023 End: 08-31-2023 Folate [Mass/volume] in Serum or Plasma FOLATE SERUM Lab Routine Folic acid deficiency Expected: 07/01/2023, Expires: 08/31/2023 [facility] Work Phone: Comment on above: Expected: 07/01/2023, Expires: 3 Start: 06-08-2023 ANNUAL PCP TEAM CHRONIC DISEASE VISIT ANNUAL PCP TEAM CHRONIC DISEASE VISIT [facility] Start: 06-08-2023 BP CONTROLLED (<130/80) BP CONTROLLED (<130/80) [facility] in Start: 06-08-2023 HEMOGLOBIN/HEMATOCRIT HEMOGLOBIN/HEMATOCRIT [facility] Start: 06-08-2023 SERUM CREATININE SERUM CREATININE [facility] Start: 06-07-2023 ANNUAL PCP TEAM CHRONIC DISEASE VISIT ANNUAL PCP TEAM CHRONIC DISEASE VISIT [facility] Start: 06-02-2023 Covid-19 Vaccine ( season) Covid-19 Vaccine () [facility] Start: 05-30-2023 ANNUAL PCP TEAM CHRONIC DISEASE VISIT ANNUAL PCP TEAM CHRONIC DISEASE VISIT [facility] Start: 05-30-2023 BP CONTROLLED (<130/80) BP CONTROLLED (<130/80) [facility] Start: 05-27-2023 BP CONTROLLED (<130/80) BP CONTROLLED (<130/80) [facility] in Start: 05-24-2023 BP CONTROLLED (<130/80) BP CONTROLLED (<130/80) [facility] Start: 05-18-2023 ANNUAL PCP TEAM CHRONIC DISEASE VISIT ANNUAL PCP TEAM CHRONIC DISEASE VISIT [facility] Start: 05-13-2023 ANNUAL PCP TEAM CHRONIC DISEASE VISIT ANNUAL PCP TEAM CHRONIC DISEASE VISIT [facility] Start: 05-10-2023 BP CONTROLLED (<130/80) BP CONTROLLED (<130/80) [facility] Start: 04-21-2023 BP CONTROLLED (<130/80) BP CONTROLLED (<130/80) [facility] Start: 04-19-2023 ANNUAL PCP TEAM CHRONIC DISEASE VISIT ANNUAL PCP TEAM CHRONIC DISEASE VISIT [facility] Start: 04-07-2023 ANNUAL PCP TEAM CHRONIC DISEASE VISIT ANNUAL PCP TEAM CHRONIC DISEASE VISIT [facility] Start: 04-01-2023 ANNUAL PCP TEAM CHRONIC DISEASE VISIT ANNUAL PCP TEAM CHRONIC DISEASE VISIT [facility] Start: 04-01-2023 BP CONTROLLED (<130/80) BP CONTROLLED (<130/80) [facility] Start: 03-30-2023 End: 05-30-2023 25-hydroxyvitamin D3 [Mass/volume] in Serum or Plasma [facility] Work Phone: Comment on above: Expected: 03/30/2023, Expires: 3 Start: 03-30-2023 End: 05-30-2023 Cobalamin (Vitamin B12) [Mass/volume] in Serum or Plasma [facility] Work Phone: Comment on above: Expected: 03/30/2023, Expires: 3 Start: 03-30-2023 End: 05-30-2023 Folate [Mass/volume] in Serum or Plasma [facility] Work Phone: Comment on above: Expected: 03/30/2023, Expires: 3 Start: 03-18-2023 End: 05-18-2023 CBC W Auto Differential panel - Blood [facility] Work Phone: Comment on above: Expected: 03/18/2023, Expires: 3 Start: 03-18-2023 End: 05-18-2023 Comprehensive metabolic 2000 panel - Serum or Plasma [facility] Work Phone: Comment on above: Expected: 03/18/2023, Expires: 3 Start: 03-18-2023 End: 05-18-2023 Lipase [Enzymatic activity/volume] in Serum or Plasma [facility] Work Phone: Comment on above: Expected: 03/18/2023, Expires: 3 Start: 03-14-2023 ANNUAL PCP TEAM CHRONIC DISEASE VISIT ANNUAL PCP TEAM CHRONIC DISEASE VISIT [facility] Start: 03-14-2023 BP CONTROLLED (<130/80) BP CONTROLLED (<130/80) [facility] Start: 03-14-2023 HEMOGLOBIN/HEMATOCRIT HEMOGLOBIN/HEMATOCRIT [facility] Start: 03-14-2023 SERUM CREATININE SERUM CREATININE [facility] Start: 03-11-2023 ANNUAL PCP TEAM CHRONIC DISEASE VISIT ANNUAL PCP TEAM CHRONIC DISEASE VISIT [facility] Start: 03-11-2023 BP CONTROLLED (<130/80) BP CONTROLLED (<130/80) [facility] Start: 03-03-2023 ANNUAL PCP TEAM CHRONIC DISEASE VISIT ANNUAL PCP TEAM CHRONIC DISEASE VISIT [facility] Start: 02-26-2023 ANNUAL PCP TEAM CHRONIC DISEASE VISIT ANNUAL PCP TEAM CHRONIC DISEASE VISIT [facility] Start: 02-26-2023 BP CONTROLLED (<130/80) BP CONTROLLED (<130/80) [facility] Start: 02-24-2023 ANNUAL PCP TEAM CHRONIC DISEASE VISIT ANNUAL PCP TEAM CHRONIC DISEASE VISIT [facility] Start: 02-24-2023 BP CONTROLLED (<130/80) BP CONTROLLED (<130/80) [facility] Start: 02-18-2023 ANNUAL PCP TEAM CHRONIC DISEASE VISIT ANNUAL PCP TEAM CHRONIC DISEASE VISIT [facility] Start: 02-18-2023 BP CONTROLLED (<130/80) BP CONTROLLED (<130/80) [facility] Start: 02-14-2023 ANNUAL PCP TEAM CHRONIC DISEASE VISIT ANNUAL PCP TEAM CHRONIC DISEASE VISIT [facility] Start: 02-14-2023 BP CONTROLLED (<130/80) BP CONTROLLED (<130/80) [facility] Start: 02-09-2023 BP CONTROLLED (<130/80) BP CONTROLLED (<130/80) [facility] Start: 02-07-2023 ANNUAL PCP TEAM CHRONIC DISEASE VISIT ANNUAL PCP TEAM CHRONIC DISEASE VISIT [facility] Start: 02-07-2023 BP CONTROLLED (<130/80) BP CONTROLLED (<130/80) [facility] Start: 02-02-2023 Adult depression screening assessment DEPRESSION SCREENING [facility] Start: 02-02-2023 ANNUAL PCP TEAM CHRONIC DISEASE VISIT ANNUAL PCP TEAM CHRONIC DISEASE VISIT [facility] Start: 02-02-2023 HEMOGLOBIN/HEMATOCRIT HEMOGLOBIN/HEMATOCRIT [facility] Start: 01-29-2023 ANNUAL PCP TEAM CHRONIC DISEASE VISIT ANNUAL PCP TEAM CHRONIC DISEASE VISIT [facility] Start: 01-29-2023 HEMOGLOBIN/HEMATOCRIT HEMOGLOBIN/HEMATOCRIT [facility] Start: 01-29-2023 SERUM CREATININE SERUM CREATININE [facility] Start: 01-26-2023 BP CONTROLLED (<130/80) BP CONTROLLED (<130/80) [facility] in Start: 01-16-2023 End: 03-18-2023 CBC W Auto Differential panel - Blood CBC + DIFF Lab Routine Primary hypertension Fatigue, unspecified type Expected: 01/16/2023, Expires: 03/18/2023 [facility] Work Phone: Comment on above: Expected: 01/16/2023, Expires: 3 Start: 01-16-2023 End: 03-18-2023 Comprehensive metabolic 2000 panel - Serum or Plasma COMP METABOLIC PANEL Lab Routine Primary hypertension Fatigue, unspecified type Expected: 01/16/2023, Expires: 03/18/2023 [facility] Work Phone: Comment on above: Expected: 01/16/2023, Expires: 3 Start: 01-16-2023 End: 03-18-2023 Lipase [Enzymatic activity/volume] in Serum or Plasma LIPASE BLD Lab Routine RUQ pain Expected: 01/16/2023, Expires: 03/18/2023 [facility] Work Phone: Comment on above: Expected: 01/16/2023, Expires: 3 Start: 01-16-2023 End: 03-18-2023 Lipid 1996 panel - Serum or Plasma LIPID PANEL BASIC Lab Routine Primary hypertension Expected: 01/16/2023, Expires: 03/18/2023 [facility] Work Phone: Comment on above: Expected: 01/16/2023, Expires: 3 Start: 01-16-2023 End: 03-18-2023 Thyrotropin [Units/volume] in Serum or Plasma TSH BLD Lab Routine Fatigue, unspecified type Expected: 01/16/2023, Expires: 03/18/2023 [facility] Work Phone: Comment on above: Expected: 01/16/2023, Expires: 3 Start: 01-06-2023 ANNUAL PCP TEAM CHRONIC DISEASE VISIT ANNUAL PCP TEAM CHRONIC DISEASE VISIT [facility] Start: 01-03-2023 ANNUAL PCP TEAM CHRONIC DISEASE VISIT ANNUAL PCP TEAM CHRONIC DISEASE VISIT [facility] Start: 12-17-2022 ANNUAL PCP TEAM CHRONIC DISEASE VISIT ANNUAL PCP TEAM CHRONIC DISEASE VISIT [facility] Start: 11-17-2022 End: 01-17-2023 Lead [Mass/volume] in Blood [facility] Work Phone: Comment on above: Expected: 11/17/2022, Expires: 3 Start: 11-05-2022 End: 01-05-2023 CBC W Auto Differential panel - Blood CBC + DIFF Lab Routine Primary hypertension Expected: 11/05/2022, Expires: 01/05/2023 [facility] Work Phone: Comment on above: Expected: 11/05/2022, Expires: 3 Start: 11-05-2022 End: 01-05-2023 Comprehensive metabolic 2000 panel - Serum or Plasma COMP METABOLIC PANEL Lab Routine Mixed hyperlipidemia Expected: 11/05/2022, Expires: 01/05/2023 [facility] Work Phone: Comment on above: Expected: 11/05/2022, Expires: 3 Start: 11-05-2022 End: 01-05-2023 Lipid 1996 panel - Serum or Plasma LIPID PANEL BASIC Lab Routine Mixed hyperlipidemia Expected: 11/05/2022, Expires: 01/05/2023 [facility] Work Phone: Comment on above: Expected: 11/05/2022, Expires: 3 Start: 10-25-2022 HEMOGLOBIN/HEMATOCRIT HEMOGLOBIN/HEMATOCRIT [facility] Start: 10-25-2022 SERUM CREATININE SERUM CREATININE [facility] Start: 10-12-2022 Mammography MAMMOGRAM [facility] Start: 10-02-2022 ADVANCE DIRECTIVE DISCUSSION ADVANCE DIRECTIVE DISCUSSION [facility] Start: 10-02-2022 DEPRESSION ASSESSMENT DEPRESSION ASSESSMENT [facility] Start: 08-24-2022 BP CONTROLLED (<130/80) BP CONTROLLED (<130/80) [facility] Start: 06-08-2022 End: 08-08-2022 25-hydroxyvitamin D3 [Mass/volume] in Serum or Plasma [facility] Work Phone: Comment on above: Expected: 06/08/2022, Expires: 2 Start: 06-08-2022 End: 08-08-2022 CBC W Auto Differential panel - Blood [facility] Work Phone: Comment on above: Expected: 06/08/2022, Expires: 2 Start: 06-08-2022 End: 08-08-2022 Cobalamin (Vitamin B12) [Mass/volume] in Serum or Plasma [facility] Work Phone: Comment on above: Expected: 06/08/2022, Expires: 2 Start: 06-08-2022 End: 08-08-2022 Comprehensive metabolic 2000 panel - Serum or Plasma [facility] Work Phone: Comment on above: Expected: 06/08/2022, Expires: 2 Start: 06-08-2022 End: 08-08-2022 Iron and Iron binding capacity panel - Serum or Plasma [facility] Work Phone: Comment on above: Expected: 06/08/2022, Expires: 2 Start: 06-08-2022 End: 08-08-2022 Magnesium [Mass/volume] in Serum or Plasma [facility] Work Phone: Comment on above: Expected: 06/08/2022, Expires: 2 Start: 06-08-2022 End: 08-08-2022 Thyrotropin [Units/volume] in Serum or Plasma [facility] Work Phone: Comment on above: Expected: 06/08/2022, Expires: 2 Start: 06-08-2022 End: 08-08-2022 Thyroxine (T4) free [Mass/volume] in Serum or Plasma [facility] Work Phone: Comment on above: Expected: 06/08/2022, Expires: 2 Start: 05-30-2022 End: 07-30-2022 Bacteria identified in Urine by Culture [facility] Work Phone: Comment on above: Expected: 05/30/2022, Expires: 2 Start: 03-14-2022 End: 05-14-2022 Bacteria identified in Urine by Culture [facility] Work Phone: Comment on above: Expected: 03/14/2022, Expires: 2 Start: 03-14-2022 End: 05-14-2022 CBC W Auto Differential panel - Blood [facility] Work Phone: Comment on above: Expected: 03/14/2022, Expires: 2 Start: 03-14-2022 End: 05-14-2022 Comprehensive metabolic 2000 panel - Serum or Plasma [facility] Work Phone: Comment on above: Expected: 03/14/2022, Expires: 2 Start: 03-14-2022 End: 05-14-2022 Lipase [Enzymatic activity/volume] in Serum or Plasma [facility] Work Phone: Comment on above: Expected: 03/14/2022, Expires: 2 Start: 03-14-2022 End: 05-14-2022 Urinalysis complete panel - Urine [facility] Work Phone: Comment on above: Expected: 03/14/2022, Expires: 2 Start: 01-29-2022 End: 03-31-2022 CBC panel - Blood by Automated count [facility] Work Phone: Comment on above: Expected: 01/29/2022, Expires: 2 Start: 01-29-2022 End: 03-31-2022 Comprehensive metabolic 2000 panel - Serum or Plasma [facility] Work Phone: Comment on above: Expected: 01/29/2022, Expires: 2 Start: 01-29-2022 End: 03-31-2022 IRON + TIBC [facility] Work Phone: Comment on above: Expected: 01/29/2022, Expires: 2 Start: 01-29-2022 End: 03-31-2022 T4 FREE/FREE THYROX [facility] Work Phone: Comment on above: Expected: 01/29/2022, Expires: 2 Start: 01-29-2022 End: 03-31-2022 Thyrotropin [Units/volume] in Serum or Plasma [facility] Work Phone: Comment on above: Expected: 01/29/2022, Expires: 2 Start: 01-29-2022 End: 03-31-2022 VITAMIN B12 BLOOD [facility] Work Phone: Comment on above: Expected: 01/29/2022, Expires: 2 Start: 01-29-2022 End: 03-31-2022 VITAMIN D 25 HYDROXY [facility] Work Phone: Comment on above: Expected: 01/29/2022, Expires: 2 Start: 01-12-2022 Adult depression screening assessment DEPRESSION SCREENING [facility] Start: 10-02-2021 ADVANCE DIRECTIVE DISCUSSION ADVANCE DIRECTIVE DISCUSSION [facility] Start: 09-22-2021 COLORECTAL CANCER SCREENING COLORECTAL CANCER SCREENING [facility] Start: 09-22-2021 FECAL OCCULT BLOOD FECAL OCCULT BLOOD [facility] Start: 09-22-2021 Screening for malignant neoplasm of colon [facility] Start: 05-12-2021 COVID-19 VACCINE (2 - Pfizer 3-dose series) COVID-19 VACCINE (2 - Pfizer 3-dose series) [facility] Start: 05-12-2021 COVID-19 VACCINE (2 - Pfizer series) COVID-19 VACCINE (2 - Pfizer series) [facility] Start: 2018 Pneumococcal Vaccine: 65+ (1 - PCV) Pneumococcal Vaccine: 65+ (1 - PCV) [facility] Start: 2018 Pneumococcal Vaccine: 65+ Years (1 of 1 - PCV) Pneumococcal Vaccine: 65+ Years (1 of 1 - PCV) [facility] Start: 2018 PNEUMOCOCCAL: 65+ (1 - PCV) PNEUMOCOCCAL: 65+ (1 - PCV) [facility] Start: 2018 PNEUMOVAX AGE 65 AND OVER WITH 5YR LOOKBACK (#1) PNEUMOVAX AGE 65 AND OVER WITH 5YR LOOKBACK (#1) [facility] Start: 2013 RSV patients and/or patients aged 60+ years (1 - 1-dose 60+ series) RSV patients and/or patients aged 60+ years (1 - 1-dose 60+ series) [facility] Start: 2013 RSV Vaccine (1 - 1-dose 60+ series) RSV Vaccine (1 - 1-dose 60+ series) [facility] Start: 2003 Pneumococcal Vaccine: 50+ (1 of 1 - PCV) Pneumococcal Vaccine: 50+ (1 of 1 - PCV) [facility] Start: 2003 SHINGRIX VACCINE (1 of 2) SHINGRIX VACCINE (1 of 2) [facility] Start: 2003 Zoster Vaccines (1 of 2) Zoster Vaccines (1 of 2) [facility] Start: 1998 COLOGUARD (FIT-DNA) COLOGUARD (FIT-DNA) [facility] Start: 1998 Colonoscopy COLONOSCOPY [facility] Start: [address] COLONOGRAPHY [facility] Start: 1998 Screening for malignant neoplasm of colon [facility] Start: 1998 SIGMOIDOSCOPY SIGMOIDOSCOPY [facility] Start: 1971 Hepatitis C screening Hepatitis C Screening [facility] Start: 1953 Lipid panel Lipid Panel [facility] Start: 1953 Medicare Annual Wellness Visit Medicare Annual Wellness Visit (AWV) [facility] Start: 1953 Screening for malignant neoplasm of colon [facility] Bacteria identified in Urine by Culture URINE CULTURE Microbiology Routine Dysuria 03/11/2022 7:26 AM EDT [facility] Work Phone: Bacteria identified in Urine by Culture URINE CULTURE Microbiology Routine Dysuria 04/01/2022 11:49 AM EDT [facility] Work Phone: Bacteria identified in Urine by Culture URINE CULTURE Microbiology Routine Burning with urination 04/21/2022 11:15 AM EDT [facility] Work Phone: Bacteria identified in Urine by Culture URINE CULTURE Microbiology Routine Urinary frequency Ordered: 05/27/2022 [facility] Work Phone: Comment on above: Ordered: 05/27/2022 Bacteria identified in Urine by Culture URINE CULTURE Microbiology Routine Dysuria Ordered: 08/18/2022 [facility] Work Phone: Comment on above: Ordered: 08/18/2022 Bacteria identified in Urine by Culture URINE CULTURE Microbiology Routine Burning with urination Ordered: 02/27/2023 [facility] Work Phone: Comment on above: Ordered: 02/27/2023 Bacteria identified in Urine by Culture URINE CULTURE Microbiology Routine Acute midline low back pain without sciatica 05/18/2023 11:54 AM [facility] Work Phone: Bacteria identified in Urine by Culture URINE CULTURE Microbiology Routine Dysuria 05/23/2023 10:20 AM [facility] Work Phone: Bacteria identified in Urine by Culture URINE CULTURE Microbiology Routine Dysuria 06/26/2023 8:13 AM [facility] Work Phone: Bacteria identified in Urine by Culture URINE CULTURE Microbiology Routine Urinary frequency Ordered: 11/15/2023 [facility] Work Phone: Comment on above: Ordered: 11/15/2023 Bacteria identified in Urine by Culture URINE CULTURE Microbiology Routine Urinary frequency 02/18/2024 2:32 PM [facility] Work Phone: Bacteria identified in Urine by Culture URINE CULTURE Microbiology Routine Dysuria 03/29/2024 1:55 PM [facility] Bacteria identified in Urine by Culture URINE CULTURE Microbiology Routine Burning with urination Ordered: 04/27/2024 [facility] Work Phone: Comment on above: Ordered: 04/27/2024 Bacteria identified in Urine by Culture URINE CULTURE Microbiology Routine Frequent UTI Dysuria 07/30/2024 11:07 AM [facility] Work Phone: Bacteria identified in Urine by Culture URINE CULTURE Microbiology Routine Acute cystitis with hematuria 09/09/2024 7:19 AM [facility] Work Phone: Bacteria identified in Urine by Culture URINE CULTURE Microbiology Routine Flank pain 10/04/2024 9:28 AM [facility] Bacteria identified in Urine by Culture BACTERIAL CULTURE, URINE Microbiology Routine Burning with urination 11/20/2024 3:56 PM [facility] Work Phone: Bacteria identified in Urine by Culture BACTERIAL CULTURE, URINE Microbiology Routine UTI symptoms 04/08/2025 10:57 AM [facility] Work Phone: BACTERIAL VAGINOSIS AMPLIFICATION BACTERIAL VAGINOSIS AMPLIFICATION Lab Routine Pelvic pain 03/06/2023 11:35 AM [facility] Work Phone: BACTERIAL VAGINOSIS NAAT BACTERI AL VAGINOSIS NAAT Lab Routine Burning with urination 11/20/2024 3:56 PM [facility] End: 05-22-2025 BD DXA TRABECULAR BONE SCORE (TBS) BD DXA TRABECULAR BONE SCORE (TBS) Radiology Routine Osteoporosis without current pathological fracture, unspecified osteoporosis type 1 Occurrences starting 04/22/2024 until 05/22/2025 [facility] Comment on above: 1 Occurrences starting 04/22/2024 until 05/22/2025 BD DXA TRABECULAR EMELI NE SCORE (TBS) BD DXA TRABECULAR BONE SCORE (TBS) Radiology Routine Osteoporosis without current pathological fracture, unspecified osteoporosis type 06/13/2024 9:19 AM T [facility] BLADDER SCAN BLADDER SCAN Pro cedures Routine Ordered: 01/19/2022 [facility] Work Phone: Comment on above: Ordered: 01/19/2022 KOREY / TRICHOMONA S AMPLIFICATION KOREY / TRICHOMONAS AMPLIFICATION Microbiology Routine Pelvic pain [facility] KOREY/TRICHOMONAS NAAT KOREY /TRICHOMONAS NAAT Lab Routine Burning with urination 11/20/2024 3:56 PM EST [facility] Chlamydia trachomatis+Neisseria gonorrhoeae DNA [Presence] in Unspecified specimen by ELMER with probe detection GONORRHEA/CHLAMYDIA NAAT Lab Routine Burning with urination 11/20/2024 3:56 PM EST [facility] End: 01-27-2024 COLONOSCOPY DIAGNOSTIC COLONOSCOPY DIAGNOSTIC Endoscopy Routine RUQ pain GERD without esophagitis Screening for colon cancer 1 Occurrences starting 01/26/2023 until 01/27/2024 [facility] Work Phone: Comment on above: 1 Occurrences starting 01/26/2023 until 01/27/2024 COVID & INFLUENZA A/ B & RSV NAAT, ROUTINE COVID & INFLUENZA A/B & RSV NAAT, ROUTINE Microbiology Routine Sinus pressure Ordered: 09/01/2023 [facility] Work Phone: Comment on above: Ordered: 09/01/2023 COVID & INFLUENZA A/ B & RSV NAAT, ROUTINE COVID & INFLUENZA A/B & RSV NAAT, ROUTINE Microbiology Routine URI, acute Ordered: 11/24/2023 [facility] Work Phone: Comment on above: Ordered: 11/24/2023 COVID & INFLUENZA A/ B & RSV PCR, ROUTINE COVID & INFLUENZA A/B & RSV PCR, ROUTINE Microbiology Routine URI, acute Ordered: 09/02/2024 [facility] Work Phone: Comment on above: Ordered: 09/02/2024 COVID & INFLUENZA A/ B & RSV PCR, ROUTINE COVID & INFLUENZA A/B & RSV PCR, ROUTINE Microbiology Routine URI, acute 12/27/2024 3:36 PM EDT [facility] Work Phone: End: 06-19-2025 CT Abdomen and Pelvis WO contrast CT ABD/PEL WO IVCON Radiology Routine Biliary cyst 1 Occurrences starting 05/20/2024 until 06/19/2025 [facility] Work Phone: Comment on above: 1 Occurrences starting 05/20/2024 until 06/19/2025 End: 03-07-2026 CT Abdomen and Pelvis WO contrast CT ABD/PEL WO IVCON Radiology Routine Cyst and pseudocyst of pancreas (HCC) 1 Occurrences starting 02/05/2025 until 03/07/2026 [facility] Work Phone: Comment on above: 1 Occurrences starting 02/05/2025 until 03/07/2026 End: 08-28-2025 CT Chest WO contrast CT CHEST WO IVCON Radiology Routine Solitary lung nodule Lung nodules 1 Occurrences starting 07/29/2024 until 08/28/2025 [facility] Work Phone: Comment on above: 1 Occurrences starting 07/29/2024 until 08/28/2025 CT Chest WO contrast CT CHEST WO IVCON Radiology Routine Solitary lung nodule Lung nodules 08/16/2024 9:40 AM EST [facility] Work Phone: End: 04-21-2023 Ct thorax w/o contrast material CT CHEST WO IVCON Radiology Routine Pericardial effusion 1 Occurrences starting 03/22/2022 until 04/21/2023 [facility] Work Phone: Comment on above: 1 Occurrences starting 03/22/2022 until 04/21/2023 Ct thorax w/o contra st material CT CHEST WO IVCON Radiology Routine Pericardial effusion 04/06/2022 3:58 PM EDT [facility] Work Phone: Cystourethroscopy [email or web address] Procedures Routine Senile (atrophic) vaginitis Urine retention Ordered: 01/19/2022 [facility] Work Phone: Comment on above: Ordered: 01/19/2022 DBT Breast - bilater al screening TROY SCREENING [place] Radiology Routine Encounter for screening mammogram for breast cancer 05/02/2025 8:18 AM EDT [facility] Work Phone: End: 11-09-2023 Diagnostic mammography computer-aided detcj bi TROY DIAGNOSTIC BILAT Radiology Routine Abnormal mammogram 1 Occurrences starting 10/10/2022 until 11/09/2023 [facility] Work Phone: Comment on above: 1 Occurrences starting 10/10/2022 until 11/09/2023 End: 05-22-2025 DXA Skeletal system.axial Views for bone density DXA-AXIAL SKELETON Radiology Routine Osteoporosis without current pathological fracture, unspecified osteoporosis type 1 Occurrences starting 04/22/2024 until 05/22/2025 [facility] Work Phone: Comment on above: 1 Occurrences starting 04/22/2024 until 05/22/2025 DXA Skeletal system. axial Views for bone density DXA-AXIAL SKELETON Radiology Routine Osteoporosis without current pathological fracture, unspecified osteoporosis type 06/13/2024 9:19 AM EDT [facility] Work Phone: End: 03-22-2023 Echocardiography ECHO Cardiology Routine Pericardial effusion 1 Occurrences starting 03/22/2022 until 03/22/2023 [facility] Work Phone: Comment on above: 1 Occurrences starting 03/22/2022 until 03/22/2023 End: 11-05-2023 Echocardiography ECHO Cardiology Routine Pericardial effusion 1 Occurrences starting 11/05/2022 until 11/05/2023 [facility] Work Phone: Comment on above: 1 Occurrences starting 11/05/2022 until 11/05/2023 End: 08-21-2024 Echocardiography ECHO Cardiology Routine Pericardial effusion 1 Occurrences starting 08/21/2023 until 08/21/2024 [facility] Work Phone: Comment on above: 1 Occurrences starting 08/21/2023 until 08/21/2024 End: 03-14-2023 EGD DIAGNOSTIC EGD DIAGNOSTIC Endoscopy Routine Epigastric abdominal pain 1 Occurrences starting 03/14/2022 until 03/14/2023 [facility] Work Phone: Comment on above: 1 Occurrences starting 03/14/2022 until 03/14/2023 End: 01-27-2024 EGD DIAGNOSTIC EGD DIAGNOSTIC Endoscopy Routine RUQ pain GERD without esophagitis Screening for colon cancer 1 Occurrences starting 01/26/2023 until 01/27/2024 [facility] Work Phone: Comment on above: 1 Occurrences starting 01/26/2023 until 01/27/2024 End: 08-05-2025 EGD DIAGNOSTIC EGD DIAGNOSTIC Endoscopy Routine Gastroesophageal reflux disease without esophagitis 1 Occurrences starting 08/05/2024 until 08/05/2025 [facility] Work Phone: Comment on above: 1 Occurrences starting 08/05/2024 until 08/05/2025 Endometrial bx w/wo endocervix bx w/o dilat spx ENDOMETRIAL BIOPSY Procedures Routine Thickened endometrium Ordered: 01/03/2024 [facility] Work Phone: Comment on above: Ordered: 01/03/2024 Influenza virus A an d B RNA and SARS-CoV-2 (COVID-19) N gene panel - Respiratory specimen by ELMER with probe detection COVID WITH FLUA+B, ROUTINE Microbiology Routine Sinus congestion Body aches Ordered: 09/20/2022 [facility] Work Phone: Comment on above: Ordered: 09/20/2022 Influenza virus A an d B RNA and SARS-CoV-2 (COVID-19) N gene panel - Respiratory specimen by ELMER with probe detection COVID WITH FLUA+B, ROUTINE Microbiology Routine URI, acute Ordered: 10/10/2022 [facility] Work Phone: Comment on above: Ordered: 10/10/2022 End: 10-07-2023 TROY SCREENING TROY SCREENING Radiology Routine Encounter for screening mammogram for breast cancer 1 Occurrences starting 09/07/2022 until 10/07/2023 [facility] Work Phone: Comment on above: 1 Occurrences starting 09/07/2022 until 10/07/2023 End: 10-06-2024 TROY SCREENING TROY SCREENING Radiology Routine Screening mammogram for breast cancer 1 Occurrences starting 09/07/2023 until 10/06/2024 [facility] Work Phone: Comment on above: 1 Occurrences starting 09/07/2023 until 10/06/2024 End: 02-03-2023 Mri abdomen w/o & w/contrast material MRI PANC/ARAMIS WO/W IVCON Radiology Routine Pancreatic cyst 1 Occurrences starting 01/04/2022 until 02/03/2023 [facility] Work Phone: Comment on above: 1 Occurrences starting 01/04/2022 until 02/03/2023 End: 12-25-2023 Mri abdomen w/o & w/contrast material MRI PANC/ARAMIS WO/W IVCON Radiology Routine Biliary cyst 1 Occurrences starting 11/25/2022 until 12/25/2023 [facility] Work Phone: Comment on above: 1 Occurrences starting 11/25/2022 until 12/25/2023 Patient referral [place] [facility] Work Phone: End: 10-09-2024 Radex spine thoracic 2 views XR THORACIC LIMITED 2V AP/LAT Radiology Routine Upper back pain 1 Occurrences starting 09/10/2023 until 10/09/2024 [facility] Work Phone: Comment on above: 1 Occurrences starting 09/10/2023 until 10/09/2024 Radex spine thoracic 2 views XR THORACIC LIMITED 2V AP/LAT Radiology Routine Upper back pain 09/11/2023 8:24 AM EST [facility] Work Phone: End: 12-05-2023 Radiolog exam mandible compl minimum 4 views XR MANDIBLE 4V PA/LINDA/BOTH OBL Radiology Routine Pain in lower jaw 1 Occurrences starting 11/05/2022 until 12/05/2023 [facility] Work Phone: Comment on above: 1 Occurrences starting 11/05/2022 until 12/05/2023 Radiolog exam mandib le compl minimum 4 views XR MANDIBLE 4V PA/LINDA/BOTH OBL Radiology Routine Pain in lower jaw 11/05/2022 12:03 PM EST [facility] Work Phone: Removal impacted cer umen irrigation/lvg unilat AMBULATORY EAR LAVAGE/IRRIGATION Procedures Routine Impacted cerumen of right ear Ordered: 10/30/2024 [facility] Work Phone: Comment on above: Ordered: 10/30/2024 SARS-CoV-2 (COVID-19 ) RNA [Presence] in Respiratory specimen by ELMER with probe detection 2019 CORONAVIRUS Microbiology Routine Sinus congestion Ordered: 03/03/2022 [facility] Work Phone: Comment on above: Ordered: 03/03/2022 SARS-CoV-2 (COVID-19 ) RNA [Presence] in Respiratory specimen by ELMER with probe detection COVID NAAT, ROUTINE Microbiology Routine Viral URI Ordered: 06/07/2023 [facility] Work Phone: Comment on above: Ordered: 06/07/2023 End: 03-11-2023 Screening colonoscopy COLONOSCOPY SCREENING Endoscopy Routine Screening for colon cancer 1 Occurrences starting 03/11/2022 until 03/11/2023 [facility] Work Phone: Comment on above: 1 Occurrences starting 03/11/2022 until 03/11/2023 UA DIP B/O UA DIP B/O Lab R outine Lower abdominal pain Ordered: 02/03/2025 [facility] Work Phone: Comment on above: Ordered: 02/03/2025 UA DIP, URINE (POC) UA DIP, URIN E (POC) Lab Routine Right lower quadrant abdominal pain Recurrent UTI (urinary tract infection) Ordered: 02/26/2022 [facility] Work Phone: Comment on above: Ordered: 02/26/2022 UA DIP, URINE (POC) UA DIP, URIN E (POC) Lab Routine Burning with urination Ordered: 04/21/2022 [facility] Work Phone: Comment on above: Ordered: 04/21/2022 UA DIP, URINE (POC) UA DIP, URIN E (POC) Lab Routine Urinary frequency Ordered: 05/27/2022 [facility] Work Phone: Comment on above: Ordered: 05/27/2022 UA DIP, URINE (POC) UA DIP, URIN E (POC) Lab Routine Ordered: 09/07/2022 [facility] Work Phone: Comment on above: Ordered: 09/07/2022 UA DIP, URINE (POC) UA DIP, URIN E (POC) Lab Routine Chronic kidney disease, stage 3a (HCC) Ordered: 12/14/2023 [facility] Work Phone: Comment on above: Ordered: 12/14/2023 Urinalysis complete panel - Urine URINALYSIS, WITH MICROSCOPIC Lab Routine Acute midline low back pain without sciatica 05/18/2023 11:54 AM EDT [facility] Work Phone: Urinalysis complete panel - Urine URINALYSIS, WITH MICROSCOPIC Lab Routine Dysuria 01/16/2024 8:43 AM EDT [facility] Work Phone: Urinalysis complete panel - Urine URINALYSIS, WITH MICROSCOPIC Lab Routine Dysuria 03/29/2024 1:55 PM EDT [facility] Work Phone: Urinalysis complete panel - Urine URINALYSIS, WITH MICROSCOPIC Lab Routine Acute cystitis with hematuria 09/09/2024 7:19 AM EST [facility] End: 02-15-2024 US ABD RIGHT UPPER QUADRANT US ABD RIGHT UPPER QUADRANT Radiology Routine RUQ pain 1 Occurrences starting 01/16/2023 until 02/15/2024 [facility] Work Phone: Comment on above: 1 Occurrences starting 01/16/2023 until 02/15/2024 End: 04-25-2025 US Breast - left limited US BREAST LTD LEFT Radiology Routine Breast pain 1 Occurrences starting 03/26/2024 until 04/25/2025 [facility] Comment on above: 1 Occurrences starting 03/26/2024 until 04/25/2025 End: 11-09-2023 Us breast uni real time with image limited [facility] Work Phone: Comment on above: 1 Occurrences starting 10/10/2022 until 11/09/2023 End: 01-11-2025 US Pelvis limited US FEMALE PELVIS TRANSABD LTD Radiology STAT Pelvic pain Thickened endometrium Chronic kidney disease, stage 3a (HCC) 1 Occurrences starting 12/13/2023 until 01/11/2025 [facility] Work Phone: Comment on above: 1 Occurrences starting 12/13/2023 until 01/11/2025 End: 01-11-2025 US Pelvis transvaginal US FEMALE PELVIS TRANSVAG Radiology STAT Pelvic pain Thickened endometrium Chronic kidney disease, stage 3a (HCC) 1 Occurrences starting 12/13/2023 until 01/11/2025 [facility] Work Phone: Comment on above: 1 Occurrences starting 12/13/2023 until 01/11/2025 End: 07-08-2023 Us soft tissue head & neck real time imge docm US THYROID/PARATHYROID Radiology Routine Thyroid nodule 1 Occurrences starting 06/08/2022 until 07/08/2023 [facility] Work Phone: Comment on above: 1 Occurrences starting 06/08/2022 until 07/08/2023 Us soft tissue head & neck real time imge docm US THYROID/PARATHYROID Radiology Routine Thyroid nodule 06/08/2022 2:03 PM EDT [facility] Work Phone: End: 07-17-2025 US Thyroid gland US THYROID/PARATHYROID Radiology Routine Thyroid nodule 1 Occurrences starting 06/17/2024 until 07/17/2025 [facility] Work Phone: Comment on above: 1 Occurrences starting 06/17/2024 until 07/17/2025 US Thyroid gland US THYROID/PARA THYROID Radiology Routine Thyroid nodule 07/04/2024 9:51 AM EDT [facility] Work Phone: End: 04-04-2024 Us transvaginal US FEMALE PELVIS TRANSVAG Radiology Routine Pelvic pain 1 Occurrences starting 03/06/2023 until 04/04/2024 [facility] Work Phone: Comment on above: 1 Occurrences starting 03/06/2023 until 04/04/2024 End: 10-07-2023 XR RIBS BILATERAL/CHEST 4V XR RIBS BILATERAL/CHEST 4V Radiology Routine Rib pain 1 Occurrences starting 09/07/2022 until 10/07/2023 [facility] Work Phone: Comment on above: 1 Occurrences starting 09/07/2022 until 10/07/2023 XR RIBS BILATERAL/CH EST 4V XR RIBS BILATERAL/CHEST 4V Radiology Routine Rib pain 09/07/2022 12:21 PM EST [facility] Work Phone: End: 10-09-2024 XR RIBS BILATERAL/CHEST 4V XR RIBS BILATERAL/CHEST 4V Radiology Routine Rib pain 1 Occurrences starting 09/10/2023 until 10/09/2024 [facility] Work Phone: Comment on above: 1 Occurrences starting 09/10/2023 until 10/09/2024 [facility] [facility] Immunizations Immunization Date Immunization Notes Care Provider Fa cili 10-13-2021 tetanus toxoid, redu yaya diphtheria toxoid, and acellular pertussis vaccine, adsorbed Bridget De Luna MD Work Phone: [facility] 04-21-2021 COVID-19 vaccine, ag e 12+ yr ([employer] - [facility]) Bridget De Luna MD Work Phone: [facility] Payers Date Payer Category Payer Medicare (Managed Care) 1.2. [id number] 2022 Medicaid [id number] 2022 Medicaid [id number] 2022 Medicare [id number] 2018 Medicare [id number] 2018 Medicare [id number] 1953 Unknown [id number] 2.16. [id number] 1953 Unknown [id number] 2.16. [id number] 1953 Unknown [id number] 2.16. [id number] 1953 Unknown [id number] 2.16.8 [id number] 1953 Unknown [id number] 2.16.8 40.1.908031.3.579.2.651 1953 Unknown [id number] 2.16.8 40.1.303494.3.579.2.651 1953 Unknown [id number] 2.16.8 40.1.455644.3.579.2.651 1953 Unknown [id number] 2.16.8 40.1.678396.3.579.2.651 1953 Unknown [id number] 2.16.8 40.1.965413.3.579.2.651 1953 Unknown [id number] 2.16.8 40.1.142124.3.579.2.651 1953 Unknown [id number] 2.16.8 40.1.112138.3.579.2.651 1953 Unknown [id number] 2.16.8 40.1.656107.3.579.2.651 Unknown [id number] 2.16.8 40.1.328611.3.579.2.528 Unknown [id number] 2.16.8 40.1.891163.3.579.2.528 Unknown [id number] 2.16.8 40.1.777777.3.579.2.528 Unknown [id number] 2.16.8 [id number] Unknown [id number] 2.16.8 [id number] Social History Date Type Detail Facility Start: 04-11-2014 End: 05-10-2022 Tobacco smoking status NHIS Ex-smoker [facility] Start: 12-23-2021 End: 06-09-2025 Alcohol intake Current non-drinker of alcohol (finding) [facility] Start: 07-23-2020 End: 09-05-2022 History SDOH Alcohol Frequency 1 [facility] Start: 07-23-2020 History SDOH Alcohol Std Drinks 98 [facility] Start: 07-23-2020 End: 09-05-2022 History SDOH Social Connections Phone 2 [facility] Start: 07-23-2020 End: 09-05-2022 History SDOH Social Connections Living 3 [facility] Start: 07-23-2020 History SDOH Financial 4 [facility] Start: 07-23-2020 Education 14 [facility] Start: 1955 Sex Assigned At Female [facility] Work Phone: Start: 12-13-2021 End: 12-23-2021 Exposure to SARS-CoV-2 (event) Yes [facility] Work Phone: Start: 11-01-2020 End: 08-18-2022 Exposure to SARS-CoV-2 (event) Not sure [facility] Work Phone: End: 10-02-1986 History of tobacco use Current smoker [facility] Start: 04-11-2014 End: 05-10-2022 Tobacco use and exposure Smokeless tobacco non-user [facility] Start: 09-05-2022 History SDOH Alcohol Std Drinks 0 [facility] Start: 09-05-2022 History SDOH Social Connections Phone 5 [facility] Start: 09-05-2022 End: 12-17-2024 History of Social function [facility] Start: 09-05-2022 End: 12-17-2024 Social connection and isolation panel [facility] Do you belong to any clubs or organizations such as hoahaoism groups, unions, fraternal or athletic groups, or school groups? No [facility] Are you now , , , , never or living with a partner? [facility] How often to you hav e a drink containing alcohol? Never [facility] Start: 09-02-2012 How many standard drinks containing alcohol do you have on a typical day? Patient does not drink [facility] Do you feel stress - tense, restless, nervous, or anxious, or unable to sleep at night because your mind is troubled all the time - these days [OSQ] To some extent [facility] (I/We) worried wheth er (my/our) food would run out before (I/we) got money to buy more. Never true [facility] Start: 12-12-2018 Gender identity Identifies as female gender (finding) [facility] Work Phone: Start: 12-12-2018 Sexual orientation Heterosexual (finding) [facility] Work Phone: Are you now , , , , never or living with a partner? Refused [facility] (I/We) worried [facility] er (my/our) food would run out before (I/we) got money to buy more. DK or Refused [facility] End: 10-02-1986 History of tobacco use Cigarette Smoker [facility] Work Phone: Start: 03-14-2024 Alcoholic beverage intake Lifetime non-drinker (finding) [facility] Work Phone: How hard is it for y ou to pay for the very basics like food, housing, medical care, and heating Not very hard [facility] Do you feel stress - tense, restless, nervous, or anxious, or unable to sleep at night because your mind is troubled all the time - these days [OSQ] Not at all [facility] Do you feel stress - tense, restless, nervous, or anxious, or unable to sleep at night because your mind is troubled all the time - these days [OSQ] Only a little [facility] Functional Status Date Assessment Result Facility 12-17-2024 Total score [AUDIT-C] -1 025 7:47 AM EDT User, [email or web address] [facility] 12-17-2024 Within the last year , have you been humiliated or emotionally abused in other ways by your partner or ex-partner? No 12/17/2024 7:47 AM EDT User, [email or web address] No [facility] 12-17-2024 Within the last year , have you been afraid of your partner or ex-partner? No 12/17/2024 7:47 AM EDT User, [email or web address] No [facility] 12-17-2024 Within the last year , have you been raped or forced to have any kind of sexual activity by your partner or ex-partner? No 12/17/2024 7:47 AM EDT User, [email or web address] No [facility] 12-17-2024 Within the last year , have you been kicked, hit, slapped, or otherwise physically hurt by your partner or ex-partner? No 12/17/2024 7:47 AM EDT User, [email or web address] No [facility] 12-17-2024 Functional status Patient [facility] 12-17-2024 How often do you hav e 6 or more drinks on 1 occasion? Never 12/17/2024 7:47 AM EDT User, Kirill Never [facility] 10-27-2014 Are you deaf, or do you have serious difficulty hearing No 10/27/2014 1:17 PM Daylin Noble LPN No [facility] 10-27-2014 Are you blind, or do you have serious difficulty seeing, even when wearing glasses No 10/27/2014 1:17 PM Daylin Noble LPN No [facility] 10-27-2014 Do you have serious difficulty walking or climbing stairs No 10/27/2014 1:17 PM Daylin Noble LPN No [facility] 10-27-2014 Do you have difficul ty dressing or bathing No 10/27/2014 1:17 PM Daylin Noble LPN No [facility] 10-27-2014 Because of a physica l, mental, or emotional condition, do you have difficulty doing errands alone such as visiting a physician's office or shopping No 10/27/2014 1:17 PM Daylin Noble LPN No [facility] Mental Status Date Assessment Result Facility 05-15-2014 Because of a physica l, mental, or emotional condition, do you have serious difficulty concentrating, remembering, or making decisions No 05/15/2014 2:19 PM EDT Romelia Parker MA No [facility] Clinical Notes 11-10-2008 to 06-09-2025 Herlinda Jett APRN.WASH WORKER - 06/09/2025 12:21 PM EDTPatient InstructionsTelephone Encounter - Daylin Manriquez RN - 05/26/2025 12:07 PM EDTPatient InstructionsPatient Instructions Note Date & Type Note Facility 06-09-2025 History of Present illness Narrative This is a 70 year old female who presents today with: The patient is a 70-year-old female presenting for evaluation of acute low back pain with associated hip pain and radicular leg pain after a twisting injury. HISTORY OF PRESENT ILLNESS: Lumbar and Hip Pain: - Onset yesterday after Terri Villar stepped into a hole while walking on the sidewalk. - Nearly hit her head on a truck but caught herself before falling. - Describes the incident as a twisting motion rather than a fall. - Pain localized to the lumbar region and hip, radiating down the leg. - Severe enough to disrupt sleep; Terri has been using heat and Tylenol with minimal relief. - Denies known trauma or injury. PAST MEDICAL HISTORY: PAST MEDICAL HISTORY Diagnosis Date Chronic kidney disease, stage III (moderate) (HCC) DDD (degenerative disc disease), cervical Dr Knapic Folate deficiency Gastritis GERD (gastroesophageal reflux disease) History of COVID-19 07/12/202106/2021 HLD (hyperlipidemia) HTN (hypertension) MTHFR mutation Osteoarthritis Pain, abdominal, RLQ Pericardial effusion (HCC) RUQ pain Thyroid nodule PAST SURGICAL HISTORY Procedure Laterality Date DELIVERY ONLY 10/02/1984 , low transverse ALLERGIES Amoxicillin, Asa [Salicylates], Codeine, Cortizone-10 [Hydrocortisone], Cymbalta [Duloxetine], Dolobid [Diflunisal], Duricef [Cefadroxil], Dye, Entex La [Phenylephrine-Guaifenesin], Erythromycin, Flu Vac 2014 (65 Up)-Mf59c(Pf), Keflex [Cephalexin], Levaquin [Levofloxacin], Macrobid [Nitrofurantoin Monohyd/M-Cryst], Mobic [Meloxicam], Morphine, Pantoprazole, Penicillins, Prednisolone, Prilosec [Omeprazole], Septra [Sulfamethoxazole-Trimethoprim], Sulfa (Sulfonamide Antibiotics), and Tetracycline MEDICATIONS Current Outpatient Medications Medication Sig atorvastatin (LIPITOR) 10 mg tablet Take 1 tablet by mouth daily at bedtime. For cholesterol. conjugated estrogens (PREMARIN) vaginal cream Use 2 g vaginally two times a week. fluticasone (FLONASE) 50 mcg/actuation nasal spray Use 2 sprays in each nostril once daily. Rinse mouth after use. famotidine (PEPCID) 20 mg tablet Take 1 tablet by mouth two times a day. lisinopril (ZESTRIL) 40 mg tablet Take 1 tablet by mouth once daily. folic acid 1 mg tablet Take 1 tablet by mouth once daily. No current facility-administered medications for this visit. FAMILY HISTORY Problem Relation Age of Onset Breast Cancer Mother 74 Heart Brother Diabetes Paternal Grandmother SOCIAL HISTORY[1] REVIEW OF SYSTEMS Constitutional: (+) insomnia Ears/Nose/Mouth/Throat: (+) nasal congestion Musculoskeletal: (+) lumbar back pain, (+) hip pain, (+) leg pain EXAM: BP 138/82 Pulse 92 Resp 16 SpO2 98% PHYSICAL EXAM: General Appearance: Well appearing, alert, in no acute distress, well-hydrated, well nourished.. Skin: Skin color, texture, turgor normal, no suspicious rashes or lesions. Head: Normocephalic, no masses, lesions, tenderness or abnormalities. Eyes: Anicteric sclera. Pupils are equally round and reactive to light. Extraocular movements are intact. . Back:no pain to palpation of vertebrae, good flexion and extension, good range of motion, reflexes are 2+ and symmetric, motor and sensory appear to be normal, + paralumbar muscle tenderness. + SLR on right. Neurologic: Gait normal. Reflexes normal and symmetric. Sensation grossly intact. = strength of LE. No foot drop. ASSESSMENT/PLAN 1. Acute right-sided low back pain with right-sided sciatica (M54.41) - Onset after twisting injury yesterday; exam reveals tenderness in lumbar region and right hip, with pain radiating down the right leg. - Continue Tylenol and heat application; advised to alternate with ice. - Start Flexeril as needed for muscle spasm; discussed sedative effects and advised caution. (She reports that she has at home). - Patient understands and agrees with plan. Discussed treatment plan and patient voices understanding. Patient's questions answered appropriately. Medications and potential side effects were discussed and patient voices understanding. Return to the office as scheduled or as needed for worsening/no improvement. Herlinda Jett APRN.WASH WORKER Recording using [employer] software for draft documentation of the visit was discussed with the patient/authorized unit support representative; all questions welcomed and answered. Patient/authorized unit support representative agreed to proceed [1] Social History Tobacco Use Smoking status: Former Smokeless tobacco: Never Vaping Use Vaping status: Never Used Substance Use Topics Alcohol use: No Drug use: No documented in this encounter [facility] 06-09-2025 Instructions Herlinda Jett APRN.CNP - 06/09/2025 10:22 AM EDT Continue the tylenol and heat/ice to the area. Try the flexeril to help with the muscle pain/spasm. Let us know if no better/worsening. documented in this encounter [facility] 05-26-2025 Telephone encounter Note Contacted pt a second time to see if pt would like to have her EGD done at [place] under [facility]. Pt stated that she wants to have her procedure done under [facility]. Education provided on the different locations and their anesthesia capabilities. Pt again confirmed that she does not want a deep sedation and that she would need to have this procedure to be done at another location other than [place]. Phone number given to reschedule. All questions answered. [facility] 05-26-2025 Miscellaneous Notes Contacted pt a second time to see if pt would like to have her EGD done at [place] under [facility]. Pt stated that she wants to have her procedure done under [facility]. Education provided on the different locations and their anesthesia capabilities. Pt again confirmed that she does not want a deep sedation and that she would need to have this procedure to be done at another location other than [place]. Phone number given to reschedule. All questions answered. Called pt inquiring about EGD scheduled at [facility]; note stated that pt does not want to have MAC anesthesia due to allergies. Asked pt to please call [facility] back to clarify to see if appt needs to be scheduled at another facility. documented in this encounter [facility] 05-26-2025 Instructions Daylin Mendenhall APRN.CNP - 05/26/2025 8:14 AM EDT - Take the 5-day course of Cipro as prescribed; finish all doses even if you start feeling better. - Start the Medrol Dosepak and follow the dosing instructions on the pack. documented in this encounter [facility] 05-26-2025 History of Present illness Narrative This is a 70 year old female who presents today with: Patient presents with: Cough: Cough since 12:30 am HISTORY OF PRESENT ILLNESS: Terri Villar is a 70 year old female. Patient presents with: Cough: Cough since 12:30 am Terri Villar is a 70-year-old female presenting with cough, congestion, and post-nasal drip. Cough and Congestion: - Cough and congestion onset last night. - Using tea and cough drops for relief. - Reports post-nasal drip and occasional headaches. - Producing white sputum. - Denies fever, chills, or chest tightness. - Experiencing rib and back pain from coughing. - Unsure if symptoms are due to a cold. - has a cough but denies being sick. - Spends time outdoors. - Has Cipro at home; reports it works well for her. - Allergic to tetracycline; pharmacy has advised against taking doxycycline. - Denies wanting Tessalon Perles, stating they worsen her cough. PAST MEDICAL HISTORY: PAST MEDICAL HISTORY Diagnosis Date Chronic kidney disease, stage III (moderate) (HCC) DDD (degenerative disc disease), cervical Dr Knapic Folate deficiency Gastritis GERD (gastroesophageal reflux disease) History of COVID-19 07/12/202106/2021 HLD (hyperlipidemia) HTN (hypertension) MTHFR mutation Osteoarthritis Pain, abdominal, RLQ Pericardial effusion (HCC) RUQ pain Thyroid nodule PAST SURGICAL HISTORY Procedure Laterality Date DELIVERY ONLY 10/02/1984 , low transverse ALLERGIES Amoxicillin, Asa [Salicylates], Codeine, Cortizone-10 [Hydrocortisone], Cymbalta [Duloxetine], Dolobid [Diflunisal], Duricef [Cefadroxil], Dye, Entex La [Phenylephrine-Guaifenesin], Erythromycin, Flu Vac 2015 (65 Up)-Mf59c(Pf), Keflex [Cephalexin], Levaquin [Levofloxacin], Macrobid [Nitrofurantoin Monohyd/M-Cryst], Mobic [Meloxicam], Morphine, Pantoprazole, Penicillins, Prednisolone, Prilosec [Omeprazole], Septra [Sulfamethoxazole-Trimethoprim], Sulfa (Sulfonamide Antibiotics), and Tetracycline MEDICATIONS Current Outpatient Medications Medication Sig ondansetron (ZOFRAN) 4 mg tablet Take 1 tablet by mouth every 8 hours as needed for nausea/vomiting for up to 7 days. conjugated estrogens (PREMARIN) vaginal cream Use 2 g vaginally two times a week. fluticasone (FLONASE) 50 mcg/actuation nasal spray Use 2 sprays in each nostril once daily. Rinse mouth after use. famotidine (PEPCID) 20 mg tablet Take 1 tablet by mouth two times a day. lisinopril (ZESTRIL) 40 mg tablet Take 1 tablet by mouth once daily. folic acid 1 mg tablet Take 1 tablet by mouth once daily. atorvastatin (LIPITOR) 10 mg tablet Take 1 tablet by mouth daily at bedtime. For cholesterol. No current facility-administered medications for this visit. FAMILY HISTORY Problem Relation Age of Onset Breast Cancer Mother 74 Heart Brother Diabetes Paternal Grandmother SOCIAL HISTORY[1] REVIEW OF SYSTEMS Constitutional: (-) fever, (-) chills Head: (+) headache Ears/Nose/Mouth/Throat: (+) postnasal drainage, (+) nasal congestion Cardiovascular: (-) chest tightness Respiratory: (+) cough, (+) white sputum Musculoskeletal: (+) rib pain, (+) back pain EXAM: BP 140/86 Pulse 79 Temp 36.3 C (97.4 F) (Left Tympanic) Wt 59.9 kg (132 lb) SpO2 98% BMI 22.66 kg/m PHYSICAL EXAM: Constitutional: (-) fever, (-) chills Head: (+) headache Ears/Nose/Mouth/Throat: (+) postnasal drainage, (+) nasal congestion Cardiovascular: (-) chest tightness Respiratory: (+) cough, (+) white sputum Musculoskeletal: (+) rib pain, (+) back pain LABS: ASSESSMENT/PLAN: 1. Mixed hyperlipidemia (E78.2) - atorvastatin renewed 2. Acute maxillary sinusitis, recurrence not specified (J01.00) - Acute maxillary sinusitis with postnasal drainage, congestion, and headache; exam notable for erythematous throat and maxillary tenderness. - Start ciprofloxacin for 5 days. (Due to multiple allergies) - Start Medrol Dosepak. - Declined Ren Guardado. Discussed treatment plan and patient voices understanding. Patient's questions answered appropriately. Medications and potential side effects were discussed and patient voices understanding. Return to the office as scheduled or as needed for worsening/no improvement. Daylin Mendenhall APRN.WILFREDO [1] Social History Tobacco Use Smoking status: Former Smokeless tobacco: Never Vaping Use Vaping status: Never Used Substance Use Topics Alcohol use: No Drug use: No documented in this encounter [facility] 05-23-2025 History of Present illness Narrative This is a 70 year old female who presents today with: Terri Villar is a 70-year-old female with a history of GERD, presenting with nausea and loose stools. HISTORY OF PRESENT ILLNESS: Nausea and Loose Stools: - Onset of symptoms began recently, suspected to be related to a stomach flu. - Nausea without emesis. - Loose stools, but not diarrhea; had three soft, formed bowel movements this morning. - Denies hematochezia. - Reports fatigue and poor sleep. - Denies fever. - Considering taking Pepto-Bismol but hesitant due to potential side effects. Took her pepcid PAST MEDICAL HISTORY: PAST MEDICAL HISTORY Diagnosis Date Chronic kidney disease, stage III (moderate) (HCC) DDD (degenerative disc disease), cervical Dr Morfin Folate deficiency Gastritis GERD (gastroesophageal reflux disease) History of COVID-19 07/12/202106/2021 HLD (hyperlipidemia) HTN (hypertension) MTHFR mutation Osteoarthritis Pain, abdominal, RLQ Pericardial effusion (HCC) RUQ pain Thyroid nodule PAST SURGICAL HISTORY Procedure Laterality Date DELIVERY ONLY 10/02/1984 , low transverse ALLERGIES Amoxicillin, Asa [Salicylates], Codeine, Cortizone-10 [Hydrocortisone], Cymbalta [Duloxetine], Dolobid [Diflunisal], Duricef [Cefadroxil], Dye, Entex La [Phenylephrine-Guaifenesin], Erythromycin, Flu Vac 2014 (65 Up)-Mf59c(Pf), Keflex [Cephalexin], Levaquin [Levofloxacin], Macrobid [Nitrofurantoin Monohyd/M-Cryst], Mobic [Meloxicam], Morphine, Pantoprazole, Penicillins, Prednisolone, Prilosec [Omeprazole], Septra [Sulfamethoxazole-Trimethoprim], Sulfa (Sulfonamide Antibiotics), and Tetracycline MEDICATIONS Current Outpatient Medications Medication Sig conjugated estrogens (PREMARIN) vaginal cream Use 2 g vaginally two times a week. fluticasone (FLONASE) 50 mcg/actuation nasal spray Use 2 sprays in each nostril once daily. Rinse mouth after use. famotidine (PEPCID) 20 mg tablet Take 1 tablet by mouth two times a day. lisinopril (ZESTRIL) 40 mg tablet Take 1 tablet by mouth once daily. folic acid 1 mg tablet Take 1 tablet by mouth once daily. atorvastatin (LIPITOR) 10 mg tablet Take 1 tablet by mouth daily at bedtime. For cholesterol. ondansetron (ZOFRAN) 4 mg tablet Take 1 tablet by mouth every 8 hours as needed for nausea/vomiting for up to 7 days. No current facility-administered medications for this visit. FAMILY HISTORY Problem Relation Age of Onset Breast Cancer Mother 74 Heart Brother Diabetes Paternal Grandmother SOCIAL HISTORY[1] REVIEW OF SYSTEMS Constitutional: (+) fatigue, (+) insomnia Gastrointestinal: (+) nausea, (+) diarrhea, (-) vomiting, (-) hematochezia Musculoskeletal: (+) arthralgia but not uncommon due to arthritis See HPI EXAM: BP 122/86 (BP Site: Left Arm, BP Position: Sitting, BP Cuff Size: Regular Adult) Pulse 89 Temp 36.7 C (98 F) Wt 60.3 kg (133 lb) SpO2 98% BMI 22.83 kg/m PHYSICAL EXAM: General Appearance: Well appearing, alert, in no acute distress, well-hydrated, well nourished.. Lungs: Lungs clear to auscultation. No wheezing, rhonchi, rales.. Heart: RRR without murmur, gallop, or rubs. No ectopy. Abdomen: Normal abdominal exam, Abdomen soft, non-tender. Bowel sounds normal. No masses, organomegaly. ASSESSMENT/PLAN 1. Nausea (R11.0) 2. Epigastric pain (R10.13) - no fever, emesis, or hematochezia. - Start Zofran for nausea. - Advised to maintain adequate hydration. - Discussed that antiemetics may cause constipation; patient advised to monitor bowel movements. - Advised that viral gastroenteritis is self-limiting and must run its course if that is what this is Follow up as needed if symptoms not improved, blood in stool, worsening pain Discussed treatment plan and patient voices understanding. Patient's questions answered appropriately. Medications and potential side effects were discussed and patient voices understanding. Return to the office as scheduled or as needed for worsening/no improvement. Mita Rivas APRN.WASH WORKER Recording using [employer] software for draft documentation of the visit was discussed with the patient/authorized unit support representative; all questions welcomed and answered. Patient/authorized unit support representative agreed to proceed [1] Social History Tobacco Use Smoking status: Former Smokeless tobacco: Never Vaping Use Vaping status: Never Used Substance Use Topics Alcohol use: No Drug use: No documented in this encounter [facility] 05-23-2025 Instructions Mita Rivas APRN.CNP - 05/23/2025 8:32 AM EDT Drink plenty of fluids Take zofran as needed for nausea, it can cause constipation so only as needed until you feel better Get rest documented in this encounter [facility] 05-22-2025 Telephone encounter Note Called pt inquiring about EGD scheduled at [facility]; note stated that pt does not want to have MAC anesthesia due to allergies. Asked pt to please call [facility] back to clarify to see if appt needs to be scheduled at another facility. [facility] 05-17-2025 History of Present illness Narrative [facility] Alberto Villar is a 70 year old female. Patient presents with: Ear Pain: R ear pain, x 2 days pain going down neck Right ear pain: Duration: started yesterday Location: right ear and jaw Character: sharp Radiation: into the jaw and neck below Aggravating: moving jaw Relieving: tried debrox drops Pain relievers: Tylenol Associated: buzz in ear Pertinent negatives: Denies nasal congestion, rhinorrhea, sinus pressure, Ear Pain Review of Systems Objective BP 138/60 Pulse 76 Temp 36.4 C (97.6 F) Resp 20 Wt 60 kg (132 lb 4.4 oz) SpO2 96% BMI 22.71 kg/m Physical Exam Constitutional: General: She is not in acute distress. HENT: Right Ear: Tympanic membrane and ear canal normal. Tenderness (Pain with palpation of the right TMJ) present. No middle ear effusion. Impacted cerumen: Small cerumen in distal canal. Tympanic membrane is not erythematous, retracted or bulging. Left Ear: Tympanic membrane and ear canal normal. Nose: No congestion. Right Sinus: No maxillary sinus tenderness or frontal sinus tenderness. Left Sinus: No maxillary sinus tenderness or frontal sinus tenderness. Mouth/Throat: Mouth: Mucous membranes are moist. Pharynx: No oropharyngeal exudate or posterior oropharyngeal erythema. Eyes: Extraocular Movements: Extraocular movements intact. Conjunctiva/sclera: Conjunctivae normal. Pupils: Pupils are equal, round, and reactive to light. Cardiovascular: Rate and Rhythm: Normal rate and regular rhythm. Heart sounds: No murmur heard. Pulmonary: Effort: No respiratory distress. Breath sounds: No wheezing, rhonchi or rales. Musculoskeletal: Cervical back: Neck supple. Lymphadenopathy: Cervical: No cervical adenopathy. Neurological: Mental Status: She is alert. {ASSESSMENT/PLAN: 1. Arthralgia of right temporomandibular joint - ICD9: 524.62, ICD10: M26.621 Comfort is reproducible with palpation of the TMJ. Reassured there are no signs of infection. Supportive care treated with as needed analgesia. Nae Gould MD Differential Diagnoses - Temporomandibular joint arthralgia is more likely for the following reason(s): suggested by H&P - Cerumen impaction is less likely for the following reason(s): Not present on exam - Otitis media or externa is less likely for the following reason(s): Not present on exam Procedures documented in this encounter [facility] 05-12-2025 History of Present illness Narrative Terri Villar is a 70-year-old female with a history of HTN, hyperlipidemia, and pancreatic cyst, presenting for a six month check up. , with additional complaints of chronic neck and back pain. HPI - No issues with current medications: folic acid, Lipitor, lisinopril, Pepcid. - Denies chest pain, dyspnea, dizziness, or lightheadedness. - Recent mammogram on 05/06 was normal. - Up to date on bone density testing. Pancreatic Cyst: - Recent CT scan on 05/05 showed a decrease in size of the pancreatic cyst. - Awaiting follow-up appointment with specialist. Thyroid Nodule: - Scheduled for follow-up thyroid ultrasound in the fall. Chronic Neck and Back Pain: - Chronic neck and back pain with associated leg weakness. - Terri has been seen by pain management. - No new symptoms or worsening of back pain. - Denies swelling. MEDICATIONS: CURRENT MEDICATIONS[1] ALLERGIES: ALLERGIES[2] PAST MEDICAL HISTORY[3] PAST SURGICAL HISTORY Procedure Laterality Date DELIVERY ONLY 10/02/1984 , low transverse FAMILY HISTORY[4] SOCIAL HISTORY[5] Reviewed current medications, allergies, past medical history, surgical history, family history and social history today. REVIEW OF SYSTEMS Cardiovascular: (-) chest pain, (-) peripheral edema Respiratory: (-) dyspnea Gastrointestinal: (-) heartburn Musculoskeletal: (+) neck pain, (+) back pain Neurological: (+) lower extremity weakness, (-) dizziness, (-) lightheadedness HEALTH MAINTENANCE: Reviewed health maintenance issues today and recommended the following in detail. There are no preventive care reminders to display for this patient. LAB REVIEWED: Labs: Tests: Imaging: - (05/06) Mammogram: Normal - (05/05) CT of the abdomen: Pancreatic lesion decreased in size - Bone density test: Normal VITALS: BP 128/80 Pulse 68 Wt 61.2 kg (135 lb) SpO2 95% BMI 23.17 kg/m Last 4 Encounter Wt Readings: Date: Wt: 05/12/2025 61.2 kg (135 lb) 05/08/2025 61.7 kg (136 lb) 05/01/2025 59.9 kg (132 lb) 04/23/2025 60.1 kg (132 lb 9.6 oz) PHYSICAL EXAMINATION: GENERAL: NAD, alert and oriented. SKIN: Unremarkable, no rash or skin lesions. HEAD: Normocephalic. NECK: Supple, no lymphadenopathy, normal thyroid, no carotid bruits. LUNGS: Clear to auscultation bilaterally, no wheezes/rhonchi/rales. HEART: Regular rate and rhythm, no murmurs. No ectopy. EXTREMITIES: Normal, no deformities, no skin discoloration, no edema. NEURO: Awake, alert and oriented x3, cranial nerves II-XII grossly intact, normal gait, no involuntary motions. ASSESSMENT AND PLAN 1. Primary hypertension (I10) - BP today 128/80. - Continue lisinopril as prescribed. 2. Mixed hyperlipidemia (E78.2) - No issues with current medications; patient reports occasional muscle tightness with Lipitor, but not persistent. - Continue Lipitor as prescribed. - Fasting lipid panel ordered. - Educated patient that statin-induced myalgias are typically persistent if related to medication. 3. GERD without esophagitis (K21.9) - No current heartburn or related symptoms. - Continue Pepcid as prescribed. 4. Chronic kidney disease, stage 3a (HCC) (N18.31) - CMP ordered. 5. Thyroid nodule (E04.1) - Follow-up thyroid ultrasound scheduled for fall. 6. DDD (degenerative disc disease), cervical (M50.30) 7. Degeneration of intervertebral disc of lumbar region, unspecified whether pain present (M51.369) - Chronic neck and back pain with intermittent leg weakness; no acute changes. - Previously evaluated by pain management. - Advised patient to notify clinic if symptoms worsen. 8. Osteoporosis without current pathological fracture, unspecified osteoporosis type (M81.0) - Bone density test up to date. 9. Pancreatic cyst (HCC) (K86.2) - CT on 05/05 showed cyst is slightly smaller. - Advised patient to follow up with specialist regarding further management. 10. Folate deficiency (E53.8) - Continue folic acid supplementation. - Fasting folate level ordered. (See patient after visit summary for additional instructions to patient) Bridget De Luna MD Recording using [employer] software for draft documentation of the visit was discussed with the patient/authorized unit support representative; all questions welcomed and answered. Patient/authorized unit support representative agreed to proceed [1] Current Outpatient Medications Medication Sig doxycycline (VIBRA-TABS) 100 mg tablet Take 1 tablet by mouth two times a day for 10 days. conjugated estrogens (PREMARIN) vaginal cream Use 2 g vaginally two times a week. fluticasone (FLONASE) 50 mcg/actuation nasal spray Use 2 sprays in each nostril once daily. Rinse mouth after use. famotidine (PEPCID) 20 mg tablet Take 1 tablet by mouth two times a day. lisinopril (ZESTRIL) 40 mg tablet Take 1 tablet by mouth once daily. folic acid 1 mg tablet Take 1 tablet by mouth once daily. atorvastatin (LIPITOR) 10 mg tablet Take 1 tablet by mouth daily at bedtime. For cholesterol. No current facility-administered medications for this visit. [2] Allergies Allergen Reactions Amoxicillin Itching Asa [Salicylates] Itching Codeine Itching Cortizone-10 [[place]* Itching Cymbalta [Duloxetin* Intolerance One pill: bruning all over Dolobid [Diflunisal] Itching Duricef [Cefadroxil] Itching Dye Shortness of Breath Ct dye. Including rash Entex La [Phenyleph* Itching Erythromycin Itching Flu Vac 2015 (65 Up* Shortness of Breath Keflex [Cephalexin] Itching Levaquin [Levofloxa* Other: See Comments itching Macrobid [Nitrofura* Other: See Comments Fast heart rate Mobic [Meloxicam] Itching Morphine Itching Pantoprazole Itching Penicillins Hives Prednisolone Other: See Comments Elevated blood pressure. Has done well with medrol dose april. Prilosec [Omeprazol* Itching Septra [Sulfamethox* Hives Sulfa (Sulfonamide * Hives Tetracycline Hives Can take doxycycline [3] Past Medical History: No date: Chronic kidney disease, stage III (moderate) (HCC) No date: DDD (degenerative disc disease), cervical Comment: Dr Morfin No date: Folate deficiency No date: Gastritis No date: GERD (gastroesophageal reflux disease) 07/12/2021: History of COVID-19 Comment: 06/2021 No date: HLD (hyperlipidemia) No date: HTN (hypertension) No date: MTHFR mutation No date: Osteoarthritis No date: Pain, abdominal, RLQ No date: Pericardial effusion (HCC) No date: RUQ pain No date: Thyroid nodule [4] Review of patient's family history indicates: Problem: Breast Cancer Relation: Mother Age of Onset: (Not Specified) Comment: 74 Problem: Heart Relation: Brother Age of Onset: (Not Specified) Problem: Diabetes Relation: Paternal Grandmother Age of Onset: (Not Specified) [5] Social History Tobacco Use Smoking status: Former Smokeless tobacco: Never Vaping Use Vaping status: Never Used Substance Use Topics Alcohol use: No Drug use: No documented in this encounter [facility] 05-12-2025 Instructions Bridget De Luna MD - 05/12/2025 9:47 AM EDT - Get fasting blood work: CBC, CMP, lipid panel, vitamin D, and folate. Fast for 12 hours beforehand (you may drink water or black coffee only). - Call the office that performed your pancreatic CT to arrange your virtual follow-up appointment. - In the fall, complete your scheduled thyroid ultrasound and chest CT scan. - Schedule a repeat bone density test in about six months. - Consider getting a pneumococcal (pneumonia) vaccine. - Arrange your shingles vaccine at a pharmacy and verify coverage with your insurance. - Continue taking folic acid, Lipitor, lisinopril, and Pepcid exactly as prescribed. - Monitor your back pain, leg weakness, chest pain, breathing difficulties, dizziness, or any increase in muscle tightness; contact the clinic if these symptoms worsen. documented in this encounter [facility] 05-05-2025 History of Present illness Narrative Radiology Service Progress Note PATIENT NAME: Terri Villar DATE OF SERVICE: May 05, 2025 TIME: 3:26 PM PATIENT IDENTITY VERIFICATION COMPLETED USING TWO (2) IDENTIFIERS: Name and Date of confirmed by patient verbally. FALL SCREENING: Has the patient had 2 falls in the last year or 1 fall with injury or currently using an Ambulatory Assistive Device (Walker, Cane, Wheelchair, Crutches, etc.)? No PATIENT GENDER DATA: Assigned female at . status: : No status: NO. PATIENT RELEVANT IMPLANT DATA REVIEWED: Yes PATIENT PRESENTS WITH AN IMPLANTABLE OR ATTACHED AUDIO PRODUCTION MANAGER: No RADIOLOGY DEPARTMENT: CT; Exam(s) Completed: Abdomen/Pelvis PERIPHERAL IV DATA: Not applicable SIGNED BY: RT Anna(Emma) May 05, 2025 3:26 PM documented in this encounter [facility] 05-02-2025 History of Present illness Narrative Radiology Service Progress Note PATIENT NAME: Terri Villar DATE OF SERVICE: May 02, 2025 TIME: 8:33 AM PATIENT IDENTITY VERIFICATION COMPLETED USING TWO (2) IDENTIFIERS: Name and Date of confirmed by patient verbally. FALL SCREENING: Has the patient had 2 falls in the last year or 1 fall with injury or currently using an Ambulatory Assistive Device (Walker, Cane, Wheelchair, Crutches, etc.)? No PATIENT GENDER DATA: Assigned female at . status: : No status: NO. PATIENT RELEVANT IMPLANT DATA REVIEWED: Not Applicable PATIENT PRESENTS WITH AN IMPLANTABLE OR ATTACHED AUDIO PRODUCTION MANAGER: No RADIOLOGY DEPARTMENT: Mammography PERIPHERAL IV DATA: Not applicable SIGNED BY: Karina Castillo May 02, 2025 8:33 AM documented in this encounter [facility] 05-01-2025 History of Present illness Narrative Radiology Service Progress Note PATIENT NAME: Terri Villar DATE OF SERVICE: May 01, 2025 TIME: 12:56 PM PATIENT IDENTITY VERIFICATION COMPLETED USING TWO (2) IDENTIFIERS: Name and Date of confirmed by patient verbally. FALL SCREENING: Has the patient had 2 falls in the last year or 1 fall with injury or currently using an Ambulatory Assistive Device (Walker, Cane, Wheelchair, Crutches, etc.)? No PATIENT GENDER DATA: Assigned female at . status: : No status: NO. PATIENT RELEVANT IMPLANT DATA REVIEWED: Yes PATIENT PRESENTS WITH AN IMPLANTABLE OR ATTACHED AUDIO PRODUCTION MANAGER: No RADIOLOGY DEPARTMENT: General X-ray: Exam(s) Completed: Lower Extremity X-Ray(s): Knee, AP / Lat / Tunne / Merchant Bilateral PERIPHERAL IV DATA: Not applicable SIGNED BY: Elisa Patton, RT(R) May 01, 2025 12:56 PM documented in this encounter [facility] 05-01-2025 Instructions Daylin Mendenhall APRN.CNP - 05/01/2025 12:46 PM EDT - Apply the diclofenac gel sample to both knees as directed for pain relief. - Continue taking Tylenol as needed for discomfort. - Have standing X-rays taken of both knees; results may take a couple of days to come back. documented in this encounter [facility] 05-01-2025 History of Present illness Narrative This is a 70 year old female who presents today with: Patient presents with: Leg Pain HISTORY OF PRESENT ILLNESS: Terri Villar is a 70 year old female. Patient presents with: Leg Pain Terri Villar is a 70-year-old female presenting for bilateral knee pain and lower leg pain. Bilateral Knee and Lower Leg Pain: - Onset of pain a few weeks ago after hitting knees on a car. - Terri describes pain as nagging and burning, localized from the knees down, primarily on the anterior aspect of the legs. - Reports throbbing pain in the knees, with more severe pain on the right side. - Noted bruising on the right knee. - Experiences some instability in the knees. - Taking Tylenol for pain management. - Recently used aspirin with lidocaine for pain relief to aid sleep. - Denies pain with knee flexion and extension. PAST MEDICAL HISTORY: PAST MEDICAL HISTORY Diagnosis Date Chronic kidney disease, stage III (moderate) (HCC) DDD (degenerative disc disease), cervical Dr Knapic Folate deficiency Gastritis GERD (gastroesophageal reflux disease) History of COVID-19 07/12/202106/2021 HLD (hyperlipidemia) HTN (hypertension) MTHFR mutation Osteoarthritis Pain, abdominal, RLQ Pericardial effusion (HCC) RUQ pain Thyroid nodule PAST SURGICAL HISTORY Procedure Laterality Date DELIVERY ONLY 10/02/1984 , low transverse ALLERGIES Amoxicillin, Asa [Salicylates], Codeine, Cortizone-10 [Hydrocortisone], Cymbalta [Duloxetine], Dolobid [Diflunisal], Duricef [Cefadroxil], Dye, Entex La [Phenylephrine-Guaifenesin], Erythromycin, Flu Vac 2014 (65 Up)-Mf59c(Pf), Keflex [Cephalexin], Levaquin [Levofloxacin], Macrobid [Nitrofurantoin Monohyd/M-Cryst], Mobic [Meloxicam], Morphine, Pantoprazole, Penicillins, Prednisolone, Prilosec [Omeprazole], Septra [Sulfamethoxazole-Trimethoprim], Sulfa (Sulfonamide Antibiotics), and Tetracycline MEDICATIONS Current Outpatient Medications Medication Sig conjugated estrogens (PREMARIN) vaginal cream Use 2 g vaginally two times a week. fluticasone (FLONASE) 50 mcg/actuation nasal spray Use 2 sprays in each nostril once daily. Rinse mouth after use. famotidine (PEPCID) 20 mg tablet Take 1 tablet by mouth two times a day. lisinopril (ZESTRIL) 40 mg tablet Take 1 tablet by mouth once daily. folic acid 1 mg tablet Take 1 tablet by mouth once daily. atorvastatin (LIPITOR) 10 mg tablet Take 1 tablet by mouth daily at bedtime. For cholesterol. sertraline (ZOLOFT) 25 mg tablet Take 1 tablet by mouth daily at bedtime. No current facility-administered medications for this visit. FAMILY HISTORY Problem Relation Age of Onset Breast Cancer Mother 74 Heart Brother Diabetes Paternal Grandmother Social History Tobacco Use Smoking status: Former Smokeless tobacco: Never Vaping Use Vaping status: Never Used Substance Use Topics Alcohol use: No Drug use: No REVIEW OF SYSTEMS Musculoskeletal: (+) bilateral knee pain, (+) burning pain from knees down, (+) bilateral knee swelling, (+) knee instability EXAM: BP 122/76 Pulse 82 Wt 59.9 kg (132 lb) SpO2 97% BMI 22.66 kg/m PHYSICAL EXAM: GENERAL: NAD, alert and oriented. SKIN: Unremarkable, no rash or skin lesions. EXTREMITIES: Mild swelling medial and medial -distal to patella fluid pockets noted in both knees. No pain with extension or flexion. Some crepitus right knee. No pain either side with flexion, extension, internal or external rotation. Negative anterior and posterior drawer test. No heat noted or redness. NEURO: Awake, alert and oriented x3, cranial nerves II-XII grossly intact, normal gait, no involuntary motions. LABS: X-rays of knees today ASSESSMENT/PLAN: 1. Pain in both knees, unspecified chronicity (M25.561) - Bilateral knee pain and burning sensation from knees down, onset after trauma to both knees (one injured a few weeks ago, the other last week); exam reveals swelling and fluid pockets in both knees. - Differential includes arthritis versus possible fracture. - Ordered standing X-rays of both knees. - Provided sample of diclofenac gel for topical use. - Advised to continue Tylenol for pain management. Discussed treatment plan and patient voices understanding. Patient's questions answered appropriately. Medications and potential side effects were discussed and patient voices understanding. Return to the office as scheduled or as needed for worsening/no improvement. Daylin Mendenhall APRN.WASH WORKER documented in this encounter [facility] 04-28-2025 Telephone encounter Note Patient notified. [facility] 04-28-2025 Miscellaneous Notes Patient notified. Call if symptoms recur. Contacted patient for further triage of message received on 04/25/25, as copied: Terri Villar to [facility] Clinical Pool (supporting Bridget De Luna MD) 04/25/25 1:[address] De Luna the other day I went to [facility] there at the clinic cause my legs get weak on me she wants me to go to the ER and get checked by a Dr there and get a cat scan done she thinks I have spinal cord empration what do you think I think it is from my osteoarthritis Patient states she feels better today. Reports today my legs don't bother me. Continues chronic lower back discomfort but states it is not severe. No numbness or tingling into her legs or saddle area. Urinating well. Pt believes it is arthritis that is causing her intermittent sx's and continues to decline ER at this time. Xrays were completed on 03/24/25 with no acute findings. Pt has follow up appt with Dr. De Luna on 05/13/25. Is it ok for pt to wait until then or does PCP wish to place further imaging orders for pt to complete soon? Please call patient with reply. Joanne Fox RN documented in this encounter [facility] 04-28-2025 Telephone encounter Note Call if symptoms recur. [facility] 04-28-2025 Telephone encounter Note Contacted patient for further triage of message received on 04/25/25, as copied: Terri Villar to [facility] Clinical Pool (supporting Bridget De Luna MD) 04/25/25 1:[address] De Luna the other day I went to [facility] there at the clinic cause my legs get weak on me she wants me to go to the ER and get checked by a there and get a cat scan done she thinks I have spinal cord empration what do you think I think it is from my osteoarthritis Patient states she feels better today. Reports today my legs don't bother me. Continues chronic lower back discomfort but states it is not severe. No numbness or tingling into her legs or saddle area. Urinating well. Pt believes it is arthritis that is causing her intermittent sx's and continues to decline ER at this time. Xrays were completed on 03/24/25 with no acute findings. Pt has follow up appt with Dr. De Luna on 05/13/25. Is it ok for pt to wait until then or does PCP wish to place further imaging orders for pt to complete soon? Please call patient with reply. Joanne Fox RN [facility] 04-24-2025 Telephone encounter Note I called Terri. Confirmed name and . She sent a message via [employer] asking why we could not perform workup for possible spinal cord compression as outpatient. Discussed again that this is an urgent evaluation, and performing it as an outpatient would cause a delay in diagnosis and care which could result in permanent disability or if this is indeed what is the cause of her symptoms. She stated the nurse at the ED door would not let me in. I stated we called the ED and they did not have a record of her stay-which I was then going to follow by stating she could try to attend a different ED- but she interjected with stating the nurse wouldn't let me in. I don't like being called a liar. She then hung up the phone. I had intended to also answer her question regarding why these scans cannot be ordered as an outpatient, including that some scans such as MRI cannot be ordered promptly as outpatient, but through hanging up on me I was not able to address these questions for her. [facility] Work Phone: 04-24-2025 Miscellaneous Notes I called Terri. Confirmed name and . She sent a message via [employer] asking why we could not perform workup for possible spinal cord compression as outpatient. Discussed again that this is an urgent evaluation, and performing it as an outpatient would cause a delay in diagnosis and care which could result in permanent disability or if this is indeed what is the cause of her symptoms. She stated the nurse at the ED door would not let me in. I stated we called the ED and they did not have a record of her stay-which I was then going to follow by stating she could try to attend a different ED- but she interjected with stating the nurse wouldn't let me in. I don't like being called a liar. She then hung up the phone. I had intended to also answer her question regarding why these scans cannot be ordered as an outpatient, including that some scans such as MRI cannot be ordered promptly as outpatient, but through hanging up on me I was not able to address these questions for her. documented in this encounter [facility] 04-23-2025 Instructions Rna Luna MD - 04/23/2025 8:58 AM EDT Please attend the ED for concern of possible spinal cord or spine abnormalities. Please return for follow up afterwards depending on what they find and whether you need inpatient care. documented in this encounter [facility] 04-23-2025 History of Present illness Narrative Images from the original note were not included. Family Medicine OUTPATIENT VISIT April 23, 2025 CC: Acute back pain HPI: 70 year old female patient with a history of HTN on lisinopril anxiety on zoloft HLD on atorvastatin Seasonal allergies on flonase GERD on pepcid CKD 3a Osteoporosis Last T score -3-3 06/25 18% 10 yr fracture risk OA Degenerative disk disease in cervical and lumbar spine Chronic L5 pars defects with grade 1/2 anterolisthesis of L5 on S1. XR lumbar on 03/24/25 There are 5 nonrib-bearing lumbar vertebral bodies. Mild levocurvature of the lumbar spine with apex at L2. Preservation of vertebral body height. Moderate disc space narrowing with endplate sclerosis and marginal osteophyte formation at L2/L3. Moderate disc space narrowing with endplate sclerosis and marginal osteophyte formation at L5/S1. Bilateral L5 pars defects with grade 1/2 anterolisthesis of L5 on S1. Facet joint arthrosis at L4/L5 and L5/S1. Presents with Four days ago began to have back pain in mid lumbar/thoracic region, radiates along both sides of rib cage to front of chest and also radiates down both legs (entire legs). Began to radiate down both legs at the same, not occurring in one leg prior to the other. Onset of pain was sudden. Recalls she was walking down her steps, without fall or trauma, when suddenly back began to be painful. Pain in legs is waxing and waning. Thinks sitting provokes radiation down her legs. Pain is 9/10. Quality is aching in back, though in legs is a tingling and stinging pain. Heat is relieving the pain. Tylenol is helping pain. Taking 500mg daily. Not taking NSAIDS due to CKD. Endorsing numbness in lower back on right. Denies LE paresthesia. Leg weakness also began four days ago. Both legs equally. Sensation is coming and going. Has not had falls but did hit her knee and injure it due to weakness and poor coordination. Seen for diarrhea on 04/14 but this has actually resolved and stool is back to baseline without incontinence. Risk factors for acute back pain with weakness or paresthesias: Fever: None Urinary retention: None Bowel incontinence: None. Saddle anesthesia: none Trama: none Night sweats: none Weight loss: Immunocompromised: none HIV: none On AC: NOne Hx of malignancy: none Weight loss none Age over 60: yes Pain waking from sleep: yes Pain unchanged in spite of position changes: No Severe pain: yes Leg weakness: yes History of IVDU: no Review of Systems PAIN ASSESSMENT: Negative for pain, history of chronic pain, or current treatment for a chronic pain condition except as above GENERAL: No weight loss, or fevers HEENT: Negative for frequent or significant headaches RESPIRATORY: Negative for cough, wheezing, shortness of breath CARDIOVASCULAR: Negative for chest pain, palpitations, PND or orthopnea GI: No nausea, vomiting, or diarrhea or abdominal pain. No HI bleeding or melana: except baseline GERD symptoms unchanged from usual : No history of dysuria, frequency, urgency, or change in urine appearance NEURO: as above Health maintenance: Shingrix Vaccine(1 of 2) Never done Pneumococcal Vaccine: 50+(1 of 1 - PCV) Never done Mammogram Screening due on 10/18/2024 Allergies: ALLERGIES Allergen Reactions Amoxicillin Itching Asa [Salicylates] Itching Codeine Itching Cortizone-10 [[place]* Itching Cymbalta [Duloxetin* Intolerance One pill: bruning all over Dolobid [Diflunisal] Itching Duricef [Cefadroxil] Itching Dye Shortness of Breath Ct dye. Including rash Entex La [Phenyleph* Itching Erythromycin Itching Flu Vac 2015 (65 Up* Shortness of Breath Keflex [Cephalexin] Itching Levaquin [Levofloxa* Other: See Comments itching Macrobid [Nitrofura* Other: See Comments Fast heart rate Mobic [Meloxicam] Itching Morphine Itching Pantoprazole Itching Penicillins Hives Prednisolone Other: See Comments Elevated blood pressure. Has done well with medrol dose april. Prilosec [Omeprazol* Itching Septra [Sulfamethox* Hives Sulfa (Sulfonamide * Hives Tetracycline Hives Can take doxycycline Medications: conjugated estrogens (PREMARIN) vaginal cream Use 2 g vaginally two times a week. sertraline (ZOLOFT) 25 mg tablet Take 1 tablet by mouth daily at bedtime. fluticasone (FLONASE) 50 mcg/actuation nasal spray Use 2 sprays in each nostril once daily. Rinse mouth after use. famotidine (PEPCID) 20 mg tablet Take 1 tablet by mouth two times a day. lisinopril (ZESTRIL) 40 mg tablet Take 1 tablet by mouth once daily. folic acid 1 mg tablet Take 1 tablet by mouth once daily. atorvastatin (LIPITOR) 10 mg tablet Take 1 tablet by mouth daily at bedtime. For cholesterol. Past Medical History: PAST MEDICAL HISTORY Diagnosis Date Chronic kidney disease, stage III (moderate) (HCC) DDD (degenerative disc disease), cervical Dr Navjot Folate deficiency Gastritis GERD (gastroesophageal reflux disease) History of COVID-19 07/12/202106/2021 HLD (hyperlipidemia) HTN (hypertension) MTHFR mutation Osteoarthritis Pain, abdominal, RLQ Pericardial effusion (HCC) RUQ pain Thyroid nodule Social History: Social History Tobacco Use Smoking status: Former Smokeless tobacco: Never Vaping Use Vaping status: Never Used Substance Use Topics Alcohol use: No Drug use: No ETOH: none Family History: Family History Problem Relation Age of Onset Breast Cancer Mother 74 Heart Brother Diabetes Paternal Grandmother BP 132/84 (BP Site: Left Arm, BP Position: Sitting, BP Cuff Size: Regular Adult) Pulse 77 Wt 60.1 kg (132 lb 9.6 oz) SpO2 97% BMI 22.76 kg/m General: Awake, alert, not in acute distress CERTIFIED ORTHOTIST/PEDORTHIST: Answering questions appropriately. No abnormal posturing or positioning. Speech is normal. CN exam is normal. UE exam is normal including power, coordination, reflexes and sensation bilaterally. LE exam normal for sensation and coordination bilaterally. Forward flexion of lumbar spine normal. No saddle anesthesia. Full cervical ROM She has normal power of her right lower extremity in all movements including hip ab/adduction. She has 4/5 power in knee flexion and extension on the left which is notably decreased compared to right. Hyperreflexlic patellar reflex bilaterally. Normal ankle tendon reflex bilaterally. She is diffusely tender to palpation of her spine in the mid to lower thoracic spine. Denies cervical tenderness. She endorses diffuse lower back paresthesia. RESP: Clear lungs bilateral with good air entry, No increased work of breathing CVS: RRR, No murmur. Pulses 2+. GI: Abdomen is soft, non distended, non tender. Skin/Other: No rashes or lesions. HEENT: pupils equal Extremities: No peripheral edema, swelling or erythema of lower extremities. Labs: Reviewed the following: Pertinent labs as outlined above Imaging: Reviewed the following: XR and dexa as above Assessment/Plan: ASSESSMENT/PLAN: 1. Acute midline thoracic back pain - ICD9: 724.1, ICD10: M54.6 (primary diagnosis) 2. Weakness of both lower extremities - ICD9: 729.89, ICD10: R29.898 Acute midline thoracic back pain with leg weakness as well as risk factors of age, osteoporosis, and chronic L5 pars defects with grade 1/2 anterolisthesis of L5 on S1. Nature of pain with sudden onset during ambulation, 9/10 pain, with objective weakness on my exam of her left knee flexion and extension raise concern for possible spinal cord pathology and/or acute abnormality such as compression fracture. Because of this, I discussed with patient that I recommend ED presentation for assessment with imaging to rule out the possibility of spinal cord impingement and vertebral and spinal cord pathology in her current symptoms. 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 She understands she should go to the ED and not take any detours. Ran Luna Remainder of plan including medications to be continued as prior to this visit unless noted above. I will reach out if lab testing or imaging is abnormal and requires a change in the plan discussed above. Otherwise, we can review results at follow up. I discussed this with the patient and they are in agreement. Discussed with patient the importance of continuity of care. Follow up appointments as scheduled below. Advised to follow up after ED assessment depending on outcome. Advised to schedule follow up with us after their assessment. Discussed fully the risks of not seeking higher care could include consequences up to permanent disability or . Patient understands theses risks and agrees to attend ED. Ran Luna MD Internal Medicine and Pediatrics [facility] 04/23/2025 8:53 AM Portions of note generated prior to visit. History of illness, past medical and surgical history, family and social history, medications, allergies, labs and imaging reviewed during visit and are updated as appropriate following visit. I spent 45 minutes in the visit, with more than 50% of the total [id number] time of the visit in counseling / coordination of care. Future Appointments Date Time Provider Department Center 04/25/2025 8:30 AM SCREEN MAMMO [facility] 05/05/2025 10:[address] [facility]/05[facility] 11:[address] [facility] (I-STAT) [facility] 05/13/2025 1:40 PM Bridget De Luna MD [facility] 05/29/2025 3:30 PM Rosie Luna MD [facility] documented in this encounter [facility] 04-17-2025 History of Present illness Narrative POPULATION HEALTH NAVIGATION OUTREACH Action/FYI Patient was not outreached. Chart review only. No HCCs and no HM due. Reason for Outreach Care Gap/HCC or Scheduling Wellness Visits Care Gaps due: N/A Patient Contacted: Unable or unnecessary to reach patient: Chart Review only Navigation Signature: Bel Zee April 17, 2025 12:46 PM documented in this encounter [facility] 04-14-2025 Instructions Daylin Mendenhall APRN.CNP - 04/14/2025 8:14 AM EDT - Use medication for nausea and vomiting at home still. - Drink plenty of fluids, rest, and treat Sx. - See Dr. De Luna 04/28 documented in this encounter [facility] 04-14-2025 History of Present illness Narrative This is a 70 year old female who presents today with: Patient presents with: Acute Visit: Nausea, soft stools HISTORY OF PRESENT ILLNESS: Terri Villar is a 70 year old female. Patient presents with: Acute Visit: Nausea, soft stools Terri Villar is a 70-year-old female presenting with acute onset nausea, soft stools, and abdominal pain. Nausea and Soft Stools: - Onset last night. - No emesis; stools are soft but not loose. - eTrri had a couple of stools yesterday and one this morning. - Denies fever or chills. - No recent dietary changes. - Denies cough, dyspnea, or wheezing. - Denies belching or burping. - Family member also feeling unwell. Abdominal Pain: - Pain localized to the upper abdomen, described as on the bones. - No relief from Pepto-Bismol or baking soda. PAST MEDICAL HISTORY: PAST MEDICAL HISTORY Diagnosis Date Chronic kidney disease, stage III (moderate) (HCC) DDD (degenerative disc disease), cervical Dr Morfin Folate deficiency Gastritis GERD (gastroesophageal reflux disease) History of COVID-19 07/12/202106/2021 HLD (hyperlipidemia) HTN (hypertension) MTHFR mutation Osteoarthritis Pain, abdominal, RLQ Pericardial effusion (HCC) RUQ pain Thyroid nodule PAST SURGICAL HISTORY Procedure Laterality Date DELIVERY ONLY 10/02/1984 , low transverse ALLERGIES Amoxicillin, Asa [Salicylates], Codeine, Cortizone-10 [Hydrocortisone], Cymbalta [Duloxetine], Dolobid [Diflunisal], Duricef [Cefadroxil], Dye, Entex La [Phenylephrine-Guaifenesin], Erythromycin, Flu Vac 2014 (65 Up)-Mf59c(Pf), Keflex [Cephalexin], Levaquin [Levofloxacin], Macrobid [Nitrofurantoin Monohyd/M-Cryst], Mobic [Meloxicam], Morphine, Pantoprazole, Penicillins, Prednisolone, Prilosec [Omeprazole], Septra [Sulfamethoxazole-Trimethoprim], Sulfa (Sulfonamide Antibiotics), and Tetracycline MEDICATIONS Current Outpatient Medications Medication Sig amitriptyline (ELAVIL) 10 mg tablet Take 1 tablet by mouth daily at bedtime. conjugated estrogens (PREMARIN) vaginal cream Use 2 g vaginally two times a week. sertraline (ZOLOFT) 25 mg tablet Take 1 tablet by mouth daily at bedtime. fluticasone (FLONASE) 50 mcg/actuation nasal spray Use 2 sprays in each nostril once daily. Rinse mouth after use. famotidine (PEPCID) 20 mg tablet Take 1 tablet by mouth two times a day. lisinopril (ZESTRIL) 40 mg tablet Take 1 tablet by mouth once daily. folic acid 1 mg tablet Take 1 tablet by mouth once daily. atorvastatin (LIPITOR) 10 mg tablet Take 1 tablet by mouth daily at bedtime. For cholesterol. No current facility-administered medications for this visit. FAMILY HISTORY Problem Relation Age of Onset Breast Cancer Mother 74 Heart Brother Diabetes Paternal Grandmother Social History Tobacco Use Smoking status: Former Smokeless tobacco: Never Vaping Use Vaping status: Never Used Substance Use Topics Alcohol use: No Drug use: No REVIEW OF SYSTEMS Constitutional: (-) fever, (-) chills Head: (+) headaches Ears/Nose/Mouth/Throat: (+) ear pain Respiratory: (-) shortness of breath, (-) cough, (-) wheeze Gastrointestinal: (+) nausea, (+) soft stools, (+) upper abdominal pain, (-) vomiting, (-) diarrhea, (-) belching EXAM: BP 136/80 Pulse 60 Temp 36.3 C (97.3 F) (Right Tympanic) Wt 60.8 kg (134 lb) SpO2 99% BMI 23.00 kg/m PHYSICAL EXAM: GENERAL: NAD, alert and oriented. SKIN: Unremarkable, no rash or skin lesions. HEAD: Normocephalic. EARS: External ears normal, canals clear, TM's normal. NOSE/SINUSES: Nares normal. Septum midline. Mild erythema and swelling noted, no signs of infection. OROPHARYNX: Lips, mucosa, and tongue normal, good dentition. No oral lesions noted. NECK: Supple, no lymphadenopathy, normal thyroid, no carotid bruits. LUNGS: Clear to auscultation bilaterally, no wheezes/rhonchi/rales. HEART: Regular rate and rhythm, no murmurs. No ectopy. EXTREMITIES: Normal, no deformities, no skin discoloration, no edema. ABDOMEN: Soft, mild tenderness noted in the epigastric region. No hepatomegaly or splenomegaly. Bowel sounds normal. No heat or tenderness on palpation. NEURO: Awake, alert and oriented x3, cranial nerves II-XII grossly intact, normal gait, no involuntary motions. LABS: ASSESSMENT/PLAN: 1. Enteritis - ICD9: 558.9, ICD10: K52.9 Acute - Pt. Has medication for nausea and vomiting at home still. - Drink plenty of fluids, rest, and treat Sx. Discussed treatment plan and patient voices understanding. Patient's questions answered appropriately. Medications and potential side effects were discussed and patient voices understanding. Return to the office as scheduled or as needed for worsening/no improvement. Daylin Mendenhall APRN.WASH WORKER documented in this encounter [facility] 04-08-2025 History of Present illness Narrative This is a 70 year old female who presents today with: Terri Kulkarni Adriennehardik is a 70-year-old female with a history of hematuria, presenting for evaluation of dysuria and hematuria. HISTORY OF PRESENT ILLNESS: Dysuria: - Onset a couple of months ago. - Described as a burning sensation occurring immediately after micturition, localized internally. - Occasionally experiences burning throughout the day. - Denies dysuria during micturition. - Denies vaginal discharge or pruritus. - Terri has decreased intake of coffee and carbonated beverages, including Sprite. - Using Pyridium with some relief; prescribed for 10 days. - Terri has estrogen cream at home but has not been using it regularly. Hematuria: - Chronic hematuria for years; etiology undetermined. - Last urology visit was in May 2022. - Terri underwent cystoscopy without definitive findings. PAST MEDICAL HISTORY: PAST MEDICAL HISTORY Diagnosis Date Chronic kidney disease, stage III (moderate) (HCC) DDD (degenerative disc disease), cervical Dr Navjot Folate deficiency Gastritis GERD (gastroesophageal reflux disease) History of COVID-19 07/12/202106/2021 HLD (hyperlipidemia) HTN (hypertension) MTHFR mutation Osteoarthritis Pain, abdominal, RLQ Pericardial effusion (HCC) RUQ pain Thyroid nodule PAST SURGICAL HISTORY Procedure Laterality Date DELIVERY ONLY 10/02/1984 , low transverse ALLERGIES Amoxicillin, Asa [Salicylates], Codeine, Cortizone-10 [Hydrocortisone], Cymbalta [Duloxetine], Dolobid [Diflunisal], Duricef [Cefadroxil], Dye, Entex La [Phenylephrine-Guaifenesin], Erythromycin, Flu Vac 2015 (65 Up)-Mf59c(Pf), Keflex [Cephalexin], Levaquin [Levofloxacin], Macrobid [Nitrofurantoin Monohyd/M-Cryst], Mobic [Meloxicam], Morphine, Pantoprazole, Penicillins, Prednisolone, Prilosec [Omeprazole], Septra [Sulfamethoxazole-Trimethoprim], Sulfa (Sulfonamide Antibiotics), and Tetracycline MEDICATIONS Current Outpatient Medications Medication Sig amitriptyline (ELAVIL) 10 mg tablet Take 1 tablet by mouth daily at bedtime. conjugated estrogens (PREMARIN) vaginal cream Use 2 g vaginally two times a week. sertraline (ZOLOFT) 25 mg tablet Take 1 tablet by mouth daily at bedtime. fluticasone (FLONASE) 50 mcg/actuation nasal spray Use 2 sprays in each nostril once daily. Rinse mouth after use. famotidine (PEPCID) 20 mg tablet Take 1 tablet by mouth two times a day. lisinopril (ZESTRIL) 40 mg tablet Take 1 tablet by mouth once daily. folic acid 1 mg tablet Take 1 tablet by mouth once daily. atorvastatin (LIPITOR) 10 mg tablet Take 1 tablet by mouth daily at bedtime. For cholesterol. No current facility-administered medications for this visit. FAMILY HISTORY Problem Relation Age of Onset Breast Cancer Mother 74 Heart Brother Diabetes Paternal Grandmother Social History Tobacco Use Smoking status: Former Smokeless tobacco: Never Vaping Use Vaping status: Never Used Substance Use Topics Alcohol use: No Drug use: No REVIEW OF SYSTEMS Genitourinary: (+) post-void urethral burning, (-) dysuria, (-) vaginal discharge, (-) vaginal pruritus Gastrointestinal: (-) diarrhea, (-) constipation EXAM: BP 122/78 Pulse 77 Resp 16 SpO2 97% PHYSICAL EXAM: General Appearance: Well appearing, alert, in no acute distress, well-hydrated, well nourished.. Skin: Skin color, texture, turgor normal, no suspicious rashes or lesions. Head: Normocephalic, no masses, lesions, tenderness or abnormalities. Lungs: Lungs clear to auscultation. No wheezing, rhonchi, rales.. Heart: RRR without murmur, gallop, or rubs. No ectopy. Neurologic: Gait normal. ASSESSMENT/PLAN 1. Dysuria (R30.0) 2. UTI symptoms (R39.9) - Experiencing post-micturition burning sensation localized internally, not externally on the skin. No associated vaginal discharge or pruritus. Nocturia and urinary frequency noted. - Previous trial of Pyridium provided partial relief. ? Interstitial cystitis. - Discussed avoiding potential irritants including beverages high in vitamin C, citrus flavorings, and artificial sweeteners such as those found in Crystal Light. Previously noted to have atrophic changes by urogyn and nurse obgyn and estrogen cream encouraged. Encouraged to restart topical estrogen cream, advised application twice weekly. Educated on the necessity of an 8-week trial to assess efficacy due to epithelial turnover. - Initiated amitriptyline at bedtime to manage pelvic pain. Informed patient of potential drowsiness. - Urine sample sent for culture to rule out bacterial infection. - Patient understands and agrees with the treatment plan. Recheck in 1 month. Discussed treatment plan and patient voices understanding. Patient's questions answered appropriately. Medications and potential side effects were discussed and patient voices understanding. Return to the office as scheduled or as needed for worsening/no improvement. Herlinda Jett APRN.WASH WORKER Recording using [employer] software for draft documentation of the visit was discussed with the patient/authorized unit support representative; all questions welcomed and answered. Patient/authorized unit support representative agreed to proceed documented in this encounter [facility] 04-08-2025 Instructions Herlinda Jett APRN.WILFREDO - 04/08/2025 10:54 AM EDT - A urine sample has been sent for culture to check for infection; we will review the results and let you know if treatment changes are needed. - Restart the vaginal estrogen cream twice weekly--apply a small amount inside and outside the vaginal opening; it may take up to 8 weeks to notice improvement in urinary symptoms. - A low-dose amitriptyline prescription has been sent to [facility] for you to take one tablet at bedtime; it can cause drowsiness, so plan to take it before sleep. - Avoid beverages high in vitamin C or citrus flavorings and be cautious with artificial sweeteners (for example, Crystal Light), as these can irritate the bladder. - Follow up with your human service specialist to evaluate the uterine polyp and discuss options for a hysteroscopic biopsy. - Recheck in a month. documented in this encounter [facility] 04-08-2025 Telephone encounter Note Can discuss at OV with provider this am. Isaac Sanchez LPN [facility] 04-08-2025 Miscellaneous Notes Can discuss at OV with provider this am. Isaac Sanchez LPN documented in this encounter [facility] 03-27-2025 Instructions Daylin Mendenhall APRN.CNP - 03/27/2025 10:12 AM EDT - Take Pyridium (phenazopyridine) as prescribed for 10 days to relieve bladder discomfort and burning with urination. - Increase your fluid intake: aim for at least 64 ounces (about eight 8-ounce glasses) of water daily, and up to 86 ounces on hot days. - Avoid beverages high in vitamin C or citrus flavorings, which can worsen bladder pain; Crystal Light may be acceptable. - Your symptoms are consistent with interstitial cystitis (inflammation of the bladder lining) that can flare easily; maintaining good hydration and avoiding trigger drinks can help manage flare-ups. documented in this encounter [facility] 03-27-2025 History of Present illness Narrative This is a 70 year old female who presents today with: Patient presents with: UTI: Dysuria and abdominal cramping HISTORY OF PRESENT ILLNESS: Terri Villar is a 70 year old female. Patient presents with: UTI: Dysuria and abdominal cramping Terri Villar is a 70-year-old female with a history of interstitial cystitis, presenting for evaluation of dysuria. Dysuria: - Recurrent episodes of dysuria. - Symptoms improve with increased water intake. - Denies fever or chills. Genitourinary: (-) pelvic cramping PAST MEDICAL HISTORY: PAST MEDICAL HISTORY Diagnosis Date Chronic kidney disease, stage III (moderate) (HCC) DDD (degenerative disc disease), cervical Dr Knapic Folate deficiency Gastritis GERD (gastroesophageal reflux disease) History of COVID-19 07/12/202106/2021 HLD (hyperlipidemia) HTN (hypertension) MTHFR mutation Osteoarthritis Pain, abdominal, RLQ Pericardial effusion (HCC) RUQ pain Thyroid nodule PAST SURGICAL HISTORY Procedure Laterality Date DELIVERY ONLY 10/02/1984 , low transverse ALLERGIES Amoxicillin, Asa [Salicylates], Codeine, Cortizone-10 [Hydrocortisone], Cymbalta [Duloxetine], Dolobid [Diflunisal], Duricef [Cefadroxil], Dye, Entex [place] [Phenylephrine-Guaifenesin], Erythromycin, Flu Vac 2015 (65 Up)-Mf59c(Pf), Keflex [Cephalexin], Levaquin [Levofloxacin], Macrobid [Nitrofurantoin Monohyd/M-Cryst], Mobic [Meloxicam], Morphine, Pantoprazole, Penicillins, Prednisolone, Prilosec [Omeprazole], Septra [Sulfamethoxazole-Trimethoprim], Sulfa (Sulfonamide Antibiotics), and Tetracycline MEDICATIONS Current Outpatient Medications Medication Sig sertraline (ZOLOFT) 25 mg tablet Take 1 tablet by mouth daily at bedtime. fluticasone (FLONASE) 50 mcg/actuation nasal spray Use 2 sprays in each nostril once daily. Rinse mouth after use. famotidine (PEPCID) 20 mg tablet Take 1 tablet by mouth two times a day. lisinopril (ZESTRIL) 40 mg tablet Take 1 tablet by mouth once daily. folic acid 1 mg tablet Take 1 tablet by mouth once daily. atorvastatin (LIPITOR) 10 mg tablet Take 1 tablet by mouth daily at bedtime. For cholesterol. No current facility-administered medications for this visit. FAMILY HISTORY Problem Relation Age of Onset Breast Cancer Mother 74 Heart Brother Diabetes Paternal Grandmother Social History Tobacco Use Smoking status: Former Smokeless tobacco: Never Vaping Use Vaping status: Never Used Substance Use Topics Alcohol use: No Drug use: No EXAM: BP 130/80 Pulse 75 Temp 36.2 C (97.1 F) Wt 60.3 kg (133 lb) SpO2 98% BMI 22.83 kg/m PHYSICAL EXAM: GENERAL: NAD, alert and oriented SKIN: unremarkable, no rash or skin lesions. HEAD: normocephalic LUNGS: Clear to auscultation bilaterally, no wheezes/rhonchi/rales. HEART: Regular rate and rhythm, no murmurs. No ectopy. LABS: urine negative for nitrates and leukocytes ASSESSMENT/PLAN: 1. Dysuria - ICD9: 788.1, ICD10: R30.0 Acute, exacerbation interstitial cystitis - Patient education for prevention given - UA DIP, URINE (POC) Discussed treatment plan and patient voices understanding. Patient's questions answered appropriately. Medications and potential side effects were discussed and patient voices understanding. Return to the office as scheduled or as needed for worsening/no improvement. Daylin Mendenhall APRN.WILFREDO documented in this encounter [facility] 03-24-2025 Telephone encounter Note Patient informed. Kate Parmar MA [facility] 03-24-2025 Miscellaneous Notes Patient informed. Kate Parmar MA ----- Message from Vangie Vázquez APRN.WASH WORKER sent at 03/24/2025 10:22 AM EDT ----- No acute findings on back images. Vangie Vázquez APRN.WASH WORKER documented in this encounter [facility] 03-24-2025 Telephone encounter Note ----- Message from Vangie Vázquez APRN.WASH WORKER sent at 03/24/2025 10:22 AM EDT ----- No acute findings on back images. Vangie Vázquez APRN.WASH WORKER [facility] 03-24-2025 History of Present illness Narrative Radiology Service Progress Note PATIENT NAME: Terri Villar DATE OF SERVICE: March 24, 2025 TIME: 9:53 AM PATIENT IDENTITY VERIFICATION COMPLETED USING TWO (2) IDENTIFIERS: Name and Date of confirmed by patient verbally. FALL SCREENING: Has the patient had 2 falls in the last year or 1 fall with injury or currently using an Ambulatory Assistive Device (Walker, Cane, Wheelchair, Crutches, etc.)? No PATIENT GENDER DATA: Assigned female at . status: : No status: NO. PATIENT RELEVANT IMPLANT DATA REVIEWED: Not Applicable PATIENT PRESENTS WITH AN IMPLANTABLE OR ATTACHED AUDIO PRODUCTION MANAGER: No RADIOLOGY DEPARTMENT: General X-ray: Exam(s) Completed: Spine X-Ray(s): Thoracic and Lumbar AP / LAT / L5-S1 PERIPHERAL IV DATA: Not applicable SIGNED BY: RT Linda(R) March 24, 2025 9:53 AM documented in this encounter [facility] 03-24-2025 Instructions Vangie Vázquez APRN.CNP - 03/24/2025 9:47 AM EDT - Finish the Medrol Dosepak as prescribed, taking each dose until the pack is completed. - Continue taking Tylenol for your back pain as needed. - Use a heating pad on your back for comfort. - Avoid lifting heavy objects to protect your back while it heals. - Complete the x-ray of your thoracic and lumbar spine as ordered--schedule this imaging as soon as possible. - If your pain persists after finishing the Medrol Dosepak and your x-rays show no significant findings, discuss starting physical therapy. - Attend the CT scan of your abdomen and pelvis on 05/05/2025 for follow-up of your pancreatic cysts as previously scheduled. documented in this encounter [facility] 03-24-2025 History of Present illness Narrative 03/24/2025 Patient presents with: Follow Up: Mid back and upper abdominal pain, saw Dr. De Luna last week Recording using [employer] software for draft documentation of the visit was discussed with the patient/authorized unit support representative; all questions welcomed and answered. Patient/authorized unit support representative agreed to proceed SUBJECTIVE: This is a 70 year old that is here today for Above Complaints. Back Pain: - Onset a few days ago after lifting a heavy pack of water. - Pain localized to lower thoracic and upper lumbar regions. - Describes pain as stabbing and burning, especially upon getting out of bed. - Aggravated by humidity and weather changes. - Using Tylenol, heating pad, and topical aspirin with lidocaine for relief. - Currently taking a Medrol Dosepak, which provides some relief. - Denies known trauma or injury. - Denies urinary symptoms, bowel incontinence, or inability to urinate. - Occasional leg weakness, longstanding issue. - No history of back surgeries; seen by a spine doctor years ago. Abdominal Pain: - Chronic burning and hurting sensation. - Believes she has an ulcer; awaiting EGD. - Denies fevers, chills, burning urination, diarrhea, nausea, or vomiting. - Has cysts on the pancreas; under care of a doctor in [place]. - CT of the abdomen and pelvis scheduled for 05/05/2025. PAST MEDICAL HISTORY Diagnosis Date Chronic kidney disease, stage III (moderate) (HCC) DDD (degenerative disc disease), cervical Dr Morfin Folate deficiency Gastritis GERD (gastroesophageal reflux disease) History of COVID-19 07/12/202106/2021 HLD (hyperlipidemia) HTN (hypertension) MTHFR mutation Osteoarthritis Pain, abdominal, RLQ Pericardial effusion (HCC) RUQ pain Thyroid nodule ALLERGIES Amoxicillin, Asa [Salicylates], Codeine, Cortizone-10 [Hydrocortisone], Cymbalta [Duloxetine], Dolobid [Diflunisal], Duricef [Cefadroxil], Dye, Entex La [Phenylephrine-Guaifenesin], Erythromycin, Flu Vac 2015 (65 Up)-Mf59c(Pf), Keflex [Cephalexin], Levaquin [Levofloxacin], Macrobid [Nitrofurantoin Monohyd/M-Cryst], Mobic [Meloxicam], Morphine, Pantoprazole, Penicillins, Prednisolone, Prilosec [Omeprazole], Septra [Sulfamethoxazole-Trimethoprim], Sulfa (Sulfonamide Antibiotics), and Tetracycline MEDICATIONS Current Outpatient Medications Medication Sig methylPREDNISolone (MEDROL, APRIL,) 4 mg Dose-Pack Take as instructed per package. sertraline (ZOLOFT) 25 mg tablet Take 1 tablet by mouth daily at bedtime. fluticasone (FLONASE) 50 mcg/actuation nasal spray Use 2 sprays in each nostril once daily. Rinse mouth after use. famotidine (PEPCID) 20 mg tablet Take 1 tablet by mouth two times a day. lisinopril (ZESTRIL) 40 mg tablet Take 1 tablet by mouth once daily. folic acid 1 mg tablet Take 1 tablet by mouth once daily. atorvastatin (LIPITOR) 10 mg tablet Take 1 tablet by mouth daily at bedtime. For cholesterol. No current facility-administered medications for this visit. Medications and allergies reviewed by this provider. SOCIAL HISTORY Social History Tobacco Use Smoking status: Former Smokeless tobacco: Never Vaping Use Vaping status: Never Used Substance Use Topics Alcohol use: No Drug use: No REVIEW OF SYSTEMS All other reviewed and negative other than HPI. OBJECTIVE: BP 142/88 Pulse 88 Temp 36.9 C (98.4 F) Resp 18 Wt 60.3 kg (133 lb) SpO2 97% BMI 22.83 kg/m . Vital signs reviewed by this provider. GENERAL: NAD, alert and oriented. SKIN: Unremarkable, no rash or skin lesions to exposed skin EYES: conjunctiva clear. EARS: External ears normal, canals clear, TM's normal. EXTREMITIES: Normal, no deformities, no skin discoloration, no edema. BACK: Soreness noted across lower thoracic and upper lumbar regions. Full range of motion with forward flexion, extension, lateral bending, and rotation. No obvious deformity, erythema or swelling NEURO: Awake, alert and oriented x3, normal gait, no involuntary motions. Sensation intact in lower extremities. Normal patellar reflexes. Foot pushes and pulls even and strong Shingrix Vaccine(1 of 2) Never done Pneumococcal Vaccine: 50+(1 of 1 - PCV) Never done Mammogram Screening due on 10/18/2024 Covid-19 Vaccine( - 2023- season) due on 06/17/2025 Hemoglobin/Hematocrit due on 09/23/2025 Serum Creatinine due on 10/15/2025 Depression Screening due on 10/19/2025 Annual PCP Team Chronic Disease Visit due on 03/19/2026 Bone Density Screening due on 06/13/2026 Colorectal Cancer Screening due on 03/29/2027 Diabetes Screening due on 10/15/2027 RSV Vaccine(1 - 1-dose 75+ series) due on 2028 Lipid Screening due on 05/23/2029 DTaP,Tdap,Td Vaccine(2 - Td or Tdap) due on 10/13/2031 Advance Directive Discussion Completed Medicare Advantage Annual Wellness Visit Completed Hepatitis C Screening Completed Influenza Vaccine Discontinued 1. Acute bilateral thoracic back pain (M54.6) 2. Lumbar spine pain (M54.50) - Onset after lifting a heavy pack of water; localized to lower thoracic and upper lumbar regions. - Currently on Medrol Dosepak with partial relief; using Tylenol, heating pad, and topical aspirin with lidocaine for symptomatic management. - No history of back surgeries; previous spine evaluation in [place] with advice to avoid heavy lifting. - Physical exam reveals soreness and burning sensation with full range of motion in flexion, extension, lateral bending, and rotation. - Ordered x-rays to rule out fractures or other abnormalities. - If symptoms persist post-Medrol Dosepak, consider initiating physical therapy. 3. Abdominal pain, unspecified abdominal location (R10.9) - Chronic issue; no new symptoms such as fevers, chills, dysuria, diarrhea, nausea, or vomiting. - Scheduled for CT of the abdomen and pelvis on 05/05/2025 for pancreatic cysts evaluation. - Awaiting insurance approval for EGD due to suspected ulcer. Vangie Vázquez APRN.WASH WORKER Prescription instructions reviewed with patient as applicable. Patient advised if symptoms do not improve or if symptoms worsen sooner, to contact their primary care physician. Potential red flag symptoms discussed with the patient. Reviewed appropriate action plan to take if red flag symptoms occur. Patient agreeable to treatment plan. Medical Decision Making: Problems: Low: Acute, uncomplicated illness or injury Data: Unique test(s) ordered: 2 Risk: Low: Low risk from testing/treatment Medical Decision Making Level: 3 - Low documented in this encounter [facility] 03-19-2025 Instructions Bridget De Luna MD - 03/19/2025 1:14 PM EDT - A Medrol Dosepak has been prescribed and sent to your [facility] in [place]; take the tablets exactly as directed on the pack with a little food. - Continue using your Flexeril muscle relaxer at home for pain as needed; be aware it can cause drowsiness. - Avoid non-steroidal anti-inflammatory drugs (NSAIDs) to protect your blood pressure and kidney function. - Apply ice and then heat alternately over the tender area on your right rib. - Drink plenty of fluids each day. - If your rib pain does not improve within two weeks or if it worsens sooner, contact the clinic--an X-ray may then be needed. - We will see you for your routine checkup at the end of April. documented in this encounter [facility] 03-19-2025 History of Present illness Narrative Terri Villar is a 70-year-old female presenting with right rib pain. HPI Right Rib Pain: - Onset a few days ago after lifting a heavy pack of water. - Pain localized to the right side, along the last rib. - Aggravated by certain movements and bending. - Denies hearing or feeling a pop at the time of injury. - Denies known trauma, bruising, or rashes. - Denies dyspnea, nausea, emesis, or diarrhea. - Terri tried heat and Tylenol with minimal relief. - Has Flexeril at home. - Denies cough today; had a mild cough yesterday due to sinus drainage. MEDICATIONS: Current Outpatient Medications Medication Sig methylPREDNISolone (MEDROL, APRIL,) 4 mg Dose-Pack Take as instructed per package. sertraline (ZOLOFT) 25 mg tablet Take 1 tablet by mouth daily at bedtime. fluticasone (FLONASE) 50 mcg/actuation nasal spray Use 2 sprays in each nostril once daily. Rinse mouth after use. famotidine (PEPCID) 20 mg tablet Take 1 tablet by mouth two times a day. lisinopril (ZESTRIL) 40 mg tablet Take 1 tablet by mouth once daily. folic acid 1 mg tablet Take 1 tablet by mouth once daily. atorvastatin (LIPITOR) 10 mg tablet Take 1 tablet by mouth daily at bedtime. For cholesterol. No current facility-administered medications for this visit. ALLERGIES: ALLERGIES Allergen Reactions Amoxicillin Itching Asa [Salicylates] Itching Codeine Itching Cortizone-10 [[place]* Itching Cymbalta [Duloxetin* Intolerance One pill: bruning all over Dolobid [Diflunisal] Itching Duricef [Cefadroxil] Itching Dye Shortness of Breath Ct dye. Including rash Entex La [Phenyleph* Itching Erythromycin Itching Flu Vac 2014 (65 Up* Shortness of Breath Keflex [Cephalexin] Itching Levaquin [Levofloxa* Other: See Comments itching Macrobid [Nitrofura* Other: See Comments Fast heart rate Mobic [Meloxicam] Itching Morphine Itching Pantoprazole Itching Penicillins Hives Prednisolone Other: See Comments Elevated blood pressure. Has done well with medrol dose april. Prilosec [Omeprazol* Itching Septra [Sulfamethox* Hives Sulfa (Sulfonamide * Hives Tetracycline Hives Can take doxycycline PAST MEDICAL HISTORY Diagnosis Date Chronic kidney disease, stage III (moderate) (HCC) DDD (degenerative disc disease), cervical Dr Navjot Folate deficiency Gastritis GERD (gastroesophageal reflux disease) History of COVID-19 07/12/202106/2021 HLD (hyperlipidemia) HTN (hypertension) MTHFR mutation Osteoarthritis Pain, abdominal, RLQ Pericardial effusion (HCC) RUQ pain Thyroid nodule PAST SURGICAL HISTORY Procedure Laterality Date DELIVERY ONLY 10/02/1984 , low transverse FAMILY HISTORY Problem Relation Age of Onset Breast Cancer Mother 74 Heart Brother Diabetes Paternal Grandmother Social History Tobacco Use Smoking status: Former Smokeless tobacco: Never Vaping Use Vaping status: Never Used Substance Use Topics Alcohol use: No Drug use: No Reviewed current medications, allergies, past medical history, surgical history, family history and social history today. REVIEW OF SYSTEMS Respiratory: (-) shortness of breath, (-) cough Gastrointestinal: (-) nausea, (-) vomiting, (-) diarrhea Musculoskeletal: (+) right lower rib pain Skin: (-) rash HEALTH MAINTENANCE: Reviewed health maintenance issues today and recommended the following in detail. Shingrix Vaccine(1 of 2) Never done Pneumococcal Vaccine: 50+(1 of 1 - PCV) Never done Mammogram Screening due on 10/18/2024 LAB REVIEWED: VITALS: BP 132/80 Pulse 87 Wt 60.8 kg (134 lb) SpO2 94% BMI 23.00 kg/m Last 4 Encounter Wt Readings: Date: Wt: 03/19/2025 60.8 kg (134 lb) 03/10/2025 59.9 kg (132 lb) 02/03/2025 59.4 kg (131 lb) 01/23/2025 59.9 kg (132 lb) PHYSICAL EXAMINATION: GENERAL: NAD, alert and oriented. SKIN: Unremarkable, no rash or skin lesions. HEART: Regular rate and rhythm, no murmurs. No ectopy. EXTREMITIES: Normal, no deformities, no skin discoloration, no edema. ABDOMEN: Soft, non-tender, no masses palpated. Tenderness noted along the bottom of the right rib cage from the posterior axillary line to the anterior axillary line. No lumps, bumps, step-offs, or rib instability noted. ASSESSMENT AND PLAN 1. Rib pain on right side (R07.81) - Onset after lifting a heavy object; localized tenderness along the bottom of the right rib cage from the post-axillary line to the anterior axillary line. - No palpable masses, step-offs, or rib instability noted on examination. - Prescribed Medrol Dosepak, to be taken with food; sent prescription to [facility] in [place]. - Advised use of ice alternating with heat and Flexeril as needed, cautioning about potential drowsiness. - Instructed to maintain adequate hydration. - If pain worsens or persists beyond a couple of weeks, will consider ordering an X-ray. 2. Primary hypertension (I10) - Blood pressure well-controlled; advised to avoid excessive use of NSAIDs to prevent potential impact on blood pressure and renal function. 3. Mixed hyperlipidemia (E78.2) - Stable; continue current management. 4. Chronic kidney disease, stage 3a (HCC) (N18.31) - Renal function stable; advised to avoid NSAIDs to prevent further renal impairment. 5. GERD without esophagitis (K21.9) - Scheduled for endoscopy; continue current medication regimen. (See patient after visit summary for additional instructions to patient) Bridget De Luna MD Recording using [employer] software for draft documentation of the visit was discussed with the patient/authorized unit support representative; all questions welcomed and answered. Patient/authorized unit support representative agreed to proceed documented in this encounter [facility] 03-19-2025 Telephone encounter Note Noted. Seeing me today [facility] 03-19-2025 Miscellaneous Notes Noted. Seeing me today documented in this encounter [facility] 03-14-2025 Telephone encounter Note Lets start sertraline just 25 mg at bedtime. You have a follow up with Dr. De Luna end april. He can reassess symptoms. [facility] 03-14-2025 Miscellaneous Notes Lets start sertraline just 25 mg at bedtime. You have a follow up with Dr. De Luna end april. He can reassess symptoms. What is going on? Some depression sneaking back in? Not wanting to do the things you normally enjoy? Increased stressors? I need a little more information. documented in this encounter [facility] 03-14-2025 Telephone encounter Note What is going on? Some depression sneaking back in? Not wanting to do the things you normally enjoy? Increased stressors? I need a little more information. [facility] 03-11-2025 History of Present illness Narrative This is a 69 year old female who presents today with: Terir Villar is a 69-year-old female presenting with acute onset rib and back pain. HISTORY OF PRESENT ILLNESS: Rib and Back Pain: - Onset a few days ago. - Pain localized to the ribs, radiating to the back. - Denies known trauma or injury. - Using heating pad and Tylenol for relief. - Reports muscle spasms in the affected area. - Denies pain with deep breathing, sneezing, or coughing. - Has Flexeril available at home. Upcoming EGD: - Scheduled for an upper endoscopy on . - Has experienced delays due to insurance approval issues. PAST MEDICAL HISTORY: PAST MEDICAL HISTORY Diagnosis Date Chronic kidney disease, stage III (moderate) (HCC) DDD (degenerative disc disease), cervical Dr Morfin Folate deficiency Gastritis GERD (gastroesophageal reflux disease) History of COVID-19 07/12/202106/2021 HLD (hyperlipidemia) HTN (hypertension) MTHFR mutation Osteoarthritis Pain, abdominal, RLQ Pericardial effusion (HCC) RUQ pain Thyroid nodule PAST SURGICAL HISTORY Procedure Laterality Date DELIVERY ONLY 10/02/1984 , low transverse ALLERGIES Amoxicillin, Asa [Salicylates], Codeine, Cortizone-10 [Hydrocortisone], Cymbalta [Duloxetine], Dolobid [Diflunisal], Duricef [Cefadroxil], Dye, Entex La [Phenylephrine-Guaifenesin], Erythromycin, Flu Vac 2015 (65 Up)-Mf59c(Pf), Keflex [Cephalexin], Levaquin [Levofloxacin], Macrobid [Nitrofurantoin Monohyd/M-Cryst], Mobic [Meloxicam], Morphine, Pantoprazole, Penicillins, Prednisolone, Prilosec [Omeprazole], Septra [Sulfamethoxazole-Trimethoprim], Sulfa (Sulfonamide Antibiotics), and Tetracycline MEDICATIONS Current Outpatient Medications Medication Sig fluticasone (FLONASE) 50 mcg/actuation nasal spray Use 2 sprays in each nostril once daily. Rinse mouth after use. ondansetron orally disintegrating (ZOFRAN ODT) 4 mg disintegrating tablet Take 1 tablet by mouth every 6 hours as needed for nausea/vomiting. famotidine (PEPCID) 20 mg tablet Take 1 tablet by mouth two times a day. lisinopril (ZESTRIL) 40 mg tablet Take 1 tablet by mouth once daily. folic acid 1 mg tablet Take 1 tablet by mouth once daily. atorvastatin (LIPITOR) 10 mg tablet Take 1 tablet by mouth daily at bedtime. For cholesterol. No current facility-administered medications for this visit. FAMILY HISTORY Problem Relation Age of Onset Breast Cancer Mother 74 Heart Brother Diabetes Paternal Grandmother Social History Tobacco Use Smoking status: Former Smokeless tobacco: Never Vaping Use Vaping status: Never Used Substance Use Topics Alcohol use: No Drug use: No REVIEW OF SYSTEMS Respiratory: (-) pain with deep inspiration, (-) pain with cough Musculoskeletal: (+) bilateral rib pain radiating to back, (+) paraspinal tenderness, (+) thoracic muscle spasms, (+) knee popping EXAM: BP 138/82 Pulse 80 Resp 16 SpO2 98% PHYSICAL EXAM: General Appearance: Well appearing, alert, in no acute distress, well-hydrated, well nourished.. Skin: Skin color, texture, turgor normal, no suspicious rashes or lesions. Head: Normocephalic, no masses, lesions, tenderness or abnormalities. Eyes: Anicteric sclera. Extraocular movements are intact. . Back:no pain to palpation of vertebrae, + tenderness to bilat parathoracic muscles. Lungs: Lungs clear to auscultation. No wheezing, rhonchi, rales.. Heart: RRR without murmur, gallop, or rubs. No ectopy. Neurologic: Gait normal. ASSESSMENT/PLAN 1. Acute bilateral thoracic back pain (M54.6) - Onset a few days ago, no known injury; tenderness noted bilaterally on examination, no central tenderness. - No pain with deep breathing, sneezing, or coughing. - Recommended continuation of Tylenol, moist heat, ice, and massage. - Advised use of Flexeril for muscle spasms. - Discussed potential use of Medrol Dosepak if pain persists, to be initiated after scheduled upper endoscopy on . - Patient to contact me on Monday if symptoms persist for further management. Discussed treatment plan and patient voices understanding. Patient's questions answered appropriately. Medications and potential side effects were discussed and patient voices understanding. Return to the office as scheduled or as needed for worsening/no improvement. Herlinda Jett APRN.WASH WORKER Recording using [employer] software for draft documentation of the visit was discussed with the patient/authorized unit support representative; all questions welcomed and answered. Patient/authorized unit support representative agreed to proceed documented in this encounter [facility] 03-11-2025 Instructions Herlinda Jett APRN.WILFREDO - 03/11/2025 11:35 AM EDT - Resume your Flexeril as previously prescribed to help relax the muscle spasms; start it today. - Continue taking Tylenol for pain relief as needed. - Apply moist heat packs, use ice, and gently massage the tender areas on your ribs and back. - Attend your upper endoscopy this at the scheduled location. - If your rib or back pain remains bothersome by Monday, call or message the clinic to have the Medrol dose pack sent to your pharmacy. documented in this encounter [facility] 02-22-2025 Telephone encounter Note Prescription Refill Information The patient has been identified by name and date of : Yes Caregiver verified no other encounters exist for this prescription request: Yes Caregiver confirmed with patient/requestor that no other refills are due, in the near future, with this provider at this time: No The last office visit in the department: 02/21/25 Does the patient have a future office visit with this provider/department: Yes Requested Prescriptions Pending Prescriptions Disp Refills fluticasone (FLONASE) 50 mcg/actuation nasal spray 3 each 3 Sig: Use 2 sprays in each nostril once daily. Rinse mouth after use. April Garcia MA February 22, 2025 8:55 AM [facility] 02-22-2025 Miscellaneous Notes Prescription Refill Information The patient has been identified by name and date of : Yes Caregiver verified no other encounters exist for this prescription request: Yes Caregiver confirmed with patient/requestor that no other refills are due, in the near future, with this provider at this time: No The last office visit in the department: 02/21/25 Does the patient have a future office visit with this provider/department: Yes Requested Prescriptions Pending Prescriptions Disp Refills fluticasone (FLONASE) 50 mcg/actuation nasal spray 3 each 3 Sig: Use 2 sprays in each nostril once daily. Rinse mouth after use. April Garcia MA February 22, 2025 8:55 AM documented in this encounter [facility] 02-06-2025 Telephone encounter Note If you have an ulcer, you need to proton pump inhibitor such as pantoprazole. Pepcid is actually harder on your kidneys than the medication that I prescribed. Even if you can just take it for 30 days. [facility] 02-06-2025 Miscellaneous Notes If you have an ulcer, you need to proton pump inhibitor such as pantoprazole. Pepcid is actually harder on your kidneys than the medication that I prescribed. Even if you can just take it for 30 days. Patient does not wish to take Prevacid due to possible side effects. Requesting refill of her Pepcid. Pended. Kate Parmar MA documented in this encounter [facility] 02-05-2025 Telephone encounter Note Patient does not wish to take Prevacid due to possible side effects. Requesting refill of her Pepcid. Pended. Kate Parmar MA [facility] 02-03-2025 Telephone encounter Note Notified pt of response below from Provider. Brianna Varghese MA [facility] 02-03-2025 Miscellaneous Notes Notified pt of response below from Provider. Brianna Varghese MA When you had your scope done, she will biopsy you for that. They always do. The biopsy is a better way to check for it. See [email or web address] message. April Garcia MA documented in this encounter [facility] 02-03-2025 Telephone encounter Note When you had your scope done, she will biopsy you for that. They always do. The biopsy is a better way to check for it. [facility] 02-03-2025 Telephone encounter Note See kirill message. April Garcia MA [facility] 02-03-2025 Instructions Daylin Mendenhall APRN.CNP - 02/03/2025 8:32 AM EDT Continue taking your vitamin D as prescribed by Herlinda. Keep limiting carbonated drinks and spicy foods as discussed. Monitor your symptoms (nausea, abdominal and back pain, burning with urination) and let your doctor know if they worsen or change. Follow up with Dr. Luna for your scheduled upper scope procedure. Switch Pepcid to lansoprazole 30 mg daily- 30 min before any other medications or food See Dr. De Luna April 28 as scheduled documented in this encounter [facility] 02-03-2025 History of Present illness Narrative This is a 69 year old female who presents today with: Patient presents with: Abdominal Pain Nausea HISTORY OF PRESENT ILLNESS: Terri Villar is a 69 year old female. Patient presents with: Abdominal Pain Nausea Terri is a 69-year-old female presenting with acute onset nausea, abdominal pain, and dysuria. Nausea and Abdominal Pain: - Woke up this morning with nausea and abdominal pain radiating to the back. - Describes abdominal pain as sore and burning, localized to the mid-abdomen. - Denies emesis or headaches. - Scheduled for an upper endoscopy next month with Dr. Luna. - Recent colonoscopy was normal. - Suspects GERD may be contributing to symptoms. Dysuria: - Reports dysuria. - Denies visible hematuria. - Consumed carbonated beverages recently. Vitamin D Deficiency: - Diagnosed with vitamin D deficiency; started on vitamin D supplementation one month ago. - Recent lab work on 01/16 showed vitamin D levels were lower than previous levels. - Also has a history of folic acid deficiency; unsure if current levels are low. PAST MEDICAL HISTORY: PAST MEDICAL HISTORY Diagnosis Date Chronic kidney disease, stage III (moderate) (HCC) DDD (degenerative disc disease), cervical Dr Morfin Folate deficiency Gastritis GERD (gastroesophageal reflux disease) History of COVID-19 07/12/202106/2021 HLD (hyperlipidemia) HTN (hypertension) MTHFR mutation Osteoarthritis Pain, abdominal, RLQ Pericardial effusion (HCC) RUQ pain Thyroid nodule PAST SURGICAL HISTORY Procedure Laterality Date DELIVERY ONLY 10/02/1984 , low transverse ALLERGIES Amoxicillin, Asa [Salicylates], Codeine, Cortizone-10 [Hydrocortisone], Cymbalta [Duloxetine], Dolobid [Diflunisal], Duricef [Cefadroxil], Dye, Entex La [Phenylephrine-Guaifenesin], Erythromycin, Flu Vac 2015 (65 Up)-Mf59c(Pf), Keflex [Cephalexin], Levaquin [Levofloxacin], Macrobid [Nitrofurantoin Monohyd/M-Cryst], Mobic [Meloxicam], Morphine, Pantoprazole, Penicillins, Prednisolone, Prilosec [Omeprazole], Septra [Sulfamethoxazole-Trimethoprim], Sulfa (Sulfonamide Antibiotics), and Tetracycline MEDICATIONS Current Outpatient Medications Medication Sig lisinopril (ZESTRIL) 40 mg tablet Take 1 tablet by mouth once daily. cyclobenzaprine (FLEXERIL) 10 mg tablet Take 1 tablet by mouth three times a day as needed. triamcinolone acetonide (KENALOG) 0.1 % cream Apply to affected area two times a day. folic acid 1 mg tablet Take 1 tablet by mouth once daily. famotidine (PEPCID) 20 mg tablet Take 1 tablet by mouth two times a day. atorvastatin (LIPITOR) 10 mg tablet Take 1 tablet by mouth daily at bedtime. For cholesterol. fluticasone (FLONASE) 50 mcg/actuation nasal spray Use 2 Sprays in each nostril once daily. Rinse mouth after use. vitamin b complex (B-COMPLEX) tab Take 1 tablet by mouth once daily. No current facility-administered medications for this visit. FAMILY HISTORY Problem Relation Age of Onset Breast Cancer Mother 74 Heart Brother Diabetes Paternal Grandmother Social History Tobacco Use Smoking status: Former Smokeless tobacco: Never Vaping Use Vaping status: Never Used Substance Use Topics Alcohol use: No Drug use: No REVIEW OF SYSTEMS Constitutional: (+) fatigue, (-) fever, (-) chills Head: (-) headache Gastrointestinal: (+) abdominal pain, (+) nausea, (-) vomiting Genitourinary: (+) dysuria, (-) hematuria EXAM: BP 128/86 Pulse 72 Temp 36.3 C (97.4 F) Wt 59.4 kg (131 lb) SpO2 98% BMI 22.49 kg/m recheck 126/76 PHYSICAL EXAM: GENERAL: NAD, alert and oriented SKIN: unremarkable, no rash or skin lesions. HEAD: normocephalic NECK: Supple, no carotid bruits. LUNGS: Clear to auscultation bilaterally, no wheezes/rhonchi/rales. HEART: Regular rate and rhythm, no murmurs. No ectopy. EXTREMITIES: Normal, No deformities, No skin discoloration, No edema. ABDOMEN: Soft, mild tenderness in the mid-epigastric region. No rebound tenderness or guarding. No suprapubic pain. NEURO: Awake, alert and oriented x3, normal gait, no involuntary motions LABS: urine dip- trace lysed blood, neg nitrates and leukocytes ASSESSMENT/PLAN: 1. Lower abdominal pain (R10.30) - Onset today with associated nausea and dysuria; no hematuria, fever, chills, or headache. - Abdominal tenderness noted on palpation, particularly in the mid-abdomen. Switch Pepcid to lansoprazole 30 mg daily. - Differential diagnosis includes cystitis; discussed dietary triggers such as spicy and carbonated foods. - Ordered urinalysis to evaluate for urinary tract infection. - Patient is currently on Vitamin D supplementation for low levels; no recent check on folic acid levels. - Scheduled for an upper endoscopy next month with Dr. Luna to further investigate potential gastrointestinal causes. Discussed treatment plan and patient voices understanding. Patient's questions answered appropriately. Medications and potential side effects were discussed and patient voices understanding. Return to the office as scheduled or as needed for worsening/no improvement. Daylin Mendenhall NP documented in this encounter [facility] 01-06-2025 Instructions Herlinda Jett APRN.WILFREDO - 01/06/2025 10:37 AM EDT Start taking mucinex Use tylenol as needed for fever, chills, or pain Continue to use flonase as needed Continue to monitor symptoms documented in this encounter [facility] 01-06-2025 History of Present illness Narrative This is a 69 year old female who presents today with: Patient presents with: Acute Visit: Feet/legs feel cold HISTORY OF PRESENT ILLNESS: Terri Villar is a 69 year old female. Patient presents with: Acute Visit: Feet/legs feel cold Legs and feet are cold since yesterday No leg tenderness or pain Denies any numbness or tingling Denies any swelling Having some nausea, no vomiting Denies constipation or diarrhea Denies chest pain Denies shortness of breath Has some congestion Has a runny nose Symptoms also began last night Denies cough Has not been around anyone who has been sick recently Denies ear pain and sore throat Denies fever Tested for COVID and flu at home last night which were negative REVIEW OF SYSTEMS GENERAL: No weight loss, malaise or fevers/having chills primarily affecting the lower right and left extremities. HEENT: Negative for frequent or significant headaches, No changes in hearing or vision. NECK: Negative for lumps, goiter, pain and significant neck swelling RESPIRATORY: Negative for cough, hemoptysis, wheezing, dyspnea or shortness of breath CARDIOVASCULAR: Negative for chest pain, leg swelling, orthopnea, or palpitations GI: No vomiting, or diarrhea/constipation. No hematochezia/melena. No heartburn or reflux symptoms. Intermittent nausea. : No history of dysuria, frequency or incontinence MUSCULOSKELETAL: Negative for joint pain or swelling. SKIN: Negative for lesions, rash, and itching ENDOCRINE: Negative for cold or heat intolerance, polyuria, polydipsia and goiter PAST MEDICAL HISTORY: PAST MEDICAL HISTORY Diagnosis Date Chronic kidney disease, stage III (moderate) (HCC) DDD (degenerative disc disease), cervical Dr Tristaic Folate deficiency Gastritis GERD (gastroesophageal reflux disease) History of COVID-19 07/12/202106/2021 HLD (hyperlipidemia) HTN (hypertension) MTHFR mutation Osteoarthritis Pain, abdominal, RLQ Pericardial effusion (HCC) RUQ pain Thyroid nodule PAST SURGICAL HISTORY Procedure Laterality Date DELIVERY ONLY 10/02/1984 , low transverse ALLERGIES Amoxicillin, Asa [Salicylates], Codeine, Cortizone-10 [Hydrocortisone], Cymbalta [Duloxetine], Dolobid [Diflunisal], Duricef [Cefadroxil], Dye, Entex La [Phenylephrine-Guaifenesin], Erythromycin, Flu Vac 2015 (65 Up)-Mf59c(Pf), Keflex [Cephalexin], Levaquin [Levofloxacin], Macrobid [Nitrofurantoin Monohyd/M-Cryst], Mobic [Meloxicam], Morphine, Pantoprazole, Penicillins, Prednisolone, Prilosec [Omeprazole], Septra [Sulfamethoxazole-Trimethoprim], Sulfa (Sulfonamide Antibiotics), and Tetracycline MEDICATIONS Current Outpatient Medications Medication Sig cyclobenzaprine (FLEXERIL) 10 mg tablet Take 1 tablet by mouth three times a day as needed. triamcinolone acetonide (KENALOG) 0.1 % cream Apply to affected area two times a day. folic acid 1 mg tablet Take 1 tablet by mouth once daily. famotidine (PEPCID) 20 mg tablet Take 1 tablet by mouth two times a day. lisinopril (ZESTRIL) 40 mg tablet Take 1 tablet by mouth once daily. atorvastatin (LIPITOR) 10 mg tablet Take 1 tablet by mouth daily at bedtime. For cholesterol. fluticasone (FLONASE) 50 mcg/actuation nasal spray Use 2 Sprays in each nostril once daily. Rinse mouth after use. vitamin b complex (B-COMPLEX) tab Take 1 tablet by mouth once daily. No current facility-administered medications for this visit. FAMILY HISTORY Problem Relation Age of Onset Breast Cancer Mother 74 Heart Brother Diabetes Paternal Grandmother Social History Tobacco Use Smoking status: Former Smokeless tobacco: Never Vaping Use Vaping status: Never Used Substance Use Topics Alcohol use: No Drug use: No EXAM: BP 128/86 Pulse 79 Resp 16 SpO2 97% PHYSICAL EXAM: General Appearance: Well appearing, alert, in no acute distress, well-hydrated, well nourished.. Skin: Skin color, texture, turgor normal, no suspicious rashes or lesions. Head: Normocephalic, no masses, lesions, tenderness or abnormalities. Eyes: Anicteric sclera. Pupils are equally round and reactive to light. Extraocular movements are intact. . Ears: External ears normal, canals clear. Nose/Sinuses: Nares normal, septum midline, mucosa normal, no drainage or sinus tenderness, post nasal drainage. Oropharynx: Lips, mucosa, and tongue normal, teeth and gums normal, oropharynx normal. Lungs: Lungs clear to auscultation. No wheezing, rhonchi, rales.. Heart: RRR without murmur, gallop, or rubs. No ectopy. Extremities: No deformities, edema, skin discoloration, clubbing or cyanosis. Good capillary refill. . Lymph Nodes: No cervical lymphadenopathy, No supraclavicular lymphadenopathy, No axillary lymphadenopathy., and No inguinal lymphadenopathy. ASSESSMENT/PLAN: 1. Viral upper respiratory tract infection - ICD9: 465.9, ICD10: J06.9 - Discussed viral etiology and rationale for treatment. - Symptomatic treatment with prn analgesia, tylenol every 4 hours PRN - Supportive care with fluids and rest - Discussed with patient to use mucinex for congestion - Discussed with patient to use flonase as needed - Patient declines viral swabs in office today as at home testing was negative for COVID/Flu Discussed treatment plan and patient voices understanding. Patient's questions answered appropriately. Medications and potential side effects were discussed and patient voices understanding. Return to the office as scheduled or as needed for worsening/no improvement. The patient indicates understanding of these issues and agrees with the plan. Herlinda Jett APRN.WILFREDO documented in this encounter [facility] 12-30-2024 Instructions Daylin Mendenhall APRN.CNP - 12/30/2024 9:[address] De Luna in April Use tizanidine as needed for sleep and spasm Stretches given documented in this encounter [facility] 12-30-2024 History of Present illness Narrative This is a 69 year old female who presents today with: Patient presents with: Neck Pain: Left sided neck pain for 2 days HISTORY OF PRESENT ILLNESS: Terri iVllar is a 69 year old female. Patient presents with: Neck Pain: Left sided neck pain for 2 days Left side of neck has been sore for 2 days. Hard to lay on that side. Left ear bothering her. Used Thermacare patch- just made her sweat. Using Aspercreme roll-on. Helps a little. Can't hardly sleep. PAST MEDICAL HISTORY: PAST MEDICAL HISTORY Diagnosis Date Chronic kidney disease, stage III (moderate) (HCC) DDD (degenerative disc disease), cervical Dr Morfin Folate deficiency Gastritis GERD (gastroesophageal reflux disease) History of COVID-19 07/12/202106/2021 HLD (hyperlipidemia) HTN (hypertension) MTHFR mutation Osteoarthritis Pain, abdominal, RLQ Pericardial effusion RUQ pain Thyroid nodule PAST SURGICAL HISTORY Procedure Laterality Date DELIVERY ONLY 10/02/1984 , low transverse ALLERGIES Amoxicillin, Asa [Salicylates], Codeine, Cortizone-10 [Hydrocortisone], Cymbalta [Duloxetine], Dolobid [Diflunisal], Duricef [Cefadroxil], Dye, Entex La [Phenylephrine-Guaifenesin], Erythromycin, Flu Vac 2015 (65 Up)-Mf59c(Pf), Keflex [Cephalexin], Levaquin [Levofloxacin], Macrobid [Nitrofurantoin Monohyd/M-Cryst], Mobic [Meloxicam], Morphine, Pantoprazole, Penicillins, Prednisolone, Prilosec [Omeprazole], Septra [Sulfamethoxazole-Trimethoprim], Sulfa (Sulfonamide Antibiotics), and Tetracycline MEDICATIONS Current Outpatient Medications Medication Sig cyclobenzaprine (FLEXERIL) 10 mg tablet Take 1 tablet by mouth three times a day as needed. triamcinolone acetonide (KENALOG) 0.1 % cream Apply to affected area two times a day. folic acid 1 mg tablet Take 1 tablet by mouth once daily. famotidine (PEPCID) 20 mg tablet Take 1 tablet by mouth two times a day. lisinopril (ZESTRIL) 40 mg tablet Take 1 tablet by mouth once daily. atorvastatin (LIPITOR) 10 mg tablet Take 1 tablet by mouth daily at bedtime. For cholesterol. fluticasone (FLONASE) 50 mcg/actuation nasal spray Use 2 Sprays in each nostril once daily. Rinse mouth after use. vitamin b complex (B-COMPLEX) tab Take 1 tablet by mouth once daily. No current facility-administered medications for this visit. FAMILY HISTORY Problem Relation Age of Onset Breast Cancer Mother 74 Heart Brother Diabetes Paternal Grandmother Social History Tobacco Use Smoking status: Former Smokeless tobacco: Never Vaping Use Vaping status: Never Used Substance Use Topics Alcohol use: No Drug use: No EXAM: BP 128/88 Pulse 88 Temp 36.1 C (96.9 F) (Left Tympanic) Wt 59 kg (130 lb) SpO2 98% BMI 22.31 kg/m PHYSICAL EXAM: Physical Exam Vitals reviewed. Constitutional: Appearance: Normal appearance. HENT: Head: Normocephalic. Right Ear: Tympanic membrane, ear canal and external ear normal. There is no impacted cerumen. Left Ear: Tympanic membrane, ear canal and external ear normal. There is no impacted cerumen. Musculoskeletal: Comments: No palpable pain along cervical spine Pain palpable along sternocleidomastoid on the left Tenderness on palpation. No radicular Sx. Limited ext. 30 degree and right flexion 20 degrees. Able to flex and left flex without limitation, slight limitation on rotation. Skin: General: Skin is warm and dry. Neurological: Mental Status: She is alert and oriented to person, place, and time. LABS: ASSESSMENT/PLAN: 1. Neck pain, musculoskeletal - ICD9: 723.1, ICD10: M54.2 SCM muscle - Switch cyclobenzaprine to tizanidine- has it at home - Stretches given - Declined injection of Toradol Discussed treatment plan and patient voices understanding. Patient's questions answered appropriately. Medications and potential side effects were discussed and patient voices understanding. Return to the office as scheduled or as needed for worsening/no improvement. Daylin Mendenhall APRN.WASH WORKER documented in this encounter [facility] 12-27-2024 History of Present illness Narrative Patient presents with: URI HPI: Patient presents today for office visit for acute illness. ENT: Patient complains of sinus pressure. Duration: Symptoms started yesterday Fever: No. Headache: Yes. Around eyes. Sore throat: No. Ear pain: Yes. Left ear. Nasal drainage: Yes. Cough: No. Shortness of breath: No. Nausea: Yes. Vomiting: No. Diarrhea: No. Gets her scopes next month!!! MEDICATIONS: Current Outpatient Medications Medication Sig cyclobenzaprine (FLEXERIL) 10 mg tablet Take 1 tablet by mouth three times a day as needed. triamcinolone acetonide (KENALOG) 0.1 % cream Apply to affected area two times a day. folic acid 1 mg tablet Take 1 tablet by mouth once daily. famotidine (PEPCID) 20 mg tablet Take 1 tablet by mouth two times a day. lisinopril (ZESTRIL) 40 mg tablet Take 1 tablet by mouth once daily. atorvastatin (LIPITOR) 10 mg tablet Take 1 tablet by mouth daily at bedtime. For cholesterol. fluticasone (FLONASE) 50 mcg/actuation nasal spray Use 2 Sprays in each nostril once daily. Rinse mouth after use. vitamin b complex (B-COMPLEX) tab Take 1 tablet by mouth once daily. No current facility-administered medications for this visit. ALLERGIES: ALLERGIES Allergen Reactions Amoxicillin Itching Asa [Salicylates] Itching Codeine Itching Cortizone-10 [[place]* Itching Cymbalta [Duloxetin* Intolerance One pill: bruning all over Dolobid [Diflunisal] Itching Duricef [Cefadroxil] Itching Dye Shortness of Breath Ct dye. Including rash Entex La [Phenyleph* Itching Erythromycin Itching Flu Vac 2015 (65 Up* Shortness of Breath Keflex [Cephalexin] Itching Levaquin [Levofloxa* Other: See Comments itching Macrobid [Nitrofura* Other: See Comments Fast heart rate Mobic [Meloxicam] Itching Morphine Itching Pantoprazole Itching Penicillins Hives Prednisolone Other: See Comments Elevated blood pressure. Has done well with medrol dose april. Prilosec [Omeprazol* Itching Septra [Sulfamethox* Hives Sulfa (Sulfonamide * Hives Tetracycline Hives Can take doxycycline PAST MEDICAL HISTORY Diagnosis Date Chronic kidney disease, stage III (moderate) (HCC) DDD (degenerative disc disease), cervical Dr Navjot Folate deficiency Gastritis GERD (gastroesophageal reflux disease) History of COVID-19 07/12/202106/2021 HLD (hyperlipidemia) HTN (hypertension) MTHFR mutation Osteoarthritis Pain, abdominal, RLQ Pericardial effusion RUQ pain Thyroid nodule PAST SURGICAL HISTORY Procedure Laterality Date DELIVERY ONLY 10/02/1984 , low transverse FAMILY HISTORY Problem Relation Age of Onset Breast Cancer Mother 74 Heart Brother Diabetes Paternal Grandmother Social History Tobacco Use Smoking status: Former Smokeless tobacco: Never Vaping Use Vaping status: Never Used Substance Use Topics Alcohol use: No Drug use: No Reviewed current medications, allergies, past medical history, surgical history, family history and social history today. REVIEW OF SYSTEMS All other reviewed and negative other than HPI. VITALS: BP 132/80 Pulse 78 Temp 36.8 C (98.3 F) Ht 162.6 cm (5' 4) Wt 60.3 kg (133 lb) SpO2 99% BMI 22.83 kg/m Last 4 Encounter Wt Readings: Date: Wt: 12/06/2024 59.9 kg (132 lb) 11/25/2024 59.9 kg (132 lb) 11/20/2024 61.4 kg (135 lb 5.8 oz) 10/25/2024 59 kg (130 lb) PHYSICAL EXAMINATION: General appearance: Well appearing, alert, in no acute distress, well-hydrated, well nourished. Skin: Skin color, texture, turgor normal, no suspicious rashes or lesions Head: Normocephalic, no masses, lesions, tenderness or abnormalities Eyes: Anicteric sclera. Pupils are equally round and reactive to light. Extraocular movements are intact. Ears: External ears normal, canals clear Nose/Sinuses: Nares normal, septum midline, mucosa normal, no drainage or sinus tenderness Oropharynx: Lips, mucosa, and tongue normal, teeth and gums normal, oropharynx normal Neck: Supple, no adenopathy Lungs: Lungs clear to auscultation. No wheezing, rhonchi, rales Heart: RRR without murmur, gallop, or rubs. No ectopy Abdomen: Normal abdominal exam, Abdomen soft, non-tender. Bowel sounds normal. No masses, organomegaly ASSESSMENT/PLAN: 1. URI, acute - ICD9: 465.9, ICD10: J06.9 - Discussed viral etiology and rationale for treatment. - Symptomatic treatment with prn analgesia - Supportive care with fluids and rest - COVID & INFLUENZA A/B & RSV PCR, ROUTINE Bridget De Luna MD documented in this encounter [facility] 12-20-2024 Instructions Herlinda Jett APRN.CNP - 12/20/2024 10:38 AM EDT Start taking flexeril up to three times per day as needed for back pain Continue using tylenol and heating pads Start using icy hot and Voltaren gel Follow up if symptoms worsen or do not resolve documented in this encounter [facility] 12-20-2024 History of Present illness Narrative This is a 69 year old female who presents today with: Patient presents with: Acute Visit: Back pain since taking a deep breath last evening HISTORY OF PRESENT ILLNESS: Terri Villar is a 69 year old female. Patient presents with: Acute Visit: Back pain since taking a deep breath last evening Pt states that last night she took a deep breath and immediately started having pain in her ribs and back Both left and right side Used tylenol and a heating pack with some relief and then the pain came back Has arthritis in her back Denies SOB Denies chest pain or palpitations No decreased ROM No loss of bowel or bladder control Denies any known injuries to the area Describes pain as shooting and intermittent Pain does not radiate anywhere else REVIEW OF SYSTEMS GENERAL: No weight loss, malaise or fevers/chills HEENT: Negative for frequent or significant headaches, No changes in hearing or vision. NECK: Negative for lumps, goiter, pain and significant neck swelling RESPIRATORY: Negative for cough, hemoptysis, wheezing, dyspnea or shortness of breath CARDIOVASCULAR: Negative for chest pain, leg swelling, orthopnea, or palpitations GI: No nausea, vomiting, or diarrhea/constipation. No hematochezia/melena. No heartburn or reflux symptoms. : No history of dysuria, frequency or incontinence MUSCULOSKELETAL: Intermittent back pain, mid back radiating to the right and left side towards the ribs. SKIN: Negative for lesions, rash, and itching ENDOCRINE: Negative for cold or heat intolerance, polyuria, polydipsia and goiter NEURO: No history of headaches, syncope, paralysis, seizures or tremors PAST MEDICAL HISTORY: PAST MEDICAL HISTORY Diagnosis Date Chronic kidney disease, stage III (moderate) (HCC) DDD (degenerative disc disease), cervical Dr Knapic Folate deficiency Gastritis GERD (gastroesophageal reflux disease) History of COVID-19 07/12/202106/2021 HLD (hyperlipidemia) HTN (hypertension) MTHFR mutation Osteoarthritis Pain, abdominal, RLQ Pericardial effusion RUQ pain Thyroid nodule PAST SURGICAL HISTORY Procedure Laterality Date DELIVERY ONLY 10/02/1984 , low transverse ALLERGIES Amoxicillin, Asa [Salicylates], Codeine, Cortizone-10 [Hydrocortisone], Cymbalta [Duloxetine], Dolobid [Diflunisal], Duricef [Cefadroxil], Dye, Entex La [Phenylephrine-Guaifenesin], Erythromycin, Flu Vac 2014 (65 Up)-Mf59c(Pf), Keflex [Cephalexin], Levaquin [Levofloxacin], Macrobid [Nitrofurantoin Monohyd/M-Cryst], Mobic [Meloxicam], Morphine, Pantoprazole, Penicillins, Prednisolone, Prilosec [Omeprazole], Septra [Sulfamethoxazole-Trimethoprim], Sulfa (Sulfonamide Antibiotics), and Tetracycline MEDICATIONS Current Outpatient Medications Medication Sig triamcinolone acetonide (KENALOG) 0.1 % cream Apply to affected area two times a day. folic acid 1 mg tablet Take 1 tablet by mouth once daily. famotidine (PEPCID) 20 mg tablet Take 1 tablet by mouth two times a day. lisinopril (ZESTRIL) 40 mg tablet Take 1 tablet by mouth once daily. atorvastatin (LIPITOR) 10 mg tablet Take 1 tablet by mouth daily at bedtime. For cholesterol. fluticasone (FLONASE) 50 mcg/actuation nasal spray Use 2 Sprays in each nostril once daily. Rinse mouth after use. vitamin b complex (B-COMPLEX) tab Take 1 tablet by mouth once daily. No current facility-administered medications for this visit. FAMILY HISTORY Problem Relation Age of Onset Breast Cancer Mother 74 Heart Brother Diabetes Paternal Grandmother Social History Tobacco Use Smoking status: Former Smokeless tobacco: Never Vaping Use Vaping status: Never Used Substance Use Topics Alcohol use: No Drug use: No EXAM: BP 142/88 Pulse 87 Resp 16 SpO2 96% PHYSICAL EXAM: General Appearance: Well appearing, alert, in no acute distress, well-hydrated, well nourished.. Lungs: Lungs clear to auscultation. No wheezing, rhonchi, rales.. Heart: RRR without murmur, gallop, or rubs. No ectopy. Extremities: No deformities, edema, skin discoloration, clubbing or cyanosis. Good capillary refill. . Musculoskeletal: Spine range of motion normal. Muscular strength intact, No joint swelling, deformity, or tenderness, No joint swelling, tenderness to palpation of the right and left side of the mid-lower back. Full range of motion. ASSESSMENT/PLAN: 1. Midline low back pain, unspecified chronicity, unspecified whether sciatica present - ICD9: 724.2, ICD10: M54.50 - Discussed with patient to start taking flexeril up to three times per day as needed - aware this can cause drowsiness. - Educated patient to avoid strenuous exercise - Discussed with patient to start taking tylenol - Continue to use heating pad - Trial using icy hot and/or Voltaren gel to the affected area - Follow up if symptoms worsen or do not resolve Discussed treatment plan and patient voices understanding. Patient's questions answered appropriately. Medications and potential side effects were discussed and patient voices understanding. Return to the office as scheduled or as needed for worsening/no improvement. The patient indicates understanding of these issues and agrees with the plan. Herlinda Jett APRN.CNP documented in this encounter [facility] 12-11-2024 Telephone encounter Note Message routed to nephrology social worker to help advise. Thank you [facility] 12-11-2024 Miscellaneous Notes Message routed to nephrology social worker to help advise. Thank you documented in this encounter [facility] 12-06-2024 History of Present illness Narrative Patient left before being seen in the office, left after nurse triage Bayron Wesley DO documented in this encounter [facility] 11-25-2024 Instructions Daylin Mendenhall APRN.CNP - 11/25/2024 3:23 PM EST 1) Phenazopyridine 100 mg 3 x day as needed for burning with urination 2) Drink plenty of water and avoid citrus, soda pop, coffee, and spicy foods documented in this encounter [facility] 11-25-2024 History of Present illness Narrative This is a 69 year old female who presents today with: Patient presents with: Dysuria HISTORY OF PRESENT ILLNESS: Terri Villar is a 69 year old female. Patient presents with: Dysuria Burning with urination off and on for a week. Went to urgent care, urinalysis was contaminated. No fever or chills No headaches or body aches. PAST MEDICAL HISTORY: PAST MEDICAL HISTORY Diagnosis Date Chronic kidney disease, stage III (moderate) (HCC) DDD (degenerative disc disease), cervical Dr Knapic Folate deficiency Gastritis GERD (gastroesophageal reflux disease) History of COVID-19 07/12/202106/2021 HLD (hyperlipidemia) HTN (hypertension) MTHFR mutation Osteoarthritis Pain, abdominal, RLQ Pericardial effusion RUQ pain Thyroid nodule PAST SURGICAL HISTORY Procedure Laterality Date DELIVERY ONLY 10/02/1984 , low transverse ALLERGIES Amoxicillin, Asa [Salicylates], Codeine, Cortizone-10 [Hydrocortisone], Cymbalta [Duloxetine], Dolobid [Diflunisal], Duricef [Cefadroxil], Dye, Entex La [Phenylephrine-Guaifenesin], Erythromycin, Flu Vac 2015 (65 Up)-Mf59c(Pf), Keflex [Cephalexin], Levaquin [Levofloxacin], Macrobid [Nitrofurantoin Monohyd/M-Cryst], Mobic [Meloxicam], Morphine, Pantoprazole, Penicillins, Prednisolone, Prilosec [Omeprazole], Septra [Sulfamethoxazole-Trimethoprim], Sulfa (Sulfonamide Antibiotics), and Tetracycline MEDICATIONS Current Outpatient Medications Medication Sig triamcinolone acetonide (KENALOG) 0.1 % cream Apply to affected area two times a day. folic acid 1 mg tablet Take 1 tablet by mouth once daily. famotidine (PEPCID) 20 mg tablet Take 1 tablet by mouth two times a day. lisinopril (ZESTRIL) 40 mg tablet Take 1 tablet by mouth once daily. atorvastatin (LIPITOR) 10 mg tablet Take 1 tablet by mouth daily at bedtime. For cholesterol. fluticasone (FLONASE) 50 mcg/actuation nasal spray Use 2 Sprays in each nostril once daily. Rinse mouth after use. vitamin b complex (B-COMPLEX) tab Take 1 tablet by mouth once daily. No current facility-administered medications for this visit. FAMILY HISTORY Problem Relation Age of Onset Breast Cancer Mother 74 Heart Brother Diabetes Paternal Grandmother Social History Tobacco Use Smoking status: Former Smokeless tobacco: Never Vaping Use Vaping status: Never Used Substance Use Topics Alcohol use: No Drug use: No EXAM: BP 130/84 Pulse 88 Temp 37.1 C (98.7 F) (Left Tympanic) Wt 59.9 kg (132 lb) SpO2 98% BMI 22.66 kg/m PHYSICAL EXAM: Physical Exam Vitals reviewed. Constitutional: Appearance: Normal appearance. Cardiovascular: Rate and Rhythm: Normal rate and regular rhythm. Pulses: Normal pulses. Heart sounds: Normal heart sounds. Pulmonary: Effort: Pulmonary effort is normal. Breath sounds: Normal breath sounds. Musculoskeletal: General: Normal range of motion. Comments: Walks w/o assistive device Skin: General: Skin is warm and dry. Neurological: General: No focal deficit present. Mental Status: She is alert and oriented to person, place, and time. LABS: ASSESSMENT/PLAN: 1. Dysuria - ICD9: 788.1, ICD10: R30.0 Recurrent interstitial cystitis - Patient education for prevention given - UA DIP, URINE (POC)- negative for nitrates and leukocytes - Treat with pyridium- educated on causes of flares Discussed treatment plan and patient voices understanding. Patient's questions answered appropriately. Medications and potential side effects were discussed and patient voices understanding. Return to the office as scheduled or as needed for worsening/no improvement. Daylin Mendenhall APRN.WILFREDO documented in this encounter [facility] 11-20-2024 History of Present illness Narrative This note was created using NoteWriter. Subjective Terri Villar is a 69 year old female. 69 year old female with PMH HTN, hyperlipidemia, GERD, CKD Acute onset Yesterday +burning +frequency +urgency +lower back pain +suprapubic pressure Denies abdominal pain Denies N/V/D Denies recent coitus Denies vaginal bleeding Denies vaginal discharge Used Tylenol Heating Pad Increased fluids She used a home test, which was POSITIVE The history is provided by the patient. No airport shuttle driver was used. UTI This is a new problem. The current episode started yesterday. The problem occurs every urination. The problem has been gradually worsening. The quality of the pain is described as burning. The pain is at a severity of 5/10. The pain is moderate. There has been no fever. She is Not sexually active. Associated symptoms include frequency and urgency. Pertinent negatives include no chills, no sweats, no nausea, no vomiting, no discharge, no hematuria, no hesitancy, no possible and no flank pain. She has tried NSAIDs and increased fluids for the symptoms. Her past medical history does not include kidney stones, single kidney, urological procedure, recurrent UTIs, urinary stasis or catheterization. PAST MEDICAL HISTORY Diagnosis Date Chronic kidney disease, stage III (moderate) (HCC) DDD (degenerative disc disease), tirso Morfin Folate deficiency Gastritis GERD (gastroesophageal reflux disease) History of COVID-19 07/12/202106/2021 HLD (hyperlipidemia) HTN (hypertension) MTHFR mutation Osteoarthritis Pain, abdominal, RLQ Pericardial effusion RUQ pain Thyroid nodule PAST SURGICAL HISTORY Procedure Laterality Date DELIVERY ONLY 10/02/1984 , low transverse ALLERGIES Amoxicillin, Asa [Salicylates], Codeine, Cortizone-10 [Hydrocortisone], Cymbalta [Duloxetine], Dolobid [Diflunisal], Duricef [Cefadroxil], Dye, Entex La [Phenylephrine-Guaifenesin], Erythromycin, Flu Vac 2015 (65 Up)-Mf59c(Pf), Keflex [Cephalexin], Levaquin [Levofloxacin], Macrobid [Nitrofurantoin Monohyd/M-Cryst], Mobic [Meloxicam], Morphine, Pantoprazole, Penicillins, Prednisolone, Prilosec [Omeprazole], Septra [Sulfamethoxazole-Trimethoprim], Sulfa (Sulfonamide Antibiotics), and Tetracycline MEDICATIONS triamcinolone acetonide (KENALOG) 0.1 % cream Apply to affected area two times a day. folic acid 1 mg tablet Take 1 tablet by mouth once daily. famotidine (PEPCID) 20 mg tablet Take 1 tablet by mouth two times a day. lisinopril (ZESTRIL) 40 mg tablet Take 1 tablet by mouth once daily. atorvastatin (LIPITOR) 10 mg tablet Take 1 tablet by mouth daily at bedtime. For cholesterol. fluticasone (FLONASE) 50 mcg/actuation nasal spray Use 2 Sprays in each nostril once daily. Rinse mouth after use. vitamin b complex (B-COMPLEX) tab Take 1 tablet by mouth once daily. FAMILY HISTORY Problem Relation Age of Onset Breast Cancer Mother 74 Heart Brother Diabetes Paternal Grandmother Social History Tobacco Use Smoking status: Former Smokeless tobacco: Never Vaping Use Vaping status: Never Used Substance Use Topics Alcohol use: No Drug use: No Review of Systems Constitutional: Negative for chills, fatigue and fever. Eyes: Negative for pain, discharge and itching. Respiratory: Negative for apnea, cough, choking and chest tightness. Cardiovascular: Negative for chest pain, palpitations and leg swelling. Gastrointestinal: Negative for abdominal pain, nausea and vomiting. Genitourinary: Positive for dysuria, frequency and urgency. Negative for flank pain, hematuria and hesitancy. Skin: Negative for color change, pallor, rash and wound. Allergic/Immunologic: Negative for environmental allergies, food allergies and immunocompromised state. Neurological: Negative for dizziness, facial asymmetry and headaches. Hematological: Negative for adenopathy. Does not bruise/bleed easily. Psychiatric/Behavioral: Negative for agitation and behavioral problems. Objective BP 130/82 Pulse 88 Temp 36.7 C (98.1 F) Resp 16 Wt 61.4 kg (135 lb 5.8 oz) SpO2 98% BMI 23.23 kg/m Physical Exam Vitals and nursing note reviewed. Constitutional: General: She is not in acute distress. Appearance: Normal appearance. She is normal weight. She is not ill-appearing, toxic-appearing or diaphoretic. HENT: Head: Normocephalic and atraumatic. Right Ear: Ear canal and external ear normal. Left Ear: Ear canal and external ear normal. Nose: Nose normal. No congestion or rhinorrhea. Mouth/Throat: Mouth: Mucous membranes are moist. Pharynx: No oropharyngeal exudate or posterior oropharyngeal erythema. Eyes: General: Right eye: No discharge. Left eye: No discharge. Extraocular Movements: Extraocular movements intact. Conjunctiva/sclera: Conjunctivae normal. Pupils: Pupils are equal, round, and reactive to light. Cardiovascular: Rate and Rhythm: Normal rate and regular rhythm. Pulses: Normal pulses. Heart sounds: Normal heart sounds. No murmur heard. No friction rub. Pulmonary: Effort: Pulmonary effort is normal. No respiratory distress. Breath sounds: Normal breath sounds. No stridor. No wheezing, rhonchi or rales. Chest: Chest wall: No tenderness. Abdominal: General: Abdomen is flat. There is no distension. Palpations: Abdomen is soft. There is no mass. Tenderness: There is no abdominal tenderness. There is no right CVA tenderness, left CVA tenderness, guarding or rebound. Hernia: No hernia is present. Musculoskeletal: General: No swelling, tenderness, deformity or signs of injury. Normal range of motion. Cervical back: Normal range of motion and neck supple. No rigidity. Right lower leg: No edema. Left lower leg: No edema. Lymphadenopathy: Cervical: No cervical adenopathy. Skin: General: Skin is warm and dry. Coloration: Skin is not jaundiced or pale. Findings: No bruising, erythema, lesion or rash. Neurological: General: No focal deficit present. Mental Status: She is alert and oriented to person, place, and time. Cranial Nerves: No cranial nerve deficit. Sensory: No sensory deficit. Motor: No weakness. Coordination: Coordination normal. Gait: Gait normal. Psychiatric: Mood and Affect: Mood normal. Behavior: Behavior normal. Thought Content: Thought content normal. Judgment: Judgment normal. Assessment and Plan ASSESSMENT/PLAN: 1. Burning with urination - ICD9: 788.1, ICD10: R30.0 acute - UA positive for jonny esterase and hematuria - Send urine for culture -Patient has multiple allergies to antibiotics and can only be prescribed Cipro for UTIs. - Discussed with patient that since UA only reveals trace hematuria and trace leuks, which has been present on prior UAs And along with negative urine cultures 10/04/24-normal candy 09/09/24-mixed microbes 10/29/24-mixed microbes 07/19/24-normal candy , I recommend waiting for urine culture prior to any treatment. Discussed that her symptoms could be that of korey, She is amicable to self swab. Obtained and sent Will call with results Creatinine clearance 49 based on 10/15/24 lab results - UA DIP, URINE (POC) - BACTERIAL CULTURE, URINE - KOREY/TRICHOMONAS NAAT - BACTERIAL VAGINOSIS NAAT - GONORRHEA/CHLAMYDIA NAAT Em Slade APRN.WILFREDO documented in this encounter [facility] 11-19-2024 Instructions Daylin Mendenhall APRN.CNP - 11/19/2024 11:00 AM EST - CONSULT TO DERMATOLOGY- Dr. Everett Da Silva (please fax referral) - kenalog cream for itching - See Dr. De Luna in April as scheduled documented in this encounter [facility] 11-19-2024 History of Present illness Narrative This is a 69 year old female who presents today with: Patient presents with: Mole HISTORY OF PRESENT ILLNESS: Terri Villar is a 69 year old female. Patient presents with: Mole Left scapula area of back itchy, 3 mm that is medina- pinpoint area that is dark brown. Itching for a week. Some scaly skin. Left upper abdomen with a two tone nevi 1 cm sized raised lesion that falls off and changes in color PAST MEDICAL HISTORY: PAST MEDICAL HISTORY Diagnosis Date Chronic kidney disease, stage III (moderate) (HCC) DDD (degenerative disc disease), cervical Dr Morfin Folate deficiency Gastritis GERD (gastroesophageal reflux disease) History of COVID-19 07/12/202106/2021 HLD (hyperlipidemia) HTN (hypertension) MTHFR mutation Osteoarthritis Pain, abdominal, RLQ Pericardial effusion RUQ pain Thyroid nodule PAST SURGICAL HISTORY Procedure Laterality Date DELIVERY ONLY 10/02/1984 , low transverse ALLERGIES Amoxicillin, Asa [Salicylates], Codeine, Cortizone-10 [Hydrocortisone], Cymbalta [Duloxetine], Dolobid [Diflunisal], Duricef [Cefadroxil], Dye, Entex La [Phenylephrine-Guaifenesin], Erythromycin, Flu Vac 2015 (65 Up)-Mf59c(Pf), Keflex [Cephalexin], Levaquin [Levofloxacin], Macrobid [Nitrofurantoin Monohyd/M-Cryst], Mobic [Meloxicam], Morphine, Pantoprazole, Penicillins, Prednisolone, Prilosec [Omeprazole], Septra [Sulfamethoxazole-Trimethoprim], Sulfa (Sulfonamide Antibiotics), and Tetracycline MEDICATIONS Current Outpatient Medications Medication Sig sucralfate (CARAFATE) 1 gram tablet Take 1 g by mouth. folic acid 1 mg tablet Take 1 tablet by mouth once daily. famotidine (PEPCID) 20 mg tablet Take 1 tablet by mouth two times a day. lisinopril (ZESTRIL) 40 mg tablet Take 1 tablet by mouth once daily. atorvastatin (LIPITOR) 10 mg tablet Take 1 tablet by mouth daily at bedtime. For cholesterol. fluticasone (FLONASE) 50 mcg/actuation nasal spray Use 2 Sprays in each nostril once daily. Rinse mouth after use. ondansetron orally disintegrating (ZOFRAN ODT) 4 mg disintegrating tablet Take 1 tablet by mouth every 6 hours as needed for nausea/vomiting. vitamin b complex (B-COMPLEX) tab Take 1 tablet by mouth once daily. No current facility-administered medications for this visit. FAMILY HISTORY Problem Relation Age of Onset Breast Cancer Mother 74 Heart Brother Diabetes Paternal Grandmother Social History Tobacco Use Smoking status: Former Smokeless tobacco: Never Vaping Use Vaping status: Never Used Substance Use Topics Alcohol use: No Drug use: No EXAM: BP 130/84 Pulse 72 Temp 36.7 C (98.1 F) (Right Tympanic) SpO2 97% PHYSICAL EXAM: Left upper scapula area with 3 mm area medina in color that itches. Pinpoint area of dark brown noted on left border. Left upper abdomen with a 1 cm sized raised lesion that falls off and changes in color LABS: ASSESSMENT/PLAN: 1. Actinic keratoses - ICD9: 702.0, ICD10: L57.0 Some changes in color and itching - CONSULT TO DERMATOLOGY - kenalog cream for itching Discussed treatment plan and patient voices understanding. Patient's questions answered appropriately. Medications and potential side effects were discussed and patient voices understanding. Return to the office as scheduled or as needed for worsening/no improvement. Daylin Mendenhall APRN.WILRFEDO documented in this encounter [facility] 11-06-2024 Telephone encounter Note Prescription Refill Information The patient has been identified by name and date of : Yes Caregiver verified no other encounters exist for this prescription request: Yes Caregiver confirmed with patient/requestor that no other refills are due, in the near future, with this provider at this time: Yes The last office visit in the department: 11/06/24 Does the patient have a future office visit with this provider/department: Yes, 04/28/25 Requested Prescriptions Pending Prescriptions Disp Refills fluticasone (FLONASE) 50 mcg/actuation nasal spray 3 Each 3 Sig: Use 2 Sprays in each nostril once daily. Rinse mouth after use. *Last rx written 04/08/24 for 3 inhalers with 3 refills. Pt is not due for refill. message to pt notifying of the same. Isaac Sanchez LPN November 06, 2024 4:11 PM [facility] 11-06-2024 Miscellaneous Notes Prescription Refill Information The patient has been identified by name and date of : Yes Caregiver verified no other encounters exist for this prescription request: Yes Caregiver confirmed with patient/requestor that no other refills are due, in the near future, with this provider at this time: Yes The last office visit in the department: 11/06/24 Does the patient have a future office visit with this provider/department: Yes, 04/28/25 Requested Prescriptions Pending Prescriptions Disp Refills fluticasone (FLONASE) 50 mcg/actuation nasal spray 3 Each 3 Sig: Use 2 Sprays in each nostril once daily. Rinse mouth after use. *Last rx written 04/08/24 for 3 inhalers with 3 refills. Pt is not due for refill. message to pt notifying of the same. Isaac Sanchez LPN November 06, 2024 4:11 PM documented in this encounter [facility] 11-06-2024 Instructions Herlinda Jett APRN.[facility] - 11/06/2024 8:37 AM EST Can use the zofran to help with nausea. Stay hydrated. Stomach Flu (Viral Gastroenteritis) What is stomach flu? Stomach flu is a viral infection that affects the stomach and small intestine. It is also called viral gastroenteritis. The illness is usually brief, lasting 1 to 3 days, but may have intermittent symptoms up to a few weeks. How does it occur? Many different viruses can cause gastroenteritis, including rotaviruses, adenoviruses, and the [place] virus. Gastroenteritis is caused by swallowing one of these viruses. The body fluids of infected people contain the virus, sometimes even before their symptoms begin. The virus can be spread by direct contact with an infected person (for example, kissing or shaking hands) or by sharing food, drink, or eating utensils. The virus enters the stomach and intestine and inflames the lining of these organs. As a result, the stomach and intestine are temporarily unable to perform their usual functions. The virus can also cause food to move more rapidly through your gastrointestinal (GI) tract. Some bacteria, parasites, medicines, or other medical conditions can cause infections that have symptoms similar to those of stomach flu. If your symptoms are unusually severe or last longer than a few days, your health care provider can determine if the diarrhea is caused by a virus or by something else. What are the symptoms? When you have stomach flu, you may have one or more of the following symptoms: nausea vomiting stomach cramps diarrhea mild fever fatigue chills loss of appetite muscle aches. The illness may develop over a period of hours, or it may suddenly start with stomach cramps, vomiting, or diarrhea. How is it diagnosed? Your health care provider will review your symptoms. He or she may examine you and order lab tests to rule out more serious illnesses, such as appendicitis, and to detect complications, such as dehydration. How is it treated? The most important thing to do is to rest the stomach and intestines. You can do this by first eating nothing solid and drinking only clear liquids. A little later you can eat soft bland foods that are easy to digest. If you have been vomiting a lot, it is best to have only small, frequent sips of liquids. Drinking too much at once, even an ounce or two, may cause more vomiting. Start with small sips (1 tbsp) of clear liquids every 10-15 min, including water, ice, popsicles, jello, etc. This will keep you from becoming dehydrated. Once tolerating sips for 3-4 hours without vomiting, may increase to larger amounts of clear liquids. Your choice of liquids is important. If water is the only liquid you can drink without vomiting, that is okay. However, if you have been vomiting often for a long time, you must replace the minerals, sodium and potassium, that are lost when you vomit. Sports drinks are generally good sources for fluid and electrolyte replacement for adults. Pedialye, ricelyte, or World Health Organization Replacement Fluids are better for smaller children or babies. Other clear liquids you can drink are weak tea and apple juice. You may also drink soft drinks without caffeine (such as 7-UP) after letting them go flat (lose their carbonation). Chilling the liquids may help you keep them down. Avoid liquids that are acidic (such as orange juice) or caffeinated (such as coffee) or have a lot of carbonation. Do not drink milk until you have gone a few days without diarrhea. You may start eating soft bland foods when you have not vomited for several hours and are able to drink clear liquids without further upset. Soda crackers, toast, plain noodles, gelatin, eggs, applesauce, and bananas are good first choices. Avoid foods that are acidic, spicy, fatty, or fibrous (such as meats, coarse grains, vegetables). Also avoid dairy products. You may start eating these foods again in 3 days or so, when all signs of illness have passed. Sometimes treatment includes prescription medicine to prevent nausea and vomiting or diarrhea. Nonprescription medicine, such as Immodium AD, is available for the treatment of diarrhea and can be very effective. If you use it, make sure you use only the dose recommended on the package. If you have chronic health problems, always check with your health care provider before you use any medicine for diarrhea. If your vomiting or diarrhea persists for more than three days without improvement, please call the office. It is not uncommon for symptoms to improve for a few days and then reoccur for another day or two within a two to three week period. If symptoms persist longer, or is excessive, you may need to have an exam to rule out more serious problems and to check for dehydration. You may also need to have lab tests to determine whether bacteria or germs such as giardia are causing your illness. Dehydration is a potentially serious complication of stomach flu. It can occur if your body loses too much fluid because you keep vomiting or having diarrhea. If you are severely dehydrated, you may need to be given fluids intravenously (IV). In children and older adults, dehydration can quickly become life threatening. Signs of dehydration include dry mouth, sunken eyes, dizziness onstanding or moving, diminished urine or tears, and extreme weakness or lethargy. If you or your child have these symtpoms, please go to the emergency room for immediate attention and intravenous hydratiom. How long do the effects last? Stomach flu rarely lasts longer than 1 to 3 days. However, it may be 1 to 2 weeks before your bowel habits return completely to normal. Again, it is not uncommon to be better for a few days or evena week, and then have another day or two of symptoms. How can I take care of myself? Rest your stomach and intestines by following the guidelines above, but make sure you prevent dehydration by drinking enough liquids. Drink just small amounts often during the vomiting phase of your illness. Do not take aspirin, ibuprofen, or other NSAIDS without checking first with your health care provider. Call the office if: Your symptoms are getting worse. You continue to have severe symptoms for more than 2 or 3 days, or you are just not getting better after a few days. You develop symptoms that are not usually caused by stomach flu, such as blood in your vomit, bloody diarrhea, or severe abdominal pain. What can I do to help prevent stomach flu? The single, most helpful way to prevent the spread of stomach flu is frequent, thorough hand washing. Also, avoid contact with the body fluids of an infected person, including saliva. Don't share food with someone who has stomach flu. Published by [employer]. This content is reviewed periodically and is subject to change as new health information becomes available. The information is intended to inform and educate and is not a replacement for medical evaluation, advice, diagnosis or treatment by a healthcare professional. Developed by [employer]. Copyright 2005 [employer] and/or one of its subsidiaries. All Rights Reserved. Special Instructions: documented in this encounter [facility] 11-06-2024 History of Present illness Narrative This is a 69 year old female who presents today with: Patient presents with: Acute Visit: Stomach cramping and nausea started last evening HISTORY OF PRESENT ILLNESS: Terri Villar is a 69 year old female. Patient presents with: Acute Visit: Stomach cramping and nausea started last evening Pt presents today because she thinks she is getting the stomach bug. Refers that it started last night. Has some abdominal cramping. Stools aren't loose, but softer than usual. + nausea. She is drinking fluids (water and sprite). No fevers/chills. Didn't eat anything out of the ordinary. No vomiting. No hematochezia/melena. Refers hasn't been feeling good either. PAST MEDICAL HISTORY: PAST MEDICAL HISTORY Diagnosis Date Chronic kidney disease, stage III (moderate) (HCC) DDD (degenerative disc disease), cervical Dr Knapic Folate deficiency Gastritis GERD (gastroesophageal reflux disease) History of COVID-19 07/12/202106/2021 HLD (hyperlipidemia) HTN (hypertension) MTHFR mutation Osteoarthritis Pain, abdominal, RLQ Pericardial effusion RUQ pain Thyroid nodule PAST SURGICAL HISTORY Procedure Laterality Date DELIVERY ONLY 10/02/1984 , low transverse ALLERGIES Amoxicillin, Asa [Salicylates], Codeine, Cortizone-10 [Hydrocortisone], Cymbalta [Duloxetine], Dolobid [Diflunisal], Duricef [Cefadroxil], Dye, Entex La [Phenylephrine-Guaifenesin], Erythromycin, Flu Vac 2014 (65 Up)-Mf59c(Pf), Keflex [Cephalexin], Levaquin [Levofloxacin], Macrobid [Nitrofurantoin Monohyd/M-Cryst], Mobic [Meloxicam], Morphine, Pantoprazole, Penicillins, Prednisolone, Prilosec [Omeprazole], Septra [Sulfamethoxazole-Trimethoprim], Sulfa (Sulfonamide Antibiotics), and Tetracycline MEDICATIONS Current Outpatient Medications Medication Sig tiZANidine (ZANAFLEX) 4 mg tablet Take 1 tablet by mouth every 8 hours as needed. sucralfate (CARAFATE) 1 gram tablet Take 1 g by mouth. cholecalciferol (VITAMIN D-3) 50 mcg (2,000 unit) tablet Take 1 tablet by mouth once daily. folic acid 1 mg tablet Take 1 tablet by mouth once daily. famotidine (PEPCID) 20 mg tablet Take 1 tablet by mouth two times a day. lisinopril (ZESTRIL) 40 mg tablet Take 1 tablet by mouth once daily. atorvastatin (LIPITOR) 10 mg tablet Take 1 tablet by mouth daily at bedtime. For cholesterol. fluticasone (FLONASE) 50 mcg/actuation nasal spray Use 2 Sprays in each nostril once daily. Rinse mouth after use. ondansetron orally disintegrating (ZOFRAN ODT) 4 mg disintegrating tablet Take 1 tablet by mouth every 6 hours as needed for nausea/vomiting. vitamin b complex (B-COMPLEX) tab Take 1 tablet by mouth once daily. No current facility-administered medications for this visit. FAMILY HISTORY Problem Relation Age of Onset Breast Cancer Mother 74 Heart Brother Diabetes Paternal Grandmother Social History Tobacco Use Smoking status: Former Smokeless tobacco: Never Vaping Use Vaping status: Never Used Substance Use Topics Alcohol use: No Drug use: No EXAM: BP 132/86 Pulse 83 Temp 36.9 C (98.5 F) Resp 16 SpO2 97% PHYSICAL EXAM: General Appearance: Well appearing, alert, in no acute distress, well-hydrated, well nourished.. Skin: Skin color, texture, turgor normal, no suspicious rashes or lesions. Head: Normocephalic, no masses, lesions, tenderness or abnormalities. Eyes: Anicteric sclera. Extraocular movements are intact. . Lungs: Lungs clear to auscultation. No wheezing, rhonchi, rales. Heart: RRR without murmur, gallop, or rubs. No ectopy. Abdomen: Abdomen soft, generalized tenderness. Bowel sounds normal. No masses, organomegaly. Extremities: No deformities, edema, skin discoloration, clubbing or cyanosis. Good capillary refill. . Neurologic: Gait normal. ASSESSMENT/PLAN: 1. Nausea - ICD9: 787.02, ICD10: R11.0 Some nausea and stools softer than normal. She is tolerating fluids. Norovirus is widespread in the community right now, so definitely could be early or mild case. She has zofran at home -- encouraged to use this as needed. Stay well hydrated. If she is not tolerating oral fluids, she should proceed to the ER. Discussed treatment plan and patient voices understanding. Patient's questions answered appropriately. Medications and potential side effects were discussed and patient voices understanding. Return to the office as scheduled or as needed for worsening/no improvement. Herlinda Jett APRN.WASH WORKER documented in this encounter [facility] 10-30-2024 History of Present illness Narrative Ambulatory Ear Lavage Pre-treatment: other Pt was using Debrox. Treatment: Right ear Equipment and Irrigation solution and Volume used: Single use syringe with single use irrigation tip Water Total Irrigation Volume: 500cc Return flow appearance: Debris Other Moderate amount of cerumen Patient tolerated procedure: yes Tympanic membrane assessment: Tympanic membrane assessed by LIP pre and post procedure This is a 69 year old female who presents today with: Patient presents with: Acute Visit: Pain in bilateral ears x1 week HISTORY OF PRESENT ILLNESS: Terri Villar is a 69 year old female. Patient presents with: Acute Visit: Pain in bilateral ears x1 week Pt presents today with complaint of ear pain. Refers that her ears have been sore and buzzing. She has been using debrox. Hearing okay. Symptoms have been going on for a couple of weeks. Right > Left PAST MEDICAL HISTORY: PAST MEDICAL HISTORY Diagnosis Date Chronic kidney disease, stage III (moderate) (HCC) DDD (degenerative disc disease), cervical Dr Knapic Folate deficiency Gastritis GERD (gastroesophageal reflux disease) History of COVID-19 07/12/202106/2021 HLD (hyperlipidemia) HTN (hypertension) MTHFR mutation Osteoarthritis Pain, abdominal, RLQ Pericardial effusion RUQ pain Thyroid nodule PAST SURGICAL HISTORY Procedure Laterality Date DELIVERY ONLY 10/02/1984 , low transverse ALLERGIES Amoxicillin, Asa [Salicylates], Codeine, Cortizone-10 [Hydrocortisone], Cymbalta [Duloxetine], Dolobid [Diflunisal], Duricef [Cefadroxil], Dye, Entex La [Phenylephrine-Guaifenesin], Erythromycin, Flu Vac 2015 (65 Up)-Mf59c(Pf), Keflex [Cephalexin], Levaquin [Levofloxacin], Macrobid [Nitrofurantoin Monohyd/M-Cryst], Mobic [Meloxicam], Morphine, Pantoprazole, Penicillins, Prednisolone, Prilosec [Omeprazole], Septra [Sulfamethoxazole-Trimethoprim], Sulfa (Sulfonamide Antibiotics), and Tetracycline MEDICATIONS Current Outpatient Medications Medication Sig tiZANidine (ZANAFLEX) 4 mg tablet Take 1 tablet by mouth every 8 hours as needed. sucralfate (CARAFATE) 1 gram tablet Take 1 g by mouth. cholecalciferol (VITAMIN D-3) 50 mcg (2,000 unit) tablet Take 1 tablet by mouth once daily. folic acid 1 mg tablet Take 1 tablet by mouth once daily. famotidine (PEPCID) 20 mg tablet Take 1 tablet by mouth two times a day. lisinopril (ZESTRIL) 40 mg tablet Take 1 tablet by mouth once daily. atorvastatin (LIPITOR) 10 mg tablet Take 1 tablet by mouth daily at bedtime. For cholesterol. fluticasone (FLONASE) 50 mcg/actuation nasal spray Use 2 Sprays in each nostril once daily. Rinse mouth after use. ondansetron orally disintegrating (ZOFRAN ODT) 4 mg disintegrating tablet Take 1 tablet by mouth every 6 hours as needed for nausea/vomiting. vitamin b complex (B-COMPLEX) tab Take 1 tablet by mouth once daily. No current facility-administered medications for this visit. FAMILY HISTORY Problem Relation Age of Onset Breast Cancer Mother 74 Heart Brother Diabetes Paternal Grandmother Social History Tobacco Use Smoking status: Former Smokeless tobacco: Never Vaping Use Vaping status: Never Used Substance Use Topics Alcohol use: No Drug use: No EXAM: BP 158/90 Pulse 76 Resp 16 SpO2 95% PHYSICAL EXAM: General Appearance: Well appearing, alert, in no acute distress, well-hydrated, well nourished.. Skin: Skin color, texture, turgor normal, no suspicious rashes or lesions. Head: Normocephalic, no masses, lesions, tenderness or abnormalities. Ears: External ears normal, canals clear, Positive findings: R TM: obscured by cerumen Large (TM normal after irrigation), L TM: normal. Neurologic: Gait normal. ASSESSMENT/PLAN: 1. Impacted cerumen of right ear - ICD9: 380.4, ICD10: H61.21 Right ear successfully irrigated by nursing. Pt reports buzzing is gone. - AMBULATORY EAR LAVAGE/IRRIGATION Discussed treatment plan and patient voices understanding. Patient's questions answered appropriately. Medications and potential side effects were discussed and patient voices understanding. Return to the office as scheduled or as needed for worsening/no improvement. Herlinda Jett APRN.WASH WORKER documented in this encounter [facility] 10-25-2024 History of Present illness Narrative Chief Complaint Patient presents with: Back Pain: Pain between shoulder blades X 1 day HPI Terri Villar is a 69 year old female who presents here today for Above Complaints.. Patient presents for upper thoracic/lower cervical back pain. Reports this pain has been chronic but today she woke up and the pain was very bad. Patient reports tightness and pain from neck to right shoulder. Denies numbness, tingling, weakness to extremities. Past medical history, appointments, medications, allergies reviewed. Previous Medical History PAST MEDICAL HISTORY Diagnosis Date Chronic kidney disease, stage III (moderate) (HCC) DDD (degenerative disc disease), cervical Dr Navjto Folate deficiency Gastritis GERD (gastroesophageal reflux disease) History of COVID-19 07/12/202106/2021 HLD (hyperlipidemia) HTN (hypertension) MTHFR mutation Osteoarthritis Pain, abdominal, RLQ Pericardial effusion RUQ pain Thyroid nodule Previous Surgical History PAST SURGICAL HISTORY Procedure Laterality Date DELIVERY ONLY 10/02/1984 , low transverse Family History FAMILY HISTORY Problem Relation Age of Onset Breast Cancer Mother 74 Heart Brother Diabetes Paternal Grandmother Patient Allergies ALLERGIES Allergen Reactions Amoxicillin Itching Asa [Salicylates] Itching Codeine Itching Cortizone-10 [[place]* Itching Cymbalta [Duloxetin* Intolerance One pill: bruning all over Dolobid [Diflunisal] Itching Duricef [Cefadroxil] Itching Dye Shortness of Breath Ct dye. Including rash Entex La [Phenyleph* Itching Erythromycin Itching Flu Vac 2014 (65 Up* Shortness of Breath Keflex [Cephalexin] Itching Levaquin [Levofloxa* Other: See Comments itching Macrobid [Nitrofura* Other: See Comments Fast heart rate Mobic [Meloxicam] Itching Morphine Itching Pantoprazole Itching Penicillins Hives Prednisolone Other: See Comments Elevated blood pressure. Has done well with medrol dose april. Prilosec [Omeprazol* Itching Septra [Sulfamethox* Hives Sulfa (Sulfonamide * Hives Tetracycline Hives Can take doxycycline Current Medications Current Outpatient Medications on File Prior to Visit Medication Sig sucralfate (CARAFATE) 1 gram tablet Take 1 g by mouth. cholecalciferol (VITAMIN D-3) 50 mcg (2,000 unit) tablet Take 1 tablet by mouth once daily. folic acid 1 mg tablet Take 1 tablet by mouth once daily. famotidine (PEPCID) 20 mg tablet Take 1 tablet by mouth two times a day. lisinopril (ZESTRIL) 40 mg tablet Take 1 tablet by mouth once daily. atorvastatin (LIPITOR) 10 mg tablet Take 1 tablet by mouth daily at bedtime. For cholesterol. fluticasone (FLONASE) 50 mcg/actuation nasal spray Use 2 Sprays in each nostril once daily. Rinse mouth after use. ondansetron orally disintegrating (ZOFRAN ODT) 4 mg disintegrating tablet Take 1 tablet by mouth every 6 hours as needed for nausea/vomiting. vitamin b complex (B-COMPLEX) tab Take 1 tablet by mouth once daily. No current facility-administered medications on file prior to visit. Social History Social History Tobacco Use Smoking status: Former Smokeless tobacco: Never Vaping Use Vaping status: Never Used Substance Use Topics Alcohol use: No Drug use: No Review of Symptoms REVIEW OF SYSTEMS SEE HPI EXAM: BP 146/81 Pulse 80 Resp 14 Wt 59 kg (130 lb) BMI 22.31 kg/m General Appearance: Well appearing, alert, in no acute distress, well-hydrated, well nourished. Back: Tenderness with palpation of upper right lat muscle. No obvious deformity noted. no pain to palpation of vertebrae, good flexion and extension, good range of motion, reflexes are 2+ and symmetric, motor and sensory appear to be normal. Health Maintenance List Mammogram Screening due on 10/18/2024 Shingrix Vaccine(1 of 2) due on 10/25/2024 Pneumococcal Vaccine: 50+(1 of 1 - PCV) due on 10/25/2024 Covid-19 Vaccine(2 - 2023- season) due on 06/17/2025 Hemoglobin/Hematocrit due on 09/23/2025 BP Controlled (<130/80) due on 10/04/2025 Serum Creatinine due on 10/15/2025 Annual PCP Team Chronic Disease Visit due on 10/19/2025 Depression Screening due on 10/19/2025 Bone Density Screening due on 06/13/2026 Colorectal Cancer Screening due on 03/29/2027 Diabetes Screening due on 10/15/2027 RSV Vaccine(1 - 1-dose 75+ series) due on 2028 Lipid Screening due on 05/23/2029 DTaP,Tdap,Td Vaccine(2 - Td or Tdap) due on 10/13/2031 Advance Directive Discussion Completed Hepatitis C Screening Completed Influenza Vaccine Discontinued ASSESSMENT/PLAN: 1. Muscle strain of right scapular region, initial encounter - ICD9: 840.9, ICD10: S46.911A - Continue ice/heat, tylenol as needed for pain. - TIZANIDINE 4 MG TABLET Kathy Jansen APRN.WASH WORKER documented in this encounter [facility] 10-19-2024 History of Present illness Narrative Images from the original note were not included. Terri Villar is a 69 year old female here for a Medicare wellness visit. Medicare Health Risk Assessment General Health Fair Exercise: Minutes/Day 20 minutes, walk the dog Exercise: Days/Week 3 Alcohol: Daily Use none Alcohol: Drinks/Day none Alcohol: 6 or more drinks none Feel off balance No Concerns: Teeth/Dentures No Concerns: Sexual function No Troubled by feelings None of the above Frequency: Eating healthy diet Several days ADLs requiring help None of the above Safety precautions in home/vehicle Yes Smoke, vape, chews tobacco No Difficulty hearing No Difficulty seeing No Current Providers Specialists: I have reviewed specialist-related care of the patient in the medical record. Current care team: Patient Care Team: Bridget De Luna MD as PCP - General (Family Medicine) Dr Luna-getting colonosocopy Seeing urology Dr Stoll for her pancreas. Outside specialists seen: optho in [place]. Medical/Family history review Reviewed and updated problem list, medical/surgical/family/social history, medications, and allergies. Opioid use review Opioid Medications (last 90 days) No data to display Anxiety/Depression screening PHQ-2 Score: 0 Recommendation: no further intervention at this time Cognitive screening 3/5 Cognitive screening reviewed and No further action needed (score 3-5). Functional Observation Was the patient's Timed Up & Go test unsteady or >= 12 seconds? No Advance Care Planning Patient did not wish or was not able to name a surrogate decision maker or provide an advance care plan Reviewed health maintenance issues. REVIEW OF SYSTEMS PAIN ASSESSMENT: Negative for pain, history of chronic pain, or current treatment for a chronic pain condition. RESPIRATORY: Negative for cough, hemoptysis, wheezing, COPD, dyspnea or shortness of breath CARDIOVASCULAR: Negative for chest pain, leg swelling, hypertension, CHF or palpitations GI: No nausea, vomiting, or diarrhea : No history of dysuria, frequency or incontinence SKIN: Negative for lesions, rash, and itching Measurements BP 135/76 Pulse 76 Ht 162.6 cm (5' 4) Wt 59.4 kg (131 lb) BMI 22.49 kg/m Vision Screening: Follows with optometry/ophthalmology PHYSICAL EXAM: GEN: alert NECK: supple, no lymphadenopathy, no thyromegaly HEART: regular rate, regular rhythm, no murmurs LUNGS: clear to auscultation, no wheezes or crackles, no increased WOB ABD: soft, non-distended, no masses palpated, non-tender EXT: no clubbing, no cyanosis, no edema ASSESSMENT/PLAN: 1. Medicare annual wellness visit, subsequent - ICD9: V70.0, ICD10: Z00.00 (primary diagnosis) - Counseled on healthy diet and regular exercise 2. Screening for depression - ICD9: V79.0, ICD10: Z13.31 - DEPRESSION SCREENING 3. Chronic kidney disease, stage 3a (HCC) - ICD9: 585.3, ICD10: N18.31 - stable 4. Primary hypertension - ICD9: 401.9, ICD10: I10 - Controlled - Continue current medications 5. Mixed hyperlipidemia - ICD9: 272.2, ICD10: E78.2 - Controlled - Continue current medications 6. Thyroid nodule - ICD9: 241.0, ICD10: E04.1 - up to date on testing. 7. DDD (degenerative disc disease), cervical - ICD9: 722.4, ICD10: M50.30 - stable. Follow progress. 8. Degeneration of intervertebral disc of lumbar region, unspecified whether pain present - ICD9: 722.52, ICD10: M51.369 - stable. Follow progress. 9. Osteoporosis without current pathological fracture, unspecified osteoporosis type - ICD9: 733.00, ICD10: M81.0 - Reviewed the need for Calcium and Vitamin D supplements and weight bearing exercise as tolerated 10. Anxiety - ICD9: 300.00, ICD10: F41.9 Stable. Bridget De Luna MD documented in this encounter [facility] 10-18-2024 Telephone encounter Note See TE. [facility] 10-18-2024 Miscellaneous Notes See TE. documented in this encounter [facility] 10-18-2024 Telephone encounter Note MC message sent. Isaac Sanchez LPN [facility] 10-18-2024 Miscellaneous Notes MC message sent. Isaac Sanchez LPN Can please let patient know that I received her lab results. Her folic acid is still low. Has she been taking the daily folic acid? If so, lets go ahead and increase this to twice daily. Recheck a level in 1 month. Her vitamin d is a little low. Lets have her start vitamin D daily. I sent this into the pharmacy. Please recheck a level in 3 months. Her magnesium level is still just a point elevated. Please ensure that she is not taking any magnesium supplementation. Herlinda Jett APRN.WILFREDO documented in this encounter [facility] 10-18-2024 Telephone encounter Note Can please let patient know that I received her lab results. Her folic acid is still low. Has she been taking the daily folic acid? If so, lets go ahead and increase this to twice daily. Recheck a level in 1 month. Her vitamin d is a little low. Lets have her start vitamin D daily. I sent this into the pharmacy. Please recheck a level in 3 months. Her magnesium level is still just a point elevated. Please ensure that she is not taking any magnesium supplementation. Herlinda Jett APRN.WASH WORKER [facility] 10-15-2024 Herlinda Brown APRN.CNP - 10/15/2024 11:19 AM EST Get labs drawn. Continue tylenol. Can continue the topicals (Aspercreme). Warm compresses. Gentle stretches. documented in this encounter [facility] 10-15-2024 History of Present illness Narrative This is a 69 year old female who presents today with: Patient presents with: Acute Visit: Bilateral lower leg pain/cramping x2 days HISTORY OF PRESENT ILLNESS: Terri Villar is a 69 year old female. Patient presents with: Acute Visit: Bilateral lower leg pain/cramping x2 days Pt presents today for complaint of leg pain. Refers that she has been getting some bone pain in the bilateral shins. She has been getting some cramping in the calves. Hasn't been doing anything out of the ordinary. Started yesterday morning. Has been using a heating pad. PAST MEDICAL HISTORY: PAST MEDICAL HISTORY Diagnosis Date Chronic kidney disease, stage III (moderate) (HCC) DDD (degenerative disc disease), cervical Dr Navjot Folate deficiency Gastritis GERD (gastroesophageal reflux disease) History of COVID-19 07/12/202106/2021 HLD (hyperlipidemia) HTN (hypertension) MTHFR mutation Osteoarthritis Pain, abdominal, RLQ Pericardial effusion RUQ pain Thyroid nodule PAST SURGICAL HISTORY Procedure Laterality Date DELIVERY ONLY 10/02/1984 , low transverse ALLERGIES Amoxicillin, Asa [Salicylates], Codeine, Cortizone-10 [Hydrocortisone], Cymbalta [Duloxetine], Dolobid [Diflunisal], Duricef [Cefadroxil], Dye, Entex La [Phenylephrine-Guaifenesin], Erythromycin, Flu Vac 2015 (65 Up)-Mf59c(Pf), Keflex [Cephalexin], Levaquin [Levofloxacin], Macrobid [Nitrofurantoin Monohyd/M-Cryst], Mobic [Meloxicam], Morphine, Pantoprazole, Penicillins, Prednisolone, Prilosec [Omeprazole], Septra [Sulfamethoxazole-Trimethoprim], Sulfa (Sulfonamide Antibiotics), and Tetracycline MEDICATIONS Current Outpatient Medications Medication Sig tamsulosin (FLOMAX) 0.4 mg Take 1 capsule by mouth daily at bedtime. methocarbamol (ROBAXIN) 500 mg tablet Take 1 tablet by mouth three times a day. folic acid 1 mg tablet Take 1 tablet by mouth once daily. famotidine (PEPCID) 20 mg tablet Take 1 tablet by mouth two times a day. lisinopril (ZESTRIL) 40 mg tablet Take 1 tablet by mouth once daily. atorvastatin (LIPITOR) 10 mg tablet Take 1 tablet by mouth daily at bedtime. For cholesterol. fluticasone (FLONASE) 50 mcg/actuation nasal spray Use 2 Sprays in each nostril once daily. Rinse mouth after use. ondansetron orally disintegrating (ZOFRAN ODT) 4 mg disintegrating tablet Take 1 tablet by mouth every 6 hours as needed for nausea/vomiting. vitamin b complex (B-COMPLEX) tab Take 1 tablet by mouth once daily. No current facility-administered medications for this visit. FAMILY HISTORY Problem Relation Age of Onset Breast Cancer Mother 74 Heart Brother Diabetes Paternal Grandmother Social History Tobacco Use Smoking status: Former Smokeless tobacco: Never Vaping Use Vaping status: Never Used Substance Use Topics Alcohol use: No Drug use: No EXAM: BP 138/84 Pulse 94 Resp 16 SpO2 96% PHYSICAL EXAM: General Appearance: Well appearing, alert, in no acute distress, well-hydrated, well nourished.. Skin: Skin color, texture, turgor normal, no suspicious rashes or lesions. Head: Normocephalic, no masses, lesions, tenderness or abnormalities. Eyes: Anicteric sclera. Pupils are equally round and reactive to light. Extraocular movements are intact. . Lungs: Lungs clear to auscultation. No wheezing, rhonchi, rales.. Heart: RRR without murmur, gallop, or rubs. No ectopy. Extremities: No deformities, edema, skin discoloration, clubbing or cyanosis. Good capillary refill. No redness/swelling/increased warmth. Negative ever's. Neurologic: Gait normal. ASSESSMENT/PLAN: 1. Pain in both lower legs - ICD9: 729.5, ICD10: M79.661, M79.662 (primary diagnosis) Hx of deficiency and reports bone pain. Will get vit d level. - VITAMIN D 25 HYDROXY 2. Folate deficiency - ICD9: 266.2, ICD10: E53.8 recheck - FOLATE, SERUM 3. Muscle cramps - ICD9: 729.82, ICD10: R25.2 Hx of high mag level. Stay well hydrated. Warm compresses. Gentle stretching. Topicals. - MAGNESIUM - BASIC METABOLIC PANEL Discussed treatment plan and patient voices understanding. Patient's questions answered appropriately. Medications and potential side effects were discussed and patient voices understanding. Return to the office as scheduled or as needed for worsening/no improvement. Herlinda Jett APRN.WILFREDO documented in this encounter [facility] 10-10-2024 Telephone encounter Note Ok. Thank you for the update. Xray did not show a stone. If you are feeling better, probably don't need it. [facility] 10-10-2024 Miscellaneous Notes Ok. Thank you for the update. Xray did not show a stone. If you are feeling better, probably don't need it. documented in this encounter [facility] 10-09-2024 History of Present illness Narrative Chief Complaint Patient presents with: nose bleeds Sinus Problem: Pain and congestion HPI Terri Villar is a 69 year old female who presents here today for Above Complaints. Patient here complaining of 2 episodes of nosebleeds yesterday and 1 episode today when blowing her nose. Coming from both nares. Moderate amount of blood on the tissue. States that nose did not continue to bleed after blowing her nose. No thick green sputum with blowing her nose. Has been putting vaseline inside her nostrils this morning to help prevent bleeding. Notes that she has been on flonase PRN. Admits to pressure over her maxillary sinuses which started this morning along with nasal congestion, headache, Denies fever/chills, rhinorrhea, fatigue, SOB, lightheadedness/dizziness, other bleeding or bruising symptoms, cough, wheezing, sore throat, ear pain/fullness, swollen glands. Past medical history, appointments, medications, allergies reviewed. Previous Medical History PAST MEDICAL HISTORY Diagnosis Date Chronic kidney disease, stage III (moderate) (HCC) DDD (degenerative disc disease), cervical Dr Navjot Folate deficiency Gastritis GERD (gastroesophageal reflux disease) History of COVID-19 07/12/202106/2021 HLD (hyperlipidemia) HTN (hypertension) MTHFR mutation Osteoarthritis Pain, abdominal, RLQ Pericardial effusion RUQ pain Thyroid nodule Previous Surgical History PAST SURGICAL HISTORY Procedure Laterality Date DELIVERY ONLY 10/02/1984 , low transverse Family History FAMILY HISTORY Problem Relation Age of Onset Breast Cancer Mother 74 Heart Brother Diabetes Paternal Grandmother Patient Allergies ALLERGIES Allergen Reactions Amoxicillin Itching Asa [Salicylates] Itching Codeine Itching Cortizone-10 [[place]* Itching Cymbalta [Duloxetin* Intolerance One pill: bruning all over Dolobid [Diflunisal] Itching Duricef [Cefadroxil] Itching Dye Shortness of Breath Ct dye. Including rash Entex La [Phenyleph* Itching Erythromycin Itching Flu Vac 2014 (65 Up* Shortness of Breath Keflex [Cephalexin] Itching Levaquin [Levofloxa* Other: See Comments itching Macrobid [Nitrofura* Other: See Comments Fast heart rate Mobic [Meloxicam] Itching Morphine Itching Pantoprazole Itching Penicillins Hives Prednisolone Other: See Comments Elevated blood pressure. Has done well with medrol dose april. Prilosec [Omeprazol* Itching Septra [Sulfamethox* Hives Sulfa (Sulfonamide * Hives Tetracycline Hives Can take doxycycline Current Medications Current Outpatient Medications on File Prior to Visit Medication Sig tamsulosin (FLOMAX) 0.4 mg Take 1 capsule by mouth daily at bedtime. methocarbamol (ROBAXIN) 500 mg tablet Take 1 tablet by mouth three times a day. folic acid 1 mg tablet Take 1 tablet by mouth once daily. famotidine (PEPCID) 20 mg tablet Take 1 tablet by mouth two times a day. lisinopril (ZESTRIL) 40 mg tablet Take 1 tablet by mouth once daily. atorvastatin (LIPITOR) 10 mg tablet Take 1 tablet by mouth daily at bedtime. For cholesterol. fluticasone (FLONASE) 50 mcg/actuation nasal spray Use 2 Sprays in each nostril once daily. Rinse mouth after use. ondansetron orally disintegrating (ZOFRAN ODT) 4 mg disintegrating tablet Take 1 tablet by mouth every 6 hours as needed for nausea/vomiting. vitamin b complex (B-COMPLEX) tab Take 1 tablet by mouth once daily. No current facility-administered medications on file prior to visit. Social History Social History Tobacco Use Smoking status: Former Smokeless tobacco: Never Vaping Use Vaping status: Never Used Substance Use Topics Alcohol use: No Drug use: No Review of Symptoms REVIEW OF SYSTEMS See HPI EXAM: BP 130/82 Pulse 92 Temp 36.6 C (97.9 F) Resp 16 Wt 59.1 kg (130 lb 3.2 oz) SpO2 98% BMI 22.35 kg/m General Appearance: Well appearing, alert, in no acute distress, well-hydrated, well nourished.. Skin: Skin color, texture, turgor normal, no suspicious rashes or lesions. Head: Normocephalic, no masses, lesions, tenderness or abnormalities. Eyes: Anicteric sclera. Pupils are equally round and reactive to light. Extraocular movements are intact. . Ears: External ears normal, canals clear. TMs normal. Nose/Sinuses: crusted blood noted on right anterior nares. Left nostril normal. No active bleeding. Mild TTP over maxillary sinuses. Oropharynx: Lips, mucosa, and tongue normal, teeth and gums normal, oropharynx normal. Neck: Supple, no adenopathy; thyroid symmetric, normal size, no bruits. Lungs: Lungs clear to auscultation. No wheezing, rhonchi, rales.. Heart: RRR without murmur, gallop, or rubs. No ectopy. Health Maintenance List Advance Directive Discussion due on 10/02/2024 Mammogram Screening due on 10/18/2024 Shingrix Vaccine(1 of 2) due on 10/25/2024 Pneumococcal Vaccine: 50+(1 of 1 - PCV) due on 10/25/2024 Covid-19 Vaccine(2 - ) due on 06/17/2025 Depression Screening due on 01/04/2025 Annual PCP Team Chronic Disease Visit due on 09/23/2025 Serum Creatinine due on 09/23/2025 Hemoglobin/Hematocrit due on 09/23/2025 BP Controlled (<130/80) due on 10/04/2025 Bone Density Screening due on 06/13/2026 Colorectal Cancer Screening due on 03/29/2027 Diabetes Screening due on 09/23/2027 RSV Vaccine(1 - 1-dose 75+ series) due on 2028 Lipid Screening due on 05/23/2029 DTaP,Tdap,Td Vaccine(2 - Td or Tdap) due on 10/13/2031 Hepatitis C Screening Completed Influenza Vaccine Discontinued ASSESSMENT/PLAN: 1. Epistaxis - ICD9: 784.7, ICD10: R04.0 I suspect her episodes of bleeding are related to cold/dry air and blowing her nose harshly. Discussed use of humidifier at home and may use vaseline or abx ointment 2-3 times daily as barrier. If she develops worsening bleeding symptoms of sinus infection should call our office immediately. Red flags for re-assessment reviewed with patient in detail. Ryan Dalton MD documented in this encounter [facility] 10-04-2024 History of Present illness Narrative Radiology Service Progress Note PATIENT NAME: Terri Villar DATE OF SERVICE: October 04, 2024 TIME: 9:36 AM PATIENT IDENTITY VERIFICATION COMPLETED USING TWO (2) IDENTIFIERS: Name and Date of confirmed by patient verbally. FALL SCREENING: Has the patient had 2 falls in the last year or 1 fall with injury or currently using an Ambulatory Assistive Device (Walker, Cane, Wheelchair, Crutches, etc.)? No PATIENT GENDER DATA: Female. status: : No status: NO. PATIENT RELEVANT IMPLANT DATA REVIEWED: Not Applicable PATIENT PRESENTS WITH AN IMPLANTABLE OR ATTACHED AUDIO PRODUCTION MANAGER: No RADIOLOGY DEPARTMENT: General X-ray: Exam(s) Completed: Abdomen X-Ray: Abdomen PERIPHERAL IV DATA: Not applicable SIGNED BY: RT Russell(R) October 04, 2024 9:36 AM documented in this encounter [facility] 10-04-2024 Instructions Daylin Mendenhall APRN.WILFREDO - 10/04/2024 9:25 AM EST - UA DIP, URINE (POC)- trace blood in urine - Start Tamsulosin for possible stone - Xray abd. Looking for ureteral stone - CT scan if no stone located, no contrast d/t CKD stage 3A - Methocarbamol 500 mg 3 x day for pain documented in this encounter [facility] 10-04-2024 History of Present illness Narrative This is a 69 year old female who presents today with: Patient presents with: Pain: Pain right side rib pain HISTORY OF PRESENT ILLNESS: Terri Villar is a 69 year old female. Patient presents with: Pain: Pain right side rib pain Right upper back hurting. Took some Tylenol. Did lift a 10 lb back of hamburger yesterday. Denies cough. No fever or chills. has recently been sick. Not unusually tired. No burning with urination. Started yesterday, ached all night. Remote Hx of nephrolithiasis PAST MEDICAL HISTORY: PAST MEDICAL HISTORY Diagnosis Date Chronic kidney disease, stage III (moderate) (HCC) DDD (degenerative disc disease), cervical Dr Knapic Folate deficiency Gastritis GERD (gastroesophageal reflux disease) History of COVID-19 07/12/202106/2021 HLD (hyperlipidemia) HTN (hypertension) MTHFR mutation Osteoarthritis Pain, abdominal, RLQ Pericardial effusion RUQ pain Thyroid nodule PAST SURGICAL HISTORY Procedure Laterality Date DELIVERY ONLY 10/02/1984 , low transverse ALLERGIES Amoxicillin, Asa [Salicylates], Codeine, Cortizone-10 [Hydrocortisone], Cymbalta [Duloxetine], Dolobid [Diflunisal], Duricef [Cefadroxil], Dye, Entex La [Phenylephrine-Guaifenesin], Erythromycin, Flu Vac 2014 (65 Up)-Mf59c(Pf), Keflex [Cephalexin], Levaquin [Levofloxacin], Macrobid [Nitrofurantoin Monohyd/M-Cryst], Mobic [Meloxicam], Morphine, Pantoprazole, Penicillins, Prednisolone, Prilosec [Omeprazole], Septra [Sulfamethoxazole-Trimethoprim], Sulfa (Sulfonamide Antibiotics), and Tetracycline MEDICATIONS Current Outpatient Medications Medication Sig folic acid 1 mg tablet Take 1 tablet by mouth once daily. famotidine (PEPCID) 20 mg tablet Take 1 tablet by mouth two times a day. lisinopril (ZESTRIL) 40 mg tablet Take 1 tablet by mouth once daily. atorvastatin (LIPITOR) 10 mg tablet Take 1 tablet by mouth daily at bedtime. For cholesterol. fluticasone (FLONASE) 50 mcg/actuation nasal spray Use 2 Sprays in each nostril once daily. Rinse mouth after use. ondansetron orally disintegrating (ZOFRAN ODT) 4 mg disintegrating tablet Take 1 tablet by mouth every 6 hours as needed for nausea/vomiting. vitamin b complex (B-COMPLEX) tab Take 1 tablet by mouth once daily. doxycycline hyclate (VIBRAMYCIN) 100 mg capsule Take 1 capsule (100 mg) by mouth two times a day for 10 days. No current facility-administered medications for this visit. FAMILY HISTORY Problem Relation Age of Onset Breast Cancer Mother 74 Heart Brother Diabetes Paternal Grandmother Social History Tobacco Use Smoking status: Former Smokeless tobacco: Never Vaping Use Vaping status: Never Used Substance Use Topics Alcohol use: No Drug use: No EXAM: BP 120/82 Pulse 83 Resp 16 Wt 57.2 kg (126 lb) SpO2 98% BMI 21.63 kg/m PHYSICAL EXAM: Physical Exam Vitals reviewed. Constitutional: Appearance: Normal appearance. Neck: Vascular: No carotid bruit. Cardiovascular: Rate and Rhythm: Normal rate and regular rhythm. Pulses: Normal pulses. Heart sounds: Normal heart sounds. Pulmonary: Effort: Pulmonary effort is normal. Breath sounds: Normal breath sounds. Abdominal: General: Bowel sounds are normal. Palpations: Abdomen is soft. Tenderness: There is right CVA tenderness. Musculoskeletal: General: Normal range of motion. Lymphadenopathy: Cervical: No cervical adenopathy. Skin: General: Skin is warm and dry. Neurological: Mental Status: She is alert and oriented to person, place, and time. LABS: urine dip ASSESSMENT/PLAN: 1. Flank pain - ICD9: 789.09, ICD10: R10.9 Differential Diagnosis includes Lactose intolerance, Kidney stones/colic, and musculoskeletal strain - UA DIP, URINE (POC)- trace blood in urine - Start Tamsulosin for possible stone - Xray abd. Looking for ureteral stone - CT scan if no stone located, no contrast d/t CKD stage 3A - Methocarbamol 500 mg 3 x day for pain Discussed treatment plan and patient voices understanding. Patient's questions answered appropriately. Medications and potential side effects were discussed and patient voices understanding. Return to the office as scheduled or as needed for worsening/no improvement. Daylin Mendenhall APRN.WILFREDO documented in this encounter [facility] 09-27-2024 Instructions Daylin Mendenhall APRN.CNP - 09/27/2024 1:53 PM EST - DOXYCYCLINE HYCLATE 100 MG CAPSULE - saline nasal spray frequently while on antibiotic - see Dr. De Luna 10/22/24 documented in this encounter [facility] 09-27-2024 History of Present illness Narrative This is a 69 year old female who presents today with: Patient presents with: Acute Visit: Headache, nausea, congestion HISTORY OF PRESENT ILLNESS: Terri Villar is a 69 year old female. Patient presents with: Acute Visit: Headache, nausea, congestion Sinus pressure and queasy in stomach No fever or chills + headache + body aches Some nausea, + vomiting No cough or wheeze PAST MEDICAL HISTORY: PAST MEDICAL HISTORY Diagnosis Date Chronic kidney disease, stage III (moderate) (HCC) DDD (degenerative disc disease), cervical Dr Morfin Folate deficiency Gastritis GERD (gastroesophageal reflux disease) History of COVID-19 07/12/202106/2021 HLD (hyperlipidemia) HTN (hypertension) MTHFR mutation Osteoarthritis Pain, abdominal, RLQ Pericardial effusion RUQ pain Thyroid nodule PAST SURGICAL HISTORY Procedure Laterality Date DELIVERY ONLY 10/02/1984 , low transverse ALLERGIES Amoxicillin, Asa [Salicylates], Codeine, Cortizone-10 [Hydrocortisone], Cymbalta [Duloxetine], Dolobid [Diflunisal], Duricef [Cefadroxil], Dye, Entex La [Phenylephrine-Guaifenesin], Erythromycin, Flu Vac 2014 (65 Up)-Mf59c(Pf), Keflex [Cephalexin], Levaquin [Levofloxacin], Macrobid [Nitrofurantoin Monohyd/M-Cryst], Mobic [Meloxicam], Morphine, Pantoprazole, Penicillins, Prednisolone, Prilosec [Omeprazole], Septra [Sulfamethoxazole-Trimethoprim], Sulfa (Sulfonamide Antibiotics), and Tetracycline MEDICATIONS Current Outpatient Medications Medication Sig folic acid 1 mg tablet Take 1 tablet by mouth once daily. famotidine (PEPCID) 20 mg tablet Take 1 tablet by mouth two times a day. lisinopril (ZESTRIL) 40 mg tablet Take 1 tablet by mouth once daily. atorvastatin (LIPITOR) 10 mg tablet Take 1 tablet by mouth daily at bedtime. For cholesterol. fluticasone (FLONASE) 50 mcg/actuation nasal spray Use 2 Sprays in each nostril once daily. Rinse mouth after use. ondansetron orally disintegrating (ZOFRAN ODT) 4 mg disintegrating tablet Take 1 tablet by mouth every 6 hours as needed for nausea/vomiting. vitamin b complex (B-COMPLEX) tab Take 1 tablet by mouth once daily. No current facility-administered medications for this visit. FAMILY HISTORY Problem Relation Age of Onset Breast Cancer Mother 74 Heart Brother Diabetes Paternal Grandmother Social History Tobacco Use Smoking status: Former Smokeless tobacco: Never Vaping Use Vaping status: Never Used Substance Use Topics Alcohol use: No Drug use: No EXAM: BP 130/76 Pulse 82 Temp 36.8 C (98.2 F) (Tympanic) Resp 16 Wt 57.6 kg (127 lb) SpO2 98% BMI 21.80 kg/m PHYSICAL EXAM: Physical Exam Vitals reviewed. Constitutional: Appearance: Normal appearance. HENT: Head: Normocephalic. Right Ear: External ear normal. There is impacted cerumen. Left Ear: Tympanic membrane, ear canal and external ear normal. There is no impacted cerumen. Nose: Congestion and rhinorrhea present. Comments: Purulent matter in nasal passsage Sinus pressure Mouth/Throat: Pharynx: No oropharyngeal exudate or posterior oropharyngeal erythema. Cardiovascular: Rate and Rhythm: Normal rate and regular rhythm. Pulses: Normal pulses. Heart sounds: Normal heart sounds. Pulmonary: Effort: Pulmonary effort is normal. Breath sounds: Normal breath sounds. Abdominal: General: Bowel sounds are normal. Palpations: Abdomen is soft. Musculoskeletal: General: Normal range of motion. Right lower leg: No edema. Left lower leg: No edema. Skin: General: Skin is warm and dry. Neurological: Mental Status: She is alert and oriented to person, place, and time. Psychiatric: Mood and Affect: Mood normal. Behavior: Behavior normal. LABS: ASSESSMENT/PLAN: 1. Acute maxillary sinusitis, recurrence not specified - ICD9: 461.0, ICD10: J01.00 - Will begin treatment with Doxycycline - DOXYCYCLINE HYCLATE 100 MG CAPSULE - saline nasal spray frequently while on antibiotic Discussed treatment plan and patient voices understanding. Patient's questions answered appropriately. Medications and potential side effects were discussed and patient voices understanding. Return to the office as scheduled or as needed for worsening/no improvement. Daylin Mendenhall APRN.WASH WORKER documented in this encounter [facility] 09-23-2024 History of Present illness Narrative Patient presents with: Abdominal Pain HPI: Patient presents today for office visit for follow up. Patient complains of: upper abd. Feels like cramping. Short jabs. Duration: since yesterday Denies nausea diarrhea or vomiting Tried heating pad and tylenol Using her pepcid which help sometimes. Has heartburn. Worse over the weekend. Wonders if needs new meds. Getting egd in next month. No bloody or black stools. No urinary issues. No diet changes. Has had issues with ppis. She has already tried carafate. MEDICATIONS: Current Outpatient Medications Medication Sig conjugated estrogens (PREMARIN) vaginal cream Use 2 g vaginally two times a week. methocarbamol (ROBAXIN) 750 mg tablet Take 1 tablet by mouth every 6 hours as needed (Pain). folic acid 1 mg tablet Take 1 tablet by mouth once daily. traZODone (DESYREL) 50 mg tablet Take 1 tablet by mouth daily at bedtime. famotidine (PEPCID) 20 mg tablet Take 1 tablet by mouth two times a day. lisinopril (ZESTRIL) 40 mg tablet Take 1 tablet by mouth once daily. atorvastatin (LIPITOR) 10 mg tablet Take 1 tablet by mouth daily at bedtime. For cholesterol. fluticasone (FLONASE) 50 mcg/actuation nasal spray Use 2 Sprays in each nostril once daily. Rinse mouth after use. ondansetron orally disintegrating (ZOFRAN ODT) 4 mg disintegrating tablet Take 1 tablet by mouth every 6 hours as needed for nausea/vomiting. vitamin b complex (B-COMPLEX) tab Take 1 tablet by mouth once daily. No current facility-administered medications for this visit. ALLERGIES: ALLERGIES Allergen Reactions Amoxicillin Itching Asa [Salicylates] Itching Codeine Itching Cortizone-10 [[place]* Itching Cymbalta [Duloxetin* Intolerance One pill: bruning all over Dolobid [Diflunisal] Itching Duricef [Cefadroxil] Itching Dye Shortness of Breath Ct dye. Including rash Entex La [Phenyleph* Itching Erythromycin Itching Flu Vac 2014 (65 Up* Shortness of Breath Keflex [Cephalexin] Itching Levaquin [Levofloxa* Other: See Comments itching Macrobid [Nitrofura* Other: See Comments Fast heart rate Mobic [Meloxicam] Itching Morphine Itching Pantoprazole Itching Penicillins Hives Prednisolone Other: See Comments Elevated blood pressure. Has done well with medrol dose april. Prilosec [Omeprazol* Itching Septra [Sulfamethox* Hives Sulfa (Sulfonamide * Hives Tetracycline Hives Can take doxycycline PAST MEDICAL HISTORY Diagnosis Date Chronic kidney disease, stage III (moderate) (HCC) DDD (degenerative disc disease), cervical Dr Navjot Folate deficiency Gastritis GERD (gastroesophageal reflux disease) History of COVID-19 07/12/202106/2021 HLD (hyperlipidemia) HTN (hypertension) MTHFR mutation Osteoarthritis Pain, abdominal, RLQ Pericardial effusion RUQ pain Thyroid nodule PAST SURGICAL HISTORY Procedure Laterality Date DELIVERY ONLY 10/02/1984 , low transverse FAMILY HISTORY Problem Relation Age of Onset Breast Cancer Mother 74 Heart Brother Diabetes Paternal Grandmother Social History Tobacco Use Smoking status: Former Smokeless tobacco: Never Vaping Use Vaping status: Never Used Substance Use Topics Alcohol use: No Drug use: No Reviewed current medications, allergies, past medical history, surgical history, family history and social history today. REVIEW OF SYSTEMS All other reviewed and negative other than HPI. VITALS: BP 142/82 Pulse 87 Wt 57.6 kg (127 lb) SpO2 97% BMI 21.80 kg/m Last 4 Encounter Wt Readings: Date: Wt: 09/18/2024 59 kg (130 lb) 09/13/2024 58.1 kg (128 lb) 09/09/2024 57.2 kg (126 lb 1.7 oz) 09/02/2024 56.8 kg (125 lb 3.5 oz) PHYSICAL EXAMINATION: General appearance: Well appearing, alert, in no acute distress, well-hydrated, well nourished. Skin: Skin color, texture, turgor normal, no suspicious rashes or lesions Head: Normocephalic, no masses, lesions, tenderness or abnormalities Lungs: Lungs clear to auscultation. No wheezing, rhonchi, rales Heart: RRR without murmur, gallop, or rubs. No ectopy Abdomen: Normal abdominal exam, Abdomen soft, non-tender. Bowel sounds normal. No masses, organomegaly Extremities: No deformities, edema, skin discoloration, clubbing or cyanosis. Good capillary refill. ASSESSMENT/PLAN: 1. Gastroesophageal reflux disease without esophagitis - ICD9: 530.81, ICD10: K21.9 (primary diagnosis) - given her med intolerances, continue pepcid. Check labs. Get egd as scheduled. ? Even gastro. 2. Primary hypertension - ICD9: 401.9, ICD10: I10 -slightly up. Will follow at [facility]. 3. Epigastric discomfort Check labs. Bridget De Luna MD Medical Decision Making: Problems: Moderate: Acute illness with systemic symptoms Data: Unique test(s) ordered: 3+ Risk: Moderate: Moderate risk from testing/treatment Medical Decision Making Level: 4 - Moderate documented in this encounter [facility] 09-18-2024 History of Present illness Narrative Chief Complaint Patient presents with: Same Day Appointment: back and rib pain since this am, no injury noted, took tylenol and heating pad HPI Terri Villar is a 69 year old female who presents here today for Above Complaints.. Patient complaining of intermittent bilateral flank pain which started this morning. Started suddenly while watching TV this morning. Described as sharp/nagging, up to 8/10, without radiation down her back or into abdomen. No exacerbating factors. Treating with tylenol and heating pad which does take the edge off. Denies fall/injury, fever/chills, nausea, vomiting, diarrhea, constipation, urinary symptoms, bruising, rash. Symptoms stable since this morning. Past medical history, appointments, medications, allergies reviewed. Previous Medical History PAST MEDICAL HISTORY Diagnosis Date Chronic kidney disease, stage III (moderate) (HCC) DDD (degenerative disc disease), cervical Dr Knapic Folate deficiency Gastritis GERD (gastroesophageal reflux disease) History of COVID-19 07/12/202106/2021 HLD (hyperlipidemia) HTN (hypertension) MTHFR mutation Osteoarthritis Pain, abdominal, RLQ Pericardial effusion RUQ pain Thyroid nodule Previous Surgical History PAST SURGICAL HISTORY Procedure Laterality Date DELIVERY ONLY 10/02/1984 , low transverse Family History FAMILY HISTORY Problem Relation Age of Onset Breast Cancer Mother 74 Heart Brother Diabetes Paternal Grandmother Patient Allergies ALLERGIES Allergen Reactions Amoxicillin Itching Asa [Salicylates] Itching Codeine Itching Cortizone-10 [[place]* Itching Cymbalta [Duloxetin* Intolerance One pill: bruning all over Dolobid [Diflunisal] Itching Duricef [Cefadroxil] Itching Dye Shortness of Breath Ct dye. Including rash Entex La [Phenyleph* Itching Erythromycin Itching Flu Vac 2014 (65 Up* Shortness of Breath Keflex [Cephalexin] Itching Levaquin [Levofloxa* Other: See Comments itching Macrobid [Nitrofura* Other: See Comments Fast heart rate Mobic [Meloxicam] Itching Morphine Itching Pantoprazole Itching Penicillins Hives Prednisolone Other: See Comments Elevated blood pressure. Has done well with medrol dose april. Prilosec [Omeprazol* Itching Septra [Sulfamethox* Hives Sulfa (Sulfonamide * Hives Tetracycline Hives Can take doxycycline Current Medications Current Outpatient Medications on File Prior to Visit Medication Sig conjugated estrogens (PREMARIN) vaginal cream Use 2 g vaginally two times a week. methocarbamol (ROBAXIN) 750 mg tablet Take 1 tablet by mouth every 6 hours as needed (Pain). folic acid 1 mg tablet Take 1 tablet by mouth once daily. traZODone (DESYREL) 50 mg tablet Take 1 tablet by mouth daily at bedtime. famotidine (PEPCID) 20 mg tablet Take 1 tablet by mouth two times a day. lisinopril (ZESTRIL) 40 mg tablet Take 1 tablet by mouth once daily. atorvastatin (LIPITOR) 10 mg tablet Take 1 tablet by mouth daily at bedtime. For cholesterol. fluticasone (FLONASE) 50 mcg/actuation nasal spray Use 2 Sprays in each nostril once daily. Rinse mouth after use. ondansetron orally disintegrating (ZOFRAN ODT) 4 mg disintegrating tablet Take 1 tablet by mouth every 6 hours as needed for nausea/vomiting. vitamin b complex (B-COMPLEX) tab Take 1 tablet by mouth once daily. No current facility-administered medications on file prior to visit. Social History Social History Tobacco Use Smoking status: Former Smokeless tobacco: Never Vaping Use Vaping status: Never Used Substance Use Topics Alcohol use: No Drug use: No Review of Symptoms REVIEW OF SYSTEMS See HPI EXAM: BP 134/74 (BP Site: Left Arm, BP Position: Sitting, BP Cuff Size: Large Adult) Pulse 87 Temp 36.9 C (98.4 F) Resp 12 Ht 162.6 cm (5' 4) Wt 59 kg (130 lb) SpO2 97% BMI 22.31 kg/m General Appearance: Well appearing, alert, in no acute distress, well-hydrated, well nourished.. Skin: Skin color, texture, turgor normal, no suspicious rashes or lesions. Lungs: Lungs clear to auscultation. No wheezing, rhonchi, rales.. Heart: RRR without murmur, gallop, or rubs. No ectopy. Abdomen: Normal abdominal exam, Abdomen soft, non-tender. Bowel sounds normal. No masses, organomegaly, Negative CVA tenderness. Musculoskeletal: Positive for TTP over mid thoracic paraspinal muscles bilaterally which does reproduce her pain. No TTP over spine. No bruising or swelling.normal ROM of spine. Health Maintenance List BP Controlled (<130/80) due on 09/07/2023 Mammogram Screening due on 10/18/2024 Shingrix Vaccine(1 of 2) due on 10/25/2024 Pneumococcal Vaccine: 50+(1 of 1 - PCV) due on 10/25/2024 Covid-19 Vaccine(2 - season) due on 06/17/2025 Depression Screening due on 01/04/2025 Serum Creatinine due on 06/11/2025 Annual PCP Team Chronic Disease Visit due on 09/09/2025 Bone Density Screening due on 06/13/2026 Colorectal Cancer Screening due on 03/29/2027 Diabetes Screening due on 06/11/2027 RSV Vaccine(1 - 1-dose 75+ series) due on 2028 Lipid Screening due on 05/23/2029 DTaP,Tdap,Td Vaccine(2 - Td or Tdap) due on 10/13/2031 Advance Directive Discussion Completed Hepatitis C Screening Completed Influenza Vaccine Discontinued Data reviewed Latest Ref Rng 09/18/2024 GLUCOSE UA (POCT) Negative mg/dL Negative BILIRUBIN UA (POCT) Negative Negative KETONE UA (POCT) Negative mg/dL Negative SPECIFIC GRAVITY UA (POCT) 1.005 - 1.030 1.015 HEMOGLOBIN/BLOOD UA (POCT) Negative Trace-intact ! PH UA (POCT) 4.5 - 8.0 7.5 PROTEIN UA (POCT) Negative mg/dL Negative UROBILINOGEN UA (POCT) Normal E.U./dL 0.2 NITRITE UA (POCT) Negative Negative LEUKOCYTES UA (POCT) Negative Negative COLOR UA (POCT) Yellow CLARITY UA (POCT) Clear Legend: ! Abnormal ASSESSMENT/PLAN: 1. Bilateral flank pain - ICD9: 789.09, ICD10: R10.9 UA positive for trace blood which appears chronic. No signs of infection and I doubt kidney stone with exam consistent with muscle strain. Discussed treating with ice/heat, tylenol OTC, and home exercises provided. Red flags for re-assessment reviewed with patient in detail. F/u in 1-2 weeks if not improving. - UA DIP, URINE (POC) Ryan Dalton MD documented in this encounter [facility] 09-13-2024 Instructions Daylin Mendenhall APRN.CNP - 09/13/2024 11:48 AM EST 1) See Dr. De Luna in November as scheduled 2) Methocarbamol 750 mg 3 x day as needed for scapular strain documented in this encounter [facility] 09-13-2024 History of Present illness Narrative This is a 69 year old female who presents today with: Patient presents with: Pain: Right shoulder pain since Monday, no injury HISTORY OF PRESENT ILLNESS: Terri Villar is a 69 year old female. Patient presents with: Pain: Right shoulder pain since Monday, no injury Right upper back- upper ridge of scapula tender to palpate. Hurting for 3 days. Hard to sleep at night. No cough. No fever or chills. Using heating pad and aspercreme PAST MEDICAL HISTORY: PAST MEDICAL HISTORY Diagnosis Date Chronic kidney disease, stage III (moderate) (HCC) DDD (degenerative disc disease), cervical Dr Morfin Folate deficiency Gastritis GERD (gastroesophageal reflux disease) History of COVID-19 07/12/202106/2021 HLD (hyperlipidemia) HTN (hypertension) MTHFR mutation Osteoarthritis Pain, abdominal, RLQ Pericardial effusion RUQ pain Thyroid nodule PAST SURGICAL HISTORY Procedure Laterality Date DELIVERY ONLY 10/02/1984 , low transverse ALLERGIES Amoxicillin, Asa [Salicylates], Codeine, Cortizone-10 [Hydrocortisone], Cymbalta [Duloxetine], Dolobid [Diflunisal], Duricef [Cefadroxil], Dye, Entex La [Phenylephrine-Guaifenesin], Erythromycin, Flu Vac 2015 (65 Up)-Mf59c(Pf), Keflex [Cephalexin], Levaquin [Levofloxacin], Macrobid [Nitrofurantoin Monohyd/M-Cryst], Mobic [Meloxicam], Morphine, Pantoprazole, Penicillins, Prednisolone, Prilosec [Omeprazole], Septra [Sulfamethoxazole-Trimethoprim], Sulfa (Sulfonamide Antibiotics), and Tetracycline MEDICATIONS Current Outpatient Medications Medication Sig folic acid 1 mg tablet Take 1 tablet by mouth once daily. traZODone (DESYREL) 50 mg tablet Take 1 tablet by mouth daily at bedtime. famotidine (PEPCID) 20 mg tablet Take 1 tablet by mouth two times a day. lisinopril (ZESTRIL) 40 mg tablet Take 1 tablet by mouth once daily. atorvastatin (LIPITOR) 10 mg tablet Take 1 tablet by mouth daily at bedtime. For cholesterol. fluticasone (FLONASE) 50 mcg/actuation nasal spray Use 2 Sprays in each nostril once daily. Rinse mouth after use. ondansetron orally disintegrating (ZOFRAN ODT) 4 mg disintegrating tablet Take 1 tablet by mouth every 6 hours as needed for nausea/vomiting. vitamin b complex (B-COMPLEX) tab Take 1 tablet by mouth once daily. conjugated estrogens (PREMARIN) vaginal cream Use 2 g vaginally two times a week. ciprofloxacin HCl (CIPRO) 500 mg tablet Take 1 tablet by mouth two times a day for 7 days. No current facility-administered medications for this visit. FAMILY HISTORY Problem Relation Age of Onset Breast Cancer Mother 74 Heart Brother Diabetes Paternal Grandmother Social History Tobacco Use Smoking status: Former Smokeless tobacco: Never Vaping Use Vaping status: Never Used Substance Use Topics Alcohol use: No Drug use: No EXAM: BP 130/78 Pulse 78 Resp 16 Wt 58.1 kg (128 lb) SpO2 96% BMI 21.97 kg/m PHYSICAL EXAM: Physical Exam Vitals reviewed. Constitutional: Appearance: Normal appearance. Cardiovascular: Rate and Rhythm: Normal rate and regular rhythm. Pulses: Normal pulses. Heart sounds: Normal heart sounds. Pulmonary: Effort: Pulmonary effort is normal. Breath sounds: Normal breath sounds. Musculoskeletal: General: Normal range of motion. Comments: Palpable tenderness- tender to palpation. Full ROM with right arm- abduction, able to reach behind with full ROM but hurts to move right arm No shoulder pain or palpable tenderness in cervical spine Skin: General: Skin is warm and dry. Neurological: Mental Status: She is alert and oriented to person, place, and time. LABS: ASSESSMENT/PLAN: 1. Muscle strain of right scapular region, initial encounter - ICD9: 840.9, ICD10: S46.911A (primary diagnosis) Acute strain - Treat with methocarbamol 750 mg 3 x day as needed - Consider physical therapy 2. Dysuria - ICD9: 788.1, ICD10: R30.0 recurrent- likely interstitial cystitis Patient education for prevention given- aware that sodas contribute - PREMARIN 0.625 MG/GRAM VAGINAL CREAM Discussed treatment plan and patient voices understanding. Patient's questions answered appropriately. Medications and potential side effects were discussed and patient voices understanding. Return to the office as scheduled or as needed for worsening/no improvement. Daylin Mendenhall APRN.WILFREDO documented in this encounter [facility] 09-12-2024 Telephone encounter Note Patient notified of results, verbalizes understanding of instructions. Pt stated ATB are helping Graciela Salguero LPN [facility] 09-12-2024 Miscellaneous Notes Patient notified of results, verbalizes understanding of instructions. Pt stated ATB are helping Graciela Salguero LPN Can you please call the patient and let her know that I reviewed her urine culture results. Urine culture came back with mixed microbiota, this occurs with contamination when collecting sample. If symptoms are improving she can continue with antibiotic. Please let me know if she has any questions. Thank you. Cher Crabtree APRN.WILFREDO documented in this encounter [facility] 09-11-2024 Telephone encounter Note Can you please call the patient and let her know that I reviewed her urine culture results. Urine culture came back with mixed microbiota, this occurs with contamination when collecting sample. If symptoms are improving she can continue with antibiotic. Please let me know if she has any questions. Thank you. Cher Crabtree APRN.WASH WORKER [facility] 09-09-2024 History of Present illness Narrative This is a 69 year old female who presents today with: Patient presents with: UTI HISTORY OF PRESENT ILLNESS: Terri Villar is a 69 year old female. Patient presents with: UTI Patient of Dr. De Luna here in the office for concerns for UTI. Refers that dysuria started early this morning. Pain radiating into the low back. No hematuria or abdominal pain. No fever or chills. PAST MEDICAL HISTORY: PAST MEDICAL HISTORY Diagnosis Date Chronic kidney disease, stage III (moderate) (HCC) DDD (degenerative disc disease), cervical Dr Morfin Folate deficiency Gastritis GERD (gastroesophageal reflux disease) History of COVID-19 07/12/202106/2021 HLD (hyperlipidemia) HTN (hypertension) MTHFR mutation Osteoarthritis Pain, abdominal, RLQ Pericardial effusion RUQ pain Thyroid nodule PAST SURGICAL HISTORY Procedure Laterality Date DELIVERY ONLY 10/02/1984 , low transverse ALLERGIES Amoxicillin, Asa [Salicylates], Codeine, Cortizone-10 [Hydrocortisone], Cymbalta [Duloxetine], Dolobid [Diflunisal], Duricef [Cefadroxil], Dye, Entex La [Phenylephrine-Guaifenesin], Erythromycin, Flu Vac 2014 (65 Up)-Mf59c(Pf), Keflex [Cephalexin], Levaquin [Levofloxacin], Macrobid [Nitrofurantoin Monohyd/M-Cryst], Mobic [Meloxicam], Morphine, Pantoprazole, Penicillins, Prednisolone, Prilosec [Omeprazole], Septra [Sulfamethoxazole-Trimethoprim], Sulfa (Sulfonamide Antibiotics), and Tetracycline MEDICATIONS Current Outpatient Medications Medication Sig methylPREDNISolone (MEDROL, APRIL,) 4 mg Dose-Pack Follow dosing instructions, take with food. folic acid 1 mg tablet Take 1 tablet by mouth once daily. traZODone (DESYREL) 50 mg tablet Take 1 tablet by mouth daily at bedtime. famotidine (PEPCID) 20 mg tablet Take 1 tablet by mouth two times a day. lisinopril (ZESTRIL) 40 mg tablet Take 1 tablet by mouth once daily. atorvastatin (LIPITOR) 10 mg tablet Take 1 tablet by mouth daily at bedtime. For cholesterol. conjugated estrogens (PREMARIN) vaginal cream Use 2 g vaginally two times a week. fluticasone (FLONASE) 50 mcg/actuation nasal spray Use 2 Sprays in each nostril once daily. Rinse mouth after use. ondansetron orally disintegrating (ZOFRAN ODT) 4 mg disintegrating tablet Take 1 tablet by mouth every 6 hours as needed for nausea/vomiting. vitamin b complex (B-COMPLEX) tab Take 1 tablet by mouth once daily. No current facility-administered medications for this visit. FAMILY HISTORY Problem Relation Age of Onset Breast Cancer Mother 74 Heart Brother Diabetes Paternal Grandmother Social History Tobacco Use Smoking status: Former Smokeless tobacco: Never Vaping Use Vaping status: Never Used Substance Use Topics Alcohol use: No Drug use: No REVIEW OF SYSTEMS GENERAL: No weight loss, malaise or fevers/chills HEENT: Negative for frequent or significant headaches, No changes in hearing or vision. NECK: Negative for lumps, goiter, pain and significant neck swelling RESPIRATORY: Negative for cough, hemoptysis, wheezing, dyspnea or shortness of breath CARDIOVASCULAR: Negative for chest pain, leg swelling, orthopnea, or palpitations GI: No nausea, vomiting, or diarrhea/constipation. No hematochezia/melena. No heartburn or reflux symptoms. : + Dysuria MUSCULOSKELETAL: Negative for joint pain or swelling. SKIN: Negative for lesions, rash, and itching ENDOCRINE: Negative for cold or heat intolerance, polyuria, polydipsia and goiter NEURO: No history of headaches, syncope, paralysis, seizures or tremors MOOD: Negative for depression, anxiety, or suicidal ideation. EXAM: Pulse 94 Resp 16 Wt 57.2 kg (126 lb 1.7 oz) SpO2 98% BMI 21.65 kg/m PHYSICAL EXAM: General Appearance: Well appearing, alert, in no acute distress, well-hydrated, well nourished. Skin: Skin color, texture, turgor normal, no suspicious rashes or lesions. Head: Normocephalic, no masses, lesions, tenderness or abnormalities. Eyes: Anicteric sclera. Extraocular movements are intact. Lungs: Lungs clear to auscultation. No wheezing, rhonchi, rales. Heart: RRR without murmur, gallop, or rubs. No ectopy. Abdomen: Abdomen soft. Bowel sounds normal. No masses, organomegaly, Negative CVA tenderness. + Suprapubic fullness with palpation Extremities: No deformities, edema, skin discoloration, clubbing or cyanosis. Good capillary refill. Peripheral Pulses: Normal, Capillary refill <2secs, strong peripheral pulses, Pulses palpable. Neurologic: Gait normal. Sensation grossly intact. UA: + Blood ASSESSMENT/PLAN: 1. Acute cystitis with hematuria - ICD9: 595.0, ICD10: N30.01 - Start Cipro - Instructed to stay well hydrated, may use AZO OTC as needed. - URINE CULTURE - CIPROFLOXACIN 500 MG TABLET - URINALYSIS, WITH MICROSCOPIC Follow-up pending test results or sooner as needed. Discussed treatment plan and patient voices understanding. Patient's questions answered appropriately. Medications and potential side effects were discussed and patient voices understanding. Cher Crabtree APRN.WILFREDO This note was partially generated using [employer] voice recognition system. Note was reviewed for accuracy. There may be minor misspellings or grammar miscues with [employer] voice recognition. documented in this encounter [facility] 09-09-2024 Instructions Cher Crabtree APRN.CNP - 09/09/2024 7:19 AM EST Start Cipro, take with food. Stay well hydrated May use over the counter AZO as needed for burning, this will turn the urine orange. Urine will be sent out for further testing Follow up pending test results or sooner as needed. documented in this encounter [facility] 09-03-2024 Instructions Herlinda Jett APRN.CNP - 09/03/2024 4:30 PM EST Start the medrol dose pack. Ice/heat to buttock. Can try a donut pillow. Let us know if no better/worsening. documented in this encounter [facility] 09-03-2024 History of Present illness Narrative This is a 69 year old female who presents today with: Patient presents with: Acute Visit: Back/hip pain that just started today; has used Tylenol and a heating pad HISTORY OF PRESENT ILLNESS: Terri Villar is a 69 year old female. Patient presents with: Acute Visit: Back/hip pain that just started today; has used Tylenol and a heating pad Pt presents today with complaint of lower back pain/tailbone pain. No falls. She has been moving, so she has been lifting things. Refers lower back, buttock, and near rectum. No n/t. No loss of bowel/bladder. PAST MEDICAL HISTORY: PAST MEDICAL HISTORY Diagnosis Date Chronic kidney disease, stage III (moderate) (HCC) DDD (degenerative disc disease), cervical Dr Navjot Folate deficiency Gastritis GERD (gastroesophageal reflux disease) History of COVID-19 07/12/202106/2021 HLD (hyperlipidemia) HTN (hypertension) MTHFR mutation Osteoarthritis Pain, abdominal, RLQ Pericardial effusion RUQ pain Thyroid nodule PAST SURGICAL HISTORY Procedure Laterality Date DELIVERY ONLY 10/02/1984 , low transverse ALLERGIES Amoxicillin, Asa [Salicylates], Codeine, Cortizone-10 [Hydrocortisone], Cymbalta [Duloxetine], Dolobid [Diflunisal], Duricef [Cefadroxil], Dye, Entex La [Phenylephrine-Guaifenesin], Erythromycin, Flu Vac 2014 (65 Up)-Mf59c(Pf), Keflex [Cephalexin], Levaquin [Levofloxacin], Macrobid [Nitrofurantoin Monohyd/M-Cryst], Mobic [Meloxicam], Morphine, Pantoprazole, Penicillins, Prednisolone, Prilosec [Omeprazole], Septra [Sulfamethoxazole-Trimethoprim], Sulfa (Sulfonamide Antibiotics), and Tetracycline MEDICATIONS Current Outpatient Medications Medication Sig folic acid 1 mg tablet Take 1 tablet by mouth once daily. traZODone (DESYREL) 50 mg tablet Take 1 tablet by mouth daily at bedtime. famotidine (PEPCID) 20 mg tablet Take 1 tablet by mouth two times a day. lisinopril (ZESTRIL) 40 mg tablet Take 1 tablet by mouth once daily. atorvastatin (LIPITOR) 10 mg tablet Take 1 tablet by mouth daily at bedtime. For cholesterol. conjugated estrogens (PREMARIN) vaginal cream Use 2 g vaginally two times a week. fluticasone (FLONASE) 50 mcg/actuation nasal spray Use 2 Sprays in each nostril once daily. Rinse mouth after use. ondansetron orally disintegrating (ZOFRAN ODT) 4 mg disintegrating tablet Take 1 tablet by mouth every 6 hours as needed for nausea/vomiting. vitamin b complex (B-COMPLEX) tab Take 1 tablet by mouth once daily. No current facility-administered medications for this visit. FAMILY HISTORY Problem Relation Age of Onset Breast Cancer Mother 74 Heart Brother Diabetes Paternal Grandmother Social History Tobacco Use Smoking status: Former Smokeless tobacco: Never Vaping Use Vaping status: Never Used Substance Use Topics Alcohol use: No Drug use: No EXAM: BP 166/98 Pulse 85 Resp 16 SpO2 94% PHYSICAL EXAM: General Appearance: Well appearing, alert, in no acute distress, well-hydrated, well nourished.. Skin: Skin color, texture, turgor normal, no suspicious rashes or lesions. Head: Normocephalic, no masses, lesions, tenderness or abnormalities. Eyes: Anicteric sclera. Extraocular movements are intact. . Back:no pain to palpation of vertebrae, good flexion and extension, good range of motion, no muscle tenderness, reflexes are 2+ and symmetric, motor and sensory appear to be normal, negative SLR test, no evidence of scoliosis Extremities: No deformities, edema, skin discoloration, clubbing or cyanosis. Good capillary refill. . Neurologic: Gait normal. ASSESSMENT/PLAN: 1. Coccyx pain - ICD9: 724.79, ICD10: M53.3 Will start medrol dose pack. Moist heat/ice. Massage. To the ER with any severe symptoms. Let us know if no improvement. - METHYLPREDNISOLONE 4 MG TABLETS IN A DOSE PACK Discussed treatment plan and patient voices understanding. Patient's questions answered appropriately. Medications and potential side effects were discussed and patient voices understanding. Return to the office as scheduled or as needed for worsening/no improvement. Herlinda Jett APRN.WASH WORKER documented in this encounter [facility] 09-02-2024 History of Present illness Narrative Patient presents with: Sinus Problem HPI: Patient presents today for office visit for sinus ENT: Patient complains of sinus pressure. Duration: 2-3 days Fever: No. Headache: Yes. Sore throat: scratchy throat. Ear pain: buzz and ringing. Nasal drainage: Yes. Cough: No. Shortness of breath: No. Nausea: No. Vomiting: No. Diarrhea: No. Previous treatment: zyrtec and flonase. MEDICATIONS: Current Outpatient Medications Medication Sig folic acid 1 mg tablet Take 1 tablet by mouth once daily. traZODone (DESYREL) 50 mg tablet Take 1 tablet by mouth daily at bedtime. lansoprazole (PREVACID) 30 mg capsule Take 30 mg by mouth once daily. famotidine (PEPCID) 20 mg tablet Take 1 tablet by mouth two times a day. lisinopril (ZESTRIL) 40 mg tablet Take 1 tablet by mouth once daily. atorvastatin (LIPITOR) 10 mg tablet Take 1 tablet by mouth daily at bedtime. For cholesterol. conjugated estrogens (PREMARIN) vaginal cream Use 2 g vaginally two times a week. fluticasone (FLONASE) 50 mcg/actuation nasal spray Use 2 Sprays in each nostril once daily. Rinse mouth after use. ondansetron orally disintegrating (ZOFRAN ODT) 4 mg disintegrating tablet Take 1 tablet by mouth every 6 hours as needed for nausea/vomiting. vitamin b complex (B-COMPLEX) tab Take 1 tablet by mouth once daily. No current facility-administered medications for this visit. ALLERGIES: ALLERGIES Allergen Reactions Amoxicillin Itching Asa [Salicylates] Itching Codeine Itching Cortizone-10 [[place]* Itching Cymbalta [Duloxetin* Intolerance One pill: bruning all over Dolobid [Diflunisal] Itching Duricef [Cefadroxil] Itching Dye Shortness of Breath Ct dye. Including rash Entex La [Phenyleph* Itching Erythromycin Itching Flu Vac 2014 (65 Up* Shortness of Breath Keflex [Cephalexin] Itching Levaquin [Levofloxa* Other: See Comments itching Macrobid [Nitrofura* Other: See Comments Fast heart rate Mobic [Meloxicam] Itching Morphine Itching Pantoprazole Itching Penicillins Hives Prednisolone Other: See Comments Elevated blood pressure. Has done well with medrol dose april. Prilosec [Omeprazol* Itching Septra [Sulfamethox* Hives Sulfa (Sulfonamide * Hives Tetracycline Hives Can take doxycycline PAST MEDICAL HISTORY Diagnosis Date Chronic kidney disease, stage III (moderate) (HCC) DDD (degenerative disc disease), cervical Dr Navjot Folate deficiency Gastritis GERD (gastroesophageal reflux disease) History of COVID-19 07/12/202106/2021 HLD (hyperlipidemia) HTN (hypertension) MTHFR mutation Osteoarthritis Pain, abdominal, RLQ Pericardial effusion RUQ pain Thyroid nodule PAST SURGICAL HISTORY Procedure Laterality Date DELIVERY ONLY 10/02/1984 , low transverse FAMILY HISTORY Problem Relation Age of Onset Breast Cancer Mother 74 Heart Brother Diabetes Paternal Grandmother Social History Tobacco Use Smoking status: Former Smokeless tobacco: Never Vaping Use Vaping status: Never Used Substance Use Topics Alcohol use: No Drug use: No Reviewed current medications, allergies, past medical history, surgical history, family history and social history today. REVIEW OF SYSTEMS All other reviewed and negative other than HPI. HEALTH MAINTENANCE: Reviewed health maintenance issues today and recommended the following in detail. BP Controlled (<130/80) due on 09/07/2023 VITALS: BP 132/76 Pulse 75 Temp 36.5 C (97.7 F) (Tympanic) Wt 56.8 kg (125 lb 3.5 oz) SpO2 97% BMI 21.49 kg/m Last 4 Encounter Wt Readings: Date: Wt: 09/02/2024 56.8 kg (125 lb 3.5 oz) 08/08/2024 57.1 kg (125 lb 14.1 oz) 08/05/2024 57.2 kg (126 lb) 07/30/2024 56.5 kg (124 lb 9 oz) PHYSICAL EXAMINATION: General appearance: Well appearing, alert, in no acute distress, well-hydrated, well nourished. Skin: Skin color, texture, turgor normal, no suspicious rashes or lesions Head: Normocephalic, no masses, lesions, tenderness or abnormalities Eyes: Anicteric sclera. Pupils are equally round and reactive to light. Extraocular movements are intact. Ears: External ears normal, canals clear Nose/Sinuses: Nares normal, septum midline, mucosa normal, no drainage or sinus tenderness Oropharynx: Lips, mucosa, and tongue normal, teeth and gums normal, oropharynx normal Neck: Supple, no adenopathy Lungs: Lungs clear to auscultation. No wheezing, rhonchi, rales Heart: RRR without murmur, gallop, or rubs. No ectopy Abdomen: Normal abdominal exam, Abdomen soft, non-tender. Bowel sounds normal. No masses, organomegaly Extremities: No deformities, edema, skin discoloration, clubbing or cyanosis. Good capillary refill. ASSESSMENT/PLAN: 1. URI, acute - ICD9: 465.9, ICD10: J06.9 (primary diagnosis) - Discussed viral etiology and rationale for treatment. - Symptomatic treatment with prn analgesia - Supportive care with fluids and rest - COVID & INFLUENZA A/B & RSV PCR, ROUTINE 2. Encounter for screening mammogram for breast cancer - ICD9: V76.12, ICD10: Z12.31 - Follow up for annual exam in one year. - [facility] SCREENING W MIREILLE De Luna MD documented in this encounter [facility] 08-19-2024 Note Discharge Instructio ns Discharge Summary [address] [place] [address] [id number] 08/11/2024 Patient: TERRI VILLAR Sex: Female : 1955 Age: 69y Thank you for visiting [facility]. You have been evaluated today by Dawit Thornton M.D. for the following condition(s): Principal Diagnosis Irritable bowel syndrome (with nausea). INSTRUCTIONS No restrictions to activity. Avoid alcohol and NSAIDS. NSAIDS include aspirin, ibuprofen (Advil) and naproxen (Aleve). Avoid fatty and fried/greasy foods. Prescription Medications: OTC: Pepto Bismol May take : Bentyl 3x/day; Zofran (Ondansetron) every 6 hours for nausea. OTC Medications: Take acetaminophen (Tylenol) according to label instructions. Available over the counter. Follow-up: Follow up with your doctor in about two if not better. Patient Signature 1 of 3 Discharge Instructions Facility Handbag Designer Date/Time General Instructions with ExitWriter [address] [address] [phone] 08/11/2024 Patient: TERRI VILLAR Sex: Female : 1955 Age: 69y Thank you for visiting [facility]. You have been evaluated today by Dawit Thornton M.D. for the following condition(s): Principal Diagnosis Irritable bowel syndrome (with nausea). INSTRUCTIONS No restrictions to activity. Avoid alcohol and NSAIDS. NSAIDS include aspirin, ibuprofen (Advil) and naproxen (Aleve). Avoid fatty and fried/greasy foods. Prescription Medications: OTC: Pepto Bismol May take : Bentyl 3x/day; Zofran (Ondansetron) every 6 hours for nausea. OTC Medications: Take acetaminophen (Tylenol) according to label instructions. Available over the counter. Follow-up: Follow up with your doctor in about two if not better. 2 of 3 Discharge Instructions Activities Restrictions [address] [address] [phone] 08/11/2024 Patient: TERRI VILLAR Sex: Female : 1955 Age: 69y You have been given the following instructions regarding activity, work, and/or school. No restrictions to activity. 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 FALL SCREENING: Has the patient had 2 falls in the last year or 1 fall with injury or currently using an Ambulatory Assistive Device (Walker, Cane, Wheelchair, Crutches, etc.)? No PATIENT GENDER DATA: Female. status: : No status: NO. PATIENT RELEVANT IMPLANT DATA REVIEWED: Yes PATIENT PRESENTS WITH AN IMPLANTABLE OR ATTACHED AUDIO PRODUCTION MANAGER: No RADIOLOGY DEPARTMENT: CT; Exam(s) Completed: Chest PERIPHERAL IV DATA: Not applicable SIGNED BY: RT Anna(R) August 16, 2024 10:01 AM documented in this encounter [facility] 08-09-2024 History of Present illness Narrative The patient left without being seen. documented in this encounter [facility] 08-08-2024 Telephone encounter Note Referral faxed as requested Lizzeth Decker MA August 08, 2024 9:33 AM [facility] 08-08-2024 Miscellaneous Notes Referral faxed as requested Lizzeth Decker MA August 08, 2024 9:33 AM Can please fax, as requested. Spoke to patient she would like to see Dr. Manriquez general surgery for EGD. Patient can not travel to [place] for this test and would like to be closer to home. Please file consult and we can fax to: [phone]. Patient will cancel scope at [place] Dimitrios Fontenot MA documented in this encounter [facility] 08-08-2024 Instructions Cher Crabtree APRN.CNP - 08/08/2024 9:01 AM EST Get lab completed Refill provided for folic acid May use Trazodone 50 mg, 1/2 tablet 30 minutes prior to sleep. If needed may use 1 tablet. Be mindful with screen use before sleep. Follow up pending test results or sooner as needed. documented in this encounter [facility] 08-08-2024 History of Present illness Narrative This is a 69 year old female who presents today with: Patient presents with: Acute Visit: feeling really tired lately HISTORY OF PRESENT ILLNESS: Terri Villar is a 69 year old female. Patient presents with: Acute Visit: feeling really tired lately Patient of Dr. De Luna here in the office for fatigue. Refers that symptom started about a month ago. Has been taking Folic acid but has been out for the past month. Still taking B complex vitamin. Difficulty sleeping, 3-4 hours per night. Difficulty staying asleep. Some over thinking but denied anxiety or sadness. No snoring. PAST MEDICAL HISTORY: PAST MEDICAL HISTORY Diagnosis Date Chronic kidney disease, stage III (moderate) (HCC) DDD (degenerative disc disease), cervical Dr Navjot Folate deficiency Gastritis GERD (gastroesophageal reflux disease) History of COVID-19 07/12/202106/2021 HLD (hyperlipidemia) HTN (hypertension) MTHFR mutation Osteoarthritis Pain, abdominal, RLQ Pericardial effusion RUQ pain Thyroid nodule PAST SURGICAL HISTORY Procedure Laterality Date DELIVERY ONLY 10/02/1984 , low transverse ALLERGIES Amoxicillin, Asa [Salicylates], Codeine, Cortizone-10 [Hydrocortisone], Cymbalta [Duloxetine], Dolobid [Diflunisal], Duricef [Cefadroxil], Dye, Entex La [Phenylephrine-Guaifenesin], Erythromycin, Flu Vac 2015 (65 Up)-Mf59c(Pf), Keflex [Cephalexin], Levaquin [Levofloxacin], Macrobid [Nitrofurantoin Monohyd/M-Cryst], Mobic [Meloxicam], Morphine, Pantoprazole, Penicillins, Prednisolone, Prilosec [Omeprazole], Septra [Sulfamethoxazole-Trimethoprim], Sulfa (Sulfonamide Antibiotics), and Tetracycline MEDICATIONS Current Outpatient Medications Medication Sig lansoprazole (PREVACID) 30 mg capsule Take 30 mg by mouth once daily. ciprofloxacin HCl (CIPRO) 250 mg tablet Take 1 tablet by mouth two times a day for 10 days. famotidine (PEPCID) 20 mg tablet Take 1 tablet by mouth two times a day. lisinopril (ZESTRIL) 40 mg tablet Take 1 tablet by mouth once daily. tiZANidine (ZANAFLEX) 4 mg tablet Take 1 tablet by mouth every 8 hours as needed (muscle spasms). atorvastatin (LIPITOR) 10 mg tablet Take 1 tablet by mouth daily at bedtime. For cholesterol. conjugated estrogens (PREMARIN) vaginal cream Use 2 g vaginally two times a week. fluticasone (FLONASE) 50 mcg/actuation nasal spray Use 2 Sprays in each nostril once daily. Rinse mouth after use. ondansetron orally disintegrating (ZOFRAN ODT) 4 mg disintegrating tablet Take 1 tablet by mouth every 6 hours as needed for nausea/vomiting. vitamin b complex (B-COMPLEX) tab Take 1 tablet by mouth once daily. No current facility-administered medications for this visit. FAMILY HISTORY Problem Relation Age of Onset Breast Cancer Mother 74 Heart Brother Diabetes Paternal Grandmother Social History Tobacco Use Smoking status: Former Smokeless tobacco: Never Vaping Use Vaping status: Never Used Substance Use Topics Alcohol use: No Drug use: No REVIEW OF SYSTEMS GENERAL: + Fatigue/difficulty sleeping HEENT: Negative for frequent or significant headaches, No changes in hearing or vision. NECK: Negative for lumps, goiter, pain and significant neck swelling RESPIRATORY: Negative for cough, hemoptysis, wheezing, dyspnea or shortness of breath CARDIOVASCULAR: Negative for chest pain, leg swelling, orthopnea, or palpitations GI: No nausea, vomiting, or diarrhea/constipation. No hematochezia/melena. No heartburn or reflux symptoms. : No history of dysuria, frequency or incontinence MUSCULOSKELETAL: Negative for joint pain or swelling. SKIN: Negative for lesions, rash, and itching ENDOCRINE: Negative for cold or heat intolerance, polyuria, polydipsia and goiter NEURO: No history of headaches, syncope, paralysis, seizures or tremors MOOD: Negative for depression, anxiety, or suicidal ideation. EXAM: BP 130/80 Pulse 89 Resp 16 Wt 57.1 kg (125 lb 14.1 oz) SpO2 98% BMI 21.61 kg/m PHYSICAL EXAM: General Appearance: Well appearing, alert, in no acute distress, well-hydrated, well nourished. Skin: Skin color, texture, turgor normal, no suspicious rashes or lesions. Head: Normocephalic, no masses, lesions, tenderness or abnormalities. Lungs: Lungs clear to auscultation. No wheezing, rhonchi, rales. Heart: RRR without murmur, gallop, or rubs. No ectopy. Extremities: No deformities, edema, skin discoloration, clubbing or cyanosis. Good capillary refill. Peripheral Pulses: Normal, Capillary refill <2secs, strong peripheral pulses, Pulses palpable. Neurologic: Gait normal. Sensation grossly intact. ASSESSMENT/PLAN: 1. Chronic fatigue - ICD9: 780.79, ICD10: R53.82 (primary diagnosis) - Symptoms may be due to lack of sleep 2. Difficulty sleeping - ICD9: 780.50, ICD10: G47.9 - May use trazodone 50 mg, 1/2-1 tablet as needed for sleep. - Discussed sleep hygiene. - TRAZODONE 50 MG TABLET 3. Folate deficiency - ICD9: 266.2, ICD10: E53.8 - Check labs, refill provided. - FOLATE, SERUM - FOLIC ACID 1 MG TABLET 4. Vitamin B12 deficiency - ICD9: 266.2, ICD10: E53.8 - VITAMIN B12 Follow-up pending test results or sooner as needed. Discussed treatment plan and patient voices understanding. Patient's questions answered appropriately. Medications and potential side effects were discussed and patient voices understanding. Cher Crabtree APRN.WILFREDO This note was partially generated using [employer] voice recognition system. Note was reviewed for accuracy. There may be minor misspellings or grammar miscues with [employer] voice recognition. documented in this encounter [facility] 08-07-2024 Telephone encounter Note Can please fax, as requested. [facility] Work Phone: 08-07-2024 Telephone encounter Note Spoke to patient she would like to see Dr. Manriquez general surgery for EGD. Patient can not travel to [place] for this test and would like to be closer to home. Please file consult and we can fax to: [phone]. Patient will cancel scope at [place] Dimitrios Fontenot MA [facility] 08-05-2024 Telephone encounter Note 10-30-2024 EGD Owensjamal Manriquez [facility] 08-05-2024 Miscellaneous Notes 10-30-2024 EGD Graciela Manriquez documented in this encounter [facility] 08-05-2024 History of Present illness Narrative HISTORY AND PHYSICAL Terri Villar : 1955 REFERRING PHYSICIAN: No referring provider defined for this encounter. CHIEF COMPLAINT: Patient presents with: Consult: Consultation for EGD or UGI. HPI: Terri is a 69 year old female referred for endoscopy. Terri notes GERD. Terri notes heartburn. Well controlled with Prevacid 30mg? & pepcid 20mg -follows with GI in [place] who added Prevacid in October Terri denies dysphagia. Terri notes a history of ulcers/ peptic ulcer disease. 39 years ago Terri denies family history of GI issues. Terri's medical history is significant for HTN, HLD, CKD stage 3, GERD, OA. Denies CP, SOB, dizziness, palpitations, syncope, edema, recent hospitalizations Terri has not undergone prior endoscopy. Negative cologuard this year. Current Outpatient Medications Medication Sig ciprofloxacin HCl (CIPRO) 250 mg tablet Take 1 tablet by mouth two times a day for 10 days. famotidine (PEPCID) 20 mg tablet Take 1 tablet by mouth two times a day. lisinopril (ZESTRIL) 40 mg tablet Take 1 tablet by mouth once daily. tiZANidine (ZANAFLEX) 4 mg tablet Take 1 tablet by mouth every 8 hours as needed (muscle spasms). atorvastatin (LIPITOR) 10 mg tablet Take 1 tablet by mouth daily at bedtime. For cholesterol. conjugated estrogens (PREMARIN) vaginal cream Use 2 g vaginally two times a week. fluticasone (FLONASE) 50 mcg/actuation nasal spray Use 2 Sprays in each nostril once daily. Rinse mouth after use. ondansetron orally disintegrating (ZOFRAN ODT) 4 mg disintegrating tablet Take 1 tablet by mouth every 6 hours as needed for nausea/vomiting. vitamin b complex (B-COMPLEX) tab Take 1 tablet by mouth once daily. No current facility-administered medications for this visit. ALLERGIES: Amoxicillin, Asa [Salicylates], Codeine, Cortizone-10 [Hydrocortisone], Cymbalta [Duloxetine], Dolobid [Diflunisal], Duricef [Cefadroxil], Dye, Entex La [Phenylephrine-Guaifenesin], Erythromycin, Flu Vac 2015 (65 Up)-Mf59c(Pf), Keflex [Cephalexin], Levaquin [Levofloxacin], Macrobid [Nitrofurantoin Monohyd/M-Cryst], Mobic [Meloxicam], Morphine, Pantoprazole, Penicillins, Prednisolone, Prilosec [Omeprazole], Septra [Sulfamethoxazole-Trimethoprim], Sulfa (Sulfonamide Antibiotics), and Tetracycline PAST MEDICAL HISTORY Diagnosis Date Chronic kidney disease, stage III (moderate) (HCC) DDD (degenerative disc disease), cervical Dr Morfin Folate deficiency Gastritis GERD (gastroesophageal reflux disease) History of COVID-19 07/12/202106/2021 HLD (hyperlipidemia) HTN (hypertension) MTHFR mutation Osteoarthritis Pain, abdominal, RLQ Pericardial effusion RUQ pain Thyroid nodule PAST SURGICAL HISTORY Procedure Laterality Date DELIVERY ONLY 10/02/1984 , low transverse FAMILY HISTORY Problem Relation Age of Onset Breast Cancer Mother 74 Heart Brother Diabetes Paternal Grandmother Social History Tobacco Use Smoking status: Former Smokeless tobacco: Never Vaping Use Vaping status: Never Used Substance Use Topics Alcohol use: No Drug use: No REVIEW OF SYMPTOMS: REVIEW OF SYSTEMS: General: The patient + fatigue, denies weight loss, denies weight gain, denies feeling hot, and feelings of cold. Eyes: The patient denies glaucoma, denies eye injury/surgery, + glasses or contacts. Ear/Nose/Throat: The patient denies allergies, + hayfever, denies ear infections, and denies bloody noses. Cardiovascular: The patient denies chest pain, denies heart disease, denies high blood pressure, denies high cholesterol, and denies poor circulation. Respiratory: The patient denies tuberculosis, denies pneumonia, denies frequent cough, denies shortness of breath, and denies coughing up blood. Gastrointestinal: The patient denies difficulty swallowing, + acid reflux, denies ulcers, denies jaundice/hepatitis, + gallbladder problems, denies vomiting, denies black or tarry stools, denies hemorrhoids, denies bleeding from rectum, denies diverticulitis, denies constipation, denies diarrhea, denies loss of stool control, and denies hernias. Kidney/Bladder: The patient denies kidney stones, denies urine infections, and denies bloody urine. Skin: The patient denies a history of skin cancer, denies bleeding/changing moles, and denies a history of skin rash. Neurologic: The patient denies a history of epilepsy/convulsions, denies headaches, denies head/spinal injuries, and denies stroke/TIA. Psychiatric: The patient denies psychiatric medications, denies depression, and denies voices. Endocrine: The patient denies thyroid disorders, denies diabetes, and denies hormonal problems. Hematologic: The patient denies a history of bruising, denies bleeding, and denies anemia. Infections: The patient denies a history of measles and mumps, denies rheumatic fever, and denies sexually transmitted diseases. Musculoskeletal: The patient denies back pain/injury, + back problems, denies sciatica, denies knee/foot trouble, + arthritis, or denies gout. PHYSICAL EXAMINATION: General: The patient is 69 year old, female well nourished, well hydrated in no acute distress. The patient is oriented to time, place, and person. VITALS: Blood pressure 119/74, pulse 96, temperature 36.2 C (97.2 F), height 162.6 cm (5' 4), weight 57.2 kg (126 lb), SpO2 96%. Body mass index is 21.63 kg/m . HEENT: Normal cephalic, ataumatic, pupils are equally round, sclera are anicteric, mucous membranes are moist, oropharynx is clear. Neck has no masses, asymmetry or lymphadenopathy. Respiratory: Clear to auscultation and percussion. Normal respiratory excursion and pattern. Cardiac: Examination is regular rate and rhythm. Normal S1/S2 Abdominal exam: Soft, nontender, with no palpable masses. No hepatosplenomegaly. No palpable hernias. Extremities: no clubbing, cyanosis or edema. No adenopathy. LABORATORY VALUES: As Noted RADIOLOGIC STUDIES: As Noted Assessment IMPRESSION: GERD PLAN: I have reviewed my findings with the surgeon. Will plan for upper endoscopy. We discussed the risks and benefits of the planned endoscopy. I have informed the patient that complications can occur including failure to complete the endoscopy and perforation. Terri had the opportunity to ask questions concerning the planned endoscopy. My staff has also explained the procedure to the patient in understandable terms and has given the patient printed material concerning the procedure. Terri freely consents to surgery. I have explained to the patient the difference between IV conscious sedation and MAC anesthesia - and I have offered either, according to the patient's wishes. I have explained that with IV conscious sedation there is no anesthesia provider available and therefore there is a limitation of the amount of IV medications that can be given and that the patient may wake up in the middle of the procedure and/or experience pain/discomfort during the procedure. Further discussion was done and the patient was given the opportunity to ask questions and all questions were answered. MAC anesthesia d/t allergies. Terri was counseled that if there are changes in his/her medical condition, to let the office know if surgery should proceed. If there are changes in patient's medical condition from time of this encounter to the day of the procedure that preclude anesthesia, patient may have procedure cancelled for patient's safety. Diagnoses: (K21.9) Gastroesophageal reflux disease without esophagitis (primary encounter diagnosis) Portions of this documentation were copied and pasted from previous office visit notes in order to provide a cohesive continuity of the history. The note has been reviewed and edited and updated as necessary. Chelsie Chavis APRN.WILFREDO documented in this encounter [facility] 07-31-2024 Telephone encounter Note Sent her a [employer] message regarding this. [facility] 07-31-2024 Miscellaneous Notes Sent her a [employer] message regarding this. I am aware. Pt. Taking only low dose of cipro. It is the only antibiotic she is tolerant of. He can ask her to avoid tizanidine while on cipro. Pharmacist Jeevan calling from [facility]. Pt was given an Rx for Cipro today however Jeevan reports there is a contraindication between it & tizanidine which pt also takes. Asking if pt is to hold tizanidine while taking Cipro? Please advise. Nikky Solares LPN documented in this encounter [facility] 07-30-2024 Telephone encounter Note I am aware. Pt. Taking only low dose of cipro. It is the only antibiotic she is tolerant of. He can ask her to avoid tizanidine while on cipro. [facility] 07-30-2024 Telephone encounter Note Pharmacist Jeevan calling from [facility]. Pt was given an Rx for Cipro today however Jeevan reports there is a contraindication between it & tizanidine which pt also takes. Asking if pt is to hold tizanidine while taking Cipro? Please advise. Nikky Solares LPN [facility] 07-30-2024 Instructions Daylin Mendenhall APRN.WILFREDO - 07/30/2024 10:37 AM EDT 1) Cipro 250 mg 2 x day for 10 days 2) Send urine culture today 3) See Dr. De Luna in November as scheduled documented in this encounter [facility] 07-30-2024 History of Present illness Narrative This is a 69 year old female who presents today with: Patient presents with: Acute Visit: Body aches, feet feel like they are burning, sore throat HISTORY OF PRESENT ILLNESS: Terri Villar is a 69 year old female. Patient presents with: Acute Visit: Body aches, feet feel like they are burning, sore throat Awoke at 1:30 am with pain all over. Sore throat. Occ headache, none today Sinus pressure Coughing Dry tickling throat yesterday that made her cough Hurts all over. + fatigue Took acetaminophen 500 mg at 2am PAST MEDICAL HISTORY: PAST MEDICAL HISTORY Diagnosis Date Chronic kidney disease, stage III (moderate) (HCC) DDD (degenerative disc disease), cervical Dr Knapic Folate deficiency Gastritis GERD (gastroesophageal reflux disease) History of COVID-19 07/12/202106/2021 HLD (hyperlipidemia) HTN (hypertension) MTHFR mutation Osteoarthritis Pain, abdominal, RLQ Pericardial effusion RUQ pain Thyroid nodule PAST SURGICAL HISTORY Procedure Laterality Date DELIVERY ONLY 10/02/1984 , low transverse ALLERGIES Amoxicillin, Asa [Salicylates], Codeine, Cortizone-10 [Hydrocortisone], Cymbalta [Duloxetine], Dolobid [Diflunisal], Duricef [Cefadroxil], Dye, Entex La [Phenylephrine-Guaifenesin], Erythromycin, Flu Vac 2015 (65 Up)-Mf59c(Pf), Keflex [Cephalexin], Levaquin [Levofloxacin], Macrobid [Nitrofurantoin Monohyd/M-Cryst], Mobic [Meloxicam], Morphine, Pantoprazole, Penicillins, Prednisolone, Prilosec [Omeprazole], Septra [Sulfamethoxazole-Trimethoprim], Sulfa (Sulfonamide Antibiotics), and Tetracycline MEDICATIONS Current Outpatient Medications Medication Sig famotidine (PEPCID) 20 mg tablet Take 1 tablet by mouth two times a day. lisinopril (ZESTRIL) 40 mg tablet Take 1 tablet by mouth once daily. tiZANidine (ZANAFLEX) 4 mg tablet Take 1 tablet by mouth every 8 hours as needed (muscle spasms). atorvastatin (LIPITOR) 10 mg tablet Take 1 tablet by mouth daily at bedtime. For cholesterol. fluticasone (FLONASE) 50 mcg/actuation nasal spray Use 2 Sprays in each nostril once daily. Rinse mouth after use. ondansetron orally disintegrating (ZOFRAN ODT) 4 mg disintegrating tablet Take 1 tablet by mouth every 6 hours as needed for nausea/vomiting. vitamin b complex (B-COMPLEX) tab Take 1 tablet by mouth once daily. lansoprazole (PREVACID) 15 mg capsule Take 1 capsule by mouth daily before breakfast. conjugated estrogens (PREMARIN) vaginal cream Use 2 g vaginally two times a week. No current facility-administered medications for this visit. FAMILY HISTORY Problem Relation Age of Onset Breast Cancer Mother 74 Heart Brother Diabetes Paternal Grandmother Social History Tobacco Use Smoking status: Former Smokeless tobacco: Never Vaping Use Vaping status: Never Used Substance Use Topics Alcohol use: No Drug use: No EXAM: BP 126/78 Pulse 80 Temp 36.6 C (97.9 F) (Tympanic) Resp 16 Wt 56.5 kg (124 lb 9 oz) SpO2 98% BMI 21.38 kg/m PHYSICAL EXAM: Physical Exam Vitals reviewed. Constitutional: Appearance: Normal appearance. HENT: Head: Normocephalic. Right Ear: Ear canal and external ear normal. There is impacted cerumen. Left Ear: Tympanic membrane, ear canal and external ear normal. There is no impacted cerumen. Nose: Congestion and rhinorrhea present. Comments: Purulent matter, right side red and inflamed Mouth/Throat: Mouth: Mucous membranes are moist. Pharynx: Oropharyngeal exudate and posterior oropharyngeal erythema present. Cardiovascular: Rate and Rhythm: Normal rate and regular rhythm. Pulses: Normal pulses. Heart sounds: Normal heart sounds. Pulmonary: Effort: Pulmonary effort is normal. Breath sounds: Normal breath sounds. Genitourinary: Comments: dysuria Musculoskeletal: General: Normal range of motion. Lymphadenopathy: Cervical: No cervical adenopathy. Skin: General: Skin is warm and dry. Neurological: General: No focal deficit present. Mental Status: She is alert and oriented to person, place, and time. LABS: urine culture ASSESSMENT/PLAN: 1. Frequent UTI - ICD9: 599.0, ICD10: N39.0 (primary diagnosis) acute - Patient education for prevention given - URINE CULTURE 2. Dysuria - ICD9: 788.1, ICD10: R30.0 acute - Patient education for prevention given - URINE CULTURE - CIPROFLOXACIN 250 MG TABLET 2 x day for 10 days 3. Acute maxillary sinusitis, recurrence not specified - ICD9: 461.0, ICD10: J01.00 - Will begin treatment with as per antibiotic as written, see orders (multiple allergies - CIPROFLOXACIN 250 MG TABLET 2 x day for 10 days Discussed treatment plan and patient voices understanding. Patient's questions answered appropriately. Medications and potential side effects were discussed and patient voices understanding. Return to the office as scheduled or as needed for worsening/no improvement. Daylin Mendenhall APRN.WASH WORKER documented in this encounter [facility] 07-29-2024 Telephone encounter Note Set up ct for end of Sep or later. [facility] 07-29-2024 Miscellaneous Notes Set up ct for end of Dec or later. documented in this encounter [facility] 07-24-2024 Telephone encounter Note Per discharge note a urology consult was placed for pain with urination. Patient was asking why she needs to follow up with urology. Please relay this message to the patient [facility] Work Phone: 07-24-2024 Miscellaneous Notes Per discharge note a urology consult was placed for pain with urination. Patient was asking why she needs to follow up with urology. Please relay this message to the patient documented in this encounter [facility] 07-24-2024 History of Present illness Narrative POPULATION HEALTH NAVIGATION OUTREACH Action/FYI 1st attempt AC Left message to schedule ED follow up ED utilization to be reviewed My chart sent Reason for Outreach Community Monitoring/Network Navigator Pools & Phone Line: AC Patient Contacted: Unable or unnecessary to reach patient: Left message MyChart message sent Navigation Signature: Eli Tello Population Health Navigator July 24, 2024 1:59 PM Summary: ED utilization review per request of payor AC ROXANNE RN Patient identified by name and date of . Reason for review or outreach: Chart Review [facility] Emergency Department Utilization REQUESTED ACTION/FYI: Please see ED Utilization summary below: A follow-up appointment is not noted in patient's record. We are forwarding this patient to [employer] [facility] to schedule a [facility] 07/19/24 PCP follow-up appointment. Thank you Exclusion Criteria - Does not meet exclusion criteria Utilization in past 6 months: # Occurrences Date Last Occurrence Hospital Admission 0 N/A Hospital Observation 0 N/A ED 4-OON 07/19/24 SNF / Acute Rehab / LTAC 0 N/A ED DIAGNOSES/REASON(S) FOR ED USE: [facility] 07/19/24- Dysuria [facility] 12/20/23- [facility] 12/08/23-Back pain OTHER FINDINGS/SUMMARY: Patient Attributed To: TEREZA Payer: Harvinder MILLER Action Taken: Referrals/Routed: Population Health Navigation: Appointment. Router to [facility] [[phone]] FYI for Urology specialist Contact made with patient: No, Chart review only. Signature: Graciela RUDD,RN,[facility] Finished Cloth Examiner Management Contract RN [phone] documented in this encounter [facility] 07-24-2024 Note Discharge Instructio ns Discharge Summary [address] [id number] 07/19/2024 Patient: TERRI VILLAR Sex: Female : 1955 Age: 69y Thank you for visiting [facility]. You have been evaluated today by Bridget Pérez D.O. for the following condition(s): Principal Diagnosis Acute pelvic pain. Dysuria INSTRUCTIONS (Return if increasing pain fevers or any concerns. We did culture your urine. Tylenol Motrin for pain). Follow-up: Follow up with doctor in four days. Call for an appointment. 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 You have been evaluated today by Bridget Pérez D.O. for the following condition(s): Principal Diagnosis Acute pelvic pain. Dysuria INSTRUCTIONS (Return if increasing pain fevers or any concerns. We did culture your urine. Tylenol Motrin for pain). Follow-up: Follow up with doctor in four days. Call for an appointment. ADDITIONAL INFORMATION 2 of 4 Discharge Instructions Dysuria with Uncertain Cause (Adult) The urethra is the tube that allows urine to pass out of the body. In a woman, the urethra is the opening above the vagina. In men, the urethra is the opening on the tip of the penis. Dysuria is the feeling of pain or burning in the urethra when passing urine. Dysuria can be caused by anything that irritates or inflames the urethra. An infection or chemical irritation can cause this reaction. A bladder infection is the most common cause of dysuria in adults. A urine test can diagnose this. A bladder infection needs antibiotic treatment. Soaps, lotions, colognes, and feminine hygiene products can cause dysuria. So can control jellies, creams, and foams. It will go away 1 to 3 days after using these irritants. Sexually transmitted infections (STIs) such as chlamydia or gonorrhea can cause dysuria. Your healthcare provider may take a culture sample. Your provider may start you on antibiotic medicine before the culture test returns. In women who have gone through menopause, dysuria can be from dryness in the lining of the urethra. This can be treated with hormones. Dysuria becomes long-term (chronic) when it lasts for weeks or months. You may need to see a specialist (urologist) to diagnose and treat chronic dysuria. Home care These home care tips may help: Don't use any chemicals or products that you think may be causing your symptoms. If you were given a prescription medicine, take as directed. Take it until it is all used up. 3 of 4 Discharge Instructions If a culture was taken, don't have sex until you have been told that it is negative. A negative culture means you don't have an infection. Then follow your healthcare provider's advice to treat your condition. If a culture was done and it is positive: Both you and your sexual partner may need to be treated. This is true even if your partner has no symptoms. Contact your healthcare provider or go to an urgent care clinic or the public health department to be looked at and treated. Don't have sex until both you and your partner have finished all antibiotics and your healthcare provider says you are no longer contagious. Learn about and use safe sex practices. The safest sex is with a partner who has tested negative and only has sex with you. Condoms can prevent STIs from spreading, but they aren't a guarantee. Follow-up care Follow up with your healthcare provider, or as advised. If a culture was taken, you may call as directed for the results. If you have an STI, follow up with your provider or the public health department for a complete STI screening, including HIV testing. For more information, contact CDC-INFO at [phone]. When to get medical advice Call your healthcare provider right away if any of these occur: You aren't better after 3 days of treatment Fever of 100.4F (38C) or higher, or as directed by your provider Back or belly pain that gets worse You can't urinate because of pain New discharge from the urethra, vagina, or penis Painful sores on the penis Rash or joint pain Painful lumps (lymph nodes) in the groin Testicle pain or swelling of the scrotum 4 of 4 [facility] 07-16-2024 History of Present illness Narrative Radiology Service Progress Note PATIENT NAME: Terri Villar DATE OF SERVICE: July 16, 2024 TIME: 11:08 AM PATIENT IDENTITY VERIFICATION COMPLETED USING TWO (2) IDENTIFIERS: Name and Date of confirmed by patient verbally. FALL SCREENING: Has the patient had 2 falls in the last year or 1 fall with injury or currently using an Ambulatory Assistive Device (Walker, Cane, Wheelchair, Crutches, etc.)? No PATIENT GENDER DATA: Female. status: : No status: NO. PATIENT RELEVANT IMPLANT DATA REVIEWED: Yes PATIENT PRESENTS WITH AN IMPLANTABLE OR ATTACHED AUDIO PRODUCTION MANAGER: No RADIOLOGY DEPARTMENT: General X-ray: Exam(s) Completed: Spine X-Ray(s): Thoracic PERIPHERAL IV DATA: Not applicable SIGNED BY: RT Inés(R) July 16, 2024 11:08 AM documented in this encounter [facility] 07-16-2024 Miscellaneous Notes Good news. No fracture. The tizanidine will treat the spasm from strain. Use heat and ice alternating but always end on heat If you need me to order some physical therapy, that night help. Let me know. documented in this encounter [facility] 07-16-2024 Progress note Formatting of t his note might be different from the original. Good news. No fracture. The tizanidine will treat the spasm from strain. Use heat and ice alternating but always end on heat If you need me to order some physical therapy, that night help. Let me know. [facility] 07-16-2024 Instructions Daylin Mendenhall APRN.CNP - 07/16/2024 11:02 AM EDT 1) Xray thoracic spine 2) Tizanidine 4 mg 3 x day as needed for thoracic pain- MAY MAKE YOU SLEEPY 3) See Dr. De Luna as scheduled, will let you know about results documented in this encounter [facility] 07-16-2024 History of Present illness Narrative This is a 69 year old female who presents today with: Patient presents with: Low Back Pain HISTORY OF PRESENT ILLNESS: Terri Villar is a 69 year old female. Patient presents with: Low Back Pain Pain thoracic spine that is radiating laterally to ribs aramis Started Monday, 5 days ago Carried 2 large boxes of em on No hematuria or dysuria No falls Pain is 9/10- constant Lower abd- cramping that is not new and she attributes to endometriosis. PAST MEDICAL HISTORY: PAST MEDICAL HISTORY Diagnosis Date Chronic kidney disease, stage III (moderate) (HCC) DDD (degenerative disc disease), cervical Dr Morfin Folate deficiency Gastritis GERD (gastroesophageal reflux disease) History of COVID-19 07/12/202106/2021 HLD (hyperlipidemia) HTN (hypertension) MTHFR mutation Osteoarthritis Pain, abdominal, RLQ Pericardial effusion RUQ pain Thyroid nodule PAST SURGICAL HISTORY Procedure Laterality Date DELIVERY ONLY 10/02/1984 , low transverse ALLERGIES Amoxicillin, Asa [Salicylates], Codeine, Cortizone-10 [Hydrocortisone], Cymbalta [Duloxetine], Dolobid [Diflunisal], Duricef [Cefadroxil], Dye, Entex La [Phenylephrine-Guaifenesin], Erythromycin, Flu Vac 2014 (65 Up)-Mf59c(Pf), Keflex [Cephalexin], Levaquin [Levofloxacin], Macrobid [Nitrofurantoin Monohyd/M-Cryst], Mobic [Meloxicam], Morphine, Pantoprazole, Penicillins, Prednisolone, Prilosec [Omeprazole], Septra [Sulfamethoxazole-Trimethoprim], Sulfa (Sulfonamide Antibiotics), and Tetracycline MEDICATIONS Current Outpatient Medications Medication Sig doxycycline (VIBRA-TABS) 100 mg tablet Take 1 tablet by mouth two times a day for 10 days. lansoprazole (PREVACID) 15 mg capsule Take 1 capsule by mouth daily before breakfast. atorvastatin (LIPITOR) 10 mg tablet Take 1 tablet by mouth daily at bedtime. For cholesterol. conjugated estrogens (PREMARIN) vaginal cream Use 2 g vaginally two times a week. fluticasone (FLONASE) 50 mcg/actuation nasal spray Use 2 Sprays in each nostril once daily. Rinse mouth after use. ondansetron orally disintegrating (ZOFRAN ODT) 4 mg disintegrating tablet Take 1 tablet by mouth every 6 hours as needed for nausea/vomiting. lisinopril (ZESTRIL) 40 mg tablet Take 1 tablet by mouth once daily. vitamin b complex (B-COMPLEX) tab Take 1 tablet by mouth once daily. No current facility-administered medications for this visit. FAMILY HISTORY Problem Relation Age of Onset Breast Cancer Mother 74 Heart Brother Diabetes Paternal Grandmother Social History Tobacco Use Smoking status: Former Smokeless tobacco: Never Vaping Use Vaping status: Never Used Substance Use Topics Alcohol use: No Drug use: No EXAM: BP 128/70 Pulse 77 Temp 36.7 C (98 F) (Tympanic) Resp 16 Wt 57 kg (125 lb 10.6 oz) SpO2 97% BMI 21.57 kg/m PHYSICAL EXAM: Physical Exam Vitals reviewed. Constitutional: Appearance: Normal appearance. HENT: Head: Normocephalic. Musculoskeletal: General: Normal range of motion. Comments: Palpable pain mid-thoracic to lower thoracic spine with pain radiating out along dermatomes into ribs and flanks aramis. Painful to even light touch. No rash or discoloration. Skin: General: Skin is warm and dry. Neurological: Mental Status: She is alert and oriented to person, place, and time. LABS: needs Xray, known osteoporosis on Dexa scan ASSESSMENT/PLAN: 1. Acute thoracic back pain, unspecified back pain laterality - ICD9: 724.1, ICD10: M54.6 Thoracic strain vs compression fracture - Muscle relaxant- see orders, tizanidine 4 mg 3 x day as needed - XR THORACIC GENERAL 3V AP/LAT/SWIMMERS - Start tizanidine 4 mg 3 x day as needed Discussed treatment plan and patient voices understanding. Patient's questions answered appropriately. Medications and potential side effects were discussed and patient voices understanding. Return to the office as scheduled or as needed for worsening/no improvement. Daylin Mendenhall APRN.WILFREDO documented in this encounter [facility] 07-16-2024 Telephone encounter Note Prescription Refill Information The patient has been identified by name and date of : Yes Caregiver verified no other encounters exist for this prescription request: Yes Caregiver confirmed with patient/requestor that no other refills are due, in the near future, with this provider at this time: Yes The last office visit in the department: 06/17/2024 Does the patient have a future office visit with this provider/department: Yes Requested Prescriptions Pending Prescriptions Disp Refills lisinopril (ZESTRIL) 40 mg tablet 90 tablet 1 Sig: Take 1 tablet by mouth once daily. Daylin Booker LPN July 16, 2024 8:42 AM [facility] 07-16-2024 Miscellaneous Notes Prescription Refill Information The patient has been identified by name and date of : Yes Caregiver verified no other encounters exist for this prescription request: Yes Caregiver confirmed with patient/requestor that no other refills are due, in the near future, with this provider at this time: Yes The last office visit in the department: 06/17/2024 Does the patient have a future office visit with this provider/department: Yes Requested Prescriptions Pending Prescriptions Disp Refills lisinopril (ZESTRIL) 40 mg tablet 90 tablet 1 Sig: Take 1 tablet by mouth once daily. Daylin Booker LPN July 16, 2024 8:42 AM documented in this encounter [facility] 07-10-2024 Telephone encounter Note [facility] called and is notified of providers message and instructions. She voices understanding. Gisela Quinn RN [facility] 07-10-2024 Miscellaneous Notes [facility] called and is notified of providers message and instructions. She voices understanding. Gisela Quinn RN She has tolerated doxy. I confirmed with her today. Okay to fill script as written. Adelaida Pichardo PA-C [facility] pharmacy calling, they received the prescription for Doxycyline. They have an allergy on file for Tetracycline that caused a rash. Asking if this should still be dispensed or should an alternative be prescribed. Please advise. documented in this encounter [facility] 07-10-2024 Telephone encounter Note She has tolerated doxy. I confirmed with her today. Okay to fill script as written. Adelaida Pichardo PA-C [facility] 07-10-[address] [facility] pharmacy calling, they received the prescription for Doxycyline. They have an allergy on file for Tetracycline that caused a rash. Asking if this should still be dispensed or should an alternative be prescribed. Please advise. [facility] 07-10-2024 History of Present illness Narrative Chief Complaint Patient presents with: Sinus Problem HPI Terri Villar is a 69 year old female who presents here today for Above Complaints.. Patient states that for the past few days she has had increasing sinus pain. Recently had viral illness and started to feel better No fevers. No sore throat No cough or shortness of breath. Past medical history, appointments, medications, allergies reviewed. Previous Medical History PAST MEDICAL HISTORY Diagnosis Date Chronic kidney disease, stage III (moderate) (HCC) DDD (degenerative disc disease), cervical Dr Morfin Folate deficiency Gastritis GERD (gastroesophageal reflux disease) History of COVID-19 07/12/202106/2021 HLD (hyperlipidemia) HTN (hypertension) MTHFR mutation Osteoarthritis Pain, abdominal, RLQ Pericardial effusion RUQ pain Thyroid nodule Previous Surgical History PAST SURGICAL HISTORY Procedure Laterality Date DELIVERY ONLY 10/02/1984 , low transverse Family History FAMILY HISTORY Problem Relation Age of Onset Breast Cancer Mother 74 Heart Brother Diabetes Paternal Grandmother Patient Allergies ALLERGIES Allergen Reactions Amoxicillin Itching Asa [Salicylates] Itching Codeine Itching Cortizone-10 [[place]* Itching Cymbalta [Duloxetin* Intolerance One pill: bruning all over Dolobid [Diflunisal] Itching Duricef [Cefadroxil] Itching Dye Shortness of Breath Ct dye. Including rash Entex La [Phenyleph* Itching Erythromycin Itching Flu Vac 2014 (65 Up* Shortness of Breath Keflex [Cephalexin] Itching Levaquin [Levofloxa* Other: See Comments itching Macrobid [Nitrofura* Other: See Comments Fast heart rate Mobic [Meloxicam] Itching Morphine Itching Pantoprazole Itching Penicillins Hives Prednisolone Other: See Comments Elevated blood pressure. Has done well with medrol dose april. Prilosec [Omeprazol* Itching Septra [Sulfamethox* Hives Sulfa (Sulfonamide * Hives Tetracycline Hives Can take doxycycline Current Medications Current Outpatient Medications on File Prior to Visit Medication Sig lansoprazole (PREVACID) 15 mg capsule Take 1 capsule by mouth daily before breakfast. atorvastatin (LIPITOR) 10 mg tablet Take 1 tablet by mouth daily at bedtime. For cholesterol. conjugated estrogens (PREMARIN) vaginal cream Use 2 g vaginally two times a week. fluticasone (FLONASE) 50 mcg/actuation nasal spray Use 2 Sprays in each nostril once daily. Rinse mouth after use. ondansetron orally disintegrating (ZOFRAN ODT) 4 mg disintegrating tablet Take 1 tablet by mouth every 6 hours as needed for nausea/vomiting. lisinopril (ZESTRIL) 40 mg tablet Take 1 tablet by mouth once daily. vitamin b complex (B-COMPLEX) tab Take 1 tablet by mouth once daily. No current facility-administered medications on file prior to visit. Social History Social History Tobacco Use Smoking status: Former Smokeless tobacco: Never Vaping Use Vaping status: Never Used Substance Use Topics Alcohol use: No Drug use: No Review of Symptoms REVIEW OF SYSTEMS See hpi EXAM: BP 106/78 (BP Site: Left Arm, BP Position: Sitting, BP Cuff Size: Regular Adult) Pulse 78 Temp 36.7 C (98.1 F) Resp 16 Wt 55.8 kg (123 lb) SpO2 97% BMI 21.11 kg/m General Appearance: Well appearing, alert, in no acute distress, well-hydrated, well nourished.. Ears: External ears normal, canals clear, TMs pearly cabrera. Nose/Sinuses: Nares normal, septum midline, mucosa normal, no drainage or sinus tenderness. Oropharynx: Lips, mucosa, and tongue normal, teeth and gums normal, oropharynx normal. Neck: Supple, no adenopathy; thyroid symmetric, normal size, no bruits. Lungs: Lungs clear to auscultation. No wheezing, rhonchi, rales.. Heart: RRR without murmur, gallop, or rubs. No ectopy. Health Maintenance List BP Controlled (<130/80) due on 09/07/2023 Mammogram Screening due on 10/18/2024 Shingrix Vaccine(1 of 2) due on 10/25/2024 Pneumococcal Vaccine: 65+(1 of 1 - PCV) due on 10/25/2024 Covid-19 Vaccine(2 - season) due on 06/17/2025 Depression Screening due on 01/04/2025 Serum Creatinine due on 06/11/2025 Annual PCP Team Chronic Disease Visit due on 06/19/2025 Bone Density Screening due on 06/13/2026 Colorectal Cancer Screening due on 03/29/2027 Diabetes Screening due on 06/11/2027 RSV Vaccine(1 - 1-dose 75+ series) due on 2028 Lipid Screening due on 05/23/2029 DTaP,Tdap,Td Vaccine(2 - Td or Tdap) due on 10/13/2031 Advance Directive Discussion Completed Hepatitis C Screening Completed Influenza Vaccine Discontinued Data reviewed ASSESSMENT/PLAN: 1. Acute pansinusitis, recurrence not specified - ICD9: 461.8, ICD10: J01.40 - Will begin treatment with as per antibiotic as written, see orders - Supportive care with plenty of fluids, rest, and analgesia prn. - Follow up in one week if symptoms persist or worsen. Adelaida Pichardo PA-C documented in this encounter [facility] 07-04-2024 History of Present illness Narrative Radiology Service Progress Note PATIENT NAME: Terri Villar DATE OF SERVICE: July 04, 2024 TIME: 2:05 PM PATIENT IDENTITY VERIFICATION COMPLETED USING TWO (2) IDENTIFIERS: Name and Date of confirmed by patient verbally. FALL SCREENING: Has the patient had 2 falls in the last year or 1 fall with injury or currently using an Ambulatory Assistive Device (Walker, Cane, Wheelchair, Crutches, etc.)? No PATIENT GENDER DATA: Female. status: : No status: NO. PATIENT RELEVANT IMPLANT DATA REVIEWED: Not Applicable PATIENT PRESENTS WITH AN IMPLANTABLE OR ATTACHED AUDIO PRODUCTION MANAGER: No RADIOLOGY DEPARTMENT: Ultrasound PERIPHERAL IV DATA: Not applicable SIGNED BY: mE Madrid RDMS RVT July 04, 2024 2:05 PM documented in this encounter [facility] 06-24-2024 Telephone encounter Note Mychart message read by pt on 06/21/24. Brianna Varghese MA [facility] 06-24-2024 Miscellaneous Notes [employer] message read by pt on 06/21/24. Brianna Varghese MA Phoned patient left message to return call and ask to speak to a nurse for results. ----- Message from Ryan Dalton MD sent at 06/20/2024 8:44 AM EDT ----- Negative for COVID, flu and RSV. Continue treatment as discussed in office for viral illness. documented in this encounter [facility] 06-20-2024 Telephone encounter Note Phoned patient left message to return call and ask to speak to a nurse for results. [facility] 06-20-2024 Telephone encounter Note ----- Message from Ryan Dalton MD sent at 06/20/2024 8:44 AM EDT ----- Negative for COVID, flu and RSV. Continue treatment as discussed in office for viral illness. [facility] 06-19-2024 History of Present illness Narrative Chief Complaint Patient presents with: Same Day Appointment HPI Terri Villar is a 69 year old female who presents here today for Above Complaints.. Patient complaining of 2 day history of sore throat, nasal congestion, rhinorrhea, left ear pain, dry cough, mild headache, fatigue, and myalgias. Patient is treating with tylenol and dayquil which does take the edge off of her symptoms. Denies fever/chills, SOB, wheezing, chest pain, chest congestion, new loss of taste/smell, sinus pain, nausea, vomiting, diarrhea. No known COVID exposure in the last 2 weeks. No other sick contacts. Patient took rapid test for COVID today which was negative. Symptoms stable. Past medical history, appointments, medications, allergies reviewed. Previous Medical History PAST MEDICAL HISTORY Diagnosis Date Chronic kidney disease, stage III (moderate) (HCC) DDD (degenerative disc disease), cervical Dr Morfin Folate deficiency Gastritis GERD (gastroesophageal reflux disease) History of COVID-19 07/12/202106/2021 HLD (hyperlipidemia) HTN (hypertension) MTHFR mutation Osteoarthritis Pain, abdominal, RLQ Pericardial effusion RUQ pain Thyroid nodule Previous Surgical History PAST SURGICAL HISTORY Procedure Laterality Date DELIVERY ONLY 10/02/1984 , low transverse Family History FAMILY HISTORY Problem Relation Age of Onset Breast Cancer Mother 74 Heart Brother Diabetes Paternal Grandmother Patient Allergies ALLERGIES Allergen Reactions Amoxicillin Itching Asa [Salicylates] Itching Codeine Itching Cortizone-10 [[place]* Itching Cymbalta [Duloxetin* Intolerance One pill: bruning all over Dolobid [Diflunisal] Itching Duricef [Cefadroxil] Itching Dye Shortness of Breath Ct dye. Including rash Entex La [Phenyleph* Itching Erythromycin Itching Flu Vac 2014 (65 Up* Shortness of Breath Keflex [Cephalexin] Itching Levaquin [Levofloxa* Other: See Comments itching Macrobid [Nitrofura* Other: See Comments Fast heart rate Mobic [Meloxicam] Itching Morphine Itching Pantoprazole Itching Penicillins Hives Prednisolone Other: See Comments Elevated blood pressure. Has done well with medrol dose april. Prilosec [Omeprazol* Itching Septra [Sulfamethox* Hives Sulfa (Sulfonamide * Hives Tetracycline Hives Can take doxycycline Current Medications Current Outpatient Medications on File Prior to Visit Medication Sig lansoprazole (PREVACID) 15 mg capsule Take 1 capsule by mouth daily before breakfast. atorvastatin (LIPITOR) 10 mg tablet Take 1 tablet by mouth daily at bedtime. For cholesterol. conjugated estrogens (PREMARIN) vaginal cream Use 2 g vaginally two times a week. fluticasone (FLONASE) 50 mcg/actuation nasal spray Use 2 Sprays in each nostril once daily. Rinse mouth after use. ondansetron orally disintegrating (ZOFRAN ODT) 4 mg disintegrating tablet Take 1 tablet by mouth every 6 hours as needed for nausea/vomiting. lisinopril (ZESTRIL) 40 mg tablet Take 1 tablet by mouth once daily. vitamin b complex (B-COMPLEX) tab Take 1 tablet by mouth once daily. No current facility-administered medications on file prior to visit. Social History Social History Tobacco Use Smoking status: Former Smokeless tobacco: Never Vaping Use Vaping status: Never Used Substance Use Topics Alcohol use: No Drug use: No Review of Symptoms REVIEW OF SYSTEMS See HPI EXAM: BP 138/82 (BP Site: Left Arm, BP Position: Sitting, BP Cuff Size: Regular Adult) Pulse 67 Temp 36.7 C (98 F) Resp 12 Ht 162.6 cm (5' 4) Wt 55.7 kg (122 lb 12.8 oz) SpO2 97% BMI 21.08 kg/m General Appearance: Well appearing, alert, in no acute distress, well-hydrated, well nourished.. Skin: Skin color, texture, turgor normal, no suspicious rashes or lesions. Head: Normocephalic, no masses, lesions, tenderness or abnormalities. Eyes: Anicteric sclera. Pupils are equally round and reactive to light. Extraocular movements are intact. . Ears: External ears normal, canals clear. Nose/Sinuses: Nares normal, septum midline, mucosa normal, no drainage or sinus tenderness. Oropharynx: Lips, mucosa, and tongue normal, teeth and gums normal, oropharynx normal. Neck: Supple, no adenopathy; thyroid symmetric, normal size, no bruits. Lungs: Lungs clear to auscultation. No wheezing, rhonchi, rales.. Heart: RRR without murmur, gallop, or rubs. No ectopy. Health Maintenance List BP Controlled (<130/80) due on 09/07/2023 Mammogram Screening due on 10/18/2024 RSV Vaccine(1 - 1-dose 60+ series) due on 08/21/2024 Shingrix Vaccine(1 of 2) due on 10/25/2024 Pneumococcal Vaccine: 65+(1 of 1 - PCV) due on 10/25/2024 Covid-19 Vaccine(2 - 2022- season) due on 06/17/2025 Depression Screening due on 01/04/2025 Serum Creatinine due on 06/11/2025 Annual PCP Team Chronic Disease Visit due on 06/17/2025 Bone Density Screening due on 06/13/2026 Colorectal Cancer Screening due on 03/29/2027 Diabetes Screening due on 06/11/2027 Lipid Screening due on 05/23/2029 DTaP,Tdap,Td Vaccine(2 - Td or Tdap) due on 10/13/2031 Advance Directive Discussion Completed Hepatitis C Screening Completed Influenza Vaccine Discontinued ASSESSMENT/PLAN: 1. Suspected COVID-19 virus infection - ICD9: V01.79, ICD10: Z20.822 (primary diagnosis) Will swab today for COVID/flu/RSV. If positive recommend rest, supportive care, and should isolate until: At least 24 hours have passed since last fever without the use of fever-reducing medications and Symptoms (e.g., cough, shortness of breath) have improved. Should wear mask for at least 5 days after he ends isolation to prevent spread to others. Discussed risks and benefits of Paxlovid and Lagevrio if she were to be positive. - COVID & INFLUENZA A/B & RSV PCR, ROUTINE 2. Viral URI with cough - ICD9: 465.9, ICD10: J06.9 - Discussed viral etiology and rationale for treatment. - Symptomatic treatment with prn analgesia - Supportive care with fluids and rest - The patient may also use OTC cough and cold meds as needed, warm salt water gargles, throat lozenges and/or OTC throat spray as needed, and nasal saline gtts and suction prn. - Follow up in one week if symptoms persist or sooner if worsening of symptoms Ryan Dalton MD documented in this encounter [facility] 06-17-2024 Instructions Bridget De Luna MD - 06/17/2024 2:24 PM EDT You need scopes performed. You will need to travel for them. Please get set up. documented in this encounter [facility] 06-17-2024 History of Present illness Narrative Patient presents with: Follow Up HPI: Patient presents today for office visit for follow up. No concerns today. GERD: Continues on Lansoprazole 15 mg daily. Symptoms controlled. Denies heartburn. No GI concerns. Denies any bloody or black stool. HLD: Continues on Atorvastatin 10 mg daily. No myalgias. HTN: Monitors BP. Stable. Denies chest pain and shortness of breath. Denies headaches and dizziness. Denies palpitations and syncope. Denies edema. Still does not have colonoscopy or egd. Give issues with her stomach , biophosphates are not a good idea. Reinforced need to get them done. No current bowel changes. Never did get her prolia that was previously ordered. Suggested we could have her see endo. Latest Ref Rng 06/11/2024 WBC 3.70 - 11.00 k/uL 5.87 RBC 3.90 - 5.20 m/uL 4.60 Hemoglobin 11.5 - 15.5 g/dL 14.4 Hematocrit 36.0 - 46.0 % 45.1 MCV 80.0 - 100.0 fL 98.0 MCH 26.0 - 34.0 pg 31.3 MCHC 30.5 - 36.0 g/dL 31.9 RDW-CV 11.5 - 15.0 % 12.8 Platelet Count 150 - 400 k/uL 226 MPV 9.0 - 12.7 fL 11.1 Neut% % 57.3 Abs Neut (ANC) 1.45 - 7.50 k/uL 3.36 Lymph% % 33.7 Abs Lymph 1.00 - 4.00 k/uL 1.98 Hodgeman% % 7.8 Abs Hodgeman <0.87 k/uL 0.46 Eosin% % 0.7 Abs Eosin <0.46 k/uL 0.04 Baso% % 0.3 Abs Baso <0.11 k/uL <0.03 Immature Gran % % 0.2 IMMATURE GRANS (ABS) <0.10 k/uL <0.03 NRBC /100 WBC 0.0 Absolute nRBC <0.01 k/uL <0.01 DTYPE Auto Protein, Total 6.3 - 8.0 g/dL 7.0 Albumin 3.9 - 4.9 g/dL 4.0 Calcium 8.5 - 10.2 mg/dL 9.6 Bilirubin, Total 0.2 - 1.3 mg/dL 0.7 Alkaline Phosphatase 34 - 123 U/L 89 AST 13 - 35 U/L 25 ALT 7 - 38 U/L 20 Glucose 74 - 99 mg/dL 80 BUN 7 - 21 mg/dL 10 Creatinine 0.58 - 0.96 mg/dL 0.94 Sodium 136 - 144 mmol/L 139 Potassium 3.7 - 5.1 mmol/L 4.3 Chloride 98 - 107 mmol/L 102 CO2 22 - 30 mmol/L 25 Anion Gap 8 - 15 mmol/L 12 eGFR >=60 mL/min/1.73m 65 Iron 41 - 186 ug/dL 73 TIBC 232 - 386 ug/dL 372 Transferrin Saturation 15.0 - 57.0 % 19.6 Hemoglobin A1C 4.3 - 5.6 % 5.0 Estimated Average Glucose mg/dL 97 Folate >4.7 ng/mL 5.7 Ferritin 14.7 - 205.1 ng/mL 40.3 Vitamin B12 232 - 1,245 pg/mL 338 TSH 0.270 - 4.200 mIU/L 1.[address] IMPRESSION: Stable 1.2 cm uncinate process pancreatic cyst, likely IPMN. MEDICATIONS: Current Outpatient Medications Medication Sig lansoprazole (PREVACID) 15 mg capsule Take 1 capsule by mouth daily before breakfast. atorvastatin (LIPITOR) 10 mg tablet Take 1 tablet by mouth daily at bedtime. For cholesterol. conjugated estrogens (PREMARIN) vaginal cream Use 2 g vaginally two times a week. fluticasone (FLONASE) 50 mcg/actuation nasal spray Use 2 Sprays in each nostril once daily. Rinse mouth after use. ondansetron orally disintegrating (ZOFRAN ODT) 4 mg disintegrating tablet Take 1 tablet by mouth every 6 hours as needed for nausea/vomiting. lisinopril (ZESTRIL) 40 mg tablet Take 1 tablet by mouth once daily. vitamin b complex (B-COMPLEX) tab Take 1 tablet by mouth once daily. No current facility-administered medications for this visit. ALLERGIES: ALLERGIES Allergen Reactions Amoxicillin Itching Asa [Salicylates] Itching Codeine Itching Cortizone-10 [[place]* Itching Cymbalta [Duloxetin* Intolerance One pill: bruning all over Dolobid [Diflunisal] Itching Duricef [Cefadroxil] Itching Dye Shortness of Breath Ct dye. Including rash Entex La [Phenyleph* Itching Erythromycin Itching Flu Vac 2014 (65 Up* Shortness of Breath Keflex [Cephalexin] Itching Levaquin [Levofloxa* Other: See Comments itching Macrobid [Nitrofura* Other: See Comments Fast heart rate Mobic [Meloxicam] Itching Morphine Itching Pantoprazole Itching Penicillins Hives Prednisolone Other: See Comments Elevated blood pressure. Has done well with medrol dose april. Prilosec [Omeprazol* Itching Septra [Sulfamethox* Hives Sulfa (Sulfonamide * Hives Tetracycline Hives Can take doxycycline PAST MEDICAL HISTORY Diagnosis Date Chronic kidney disease, stage III (moderate) (HCC) DDD (degenerative disc disease), cervical Dr Morfin Folate deficiency Gastritis GERD (gastroesophageal reflux disease) History of COVID-19 07/12/202106/2021 HLD (hyperlipidemia) HTN (hypertension) MTHFR mutation Osteoarthritis Pain, abdominal, RLQ Pericardial effusion RUQ pain Thyroid nodule PAST SURGICAL HISTORY Procedure Laterality Date DELIVERY ONLY 10/02/1984 , low transverse FAMILY HISTORY Problem Relation Age of Onset Breast Cancer Mother 74 Heart Brother Diabetes Paternal Grandmother Social History Tobacco Use Smoking status: Former Smokeless tobacco: Never Vaping Use Vaping status: Never Used Substance Use Topics Alcohol use: No Drug use: No Reviewed current medications, allergies, past medical history, surgical history, family history and social history today. REVIEW OF SYSTEMS All other reviewed and negative other than HPI. HEALTH MAINTENANCE: Reviewed health maintenance issues today and recommended the following in detail. BP Controlled (<130/80) due on 09/07/2023 Covid-19 Vaccine(2022- season) due on 06/02/2024 VITALS: BP 130/80 Pulse 76 Ht 162.6 cm (5' 4) Wt 55.8 kg (123 lb 0.3 oz) BMI 21.12 kg/m Last 4 Encounter Wt Readings: Date: Wt: 06/11/2024 55.8 kg (123 lb) 06/05/2024 56.7 kg (125 lb) 05/23/2024 56.2 kg (124 lb) 05/10/2024 56.1 kg (123 lb 10.9 oz) PHYSICAL EXAMINATION: General appearance: Well appearing, alert, in no acute distress, well-hydrated, well nourished. Skin: Skin color, texture, turgor normal, no suspicious rashes or lesions Head: Normocephalic, no masses, lesions, tenderness or abnormalities Eyes: Anicteric sclera. Pupils are equally round and reactive to light. Extraocular movements are intact. Lungs: Lungs clear to auscultation. No wheezing, rhonchi, rales Heart: RRR without murmur, gallop, or rubs. No ectopy Abdomen: Normal abdominal exam, Abdomen soft, non-tender. Bowel sounds normal. No masses, organomegaly Extremities: No deformities, edema, skin discoloration, clubbing or cyanosis. Good capillary refill. ASSESSMENT/PLAN: 1. Primary hypertension - ICD9: 401.9, ICD10: I10 (primary diagnosis) - Controlled - Continue current medications 2. Mixed hyperlipidemia - ICD9: 272.2, ICD10: E78.2 - Controlled - Continue current medications 3. Pericardial effusion - ICD9: 423.9, ICD10: I31.39 - last echo looks better. 4. Lung nodule - ICD9: 793.11, ICD10: R91.1 - last ct in 09/23. Unchanged. 5. GERD without esophagitis - ICD9: 530.81, ICD10: K21.9 - given her osteoporsis. Not sure she can tolerate first line agents. Had suggested prolia vs reclast. Wll see endo. - CONSULT TO ENDOCRINOLOGY 6. Chronic kidney disease, stage 3a (HCC) - ICD9: 585.3, ICD10: N18.31 - follow labs. 7. Thyroid nodule - ICD9: 241.0, ICD10: E04.1 - get annual us - US THYROID/PARATHYROID 8. DDD (degenerative disc disease), lumbar - ICD9: 722.52, ICD10: M51.36 - stable. 9. DDD (degenerative disc disease), cervical - ICD9: 722.4, ICD10: M50.30 - stable. 10. Anxiety - ICD9: 300.00, ICD10: F41.9 - stable. 11. Osteoporosis without current pathological fracture, unspecified osteoporosis type - ICD9: 733.00, ICD10: M81.0 - as above. Has issus with her gi tract that limit meds. - CONSULT TO ENDOCRINOLOGY 12. IPMN (intraductal papillary mucinous neoplasm) - ICD9: 239.0, ICD10: D49.0 - stale. Per surgery Bridget De Luna MD documented in this encounter [facility] 06-13-2024 History of Present illness Narrative Radiology Service Progress Note PATIENT NAME: Terri Villar DATE OF SERVICE: June 13, 2024 TIME: 8:59 AM PATIENT IDENTITY VERIFICATION COMPLETED USING TWO (2) IDENTIFIERS: Name and Date of confirmed by patient verbally. FALL SCREENING: Has the patient had 2 falls in the last year or 1 fall with injury or currently using an Ambulatory Assistive Device (Walker, Cane, Wheelchair, Crutches, etc.)? No PATIENT GENDER DATA: Female. status: : No status: NO. PATIENT RELEVANT IMPLANT DATA REVIEWED: Not Applicable PATIENT PRESENTS WITH AN IMPLANTABLE OR ATTACHED AUDIO PRODUCTION MANAGER: No RADIOLOGY DEPARTMENT: Bone Density PERIPHERAL IV DATA: Not applicable SIGNED BY: RT Linda(R) June 13, 2024 8:59 AM documented in this encounter [facility] 06-11-2024 Instructions Daylin Mendenhall APRN.CNP - 06/11/2024 10:00 AM EDT 1) Check labs 2) Continue Zofran for nausea as needed (Ondansetron) 3) Switch famotidine to lansoprazole 15 mg daily 4) Keep appointment with Dr. De Luna 06/25 documented in this encounter [facility] 06-11-2024 History of Present illness Narrative This is a 69 year old female who presents today with: Patient presents with: Nausea Fatigue HISTORY OF PRESENT ILLNESS: Terri Villar is a 69 year old female. Patient presents with: Nausea Fatigue Feeling tired and nauseated for 3-4 days. No fever or chills. No headache. No change in body aches. No cough. No diarrhea or constipation No hematuria or dysuria. PAST MEDICAL HISTORY: PAST MEDICAL HISTORY No date: Chronic kidney disease, stage III (moderate) (HCC) No date: DDD (degenerative disc disease), cervical Comment: Dr Morfin No date: Folate deficiency No date: Gastritis No date: GERD (gastroesophageal reflux disease) 07/12/2021: History of COVID-19 Comment: 06/2021 No date: HLD (hyperlipidemia) No date: HTN (hypertension) No date: MTHFR mutation No date: Osteoarthritis No date: Pain, abdominal, RLQ No date: Pericardial effusion No date: RUQ pain No date: Thyroid nodule PAST SURGICAL HISTORY 10/02/1984: DELIVERY ONLY Comment: , low transverse ALLERGIES Amoxicillin, Asa [Salicylates], Codeine, Cortizone-10 [Hydrocortisone], Cymbalta [Duloxetine], Dolobid [Diflunisal], Duricef [Cefadroxil], Dye, Entex La [Phenylephrine-Guaifenesin], Erythromycin, Flu Vac 2015 (65 Up)-Mf59c(Pf), Keflex [Cephalexin], Levaquin [Levofloxacin], Macrobid [Nitrofurantoin Monohyd/M-Cryst], Mobic [Meloxicam], Morphine, Pantoprazole, Penicillins, Prednisolone, Prilosec [Omeprazole], Septra [Sulfamethoxazole-Trimethoprim], Sulfa (Sulfonamide Antibiotics), and Tetracycline MEDICATIONS Current Outpatient Medications Medication Sig atorvastatin (LIPITOR) 10 mg tablet Take 1 tablet by mouth daily at bedtime. For cholesterol. conjugated estrogens (PREMARIN) vaginal cream Use 2 g vaginally two times a week. fluticasone (FLONASE) 50 mcg/actuation nasal spray Use 2 Sprays in each nostril once daily. Rinse mouth after use. ondansetron orally disintegrating (ZOFRAN ODT) 4 mg disintegrating tablet Take 1 tablet by mouth every 6 hours as needed for nausea/vomiting. lisinopril (ZESTRIL) 40 mg tablet Take 1 tablet by mouth once daily. vitamin b complex (B-COMPLEX) tab Take 1 tablet by mouth once daily. famotidine (PEPCID) 20 mg tablet Take 1 tablet by mouth two times a day. No current facility-administered medications for this visit. FAMILY HISTORY Problem Relation Age of Onset Breast Cancer Mother 74 Heart Brother Diabetes Paternal Grandmother Social History Tobacco Use Smoking status: Former Smokeless tobacco: Never Vaping Use Vaping status: Never Used Substance Use Topics Alcohol use: No Drug use: No EXAM: BP 122/80 Pulse 70 Temp 36.4 C (97.6 F) (Temporal) Resp 16 Wt 55.8 kg (123 lb) SpO2 97% BMI 21.11 kg/m PHYSICAL EXAM: Physical Exam Vitals reviewed. Constitutional: Appearance: Normal appearance. HENT: Head: Normocephalic. Right Ear: External ear normal. There is impacted cerumen. Left Ear: Ear canal and external ear normal. There is no impacted cerumen. Nose: Nose normal. Mouth/Throat: Mouth: Mucous membranes are moist. Pharynx: Oropharyngeal exudate and posterior oropharyngeal erythema present. Cardiovascular: Rate and Rhythm: Normal rate and regular rhythm. Pulses: Normal pulses. Heart sounds: Normal heart sounds. Pulmonary: Effort: Pulmonary effort is normal. Breath sounds: Normal breath sounds. Abdominal: General: Bowel sounds are normal. There is no distension. Palpations: Abdomen is soft. Tenderness: There is no abdominal tenderness. There is no guarding. Hernia: No hernia is present. Skin: General: Skin is warm and dry. Neurological: Mental Status: She is alert. LABS: check labs ASSESSMENT/PLAN: 1. Gastroesophageal reflux disease without esophagitis - ICD9: 530.81, ICD10: K21.9 (primary diagnosis) - stop famotidine and switch to - LANSOPRAZOLE 15 MG CAPSULE,DELAYED RELEASE 2. Chronic fatigue - ICD9: 780.79, ICD10: R53.82 Check labs - COMPLETE BLOOD COUNT AND DIFFERENTIAL - FOLATE, SERUM - IRON AND TIBC - FERRITIN - VITAMIN B12 - COMPREHENSIVE METABOLIC PANEL - HEMOGLOBIN A1C - THYROID STIMULATING HORMONE Discussed treatment plan and patient voices understanding. Patient's questions answered appropriately. Medications and potential side effects were discussed and patient voices understanding. Return to the office as scheduled or as needed for worsening/no improvement. Daylin Mendenhall APRN.WILFREDO documented in this encounter [facility] 06-05-2024 History of Present illness Narrative Chief Complaint Patient presents with: rib pain: X 2 days HPI Terri Villar is a 69 year old female who presents here today for Above Complaints.. Patient presents for bilateral rib pain x2 days after lifting a case of water in [facility]. Reports use of aspercreme, tylenol and heating paid which give her moderate relief. Patient denies CP, SOB. Past medical history, appointments, medications, allergies reviewed. Previous Medical History PAST MEDICAL HISTORY No date: Chronic kidney disease, stage III (moderate) (HCC) No date: DDD (degenerative disc disease), cervical Comment: Dr Morfin No date: Folate deficiency No date: Gastritis No date: GERD (gastroesophageal reflux disease) 07/12/2021: History of COVID-19 Comment: 06/2021 No date: HLD (hyperlipidemia) No date: HTN (hypertension) No date: MTHFR mutation No date: Osteoarthritis No date: Pain, abdominal, RLQ No date: Pericardial effusion No date: RUQ pain No date: Thyroid nodule Previous Surgical History PAST SURGICAL HISTORY 10/02/1984: DELIVERY ONLY Comment: , low transverse Family History FAMILY HISTORY Problem Relation Age of Onset Breast Cancer Mother 74 Heart Brother Diabetes Paternal Grandmother Patient Allergies ALLERGIES Allergen Reactions Amoxicillin Itching Asa [Salicylates] Itching Codeine Itching Cortizone-10 [[place]* Itching Cymbalta [Duloxetin* Intolerance One pill: bruning all over Dolobid [Diflunisal] Itching Duricef [Cefadroxil] Itching Dye Shortness of Breath Ct dye. Including rash Entex La [Phenyleph* Itching Erythromycin Itching Flu Vac 2014 (65 Up* Shortness of Breath Keflex [Cephalexin] Itching Levaquin [Levofloxa* Other: See Comments itching Macrobid [Nitrofura* Other: See Comments Fast heart rate Mobic [Meloxicam] Itching Morphine Itching Pantoprazole Itching Penicillins Hives Prednisolone Other: See Comments Elevated blood pressure. Has done well with medrol dose april. Prilosec [Omeprazol* Itching Septra [Sulfamethox* Hives Sulfa (Sulfonamide * Hives Tetracycline Hives Can take doxycycline Current Medications Current Outpatient Medications on File Prior to Visit Medication Sig atorvastatin (LIPITOR) 10 mg tablet Take 1 tablet by mouth daily at bedtime. For cholesterol. conjugated estrogens (PREMARIN) vaginal cream Use 2 g vaginally two times a week. fluticasone (FLONASE) 50 mcg/actuation nasal spray Use 2 Sprays in each nostril once daily. Rinse mouth after use. ondansetron orally disintegrating (ZOFRAN ODT) 4 mg disintegrating tablet Take 1 tablet by mouth every 6 hours as needed for nausea/vomiting. lisinopril (ZESTRIL) 40 mg tablet Take 1 tablet by mouth once daily. vitamin b complex (B-COMPLEX) tab Take 1 tablet by mouth once daily. famotidine (PEPCID) 20 mg tablet Take 1 tablet by mouth two times a day. No current facility-administered medications on file prior to visit. Social History Social History Tobacco Use Smoking status: Former Smokeless tobacco: Never Vaping Use Vaping status: Never Used Substance Use Topics Alcohol use: No Drug use: No Review of Symptoms REVIEW OF SYSTEMS SEE HPI EXAM: BP 127/78 Pulse 74 Resp 14 Wt 56.7 kg (125 lb) BMI 21.46 kg/m General Appearance: Well appearing, alert, in no acute distress, well-hydrated, well nourished Chest: Bilateral lateral ribs tender with palpation. No obvious deformity. Lungs: Lungs clear to auscultation. No wheezing, rhonchi, rales.. Heart: RRR without murmur, gallop, or rubs. No ectopy. Health Maintenance List BP Controlled (<130/80) due on 09/07/2023 Covid-19 Vaccine( season) due on 06/02/2024 Bone Density Screening due on 05/31/2024 Mammogram Screening due on 10/18/2024 RSV Vaccine(1 - 1-dose 60+ series) due on 08/21/2024 Shingrix Vaccine(1 of 2) due on 10/25/2024 Pneumococcal Vaccine: 65+(1 of 1 - PCV) due on 10/25/2024 Depression Screening due on 01/04/2025 Annual PCP Team Chronic Disease Visit due on 04/22/2025 Serum Creatinine due on 05/23/2025 Hemoglobin/Hematocrit due on 05/23/2025 Colorectal Cancer Screening due on 03/29/2027 Diabetes Screening due on 05/23/2027 Lipid Screening due on 05/23/2029 DTaP,Tdap,Td Vaccine(2 - Td or Tdap) due on 10/13/2031 Advance Directive Discussion Completed Hepatitis C Screening Completed Influenza Vaccine Discontinued ASSESSMENT/PLAN: 1. Muscle strain of chest wall, initial encounter - ICD9: 848.8, ICD10: S29.011A -Patient to continue current conservative measures and avoid lifting over 10 pounds for 2 weeks. Kathy Jansen APRN.CNP documented in this encounter [facility] 05-31-2024 History of Present illness Narrative Radiology Service Progress Note PATIENT NAME: Terri Villar DATE OF SERVICE: May 31, 2024 TIME: 4:00 PM PATIENT IDENTITY VERIFICATION COMPLETED USING TWO (2) IDENTIFIERS: Name and Date of confirmed by patient verbally. FALL SCREENING: Has the patient had 2 falls in the last year or 1 fall with injury or currently using an Ambulatory Assistive Device (Walker, Cane, Wheelchair, Crutches, etc.)? No PATIENT GENDER DATA: Female. status: : No status: NO. PATIENT RELEVANT IMPLANT DATA REVIEWED: Not Applicable PATIENT PRESENTS WITH AN IMPLANTABLE OR ATTACHED AUDIO PRODUCTION MANAGER: No RADIOLOGY DEPARTMENT: CT; Exam(s) Completed: Abdomen/Pelvis PERIPHERAL IV DATA: Not applicable SIGNED BY: RT Anna(R) May 31, 2024 4:00 PM documented in this encounter [facility] 05-24-2024 Telephone encounter Note The following approved medication requests have been transmitted electronically. Requested Prescriptions Pending Prescriptions Disp Refills atorvastatin (LIPITOR) 10 mg tablet 90 tablet 3 Sig: Take 1 tablet by mouth daily at bedtime. For cholesterol. Daylin Mendenhall APRN.CNP [facility] 05-24-2024 Miscellaneous Notes The following approved medication requests have been transmitted electronically. Requested Prescriptions Pending Prescriptions Disp Refills atorvastatin (LIPITOR) 10 mg tablet 90 tablet 3 Sig: Take 1 tablet by mouth daily at bedtime. For cholesterol. Daylin Mendenhall APRN.CNP Prescription Refill Information The patient has been identified by name and date of : Yes Caregiver verified no other encounters exist for this prescription request: Yes Caregiver confirmed with patient/requestor that no other refills are due, in the near future, with this provider at this time: Yes The last office visit in the department: yes Does the patient have a future office visit with this provider/department: Yes Requested Prescriptions Pending Prescriptions Disp Refills atorvastatin (LIPITOR) 10 mg tablet 90 tablet 3 Sig: Take 1 tablet by mouth daily at bedtime. For cholesterol. Dianna Durant LPN May 24, 2024 9:37 AM documented in this encounter [facility] 05-24-2024 Telephone encounter Note Prescription Refill Information The patient has been identified by name and date of : Yes Caregiver verified no other encounters exist for this prescription request: Yes Caregiver confirmed with patient/requestor that no other refills are due, in the near future, with this provider at this time: Yes The last office visit in the department: yes Does the patient have a future office visit with this provider/department: Yes Requested Prescriptions Pending Prescriptions Disp Refills atorvastatin (LIPITOR) 10 mg tablet 90 tablet 3 Sig: Take 1 tablet by mouth daily at bedtime. For cholesterol. Dianna Durant LPN May 24, 2024 9:37 AM [facility] 05-23-2024 History of Present illness Narrative Radiology Service Progress Note PATIENT NAME: Terri Villar DATE OF SERVICE: May 23, 2024 TIME: 10:15 AM PATIENT IDENTITY VERIFICATION COMPLETED USING TWO (2) IDENTIFIERS: Name and Date of confirmed by patient verbally. FALL SCREENING: Has the patient had 2 falls in the last year or 1 fall with injury or currently using an Ambulatory Assistive Device (Walker, Cane, Wheelchair, Crutches, etc.)? No PATIENT GENDER DATA: Female. status: : No status: NO. PATIENT RELEVANT IMPLANT DATA REVIEWED: Not Applicable PATIENT PRESENTS WITH AN IMPLANTABLE OR ATTACHED AUDIO PRODUCTION MANAGER: No RADIOLOGY DEPARTMENT: General X-ray: Exam(s) Completed: Abdomen X-Ray: Abdomen PERIPHERAL IV DATA: Not applicable SIGNED BY: RT Russell(R) May 23, 2024 10:15 AM documented in this encounter [facility] 05-23-2024 Miscellaneous Notes X-ray is normal. Lets wait and see what your white blood count looks like when it returns. documented in this encounter [facility] 05-23-2024 Progress note Formatting of t his note might be different from the original. X-ray is normal. Lets wait and see what your white blood count looks like when it returns. [facility] 05-23-2024 Instructions Daylin Mendenhall APRN.CNP - 05/23/2024 10:01 AM EDT 1) X-ray abdomen now 2) Get pending labs drawn today 3) Follow up in Jun. As scheduled documented in this encounter [facility] 05-23-2024 History of Present illness Narrative This is a 69 year old female who presents today with: Patient presents with: Abdominal Pain: LLQ sharp pain since 4 am this morning HISTORY OF PRESENT ILLNESS: Terri Villar is a 69 year old female. Patient presents with: Abdominal Pain: LLQ sharp pain since 4 am this morning Intermittent sharp pains in LLQ. Bowels moving ok. No fever or chills No N/V No diarrhea. No fever or chills. Throbbing pain. Started 4 am, persists. had chest pain, sent to [place], had heart cath. PAST MEDICAL HISTORY: PAST MEDICAL HISTORY No date: Chronic kidney disease, stage III (moderate) (HCC) No date: DDD (degenerative disc disease), cervical Comment: Dr Morfin No date: Folate deficiency No date: Gastritis No date: GERD (gastroesophageal reflux disease) 07/12/2021: History of COVID-19 Comment: 06/2021 No date: HLD (hyperlipidemia) No date: HTN (hypertension) No date: MTHFR mutation No date: Osteoarthritis No date: Pain, abdominal, RLQ No date: Pericardial effusion No date: RUQ pain No date: Thyroid nodule PAST SURGICAL HISTORY 10/02/1984: DELIVERY ONLY Comment: , low transverse ALLERGIES Amoxicillin, Asa [Salicylates], Codeine, Cortizone-10 [Hydrocortisone], Cymbalta [Duloxetine], Dolobid [Diflunisal], Duricef [Cefadroxil], Dye, Entex La [Phenylephrine-Guaifenesin], Erythromycin, Flu Vac 2014 (65 Up)-Mf59c(Pf), Keflex [Cephalexin], Levaquin [Levofloxacin], Macrobid [Nitrofurantoin Monohyd/M-Cryst], Mobic [Meloxicam], Morphine, Pantoprazole, Penicillins, Prednisolone, Prilosec [Omeprazole], Septra [Sulfamethoxazole-Trimethoprim], Sulfa (Sulfonamide Antibiotics), and Tetracycline MEDICATIONS Current Outpatient Medications Medication Sig conjugated estrogens (PREMARIN) vaginal cream Use 2 g vaginally two times a week. fluticasone (FLONASE) 50 mcg/actuation nasal spray Use 2 Sprays in each nostril once daily. Rinse mouth after use. ondansetron orally disintegrating (ZOFRAN ODT) 4 mg disintegrating tablet Take 1 tablet by mouth every 6 hours as needed for nausea/vomiting. lisinopril (ZESTRIL) 40 mg tablet Take 1 tablet by mouth once daily. vitamin b complex (B-COMPLEX) tab Take 1 tablet by mouth once daily. famotidine (PEPCID) 20 mg tablet Take 1 tablet by mouth two times a day. atorvastatin (LIPITOR) 10 mg tablet Take 1 tablet by mouth daily at bedtime. For cholesterol. No current facility-administered medications for this visit. FAMILY HISTORY Problem Relation Age of Onset Breast Cancer Mother 74 Heart Brother Diabetes Paternal Grandmother Social History Tobacco Use Smoking status: Former Smokeless tobacco: Never Vaping Use Vaping status: Never Used Substance Use Topics Alcohol use: No Drug use: No EXAM: BP 132/80 Pulse 87 Temp 36.6 C (97.8 F) (Tympanic) Resp 16 Wt 56.2 kg (124 lb) SpO2 99% BMI 21.28 kg/m PHYSICAL EXAM: Physical Exam Vitals reviewed. Constitutional: Appearance: Normal appearance. HENT: Head: Normocephalic. Cardiovascular: Rate and Rhythm: Normal rate and regular rhythm. Pulses: Normal pulses. Heart sounds: Normal heart sounds. Pulmonary: Effort: Pulmonary effort is normal. Breath sounds: Normal breath sounds. Abdominal: General: Bowel sounds are normal. Palpations: Abdomen is soft. Tenderness: There is no abdominal tenderness. There is no guarding or rebound. Neurological: Mental Status: She is alert. LABS: Labs pending, get X-Ray ASSESSMENT/PLAN: 1. Left lower quadrant abdominal pain - ICD9: 789.04, ICD10: R10.32 Etiology unclear- constipation vs. diverticulosis - XR ABDOMEN 1V SUPINE - Get labs today Discussed treatment plan and patient voices understanding. Patient's questions answered appropriately. Medications and potential side effects were discussed and patient voices understanding. Return to the office as scheduled or as needed for worsening/no improvement. RADHA Mckeon APRN.CNP documented in this encounter [facility] 05-10-2024 Instructions Daylin Mendenhall APRN.CNP - 05/10/2024 9:22 AM EDT 1) Flonase 2 x day for 3 days then daily for 2 weeks 2) OTC allergy medication daily 3) See Dr. D eLuna in Jun. As scheduled documented in this encounter [facility] 05-10-2024 History of Present illness Narrative This is a 69 year old female who presents today with: Patient presents with: Sinusitis: Throbbing facial pain since this this morning. HISTORY OF PRESENT ILLNESS: Terri Villar is a 69 year old female. Patient presents with: Sinusitis: Throbbing facial pain since this this morning. Left side of face is painful and woke her up in the middle of the night. No fever or chills. Stuffy nose, runny nose & drainage down throat. Making her nauseated. Nothing in chest. PAST MEDICAL HISTORY: PAST MEDICAL HISTORY No date: Chronic kidney disease, stage III (moderate) (HCC) No date: DDD (degenerative disc disease), cervical Comment: Dr Morfin No date: Folate deficiency No date: Gastritis No date: GERD (gastroesophageal reflux disease) 07/12/2021: History of COVID-19 Comment: 06/2021 No date: HLD (hyperlipidemia) No date: HTN (hypertension) No date: MTHFR mutation No date: Osteoarthritis No date: Pain, abdominal, RLQ No date: Pericardial effusion No date: RUQ pain No date: Thyroid nodule PAST SURGICAL HISTORY 10/02/1984: DELIVERY ONLY Comment: , low transverse ALLERGIES Amoxicillin, Asa [Salicylates], Codeine, Cortizone-10 [Hydrocortisone], Cymbalta [Duloxetine], Dolobid [Diflunisal], Duricef [Cefadroxil], Dye, Entex La [Phenylephrine-Guaifenesin], Erythromycin, Flu Vac 2015 (65 Up)-Mf59c(Pf), Keflex [Cephalexin], Levaquin [Levofloxacin], Macrobid [Nitrofurantoin Monohyd/M-Cryst], Mobic [Meloxicam], Morphine, Pantoprazole, Penicillins, Prednisolone, Prilosec [Omeprazole], Septra [Sulfamethoxazole-Trimethoprim], Sulfa (Sulfonamide Antibiotics), and Tetracycline MEDICATIONS Current Outpatient Medications Medication Sig phenazopyridine (PYRIDIUM) 200 mg tablet Take 1 tablet by mouth three times a day as needed (urinary burning. Turns urine orange.) for up to 15 days. conjugated estrogens (PREMARIN) vaginal cream Use 2 g vaginally two times a week. fluticasone (FLONASE) 50 mcg/actuation nasal spray Use 2 Sprays in each nostril once daily. Rinse mouth after use. ondansetron orally disintegrating (ZOFRAN ODT) 4 mg disintegrating tablet Take 1 tablet by mouth every 6 hours as needed for nausea/vomiting. lisinopril (ZESTRIL) 40 mg tablet Take 1 tablet by mouth once daily. vitamin b complex (B-COMPLEX) tab Take 1 tablet by mouth once daily. famotidine (PEPCID) 20 mg tablet Take 1 tablet by mouth two times a day. atorvastatin (LIPITOR) 10 mg tablet Take 1 tablet by mouth daily at bedtime. For cholesterol. No current facility-administered medications for this visit. FAMILY HISTORY Problem Relation Age of Onset Breast Cancer Mother 74 Heart Brother Diabetes Paternal Grandmother Social History Tobacco Use Smoking status: Former Smokeless tobacco: Never Vaping Use Vaping Use: Never used Substance Use Topics Alcohol use: No Drug use: No EXAM: BP 134/78 Pulse 77 Temp 36.7 C (98 F) (Tympanic) Resp 16 Wt 56.1 kg (123 lb 10.9 oz) SpO2 98% BMI 21.23 kg/m PHYSICAL EXAM: Physical Exam Vitals reviewed. Constitutional: Appearance: Normal appearance. HENT: Head: Normocephalic. Right Ear: Ear canal and external ear normal. There is no impacted cerumen. Left Ear: Ear canal and external ear normal. There is impacted cerumen. Ears: Comments: Left ear buldging, nasal turbinates smooth and boggy, swollen Mouth/Throat: Mouth: Mucous membranes are moist. Pharynx: Oropharynx is clear. No oropharyngeal exudate or posterior oropharyngeal erythema. Cardiovascular: Rate and Rhythm: Normal rate and regular rhythm. Pulses: Normal pulses. Heart sounds: Normal heart sounds. Pulmonary: Effort: Pulmonary effort is normal. Breath sounds: Normal breath sounds. Neurological: Mental Status: She is alert. LABS: ASSESSMENT/PLAN: 1. Seasonal allergic rhinitis due to fungal spores - ICD9: 477.8, ICD10: J30.2 Exacerbated - Flonase 2 x day for 3 days then daily - Romelia OTC daily Discussed treatment plan and patient voices understanding. Patient's questions answered appropriately. Medications and potential side effects were discussed and patient voices understanding. Return to the office as scheduled or as needed for worsening/no improvement. Daylin Mendenhall APRN.CNP documented in this encounter [facility] 04-30-2024 Instructions Daylin Mendenhall APRN.CNP - 04/30/2024 12:38 PM EDT - CONSULT TO UROLOGY - PHENAZOPYRIDINE 200 MG TABLET 3 x daily as needed - Avoid carbonation in soda pop - Avoid caffeine - Avoid artifical sweeteners and heavy sugar - Drink 80 oz. Of water daily - Cranberry juice may help - See Dr. De Luna in Jun. As scheduled - Estrogen cream 2 x week documented in this encounter [facility] 04-30-2024 History of Present illness Narrative This is a 69 year old female who presents today with: Patient presents with: Dysuria: Mostly at night HISTORY OF PRESENT ILLNESS: Terri Villar is a 69 year old female. Patient presents with: Dysuria: Mostly at night C/O burning with urination. Drinks Sprite. Worst at night, wakes her up. Hx of microhematuria. Had urine culture in Urgent Care and it showed no infection. PAST MEDICAL HISTORY: PAST MEDICAL HISTORY Diagnosis Date Chronic kidney disease, stage III (moderate) (HCC) DDD (degenerative disc disease), cervical Dr Navjot Folate deficiency Gastritis GERD (gastroesophageal reflux disease) History of COVID-19 07/12/202106/2021 HLD (hyperlipidemia) HTN (hypertension) MTHFR mutation Osteoarthritis Pain, abdominal, RLQ Pericardial effusion RUQ pain Thyroid nodule PAST SURGICAL HISTORY Procedure Laterality Date DELIVERY ONLY 10/02/1984 , low transverse ALLERGIES Amoxicillin, Asa [Salicylates], Codeine, Cortizone-10 [Hydrocortisone], Cymbalta [Duloxetine], Dolobid [Diflunisal], Duricef [Cefadroxil], Dye, Entex La [Phenylephrine-Guaifenesin], Erythromycin, Flu Vac 2015 (65 Up)-Mf59c(Pf), Keflex [Cephalexin], Levaquin [Levofloxacin], Macrobid [Nitrofurantoin Monohyd/M-Cryst], Mobic [Meloxicam], Morphine, Pantoprazole, Penicillins, Prednisolone, Prilosec [Omeprazole], Septra [Sulfamethoxazole-Trimethoprim], Sulfa (Sulfonamide Antibiotics), and Tetracycline MEDICATIONS Current Outpatient Medications Medication Sig fluticasone (FLONASE) 50 mcg/actuation nasal spray Use 2 Sprays in each nostril once daily. Rinse mouth after use. methocarbamol (ROBAXIN) 500 mg tablet Take 1 tablet by mouth three times a day as needed (Pain). ondansetron orally disintegrating (ZOFRAN ODT) 4 mg disintegrating tablet Take 1 tablet by mouth every 6 hours as needed for nausea/vomiting. lisinopril (ZESTRIL) 40 mg tablet Take 1 tablet by mouth once daily. vitamin b complex (B-COMPLEX) tab Take 1 tablet by mouth once daily. famotidine (PEPCID) 20 mg tablet Take 1 tablet by mouth two times a day. atorvastatin (LIPITOR) 10 mg tablet Take 1 tablet by mouth daily at bedtime. For cholesterol. No current facility-administered medications for this visit. FAMILY HISTORY Problem Relation Age of Onset Breast Cancer Mother 74 Heart Brother Diabetes Paternal Grandmother Social History Tobacco Use Smoking status: Former Smokeless tobacco: Never Vaping Use Vaping Use: Never used Substance Use Topics Alcohol use: No Drug use: No EXAM: BP 130/72 Pulse 72 Temp 36.3 C (97.4 F) (Tympanic) Resp 16 Wt 55.3 kg (122 lb) SpO2 97% BMI 20.94 kg/m PHYSICAL EXAM: Physical Exam Vitals reviewed. Constitutional: Appearance: Normal appearance. Skin: General: Skin is warm and dry. Neurological: Mental Status: She is alert. LABS: urine culture 2 days ago- negative for UTI ASSESSMENT/PLAN: 1. Dysuria - ICD9: 788.1, ICD10: R30.0 recurrent - Patient education for prevention given - CONSULT TO UROLOGY - PHENAZOPYRIDINE 200 MG TABLET 3 x daily as needed - Avoid carbonation in soda pop - Avoid caffeine - Avoid artifical sweeteners and heavy sugar - Drink 80 oz. Of water daily - Cranberry juice may help - Estrogen cream 2 x week Daylin Mendenhall APRN.CNP Discussed treatment plan and patient voices understanding. Patient's questions answered appropriately. Medications and potential side effects were discussed and patient voices understanding. Return to the office as scheduled or as needed for worsening/no improvement. Daylin Mendenhall APRN.CNP documented in this encounter [facility] 04-28-2024 Telephone encounter Note Patient notified of results, verbalized understanding of instructions given. Traci Jones MA [facility] 04-28-2024 Miscellaneous Notes Patient notified of results, verbalized understanding of instructions given. Traci Jones MA Please contact patient and let her know that urine culture did not reveal significant bacterial growth, no UTI. Please follow-up with urology and gynecology as discussed at visit. documented in this encounter [facility] 04-28-2024 Telephone encounter Note Please contact patient and let her know that urine culture did not reveal significant bacterial growth, no UTI. Please follow-up with urology and gynecology as discussed at visit. [facility] Work Phone: 04-27-2024 History of Present illness Narrative This note was created using [email or web address]. Subjective Terri Villar is a 69 year old female. HPI 69-year-old female presents for pelvic burning, burning with urination since last night. Patient states she has some burning in her lower abdomen and burning with urination since last night. She took a home UTI test which was positive for nitrates. She wanted to come in for evaluation. Patient denies any abdominal pain, back pain, fevers, vomiting. She has not seen any blood in the urine. Patient has had UTIs in the past. Per chart review, patient has had dysuria in the past and had trace blood in her urine chronically, but urine cultures have been negative. She had a CT of the abdomen and pelvis done in November which had no abnormalities of the kidneys or bladder. Patient states she has seen urology in the past and had a cystoscopy with no abnormality. Patient reports that she has endometriosis. She was seen by gynecology in December and was supposed to have an endometrial biopsy. She states that her cervix would not open, so biopsy was unable to be completed. She states her human service specialist is now discussing an ablation or hysterectomy. Patient denies any vaginal bleeding or discharge. No other complaint. PAST MEDICAL HISTORY Diagnosis Date Chronic kidney disease, stage III (moderate) (HCC) DDD (degenerative disc disease), cervical Dr Navjot Folate deficiency Gastritis GERD (gastroesophageal reflux disease) History of COVID-19 07/12/202106/2021 HLD (hyperlipidemia) HTN (hypertension) MTHFR mutation Osteoarthritis Pain, abdominal, RLQ Pericardial effusion RUQ pain Thyroid nodule PAST SURGICAL HISTORY Procedure Laterality Date DELIVERY ONLY 10/02/1984 , low transverse ALLERGIES Amoxicillin, Asa [Salicylates], Codeine, Cortizone-10 [Hydrocortisone], Cymbalta [Duloxetine], Dolobid [Diflunisal], Duricef [Cefadroxil], Dye, Entex La [Phenylephrine-Guaifenesin], Erythromycin, Flu Vac 2015 (65 Up)-Mf59c(Pf), Keflex [Cephalexin], Levaquin [Levofloxacin], Macrobid [Nitrofurantoin Monohyd/M-Cryst], Mobic [Meloxicam], Morphine, Pantoprazole, Penicillins, Prednisolone, Prilosec [Omeprazole], Septra [Sulfamethoxazole-Trimethoprim], Sulfa (Sulfonamide Antibiotics), and Tetracycline MEDICATIONS fluticasone (FLONASE) 50 mcg/actuation nasal spray Use 2 Sprays in each nostril once daily. Rinse mouth after use. methocarbamol (ROBAXIN) 500 mg tablet Take 1 tablet by mouth three times a day as needed (Pain). ondansetron orally disintegrating (ZOFRAN ODT) 4 mg disintegrating tablet Take 1 tablet by mouth every 6 hours as needed for nausea/vomiting. lisinopril (ZESTRIL) 40 mg tablet Take 1 tablet by mouth once daily. vitamin b complex (B-COMPLEX) tab Take 1 tablet by mouth once daily. famotidine (PEPCID) 20 mg tablet Take 1 tablet by mouth two times a day. atorvastatin (LIPITOR) 10 mg tablet Take 1 tablet by mouth daily at bedtime. For cholesterol. FAMILY HISTORY Problem Relation Age of Onset Breast Cancer Mother 74 Heart Brother Diabetes Paternal Grandmother Social History Tobacco Use Smoking status: Former Smokeless tobacco: Never Vaping Use Vaping Use: Never used Substance Use Topics Alcohol use: No Drug use: No Review of Systems Constitutional: Negative for chills and fever. HENT: Negative for congestion, ear pain and sore throat. Respiratory: Negative for cough and shortness of breath. Cardiovascular: Negative for chest pain. Gastrointestinal: Negative for diarrhea and vomiting. Genitourinary: Positive for dysuria and pelvic pain. Objective BP 166/81 Pulse 85 Temp 36.2 C (97.2 F) Resp 18 Wt 55.7 kg (122 lb 12.7 oz) SpO2 98% BMI 21.08 kg/m Physical Exam Vitals and nursing note reviewed. Constitutional: General: She is not in acute distress. Appearance: Normal appearance. She is not toxic-appearing. HENT: Nose: Nose normal. Mouth/Throat: Mouth: Mucous membranes are moist. Eyes: Conjunctiva/sclera: Conjunctivae normal. Cardiovascular: Rate and Rhythm: Normal rate and regular rhythm. Pulmonary: Effort: Pulmonary effort is normal. Breath sounds: Normal breath sounds. Abdominal: General: Abdomen is flat. Palpations: Abdomen is soft. Tenderness: There is no right CVA tenderness, left CVA tenderness, guarding or rebound. Skin: General: Skin is warm and dry. Neurological: Mental Status: She is alert. Assessment and Plan ASSESSMENT/PLAN: 1. Burning with urination - ICD9: 788.1, ICD10: R30.0 acute - UA positive for trace hematuria (present on past UA) - Send urine for culture - Past 2 urine cultures revealed less than 10,000 mixed microbiota. -Patient has multiple allergies to antibiotics and can only be prescribed Cipro for UTIs. - Discussed with patient that since UA only reveals trace hematuria which has been present on prior UAs, I recommend waiting for urine culture prior to any treatment. Patient agreeable as she states that Cipro causes GI upset for her anyway. - Creatinine clearance from 04/08/2024 labs calculated at 45. - Discussed with patient she needs close follow-up with her urologist and human service specialist for this recurrent pelvic pain and burning. Patient states that she is supposed to follow-up with gynecology this month to discuss ablation of the uterus. - Patient education for prevention given - UA DIP, URINE (POC) - URINE CULTURE Diagnosis and treatment plan were discussed and questions were answered to the patient's satisfaction. Pt acknowledged understanding of concepts and follow up plan. Specific signs and symptoms that would indicate the need for higher level of care were discussed in detail warranting prompt ER evaluation. DARCY Juarez documented in this encounter [facility] 04-24-2024 Note IMPRESSION: INCOMPLE TE: NEED ADDITIONAL IMAGING EVALUATION There is no mammographic abnormality seen in the left breast to correspond with the pain; however, further workup with ultrasound is recommended. Goran alegre/stacirad:04/24/2024 14:58:30 Processing Supervisor(s): Gela Chairez, [facility] Mammogram BI-RADS: Category 0: Incomplete: Need Additional Imaging Evaluation Multiple national specialty organizations have released breast cancer screening guidelines for women at average risk for developing breast cancer - guidelines that are based on both evidence and opinion, yet differ on when to start and how often to screen for breast cancer. With representation from Breast Imaging, Internal Medicine, Women's Health, Family Medicine, and Medical/Surgical Oncology, the [facility] has carefully reviewed the data and reached the following consensus: 1) All women should engage in shared decision-making with their providers to decide when to start and how often to screen; 2) All women should have the opportunity to start screening mammography at age 40; 3) For women ages 45-55, we recommend annual screening mammograms; 4) For women ages 55 and over, we support both the transition from an annual to a biennial interval if this aligns more with patient's values and preferences, or continuation with annual screening; 5) All women should discuss with their providers when to stop screening mammograms. Professor Of Criminal Justice: Jesus Transcribe Date/Time: Apr 24 2024 2:06P Dictated by: GORAN BAEZ MD This examination was interpreted and the report reviewed and electronically signed by: GORAN BAEZ MD on Apr 24 2024 2:58PM [facility] DIVISION OF RADIOLOGY 04-24-2024 History of Present illness Narrative Radiology Service Progress Note PATIENT NAME: Terri Villar DATE OF SERVICE: April 24, 2024 TIME: 1:53 PM PATIENT IDENTITY VERIFICATION COMPLETED USING TWO (2) IDENTIFIERS: Name and Date of confirmed by patient verbally. FALL SCREENING: Has the patient had 2 falls in the last year or 1 fall with injury or currently using an Ambulatory Assistive Device (Walker, Cane, Wheelchair, Crutches, etc.)? No PATIENT GENDER DATA: Female. status: : No status: NO. PATIENT RELEVANT IMPLANT DATA REVIEWED: Not Applicable PATIENT PRESENTS WITH AN IMPLANTABLE OR ATTACHED AUDIO PRODUCTION MANAGER: No RADIOLOGY DEPARTMENT: Mammography PERIPHERAL IV DATA: Not applicable SIGNED BY: RT Елена(R) April 24, 2024 1:53 PM documented in this encounter [facility] 04-22-2024 Instructions Bridget De Luna MD - 04/22/2024 8:51 AM EDT BONE MINERAL DENSITY PATIENT INSTRUCTIONS ======== Bone mineral density testing measures the amount of calcium in certain parts of your bones. This information determines how strong your bones are. The test is used to detect osteoporosis, a disease in which the bone's mineral content and density are low, increasing a person's risk of fractures. The lumbar spine (lower back) and the hip are the skeletal sites usually examined. For the test, remember that: 1. You cannot take this test if you are . 2. Eat a normal diet on the day of the test. 3. Take your medications as you normally would. 4. DO NOT take calcium supplements (such as Tums) for 24 hours before the test. 5. On the day of the test, leave valuables (jewelry or credit cards) at home. 6. The test should be performed prior to oral, rectal or IV contrast studies, or at least 7 days after any of these studies. For the test, you may be asked to wear a hospital gown. You will lie on your back, on a padded table, in a comfortable position. Generally, you can resume your usual activities immediately. documented in this encounter [facility] 04-22-2024 History of Present illness Narrative Patient presents with: Back Pain HPI: Patient presents today for office visit for lower back pain. Pain started about 11 o'clock last night. Woke her from sleep. States 10 out 10 pain last night. Took tylenol and used heating pad for relief. Helped some. States the pain is in her lower back and radiates to the front of her abdomen. Describes it as a toothache with burning. Denies any urinary symptoms. Has known ddd. Has been referred to pain management and therapy in the past for the same. She did not do either. No issues with bowel or bladder. No trauma. Has had some nagging discomfort. Was walking a lot. Heat helps. No issues with pain running down her legs. No numbness or weakness. She is finally getting an egd. She never did do the colonoscopy we recommended multiple times. Did do a cologuar per her gi. No current bowel issues or heartburn problems. Bp is doing well. No chest pain No shortness of breath. No dizziness. No issues with lipitor. Discuss ct of chest end of this year. Due for thyroid us in fall. MEDICATIONS: Current Outpatient Medications Medication Sig fluticasone (FLONASE) 50 mcg/actuation nasal spray Use 2 Sprays in each nostril once daily. Rinse mouth after use. methocarbamol (ROBAXIN) 500 mg tablet Take 1 tablet by mouth three times a day as needed (Pain). ondansetron orally disintegrating (ZOFRAN ODT) 4 mg disintegrating tablet Take 1 tablet by mouth every 6 hours as needed for nausea/vomiting. lisinopril (ZESTRIL) 40 mg tablet Take 1 tablet by mouth once daily. vitamin b complex (B-COMPLEX) tab Take 1 tablet by mouth once daily. famotidine (PEPCID) 20 mg tablet Take 1 tablet by mouth two times a day. atorvastatin (LIPITOR) 10 mg tablet Take 1 tablet by mouth daily at bedtime. For cholesterol. No current facility-administered medications for this visit. ALLERGIES: ALLERGIES Allergen Reactions Amoxicillin Itching Asa [Salicylates] Itching Codeine Itching Cortizone-10 [[place]* Itching Cymbalta [Duloxetin* Intolerance One pill: bruning all over Dolobid [Diflunisal] Itching Duricef [Cefadroxil] Itching Dye Shortness of Breath Ct dye. Including rash Entex La [Phenyleph* Itching Erythromycin Itching Flu Vac 2014 (65 Up* Shortness of Breath Keflex [Cephalexin] Itching Levaquin [Levofloxa* Other: See Comments itching Macrobid [Nitrofura* Other: See Comments Fast heart rate Mobic [Meloxicam] Itching Morphine Itching Pantoprazole Itching Penicillins Hives Prednisolone Other: See Comments Elevated blood pressure. Has done well with medrol dose april. Prilosec [Omeprazol* Itching Septra [Sulfamethox* Hives Sulfa (Sulfonamide * Hives Tetracycline Hives Can take doxycycline PAST MEDICAL HISTORY Diagnosis Date Chronic kidney disease, stage III (moderate) (HCC) DDD (degenerative disc disease), cervical Dr Morfin Folate deficiency Gastritis GERD (gastroesophageal reflux disease) History of COVID-19 07/12/202106/2021 HLD (hyperlipidemia) HTN (hypertension) MTHFR mutation Osteoarthritis Pain, abdominal, RLQ Pericardial effusion RUQ pain Thyroid nodule PAST SURGICAL HISTORY Procedure Laterality Date DELIVERY ONLY 10/02/1984 , low transverse FAMILY HISTORY Problem Relation Age of Onset Breast Cancer Mother 74 Heart Brother Diabetes Paternal Grandmother Social History Tobacco Use Smoking status: Former Smokeless tobacco: Never Vaping Use Vaping Use: Never used Substance Use Topics Alcohol use: No Drug use: No Reviewed current medications, allergies, past medical history, surgical history, family history and social history today. REVIEW OF SYSTEMS All other reviewed and negative other than HPI. HEALTH MAINTENANCE: Reviewed health maintenance issues today and recommended the following in detail. BP Controlled (<130/80) due on 09/07/2023 Mammogram Screening due on 10/18/2024 VITALS: BP 130/74 Pulse 67 Temp 36.3 C (97.4 F) Ht 162.6 cm (5' 4) Wt 54.9 kg (121 lb) SpO2 98% BMI 20.77 kg/m Last 4 Encounter Wt Readings: Date: Wt: 04/15/2024 55.4 kg (122 lb 3.2 oz) 04/11/2024 55.4 kg (122 lb 3.2 oz) 04/08/2024 55.6 kg (122 lb 9.6 oz) 04/02/2024 55.3 kg (122 lb) PHYSICAL EXAMINATION: General appearance: Well appearing, alert, in no acute distress, well-hydrated, well nourished. Skin: Skin color, texture, turgor normal, no suspicious rashes or lesions Head: Normocephalic, no masses, lesions, tenderness or abnormalities BACK: Normal curvature of spine. Mild low back tenderness. . Straight leg test negative. Deep tendon reflexes 2+/4 at patellas. Normal lower extremity strength. Lungs: Lungs clear to auscultation. No wheezing, rhonchi, rales Heart: RRR without murmur, gallop, or rubs. No ectopy Abdomen: Normal abdominal exam, Abdomen soft, non-tender. Bowel sounds normal. No masses, organomegaly Extremities: No deformities, edema, skin discoloration, clubbing or cyanosis. Good capillary refill. ASSESSMENT/PLAN: 1. Primary hypertension - ICD9: 401.9, ICD10: I10 (primary diagnosis) - Controlled - Continue current medications - COMPLETE BLOOD COUNT AND DIFFERENTIAL - COMPREHENSIVE METABOLIC PANEL - LIPID PANEL BASIC 2. Mixed hyperlipidemia - ICD9: 272.2, ICD10: E78.2 - Control undetermined, due for labs - Continue current medications - Counseled on healthy diet and regular exercise 3. GERD without esophagitis - ICD9: 530.81, ICD10: K21.9 - getting egd. 4. Chronic kidney disease, stage 3a (HCC) - ICD9: 585.3, ICD10: N18.31 - stable. 5. Thyroid nodule - ICD9: 241.0, ICD10: E04.1 - consider repeat us at next ov. 6. DDD (degenerative disc disease), lumbar - ICD9: 722.52, ICD10: M51.36 - Red flags for re-assessment reviewed with patient in detail. - CONSULT TO PHYSICAL THERAPY 7. Osteoporosis without current pathological fracture, unspecified osteoporosis type - ICD9: 733.00, ICD10: M81.0 - DXA-AXIAL SKELETON - BD DXA TRABECULAR BONE SCORE (TBS) - VITAMIN D 25 HYDROXY 8. Osteoporosis, unspecified osteoporosis type, unspecified pathological fracture presence - ICD9: 733.00, ICD10: M81.0 As above Bridget De Luna MD documented in this encounter [facility] 04-15-2024 Instructions Podlogar, RADHA Vences.WASH WORKER - 04/15/2024 11:59 AM EDT BRAT DIET (may eat any of the following as tolerated) Bananas Applesauce [place] Saltine Crackers Animal Crackers Pretzels Oatmeal Unsweetened Dry Cereal (Rice Krispies, Cheerios) Plain Baked or Boiled Potato Plain White Rice Plain Noodles All clear liquid listed below CLEAR LIQUID DIET (need to drink 2 ounces total every half hour) Broth Jello Popsicles Pedialyte Gatorade NO Juices NO Milk NO Dairy Products Call if urine output is decreased or she develops dry mucous membranes, or lethargy. documented in this encounter [facility] 04-15-2024 History of Present illness Narrative 04/15/2024 Patient presents with: Nausea: X1 day, was around sister who had the stomach flu SUBJECTIVE: This is a 69 year old that is here today for Above Complaints.. Has been nauseated for one day. Sister had stomach flu. Took some Pepto which has helped. Tested herself for COVID-19 this AM and was negative. Denies fevers, chills, URI symptoms, abdominal pain, vomiting, diarrhea, constipation, hematochezia or melana PAST MEDICAL HISTORY Diagnosis Date Chronic kidney disease, stage III (moderate) (HCC) DDD (degenerative disc disease), cervical Dr Navjot Folate deficiency Gastritis GERD (gastroesophageal reflux disease) History of COVID-19 07/12/202106/2021 HLD (hyperlipidemia) HTN (hypertension) MTHFR mutation Osteoarthritis Pain, abdominal, RLQ Pericardial effusion RUQ pain Thyroid nodule ALLERGIES Amoxicillin, Asa [Salicylates], Codeine, Cortizone-10 [Hydrocortisone], Cymbalta [Duloxetine], Dolobid [Diflunisal], Duricef [Cefadroxil], Dye, Entex La [Phenylephrine-Guaifenesin], Erythromycin, Flu Vac 2015 (65 Up)-Mf59c(Pf), Keflex [Cephalexin], Levaquin [Levofloxacin], Macrobid [Nitrofurantoin Monohyd/M-Cryst], Mobic [Meloxicam], Morphine, Pantoprazole, Penicillins, Prednisolone, Prilosec [Omeprazole], Septra [Sulfamethoxazole-Trimethoprim], Sulfa (Sulfonamide Antibiotics), and Tetracycline MEDICATIONS Current Outpatient Medications Medication Sig fluticasone (FLONASE) 50 mcg/actuation nasal spray Use 2 Sprays in each nostril once daily. Rinse mouth after use. methocarbamol (ROBAXIN) 500 mg tablet Take 1 tablet by mouth three times a day as needed (Pain). ondansetron orally disintegrating (ZOFRAN ODT) 4 mg disintegrating tablet Take 1 tablet by mouth every 6 hours as needed for nausea/vomiting. lisinopril (ZESTRIL) 40 mg tablet Take 1 tablet by mouth once daily. vitamin b complex (B-COMPLEX) tab Take 1 tablet by mouth once daily. famotidine (PEPCID) 20 mg tablet Take 1 tablet by mouth two times a day. atorvastatin (LIPITOR) 10 mg tablet Take 1 tablet by mouth daily at bedtime. For cholesterol. No current facility-administered medications for this visit. Medications and allergies reviewed by this provider. SOCIAL HISTORY Social History Tobacco Use Smoking status: Former Smokeless tobacco: Never Vaping Use Vaping Use: Never used Substance Use Topics Alcohol use: No Drug use: No REVIEW OF SYSTEMS All other reviewed and negative other than HPI. OBJECTIVE: BP 132/90 Pulse 81 Temp 36.5 C (97.7 F) Resp 16 Wt 55.4 kg (122 lb 3.2 oz) SpO2 97% BMI 20.98 kg/m . Vital signs reviewed by this provider. APPEARANCE Well appearing, alert, in no acute distress, well-hydrated, well nourished. EYES conjunctiva and sclera normal. HEART RRR with normal S1 and S2, no murmurs, no gallops, no JVD appreciated LUNG clear to auscultation. No wheezes, rhonchi or rales ABDOMEN bowel sounds normoactive, no bruits, soft, non-tender, non-distended, or rebound tenderness or guarding SKIN Skin color, texture, turgor normal, no suspicious rashes or lesions to exposed skin BP Controlled (<130/80) due on 09/07/2023 RSV Vaccine(1 - 1-dose 60+ series) due on 08/21/2024 Covid-19 Vaccine(2 - 2022- season) due on 08/21/2024 Shingrix Vaccine(1 of 2) due on 10/25/2024 Pneumococcal Vaccine: 65+(1 of 1 - PCV) due on 10/25/2024 Bone Density Screening due on 05/31/2024 Mammogram Screening due on 10/18/2024 Colorectal Cancer Screening due on 10/30/2024 Serum Creatinine due on 04/08/2025 Annual PCP Team Chronic Disease Visit due on 04/15/2025 Diabetes Screening due on 04/08/2027 Lipid Screening due on 10/11/2028 DTaP,Tdap,Td Vaccine(2 - Td or Tdap) due on 10/13/2031 Advance Directive Discussion Completed Behavioral Health Screening Completed Hepatitis C Screening Completed Influenza Vaccine Discontinued ASSESSMENT/PLAN: 1. Nausea - ICD9: 787.02, ICD10: R11.0 - no red flag symptoms or exam findings - red flag symptoms discussed, verbalizes understanding - can use Pepto as directed on packaging or may use Zofran she has - discussed bland diet and staying well hydrated - follow-up as needed to ER with red flag symptoms Vangie Vázquez APRN.WASH WORKER Prescription instructions reviewed with patient as applicable. Patient advised if symptoms do not improve or if symptoms worsen sooner, to contact their primary care physician. Potential red flag symptoms discussed with the patient. Reviewed appropriate action plan to take if red flag symptoms occur. Patient agreeable to treatment plan. Medical Decision Making: Problems: Low: Acute, uncomplicated illness or injury Risk: Low: Low risk from testing/treatment Medical Decision Making Level: 3 - Low documented in this encounter [facility] 04-11-2024 History of Present illness Narrative Chief Complaint Patient presents with: Pelvic Pain: Intermittent R side x 2 days, reports no urinary sx at this time. HPI Terri Villar is a 69 year old female who presents here today for Above Complaints.. Right lower pelvic pain-this is chronic but has been persistent for the past 2 days. Denies pelvic, vaginal bleeding. Does have hx thickened endometrium. No fevers. concerned this may be appendicitis, but patient feels this is likely her chronic endometrial concerns. Past medical history, appointments, medications, allergies reviewed. Previous Medical History PAST MEDICAL HISTORY Diagnosis Date Chronic kidney disease, stage III (moderate) (HCC) DDD (degenerative disc disease), cervical Dr Morfin Folate deficiency Gastritis GERD (gastroesophageal reflux disease) History of COVID-19 07/12/202106/2021 HLD (hyperlipidemia) HTN (hypertension) MTHFR mutation Osteoarthritis Pain, abdominal, RLQ Pericardial effusion RUQ pain Thyroid nodule Previous Surgical History PAST SURGICAL HISTORY Procedure Laterality Date DELIVERY ONLY 10/02/1984 , low transverse Family History FAMILY HISTORY Problem Relation Age of Onset Breast Cancer Mother 74 Heart Brother Diabetes Paternal Grandmother Patient Allergies ALLERGIES Allergen Reactions Amoxicillin Itching Asa [Salicylates] Itching Codeine Itching Cortizone-10 [[place]* Itching Cymbalta [Duloxetin* Intolerance One pill: bruning all over Dolobid [Diflunisal] Itching Duricef [Cefadroxil] Itching Dye Shortness of Breath Ct dye. Including rash Entex La [Phenyleph* Itching Erythromycin Itching Flu Vac 2014 (65 Up* Shortness of Breath Keflex [Cephalexin] Itching Levaquin [Levofloxa* Other: See Comments itching Macrobid [Nitrofura* Other: See Comments Fast heart rate Mobic [Meloxicam] Itching Morphine Itching Pantoprazole Itching Penicillins Hives Prednisolone Other: See Comments Elevated blood pressure. Has done well with medrol dose april. Prilosec [Omeprazol* Itching Septra [Sulfamethox* Hives Sulfa (Sulfonamide * Hives Tetracycline Hives Can take doxycycline Current Medications Current Outpatient Medications on File Prior to Visit Medication Sig fluticasone (FLONASE) 50 mcg/actuation nasal spray Use 2 Sprays in each nostril once daily. Rinse mouth after use. methocarbamol (ROBAXIN) 500 mg tablet Take 1 tablet by mouth three times a day as needed (Pain). ondansetron orally disintegrating (ZOFRAN ODT) 4 mg disintegrating tablet Take 1 tablet by mouth every 6 hours as needed for nausea/vomiting. lisinopril (ZESTRIL) 40 mg tablet Take 1 tablet by mouth once daily. vitamin b complex (B-COMPLEX) tab Take 1 tablet by mouth once daily. famotidine (PEPCID) 20 mg tablet Take 1 tablet by mouth two times a day. atorvastatin (LIPITOR) 10 mg tablet Take 1 tablet by mouth daily at bedtime. For cholesterol. No current facility-administered medications on file prior to visit. Social History Social History Tobacco Use Smoking status: Former Smokeless tobacco: Never Vaping Use Vaping Use: Never used Substance Use Topics Alcohol use: No Drug use: No Review of Symptoms REVIEW OF SYSTEMS See HPI, otherwise negative EXAM: BP 112/78 (BP Site: Left Arm, BP Position: Sitting, BP Cuff Size: Regular Adult) Pulse 73 Temp 36.4 C (97.6 F) Resp 16 Wt 55.4 kg (122 lb 3.2 oz) SpO2 97% BMI 20.98 kg/m General Appearance: Well appearing, alert, in no acute distress, well-hydrated, well nourished.. Lungs: Lungs clear to auscultation. No wheezing, rhonchi, rales.. Heart: RRR without murmur, gallop, or rubs. No ectopy. Abdomen: Normal abdominal exam, Abdomen soft, non-tender. Bowel sounds normal. No masses, organomegaly. Psychiatric: pleasant, cooperative. Health Maintenance List RSV Vaccine(1 - 1-dose 60+ series) due on 08/21/2024 Covid-19 Vaccine(2 - season) due on 08/21/2024 Shingrix Vaccine(1 of 2) due on 10/25/2024 Pneumococcal Vaccine: 65+(1 of 1 - PCV) due on 10/25/2024 Bone Density Screening due on 05/31/2024 Mammogram Screening due on 10/18/2024 Colorectal Cancer Screening due on 10/30/2024 Annual PCP Team Chronic Disease Visit due on 04/02/2025 Serum Creatinine due on 04/08/2025 BP Controlled (<130/80) due on 04/08/2025 Diabetes Screening due on 04/08/2027 Lipid Screening due on 10/11/2028 DTaP,Tdap,Td Vaccine(2 - Td or Tdap) due on 10/13/2031 Advance Directive Discussion Completed Behavioral Health Screening Completed Hepatitis C Screening Completed Influenza Vaccine Discontinued Data reviewed Previous records, office notes ASSESSMENT/PLAN: 1. Pelvic pain - ICD9: [id number], ICD10: R10.2 (primary diagnosis) Suspect chronic thickened endometrium. Monitor. UA negative except chronic trace blood. - UA DIP, URINE (POC) 2. Thickened endometrium - ICD9: 793.5, ICD10: R93.89 Suspect chronic thickened endometrium. Monitor. UA negative except chronic trace blood. - UA DIP, URINE (POC) Rachael Hammond APRN.WASH WORKER documented in this encounter [facility] 04-08-2024 Instructions Daylin Mendenhall APRN.CNS - 04/08/2024 9:45 AM EDT 1) Get labs 2) Methocarbamol 500 mg 3 x day for cramps 3) Drink at least 64 oz. Of water daily and consider Gatorade 4) Keep appt. In June documented in this encounter [facility] 04-08-2024 History of Present illness Narrative This is a 69 year old female who presents today with: Patient presents with: Leg Cramps: Bilateral calf cramping and burning HISTORY OF PRESENT ILLNESS: Terri Villar is a 69 year old female. Patient presents with: Leg Cramps: Bilateral calf cramping and burning Cramps in legs at night. Started 2 nights ago on right, then last night on left. Using heating pad and asper cream. Not doing much of anything. [place] a pop left trapezius just sitting in a chair. PAST MEDICAL HISTORY: PAST MEDICAL HISTORY Diagnosis Date Chronic kidney disease, stage III (moderate) (HCC) DDD (degenerative disc disease), cervical Dr Knapic Folate deficiency Gastritis GERD (gastroesophageal reflux disease) History of COVID-19 07/12/202106/2021 HLD (hyperlipidemia) HTN (hypertension) MTHFR mutation Osteoarthritis Pain, abdominal, RLQ Pericardial effusion RUQ pain Thyroid nodule PAST SURGICAL HISTORY Procedure Laterality Date DELIVERY ONLY 10/02/1984 , low transverse ALLERGIES Amoxicillin, Asa [Salicylates], Codeine, Cortizone-10 [Hydrocortisone], Cymbalta [Duloxetine], Dolobid [Diflunisal], Duricef [Cefadroxil], Dye, Entex La [Phenylephrine-Guaifenesin], Erythromycin, Flu Vac 2015 (65 Up)-Mf59c(Pf), Keflex [Cephalexin], Levaquin [Levofloxacin], Macrobid [Nitrofurantoin Monohyd/M-Cryst], Mobic [Meloxicam], Morphine, Pantoprazole, Penicillins, Prednisolone, Prilosec [Omeprazole], Septra [Sulfamethoxazole-Trimethoprim], Sulfa (Sulfonamide Antibiotics), and Tetracycline MEDICATIONS Current Outpatient Medications Medication Sig ondansetron orally disintegrating (ZOFRAN ODT) 4 mg disintegrating tablet Take 1 tablet by mouth every 6 hours as needed for nausea/vomiting. fluticasone (FLONASE) 50 mcg/actuation nasal spray Use 2 Sprays in each nostril once daily. Rinse mouth after use. lisinopril (ZESTRIL) 40 mg tablet Take 1 tablet by mouth once daily. vitamin b complex (B-COMPLEX) tab Take 1 tablet by mouth once daily. famotidine (PEPCID) 20 mg tablet Take 1 tablet by mouth two times a day. atorvastatin (LIPITOR) 10 mg tablet Take 1 tablet by mouth daily at bedtime. For cholesterol. No current facility-administered medications for this visit. FAMILY HISTORY Problem Relation Age of Onset Breast Cancer Mother 74 Heart Brother Diabetes Paternal Grandmother Social History Tobacco Use Smoking status: Former Smokeless tobacco: Never Vaping Use Vaping Use: Never used Substance Use Topics Alcohol use: No Drug use: No REVIEW OF SYSTEMS GENERAL: No weight loss, always malaise, no fevers/chills HEENT: Negative for frequent or significant headaches, No changes in hearing or vision. RESPIRATORY: Negative for cough, hemoptysis, wheezing, dyspnea or shortness of breath CARDIOVASCULAR: Negative for chest pain, leg swelling, GI: No nausea, vomiting, or diarrhea. : No history of dysuria, frequency or incontinence, no changes in thirst MUSCULOSKELETAL: Negative for joint pain or swelling. EXAM: BP 112/64 Pulse 76 Resp 16 Wt 55.6 kg (122 lb 9.6 oz) SpO2 96% BMI 21.04 kg/m PHYSICAL EXAM: Physical Exam Vitals reviewed. Constitutional: General: She is not in acute distress. Appearance: Normal appearance. She is normal weight. She is not ill-appearing or diaphoretic. HENT: Head: Normocephalic. Cardiovascular: Rate and Rhythm: Regular rhythm. Pulses: Normal pulses. Heart sounds: Normal heart sounds. No gallop. Pulmonary: Breath sounds: Normal breath sounds. No wheezing, rhonchi or rales. Abdominal: Palpations: Abdomen is soft. Musculoskeletal: General: No swelling, tenderness or deformity. Normal range of motion. Right lower leg: No edema. Left lower leg: No edema. Comments: Negative Homans bilaterally 2+ posterior tibial pulses Skin: General: Skin is warm and dry. Neurological: Mental Status: She is alert. LABS: ASSESSMENT/PLAN: 1. Sinus congestion - ICD9: 478.19, ICD10: R09.81 Stable - FLUTICASONE PROPIONATE 50 MCG/ACTUATION NASAL SPRAY,SUSPENSION 2. Seasonal allergic rhinitis due to other allergic trigger - ICD9: 477.8, ICD10: J30.89 Stable - FLUTICASONE PROPIONATE 50 MCG/ACTUATION NASAL SPRAY,SUSPENSION 3. Bilateral leg cramps - ICD9: 729.82, ICD10: R25.2 (primary diagnosis) May be related to dehydration vs. Chronic back pain - METHOCARBAMOL 500 MG TABLET 3 x day as needed - encourage fluids, Gatorade will help with electrolytes - Check CMP & magnesium Daylin Mendenhall APRN.CERTIFIED ORTHOTIST/PEDORTHIST documented in this encounter [facility] 04-02-2024 History of Present illness Narrative This is a 69 year old female who presents today with: Patient presents with: Acute Visit: ? stomach flu HISTORY OF PRESENT ILLNESS: Terri Villar is a 69 year old female. Patient presents with: Acute Visit: ? stomach flu Patient of Dr. De Luna here in the office for concerns for possible stomach virus. Refers that she started to get nausea and upset stomach last night. No vomiting or diarrhea. Following GI, will be having a EGD 04/10/2024. Taking Pepcid and Nexium. Denies any urinary symptoms. PAST MEDICAL HISTORY: PAST MEDICAL HISTORY Diagnosis Date Chronic kidney disease, stage III (moderate) (HCC) DDD (degenerative disc disease), cervical Dr Morfin Folate deficiency Gastritis GERD (gastroesophageal reflux disease) History of COVID-19 07/12/202106/2021 HLD (hyperlipidemia) HTN (hypertension) MTHFR mutation Osteoarthritis Pain, abdominal, RLQ Pericardial effusion RUQ pain Thyroid nodule PAST SURGICAL HISTORY Procedure Laterality Date DELIVERY ONLY 10/02/1984 , low transverse ALLERGIES Amoxicillin, Asa [Salicylates], Codeine, Cortizone-10 [Hydrocortisone], Cymbalta [Duloxetine], Dolobid [Diflunisal], Duricef [Cefadroxil], Dye, Entex La [Phenylephrine-Guaifenesin], Erythromycin, Flu Vac 2014 (65 Up)-Mf59c(Pf), Keflex [Cephalexin], Levaquin [Levofloxacin], Macrobid [Nitrofurantoin Monohyd/M-Cryst], Mobic [Meloxicam], Morphine, Pantoprazole, Penicillins, Prednisolone, Prilosec [Omeprazole], Septra [Sulfamethoxazole-Trimethoprim], Sulfa (Sulfonamide Antibiotics), and Tetracycline MEDICATIONS Current Outpatient Medications Medication Sig fluticasone (FLONASE) 50 mcg/actuation nasal spray Use 2 Sprays in each nostril once daily. Rinse mouth after use. lisinopril (ZESTRIL) 40 mg tablet Take 1 tablet by mouth once daily. vitamin b complex (B-COMPLEX) tab Take 1 tablet by mouth once daily. famotidine (PEPCID) 20 mg tablet Take 1 tablet by mouth two times a day. atorvastatin (LIPITOR) 10 mg tablet Take 1 tablet by mouth daily at bedtime. For cholesterol. No current facility-administered medications for this visit. FAMILY HISTORY Problem Relation Age of Onset Breast Cancer Mother 74 Heart Brother Diabetes Paternal Grandmother Social History Tobacco Use Smoking status: Former Smokeless tobacco: Never Vaping Use Vaping Use: Never used Substance Use Topics Alcohol use: No Drug use: No REVIEW OF SYSTEMS GENERAL: No weight loss, malaise or fevers/chills HEENT: Negative for frequent or significant headaches, No changes in hearing or vision. NECK: Negative for lumps, goiter, pain and significant neck swelling RESPIRATORY: Negative for cough, hemoptysis, wheezing, dyspnea or shortness of breath CARDIOVASCULAR: Negative for chest pain, leg swelling, orthopnea, or palpitations GI: + Nausea/ Abdominal discomfort : No history of dysuria, frequency or incontinence MUSCULOSKELETAL: Negative for joint pain or swelling. SKIN: Negative for lesions, rash, and itching ENDOCRINE: Negative for cold or heat intolerance, polyuria, polydipsia and goiter NEURO: No history of headaches, syncope, paralysis, seizures or tremors MOOD: Negative for depression, anxiety, or suicidal ideation. EXAM: BP 140/86 Pulse 81 Resp 16 Wt 55.3 kg (122 lb) SpO2 98% BMI 20.94 kg/m PHYSICAL EXAM: General Appearance: Well appearing, alert, in no acute distress, well-hydrated, well nourished. Skin: Skin color, texture, turgor normal, no suspicious rashes or lesions. Head: Normocephalic, no masses, lesions, tenderness or abnormalities. Eyes: Anicteric sclera. Extraocular movements are intact. Lungs: Lungs clear to auscultation. No wheezing, rhonchi, rales. Heart: RRR without murmur, gallop, or rubs. No ectopy. Abdomen: Abdomen soft. Bowel sounds hyperactive, mild epigastric tenderness with palpation. No masses, organomegaly, Negative CVA tenderness. Extremities: No deformities, edema, skin discoloration, clubbing or cyanosis. Good capillary refill. Peripheral Pulses: Capillary refill <2secs, strong peripheral pulses. Neurologic: Gait normal. Sensation grossly intact. ASSESSMENT/PLAN: 1. Viral gastroenteritis - ICD9: 008.8, ICD10: A08.4 (primary diagnosis) - Continue supportive care at home - Recommend bland diet and stay well hydrated. - May use Zofran as needed for nausea. - Red flag symptoms given to patient, she verbalizes understanding when to seek care. 2. Nausea - ICD9: 787.02, ICD10: R11.0 - ONDANSETRON 4 MG DISINTEGRATING TABLET Follow-up if no improvement. Discussed treatment plan and patient voices understanding. Patient's questions answered appropriately. Medications and potential side effects were discussed and patient voices understanding. Cher Crabtree APRN.CNP This note was partially generated using [employer] voice recognition system. Note was reviewed for accuracy. There may be minor misspellings or grammar miscues with [employer] voice recognition. documented in this encounter [facility] 04-02-2024 Instructions Cher Crabtree APRN.CNP - 04/02/2024 7:16 AM EDT Continue supportive care at home Stay well hydrated Eat a bland diet May use zofran as needed for nausea Follow up if no improvement. documented in this encounter [facility] 03-29-2024 Instructions Daylin Mendenhall APRN.CNS - 03/29/2024 1:51 PM EDT 1) Cipro 2 x day for 3 days 2) Keep appt. With Dr. De Luna in June documented in this encounter [facility] 03-29-2024 History of Present illness Narrative This is a 69 year old female who presents today with: Patient presents with: Dysuria HISTORY OF PRESENT ILLNESS: Terri Villar is a 69 year old female. Patient presents with: Dysuria Burning with urination that woke her up. Low back and lower abdomen. PAST MEDICAL HISTORY: PAST MEDICAL HISTORY Diagnosis Date Chronic kidney disease, stage III (moderate) (HCC) DDD (degenerative disc disease), cervical Dr Morfin Folate deficiency Gastritis GERD (gastroesophageal reflux disease) History of COVID-19 07/12/202106/2021 HLD (hyperlipidemia) HTN (hypertension) MTHFR mutation Osteoarthritis Pain, abdominal, RLQ Pericardial effusion RUQ pain Thyroid nodule PAST SURGICAL HISTORY Procedure Laterality Date DELIVERY ONLY 10/02/1984 , low transverse ALLERGIES Amoxicillin, Asa [Salicylates], Codeine, Cortizone-10 [Hydrocortisone], Cymbalta [Duloxetine], Dolobid [Diflunisal], Duricef [Cefadroxil], Dye, Entex La [Phenylephrine-Guaifenesin], Erythromycin, Flu Vac 2015 (65 Up)-Mf59c(Pf), Keflex [Cephalexin], Levaquin [Levofloxacin], Macrobid [Nitrofurantoin Monohyd/M-Cryst], Mobic [Meloxicam], Morphine, Pantoprazole, Penicillins, Prednisolone, Prilosec [Omeprazole], Septra [Sulfamethoxazole-Trimethoprim], Sulfa (Sulfonamide Antibiotics), and Tetracycline MEDICATIONS Current Outpatient Medications Medication Sig fluticasone (FLONASE) 50 mcg/actuation nasal spray Use 2 Sprays in each nostril once daily. Rinse mouth after use. lisinopril (ZESTRIL) 40 mg tablet Take 1 tablet by mouth once daily. vitamin b complex (B-COMPLEX) tab Take 1 tablet by mouth once daily. famotidine (PEPCID) 20 mg tablet Take 1 tablet by mouth two times a day. atorvastatin (LIPITOR) 10 mg tablet Take 1 tablet by mouth daily at bedtime. For cholesterol. No current facility-administered medications for this visit. FAMILY HISTORY Problem Relation Age of Onset Breast Cancer Mother 74 Heart Brother Diabetes Paternal Grandmother Social History Tobacco Use Smoking status: Former Smokeless tobacco: Never Vaping Use Vaping Use: Never used Substance Use Topics Alcohol use: No Drug use: No EXAM: BP 118/68 Pulse 77 Temp 37.3 C (99.1 F) (Tympanic) Resp 16 Wt 55.3 kg (122 lb) SpO2 98% BMI 20.94 kg/m PHYSICAL EXAM: Physical Exam Vitals reviewed. Constitutional: Appearance: Normal appearance. HENT: Head: Normocephalic. Cardiovascular: Rate and Rhythm: Normal rate and regular rhythm. Heart sounds: Normal heart sounds. Pulmonary: Effort: Pulmonary effort is normal. Breath sounds: Normal breath sounds. Abdominal: General: Bowel sounds are normal. Palpations: Abdomen is soft. Musculoskeletal: General: Normal range of motion. Cervical back: Normal range of motion and neck supple. Neurological: Mental Status: She is alert. LABS: urine with trace blood. Negative nitrates and leukocytes ASSESSMENT/PLAN: 1. Dysuria - ICD9: 788.1, ICD10: R30.0 acute - Patient education for prevention given - URINALYSIS, WITH MICROSCOPIC - URINE CULTURE - Treat with Cipro 2 x day for 3 days Discussed treatment plan and patient voices understanding. Patient's questions answered appropriately. Medications and potential side effects were discussed and patient voices understanding. Return to the office as scheduled or as needed for worsening/no improvement. Daylin Mendenhall APRN.CERTIFIED ORTHOTIST/PEDORTHIST documented in this encounter [facility] 03-28-2024 Telephone encounter Note Patient was made aware of the results. Patient verbalizes understanding. Lizzeth Decker Ma [facility] 03-28-2024 Miscellaneous Notes Patient was made aware of the results. Patient verbalizes understanding. Lizzeth Decker Ma ----- Message from Daylin Mendenhall APRN.CNS sent at 03/28/2024 8:17 AM EDT ----- Folate level is improving nearly normal range. B12 within normal range. Kidney function is normal. documented in this encounter [facility] 03-28-2024 Telephone encounter Note ----- Message from Daylin Mendenhall APRN.CNS sent at 03/28/2024 8:17 AM EDT ----- Folate level is improving nearly normal range. B12 within normal range. Kidney function is normal. [facility] 03-26-2024 Note Addended by: DALYIN MENDENHALL on: 03/26/2024 09:43 AM Modules accepted: Orders [facility] 03-26-2024 Miscellaneous Notes Addended by: DAYLIN MENDENHALL on: 03/26/2024 09:43 AM Modules accepted: Orders documented in this encounter [facility] 03-26-2024 Instructions Daylin Mendenhall APRN.CNS - 03/26/2024 9:35 AM EDT 1) Get labs today 2) Ultrasound of left breast 3) Reduce caffeine by half- drink half-caf or reduce number of coffee drinks per day 4) Follow up in 3 months documented in this encounter [facility] 03-26-2024 History of Present illness Narrative This is a 69 year old female who presents today with: Patient presents with: Breast Problem: Left breast pain since Monday night. Toothache HISTORY OF PRESENT ILLNESS: Terri Villar is a 69 year old female. Patient presents with: Breast Problem: Left breast pain since Monday night. Toothache Left upper out quadrant aches. Both breasts are achy, left is worst. Drinks a lot of caffeine. This has been ongoing for months. PAST MEDICAL HISTORY: PAST MEDICAL HISTORY Diagnosis Date Chronic kidney disease, stage III (moderate) (HCC) DDD (degenerative disc disease), cervical Dr Navjot Folate deficiency Gastritis GERD (gastroesophageal reflux disease) History of COVID-19 07/12/202106/2021 HLD (hyperlipidemia) HTN (hypertension) MTHFR mutation Osteoarthritis Pain, abdominal, RLQ Pericardial effusion RUQ pain Thyroid nodule PAST SURGICAL HISTORY Procedure Laterality Date DELIVERY ONLY 10/02/1984 , low transverse ALLERGIES Amoxicillin, Asa [Salicylates], Codeine, Cortizone-10 [Hydrocortisone], Cymbalta [Duloxetine], Dolobid [Diflunisal], Duricef [Cefadroxil], Dye, Entex La [Phenylephrine-Guaifenesin], Erythromycin, Flu Vac 2015 (65 Up)-Mf59c(Pf), Keflex [Cephalexin], Levaquin [Levofloxacin], Macrobid [Nitrofurantoin Monohyd/M-Cryst], Mobic [Meloxicam], Morphine, Pantoprazole, Penicillins, Prednisolone, Prilosec [Omeprazole], Septra [Sulfamethoxazole-Trimethoprim], Sulfa (Sulfonamide Antibiotics), and Tetracycline MEDICATIONS Current Outpatient Medications Medication Sig fluticasone (FLONASE) 50 mcg/actuation nasal spray Use 2 Sprays in each nostril once daily. Rinse mouth after use. lisinopril (ZESTRIL) 40 mg tablet Take 1 tablet by mouth once daily. vitamin b complex (B-COMPLEX) tab Take 1 tablet by mouth once daily. famotidine (PEPCID) 20 mg tablet Take 1 tablet by mouth two times a day. atorvastatin (LIPITOR) 10 mg tablet Take 1 tablet by mouth daily at bedtime. For cholesterol. No current facility-administered medications for this visit. FAMILY HISTORY Problem Relation Age of Onset Breast Cancer Mother 74 Heart Brother Diabetes Paternal Grandmother Social History Tobacco Use Smoking status: Former Smokeless tobacco: Never Vaping Use Vaping Use: Never used Substance Use Topics Alcohol use: No Drug use: No EXAM: BP 122/76 Pulse 71 Resp 16 Wt 55.4 kg (122 lb 3.2 oz) SpO2 97% BMI 20.98 kg/m PHYSICAL EXAM: Physical Exam Vitals reviewed. Constitutional: Appearance: Normal appearance. Skin: General: Skin is warm and dry. Comments: Left breast without palpable nodules. Non-tender to palpate. Neurological: Mental Status: She is alert. LABS: ASSESSMENT/PLAN: 1. Breast pain - ICD9: 611.71, ICD10: N64.4 Get us of left breast to rule out pathology. - Mammogram up-to-date - Reduce caffeine by half - Pt. Agrees. 2. MTHFR mutation - ICD9: V84.89, ICD10: Z15.89 Needs level check - COMPLETE BLOOD COUNT AND DIFFERENTIAL - FOLATE, SERUM - VITAMIN B12 - BASIC METABOLIC PANEL 3. Vitamin B12 deficiency - ICD9: 266.2, ICD10: E53.8 Needs level checked - COMPLETE BLOOD COUNT AND DIFFERENTIAL - VITAMIN B12 Discussed treatment plan and patient voices understanding. Patient's questions answered appropriately. Medications and potential side effects were discussed and patient voices understanding. Return to the office as scheduled or as needed for worsening/no improvement. Daylin Mendenhall APRN.CNS documented in this encounter [facility] 03-22-2024 Instructions Vangie Vázquez APRN.WASH WORKER - 03/22/2024 8:13 AM EDT Try using zyrtec or Claritin as directed on packaging Use saline nasal spray for nasal congestion May buy over the counter Patanol eye drops over the counter Continue to use Flonase documented in this encounter [facility] 03-22-2024 History of Present illness Narrative 03/22/2024 Patient presents with: Nasal Congestion: X1 day, feeling tired. SUBJECTIVE: This is a 69 year old that is here today for Above Complaints. For the last day has had nasal congestion. Also admits to rhinorrhea, sneezing, sinus pressure and eye itching. No hx of seasonal allergies. Using tylenol and Flonase without much relief. Denies fevers, chills, soret throat, SOB, dyspnea, wheezing, nausea, vomiting or diarrhea. Did not COVID-19 test PAST MEDICAL HISTORY Diagnosis Date Chronic kidney disease, stage III (moderate) (HCC) DDD (degenerative disc disease), cervical Dr Navjot Folate deficiency Gastritis GERD (gastroesophageal reflux disease) History of COVID-19 07/12/202106/2021 HLD (hyperlipidemia) HTN (hypertension) MTHFR mutation Osteoarthritis Pain, abdominal, RLQ Pericardial effusion RUQ pain Thyroid nodule ALLERGIES Amoxicillin, Asa [Salicylates], Codeine, Cortizone-10 [Hydrocortisone], Cymbalta [Duloxetine], Dolobid [Diflunisal], Duricef [Cefadroxil], Dye, Entex La [Phenylephrine-Guaifenesin], Erythromycin, Flu Vac 2015 (65 Up)-Mf59c(Pf), Keflex [Cephalexin], Levaquin [Levofloxacin], Macrobid [Nitrofurantoin Monohyd/M-Cryst], Mobic [Meloxicam], Morphine, Pantoprazole, Penicillins, Prednisolone, Prilosec [Omeprazole], Septra [Sulfamethoxazole-Trimethoprim], Sulfa (Sulfonamide Antibiotics), and Tetracycline MEDICATIONS Current Outpatient Medications Medication Sig fluticasone (FLONASE) 50 mcg/actuation nasal spray Use 2 Sprays in each nostril once daily. Rinse mouth after use. lisinopril (ZESTRIL) 40 mg tablet Take 1 tablet by mouth once daily. vitamin b complex (B-COMPLEX) tab Take 1 tablet by mouth once daily. famotidine (PEPCID) 20 mg tablet Take 1 tablet by mouth two times a day. atorvastatin (LIPITOR) 10 mg tablet Take 1 tablet by mouth daily at bedtime. For cholesterol. No current facility-administered medications for this visit. Medications and allergies reviewed by this provider. SOCIAL HISTORY Social History Tobacco Use Smoking status: Former Smokeless tobacco: Never Vaping Use Vaping Use: Never used Substance Use Topics Alcohol use: No Drug use: No REVIEW OF SYSTEMS All other reviewed and negative other than HPI. OBJECTIVE: BP 120/80 Pulse 82 Temp 36.6 C (97.8 F) Resp 18 Wt 54.6 kg (120 lb 6.4 oz) SpO2 98% BMI 20.67 kg/m . Vital signs reviewed by this provider. APPEARANCE Well appearing, alert, in no acute distress, well-hydrated, well nourished. EYES conjunctiva and sclera normal. EARS External ears normal, canals clear NOSE/SINUS Nares normal. Septum midline. Mucosa normal. No drainage. Mild TTP bilateral maxillary sinuses THROAT normal, no erythema NECK Supple, no adenopathy; thyroid symmetric, normal size, no bruits HEART RRR with normal S1 and S2, no murmurs, no gallops, no JVD appreciated LUNG clear to auscultation. No wheezes, rhonchi or rales SKIN Skin color, texture, turgor normal, no suspicious rashes or lesions to exposed skin BP Controlled (<130/80) due on 09/07/2023 RSV Vaccine(1 - 1-dose 60+ series) due on 08/21/2024 Covid-19 Vaccine(2 - 2022- season) due on 08/21/2024 Shingrix Vaccine(1 of 2) due on 10/25/2024 Pneumococcal Vaccine: 65+(1 of 1 - PCV) due on 10/25/2024 Bone Density Screening due on 05/31/2024 Mammogram Screening due on 10/18/2024 Colorectal Cancer Screening due on 10/30/2024 Serum Creatinine due on 01/22/2025 Annual PCP Team Chronic Disease Visit due on 03/22/2025 Diabetes Screening due on 01/22/2027 Lipid Screening due on 10/11/2028 DTaP,Tdap,Td Vaccine(2 - Td or Tdap) due on 10/13/2031 Advance Directive Discussion Completed Behavioral Health Screening Completed Hepatitis C Screening Completed Influenza Vaccine Discontinued ASSESSMENT/PLAN: 1. Upper respiratory symptom - ICD9: 786.9, ICD10: R09.89 - declines COVID-19 testing - may use OTC Claritin or zyrtec as directed on packaging - can use saline nasal spray as well - no red flag symptoms or exam findings - red flag symptoms discussed, verbalizes understanding - follow-up if symptoms fail to iprove in the next 7-10 days Vangie Vázquez APRN.WASH WORKER Prescription instructions reviewed with patient as applicable. Patient advised if symptoms do not improve or if symptoms worsen sooner, to contact their primary care physician. Potential red flag symptoms discussed with the patient. Reviewed appropriate action plan to take if red flag symptoms occur. Patient agreeable to treatment plan. Medical Decision Making: Problems: Low: Acute, uncomplicated illness or injury Risk: Low: Low risk from testing/treatment Medical Decision Making Level: 3 - Low documented in this encounter [facility] 03-14-2024 History of Present illness Narrative Subjective Patient ID: Terri Villar is a 69 y.o. female who presents for New Patient Visit (GERD- taking for Pepcid that is not helping. Tried Protonix- had allergic reaction of itching. ). HPI Terri is a pleasant 69-year-old female referred by family doctor for recurrent nausea. Nausea is typically in the mornings will get better worse typically if she eats acidic foods or high amount of food in the evening symptoms worse in the morning. She denies any nocturnal heartburn but feels sick in the morning discomfort lower esophagus and nauseous throughout the day depending on how she is sleeps. She was to be evaluated for reflux several years ago but never made the appointment as her insurance changed. She is having no dysphagia denies any melanic stools or dysphagia. No family history of esophageal cancer or hiatal hernia. She is currently on Pepcid which she finds is ineffective thus to slow down the symptoms but not resolved them. She was given Protonix in the past which caused her to develop hives. She has tried no other PPI therapy Review of Systems Constitutional: Negative. HENT: Negative. Eyes: Negative. Respiratory: Negative. Cardiovascular: Negative. Gastrointestinal: Positive for abdominal pain and nausea. Endocrine: Negative. Genitourinary: Negative. Neurological: Negative. Hematological: Negative. Objective Physical Exam Vitals and nursing note reviewed. Constitutional: Appearance: Normal appearance. HENT: Head: Normocephalic. Mouth/Throat: Mouth: Mucous membranes are moist. Pharynx: Oropharynx is clear. Eyes: Conjunctiva/sclera: Conjunctivae normal. Pupils: Pupils are equal, round, and reactive to light. Cardiovascular: Rate and Rhythm: Normal rate and regular rhythm. Pulses: Normal pulses. Heart sounds: Normal heart sounds. Pulmonary: Effort: Pulmonary effort is normal. Breath sounds: Normal breath sounds. Abdominal: General: Abdomen is flat. Bowel sounds are normal. Palpations: Abdomen is soft. Musculoskeletal: General: Normal range of motion. Cervical back: Normal range of motion and neck supple. Skin: General: Skin is warm and dry. Neurological: General: No focal deficit present. Mental Status: She is alert and oriented to person, place, and time. Psychiatric: Behavior: Behavior normal. Assessment/Plan Diagnoses and all orders for this visit: Gastroesophageal reflux disease without esophagitis - esomeprazole (NexIUM) [address] capsule; Take 1 capsule (20 mg) by mouth once daily. Do not open capsule. Colon cancer screening - Cologuard colon cancer screening; Future Symptoms compatible with atypical GERD. Nausea in the morning indigestion. Failure to respond to H2 nelson. Will change to esomeprazole 20 mg daily to be taken with evening meal. May use Pepcid throughout the day for breakthrough symptoms. Arrange upper endoscopy. Discussed screening colonoscopy declined. Will prescribe Cologuard. Stephani Merino DO 03/14/24 2:19 PM documented in this encounter [facility] Work Phone: 2024 Instructions Daylin Mendenhall APRN.CNS - 2024 8:41 AM EDT 1) Medrol taper 2) Methocarbamol 500 mg up to every 6 hours as needed 3) Follow up as scheduled documented in this encounter [facility] 2024 History of Present illness Narrative This is a 69 year old female who presents today with: Patient presents with: Back Pain: Lower back HISTORY OF PRESENT ILLNESS: Terri Villar is a 69 year old female. Patient presents with: Back Pain: Lower back Pain in right buttock without radiation. Stiff and sore. No radiation of pain. Moved last week so maybe that aggravated her back. Known DDD. No loss of bowel or bladder function. PAST MEDICAL HISTORY: PAST MEDICAL HISTORY Diagnosis Date Chronic kidney disease, stage III (moderate) (HCC) DDD (degenerative disc disease), cervical Dr Morfin Folate deficiency Gastritis GERD (gastroesophageal reflux disease) History of COVID-19 07/12/202106/2021 HLD (hyperlipidemia) HTN (hypertension) MTHFR mutation Osteoarthritis Pain, abdominal, RLQ Pericardial effusion RUQ pain Thyroid nodule PAST SURGICAL HISTORY Procedure Laterality Date DELIVERY ONLY 10/02/1984 , low transverse ALLERGIES Amoxicillin, Asa [Salicylates], Codeine, Cortizone-10 [Hydrocortisone], Cymbalta [Duloxetine], Dolobid [Diflunisal], Duricef [Cefadroxil], Dye, Entex La [Phenylephrine-Guaifenesin], Erythromycin, Flu Vac 2015 (65 Up)-Mf59c(Pf), Keflex [Cephalexin], Levaquin [Levofloxacin], Macrobid [Nitrofurantoin Monohyd/M-Cryst], Mobic [Meloxicam], Morphine, Pantoprazole, Penicillins, Prednisolone, Prilosec [Omeprazole], Septra [Sulfamethoxazole-Trimethoprim], Sulfa (Sulfonamide Antibiotics), and Tetracycline MEDICATIONS Current Outpatient Medications Medication Sig fluticasone (FLONASE) 50 mcg/actuation nasal spray Use 2 Sprays in each nostril once daily. Rinse mouth after use. lisinopril (ZESTRIL) 40 mg tablet Take 1 tablet by mouth once daily. vitamin b complex (B-COMPLEX) tab Take 1 tablet by mouth once daily. famotidine (PEPCID) 20 mg tablet Take 1 tablet by mouth two times a day. atorvastatin (LIPITOR) 10 mg tablet Take 1 tablet by mouth daily at bedtime. For cholesterol. No current facility-administered medications for this visit. FAMILY HISTORY Problem Relation Age of Onset Breast Cancer Mother 74 Heart Brother Diabetes Paternal Grandmother Social History Tobacco Use Smoking status: Former Smokeless tobacco: Never Vaping Use Vaping Use: Never used Substance Use Topics Alcohol use: No Drug use: No EXAM: BP 122/78 Pulse 72 Resp 16 Wt 55.8 kg (123 lb) SpO2 97% BMI 21.11 kg/m PHYSICAL EXAM: Physical Exam Vitals reviewed. Constitutional: Appearance: Normal appearance. Musculoskeletal: Comments: Right buttock pain- pinpoint area. No radiation of pain., Full flexion. Extension 10 degrees. Right side flexion 25 degrees, left 35 degrees. Full rotation. Negative leg lift. Skin: General: Skin is warm and dry. Neurological: Mental Status: She is alert. LABS: ASSESSMENT/PLAN: 1. DDD (degenerative disc disease), lumbar - ICD9: 722.52, ICD10: M51.36 Sciatica - Medrol dose pack - Muscle relaxant- see orders - Has follow up end of month Discussed treatment plan and patient voices understanding. Patient's questions answered appropriately. Medications and potential side effects were discussed and patient voices understanding. Return to the office as scheduled or as needed for worsening/no improvement. Daylin Mendenhall APRN.CNS documented in this encounter [facility] 02-27-2024 Instructions Daylin Mendenhall APRN.CNS - 02/27/2024 8:45 AM EDT 1) Medrol taper- 6 tab today, 5 tomorrow, 4 tab on Monday, taper down until complete 2) Let us know if symptoms do not improve 3) Follow up in March as scheduled documented in this encounter [facility] 02-27-2024 History of Present illness Narrative This is a 68 year old female who presents today with: Patient presents with: Cough: Tickle Sore Throat HISTORY OF PRESENT ILLNESS: Terri Villar is a 68 year old female. Patient presents with: Cough: Tickle Sore Throat Dry tickling cough, sore throat, ears itch. Using Flonase and tea with honey. No fever or chills. Cough started last night. Sore throat for a couple days. PAST MEDICAL HISTORY: PAST MEDICAL HISTORY Diagnosis Date Chronic kidney disease, stage III (moderate) (HCC) DDD (degenerative disc disease), cervical Dr Knapic Folate deficiency Gastritis GERD (gastroesophageal reflux disease) History of COVID-19 07/12/202106/2021 HLD (hyperlipidemia) HTN (hypertension) MTHFR mutation Osteoarthritis Pain, abdominal, RLQ Pericardial effusion RUQ pain Thyroid nodule PAST SURGICAL HISTORY Procedure Laterality Date DELIVERY ONLY 10/02/1984 , low transverse ALLERGIES Amoxicillin, Asa [Salicylates], Codeine, Cortizone-10 [Hydrocortisone], Cymbalta [Duloxetine], Dolobid [Diflunisal], Duricef [Cefadroxil], Dye, Entex La [Phenylephrine-Guaifenesin], Erythromycin, Flu Vac 2015 (65 Up)-Mf59c(Pf), Keflex [Cephalexin], Levaquin [Levofloxacin], Macrobid [Nitrofurantoin Monohyd/M-Cryst], Mobic [Meloxicam], Morphine, Pantoprazole, Penicillins, Prednisolone, Prilosec [Omeprazole], Septra [Sulfamethoxazole-Trimethoprim], Sulfa (Sulfonamide Antibiotics), and Tetracycline MEDICATIONS Current Outpatient Medications Medication Sig fluticasone (FLONASE) 50 mcg/actuation nasal spray Use 2 Sprays in each nostril once daily. Rinse mouth after use. lisinopril (ZESTRIL) 40 mg tablet Take 1 tablet by mouth once daily. vitamin b complex (B-COMPLEX) tab Take 1 tablet by mouth once daily. famotidine (PEPCID) 20 mg tablet Take 1 tablet by mouth two times a day. atorvastatin (LIPITOR) 10 mg tablet Take 1 tablet by mouth daily at bedtime. For cholesterol. No current facility-administered medications for this visit. FAMILY HISTORY Problem Relation Age of Onset Breast Cancer Mother 74 Heart Brother Diabetes Paternal Grandmother Social History Tobacco Use Smoking status: Former Smokeless tobacco: Never Vaping Use Vaping Use: Never used Substance Use Topics Alcohol use: No Drug use: No EXAM: BP 120/70 Pulse 78 Temp 36.4 C (97.6 F) (Left Tympanic) Resp 16 Wt 55.8 kg (123 lb) SpO2 98% BMI 21.11 kg/m PHYSICAL EXAM: Physical Exam Vitals reviewed. Constitutional: Appearance: Normal appearance. HENT: Head: Normocephalic. Right Ear: External ear normal. Left Ear: External ear normal. Ears: Comments: Mild amount of cerumen in ears, partially obstructing view of tympanic membranes aramis. Nose: Nose normal. Mouth/Throat: Mouth: Mucous membranes are dry. Cardiovascular: Rate and Rhythm: Normal rate and regular rhythm. Pulmonary: Effort: Pulmonary effort is normal. Breath sounds: Normal breath sounds. Musculoskeletal: General: Normal range of motion. Cervical back: Normal range of motion and neck supple. No tenderness. Lymphadenopathy: Cervical: No cervical adenopathy. Skin: General: Skin is warm and dry. Neurological: Mental Status: She is alert. LABS: ASSESSMENT/PLAN: 1. Viral URI with cough - ICD9: 465.9, ICD10: J06.9 - Discussed viral etiology and rationale for treatment. - Symptomatic treatment with prn analgesia - Supportive care with fluids and rest - Treat with medrol Dosepak - Continue Flonase Discussed treatment plan and patient voices understanding. Patient's questions answered appropriately. Medications and potential side effects were discussed and patient voices understanding. Return to the office as scheduled or as needed for worsening/no improvement. Daylin Mendenhall APRN.CERTIFIED ORTHOTIST/PEDORTHIST documented in this encounter [facility] 02-19-2024 Telephone encounter Note Patient given results and verbalized understanding of instructions given. Snehal Cristobal MA [facility] 02-19-2024 Miscellaneous Notes Patient given results and verbalized understanding of instructions given. Snehal Cristobal MA Please notify that urine culture showed possible contamination. If she is still having symptoms she will either need rechecked or see human service specialist. documented in this encounter [facility] 02-19-2024 Telephone encounter Note Please notify that urine culture showed possible contamination. If she is still having symptoms she will either need rechecked or see human service specialist. [facility] Work Phone: 02-18-2024 History of Present illness Narrative This note was created using [email or web address]. Subjective Terri Villar is a 68 year old female. HPI 68-year-old female presents for lower abdominal cramping and burning with urination, urinary frequency starting yesterday. Patient states that she started urinating more frequently and had a little bit of burning with urination starting yesterday. She has some crampy lower abdominal pain. Patient does have history of UTIs. Per chart review, patient has had dysuria in the past with trace blood in her urine, but urine cultures have been negative. She had a CT of the abdomen and pelvis done in November which had no abnormalities of the kidneys or bladder. Patient states she has seen urology in the past and had a cystoscopy with no abnormality. Patient reports that she has endometriosis. She was seen by gynecology in December and was supposed to have an endometrial biopsy. She states that her cervix would not open, so biopsy was unable to be completed. She states her human service specialist is now discussing a hysterectomy. Patient denies any back pain, fevers, vomiting or diarrhea. No vaginal bleeding or discharge. No other complaint. PAST MEDICAL HISTORY Diagnosis Date Chronic kidney disease, stage III (moderate) (HCC) DDD (degenerative disc disease), cervical Dr Navjot Folate deficiency Gastritis GERD (gastroesophageal reflux disease) History of COVID-19 07/12/202106/2021 HLD (hyperlipidemia) HTN (hypertension) MTHFR mutation Osteoarthritis Pain, abdominal, RLQ Pericardial effusion RUQ pain Thyroid nodule PAST SURGICAL HISTORY Procedure Laterality Date DELIVERY ONLY 10/02/1984 , low transverse ALLERGIES Amoxicillin, Asa [Salicylates], Codeine, Cortizone-10 [Hydrocortisone], Cymbalta [Duloxetine], Dolobid [Diflunisal], Duricef [Cefadroxil], Dye, Entex La [Phenylephrine-Guaifenesin], Erythromycin, Flu Vac 2014 (65 Up)-Mf59c(Pf), Keflex [Cephalexin], Levaquin [Levofloxacin], Macrobid [Nitrofurantoin Monohyd/M-Cryst], Mobic [Meloxicam], Morphine, Pantoprazole, Penicillins, Prednisolone, Prilosec [Omeprazole], Septra [Sulfamethoxazole-Trimethoprim], Sulfa (Sulfonamide Antibiotics), and Tetracycline MEDICATIONS fluticasone (FLONASE) 50 mcg/actuation nasal spray Use 2 Sprays in each nostril once daily. Rinse mouth after use. lisinopril (ZESTRIL) 40 mg tablet Take 1 tablet by mouth once daily. vitamin b complex (B-COMPLEX) tab Take 1 tablet by mouth once daily. famotidine (PEPCID) 20 mg tablet Take 1 tablet by mouth two times a day. atorvastatin (LIPITOR) 10 mg tablet Take 1 tablet by mouth daily at bedtime. For cholesterol. FAMILY HISTORY Problem Relation Age of Onset Breast Cancer Mother 74 Heart Brother Diabetes Paternal Grandmother Social History Tobacco Use Smoking status: Former Smokeless tobacco: Never Vaping Use Vaping Use: Never used Substance Use Topics Alcohol use: No Drug use: No Review of Systems Constitutional: Negative for chills and fever. HENT: Negative for congestion, ear pain and sore throat. Respiratory: Negative for cough and shortness of breath. Cardiovascular: Negative for chest pain. Gastrointestinal: Positive for abdominal pain (Cramping). Negative for diarrhea and vomiting. Genitourinary: Positive for dysuria and frequency. Negative for flank pain, hematuria, urgency, vaginal bleeding, vaginal discharge and vaginal pain. Objective BP 138/78 Pulse 72 Temp 36.4 C (97.6 F) (Tympanic) Resp 18 Wt 56 kg (123 lb 7.3 oz) SpO2 97% BMI 21.19 kg/m Physical Exam Vitals and nursing note reviewed. Constitutional: General: She is not in acute distress. Appearance: Normal appearance. She is not toxic-appearing. HENT: Nose: Nose normal. Mouth/Throat: Mouth: Mucous membranes are moist. Eyes: Conjunctiva/sclera: Conjunctivae normal. Cardiovascular: Rate and Rhythm: Normal rate and regular rhythm. Pulmonary: Effort: Pulmonary effort is normal. Breath sounds: Normal breath sounds. Abdominal: General: Abdomen is flat. Palpations: Abdomen is soft. Tenderness: There is no abdominal tenderness. There is no right CVA tenderness, left CVA tenderness, guarding or rebound. Skin: General: Skin is warm and dry. Neurological: Mental Status: She is alert. Assessment and Plan ASSESSMENT/PLAN: 1. Urinary frequency - ICD9: 788.41, ICD10: R35.0 acute - UA positive for trace- lysed hematuria. - Send urine for culture -Await urine culture prior to treatment. Patient's UA today today only reveals trace lysed hematuria which has been present on prior UAs with negative cultures. Patient has multiple allergies. -Patient states usually when she does have a UTI, needs treatment with Cipro due to allergies. Will await urine culture prior to treatment. -Creatinine clearance calculated from labs in 01/2024 is 47 -No abdominal tenderness on exam. Patient does report history of endometrial thickening and issues regarding this. Advise she needs close follow-up with her human service specialist. She understands. - Patient education for prevention given - UA DIP, URINE (POC) - URINE CULTURE Diagnosis and treatment plan were discussed and questions were answered to the patient's satisfaction. Pt acknowledged understanding of concepts and follow up plan. Specific signs and symptoms that would indicate the need for higher level of care were discussed in detail warranting prompt ER evaluation. DARCY Juarez documented in this encounter [facility] 02-09-2024 Instructions Daylin Mendenhall APRN.CNS - 02/09/2024 2:30 PM EDT 1) Continue Flonase 2 sprays each nare daily 2) Cetirizine (Zyrtec) 10 mg daily for 1-2 weeks 3) Keep scheduled follow up documented in this encounter [facility] 02-09-2024 History of Present illness Narrative This is a 68 year old female who presents today with: Patient presents with: Head Congestion HISTORY OF PRESENT ILLNESS: Terri Villar is a 68 year old female. Patient presents with: Head Congestion Sick since Monday. Congestion. Runny nose. Aching all over. No fever or chills. + Headache around eyes. + nausea, no vomiting. PAST MEDICAL HISTORY: PAST MEDICAL HISTORY Diagnosis Date Chronic kidney disease, stage III (moderate) (HCC) DDD (degenerative disc disease), cervical Dr Morfin Folate deficiency Gastritis GERD (gastroesophageal reflux disease) History of COVID-19 07/12/202106/2021 HLD (hyperlipidemia) HTN (hypertension) MTHFR mutation Osteoarthritis Pain, abdominal, RLQ Pericardial effusion RUQ pain Thyroid nodule PAST SURGICAL HISTORY Procedure Laterality Date DELIVERY ONLY 10/02/1984 , low transverse ALLERGIES Amoxicillin, Asa [Salicylates], Codeine, Cortizone-10 [Hydrocortisone], Cymbalta [Duloxetine], Dolobid [Diflunisal], Duricef [Cefadroxil], Dye, Entex La [Phenylephrine-Guaifenesin], Erythromycin, Flu Vac 2015 (65 Up)-Mf59c(Pf), Keflex [Cephalexin], Levaquin [Levofloxacin], Macrobid [Nitrofurantoin Monohyd/M-Cryst], Mobic [Meloxicam], Morphine, Pantoprazole, Penicillins, Prednisolone, Prilosec [Omeprazole], Septra [Sulfamethoxazole-Trimethoprim], Sulfa (Sulfonamide Antibiotics), and Tetracycline MEDICATIONS Current Outpatient Medications Medication Sig fluticasone (FLONASE) 50 mcg/actuation nasal spray Use 2 Sprays in each nostril once daily. Rinse mouth after use. lisinopril (ZESTRIL) 40 mg tablet Take 1 tablet by mouth once daily. vitamin b complex (B-COMPLEX) tab Take 1 tablet by mouth once daily. famotidine (PEPCID) 20 mg tablet Take 1 tablet by mouth two times a day. atorvastatin (LIPITOR) 10 mg tablet Take 1 tablet by mouth daily at bedtime. For cholesterol. No current facility-administered medications for this visit. FAMILY HISTORY Problem Relation Age of Onset Breast Cancer Mother 74 Heart Brother Diabetes Paternal Grandmother Social History Tobacco Use Smoking status: Former Smokeless tobacco: Never Vaping Use Vaping Use: Never used Substance Use Topics Alcohol use: No Drug use: No EXAM: BP 120/78 Pulse 76 Temp 36.6 C (97.9 F) Wt 56.2 kg (124 lb) SpO2 98% BMI 21.28 kg/m PHYSICAL EXAM: Physical Exam Vitals reviewed. Constitutional: Appearance: Normal appearance. HENT: Head: Normocephalic. Comments: White exudate in lefft nare- slight Right Ear: Tympanic membrane and ear canal normal. Left Ear: Tympanic membrane and ear canal normal. Nose: Rhinorrhea present. Mouth/Throat: Mouth: Mucous membranes are moist. Pharynx: Oropharyngeal exudate present. Cardiovascular: Rate and Rhythm: Normal rate and regular rhythm. Pulmonary: Effort: Pulmonary effort is normal. Breath sounds: Normal breath sounds. Abdominal: General: Abdomen is flat. Musculoskeletal: General: Normal range of motion. Cervical back: Normal range of motion. Neurological: Mental Status: She is alert. LABS: ASSESSMENT/PLAN: 1. Seasonal allergic rhinitis due to pollen - ICD9: 477.0, ICD10: J30.1 Acute flare - Continue Flonase OTC daily - Add cetirizine 10 mg daily for 7 days Discussed treatment plan and patient voices understanding. Patient's questions answered appropriately. Medications and potential side effects were discussed and patient voices understanding. Return to the office as scheduled or as needed for worsening/no improvement. Daylin Mendenhall APRN.CNS documented in this encounter [facility] 01-29-2024 Instructions Daylin Mendenhall APRN.CNS - 01/29/2024 1:03 PM EDT 1) Ibuprofen 800 mg 3 x day for 7 days 2) Consider capsaicin to abdomen 3) No lifting more than 7 lb for 1 week 4) Follow up in March documented in this encounter [facility] 01-29-2024 History of Present illness Narrative This is a 68 year old female who presents today with: Patient presents with: Abdominal Pain HISTORY OF PRESENT ILLNESS: Terri Villar is a 68 year old female. Patient presents with: Abdominal Pain Pain in pelvis, entire abdomen, and around to rectum. Described as cramping, 10/10. Used heating pad. No burning with urination. Bowels moving well. No constipation, no diarrhea. Pain relieved with heat and ibuprofen 1000 mg once. Pain only occurs with lying down. Nearly gone but sore yet today. Has known thickened endometrium. No bleeding. No N/V. No fever or chills. Known uterine polyp PAST MEDICAL HISTORY: PAST MEDICAL HISTORY Diagnosis Date Chronic kidney disease, stage III (moderate) (HCC) DDD (degenerative disc disease), cervical Dr Knapic Folate deficiency Gastritis GERD (gastroesophageal reflux disease) History of COVID-19 07/12/202106/2021 HLD (hyperlipidemia) HTN (hypertension) MTHFR mutation Osteoarthritis Pain, abdominal, RLQ Pericardial effusion RUQ pain Thyroid nodule PAST SURGICAL HISTORY Procedure Laterality Date DELIVERY ONLY 10/02/1984 , low transverse ALLERGIES Amoxicillin, Asa [Salicylates], Codeine, Cortizone-10 [Hydrocortisone], Cymbalta [Duloxetine], Dolobid [Diflunisal], Duricef [Cefadroxil], Dye, Entex La [Phenylephrine-Guaifenesin], Erythromycin, Flu Vac 2015 (65 Up)-Mf59c(Pf), Keflex [Cephalexin], Levaquin [Levofloxacin], Macrobid [Nitrofurantoin Monohyd/M-Cryst], Mobic [Meloxicam], Morphine, Pantoprazole, Penicillins, Prednisolone, Prilosec [Omeprazole], Septra [Sulfamethoxazole-Trimethoprim], Sulfa (Sulfonamide Antibiotics), and Tetracycline MEDICATIONS Current Outpatient Medications Medication Sig sucralfate (CARAFATE) 1 gram tablet Take 1 tablet by mouth before meals and at bedtime. fluticasone (FLONASE) 50 mcg/actuation nasal spray Use 2 Sprays in each nostril once daily. Rinse mouth after use. lisinopril (ZESTRIL) 40 mg tablet Take 1 tablet by mouth once daily. vitamin b complex (B-COMPLEX) tab Take 1 tablet by mouth once daily. famotidine (PEPCID) 20 mg tablet Take 1 tablet by mouth two times a day. atorvastatin (LIPITOR) 10 mg tablet Take 1 tablet by mouth daily at bedtime. For cholesterol. Current Facility-Administered Medications Medication Dose Route Frequency perflutren lipid microspheres 1.3 mL in NaCl (PF) 0.9% 10 mL injection (DEFINITY) INTRAVENOUS DIRECTED PRN sodium chloride 0.9 % (flush) 10 mL (BD POSIFLUSH) 10 mL INTRAVENOUS DIRECTED PRN FAMILY HISTORY Problem Relation Age of Onset Breast Cancer Mother 74 Heart Brother Diabetes Paternal Grandmother Social History Tobacco Use Smoking status: Former Smokeless tobacco: Never Vaping Use Vaping Use: Never used Substance Use Topics Alcohol use: No Drug use: No Had CT abd & pelvis last month that was normal EXAM: BP 128/76 Pulse 84 Temp 36.8 C (98.3 F) Resp 14 Wt 54.4 kg (120 lb) SpO2 98% BMI 20.60 kg/m PHYSICAL EXAM: General Appearance: Well appearing, alert, in no acute distress, well-hydrated, well nourished.. Head: Normocephalic, no masses, lesions, tenderness or abnormalities. Lungs: Lungs clear to auscultation. No wheezing, rhonchi, rales.. Heart: RRR without murmur, gallop, or rubs. No ectopy. Abdomen: Normal abdominal exam, Abdomen soft, non-tender. Bowel sounds normal. No masses, organomegaly. Extremities: No deformities, edema, skin discoloration, clubbing or cyanosis. Good capillary refill. . LABS: ASSESSMENT/PLAN: 1. Lower abdominal pain - ICD9: 789.09, ICD10: R10.30 Etiology unclear - No lifting more than 7 lb. - Ibuprofen 800 mg 3 x day for 7 days - Consider capsaicin to abdomen Discussed treatment plan and patient voices understanding. Patient's questions answered appropriately. Medications and potential side effects were discussed and patient voices understanding. Return to the office as scheduled or as needed for worsening/no improvement. Daylin Mendenhall APRN.CNS The patient indicates understanding of these issues and agrees with the plan. documented in this encounter [facility] 01-23-2024 History of Present illness Narrative Chief Complaint Patient presents with: Nausea Abdominal Pain: Patient reports burning stomach pain HPI Terri Villar is a 68 year old female who presents here today for Above Complaints.. Patient here today for complaint of epigastric burning and nausea which started 2 days ago. Worried she may have the stomach flu. Has history of gastritis and reflux and been compliant with her pepcid. Has tried treating symptoms with pepto bismol without improvement. No specific foods seem to trigger these symptoms and does not eat a lot of acidic or spicy foods. Denies fever/chills, vomiting, diarrhea, constipation, hematochezia, melena, weight loss, night sweats, recent sick contacts, alcohol use. Has appointment with GI in March. Past medical history, appointments, medications, allergies reviewed. Previous Medical History PAST MEDICAL HISTORY Diagnosis Date Chronic kidney disease, stage III (moderate) (HCC) DDD (degenerative disc disease), cervical Dr Morfin Folate deficiency Gastritis GERD (gastroesophageal reflux disease) History of COVID-19 07/12/202106/2021 HLD (hyperlipidemia) HTN (hypertension) MTHFR mutation Osteoarthritis Pain, abdominal, RLQ Pericardial effusion RUQ pain Thyroid nodule Previous Surgical History PAST SURGICAL HISTORY Procedure Laterality Date DELIVERY ONLY 10/02/1984 , low transverse Family History FAMILY HISTORY Problem Relation Age of Onset Breast Cancer Mother 74 Heart Brother Diabetes Paternal Grandmother Patient Allergies ALLERGIES Allergen Reactions Amoxicillin Itching Asa [Salicylates] Itching Codeine Itching Cortizone-10 [[place]* Itching Cymbalta [Duloxetin* Intolerance One pill: bruning all over Dolobid [Diflunisal] Itching Duricef [Cefadroxil] Itching Dye Shortness of Breath Ct dye. Including rash Entex La [Phenyleph* Itching Erythromycin Itching Flu Vac 2014 (65 Up* Shortness of Breath Keflex [Cephalexin] Itching Levaquin [Levofloxa* Other: See Comments itching Macrobid [Nitrofura* Other: See Comments Fast heart rate Mobic [Meloxicam] Itching Morphine Itching Pantoprazole Itching Penicillins Hives Prednisolone Other: See Comments Elevated blood pressure. Has done well with medrol dose april. Prilosec [Omeprazol* Itching Septra [Sulfamethox* Hives Sulfa (Sulfonamide * Hives Tetracycline Hives Can take doxycycline Current Medications Current Outpatient Medications on File Prior to Visit Medication Sig fluticasone (FLONASE) 50 mcg/actuation nasal spray Use 2 Sprays in each nostril once daily. Rinse mouth after use. lisinopril (ZESTRIL) 40 mg tablet Take 1 tablet by mouth once daily. vitamin b complex (B-COMPLEX) tab Take 1 tablet by mouth once daily. famotidine (PEPCID) 20 mg tablet Take 1 tablet by mouth two times a day. atorvastatin (LIPITOR) 10 mg tablet Take 1 tablet by mouth daily at bedtime. For cholesterol. Current Facility-Administered Medications on File Prior to Visit Medication perflutren lipid microspheres 1.3 mL in NaCl (PF) 0.9% 10 mL injection (DEFINITY) sodium chloride 0.9 % (flush) 10 mL (BD POSIFLUSH) Social History Social History Tobacco Use Smoking status: Former Smokeless tobacco: Never Vaping Use Vaping Use: Never used Substance Use Topics Alcohol use: No Drug use: No Review of Symptoms REVIEW OF SYSTEMS GENERAL: No weight loss, malaise or fevers RESPIRATORY: Negative for cough, hemoptysis, wheezing, COPD, dyspnea or shortness of breath CARDIOVASCULAR: Negative for chest pain, leg swelling, hypertension, CHF or palpitations EXAM: BP 124/78 Pulse 84 Temp 36.6 C (97.9 F) Resp 16 Wt 55.2 kg (121 lb 12.8 oz) SpO2 97% BMI 20.91 kg/m General Appearance: Well appearing, alert, in no acute distress, well-hydrated, well nourished.. Skin: Skin color, texture, turgor normal, no suspicious rashes or lesions. Lungs: Lungs clear to auscultation. No wheezing, rhonchi, rales.. Heart: RRR without murmur, gallop, or rubs. No ectopy. Abdomen: Normal abdominal exam, Abdomen soft, non-tender. Bowel sounds normal. No masses, organomegaly. Negative combs's sign. Health Maintenance List BP Controlled (<130/80) due on 09/07/2023 RSV Vaccine(1 - 1-dose 60+ series) due on 08/21/2024 Covid-19 Vaccine(2 - season) due on 08/21/2024 Shingrix Vaccine(1 of 2) due on 10/25/2024 Pneumococcal Vaccine: 65+(1 of 1 - PCV) due on 10/25/2024 Bone Density Screening due on 05/31/2024 Mammogram Screening due on 10/18/2024 Colorectal Cancer Screening due on 10/30/2024 Serum Creatinine due on 12/12/2024 Annual PCP Team Chronic Disease Visit due on 01/16/2025 Diabetes Screening due on 10/31/2026 Lipid Screening due on 10/11/2028 DTaP,Tdap,Td Vaccine(2 - Td or Tdap) due on 10/13/2031 Advance Directive Discussion Completed Behavioral Health Screening Completed Hepatitis C Screening Completed Influenza Vaccine Discontinued ASSESSMENT/PLAN: 1. Epigastric pain - ICD9: 789.06, ICD10: R10.13 (primary diagnosis) Suspect pain 2/2 gastritis vs GERD. Unable to tolerate PPI due to itching. Will add on carafate. Continue pepcid BID. Avoid acidic foods as discussed. Obtain labs as ordered. F/u with GI as scheduled. Red flags for re-assessment reviewed with patient in detail. - SUCRALFATE 1 GRAM TABLET - COMPLETE BLOOD COUNT AND DIFFERENTIAL - COMPREHENSIVE METABOLIC PANEL - LIPASE 2. Nausea - ICD9: 787.02, ICD10: R11.0 Patient has zofran at home. May take with pepcid and carafate. 3. Gastroesophageal reflux disease, unspecified whether esophagitis present - ICD9: 530.81, ICD10: K21.9 See above. Ryan Dalton MD documented in this encounter [facility] 01-17-2024 History of Present illness Narrative Patient presents with: Breast Problem HPI: Patient presents today for office visit for pain on side of left breast. Pain is shooting at times. Wakes up her up at night sometimes. Has been using a heating pad. Tender to touch. She has not noticed any bumps or lumps. Pain has been noticeable for the last couple months. Denies discharge from nipple. No redness or warmth. Pain seems to be on the bone Trauma. No cough. No shortness of breath. No chest person with exertion. After discussion it was the same identical pain she already saw Jena for on 12/29/23. She had forgotten. Note was copied and pasted, without alteration from her note: Terri Villar is a 68 year old female. Patient presents with: Rib Injury: Screen door hit left side of ribs last night Last night she was carrying groceries and the screen door slammed shut and hit her left lateral ribs. States that very sore, tender to touch. Last Mammo 10/18/23 Impression: Negative Xray rib. 01/02/2024 5:15 PM - Radiology, [place] [facility] Impression IMPRESSION: 1. Negative radiographs of the left ribs. MEDICATIONS: Current Outpatient Medications Medication Sig fluticasone (FLONASE) 50 mcg/actuation nasal spray Use 2 Sprays in each nostril once daily. Rinse mouth after use. lisinopril (ZESTRIL) 40 mg tablet Take 1 tablet by mouth once daily. vitamin b complex (B-COMPLEX) tab Take 1 tablet by mouth once daily. famotidine (PEPCID) 20 mg tablet Take 1 tablet by mouth two times a day. atorvastatin (LIPITOR) 10 mg tablet Take 1 tablet by mouth daily at bedtime. For cholesterol. Current Facility-Administered Medications Medication Dose Route Frequency perflutren lipid microspheres 1.3 mL in NaCl (PF) 0.9% 10 mL injection (DEFINITY) INTRAVENOUS DIRECTED PRN sodium chloride 0.9 % (flush) 10 mL (BD POSIFLUSH) 10 mL INTRAVENOUS DIRECTED PRN ALLERGIES: ALLERGIES Allergen Reactions Amoxicillin Itching Asa [Salicylates] Itching Codeine Itching Cortizone-10 [[place]* Itching Cymbalta [Duloxetin* Intolerance One pill: bruning all over Dolobid [Diflunisal] Itching Duricef [Cefadroxil] Itching Dye Shortness of Breath Ct dye. Including rash Entex La [Phenyleph* Itching Erythromycin Itching Flu Vac 2014 (65 Up* Shortness of Breath Keflex [Cephalexin] Itching Levaquin [Levofloxa* Other: See Comments itching Macrobid [Nitrofura* Other: See Comments Fast heart rate Mobic [Meloxicam] Itching Morphine Itching Pantoprazole Itching Penicillins Hives Prednisolone Other: See Comments Elevated blood pressure. Has done well with medrol dose april. Prilosec [Omeprazol* Itching Septra [Sulfamethox* Hives Sulfa (Sulfonamide * Hives Tetracycline Hives Can take doxycycline PAST MEDICAL HISTORY Diagnosis Date Chronic kidney disease, stage III (moderate) (HCC) DDD (degenerative disc disease), cervical Dr Knapic Folate deficiency Gastritis GERD (gastroesophageal reflux disease) History of COVID-19 07/12/202106/2021 HLD (hyperlipidemia) HTN (hypertension) MTHFR mutation Osteoarthritis Pain, abdominal, RLQ Pericardial effusion RUQ pain Thyroid nodule PAST SURGICAL HISTORY Procedure Laterality Date DELIVERY ONLY 10/02/1984 , low transverse FAMILY HISTORY Problem Relation Age of Onset Breast Cancer Mother 74 Heart Brother Diabetes Paternal Grandmother Social History Tobacco Use Smoking status: Former Smokeless tobacco: Never Vaping Use Vaping Use: Never used Substance Use Topics Alcohol use: No Drug use: No Reviewed current medications, allergies, past medical history, surgical history, family history and social history today. REVIEW OF SYSTEMS All other reviewed and negative other than HPI. HEALTH MAINTENANCE: Reviewed health maintenance issues today and recommended the following in detail. There are no preventive care reminders to display for this patient. VITALS: BP 130/78 Pulse 78 Ht 162.6 cm (5' 4) Wt 54.9 kg (121 lb) SpO2 97% BMI 20.77 kg/m Last 4 Encounter Wt Readings: Date: Wt: 01/16/2024 56.2 kg (124 lb) 01/05/2024 55.6 kg (122 lb 9.6 oz) 01/03/2024 55.8 kg (123 lb) 12/29/2023 54.9 kg (121 lb) PHYSICAL EXAMINATION: General appearance: Well appearing, alert, in no acute distress, well-hydrated, well nourished. Skin: Skin color, texture, turgor normal, no suspicious rashes or lesions Head: Normocephalic, no masses, lesions, tenderness or abnormalities Lungs: Lungs clear to auscultation. No wheezing, rhonchi, rales Heart: RRR without murmur, gallop, or rubs. No ectopy Abdomen: Normal abdominal exam, Abdomen soft, non-tender. Bowel sounds normal. No masses, organomegaly She is actually tender along the left side of the chest wall, not breast tissue. ASSESSMENT/PLAN: 1. Rib pain - ICD9: 786.50, ICD10: R07.81 - her pain is actually in her left rig cage, not the breast. Heat prn. Has had xrays. Discussed risks and benefits of new medication with the patient. Advised them to call if any side effects or questions. Red flags for re-assessment reviewed with patient in detail. Call if symptoms worsen at all or if not better in one to two weeks Reviewed diagnosis and treatment options in detail. Questions were answered. Patient expressed understanding of treatment plan. - PREDNISONE 20 MG TABLET Bridget De Luna MD documented in this encounter [facility] 01-16-2024 Instructions Daylin Mendenhall APRN.JOSE - 01/16/2024 8:35 AM EDT 1) Avoid sodas 2) Add cranberry juice to water today 3) Drink 8-10 glasses of water today 4) Follow up in March documented in this encounter [facility] 01-16-2024 History of Present illness Narrative This is a 68 year old female who presents today with: Patient presents with: Dysuria: Since 12 am HISTORY OF PRESENT ILLNESS: Terri Villar is a 68 year old female. Patient presents with: Dysuria: Since 12 am States she felt fine yesterday. Started dysuria. No hematuria. Pelvic discomfort. Saw [employer] a couple weeks ago, unable to obtain endometrial biopsy. PAST MEDICAL HISTORY: PAST MEDICAL HISTORY Diagnosis Date Chronic kidney disease, stage III (moderate) (HCC) DDD (degenerative disc disease), cervical Dr Knapic Folate deficiency Gastritis GERD (gastroesophageal reflux disease) History of COVID-19 07/12/202106/2021 HLD (hyperlipidemia) HTN (hypertension) MTHFR mutation Osteoarthritis Pain, abdominal, RLQ Pericardial effusion RUQ pain Thyroid nodule PAST SURGICAL HISTORY Procedure Laterality Date DELIVERY ONLY 10/02/1984 , low transverse ALLERGIES Amoxicillin, Asa [Salicylates], Codeine, Cortizone-10 [Hydrocortisone], Cymbalta [Duloxetine], Dolobid [Diflunisal], Duricef [Cefadroxil], Dye, Entex La [Phenylephrine-Guaifenesin], Erythromycin, Flu Vac 2015 (65 Up)-Mf59c(Pf), Keflex [Cephalexin], Levaquin [Levofloxacin], Macrobid [Nitrofurantoin Monohyd/M-Cryst], Mobic [Meloxicam], Morphine, Pantoprazole, Penicillins, Prednisolone, Prilosec [Omeprazole], Septra [Sulfamethoxazole-Trimethoprim], Sulfa (Sulfonamide Antibiotics), and Tetracycline MEDICATIONS Current Outpatient Medications Medication Sig fluticasone (FLONASE) 50 mcg/actuation nasal spray Use 2 Sprays in each nostril once daily. Rinse mouth after use. lisinopril (ZESTRIL) 40 mg tablet Take 1 tablet by mouth once daily. vitamin b complex (B-COMPLEX) tab Take 1 tablet by mouth once daily. famotidine (PEPCID) 20 mg tablet Take 1 tablet by mouth two times a day. atorvastatin (LIPITOR) 10 mg tablet Take 1 tablet by mouth daily at bedtime. For cholesterol. Current Facility-Administered Medications Medication Dose Route Frequency perflutren lipid microspheres 1.3 mL in NaCl (PF) 0.9% 10 mL injection (DEFINITY) INTRAVENOUS DIRECTED PRN sodium chloride 0.9 % (flush) 10 mL (BD POSIFLUSH) 10 mL INTRAVENOUS DIRECTED PRN FAMILY HISTORY Problem Relation Age of Onset Breast Cancer Mother 74 Heart Brother Diabetes Paternal Grandmother Social History Tobacco Use Smoking status: Former Smokeless tobacco: Never Vaping Use Vaping Use: Never used Substance Use Topics Alcohol use: No Drug use: No EXAM: BP 128/72 Pulse 79 Temp 36.5 C (97.7 F) Resp 16 Wt 56.2 kg (124 lb) SpO2 99% BMI 21.28 kg/m PHYSICAL EXAM: General Appearance: Well appearing, alert, in no acute distress, well-hydrated, well nourished.. Skin: Skin color, texture, turgor normal, no suspicious rashes or lesions. Lungs: Lungs clear to auscultation. No wheezing, rhonchi, rales.. Heart: RRR without murmur, gallop, or rubs. No ectopy. Abdomen: Normal abdominal exam, Abdomen soft, non-tender. Bowel sounds normal. No masses, organomegaly. LABS: urinalysis w/o nitrates or leukocytes, patient does have microhematuria but had a CT of the abdomen and pelvis with no masses or abnormalities seen in kidneys or bladder done in November. ASSESSMENT/PLAN: 1. Dysuria - ICD9: 788.1, ICD10: R30.0 acute - Patient education for prevention given - URINALYSIS, WITH MICROSCOPIC Discussed treatment plan and patient voices understanding. Patient's questions answered appropriately. Medications and potential side effects were discussed and patient voices understanding. Return to the office as scheduled or as needed for worsening/no improvement. Daylin Mendenhall APRN.CERTIFIED ORTHOTIST/PEDORTHIST The patient indicates understanding of these issues and agrees with the plan. documented in this encounter [facility] 01-05-2024 Miscellaneous Notes Addended by: LILLY ESCOTO on: 01/05/2024 10:46 AM Modules accepted: Orders noted. She can contact our office prn or if she wants to schedule. Lilly Escoto MD Patient wants to wait to decide after her 's surgery is completed and recovery. If she decides to proceed she will call office in January-March sometime to let us know. Aware to call with any new vaginal bleeding in the meantime. Heydi Maurice RN Patient has stenotic cervix and endometrial polyp. I was unable to get through cervix into endometrium to do EMB. Do not think reattempting in office will be successful. Recommend hysteroscopy D&C w/ polyp resection in OR. Her is having knee in a couple of weeks. She wanted to think about options. Please call her on 01/04 and follow up and see if she wants to schedule hysteroscopy D&C and if not please have her contact us if she changes her mind or has any vaginal bleeding. We discussed risks/benefits. Ok to schedule in at her convenience. Lilly Escoto MD documented in this encounter [facility] 01-05-2024 History of Present illness Narrative Patient presents with: Sinus Problem HPI: Patient presents today for office visit for today for sinus symptoms ENT: Patient complains of sinus pressure. Duration: 2 days Fever: No. Headache: Yes. Sore throat: Yes. Ear pain: Yes. Nasal drainage: Yes. Cough: No. Shortness of breath: No. Nausea: No. Vomiting: No. Diarrhea: No. Previous treatment: has been taking flonase and tylenol. Did home covid and was negative. MEDICATIONS: Current Outpatient Medications Medication Sig lisinopril (ZESTRIL) 40 mg tablet Take 1 tablet by mouth once daily. dicyclomine (BENTYL) 20 mg tablet ondansetron orally disintegrating (ZOFRAN ODT) 4 mg disintegrating tablet lidocaine (LIDODERM) 5 % Apply 1 Patch as directed every 24 hours. Remove old patch prior to placing new patch. Location: left lateral rib vitamin b complex (B-COMPLEX) tab Take 1 tablet by mouth once daily. famotidine (PEPCID) 20 mg tablet Take 1 tablet by mouth two times a day. atorvastatin (LIPITOR) 10 mg tablet Take 1 tablet by mouth daily at bedtime. For cholesterol. fluticasone (FLONASE) 50 mcg/actuation nasal spray Use 2 Sprays in each nostril once daily. Rinse mouth after use. Current Facility-Administered Medications Medication Dose Route Frequency perflutren lipid microspheres 1.3 mL in NaCl (PF) 0.9% 10 mL injection (DEFINITY) INTRAVENOUS DIRECTED PRN sodium chloride 0.9 % (flush) 10 mL (BD POSIFLUSH) 10 mL INTRAVENOUS DIRECTED PRN ALLERGIES: ALLERGIES Allergen Reactions Amoxicillin Itching Asa [Salicylates] Itching Codeine Itching Cortizone-10 [[place]* Itching Cymbalta [Duloxetin* Intolerance One pill: bruning all over Dolobid [Diflunisal] Itching Duricef [Cefadroxil] Itching Dye Shortness of Breath Ct dye. Including rash Entex La [Phenyleph* Itching Erythromycin Itching Flu Vac 2014 (65 Up* Shortness of Breath Keflex [Cephalexin] Itching Levaquin [Levofloxa* Other: See Comments itching Macrobid [Nitrofura* Other: See Comments Fast heart rate Mobic [Meloxicam] Itching Morphine Itching Pantoprazole Itching Penicillins Hives Prednisolone Other: See Comments Elevated blood pressure. Has done well with medrol dose april. Prilosec [Omeprazol* Itching Septra [Sulfamethox* Hives Sulfa (Sulfonamide * Hives Tetracycline Hives Can take doxycycline PAST MEDICAL HISTORY Diagnosis Date Chronic kidney disease, stage III (moderate) (HCC) DDD (degenerative disc disease), cervical Dr Morfin Folate deficiency Gastritis GERD (gastroesophageal reflux disease) History of COVID-19 07/12/202106/2021 HLD (hyperlipidemia) HTN (hypertension) MTHFR mutation Osteoarthritis Pain, abdominal, RLQ Pericardial effusion RUQ pain Thyroid nodule PAST SURGICAL HISTORY Procedure Laterality Date DELIVERY ONLY 10/02/1984 , low transverse FAMILY HISTORY Problem Relation Age of Onset Breast Cancer Mother 74 Heart Brother Diabetes Paternal Grandmother Social History Tobacco Use Smoking status: Former Smokeless tobacco: Never Vaping Use Vaping Use: Never used Substance Use Topics Alcohol use: No Drug use: No Reviewed current medications, allergies, past medical history, surgical history, family history and social history today. REVIEW OF SYSTEMS No nausea or vomiting or diarrhea. All other reviewed and negative other than HPI. VITALS: BP 118/60 Pulse 92 Wt 55.6 kg (122 lb 9.6 oz) SpO2 96% BMI 21.04 kg/m Last 4 Encounter Wt Readings: Date: Wt: 01/03/2024 55.8 kg (123 lb) 12/29/2023 54.9 kg (121 lb) 12/26/2023 54.9 kg (121 lb) 12/13/2023 54.7 kg (120 lb 9.6 oz) PHYSICAL EXAMINATION: General appearance: Well appearing, alert, in no acute distress, well-hydrated, well nourished. Skin: Skin color, texture, turgor normal, no suspicious rashes or lesions Head: Normocephalic, no masses, lesions, tenderness or abnormalities Eyes: Anicteric sclera. Pupils are equally round and reactive to light. Extraocular movements are intact. Ears: External ears normal, canals clear Nose/Sinuses: slightly tender over sinuses Oropharynx: Lips, mucosa, and tongue normal, teeth and gums normal, oropharynx normal Neck: Supple, no adenopath Lungs: Lungs clear to auscultation. No wheezing, rhonchi, rales Heart: RRR without murmur, gallop, or rubs. No ectopy Abdomen: Normal abdominal exam, Abdomen soft, non-tender. Bowel sounds normal. No masses, organomegaly ASSESSMENT/PLAN: 1. URI, acute - ICD9: 465.9, ICD10: J06.9 - Discussed viral etiology and rationale for treatment. - Symptomatic treatment with prn analgesia - Supportive care with fluids and rest - COVID & INFLUENZA A/B & RSV NAAT, ROUTINE Bridget De Luna MD documented in this encounter [facility] 01-05-2024 Miscellaneous Notes Patient has been identified by name and date of : Yes Requested Prescriptions Pending Prescriptions Disp Refills fluticasone (FLONASE) 50 mcg/actuation nasal spray 3 Each 0 Sig: Use 2 Sprays in each nostril once daily. Rinse mouth after use. RX INSTRUCTIONS: Patient aware RX will be sent to pharmacy. No need to notify patient. Dianna Durant LPN documented in this encounter [facility] 01-04-2024 Miscellaneous Notes Patient MyChart message requesting the following refill Refill(s) Requested: Requested Prescriptions Pending Prescriptions Disp Refills lisinopril (ZESTRIL) 40 mg tablet 90 tablet 1 Sig: Take 1 tablet by mouth once daily. ALLERGIES Allergen Reactions Amoxicillin Itching Asa [Salicylates] Itching Codeine Itching Cortizone-10 [[place]* Itching Cymbalta [Duloxetin* Intolerance One pill: bruning all over Dolobid [Diflunisal] Itching Duricef [Cefadroxil] Itching Dye Shortness of Breath Ct dye. Including rash Entex La [Phenyleph* Itching Erythromycin Itching Flu Vac 2014 (65 Up* Shortness of Breath Keflex [Cephalexin] Itching Levaquin [Levofloxa* Other: See Comments itching Macrobid [Nitrofura* Other: See Comments Fast heart rate Mobic [Meloxicam] Itching Morphine Itching Pantoprazole Itching Penicillins Hives Prednisolone Other: See Comments Elevated blood pressure. Has done well with medrol dose april. Prilosec [Omeprazol* Itching Septra [Sulfamethox* Hives Sulfa (Sulfonamide * Hives Tetracycline Hives Can take doxycycline (home) [phone] (cell) Last Office Visit Date: 12/29/2023 Last [facility] Visit: Visit date not found Future Appointment: 03/28/2024 The patients preferred pharmacy has been captured for this encounter? yes Request is for script(s) to be escript to pharmacy. Ran Dumont LPN documented in this encounter [facility] 01-03-2024 Instructions Joan Rao MA - 01/03/2024 10:58 AM EDT YOUR RECOVERY After your biopsy you may have: Vaginal bleeding (less than a normal menstrual period) Mild cramping Do NOT put anything in the vagina for 1 week after your endometrial biopsy. This includes: tampons douches and refraining from having sexual intercourse If you have any discomfort, you may take an over the counter pain medication (motrin, advil, ibuprofen, tylenol, etc). If this does not relieve your discomfort, contact the office. It is okay to wear a sanitary pad until the discharge and spotting stops. RISKS Although problems seldom occur with endometrial biopsies, there can be some complications. You may feel faint during and shortly after the procedure as well as have some bleeding after the procedure. There is also a risk of infection after the procedure. These complications are rare and can be easily treated. You should contact you doctor is you have any of the following: Heavy bleeding (more than your normal period) Bleeding with clots Severe abdominal pain Fever (more than 100.4F) Foul smelling vaginal discharge RESULTS We will have the results of your biopsy in 1-2 weeks. If you do not hear the results of your biopsy after 2 weeks, please contact the office for the results. If you have any additional questions or concerns please do not hesitate to contact the office. documented in this encounter [facility] 01-03-2024 History of Present illness Narrative Terri is a 68 year old Female who presents today for an endometrial biopsy for thickening of endometrial lining. test: n/a UNIVERSAL PROTOCOL / SAFETY CHECKLIST Procedure to be Performed: endometrial biopsy Sign In: A Moment of CARE was completed. Personnel directly involved with the procedure wore the appropriate PPE (Personal Protective Equipment). Patient/Surrogate Stated/Verified: PATIENT VERIFIED(optional for EMERGENT procedures): Patient name, Date of , Relevant allergies, and The intended procedure Time Out Communication: Intended patient and procedure match the source documents. Consent documented and matches the intended procedure. No implant(s) inserted. Sign Out: SIGN OUT (optional for EMERGENT procedures): No specimen collected. All instruments, equipment, possible retained foreign bodies accounted for. Post-procedure follow-up management communicated and Plan of Care Visit completed when applicable. Lilly Escoto M.D. Patient's been having some lower pelvic cramping over the past year. She had a pelvic ultrasound last year that showed some endometrial thickening and possible polyp. She followed up in our office. She was noted to have a stenotic cervix at that time and was offered hysteroscopy D&C and she declined. She continues to have cramping but no bleeding. She was referred back by her primary care office that she continues to have thickening of the endometrium and likely a polyp in her lower uterine segment or endocervical canal. Patient states she has been planning for her 's knee replacement later this month and will have to be available to help him after surgery. PROCEDURE: EXTERNAL GENITALIA: Normal in appearance without lesions, normal labia, no lesions, normal hair distribution pattern. Narrow introitus. VAGINA: Pale flattened rugated with some petechiae, good support overall. Cervix is flush, stenotic, pale, nonfriable. BIOPSY: Speculum placed into the vagina with excellent visualization of the cervix. Cervix cleaned with betadine. Anterior lip of cervix grasped with single toothed tenaculum. I could not penetrate the cervical os with the endometrial biopsy [place]. I attempted to dilate the cervix and patient did tolerate this fairly well but I was unable to enter the cervical canal or endometrial cavity. Procedure Summary: Patient tolerated procedure well. ASSESSMENT: Pelvic cramping and endometrial polyp noted on ultrasound, cervical stenosis PLAN: Unable to complete endometrial biopsy. I discussed with patient uncertain that the polyp is related to her pelvic cramping. We reviewed risk benefits and alternatives to hysteroscopy D&C versus expectant management. Patient is not having any vaginal bleeding. We reviewed that there could be an underlying endometrial cancer that would only be diagnosed by biopsy or polyp resection. She would like to consider this and would like our office to contact her in a few days to see if she like to proceed. I discussed with her we do not have to do the hysteroscopy D&C urgently could wait till after her 's surgery when he is more mobile and needs less assistance at home. We reviewed postop expectations after hysteroscopy D&C. Would need to pretreat with misoprostol, possibly vaginal estrogen. Discussed with her even with that cannot guarantee that we be able to safely enter the endometrial cavity and there would be risk of uterine perforation and may not be able to complete the procedure if that happens. She will consider options. Lilly Escoto MD Medical Decision Making: Problems: Low: Stable chronic illness Moderate: New problem with uncertain prognosis Data: Unique test result(s) reviewed: 1 Risk: Low: Low risk from testing/treatment Medical Decision Making Level: 3 - Low documented in this encounter [facility] 01-03-2024 Miscellaneous Notes See message. Pt notified of results. Isaac Sanchez LPN Left message to return call Please let patient know that her rib x-ray was normal. Sorry it took so long to get this result back. I hope she is feeling better. documented in this encounter [facility] 01-01-2024 Miscellaneous Notes My chart message to pt. We re writing to share some news about your recent prior authorization prescription request. Unfortunately, your coverage or payment under your Medicare Part D benefit for LIDOCAINE 5% PATCH was denied. Here s why we made our decision: You asked for the drug above for your acute rib contusion; possible fracture. This is an off-label use that is not medically accepted. The Medicare rule in the Prescription Drug Benefit Manual (Chapter 6, Section 10.6) says a drug must be used for a medically accepted indication (covered use). Offlabel use is medically accepted when there is proof in one or more of the drug guides that the drug works for your condition. We look at the two major drug guides (compendia): the DRUGDEX Information System and the [facility] Formul[facility] Service Drug Information (AHFS-DI). [facility] has decided that there is no proof in either drug guide that this drug works for your condition. Per Medicare rules, it is not covered. Electronic PA rec'd and completed for lidocaine (LIDODERM) 5 % documented in this encounter [facility] 01-01-2024 Miscellaneous Notes Arthena message sent to pt. Lizzeth Decker MA Folate is slightly higher. B1 is ok. B12 is low normal. Continue on current b complex vitamin. Can follow up at next ov documented in this encounter [facility] 12-29-2023 History of Present illness Narrative Radiology Service Progress Note PATIENT NAME: Terri Villar DATE OF SERVICE: December 29, 2023 TIME: 8:41 AM PATIENT IDENTITY VERIFICATION COMPLETED USING TWO (2) IDENTIFIERS: Name and Date of confirmed by patient verbally. FALL SCREENING: Has the patient had 2 falls in the last year or 1 fall with injury or currently using an Ambulatory Assistive Device (Walker, Cane, Wheelchair, Crutches, etc.)? No PATIENT GENDER DATA: Female. status: : No status: NO. PATIENT RELEVANT IMPLANT DATA REVIEWED: Not Applicable PATIENT PRESENTS WITH AN IMPLANTABLE OR ATTACHED AUDIO PRODUCTION MANAGER: No RADIOLOGY DEPARTMENT: General X-ray: Exam(s) Completed: Rib X-Ray: Left PERIPHERAL IV DATA: Not applicable SIGNED BY: RT Russell(R) December 29, 2023 8:41 AM documented in this encounter [facility] 12-26-2023 Instructions Daylin Mendenhall APRN.CNS - 12/26/2023 8:55 AM EDT 1) Take OTC B complex every day 2) Follow up 3 months documented in this encounter [facility] 12-26-2023 History of Present illness Narrative This is a 68 year old female who presents today with: Patient presents with: ER F/U: [facility] 12/20/23 HISTORY OF PRESENT ILLNESS: Terri Villar is a 68 year old female. Patient presents with: ER F/U: [facility] 12/20/23 took her to [facility] for pelvic pain. The pain was a burning type pain for 2 days. Had also been seen in [place] a couple weeks ago for the same pain. Cramping pain, burning sometimes. Has appointment with [employer] for endometrial biopsy. No bleeding. Today only a little cramping and burning. Manageable. Treatable with [address] Ortega told her she has a gallstone. No epigastric pain. Asymptomatic. No vomiting. Occasional nausea. PAST MEDICAL HISTORY: PAST MEDICAL HISTORY Diagnosis Date Chronic kidney disease, stage III (moderate) (HCC) DDD (degenerative disc disease), cervical Dr Morfin Folate deficiency Gastritis GERD (gastroesophageal reflux disease) History of COVID-19 07/12/202106/2021 HLD (hyperlipidemia) HTN (hypertension) MTHFR mutation Osteoarthritis Pain, abdominal, RLQ Pericardial effusion RUQ pain Thyroid nodule PAST SURGICAL HISTORY Procedure Laterality Date DELIVERY ONLY 10/02/1984 , low transverse ALLERGIES Amoxicillin, Asa [Salicylates], Codeine, Cortizone-10 [Hydrocortisone], Cymbalta [Duloxetine], Dolobid [Diflunisal], Duricef [Cefadroxil], Dye, Entex La [Phenylephrine-Guaifenesin], Erythromycin, Flu Vac 2015 (65 Up)-Mf59c(Pf), Keflex [Cephalexin], Levaquin [Levofloxacin], Macrobid [Nitrofurantoin Monohyd/M-Cryst], Mobic [Meloxicam], Morphine, Pantoprazole, Penicillins, Prednisolone, Prilosec [Omeprazole], Septra [Sulfamethoxazole-Trimethoprim], Sulfa (Sulfonamide Antibiotics), and Tetracycline MEDICATIONS Current Outpatient Medications Medication Sig famotidine (PEPCID) 20 mg tablet Take 1 tablet by mouth two times a day. lisinopril (ZESTRIL) 40 mg tablet Take 1 tablet by mouth once daily. atorvastatin (LIPITOR) 10 mg tablet Take 1 tablet by mouth daily at bedtime. For cholesterol. fluticasone (FLONASE) 50 mcg/actuation nasal spray Use 2 Sprays in each nostril once daily. Rinse mouth after use. Current Facility-Administered Medications Medication Dose Route Frequency perflutren lipid microspheres 1.3 mL in NaCl (PF) 0.9% 10 mL injection (DEFINITY) INTRAVENOUS DIRECTED PRN sodium chloride 0.9 % (flush) 10 mL (BD POSIFLUSH) 10 mL INTRAVENOUS DIRECTED PRN FAMILY HISTORY Problem Relation Age of Onset Breast Cancer Mother 74 Heart Brother Diabetes Paternal Grandmother Social History Tobacco Use Smoking status: Former Smokeless tobacco: Never Vaping Use Vaping Use: Never used Substance Use Topics Alcohol use: No Drug use: No REVIEW OF SYSTEMS GENERAL: No weight loss, malaise or fevers/chills, occ tiredness HEENT: Negative for frequent or significant headaches, No changes in hearing or vision. NECK: Negative for lumps, goiter, pain and significant neck swelling RESPIRATORY: Negative for cough, hemoptysis, wheezing, dyspnea or shortness of breath CARDIOVASCULAR: Negative for chest pain, leg swelling, orthopnea, or palpitations GI: Some nausea, no vomiting, or diarrhea/constipation. No hematochezia/melena. No heartburn or reflux symptoms. : Some dysuria, no frequency or incontinence MUSCULOSKELETAL: Back joint pain or swelling. SKIN: Negative for lesions, rash, and itching ENDOCRINE: Negative for cold or heat intolerance, polyuria, polydipsia and goiter NEURO: No history of headaches, syncope, paralysis, seizures or tremors MOOD: Negative for depression, anxiety, or suicidal ideation. EXAM: BP 130/74 Pulse 93 Temp 36.9 C (98.5 F) (Left Tympanic) Resp 15 Wt 54.9 kg (121 lb) SpO2 98% BMI 20.77 kg/m PHYSICAL EXAM: General Appearance: Well appearing, alert, in no acute distress, well-hydrated, well nourished.. Skin: Skin color, texture, turgor normal, no suspicious rashes or lesions. Head: Normocephalic, no masses, lesions, tenderness or abnormalities. Lungs: Lungs clear to auscultation. No wheezing, rhonchi, rales.. Heart: RRR without murmur, gallop, or rubs. No ectopy. Abdomen: Normal abdominal exam, Abdomen soft, non-tender. Bowel sounds normal. No masses, organomegaly. Musculoskeletal: No joint swelling, deformity, or tenderness. LABS: low B12 and folate ASSESSMENT/PLAN: 1. 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 malabsorption with proteinuria - ICD9: 281.1, ICD10: D51.1 (primary diagnosis) Still low. - VITAMIN B COMPLEX TABLET 2. Folate deficiency - ICD9: 266.2, ICD10: E53.8 Low level. Positive for MTHFR. Takes OTC folate. - VITAMIN B COMPLEX TABLET 3. Pelvic pain - ICD9: [id number], ICD10: R10.2 Waxes and wanes - Has endometrial biospsy pending next week 4. Calculus of gallbladder without cholecystitis without obstruction - ICD9: 574.20, ICD10: K80.20 Stable Discussed treatment plan and patient voices understanding. Patient's questions answered appropriately. Medications and potential side effects were discussed and patient voices understanding. Return to the office as scheduled or as needed for worsening/no improvement. Daylin Mendenhall APRN.CNS The patient indicates understanding of these issues and agrees with the plan. documented in this encounter [facility] 12-15-2023 Reason for referr al (narrative) Specialty Diagnoses / Procedures Referred By Jase llanos Referred To Contact US IMAGING Diagnoses Pelvic pain Thickened endometrium Chronic kidney disease, stage 3a (HCC) Procedures US FEMALE PELVIS TRANSVAG US TRANSVAGINAL Rachael Hammond APRN.CNP [address] [place] [address] Us Imaging [id number] Referral ID Status Reason Start Date Expiration Date V isits Requested Visits Authorized [id number] Closed Auto-Generate d Referral 12/13/2023 01/11/2025 1 1 [facility]03-15-[facility]24 Reason for referral (narrative)* Diagnostic Procedure Only (Urgent) - Closed Specialty Diagnoses / Procedures Referred By Jase llanos Referred To Contact US IMAGING Diagnoses Pelvic pain Thickened endometrium Chronic kidney disease, stage 3a (HCC) Procedures US FEMALE PELVIS TRANSABD LTD US PELVIC NONOBSTETRIC IMAGE DCMTN LIMITED/F/U Rachael Hammond APRN.WASH WORKER [address] [place] [address] [place] [address] Referral ID Status Reason Start Date Expiration Date V isits Requested Visits Authorized [id number] Closed Auto-Generate d Referral 12/13/2023 10/01/2024 1 1 [facility]03-[facility] Reason for visit Narrative* Diagnostic Procedure Only (Urgent) - Closed Specialty Diagnoses / Procedures Referred By Contac t Referred To Contact US IMAGING Diagnoses Pelvic pain Thickened endometrium Chronic kidney disease, stage 3a (HCC) Procedures US FEMALE PELVIS TRANSVAG US TRANSVAGINAL Rachael Hammond APRN.WASH WORKER [address] [place] [address] [place] [address] Referral ID Status Reason Start Date Expiration Date V isits Requested Visits Authorized [id number] Closed Auto-Generate d Referral 12/13/2023 01/11/2025 1 1 [facility]03-15-[facility]24 Reason for visit Narrative* Diagnostic Procedure Only (Urgent) - Closed Specialty Diagnoses / Procedures Referred By Contac t Referred To Contact US IMAGING Diagnoses Pelvic pain Thickened endometrium Chronic kidney disease, stage 3a (HCC) Procedures US FEMALE PELVIS TRANSABD LTD US PELVIC NONOBSTETRIC IMAGE DCMTN LIMITED/F/U Rachael Hammond APRN.WASH WORKER [address] [place] [address] [place] [address] Referral ID Status Reason Start Date Expiration Date V isits Requested Visits Authorized [id number] Closed Auto-Generate d Referral 12/13/2023 10/01/2024 1 1 [facility]03-14-2024 Miscellaneous Notes* Telephone Encounter - Rachael Hammond APRN.CNP - 12/14/2023 10:38 AM EDT This is likely just an incidental finding. If she would like we can test her urine again in 5-7 days. Rachael Hammond APRN.CNP * Telephone Encounter - Tisha Garcia OCCA - 12/14/2023 7:47 AM EDT Please also see from 12/13/23 regarding test results. TUCKER Stanford documented [facility] History of Present illness Narrative* Aleksandra Young TECHNOLOGIST - 12/14/2023 10:00 AM EDT Radiology Service Progress Note PATIENT NAME: Terri Villar DATE OF SERVICE: December 14, 2023 TIME: 10:20 AM PATIENT IDENTITY VERIFICATION COMPLETED USING TWO (2) IDENTIFIERS: Name and Date of confirmedby patient verbally. FALL SCREENING: Has the patient had 2 falls in the last year or 1 fall with injury or currently using an Ambulatory Assistive Device (Walker, Cane, Wheelchair, Crutches, etc.)? No PATIENT GENDER DATA: Female. status: : No status: NO. PATIENT RELEVANT IMPLANT DATA REVIEWED: Yes PATIENT PRESENTS WITH AN IMPLANTABLE OR ATTACHED AUDIO PRODUCTION MANAGER: No RADIOLOGY DEPARTMENT: Ultrasound PERIPHERAL IV DATA: Not applicable SIGNED BY: TECHNOLOGIST Agusto December 14, 2023 10:20 AM documented in this encounter[facility] Evaluation note* Diagnosis Chronic kidney disease, stage 3a (HCC)- Primary documented in this encounter [facility]03-[facility] History of Present illness Narrative* Rachael Hammond APRN.CNP - 12/13/2023 10:40 AM EDT Chief Complaint Patient presents with: Hospital Follow Up HPI Terri Villar is a 68 year old female who presents here today for a Hospital follow up. Established pt of Dr. De Luna here today for a Hospital follow up. Pt seen at [facility] on 12/08/23 for low back pain. Pt was treated with Naproxen 550 mg 1 tabpo bid on 12/08/23. Pt here today for an ER follow up. Was told by ED that she has arthritis in her back. Notes she's having issues in her back and it's moving up farther into her back. Was given Naproxen 550 mg 1 tab po bid, but states she can't take this. Has been using Tylenol, using heat, ice and Lidocaine patches. 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 Notes previous kidney issues. Urine testing done, showing trace lysed blood. Pt was referred to [employer]ER due to thickened endometrium, but never followed up for biopsy. Is scheduled on 01/03 for an endometrial biopsy. Denies vaginal bleeding, has not had a hysterectomy. Reportedly has never had an abnormal PAP test. Urology - Previously has seen Dr. Cool, has not seen her for two years. Unsure if her issues arerelated to her bladder. Is scheduled on 01/03 for an endometrial biopsy. ER records from 12/08/23: Lumbar XR 12/08/23: CONCLUSION: 1. Grade 2 anterolisthesis of L5 on S1. There is associated disc height loss and osseous foraminal narrowing. 2. L2-3 and L3-4 mild foraminal narrowing CHIEF COMPLAINT: Lower back pain. HISTORY OF PRESENT ILLNESS: This is a 68-year-old female who has an extensive history of osteoarthritis and presents with a 2-day history of an aching pain across her lower back and radiating into the right buttock area. It is worse with movement or when she bends or tries to lift anything. She has had no change in her bowel or bladder habits. She has had no fever. She also denies any perineal anesthesia. She has had problems with her back in the past. She has multiple allergies to medications. She has not taken anything for this. She denies any dysuria or frequency. DIAGNOSTIC DATA: The x-rays of the lower back show degenerative disease and osteoarthritis with some areas of spondylolisthesis and narrowing. The urine is clear without evidence of infection. There is a trace of blood MEDICAL DECISION-MAKING/EMERGENCY DEPARTMENT COURSE AND TREATMENT: This is a 68-year-old female who presents with a 2-day history of lower back pain worsened with movement. Differential diagnosis includes urinary tract infection, pyelonephritis, lumbar strain, and acute sciatica. I discussed the situation with the patient. She is comfortable returning home. She indicates she has taken ibuprofen without problems in the past. The patient will be given Anaprox for pain as well as a Lidoderm patch. Follow up with her primary physician Past medical history, appointments, medications, allergies reviewed. Previous Medical History PAST MEDICAL HISTORY Diagnosis Date Chronic kidney disease, stage III (moderate) (HCC) DDD (degenerative disc disease), cervical Dr Morfin Folate deficiency Gastritis GERD (gastroesophageal reflux disease) History of COVID-19 07/12/202106/2021 HLD (hyperlipidemia) HTN (hypertension) MTHFR mutation Osteoarthritis Pain, abdominal, RLQ Pericardial effusion RUQ pain Thyroid nodule Previous Surgical History PAST SURGICAL HISTORY Procedure Laterality Date DELIVERY ONLY 10/02/1984 , low transverse Family History FAMILY HISTORY Problem Relation Age of Onset Breast Cancer Mother 74 Heart Brother Diabetes Paternal Grandmother Patient Allergies ALLERGIES Allergen Reactions Amoxicillin Itching Asa [Salicylates] Itching Codeine Itching Cortizone-10 [[place]* Itching Cymbalta [Duloxetin* Intolerance One pill: bruning all over Dolobid [Diflunisal] Itching Duricef [Cefadroxil] Itching Dye Shortness of Breath Ct dye. Including rash Entex La [Phenyleph* Itching Erythromycin Itching Flu Vac 2014 (65 Up* Shortness of Breath Keflex [Cephalexin] Itching Levaquin [Levofloxa* Other: See Comments itching Macrobid [Nitrofura* Other: See Comments Fast heart rate Mobic [Meloxicam] Itching Morphine Itching Pantoprazole Itching Penicillins Hives Prednisolone Other: See Comments Elevated blood pressure. Has done well with medrol dose april. Prilosec [Omeprazol* Itching Septra [Sulfamethox* Hives Sulfa (Sulfonamide * Hives Tetracycline Hives Can take doxycycline Current Medications Current Outpatient Medications on File Prior to Visit Medication Sig famotidine (PEPCID) 20 mg tablet Take 1 tablet by mouth two times a day. lisinopril (ZESTRIL) 40 mg tablet Take 1 tablet by mouth once daily. atorvastatin (LIPITOR) 10 mg tablet Take 1 tablet by mouth daily at bedtime. For cholesterol. fluticasone (FLONASE) 50 mcg/actuation nasal spray Use 2 Sprays in each nostril once daily. Rinse mouth after use. Current Facility-Administered Medications on File Prior to Visit Medication perflutren lipid microspheres 1.3 mL in NaCl (PF) 0.9% 10 mL injection (DEFINITY) sodium chloride 0.9 % (flush) 10 mL (BD POSIFLUSH) Social History Social History Tobacco Use Smoking status: Former Smokeless tobacco: Never Vaping Use Vaping Use: Never used Substance Use Topics Alcohol use: No Drug use: No Review of Symptoms REVIEW OF SYSTEMS Previous records, office notes EXAM: BP 128/80 (BP Site: Left Arm, BP Position: Sitting, BP Cuff Size: Regular Adult) Pulse 80 Resp 18 Wt 54.7 kg (120 lb 9.6 oz) BMI 20.70 kg/m General Appearance: Well appearing, alert, in no acute distress, well-hydrated, well nourished.. Back:no pain to palpation of vertebrae, good flexion and extension, good range of motion, no muscletenderness, motor and sensory appear to be normal Lungs: Lungs clear to auscultation. No wheezing, rhonchi, rales.. Heart: RRR without murmur, gallop, or rubs. No ectopy. Abdomen: Normal abdominal exam, Abdomen soft, non-tender. Bowel sounds normal. No masses, organomegaly, Negative CVA tenderness. Generalized tenderness to palpation in suprapubic area. Psychiatric: pleasant, cooperative. Health Maintenance List BP Controlled (<130/80) due on 09/07/2023 RSV Vaccine(1 - 1-dose 60+ series) due on 08/21/2024 Covid-19 Vaccine(2 - 2022- season) due on 08/21/2024 Shingrix Vaccine(1 of 2) due on 10/25/2024 Pneumococcal Vaccine: 65+(1 of 1 - PCV) due on 10/25/2024 Mammogram Screening due on 10/18/2024 Colorectal Cancer Screening due on 10/30/2024 Serum Creatinine due on 10/31/2024 Hemoglobin/Hematocrit due on 10/31/2024 Annual PCP Team Chronic Disease Visit due on 12/10/2024 Diabetes Screening due on 10/31/2026 Lipid Screening due on 10/11/2028 DTaP,Tdap,Td Vaccine(2 - Td or Tdap) due on 10/13/2031 Bone Density Screening Completed Advance Directive Discussion Completed Depression Assessment Completed Hepatitis C Screening Completed Influenza Vaccine Discontinued Data reviewed Previous records, office notes ASSESSMENT/PLAN: 1. Pelvic pain - ICD9: [id number], ICD10: R10.2 (primary diagnosis) Ultrasound to be completed in the next few days. Recommend she follow back up with Dr. Cool, [facility] urology. She is having her endometrial biopsy completed on 01/04/2024. - US FEMALE PELVIS TRANSABD LTD - US FEMALE PELVIS TRANSVAG - RENAL FUNCTION PANEL - URINALYSIS WITH MICROSCOPIC, REFLEX CULTURE 2. Thickened endometrium - ICD9: 793.5, ICD10: R93.89 Ultrasound to be completed in the next few days. Recommend she follow back up with Dr. Cool, [facility] urology. She is having her endometrial biopsy completed on 01/04/2024. - US FEMALE PELVIS TRANSABD LTD - US FEMALE PELVIS TRANSVAG - RENAL FUNCTION PANEL - URINALYSIS WITH MICROSCOPIC, REFLEX CULTURE 3. Chronic kidney disease, stage 3a (HCC) - ICD9: 585.3, ICD10: N18.31 Ultrasound to be completed in the next few days. Recommend she follow back up with Dr. Cool, [facility] urology. She is having her endometrial biopsy completed on 01/04/2024. - US FEMALE PELVIS TRANSABD LTD - US FEMALE PELVIS TRANSVAG - RENAL FUNCTION PANEL - URINALYSIS WITH MICROSCOPIC, REFLEX CULTURE Rachael Hammond APRN.WILFREDO documented in [facility] Reason for referral (narrative)* Diagnostic Procedure Only (Urgent) - Authorized Specialty Diagnoses / Procedures Referred By Contrex t Referred To Contact US IMAGING Diagnoses Pelvic pain Thickened endometrium Chronic kidney disease, stage 3a (HCC) Procedures US FEMALE PELVIS TRANSVAG US TRANSVAGINAL Rachael Hammond APRN.WASH WORKER [address] [place] [address] [place] [address] Referral ID Status Reason Start Date Expiration Date Visits Requested Visits Authorized [id number] Authorized Auto-Generat ed Referral 12/13/2023 01/11/2025 1 1 * Diagnostic Procedure Only (Urgent) - Authorized Specialty Diagnoses / Procedures Referred By Contac t Referred To Contact US IMAGING Diagnoses Pelvic pain Thickened endometrium Chronic kidney disease, stage 3a (HCC) Procedures US FEMALE PELVIS TRANSABD LTD US PELVIC NONOBSTETRIC IMAGE DCMTN LIMITED/F/U Rachael Hammond APRN.WASH WORKER [address] [place] [address] [place] [id number] Referral ID Status Reason Start Date Expiration Date Visits Requested Visits Authorized [id number] Authorized Auto-Generat ed Referral 12/13/2023 10/01/2024 1 1 [facility]03-11-[facility] History of Present illness Narrative* Adelaida Pichardo PA-C - 12/11/2023 9:45 AM EDT Chief Complaint Patient presents with: pelvic pain x 2 days HPI Terri Villar is a 68 year old female who presents here today for Above Complaints.. Patient reports suprapubic pressure for the past 3 days. States it is similar to symptoms she has had in past. Has seen nurse obgyn and was told she had thickened endometrium but did not schedule follow up with nurse obgyn forbiopsy however patient did not schedule. Denies any urinary symptoms. Past medical history, appointments, medications, allergies reviewed. Previous Medical History PAST MEDICAL HISTORY Diagnosis Date Chronic kidney disease, stage III (moderate) (HCC) DDD (degenerative disc disease), cervical Dr Knapic Folate deficiency Gastritis GERD (gastroesophageal reflux disease) History of COVID-19 07/12/202106/2021 HLD (hyperlipidemia) HTN (hypertension) MTHFR mutation Osteoarthritis Pain, abdominal, RLQ Pericardial effusion RUQ pain Thyroid nodule Previous Surgical History PAST SURGICAL HISTORY Procedure Laterality Date DELIVERY ONLY 10/02/1984 , low transverse Family History FAMILY HISTORY Problem Relation Age of Onset Breast Cancer Mother 74 Heart Brother Diabetes Paternal Grandmother Patient Allergies ALLERGIES Allergen Reactions Amoxicillin Itching Asa [Salicylates] Itching Codeine Itching Cortizone-10 [[place]* Itching Cymbalta [Duloxetin* Intolerance One pill: bruning all over Dolobid [Diflunisal] Itching Duricef [Cefadroxil] Itching Dye Shortness of Breath Ct dye. Including rash Entex La [Phenyleph* Itching Erythromycin Itching Flu Vac 2014 (65 Up* Shortness of Breath Keflex [Cephalexin] Itching Levaquin [Levofloxa* Other: See Comments itching Macrobid [Nitrofura* Other: See Comments Fast heart rate Mobic [Meloxicam] Itching Morphine Itching Pantoprazole Itching Penicillins Hives Prednisolone Other: See Comments Elevated blood pressure. Has done well with medrol dose april. Prilosec [Omeprazol* Itching Septra [Sulfamethox* Hives Sulfa (Sulfonamide * Hives Tetracycline Hives Can take doxycycline Current Medications Current Outpatient Medications on File Prior to Visit Medication Sig famotidine (PEPCID) 20 mg tablet Take 1 tablet by mouth two times a day. lisinopril (ZESTRIL) 40 mg tablet Take 1 tablet by mouth once daily. atorvastatin (LIPITOR) 10 mg tablet Take 1 tablet by mouth daily at bedtime. For cholesterol. fluticasone (FLONASE) 50 mcg/actuation nasal spray Use 2 Sprays in each nostril once daily. Rinse mouth after use. benzonatate (TESSALON PERLE) 100 mg capsule Take 1 capsule by mouth three times a day as needed forcough for up to 10 days. folic acid 1 mg tablet Take 1 mg by mouth once daily. Current Facility-Administered Medications on File Prior to Visit Medication perflutren lipid microspheres 1.3 mL in NaCl (PF) 0.9% 10 mL injection (DEFINITY) sodium chloride 0.9 % (flush) 10 mL (BD POSIFLUSH) Social History Social History Tobacco Use Smoking status: Former Smokeless tobacco: Never Vaping Use Vaping Use: Never used Substance Use Topics Alcohol use: No Drug use: No Review of Symptoms REVIEW OF SYSTEMS See hpie EXAM: BP 118/80 (BP Site: Left Arm, BP Position: Sitting, BP Cuff Size: Regular Adult) Pulse 68 Temp 36.4 C (97.5 F) Resp 16 Wt 53.5 kg (118 lb) BMI 20.25 kg/m General Appearance: Well appearing, alert, in no acute distress, well-hydrated, well nourished.. Abdomen: Normal abdominal exam, Abdomen soft, non-tender. Bowel sounds normal. No masses, organomegaly. Health Maintenance List BP Controlled (<130/80) due on 09/07/2023 RSV Vaccine(1 - 1-dose 60+ series) due on 08/21/2024 Covid-19 Vaccine(2 - 2022- season) due on 08/21/2024 Shingrix Vaccine(1 of 2) due on 10/25/2024 Pneumococcal Vaccine: 65+(1 of 1 - PCV) due on 10/25/2024 Mammogram Screening due on 10/18/2024 Colorectal Cancer Screening due on 10/30/2024 Serum Creatinine due on 10/31/2024 Hemoglobin/Hematocrit due on 10/31/2024 Annual PCP Team Chronic Disease Visit due on 12/06/2024 Diabetes Screening due on 10/31/2026 Lipid Screening due on 10/11/2028 DTaP,Tdap,Td Vaccine(2 - Td or Tdap) due on 10/13/2031 Bone Density Screening Completed Advance Directive Discussion Completed Depression Assessment Completed Hepatitis C Screening Completed Influenza Vaccine Discontinued Data reviewed ASSESSMENT/PLAN: 1. Thickened endometrium - ICD9: 793.5, ICD10: R93.89 (primary diagnosis) Needs to get back with nurse obgyn. I discussed in detail, the reason to why she needs to follow up with nurse obgyn. - CONSULT TO GYNECOLOGY 2. Suprapubic pressure - ICD9: 789.09, ICD10: R10.2 Unclear at this time. Urine is clear/stable Needs to nurse obgyn as above. Consider return to urology. Adelaida Pichardo PA-C documented in this encounterG[facility] History of Present illness Narrative* Cher Crabtree APRN.WASH WORKER - 12/07/2023 7:20 AM EST This is a 68 year old female who presents today with: Patient presents with: Cough: Fatigue HISTORY OF PRESENT ILLNESS: Terri Villar is a 68 year old female. Patient presents with: Cough: Fatigue Patient of Dr. De Luna here in the office for body aches and fatigue. Saw PCP on 11/24/2023, diagnosedwith URI. Tested negative for COVID/flu/RSV. On going cough and post nasal drip since she saw PCP. Throat is sore from mucus. No fever, chills, or ear pain. Has been taking Flonase and tylenol. PAST MEDICAL HISTORY: PAST MEDICAL HISTORY Diagnosis Date Chronic kidney disease, stage III (moderate) (HCC) DDD (degenerative disc disease), cervical Dr Morfin Folate deficiency Gastritis GERD (gastroesophageal reflux disease) History of COVID-19 07/12/202106/2021 HLD (hyperlipidemia) HTN (hypertension) MTHFR mutation Osteoarthritis Pain, abdominal, RLQ Pericardial effusion RUQ pain Thyroid nodule PAST SURGICAL HISTORY Procedure Laterality Date DELIVERY ONLY 10/02/1984 , low transverse ALLERGIES Amoxicillin, Asa [Salicylates], Codeine, Cortizone-10 [Hydrocortisone], Cymbalta [Duloxetine], Dolobid [Diflunisal], Duricef [Cefadroxil], Dye, Entex La [Phenylephrine-Guaifenesin], Erythromycin, Flu Vac 2015 (65 Up)-Mf59c(Pf), Keflex [Cephalexin], Levaquin [Levofloxacin], Macrobid [Nitrofurantoin Monohyd/M-Cryst], Mobic [Meloxicam], Morphine, Pantoprazole, Penicillins, Prednisolone, Prilosec [Omeprazole], Septra [Sulfamethoxazole- Trimethoprim], Sulfa (Sulfonamide Antibiotics), and Tetracycline MEDICATIONS Current Outpatient Medications Medication Sig famotidine (PEPCID) 20 mg tablet Take 1 tablet by mouth two times a day. cyclobenzaprine (FLEXERIL) 10 mg tablet Take 1 tablet by mouth three times a day as needed. lisinopril (ZESTRIL) 40 mg tablet Take 1 tablet by mouth once daily. folic acid 1 mg tablet Take 1 mg by mouth once daily. atorvastatin (LIPITOR) 10 mg tablet Take 1 tablet by mouth daily at bedtime. For cholesterol. fluticasone (FLONASE) 50 mcg/actuation nasal spray Use 2 Sprays in each nostril once daily. Rinse mouth after use. Current Facility-Administered Medications Medication Dose Route Frequency perflutren lipid microspheres 1.3 mL in NaCl (PF) 0.9% 10 mL injection (DEFINITY) INTRAVENOUS DIRECTED PRN sodium chloride 0.9 % (flush) 10 mL (BD POSIFLUSH) 10 mL INTRAVENOUS DIRECTED PRN FAMILY HISTORY Problem Relation Age of Onset Breast Cancer Mother 74 Heart Brother Diabetes Paternal Grandmother Social History Tobacco Use Smoking status: Former Smokeless tobacco: Never Vaping Use Vaping Use: Never used Substance Use Topics Alcohol use: No Drug use: No REVIEW OF SYSTEMS GENERAL: + Fatigue HEENT: Negative for frequent or significant headaches, No changes in hearing or vision. + Post Nasal Drip NECK: Negative for lumps, goiter, pain and significant neck swelling RESPIRATORY: + Cough CARDIOVASCULAR: Negative for chest pain, leg swelling, orthopnea, or palpitations GI: No nausea, vomiting, or diarrhea/constipation. No hematochezia/melena. No heartburn or reflux symptoms. : No history of dysuria, frequency or incontinence MUSCULOSKELETAL: Negative for joint pain or swelling. SKIN: Negative for lesions, rash, and itching ENDOCRINE: Negative for cold or heat intolerance, polyuria, polydipsia and goiter NEURO: No history of headaches, syncope, paralysis, seizures or tremors MOOD: Negative for depression, anxiety, or suicidal ideation. EXAM: BP 130/78 Pulse 80 Temp 36.5 C (97.7 F) Resp 18 SpO2 97% PHYSICAL EXAM: General Appearance: Well appearing, alert, in no acute distress, well-hydrated, well nourished.. Skin: Skin color, texture, turgor normal, no suspicious rashes or lesions. Head: Normocephalic, no masses, lesions, tenderness or abnormalities. Eyes: Anicteric sclera. Extraocular movements are intact. Ears: External ears normal, canals clear, left TM pearly hernandez. Cerumen impaction noted on the rightear. Unable to visualize TM. Nose/Sinuses: Nares normal, septum midline, mucosa normal, no drainage or sinus tenderness. Oropharynx: Lips, mucosa, and tongue normal, teeth and gums normal, oropharynx normal. Neck: Supple, no adenopathy; thyroid symmetric, normal size, no bruits. Lungs: Lungs clear to auscultation. No wheezing, rhonchi, rales. Heart: RRR without murmur, gallop, or rubs. No ectopy. Extremities: No deformities, edema, skin discoloration, clubbing or cyanosis. Good capillary refill. Peripheral Pulses: Normal, Capillary refill <2secs, strong peripheral pulses, Pulses palpable. Neurologic: Gait normal. Sensation grossly intact. ASSESSMENT/PLAN: 1. URI, acute - ICD9: 465.9, ICD10: J06.9 (primary diagnosis) - Discussed viral etiology and rationale for treatment. - Symptomatic treatment with prn analgesia - Supportive care with fluids and rest - Exam was normal. May be having postviral syndrome. - May continue with supportive care at home, may use [id number] cold and cough medications for symptom management. - BENZONATATE 100 MG CAPSULE 2. Post viral syndrome - ICD9: 780.79, ICD10: G93.31 - Same plan as #1. 3. Impacted cerumen of right ear - ICD9: 380.4, ICD10: H61.21 - Use OTC debrox ear drops into the right ear. - Follow up for ear lavage if needed. Follow-up if no improvement. Discussed treatment plan and patient voices understanding. Patient's questions answered appropriately. Medications and potential side effects were discussed and patient voices understanding. Cher Crabtree APRN.WILFREDO This note was partially generated using [employer] voice recognition system. Note was reviewed for accuracy. There may be minor misspellings or grammar miscues with [employer] voice recognition. documented in this encounterG[facility]03-[facility]24 Instructions* Patient Instructions* Cher Crabtree APRN.CNP - 12/07/2023 7:18 AM EST Continue supportive care at home Stay well hydrated May use tessalon perles as needed for cough. Continue to use Flonase twice daily. Follow up if no improvement. documented in this encounterG[facility]03-[facility]24 Miscellaneous Notes* Telephone Encounter - Dianna Durant LPN - 12/04/2023 4:54 PM EST Patient notified. * Telephone Encounter - Tawanna Guzman LPN - 12/04/2023 3:48 PM EST Marija with Dr. Onel Mayen's office calls to report they cannot see pt because they do not accept her insurance: [employer]. See MC messages from today. Tawanna Guzman LPN documented in this encounterG[facility]03-04-[facility]24 Miscellaneous Notes* Telephone Encounter - Brianna Varghese Ma - 12/04/2023 9:19 AM EST Referral paperwork faxed to [phone] Dr. Onel Mayen [facility] [place]. Notified pt via Chti[employer] thatpaperwork has been faxed and to contact there office to schedule. Brianna Varghese Ma documented in this encounterGlen[facility]02-23-2024 History of Present illness Narrative* Bridget De Luna MD - 11/24/2023 8:19 AM EST Patient presents with: Head Congestion HPI: Patient presents today for office visit for acute illness. States she was with her son and his family on Monday11/20/23. States on Monday11/21/23 her son informed her that they had all tested positive for COVID. Has been feeling congested with stuffy nose and fatigued since Monday11/22/23. Using Flonase with no relief. Denies fever. Mild headache. Some body aches. Using tylenol prn. Denies any cough. Denies sore throat. No nausea or vomiting or diarrhea. Took home covid test last night, was negative. Did discuss antivirals, prefers to avoid. MEDICATIONS: Current Outpatient Medications Medication Sig famotidine (PEPCID) 20 mg tablet Take 1 tablet by mouth two times a day. cyclobenzaprine (FLEXERIL) 10 mg tablet Take 1 tablet by mouth three times a day as needed. lisinopril (ZESTRIL) 40 mg tablet Take 1 tablet by mouth once daily. folic acid 1 mg tablet Take 1 mg by mouth once daily. atorvastatin (LIPITOR) 10 mg tablet Take 1 tablet by mouth daily at bedtime. For cholesterol. fluticasone (FLONASE) 50 mcg/actuation nasal spray Use 2 Sprays in each nostril once daily. Rinse mouth after use. Current Facility-Administered Medications Medication Dose Route Frequency perflutren lipid microspheres 1.3 mL in NaCl (PF) 0.9% 10 mL injection (DEFINITY) INTRAVENOUS DIRECTED PRN sodium chloride 0.9 % (flush) 10 mL (BD POSIFLUSH) 10 mL INTRAVENOUS DIRECTED PRN ALLERGIES: ALLERGIES Allergen Reactions Amoxicillin Itching Asa [Salicylates] Itching Codeine Itching Cortizone-10 [[place]* Itching Cymbalta [Duloxetin* Intolerance One pill: bruning all over Dolobid [Diflunisal] Itching Duricef [Cefadroxil] Itching Dye Shortness of Breath Ct dye. Including rash Entex La [Phenyleph* Itching Erythromycin Itching Flu Vac 2014 (65 Up* Shortness of Breath Keflex [Cephalexin] Itching Levaquin [Levofloxa* Other: See Comments itching Macrobid [Nitrofura* Other: See Comments Fast heart rate Mobic [Meloxicam] Itching Morphine Itching Pantoprazole Itching Penicillins Hives Prednisolone Other: See Comments Elevated blood pressure. Has done well with medrol dose april. Prilosec [Omeprazol* Itching Septra [Sulfamethox* Hives Sulfa (Sulfonamide * Hives Tetracycline Hives Can take doxycycline PAST MEDICAL HISTORY Diagnosis Date Chronic kidney disease, stage III (moderate) (HCC) DDD (degenerative disc disease), cervical Dr Navjot Folate deficiency Gastritis GERD (gastroesophageal reflux disease) History of COVID-19 07/12/202106/2021 HLD (hyperlipidemia) HTN (hypertension) MTHFR mutation Osteoarthritis Pain, abdominal, RLQ Pericardial effusion RUQ pain Thyroid nodule PAST SURGICAL HISTORY Procedure Laterality Date DELIVERY ONLY 10/02/1984 , low transverse FAMILY HISTORY Problem Relation Age of Onset Breast Cancer Mother 74 Heart Brother Diabetes Paternal Grandmother Social History Tobacco Use Smoking status: Former Smokeless tobacco: Never Vaping Use Vaping Use: Never used Substance Use Topics Alcohol use: No Drug use: No Reviewed current medications, allergies, past medical history, surgical history, family history andsocial history today. REVIEW OF SYSTEMS All other reviewed and negative other than HPI. HEALTH MAINTENANCE: Reviewed health maintenance issues today and recommended the following in detail. BP Controlled (<130/80) due on 09/07/2023 VITALS: BP 120/64 Pulse 80 Temp 36.9 C (98.4 F) Ht 162.6 cm (5' 4) Wt 54.4 kg (120 lb) SpO2 99% BMI 20.60 kg/m Last 4 Encounter Wt Readings: Date: Wt: 11/15/2023 53.3 kg (117 lb 6.4 oz) 11/09/2023 53.1 kg (117 lb) 11/06/2023 53.1 kg (117 lb) 10/31/2023 53.6 kg (118 lb 3.2 oz) PHYSICAL EXAMINATION: General appearance: Well appearing, alert, in no acute distress, well-hydrated, well nourished. Skin: Skin color, texture, turgor normal, no suspicious rashes or lesions Head: Normocephalic, no masses, lesions, tenderness or abnormalities Eyes: Anicteric sclera. Pupils are equally round and reactive to light. Extraocular movements are intact. Ears: External ears normal, canals clear Nose/Sinuses: Nares normal, septum midline, mucosa normal, no drainage or sinus tenderness Oropharynx: Lips, mucosa, and tongue normal, teeth and gums normal, oropharynx normal Neck: Supple, no adenopath Lungs: Lungs clear to auscultation. No wheezing, rhonchi, rales Heart: RRR without murmur, gallop, or rubs. No ectopy Abdomen: Normal abdominal exam, Abdomen soft, non-tender. Bowel sounds normal. No masses, organomegaly ASSESSMENT/PLAN: 1. URI, acute - ICD9: 465.9, ICD10: J06.9 - Discussed viral etiology and rationale for treatment. - Symptomatic treatment with prn analgesia - Supportive care with fluids and rest - do covid and flu testing. Red flags for re-assessment reviewed with patient in detail. Use mucinex prn. - COVID & INFLUENZA A/B & RSV NAAT, ROUTINE Discussed antivirals. She does not want them at this time. Bridget De Luna MD documented in this encounterGlen[facility]02-19-2024 Miscellaneous Notes* Telephone Encounter - Bridget De Luna MD - 11/20/2023 2:02 PM EST Ok follow below * Telephone Encounter - Gisela Quinn RN - 11/20/2023 12:32 PM EST Pt called and is notified of providers message and instructions. Pt voices understanding. Pt statesshe is ordered the Folic Acid and takes 1 mg tab daily. Gisela Quinn, YESENIA * Telephone Encounter - Bridget De Luna MD - 11/20/2023 11:47 AM EST Increase to folic acid bid for one week. Recheck in one month. Have her verify amount in med. I think she is getting otc. * Telephone Encounter - iDanna Durant LPN - 11/20/2023 9:46 AM EST Patient states that taking everyday and even tries to take a little extra. * Telephone Encounter - Bridget De Luna MD - 11/18/2023 8:11 AM EST Folate is still low. Is she taking her folic acid. Is she missing any doses? documented in this encounterGlen[facility]igh Hospital02-14-2024 History of Present illness Narrative* Deng Higgins PA - 11/15/2023 8:29 AM EST This note was created using FoundationDB[employer]. Subjective Terri Villar is a 68 year old female. HPI 68-year-old female presents for burning with urination, frequency starting this morning at about 1:30 AM. Patient states she got up in the [place] to urinate and had some burning with it. She states that the burning has slightly improved. She has had some frequency this morning as well. She states that she was shopping yesterday and did not drink as much water as she usually does. She has not noticed any blood in her urine. She does state that her UAs always show a small amount of blood inher urine. She has seen urology in the past and had a cystoscopy which was normal. She states they never figured out why she has trace amounts of blood in the urine. No abdominal pain or back pain. No fevers or vomiting. Patient does have CKD stage III. She has had UTIs in the past. She was last seen here in June for dysuria and urine culture was negative at that time. PAST MEDICAL HISTORY Diagnosis Date Chronic kidney disease, stage III (moderate) (HCC) DDD (degenerative disc disease), cervical Dr Knapic Folate deficiency Gastritis GERD (gastroesophageal reflux disease) History of COVID-19 07/12/202106/2021 HLD (hyperlipidemia) HTN (hypertension) MTHFR mutation Osteoarthritis Pain, abdominal, RLQ Pericardial effusion RUQ pain Thyroid nodule PAST SURGICAL HISTORY Procedure Laterality Date DELIVERY ONLY 10/02/1984 , low transverse ALLERGIES Amoxicillin, Asa [Salicylates], Codeine, Cortizone-10 [Hydrocortisone], Cymbalta [Duloxetine], Dolobid [Diflunisal], Duricef [Cefadroxil], Dye, Entex La [Phenylephrine-Guaifenesin], Erythromycin, Flu Vac 2014 (65 Up)-Mf59c(Pf), Keflex [Cephalexin], Levaquin [Levofloxacin], Macrobid [Nitrofurantoin Monohyd/M-Cryst], Mobic [Meloxicam], Morphine, Pantoprazole, Penicillins, Prednisolone, Prilosec [Omeprazole], Septra [Sulfamethoxazole- Trimethoprim], Sulfa (Sulfonamide Antibiotics), and Tetracycline MEDICATIONS famotidine (PEPCID) 20 mg tablet^Take 1 tablet by mouth two times a day.^Disp: 60 tablet^Rfl: 5 cyclobenzaprine (FLEXERIL) 10 mg tablet^Take 1 tablet by mouth three times a day as needed.^Disp: 30 tablet^Rfl: 0 lisinopril (ZESTRIL) 40 mg tablet^Take 1 tablet by mouth once daily.^Disp: 90 tablet^Rfl: 1 atorvastatin (LIPITOR) 10 mg tablet^Take 1 tablet by mouth daily at bedtime. For cholesterol.^Disp:90 tablet^Rfl: 3 fluticasone (FLONASE) 50 mcg/actuation nasal spray^Use 2 Sprays in each nostril once daily. Rinse mouth after use.^Disp: 3 Each^Rfl: 3 tiZANidine (ZANAFLEX) 4 mg tablet^Take 1 tablet by mouth every 8 hours as needed (muscle spasms) for up to 10 days.^Disp: 30 tablet^Rfl: 0 folic acid 1 mg tablet^Take 1 mg by mouth once daily.^Disp: ^Rfl: FAMILY HISTORY Problem Relation Age of Onset Breast Cancer Mother 74 Heart Brother Diabetes Paternal Grandmother Social History Tobacco Use Smoking status: Former Smokeless tobacco: Never Vaping Use Vaping Use: Never used Substance Use Topics Alcohol use: No Drug use: No Review of Systems Constitutional: Negative for chills and fever. HENT: Negative for congestion, ear pain and sore throat. Respiratory: Negative for cough and shortness of breath. Cardiovascular: Negative for chest pain. Gastrointestinal: Negative for abdominal pain, diarrhea and vomiting. Genitourinary: Positive for dysuria and frequency. Negative for flank pain, hematuria and urgency. Musculoskeletal: Negative for back pain. Objective BP 128/82 Pulse 80 Temp 36.8 C (98.2 F) (Tympanic) Resp 18 Wt 53.3 kg (117 lb 6.4 oz) SpO2 98% BMI 20.15 kg/m Physical Exam Vitals and nursing note reviewed. Constitutional: General: She is not in acute distress. Appearance: Normal appearance. She is not toxic-appearing. Cardiovascular: Rate and Rhythm: Normal rate and regular rhythm. Pulmonary: Effort: Pulmonary effort is normal. Breath sounds: Normal breath sounds. Abdominal: General: Abdomen is flat. Palpations: Abdomen is soft. Tenderness: There is no abdominal tenderness. There is no right CVA tenderness or left CVA tenderness. Neurological: Mental Status: She is alert. Assessment and Plan ASSESSMENT/PLAN: 1. Urinary frequency - ICD9: 788.41, ICD10: R35.0 - UA positive for trace- lysed hematuria-present on prior urine dips. -Patient has seen urology in the past and had cystoscopy. - Send urine for culture - Patient education for prevention given - UA DIP, URINE (POC) - URINE CULTURE -Patient has multiple allergies, urine only reveals trace lysed hematuria which has been present onprior urine dips with negative cultures. No antibiotic given at this time. We will await urine culture. -If urine culture positive, patient states she usually is given ciprofloxacin for UTI d/t allergiesand CKD. -Calculated creatinine clearance from labs 10/2023- Diagnosis and treatment plan were discussed and questions were answered to the patient's satisfaction. Pt acknowledged understanding of concepts and follow up plan. Specific signs and symptoms that would indicate the need for higher level of care were discussed in detail warranting prompt ER evaluation. DARCY Juarez documented in this encounterGlen[facility] Hospital02-08-2024 History of Present illness Narrative* Cher Crabtree APRN.[facility] - 11/09/2023 8:00 AM EST This is a 68 year old female who presents today with: Patient presents with: Acute Visit: twisted back HISTORY OF PRESENT ILLNESS: Terri Villar is a 68 year old female. Patient presents with: Acute Visit: twisted back Patient of Dr. De Luna here in the office for back and rib pain. Concerns she may have twisted her back wrong. On Monday was carrying a printer at [employer], she almost dropped it. Refers pain started yesterday in mid back. An ache pain. Has been taking Tylenol, flexeril, and applying heat. Mild improvement. No numbness and tingling into the legs. No fall. No loss of bowel or bladder or saddle anesthesia. Was seen for ear pain this week and pharmacy never received RX for ear drops. PAST MEDICAL HISTORY: PAST MEDICAL HISTORY Diagnosis Date Chronic kidney disease, stage III (moderate) (HCC) DDD (degenerative disc disease), cervical Dr Navjot Folate deficiency Gastritis GERD (gastroesophageal reflux disease) History of COVID-19 07/12/202106/2021 HLD (hyperlipidemia) HTN (hypertension) MTHFR mutation Osteoarthritis Pain, abdominal, RLQ Pericardial effusion RUQ pain Thyroid nodule PAST SURGICAL HISTORY Procedure Laterality Date DELIVERY ONLY 10/02/1984 , low transverse ALLERGIES Amoxicillin, Asa [Salicylates], Codeine, Cortizone-10 [Hydrocortisone], Cymbalta [Duloxetine], Dolobid [Diflunisal], Duricef [Cefadroxil], Dye, Entex La [Phenylephrine-Guaifenesin], Erythromycin, Flu Vac 2015 (65 Up)-Mf59c(Pf), Keflex [Cephalexin], Levaquin [Levofloxacin], Macrobid [Nitrofurantoin Monohyd/M-Cryst], Mobic [Meloxicam], Morphine, Pantoprazole, Penicillins, Prednisolone, Prilosec [Omeprazole], Septra [Sulfamethoxazole- Trimethoprim], Sulfa (Sulfonamide Antibiotics), and Tetracycline MEDICATIONS Current Outpatient Medications Medication Sig eabxjpzd-[id number]-[id number] (CORTISPORIN) 3.5-10,000-1 mg/mL-unit/mL-% otic suspension Use 3 Drops in the left ear three times a day for 3 days. famotidine (PEPCID) 20 mg tablet Take 1 tablet by mouth two times a day. cyclobenzaprine (FLEXERIL) 10 mg tablet Take 1 tablet by mouth three times a day as needed. lisinopril (ZESTRIL) 40 mg tablet Take 1 tablet by mouth once daily. folic acid 1 mg tablet Take 1 mg by mouth once daily. atorvastatin (LIPITOR) 10 mg tablet Take 1 tablet by mouth daily at bedtime. For cholesterol. fluticasone (FLONASE) 50 mcg/actuation nasal spray Use 2 Sprays in each nostril once daily. Rinse mouth after use. Current Facility-Administered Medications Medication Dose Route Frequency perflutren lipid microspheres 1.3 mL in NaCl (PF) 0.9% 10 mL injection (DEFINITY) INTRAVENOUS DIRECTED PRN sodium chloride 0.9 % (flush) 10 mL (BD POSIFLUSH) 10 mL INTRAVENOUS DIRECTED PRN FAMILY HISTORY Problem Relation Age of Onset Breast Cancer Mother 74 Heart Brother Diabetes Paternal Grandmother Social History Tobacco Use Smoking status: Former Smokeless tobacco: Never Vaping Use Vaping Use: Never used Substance Use Topics Alcohol use: No Drug use: No REVIEW OF SYSTEMS GENERAL: No weight loss, malaise or fevers/chills HEENT: Negative for frequent or significant headaches, No changes in hearing or vision. NECK: Negative for lumps, goiter, pain and significant neck swelling RESPIRATORY: Negative for cough, hemoptysis, wheezing, dyspnea or shortness of breath CARDIOVASCULAR: Negative for chest pain, leg swelling, orthopnea, or palpitations GI: No nausea, vomiting, or diarrhea/constipation. No hematochezia/melena. No heartburn or reflux symptoms. : No history of dysuria, frequency or incontinence MUSCULOSKELETAL: + Back and Rib pain SKIN: Negative for lesions, rash, and itching ENDOCRINE: Negative for cold or heat intolerance, polyuria, polydipsia and goiter NEURO: No history of headaches, syncope, paralysis, seizures or tremors MOOD: Negative for depression, anxiety, or suicidal ideation. EXAM: BP 130/90 Pulse 69 Resp 16 Wt 53.1 kg (117 lb) SpO2 99% BMI 20.08 kg/m PHYSICAL EXAM: General Appearance: Well appearing, alert, in no acute distress, well-hydrated, well nourished. Skin: Skin color, texture, turgor normal, no suspicious rashes or lesions. Head: Normocephalic, no masses, lesions, tenderness or abnormalities. Eyes: Anicteric sclera. Extraocular movements are intact. Extremities: No deformities, edema, skin discoloration, clubbing or cyanosis. Good capillary refill. Musculoskeletal: + Tenderness noted along thoracic spine and posterior right ribs, full ROM, no swelling or color change noted. Peripheral Pulses: Normal, Capillary refill <2secs, strong peripheral pulses, Pulses palpable. Neurologic: Gait normal. Sensation grossly intact. ASSESSMENT/PLAN: 1. Muscle strain - ICD9: 848.9, ICD10: T14.8XXA (primary diagnosis) - Symptoms consistent with muscle strain. - Continue supportive care at home. - May use Tylenol 1000 mg every 8 hours as needed. - Switch from flexeril to Zanaflex, less sedating. May use as needed for muscle tension. - May apply heat and ice to the area. Gentle stretching. - TIZANIDINE 4 MG TABLET 2. Left ear pain - ICD9: 388.70, ICD10: H92.02 - Resent RX - ENAXLUYY-HYQSZZERV-XSHGUPLYJ 3.5 MG-10,000 UNIT/ML-1 % EAR DROPS,SUSP Follow-up if no improvement. Discussed treatment plan and patient voices understanding. Patient's questions answered appropriately. Medications and potential side effects were discussed and patient voices understanding. Cher Crabtree APRN.CNP This note was partially generated using [employer] voice recognition system. Note was reviewed for accuracy. There may be minor misspellings or grammar miscues with [employer] voice recognition. documented in this encounterGlen[facility]igh Hospital02-08-2024 Instructions* Patient Instructions* Cher Crabtree APRN.CNP - 11/09/2023 7:53 AM EST May use Tylenol 1000 mg every 8 hours as needed for pain. May use the zanaflex instead of flexeril, as needed for muscle tension. May make you sleepy. Continue supportive care at home May apply heat, ice, and gentle stretching. Follow up if no improvement. documented in this encounterGlenbeigh Hospital02-05-2024 Instructions* Patient Instructions* Daylin Mendenhall APRN.CNS - 11/06/2023 10:20 AM EST 1) Follow up as scheduled 2) Ciprodex drops 2 drops left ear 3 times a day for 3 days only 3) Switch GI consult to Dr. Onel Mayen in [place] documented in this [facility]02-05-2024 History of Present illness Narrative* Daylin Mendenhall APRN.CERTIFIED ORTHOTIST/PEDORTHIST - 11/06/2023 10:00 AM EST This is a 68 year old female who presents today with: Patient presents with: Ear Pain: Left ear pain for 1 day HISTORY OF PRESENT ILLNESS: Terri Villar is a 68 year old female. Patient presents with: Ear Pain: Left ear pain for 1 day Left ear pain since last night. Took Tylenol helped some. No drainage. I don't know if I am getting an ear infection. No fever or chills. Facial pain from allergies sometimes but not today. Some nausea... not new. Has appt. With GI in [place] but they are not on her insurance. PAST MEDICAL HISTORY: PAST MEDICAL HISTORY Diagnosis Date Chronic kidney disease, stage III (moderate) (HCC) DDD (degenerative disc disease), cervical Dr Navjot Folate deficiency Gastritis GERD (gastroesophageal reflux disease) History of COVID-19 07/12/202106/2021 HLD (hyperlipidemia) HTN (hypertension) MTHFR mutation Osteoarthritis Pain, abdominal, RLQ Pericardial effusion RUQ pain Thyroid nodule PAST SURGICAL HISTORY Procedure Laterality Date DELIVERY ONLY 10/02/1984 , low transverse ALLERGIES Amoxicillin, Asa [Salicylates], Codeine, Cortizone-10 [Hydrocortisone], Cymbalta [Duloxetine], Dolobid [Diflunisal], Duricef [Cefadroxil], Dye, Entex La [Phenylephrine-Guaifenesin], Erythromycin, Flu Vac 2015 (65 Up)-Mf59c(Pf), Keflex [Cephalexin], Levaquin [Levofloxacin], Macrobid [Nitrofurantoin Monohyd/M-Cryst], Mobic [Meloxicam], Morphine, Pantoprazole, Penicillins, Prednisolone, Prilosec [Omeprazole], Septra [Sulfamethoxazole- Trimethoprim], Sulfa (Sulfonamide Antibiotics), and Tetracycline MEDICATIONS Current Outpatient Medications Medication Sig famotidine (PEPCID) 20 mg tablet Take 1 tablet by mouth two times a day. cyclobenzaprine (FLEXERIL) 10 mg tablet Take 1 tablet by mouth three times a day as needed. lisinopril (ZESTRIL) 40 mg tablet Take 1 tablet by mouth once daily. atorvastatin (LIPITOR) 10 mg tablet Take 1 tablet by mouth daily at bedtime. For cholesterol. fluticasone (FLONASE) 50 mcg/actuation nasal spray Use 2 Sprays in each nostril once daily. Rinse mouth after use. sucralfate (CARAFATE) 1 gram tablet Take 1 tablet by mouth before meals and at bedtime. folic acid 1 mg tablet Take 1 mg by mouth once daily. Current Facility-Administered Medications Medication Dose Route Frequency perflutren lipid microspheres 1.3 mL in NaCl (PF) 0.9% 10 mL injection (DEFINITY) INTRAVENOUS DIRECTED PRN sodium chloride 0.9 % (flush) 10 mL (BD POSIFLUSH) 10 mL INTRAVENOUS DIRECTED PRN FAMILY HISTORY Problem Relation Age of Onset Breast Cancer Mother 74 Heart Brother Diabetes Paternal Grandmother Social History Tobacco Use Smoking status: Former Smokeless tobacco: Never Vaping Use Vaping Use: Never used Substance Use Topics Alcohol use: No Drug use: No EXAM: BP 122/74 Pulse 68 Temp 36.8 C (98.3 F) (Right Tympanic) Resp 16 Wt 53.1 kg (117 lb) [id number]% BMI 20.08 kg/m PHYSICAL EXAM: General Appearance: Well appearing, alert, in no acute distress, well-hydrated, well nourished.. Head: Normocephalic, no masses, lesions, tenderness or abnormalities. Ears: - canal slightly red, no drainage. Neck: Supple, no adenopathy; thyroid symmetric, normal size, no bruits. Lungs: Lungs clear to auscultation. No wheezing, rhonchi, rales.. Heart: RRR without murmur, gallop, or rubs. No ectopy. ASSESSMENT/PLAN: 1. Nausea - ICD9: 787.02, ICD10: R11.0 (primary diagnosis) Consult placed to switch her current GI consult to Dr. Onel Mayen in [place] per her insurance - CONSULT TO GASTROENTEROLOGY 2. Gallstones - ICD9: 574.20, ICD10: K80.[address] Onel Mayen due to insurance. - CONSULT TO GASTROENTEROLOGY 3. Left ear pain - ICD9: 388.70, ICD10: H92.02 Patient has many allergies. Mostly just itching. Prescription for Ciprodex sent to pharmacy - Cortisporin ear drops ordered for 3 days only Discussed treatment plan and patient voices understanding. Patient's questions answered appropriately. Medications and potential side effects were discussed and patient voices understanding. Return to the office as scheduled or as needed for worsening/no improvement. Daylin Mendenhall APRN.CNS The patient indicates understanding of these issues and agrees with the plan. documented in this encounterGlen[facility] Hospital02-02-2024 Miscellaneous Notes* Telephone Encounter - April Garcia Ma - 11/03/2023 9:08 AM EST See [employer] message. April Garcia Ma documented in this encounterGlen[facility]igh Hospital02-01-2024 Miscellaneous Notes* Telephone Encounter - Daylin Booker LPN - 11/02/2023 2:16 PM EST Patient has been identified by name and date of : Yes, Patient phones for refill(s): Requested Prescriptions Pending Prescriptions Disp Refills famotidine (PEPCID) 20 mg tablet 60 tablet 5 Sig: Take 1 tablet by mouth two times a day. Date of last office visit in primary care: 10/31/2023 Date of next office visit in primary care: Please advise. Thank you. Daylin Booker LPN. documented in this encounterGlenbeigh Hospital12-11-2023 History of Present illness Narrative* Snehal Russell, RT(R) - 09/11/2023 8:00 AM EST Radiology Service Progress Note PATIENT NAME: Terri Villar DATE OF SERVICE: September 11, 2023 TIME: 11:29 AM PATIENT IDENTITY VERIFICATION COMPLETED USING TWO (2) IDENTIFIERS: Name and Date of confirmedby patient verbally. FALL SCREENING: Has the patient had 2 falls in the last year or 1 fall with injury or currently using an Ambulatory Assistive Device (Walker, Cane, Wheelchair, Crutches, etc.)? Yes, Patient High Riskfor Falls What interventions were put in place to prevent falls during this visit? Increased Observations by Caregivers PATIENT GENDER DATA: Female. status: : No status: NO. PATIENT RELEVANT IMPLANT DATA REVIEWED: Not Applicable RADIOLOGY DEPARTMENT: General X-ray: Exam(s) Completed: Rib X-Ray: Bilateral Spine X-Ray(s): Thoracic PERIPHERAL IV DATA: Not applicable SIGNED BY: RT Silvio(R) September 11, 2023 11:29 AM documented in this encounterGlen[facility]12-10-2023 Instructions* Patient Instructions* Kecia Cottrell APRN.CNP - 09/10/2023 9:01 AM EST ASSESSMENT/PLAN: 1. Upper back pain - ICD9: 724.5, ICD10: M54.9 (primary diagnosis) - XR THORACIC LIMITED 2V AP/LAT- return tomorrow for xrays. 2. Rib pain - ICD9: 786.50, ICD10: R07.81 - XR RIBS BILATERAL/CHEST 4V- return tomorrow for xrays. - continue tylenol. 3. Fall, initial encounter - ICD9: E888.9, ICD10: W19.XXXA - as above - Follow-up with your PCP in 3-5 days if symptoms have not improved or sooner if symptoms worsen - Discussed red flags and need for immediate medical evaluation if any occur. - Discussed supportive care treatment with fluids, rest and analgesia. - Discussed expected course of illness Kecia Cottrell APRN.CNP documented in this encounterGlen[facility]12-10-2023 History of Present illness Narrative* Kecia Cottrell APRN.CNP - 09/10/2023 8:56 AM EST Images from the original note were not included. Subjective Back Pain Pertinent negatives include no chest pain, no fever and no abdominal pain. Terri Villar is a 68 year old female who presents with back pain and bilateral posterior rib pain. She was walking through her screen door when it came off the hinges and she fell backwards and hither back on the banister. She rates her pain 9/10. She has been taking tylenol and using a heating pad. She denies any anterior chest pain or shortness of breath or abdominal pain. Review of Systems Constitutional: Negative for chills and fever. Respiratory: Negative for cough and shortness of breath. Cardiovascular: Negative for chest pain. Posterior rib pain. Gastrointestinal: Negative for abdominal pain. Musculoskeletal: Positive for back pain and falls. BP 142/78 Pulse 80 Temp 36.3 C (97.3 F) Resp 20 Wt 53.5 kg (118 lb) SpO2 99% BMI 20.25 kg/m PAST MEDICAL HISTORY Diagnosis Date Chronic kidney disease, stage III (moderate) (HCC) DDD (degenerative disc disease), cervical Dr Knapic Folate deficiency Gastritis GERD (gastroesophageal reflux disease) History of COVID-19 07/12/202106/2021 HLD (hyperlipidemia) HTN (hypertension) MTHFR mutation Osteoarthritis Pain, abdominal, RLQ Pericardial effusion RUQ pain Thyroid nodule PAST SURGICAL HISTORY Procedure Laterality Date DELIVERY ONLY 10/02/1984 , low transverse ALLERGIES Amoxicillin, Asa [Salicylates], Codeine, Cortizone-10 [Hydrocortisone], Cymbalta [Duloxetine], Dolobid [Diflunisal], Duricef [Cefadroxil], Dye, Entex La [Phenylephrine-Guaifenesin], Erythromycin, Flu Vac 2014 (65 Up)-Mf59c(Pf), Keflex [Cephalexin], Levaquin [Levofloxacin], Macrobid [Nitrofurantoin Monohyd/M-Cryst], Mobic [Meloxicam], Morphine, Penicillins, Prednisolone, Prilosec [Omeprazole], Septra [Sulfamethoxazole-Trimethoprim], Sulfa (Sulfonamide Antibiotics), and Tetracycline MEDICATIONS cyclobenzaprine (FLEXERIL) 10 mg tablet^Take 1 tablet by mouth three times a day as needed.^Disp: 30 tablet^Rfl: 0 lisinopril (ZESTRIL) 40 mg tablet^Take 1 tablet by mouth once daily.^Disp: 90 tablet^Rfl: 1 folic acid 1 mg tablet^Take 1 mg by mouth once daily.^Disp: ^Rfl: atorvastatin (LIPITOR) 10 mg tablet^Take 1 tablet by mouth daily at bedtime. For cholesterol.^Disp:90 tablet^Rfl: 3 fluticasone (FLONASE) 50 mcg/actuation nasal spray^Use 2 Sprays in each nostril once daily. Rinse mouth after use.^Disp: 3 Each^Rfl: 3 famotidine (PEPCID) 20 mg tablet^Take 1 tablet by mouth twice daily.^Disp: 60 tablet^Rfl: 5 FAMILY HISTORY Problem Relation Age of Onset Breast Cancer Mother 74 Heart Brother Diabetes Paternal Grandmother Social History Tobacco Use Smoking status: Former Smokeless tobacco: Never Vaping Use Vaping Use: Never used Substance Use Topics Alcohol use: No Drug use: No Objective Physical Exam Vitals and nursing note reviewed. Constitutional: Appearance: Normal appearance. Cardiovascular: Rate and Rhythm: Normal rate and regular rhythm. Heart sounds: Normal heart sounds. Pulmonary: Effort: Pulmonary effort is normal. No respiratory distress. Breath sounds: Normal breath sounds. No wheezing or rales. Musculoskeletal: Thoracic back: Tenderness present. No swelling, edema, deformity or bony tenderness. Normal range of motion. Back: Skin: General: Skin is warm and dry. Findings: No bruising, erythema or rash. Neurological: Mental Status: She is alert. ASSESSMENT/PLAN: 1. Upper back pain - ICD9: 724.5, ICD10: M54.9 (primary diagnosis) - XR THORACIC LIMITED 2V AP/LAT- return tomorrow for xrays. 2. Rib pain - ICD9: 786.50, ICD10: R07.81 - XR RIBS BILATERAL/CHEST 4V- return tomorrow for xrays. - continue tylenol. 3. Fall, initial encounter - ICD9: E888.9, ICD10: W19.XXXA - as above - Follow-up with your PCP in 3-5 days if symptoms have not improved or sooner if symptoms worsen - Discussed red flags and need for immediate medical evaluation if any occur. - Discussed supportive care treatment with fluids, rest and analgesia. - Discussed expected course of illness Kecia Cottrell APRN.WASH WORKER documented in this encounterGlen[facility]igh [facility]12-07-2023 History of Present illness Narrative* Lilliam Delgado, RADHA.WASH WORKER - 09/07/2023 8:11 AM EST Chief Complaint Patient presents with: upper back pain: States hurt back yesterday helping landlord e an air conditioner HPI Terri Villar is a 68 year old female who presents here today for Above Complaints. Terri is an established patient of Dr. Annamarie MD. Concerns today.. Upper back pain --- Helped landlord lift a heavy air conditioner yesterday. Thinks she pulled a muscle in back. Reportstenderness to touch and pain to L side of upper back/neck area. No midline/spine pain. Full ROM. Has not tried to take anything for this yet. Needs to schedule her yearly mammogram. Last completed in October 2022. No other concerns or complaints. Past medical history, appointments, medications, allergies reviewed. Previous Medical History PAST MEDICAL HISTORY Diagnosis Date Chronic kidney disease, stage III (moderate) (HCC) DDD (degenerative disc disease), cervical Dr Morfin History of COVID-19 07/12/202106/2021 MTHFR mutation Osteoarthritis Previous Surgical History PAST SURGICAL HISTORY Procedure Laterality Date DELIVERY ONLY 10/02/1984 , low transverse Family History FAMILY HISTORY Problem Relation Age of Onset Breast Cancer Mother 74 Heart Brother Diabetes Paternal Grandmother Patient Allergies ALLERGIES Allergen Reactions Amoxicillin Itching Asa [Salicylates] Itching Codeine Itching Cortizone-10 [[place]* Itching Cymbalta [Duloxetin* Intolerance One pill: bruning all over Dolobid [Diflunisal] Itching Duricef [Cefadroxil] Itching Dye Shortness of Breath Ct dye. Including rash Entex La [Phenyleph* Itching Erythromycin Itching Flu Vac 2014 (65 Up* Shortness of Breath Keflex [Cephalexin] Itching Levaquin [Levofloxa* Other: See Comments itching Macrobid [Nitrofura* Other: See Comments Fast heart rate Mobic [Meloxicam] Itching Morphine Itching Penicillins Hives Prednisolone Other: See Comments Elevated blood pressure. Has done well with medrol dose april. Prilosec [Omeprazol* Itching Septra [Sulfamethox* Hives Sulfa (Sulfonamide * Hives Tetracycline Hives Can take doxycycline Current Medications Current Outpatient Medications on File Prior to Visit Medication Sig lisinopril (ZESTRIL) 40 mg tablet Take 1 tablet by mouth once daily. folic acid 1 mg tablet Take 1 mg by mouth once daily. atorvastatin (LIPITOR) 10 mg tablet Take 1 tablet by mouth daily at bedtime. For cholesterol. fluticasone (FLONASE) 50 mcg/actuation nasal spray Use 2 Sprays in each nostril once daily. Rinse mouth after use. famotidine (PEPCID) 20 mg tablet Take 1 tablet by mouth twice daily. ciprofloxacin HCl (CIPRO) 250 mg tablet Take 1 tablet by mouth two times a day for 3 days. Current Facility-Administered Medications on File Prior to Visit Medication perflutren lipid microspheres 1.3 mL in NaCl (PF) 0.9% 10 mL injection (DEFINITY) sodium chloride 0.9 % (flush) 10 mL (BD POSIFLUSH) Social History Social History Tobacco Use Smoking status: Former Smokeless tobacco: Never Vaping Use Vaping Use: Never used Substance Use Topics Alcohol use: No Drug use: No REVIEW OF SYSTEMS: as above Reviewed relevant PMHx, PSHx, Social Hx, current medications and allergies. Review of Symptoms REVIEW OF SYSTEMS See HPI. EXAM: BP 120/72 (BP Site: Left Arm, BP Position: Sitting, BP Cuff Size: Regular Adult) Pulse 68 Resp 12 Wt 53.9 kg (118 lb 12.8 oz) BMI 20.39 kg/m General Appearance: Well appearing, alert, in no acute distress, well-hydrated, well nourished.. Skin: Skin color, texture, turgor normal, no suspicious rashes or lesions. Neck: Supple, no adenopathy; thyroid symmetric, normal size, no bruits. Back:no pain to palpation of vertebrae, good flexion and extension, good range of motion, motor andsensory appear to be normal. + muscle tenderness to L trapezius muscle. Extremities: No deformities, edema, skin discoloration, clubbing or cyanosis. Good capillary refill. . Musculoskeletal: Positive findings: + muscle tenderness to L trapezius muscle. Health Maintenance List Colorectal Cancer Screening due on 09/22/2021 BP Controlled (<130/80) due on 09/07/2023 Mammogram Screening due on 11/23/2023 Shingrix Vaccine(1 of 2) due on 09/07/2023 Pneumococcal Vaccine: 65+(1 - PCV) due on 09/07/2023 RSV Vaccine(1 - 1-dose 60+ series) due on 08/21/2024 Covid-19 Vaccine(2 - 2022- season) due on 08/21/2024 Serum Creatinine due on 09/01/2024 Hemoglobin/Hematocrit due on 09/01/2024 Annual PCP Team Chronic Disease Visit due on 09/04/2024 Diabetes Screening due on 09/01/2026 Lipid Screening due on 09/01/2028 DTaP,Tdap,Td Vaccine(2 - Td or Tdap) due on 10/13/2031 Bone Density Screening Completed Advance Directive Discussion Completed Depression Assessment Completed Hepatitis C Screening Completed Influenza Vaccine Discontinued ASSESSMENT/PLAN: 1. Upper back pain - ICD9: 724.5, ICD10: M54.9 (primary diagnosis) Mechanical back pain. Likely muscle strain from lifting heavy air conditioner yesterday. - Muscle relaxant- see orders 2. Muscle strain - ICD9: 848.9, ICD10: T14.8XXA To L trapezius. Take flexeril as needed TID -- prescribed this prior and she has at home. Will refill. OTC NSAID if needed. 3. Screening mammogram for breast cancer - ICD9: V76.12, ICD10: Z12.31 - TROY SCREENING RTO as needed. Prescription instructions reviewed with patient as applicable. Potential red flag symptoms discussed with the patient. Reviewed appropriate action plan to take if red flag symptoms occur. Patient agreeable to treatment plan. Lliliam Arellano APRN.WASH WORKER [address] [place] [address] documented in this encounterGlen[facility]12-04-2023 History of Present illness Narrative* Rachael Hammond APRN.CNP - 09/04/2023 11:34 AM EST urineChief Complaint Patient presents with: Abdominal Pain: RLQ, nausea x yesterday HPI Terri Villar is a 68 year old female who presents here today for Above Complaints. Today: Some intermittent RLQ pain for several years-was told this is her gallstones. Is supposed to schedule EGD and colonoscopy. Is on GERD medications. Currently having some nausea. Pepto Bismal has been helpful. Zofran doesn't help-gives her a bad headache. Bowel movements are normal. Appetite is good.Wondering if she is getting the start of the stomach flu her has had for the last week. No fevers. No bloating. No urinary incontinence, foul odor, pain. Past medical history, appointments, medications, allergies reviewed. Previous Medical History PAST MEDICAL HISTORY Diagnosis Date Chronic kidney disease, stage III (moderate) (HCC) DDD (degenerative disc disease), cervical Dr Morfin History of COVID-19 07/12/202106/2021 MTHFR mutation Osteoarthritis Previous Surgical History PAST SURGICAL HISTORY Procedure Laterality Date DELIVERY ONLY 10/02/1984 , low transverse Family History FAMILY HISTORY Problem Relation Age of Onset Breast Cancer Mother 74 Heart Brother Diabetes Paternal Grandmother Patient Allergies ALLERGIES Allergen Reactions Amoxicillin Itching Asa [Salicylates] Itching Codeine Itching Cortizone-10 [[place]* Itching Cymbalta [Duloxetin* Intolerance One pill: bruning all over Dolobid [Diflunisal] Itching Duricef [Cefadroxil] Itching Dye Shortness of Breath Ct dye. Including rash Entex La [Phenyleph* Itching Erythromycin Itching Flu Vac 2014 (65 Up* Shortness of Breath Keflex [Cephalexin] Itching Levaquin [Levofloxa* Other: See Comments itching Macrobid [Nitrofura* Other: See Comments Fast heart rate Mobic [Meloxicam] Itching Morphine Itching Penicillins Hives Prednisolone Other: See Comments Elevated blood pressure. Has done well with medrol dose april. Prilosec [Omeprazol* Itching Septra [Sulfamethox* Hives Sulfa (Sulfonamide * Hives Tetracycline Hives Can take doxycycline Current Medications Current Outpatient Medications on File Prior to Visit Medication Sig lisinopril (ZESTRIL) 40 mg tablet Take 1 tablet by mouth once daily. folic acid 1 mg tablet Take 1 mg by mouth once daily. atorvastatin (LIPITOR) 10 mg tablet Take 1 tablet by mouth daily at bedtime. For cholesterol. fluticasone (FLONASE) 50 mcg/actuation nasal spray Use 2 Sprays in each nostril once daily. Rinse mouth after use. cyclobenzaprine (FLEXERIL) 10 mg tablet Take 1 tablet by mouth three times daily as needed. famotidine (PEPCID) 20 mg tablet Take 1 tablet by mouth twice daily. guaiFENesin (MUCINEX) 600 mg 12 hr tablet Take 2 tablets by mouth two times a day for 7 days. (Patient not taking: Reported on 09/04/2023) Current Facility-Administered Medications on File Prior to Visit Medication perflutren lipid microspheres 1.3 mL in NaCl (PF) 0.9% 10 mL injection (DEFINITY) sodium chloride 0.9 % (flush) 10 mL (BD POSIFLUSH) Social History Social History Tobacco Use Smoking status: Former Smokeless tobacco: Never Vaping Use Vaping Use: Never used Substance Use Topics Alcohol use: No Drug use: No Review of Symptoms REVIEW OF SYSTEMS See HPI, otherwise negative EXAM: BP 130/82 (BP Site: Left Arm, BP Position: Sitting, BP Cuff Size: Regular Adult) Pulse 92 Temp 36.4 C (97.5 F) (Temporal) Resp 16 Wt 54 kg (119 lb) SpO2 98% BMI 20.43 kg/m General Appearance: Well appearing, alert, in no acute distress, well-hydrated, well nourished. andThin. Lungs: Lungs clear to auscultation. No wheezing, rhonchi, rales.. Heart: RRR without murmur, gallop, or rubs. No ectopy. Abdomen: Normal abdominal exam, Abdomen soft, non-tender. Bowel sounds normal. No masses, organomegaly. Psychiatric: pleasant, cooperative. Health Maintenance List Colorectal Cancer Screening due on 09/22/2021 Mammogram Screening due on 11/23/2023 Shingrix Vaccine(1 of 2) due on 09/07/2023 Pneumococcal Vaccine: 65+(1 - PCV) due on 09/07/2023 RSV Vaccine(1 - 1-dose 60+ series) due on 08/21/2024 Covid-19 Vaccine(2 - 2022- season) due on 08/21/2024 BP Controlled (<130/80) due on 09/07/2023 Annual PCP Team Chronic Disease Visit due on 09/01/2024 Serum Creatinine due on 09/01/2024 Hemoglobin/Hematocrit due on 09/01/2024 Diabetes Screening due on 09/01/2026 Lipid Screening due on 09/01/2028 DTaP,Tdap,Td Vaccine(2 - Td or Tdap) due on 10/13/2031 Bone Density Screening Completed Advance Directive Discussion Completed Depression Assessment Completed Hepatitis C Screening Completed Influenza Vaccine Discontinued Data reviewed Previous records, office notes ASSESSMENT/PLAN: 1. Colicky RLQ abdominal pain - ICD9: 789.03, ICD10: R10.31 (primary diagnosis) Chronic concern that has been worked up extensively. Denies pain today, assessment negative. Does not appear ill. Discussed possible red flag s/s. - UA DIP, URINE (POC) - CIPROFLOXACIN 250 MG TABLET - URINE CULTURE 2. Urine leukocytes - ICD9: 791.7, ICD10: R82.998 - CIPROFLOXACIN 250 MG TABLET - URINE CULTURE Rachael Hammond APRN.WILFREDO documented in this encounterG[facility]12-04-2023 Miscellaneous Notes* Telephone Encounter - April Garcia Ma - 09/04/2023 10:21 AM EST Pt notified. April Garcia Ma * Telephone Encounter - Lilliam Delgado APRN.CNP - 09/04/2023 7:04 AM EST Please call patient and let her know that COVID/flu/RSV were all negative. RTO if no improvement by the end of the week. Thank you, Lilliam Delgado APRN.WASH WORKER documented in this encounterGlen[facility]12-02-2023 Miscellaneous Notes* Telephone Encounter - Sophie Arthur RN - 09/02/2023 10:42 AM EST Phoned patient and given provider's message below with verbalized understanding. Patient agreeable. * Telephone Encounter - Bridget De Luna MD - 09/02/2023 10:19 AM EST Stay on meds. Recheck labs in one month * Telephone Encounter - Alicia Jackson RN - 09/02/2023 9:59 AM EST Spoke with patient. Given message from provider's office. Patient verbalizes understanding. Patientstates she didn't take Lipitor for a few days because muscle spasms but she resumed it today. She says she has not missed any doses of Folic Acid. Alicia Jackson RN * Telephone Encounter - Lizzeth Decker Ma - 09/02/2023 9:48 AM EST Left message for patient to return call. Lizzeth Decker Ma * Telephone Encounter - Bridget De Luna MD - 09/02/2023 8:34 AM EST Cholesterol is up. Looks like ? Missing some lipitor doses? Her folate is better but still low. Has she missed any folic acid doses? Let me know. documented in this encounterGlen[facility]12-01-2023 History of Present illness Narrative* Lilliam Delgado APRN.WASH WORKER - 09/01/2023 9:16 AM EST Chief Complaint Patient presents with: sinus: Started 2 days ago very congested only in nose, no cough, body aches or chills or fever. Getting lots of mucus and bloody and thick and white henderson terrible HPI Terri Villar is a 68 year old female who presents here today for Above Complaints. Terri is an established patient of Dr. Annamarie MD. She is a new patient to me today. Concerns today.. Sinus pressure/tenderness to bilateral cheeks since yesterday. Also reports sinus type headaches x 2 days. Son with same symptoms that started a few days ago. Denies any congestion, cough, wheezing, SOB, or sore throat. Some relief with flonase and tylenol OTC. Tested at home for COVID this morningand was negative. No other concerns or complaints. Past medical history, appointments, medications, allergies reviewed. Previous Medical History PAST MEDICAL HISTORY Diagnosis Date Chronic kidney disease, stage III (moderate) (HCC) DDD (degenerative disc disease), cervical Dr Morfin History of COVID-19 07/12/202106/2021 MTHFR mutation Osteoarthritis Previous Surgical History PAST SURGICAL HISTORY Procedure Laterality Date DELIVERY ONLY 10/02/1984 , low transverse Family History FAMILY HISTORY Problem Relation Age of Onset Breast Cancer Mother 74 Heart Brother Diabetes Paternal Grandmother Patient Allergies ALLERGIES Allergen Reactions Amoxicillin Itching Asa [Salicylates] Itching Codeine Itching Cortizone-10 [[place]* Itching Cymbalta [Duloxetin* Intolerance One pill: bruning all over Dolobid [Diflunisal] Itching Duricef [Cefadroxil] Itching Dye Shortness of Breath Ct dye. Including rash Entex La [Phenyleph* Itching Erythromycin Itching Flu Vac 2014 (65 Up* Shortness of Breath Keflex [Cephalexin] Itching Levaquin [Levofloxa* Other: See Comments itching Macrobid [Nitrofura* Other: See Comments Fast heart rate Mobic [Meloxicam] Itching Morphine Itching Penicillins Hives Prednisolone Other: See Comments Elevated blood pressure. Has done well with medrol dose april. Prilosec [Omeprazol* Itching Septra [Sulfamethox* Hives Sulfa (Sulfonamide * Hives Tetracycline Hives Can take doxycycline Current Medications Current Outpatient Medications on File Prior to Visit Medication Sig lisinopril (ZESTRIL) 40 mg tablet Take 1 tablet by mouth once daily. folic acid 1 mg tablet Take 1 mg by mouth once daily. atorvastatin (LIPITOR) 10 mg tablet Take 1 tablet by mouth daily at bedtime. For cholesterol. fluticasone (FLONASE) 50 mcg/actuation nasal spray Use 2 Sprays in each nostril once daily. Rinse mouth after use. cyclobenzaprine (FLEXERIL) 10 mg tablet Take 1 tablet by mouth three times daily as needed. famotidine (PEPCID) 20 mg tablet Take 1 tablet by mouth twice daily. Current Facility-Administered Medications on File Prior to Visit Medication perflutren lipid microspheres 1.3 mL in NaCl (PF) 0.9% 10 mL injection (DEFINITY) sodium chloride 0.9 % (flush) 10 mL (BD POSIFLUSH) Social History Social History Tobacco Use Smoking status: Former Smokeless tobacco: Never Vaping Use Vaping Use: Never used Substance Use Topics Alcohol use: No Drug use: No REVIEW OF SYSTEMS: as above Reviewed relevant PMHx, PSHx, Social Hx, current medications and allergies. Review of Symptoms REVIEW OF SYSTEMS See HPI. EXAM: BP 138/72 (BP Site: Left Arm, BP Position: Sitting, BP Cuff Size: Regular Adult) Pulse 74 Temp 36.7 C (98.1 F) Wt 52.9 kg (116 lb 9.6 oz) SpO2 100% BMI 20.01 kg/m General Appearance: Well appearing, alert, in no acute distress, well-hydrated, well nourished.. Skin: Skin color, texture, turgor normal, no suspicious rashes or lesions. Head: Normocephalic, no masses, lesions, tenderness or abnormalities. Ears: External ears normal, canals clear. Nose/Sinuses: Nares normal, septum midline, mucosa normal, no drainage, Positive findings: + sinus tenderness to bilateral maxillary sinuses. Oropharynx: Lips, mucosa, and tongue normal, teeth and gums normal, oropharynx normal. Lungs: Lungs clear to auscultation. No wheezing, rhonchi, rales.. Heart: RRR without murmur, gallop, or rubs. No ectopy. Health Maintenance List Colorectal Cancer Screening due on 09/22/2021 Mammogram Screening due on 11/23/2023 Shingrix Vaccine(1 of 2) due on 09/07/2023 Pneumococcal Vaccine: 65+(1 - PCV) due on 09/07/2023 RSV Vaccine(1 - 1-dose 60+ series) due on 08/21/2024 Covid-19 Vaccine(2 - 2022- season) due on 08/21/2024 BP Controlled (<130/80) due on 09/07/2023 Serum Creatinine due on 03/18/2024 Hemoglobin/Hematocrit due on 03/18/2024 Annual PCP Team Chronic Disease Visit due on 09/01/2024 Diabetes Screening due on 03/18/2026 Lipid Screening due on 01/19/2028 DTaP,Tdap,Td Vaccine(2 - Td or Tdap) due on 10/13/2031 Bone Density Screening Completed Advance Directive Discussion Completed Depression Assessment Completed Hepatitis C Screening Completed Influenza Vaccine Discontinued ASSESSMENT/PLAN: 1. Sinus pressure - ICD9: 478.19, ICD10: J34.89 Suspect viral at this time d/t duration. COVID/flu/rsv swab in office today. Continue flonase. Trial mucinex or claritin OTC If no relief within 7 days, reach out for possible need for antibiotic. - GUAIFENESIN ER 600 MG TABLET, EXTENDED RELEASE 12 HR - COVID & INFLUENZA A/B & RSV NAAT, ROUTINE RTO as needed. Prescription instructions reviewed with patient as applicable. Potential red flag symptoms discussed with the patient. Reviewed appropriate action plan to take if red flag symptoms occur. Patient agreeable to treatment plan. Lilliam Arellano APRN.WILFREDO [address] [place] [address] documented in this encounterGlen[facility]11-20-2023 History of Past illness Narrative* Problem Noted Date Diagnosed Date Resolved Date Chest wall pain 08/21/2023 08/21/2023 10/25/2023 Fall 08/21/2023 08/21/2023 10/25/2023 Pain, unspecified 08/18/2023 09/28/2023 10/25/2023 Strain of thoracic back region 03/26/2023 08/21/2023 10/25/2023 Protein-calorie malnutrition , unspecified severity 01/26/2023 01/30/2023 Secondary renal hyperparathyroidism 01/26/2023 01/30/2023 Sinus congestion 10/22/2022 01/30/2023 Contusion of left hip 09/16/2022 08/21/20232023 Contusion of left shoulder 09/16/2022 08/21/2023 0 10/25/2023 Acute cystitis 01/03/2022 08/21/2023 10/25/2023 Abdominal pain 10/13/2021 08/21/2023 10/25/2023 History of COVID-19 07/12/2021 01/31/20 23 Overview: 06/2021 Routine General Medical Exam ination at a Health Care Facility 11/10/2008 05/15/2014 documented as of this encounter (statuses as of 11/03/2023) [facility] History of Past illness Narrative* Problem Noted Date Diagnosed Date Resolved Date Chest wall pain 08/21/2023 08/21/2023 10/25/2023 Fall 08/21/2023 08/21/2023 10/25/2023 Pain, unspecified 08/18/2023 09/28/2023 10/25/2023 Strain of thoracic back region 03/26/2023 08/21/2023 10/25/2023 Protein-calorie malnutrition , unspecified severity 01/26/2023 01/30/2023 Secondary renal hyperparathyroidism 01/26/2023 01/30/2023 Sinus congestion 10/22/2022 01/30/2023 Contusion of left hip 09/16/2022 08/21/20232023 Contusion of left shoulder 09/16/2022 08/21/2023 0 10/25/2023 Acute cystitis 01/03/2022 08/21/2023 10/25/2023 Abdominal pain 10/13/2021 08/21/2023 10/25/2023 History of COVID-19 07/12/2021 01/31/20 23 Overview: 06/2021 Routine General Medical Exam ination at a Health Care Facility 11/10/2008 05/15/2014 documented as of this encounter (statuses as of 11/03/2023) [facility]-20-2023 History of Past illness Narrative* Problem Noted Date Diagnosed Date Resolved Date Chest wall pain 08/21/2023 08/21/2023 10/25/2023 Fall 08/21/2023 08/21/2023 10/25/2023 Pain, unspecified 08/18/2023 09/28/2023 10/25/2023 Strain of thoracic back region 03/26/2023 08/21/2023 10/25/2023 Protein-calorie malnutrition , unspecified severity 01/26/2023 01/30/2023 Secondary renal hyperparathyroidism 01/26/2023 01/30/2023 Sinus congestion 10/22/2022 01/30/2023 Contusion of left hip 09/16/2022 08/21/20232023 Contusion of left shoulder 09/16/2022 08/21/2023 0 10/25/2023 Acute cystitis 01/03/2022 08/21/2023 10/25/2023 Abdominal pain 10/13/2021 08/21/2023 10/25/2023 History of COVID-19 07/12/2021 01/31/20 Overview: 06/2021 Routine General Medical Exam ination at a Health Care Facility 11/10/2008 05/15/2014 documented as of this encounter (statuses as of 11/06/2023) [facility]-20[facility] History of Past illness Narrative* Problem Noted Date Diagnosed Date Resolved Date Chest wall pain 08/21/2023 08/21/2023 10/25/2023 Fall 08/21/2023 08/21/2023 10/25/2023 Pain, unspecified 08/18/2023 09/28/2023 10/25/2023 Strain of thoracic back region 03/26/2023 08/21/2023 10/25/2023 Protein-calorie malnutrition , unspecified severity 01/26/2023 01/30/2023 Secondary renal hyperparathyroidism 01/26/2023 01/30/2023 Sinus congestion 10/22/2022 01/30/2023 Contusion of left hip 09/16/2022 08/21/20232023 Contusion of left shoulder 09/16/2022 08/21/2023 0 10/25/2023 Acute cystitis 01/03/2022 08/21/2023 10/25/2023 Abdominal pain 10/13/2021 08/21/2023 10/25/2023 History of COVID-19 07/12/2021 01/31/20 23 Overview: 06/2021 Routine General Medical Exam ination at a Health Care Facility 11/10/2008 05/15/2014 documented as of this encounter (statuses as of 11/09/2023) [facility] History of Past illness Narrative* Problem Noted Date Diagnosed Date Resolved Date Chest wall pain 08/21/2023 08/21/2023 10/25/2023 Fall 08/21/2023 08/21/2023 10/25/2023 Pain, unspecified 08/18/2023 09/28/2023 10/25/2023 Strain of thoracic back region 03/26/2023 08/21/2023 10/25/2023 Protein-calorie malnutrition , unspecified severity 01/26/2023 01/30/2023 Secondary renal hyperparathyroidism 01/26/2023 01/30/2023 Sinus congestion 10/22/2022 01/30/2023 Contusion of left hip 09/16/2022 08/21/20232023 Contusion of left shoulder 09/16/2022 08/21/2023 0 10/25/2023 Acute cystitis 01/03/2022 08/21/2023 10/25/2023 Abdominal pain 10/13/2021 08/21/2023 10/25/2023 History of COVID-19 07/12/2021 01/31/20 23 Overview: 06/2021 Routine General Medical Exam ination at a Health Care Facility 11/10/2008 05/15/2014 documented as of this encounter (statuses as of 11/15/2023) [facility] History of Past illness Narrative* Problem Noted Date Diagnosed Date Resolved Date Chest wall pain 08/21/2023 08/21/2023 10/25/2023 Fall 08/21/2023 08/21/2023 10/25/2023 Pain, unspecified 08/18/2023 09/28/2023 10/25/2023 Strain of thoracic back region 03/26/2023 08/21/2023 10/25/2023 Protein-calorie malnutrition , unspecified severity 01/26/2023 01/30/2023 Secondary renal hyperparathyroidism 01/26/2023 01/30/2023 Sinus congestion 10/22/2022 01/30/2023 Contusion of left hip 09/16/2022 08/21/20232023 Contusion of left shoulder 09/16/2022 08/21/2023 0 10/25/2023 Acute cystitis 01/03/2022 08/21/2023 10/25/2023 Abdominal pain 10/13/2021 08/21/2023 10/25/2023 History of COVID-19 07/12/2021 01/31/20 Overview: 06/2021 Routine General Medical Exam ination at a [facility] 11/10/2008 05/15/2014 documented as of this encounter (statuses as of 11/20/2023) [facility] History of Past illness Narrative* Problem Noted Date Diagnosed Date Resolved Date Chest wall pain 08/21/2023 08/21/2023 10/25/2023 Fall 08/21/2023 08/21/2023 10/25/2023 Pain, unspecified 08/18/2023 09/28/2023 10/25/2023 Strain of thoracic back region 03/26/2023 08/21/2023 10/25/2023 Protein-calorie malnutrition , unspecified severity 01/26/2023 01/30/2023 Secondary renal hyperparathyroidism 01/26/2023 01/30/2023 Sinus congestion 10/22/2022 01/30/2023 Contusion of left hip 09/16/2022 08/21/20232023 Contusion of left shoulder 09/16/2022 08/21/2023 0 10/25/2023 Acute cystitis 01/03/2022 08/21/2023 10/25/2023 Abdominal pain 10/13/2021 08/21/2023 10/25/2023 History of COVID-19 07/12/2021 01/31/20 23 Overview: 06/2021 Routine General Medical Exam ination at a Health Care Facility 11/10/2008 05/15/2014 documented as of this encounter (statuses as of 11/24/2023) [facility] History of Past illness Narrative* Problem Noted Date Diagnosed Date Resolved Date Chest wall pain 08/21/2023 08/21/2023 10/25/2023 Fall 08/21/2023 08/21/2023 10/25/2023 Pain, unspecified 08/18/2023 09/28/2023 10/25/2023 Strain of thoracic back region 03/26/2023 08/21/2023 10/25/2023 Protein-calorie malnutrition , unspecified severity 01/26/2023 01/30/2023 Secondary renal hyperparathyroidism 01/26/2023 01/30/2023 Sinus congestion 10/22/2022 01/30/2023 Contusion of left hip 09/16/2022 08/21/20232023 Contusion of left shoulder 09/16/2022 08/21/2023 0 10/25/2023 Acute cystitis 01/03/2022 08/21/2023 10/25/2023 Abdominal pain 10/13/2021 08/21/2023 10/25/2023 History of COVID-19 07/12/2021 01/31/20 23 Overview: 06/2021 Routine General Medical Exam ination at a Health Care Facility 11/10/2008 05/15/2014 documented as of this encounter (statuses as of 12/04/2023) [facility] History of Past illness Narrative* Problem Noted Date Diagnosed Date Resolved Date Chest wall pain 08/21/2023 08/21/2023 10/25/2023 Fall 08/21/2023 08/21/2023 10/25/2023 Pain, unspecified 08/18/2023 09/28/2023 10/25/2023 Strain of thoracic back region 03/26/2023 08/21/2023 10/25/2023 Protein-calorie malnutrition , unspecified severity 01/26/2023 01/30/2023 Secondary renal hyperparathyroidism 01/26/2023 01/30/2023 Sinus congestion 10/22/2022 01/30/2023 Contusion of left hip 09/16/2022 08/21/20232023 Contusion of left shoulder 09/16/2022 08/21/2023 0 10/25/2023 Acute cystitis 01/03/2022 08/21/2023 10/25/2023 Abdominal pain 10/13/2021 08/21/2023 10/25/2023 History of COVID-19 07/12/2021 01/31/20 23 Overview: 06/2021 Routine General Medical Exam ination at a [facility] 11/10/2008 05/15/2014 documented as of this encounter (statuses as of 12/05/2023) [facility] History of Past illness Narrative* Problem Noted Date Diagnosed Date Resolved Date Chest wall pain 08/21/2023 08/21/2023 10/25/2023 Fall 08/21/2023 08/21/2023 10/25/2023 Pain, unspecified 08/18/2023 09/28/2023 10/25/2023 Strain of thoracic back region 03/26/2023 08/21/2023 10/25/2023 Protein-calorie malnutrition , unspecified severity 01/26/2023 01/30/2023 Secondary renal hyperparathyroidism 01/26/2023 01/30/2023 Sinus congestion 10/22/2022 01/30/2023 Contusion of left hip 09/16/2022 08/21/20232023 Contusion of left shoulder 09/16/2022 08/21/2023 0 10/25/2023 Acute cystitis 01/03/2022 08/21/2023 10/25/2023 Abdominal pain 10/13/2021 08/21/2023 10/25/2023 History of COVID-19 07/12/2021 01/31/20 23 Overview: 06/2021 Routine General Medical Exam ination at a Health Care Facility 11/10/2008 05/15/2014 documented as of this encounter (statuses as of 12/07/2023) [facility] History of Past illness Narrative* Problem Noted Date Diagnosed Date Resolved Date Chest wall pain 08/21/2023 08/21/2023 10/25/2023 Fall 08/21/2023 08/21/2023 10/25/2023 Pain, unspecified 08/18/2023 09/28/2023 10/25/2023 Strain of thoracic back region 03/26/2023 08/21/2023 10/25/2023 Protein-calorie malnutrition , unspecified severity 01/26/2023 01/30/2023 Secondary renal hyperparathyroidism 01/26/2023 01/30/2023 Sinus congestion 10/22/2022 01/30/2023 Contusion of left hip 09/16/2022 08/21/20232023 Contusion of left shoulder 09/16/2022 08/21/2023 0 10/25/2023 Acute cystitis 01/03/2022 08/21/2023 10/25/2023 Abdominal pain 10/13/2021 08/21/2023 10/25/2023 History of COVID-19 07/12/2021 01/31/20 Overview: 06/2021 Routine General Medical Exam ination at a [facility] 11/10/2008 05/15/2014 documented as of this encounter (statuses as of 12/11/2023) [facility] History of Past illness Narrative* Problem Noted Date Diagnosed Date Resolved Date Chest wall pain 08/21/2023 08/21/2023 10/25/2023 Fall 08/21/2023 08/21/2023 10/25/2023 Pain, unspecified 08/18/2023 09/28/2023 10/25/2023 Strain of thoracic back region 03/26/2023 08/21/2023 10/25/2023 Protein-calorie malnutrition , unspecified severity 01/26/2023 01/30/2023 Secondary renal hyperparathyroidism 01/26/2023 01/30/2023 Sinus congestion 10/22/2022 01/30/2023 Contusion of left hip 09/16/2022 08/21/20232023 Contusion of left shoulder 09/16/2022 08/21/2023 0 10/25/2023 Acute cystitis 01/03/2022 08/21/2023 10/25/2023 Abdominal pain 10/13/2021 08/21/2023 10/25/2023 History of COVID-19 07/12/2021 01/31/20 23 Overview: 06/2021 Routine General Medical Exam ination at a Health Care Facility 11/10/2008 05/15/2014 documented as of this encounter (statuses as of 12/13/2023) [facility] History of Past illness Narrative* Problem Noted Date Diagnosed Date Resolved Date Chest wall pain 08/21/2023 08/21/2023 10/25/2023 Fall 08/21/2023 08/21/2023 10/25/2023 Pain, unspecified 08/18/2023 09/28/2023 10/25/2023 Strain of thoracic back region 03/26/2023 08/21/2023 10/25/2023 Protein-calorie malnutrition , unspecified severity 01/26/2023 01/30/2023 Secondary renal hyperparathyroidism 01/26/2023 01/30/2023 Sinus congestion 10/22/2022 01/30/2023 Contusion of left hip 09/16/2022 08/21/20232023 Contusion of left shoulder 09/16/2022 08/21/2023 0 10/25/2023 Acute cystitis 01/03/2022 08/21/2023 10/25/2023 Abdominal pain 10/13/2021 08/21/2023 10/25/2023 History of COVID-19 07/12/2021 01/31/20 23 Overview: 06/2021 Routine General Medical Exam ination at a Health Care Facility 11/10/2008 05/15/2014 documented as of this encounter (statuses as of 12/14/2023) [facility] History of Past illness Narrative* Problem Noted Date Diagnosed Date Resolved Date Chest wall pain 08/21/2023 08/21/2023 10/25/2023 Fall 08/21/2023 08/21/2023 10/25/2023 Pain, unspecified 08/18/2023 09/28/2023 10/25/2023 Strain of thoracic back region 03/26/2023 08/21/2023 10/25/2023 Protein-calorie malnutrition , unspecified severity 01/26/2023 01/30/2023 Secondary renal hyperparathyroidism 01/26/2023 01/30/2023 Sinus congestion 10/22/2022 01/30/2023 Contusion of left hip 09/16/2022 08/21/20232023 Contusion of left shoulder 09/16/2022 08/21/2023 0 10/25/2023 Acute cystitis 01/03/2022 08/21/2023 10/25/2023 Abdominal pain 10/13/2021 08/21/2023 10/25/2023 History of COVID-19 07/12/2021 01/31/20 Overview: 06/2021 Routine General Medical Exam ination at a Health Care Facility 11/10/2008 05/15/2014 documented as of this encounter (statuses as of 12/15/2023) [facility] History of Past illness Narrative* Problem Noted Date Diagnosed Date Resolved Date Chest wall pain 08/21/2023 08/21/2023 10/25/2023 Fall 08/21/2023 08/21/2023 10/25/2023 Pain, unspecified 08/18/2023 09/28/2023 10/25/2023 Strain of thoracic back region 03/26/2023 08/21/2023 10/25/2023 Protein-calorie malnutrition , unspecified severity 01/26/2023 01/30/2023 Secondary renal hyperparathyroidism 01/26/2023 01/30/2023 Sinus congestion 10/22/2022 01/30/2023 Contusion of left hip 09/16/2022 08/21/20232023 Contusion of left shoulder 09/16/2022 08/21/2023 0 10/25/2023 Acute cystitis 01/03/2022 08/21/2023 10/25/2023 Abdominal pain 10/13/2021 08/21/2023 10/25/2023 History of COVID-19 07/12/2021 01/31/20 23 Overview: 06/2021 Routine General Medical Exam ination at a Health Care Facility 11/10/2008 05/15/2014 documented as of this encounter (statuses as of 12/26/2023) [facility] History of Past illness Narrative* Problem Noted Date Diagnosed Date Resolved Date Chest wall pain 08/21/2023 08/21/2023 10/25/2023 Fall 08/21/2023 08/21/2023 10/25/2023 Pain, unspecified 08/18/2023 09/28/2023 10/25/2023 Strain of thoracic back region 03/26/2023 08/21/2023 10/25/2023 Protein-calorie malnutrition , unspecified severity 01/26/2023 01/30/2023 Secondary renal hyperparathyroidism 01/26/2023 01/30/2023 Sinus congestion 10/22/2022 01/30/2023 Contusion of left hip 09/16/2022 08/21/20232023 Contusion of left shoulder 09/16/2022 08/21/2023 0 10/25/2023 Acute cystitis 01/03/2022 08/21/2023 10/25/2023 Abdominal pain 10/13/2021 08/21/2023 10/25/2023 History of COVID-19 07/12/2021 01/31/20 23 Overview: 06/2021 Routine General Medical Exam ination at a Health Care Facility 11/10/2008 05/15/2014 documented as of this encounter (statuses as of 01/01/2024) [facility] History of Past illness Narrative* Problem Noted Date Diagnosed Date Resolved Date Chest wall pain 08/21/2023 08/21/2023 10/25/2023 Fall 08/21/2023 08/21/202310/2510/25/2023 Pain, unspecified 08/18/2023 09/28/2023 10/25/2023 Strain of thoracic back region 03/26/2023 08/21/2023 10/25/2023 Protein-calorie malnutrition , unspecified severity 01/26/2023 01/30/2023 Secondary renal hyperparathyroidism 01/26/2023 01/30/2023 Sinus congestion 10/22/2022 01/30/2023 Contusion of left hip 09/16/2022 08/21/20232023 Contusion of left shoulder 09/16/2022 08/21/2023 0 10/25/2023 Acute cystitis 01/03/2022 08/21/2023 10/25/2023 Abdominal pain 10/13/2021 08/21/2023 10/25/2023 History of COVID-19 07/12/2021 01/31/20 Overview: 06/2021 Routine General Medical Exam ination at a [facility] 11/10/2008 05/15/2014 documented as of this encounter (statuses as of 01/02/2024) [facility] History of Past illness Narrative* Problem Noted Date Diagnosed Date Resolved Date Chest wall pain 08/21/2023 08/21/2023 10/25/2023 Fall 08/21/2023 08/21/2023 10/25/2023 Pain, unspecified 08/18/2023 09/28/2023 10/25/2023 Strain of thoracic back region 03/26/2023 08/21/2023 10/25/2023 Protein-calorie malnutrition , unspecified severity 01/26/2023 01/30/2023 Secondary renal hyperparathyroidism 01/26/2023 01/30/2023 Sinus congestion 10/22/2022 01/30/2023 Contusion of left hip 09/16/2022 08/21/20232023 Contusion of left shoulder 09/16/2022 08/21/2023 0 10/25/2023 Acute cystitis 01/03/2022 08/21/2023 10/25/2023 Abdominal pain 10/13/2021 08/21/202310/2510/25/2023 History of COVID-19 07/12/2021 01/31/20 23 Overview: 06/2021 Routine General Medical Exam ination at a Health Care Facility 11/10/2008 05/15/2014 documented as of this encounter (statuses as of 01/03/2024) [facility] History of Past illness Narrative* Problem Noted Date Diagnosed Date Resolved Date Chest wall pain 08/21/2023 08/21/2023 10/25/2023 Fall 08/21/2023 08/21/2023 10/25/2023 Pain, unspecified 08/18/2023 09/28/2023 10/25/2023 Strain of thoracic back region 03/26/2023 08/21/2023 10/25/2023 Protein-calorie malnutrition , unspecified severity 01/26/2023 01/30/2023 Secondary renal hyperparathyroidism 01/26/2023 01/30/2023 Sinus congestion 10/22/2022 01/30/2023 Contusion of left hip 09/16/2022 08/21/20232023 Contusion of left shoulder 09/16/2022 08/21/2023 0 10/25/2023 Acute cystitis 01/03/2022 08/21/2023 10/25/2023 Abdominal pain 10/13/2021 08/21/2023 10/25/2023 History of COVID-19 07/12/2021 01/31/20 23 Overview: 06/2021 Routine General Medical Exam ination at a Health Care Facility 11/10/2008 05/15/2014 documented as of this encounter (statuses as of 01/03/2024) [facility] History of Past illness Narrative* Problem Noted Date Diagnosed Date Resolved Date Chest wall pain 08/21/2023 08/21/2023 10/25/2023 Fall 08/21/2023 08/21/2023 10/25/2023 Pain, unspecified 08/18/2023 09/28/2023 10/25/2023 Strain of thoracic back region 03/26/2023 08/21/202310/25/2023 Protein-calorie malnutrition , unspecified severity 01/26/2023 01/30/2023 Secondary renal hyperparathyroidism 01/26/2023 01/30/2023 Sinus congestion 10/22/2022 01/30/2023 Contusion of left hip 09/16/2022 08/21/20232023 Contusion of left shoulder 09/16/2022 08/21/2023 0 10/25/2023 Acute cystitis 01/03/2022 08/21/2023 10/25/2023 Abdominal pain 10/13/2021 08/21/2023 10/25/2023 History of COVID-19 07/12/2021 01/31/20 23 Overview: 06/2021 Routine General Medical Exam ination at a [facility] 11/10/2008 05/15/2014 documented as of this encounter (statuses as of 01/04/2024) [facility] History of Past illness Narrative* Problem Noted Date Diagnosed Date Resolved Date Chest wall pain 08/21/2023 08/21/2023 10/25/2023 Fall 08/21/2023 08/21/2023 10/25/2023 Pain, unspecified 08/18/2023 09/28/2023 10/25/2023 Strain of thoracic back region 03/26/2023 08/21/2023 10/25/2023 Protein-calorie malnutrition , unspecified severity 01/26/2023 01/30/2023 Secondary renal hyperparathyroidism 01/26/2023 01/30/2023 Sinus congestion 10/22/2022 01/30/2023 Contusion of left hip 09/16/2022 08/21/20232023 Contusion of left shoulder 09/16/2022 08/21/2023 0 10/25/2023 Acute cystitis 01/03/2022 08/21/2023 10/25/2023 Abdominal pain 10/13/2021 08/21/2023 10/25/2023 History of COVID-19 07/12/2021 01/31/20 23 Overview: 06/2021 Routine General Medical Exam ination at a Health Care Facility 11/10/2008 05/15/2014 documented as of this encounter (statuses as of 01/05/2024) [facility] History of Past illness Narrative* Problem Noted Date Diagnosed Date Resolved Date Chest wall pain 08/21/2023 08/21/2023 10/25/2023 Fall 08/21/2023 08/21/2023 10/25/2023 Pain, unspecified 08/18/2023 09/28/2023 10/25/2023 Strain of thoracic back region 03/26/2023 08/21/2023 10/25/2023 Protein-calorie malnutrition , unspecified severity 01/26/2023 01/30/2023 Secondary renal hyperparathyroidism 01/26/2023 01/30/2023 Sinus congestion 10/22/2022 01/30/2023 Contusion of left hip 09/16/2022 08/21/20232023 Contusion of left shoulder 09/16/2022 08/21/2023 0 10/25/2023 Acute cystitis 01/03/2022 08/21/2023 10/25/2023 Abdominal pain 10/13/2021 08/21/2023 10/25/2023 History of COVID-19 07/12/2021 01/31/20 Overview: 06/2021 Routine General Medical Exam ination at a [facility] 11/10/2008 05/15/2014 documented as of this encounter (statuses as of 01/09/2024) [facility] History of Past illness Narrative* Problem Noted Date Diagnosed Date Resolved Date Chest wall pain 08/21/2023 08/21/2023 10/25/2023 Fall 08/21/2023 08/21/2023 10/25/2023 Pain, unspecified 08/18/2023 09/28/2023 10/25/2023 Strain of thoracic back region 03/26/2023 08/21/2023 10/25/2023 Protein-calorie malnutrition , unspecified severity 01/26/2023 01/30/2023 Secondary renal hyperparathyroidism 01/26/2023 01/30/2023 Sinus congestion 10/22/2022 01/30/2023 Contusion of left hip 09/16/2022 08/21/20232023 Contusion of left shoulder 09/16/2022 08/21/2023 0 10/25/2023 Acute cystitis 01/03/2022 08/21/2023 10/25/2023 Abdominal pain 10/13/2021 08/21/2023 10/25/2023 History of COVID-19 07/12/2021 01/31/20 23 Overview: 06/2021 Routine General Medical Exam ination at a Health Care Facility 11/10/2008 05/15/2014 documented as of this encounter (statuses as of 01/16/2024) [facility] of Past illness Narrative* Problem Noted Date Diagnosed Date Resolved Date Chest wall pain 08/21/2023 08/21/2023 10/25/2023 Fall 08/21/2023 08/21/2023 10/25/2023 Pain, unspecified 08/18/2023 09/28/2023 10/25/2023 Strain of thoracic back region 03/26/2023 08/21/2023 10/25/2023 Protein-calorie malnutrition , unspecified severity 01/26/2023 01/30/2023 Secondary renal hyperparathyroidism 01/26/2023 01/30/2023 Sinus congestion 10/22/2022 01/30/2023 Contusion of left hip 09/16/2022 08/21/20232023 Contusion of left shoulder 09/16/2022 08/21/2023 0 10/25/2023 Acute cystitis 01/03/2022 08/21/2023 10/25/2023 Abdominal pain 10/13/2021 08/21/2023 10/25/2023 History of COVID-19 07/12/2021 01/31/20 23 Overview: 06/2021 Routine General Medical Exam ination at a Health Care Facility 11/10/2008 05/15/2014 documented as of this encounter (statuses as of 01/17/2024) [facility] History of Past illness Narrative* Problem Noted Date Diagnosed Date Resolved Date Chest wall pain 08/21/2023 08/21/2023 10/25/2023 Fall 08/21/2023 08/21/2023 10/25/2023 Pain, unspecified 08/18/2023 09/28/2023 10/25/2023 Strain of thoracic back region 03/26/2023 08/21/2023 10/25/2023 Protein-calorie malnutrition , unspecified severity 01/26/2023 01/30/2023 Secondary renal hyperparathyroidism 01/26/2023 01/30/2023 Sinus congestion 10/22/2022 01/30/2023 Contusion of left hip 09/16/2022 08/21/20232023 Contusion of left shoulder 09/16/2022 08/21/2023 0 10/25/2023 Acute cystitis 01/03/2022 08/21/2023 10/25/2023 Abdominal pain 10/13/2021 08/21/2023 10/25/2023 History of COVID-19 07/12/2021 01/31/20 Overview: 06/2021 Routine General Medical Exam ination at a Health Care Facility 11/10/2008 05/15/2014 documented as of this encounter (statuses as of 01/05/2024) [facility] History of Past illness Narrative* Problem Noted Date Diagnosed Date Resolved Date Chest wall pain 08/21/2023 08/21/2023 10/25/2023 Fall 08/21/2023 08/21/2023 10/25/2023 Pain, unspecified 08/18/2023 09/28/2023 10/25/2023 Strain of thoracic back region 03/26/2023 08/21/2023 10/25/2023 Protein-calorie malnutrition , unspecified severity 01/26/2023 01/30/2023 Secondary renal hyperparathyroidism 01/26/2023 01/30/2023 Sinus congestion 10/22/2022 01/30/2023 Contusion of left hip 09/16/2022 08/21/20232023 Contusion of left shoulder 09/16/2022 08/21/2023 0 10/25/2023 Acute cystitis 01/03/2022 08/21/2023 10/25/2023 Abdominal pain 10/13/2021 08/21/2023 10/25/2023 History of COVID-19 07/12/2021 01/31/20 Overview: 06/2021 Routine General Medical Exam ination at a Health Care Facility 11/10/2008 05/15/2014 documented as of this encounter (statuses as of 01/05/2024) [facility]2023 Miscellaneous Notes* Addendum Note - Bridget De Luna MD - 08/21/2023 9:39 AM ESTAddended by: BRIDGET DE LUNA on: 08/21/2023 09:39 AM Modules accepted: [facility] of Present illness Narrative* Bridget De Luna MD - 08/21/2023 8:54 AM EST Patient presents with: Medicare Wellness Exam HPI: Patient presents today for office visit for check up. She declines medicare wellness exam after discussion. HTN: Patient is compliant with meds Yes Denies side effects: No. Chest pain: No. Dyspnea: No. Edema: No. Palpitations: No. Syncope: No. Headache: No. Dizziness: No. HYPERLIPIDEMIA: Patient is taking medications: Yes. Patient is watching diet: Yes. Patient denies myalgias: No. Patient denies gi upset: No Scheduled for egd/colonoscopy next month. Has had her thyroid us done recently. Had previously had an echo noted on her us. Cardiology had recommended follow up. If persists can consider seeing the pericardial clinc. MEDICATIONS: Current Outpatient Medications Medication Sig lisinopril (ZESTRIL) 40 mg tablet Take 1 tablet by mouth once daily. folic acid 1 mg tablet Take 1 mg by mouth once daily. atorvastatin (LIPITOR) 10 mg tablet Take 1 tablet by mouth daily at bedtime. For cholesterol. fluticasone (FLONASE) 50 mcg/actuation nasal spray Use 2 Sprays in each nostril once daily. Rinse mouth after use. cyclobenzaprine (FLEXERIL) 10 mg tablet Take 1 tablet by mouth three times daily as needed. famotidine (PEPCID) 20 mg tablet Take 1 tablet by mouth twice daily. Current Facility-Administered Medications Medication Dose Route Frequency perflutren lipid microspheres 1.3 mL in NaCl (PF) 0.9% 10 mL injection (DEFINITY) INTRAVENOUS DIRECTED PRN sodium chloride 0.9 % (flush) 10 mL (BD POSIFLUSH) 10 mL INTRAVENOUS DIRECTED PRN ALLERGIES: ALLERGIES Allergen Reactions Amoxicillin Itching Asa [Salicylates] Itching Codeine Itching Cortizone-10 [[place]* Itching Cymbalta [Duloxetin* Intolerance One pill: bruning all over Dolibid [Other] Itching Duricef [Cefadroxil] Itching Dye Shortness of Breath Ct dye. Including rash Entex La [Phenyleph* Itching Erythromycin Itching Flu Vac 2014 (65 Up* Shortness of Breath Keflex [Cephalexin] Itching Levaquin [Levofloxa* Other: See Comments itching Macrobid [Nitrofura* Other: See Comments Fast heart rate Mobic [Meloxicam] Itching Morphine Itching Penicillins Hives Prednisolone Other: See Comments Elevated blood pressure. Has done well with medrol dose april. Prilosec [Omeprazol* Itching Septra [Sulfamethox* Hives Sulfa (Sulfonamide * Hives Tetracycline Hives Can take doxycycline PAST MEDICAL HISTORY Diagnosis Date Chronic kidney disease, stage III (moderate) (HCC) DDD (degenerative disc disease), cervical Dr Navjot History of COVID-19 07/12/202106/2021 MTHFR mutation Osteoarthritis PAST SURGICAL HISTORY Procedure Laterality Date DELIVERY ONLY 10/02/1984 , low transverse FAMILY HISTORY Problem Relation Age of Onset Breast Cancer Mother 74 Heart Brother Diabetes Paternal Grandmother Social History Tobacco Use Smoking status: Former Smokeless tobacco: Never Vaping Use Vaping Use: Never used Substance Use Topics Alcohol use: No Drug use: No Reviewed current medications, allergies, past medical history, surgical history, family history andsocial history today. REVIEW OF SYSTEMS All other reviewed and negative other than HPI. HEALTH MAINTENANCE: Reviewed health maintenance issues today and recommended the following in detail. RSV Vaccine(1 - 1-dose 60+ series) Never done Colorectal Cancer Screening due on 09/22/2021 Covid-19 Vaccine(2022- season) due on 06/02/2023 VITALS: BP 128/86 Pulse 74 Ht 162.6 cm (5' 4) Wt 53.2 kg (117 lb 3.2 oz) SpO2 99% BMI 20.12 kg/m Last 4 Encounter Wt Readings: Date: Wt: 08/04/2023 53.1 kg (117 lb) 06/26/2023 51.7 kg (114 lb) 06/16/2023 51.3 kg (113 lb 3.2 oz) 06/12/2023 50.8 kg (112 lb) PHYSICAL EXAMINATION: General appearance: Well appearing, alert, in no acute distress, well-hydrated, well nourished. Skin: Skin color, texture, turgor normal, no suspicious rashes or lesions Head: Normocephalic, no masses, lesions, tenderness or abnormalities Eyes: Anicteric sclera. Pupils are equally round and reactive to light. Extraocular movements are intact. Lungs: Lungs clear to auscultation. No wheezing, rhonchi, rales Heart: RRR without murmur, gallop, or rubs. No ectopy Abdomen: Normal abdominal exam, Abdomen soft, non-tender. Bowel sounds normal. No masses, organomegaly Extremities: No deformities, edema, skin discoloration, clubbing or cyanosis. Good capillary refill. Musculoskeletal: No joint swelling, deformity, or tenderness ASSESSMENT/PLAN: 1. Primary hypertension - ICD9: 401.9, ICD10: I10 (primary diagnosis) - Controlled - Continue current medications - Recommend regular aerobic exercise - CBC + DIFF - COMP METABOLIC PANEL - LIPID PANEL BASIC 2. Mixed hyperlipidemia - ICD9: 272.2, ICD10: E78.2 - Controlled - Continue current medications - LIPID PANEL BASIC 3. GERD without esophagitis - ICD9: 530.81, ICD10: K21.9 - stable. 4. Chronic kidney disease, stage 3a (HCC) - ICD9: 585.3, ICD10: N18.31 - follow labs. 5. Thyroid nodule - ICD9: 241.0, ICD10: E04.1 - up to date on screening. 6. Pericardial effusion - ICD9: 423.9, ICD10: I31.39 - reassess - ECHO - PERFLUTREN LIPID MICROSPHERES 1.1 MG/ML INJECTION IN NS 10 ML - SODIUM CHLORIDE 0.9 % (FLUSH) INJECTION SYRINGE Bridget De Luna MD documented in this encounterG[facility]11-[facility]23 Miscellaneous Notes* Telephone Encounter - April Garcia Ma - 08/10/2023 9:01 AM EST Last office visit: 08/07/23 F/u scheduled: none April Jose Miller documented in this encounterGlen[facility]11-06-2023 Instructions* Patient Instructions* Herlinda Jett APRN.WASH WORKER - 08/07/2023 8:47 AM EST Start the bromfed. Let us know if no better/worsening. Home going instructions for Viral Upper Respiratory Infections In General: - Drink lots of fluids - at least one gallon of non-caffeinated liquids per day - Make sure you are eating well - Get plenty of rest - at least 8 hours of sleep per night for adults - ibuprofen 600mg every 8 hours as needed for discomfort - acetaminophen 500mg every 4-6 hours as needed for fever and discomfort. - may alternate ibuprofen and acetaminophen For nasal congestion try: -Vaporizers, Neti Pot, humidifiers, hot showers, and hot fluids help open respiratory and sinus passages. - [place] Nasal [place] may offer relief of nasal and head congestion 2-3 times per day as needed. - Sudafed is a safe and effective decongestant for people who do not have high blood pressure. Do not take Sudafed if you have ever been told that you have high blood pressure or hypertension. General dosing guidelines: Immediate release: 60 mg every 4-6 hours; Extended release: 120 mg every 12 hours or 240 mg every 24 hours; maximum: 240 mg/24 hours. For Sore Throat try: - Salt water gargles every 2-3 hours as needed for discomfort - Chloraceptic spray or throat lozenges (Cepacol) For Cough and chest congestion try one of the following: - Mucinex or Robitussin are expectorants. You may take 200-400 mg every 4 hours to a not to exceed 2,400 mg/day OR Extended release tablet: 600-1200 mg every 12 hours, not to exceed 2,400 mg/day - Delsym is a cough suppressant: Oral: 10-20 mg every 4 hours or 30 mg every 6-8 hours OR Extended release: 60 mg twice daily; maximum: 120 mg/day - If you have high blood pressure or hypertension it is safe to take Coricidin HBP Cough & Cold. If you smoke it is advised that you quit smoking. CONTACT YOUR DOCTOR IF: You have fevers for longer than five days or a fever more than 102 degrees You are still sick after 10 days After several days you are getting worse rather than better 4. You develop nausea, vomiting, diarrhea, or a rash. Go to the ER if you - experience pressure or pain in your chest - experience difficulty swallowing - experience difficulty breathing Follow up in 7-10 days or before if your symptoms get worse. documented in this encounterGlen[facility]11-06-2023 History of Present illness Narrative* Herlinda Jett APRN.CNP - 08/07/2023 8:38 AM EST This is a 68 year old female who presents today with: Patient presents with: Acute Visit: URI symptoms x 8 days; home COVID test was negative; was seen on 08/04 for the same symptoms continue, no change HISTORY OF PRESENT ILLNESS: Terri Villar is a 68 year old female. Patient presents with: Acute Visit: URI symptoms x 8 days; home COVID test was negative; was seen on 08/04 for the same symptoms continue, no change Pt presents today with complaint of URI symptoms. Refers that she has been sick for over a week. + head congestion. Clear secretions. Little bit of sore throat. No ear pain. Not much cough. Always nausea. No vomiting/diarrhea. No fever. Flonase, tylenol, and whatever else I can find. Was seen on Monday for the same and reported that she had doxy at home. Did not start this. PAST MEDICAL HISTORY: PAST MEDICAL HISTORY Diagnosis Date Chronic kidney disease, stage III (moderate) ([facility]) DDD (degenerative disc disease), cervical Dr Morfin History of COVID-19 07/12/202106/2021 MTHFR mutation Osteoarthritis PAST SURGICAL HISTORY Procedure Laterality Date DELIVERY ONLY 10/02/1984 , low transverse ALLERGIES Amoxicillin, Asa [Salicylates], Codeine, Cortizone-10 [Hydrocortisone], Cymbalta [Duloxetine], Dolibid [Other], Duricef [Cefadroxil], Dye, Entex La [Phenylephrine-Guaifenesin], Erythromycin, Flu Vac 2014 (65 Up)- Mf59c(Pf), Keflex [Cephalexin], Levaquin [Levofloxacin], Macrobid [Nitrofurant oin Monohyd/M-Cryst], Mobic [Meloxicam], Morphine, Penicillins, Prednisolone, Prilosec [Omeprazole], Septra [Sulfamethoxazole-Trimethoprim], Sulfa (Sulfonamide Antibiotics), and Tetracycline MEDICATIONS Current Outpatient Medications Medication Sig atorvastatin (LIPITOR) 10 mg tablet Take 1 tablet by mouth daily at bedtime. For cholesterol. fluticasone (FLONASE) 50 mcg/actuation nasal spray Use 2 Sprays in each nostril once daily. Rinse mouth after use. cyclobenzaprine (FLEXERIL) 10 mg tablet Take 1 tablet by mouth three times daily as needed. famotidine (PEPCID) 20 mg tablet Take 1 tablet by mouth twice daily. lisinopril (ZESTRIL) 40 mg tablet Take 1 tablet by mouth once daily. Current Facility-Administered Medications Medication Dose Route Frequency perflutren lipid microspheres 1.3 mL in NaCl (PF) 0.9% 10 mL injection (DEFINITY) INTRAVENOUS DIRECTED PRN sodium chloride 0.9 % (flush) 10 mL (BD POSIFLUSH) 10 mL INTRAVENOUS DIRECTED PRN FAMILY HISTORY Problem Relation Age of Onset Breast Cancer Mother 74 Heart Brother Diabetes Paternal Grandmother Social History Tobacco Use Smoking status: Former Smokeless tobacco: Never Vaping Use Vaping Use: Never used Substance Use Topics Alcohol use: No Drug use: No EXAM: BP 124/76 Pulse 72 Resp 16 SpO2 99% PHYSICAL EXAM: General Appearance: Well appearing, alert, in no acute distress, well-hydrated, well nourished.. Skin: Skin color, texture, turgor normal, no suspicious rashes or lesions. Head: Normocephalic, no masses, lesions, tenderness or abnormalities. Eyes: Anicteric sclera. Pupils are equally round and reactive to light. Extraocular movements are intact. . Ears: External ears normal, canals clear. Normal TMs bilaterally. Nose/Sinuses: Nares normal, septum midline, mucosa normal, no drainage or sinus tenderness. Oropharynx: Lips, mucosa, and tongue normal, teeth and gums normal, oropharynx normal. Neck: Supple, no adenopathy; thyroid symmetric, normal size, no bruits. Lungs: Lungs clear to auscultation. No wheezing, rhonchi, rales.. Heart: RRR without murmur, gallop, or rubs. No ectopy. Neurologic: Gait normal. ASSESSMENT/PLAN: 1. Viral URI - ICD9: 465.9, ICD10: J06.9 - Discussed viral etiology and rationale for treatment. - Symptomatic treatment with prn analgesia - Supportive care with fluids and rest - [id number]-XP 2 MG-30 MG-10 MG/5 ML ORAL SYRUP Discussed treatment plan and patient voices understanding. Patient's questions answered appropriately. Medications and potential side effects were discussed and patient voices understanding. Return to the office as scheduled or as needed for worsening/no improvement. Herlinda Jett APRN.WILFREDO documented in this encounterG[facility]11-03-2023 History of Present illness Narrative* Rachael Hammond APRN.CNP - 08/04/2023 2:14 PM EDT Patient visit performed while computer system was down, so limited chart information available to refer to. Charting completed after. Chief Complaint Patient presents with: Back Pain: X 2 days, No injury pt aware of. Cold sx. HPI Terri Villar is a 68 year old female who presents here today for Above Complaints.. Today: Patient has had a cold with a dry cough and nasal congestion for about 5 days. Denies fever. Took negative COVID test a couple days ago. Hasn't taken much for this. Has arthritis in both of her shoulders and upper back/neck. Usually she uses a heating pad and Tylenol which hasn't really been helping. Hasn't used ice. She does have a muscle relaxer that typicallyhelps, but it makes her sleepy. Has had no new trauma or known triggering event. Past medical history, appointments, medications, allergies reviewed. Previous Medical History PAST MEDICAL HISTORY Diagnosis Date Chronic kidney disease, stage III (moderate) (HCC) DDD (degenerative disc disease), cervical Dr Navjot History of COVID-19 07/12/202106/2021 MTHFR mutation Osteoarthritis Previous Surgical History PAST SURGICAL HISTORY Procedure Laterality Date DELIVERY ONLY 10/02/1984 , low transverse Family History FAMILY HISTORY Problem Relation Age of Onset Breast Cancer Mother 74 Heart Brother Diabetes Paternal Grandmother Patient Allergies ALLERGIES Allergen Reactions Amoxicillin Itching Asa [Salicylates] Itching Codeine Itching Cortizone-10 [[place]* Itching Cymbalta [Duloxetin* Intolerance One pill: bruning all over Dolibid [Other] Itching Duricef [Cefadroxil] Itching Dye Shortness of Breath Ct dye. Including rash Entex La [Phenyleph* Itching Erythromycin Itching Flu Vac 2014 (65 Up* Shortness of Breath Keflex [Cephalexin] Itching Levaquin [Levofloxa* Other: See Comments itching Macrobid [Nitrofura* Other: See Comments Fast heart rate Mobic [Meloxicam] Itching Morphine Itching Penicillins Hives Prednisolone Other: See Comments Elevated blood pressure. Has done well with medrol dose april. Prilosec [Omeprazol* Itching Septra [Sulfamethox* Hives Sulfa (Sulfonamide * Hives Tetracycline Hives Can take doxycycline Current Medications Current Outpatient Medications on File Prior to Visit Medication Sig atorvastatin (LIPITOR) 10 mg tablet Take 1 tablet by mouth daily at bedtime. For cholesterol. fluticasone (FLONASE) 50 mcg/actuation nasal spray Use 2 Sprays in each nostril once daily. Rinse mouth after use. cyclobenzaprine (FLEXERIL) 10 mg tablet Take 1 tablet by mouth three times daily as needed. famotidine (PEPCID) 20 mg tablet Take 1 tablet by mouth twice daily. lisinopril (ZESTRIL) 40 mg tablet Take 1 tablet by mouth once daily. Current Facility-Administered Medications on File Prior to Visit Medication perflutren lipid microspheres 1.3 mL in NaCl (PF) 0.9% 10 mL injection (DEFINITY) sodium chloride 0.9 % (flush) 10 mL (BD POSIFLUSH) Social History Social History Tobacco Use Smoking status: Former Smokeless tobacco: Never Vaping Use Vaping Use: Never used Substance Use Topics Alcohol use: No Drug use: No Review of Symptoms REVIEW OF SYSTEMS See HPI, otherwise negative EXAM: BP 124/86 (BP Site: Right Arm, BP Position: Sitting, BP Cuff Size: Regular Adult) Pulse 83 Temp36.6 C (97.8 F) Resp 16 Wt 53.1 kg (117 lb) SpO2 100% BMI 20.08 kg/m General Appearance: Well appearing, alert, in no acute distress, well-hydrated, well nourished. andThin. Neck: Supple, no adenopathy; thyroid symmetric, normal size, no bruits. Back: general moderate decrease in ROM, posterior neck and upper back muscles bilaterally tender topalpation Lungs: Lungs clear to auscultation. No wheezing, rhonchi, rales.. Heart: RRR without murmur, gallop, or rubs. No ectopy. Neurologic: Gait normal. Reflexes normal and symmetric. Sensation grossly intact.. Psychiatric: pleasant, cooperative. Health Maintenance List RSV Vaccine(1 - 1-dose 60+ series) Never done Colorectal Cancer Screening due on 09/22/2021 Covid-19 Vaccine(2 - 2022-24 season) due on 06/02/2023 Shingrix Vaccine(1 of 2) due on 09/07/2023 Pneumococcal Vaccine: 65+(1 - PCV) due on 09/07/2023 BP Controlled (<130/80) due on 09/07/2023 Mammogram Screening due on 11/23/2023 Serum Creatinine due on 03/18/2024 Hemoglobin/Hematocrit due on 03/18/2024 Annual PCP Team Chronic Disease Visit due on 08/04/2024 Diabetes Screening due on 03/18/2026 Lipid Screening due on 01/19/2028 DTaP,Tdap,Td Vaccine(2 - Td or Tdap) due on 10/13/2031 Bone Density Screening Completed Advance Directive Discussion Completed Depression Assessment Completed Hepatitis C Screening Completed Influenza Vaccine Discontinued Data reviewed Previous records, office notes ASSESSMENT/PLAN: 1. Persistent dry cough - ICD9: 786.2, ICD10: R05.3 (primary diagnosis) Has rx for doxycycline at home already for these sx. She will start this treatment. Supportive care. Notify the office in 1-2 weeks if worsening or lack of improvement in sx. 2. Nasal congestion - ICD9: 478.19, ICD10: R09.81 Has rx for doxycycline at home already for these sx. She will start this treatment. Supportive care. Notify the office in 1-2 weeks if worsening or lack of improvement in sx. 3. Upper back pain, chronic - ICD9: 724.5, 338.29, ICD10: M54.9, G89.29 Rest. Alternate ice and heat. Ok to continue with prn Tylenol. Ok to take 1/2 of her Flexeril and this hopefully will not make her feel so tired. 4. Neck pain, chronic - ICD9: 723.1, 338.29, ICD10: M54.2, G89.29 Rest. Alternate ice and heat. Ok to continue with prn Tylenol. Ok to take 1/2 of her Flexeril and this hopefully will not make her feel so tired. Rachael Hammond APRN.WILFREDO documented in this encounterG[facility]09-25-2023 History of Present illness Narrative* Adelaida Pichardo PA-C - 06/26/2023 7:52 AM EDT Chief Complaint Patient presents with: Dysuria HPI Terri Villar is a 68 year old female who presents here today for Above Complaints.. Patient has presented to office numerous times this past month for urinary symptoms. Urine culture has been negative and she has also completed a round of atb without improvement. On 06/16 she went to ER. CT showed constipation, distended bladder but otherwise negative. She is also being worked up by nurse obgyn for endometrial thickening. She is scheduled for follow up with nurse obgyn on 07/06. Patient states she saw Dr. Cool last year. Had a scope but has not been back to her office. Per report she was supposed to be on vaginal estrogen cream, but patient doesn't recall ever starting this. Past medical history, appointments, medications, allergies reviewed. Previous Medical History PAST MEDICAL HISTORY Diagnosis Date Chronic kidney disease, stage III (moderate) (HCC) DDD (degenerative disc disease), cervical Dr Navjot History of COVID-19 07/12/202106/2021 MTHFR mutation Osteoarthritis Previous Surgical History PAST SURGICAL HISTORY Procedure Laterality Date DELIVERY ONLY 10/02/1984 , low transverse Family History FAMILY HISTORY Problem Relation Age of Onset Breast Cancer Mother 74 Heart Brother Diabetes Paternal Grandmother Patient Allergies ALLERGIES Allergen Reactions Amoxicillin Itching Asa [Salicylates] Itching Codeine Itching Cortizone-10 [[place]* Itching Cymbalta [Duloxetin* Intolerance One pill: bruning all over Dolibid [Other] Itching Duricef [Cefadroxil] Itching Dye Shortness of Breath Ct dye. Including rash Entex La [Phenyleph* Itching Erythromycin Itching Flu Vac 2014 (65 Up* Shortness of Breath Keflex [Cephalexin] Itching Levaquin [Levofloxa* Other: See Comments itching Macrobid [Nitrofura* Other: See Comments Fast heart rate Mobic [Meloxicam] Itching Morphine Itching Penicillins Hives Prednisolone Other: See Comments Elevated blood pressure. Has done well with medrol dose april. Prilosec [Omeprazol* Itching Septra [Sulfamethox* Hives Sulfa (Sulfonamide * Hives Tetracycline Hives Can take doxycycline Current Medications Current Outpatient Medications on File Prior to Visit Medication Sig atorvastatin (LIPITOR) 10 mg tablet Take 1 tablet by mouth daily at bedtime. For cholesterol. fluticasone (FLONASE) 50 mcg/actuation nasal spray Use 2 Sprays in each nostril once daily. Rinse mouth after use. cyclobenzaprine (FLEXERIL) 10 mg tablet Take 1 tablet by mouth three times daily as needed. famotidine (PEPCID) 20 mg tablet Take 1 tablet by mouth twice daily. lisinopril (ZESTRIL) 40 mg tablet Take 1 tablet by mouth once daily. Current Facility-Administered Medications on File Prior to Visit Medication perflutren lipid microspheres 1.3 mL in NaCl (PF) 0.9% 10 mL injection (DEFINITY) sodium chloride 0.9 % (flush) 10 mL (BD POSIFLUSH) Social History Social History Tobacco Use Smoking status: Former Smokeless tobacco: Never Vaping Use Vaping Use: Never used Substance Use Topics Alcohol use: No Drug use: No Review of Symptoms REVIEW OF SYSTEMS See hpi EXAM: BP 102/80 (BP Site: Left Arm, BP Position: Sitting, BP Cuff Size: Regular Adult) Pulse 70 Temp 36.6 C (97.9 F) Resp 16 Wt 51.7 kg (114 lb) BMI 19.57 kg/m General Appearance: Well appearing, alert, in no acute distress, well-hydrated, well nourished.. Abdomen: +Suprapubic pressure. No cva tenderness. Bs wnl. . Health Maintenance List Colorectal Cancer Screening due on 09/22/2021 Shingrix Vaccine(1 of 2) due on 09/07/2023 Covid-19 Vaccine(2 - Pfizer series) due on 09/07/2023 Pneumococcal Vaccine: 65+(1 - PCV) due on 09/07/2023 BP Controlled (<130/80) due on 09/07/2023 Mammogram Screening due on 11/23/2023 Serum Creatinine due on 03/18/2024 Hemoglobin/Hematocrit due on 03/18/2024 Annual PCP Team Chronic Disease Visit due on 06/12/2024 Diabetes Screening due on 03/18/2026 Lipid Screening due on 01/19/2028 DTaP,Tdap,Td Vaccine(2 - Td or Tdap) due on 10/13/2031 Bone Density Screening Completed Advance Directive Discussion Completed Depression Assessment Completed Hepatitis C Screening Completed Influenza Vaccine Discontinued Data reviewed ASSESSMENT/PLAN: 1. Dysuria - ICD9: 788.1, ICD10: R30.0 recurrent - Send urine for culture - Patient education for prevention given Patient will return to urology for management. Will send consult to dr. Cool. - CONSULT TO UROLOGY - URINE CULTURE Adelaida Pichardo PA-C documented in this encounterGlen[facility] Hospital09-15-2023 History of Present illness Narrative* Esther Dial APRN.WASH WORKER - 06/16/2023 7:36 AM EDT CC: Patient presents with: Urinary Problem: Burning with urination Since Monday, urine culture was negative on Cipro x 2 days HPI Terri Villar is a 68 year old female who presents with complaint of possible UTI. These symptoms have been present for 2 days. Associated symptoms: burning Denies: backpain, pressure, fever, chills, sweats, and flank pain Treatments: antibiotics The ROS was otherwise negative. PMH, Medications, labs, allergies, and recent past visits with PCP were reviewed and updated as able. PHYSICAL EXAM: BP 128/84 Pulse 81 Temp 36.3 C (97.4 F) Resp 20 Wt 51.3 kg (113 lb 3.2 oz) SpO2 100% BMI 19.43 kg/m General: Well appearing and alert Back: straight and symmetric Abdomen: soft, mild tenderness over mid lower abdoman, nondistended PAST MEDICAL HISTORY Diagnosis Date Chronic kidney disease, stage III (moderate) (HCC) DDD (degenerative disc disease), cervical Dr Knapic History of COVID-19 07/12/202106/2021 MTHFR mutation Osteoarthritis PAST SURGICAL HISTORY Procedure Laterality Date DELIVERY ONLY 10/02/1984 , low transverse ALLERGIES Amoxicillin, Asa [Salicylates], Codeine, Cortizone-10 [Hydrocortisone], Cymbalta [Duloxetine], Dolibid [Other], Duricef [Cefadroxil], Dye, Entex La [Phenylephrine-Guaifenesin], Erythromycin, Flu Vac 2014 (65 Up)- Mf59c(Pf), Keflex [Cephalexin], Levaquin [Levofloxacin], Macrobid [Nitrofurant oin Monohyd/M-Cryst], Mobic [Meloxicam], Morphine, Penicillins, Prednisolone, Prilosec [Omeprazole], Septra [Sulfamethoxazole-Trimethoprim], Sulfa (Sulfonamide Antibiotics), and Tetracycline MEDICATIONS ciprofloxacin HCl (CIPRO) 500 mg tablet^Take 500 mg by mouth twice daily.^Disp: ^Rfl: doxycycline (VIBRA-TABS) 100 mg tablet^Take 1 tablet by mouth twice daily for 10 days.^Disp: 20 tablet^Rfl: 0 atorvastatin (LIPITOR) 10 mg tablet^Take 1 tablet by mouth daily at bedtime. For cholesterol.^Disp:90 tablet^Rfl: 3 fluticasone (FLONASE) 50 mcg/actuation nasal spray^Use 2 Sprays in each nostril once daily. Rinse mouth after use.^Disp: 3 Each^Rfl: 3 cyclobenzaprine (FLEXERIL) 10 mg tablet^Take 1 tablet by mouth three times daily as needed.^Disp: 30 tablet^Rfl: 0 famotidine (PEPCID) 20 mg tablet^Take 1 tablet by mouth twice daily.^Disp: 60 tablet^Rfl: 5 lisinopril (ZESTRIL) 40 mg tablet^Take 1 tablet by mouth once daily.^Disp: 90 tablet^Rfl: 1 FAMILY HISTORY Problem Relation Age of Onset Breast Cancer Mother 74 Heart Brother Diabetes Paternal Grandmother Social History Tobacco Use Smoking status: Former Smokeless tobacco: Never Vaping Use Vaping Use: Never used Substance Use Topics Alcohol use: No Drug use: No ASSESSMENT/PLAN: 1. Burning with urination - ICD9: 788.1, ICD10: R30.0 - UA DIP, URINE (POC) Potential red flag symptoms discussed with the patient. Reviewed appropriate action plan to take ifred flag symptoms occur. Patient agreeable to treatment plan. Patient is going to follow up with urology. Esther Dial APRN.WASH WORKER documented in this encounterGlen[facility]09-12-2023 Miscellaneous Notes* Telephone Encounter - Sarai Ramey LPN - 06/13/2023 8:41 AM EDT Please see pt's mychart message and advise. Sarai Ramey LPN' documented in this encounterGlenbeigh Hospital09-11-2023 Instructions* Patient Instructions* Chelsie Chavis - 06/12/2023 10:26 AM EDT Take doxycycline Return to clinic with no improvement or worsening symptoms documented in this [facility] History of Present illness Narrative* Kathy Jansen APRN.WASH WORKER - 06/12/2023 10:10 AM EDT Chief Complaint Patient presents with: Head Congestion body aches: X 1 week HPI Terri Villar is a 68 year old female who presents here today for Above Complaints.. Pt went to last for 2 days of congestion with clear nasal discharge and was dx with URI, was tested for COVID which was negative, still having symptoms of congestion, body aches, fatigue and sinus headache and bilateral ear pain Denies fevers, cough, SOB, vomiting, diarrhea, sore throat. States seasonal allergies and uses flonase and been taking tylenol with no relief Past medical history, appointments, medications, allergies reviewed. Previous Medical History PAST MEDICAL HISTORY Diagnosis Date Chronic kidney disease, stage III (moderate) (HCC) DDD (degenerative disc disease), cervical Dr Morfin History of COVID-19 07/12/202106/2021 MTHFR mutation Osteoarthritis Previous Surgical History PAST SURGICAL HISTORY Procedure Laterality Date DELIVERY ONLY 10/02/1984 , low transverse Family History FAMILY HISTORY Problem Relation Age of Onset Breast Cancer Mother 74 Heart Brother Diabetes Paternal Grandmother Patient Allergies ALLERGIES Allergen Reactions Amoxicillin Itching Asa [Salicylates] Itching Codeine Itching Cortizone-10 [[place]* Itching Cymbalta [Duloxetin* Intolerance One pill: bruning all over Dolibid [Other] Itching Duricef [Cefadroxil] Itching Dye Shortness of Breath Ct dye. Including rash Entex La [Phenyleph* Itching Erythromycin Itching Flu Vac 2014 (65 Up* Shortness of Breath Keflex [Cephalexin] Itching Levaquin [Levofloxa* Other: See Comments itching Macrobid [Nitrofura* Other: See Comments Fast heart rate Mobic [Meloxicam] Itching Morphine Itching Penicillins Hives Prednisolone Other: See Comments Elevated blood pressure. Has done well with medrol dose april. Prilosec [Omeprazol* Itching Septra [Sulfamethox* Hives Sulfa (Sulfonamide * Hives Tetracycline Hives Can take doxycycline Current Medications Current Outpatient Medications on File Prior to Visit Medication Sig atorvastatin (LIPITOR) 10 mg tablet Take 1 tablet by mouth daily at bedtime. For cholesterol. fluticasone (FLONASE) 50 mcg/actuation nasal spray Use 2 Sprays in each nostril once daily. Rinse mouth after use. cyclobenzaprine (FLEXERIL) 10 mg tablet Take 1 tablet by mouth three times daily as needed. famotidine (PEPCID) 20 mg tablet Take 1 tablet by mouth twice daily. lisinopril (ZESTRIL) 40 mg tablet Take 1 tablet by mouth once daily. Current Facility-Administered Medications on File Prior to Visit Medication perflutren lipid microspheres 1.3 mL in NaCl (PF) 0.9% 10 mL injection (DEFINITY) sodium chloride 0.9 % (flush) 10 mL (BD POSIFLUSH) denosumab 60 mg injection (PROLIA) Social History Social History Tobacco Use Smoking status: Former Smokeless tobacco: Never Vaping Use Vaping Use: Never used Substance Use Topics Alcohol use: No Drug use: No Review of Symptoms REVIEW OF SYSTEMS See HPI EXAM: BP 120/78 Pulse 76 Temp 36.3 C (97.4 F) Resp 14 Wt 50.8 kg (112 lb) BMI 19.22 kg/m General Appearance: Well appearing, alert, in no acute distress, well-hydrated, well nourished.. Head: Normocephalic, no masses, lesions, tenderness or abnormalities. Eyes: Anicteric sclera. Extraocular movements are intact. . Ears: Positive findings: R TM: normal canal erythematous L TM: normal. Nose/Sinuses: Nares normal, septum midline, mucosa normal, + drainage or sinus tenderness. Oropharynx: Lips, mucosa, and tongue normal, teeth and gums normal, normal +erythema to throat Neck: Supple, no adenopathy; thyroid symmetric, normal size, no bruits. Lungs: Lungs clear to auscultation. No wheezing, rhonchi, rales.. Heart: RRR without murmur, gallop, or rubs. No ectopy. Health Maintenance List COLORECTAL CANCER SCREENING due on 09/22/2021 SHINGRIX VACCINE(1 of 2) due on 09/07/2023 COVID-19 VACCINE(2 - Pfizer series) due on 09/07/2023 PNEUMOCOCCAL: 65+(1 - PCV) due on 09/07/2023 MAMMOGRAM due on 11/23/2023 SERUM CREATININE due on 03/18/2024 HEMOGLOBIN/HEMATOCRIT due on 03/18/2024 ANNUAL PCP TEAM CHRONIC DISEASE VISIT due on 06/12/2024 BP CONTROLLED (<130/80) due on 06/12/2024 DIABETES SCREEN due on 03/18/2026 LIPID SCREEN due on 01/19/2028 DTAP,TDAP,TD(2 - Td or Tdap) due on 10/13/2031 BONE DENSITY Completed ADVANCE DIRECTIVE DISCUSSION Completed DEPRESSION ASSESSMENT Completed HEPATITIS C SCREENING Completed INFLUENZA Discontinued ASSESSMENT/PLAN: 1. Acute non-recurrent maxillary sinusitis - ICD9: 461.0, ICD10: J01.00 - DOXYCYCLINE HYCLATE 100 MG TABLET Chelsie Chavis I have personally seen and examined the patient and performed the medical- decision making components. I have reviewed the Advanced Practice Registered Nurse (FIELD MECHANIC) student's documentation and verified the findings in the note as written. Any additions or changes are noted in bold/italics. Kathy Jansen APRN.WASH WORKER documented [facility] History of Present illness Narrative* Kecia Cottrell APRN.WASH WORKER - 06/07/2023 9:06 AM EDT Subjective Cough Associated symptoms include headaches. Pertinent negatives include no chills, no ear pain, no sore throat and no shortness of breath. Terri Villar is a 68 year old female who presents with 2 days of sinus congestion and drainage, dry cough, and headache. She has not had a fever. She has been using flonase and tylenol at home for symptoms. No known sick contacts. Review of Systems Constitutional: Negative for chills, fever and malaise/fatigue. HENT: Negative for congestion, ear pain, sinus pain and sore throat. Respiratory: Positive for cough. Negative for shortness of breath. Cardiovascular: Negative. Neurological: Positive for headaches. BP 130/80 Pulse 67 Temp 36.4 C (97.6 F) (Tympanic) Resp 18 Wt 50.1 kg (110 lb 6.4 oz) SpO2 98% BMI 18.95 kg/m PAST MEDICAL HISTORY Diagnosis Date Chronic kidney disease, stage III (moderate) (HCC) DDD (degenerative disc disease), cervical Dr oMrfin History of COVID-19 07/12/202106/2021 MTHFR mutation Osteoarthritis PAST SURGICAL HISTORY Procedure Laterality Date DELIVERY ONLY 10/02/1984 , low transverse ALLERGIES Amoxicillin, Asa [Salicylates], Codeine, Cortizone-10 [Hydrocortisone], Cymbalta [Duloxetine], Dolibid [Other], Duricef [Cefadroxil], Dye, Entex La [Phenylephrine-Guaifenesin], Erythromycin, Flu Vac 2015 (65 Up)- Mf59c(Pf), Keflex [Cephalexin], Levaquin [Levofloxacin], Macrobid [Nitrofurant oin Monohyd/M-Cryst], Mobic [Meloxicam], Morphine, Penicillins, Prednisolone, Prilosec [Omeprazole], Septra [Sulfamethoxazole-Trimethoprim], Sulfa (Sulfonamide Antibiotics), and Tetracycline MEDICATIONS methylPREDNISolone (MEDROL, APRIL,) 4 mg Dose-Pack^Follow dosing instructions, take with food.^Disp: 21 tablet^Rfl: 0 atorvastatin (LIPITOR) 10 mg tablet^Take 1 tablet by mouth daily at bedtime. For cholesterol.^Disp:90 tablet^Rfl: 3 fluticasone (FLONASE) 50 mcg/actuation nasal spray^Use 2 Sprays in each nostril once daily. Rinse mouth after use.^Disp: 3 Each^Rfl: 3 cyclobenzaprine (FLEXERIL) 10 mg tablet^Take 1 tablet by mouth three times daily as needed.^Disp: 30 tablet^Rfl: 0 famotidine (PEPCID) 20 mg tablet^Take 1 tablet by mouth twice daily.^Disp: 60 tablet^Rfl: 5 lisinopril (ZESTRIL) 40 mg tablet^Take 1 tablet by mouth once daily.^Disp: 90 tablet^Rfl: 1 FAMILY HISTORY Problem Relation Age of Onset Breast Cancer Mother 74 Heart Brother Diabetes Paternal Grandmother Social History Tobacco Use Smoking status: Former Smokeless tobacco: Never Vaping Use Vaping Use: Never used Substance Use Topics Alcohol use: No Drug use: No Objective Physical Exam Vitals and nursing note reviewed. Constitutional: General: She is not in acute distress. Appearance: Normal appearance. She is not ill-appearing. HENT: Right Ear: Tympanic membrane, ear canal and external ear normal. Left Ear: Tympanic membrane, ear canal and external ear normal. Nose: Congestion and rhinorrhea present. Mouth/Throat: Mouth: Mucous membranes are moist. Pharynx: Uvula midline. No oropharyngeal exudate or posterior oropharyngeal erythema. Cardiovascular: Rate and Rhythm: Normal rate and regular rhythm. Heart sounds: Normal heart sounds. Pulmonary: Effort: Pulmonary effort is normal. No respiratory distress. Breath sounds: Normal breath sounds. No wheezing or rales. Musculoskeletal: Cervical back: Neck supple. Lymphadenopathy: Cervical: No cervical adenopathy. Skin: General: Skin is warm and dry. Findings: No erythema or rash. Neurological: Mental Status: She is alert. ASSESSMENT/PLAN: 1. Viral URI - ICD9: 465.9, ICD10: J06.9 - Discussed viral etiology and rationale for treatment. - Symptomatic treatment with prn analgesia - Supportive care with fluids and rest - The patient may also use flonase, tylenol, and CORICIDIN HBP. - Follow-up with your PCP in 3-5 days if symptoms have not improved or sooner if symptoms worsen - Discussed red flags and need for immediate medical evaluation if any occur. - Discussed supportive care treatment with fluids, rest and analgesia. - Discussed expected course of illness Kecia Cottrell APRN.CNP documented [facility] Instructions* Patient Instructions* Kecia Cottrell APRN.CNP - 06/07/2023 9:06 AM EDT ASSESSMENT/PLAN: 1. Viral URI - ICD9: 465.9, ICD10: J06.9 - Discussed viral etiology and rationale for treatment. - Symptomatic treatment with prn analgesia - Supportive care with fluids and rest - The patient may also use flonase, tylenol, and CORICIDIN HBP. - Follow-up with your PCP in 3-5 days if symptoms have not improved or sooner if symptoms worsen - Discussed red flags and need for immediate medical evaluation if any occur. - Discussed supportive care treatment with fluids, rest and analgesia. - Discussed expected course of illness Kecia Praisler-Wood, FIELD MECHANIC.WASH WORKER Treatment for Viral Upper Respiratory Tract Infections Your body will kill off the virus by itself. Additionally, you can prime your body's immune system.This may help you get better more quickly. Drink lots of fluids Make sure you are eating well Get plenty of rest We do not have any medications that kill off these viruses. Antibiotics are used to treat bacterialinfections; however, they are not active against viral infections. There are some things that mighthelp you feel better, though. Vaporizers, humidifiers, hot showers, and hot fluids help open respiratory and sinus passages Grimes Nasal [place] may offer relief of nasal and head congestion Dangelo's Vapor Rub may relieve congestion Tylenol and Advil help control fevers and headaches Salt water gargles help relieve sore throats Chloraceptic spray or throat lozenges may also help relieve sore throat symptoms Occasionally, viral infections turn into something more serious. You should see your doctor or return to the Urgent Care if: You have fevers for longer than five days You have fevers above 102 degrees You are still sick after 10 days You have shortness of breath or wheezing After several days you are getting worse rather than better documented [facility] encounter[facility] History of Present illness Narrative* Bridget De Luna MD - 06/01/2023 11:32 AM EDT Patient presents with: Back Pain: Lumbar pain causing legs to be weak HPI: Patient presents today for office visit for back pain causing legs to be weak X 2 days. Refers to pain being in lumbar region. Using ibu, flexeril. Legs are not painful No numbness No problems controlling bowel or bladder. No urinary issues. Has had imaging. Has been referred to pain management in the past for same. IMPRESSION: Lumbar spine degenerative changes with multilevel disc space Has seen spin med. narrowing. MEDICATIONS: Current Outpatient Medications Medication Sig atorvastatin (LIPITOR) 10 mg tablet Take 1 tablet by mouth daily at bedtime. For cholesterol. fluticasone (FLONASE) 50 mcg/actuation nasal spray Use 2 Sprays in each nostril once daily. Rinse mouth after use. cyclobenzaprine (FLEXERIL) 10 mg tablet Take 1 tablet by mouth three times daily as needed. famotidine (PEPCID) 20 mg tablet Take 1 tablet by mouth twice daily. lisinopril (ZESTRIL) 40 mg tablet Take 1 tablet by mouth once daily. Current Facility-Administered Medications Medication Dose Route Frequency perflutren lipid microspheres 1.3 mL in NaCl (PF) 0.9% 10 mL injection (DEFINITY) INTRAVENOUS DIRECTED PRN sodium chloride 0.9 % (flush) 10 mL (BD POSIFLUSH) 10 mL INTRAVENOUS DIRECTED PRN denosumab 60 mg injection (PROLIA) 60 mg SUBCUTANEOUS Q 6 MONTH ALLERGIES: ALLERGIES Allergen Reactions Amoxicillin Itching Asa [Salicylates] Itching Codeine Itching Cortizone-10 [[place]* Itching Cymbalta [Duloxetin* Intolerance One pill: bruning all over Dolibid [Other] Itching Duricef [Cefadroxil] Itching Dye Shortness of Breath Ct dye. Including rash Entex La [Phenyleph* Itching Erythromycin Itching Flu Vac 2014 (65 Up* Shortness of Breath Keflex [Cephalexin] Itching Levaquin [Levofloxa* Other: See Comments itching Macrobid [Nitrofura* Other: See Comments Fast heart rate Mobic [Meloxicam] Itching Morphine Itching Penicillins Hives Prednisolone Other: See Comments Elevated blood pressure. Has done well with medrol dose april. Prilosec [Omeprazol* Itching Septra [Sulfamethox* Hives Sulfa (Sulfonamide * Hives Tetracycline Hives Can take doxycycline PAST MEDICAL HISTORY Diagnosis Date Chronic kidney disease, stage III (moderate) (HCC) DDD (degenerative disc disease), cervical Dr Navjot History of COVID-19 07/12/202106/2021 MTHFR mutation Osteoarthritis PAST SURGICAL HISTORY Procedure Laterality Date DELIVERY ONLY 10/02/1984 , low transverse FAMILY HISTORY Problem Relation Age of Onset Breast Cancer Mother 74 Heart Brother Diabetes Paternal Grandmother Social History Tobacco Use Smoking status: Former Smokeless tobacco: Never Vaping Use Vaping Use: Never used Substance Use Topics Alcohol use: No Drug use: No Reviewed current medications, allergies, past medical history, surgical history, family history andsocial history today. REVIEW OF SYSTEMS All other reviewed and negative other than HPI. HEALTH MAINTENANCE: Reviewed health maintenance issues today and recommended the following in detail. COLORECTAL CANCER SCREENING due on 09/22/2021 VITALS: BP 129/74 Pulse 86 Ht 162.6 cm (5' 4) Wt 51.5 kg (113 lb 9.6 oz) BMI 19.50 kg/m Last 4 Encounter Wt Readings: Date: Wt: 05/18/2023 50.5 kg (111 lb 6.4 oz) 05/08/2023 51.3 kg (113 lb) 04/27/2023 51.3 kg (113 lb 3.2 oz) 04/07/2023 49.4 kg (109 lb) PHYSICAL EXAMINATION: General appearance: Well appearing, alert, in no acute distress, well-hydrated, well nourished. Skin: Skin color, texture, turgor normal, no suspicious rashes or lesions BACK: Normal curvature of spine. Mild tenderness across lower back. Straight leg test negative. Deep tendon reflexes 2+/4 at patellas. Normal lower extremity strength. ASSESSMENT/PLAN: 1. DDD (degenerative disc disease), lumbar - ICD9: 722.52, ICD10: M51.36 (primary diagnosis) - Discussed risks and benefits of new medication with the patient. Advised them to call if any sideeffects or questions. Red flags for re-assessment reviewed with patient in detail. Call if symptoms worsen at all or if not better in one to two weeks Reviewed diagnosis and treatment options in detail. Questions were answered. Patient expressed understanding of treatment plan. - CONSULT TO PHYSICAL THERAPY - METHYLPREDNISOLONE 4 MG TABLETS IN A DOSE PACK-does ok with medrol. 2. Primary hypertension - ICD9: 401.9, ICD10: I10 - bp is good. Bridget De Luna MD documented in this encounterG[facility]08-25-2023 Miscellaneous Notes* Telephone Encounter - Daylin Booker LPN - 05/26/2023 10:27 AM EDT Patient has been identified by name and date of : Yes Patient phones for refill(s): Requested Prescriptions Pending Prescriptions Disp Refills atorvastatin (LIPITOR) 10 mg tablet 90 tablet 3 Sig: Take 1 tablet by mouth daily at bedtime. For cholesterol. Date of last office visit in primary care: 05/23/2023 Please advise. Thank you. Daylin Booker LPN documented in this encounterG[facility]08-22-2023 Instructions* Patient Instructions* Herlinda Jett APRN.WILFREDO - 05/23/2023 10:18 AM EDT Schedule with Dr. Ling over at [facility]. Stay well hydrated. documented in this encounterG[facility]08-22-2023 History of Present illness Narrative* Herlinda Jett APRN.WILFREDO - 05/23/2023 10:05 AM EDT This is a 68 year old female who presents today with: Patient presents with: UTI: Burning with urination and back pain x2 weeks HISTORY OF PRESENT ILLNESS: Terri Villar is a 68 year old female. Patient presents with: UTI: Burning with urination and back pain x2 weeks Pt presents today with complaint of burning after urination X 2 weeks and lower left back pain. Was seen for similar 5 days ago. Presents with spouse. Should be noted that patient recently had pelvic ultrasound which did show thickened endometrium. She was to follow-up with [facility] to get scheduled for hysteroscopy. She has not done this yet. She denies any abnormal vaginal bleeding. PAST MEDICAL HISTORY: PAST MEDICAL HISTORY Diagnosis Date Chronic kidney disease, stage III (moderate) (HCC) DDD (degenerative disc disease), cervical Dr Morfin History of COVID-19 07/12/202106/2021 MTHFR mutation Osteoarthritis PAST SURGICAL HISTORY Procedure Laterality Date DELIVERY ONLY 10/02/1984 , low transverse ALLERGIES Amoxicillin, Asa [Salicylates], Codeine, Cortizone-10 [Hydrocortisone], Cymbalta [Duloxetine], Dolibid [Other], Duricef [Cefadroxil], Dye, Entex La [Phenylephrine-Guaifenesin], Erythromycin, Flu Vac 2015 (65 Up)- Mf59c(Pf), Keflex [Cephalexin], Levaquin [Levofloxacin], Macrobid [Nitrofurant oin Monohyd/M-Cryst], Mobic [Meloxicam], Morphine, Penicillins, Prednisolone, Prilosec [Omeprazole], Septra [Sulfamethoxazole-Trimethoprim], Sulfa (Sulfonamide Antibiotics), and Tetracycline MEDICATIONS Current Outpatient Medications Medication Sig fluticasone (FLONASE) 50 mcg/actuation nasal spray Use 2 Sprays in each nostril once daily. Rinse mouth after use. cyclobenzaprine (FLEXERIL) 10 mg tablet Take 1 tablet by mouth three times daily as needed. famotidine (PEPCID) 20 mg tablet Take 1 tablet by mouth twice daily. lisinopril (ZESTRIL) 40 mg tablet Take 1 tablet by mouth once daily. atorvastatin (LIPITOR) 10 mg tablet Take 1 tablet by mouth daily at bedtime. For cholesterol. Current Facility-Administered Medications Medication Dose Route Frequency perflutren lipid microspheres 1.3 mL in NaCl (PF) 0.9% 10 mL injection (DEFINITY) INTRAVENOUS DIRECTED PRN sodium chloride 0.9 % (flush) 10 mL (BD POSIFLUSH) 10 mL INTRAVENOUS DIRECTED PRN denosumab 60 mg injection (PROLIA) 60 mg SUBCUTANEOUS Q 6 MONTH FAMILY HISTORY Problem Relation Age of Onset Breast Cancer Mother 74 Heart Brother Diabetes Paternal Grandmother Social History Tobacco Use Smoking status: Former Smokeless tobacco: Never Vaping Use Vaping Use: Never used Substance Use Topics Alcohol use: No Drug use: No EXAM: BP 124/90 Pulse 69 Resp 16 SpO2 97% PHYSICAL EXAM: General Appearance: Well appearing, alert, in no acute distress, well-hydrated, well nourished.. Skin: Skin color, texture, turgor normal, no suspicious rashes or lesions. Head: Normocephalic, no masses, lesions, tenderness or abnormalities. Eyes: Anicteric sclera. Extraocular movements are intact. . Lungs: Lungs clear to auscultation. No wheezing, rhonchi, rales.. Heart: RRR without murmur, gallop, or rubs. No ectopy. Extremities: No deformities, edema, skin discoloration, clubbing or cyanosis. Good capillary refill. . Neurologic: Gait normal. ASSESSMENT/PLAN: 1. Pelvic pain - ICD9: [id number], ICD10: R10.2 (primary diagnosis) 2. Dysuria - ICD9: 788.1, ICD10: R30.0 3. Chronic left-sided low back pain without sciatica - ICD9: 724.2, 338.29, ICD10: M54.50, G89.29 Urine dip was negative. Sent for culture. Reports pelvic pain/burning after urination. Continues with left lower back pain. Discussed with patient that she does need to follow-up with [facility] for further evaluation of the thickened endometrium. She will schedule with [facility] for follow-up. Discussed treatment plan and patient voices understanding. Patient's questions answered appropriately. Medications and potential side effects were discussed and patient voices understanding. Return to the office as scheduled or as needed for worsening/no improvement. Herlinda Jett APRN.WASH WORKER documented in this encounterGlen[facility] Hospital08-21-2023 Miscellaneous Notes* Telephone Encounter - Isaac Sanchez LPN - 05/22/2023 9:00 AM EDT Patient phones requesting refills as follows: Requested Prescriptions Pending Prescriptions Disp Refills fluticasone (FLONASE) 50 mcg/actuation nasal spray 3 Each 3 Sig: Use 2 Sprays in each nostril once daily. Rinse mouth after use. Please review and advise. Isaac Sanchez LPN documented in this encounterGlen[facility] Hospital08-17-2023 History of Present illness Narrative* Bridget De Luna MD - 05/18/2023 11:23 AM EDT Patient presents with: Flank Pain HPI: Patient presents today for office visit for flank pain on left side. Ongoing since last night.Refers to pain keeping her awake. Denies urinary symptoms. No fever. Some nausea. No vomiting. Denies burning, urgency or frequency. No gross hematuria. No radicular symptosm. Did have some congestion Is getting better. Home covid was negative. No cough No shortness of breath. MEDICATIONS: Current Outpatient Medications Medication Sig famotidine (PEPCID) 20 mg tablet Take 1 tablet by mouth twice daily. fluticasone (FLONASE) 50 mcg/actuation nasal spray Use 2 Sprays in each nostril once daily. Rinse mouth after use. lisinopril (ZESTRIL) 40 mg tablet Take 1 tablet by mouth once daily. atorvastatin (LIPITOR) 10 mg tablet Take 1 tablet by mouth daily at bedtime. For cholesterol. Current Facility-Administered Medications Medication Dose Route Frequency perflutren lipid microspheres 1.3 mL in NaCl (PF) 0.9% 10 mL injection (DEFINITY) INTRAVENOUS DIRECTED PRN sodium chloride 0.9 % (flush) 10 mL (BD POSIFLUSH) 10 mL INTRAVENOUS DIRECTED PRN denosumab 60 mg injection (PROLIA) 60 mg SUBCUTANEOUS Q 6 MONTH ALLERGIES: ALLERGIES Allergen Reactions Amoxicillin Itching Asa [Salicylates] Itching Codeine Itching Cortizone-10 [[place]* Itching Cymbalta [Duloxetin* Intolerance One pill: bruning all over Dolibid [Other] Itching Duricef [Cefadroxil] Itching Dye Shortness of Breath Ct dye. Including rash Entex La [Phenyleph* Itching Erythromycin Itching Flu Vac 2014 (65 Up* Shortness of Breath Keflex [Cephalexin] Itching Levaquin [Levofloxa* Other: See Comments itching Macrobid [Nitrofura* Other: See Comments Fast heart rate Mobic [Meloxicam] Itching Morphine Itching Penicillins Hives Prednisolone Other: See Comments Elevated blood pressure. Has done well with medrol dose april. Prilosec [Omeprazol* Itching Septra [Sulfamethox* Hives Sulfa (Sulfonamide * Hives Tetracycline Hives Can take doxycycline PAST MEDICAL HISTORY Diagnosis Date Chronic kidney disease, stage III (moderate) (HCC) DDD (degenerative disc disease), cervical Dr Navjot History of COVID-19 07/12/202106/2021 MTHFR mutation Osteoarthritis PAST SURGICAL HISTORY Procedure Laterality Date DELIVERY ONLY 10/02/1984 , low transverse FAMILY HISTORY Problem Relation Age of Onset Breast Cancer Mother 74 Heart Brother Diabetes Paternal Grandmother Social History Tobacco Use Smoking status: Former Smokeless tobacco: Never Vaping Use Vaping Use: Never used Substance Use Topics Alcohol use: No Drug use: No Reviewed current medications, allergies, past medical history, surgical history, family history andsocial history today. REVIEW OF SYSTEMS All other reviewed and negative other than HPI. HEALTH MAINTENANCE: Reviewed health maintenance issues today and recommended the following in detail. COLORECTAL CANCER SCREENING due on 09/22/2021 VITALS: BP 144/78 Pulse 78 Temp 36.4 C (97.6 F) Ht 162.6 cm (5' 4) Wt 50.5 kg (111 lb 6.4 oz) SpO2 99% BMI 19.12 kg/m Last 4 Encounter Wt Readings: Date: Wt: 05/08/2023 51.3 kg (113 lb) 04/27/2023 51.3 kg (113 lb 3.2 oz) 04/07/2023 49.4 kg (109 lb) 04/06/2023 50.3 kg (111 lb) PHYSICAL EXAMINATION: General appearance: Well appearing, alert, in no acute distress, well-hydrated, well nourished. Skin: Skin color, texture, turgor normal, no suspicious rashes or lesions Back: tender in left lower back /. Appears muscular. Lungs: Lungs clear to auscultation. No wheezing, rhonchi, rales Heart: RRR without murmur, gallop, or rubs. No ectopy Abdomen: Normal abdominal exam, Abdomen soft, non-tender. Bowel sounds normal. No masses, organomegaly Neuro: Gait normal. Reflexes normal and symmetric. Sensation grossly intact. ASSESSMENT/PLAN: 1. Acute midline low back pain without sciatica - ICD9: 724.2, ICD10: M54.50 - Discussed risks and benefits of new medication with the patient. Advised them to call if any sideeffects or questions. Red flags for re-assessment reviewed with patient in detail. Call if symptoms worsen at all or if not better in one to two weeks Reviewed diagnosis and treatment options in detail. Questions were answered. Patient expressed understanding of treatment plan. - UA DIP, URINE (POC) - URINALYSIS, WITH MICROSCOPIC - URINE CULTURE - CYCLOBENZAPRINE 10 MG TABLET Bridget De Luna MD Bp check in one month documented in this encounterG[facility]23 Miscellaneous Notes* Telephone Encounter - Bridget De Luna MD - 05/12/2023 4:33 PM EDT It was supposed to have been sent, it was ordered. * Telephone Encounter - April Garcia Ma - 05/12/2023 3:57 PM EDT Urine culture was not done. Please advise if this was suppose to be done or if pt should come to the lab and give urine? April Garcia Ma documented in this encounterGlen[facility]07-27-2023 History of Present illness Narrative* Bridget De Luna MD - 04/27/2023 11:23 AM EDT Patient presents with: Pain (Shoulder Pain): Left shoulder pain since this morning HPI: Patient presents today for office visit for left shoulder pain since this morning. She woke upand noticed her shoulder felt sore when touched. Can barely move it. No injury. Refers to pain being sharp and sore. Not sure if she slept on it wrong. No swelling, redness or warmth. No rash. Has neck issues No radicular symptoms. MEDICATIONS: Current Outpatient Medications Medication Sig famotidine (PEPCID) 20 mg tablet Take 1 tablet by mouth twice daily. folic acid 1 mg tablet Take 1 tablet by mouth once daily. fluticasone (FLONASE) 50 mcg/actuation nasal spray Use 2 Sprays in each nostril once daily. Rinse mouth after use. lisinopril (ZESTRIL) 40 mg tablet Take 1 tablet by mouth once daily. atorvastatin (LIPITOR) 10 mg tablet Take 1 tablet by mouth daily at bedtime. For cholesterol. acetaminophen (TYLENOL ARTHRITIS ORAL) Take by mouth. Current Facility-Administered Medications Medication Dose Route Frequency perflutren lipid microspheres 1.3 mL in NaCl (PF) 0.9% 10 mL injection (DEFINITY) INTRAVENOUS DIRECTED PRN sodium chloride 0.9 % (flush) 10 mL (BD POSIFLUSH) 10 mL INTRAVENOUS DIRECTED PRN denosumab 60 mg injection (PROLIA) 60 mg SUBCUTANEOUS Q 6 MONTH ALLERGIES: ALLERGIES Allergen Reactions Amoxicillin Itching Asa [Salicylates] Itching Codeine Itching Cortizone-10 [[place]* Itching Cymbalta [Duloxetin* Intolerance One pill: bruning all over Dolibid [Other] Itching Duricef [Cefadroxil] Itching Dye Shortness of Breath Ct dye. Including rash Entex La [Phenyleph* Itching Erythromycin Itching Flu Vac 2014 (65 Up* Shortness of Breath Keflex [Cephalexin] Itching Levaquin [Levofloxa* Other: See Comments itching Macrobid [Nitrofura* Other: See Comments Fast heart rate Mobic [Meloxicam] Itching Morphine Itching Penicillins Hives Prednisolone Other: See Comments Elevated blood pressure. Has done well with medrol dose april. Prilosec [Omeprazol* Itching Septra [Sulfamethox* Hives Sulfa (Sulfonamide * Hives Tetracycline Hives Can take doxycycline PAST MEDICAL HISTORY Diagnosis Date Chronic kidney disease, stage III (moderate) (HCC) DDD (degenerative disc disease), cervical Dr Morfin History of COVID-19 07/12/202106/2021 MTHFR mutation Osteoarthritis PAST SURGICAL HISTORY Procedure Laterality Date DELIVERY ONLY 10/02/1984 , low transverse FAMILY HISTORY Problem Relation Age of Onset Breast Cancer Mother 74 Heart Brother Diabetes Paternal Grandmother Social History Tobacco Use Smoking status: Former Smokeless tobacco: Never Vaping Use Vaping Use: Never used Substance Use Topics Alcohol use: No Drug use: No Reviewed current medications, allergies, past medical history, surgical history, family history andsocial history today. REVIEW OF SYSTEMS All other reviewed and negative other than HPI. HEALTH MAINTENANCE: Reviewed health maintenance issues today and recommended the following in detail. COLORECTAL CANCER SCREENING next month. VITALS: BP 118/66 Pulse 87 Ht 162.6 cm (5' 4) Wt 51.3 kg (113 lb 3.2 oz) SpO2 98% BMI 19.43 kg/m Last 4 Encounter Wt Readings: Date: Wt: 04/07/2023 49.4 kg (109 lb) 04/06/2023 50.3 kg (111 lb) 03/30/2023 50.8 kg (112 lb) 03/29/2023 50.8 kg (112 lb) PHYSICAL EXAMINATION: General appearance: Well appearing, alert, in no acute distress, well-hydrated, well nourished. Skin: Skin color, texture, turgor normal, no suspicious rashes or lesions Head: Normocephalic, no masses, lesions, tenderness or abnormalities Neck: tender over posterior trap on left. No deformity. Back: Normal exam Shoulder: Location: left Redness: No. Warmth: No. Tenderness to palpation: as above. . Swelling: No. Range of motion: normal. Empty can test: neg ASSESSMENT/PLAN: 1. Sprain of left shoulder, unspecified shoulder sprain type, initial encounter - ICD9: 840.9, ICD10: S43.402A - use her muscle relaxers. Ice and rest. Red flags for re-assessment reviewed with patient in detail. -Call if symptoms worsen at all or if not better in one to two weeks Medical Decision Making: Problems: Minimal: Self-limited or minor problem Risk: Moderate: Drug management Medical Decision Making Level: 2 - Straightforward Bridget De Luna MD documented in this encounterGlen[facility]07-11-2023 History of Present illness Narrative* Sarai Shields RT(R) - 04/11/2023 3:40 PM EDT Radiology Service Progress Note PATIENT NAME: Terri Villar DATE OF SERVICE: April 11, 2023 TIME: 4:05 PM PATIENT IDENTITY VERIFICATION COMPLETED USING TWO (2) IDENTIFIERS: Name and Date of confirmedby patient verbally. FALL SCREENING: Has the patient had 2 falls in the last year or 1 fall with injury or currently using an Ambulatory Assistive Device (Walker, Cane, Wheelchair, Crutches, etc.)? No PATIENT GENDER DATA: Female. status: : No status: NO. PATIENT RELEVANT IMPLANT DATA REVIEWED: Yes RADIOLOGY DEPARTMENT: CT; Exam(s) Completed: Chest PERIPHERAL IV DATA: Not applicable SIGNED BY: RT Anna(R) April 11, 2023 4:05 PM documented in this encounterGlenbeigh Hospital07-07-2023 Instructions* Patient Instructions* Cher Crabtree APRN.CNP - 04/07/2023 12:54 PM EDT Use nausea medication as needed. Stay well hydrated Recommend eating a bland diet, advance as tolerated. Red flag symptoms of dizziness or heart racing go to ER. Follow up as needed. documented in this encounterGlen[facility] Hospital07-07-2023 History of Present illness Narrative* Cher Crabtree APRN.CNP - 04/07/2023 12:49 PM EDT This is a 68 year old female who presents today with: Patient presents with: Acute Visit: headache, diarrhea HISTORY OF PRESENT ILLNESS: Terri Villar is a 68 year old female. Patient presents with: Acute Visit: headache, diarrhea Patient of Dr. De Luna here in the office for diarrhea and nausea. Started yesterday, was seen in [facility] care. Had semisoft stool yesterday, 2 episodes. Today had 3 episodes of watery diarrhea. Feels nauseous, but no vomiting. Has Zofran at home, however has not taken this yet. Denies any dizziness, p alpitations, abdominal pain. Refers that stool is not foul. PAST MEDICAL HISTORY: PAST MEDICAL HISTORY Diagnosis Date Chronic kidney disease, stage III (moderate) (HCC) DDD (degenerative disc disease), cervical Dr Morfin History of COVID-19 07/12/202106/2021 MTHFR mutation Osteoarthritis PAST SURGICAL HISTORY Procedure Laterality Date DELIVERY ONLY 10/02/1984 , low transverse ALLERGIES Amoxicillin, Asa [Salicylates], Codeine, Cortizone-10 [Hydrocortisone], Cymbalta [Duloxetine], Dolibid [Other], Duricef [Cefadroxil], Dye, Entex La [Phenylephrine-Guaifenesin], Erythromycin, Flu Vac 2014 (65 Up)- Mf59c(Pf), Keflex [Cephalexin], Levaquin [Levofloxacin], Macrobid [Nitrofurant oin Monohyd/M-Cryst], Mobic [Meloxicam], Morphine, Penicillins, Prednisolone, Prilosec [Omeprazole], Septra [Sulfamethoxazole-Trimethoprim], Sulfa (Sulfonamide Antibiotics), and Tetracycline MEDICATIONS Current Outpatient Medications Medication Sig folic acid 1 mg tablet Take 1 tablet by mouth once daily. famotidine (PEPCID) 20 mg tablet Take 1 tablet by mouth twice daily. fluticasone (FLONASE) 50 mcg/actuation nasal spray Use 2 Sprays in each nostril once daily. Rinse mouth after use. lisinopril (ZESTRIL) 40 mg tablet Take 1 tablet by mouth once daily. sucralfate (CARAFATE) 1 gram tablet Take 1 tablet by mouth four times daily. atorvastatin (LIPITOR) 10 mg tablet Take 1 tablet by mouth daily at bedtime. For cholesterol. acetaminophen (TYLENOL ARTHRITIS ORAL) Take by mouth. Current Facility-Administered Medications Medication Dose Route Frequency perflutren lipid microspheres 1.3 mL in NaCl (PF) 0.9% 10 mL injection (DEFINITY) INTRAVENOUS DIRECTED PRN sodium chloride 0.9 % (flush) 10 mL (BD POSIFLUSH) 10 mL INTRAVENOUS DIRECTED PRN denosumab 60 mg injection (PROLIA) 60 mg SUBCUTANEOUS Q 6 MONTH FAMILY HISTORY Problem Relation Age of Onset Breast Cancer Mother 74 Heart Brother Diabetes Paternal Grandmother Social History Tobacco Use Smoking status: Former Smokeless tobacco: Never Vaping Use Vaping Use: Never used Substance Use Topics Alcohol use: No Drug use: No REVIEW OF SYSTEMS GENERAL: No weight loss, malaise or fevers/chills HEENT: Negative for frequent or significant headaches, No changes in hearing or vision. NECK: Negative for lumps, goiter, pain and significant neck swelling RESPIRATORY: Negative for cough, hemoptysis, wheezing, dyspnea or shortness of breath CARDIOVASCULAR: Negative for chest pain, leg swelling, orthopnea, or palpitations GI: + Diarrhea/Nausea : No history of dysuria, frequency or incontinence MUSCULOSKELETAL: Negative for joint pain or swelling. SKIN: Negative for lesions, rash, and itching ENDOCRINE: Negative for cold or heat intolerance, polyuria, polydipsia and goiter NEURO: No history of headaches, syncope, paralysis, seizures or tremors MOOD: Negative for depression, anxiety, or suicidal ideation. EXAM: BP 118/80 Pulse 97 Resp 16 Wt 49.4 kg (109 lb) SpO2 98% BMI 18.71 kg/m PHYSICAL EXAM: General Appearance: Well appearing, alert, in no acute distress, well-hydrated, well nourished. Skin: Skin color, texture, turgor normal, no suspicious rashes or lesions. Head: Normocephalic, no masses, lesions, tenderness or abnormalities. Eyes: Anicteric sclera. Extraocular movements are intact. Lungs: Lungs clear to auscultation. No wheezing, rhonchi, rales. Heart: RRR without murmur, gallop, or rubs. No ectopy. Abdomen: Abdomen soft, non-tender. Bowel sounds hyperactive. No masses, organomegaly. Extremities: No deformities, edema, skin discoloration, clubbing or cyanosis. Good capillary refill. Peripheral Pulses: Normal, Capillary refill <2secs, strong peripheral pulses, Pulses palpable. Neurologic: Gait normal. Sensation grossly intact. ASSESSMENT/PLAN: 1. Viral gastroenteritis - ICD9: 008.8, ICD10: A08.4 - Based off history and exam symptoms consistent with Viral Gastroenteritis. - May use Zofran at home as needed for nausea. - Instructed to stay well-hydrated, eat a bland diet, advance as tolerated. - Red flag symptoms given to patient, she verbalizes understanding when to seek care. - Good hand hygiene. Follow-up as needed or sooner if symptoms get worse or do not improve. Discussed treatment plan and patient voices understanding. Patient's questions answered appropriately. Medications and potential side effects were discussed and patient voices understanding. Cher Crabtree APRN.WILFREDO This note was partially generated using [employer] voice recognition system. Note was reviewed for accuracy. There may be minor misspellings or grammar miscues with [employer] voice recognition. documented in this encounterGlen[facility]07-06-2023 History of Present illness Narrative* Esther Dial APRN.CNP - 04/06/2023 2:04 PM EDT Subjective Patient came in with complaints of 2 semiloose stools. Patient says she ate a very greasy burger last night and thinks that might be the cause but wanted to make sure she was okay. Patient says they were the consistency of a cow harmony exact words. Patient denies any abdominal pain nausea vomiting chills. The history is provided by the patient. No airport shuttle driver was used. Diarrhea Review of Systems Constitutional: Negative. Gastrointestinal: Positive for diarrhea. Skin: Negative. Objective Physical Exam Constitutional: Appearance: Normal appearance. Pulmonary: Effort: Pulmonary effort is normal. Abdominal: General: Abdomen is flat. Bowel sounds are normal. Palpations: Abdomen is soft. Tenderness: There is no abdominal tenderness. Negative signs include Combs's sign, Rovsing's sign and McBurney's sign. Neurological: Mental Status: She is alert. PAST MEDICAL HISTORY Diagnosis Date Chronic kidney disease, stage III (moderate) (HCC) DDD (degenerative disc disease), cervical Dr Navjot History of COVID-19 07/12/202106/2021 MTHFR mutation Osteoarthritis PAST SURGICAL HISTORY Procedure Laterality Date DELIVERY ONLY 10/02/1984 , low transverse ALLERGIES Amoxicillin, Asa [Salicylates], Codeine, Cortizone-10 [Hydrocortisone], Cymbalta [Duloxetine], Dolibid [Other], Duricef [Cefadroxil], Dye, Entex La [Phenylephrine-Guaifenesin], Erythromycin, Flu Vac 2015 (65 Up)- Mf59c(Pf), Keflex [Cephalexin], Levaquin [Levofloxacin], Macrobid [Nitrofurant oin Monohyd/M-Cryst], Mobic [Meloxicam], Morphine, Penicillins, Prednisolone, Prilosec [Omeprazole], Septra [Sulfamethoxazole-Trimethoprim], Sulfa (Sulfonamide Antibiotics), and Tetracycline MEDICATIONS folic acid 1 mg tablet^Take 1 tablet by mouth once daily.^Disp: 30 tablet^Rfl: 11 famotidine (PEPCID) 20 mg tablet^Take 1 tablet by mouth twice daily.^Disp: 60 tablet^Rfl: 0 fluticasone (FLONASE) 50 mcg/actuation nasal spray^Use 2 Sprays in each nostril once daily. Rinse mouth after use.^Disp: 3 Each^Rfl: 3 lisinopril (ZESTRIL) 40 mg tablet^Take 1 tablet by mouth once daily.^Disp: 90 tablet^Rfl: 1 sucralfate (CARAFATE) 1 gram tablet^Take 1 tablet by mouth four times daily.^Disp: 120 tablet^Rfl: 5 atorvastatin (LIPITOR) 10 mg tablet^Take 1 tablet by mouth daily at bedtime. For cholesterol.^Disp:90 tablet^Rfl: 3 acetaminophen (TYLENOL ARTHRITIS ORAL)^Take by mouth.^Disp: ^Rfl: FAMILY HISTORY Problem Relation Age of Onset Breast Cancer Mother 74 Heart Brother Diabetes Paternal Grandmother Social History Tobacco Use Smoking status: Former Smokeless tobacco: Never Vaping Use Vaping Use: Never used Substance Use Topics Alcohol use: No Drug use: No ASSESSMENT/PLAN: 1. Diarrhea, unspecified type - ICD9: 787.91, ICD10: R19.7 Patient was instructed to monitor symptoms for signs of worsening and increase her water intake. Patient was okay with this and will follow-up as needed. Esther Dial APRN.WILFREDO documented in this encounterGlen[facility]06-30-2023 Miscellaneous Notes* Telephone Encounter - Graciela Salguero LPN - 03/31/2023 2:44 PM EDT Patient notified of results, verbalizes understanding of instructions. .Graciela Salguero LPN * Telephone Encounter - Cher Crabtree APRN.CNP - 03/31/2023 2:32 PM EDT Can you please call the patient and let her know that I reviewed her lab results. Vitamin D was low normal, I would ensure that she is getting 2000 international units daily. B12 was normal. Folate was low. This could be causing the burning in her feet. I sent in a prescription for folic acid 1 mg daily. We can recheck lab in 3 months. Please let me know if she has any questions. Thank you. The following approved medication requests have been transmitted electronically. Requested Prescriptions Pending Prescriptions Disp Refills folic acid 1 mg tablet 30 tablet 11 Sig: Take 1 tablet by mouth once daily. Cher Crabtree APRN.WILFREDO documented in this encounterGlenbeigh Hospital06-29-2023 Instructions* Patient Instructions* Cher Crabtree APRN.CNP - 03/30/2023 11:22 AM EDT Get labs completed today Continue supportive care at home. Elevate the legs when possible. Follow up pending test results. documented in this encounterGlenbeigh Hospital06-29-2023 History of Present illness Narrative* Cher Crabtree APRN.CNP - 03/30/2023 11:20 AM EDT This is a 68 year old female who presents today with: Patient presents with: Acute Visit: Bilateral feet burning HISTORY OF PRESENT ILLNESS: Terri Villar is a 68 year old female. Patient presents with: Acute Visit: Bilateral feet burning Patient of Dr. De Luna here in the office for feet pain. Pain is burning sensation. Started today. Both the feet have a tingling/burning sensation. No numbness or injury. CBC and CMP that were completed earlier this month were relatively normal. No signs of anemia or diabetes. PAST MEDICAL HISTORY: PAST MEDICAL HISTORY Diagnosis Date Chronic kidney disease, stage III (moderate) (HCC) DDD (degenerative disc disease), cervical Dr Navjot History of COVID-19 07/12/202106/2021 MTHFR mutation Osteoarthritis PAST SURGICAL HISTORY Procedure Laterality Date DELIVERY ONLY 10/02/1984 , low transverse ALLERGIES Amoxicillin, Asa [Salicylates], Codeine, Cortizone-10 [Hydrocortisone], Cymbalta [Duloxetine], Dolibid [Other], Duricef [Cefadroxil], Dye, Entex La [Phenylephrine-Guaifenesin], Erythromycin, Flu Vac 2015 (65 Up)- Mf59c(Pf), Keflex [Cephalexin], Levaquin [Levofloxacin], Macrobid [Nitrofurant oin Monohyd/M-Cryst], Mobic [Meloxicam], Morphine, Penicillins, Prednisolone, Prilosec [Omeprazole], Septra [Sulfamethoxazole-Trimethoprim], Sulfa (Sulfonamide Antibiotics), and Tetracycline MEDICATIONS Current Outpatient Medications Medication Sig famotidine (PEPCID) 20 mg tablet Take 1 tablet by mouth twice daily. fluticasone (FLONASE) 50 mcg/actuation nasal spray Use 2 Sprays in each nostril once daily. Rinse mouth after use. lisinopril (ZESTRIL) 40 mg tablet Take 1 tablet by mouth once daily. sucralfate (CARAFATE) 1 gram tablet Take 1 tablet by mouth four times daily. atorvastatin (LIPITOR) 10 mg tablet Take 1 tablet by mouth daily at bedtime. For cholesterol. acetaminophen (TYLENOL ARTHRITIS ORAL) Take by mouth. Current Facility-Administered Medications Medication Dose Route Frequency perflutren lipid microspheres 1.3 mL in NaCl (PF) 0.9% 10 mL injection (DEFINITY) INTRAVENOUS DIRECTED PRN sodium chloride 0.9 % (flush) 10 mL (BD POSIFLUSH) 10 mL INTRAVENOUS DIRECTED PRN denosumab 60 mg injection (PROLIA) 60 mg SUBCUTANEOUS Q 6 MONTH FAMILY HISTORY Problem Relation Age of Onset Breast Cancer Mother 74 Heart Brother Diabetes Paternal Grandmother Social History Tobacco Use Smoking status: Former Smokeless tobacco: Never Vaping Use Vaping Use: Never used Substance Use Topics Alcohol use: No Drug use: No REVIEW OF SYSTEMS GENERAL: No weight loss, malaise or fevers/chills HEENT: Negative for frequent or significant headaches, No changes in hearing or vision. NECK: Negative for lumps, goiter, pain and significant neck swelling RESPIRATORY: Negative for cough, hemoptysis, wheezing, dyspnea or shortness of breath CARDIOVASCULAR: Negative for chest pain, leg swelling, orthopnea, or palpitations GI: No nausea, vomiting, or diarrhea/constipation. No hematochezia/melena. No heartburn or reflux symptoms. : No history of dysuria, frequency or incontinence MUSCULOSKELETAL: Negative for joint pain or swelling. SKIN: Negative for lesions, rash, and itching ENDOCRINE: Negative for cold or heat intolerance, polyuria, polydipsia and goiter NEURO: + Burning Feet Bilaterally MOOD: Negative for depression, anxiety, or suicidal ideation. EXAM: BP 110/60 Pulse 85 Resp 16 Wt 50.8 kg (112 lb) SpO2 97% BMI 19.22 kg/m PHYSICAL EXAM: General Appearance: Well appearing, alert, in no acute distress, well-hydrated, well nourished. Skin: Skin color, texture, turgor normal, no suspicious rashes or lesions. Head: Normocephalic, no masses, lesions, tenderness or abnormalities. Eyes: Anicteric sclera. Extraocular movements are intact. Extremities: No deformities, edema, skin discoloration, clubbing or cyanosis. Good capillary refill. Peripheral Pulses: Normal, Capillary refill <2secs, strong peripheral pulses, Pulses palpable. Neurologic: Gait normal. Reflexes normal and symmetric. Sensation grossly intact. Sensitive to monofilament test. Component Latest Ref Rng & Units 03/18/2023 WBC 3.70 - 11.00 k/uL 5.21 RBC 3.90 - 5.20 m/uL 4.60 Hemoglobin 11.5 - 15.5 g/dL 14.3 Hematocrit 36.0 - 46.0 % 44.9 MCV 80.0 - 100.0 fL 97.6 MCH 26.0 - 34.0 pg 31.1 MCHC 30.5 - 36.0 g/dL 31.8 RDW-CV 11.5 - 15.0 % 12.7 Platelet Count 150 - 400 k/uL 222 MPV 9.0 - 12.7 fL 11.0 Neut% % 54.6 Abs Neut (ANC) 1.45 - 7.50 k/uL 2.85 Lymph% % 35.7 Abs Lymph 1.00 - 4.00 k/uL 1.86 Hodgeman% % 8.3 Abs Hodgeman <0.87 k/uL 0.43 Eosin% % 0.6 Abs Eosin <0.46 k/uL 0.03 Baso% % 0.6 Abs Baso <0.11 k/uL 0.03 Immature Gran % % 0.2 IMMATURE GRANS (ABS) <0.10 k/uL <0.03 NRBC /100 WBC 0.0 Absolute nRBC <0.01 k/uL <0.01 DTYPE Auto Protein, Total 6.3 - 8.0 g/dL 6.5 Albumin 3.9 - 4.9 g/dL 3.8 (L) Calcium 8.5 - 10.2 mg/dL 9.5 Bilirubin, Total 0.2 - 1.3 mg/dL 0.7 Alkaline Phosphatase 34 - 123 U/L 83 AST 13 - 35 U/L 22 ALT 7 - 38 U/L 18 Glucose 74 - 99 mg/dL 73 (L) BUN 7 - 21 mg/dL 7 Creatinine 0.58 - 0.96 mg/dL 1.05 (H) Sodium 136 - 144 mmol/L 139 Potassium 3.7 - 5.1 mmol/L 4.4 Chloride 97 - 105 mmol/L 103 CO2 22 - 30 mmol/L 25 Anion Gap 9 - 18 mmol/L 11 eGFR >=60 mL/min/1.73m 57 (L) ASSESSMENT/PLAN: 1. Tingling of both feet - ICD9: 782.0, ICD10: R20.2 - Exam WNL. - VITAMIN B12 BLOOD - FOLATE SERUM - VITAMIN D 25 HYDROXY Follow-up pending test results. Discussed treatment plan and patient voices understanding. Patient's questions answered appropriately. Medications and potential side effects were discussed and patient voices understanding. Cher Crabtree APRN.CNP This note was partially generated using [employer] voice recognition system. Note was reviewed for accuracy. There may be minor misspellings or grammar miscues with [employer] voice recognition. documented in this encounterGlenbeigh Hospital06-29-2023 Miscellaneous Notes* Telephone Encounter - Kelly Peña APRN.CNP - 03/30/2023 8:54 AM EDT Thank you. Kelly Peña APRN.CNP * Telephone Encounter - Madeline Brantley LPN - 03/29/2023 9:26 AM EDT Fyi: Nurse called patient to schedule surgery and patient stated that she did not want to schedule at this time d/t moving and stated that she would have to get back with office and then ended call. * Telephone Encounter - Madeline Brantley LPN - 03/23/2023 1:15 PM EDT Left message to call office. Next available surgery date with Dr. Ling is 04/28/2023. Patient will need a pre-operative appointment with Dr. Ling scheduled. * Telephone Encounter - Sarai Ramey LPN - 03/23/2023 10:55 AM EDT Pt notified and will await further information from the real estate development manager once scheduled. Sarai Ramey LPN * Telephone Encounter - Kelly Peña APRN.CNP - 03/23/2023 10:39 AM EDT Please let the patient know that I am sorry for the delay in getting to her. The doctor that was asked to look at it while I was on vacation was also out of the office for the last several days. Dr Ling reviewed the ultrasound her recommendation is for a hysteroscopy procedure for further evaluation and sampling of the endometrial lining. Kelly Peña APRN.WILFREDO * Telephone Encounter - Sarai Ramey LPN - 03/23/2023 10:13 AM EDT Please see pt's mychart message re: pelvic ultrasound. Sarai Ramey LPN documented in this encounterGlenbeigh Hospital06-22-2023 Miscellaneous Notes* Telephone Encounter - Sarai Ramey LPN - 03/23/2023 11:00 AM EDT See previous mychart message. Sarai Ramey LPN documented in this encounterG[facility]06-19-[facility]23 Miscellaneous Notes* Telephone Encounter - Anaya Lawson MA - 03/20/2023 11:20 AM EDT message sent. Anaya Lawson MA * Telephone Encounter - Anaya Lawson MA - 03/20/2023 11:19 AM EDT ----- Message from Ryan Dalton MD sent at 03/20/2023 8:04 AM EDT ----- Stable kidney function. Other labs normal. Continue treatment for back pain as discussed in office.F/u with PCP PRN. documented in this encounterGlen[facility]06-17-2023 History of Present illness Narrative* Ryan Dalton MD - 03/18/2023 9:00 AM EDT Chief Complaint Patient presents with: Low Back Pain: x1 day with nausea, has gallstones and has seen Dr. Ortega for this but he doesn't think the gallstones could be causing it HPI Terri Villar is a 68 year old female who presents here today for Above Complaints. Patient states that she developed intermittent soreness in her lower back and nausea last night while watching TV. Pain currently 7/10, without radiation. Denies exacerbating symptoms. Treating with ibuprofen and flexeril which does improve her pain. Admits to urinary frequency, flank pain. Denies fever/chills, dysuria, hematuria, urgency, vomiting, diarrhea, abdominal pain, loss of bowel/bladdercontrol, saddle anesthesia, LE weakness. Symptoms unchanged since yesterday. Noted she was in to see Dr. De Luna 2 days ago for rib pain with nausea which was diagnosed with muscle pain and advised to use flexeril PRN. Past medical history, appointments, medications, allergies reviewed. Previous Medical History PAST MEDICAL HISTORY Diagnosis Date Chronic kidney disease, stage III (moderate) (HCC) DDD (degenerative disc disease), cervical Dr Morfin History of COVID-19 07/12/202106/2021 MTHFR mutation Osteoarthritis Previous Surgical History PAST SURGICAL HISTORY Procedure Laterality Date DELIVERY ONLY 10/02/1984 , low transverse Family History FAMILY HISTORY Problem Relation Age of Onset Breast Cancer Mother 74 Heart Brother Diabetes Paternal Grandmother Patient Allergies ALLERGIES Allergen Reactions Amoxicillin Itching Asa [Salicylates] Itching Codeine Itching Cortizone-10 [[place]* Itching Cymbalta [Duloxetin* Intolerance One pill: bruning all over Dolibid [Other] Itching Duricef [Cefadroxil] Itching Dye Shortness of Breath Ct dye. Including rash Entex La [Phenyleph* Itching Erythromycin Itching Flu Vac 2014 (65 Up* Shortness of Breath Keflex [Cephalexin] Itching Levaquin [Levofloxa* Other: See Comments itching Macrobid [Nitrofura* Other: See Comments Fast heart rate Mobic [Meloxicam] Itching Morphine Itching Penicillins Hives Prednisolone Other: See Comments Elevated blood pressure. Has done well with medrol dose april. Prilosec [Omeprazol* Itching Septra [Sulfamethox* Hives Sulfa (Sulfonamide * Hives Tetracycline Hives Can take doxycycline Current Medications Current Outpatient Medications on File Prior to Visit Medication Sig fluticasone (FLONASE) 50 mcg/actuation nasal spray Use 2 Sprays in each nostril once daily. Rinse mouth after use. lisinopril (ZESTRIL) 40 mg tablet Take 1 tablet by mouth once daily. sucralfate (CARAFATE) 1 gram tablet Take 1 tablet by mouth four times daily. atorvastatin (LIPITOR) 10 mg tablet Take 1 tablet by mouth daily at bedtime. For cholesterol. acetaminophen (TYLENOL ARTHRITIS ORAL) Take by mouth. Current Facility-Administered Medications on File Prior to Visit Medication perflutren lipid microspheres 1.3 mL in NaCl (PF) 0.9% 10 mL injection (DEFINITY) sodium chloride 0.9 % (flush) 10 mL (BD POSIFLUSH) denosumab 60 mg injection (PROLIA) Social History Social History Tobacco Use Smoking status: Former Smokeless tobacco: Never Vaping Use Vaping Use: Never used Substance Use Topics Alcohol use: No Drug use: No Review of Symptoms REVIEW OF SYSTEMS See HPI EXAM: BP 124/72 Pulse 83 Temp 37.2 C (98.9 F) Resp 16 Wt 51.1 kg (112 lb 9.6 oz) SpO2 97% BMI19.33 kg/m General Appearance: Well appearing, alert, in no acute distress, well-hydrated, well nourished.. Skin: Skin color, texture, turgor normal, no suspicious rashes or lesions. Back:no pain to palpation of vertebrae, good flexion and extension, good range of motion, reflexes are 2+ and symmetric, motor and sensory appear to be normal, no evidence of scoliosis. Positive for TTP over lumbar paraspinal muscles bilaterally and SLR bilaterally Lungs: Lungs clear to auscultation. No wheezing, rhonchi, rales.. Heart: RRR without murmur, gallop, or rubs. No ectopy. Abdomen: Normal abdominal exam, Abdomen soft, non-tender. Bowel sounds normal. No masses, organomegaly, Negative CVA tenderness. Health Maintenance List COLORECTAL CANCER SCREENING due on 09/22/2021 SHINGRIX VACCINE(1 of 2) due on 09/07/2023 COVID-19 VACCINE(2 - Pfizer series) due on 09/07/2023 PNEUMOCOCCAL: 65+(1 - PCV) due on 09/07/2023 MAMMOGRAM due on 11/23/2023 SERUM CREATININE due on 01/19/2024 HEMOGLOBIN/HEMATOCRIT due on 01/19/2024 ANNUAL PCP TEAM CHRONIC DISEASE VISIT due on 03/16/2024 BP CONTROLLED (<130/80) due on 03/16/2024 DIABETES SCREEN due on 01/18/2026 LIPID SCREEN due on 01/19/2028 DTAP,TDAP,TD(2 - Td or Tdap) due on 10/13/2031 BONE DENSITY Completed ADVANCE DIRECTIVE DISCUSSION Completed DEPRESSION ASSESSMENT Completed HEPATITIS C SCREENING Completed INFLUENZA Discontinued Data reviewed Component Latest Ref Rng & Units 03/18/2023 GLUCOSE UA (POCT) Negative mg/dL Negative BILIRUBIN UA (POCT) Negative Negative KETONE UA (POCT) Negative mg/dL Negative SPECIFIC GRAVITY UA (POCT) 1.005 - 1.030 1.015 HEMOGLOBIN/BLOOD UA (POCT) Negative Negative PH UA (POCT) 4.5 - 8.0 8.5 (A) PROTEIN UA (POCT) Negative mg/dL 30 (A) UROBILINOGEN UA (POCT) Normal E.U./dL 0.2 NITRITE UA (POCT) Negative Negative LEUKOCYTES UA (POCT) Negative Negative COLOR UA (POCT) Yellow CLARITY UA (POCT) Clear ASSESSMENT/PLAN: 1. Acute bilateral low back pain without sciatica - ICD9: 724.2, 338.19, ICD10: M54.50 (primary diagnosis) Acute pain without injury. UA negative for signs of infection or kidney stone without hematuria. Discussed ice/heat, home exercises as given, OTC analgesics PRN. Red flags for re-assessment reviewed with patient in detail. 2. Nausea - ICD9: 787.02, ICD10: R11.0 See above. Obtain labs to rule out infection, recheck renal function, and evaluate for pancreatitis. Refill PPI. Discussed bland diet, pushing PO fluids. Will call with lab results. - UA DIP, URINE (POC) - CBC + DIFF - COMP METABOLIC PANEL - LIPASE BLD 3. GERD without esophagitis - ICD9: 530.81, ICD10: K21.9 - Continue treatment with Pepcid 20 mg BID Ryan Dalton MD documented in this encounterG[facility]06-15-[facility]23 History of Present illness Narrative* Bridget De Luna MD - 03/16/2023 11:08 AM EDT Patient presents with: Abdominal Pain Nausea HPI: Patient presents today for office visit for upper abdominal pain across side of ribs with nausea X 1wk. States the pain causes her to be nauseous. No vomiting. No diarrhea. No chest pain or shortness of breath. They are moving again. Has been lifting boxes. Noted pain on both side of her ribs. Using heating pain Can occasionally get her nauseous. No abd pain. No vomiting. No bowel or urine changes. No shortness of breath No chest pain with exertion. No cough. Worse with movement or bending. She is finally getting her egd and colonoscopy. MEDICATIONS: Current Outpatient Medications Medication Sig fluticasone (FLONASE) 50 mcg/actuation nasal spray Use 2 Sprays in each nostril once daily. Rinse mouth after use. lisinopril (ZESTRIL) 40 mg tablet Take 1 tablet by mouth once daily. sucralfate (CARAFATE) 1 gram tablet Take 1 tablet by mouth four times daily. atorvastatin (LIPITOR) 10 mg tablet Take 1 tablet by mouth daily at bedtime. For cholesterol. acetaminophen (TYLENOL ARTHRITIS ORAL) Take by mouth. Current Facility-Administered Medications Medication Dose Route Frequency perflutren lipid microspheres 1.3 mL in NaCl (PF) 0.9% 10 mL injection (DEFINITY) INTRAVENOUS DIRECTED PRN sodium chloride 0.9 % (flush) 10 mL (BD POSIFLUSH) 10 mL INTRAVENOUS DIRECTED PRN denosumab 60 mg injection (PROLIA) 60 mg SUBCUTANEOUS Q 6 MONTH ALLERGIES: ALLERGIES Allergen Reactions Amoxicillin Itching Asa [Salicylates] Itching Codeine Itching Cortizone-10 [[place]* Itching Cymbalta [Duloxetin* Intolerance One pill: bruning all over Dolibid [Other] Itching Duricef [Cefadroxil] Itching Dye Shortness of Breath Ct dye. Including rash Entex La [Phenyleph* Itching Erythromycin Itching Flu Vac 2014 (65 Up* Shortness of Breath Keflex [Cephalexin] Itching Levaquin [Levofloxa* Other: See Comments itching Macrobid [Nitrofura* Other: See Comments Fast heart rate Mobic [Meloxicam] Itching Morphine Itching Penicillins Hives Prednisolone Other: See Comments Elevated blood pressure. Has done well with medrol dose april. Prilosec [Omeprazol* Itching Septra [Sulfamethox* Hives Sulfa (Sulfonamide * Hives Tetracycline Hives Can take doxycycline PAST MEDICAL HISTORY Diagnosis Date Chronic kidney disease, stage III (moderate) (HCC) DDD (degenerative disc disease), cervical Dr Navjot History of COVID-19 07/12/202106/2021 MTHFR mutation Osteoarthritis PAST SURGICAL HISTORY Procedure Laterality Date DELIVERY ONLY 10/02/1984 , low transverse FAMILY HISTORY Problem Relation Age of Onset Breast Cancer Mother 74 Heart Brother Diabetes Paternal Grandmother Social History Tobacco Use Smoking status: Former Smokeless tobacco: Never Vaping Use Vaping Use: Never used Substance Use Topics Alcohol use: No Drug use: No Reviewed current medications, allergies, past medical history, surgical history, family history andsocial history today. REVIEW OF SYSTEMS No fever. Does have gallstones but no gi issues currently. All other reviewed and negative other than HPI. HEALTH MAINTENANCE: Reviewed health maintenance issues today and recommended the following in detail. COLORECTAL CANCER SCREENING due on 09/22/2021 VITALS: BP 118/68 Pulse 77 Temp 37.1 C (98.7 F) Ht 162.6 cm (5' 4) Wt 52.3 kg (115 lb 3.2 oz) SpO2 99% BMI 19.77 kg/m Last 4 Encounter Wt Readings: Date: Wt: 03/06/2023 51.7 kg (114 lb) 03/02/2023 51.7 kg (114 lb) 02/27/2023 51.3 kg (113 lb) 02/24/2023 51.7 kg (114 lb) PHYSICAL EXAMINATION: General appearance: Well appearing, alert, in no acute distress, well-hydrated, well nourished. Skin: Skin color, texture, turgor normal, no suspicious rashes or lesions Head: Normocephalic, no masses, lesions, tenderness or abnormalities Chest: tender over lateral rib cages bilaterally. No step or instability Lungs: Lungs clear to auscultation. No wheezing, rhonchi, rales Heart: RRR without murmur, gallop, or rubs. No ectopy Abdomen: Normal abdominal exam, Abdomen soft, non-tender. Bowel sounds normal. No masses, organomegaly Extremities: No deformities, edema, skin discoloration, clubbing or cyanosis. Good capillary refill. ASSESSMENT/PLAN: 1. Pain in rib - ICD9: 786.50, ICD10: R07.81 - appears muscular Has flexeril at home. Use prn. Ice/heat prn. Red flags for re-assessment reviewed with patient in detail. - Call if symptoms worsen at all or ifnot better in one to two weeks Bridget De Luna MD documented in this encounterG[facility]06-12-[facility]23 History of Present illness Narrative* Em Madrid RDMI - 03/13/2023 9:15 AM EDT Radiology Service Progress Note PATIENT NAME: Terri Villar DATE OF SERVICE: March 13, 2023 TIME: 11:03 AM PATIENT IDENTITY VERIFICATION COMPLETED USING TWO (2) IDENTIFIERS: Name and Date of confirmedby patient verbally. FALL SCREENING: Has the patient had 2 falls in the last year or 1 fall with injury or currently using an Ambulatory Assistive Device (Walker, Cane, Wheelchair, Crutches, etc.)? No PATIENT GENDER DATA: Female. status: : No status: NO. PATIENT RELEVANT IMPLANT DATA REVIEWED: Not Applicable RADIOLOGY DEPARTMENT: Ultrasound PERIPHERAL IV DATA: Not applicable SIGNED BY: Em Madrid RDMS RVT March 13, 2023 11:03 AM documented in this encounterG[facility]06-05-2023 History of Present illness Narrative* Kelly Peña APRN.WASH WORKER - 03/06/2023 10:57 AM EDT Administration Internship offered: Patient declines. Terri Villar is a 67 year old female who presents for problem visit pelvic pain for several month(s). HPI: pt states that she has see Silvina and she did scope that showed bladder inflammation. Patientstates that she was not given any medication for this. She denies any urine incontinence or burningat this time. Patient describes the pain as menstrual cramps, but denies any bleeding or vaginal symptoms. LMP at age 44. OB History T0 L2 SAB0 IAB0 Ectopic0 Multiple1 Live Births0 Back End Web Developer History LMP: Postmenopausal Age at Menarche: Age at First : Age at Menopause: Back End Web Developer History Comments: Sexual Activity: Yes; Male Contraception: No contraception data on record PAST MEDICAL HISTORY Diagnosis Date Chronic kidney disease, stage III (moderate) (HCC) DDD (degenerative disc disease), cervical Dr Navjot History of COVID-19 07/12/202106/2021 MTHFR mutation Osteoarthritis PAST SURGICAL HISTORY Procedure Laterality Date DELIVERY ONLY 10/02/1984 , low transverse FAMILY HISTORY Problem Relation Age of Onset Breast Cancer Mother 74 Heart Brother Diabetes Paternal Grandmother Social History Tobacco Use Smoking status: Former Smokeless tobacco: Never Vaping Use Vaping Use: Never used Substance Use Topics Alcohol use: No Drug use: No Current Outpatient Medications Medication Sig lisinopril (ZESTRIL) 40 mg tablet Take 1 tablet by mouth once daily. sucralfate (CARAFATE) 1 gram tablet Take 1 tablet by mouth four times daily. fluticasone (FLONASE) 50 mcg/actuation nasal spray Use 2 Sprays in each nostril once daily. Rinse mouth after use. atorvastatin (LIPITOR) 10 mg tablet Take 1 tablet by mouth daily at bedtime. For cholesterol. acetaminophen (TYLENOL ARTHRITIS ORAL) Take by mouth. Current Facility-Administered Medications Medication Dose Route Frequency perflutren lipid microspheres 1.3 mL in NaCl (PF) 0.9% 10 mL injection (DEFINITY) INTRAVENOUS DIRECTED PRN sodium chloride 0.9 % (flush) 10 mL (BD POSIFLUSH) 10 mL INTRAVENOUS DIRECTED PRN denosumab 60 mg injection (PROLIA) 60 mg SUBCUTANEOUS Q 6 MONTH Allergies As of Date: 03/06/2023 Allergen Noted Reaction AMOXICILLIN 11/10/2008 Itching ASA [SALICYLATES] 11/10/2008 Itching CODEINE 11/10/2008 Itching CORTIZONE-10 [HYDROCORTISONE] 11/10/2008 Itching CYMBALTA [DULOXETINE] 11/15/2018 Intolerance DOLIBID [OTHER] 11/10/2008 Itching DURICEF [CEFADROXIL] 11/10/2008 Itching DYE 04/05/2019 Shortness of Breath ENTEX LA [PHENYLEPHRINE-GUAIFENES*11/10/2008 Itching ERYTHROMYCIN 11/10/2008 Itching FLU VAC 2015 (65 UP)-MF59C(PF) 06/30/2021 Shortness of Breath KEFLEX [CEPHALEXIN] 11/10/2008 Itching LEVAQUIN [LEVOFLOXACIN] 01/23/2021 Other: See Comments MACROBID [NITROFURANTOIN MONOHYD/*01/23/2021 Other: See Comments MOBIC [MELOXICAM] 11/21/2017 Itching MORPHINE 11/10/2008 Itching PENICILLINS 11/10/2008 Hives PREDNISOLONE 09/07/2020 Other: See Comments PRILOSEC [OMEPRAZOLE] 08/03/2021 Itching SEPTRA [SULFAMETHOXAZOLE-TRIMETHO*11/10/2008 Hives SULFA (SULFONAMIDE ANTIBIOTICS) 11/10/2008 Hives TETRACYCLINE 09/01/2021 Hives Fully Assessed 03/06/2023 REVIEW OF SYSTEMS SEE HPI. Expanded ROS: N/A Allergies and current medication updated:Yes EXAM: BP 130/76 Wt 114 lb (51.7kg) GENERAL: pleasant, female in no apparent distress HEENT: Normocephalic, atraumatic, mucus membranes moist, and no lesions CHEST: Normal inspiratory effort ABDOMEN: soft, non-tender, and no masses PELVIC: external genitalia normal, normal Bartholin's glands, urethra, [place]'s glands, no vulvar lesions, no cervical lesions, physiologic discharge present, normal appearing perineal body and perianal region, atrophic changes BIMANUAL: uterus normal size, shape and consistency, no adnexal masses, and non-tender NEURO: alert and oriented x3,exam grossly non-focal EXTREMITIES: normal ASSESSMENT/PLAN: 1. Pelvic pain - ICD9: [id number], ICD10: R10.2 - US FEMALE PELVIS TRANSVAG - KOREY / TRICHOMONAS AMPLIFICATION - BACTERIAL VAGINOSIS AMPLIFICATION Will notify patient of test results. If results are negative instructed patient to follow back up with PCP. Kelly Peña APRN.CNP Medical Decision Making: Problems: Moderate: New problem with uncertain prognosis Data: Unique test(s) ordered: 3+ Risk: Low: Low risk from testing/treatment Medical Decision Making Level: 4 - Moderate documented in this encounterGlen[facility]06-01-2023 Instructions* Patient Instructions* Kathy Jansen APRN.CNP - 03/02/2023 10:21 AM EDT Follow up with PRINTED [employer] LAYOUT TAPER documented in this encounterGlen[facility]igh Hospital06-01-2023 History of Present illness Narrative* Kathy Jansen APRN.CNP - 03/02/2023 10:10 AM EDT Chief Complaint Patient presents with: Follow Up HPI Terri Villar is a 67 year old female who presents here today for Above Complaints.. Patient presents for low back and pelvic pain. Patient was seen in and UTI was ruled out. Patient has seen urologist in the past who performed a scope and told patient this is likely due to menopause but patient has not followed up with PR[employer] LAYOUT T[employer]ER. Past medical history, appointments, medications, allergies reviewed. Previous Medical History PAST MEDICAL HISTORY Diagnosis Date Chronic kidney disease, stage III (moderate) (HCC) DDD (degenerative disc disease), cervical Dr Navjot History of COVID-19 07/12/202106/2021 MTHFR mutation Osteoarthritis Previous Surgical History PAST SURGICAL HISTORY Procedure Laterality Date DELIVERY ONLY 10/02/1984 , low transverse Family History FAMILY HISTORY Problem Relation Age of Onset Breast Cancer Mother 74 Heart Brother Diabetes Paternal Grandmother Patient Allergies ALLERGIES Allergen Reactions Amoxicillin Itching Asa [Salicylates] Itching Codeine Itching Cortizone-10 [[place]* Itching Cymbalta [Duloxetin* Intolerance One pill: bruning all over Dolibid [Other] Itching Duricef [Cefadroxil] Itching Dye Shortness of Breath Ct dye. Including rash Entex La [Phenyleph* Itching Erythromycin Itching Flu Vac 2014 (65 Up* Shortness of Breath Keflex [Cephalexin] Itching Levaquin [Levofloxa* Other: See Comments itching Macrobid [Nitrofura* Other: See Comments Fast heart rate Mobic [Meloxicam] Itching Morphine Itching Penicillins Hives Prednisolone Other: See Comments Elevated blood pressure. Has done well with medrol dose april. Prilosec [Omeprazol* Itching Septra [Sulfamethox* Hives Sulfa (Sulfonamide * Hives Tetracycline Hives Can take doxycycline Current Medications Current Outpatient Medications on File Prior to Visit Medication Sig lisinopril (ZESTRIL) 40 mg tablet Take 1 tablet by mouth once daily. sucralfate (CARAFATE) 1 gram tablet Take 1 tablet by mouth four times daily. fluticasone (FLONASE) 50 mcg/actuation nasal spray Use 2 Sprays in each nostril once daily. Rinse mouth after use. atorvastatin (LIPITOR) 10 mg tablet Take 1 tablet by mouth daily at bedtime. For cholesterol. acetaminophen (TYLENOL ARTHRITIS ORAL) Take by mouth. Current Facility-Administered Medications on File Prior to Visit Medication perflutren lipid microspheres 1.3 mL in NaCl (PF) 0.9% 10 mL injection (DEFINITY) sodium chloride 0.9 % (flush) 10 mL (BD POSIFLUSH) denosumab 60 mg injection (PROLIA) Social History Social History Tobacco Use Smoking status: Former Smokeless tobacco: Never Vaping Use Vaping Use: Never used Substance Use Topics Alcohol use: No Drug use: No Review of Symptoms REVIEW OF SYSTEMS SEE HPI EXAM: BP 120/76 Pulse 76 Resp 14 Wt 51.7 kg (114 lb) BMI 19.57 kg/m General Appearance: Well appearing, alert, in no acute distress, well-hydrated, well nourished.. Back:no pain to palpation of vertebrae, good flexion and extension, good range of motion, no muscletenderness, reflexes are 2+ and symmetric, motor and sensory appear to be normal, negative SLR test, no evidence of scoliosis Abdomen: Normal abdominal exam, Abdomen soft, non-tender. Bowel sounds normal. No masses, organomegaly. Health Maintenance List COLORECTAL CANCER SCREENING due on 09/22/2021 SHINGRIX VACCINE(1 of 2) due on 09/07/2023 COVID-19 VACCINE(2 - Pfizer series) due on 09/07/2023 PNEUMOCOCCAL: 65+(1 - PCV) due on 09/07/2023 BP CONTROLLED (<130/80) due on 09/07/2023 MAMMOGRAM due on 11/23/2023 SERUM CREATININE due on 01/19/2024 HEMOGLOBIN/HEMATOCRIT due on 01/19/2024 ANNUAL PCP TEAM CHRONIC DISEASE VISIT due on 02/25/2024 DIABETES SCREEN due on 01/18/2026 LIPID SCREEN due on 01/19/2028 DTAP,TDAP,TD(2 - Td or Tdap) due on 10/13/2031 BONE DENSITY Completed ADVANCE DIRECTIVE DISCUSSION Completed DEPRESSION ASSESSMENT Completed HEPATITIS C SCREENING Completed INFLUENZA Discontinued ASSESSMENT/PLAN: 1. Pelvic pain - ICD9: [id number], ICD10: R10.2 - CONSULT TO COUNTY JUDGE Kathy Jansen APRN.WASH WORKER documented in this encounterGlenbeigh Hospital05-30-2023 Miscellaneous Notes* Telephone Encounter - Barbie Muro LPN - 02/28/2023 11:03 AM EDT Patient returned call and went over results, notes from express care provider with understanding. * Telephone Encounter - Snehal Susu - 02/28/2023 10:53 AM EDT Left message for patient to return call. Snehal Cristobal * Telephone Encounter - Esther Dial APRN.CNP - 02/28/2023 10:25 AM EDT Patient's urine culture did not grow a significant amount of bacteria. If patient's symptoms are persistent patient should follow-up with primary care. documented in this encounterGlenbeigh Hospital05-29-2023 History of Present illness Narrative* Nae Gould MD - 02/27/2023 8:24 AM EDT Patient presents with: UTI: Burning with urination, lower back pain x 1 day HPI: Symptoms started yesterday sitting through her grandchild's graduation. Dysuria: Yes Frequency: Hematuria: No. Has baseline microscopic hematuria with negative urology evaluation. Nausea: No Fever or chills: No Back pain: Yes, bilateral lumbosacral junction which wraps around with burning to the abdomen. Abdominal pain: Prior UTI: Yes, frequent culture results with mixed microbiota. Has seen urology for this -may be menopausal changes? PAST MEDICAL HISTORY Diagnosis Date Chronic kidney disease, stage III (moderate) (HCC) DDD (degenerative disc disease), cervical Dr Knapic History of COVID-19 07/12/202106/2021 MTHFR mutation Osteoarthritis PAST SURGICAL HISTORY Procedure Laterality Date DELIVERY ONLY 10/02/1984 , low transverse MEDICATIONS: Current Outpatient Medications Medication Sig lisinopril (ZESTRIL) 40 mg tablet Take 1 tablet by mouth once daily. sucralfate (CARAFATE) 1 gram tablet Take 1 tablet by mouth four times daily. fluticasone (FLONASE) 50 mcg/actuation nasal spray Use 2 Sprays in each nostril once daily. Rinse mouth after use. atorvastatin (LIPITOR) 10 mg tablet Take 1 tablet by mouth daily at bedtime. For cholesterol. acetaminophen (TYLENOL ARTHRITIS ORAL) Take by mouth. Current Facility-Administered Medications Medication Dose Route Frequency perflutren lipid microspheres 1.3 mL in NaCl (PF) 0.9% 10 mL injection (DEFINITY) INTRAVENOUS DIRECTED PRN sodium chloride 0.9 % (flush) 10 mL (BD POSIFLUSH) 10 mL INTRAVENOUS DIRECTED PRN denosumab 60 mg injection (PROLIA) 60 mg SUBCUTANEOUS Q 6 MONTH ALLERGIES: ALLERGIES Allergen Reactions Amoxicillin Itching Asa [Salicylates] Itching Codeine Itching Cortizone-10 [[place]* Itching Cymbalta [Duloxetin* Intolerance One pill: bruning all over Dolibid [Other] Itching Duricef [Cefadroxil] Itching Dye Shortness of Breath Ct dye. Including rash Entex La [Phenyleph* Itching Erythromycin Itching Flu Vac 2014 (65 Up* Shortness of Breath Keflex [Cephalexin] Itching Levaquin [Levofloxa* Other: See Comments itching Macrobid [Nitrofura* Other: See Comments Fast heart rate Mobic [Meloxicam] Itching Morphine Itching Penicillins Hives Prednisolone Other: See Comments Elevated blood pressure. Has done well with medrol dose april. Prilosec [Omeprazol* Itching Septra [Sulfamethox* Hives Sulfa (Sulfonamide * Hives Tetracycline Hives Can take doxycycline VITALS: BP 142/82 Pulse 79 Temp 36.4 C (97.5 F) Resp 21 Wt 51.3 kg (113 lb) SpO2 99% BMI 19.40 kg/m PHYSICAL EXAM: GEN: NAD HEENT: EOMI, conjunctiva clear, HEART: regular rate and rhythm, no murmurs LUNGS: clear to auscultation, no wheezes or crackles, no increased WOB ABDOMEN: Soft, nondistended, no masses, no suprapubic tenderness BACK: No CVA or midline tenderness. Points to bilateral lumbosacral junction as primary location ofpain. ASSESSMENT/PLAN: 1. Burning with urination - ICD9: 788.1, ICD10: R30.0 - UA positive for trace blood only. - UA DIP, URINE (POC) - URINE CULTURE -low suspicion for urinary tract infection. Will treat if indicated on culture and symptoms persist. Continue to treat low back pain with as needed [id number] analgesia. Nae Gould MD [facility] Miscellaneous Notes* Telephone Encounter - Bridget De Luna MD - 02/08/2023 2:03 PM EDT She needs to contact Dr. Stoll's office who ordered it to see if that is acceptable. * Telephone Encounter - Anaya Lawson MA - 02/08/2023 1:[address] De Luna, pt states that she is unable to have MRI with contrast and that a new order will need placed. Please order MRI wo contrast. (I don't see a previous order to go off to pend). Anaya Lawson MA documented [facility] Miscellaneous Notes* Telephone Encounter - Graciela Salguero LPN - 02/02/2023 8:57 AM EDT Patient phones requesting refills as follows: Requested Prescriptions Pending Prescriptions Disp Refills lisinopril (ZESTRIL) 40 mg tablet 90 tablet 1 Sig: Take 1 tablet by mouth once daily. IZAIAH-01/30/23 Labs-01/18/23 NOV-08/02/23 Please review and advise. Graciela Salguero LPN documented in this encounterG[facility]27[facility] History of Past illness Narrative* Problem Noted Date Resolved Date Protein-calorie malnutrition, unspecified severi ty 01/26/2023 01/30/2023 Secondary renal hyperparathyroidism 01/26/2023 01/30/2023 Sinus congestion 10/22/2022 01/30/2023 History of COVID-19 07/12/2021 01/30/2023 Overview: 06/2021 Routine General Medical Exam ination at a Health Care Facility 11/10/2008 05/15/2014 documented as of this encounter (statuses as of 02/02/2023) [address]27-2023 History of Past illness Narrative* Problem Noted Date Resolved Date Protein-calorie malnutrition, unspecified severi ty 01/26/2023 01/30/2023 Secondary renal hyperparathyroidism 01/26/2023 01/30/2023 Sinus congestion 10/22/2022 01/30/2023 History of COVID-19 07/12/2021 01/30/2023 Overview: 06/2021 Routine General Medical Exam ination at a [facility] 11/10/2008 05/15/2014 documented as of this encounter (statuses as of 02/08/2023) [address]27-2023 History of Past illness Narrative* Problem Noted Date Resolved Date Protein-calorie malnutrition, unspecified severi ty 01/26/2023 01/30/2023 Secondary renal hyperparathyroidism 01/26/2023 01/30/2023 Sinus congestion 10/22/2022 01/30/2023 History of COVID-19 07/12/2021 01/30/2023 Overview: 06/2021 Routine General Medical Exam ination at a [facility] 11/10/2008 05/15/2014 documented as of this encounter (statuses as of 02/27/2023) [address]27-2023 History of Past illness Narrative* Problem Noted Date Resolved Date Protein-calorie malnutrition, unspecified severi ty 01/26/2023 01/30/2023 Secondary renal hyperparathyroidism 01/26/2023 01/30/2023 Sinus congestion 10/22/2022 01/30/2023 History of COVID-19 07/12/2021 01/30/2023 Overview: 06/2021 Routine General Medical Exam ination at a [facility] 11/10/2008 05/15/2014 documented as of this encounter (statuses as of 02/28/2023) [address]23 History of Past illness Narrative* Problem Noted Date Resolved Date Protein-calorie malnutrition, unspecified severi ty 01/26/2023 01/30/2023 Secondary renal hyperparathyroidism 01/26/2023 01/30/2023 Sinus congestion 10/22/2022 01/30/2023 History of COVID-19 07/12/2021 01/30/2023 Overview: 06/2021 Routine General Medical Exam ination at a [facility] 11/10/2008 05/15/2014 documented as of this encounter (statuses as of 03/02/2023) [facility] of Past illness Narrative* Problem Noted Date Resolved Date Protein-calorie malnutrition, unspecified severi ty 01/26/2023 01/30/2023 Secondary renal hyperparathyroidism 01/26/2023 01/30/2023 Sinus congestion 10/22/2022 01/30/2023 History of COVID-19 07/12/2021 01/30/2023 Overview: 06/2021 Routine General Medical Exam ination at a [facility] 11/10/2008 05/15/2014 documented as of this encounter (statuses as of 03/06/2023) [facility] Narrative* Problem Noted Date Resolved Date Protein-calorie malnutrition, unspecified severi ty 01/26/2023 01/30/2023 Secondary renal hyperparathyroidism 01/26/2023 01/30/2023 Sinus congestion 10/22/2022 01/30/2023 History of COVID-19 07/12/2021 01/30/2023 Overview: 06/2021 Routine General Medical Exam ination at a [facility] 11/10/2008 05/15/2014 documented as of this encounter (statuses as of 03/16/2023) [address]27-2023 History of Past illness Narrative* Problem Noted Date Resolved Date Protein-calorie malnutrition, unspecified severi ty 01/26/2023 01/30/2023 Secondary renal hyperparathyroidism 01/26/2023 01/30/2023 Sinus congestion 10/22/2022 01/30/2023 History of COVID-19 07/12/2021 01/30/2023 Overview: 06/2021 Routine General Medical Exam ination at a [facility] 11/10/2008 05/15/2014 documented as of this encounter (statuses as of 03/18/2023) [address]27-2023 History of Past illness Narrative* Problem Noted Date Resolved Date Protein-calorie malnutrition, unspecified severi ty 01/26/2023 01/30/2023 Secondary renal hyperparathyroidism 01/26/2023 01/30/2023 Sinus congestion 10/22/2022 01/30/2023 History of COVID-19 07/12/2021 01/30/2023 Overview: 06/2021 Routine General Medical Exam ination at a [facility] 11/10/2008 05/15/2014 documented as of this encounter (statuses as of 03/20/2023) [address]27-2023 History of Past illness Narrative* Problem Noted Date Resolved Date Protein-calorie malnutrition, unspecified severi ty 01/26/2023 01/30/2023 Secondary renal hyperparathyroidism 01/26/2023 01/30/2023 Sinus congestion 10/22/2022 01/30/2023 History of COVID-19 07/12/2021 01/30/2023 Overview: 06/2021 Routine General Medical Exam ination at a [facility] 11/10/2008 05/15/2014 documented as of this encounter (statuses as of 03/23/2023) [address]27-2023 History of Past illness Narrative* Problem Noted Date Resolved Date Protein-calorie malnutrition, unspecified severi ty 01/26/2023 01/30/2023 Secondary renal hyperparathyroidism 01/26/2023 01/30/2023 Sinus congestion 10/22/2022 01/30/2023 History of COVID-19 07/12/2021 01/30/2023 Overview: 06/2021 Routine General Medical Exam ination at a [facility] 11/10/2008 05/15/2014 documented as of this encounter (statuses as of 03/28/2023) [address]27-2023 History of Past illness Narrative* Problem Noted Date Resolved Date Protein-calorie malnutrition, unspecified severi ty 01/26/2023 01/30/2023 Secondary renal hyperparathyroidism 01/26/2023 01/30/2023 Sinus congestion 10/22/2022 01/30/2023 History of COVID-19 07/12/2021 01/30/2023 Overview: 06/2021 Routine General Medical Exam ination at a [facility] 11/10/2008 05/15/2014 documented as of this encounter (statuses as of 03/30/2023) [address]27-2023 History of Past illness Narrative* Problem Noted Date Resolved Date Protein-calorie malnutrition, unspecified severi ty 01/26/2023 01/30/2023 Secondary renal hyperparathyroidism 01/26/2023 01/30/2023 Sinus congestion 10/22/2022 01/30/2023 History of COVID-19 07/12/2021 01/30/2023 Overview: 06/2021 Routine General Medical Exam ination at a [facility] 11/10/2008 05/15/2014 documented as of this encounter (statuses as of 03/30/2023) [address]27-2023 History of Past illness Narrative* Problem Noted Date Resolved Date Protein-calorie malnutrition, unspecified severi ty 01/26/2023 01/30/2023 Secondary renal hyperparathyroidism 01/26/2023 01/30/2023 Sinus congestion 10/22/2022 01/30/2023 History of COVID-19 07/12/2021 01/30/2023 Overview: 06/2021 Routine General Medical Exam ination at a [facility] 11/10/2008 05/15/2014 documented as of this encounter (statuses as of 03/31/2023) [address]27-2023 History of Past illness Narrative* Problem Noted Date Resolved Date Protein-calorie malnutrition, unspecified severi ty 01/26/2023 01/30/2023 Secondary renal hyperparathyroidism 01/26/2023 01/30/2023 Sinus congestion 10/22/2022 01/30/2023 History of COVID-19 07/12/2021 01/30/2023 Overview: 06/2021 Routine General Medical Exam ination at a [facility] 11/10/2008 05/15/2014 documented as of this encounter (statuses as of 04/03/2023) [address]27-2023 History of Past illness Narrative* Problem Noted Date Resolved Date Protein-calorie malnutrition, unspecified severi ty 01/26/2023 01/30/2023 Secondary renal hyperparathyroidism 01/26/2023 01/30/2023 Sinus congestion 10/22/2022 01/30/2023 History of COVID-19 07/12/2021 01/30/2023 Overview: 06/2021 Routine General Medical Exam ination at a [facility] 11/10/2008 05/15/2014 documented as of this encounter (statuses as of 04/07/2023) [address]27-2023 History of Past illness Narrative* Problem Noted Date Diagnosed Date Resolved Date Protein-calorie malnutrition , unspecified severity 01/26/2023 01/30/2023 Secondary renal hyperparathyroidism 01/26/2023 01/30/2023 Sinus congestion 10/22/2022 01/30/2023 History of COVID-19 07/12/2021 01/31/20 23 Overview: 06/2021 Routine General Medical Exam ination at a [facility] 11/10/2008 05/15/2014 documented as of this encounter (statuses as of 04/27/2023) [address]27-2023 History of Past illness Narrative* Problem Noted Date Diagnosed Date Resolved Date Protein-calorie malnutrition , unspecified severity 01/26/2023 01/30/2023 Secondary renal hyperparathyroidism 01/26/2023 01/30/2023 Sinus congestion 10/22/2022 01/30/2023 History of COVID-19 07/12/2021 01/31/20 23 Overview: 06/2021 Routine General Medical Exam ination at a [facility] 11/10/2008 05/15/2014 documented as of this encounter (statuses as of 05/03/2023) [address]27-2023 History of Past illness Narrative* Problem Noted Date Diagnosed Date Resolved Date Protein-calorie malnutrition , unspecified severity 01/26/2023 01/30/2023 Secondary renal hyperparathyroidism 01/26/2023 01/30/2023 Sinus congestion 10/22/2022 01/30/2023 History of COVID-19 07/12/2021 01/31/20 23 Overview: 06/2021 Routine General Medical Exam ination at a [facility] 11/10/2008 05/15/2014 documented as of this encounter (statuses as of 05/13/2023) [address]27-2023 History of Past illness Narrative* Problem Noted Date Diagnosed Date Resolved Date Protein-calorie malnutrition , unspecified severity 01/26/2023 01/30/2023 Secondary renal hyperparathyroidism 01/26/2023 01/30/2023 Sinus congestion 10/22/2022 01/30/2023 History of COVID-19 07/12/2021 01/31/20 23 Overview: 06/2021 Routine General Medical Exam ination at a [facility] 11/10/2008 05/15/2014 documented as of this encounter (statuses as of 05/18/2023) [address]27-2023 History of Past illness Narrative* Problem Noted Date Diagnosed Date Resolved Date Protein-calorie malnutrition , unspecified severity 01/26/2023 01/30/2023 Secondary renal hyperparathyroidism 01/26/2023 01/30/2023 Sinus congestion 10/22/2022 01/30/2023 History of COVID-19 07/12/2021 01/31/20 23 Overview: 06/2021 Routine General Medical Exam ination at a [facility] 11/10/2008 05/15/2014 documented as of this encounter (statuses as of 05/19/2023) [address]27-2023 History of Past illness Narrative* Problem Noted Date Diagnosed Date Resolved Date Protein-calorie malnutrition , unspecified severity 01/26/2023 01/30/2023 Secondary renal hyperparathyroidism 01/26/2023 01/30/2023 Sinus congestion 10/22/2022 01/30/2023 History of COVID-19 07/12/2021 01/31/20 23 Overview: 06/2021 Routine General Medical Exam ination at a [facility] 11/10/2008 05/15/2014 documented as of this encounter (statuses as of 05/22/2023) [address]27-2023 History of Past illness Narrative* Problem Noted Date Diagnosed Date Resolved Date Protein-calorie malnutrition , unspecified severity 01/26/2023 01/30/2023 Secondary renal hyperparathyroidism 01/26/2023 01/30/2023 Sinus congestion 10/22/2022 01/30/2023 History of COVID-19 07/12/2021 01/31/20 Overview: 06/2021 Routine General Medical Exam ination at a [facility] 11/10/2008 05/15/2014 documented as of this encounter (statuses as of 05/24/2023) [address]27-2023 History of Past illness Narrative* Problem Noted Date Diagnosed Date Resolved Date Protein-calorie malnutrition , unspecified severity 01/26/2023 01/30/2023 Secondary renal hyperparathyroidism 01/26/2023 01/30/2023 Sinus congestion 10/22/2022 01/30/2023 History of COVID-19 07/12/2021 01/31/20 23 Overview: 06/2021 Routine General Medical Exam ination at a [facility] 11/10/2008 05/15/2014 documented as of this encounter (statuses as of 05/26/2023) [address]27-2023 History of Past illness Narrative* Problem Noted Date Diagnosed Date Resolved Date Protein-calorie malnutrition , unspecified severity 01/26/2023 01/30/2023 Secondary renal hyperparathyroidism 01/26/2023 01/30/2023 Sinus congestion 10/22/2022 01/30/2023 History of COVID-19 07/12/2021 01/31/20 23 Overview: 06/2021 Routine General Medical Exam ination at a [facility] 11/10/2008 05/15/2014 documented as of this encounter (statuses as of 05/26/2023) [address]27-2023 History of Past illness Narrative* Problem Noted Date Diagnosed Date Resolved Date Protein-calorie malnutrition , unspecified severity 01/26/2023 01/30/2023 Secondary renal hyperparathyroidism 01/26/2023 01/30/2023 Sinus congestion 10/22/2022 01/30/2023 History of COVID-19 07/12/2021 01/31/20 23 Overview: 06/2021 Routine General Medical Exam ination at a [facility] 11/10/2008 05/15/2014 documented as of this encounter (statuses as of 06/01/2023) [address]27-2023 History of Past illness Narrative* Problem Noted Date Diagnosed Date Resolved Date Protein-calorie malnutrition , unspecified severity 01/26/2023 01/30/2023 Secondary renal hyperparathyroidism 01/26/2023 01/30/2023 Sinus congestion 10/22/2022 01/30/2023 History of COVID-19 07/12/2021 01/31/20 23 Overview: 06/2021 Routine General Medical Exam ination at a [facility] 11/10/2008 05/15/2014 documented as of this encounter (statuses as of 06/07/2023) [address]27-2023 History of Past illness Narrative* Problem Noted Date Diagnosed Date Resolved Date Protein-calorie malnutrition , unspecified severity 01/26/2023 01/30/2023 Secondary renal hyperparathyroidism 01/26/2023 01/30/2023 Sinus congestion 10/22/2022 01/30/2023 History of COVID-19 07/12/2021 01/31/20 23 Overview: 06/2021 Routine General Medical Exam ination at a [facility] 11/10/2008 05/15/2014 documented as of this encounter (statuses as of 06/12/2023) [address]27-2023 History of Past illness Narrative* Problem Noted Date Diagnosed Date Resolved Date Protein-calorie malnutrition , unspecified severity 01/26/2023 01/30/2023 Secondary renal hyperparathyroidism 01/26/2023 01/30/2023 Sinus congestion 10/22/2022 01/30/2023 History of COVID-19 07/12/2021 01/31/20 23 Overview: 06/2021 Routine General Medical Exam ination at a [facility] 11/10/2008 05/15/2014 documented as of this encounter (statuses as of 06/13/2023) [place] [address]27-2023 History of Past illness Narrative* Problem Noted Date Diagnosed Date Resolved Date Protein-calorie malnutrition , unspecified severity 01/26/2023 01/30/2023 Secondary renal hyperparathyroidism 01/26/2023 01/30/2023 Sinus congestion 10/22/2022 01/30/2023 History of COVID-19 07/12/2021 01/31/20 23 Overview: 06/2021 Routine General Medical Exam ination at a [facility] 11/10/2008 05/15/2014 documented as of this encounter (statuses as of 06/16/2023) [address]27-2023 History of Past illness Narrative* Problem Noted Date Diagnosed Date Resolved Date Protein-calorie malnutrition , unspecified severity 01/26/2023 01/30/2023 Secondary renal hyperparathyroidism 01/26/2023 01/30/2023 Sinus congestion 10/22/2022 01/30/2023 History of COVID-19 07/12/2021 01/31/20 23 Overview: 06/2021 Routine General Medical Exam ination at a [facility] 11/10/2008 05/15/2014 documented as of this encounter (statuses as of 06/21/2023) [address]27-2023 History of Past illness Narrative* Problem Noted Date Diagnosed Date Resolved Date Protein-calorie malnutrition , unspecified severity 01/26/2023 01/30/2023 Secondary renal hyperparathyroidism 01/26/2023 01/30/2023 Sinus congestion 10/22/2022 01/30/2023 History of COVID-19 07/12/2021 01/31/20 23 Overview: 06/2021 Routine General Medical Exam ination at a [facility] 11/10/2008 05/15/2014 documented as of this encounter (statuses as of 06/26/2023) [address]27-2023 History of Past illness Narrative* Problem Noted Date Diagnosed Date Resolved Date Protein-calorie malnutrition , unspecified severity 01/26/2023 01/30/2023 Secondary renal hyperparathyroidism 01/26/2023 01/30/2023 Sinus congestion 10/22/2022 01/30/2023 History of COVID-19 07/12/2021 01/31/20 23 Overview: 06/2021 Routine General Medical Exam ination at a [facility] 11/10/2008 05/15/2014 documented as of this encounter (statuses as of 08/05/2023) [address]27-2023 History of Past illness Narrative* Problem Noted Date Diagnosed Date Resolved Date Protein-calorie malnutrition , unspecified severity 01/26/2023 01/30/2023 Secondary renal hyperparathyroidism 01/26/2023 01/30/2023 Sinus congestion 10/22/2022 01/30/2023 History of COVID-19 07/12/2021 01/31/20 23 Overview: 06/2021 Routine General Medical Exam ination at a [facility] 11/10/2008 05/15/2014 documented as of this encounter (statuses as of 08/06/2023) [address]27-2023 History of Past illness Narrative* Problem Noted Date Diagnosed Date Resolved Date Protein-calorie malnutrition , unspecified severity 01/26/2023 01/30/2023 Secondary renal hyperparathyroidism 01/26/2023 01/30/2023 Sinus congestion 10/22/2022 01/30/2023 History of COVID-19 07/12/2021 01/31/20 23 Overview: 06/2021 Routine General Medical Exam ination at a [facility] 11/10/2008 05/15/2014 documented as of this encounter (statuses as of 08/06/2023) [address]27-2023 History of Past illness Narrative* Problem Noted Date Diagnosed Date Resolved Date Protein-calorie malnutrition , unspecified severity 01/26/2023 01/30/2023 Secondary renal hyperparathyroidism 01/26/2023 01/30/2023 Sinus congestion 10/22/2022 01/30/2023 History of COVID-19 07/12/2021 01/31/20 23 Overview: 06/2021 Routine General Medical Exam ination at a [facility] 11/10/2008 05/15/2014 documented as of this encounter (statuses as of 08/08/2023) [facility] History of Past illness Narrative* Problem Noted Date Diagnosed Date Resolved Date Protein-calorie malnutrition , unspecified severity 01/26/2023 01/30/2023 Secondary renal hyperparathyroidism 01/26/2023 01/30/2023 Sinus congestion 10/22/2022 01/30/2023 History of COVID-19 07/12/2021 01/31/20 23 Overview: 06/2021 Routine General Medical Exam ination at a [facility] 11/10/2008 05/15/2014 documented as of this encounter (statuses as of 08/10/2023) [facility] History of Past illness Narrative* Problem Noted Date Diagnosed Date Resolved Date Protein-calorie malnutrition , unspecified severity 01/26/2023 01/30/2023 Secondary renal hyperparathyroidism 01/26/2023 01/30/2023 Sinus congestion 10/22/2022 01/30/2023 History of COVID-19 07/12/2021 01/31/20 23 Overview: 06/2021 Routine General Medical Exam ination at a Health Care Facility 11/10/2008 05/15/2014 documented as of this encounter (statuses as of 08/21/2023) [address]27-2023 History of Past illness Narrative* Problem Noted Date Diagnosed Date Resolved Date Protein-calorie malnutrition , unspecified severity 01/26/2023 01/30/2023 Secondary renal hyperparathyroidism 01/26/2023 01/30/2023 Sinus congestion 10/22/2022 01/30/2023 History of COVID-19 07/12/2021 05/01/20 23 Overview: 06/2021 Routine General Medical Exam ination at a [facility] 11/10/2008 05/15/2014 documented as of this encounter (statuses as of 09/01/2023) [address]27-2023 History of Past illness Narrative* Problem Noted Date Diagnosed Date Resolved Date Protein-calorie malnutrition , unspecified severity 01/26/2023 01/30/2023 Secondary renal hyperparathyroidism 01/26/2023 01/30/2023 Sinus congestion 10/22/2022 01/30/2023 History of COVID-19 07/12/2021 01/31/20 23 Overview: 06/2021 Routine General Medical Exam ination at a [facility] 11/10/2008 05/15/2014 documented as of this encounter (statuses as of 09/02/2023) [address]27-2023 History of Past illness Narrative* Problem Noted Date Diagnosed Date Resolved Date Protein-calorie malnutrition , unspecified severity 01/26/2023 01/30/2023 Secondary renal hyperparathyroidism 01/26/2023 01/30/2023 Sinus congestion 10/22/2022 01/30/2023 History of COVID-19 07/12/2021 01/31/20 23 Overview: 06/2021 Routine General Medical Exam ination at a [facility] 11/10/2008 05/15/2014 documented as of this encounter (statuses as of 09/04/2023) [address]27-2023 History of Past illness Narrative* Problem Noted Date Diagnosed Date Resolved Date Protein-calorie malnutrition , unspecified severity 01/26/2023 01/30/2023 Secondary renal hyperparathyroidism 01/26/2023 01/30/2023 Sinus congestion 10/22/2022 01/30/2023 History of COVID-19 07/12/2021 01/31/20 23 Overview: 06/2021 Routine General Medical Exam ination at a [facility] 11/10/2008 05/15/2014 documented as of this encounter (statuses as of 09/07/2023) [facility] History of Past illness Narrative* Problem Noted Date Diagnosed Date Resolved Date Protein-calorie malnutrition , unspecified severity 01/26/2023 01/30/2023 Secondary renal hyperparathyroidism 01/26/2023 01/30/2023 Sinus congestion 10/22/2022 01/30/2023 History of COVID-19 07/12/2021 01/31/20 23 Overview: 06/2021 Routine General Medical Exam ination at a [facility] 11/10/2008 05/15/2014 documented as of this encounter (statuses as of 09/10/2023) [address]27-2023 History of Past illness Narrative* Problem Noted Date Diagnosed Date Resolved Date Protein-calorie malnutrition , unspecified severity 01/26/2023 01/30/2023 Secondary renal hyperparathyroidism 01/26/2023 01/30/2023 Sinus congestion 10/22/2022 01/30/2023 History of COVID-19 07/12/2021 01/31/20 23 Overview: 06/2021 Routine General Medical Exam ination at a [facility] 11/10/2008 05/15/2014 documented as of this encounter (statuses as of 09/12/2023) [facility] History of Past illness Narrative* Problem Noted Date Diagnosed Date Resolved Date Protein-calorie malnutrition , unspecified severity 01/26/2023 01/30/2023 Secondary renal hyperparathyroidism 01/26/2023 01/30/2023 Sinus congestion 10/22/2022 01/30/2023 History of COVID-19 07/12/2021 01/31/20 23 Overview: 06/2021 Routine General Medical Exam ination at a Health Care Facility 11/10/2008 05/15/2014 documented as of this encounter (statuses as of 09/14/2023) [address]27-2023 History of Present illness Narrative* David Ortega MD - 01/26/2023 10:59 AM EDT HISTORY AND PHYSICAL Terri Villar 1955 REFERRING PHYSICIAN: Bridget De Luna MD CHIEF COMPLAINT: Consult (Colonoscopy consult, GERD, pain across transverse abdomen, review CT and US) HPI: The patient is a 67 year old female referred for endoscopy. Terri notes upper abdominal pain which is both right and left upper abdomen slightly worse in the right upper quadrant. It is intermittent. She does not note this to be related to food. She does note nausea. The patient has not had colonoscopy. No family history of colon difficulties or colon cancer. She denies any colon issues herself. Terri has both a recent CAT scan at [facility] which demonstrated a gallstone but no other abnormalities and a right upper quadrant ultrasound which also demonstrated a gallstone but no other abnormalities. Patient notes no biliary colic type symptoms. The patient is being seen by me today at the request of Dr. De Luna for my opinion and advice regarding upper abdominal complaints with a likely asymptomatic gallstone. PAST MEDICAL HISTORY Diagnosis Date Chronic kidney disease, stage III (moderate) (HCC) DDD (degenerative disc disease), cervical Dr Morfin History of COVID-19 07/12/202106/2021 MTHFR mutation Osteoarthritis PAST SURGICAL HISTORY Procedure Laterality Date DELIVERY ONLY 10/02/1984 , low transverse Current Outpatient Medications Medication Sig sucralfate (CARAFATE) 1 gram tablet Take 1 tablet by mouth four times daily. fluticasone (FLONASE) 50 mcg/actuation nasal spray Use 2 Sprays in each nostril once daily. Rinse mouth after use. atorvastatin (LIPITOR) 10 mg tablet Take 1 tablet by mouth daily at bedtime. For cholesterol. lisinopril (ZESTRIL, PRINIVIL) 40 mg tablet Take 1 tablet by mouth once daily. acetaminophen (TYLENOL ARTHRITIS ORAL) Take by mouth. peg 3350-Electrolytes (GOLYTELY) 236-22.74-6.74 -5.86 gram suspension Take 4,000 mL by mouth one time only for 1 dose. Refer to printed prep instructions from your provider. Current Facility-Administered Medications Medication Dose Route Frequency perflutren lipid microspheres 1.3 mL in NaCl (PF) 0.9% 10 mL injection (DEFINITY) INTRAVENOUS DIRECTED PRN sodium chloride 0.9 % (flush) 10 mL (BD POSIFLUSH) 10 mL INTRAVENOUS DIRECTED PRN denosumab 60 mg injection (PROLIA) 60 mg SUBCUTANEOUS Q 6 MONTH ALLERGIES: Amoxicillin, Asa [Salicylates], Codeine, Cortizone-10 [Hydrocortisone], Cymbalta [Duloxetine], Dolibid [Other], Duricef [Cefadroxil], Dye, Entex La [Phenylephrine-Guaifenesin], Erythromycin, Flu Vac 2014 (65 Up)- Mf59c(Pf), Keflex [Cephalexin], Levaquin [Levofloxacin], Macrobid [Nitrofuran toin Monohyd/M-Cryst], Mobic [Meloxicam], Morphine, Penicillins, Prednisolone, Prilosec [Omeprazole], Septra [Sulfamethoxazole-Trimethoprim], Sulfa (Sulfonamide Antibiotics), and Tetracycline PERSONAL HISTORY: Social History Tobacco Use Smoking status: Former Smokeless tobacco: Never Vaping Use Vaping Use: Never used Substance Use Topics Alcohol use: No Drug use: No FAMILY HISTORY: FAMILY HISTORY Problem Relation Age of Onset Breast Cancer Mother 74 Heart Brother Diabetes Paternal Grandmother REVIEW OF SYMPTOMS: The review of systems data was entered by the nurse and reviewed by ct Nursing Notes: Elaine Steven RN 01/26/2023 9:59 AM Signed REVIEW OF SYSTEMS: General: The patient NOTES fatigue, denies weight loss, denies weight gain, denies feeling hot, anddenies feelings of cold. Eyes: The patient denies glaucoma, denies eye injury/surgery, wears glasses or contacts. Ear/Nose/Throat: The patient NOTES allergies, denies hayfever, denies ear infections, and denies bloody noses. Cardiovascular: The patient denies chest pain, denies heart disease, NOTES high blood pressure,denies cardiac stent, denies prior heart attack, denies irregular heart beat, NOTES high cholesterol, denies poor circulation, denies heart failure, other cardiac issues, denies claudication, denies cold feet, denies peripheral arterial stent. Respiratory: The patient denies tuberculosis, denies pneumonia, denies frequent cough, denies pulmonary embolism, denies shortness of breath, and denies coughing up blood. Gastrointestinal: The patient denies difficulty swallowing, NOTES acid reflux, denies ulcers, denies vomiting, denies jaundice/hepatitis, NOTES gallbladder problems, denies black or tarry stools, denies hemorrhoids, denies bleeding from rectum, denies diverticulitis, denies constipation, denies diarrhea, denies loss of stool control, and denies hernias. Kidney/Bladder: The patient denies kidney stones, denies urine infections, and denies bloody urine. Skin: The patient denies a history of skin cancer, denies bleeding/changing moles, and denies a history of skin rash. Neurologic: The patient denies a history of epilepsy/convulsions, denies headaches, denies head/spinal injuries, and denies stroke/TIA. Psychiatric: The patient denies psychiatric medications, denies depression, and denies voices, denies substance abuse. Endocrine: The patient denies thyroid disorders, denies diabetes, and denies hormonal problems. Hematologic: The patient denies a history of bruising, denies bleeding, and denies anemia, denies blood clots. Infections: The patient denies a history of measles and mumps, denies rheumatic fever, and denies sexually transmitted diseases. Musculoskeletal: The patient NOTES back pain/injury, NOTES back problems, denies sciatica, denies knee/foot trouble, NOTES arthritis, or denies gout. When was patient's last Mammogram screening? 11/23/2022 Last Colonoscopy: None Elaine Steven RN PHYSICAL EXAMINATION: General: The patient is 67 year old female, well nourished, well hydrated in no acute distress. Thepatient is oriented to time, place, and person. VITALS: Blood pressure 124/78, pulse 85, temperature 36.4 C (97.5 F), height 162.6 cm (5' 4), weight 52.8 kg (116 lb 6.4 oz), SpO2 99 %. Body mass index is 19.98 kg/m . HEENT: Normal cephalic, ataumatic, pupils are equally round, sclera are anicteric, mucous membranesare moist, oropharynx is clear. Neck has no masses, asymmetry or lymphadenopathy. Thyroid is unremarkable. Respiratory: Clear to auscultation and percussion. Normal respiratory excursion and pattern. Cardiac: Examination is regular rate and rhythm. Abdominal exam: Soft, nontender, with no palpable masses. No hepatosplenomegaly. No palpable hernias. Rectal exam: exam deferred Extremities: no clubbing, cyanosis or edema. No adenopathy. Other: LABORATORY VALUES: As Noted RADIOLOGIC STUDIES: As Noted Assessment IMPRESSION: Upper abdominal pain, need for screening colonoscopy, likely asymptomatic gallstone PLAN: I plan to perform upper and lower endoscopy. We discussed the risks and benefits of the planned endoscopy. I have informed the patient that complications can occur including failure to completethe endoscopy and perforation. The patient had the opportunity to ask questions concerning the planned endoscopy. My staff has also explained the procedure to the patient in understandable terms and has given the patient printed material concerning the procedure. The patient freely consents to surgery. I plan to use golytely bowel preparation for endoscopy I plan for monitored anesthetic care. Diagnoses: (R10.11) RUQ pain (K21.9) GERD without esophagitis (Z12.11) Screening for colon cancer My findings have been communicated to Dr. Bridget De Luna MD via shared medical record. This note will be forwarded to Dr. Bridget De Luna MD. Return to Clinic: The patient is instructed to follow-up with me after the testing has been completed. David Ortega MD documented in this encounterG[facility]04-27-[facility]23 Nurse Note* Elaine Steven RN - 01/26/2023 9:58 AM EDT REVIEW OF SYSTEMS: General: The patient NOTES fatigue, denies weight loss, denies weight gain, denies feeling hot, anddenies feelings of cold. Eyes: The patient denies glaucoma, denies eye injury/surgery, wears glasses or contacts. Ear/Nose/Throat: The patient NOTES allergies, denies hayfever, denies ear infections, and denies bloody noses. Cardiovascular: The patient denies chest pain, denies heart disease, NOTES high blood pressure,denies cardiac stent, denies prior heart attack, denies irregular heart beat, NOTES high cholesterol, denies poor circulation, denies heart failure, other cardiac issues, denies claudication, denies cold feet, denies peripheral arterial stent. Respiratory: The patient denies tuberculosis, denies pneumonia, denies frequent cough, denies pulmonary embolism, denies shortness of breath, and denies coughing up blood. Gastrointestinal: The patient denies difficulty swallowing, NOTES acid reflux, denies ulcers, denies vomiting, denies jaundice/hepatitis, NOTES gallbladder problems, denies black or tarry stools, denies hemorrhoids, denies bleeding from rectum, denies diverticulitis, denies constipation, denies diarrhea, denies loss of stool control, and denies hernias. Kidney/Bladder: The patient denies kidney stones, denies urine infections, and denies bloody urine. Skin: The patient denies a history of skin cancer, denies bleeding/changing moles, and denies a history of skin rash. Neurologic: The patient denies a history of epilepsy/convulsions, denies headaches, denies head/spinal injuries, and denies stroke/TIA. Psychiatric: The patient denies psychiatric medications, denies depression, and denies voices, denies substance abuse. Endocrine: The patient denies thyroid disorders, denies diabetes, and denies hormonal problems. Hematologic: The patient denies a history of bruising, denies bleeding, and denies anemia, denies blood clots. Infections: The patient denies a history of measles and mumps, denies rheumatic fever, and denies sexually transmitted diseases. Musculoskeletal: The patient NOTES back pain/injury, NOTES back problems, denies sciatica, denies knee/foot trouble, NOTES arthritis, or denies gout. When was patient's last Mammogram screening? 11/23/2022 Last Colonoscopy: None Elaine Steven RN documented in this encounterGlen[facility]04-27-2023 Instructions* Patient Instructions* David Ortega MD - 01/26/2023 9:36 AM EDT Images from the original note were not included. Bowel Preparation Instructions for: Golytely, Nulytely, Trilyte or Colyte (polyethylene glycol 3350and electrolytes) IF YOU DO NOT FOLLOW THESE DIRECTIONS, YOUR COLONOSCOPY WILL BE CANCELLED. [place] Instructions: Your bowel must be empty so that your doctor can clearly view your colon. Follow all of the instructions in this handout EXACTLY as they are written. Do NOT eat any solid food the ENTIRE day before your colonoscopy. Drink only clear liquids. Buy your bowel preparation at least 5 days before your colonoscopy. TRANSPORTATION on the Day of Your Exam A responsible person MUST be present with you at Check In prior to your colonoscopy and REMAIN in the endoscopy area until you are discharged. You are NOT ALLOWED to drive, take a taxi or bus, or leave the Endoscopy Center ALONE. If you do not have a responsible otr flatbed company truck driver (family member or friend) with you to take you home, your exam cannot be done with sedation and will be cancelled. Please bring a list of all of your current medications, including any Over-the Counter medications with you. Medications If you take insulin, diabetic medications or blood thinners such as Coumadin (warfarin), Plavix (clopidogrel), Ticlid (ticlopidine hydrochloride), Agrylin (anagrelide), Xarelto (Rivaroxaban), Pradaxa(Dabigatran), Eliquis (Apixaban), and Effient (Prasugrel). You MUST call the doctors who orders those medicines for instructions on altering the dosage before your colonoscopy. All other medications should be taken the day of the exam with a sip of water including ASPIRIN. Five (5) Days Before Your Colonoscopy Do NOT take medicines that stop diarrhea - such as Imodium, Kaopectate, or Pepto Bismol. Do NOT take fiber supplements - such as Metamucil, Citrucel, or Perdiem. Do NOT take products that contain iron - such as multi-vitamins (the label lists what is in the products). Do NOT take Vitamin E. Buy the prescription bowel preparation solution at your local pharmacy or drugstore pharmacy. 09/2019 Bowel Preparation Instructions for: Golytely, Nulytely, Trilyte or Colyte (polyethylene glycol 3350and electrolytes) Three (3) Days Before Your Colonoscopy Do NOT eat high-fiber foods - such as popcorn, beans, seeds (flax, sunflower, quinoa), multigrain bread, nuts, salad/vegetables, or fresh and dried fruit. One (1) Day Before Your Colonoscopy Only drink clear liquids the ENTIRE DAY before your colonoscopy. Do NOT eat any solid foods. Drink at least 8 ounces of clear liquids every hour after waking up. The clear liquids you can drink include: Clear Liquid (NO RED LIQUIDS) DO NOT DRINK Gatorade, Pedialyte or Powerade Clear broth or bouillon Coffee or tea (no milk or non-dairy creamer) Carbonated and non-carbonated soft drinks Mark-Aid or other fruit flavored drinks Strained fruit juices (no pulp) Jell-O, popsicles, hard candy Water Alcohol Milk or non-dairy creamers Noodles or vegetables in soup Juice with pulp Liquid you cannot see through Do not use tobacco/vaping products The bowel preparation solution will be consumed in two parts. Mix the solution the evening before your colonoscopy and refrigerate before drinking. You may add the flavor pack that came with the bowel preparation. Do NOT add ice, sugar or any other flavorings to the solution. Part 1 At 6:00 PM - Evening before your colonoscopy Drink an 8-oz glass of bowel preparation every 10 minutes for a total of 8 glasses. You may continue to drink clear liquids until midnight. Part 2 On the day of your colonoscopy you may drink clear liquids up to (three) 3 hours before your procedure. 4 1/2 hours before your colonoscopy Drink an 8-oz glass of bowel preparation every 10 minutes for a total of 8 glasses. Fifteen (15) minutes later, drink an 8-oz glass of clear liquids every 15 minutes for a total of 2 glasses. You may continue to drink clear liquids up to (three) 3 hours before your exam. 2 09/2019 documented in this encounterGlen[facility]04-24-2023 Miscellaneous Notes* Telephone Encounter - Alta Lazo MA - 01/23/2023 8:26 AM EDT PLEASE SEE PT [facility] MESSAGE 01/23/23. Alta Lazo MA * Telephone Encounter - Bridget De Luna MD - 01/23/2023 8:11 AM EDT Us still shows gallstone. No infection but needs to see surgery documented in this encounterGlenbeigh [facility]04-21-2023 History of Present illness Narrative* Em Madrid RDMS - 01/20/2023 10:00 AM EDT Radiology Service Progress Note PATIENT NAME: Terri Villar DATE OF SERVICE: January 20, 2023 TIME: 10:31 AM PATIENT IDENTITY VERIFICATION COMPLETED USING TWO (2) IDENTIFIERS: Name and Date of confirmedby patient verbally. FALL SCREENING: Has the patient had 2 falls in the last year or 1 fall with injury or currently using an Ambulatory Assistive Device (Walker, Cane, Wheelchair, Crutches, etc.)? No PATIENT GENDER DATA: Female. status: : No status: NO. PATIENT RELEVANT IMPLANT DATA REVIEWED: Not Applicable RADIOLOGY DEPARTMENT: Ultrasound PERIPHERAL IV DATA: Not applicable SIGNED BY: Em Madrid RDMS RVT January 20, 2023 10:31 AM documented in this encounterGlenbeigh Hospital04-17-2023 History of Present illness Narrative* Bridget De Luna MD - 01/16/2023 9:16 AM EDT Patient presents with: Fatigue HPI: Patient presents today for office visit for fatigue and feeling run down the past couple of days. Has been moving over the past 3 weeks from [facility] to [facility]. Feeling very tired. Lots of stress right now. Did have covid a month ago. No fever or chills. No sore throat or cough.No chest pain or edema. No shortness of breath. Was in the ER about 3wks ago in [place] due to nausea and severe abdominal pain. Was told it was Gastritis. Was told to take Protonix but due to kidney issues did not want to start med. Continuing with Pepcid but states she doesn't always get relief from it. Has had on going intermittent nausea and abdominal pain for years. Due for a scope. Discomfort is improving. Has acid some acid brash. She has seen multiple providers for EGD/colonoscopy. Does have an order for an MRI of the pancreas that is pending. Does have a known gallstones. No bloody or black stools. Has itching from prilosec. MEDICATIONS: Current Outpatient Medications Medication Sig famotidine (PEPCID) 20 mg tablet Take 1 tablet by mouth twice daily. Ibefvohycksuprx-Ksvmjxjjm-DM (BROMFED DM) 2-30-10 mg/5 mL syrup Take 5 mL by mouth four times dailyas needed. montelukast (SINGULAIR) 10 mg tablet Take 1 tablet by mouth daily at bedtime. (For allergies) fluticasone (FLONASE) 50 mcg/actuation nasal spray Use 2 Sprays in each nostril once daily. Rinse mouth after use. atorvastatin (LIPITOR) 10 mg tablet Take 1 tablet by mouth daily at bedtime. For cholesterol. lisinopril (ZESTRIL, PRINIVIL) 40 mg tablet Take 1 tablet by mouth once daily. acetaminophen (TYLENOL ARTHRITIS ORAL) Take by mouth. Current Facility-Administered Medications Medication Dose Route Frequency perflutren lipid microspheres 1.3 mL in NaCl (PF) 0.9% 10 mL injection (DEFINITY) INTRAVENOUS DIRECTED PRN sodium chloride 0.9 % (flush) 10 mL (BD POSIFLUSH) 10 mL INTRAVENOUS DIRECTED PRN denosumab 60 mg injection (PROLIA) 60 mg SUBCUTANEOUS Q 6 MONTH ALLERGIES: ALLERGIES Allergen Reactions Amoxicillin Itching Asa [Salicylates] Itching Codeine Itching Cortizone-10 [[place]* Itching Cymbalta [Duloxetin* Intolerance One pill: bruning all over Dolibid [Other] Itching Duricef [Cefadroxil] Itching Dye Shortness of Breath Ct dye. Including rash Entex La [Phenyleph* Itching Erythromycin Itching Flu Vac 2014 (65 Up* Shortness of Breath Keflex [Cephalexin] Itching Levaquin [Levofloxa* Other: See Comments itching Macrobid [Nitrofura* Other: See Comments Fast heart rate Mobic [Meloxicam] Itching Morphine Itching Penicillins Hives Prednisolone Other: See Comments Elevated blood pressure. Has done well with medrol dose april. Prilosec [Omeprazol* Itching Septra [Sulfamethox* Hives Sulfa (Sulfonamide * Hives Tetracycline Hives Can take doxycycline PAST MEDICAL HISTORY Diagnosis Date Chronic kidney disease, stage III (moderate) (HCC) DDD (degenerative disc disease), cervical Dr Knapic History of COVID-19 07/12/202106/2021 MTHFR mutation Osteoarthritis PAST SURGICAL HISTORY Procedure Laterality Date DELIVERY ONLY 10/02/1984 , low transverse FAMILY HISTORY Problem Relation Age of Onset Breast Cancer Mother 74 Heart Brother Diabetes Paternal Grandmother Social History Tobacco Use Smoking status: Former Smokeless tobacco: Never Vaping Use Vaping Use: Never used Substance Use Topics Alcohol use: No Drug use: No Reviewed current medications, allergies, past medical history, surgical history, family history andsocial history today. REVIEW OF SYSTEMS All other reviewed and negative other than HPI. HEALTH MAINTENANCE: Reviewed health maintenance issues today and recommended the following in detail. COLORECTAL CANCER SCREENING - again recommended. VITALS: BP 136/76 Pulse 78 Ht 162.6 cm (5' 4) Wt 51.8 kg (114 lb 3.2 oz) SpO2 98% BMI 19.60 kg/m Last 4 Encounter Wt Readings: Date: Wt: 11/17/2022 51.3 kg (113 lb) 11/05/2022 52.2 kg (115 lb) 10/22/2022 51.3 kg (113 lb 3.2 oz) 10/10/2022 52.2 kg (115 lb) PHYSICAL EXAMINATION: General appearance: Well appearing, alert, in no acute distress, well-hydrated, well nourished. Skin: Skin color, texture, turgor normal, no suspicious rashes or lesions Head: Normocephalic, no masses, lesions, tenderness or abnormalities Eyes: Anicteric sclera. Pupils are equally round and reactive to light. Extraocular movements are intact. Lungs: Lungs clear to auscultation. No wheezing, rhonchi, rales Heart: RRR without murmur, gallop, or rubs. No ectopy Abdomen: Normal abdominal exam, Abdomen soft, non-tender. Bowel sounds normal. No masses, organomegaly Extremities: No deformities, edema, skin discoloration, clubbing or cyanosis. Good capillary refill. ASSESSMENT/PLAN: 1. RUQ pain - ICD9: 789.01, ICD10: R10.11 (primary diagnosis) - reinforced follow through. - US ABD RIGHT UPPER QUADRANT - LIPASE BLD - CONSULT TO GENERAL SURGERY 2. GERD without esophagitis - ICD9: 530.81, ICD10: K21.9 - add carafate - CONSULT TO GENERAL SURGERY 3. Chronic kidney disease, stage 3a (HCC) - ICD9: 585.3, ICD10: N18.31 - stable. 4. Primary hypertension - ICD9: 401.9, ICD10: I10 - good control - Goal of BP <130/80 - CBC + DIFF - COMP METABOLIC PANEL - LIPID PANEL BASIC 5. Gastritis with hemorrhage, unspecified chronicity, unspecified gastritis type - ICD9: 535.51, ICD10: K29.71 - SUCRALFATE 1 GRAM TABLET 6. Fatigue, unspecified type - ICD9: 780.79, ICD10: R53.83 - check lab.s - CBC + DIFF - COMP METABOLIC PANEL - TSH BLD 7. Screening for colon cancer - ICD9: V76.51, ICD10: Z12.11 - CONSULT TO GENERAL SURGERY Bridget De Luna MD documented in this encounterGlen[facility]04-04-2023 Miscellaneous Notes* Telephone Encounter - Daylin Booker LPN - 01/03/2023 1:27 PM EDT Patient has been identified by name and date of : Yes Patient phones for refill(s): Requested Prescriptions Pending Prescriptions Disp Refills famotidine (PEPCID) 20 mg tablet 60 tablet 2 Sig: Take 1 tablet by mouth twice daily. Date of last office visit in primary care: 11/17/2022 Please advise. Thank you. Daylin Booker LPN documented in this encounterGlenbeigh Hospital04-03-2023 Miscellaneous Notes* Telephone Encounter - Isaac Sanchez LPN - 01/02/2023 6:53 PM EDT Patient phones requesting refills as follows: Requested Prescriptions Pending Prescriptions Disp Refills famotidine (PEPCID) 20 mg tablet 60 tablet 2 Sig: Take 1 tablet by mouth twice daily. Please review and advise. Isaac Sanchez LPN SEE PREVIOUS RX REQUEST. PT WAS NOTIFIED RX IS NOT DUE FOR REFILL AND TO CONTACT PHARMACY. documented in this encounterGlenbeigh Hospital04-03-2023 Miscellaneous Notes* Telephone Encounter - Isaac Sanchez LPN - 01/02/2023 6:44 PM EDT Patient phones requesting refills as follows: Requested Prescriptions Pending Prescriptions Disp Refills famotidine (PEPCID) 20 mg tablet 60 tablet 2 Sig: Take 1 tablet by mouth twice daily. Pt is not due for refill. Last rx written 11/14/22 #60 with 2 refills. Pt notified of the same via What's Trending message. Isaac Sanchez LPN documented in this encounterGlenbeigh Hospital03-21-2023 Instructions* Patient Instructions* Herlinda Jett APRN.WILFREDO - 12/20/2022 11:06 AM EDT Start the brom-fed as needed. Continue the flonase. Push fluids. Tylenol for aches/pains if needed. documented in this encounterGlenbeigh Hospital03-21-2023 History of Present illness Narrative* Herlinda Jett APRN.WILFREDO - 12/20/2022 10:49 AM EDT This is a 67 year old female who presents today with: Patient presents with: Recheck: Follow up from [facility] in [place] on 12/07; tested positive for COVID; c/o fatigue, body aches, sinuses HISTORY OF PRESENT ILLNESS: Terri Villar is a 67 year old female. Patient presents with: Recheck: Follow up from [facility] in [place] on 12/07; tested positive for COVID; c/o fatigue, body aches, sinuses Pt presents today with complaint of not feeling well. Pt was in urgent care on 12/07/22. Refers that she tested positive for covid. Still feels tired and run down. Continues with body aches. Sore throat improved. Ears are buzzing. Sinus congestion/burning. Clear drainage. No cough. Little bit of nausea. No fevers/chills. Refers taste and smell is back. She is using her flonase. PAST MEDICAL HISTORY: PAST MEDICAL HISTORY Diagnosis Date Chronic kidney disease, stage III (moderate) (HCC) DDD (degenerative disc disease), cervical Dr Navjot History of COVID-19 07/12/202106/2021 MTHFR mutation Osteoarthritis PAST SURGICAL HISTORY Procedure Laterality Date DELIVERY ONLY 10/02/1984 , low transverse ALLERGIES Amoxicillin, Asa [Salicylates], Codeine, Cortizone-10 [Hydrocortisone], Cymbalta [Duloxetine], Dolibid [Other], Duricef [Cefadroxil], Dye, Entex La [Phenylephrine-Guaifenesin], Erythromycin, Flu Vac 2015 (65 Up)- Mf59c(Pf), Keflex [Cephalexin], Levaquin [Levofloxacin], Macrobid [Nitrofurant oin Monohyd/M-Cryst], Mobic [Meloxicam], Morphine, Penicillins, Prednisolone, Prilosec [Omeprazole], Septra [Sulfamethoxazole-Trimethoprim], Sulfa (Sulfonamide Antibiotics), and Tetracycline MEDICATIONS Current Outpatient Medications Medication Sig famotidine (PEPCID) 20 mg tablet Take 1 tablet by mouth twice daily. montelukast (SINGULAIR) 10 mg tablet Take 1 tablet by mouth daily at bedtime. (For allergies) fluticasone (FLONASE) 50 mcg/actuation nasal spray Use 2 Sprays in each nostril once daily. Rinse mouth after use. atorvastatin (LIPITOR) 10 mg tablet Take 1 tablet by mouth daily at bedtime. For cholesterol. lisinopril (ZESTRIL, PRINIVIL) 40 mg tablet Take 1 tablet by mouth once daily. acetaminophen (TYLENOL ARTHRITIS ORAL) Take by mouth. Current Facility-Administered Medications Medication Dose Route Frequency perflutren lipid microspheres 1.3 mL in NaCl (PF) 0.9% 10 mL injection (DEFINITY) INTRAVENOUS DIRECTED PRN sodium chloride 0.9 % (flush) 10 mL (BD POSIFLUSH) 10 mL INTRAVENOUS DIRECTED PRN denosumab 60 mg injection (PROLIA) 60 mg SUBCUTANEOUS Q 6 MONTH FAMILY HISTORY Problem Relation Age of Onset Breast Cancer Mother 74 Heart Brother Diabetes Paternal Grandmother Social History Tobacco Use Smoking status: Former Smokeless tobacco: Never Vaping Use Vaping Use: Never used Substance Use Topics Alcohol use: No Drug use: No EXAM: BP 140/80 Pulse 65 Resp 18 SpO2 95% PHYSICAL EXAM: General Appearance: Well appearing, alert, in no acute distress, well-hydrated, well nourished.. Skin: Skin color, texture, turgor normal, no suspicious rashes or lesions. Head: Normocephalic, no masses, lesions, tenderness or abnormalities. Eyes: Anicteric sclera. Pupils are equally round and reactive to light. Extraocular movements are intact. \ Oropharynx: Lips, mucosa, and tongue normal, teeth and gums normal, oropharynx normal. Neck: Supple, no adenopathy; thyroid symmetric, normal size, no bruits. Lungs: Lungs clear to auscultation. No wheezing, rhonchi, rales.. Heart: RRR without murmur, gallop, or rubs. No ectopy. Extremities: No deformities, edema, skin discoloration, clubbing or cyanosis. Good capillary refill. Neurologic: Gait normal. ASSESSMENT/PLAN: 1. COVID-19 - ICD9: 079.89, ICD10: U07.1 Aware that covid symptoms can take time to resolve. No signs/symptoms of acute infection. Stay well hydrated. Can continue flonase. Start bromfed as needed for head congestion. - [id number] 2 MG-30 MG-10 MG/5 ML ORAL SYRUP Discussed treatment plan and patient voices understanding. Patient's questions answered appropriately. Medications and potential side effects were discussed and patient voices understanding. Return to the office as scheduled or as needed for worsening/no improvement. Herlinda Jett APRN.WILFREDO documented in this encounterGlen[facility]02-22-2023 History of Present illness Narrative* Brenda Moore RDMS - 11/23/2022 10:30 AM EST Radiology Service Progress Note PATIENT NAME: Terri Villar DATE OF SERVICE: November 23, 2022 TIME: 1:24 PM PATIENT IDENTITY VERIFICATION COMPLETED USING TWO (2) IDENTIFIERS: Name and Date of confirmedby patient verbally. FALL SCREENING: Has the patient had 2 falls in the last year or 1 fall with injury or currently using an Ambulatory Assistive Device (Walker, Cane, Wheelchair, Crutches, etc.)? No PATIENT GENDER DATA: Female. status: : No status: NO. PATIENT RELEVANT IMPLANT DATA REVIEWED: Not Applicable RADIOLOGY DEPARTMENT: Ultrasound PERIPHERAL IV DATA: Not applicable SIGNED BY: Brenda Moore RDMS November 23, 2022 1:24 PM documented in this encounterGlenbeigh Hospital02-22-2023 History of Present illness Narrative* Graciela Gautam RT(R) - 11/23/2022 10:00 AM EST Radiology Service Progress Note PATIENT NAME: Terri Villar DATE OF SERVICE: November 23, 2022 TIME: 9:50 AM PATIENT IDENTITY VERIFICATION COMPLETED USING TWO (2) IDENTIFIERS: Name and Date of confirmedby patient verbally. FALL SCREENING: Has the patient had 2 falls in the last year or 1 fall with injury or currently using an Ambulatory Assistive Device (Walker, Cane, Wheelchair, Crutches, etc.)? No PATIENT GENDER DATA: Female. status: : No status: NO. PATIENT RELEVANT IMPLANT DATA REVIEWED: Not Applicable RADIOLOGY DEPARTMENT: Mammography PERIPHERAL IV DATA: Not applicable SIGNED BY: RT Phong(R) November 23, 2022 9:50 AM documented in this encounterGlenbeigh Hospital02-20-2023 Miscellaneous Notes* Telephone Encounter - Kate Parmar - 11/21/2022 1:18 PM EST Patient informed and verbalized understanding. Does not wish to travel to [place] to see the [facility]. Kate Parmar * Telephone Encounter - Bridget De Luna MD - 11/21/2022 12:43 PM EST See my chart. Her echo is unchanged. We can send her to the [facility] but [place] have to travel to [place] documented in this encounterGlenbeigh Hospital02-16-2023 Instructions* Patient Instructions* Sophie Cope PA-C - 11/17/2022 1:44 PM EST Diarrhea: adults What is diarrhea? Diarrhea is the sudden increase in the frequency and looseness of bowel movements (BMs). Mild diarrhea is the passage of a few loose or mushy BMs. Severe diarrhea is the passage of many watery BMs. The best indicator of the severity of the diarrhea is its frequency. The main complication of diarrhea is dehydration and loss of electrolytes from the loss of too muchbody fluid. Symptoms of dehydration are a dry mouth, the absence of tears, infrequent urination (for example, none in 12 hours), and a darker, concentrated urine. The main goal of diarrhea treatment is to prevent dehydration. What is the cause? Diarrhea is usually caused by a viral infection of the lining of the intestines (gastroenteritis). Sometimes it is caused by bacteria or parasites. Occasionally a food allergy or drinking too much fruit juice may cause diarrhea. If you have just one or two loose bowel movements, the cause is probably something unusual you ate. A diet of nothing but clear fluids for more than 2 days may cause green , watery bowel movements (called starvation stools). How long will it last? Diarrhea usually lasts several days to a week, regardless of the type of treatment. The main goal of treatment is to prevent dehydration. You need to drink enough fluids to replace the fluids lost inthe diarrhea. Don't expect a quick return to solid bowel movements. What should I eat? Increased fluids and dietary changes are the main treatment for diarrhea. Note: One loose bowel movement can mean nothing. Don't start dietary changes until you have had several loose bowel movements. Mild diarrhea (loose BMs) Follow a regular diet with a few simple changes: Eat more foods containing starch. Starchy foods are easily digested during diarrhea. Examples are cereal, breads, crackers, rice, mashed potatoes, and noodles. Drink more water. Avoid all fruit juices. Eat or drink less milk and milk products for a few days. Avoid beans or any other foods that cause loose bowel movements. Severe diarrhea: Fluids: Drink lots of fluids to prevent dehydration. Take water as the main fluid for the first 24 hours of watery diarrhea. Avoid milk and dairy products (except yogurt) as they may cause diarrhea to be worse. When inflammation occurs in the intestines, it may affect the levels of helpful bacteriawhich break down milk sugars. This may result in milk intolerance for a few days until the balance is restored. Avoid fruit juices, because they all make diarrhea worse. Electrolye solutions such as Gatorade or Powerade may help to replace electrolytes and ease muscle aching and cramping. Foods: You should continue to eat during episodes of diarrhea. The choice of food is important. Starchy foods are digested best. Examples of such foods are dried cereals, grains, bread, crackers, rice, noodles, mashed potatoes, carrots, applesauce and bananas. Pretzels or saltine crackers can help meet your need for sodium. On the second day of the diarrhea, if you may add some protein, soft-boiled eggs or yogurt are usually easily digested. How can I take care of myself? Common mistakes: MARK-Aid, soda pop, or water should not be used as the only food because they contain little or no salt. Use only the fluids suggested here. The most dangerous myth is that the intestine should be put to rest. Restricting fluids can cause dehydration. There is no effective, safe drug for diarrhea. Extra fluids and diet therapy work best. Prevention: Diarrhea is very contagious. Always wash your hands after changing diapers or using thetoilet. This is crucial for keeping everyone in the family from getting diarrhea. Vomiting with diarrhea: If you have vomited more than twice, follow the recommended treatment for vomiting instead of this treatment for diarrhea until your child has gone 8 hours without vomiting. When should I call my health care provider? Call IMMEDIATELY OR GO TO THE EMERGENCY ROOM if: There are signs of dehydration (no urine in more than 12 hours, very dry mouth, no tears). Any blood appears in the diarrhea. The diarrhea is severe (more than 8 BMs in the last 8 hours). The diarrhea is watery AND you vomit repeatedly. You are very weak. Call during office hours if: Mucus or pus appears in the BMs. A fever lasts more than 3 days. Mild diarrhea lasts more than 2 weeks. You have other concerns or questions. Medications: generally medications are not helpful or necessary. Even with infectious diarrhea or dysentery, the treatment surrounds fluid replacement and time. If you are experiencing excessive cramping and discomfort, Immodium AD over the counter may help. documented in this encounterGlenbeigh Hospital02-16-2023 History of Present illness Narrative* Sophie Cope PA-C - 11/17/2022 1:34 PM EST 67 year old female with c/o nausea yesterday, no vomiting, diarrhea today x 3 mushy stool. No fever or chills. No URI sx, no exposures. A little sore across abdomen. No ill contacts / HISTORIES FAMILY HISTORY Problem Relation Age of Onset Breast Cancer Mother 74 Heart Brother Diabetes Paternal Grandmother PAST MEDICAL HISTORY Diagnosis Date Chronic kidney disease, stage III (moderate) (HCC) DDD (degenerative disc disease), cervical Dr Knapic History of COVID-19 07/12/202106/2021 MTHFR mutation Osteoarthritis PAST SURGICAL HISTORY Procedure Laterality Date DELIVERY ONLY 10/02/1984 , low transverse Social History Tobacco Use Smoking status: Former Smokeless tobacco: Never Vaping Use Vaping Use: Never used Substance Use Topics Alcohol use: No Drug use: No ACTIVE PROBLEM LIST Osteoarthritis Htn (Hypertension) Mthfr Mutation Ddd (Degenerative Disc Disease), Cervical Mixed Hyperlipidemia Thyroid Nodule Gerd Without Esophagitis Anxiety History of Covid-19 Gallstones Lung Nodule Age-Related Osteoporosis Without Current Pathological Fracture Sinus Congestion Allergic Rhinitis Due to Allergen Chronic Kidney Disease, Stage 3a (Hcc) Pericardial Effusion Current Outpatient Medications Medication Sig Dispense Refill famotidine (PEPCID) 20 mg tablet Take 1 tablet by mouth twice daily. 60 tablet 2 cyclobenzaprine (FLEXERIL) 10 mg tablet Take 1/2 to 1 tablet by mouth three times daily as needed. 21 tablet 1 montelukast (SINGULAIR) 10 mg tablet Take 1 tablet by mouth daily at bedtime. (For allergies) 90 tablet 1 fluticasone (FLONASE) 50 mcg/actuation nasal spray Use 2 Sprays in each nostril once daily. Rinse mouth after use. 3 Each 3 atorvastatin (LIPITOR) 10 mg tablet Take 1 tablet by mouth daily at bedtime. For cholesterol. 90 tablet 3 lisinopril (ZESTRIL, PRINIVIL) 40 mg tablet Take 1 tablet by mouth once daily. 90 tablet 1 acetaminophen (TYLENOL ARTHRITIS ORAL) Take by mouth. Current Facility-Administered Medications Medication Dose Route Frequency Provider Last Rate Last Admin perflutren lipid microspheres 1.3 mL in NaCl (PF) 0.9% 10 mL injection (DEFINITY) INTRAVENOUS DIRECTED PRN Bridget De Luna MD sodium chloride 0.9 % (flush) 10 mL (BD POSIFLUSH) 10 mL INTRAVENOUS DIRECTED PRN Bridget De Luna MD denosumab 60 mg injection (PROLIA) 60 mg SUBCUTANEOUS Q 6 MONTH Herlinda Jett APRN.W[employer] WORKER COLORECTAL CANCER SCREENING due on 09/22/2021 EXAM: BP 112/72 Pulse 73 Temp 36.2 C (97.2 F) Wt 51.3 kg (113 lb) SpO2 97% BMI 19.40 kg/m Pleasant thin woman in no acute distress. Alert and oriented all spheres. Normal affect and cognition. Speech normal. No deficits to learning or comprehension. Skin warm, dry, pink to lips and nailbeds. Normal turgor. Respirations regular and unlabored. HEENT: NCAT. No scleral icterus or conjunctival injection. TM's clear. Nose and oropharynx free from injection or lesion. Oral membranes moist and pink. No cervical lymph nodes. Thyroid non-tender, no masses, or enlargement. Carotids pulses 2+/4+ without bruits. No JVD with HOB at 30 degrees. Abd: scaphoid, soft, bowel sounds active. No pulsatile masses. Non-tender. No rebound, guarding, orperitoneal signs. No masses. No organomegaly. Combs's punch: negative. No flank pain. No inguinal or axillary lymphadenopathy. Extrem: no clubbing or cyanosis. Edema: none. Extremities are warm and pink with prompt capillary refill. ASSESSMENT/PLAN: 1. Diarrhea, unspecified type - ICD9: 787.91, ICD10: R19.7 (primary diagnosis) Mild, monitor for worsening 2. Lead exposure - ICD9: V15.86, ICD10: Z77.011 - LEAD BLOOD Sophie Cope PA-C documented in this encounterGlenbeigh Hospital02-13-2023 Miscellaneous Notes* Telephone Encounter - Brianna Varghese Ma - 11/14/2022 2:02 PM EST Last OV: 11/05/22 Next OV: None Last Rx: 08/12/22 #60 w/2. Brianna Varghese Ma documented in this encounterGlenbeigh Hospital02-04-2023 History of Present illness Narrative* Paige Marino RT(R) - 11/05/2022 11:50 AM EST Radiology Service Progress Note PATIENT NAME: Terri Villar DATE OF SERVICE: November 05, 2022 TIME: 11:54 AM PATIENT IDENTITY VERIFICATION COMPLETED USING TWO (2) IDENTIFIERS: Name and Date of confirmedby patient verbally. FALL SCREENING: Has the patient had 2 falls in the last year or 1 fall with injury or currently using an Ambulatory Assistive Device (Walker, Cane, Wheelchair, Crutches, etc.)? No PATIENT GENDER DATA: Female. status: : No status: NO. PATIENT RELEVANT IMPLANT DATA REVIEWED: Yes RADIOLOGY DEPARTMENT: General X-ray: Exam(s) Completed: Skull X-Ray mandible PERIPHERAL IV DATA: Not applicable SIGNED BY: RT Miguel(R) November 05, 2022 11:54 AM documented in this encounterGlenbeigh Hospital02-04-2023 History of Present illness Narrative* Bridget De Luna MD - 11/05/2022 11:16 AM EST Patient presents with: Sinusitis Ear Pain: Left HPI: Patient presents today for office visit for follow up. Had seen Dr. Wesley for some chronic sinus issues but this is different. Started a few days ago. Left ear discomfort. No drainage. No fever. No pain if chewing. No chest pain or shortness of breath. No cough. No new sinus drainage. No sore throat . Sore around the jaw angle when pushing. No palpable lumps or bumps. Has dentures. No issues with fitting She was asking about ct of her lungs for her nodules. She had a second ct done in April so not due again until 04/23 She did have a small pericardial effusion. Cardiology had recommended short term follow up. Echo had been ordered for the fall but she did not do it. See notes from e consult. Had negative rheum labs. Is asymptomatic. They recommended if persistent to consider seeing the pericardial clinic. Issues with bp. MEDICATIONS: Current Outpatient Medications Medication Sig cyclobenzaprine (FLEXERIL) 10 mg tablet Take 1/2 to 1 tablet by mouth three times daily as needed. montelukast (SINGULAIR) 10 mg tablet Take 1 tablet by mouth daily at bedtime. (For allergies) fluticasone (FLONASE) 50 mcg/actuation nasal spray Use 2 Sprays in each nostril once daily. Rinse mouth after use. alendronate (FOSAMAX) 35 mg tablet Take 35 mg by mouth one time a week. atorvastatin (LIPITOR) 10 mg tablet Take 1 tablet by mouth daily at bedtime. For cholesterol. lisinopril (ZESTRIL, PRINIVIL) 40 mg tablet Take 1 tablet by mouth once daily. famotidine (PEPCID) 20 mg tablet Take 1 tablet by mouth twice daily. acetaminophen (TYLENOL ARTHRITIS ORAL) Take by mouth. Current Facility-Administered Medications Medication Dose Route Frequency denosumab 60 mg injection (PROLIA) 60 mg SUBCUTANEOUS Q 6 MONTH ALLERGIES: ALLERGIES Allergen Reactions Amoxicillin Itching Asa [Salicylates] Itching Codeine Itching Cortizone-10 [[place]* Itching Cymbalta [Duloxetin* Intolerance One pill: bruning all over Dolibid [Other] Itching Duricef [Cefadroxil] Itching Dye Shortness of Breath Ct dye. Including rash Entex La [Phenyleph* Itching Erythromycin Itching Flu Vac 2015 (65 Up* Shortness of Breath Keflex [Cephalexin] Itching Levaquin [Levofloxa* Other: See Comments itching Macrobid [Nitrofura* Other: See Comments Fast heart rate Mobic [Meloxicam] Itching Morphine Itching Penicillins Hives Prednisolone Other: See Comments Elevated blood pressure. Has done well with medrol dose paril. Prilosec [Omeprazol* Itching Septra [Sulfamethox* Hives Sulfa (Sulfonamide * Hives Tetracycline Hives Can take doxycycline PAST MEDICAL HISTORY Diagnosis Date Chronic kidney disease, stage III (moderate) (HCC) DDD (degenerative disc disease), cervical Dr Navjot History of COVID-19 07/12/202106/2021 MTHFR mutation Osteoarthritis PAST SURGICAL HISTORY Procedure Laterality Date DELIVERY ONLY 10/02/1984 , low transverse FAMILY HISTORY Problem Relation Age of Onset Breast Cancer Mother 74 Heart Brother Diabetes Paternal Grandmother Social History Tobacco Use Smoking status: Former Smokeless tobacco: Never Vaping Use Vaping Use: Never used Substance Use Topics Alcohol use: No Drug use: No Reviewed current medications, allergies, past medical history, surgical history, family history andsocial history today. REVIEW OF SYSTEMS All other reviewed and negative other than HPI. HEALTH MAINTENANCE: Reviewed health maintenance issues today and recommended the following in detail. COLORECTAL CANCER SCREENING-getting set up. VITALS: BP 110/68 Pulse 73 Temp 36.1 C (97 F) Resp 16 Wt 52.2 kg (115 lb) SpO2 99% BMI 19.74 kg/m Last 4 Encounter Wt Readings: Date: Wt: 10/22/2022 51.3 kg (113 lb 3.2 oz) 10/10/2022 52.2 kg (115 lb) 09/29/2022 52.9 kg (116 lb 9.6 oz) 09/20/2022 52.2 kg (115 lb) PHYSICAL EXAMINATION: General appearance: Well appearing, alert, in no acute distress, well-hydrated, well nourished. Skin: Skin color, texture, turgor normal, no suspicious rashes or lesions Head: Normocephalic, no masses, lesions, tenderness or abnormalities Eyes: Anicteric sclera. Pupils are equally round and reactive to light. Extraocular movements are intact. Ears: External ears normal, canals clear Oropharynx: jaw is mildly tender to touch over angle of the jaw. No pain or crepitus in opening andclosing. No palpable masses. Neck: Supple, no adenopathy; thyroid symmetric, normal size, no bruits Lungs: Lungs clear to auscultation. No wheezing, rhonchi, rales Heart: RRR without murmur, gallop, or rubs. No ectopy Abdomen: Normal abdominal exam, Abdomen soft, non-tender. Bowel sounds normal. No masses, organomegaly ASSESSMENT/PLAN: 1. Pain in lower jaw - ICD9: 784.92, ICD10: R68.84 (primary diagnosis) - ? Musculoskeletal. Get xray. Call if symptoms worsen at all or if not better in one to two weeks.Is reproducible. No palpable mass. Is below the tmj joint. Red flags for re-assessment reviewed with patient in detail. 2. Primary hypertension - ICD9: 401.9, ICD10: I10 - good control - Continue current medication(s) - Recommended regular aerobic exercise. - Goal of BP <130/80 - CBC + DIFF 3. Lung nodule - ICD9: 793.11, ICD10: R91.1 - check ct in April 4. Chronic kidney disease, stage 3a (HCC) - ICD9: 585.3, ICD10: N18.31 - follow labs. 5. Mixed hyperlipidemia - ICD9: 272.2, ICD10: E78.2 - COMP METABOLIC PANEL - LIPID PANEL BASIC 6. Pericardial effusion - ICD9: 423.9, ICD10: I31.39 - recheck echo. If any issues, cardiology recommend we send her to pericardial clinic. - PERFLUTREN LIPID MICROSPHERES 1.1 MG/ML INJECTION IN NS 10 ML - SODIUM CHLORIDE 0.9 % (FLUSH) INJECTION SYRINGE - ECHO Bridget De Luna MD documented in this encounterGlenbeigh Hospital01-27-2023 Miscellaneous Notes* Telephone Encounter - Gisela Quinn RN - 10/28/2022 3:34 PM EST Gela from Dr Morrison's office called and asked to have the last OV note faxed over to provider. Faxed to [phone]. documented in this encounterGlenbeigh Hospital01-21-2023 History of Past illness Narrative* Problem Noted Date Diagnosed Date Resolved Date Sinus congestion 10/22/2022 01/30/2023 History of COVID-19 07/12/2021 01/31/20 23 Overview: 06/2021 Routine General Medical Exam ination at a Health Care Facility 11/10/2008 05/15/2014 documented as of this encounter (statuses as of 08/06/2023) [facility] History of Past illness Narrative* Problem Noted Date Diagnosed Date Resolved Date Sinus congestion 10/22/2022 01/30/2023 History of COVID-19 07/12/2021 01/31/20 23 Overview: 06/2021 Routine General Medical Exam ination at a [facility] 11/10/2008 05/15/2014 documented as of this encounter (statuses as of 08/06/2023) [facility] of Past illness Narrative* Problem Noted Date Diagnosed Date Resolved Date Sinus congestion 10/22/2022 01/30/2023 History of COVID-19 07/12/2021 01/31/20 23 Overview: 06/2021 Routine General Medical Exam ination at a Health Care Facility 11/10/2008 05/15/2014 documented as of this encounter (statuses as of 08/06/2023) [facility] History of Present illness Narrative* Bayron Wesley, - 10/22/2022 11:48 AM EST CC: Terri Villar is a 67 year old female who presents to the office for chronic sinus concerns HPI: Chronic sinusitis, did have a CT brain and sinus in April/May 2022 without other acute findings, isn't interested in considering immunotherapy at this time. Is back to taking claritin and flonase but isn't consistent since the cost over the counter is up to $15 for 1 bottle of flonase. Still withitching in nose, PND and sinus pressure (maxillary sinuses), no fevers or chills. PAST MEDICAL HISTORY Diagnosis Date Chronic kidney disease, stage III (moderate) (HCC) DDD (degenerative disc disease), cervical Dr Navjot History of COVID-19 07/12/202106/2021 MTHFR mutation Osteoarthritis PAST SURGICAL HISTORY Procedure Laterality Date DELIVERY ONLY 10/02/1984 , low transverse Current Outpatient Medications Medication Sig atorvastatin (LIPITOR) 10 mg tablet Take 1 tablet by mouth daily at bedtime. For cholesterol. lisinopril (ZESTRIL, PRINIVIL) 40 mg tablet Take 1 tablet by mouth once daily. famotidine (PEPCID) 20 mg tablet Take 1 tablet by mouth twice daily. acetaminophen (TYLENOL ARTHRITIS ORAL) Take by mouth. montelukast (SINGULAIR) 10 mg tablet Take 1 tablet by mouth daily at bedtime. (For allergies) fluticasone (FLONASE) 50 mcg/actuation nasal spray Use 2 Sprays in each nostril once daily. Rinse mouth after use. alendronate (FOSAMAX) 35 mg tablet Take 35 mg by mouth one time a week. Current Facility-Administered Medications Medication Dose Route Frequency denosumab 60 mg injection (PROLIA) 60 mg SUBCUTANEOUS Q 6 MONTH ALLERGIES Allergen Reactions Amoxicillin Itching Asa [Salicylates] Itching Codeine Itching Cortizone-10 [[place]* Itching Cymbalta [Duloxetin* Intolerance One pill: bruning all over Dolibid [Other] Itching Duricef [Cefadroxil] Itching Dye Shortness of Breath Ct dye. Including rash Entex La [Phenyleph* Itching Erythromycin Itching Flu Vac 2014 (65 Up* Shortness of Breath Keflex [Cephalexin] Itching Levaquin [Levofloxa* Other: See Comments itching Macrobid [Nitrofura* Other: See Comments Fast heart rate Mobic [Meloxicam] Itching Morphine Itching Penicillins Hives Prednisolone Other: See Comments Elevated blood pressure. Has done well with medrol dose april. Prilosec [Omeprazol* Itching Septra [Sulfamethox* Hives Sulfa (Sulfonamide * Hives Tetracycline Hives Can take doxycycline Social History Tobacco Use Smoking status: Former Smokeless tobacco: Never Vaping Use Vaping Use: Never used Substance Use Topics Alcohol use: No Drug use: No ROS: See HPI PE: BP 104/62 Pulse 74 Temp 98.2 Resp 12 Wt 113 lb 3.2 oz (51.3kg) SpO2 98% Gen: A&OX3, NAD, non-toxic appearing HEENT: PERRLA, EOMs intact b/l, nares with anterior and posterior clear drainage, pharynx without erythema, exudate, lesions, + clear post nasal drainage. Uvula midline. MMM, EAC and TM normal b/l Neck: No LAD, no thyromegaly, no meningismus. CV: RRR, no murmur, normal s1s2 Lungs: CTA b/l, no wheezing Skin: No rashes, lesions, or wounds on exposed skin. ASSESSMENT/PLAN: 1. Sinus congestion - ICD9: 478.19, ICD10: R09.81 (primary diagnosis) Add on singulair, continue flonase nasal spray and claritin in the morning. Avoid triggers as able - MONTELUKAST 10 MG TABLET - FLUTICASONE PROPIONATE 50 MCG/ACTUATION NASAL SPRAY,SUSPENSION 2. Seasonal allergic rhinitis due to other allergic trigger - ICD9: 477.8, ICD10: J30.89 Add on singulair, continue flonase nasal spray and claritin in the morning. Avoid triggers as able - MONTELUKAST 10 MG TABLET - FLUTICASONE PROPIONATE 50 MCG/ACTUATION NASAL SPRAY,SUSPENSION 3. Chronic kidney disease, stage 3a (HCC) - ICD9: 585.3, ICD10: N18.31 - eGFR: Stable - Counseled on avoiding regular use of NSAIDs, adequate hydration, potential risk of IV dye Bayron Wesley DO Return if no improvement. Follow up with Bridget De Luna MD. To ER if develops chest pain, shortness of breath Discussed risks, benefits, alternatives, and potential side effects of medications. Patient/Guardian expressed understanding and agreed with the plan. See patient instructions. Bayron Wesley DO [address] [place] [address] documented [facility]23 Instructions* Patient Instructions* Bayron Wesley DO - 10/22/2022 11:[address] chest in April 2023 Repeat thyroid Ultrasound Jun 2023 documented in this [facility]01-13-2023 Miscellaneous Notes* Telephone Encounter - Dianna Durant LPN - 10/14/2022 9:48 AM EST Referral sent. * Telephone Encounter - Bridget De Luna MD - 10/12/2022 3:37 PM EST Placed. * Telephone Encounter - Kate Parmar - 10/12/2022 2:13 PM EST Needs consult to gastro for screening colonoscopy and egd. Kate Parmar documented in this [facility]01-09-2023 Miscellaneous Notes* Telephone Encounter - Cher Waldron - 10/10/2022 10:06 AM ESTSummary: Diagnostic Mammogram PT is scheduled for 10/26/22 at 2:00 PM, for a diagnostic mammogram. Thanks, Cher Waldron, BRANDIE * Telephone Encounter - Leonora Pennington Ma - 10/10/2022 9:46 AM EST Pt informed, verbalized understanding. Please assist with scheduling Diagnostic troy and US of aramis breasts. Leonora Pennington Ma * Telephone Encounter - Rachael Hammond APRN.CNP - 10/10/2022 8:10 AM EST Please let Terri know that there is an asymmetry in both of her breasts taht the radiologist would like to take a closer look at. Please assist her to schedule her diagnostic mammogram and ultrasoundof her breasts. Rachael Hammond APRN.CNP documented in this encounterG[facility]01-09-2023 History of Present illness Narrative* Bridget De Luna MD - 10/10/2022 9:00 AM EST Patient presents with: Headache HPI: Patient presents today for office visit for follow up. ENT: Patient complains of sinus pressure. Duration: started yesterday morning Fever: No. Headache: Yes. Sore throat: No. Ear pain: No. Nasal drainage: Yes. Cough: No. Shortness of breath: No. Nausea: Yes. Vomiting: No. Diarrhea: No. Previous treatment: flonase, pepcid, TUMS and nonasa. MEDICATIONS: Current Outpatient Medications Medication Sig alendronate (FOSAMAX) 35 mg tablet Take 35 mg by mouth one time a week. atorvastatin (LIPITOR) 10 mg tablet Take 1 tablet by mouth daily at bedtime. For cholesterol. lisinopril (ZESTRIL, PRINIVIL) 40 mg tablet Take 1 tablet by mouth once daily. famotidine (PEPCID) 20 mg tablet Take 1 tablet by mouth twice daily. acetaminophen (TYLENOL ARTHRITIS ORAL) Take by mouth. Current Facility-Administered Medications Medication Dose Route Frequency denosumab 60 mg injection (PROLIA) 60 mg SUBCUTANEOUS Q 6 MONTH ALLERGIES: ALLERGIES Allergen Reactions Amoxicillin Itching Asa [Salicylates] Itching Codeine Itching Cortizone-10 [[place]* Itching Cymbalta [Duloxetin* Intolerance One pill: bruning all over Dolibid [Other] Itching Duricef [Cefadroxil] Itching Dye Shortness of Breath Ct dye. Including rash Entex La [Phenyleph* Itching Erythromycin Itching Flu Vac 2014 (65 Up* Shortness of Breath Keflex [Cephalexin] Itching Levaquin [Levofloxa* Other: See Comments itching Macrobid [Nitrofura* Other: See Comments Fast heart rate Mobic [Meloxicam] Itching Morphine Itching Penicillins Hives Prednisolone Other: See Comments Elevated blood pressure. Has done well with medrol dose april. Prilosec [Omeprazol* Itching Septra [Sulfamethox* Hives Sulfa (Sulfonamide * Hives Tetracycline Hives Can take doxycycline PAST MEDICAL HISTORY Diagnosis Date Chronic kidney disease, stage III (moderate) (HCC) DDD (degenerative disc disease), cervical Dr Navjot History of COVID-19 07/12/202106/2021 MTHFR mutation Osteoarthritis PAST SURGICAL HISTORY Procedure Laterality Date DELIVERY ONLY 10/02/1984 , low transverse FAMILY HISTORY Problem Relation Age of Onset Breast Cancer Mother 74 Heart Brother Diabetes Paternal Grandmother Social History Tobacco Use Smoking status: Former Smokeless tobacco: Never Vaping Use Vaping Use: Never used Substance Use Topics Alcohol use: No Drug use: No Reviewed current medications, allergies, past medical history, surgical history, family history andsocial history today. REVIEW OF SYSTEMS All other reviewed and negative other than HPI. HEALTH MAINTENANCE: Reviewed health maintenance issues today and recommended the following in detail. COLORECTAL CANCER SCREENING- again recommended. ADVANCE DIRECTIVE DISCUSSION - does not have dpoa. Discussed. DEPRESSION ASSESSMENT -done negative. VITALS: BP 120/78 Pulse (!) 58 Temp 36.3 C (97.3 F) Wt 52.2 kg (115 lb) SpO2 98% BMI 19.74 kg/m Last 4 Encounter Wt Readings: Date: Wt: 09/29/2022 52.9 kg (116 lb 9.6 oz) 09/20/2022 52.2 kg (115 lb) 09/07/2022 52.1 kg (114 lb 12.8 oz) 08/18/2022 51.7 kg (114 lb) PHYSICAL EXAMINATION: General appearance: Well appearing, alert, in no acute distress, well-hydrated, well nourished. Skin: Skin color, texture, turgor normal, no suspicious rashes or lesions Head: Normocephalic, no masses, lesions, tenderness or abnormalities Eyes: Anicteric sclera. Pupils are equally round and reactive to light. Extraocular movements are intact. Ears: External ears normal, canals clear Nose/Sinuses: Nares normal, septum midline, mucosa normal, no drainage or sinus tenderness Oropharynx: Lips, mucosa, and tongue normal, teeth and gums normal, oropharynx normal Neck: Supple, no adenopathy; thyroid symmetric, normal size, no bruits Lungs: Lungs clear to auscultation. No wheezing, rhonchi, rales Heart: RRR without murmur, gallop, or rubs. No ectopy Abdomen: Normal abdominal exam, Abdomen soft, non-tender. Bowel sounds normal. No masses, organomegaly Extremities: No deformities, edema, skin discoloration, clubbing or cyanosis. Good capillary refill. ASSESSMENT/PLAN: 1. URI, acute - ICD9: 465.9, ICD10: J06.9 - Discussed viral etiology and rationale for treatment. - Symptomatic treatment with prn analgesia - Supportive care with fluids and rest - COVID WITH FLUA+B, ROUTINE Bridget De Luna MD documented in this encounterG[facility]01-09-2023 Miscellaneous Notes* Letter - Mammography Coordinator - 10/10/2022 7:25 AM EST October 10, 2022 PID: [id number] Terri Villar [address] [place] [address] Dear Ms. Villar, Your recent breast imaging exam on 10/07/2022 showed a possible finding that requires additional imaging studies for a complete evaluation. Most such findings are probably benign (not cancer). If you have a healthcare provider who ordered/prescribed your screening mammogram: Please call [phone] or [phone]: [phone] to schedule an appointment for your additional imaging (if youhave not already done so). If you DO NOT have a healthcare provider (ie you did not have an order/prescription for your screening mammogram): Please call to schedule an appointment for your additional imaging (if you have not already done so). You must have an order/prescription from your physician when calling to schedule your appointment. If your order/prescription is not electronic, you must bring the hard copy with you on the day of your exam to avoid delays. Your imaging studies and reports are kept [facility] as part of your permanent medical record, and are available for your continuing care. Thank you for allowing us to help in meeting your health care needs. Sincerely, Dr. Prabhakar Interpreting Radiologist [facility] (Additional imaging) documented in this encounterGlen[facility]01-06-2023 History of Present illness Narrative* Inga Abraham RT(R) - 10/07/2022 11:30 AM EST Radiology Service Progress Note PATIENT NAME: Terri Villar DATE OF SERVICE: October 07, 2022 TIME: 11:08 AM PATIENT IDENTITY VERIFICATION COMPLETED USING TWO (2) IDENTIFIERS: Name and Date of confirmedby patient verbally. FALL SCREENING: Has the patient had 2 falls in the last year or 1 fall with injury or currently using an Ambulatory Assistive Device (Walker, Cane, Wheelchair, Crutches, etc.)? No PATIENT GENDER DATA: Female. status: : No status: NO. PATIENT RELEVANT IMPLANT DATA REVIEWED: Not Applicable RADIOLOGY DEPARTMENT: Mammography PERIPHERAL IV DATA: Not applicable SIGNED BY: RT Osvaldo(R) October 07, 2022 11:08 AM documented in this encounterGlen[facility] Hospital12-30-2022 Miscellaneous Notes* Telephone Encounter - Herlinda Jett APRN.CNP - 09/30/2022 2:30 PM EST Noted. Herlinda Jett APRN.CNP * Telephone Encounter - Dianna Durant LPN - 09/30/2022 2:21 PM EST Patient says that the Prolia injection was too expensive. She did see a Dr in [place] but isn't going to continue to see her. Hoping to move back this way is going to continue care with [facility]. * Telephone Encounter - Herlinda Jett APRN.CNP - 09/30/2022 1:41 PM EST I don't see where this was ever done, but it looks like she is taking fosamax (alendronate) orderedby Dr. Anabel Cobian. Did she transfer care to another provider? * Telephone Encounter - Herlinda Jett APRN.CNP - 06/07/2022 10:41 AM EDT Prolia ordered (clinic administered medication). Can we ensure covered prior to administering and schedule appropriately? Herlinda Jett APRN.CNP documented in this encounterGlen[facility]12-29-2022 History of Present illness Narrative* Bridget De Luna MD - 09/29/2022 11:56 AM EST Patient presents with: Pain, Back: Due to falling down the stairs, 1 week ago HPI: Patient presents today for office visit for follow up . Had mechanical fall down stairs. No head injury or LOC. No numbness or weakness. No issues controlling bowel or bladder. No shortness of breath. No urinary issues. Has used ice and heat and otc meds. MEDICATIONS: Current Outpatient Medications Medication Sig atorvastatin (LIPITOR) 10 mg tablet Take 1 tablet by mouth daily at bedtime. For cholesterol. lisinopril (ZESTRIL, PRINIVIL) 40 mg tablet Take 1 tablet by mouth once daily. famotidine (PEPCID) 20 mg tablet Take 1 tablet by mouth twice daily. acetaminophen (TYLENOL ARTHRITIS ORAL) Take by mouth. cyclobenzaprine (FLEXERIL) 10 mg tablet Take 1/2 to 1 tablet by mouth three times daily as needed. naproxen (NAPROSYN) 500 mg tablet Take 1 tablet by mouth twice daily with meals. Take with food. Current Facility-Administered Medications Medication Dose Route Frequency denosumab 60 mg injection (PROLIA) 60 mg SUBCUTANEOUS Q 6 MONTH ALLERGIES: ALLERGIES Allergen Reactions Amoxicillin Itching Asa [Salicylates] Itching Codeine Itching Cortizone-10 [[place]* Itching Cymbalta [Duloxetin* Intolerance One pill: bruning all over Dolibid [Other] Itching Duricef [Cefadroxil] Itching Dye Shortness of Breath Ct dye. Including rash Entex La [Phenyleph* Itching Erythromycin Itching Flu Vac 2014 (65 Up* Shortness of Breath Keflex [Cephalexin] Itching Levaquin [Levofloxa* Other: See Comments itching Macrobid [Nitrofura* Other: See Comments Fast heart rate Mobic [Meloxicam] Itching Morphine Itching Penicillins Hives Prednisolone Other: See Comments Elevated blood pressure. Has done well with medrol dose april. Prilosec [Omeprazol* Itching Septra [Sulfamethox* Hives Sulfa (Sulfonamide * Hives Tetracycline Hives Can take doxycycline PAST MEDICAL HISTORY Diagnosis Date Chronic kidney disease, stage III (moderate) (HCC) DDD (degenerative disc disease), cervical Dr Morfin History of COVID-19 07/12/202106/2021 MTHFR mutation Osteoarthritis PAST SURGICAL HISTORY Procedure Laterality Date DELIVERY ONLY 10/02/1984 , low transverse FAMILY HISTORY Problem Relation Age of Onset Breast Cancer Mother 74 Heart Brother Diabetes Paternal Grandmother Social History Tobacco Use Smoking status: Former Smokeless tobacco: Never Vaping Use Vaping Use: Never used Substance Use Topics Alcohol use: No Drug use: No Reviewed current medications, allergies, past medical history, surgical history, family history andsocial history today. REVIEW OF SYSTEMS All other reviewed and negative other than HPI. VITALS: BP 108/62 (BP Site: Left Arm, BP Position: Sitting) Pulse 82 Resp 16 Wt 52.9 kg (116 lb 9.6 oz) SpO2 96% BMI 20.01 kg/m Last 4 Encounter Wt Readings: Date: Wt: 09/29/2022 52.9 kg (116 lb 9.6 oz) 09/20/2022 52.2 kg (115 lb) 09/07/2022 52.1 kg (114 lb 12.8 oz) 08/18/2022 51.7 kg (114 lb) PHYSICAL EXAMINATION: General appearance: Well appearing, alert, in no acute distress, well-hydrated, well nourished. Skin: Skin color, texture, turgor normal, no suspicious rashes or lesions Head: Normocephalic, no masses, lesions, tenderness or abnormalities Back BACK: Normal curvature of spine. Tender over lumbar spine. Straight leg test negative. Deep tendon reflexes 2+/4 at patellas. Normal lower extremity strength. ASSESSMENT/PLAN: 1. Lumbar pain - ICD9: 724.2, ICD10: M54.50 - ice and tylenol and flexeril prn. Red flags for re-assessment reviewed with patient in detail. - XR LUMBAR GENERAL 3V AP/LAT/L5-S1 Bridget De Luna MD documented in this encounterG[facility]12-20-2022 History of Present illness Narrative* Adelaida Pichardo PA-C - 09/20/2022 9:41 AM EST Chief Complaint Patient presents with: Sinus Problem HPI Terri Villar is a 67 year old female who presents here today for Above Complaints.. Patient states that she has developed sinus pressure as of yesterday. No cough. No fever. +body aches + headache. No sick exposures. Past medical history, appointments, medications, allergies reviewed. Previous Medical History PAST MEDICAL HISTORY Diagnosis Date Chronic kidney disease, stage III (moderate) (HCC) DDD (degenerative disc disease), cervical Dr Knapic History of COVID-19 07/12/202106/2021 MTHFR mutation Osteoarthritis Previous Surgical History PAST SURGICAL HISTORY Procedure Laterality Date DELIVERY ONLY 10/02/1984 , low transverse Family History FAMILY HISTORY Problem Relation Age of Onset Breast Cancer Mother 74 Heart Brother Diabetes Paternal Grandmother Patient Allergies ALLERGIES Allergen Reactions Amoxicillin Itching Asa [Salicylates] Itching Codeine Itching Cortizone-10 [[place]* Itching Cymbalta [Duloxetin* Intolerance One pill: bruning all over Dolibid [Other] Itching Duricef [Cefadroxil] Itching Dye Shortness of Breath Ct dye. Including rash Entex La [Phenyleph* Itching Erythromycin Itching Flu Vac 2014 (65 Up* Shortness of Breath Keflex [Cephalexin] Itching Levaquin [Levofloxa* Other: See Comments itching Macrobid [Nitrofura* Other: See Comments Fast heart rate Mobic [Meloxicam] Itching Morphine Itching Penicillins Hives Prednisolone Other: See Comments Elevated blood pressure. Has done well with medrol dose april. Prilosec [Omeprazol* Itching Septra [Sulfamethox* Hives Sulfa (Sulfonamide * Hives Tetracycline Hives Can take doxycycline Current Medications Current Outpatient Medications on File Prior to Visit Medication Sig atorvastatin (LIPITOR) 10 mg tablet Take 1 tablet by mouth daily at bedtime. For cholesterol. cyclobenzaprine (FLEXERIL) 10 mg tablet Take 1/2 to 1 tablet by mouth three times daily as needed. naproxen (NAPROSYN) 500 mg tablet Take 1 tablet by mouth twice daily with meals. Take with food. lisinopril (ZESTRIL, PRINIVIL) 40 mg tablet Take 1 tablet by mouth once daily. famotidine (PEPCID) 20 mg tablet Take 1 tablet by mouth twice daily. acetaminophen (TYLENOL ARTHRITIS ORAL) Take by mouth. Current Facility-Administered Medications on File Prior to Visit Medication denosumab 60 mg injection (PROLIA) Social History Social History Tobacco Use Smoking status: Former Smokeless tobacco: Never Vaping Use Vaping Use: Never used Substance Use Topics Alcohol use: No Drug use: No Review of Symptoms REVIEW OF SYSTEMS See above. EXAM: BP 112/86 (BP Site: Left Arm, BP Position: Sitting, BP Cuff Size: Regular Adult) Pulse 80 Temp 36.8 C (98.2 F) Resp 16 Wt 52.2 kg (115 lb) BMI 19.74 kg/m General Appearance: Well appearing, alert, in no acute distress, well-hydrated, well nourished.. Ears: External ears normal, canals clear. Nose/Sinuses: Nares normal, septum midline, mucosa normal, no drainage or sinus tenderness. Neck: Supple, no adenopathy; thyroid symmetric, normal size, no bruits. Lungs: Lungs clear to auscultation. No wheezing, rhonchi, rales.. Heart: RRR without murmur, gallop, or rubs. No ectopy. Health Maintenance List COLORECTAL CANCER SCREENING due on 09/22/2021 MAMMOGRAM due on 10/12/2022 SHINGRIX VACCINE(1 of 2) due on 09/07/2023 COVID-19 VACCINE(2 - Pfizer series) due on 09/07/2023 PNEUMOCOCCAL: 65+(1 - PCV) due on 09/07/2023 SERUM CREATININE due on 06/08/2023 HEMOGLOBIN/HEMATOCRIT due on 06/08/2023 ANNUAL PCP TEAM CHRONIC DISEASE VISIT due on 09/07/2023 BP CONTROLLED (<130/80) due on 09/07/2023 DIABETES SCREEN due on 06/08/2025 LIPID SCREEN due on 07/02/2026 DTAP,TDAP,TD(2 - Td or Tdap) due on 10/13/2031 BONE DENSITY Completed ADVANCE DIRECTIVE DISCUSSION Completed DEPRESSION ASSESSMENT Completed HEPATITIS C SCREENING Completed INFLUENZA Discontinued Data reviewed ASSESSMENT/PLAN: 1. Sinus congestion - ICD9: 478.19, ICD10: R09.81 (primary diagnosis) Likely viral at this point. Check covid/flu Follow up if not improving. - COVID WITH FLUA+B, ROUTINE 2. Body aches - ICD9: 780.96, ICD10: R52 As above. - COVID WITH FLUA+B, ROUTINE Adelaida Pichardo PA-C documented in this encounterGlen[facility]12-07-2022 Instructions* Patient Instructions* Rachael Hammond APRN.CNP - 09/07/2022 11:18 AM EST Have your ribs/chest xray completed. Take the Flexeril as needed. Take the naproxen twice daily for 14 days. documented in this encounterGlenbeigh Hospital12-07-2022 History of Present illness Narrative* Rachael Hammond APRN.CNP - 09/07/2022 10:43 AM EST Chief Complaint Patient presents with: Back Pain: Middle- Radiates into rib area x 2 weeks HPI Terri Villar is a 67 year old female who presents here today for Above Complaints. Today: Bilateral anterior lower rib pain that wraps around both sides. Aches and sharp pains, rates 9/10. Has been present for quite some time but worsened over the past 2 weeks. Recently moved into a house with steps and steps are new for her. Does not hurt to breathe or take deep breaths. Tylenol and heating pad-somewhat helpful. No known injury. Sometimes wakes her up at night. Appetite good. Overall feels good otherwise. Has taken Flexeril before-this makes her tired. No recent illness. Past medical history, appointments, medications, allergies reviewed. Previous Medical History PAST MEDICAL HISTORY Diagnosis Date Chronic kidney disease, stage III (moderate) (HCC) DDD (degenerative disc disease), cervical Dr Morfin History of COVID-19 07/12/202106/2021 MTHFR mutation Osteoarthritis Previous Surgical History PAST SURGICAL HISTORY Procedure Laterality Date DELIVERY ONLY 10/02/1984 , low transverse Family History FAMILY HISTORY Problem Relation Age of Onset Breast Cancer Mother 74 Heart Brother Diabetes Paternal Grandmother Patient Allergies ALLERGIES Allergen Reactions Amoxicillin Itching Asa [Salicylates] Itching Codeine Itching Cortizone-10 [[place]* Itching Cymbalta [Duloxetin* Intolerance One pill: bruning all over Dolibid [Other] Itching Duricef [Cefadroxil] Itching Dye Shortness of Breath Ct dye. Including rash Entex La [Phenyleph* Itching Erythromycin Itching Flu Vac 2014 (65 Up* Shortness of Breath Keflex [Cephalexin] Itching Levaquin [Levofloxa* Other: See Comments itching Macrobid [Nitrofura* Other: See Comments Fast heart rate Mobic [Meloxicam] Itching Morphine Itching Penicillins Hives Prednisolone Other: See Comments Elevated blood pressure. Has done well with medrol dose april. Prilosec [Omeprazol* Itching Septra [Sulfamethox* Hives Sulfa (Sulfonamide * Hives Tetracycline Hives Can take doxycycline Current Medications Current Outpatient Medications on File Prior to Visit Medication Sig lisinopril (ZESTRIL, PRINIVIL) 40 mg tablet Take 1 tablet by mouth once daily. famotidine (PEPCID) 20 mg tablet Take 1 tablet by mouth twice daily. atorvastatin (LIPITOR) 10 mg tablet Take 1 tablet by mouth daily at bedtime. For cholesterol. acetaminophen (TYLENOL ARTHRITIS ORAL) Take by mouth. Current Facility-Administered Medications on File Prior to Visit Medication denosumab 60 mg injection (PROLIA) Social History Social History Tobacco Use Smoking status: Former Smokeless tobacco: Never Vaping Use Vaping Use: Never used Substance Use Topics Alcohol use: No Drug use: No Review of Symptoms REVIEW OF SYSTEMS See HPI, otherwise negative EXAM: BP 110/70 (BP Site: Left Arm, BP Position: Sitting, BP Cuff Size: Regular Adult) Pulse 76 Temp 37.2 C (98.9 F) (Temporal) Resp 16 Wt 52.1 kg (114 lb 12.8 oz) SpO2 96% BMI 19.71 kg/m General Appearance: Well appearing, alert, in no acute distress, well-hydrated, well nourished. andThin. Lungs: Lungs clear to auscultation. No wheezing, rhonchi, rales.. Heart: RRR without murmur, gallop, or rubs. No ectopy. Musculoskeletal: No joint swelling, deformity, or tenderness. Health Maintenance List COLORECTAL CANCER SCREENING due on 09/22/2021 BP CONTROLLED (<130/80) due on 08/24/2022 MAMMOGRAM due on 10/12/2022 SHINGRIX VACCINE(1 of 2) due on 09/07/2023 COVID-19 VACCINE(2 - Pfizer series) due on 09/07/2023 PNEUMOCOCCAL: 65+(1 - PCV) due on 09/07/2023 SERUM CREATININE due on 06/08/2023 HEMOGLOBIN/HEMATOCRIT due on 06/08/2023 ANNUAL PCP TEAM CHRONIC DISEASE VISIT due on 08/18/2023 DIABETES SCREEN due on 06/08/2025 LIPID SCREEN due on 07/02/2026 DTAP,TDAP,TD(2 - Td or Tdap) due on 10/13/2031 BONE DENSITY Completed ADVANCE DIRECTIVE DISCUSSION Completed DEPRESSION ASSESSMENT Completed HEPATITIS C SCREENING Completed INFLUENZA Discontinued Data reviewed Previous records, office notes ASSESSMENT/PLAN: 1. Rib pain - ICD9: 786.50, ICD10: R07.81 (primary diagnosis) Suspect muscular vs costochondritis. UTI r/o - CYCLOBENZAPRINE 10 MG TABLET - XR RIBS BILATERAL/CHEST 4V - NAPROXEN 500 MG TABLET 2. Mixed hyperlipidemia - ICD9: 272.2, ICD10: E78.2 Refill given - ATORVASTATIN 10 MG TABLET 3. Encounter for screening mammogram for breast cancer - ICD9: V76.12, ICD10: Z12.31 - TROY SCREENING Rachael Hammond APRN.CNP Medical Decision Making: Problems: Low: Stable chronic illness Moderate: New problem with uncertain prognosis Data: Unique source(s) for external note(s) reviewed: 1 Unique test result(s) reviewed: 3+ Unique test(s) ordered: 1 Risk: Low: Low risk from testing/treatment Moderate: Drug management Medical Decision Making Level: 4 - Moderate documented in this encounterG[facility]11-21-2022 Miscellaneous Notes* Telephone Encounter - April Garcia Ma - 08/22/2022 9:59 AM EST Pt notified of results via [employer]. April Garcia Ma * Telephone Encounter - Gisela Quinn RN - 08/19/2022 4:28 PM EST Called and left a voicemail for the Patient to call back and ask for a nurse to receive the providers message. Gisela Quinn RN * Telephone Encounter - Cher Crabtree APRN.CNP - 08/19/2022 3:00 PM EST Can you please call the patient and let her know that her urine culture came back normal. No signs of infection at this time. I would recommend that she follow-up with her urologist if she continues to have urinary symptoms. Thank you. Cher Crabtree APRN.CNP documented in this encounterGlen[facility]igh Hospital11-17-2022 Instructions* Patient Instructions* Cher Crabtree APRN.CNP - 08/18/2022 7:36 AM EST Urine culture pending. Recommend increase water intake, AZO urine relief (pyridium) as needed for burning with urination. Follow up pending test results or sooner as needed. Call the office with any worsening symptoms documented in this encounterGlen[facility]11-17-[facility]22 History of Present illness Narrative* Cher Crabtree APRN.CNP - 08/18/2022 7:20 AM EST This is a 67 year old female who presents today with: Patient presents with: Acute Visit: possible UTI, having burning HISTORY OF PRESENT ILLNESS: Terri Villar is a 67 year old female. Patient presents with: Acute Visit: possible UTI, having burning Here in the office for concerns for UTI. Dysuria started last night. Noticed increased urinary frequency. No hematuria, fever, or chills. Saw Dr. Cool (Urology) for recurrent UTI, refers that testing was WNL. History of interstitial cystitis. PAST MEDICAL HISTORY: PAST MEDICAL HISTORY Diagnosis Date Chronic kidney disease, stage III (moderate) (HCC) DDD (degenerative disc disease), cervical Dr Morfin History of COVID-19 07/12/202106/2021 MTHFR mutation Osteoarthritis PAST SURGICAL HISTORY Procedure Laterality Date DELIVERY ONLY 10/02/1984 , low transverse ALLERGIES Amoxicillin, Asa [Salicylates], Codeine, Cortizone-10 [Hydrocortisone], Cymbalta [Duloxetine], Dolibid [Other], Duricef [Cefadroxil], Dye, Entex La [Phenylephrine-Guaifenesin], Erythromycin, Flu Vac 2015 (65 Up)- Mf59c(Pf), Keflex [Cephalexin], Levaquin [Levofloxacin], Macrobid [Nitrofurant oin Monohyd/M-Cryst], Mobic [Meloxicam], Morphine, Penicillins, Prednisolone, Prilosec [Omeprazole], Septra [Sulfamethoxazole-Trimethoprim], Sulfa (Sulfonamide Antibiotics), and Tetracycline MEDICATIONS Current Outpatient Medications Medication Sig lisinopril (ZESTRIL, PRINIVIL) 40 mg tablet Take 1 tablet by mouth once daily. famotidine (PEPCID) 20 mg tablet Take 1 tablet by mouth twice daily. atorvastatin (LIPITOR) 10 mg tablet Take 1 tablet by mouth daily at bedtime. For cholesterol. acetaminophen (TYLENOL ARTHRITIS ORAL) Take by mouth. Current Facility-Administered Medications Medication Dose Route Frequency denosumab 60 mg injection (PROLIA) 60 mg SUBCUTANEOUS Q 6 MONTH FAMILY HISTORY Problem Relation Age of Onset Breast Cancer Mother 74 Heart Brother Diabetes Paternal Grandmother Social History Tobacco Use Smoking status: Former Smokeless tobacco: Never Vaping Use Vaping Use: Never used Substance Use Topics Alcohol use: No Drug use: No REVIEW OF SYSTEMS GENERAL: No weight loss, malaise or fevers/chills HEENT: Negative for frequent or significant headaches, No changes in hearing or vision. NECK: Negative for lumps, goiter, pain and significant neck swelling RESPIRATORY: Negative for cough, hemoptysis, wheezing, dyspnea or shortness of breath CARDIOVASCULAR: Negative for chest pain, leg swelling, orthopnea, or palpitations GI: No nausea, vomiting, or diarrhea/constipation. No hematochezia/melena. No heartburn or reflux symptoms. : + Dysuria MUSCULOSKELETAL: Negative for joint pain or swelling. SKIN: Negative for lesions, rash, and itching ENDOCRINE: Negative for cold or heat intolerance, polyuria, polydipsia and goiter NEURO: No history of headaches, syncope, paralysis, seizures or tremors MOOD: Negative for depression, anxiety, or suicidal ideation. EXAM: BP 128/90 Pulse 78 Resp 16 Wt 51.7 kg (114 lb) SpO2 97% BMI 19.57 kg/m PHYSICAL EXAM: General Appearance: Well appearing, alert, in no acute distress, well-hydrated, well nourished.. Skin: Skin color, texture, turgor normal, no suspicious rashes or lesions. Head: Normocephalic, no masses, lesions, tenderness or abnormalities. Eyes: Anicteric sclera. Extraocular movements are intact. Lungs: Lungs clear to auscultation. No wheezing, rhonchi, rales.. Heart: RRR without murmur, gallop, or rubs. No ectopy. Abdomen: Abdomen soft, Bowel sounds normal. No masses, organomegaly, Negative CVA tenderness. + Suprapubic fullness Extremities: No deformities, edema, skin discoloration, clubbing or cyanosis. Good capillary refill. Neurologic: Gait normal. Reflexes normal and symmetric. Sensation grossly intact. UA: + Trace blood and leukocytes. ASSESSMENT/PLAN: 1. Dysuria - ICD9: 788.1, ICD10: R30.0 recurrent - UA positive for jonny esterase and hematuria - Send urine for culture - Patient education for prevention given - Due to history of interstitial cystitis we will wait to treat pending urine culture. - Recommend increasing water intake and may use Azo [id number]. - URINE CULTURE Follow up pending test results or sooner as needed. Discussed treatment plan and patient voices understanding. Patient's questions answered appropriately. Medications and potential side effects were discussed and patient voices understanding. Cher Crabtree APRN.WILFREDO This note was partially generated using [employer] voice recognition system. Note was reviewed for accuracy. There may be minor misspellings or grammar miscues with [employer] voice recognition. documented in this encounterGlen[facility]11-11-2022 Miscellaneous Notes* Telephone Encounter - Veronica Dial MA - 08/12/2022 8:28 AM EST Patient has been identified by name and date of : Yes Requested Prescriptions Pending Prescriptions Disp Refills famotidine (PEPCID) 20 mg tablet 60 tablet 2 Sig: Take 1 tablet by mouth twice daily. RX INSTRUCTIONS: Patient aware RX will be sent to pharmacy. No need to notify patient. Veronica Dial MA Izaiah: 07/2022 No appointment scheduled Nov: 06/2022 documented in this encounterGlen[facility] Hospital11-11-2022 Miscellaneous Notes* Telephone Encounter - Veronica Dial MA - 08/12/2022 8:00 AM EST Patient has been identified by name and date of : Yes Requested Prescriptions Pending Prescriptions Disp Refills lisinopril (ZESTRIL, PRINIVIL) 40 mg tablet 90 tablet 1 Sig: Take 1 tablet by mouth once daily. RX INSTRUCTIONS: Patient aware RX will be sent to pharmacy. No need to notify patient. Veronica Dial MA Izaiah; 07/2022 No appointment scheduled Last refill: 01/2022 documented in this encounterGlen[facility]10-13-[facility]22 History of Present illness Narrative* Bridget De Luna MD - 07/14/2022 11:34 AM EDT Patient presents with: Sinus Problem HPI: Patient presents today for office visit for ENT: Patient complains of sinus pressure. Frontal and maxillary. Duration: couple weeks Fever: No. Headache: Yes. Sore throat: No. Ear pain: little bit. Nasal drainage: Yes. Cough: No. Shortness of breath: No. Nausea: No. Vomiting: No. Diarrhea: No. Previous treatment: OTC non ASA, nasocort. Blowing drainage. No color. Comes and goes. Seems to be from moving into her new home. Thinks it is allergies. Does not feel ill. MEDICATIONS: Current Outpatient Medications Medication Sig famotidine (PEPCID) 20 mg tablet Take 1 tablet by mouth twice daily. lisinopril (ZESTRIL, PRINIVIL) 40 mg tablet Take 1 tablet by mouth once daily. atorvastatin (LIPITOR) 10 mg tablet Take 1 tablet by mouth daily at bedtime. For cholesterol. acetaminophen (TYLENOL ARTHRITIS ORAL) Take by mouth. Current Facility-Administered Medications Medication Dose Route Frequency denosumab 60 mg injection (PROLIA) 60 mg SUBCUTANEOUS Q 6 MONTH ALLERGIES: ALLERGIES Allergen Reactions Amoxicillin Itching Asa [Salicylates] Itching Codeine Itching Cortizone-10 [[place]* Itching Cymbalta [Duloxetin* Intolerance One pill: bruning all over Dolibid [Other] Itching Duricef [Cefadroxil] Itching Dye Shortness of Breath Ct dye. Including rash Entex La [Phenyleph* Itching Erythromycin Itching Flu Vac 2014 (65 Up* Shortness of Breath Keflex [Cephalexin] Itching Levaquin [Levofloxa* Other: See Comments itching Macrobid [Nitrofura* Other: See Comments Fast heart rate Mobic [Meloxicam] Itching Morphine Itching Penicillins Hives Prednisolone Other: See Comments Elevated blood pressure. Has done well with medrol dose april. Prilosec [Omeprazol* Itching Septra [Sulfamethox* Hives Sulfa (Sulfonamide * Hives Tetracycline Hives Can take doxycycline PAST MEDICAL HISTORY Diagnosis Date Chronic kidney disease, stage III (moderate) (HCC) DDD (degenerative disc disease), cervical Dr Knapic History of COVID-19 07/12/202106/2021 MTHFR mutation Osteoarthritis PAST SURGICAL HISTORY Procedure Laterality Date DELIVERY ONLY 10/02/1984 , low transverse FAMILY HISTORY Problem Relation Age of Onset Breast Cancer Mother 74 Heart Brother Diabetes Paternal Grandmother Social History Tobacco Use Smoking status: Former Smokeless tobacco: Never Vaping Use Vaping Use: Never used Substance Use Topics Alcohol use: No Drug use: No Reviewed current medications, allergies, past medical history, surgical history, family history andsocial history today. REVIEW OF SYSTEMS GI: No nausea, vomiting, or diarrhea All other reviewed and negative other than HPI. HEALTH MAINTENANCE: Reviewed health maintenance issues today and recommended the following in detail. SHINGRIX VACCINE(1 of 2) Never done PNEUMOCOCCAL: 65+(1 - PCV) Never done COVID-19 VACCINE(2 - Pfizer series) due on 05/12/2021 COLORECTAL CANCER SCREENING-needs rescheduled. DEPRESSION ASSESSMENTdone MAMMOGRAM due on 10/12/2022 VITALS: BP 100/65 Pulse 76 Temp 36.3 C (97.3 F) (Tympanic) Wt 51.3 kg (113 lb) BMI 19.40 kg/m Last 4 Encounter Wt Readings: Date: Wt: 07/14/2022 51.3 kg (113 lb) 06/08/2022 51.7 kg (114 lb) 06/07/2022 52.2 kg (115 lb) 05/30/2022 50.8 kg (112 lb) PHYSICAL EXAMINATION: General appearance: Well appearing, alert, in no acute distress, well-hydrated, well nourished. Skin: Skin color, texture, turgor normal, no suspicious rashes or lesions Head: Normocephalic, no masses, lesions, tenderness or abnormalities Eyes: Anicteric sclera. Pupils are equally round and reactive to light. Extraocular movements are intact. Ears: External ears normal, canals clear Nose/Sinuses: Nares normal, septum midline, mucosa normal, no drainage or sinus tenderness Oropharynx: Lips, mucosa, and tongue normal, teeth and gums normal, oropharynx normal Neck: Supple, no adenopathy Lungs: Lungs clear to auscultation. No wheezing, rhonchi, rales Heart: RRR without murmur, gallop, or rubs. No ectopy Abdomen: Normal abdominal exam, Abdomen soft, non-tender. Bowel sounds normal. No masses, organomegaly ASSESSMENT/PLAN: 1. Allergy, initial encounter - ICD9: 995.3, ICD10: T78.40XA - Discussed risks and benefits of new medication with the patient. Advised them to call if any sideeffects or questions. Can use mucinex prn. Red flags for re-assessment reviewed with patient in detail. Call if symptoms worsen at all or if not better in one to two weeks Reviewed diagnosis and treatment options in detail. Questions were answered. Patient expressed understanding of treatment plan. - LEVOCETIRIZINE 5 MG TABLET Bridget De Luna documented in this encounterGlen[facility] Hospital09-16-2022 Miscellaneous Notes* Telephone Encounter - Shanon Escoto LPN - 06/17/2022 12:11 PM EDT Last office visit: 06/08/22 Problem visit Next appointment scheduled: No future appointments scheduled at this time. Patient phones requesting refills as follows: Requested Prescriptions Pending Prescriptions Disp Refills famotidine (PEPCID) 20 mg tablet 60 tablet 2 Sig: Take 1 tablet by mouth twice daily. Please review and advise. Shanon Escoto LPN documented in this encounterGlenbeigh Hospital09-08-2022 Miscellaneous Notes* Telephone Encounter - Joanne Zee - 06/09/2022 9:46 AM EDT Spoke with patient declined to schedule as she may be moving. Placed recall letter for a year. * Telephone Encounter - Leonora Pennington Ma - 06/09/2022 9:35 AM EDT Pt informed, verbalized understanding. Please assist with scheduling thyroid US in 1 year. Leonora Pennington Ma * Telephone Encounter - Bayron Wesley DO - 06/08/2022 10:06 PM EDT Please inform patient that overall her thyroid US shows that her nodules are stable, no new changesseen, recheck needed in 1 year Bayron Wesley DO documented in this encounterGlenbeigh Hospital09-07-2022 History of Present illness Narrative* RT Steve(R) - 06/08/2022 2:30 PM EDT Radiology Service Progress Note PATIENT NAME: Terri Villar DATE OF SERVICE: June 08, 2022 TIME: 2:33 PM PATIENT IDENTITY VERIFICATION COMPLETED USING TWO (2) IDENTIFIERS: Name and Date of confirmedby patient verbally. FALL SCREENING: Has the patient had 2 falls in the last year or 1 fall with injury or currently using an Ambulatory Assistive Device (Walker, Cane, Wheelchair, Crutches, etc.)? No PATIENT GENDER DATA: Female. status: : No status: NO. PATIENT RELEVANT IMPLANT DATA REVIEWED: Not Applicable RADIOLOGY DEPARTMENT: Ultrasound PERIPHERAL IV DATA: Not applicable SIGNED BY: RT Steve(R) June 08, 2022 2:33 PM documented in this encounterGlen[facility]igh Hospital09-07-2022 History of Present illness Narrative* Bayron Wesley DO - 06/08/2022 10:08 AM EDT CC: Terri Villar is a 67 year old female who presents to the office for fatigue HPI: Fatigue symptoms, patient states that for the last few weeks she is struggling with feeling fatiguesymptoms. Hasn't had labs to evaluate this since December. Has a history of thyroid nodules. Last thyroid US about 1 year ago. Denies any chest pain or pressure, dyspnea or dizziness/LH or edema. Just diagnosed with osteoporosis with recent bone density testing. Will be considering starting on Prolia injections. PAST MEDICAL HISTORY Diagnosis Date Chronic kidney disease, stage III (moderate) (HCC) DDD (degenerative disc disease), cervical Dr Navjot History of COVID-19 07/12/202106/2021 MTHFR mutation Osteoarthritis PAST SURGICAL HISTORY Procedure Laterality Date DELIVERY ONLY 10/02/1984 , low transverse COLONOSCOPY 05/08/2014 Current Outpatient Medications Medication Sig famotidine (PEPCID) 20 mg tablet Take 1 tablet by mouth twice daily. lisinopril (ZESTRIL, PRINIVIL) 40 mg tablet Take 1 tablet by mouth once daily. atorvastatin (LIPITOR) 10 mg tablet Take 1 tablet by mouth daily at bedtime. For cholesterol. acetaminophen (TYLENOL ARTHRITIS ORAL) Take by mouth. Current Facility-Administered Medications Medication Dose Route Frequency [START ON 06/27/2022] denosumab 60 mg injection (PROLIA) 60 mg SUBCUTANEOUS Q 6 MONTH ALLERGIES Allergen Reactions Amoxicillin Itching Asa [Salicylates] Itching Codeine Itching Cortizone-10 [[place]* Itching Cymbalta [Duloxetin* Intolerance One pill: bruning all over Dolibid [Other] Itching Duricef [Cefadroxil] Itching Dye Shortness of Breath Ct dye. Including rash Entex La [Phenyleph* Itching Erythromycin Itching Flu Vac 2014 (65 Up* Shortness of Breath Keflex [Cephalexin] Itching Levaquin [Levofloxa* Other: See Comments itching Macrobid [Nitrofura* Other: See Comments Fast heart rate Mobic [Meloxicam] Itching Morphine Itching Penicillins Hives Prednisolone Other: See Comments Elevated blood pressure. Has done well with medrol dose april. Prilosec [Omeprazol* Itching Septra [Sulfamethox* Hives Sulfa (Sulfonamide * Hives Tetracycline Hives Can take doxycycline Social History Tobacco Use Smoking status: Former Smokeless tobacco: Never Vaping Use Vaping Use: Never used Substance Use Topics Alcohol use: No Drug use: No ROS: See HPI PE: BP 116/72 Pulse 80 Temp (Src) 97 (Right Tympanic) Resp 20 Wt 114 lb (51.7kg) Gen: A&OX3, NAD, non-toxic appearing HEENT: PERRLA, EOMs intact b/l, nares without drainage, pharynx without erythema, exudate, lesions,or drainage. Uvula midline. Neck: No LAD, no thyromegaly, no meningismus. CV: RRR, no murmur Lungs: CTA b/l, no wheezing Skin: No rashes, lesions, or wounds on exposed skin. No edema, normal pulses Thing ASSESSMENT/PLAN: 1. Thyroid nodule - ICD9: 241.0, ICD10: E04.1 (primary diagnosis) Labs as ordered, thyroid US recheck, has been having fatigue - COMP METABOLIC PANEL - CBC + DIFF - TSH BLD - T4 FREE/FREE THYROX - US THYROID/PARATHYROID 2. Vitamin D deficiency - ICD9: 268.9, ICD10: E55.9 Labs as ordered, thyroid US recheck, has been having fatigue - VITAMIN D 25 HYDROXY 3. Fatigue, unspecified type - ICD9: 780.79, ICD10: R53.83 Labs as ordered, thyroid US recheck, has been having fatigue - COMP METABOLIC PANEL - CBC + DIFF - VITAMIN B12 BLOOD - IRON + TIBC - TSH BLD - T4 FREE/FREE THYROX 4. Muscle spasm - ICD9: 728.85, ICD10: M62.838 Labs as ordered, thyroid US recheck, has been having fatigue - COMP METABOLIC PANEL - CBC + DIFF - MAGNESIUM BLD - VITAMIN D 25 HYDROXY - VITAMIN B12 BLOOD - IRON + TIBC Bayron Wesley DO Return if no improvement. Follow up with Bridget De Luna MD. To ER if develops chest pain, shortness of breath Discussed risks, benefits, alternatives, and potential side effects of medications. Patient/Guardian expressed understanding and agreed with the plan. See patient instructions. Bayron Wesley DO [address] [place] [address] documented in this encounterGlenbeigh Hospital09-06-2022 Instructions* Patient Instructions* Herlinda Jett APRN.WASH WORKER - 06/07/2022 10:32 AM EDT Someone should be reaching out to you re: prolia. Let me know if you do not hear anything in the next 1-2 weeks. documented in this encounterGlenbeigh Hospital09-06-2022 History of Present illness Narrative* Herlinda Jett APRN.CNP - 06/07/2022 10:21 AM EDT This is a 67 year old female who presents today with: Patient presents with: Osteoporosis HISTORY OF PRESENT ILLNESS: Terri Villar is a 67 year old female. Patient presents with: Osteoporosis Patient presents today to follow-up on recent test results. She had a DEXA scan that showed worsening osteoporosis. She is here today to discuss treatment options. PAST MEDICAL HISTORY: PAST MEDICAL HISTORY Diagnosis Date Chronic kidney disease, stage III (moderate) (HCC) DDD (degenerative disc disease), cervical Dr Morfin History of COVID-19 07/12/202106/2021 MTHFR mutation Osteoarthritis PAST SURGICAL HISTORY Procedure Laterality Date DELIVERY ONLY 10/02/1984 , low transverse COLONOSCOPY 05/08/2014 ALLERGIES Amoxicillin, Asa [Salicylates], Codeine, Cortizone-10 [Hydrocortisone], Cymbalta [Duloxetine], Dolibid [Other], Duricef [Cefadroxil], Dye, Entex La [Phenylephrine-Guaifenesin], Erythromycin, Flu Vac 2015 (65 Up)- Mf59c(Pf), Keflex [Cephalexin], Levaquin [Levofloxacin], Macrobid [Nitrofurant oin Monohyd/M-Cryst], Mobic [Meloxicam], Morphine, Penicillins, Prednisolone, Prilosec [Omeprazole], Septra [Sulfamethoxazole-Trimethoprim], Sulfa (Sulfonamide Antibiotics), and Tetracycline MEDICATIONS Current Outpatient Medications Medication Sig famotidine (PEPCID) 20 mg tablet Take 1 tablet by mouth twice daily. lisinopril (ZESTRIL, PRINIVIL) 40 mg tablet Take 1 tablet by mouth once daily. atorvastatin (LIPITOR) 10 mg tablet Take 1 tablet by mouth daily at bedtime. For cholesterol. acetaminophen (TYLENOL ARTHRITIS ORAL) Take by mouth. No current facility-administered medications for this visit. FAMILY HISTORY Problem Relation Age of Onset Breast Cancer Mother 74 Heart Brother Diabetes Paternal Grandmother Social History Tobacco Use Smoking status: Former Smokeless tobacco: Never Vaping Use Vaping Use: Never used Substance Use Topics Alcohol use: No Drug use: No EXAM: BP 108/80 Pulse 71 Resp 18 Wt 52.2 kg (115 lb) SpO2 98% BMI 19.74 kg/m PHYSICAL EXAM: General Appearance: Well appearing, alert, in no acute distress, well-hydrated, well nourished.. Skin: Skin color, texture, turgor normal, no suspicious rashes or lesions. Head: Normocephalic, no masses, lesions, tenderness or abnormalities. Eyes: Anicteric sclera. Extraocular movements are intact. . Lungs: Lungs clear to auscultation. No wheezing, rhonchi, rales.. Heart: RRR without murmur, gallop, or rubs. No ectopy. Neurologic: Gait normal. ASSESSMENT/PLAN: 1. Age-related osteoporosis without current pathological fracture - ICD9: 733.01, ICD10: M81.0 - begin tx with prolia - Reviewed the need for Calcium and Vitamin D supplements and weight bearing exercise as tolerated - DENOSUMAB 60 MG/ML SUBCUTANEOUS SYRINGE Patient with history of GERD. She is awaiting the EGD. For this reason, would avoid biphosphonate'sas concern for worsening gastritis or esophagitis. She is agreeable to Prolia. Discussed risks/benefits. Discussed treatment plan and patient voices understanding. Patient's questions answered appropriately. Medications and potential side effects were discussed and patient voices understanding. Return to the office as scheduled or as needed for worsening/no improvement. Herlinda Jett APRN.WILFREDO This note was partially generated using [employer] voice recognition system. Note was reviewed for accuracy. There may be minor misspellings or grammar miscues with [employer] voice recognition. documented in this encounterGlen[facility]igh Hospital08-31-2022 Miscellaneous Notes* Telephone Encounter - Leonela Villafana LPN - 06/01/2022 11:29 AM EDT This has been addressed in TE from today. Leonela Villafana LPN documented in this encounterGlenbeigh Hospital08-31-2022 Miscellaneous Notes* Telephone Encounter - Leonela Villafana LPN - 06/01/2022 11:13 AM EDT Patient notified of results and provider's instructions. Patient verbalizes understanding and will contact Dr Cool. Copy of result faxed to Dr Cool along with Adelaida's message below on fax cover sheet. Leonela Villafana LPN * Telephone Encounter - Adelaida Pichardo PA-C - 06/01/2022 10:44 AM EDT Let patient know that the bacteria that was found in her urine can be evidence of contamination or possibly an infection. I'm wanting an opinion from Dr. Cool. I would suggest she contact her and we will also send results to Dr. Cool. She may decide to treat or may consider other options. Staff: please fax results to Dr. Cool with note stating that I am unsure if needs treated and ifso, i'm not sure which is best treatment option. Can she follow up with patient. Thanks. Adelaida Pichardo PA-C documented in this encounterGlenbeigh Hospital08-30-2022 History of Present illness Narrative* RT Linda(R) - 05/31/2022 11:00 AM EDT Radiology Service Progress Note PATIENT NAME: Terri Villar DATE OF SERVICE: May 31, 2022 TIME: 10:59 AM PATIENT IDENTITY VERIFICATION COMPLETED USING TWO (2) IDENTIFIERS: Name and Date of confirmedby patient verbally. FALL SCREENING: Has the patient had 2 falls in the last year or 1 fall with injury or currently using an Ambulatory Assistive Device (Walker, Cane, Wheelchair, Crutches, etc.)? No PATIENT GENDER DATA: Female. status: : No status: NO. PATIENT RELEVANT IMPLANT DATA REVIEWED: Not Applicable RADIOLOGY DEPARTMENT: Bone Density PERIPHERAL IV DATA: Not applicable SIGNED BY: RT Linda(R) May 31, 2022 10:59 AM documented in this encounterGlenbeigh Hospital08-29-2022 History of Present illness Narrative* Adelaida Pichardo PA-C - 05/30/2022 7:33 AM EDT Chief Complaint Patient presents with: Recheck: Questions about urine results HPI Terri Villar is a 67 year old female who presents here today for Above Complaints.. Patient recently had a cystoscopy and shortly after that she started having some urinary frequency and low pelvic discomfort. No blood in the urine. Symptoms are similar today as they were on Monday. Not worsening. Past medical history, appointments, medications, allergies reviewed. Previous Medical History PAST MEDICAL HISTORY Diagnosis Date Chronic kidney disease, stage III (moderate) (HCC) DDD (degenerative disc disease), cervical Dr Morfin History of COVID-19 07/12/202106/2021 MTHFR mutation Osteoarthritis Previous Surgical History PAST SURGICAL HISTORY Procedure Laterality Date DELIVERY ONLY 10/02/1984 , low transverse COLONOSCOPY 05/08/2014 Family History FAMILY HISTORY Problem Relation Age of Onset Breast Cancer Mother 74 Heart Brother Diabetes Paternal Grandmother Patient Allergies ALLERGIES Allergen Reactions Amoxicillin Itching Asa [Salicylates] Itching Codeine Itching Cortizone-10 [[place]* Itching Cymbalta [Duloxetin* Intolerance One pill: bruning all over Dolibid [Other] Itching Duricef [Cefadroxil] Itching Dye Shortness of Breath Ct dye. Including rash Entex La [Phenyleph* Itching Erythromycin Itching Flu Vac 2014 (65 Up* Shortness of Breath Keflex [Cephalexin] Itching Levaquin [Levofloxa* Other: See Comments itching Macrobid [Nitrofura* Other: See Comments Fast heart rate Mobic [Meloxicam] Itching Morphine Itching Penicillins Hives Prednisolone Other: See Comments Elevated blood pressure. Has done well with medrol dose april. Prilosec [Omeprazol* Itching Septra [Sulfamethox* Hives Sulfa (Sulfonamide * Hives Tetracycline Hives Can take doxycycline Current Medications Current Outpatient Medications on File Prior to Visit Medication Sig famotidine (PEPCID) 20 mg tablet Take 1 tablet by mouth twice daily. lisinopril (ZESTRIL, PRINIVIL) 40 mg tablet Take 1 tablet by mouth once daily. atorvastatin (LIPITOR) 10 mg tablet Take 1 tablet by mouth daily at bedtime. For cholesterol. acetaminophen (TYLENOL ARTHRITIS ORAL) Take by mouth. No current facility-administered medications on file prior to visit. Social History Social History Tobacco Use Smoking status: Former Smokeless tobacco: Never Vaping Use Vaping Use: Never used Substance Use Topics Alcohol use: No Drug use: No Review of Symptoms REVIEW OF SYSTEMS See hpi EXAM: BP 110/78 (BP Site: Left Arm, BP Position: Sitting, BP Cuff Size: Regular Adult) Pulse 72 Temp 36.4 C (97.6 F) Resp 18 Wt 50.8 kg (112 lb) BMI 19.22 kg/m General Appearance: Well appearing, alert, in no acute distress, well-hydrated, well nourished.. Abdomen: Normal abdominal exam, Abdomen soft, non-tender. Bowel sounds normal. No masses, organomegaly. Health Maintenance List SHINGRIX VACCINE(1 of 2) Never done PNEUMOCOCCAL: 65+(1 - PCV) Never done COVID-19 VACCINE(2 - Pfizer series) due on 05/12/2021 COLORECTAL CANCER SCREENING due on 09/22/2021 MAMMOGRAM due on 10/12/2022 DEPRESSION SCREENING due on 02/02/2023 SERUM CREATININE due on 03/14/2023 HEMOGLOBIN/HEMATOCRIT due on 03/14/2023 ANNUAL PCP TEAM CHRONIC DISEASE VISIT due on 05/18/2023 BP CONTROLLED (<130/80) due on 05/27/2023 DIABETES SCREEN due on 03/14/2025 LIPID SCREEN due on 07/02/2026 DTAP,TDAP,TD(2 - Td or Tdap) due on 10/13/2031 BONE DENSITY Completed ADVANCE DIRECTIVE DISCUSSION Completed HEPATITIS C SCREENING Completed INFLUENZA Discontinued Data reviewed Component Latest Ref Rng & Units 05/27/2022 Culture >=100,000 CFU/ml Mixed microbiota (A) ASSESSMENT/PLAN: 1. Urinary frequency - ICD9: 788.41, ICD10: R35.0 recurrent - recommend contacting her urologist - will attempt repeat Urine C&S. - URINE CULTURE Adelaida Pichardo PA-C documented in this encounterGlen[facility]08-26-[facility]22 History of Present illness Narrative* Layo Seals APRN.WASH WORKER - 05/27/2022 2:55 PM EDT Subjective HPI HPI Terri Villar is a 67 year old female who presents today for CC of urinary burning and frequency and low back pain. This started 2 days ago. Has tried nothing for relief. Symptoms are worsened by nothing. Risk factors, past few months has had uti symptoms, all cultures showing contamination orno uti. Sees outside urology. .Patient presents with: Urinary Problem: Lower back pain rated 8, x2 days, burning, frequency with urination, recent Cystoscopy. PAST MEDICAL HISTORY Diagnosis Date Chronic kidney disease, stage III (moderate) (HCC) DDD (degenerative disc disease), cervical Dr Morfin History of COVID-19 07/12/202106/2021 MTHFR mutation Osteoarthritis PAST SURGICAL HISTORY Procedure Laterality Date DELIVERY ONLY 10/02/1984 , low transverse COLONOSCOPY 05/08/2014 ALLERGIES Amoxicillin, Asa [Salicylates], Codeine, Cortizone-10 [Hydrocortisone], Cymbalta [Duloxetine], Dolibid [Other], Duricef [Cefadroxil], Dye, Entex La [Phenylephrine-Guaifenesin], Erythromycin, Flu Vac 2014 (65 Up)- Mf59c(Pf), Keflex [Cephalexin], Levaquin [Levofloxacin], Macrobid [Nitrofurant oin Monohyd/M-Cryst], Mobic [Meloxicam], Morphine, Penicillins, Prednisolone, Prilosec [Omeprazole], Septra [Sulfamethoxazole-Trimethoprim], Sulfa (Sulfonamide Antibiotics), and Tetracycline MEDICATIONS famotidine (PEPCID) 20 mg tablet Take 1 tablet by mouth twice daily. lisinopril (ZESTRIL, PRINIVIL) 40 mg tablet Take 1 tablet by mouth once daily. atorvastatin (LIPITOR) 10 mg tablet Take 1 tablet by mouth daily at bedtime. For cholesterol. acetaminophen (TYLENOL ARTHRITIS ORAL) Take by mouth. FAMILY HISTORY Problem Relation Age of Onset Breast Cancer Mother 74 Heart Brother Diabetes Paternal Grandmother Social History Tobacco Use Smoking status: Former Smokeless tobacco: Never Vaping Use Vaping Use: Never used Substance Use Topics Alcohol use: No Drug use: No Review of Systems Constitutional: Negative for chills, fever and weight loss. Respiratory: Negative for cough, shortness of breath and wheezing. Cardiovascular: Negative for chest pain and palpitations. Gastrointestinal: Negative for abdominal pain, blood in stool, constipation, diarrhea, heartburn, melena, nausea and vomiting. Genitourinary: Positive for dysuria and frequency. Negative for flank pain, hematuria and urgency. Objective Blood pressure 126/74, pulse 81, temperature 36.4 C (97.6 F), resp. rate 16, weight 50.6 kg (111 lb9.6 oz), SpO2 97 %. Physical Exam Constitutional: General: She is not in acute distress. Appearance: Normal appearance. She is not toxic-appearing. Cardiovascular: Rate and Rhythm: Normal rate and regular rhythm. Heart sounds: Normal heart sounds. Pulmonary: Effort: Pulmonary effort is normal. Breath sounds: Normal breath sounds. Abdominal: General: Bowel sounds are normal. Palpations: Abdomen is soft. Tenderness: There is no abdominal tenderness. Skin: General: Skin is warm and dry. ASSESSMENT/PLAN: 1. Urinary frequency - ICD9: 788.41, ICD10: R35.0 acute - UA positive for jonny esterase, hematuria, and nitrates Sill not start atb d/t multiple recent cultures negative, and patient having multiple atb allergiesand intolerances - Send urine for culture, tx per sensitivity - continued s/s see outside urologist. - UA DIP, URINE (POC) - URINE CULTURE Agrees to plan Layo Seals APRN.CNP documented in this encounterGlenbe[facility]08-23-2022 Instructions* Patient Instructions* Em Slade APRN.CNP - 05/24/2022 10:17 AM EDT R.I.C.E. The general care of your injury includes the following: Resting, Icing, Compressing and Elevating the injured area. Remember this as RICE. REST: Limit the use of the injured body part. ICE: By applying ice to the affected area, swelling and pain can be reduced. Place some ice cubes in a re-sealable (Ziploc) bag and add some water. Put a thin washcloth between the bag and your skin.Apply the ice bag to the area for at least 20 minutes. Do this at least 4 times per day. Using the ice for longer times and more frequently is OK. NEVER APPLY ICE DIRECTLY TO THE SKIN. COMPRESS: Compression means to apply pressure around the injured area such as with a splint, cast or an wendy bandage. Compression decreases swelling and improves comfort. Compression should be tight enough to relieve swelling but not so tight as to decrease circulation. Increasing pain, numbness, tingling, or change in skin color, are all signs of decreased circulation. ELEVATE: Elevate the injured part. For example, elevate your foot by placing it on a chair while sitting, or propping it up on pillows when lying down. documented in this encounterGlenbeigh Hospital08-23-2022 History of Present illness Narrative* Em Slade APRN.CNP - 05/24/2022 9:31 AM EDT This note was created using NoteWriter. Subjective Terri Villar is a 67 year old female. 67 year old female with PMH HTN, hyperlipidemia, GERD, OA presents for left elbow pain. Acute onset this past 05/19/22 Denies known trauma or injury. States she woke up with acute pain. Burning Worse with movement. Left elbow Denies known trauma or injury Right hand dominant. Utilized Aspercreme without relief. The history is provided by the patient. No airport shuttle driver was used. Musculoskeletal Problem This is a new problem. The current episode started in the past 7 days. The problem occurs constantly. The problem has been unchanged. Pertinent negatives include no abdominal pain, anorexia, arthralgias, change in bowel habit, chest pain, chills, congestion, coughing, diaphoresis, fatigue, fever, headaches, joint swelling, myalgias, nausea, neck pain, numbness, rash, sore throat, swollen glands, urinary symptoms, vertigo, visual change, vomiting or weakness. Exacerbated by: movement and touching. She has tried acetaminophen for the symptoms. The treatment provided no relief. PAST MEDICAL HISTORY Diagnosis Date Chronic kidney disease, stage III (moderate) (HCC) DDD (degenerative disc disease), cervical Dr Navjot History of COVID-19 07/12/202106/2021 MTHFR mutation Osteoarthritis PAST SURGICAL HISTORY Procedure Laterality Date DELIVERY ONLY 10/02/1984 , low transverse COLONOSCOPY 05/08/2014 ALLERGIES Amoxicillin, Asa [Salicylates], Codeine, Cortizone-10 [Hydrocortisone], Cymbalta [Duloxetine], Dolibid [Other], Duricef [Cefadroxil], Dye, Entex La [Phenylephrine-Guaifenesin], Erythromycin, Flu Vac 2014 (65 Up)- Mf59c(Pf), Keflex [Cephalexin], Levaquin [Levofloxacin], Macrobid [Nitrofurant oin Monohyd/M-Cryst], Mobic [Meloxicam], Morphine, Penicillins, Prednisolone, Prilosec [Omeprazole], Septra [Sulfamethoxazole-Trimethoprim], Sulfa (Sulfonamide Antibiotics), and Tetracycline MEDICATIONS methylPREDNISolone (MEDROL, APRIL,) 4 mg Dose-Pack Follow dosing instructions, take with food. famotidine (PEPCID) 20 mg tablet Take 1 tablet by mouth twice daily. lisinopril (ZESTRIL, PRINIVIL) 40 mg tablet Take 1 tablet by mouth once daily. atorvastatin (LIPITOR) 10 mg tablet Take 1 tablet by mouth daily at bedtime. For cholesterol. acetaminophen (TYLENOL ARTHRITIS ORAL) Take by mouth. FAMILY HISTORY Problem Relation Age of Onset Breast Cancer Mother 74 Heart Brother Diabetes Paternal Grandmother Social History Tobacco Use Smoking status: Former Smokeless tobacco: Never Vaping Use Vaping Use: Never used Substance Use Topics Alcohol use: No Drug use: No Review of Systems Constitutional: Negative for chills, diaphoresis, fatigue and fever. HENT: Negative for congestion and sore throat. Respiratory: Negative for apnea, cough, choking and chest tightness. Cardiovascular: Negative for chest pain, palpitations and leg swelling. Gastrointestinal: Negative for abdominal pain, anorexia, change in bowel habit, diarrhea, nausea and vomiting. Musculoskeletal: Negative for arthralgias, joint swelling, myalgias and neck pain. Left elbow pain Skin: Negative for color change, pallor and rash. Allergic/Immunologic: Negative for environmental allergies, food allergies and immunocompromised state. Neurological: Negative for vertigo, weakness, numbness and headaches. Hematological: Negative for adenopathy. Does not bruise/bleed easily. Objective BP 120/68 Pulse 86 Temp 36.6 C (97.9 F) Resp 16 Wt 51.7 kg (114 lb) SpO2 99% BMI 19.57 kg/m Physical Exam Vitals and nursing note reviewed. Constitutional: General: She is not in acute distress. Appearance: Normal appearance. She is normal weight. She is not ill-appearing, toxic-appearing or diaphoretic. HENT: Head: Normocephalic and atraumatic. Right Ear: Ear canal and external ear normal. Left Ear: Ear canal and external ear normal. Nose: Nose normal. No congestion or rhinorrhea. Mouth/Throat: Mouth: Mucous membranes are moist. Pharynx: No oropharyngeal exudate or posterior oropharyngeal erythema. Eyes: General: Right eye: No discharge. Left eye: No discharge. Extraocular Movements: Extraocular movements intact. Conjunctiva/sclera: Conjunctivae normal. Pupils: Pupils are equal, round, and reactive to light. Cardiovascular: Rate and Rhythm: Normal rate and regular rhythm. Pulses: Normal pulses. Heart sounds: Normal heart sounds. No murmur heard. No friction rub. Pulmonary: Effort: Pulmonary effort is normal. No respiratory distress. Breath sounds: Normal breath sounds. No stridor. No wheezing, rhonchi or rales. Chest: Chest wall: No tenderness. Abdominal: General: Abdomen is flat. There is no distension. Palpations: Abdomen is soft. There is no mass. Tenderness: There is no abdominal tenderness. There is no right CVA tenderness, left CVA tenderness, guarding or rebound. Hernia: No hernia is present. Musculoskeletal: General: No swelling, tenderness, deformity or signs of injury. Normal range of motion. Cervical back: Normal range of motion and neck supple. No rigidity. Right lower leg: No edema. Left lower leg: No edema. Comments: Left posterior lateral elbow with TTP. Full active and passive ROM with discomfort. No erythema. No rash. +neuro +sensation. NO red streaking. Lymphadenopathy: Cervical: No cervical adenopathy. Skin: General: Skin is warm and dry. Capillary Refill: Capillary refill takes less than 2 seconds. Coloration: Skin is not jaundiced or pale. Findings: No bruising, erythema, lesion or rash. Neurological: General: No focal deficit present. Mental Status: She is alert and oriented to person, place, and time. Cranial Nerves: No cranial nerve deficit. Sensory: No sensory deficit. Motor: No weakness. Coordination: Coordination normal. Gait: Gait normal. Psychiatric: Mood and Affect: Mood normal. Behavior: Behavior normal. Thought Content: Thought content normal. Judgment: Judgment normal. Assessment and Plan ASSESSMENT/PLAN: 1. Left elbow pain - ICD9: 719.42, ICD10: M25.522 Acute onset 05/19/22 Denies known trauma or injury No red flags - XR ELBOW SPECIAL VIEWS AP/LAT/OTHER LEFT-negative for fracture or dislocation RICE therapy Wendy wrap PRN Follow up with PCP if symptom persists. Em Slade APRN.CNP documented in this encounterGlen[facility]08-12-2022 Instructions* Patient Instructions* Cher Crabtree APRN.CNP - 05/13/2022 7:12 AM EDT 1.) May use zofran as needed for nausea 2.) Recommend eating a bland diet and advance as tolerating. 3.) Keep up coming appointment with general surgery. 4.) Red flag symptoms go to ER. 5.) Follow up as needed. documented in this encounterGlenbeigh Hospital08-12-2022 History of Present illness Narrative* Cher Crabtree APRN.CNP - 05/13/2022 7:00 AM EDT This is a 67 year old female who presents today with: Patient presents with: Acute Visit: Stomach flu HISTORY OF PRESENT ILLNESS: Terri Villar is a 67 year old female. Patient presents with: Acute Visit: Stomach flu Patient of Dr. De Luna here in the office concerns for GI virus. Nausea that started yesterday that waxes wanes. No abdominal pain or V/D. No fever or chills. Refers she has gall stones and will be seeing Dr. Manriquez in [place] (general surgeon) Monday. Saw Urology on Monday, had cystoscopy completed. Refers nausea started after procedure. No difficulty urinating. PAST MEDICAL HISTORY: PAST MEDICAL HISTORY Diagnosis Date Chronic kidney disease, stage III (moderate) (HCC) DDD (degenerative disc disease), cervical Dr Morfin History of COVID-19 07/12/202106/2021 MTHFR mutation Osteoarthritis PAST SURGICAL HISTORY Procedure Laterality Date DELIVERY ONLY 10/02/1984 , low transverse COLONOSCOPY 05/08/2014 ALLERGIES Amoxicillin, Asa [Salicylates], Codeine, Cortizone-10 [Hydrocortisone], Cymbalta [Duloxetine], Dolibid [Other], Duricef [Cefadroxil], Dye, Entex La [Phenylephrine-Guaifenesin], Erythromycin, Flu Vac 2015 (65 Up)- Mf59c(Pf), Keflex [Cephalexin], Levaquin [Levofloxacin], Macrobid [Nitrofurant oin Monohyd/M-Cryst], Mobic [Meloxicam], Morphine, Penicillins, Prednisolone, Prilosec [Omeprazole], Septra [Sulfamethoxazole-Trimethoprim], Sulfa (Sulfonamide Antibiotics), and Tetracycline MEDICATIONS Current Outpatient Medications Medication Sig famotidine (PEPCID) 20 mg tablet Take 1 tablet by mouth twice daily. lisinopril (ZESTRIL, PRINIVIL) 40 mg tablet Take 1 tablet by mouth once daily. atorvastatin (LIPITOR) 10 mg tablet Take 1 tablet by mouth daily at bedtime. For cholesterol. acetaminophen (TYLENOL ARTHRITIS ORAL) Take by mouth. Current Facility-Administered Medications Medication Dose Route Frequency perflutren lipid microspheres 1.3 mL in NaCl (PF) 0.9% 10 mL injection (DEFINITY) INTRAVENOUS DIRECTED PRN sodium chloride 0.9 % (flush) 10 mL (BD POSIFLUSH) 10 mL INTRAVENOUS DIRECTED PRN perflutren lipid microspheres 1.3 mL in NaCl (PF) 0.9% 10 mL injection (DEFINITY) INTRAVENOUS DIRECTED PRN sodium chloride 0.9 % (flush) 10 mL (BD POSIFLUSH) 10 mL INTRAVENOUS DIRECTED PRN FAMILY HISTORY Problem Relation Age of Onset Breast Cancer Mother 74 Heart Brother Diabetes Paternal Grandmother Social History Tobacco Use Smoking status: Former Smokeless tobacco: Never Vaping Use Vaping Use: Never used Substance Use Topics Alcohol use: No Drug use: No REVIEW OF SYSTEMS GENERAL: No weight loss, malaise or fevers/chills HEENT: Negative for frequent or significant headaches, No changes in hearing or vision. NECK: Negative for lumps, goiter, pain and significant neck swelling RESPIRATORY: Negative for cough, hemoptysis, wheezing, dyspnea or shortness of breath CARDIOVASCULAR: Negative for chest pain, leg swelling, orthopnea, or palpitations GI: + Nausea : No history of dysuria, frequency or incontinence MUSCULOSKELETAL: Negative for joint pain or swelling. SKIN: Negative for lesions, rash, and itching ENDOCRINE: Negative for cold or heat intolerance, polyuria, polydipsia and goiter NEURO: No history of headaches, syncope, paralysis, seizures or tremors MOOD: Negative for depression, anxiety, or suicidal ideation. EXAM: BP 130/70 Pulse 71 Resp 16 Wt 50.3 kg (111 lb) SpO2 99% BMI 19.05 kg/m PHYSICAL EXAM: General Appearance: Well appearing, alert, in no acute distress, well-hydrated, well nourished. Skin: Skin color, texture, turgor normal, no suspicious rashes or lesions. Head: Normocephalic, no masses, lesions, tenderness or abnormalities. Eyes: Anicteric sclera. Extraocular movements are intact. Lungs: Lungs clear to auscultation. No wheezing, rhonchi, rales. Heart: RRR without murmur, gallop, or rubs. No ectopy. Abdomen: Normal abdominal exam, Abdomen soft, non-tender. Bowel sounds normal. No masses, organomegaly, Negative CVA tenderness. Extremities: No deformities, edema, skin discoloration, clubbing or cyanosis. Good capillary refill. Peripheral Pulses: Normal, Capillary refill <2secs, strong peripheral pulses, Pulses palpable. Neurologic: Gait normal. Reflexes normal and symmetric. Sensation grossly intact. ASSESSMENT/PLAN: 1. Nausea - ICD9: 787.02, ICD10: R11.0 - Unknown cause of nausea, possible start of GI Virus - Recommend eating a bland diet and advance as tolerated. - May use Zofran as needed, medication education and instructions discussed. - Red flag symptoms given to patient, she verbalizes understanding when to seek care. - Keep appointment with general surgery. - ONDANSETRON 4 MG DISINTEGRATING TABLET Follow-up as needed or sooner if symptoms get worse do not improve. Discussed treatment plan and patient voices understanding. Patient's questions answered appropriately. Medications and potential side effects were discussed and patient voices understanding. Cher Crabtree APRN.CNP This note was partially generated using [employer] voice recognition system. Note was reviewed for accuracy. There may be minor misspellings or grammar miscues with [employer] voice recognition. documented in this encounterGlen[facility]08-09-2022 Instructions* Patient Instructions* Ivana Kaufman APRN.CNP - 05/10/2022 7:10 PM EDT Does not appear to be Urinary Tract Infection Keep appointment tomorrow with urology. Aspercream Stretches Tylenol (generic acetaminophen) 500 mg-2 tabs every 8 hrs. as needed for fever and aches Follow up with Dr. De Luna if no relief. -Follow up with PCP or return to clinic if symptoms not improving in 3 days or if you develop any new (or worsening) symptoms such as fever, chills or back pain go to ER. documented in this encounterGlen[facility]08-09-2022 History of Present illness Narrative* Ivana Kaufman APRN.CNP - 05/10/2022 7:05 PM EDT Subjective The history is provided by the patient. No airport shuttle driver was used. HPI Terri Villar is a 67 year old female who presents today for CC of lower back pain, since thisam. She has a history of osteoarthritis in back and thinks it is flaring. She has not used any medications or treatment. Wants checked for uti, has appointment tomorrow with urology for a scope due to hematuria. BP 122/70 Pulse 112 Temp 36.4 C (97.6 F) Resp 16 Wt 49.9 kg (110 lb) SpO2 99% BMI 18.88kg/m Social History Tobacco Use Smoking status: Former Smokeless tobacco: Never Vaping Use Vaping Use: Never used Substance Use Topics Alcohol use: No Drug use: No PAST MEDICAL HISTORY Diagnosis Date Chronic kidney disease, stage III (moderate) (HCC) DDD (degenerative disc disease), cervical Dr Tristaic History of COVID-19 07/12/202106/2021 MTHFR mutation Osteoarthritis I have confirmed and edited as necessary, the [facility] ROS Objective Physical Exam Component Latest Ref Rng & Units 05/10/2022 GLUCOSE UA (POCT) Negative mg/dL Negative BILIRUBIN UA (POCT) Negative Negative KETONE UA (POCT) Negative mg/dL Negative SPECIFIC GRAVITY UA (POCT) 1.005 - 1.030 1.010 HEMOGLOBIN/BLOOD UA (POCT) Negative Trace-intact (A) PH UA (POCT) 4.5 - 8.0 7.0 PROTEIN UA (POCT) Negative mg/dL Negative UROBILINOGEN UA (POCT) Normal E.U./dL 0.2 NITRITE UA (POCT) Negative Negative LEUKOCYTES UA (POCT) Negative Negative COLOR UA (POCT) Yellow CLARITY UA (POCT) Clear ASSESSMENT/PLAN: 1. Acute low back pain without sciatica, unspecified back pain laterality - ICD9: 724.2, ICD10: M54.50 (primary diagnosis) Tylenol, topical aspercream as needed for comfort Streches. Follow up with Dr. De Luna as needed. - UA DIP, URINE (POC) 2. Microscopic hematuria - ICD9: 599.72, ICD10: R31.29 Keep follow up with urology Diagnosis and treatment plan were discussed and questions were answered to the patient's satisfaction. Pt acknowledged understanding of concepts and follow up plan. Specific signs and symptoms that would indicate the need for higher level of care were discussed indetail warranting prompt ER evaluation. Ivana Kaufman APRN.WILFREDO documented in this encounterGlen[facility] Hospital08-02-2022 Miscellaneous Notes* Telephone Encounter - Kate Parmar - 05/03/2022 11:05 AM EDT Order/Consult re-faxed to [phone] with confirmation. Kate Parmar documented in this encounterGlenbeigh Hospital07-26-2022 Miscellaneous Notes* Telephone Encounter - Brianna Varghese Ma - 04/26/2022 1:27 PM EDT Pt notified via [employer] that referral has been placed for Dr. Betito Manriquez. Notified to update office if they need referral paperwork and any other additional paperwork sent to there office. Pt notified to call and schedule with them. Brianna Varghese Ma * Telephone Encounter - Bridget De Luna MD - 04/26/2022 12:48 PM EDT Set up referral. See note documented in this encounterGlenbeigh Hospital07-21-2022 History of Present illness Narrative* Jonah Cooley APRN.WILFREDO - 04/21/2022 10:54 AM EDT Images from the original note were not included. Subjective HPI Nontoxic-appearing female presents to urgent care chief complaint back pain slight burning with urination. Patient states she developed back pain yesterday evening when she was in her kitchen. Statesshe does have osteoarthritis and she does get back pain this feels similar. Denies any recent trauma. Did fall earlier this year. CT was negative. Additionally patient states she does have transient pain with urination. No pain currently. No OTC medications. Denies any fever body aches chills coughnausea vomiting abdominal pain chest pain shortness of breath incontinence saddle anesthesia. Past medical history prescription medication use allergies reviewed. .Patient presents with: Pain, Back: pain rated 7, onset AM, reported bur debi with urination PAST MEDICAL HISTORY Diagnosis Date Chronic kidney disease, stage III (moderate) (HCC) DDD (degenerative disc disease), cervical Dr Navjot History of COVID-19 07/12/202106/2021 MTHFR mutation Osteoarthritis PAST SURGICAL HISTORY Procedure Laterality Date DELIVERY ONLY 10/02/1984 , low transverse COLONOSCOPY 05/08/2014 ALLERGIES Amoxicillin, Asa [Salicylates], Codeine, Cortizone-10 [Hydrocortisone], Cymbalta [Duloxetine], Dolibid [Other], Duricef [Cefadroxil], Dye, Entex La [Phenylephrine-Guaifenesin], Erythromycin, Flu Vac 2014 (65 Up)- Mf59c(Pf), Keflex [Cephalexin], Levaquin [Levofloxacin], Macrobid [Nitrofurant oin Monohyd/M-Cryst], Mobic [Meloxicam], Morphine, Penicillins, Prednisolone, Prilosec [Omeprazole], Septra [Sulfamethoxazole-Trimethoprim], Sulfa (Sulfonamide Antibiotics), and Tetracycline MEDICATIONS famotidine (PEPCID) 20 mg tablet Take 1 tablet by mouth twice daily. lisinopril (ZESTRIL, PRINIVIL) 40 mg tablet Take 1 tablet by mouth once daily. atorvastatin (LIPITOR) 10 mg tablet Take 1 tablet by mouth daily at bedtime. For cholesterol. acetaminophen (TYLENOL ARTHRITIS ORAL) Take by mouth. methylPREDNISolone (MEDROL, APRIL,) 4 mg Dose-Pack Follow dosing instructions, take with food. FAMILY HISTORY Problem Relation Age of Onset Breast Cancer Mother 74 Heart Brother Diabetes Paternal Grandmother Social History Tobacco Use Smoking status: Former Smoker Smokeless tobacco: Never Used Vaping Use Vaping Use: Never used Substance Use Topics Alcohol use: No Drug use: No BP 118/76 Pulse 90 Temp 36.6 C (97.8 F) Resp 16 Wt 51.4 kg (113 lb 6.4 oz) SpO2 98% BMI19.47 kg/m Review of Systems Constitutional: Negative for chills, fever and malaise/fatigue. HENT: Negative for congestion, ear discharge, ear pain, sinus pain and sore throat. Eyes: Negative for blurred vision, pain, discharge and redness. Respiratory: Negative for cough, hemoptysis, sputum production, shortness of breath, wheezing and stridor. Cardiovascular: Negative for chest pain. Gastrointestinal: Negative for abdominal pain, diarrhea, nausea and vomiting. Genitourinary: Positive for dysuria. Negative for flank pain, frequency, hematuria and urgency. Musculoskeletal: Positive for back pain. Negative for falls, joint pain, myalgias and neck pain. Skin: Negative for itching and rash. Neurological: Negative for dizziness and headaches. Objective Physical Exam Constitutional: General: She is not in acute distress. Appearance: She is not diaphoretic. HENT: Head: Normocephalic. Mouth/Throat: Mouth: Mucous membranes are moist. Pharynx: Oropharynx is clear. No oropharyngeal exudate or posterior oropharyngeal erythema. Eyes: Conjunctiva/sclera: Conjunctivae normal. Pupils: Pupils are equal, round, and reactive to light. Cardiovascular: Rate and Rhythm: Normal rate and regular rhythm. Heart sounds: Normal heart sounds. Pulmonary: Effort: Pulmonary effort is normal. No tachypnea, accessory muscle usage or respiratory distress. Breath sounds: Normal breath sounds. No stridor. No wheezing, rhonchi or rales. Abdominal: Palpations: Abdomen is soft. Tenderness: There is no abdominal tenderness. Musculoskeletal: Cervical back: Normal range of motion and neck supple. No rigidity or tenderness. Thoracic back: Normal. Lumbar back: Tenderness present. No swelling, edema, deformity, signs of trauma, lacerations, spasms or bony tenderness. Normal range of motion. Back: Comments: No flank pain with palpation. No spinal tenderness. Able to rock on heels stand on toes. Lymphadenopathy: Cervical: No cervical adenopathy. Skin: General: Skin is warm and dry. Neurological: Mental Status: She is alert and oriented to person, place, and time. ASSESSMENT/PLAN: 1. Burning with urination - ICD9: 788.1, ICD10: R30.0 (primary diagnosis) - UA DIP, URINE (POC) - URINE CULTURE 2. Back pain, unspecified back location, unspecified back pain laterality, unspecified chronicity -ICD9: 724.5, ICD10: M54.9 Urine negative. Urine culture pending treat accordingly to test results. Patient diagnosed with back pain. No spinal tenderness. No trauma. No saddle anesthesia or incontinence. We will treat as muscle skeletal discomfort. Lidocaine patches prescribed. Red flags for prompt reevaluation discussed. Patient was educated on supportive therapies. Patient will follow up with primary care provider as nee ded. Patient was instructed to immediately proceed to emergency room for any new, worsening, or symptoms lasting longer than anticipated. The patient's clinical presentation is otherwise unremarkableat this time. Based on exam and clinical finding, the patient is stable for discharge. Plan of carewas discussed with patient. Patient verbalizes understanding and agrees to plan of care. This note was generated using [employer] software. It may contain errors in wording, punctuation, or spelling. Jonah Cooley APRN.WILFREDO documented in this encounterGlen[facility] Hospital07-19-2022 Instructions* Patient Instructions* Herlinda Jett APRN.CNP - 04/19/2022 11:40 AM EDT 1. Start the medrol dose pack. 2. Moist heat/ice to the neck/arm. 3. Gentle stretching of the arm/neck. 4. Let us know if no better/worsening. documented in this encounterGlenbeigh Hospital07-19-2022 History of Present illness Narrative* Herlinda Jett APRN.CNP - 04/19/2022 11:33 AM EDT This is a 67 year old female who presents today with: Patient presents with: Musculoskeletal Problem: RIGHT arm pain x today HISTORY OF PRESENT ILLNESS: Terri Villar is a 67 year old female. Patient presents with: Musculoskeletal Problem: RIGHT arm pain x today Pt presents today with complaint of right arm pain. Refers it started this morning. State that it hurts from the right upper arm down to her elbow. Refers that her right neck/right trap has also been sore. She did take tylenol for the symptoms, which hasn't helped yet. May have slept wrong. Refers that she also has arthritis. PAST MEDICAL HISTORY: PAST MEDICAL HISTORY Diagnosis Date Chronic kidney disease, stage III (moderate) (HCC) DDD (degenerative disc disease), cervical Dr Navjot History of COVID-19 07/12/202106/2021 MTHFR mutation Osteoarthritis PAST SURGICAL HISTORY Procedure Laterality Date DELIVERY ONLY 10/02/1984 , low transverse COLONOSCOPY 05/08/2014 ALLERGIES Amoxicillin, Asa [Salicylates], Codeine, Cortizone-10 [Hydrocortisone], Cymbalta [Duloxetine], Dolibid [Other], Duricef [Cefadroxil], Dye, Entex La [Phenylephrine-Guaifenesin], Erythromycin, Flu Vac 2015 (65 Up)- Mf59c(Pf), Keflex [Cephalexin], Levaquin [Levofloxacin], Macrobid [Nitrofurant oin Monohyd/M-Cryst], Mobic [Meloxicam], Morphine, Penicillins, Prednisolone, Prilosec [Omeprazole], Septra [Sulfamethoxazole-Trimethoprim], Sulfa (Sulfonamide Antibiotics), and Tetracycline MEDICATIONS Current Outpatient Medications Medication Sig famotidine (PEPCID) 20 mg tablet Take 1 tablet by mouth twice daily. lisinopril (ZESTRIL, PRINIVIL) 40 mg tablet Take 1 tablet by mouth once daily. atorvastatin (LIPITOR) 10 mg tablet Take 1 tablet by mouth daily at bedtime. For cholesterol. acetaminophen (TYLENOL ARTHRITIS ORAL) Take by mouth. Current Facility-Administered Medications Medication Dose Route Frequency perflutren lipid microspheres 1.3 mL in NaCl (PF) 0.9% 10 mL injection (DEFINITY) INTRAVENOUS DIRECTED PRN sodium chloride 0.9 % (flush) 10 mL (BD POSIFLUSH) 10 mL INTRAVENOUS DIRECTED PRN perflutren lipid microspheres 1.3 mL in NaCl (PF) 0.9% 10 mL injection (DEFINITY) INTRAVENOUS DIRECTED PRN sodium chloride 0.9 % (flush) 10 mL (BD POSIFLUSH) 10 mL INTRAVENOUS DIRECTED PRN FAMILY HISTORY Problem Relation Age of Onset Breast Cancer Mother 74 Heart Brother Diabetes Paternal Grandmother Social History Tobacco Use Smoking status: Former Smoker Smokeless tobacco: Never Used Vaping Use Vaping Use: Never used Substance Use Topics Alcohol use: No Drug use: No EXAM: BP 122/84 Pulse 75 Resp 16 Wt 51.5 kg (113 lb 9.6 oz) SpO2 99% BMI 19.50 kg/m PHYSICAL EXAM: General Appearance: Well appearing, alert, in no acute distress, well-hydrated, well nourished.. Skin: Skin color, texture, turgor normal, no suspicious rashes or lesions. Head: Normocephalic, no masses, lesions, tenderness or abnormalities. Eyes: Anicteric sclera. Extraocular movements are intact. . Neck: Supple, no adenopathy. Some tenderness in the right posterior neck/trap area. Extremities: = shoulder shrug. = strength/grasp. ROM intact to the arm/shoulder. Neurologic: Gait normal. Sensation grossly intact.. ASSESSMENT/PLAN: 1. Pain of right upper extremity - ICD9: 729.5, ICD10: M79.601 (primary diagnosis) Suspect radiating from the neck/trap area. Will go ahead and start medrol dose pack. Discussed ice/moist heat. Gentle stretching. - METHYLPREDNISOLONE 4 MG TABLETS IN A DOSE PACK 2. Neck pain - ICD9: 723.1, ICD10: M54.2 As above. - METHYLPREDNISOLONE 4 MG TABLETS IN A DOSE PACK Discussed treatment plan and patient voices understanding. Patient's questions answered appropriately. Medications and potential side effects were discussed and patient voices understanding. Return to the office as scheduled or as needed for worsening/no improvement. Herlinda Jett APRN.WASH WORKER documented in this encounterGlenbeigh Hospital07-07-2022 History of Present illness Narrative* Bridget De Luna MD - 04/07/2022 11:31 AM EDT Patient presents with: Fall: Monday-started with rib pain today bruise on hip not painful HPI: Patient presents today for office visit for acute visit. Had mechanical fall on Monday. Did not hit her head or loc. Has a bruise on right hip but no pain. Has mild pain on her right lateral rib. No shortness of breath. No cough. No abd pain. Using tylenol which helps. Just had a ct scan of her chest yesterday. No change in lung nodules. Still shows pericardial effusion we have seen previously. Had an echo done on 03/21. Work up negative. She is asymptomatic. No fractures seen. MEDICATIONS: Current Outpatient Medications Medication Sig famotidine (PEPCID) 20 mg tablet Take 1 tablet by mouth twice daily. lisinopril (ZESTRIL, PRINIVIL) 40 mg tablet Take 1 tablet by mouth once daily. atorvastatin (LIPITOR) 10 mg tablet Take 1 tablet by mouth daily at bedtime. For cholesterol. acetaminophen (TYLENOL ARTHRITIS ORAL) Take by mouth. Current Facility-Administered Medications Medication Dose Route Frequency perflutren lipid microspheres 1.3 mL in NaCl (PF) 0.9% 10 mL injection (DEFINITY) INTRAVENOUS DIRECTED PRN sodium chloride 0.9 % (flush) 10 mL (BD POSIFLUSH) 10 mL INTRAVENOUS DIRECTED PRN perflutren lipid microspheres 1.3 mL in NaCl (PF) 0.9% 10 mL injection (DEFINITY) INTRAVENOUS DIRECTED PRN sodium chloride 0.9 % (flush) 10 mL (BD POSIFLUSH) 10 mL INTRAVENOUS DIRECTED PRN ALLERGIES: ALLERGIES Allergen Reactions Amoxicillin Itching Asa [Salicylates] Itching Codeine Itching Cortizone-10 [[place]* Itching Cymbalta [Duloxetin* Intolerance One pill: bruning all over Dolibid [Other] Itching Duricef [Cefadroxil] Itching Dye Shortness of Breath Ct dye. Including rash Entex La [Phenyleph* Itching Erythromycin Itching Flu Vac 2014 (65 Up* Shortness of Breath Keflex [Cephalexin] Itching Levaquin [Levofloxa* Other: See Comments itching Macrobid [Nitrofura* Other: See Comments Fast heart rate Mobic [Meloxicam] Itching Morphine Itching Penicillins Hives Prednisolone Other: See Comments Elevated blood pressure. Prilosec [Omeprazol* Itching Septra [Sulfamethox* Hives Sulfa (Sulfonamide * Hives Tetracycline Hives Can take doxycycline PAST MEDICAL HISTORY Diagnosis Date Chronic kidney disease, stage III (moderate) (HCC) DDD (degenerative disc disease), cervical Dr Navjot History of COVID-19 07/12/202106/2021 MTHFR mutation Osteoarthritis PAST SURGICAL HISTORY Procedure Laterality Date DELIVERY ONLY 10/02/1984 , low transverse COLONOSCOPY 05/08/2014 FAMILY HISTORY Problem Relation Age of Onset Breast Cancer Mother 74 Heart Brother Diabetes Paternal Grandmother Social History Tobacco Use Smoking status: Former Smoker Smokeless tobacco: Never Used Vaping Use Vaping Use: Never used Substance Use Topics Alcohol use: No Drug use: No Reviewed current medications, allergies, past medical history, surgical history, family history andsocial history today. REVIEW OF SYSTEMS All other reviewed and negative other than HPI. VITALS: BP 122/82 Pulse 72 Wt 51.3 kg (113 lb) BMI 19.40 kg/m Last 4 Encounter Wt Readings: Date: Wt: 03/14/2022 52.2 kg (115 lb) 03/11/2022 52.4 kg (115 lb 9.6 oz) 03/11/2022 52.6 kg (116 lb) 03/03/2022 52.2 kg (115 lb) PHYSICAL EXAMINATION: General appearance: Well appearing, alert, in no acute distress, well-hydrated, well nourished. Skin: Skin color, texture, turgor normal, no suspicious rashes or lesions Chest wall: tender over right chest wall. No instability. Lungs: Lungs clear to auscultation. No wheezing, rhonchi, rales Heart: RRR without murmur, gallop, or rubs. No ectopy Abdomen: Normal abdominal exam, Abdomen soft, non-tender. Bowel sounds normal. No masses, organomegaly Extremities: No deformities, edema, skin discoloration, clubbing or cyanosis. Good capillary refill. ASSESSMENT/PLAN: 1. Rib pain - ICD9: 786.50, ICD10: R07.81 (primary diagnosis) {- ice and tylenol prn. Call if symptoms worsen at all or if not better in one to two weeks 2. Pericardial effusion - ICD9: 423.9, ICD10: I31.3 - get follow up echo in June as scheduled. Red flags for re-assessment reviewed with patient in detail. Bridget De Luna documented in this encounterGlenbeigh Hospital07-06-2022 History of Present illness Narrative* Sarai Valencia, RT(R) - 04/06/2022 3:40 PM EDT Radiology Service Progress Note PATIENT NAME: Terri Villar DATE OF SERVICE: April 06, 2022 TIME: 4:00 PM PATIENT IDENTITY VERIFICATION COMPLETED USING TWO (2) IDENTIFIERS: Name and Date of confirmedby patient verbally. FALL SCREENING: Has the patient had 2 falls in the last year or 1 fall with injury or currently using an Ambulatory Assistive Device (Walker, Cane, Wheelchair, Crutches, etc.)? No PATIENT GENDER DATA: Female. status: : No status: NO. PATIENT RELEVANT IMPLANT DATA REVIEWED: Not Applicable RADIOLOGY DEPARTMENT: CT; Exam(s) Completed: Chest PERIPHERAL IV DATA: Not applicable SIGNED BY: RT Anna(R) April 06, 2022 4:00 PM documented in this encounterGlenbeigh Hospital07-01-2022 Instructions* Patient Instructions* Herlinda Jett APRN.CNP - 04/01/2022 11:49 AM EDT 1. Follow-up with Dr. Cool, as planned. 2. Stay well hydrated. DIETARY GUIDELINES FOR INTERSTITIAL CYSTITIS FOOD CATEGORY PERMITTED FOODS FOODS TO AVOID OR USE CAUTIOUSLY Fruits Blueberries, melons other than cantaloupe and pears All other fruits and juices made from them Vegetables Potatoes, homegrown tomatoes, and vegetables other than those listed on the right Vasu beans, contreras beans, onions, rhubarb, tofu, and store-bought tomatoes Milk/Dairy White chocolate, cottage cheese, [place] cheese, milk Aged cheese, sour cream, eggs, yogurt, chocolate Carbohydrates/Grains Pasta, rice, and breads other than those listed on the right [place] and sourdoughbreads Meats/Fish Poultry, fish and meats other than those listed on the right Aged, canned and cured, processed and smoked meats and fish, anchovies, caviar, chicken livers, corned beef and meats that contain nitrates or nitrites Nuts Almonds, cashews and pine nuts Most other nuts Beverages Bottled or spring water, decaffeinated, acid-free coffee and tea, some herbal teas Alcoholic beverages, beer and wine, carbonated drinks, coffee, tea and cranberry juice Seasonings Garlic and seasonings other than below Mayonnaise, miso, spicy foods (especially Swedish, Micronesian, Cymraes and Turkish foods.) *Adapted with permission from the [employer] On Course for Better Health documented in this encounterGlenbeigh Hospital07-01-2022 History of Present illness Narrative* Herlinda Jett APRN.WASH WORKER - 04/01/2022 11:29 AM EDT This is a 67 year old female who presents today with: Patient presents with: ER F/U: [facility] ER 03/28 dx: dysuria HISTORY OF PRESENT ILLNESS: Terri Villar is a 67 year old female. Patient presents with: ER F/U: [facility] ER 03/28 dx: dysuria Patient presents today for an emergency room visit. She went to [facility] on 03/28/2022. She complained of suprapubic abdominal cramping, burning, and urine not coming out when she urinates. Pt presents today with complaint of abdominal burning. Refers that she gets pain in the pelvis and discomfort with urination. She was following with urology in [place]. Has an appt to establish with urogyn later this month. Refers that she is schedule for a cystoscope later this month, but hoping that Dr. Cool will be able to complete locally. No hematuria. Sometimes will urinate a lot and sometimes not so much. No leakage of urine. Will drink cranberry and green tea. Has been cutting out the coffee. Refers that last night the discomfort kept her awake. No diarrhea/constipation. No vaginal bleeding. No hematochezia/melena. Per patient, she is previously told that symptoms may be related to menopausal side effects and dryness. She reports that she has been using estrogen cream a couple times a day. Clarified with patient that this is something that should be used just a couple times weekly. PAST MEDICAL HISTORY: PAST MEDICAL HISTORY Diagnosis Date Chronic kidney disease, stage III (moderate) (HCC) DDD (degenerative disc disease), cervical Dr Morfin History of COVID-19 07/12/202106/2021 MTHFR mutation Osteoarthritis PAST SURGICAL HISTORY Procedure Laterality Date DELIVERY ONLY 10/02/1984 , low transverse COLONOSCOPY 05/08/2014 ALLERGIES Amoxicillin, Asa [Salicylates], Codeine, Cortizone-10 [Hydrocortisone], Cymbalta [Duloxetine], Dolibid [Other], Duricef [Cefadroxil], Dye, Entex La [Phenylephrine-Guaifenesin], Erythromycin, Flu Vac 2014 (65 Up)- Mf59c(Pf), Keflex [Cephalexin], Levaquin [Levofloxacin], Macrobid [Nitrofurant oin Monohyd/M-Cryst], Mobic [Meloxicam], Morphine, Penicillins, Prednisolone, Prilosec [Omeprazole], Septra [Sulfamethoxazole-Trimethoprim], Sulfa (Sulfonamide Antibiotics), and Tetracycline MEDICATIONS Current Outpatient Medications Medication Sig famotidine (PEPCID) 20 mg tablet Take 1 tablet by mouth twice daily. promethazine (PHENERGAN) 12.5 mg tablet Take 1 tablet by mouth every 8 hours as needed for nausea/vomiting. famotidine (PEPCID) 20 mg tablet Take 20 mg by mouth twice daily. peg 3350-Electrolytes (GOLYTELY) 236-22.74-6.74 -5.86 gram suspension Refer to printed prep instructions from your provider. loratadine (CLARITIN) 10 mg tablet Take 1 tablet by mouth once daily. lisinopril (ZESTRIL, PRINIVIL) 40 mg tablet Take 1 tablet by mouth once daily. atorvastatin (LIPITOR) 10 mg tablet Take 1 tablet by mouth daily at bedtime. For cholesterol. acetaminophen (TYLENOL ARTHRITIS ORAL) Take by mouth. Current Facility-Administered Medications Medication Dose Route Frequency perflutren lipid microspheres 1.3 mL in NaCl (PF) 0.9% 10 mL injection (DEFINITY) INTRAVENOUS DIRECTED PRN sodium chloride 0.9 % (flush) 10 mL (BD POSIFLUSH) 10 mL INTRAVENOUS DIRECTED PRN perflutren lipid microspheres 1.3 mL in NaCl (PF) 0.9% 10 mL injection (DEFINITY) INTRAVENOUS DIRECTED PRN sodium chloride 0.9 % (flush) 10 mL (BD POSIFLUSH) 10 mL INTRAVENOUS DIRECTED PRN FAMILY HISTORY Problem Relation Age of Onset Breast Cancer Mother 74 Heart Brother Diabetes Paternal Grandmother Social History Tobacco Use Smoking status: Former Smoker Smokeless tobacco: Never Used Vaping Use Vaping Use: Never used Substance Use Topics Alcohol use: No Drug use: No EXAM: BP 98/64 Pulse 74 Resp 18 SpO2 97% PHYSICAL EXAM: General Appearance: Well appearing, alert, in no acute distress, well-hydrated, well nourished.. Skin: Skin color, texture, turgor normal, no suspicious rashes or lesions. Head: Normocephalic, no masses, lesions, tenderness or abnormalities. Lungs: Lungs clear to auscultation. No wheezing, rhonchi, rales.. Heart: RRR without murmur, gallop, or rubs. No ectopy. Abdomen: Normal abdominal exam, Abdomen soft, non-tender. Bowel sounds normal. No masses, organomegaly. No CVA tenderness. Extremities: No deformities, edema, skin discoloration, clubbing or cyanosis. Good capillary refill. . Neurologic: Gait normal. ASSESSMENT/PLAN: 1. Dysuria - ICD9: 788.1, ICD10: R30.0 recurrent - UA positive for hematuria - Send urine for culture - Patient education for prevention given - UA DIP, URINE (POC) - URINE CULTURE We will go ahead and send urine for culture, however has had frequent negative cultures in the past. Question possible interstitial cystitis. Discussed possibly trialing a medicine versus just awaiting her upcoming appointment with uro-Back End Web Developer. She will await her upcoming appoint with uro-PRINTED CIRCUIT LAYOUT TAPER. Discussed foods and drinks that she should avoid to minimize symptoms. Discussed treatment plan and patient voices understanding. Patient's questions answered appropriately. Medications and potential side effects were discussed and patient voices understanding. Return to the office as scheduled or as needed for worsening/no improvement. Herlinda Jett APRN.WILFREDO This note was partially generated using [employer] voice recognition system. Note was reviewed for accuracy. There may be minor misspellings or grammar miscues with [employer] voice recognition. documented in this encounterGlenbeigh Hospital06-21-2022 Miscellaneous Notes* Telephone Encounter - Prachi Beth - 03/22/2022 2:05 PM EDT Patient scheduled 07/01 for upper and lower scope with cheryl in the asc * Telephone Encounter - Lorri Houston - 03/14/2022 3:[address] Luna did you want to place an order for an EGD too. According to the notes it looks like you wanted her to have both done. Can you place and order for the EGD Lorri Houston PSS documented in this encounterGlenbeigh Hospital06-21-2022 Miscellaneous Notes* Telephone Encounter - Cher Waldron - 03/22/2022 11:08 AM EDTSummary: Appointments Scheduled PT for CT, and echo. * Telephone Encounter - Isaac Sanchez LPN - 03/22/2022 10:08 AM EDT TC to pt, notified of provider instructions. Pt verbalized understanding. Schedulers please assist pt with scheduling CT and repeat Echo (echo is to be scheduled for Jun.) Isaac Sanchez LPN * Telephone Encounter - Bridget De Luna MD - 03/22/2022 9:38 AM EDT Let her know cardiology reviewed her echo. They recommend some additional labs. Get ct of the chest to make sure nothing else is going on. Recheck echo in three months. Call if any worsing shortness of breath or chest pain. Is probably ok but we can follow. documented in this encounterGlenbeigh Hospital06-21-2022 History of Present illness Narrative* Veronica Childs MD - 03/22/2022 9:25 AM EDT E-consult from Dr. De Luna. My clinical question: Patient has small pericardial effusion on echo. Was noted at least four months ago at outside institution on ct and persists. She is asymptomatic. Any need for follow up or further work up? Thank you Small effusion, no hemodynamic consequence. Etiology not clear, but good that remains small. Looks like TSH checked, might be reasonable to check inflammatory markers and SHAHEED (although note that no symptoms) A chest CT to ensure no pulmonary pathology may be reasonable (note abd/pelvis CT from 11/16), uncertain if a chest CT had been done elsewhere. Otherwise, a follow-up in 3 months would be reasonable. If any concerns, could be seen in the pericardial center as well. Please let me know if any questions, concerns. documented in this encounterGlenbeigh Hospital06-20-2022 Miscellaneous Notes* Telephone Encounter - Isaac Sanchez LPN - 03/21/2022 4:54 PM EDT See MC message. Awaiting response. Isaac Sanchez LPN * Telephone Encounter - Bridget De Luna MD - 03/21/2022 4:46 PM EDT Echo still shows very small amount of fluid. Is of questionable significance. Any current shortnessof breath or chest discomfort? documented in this encounterGlenbeigh Hospital06-17-2022 Miscellaneous Notes* Telephone Encounter - Isaac Sanchez LPN - 03/18/2022 10:54 AM EDT Last rx written 11/01/21. Rx pending. Isaac Sanchez LPN documented in this encounterGlenbeigh Hospital06-13-2022 History of Present illness Narrative* Bayron Wesley DO - 03/14/2022 9:28 AM EDT CC: Terri Villar is a 67 year old female who presents to the office for multiple symptoms HPI: Patient states that she has had nausea and vomiting and dry heeves that are present the last 2 daysor so. No fevers or chills. Her daughter and her both have had similar symptoms. She also has had recurrent UTI so she wasn't sure if this was the cause, no new urinary symptoms. She states that she has still been able to drink water. Has been trying to take Zofran medication but states that it causes her headaches, hasn't tried phenergan in the past. Denies any diarrhea or changes in stools. No headaches or sore throat or URI symptoms. PAST MEDICAL HISTORY Diagnosis Date Chronic kidney disease, stage III (moderate) (HCC) DDD (degenerative disc disease), cervical Dr Navjot History of COVID-19 07/12/202106/2021 MTHFR mutation Osteoarthritis PAST SURGICAL HISTORY Procedure Laterality Date DELIVERY ONLY 10/02/1984 , low transverse COLONOSCOPY 05/08/2014 Current Outpatient Medications Medication Sig famotidine (PEPCID) 20 mg tablet Take 20 mg by mouth twice daily. loratadine (CLARITIN) 10 mg tablet Take 1 tablet by mouth once daily. lisinopril (ZESTRIL, PRINIVIL) 40 mg tablet Take 1 tablet by mouth once daily. atorvastatin (LIPITOR) 10 mg tablet Take 1 tablet by mouth daily at bedtime. For cholesterol. acetaminophen (TYLENOL ARTHRITIS ORAL) Take by mouth. promethazine (PHENERGAN) 12.5 mg tablet Take 1 tablet by mouth every 8 hours as needed for nausea/vomiting. peg 3350-Electrolytes (GOLYTELY) 236-22.74-6.74 -5.86 gram suspension Refer to printed prep instructions from your provider. Current Facility-Administered Medications Medication Dose Route Frequency perflutren lipid microspheres 1.3 mL in NaCl (PF) 0.9% 10 mL injection (DEFINITY) INTRAVENOUS DIRECTED PRN sodium chloride 0.9 % (flush) 10 mL (BD POSIFLUSH) 10 mL INTRAVENOUS DIRECTED PRN ALLERGIES Allergen Reactions Amoxicillin Itching Asa [Salicylates] Itching Codeine Itching Cortizone-10 [[place]* Itching Cymbalta [Duloxetin* Intolerance One pill: bruning all over Dolibid [Other] Itching Duricef [Cefadroxil] Itching Dye Shortness of Breath Ct dye. Including rash Entex La [Phenyleph* Itching Erythromycin Itching Flu Vac 2014 (65 Up* Shortness of Breath Keflex [Cephalexin] Itching Levaquin [Levofloxa* Other: See Comments itching Macrobid [Nitrofura* Other: See Comments Fast heart rate Mobic [Meloxicam] Itching Morphine Itching Penicillins Hives Prednisolone Other: See Comments Elevated blood pressure. Prilosec [Omeprazol* Itching Septra [Sulfamethox* Hives Sulfa (Sulfonamide * Hives Tetracycline Hives Can take doxycycline Social History Tobacco Use Smoking status: Former Smoker Smokeless tobacco: Never Used Vaping Use Vaping Use: Never used Substance Use Topics Alcohol use: No Drug use: No ROS: See HPI PE: BP 110/78 Pulse 76 Temp (Src) 97 (Right Tympanic) Resp 20 Wt 115 lb (52.2kg) Gen: A&OX3, NAD, non-toxic appearing HEENT: PERRLA, EOMs intact b/l, nares without drainage, pharynx without erythema, exudate, lesions,or drainage. Uvula midline. Neck: No LAD, no thyromegaly, no meningismus. CV: RRR, no murmur Lungs: CTA b/l, no wheezing Skin: No rashes, lesions, or wounds on exposed skin. Abd: soft, mild generalized TTP, normal to slightly increased bowel sounds. No edema, normal pulses ASSESSMENT/PLAN: 1. Nausea and vomiting, unspecified vomiting type - ICD9: 787.01, ICD10: R11.2 (primary diagnosis) - likely related to acute viral gastritis. Unsure if will develop any diarrheal symptoms, no feversor chills. SE with Zofran, okay to trial phenergan instead. She is aware of infectious risk - PROMETHAZINE 12.5 MG TABLET - COMP METABOLIC PANEL - CBC + DIFF - LIPASE BLD - URINALYSIS, WITH MICROSCOPIC - URINE CULTURE 2. Recurrent UTI (urinary tract infection) - ICD9: 599.0, ICD10: N39.0 - likely related to acute viral gastritis. Unsure if will develop any diarrheal symptoms, no feversor chills. SE with Zofran, okay to trial phenergan instead. She is aware of infectious risk - COMP METABOLIC PANEL - CBC + DIFF - LIPASE BLD - URINALYSIS, WITH MICROSCOPIC - URINE CULTURE Bayron Wesley, DO Return if no improvement. Follow up with Bridget De Luna MD. To ER if develops chest pain, shortness of breath Discussed risks, benefits, alternatives, and potential side effects of medications. Patient/Guardian expressed understanding and agreed with the plan. See patient instructions. Bayron Wesley DO [address] [place] [address] documented in this encounterGlen[facility]06-13-2022 Miscellaneous Notes* Telephone Encounter - April Garcia Ma - 03/14/2022 8:28 AM EDT Pt notified of results via [employer]. April Garcia Ma * Telephone Encounter - Cher Crabtree APRN.CNP - 2022 1:16 PM EDT Can you please call the patient and let her know that I reviewed her urine results, culture came back negative for any bacteria. Recommend keeping scheduled appoint with urology next month. Please let me know if she has any questions. Thank you. Cher Crabtree APRN.CNP documented in this encounterGlenbeigh Hospital06-10-2022 History of Present illness Narrative* Rosie Luna MD - 03/11/2022 2:41 PM EDT HISTORY AND PHYSICAL Terri Villar 1955 REFERRING PHYSICIAN: Bridget De Luna MD CHIEF COMPLAINT: Follow Up (ABD PAIN) HPI: The patient is a 67 year old female presents with abdominal pain and nausea/emesis. She has known cholelithiasis. She had been seen by me previously and the plan was to proceed with upper and lower endoscopy and then consider cholecystectomy, but this was deferred until the patient was able to obtain healthy insurance. Patient has secured health insurance which will start on April 01. She states that her abdominal pain has improved with antacids. She still has nausea. The patient notes no colon cancer in immediate family. The patient has not had previous colonoscopy PAST MEDICAL HISTORY Diagnosis Date Chronic kidney disease, stage III (moderate) (HCC) DDD (degenerative disc disease), cervical Dr Morfin History of COVID-19 07/12/202106/2021 MTHFR mutation Osteoarthritis PAST SURGICAL HISTORY Procedure Laterality Date DELIVERY ONLY 10/02/1984 , low transverse COLONOSCOPY 05/08/2014 Current Outpatient Medications Medication Sig famotidine (PEPCID) 20 mg tablet Take 20 mg by mouth twice daily. loratadine (CLARITIN) 10 mg tablet Take 1 tablet by mouth once daily. lisinopril (ZESTRIL, PRINIVIL) 40 mg tablet Take 1 tablet by mouth once daily. atorvastatin (LIPITOR) 10 mg tablet Take 1 tablet by mouth daily at bedtime. For cholesterol. acetaminophen (TYLENOL ARTHRITIS ORAL) Take by mouth. peg 3350-Electrolytes (GOLYTELY) 236-22.74-6.74 -5.86 gram suspension Refer to printed prep instructions from your provider. ALLERGIES: Amoxicillin, Asa [Salicylates], Codeine, Cortizone-10 [Hydrocortisone], Cymbalta [Duloxetine], Dolibid [Other], Duricef [Cefadroxil], Dye, Entex La [Phenylephrine-Guaifenesin], Erythromycin, Flu Vac 2014 (65 Up)- Mf59c(Pf), Keflex [Cephalexin], Levaquin [Levofloxacin], Macrobid [Nitrofuran toin Monohyd/M-Cryst], Mobic [Meloxicam], Morphine, Penicillins, Prednisolone, Prilosec [Omeprazole], Septra [Sulfamethoxazole-Trimethoprim], Sulfa (Sulfonamide Antibiotics), and Tetracycline PERSONAL HISTORY: Social History Tobacco Use Smoking status: Former Smoker Smokeless tobacco: Never Used Vaping Use Vaping Use: Never used Substance Use Topics Alcohol use: No Drug use: No FAMILY HISTORY Problem Relation Age of Onset Breast Cancer Mother 74 Heart Brother Diabetes Paternal Grandmother REVIEW OF SYSTEMS: General: The patient denies fatigue, denies weight loss, denies weight gain, denies feeling hot, and denies feelings of cold. Eyes: The patient denies glaucoma, denies eye injury/surgery, does not wear glasses or contacts. Ear/Nose/Throat: The patient NOTES allergies, denies hayfever, denies ear infections, and denies bloody noses. Cardiovascular: The patient denies chest pain, denies heart disease, NOTES high blood pressure,denies cardiac stent, denies prior heart attack, denies irregular heart beat, NOTES high cholesterol, denies poor circulation, denies heart failure, other cardiac issues, denies claudication, denies cold feet, denies peripheral arterial stent. Respiratory: The patient denies tuberculosis, denies pneumonia, denies frequent cough, denies pulmonary embolism, denies shortness of breath, and denies coughing up blood. Gastrointestinal: The patient denies difficulty swallowing, NOTES acid reflux, denies ulcers, denies vomiting, denies jaundice/hepatitis, NOTES gallbladder problems, denies black or tarry stools, denies hemorrhoids, denies bleeding from rectum, denies diverticulitis, denies constipation, denies diarrhea, denies loss of stool control, and denies hernias. Kidney/Bladder: The patient denies kidney stones, denies urine infections, and denies bloody urine. Skin: The patient denies a history of skin cancer, denies bleeding/changing moles, and denies a history of skin rash. Neurologic: The patient denies a history of epilepsy/convulsions, denies headaches, denies head/spinal injuries, and denies stroke/TIA. Psychiatric: The patient denies psychiatric medications, denies depression, and denies voices, denies substance abuse. Endocrine: The patient denies thyroid disorders, denies diabetes, and denies hormonal problems. Hematologic: The patient denies a history of bruising, denies bleeding, and denies anemia, denies blood clots. Infections: The patient denies a history of measles and mumps, denies rheumatic fever, and denies sexually transmitted diseases. Musculoskeletal: The patient denies back pain/injury, NOTES back problems, denies sciatica, denies knee/foot trouble, NOTES arthritis, or denies gout. PHYSICAL EXAMINATION: General: The patient is 67 year old female, well nourished, well hydrated in no acute distress. Thepatient is oriented to time, place, and person. VITALS: Blood pressure 124/78, pulse 94, temperature 36.7 C (98.1 F), height 162.6 cm (5' 4), weight 52.4 kg (115 lb 9.6 oz), SpO2 97 %. Body mass index is 19.84 kg/m . Head: Normal cephalic, atraumatic Eyes: pupils are equally round, sclera are clear/anicteric Neck is supple with no tracheal deviation Respiratory: Normal respiratory excursion and pattern. Abdominal exam: benign Extremities: no clubbing, cyanosis or edema. Neuro: non focal Psych: normal mood Assessment IMPRESSION: abdominal pain, nausea/emesis, cholelithiasis, screening for colon cancer PLAN: I have discussed the above with the patient. I have offered colonoscopy and EGD, possible biopsies I have explained the procedure to the patient. I have counseled the patient as to the risks of the procedure, including but not limited to: infection, bleeding, injury to any intrabdominal organs such as liver/spleen, perforation of the GI tract,inability to complete the procedure, complications of anesthesia, etc. the patient understands. The patient was offered a surgery/procedure at a [facility]. The provider and patient have discussed in detail the risk of exposure to and/or potential harm posed by the COVID-19 viruswith having a surgery/procedure at this time versus the risk of delaying the surgery/procedure. It is not possible to know either the risk of delaying the surgery or procedure or chance of getting aninfection with perfect accuracy, but a joint decision was made between the patient and the providerto proceed at this time with the scheduled surgery/procedure. I have explained to the patient the difference between IV conscious sedation and MAC anesthesia - and I have offered either, according to the patient's wishes. I have explained that with IV conscioussedation there is no anesthesia provider available and therefore there is a limitation of the amount of IV medications that can be given and that the patient may wake up in the middle of the procedure and/or experience pain/discomfort during the procedure. Further discussion was done and the patient was given the opportunity to ask questions and all questions were answered. The patient chooses IVconscious sedation Patient was counseled that if there are changes in his/her medical condition, to let the office know if surgery should proceed. If there are changes in patient's medical condition from time of this encounter to the day of the procedure that preclude anesthesia, patient may have procedure cancelled for patient's safety. The patient wishes to proceed. I have answered all questions to the patient s satisfaction and the patient has no further questions. Diagnoses: (Z12.11) Screening for colon cancer (primary encounter diagnosis) (K21.9) Gastroesophageal reflux disease, unspecified whether esophagitis present (K80.20) Calculus of gallbladder without cholecystitis without obstruction I have confirmed and edited as necessary, the PFSH and ROS obtained by others. I spent a total of 21 minutes on the date of the service which included preparing to see the patient with review of any pertinent laboratory studies/radiological imaging/medical records, [id number] care, obtaining oral medical history from the patient in this encounter, counseling and educating the patient/family/caregiver, and ordering and/or scheduling of medications/tests/procedures,and completing appropriate medical documentation. Return to Clinic: The patient is scheduled for upper and lower endoscopy at [facility] on April 01. Rosie Luna MD documented in this encounterGlen[facility]06-10-2022 Instructions* Patient Instructions* Rosie Luna MD - 03/11/2022 2:26 PM EDT Images from the original note were not included. Bowel Preparation Instructions for: Golytely, Nulytely, Trilyte or Colyte (polyethylene glycol 3350and electrolytes) IF YOU DO NOT FOLLOW THESE DIRECTIONS, YOUR COLONOSCOPY WILL BE CANCELLED. [place] Instructions: Your bowel must be empty so that your doctor can clearly view your colon. Follow all of the instructions in this handout EXACTLY as they are written. Do NOT eat any solid food the ENTIRE day before your colonoscopy. Drink only clear liquids. Buy your bowel preparation at least 5 days before your colonoscopy. TRANSPORTATION on the Day of Your Exam A responsible person MUST be present with you at Check In prior to your colonoscopy and REMAIN in the endoscopy area until you are discharged. You are NOT ALLOWED to drive, take a taxi or bus, or leave the Endoscopy Center ALONE. If you do not have a responsible otr flatbed company truck driver (family member or friend) with you to take you home, your exam cannot be done with sedation and will be cancelled. Please bring a list of all of your current medications, including any Over-the Counter medications with you. Medications If you take insulin, diabetic medications or blood thinners such as Coumadin (warfarin), Plavix (clopidogrel), Ticlid (ticlopidine hydrochloride), Agrylin (anagrelide), Xarelto (Rivaroxaban), Pradaxa(Dabigatran), Eliquis (Apixaban), and Effient (Prasugrel). You MUST call the doctors who orders those medicines for instructions on altering the dosage before your colonoscopy. All other medications should be taken the day of the exam with a sip of water including ASPIRIN. Five (5) Days Before Your Colonoscopy Do NOT take medicines that stop diarrhea - such as Imodium, Kaopectate, or Pepto Bismol. Do NOT take fiber supplements - such as Metamucil, Citrucel, or Perdiem. Do NOT take products that contain iron - such as multi-vitamins (the label lists what is in the products). Do NOT take Vitamin E. Buy the prescription bowel preparation solution at your local pharmacy or drugstore pharmacy. 09/2019 Bowel Preparation Instructions for: Golytely, Nulytely, Trilyte or Colyte (polyethylene glycol 3350and electrolytes) Three (3) Days Before Your Colonoscopy Do NOT eat high-fiber foods - such as popcorn, beans, seeds (flax, sunflower, quinoa), multigrain bread, nuts, salad/vegetables, or fresh and dried fruit. One (1) Day Before Your Colonoscopy Only drink clear liquids the ENTIRE DAY before your colonoscopy. Do NOT eat any solid foods. Drink at least 8 ounces of clear liquids every hour after waking up. The clear liquids you can drink include: Clear Liquid (NO RED LIQUIDS) DO NOT DRINK Gatorade, Pedialyte or Powerade Clear broth or bouillon Coffee or tea (no milk or non-dairy creamer) Carbonated and non-carbonated soft drinks Mark-Aid or other fruit flavored drinks Strained fruit juices (no pulp) Jell-O, popsicles, hard candy Water Alcohol Milk or non-dairy creamers Noodles or vegetables in soup Juice with pulp Liquid you cannot see through The bowel preparation solution will be consumed in two parts. Mix the solution the evening before your colonoscopy and refrigerate before drinking. You may add the flavor pack that came with the bowel preparation. Do NOT add ice, sugar or any other flavorings to the solution. Part 1 At 6:00 PM - Evening before your colonoscopy Drink an 8-oz glass of bowel preparation every 10 minutes for a total of 8 glasses. You may continue to drink clear liquids until midnight. Part 2 On the day of your colonoscopy you may drink clear liquids up to (three) 3 hours before your procedure. 4 1/2 hours before your colonoscopy Drink an 8-oz glass of bowel preparation every 10 minutes for a total of 8 glasses. Fifteen (15) minutes later, drink an 8-oz glass of clear liquids every 15 minutes for a total of 2 glasses. You may continue to drink clear liquids up to (three) 3 hours before your exam. 3 09/2019 documented in this encounterGlen[facility]06-10-2022 Instructions* Patient Instructions* Cher Crabtree APRN.CNP - 03/11/2022 7:18 AM EDT 1.) Continue to take the Pepcid as prescribed, may add on the carafate that you have at home. 2.) Continue with tylenol as needed for pain, may apply heat to the left shoulder. If you have spasms may use flexeril at home as needed. May make you sleepy. 3.) Urine will be sent off for culture. 4.) Keep scheduled appointments with Urology and General Surgery. 5.) Follow up as needed. Schedule follow up with Spine Dr. documented in this encounterGlenbeigh Hospital06-10-2022 History of Present illness Narrative* Cher Crabtree APRN.CNP - 03/11/2022 7:00 AM EDT This is a 66 year old female who presents today with: Patient presents with: Acute Visit: back pain and stomach been hurting HISTORY OF PRESENT ILLNESS: Terri Villar is a 66 year old female. Patient presents with: Acute Visit: back pain and stomach been hurting Patient of Dr. De Luna Here in office for concerns for back and abdominal pain. Upper back pain that started yesterday. Refers that she has arthritis in her back. Pain is an ache and at times will have muscle spasms. Taking tylenol for pain which doesn't help. Cannot take NSAIDS. Seeing Dr. Irving ([facility]) in [place] for back pain, needs to schedule follow up appointment. No loss of bowel/bladder or saddle anesthesia. Lumbar xray in November showed: Findings: AP and lateral views were performed. Mild levoscoliosis centered at the upper lumbar spine. Vertebral bodies and pedicles are intact. Mild narrowing L2-3 disc space with endplate spurring. There is narrowing L5-S1 disc space with grade 1-2 spondylolisthesis. There is likely bilateral L5 spondylolysis. Lower lumbar facet hypertrophic spurring Abdominal Pain: Has a history of ulcers and was treated for UTI and hematuria at the end of January. Will be seeing Urology in April. Has mild dysuria. No fever or chills/flank pain. Will be seeing Dr. Luna in general surgery in April to discuss upper scope. Is currently being treated for ulcer. Taking Pecid 20 mg Twice daily. PAST MEDICAL HISTORY: PAST MEDICAL HISTORY Diagnosis Date Chronic kidney disease, stage III (moderate) (HCC) DDD (degenerative disc disease), cervical Dr Morfin History of COVID-19 07/12/202106/2021 MTHFR mutation Osteoarthritis PAST SURGICAL HISTORY Procedure Laterality Date DELIVERY ONLY 10/02/1984 , low transverse COLONOSCOPY 05/08/2014 ALLERGIES Amoxicillin, Asa [Salicylates], Codeine, Cortizone-10 [Hydrocortisone], Cymbalta [Duloxetine], Dolibid [Other], Duricef [Cefadroxil], Dye, Entex La [Phenylephrine-Guaifenesin], Erythromycin, Flu Vac 2014 (65 Up)- Mf59c(Pf), Keflex [Cephalexin], Levaquin [Levofloxacin], Macrobid [Nitrofurant oin Monohyd/M-Cryst], Mobic [Meloxicam], Morphine, Penicillins, Prednisolone, Prilosec [Omeprazole], Septra [Sulfamethoxazole-Trimethoprim], Sulfa (Sulfonamide Antibiotics), and Tetracycline MEDICATIONS Current Outpatient Medications Medication Sig loratadine (CLARITIN) 10 mg tablet Take 1 tablet by mouth once daily. lisinopril (ZESTRIL, PRINIVIL) 40 mg tablet Take 1 tablet by mouth once daily. atorvastatin (LIPITOR) 10 mg tablet Take 1 tablet by mouth daily at bedtime. For cholesterol. acetaminophen (TYLENOL ARTHRITIS ORAL) Take by mouth. Current Facility-Administered Medications Medication Dose Route Frequency perflutren lipid microspheres 1.3 mL in NaCl (PF) 0.9% 10 mL injection (DEFINITY) INTRAVENOUS DIRECTED PRN sodium chloride 0.9 % (flush) 10 mL (BD POSIFLUSH) 10 mL INTRAVENOUS DIRECTED PRN FAMILY HISTORY Problem Relation Age of Onset Breast Cancer Mother 74 Heart Brother Diabetes Paternal Grandmother Social History Tobacco Use Smoking status: Former Smoker Smokeless tobacco: Never Used Vaping Use Vaping Use: Never used Substance Use Topics Alcohol use: No Drug use: No REVIEW OF SYSTEMS GENERAL: No weight loss, malaise or fevers/chills HEENT: Negative for frequent or significant headaches, No changes in hearing or vision. NECK: Negative for lumps, goiter, pain and significant neck swelling RESPIRATORY: Negative for cough, hemoptysis, wheezing, dyspnea or shortness of breath CARDIOVASCULAR: Negative for chest pain, leg swelling, orthopnea, or palpitations GI: + Abdominal Pain : No history of dysuria, frequency or incontinence MUSCULOSKELETAL: + Back Pain SKIN: Negative for lesions, rash, and itching ENDOCRINE: Negative for cold or heat intolerance, polyuria, polydipsia and goiter NEURO: No history of headaches, syncope, paralysis, seizures or tremors MOOD: Negative for depression, anxiety, or suicidal ideation. EXAM: BP 128/74 Pulse 72 Resp 20 Wt 52.6 kg (116 lb) SpO2 97% BMI 19.91 kg/m PHYSICAL EXAM: General Appearance: Well appearing, alert, in no acute distress, well-hydrated, well nourished. Skin: Skin color, texture, turgor normal, no suspicious rashes or lesions. Head: Normocephalic, no masses, lesions, tenderness or abnormalities. Eyes: Anicteric sclera. Extraocular movements are intact. Back:no pain to palpation of vertebrae, good flexion and extension, good range of motion, no muscletenderness, reflexes are 2+ and symmetric, motor and sensory appear to be normal, negative SLR test, no evidence of scoliosis Lungs: Lungs clear to auscultation. No wheezing, rhonchi, rales. Heart: RRR without murmur, gallop, or rubs. No ectopy. Abdomen: Abdomen soft. Bowel sounds normal. No masses, organomegaly, Negative CVA tenderness. + Epigastric tenderness with palpation. Musculoskeletal: Left medical aspect of scapula tender, bilateral shoulder ROM WNL. No swelling or color change noted. Extremities: No deformities, edema, skin discoloration, clubbing or cyanosis. Good capillary refill. Peripheral Pulses: Normal, Capillary refill <2secs, strong peripheral pulses, Pulses palpable. Neurologic: Gait normal. Reflexes normal and symmetric. Sensation grossly intact. UA: + Trace blood and Leuks. ASSESSMENT/PLAN: 1. Muscle strain of left shoulder, initial encounter - ICD9: 840.9, ICD10: S46.912A (primary diagnosis) - Symptoms consistent with a muscle strain. - May continue with tylenol, use at home flexeril as needed for muscle spasms. 2. Dysuria - ICD9: 788.1, ICD10: R30.0 - Keep up coming appointment with Urology. - Will send urine off for culture. - URINE CULTURE 3. Epigastric pain - ICD9: 789.06, ICD10: R10.13 - Continue to take Pepcid as recommended from General surgery. - May try at home Carafate. - Keep scheduled appointment with General Surgery. Follow-up as needed or sooner if symptoms get worse or do not improve. Discussed treatment plan and patient voices understanding. Patient's questions answered appropriately. Medications and potential side effects were discussed and patient voices understanding. Cher Crabtree APRN.WILFREDO This note was partially generated using [employer] voice recognition system. Note was reviewed for accuracy. There may be minor misspellings or grammar miscues with [employer] voice recognition. documented in this encounterGlenbeigh Hospital06-02-2022 History of Present illness Narrative* Adelaida Pichardo PA-C - 03/03/2022 7:15 AM EDT 03/03/2022 Patient presents with: Sinus Problem SUBJECTIVE: This is a 66 year old that is here today for Above Complaints.. Patient reports sinus pressure for the past couple days. Denies cough or fevers. No sore throat No sick contacts. She is wondering her symptoms are related to allergies. PAST MEDICAL HISTORY Diagnosis Date Chronic kidney disease, stage III (moderate) (HCC) DDD (degenerative disc disease), cervical Dr Morfin History of COVID-19 07/12/202106/2021 MTHFR mutation Osteoarthritis ALLERGIES Amoxicillin, Asa [Salicylates], Codeine, Cortizone-10 [Hydrocortisone], Cymbalta [Duloxetine], Dolibid [Other], Duricef [Cefadroxil], Dye, Entex La [Phenylephrine-Guaifenesin], Erythromycin, Flu Vac 2014 (65 Up)- Mf59c(Pf), Keflex [Cephalexin], Levaquin [Levofloxacin], Macrobid [Nitrofurant oin Monohyd/M-Cryst], Mobic [Meloxicam], Morphine, Penicillins, Prednisolone, Prilosec [Omeprazole], Septra [Sulfamethoxazole-Trimethoprim], Sulfa (Sulfonamide Antibiotics), and Tetracycline MEDICATIONS Current Outpatient Medications Medication Sig lisinopril (ZESTRIL, PRINIVIL) 40 mg tablet Take 1 tablet by mouth once daily. atorvastatin (LIPITOR) 10 mg tablet Take 1 tablet by mouth daily at bedtime. For cholesterol. acetaminophen (TYLENOL ARTHRITIS ORAL) Take by mouth. ciprofloxacin HCl (CIPRO) 500 mg tablet Take 1 tablet by mouth twice daily for 7 days. doxycycline (VIBRA-TABS) 100 mg tablet Take 1 tablet by mouth twice daily for 10 days. Ogeuicfekgwoopg-Jqyxfpwwn-XM (BROMFED DM) 2-30-10 mg/5 mL syrup Take 5 mL by mouth four times dailyas needed. Current Facility-Administered Medications Medication Dose Route Frequency perflutren lipid microspheres 1.3 mL in NaCl (PF) 0.9% 10 mL injection (DEFINITY) INTRAVENOUS DIRECTED PRN sodium chloride 0.9 % (flush) 10 mL (BD POSIFLUSH) 10 mL INTRAVENOUS DIRECTED PRN SOCIAL HISTORY Social History Tobacco Use Smoking status: Former Smoker Smokeless tobacco: Never Used Vaping Use Vaping Use: Never used Substance Use Topics Alcohol use: No Drug use: No REVIEW OF SYSTEMS All other reviewed and negative other than HPI. OBJECTIVE: BP 100/80 (BP Site: Left Arm, BP Position: Sitting, BP Cuff Size: Regular Adult) Pulse 64 Temp 36.8 C (98.2 F) Resp 16 Wt 52.2 kg (115 lb) BMI 19.74 kg/m APPEARANCE Well appearing, alert, in no acute distress, well-hydrated, well nourished. EARS External ears normal, canals clear NOSE/SINUS Nares normal. Septum midline. Mucosa normal. No drainage or sinus tenderness. THROAT normal, no erythema NECK Supple, no adenopathy; thyroid symmetric, normal size, no bruits HEART RRR with normal S1 and S2, no murmurs, no gallops, no JVD appreciated LUNG clear to auscultation ASSESSMENT/PLAN: 1. Sinus congestion - ICD9: 478.19, ICD10: R09.81 Suspect allergies. Will check covid Advised to start loratadine and continue flonase. - 2019 CORONAVIRUS Adelaida Pichardo PA-C documented [facility] History of Present illness Narrative* Bayron Wesley, DO - 02/26/2022 11:33 AM EDT CC: Terri Villar is a 66 year old female who presents to the office for urinary symptoms HPI: She has been having urinary symptoms of urgency and frequency for the last few days. She will be seeing a urologist for further testing with likely cystoscopy in April as scheduled. Not able to be seen sooner. Denies any flank pain or hematuria or fevers or chills. Hasn't taken anything yet for this. PAST MEDICAL HISTORY Diagnosis Date Chronic kidney disease, stage III (moderate) (HCC) DDD (degenerative disc disease), cervical Dr Sonuapic History of COVID-19 07/12/202106/2021 MTHFR mutation Osteoarthritis PAST SURGICAL HISTORY Procedure Laterality Date DELIVERY ONLY 10/02/1984 , low transverse COLONOSCOPY 05/08/2014 Current Outpatient Medications Medication Sig lisinopril (ZESTRIL, PRINIVIL) 40 mg tablet Take 1 tablet by mouth once daily. atorvastatin (LIPITOR) 10 mg tablet Take 1 tablet by mouth daily at bedtime. For cholesterol. acetaminophen (TYLENOL ARTHRITIS ORAL) Take by mouth. doxycycline (VIBRA-TABS) 100 mg tablet Take 1 tablet by mouth twice daily for 10 days. Fcwctnaciiuuroh-Lzujbzeyv-ME (BROMFED DM) 2-30-10 mg/5 mL syrup Take 5 mL by mouth four times dailyas needed. Current Facility-Administered Medications Medication Dose Route Frequency perflutren lipid microspheres 1.3 mL in NaCl (PF) 0.9% 10 mL injection (DEFINITY) INTRAVENOUS DIRECTED PRN sodium chloride 0.9 % (flush) 10 mL (BD POSIFLUSH) 10 mL INTRAVENOUS DIRECTED PRN ALLERGIES Allergen Reactions Amoxicillin Itching Asa [Salicylates] Itching Codeine Itching Cortizone-10 [[place]* Itching Cymbalta [Duloxetin* Intolerance One pill: bruning all over Dolibid [Other] Itching Duricef [Cefadroxil] Itching Dye Shortness of Breath Ct dye. Including rash Entex La [Phenyleph* Itching Erythromycin Itching Flu Vac 2014 (65 Up* Shortness of Breath Keflex [Cephalexin] Itching Levaquin [Levofloxa* Other: See Comments itching Macrobid [Nitrofura* Other: See Comments Fast heart rate Mobic [Meloxicam] Itching Morphine Itching Penicillins Hives Prednisolone Other: See Comments Elevated blood pressure. Prilosec [Omeprazol* Itching Septra [Sulfamethox* Hives Sulfa (Sulfonamide * Hives Tetracycline Hives Can take doxycycline Social History Tobacco Use Smoking status: Former Smoker Smokeless tobacco: Never Used Vaping Use Vaping Use: Never used Substance Use Topics Alcohol use: No Drug use: No ROS: See HPI PE: BP 112/74 Pulse 83 Resp 16 Wt 115 lb (52.2kg) SpO2 98% Gen: A&OX3, NAD, non-toxic appearing HEENT: PERRLA, EOMs intact b/l, nares without drainage, pharynx without erythema, exudate, lesions,or drainage. Uvula midline. Neck: No LAD, no thyromegaly, no meningismus. CV: RRR, no murmur Lungs: CTA b/l, no wheezing Skin: No rashes, lesions, or wounds on exposed skin. Mild suprapubic discomfort, otherwise normal abdominal exam No CVA TTP ASSESSMENT/PLAN: 1. Right lower quadrant abdominal pain - ICD9: 789.03, ICD10: R10.31 (primary diagnosis) UA with blood, will be following up with urologist as scheduled. Jen to perform urine culture and start on Ciprofloxacin - UA DIP, URINE (POC) - URINE CULTURE - CIPROFLOXACIN 500 MG TABLET 2. Recurrent UTI (urinary tract infection) - ICD9: 599.0, ICD10: N39.0 recurrent UA with blood, will be following up with urologist as scheduled. Okay to perform urine culture and start on Ciprofloxacin - UA DIP, URINE (POC) - URINE CULTURE - CIPROFLOXACIN 500 MG TABLET Bayron Wesley DO Return if no improvement. Follow up with Bridget De Luna MD. To ER if develops chest pain, shortness of breath Discussed risks, benefits, alternatives, and potential side effects of medications. Patient/Guardian expressed understanding and agreed with the plan. See patient instructions. Bayron Wesley DO [address] [place] [address] documented [facility] Instructions* Patient Instructions* Cher Crabtree APRN.WASH WORKER - 02/24/2022 8:02 AM EDT 1.) Start Doxycycline for sinus infection. 2.) may continue with over the counter cold and cough medications as needed for symptom management. 3.) Stay well hydrated. 4.) Follow up as needed. ACUTE SINUSITIS OVERVIEW Rhinosinusitis, or more commonly sinusitis, is the medical term for inflammation (swelling) of the lining of the sinuses and nose. The sinuses are the hollow areas within the facial bones that are connected to the nasal openings. The sinuses are lined with mucous membranes, similar to the inside ofthe nose. There are two main types of sinusitis: acute and chronic. Acute sinusitis is inflammation that lasts for less than four weeks while chronic sinusitis lasts for more than 12 weeks. Acute sinusitis is common, affecting approximately one million people per year in the [place]. ACUTE SINUSITIS CAUSES The most common cause of acute sinusitis is a viral infection associated with the common cold. Bacterial sinusitis occurs much less commonly, in only 0.5 to 2 percent of cases, usually as a complication of viral sinusitis. Because antibiotics are effective only against bacterial, and not viral, infections, most people donot need antibiotics for acute sinusitis. ACUTE SINUSITIS SYMPTOMS Symptoms of acute sinusitis include: Nasal congestion or blockage Thick, yellow to green discharge from the nose Pain in the teeth Pain or pressure in the face that is worse when bending forwards Other acute sinusitis symptoms can include fever (temperature greater than 100.4 F or 38 C), fatigue, cough, difficulty or inability to smell, ear pressure or fullness, headache, and bad breath. In most cases, these symptoms develop over the course of one day and begin to improve within seven to 10 days. DO I NEED TO BE EXAMINED? It is difficult to know if you have a viral or bacterial sinus infection initially. However, most people with a viral infection improve without treatment within seven to 10 days after symptoms begin.Bacterial sinusitis also sometimes improves without treatment, although it can also worsen and require treatment. If one or more of the following bothersome symptoms last more than seven days, an examination by a healthcare provider is recommended: Thick, yellow to green discharge from the nose Face or tooth pain, especially if it is only on one side Tenderness over the maxillary sinuses (located on the left and right side of the nose, inside the cheekbones) Symptoms that initially improve and then worsen When to seek immediate help If you have one or more of the following symptoms, you should seek medical attention immediately (even if symptoms have been present for less than seven days): High fever (>102.5 F or 39.2 C) Sudden, severe pain in the face or head Double vision or difficulty seeing Confusion or difficulty thinking clearly Swelling or redness around one or both eyes Stiff neck, shortness of breath ACUTE SINUSITIS TREATMENT Initial treatment of a sinus infection aims to relieve symptoms since almost everyone will improve within the first seven to 10 days. Experts recommend avoiding antibiotics during this time unless there is clear evidence of a severe bacterial infection. Initial treatment Pain relief Non-prescription pain medications, such as acetaminophen (eg, Tylenol ) or ibuprofen (eg, Motrin , Advil ) are recommended for pain. Nasal irrigation and saline sprays Rinsing the nose with a salt-water (saline) solution is called nasal irrigation or nasal lavage. Saline is also available in a standard nasal spray, although this is not as effective as using larger amounts of water in an irrigation. Nasal irrigation is particularly useful for treating drainage down the back of the throat, sneezing, nasal dryness, and congestion. The treatment helps by rinsing out allergens and irritants from thenose. Saline rinses also clean the nasal lining and can be used before applying sprays containing medications, to get a better effect from the medication. Nasal lavage with warmed saline can be performed as needed, once per day, or twice daily for increased symptoms. Nasal lavage carries few risks when performed correctly. Saline nasal sprays and irrigation kits can be purchased [id number]. Saline mixes can also be purchased or patients can make their own solution. A variety of devices, including bulb syringes, Neti pots, and bottle sprayers, may be used to perform nasal lavage; instructions for nasal lavage are provided in the table. At least 200 mL (about 3/4cup) of fluid is recommended for each nostril. Nasal decongestants Nasal decongestant sprays, including oxymetazoline (Afrin ) and phenylephrine (Sigifredo-synephrine ) can be used to temporarily treat congestion. However, these sprays should not be used for more than two to three days due to the risk of rebound congestion (when the nose is congestedconstantly unless the medication is used repeatedly). Other treatments Other treatments for congestion, such as oral antihistamines (such as diphenhydramine/Benadryl ) or zinc supplements are not proven to improve symptoms of sinusitis and can have unwanted side effects. Medications to thin secretions (such as guaifenesin) may help to clear mucus. Secondline treatment If symptoms have not improved in seven to ten days, you should arrange for medical evaluation. You may need further treatment. Nasal glucocorticoids Nasal glucocorticoids (steroids delivered by a nasal spray) can help to reduce swelling inside the nose, usually within two to three days. These drugs have few side effects and dramatically relieve symptoms in most people. There are a number of nasal glucocorticoids available by prescription. These drugs are all effective, but differ in how frequently they must be used and how much they cost. You may need to use a nasal decongestant for a few days before starting a nasal glucocorticoid to reduce nasal swelling; this will allow the nasal glucocorticoid to reach more areas of the nasal passages Do I need an antibiotic? If bothersome symptoms of sinusitis persist for 10 or more days, it is possible that you have bacterial sinusitis. The need for antibiotics depends upon the severity of your symptoms. Mild symptoms There are two possible treatment options if you have mild sinusitis symptoms: treat with antibiotics or continue to watch and wait for one week. Watching and waiting is a reasonable option because up to 75 percent of people with bacterial sinusitis improve within one month without antibiotics. During the watch and wait period, treatments to improve symptoms are recommended. If symptoms worsen or do not improve after watching and waiting, treatment with an antibiotic is usually recommended. Treatments to relieve symptoms are recommended while using antibiotics. Moderate or severe symptoms Most healthcare providers will prescribe an antibiotic for moderate to severe symptoms (temperature >38.3 C or 101 F and/or severe pain that interferes with usual activities). Treatments to relieve symptoms are also recommended during antibiotic treatment. One of the least expensive and most effective antibiotics for sinusitis is amoxicillin. An alternate antibiotic will be prescribed if you are allergic to penicillin. Regardless of which antibiotic isprescribed, it is important to follow the dosing instructions carefully and to finish the entire course of treatment. Taking the medication less often than prescribed or stopping the medication earlycan lead to complications, such as a recurrent infection. What if I do not improve with treatment? If you do not improve or worsen after a course of antibiotics, you should be re-examined. In some cases, symptoms of sinusitis improve but then recur. This is usually because the infection was not completely eliminated by the antibiotic. An alternate antibiotic, extended antibiotic treatment, and/or further testing may be recommended, depending upon your individual situation. documented [facility] History of Present illness Narrative* Cher Crabtree APRN.CNP - 02/24/2022 7:40 AM EDT This is a 66 year old female who presents today with: Patient presents with: Acute Visit: nausea, headaches HISTORY OF PRESENT ILLNESS: Terri Villar is a 66 year old female. Patient presents with: Acute Visit: nausea, headaches Patient of Dr. De Luna here in office for general illness complaints. Was seen in the office by PCP team on 02/18/2022 for sinus complaints and diagnosed with URI. Still having ongoing mild sinus congestion and rhinorrhea. Nausea that waxes and wanes. similar symptoms which resolved after 4 days. No fever, chills, abdominal pain, diarrahea, or vomiting. No cough or SOB. PAST MEDICAL HISTORY: PAST MEDICAL HISTORY Diagnosis Date Chronic kidney disease, stage III (moderate) (HCC) DDD (degenerative disc disease), cervical Dr Navjot History of COVID-19 07/12/202106/2021 MTHFR mutation Osteoarthritis PAST SURGICAL HISTORY Procedure Laterality Date DELIVERY ONLY 10/02/1984 , low transverse COLONOSCOPY 05/08/2014 ALLERGIES Amoxicillin, Asa [Salicylates], Codeine, Cortizone-10 [Hydrocortisone], Cymbalta [Duloxetine], Dolibid [Other], Duricef [Cefadroxil], Dye, Entex La [Phenylephrine-Guaifenesin], Erythromycin, Flu Vac 2014 (65 Up)- Mf59c(Pf), Keflex [Cephalexin], Levaquin [Levofloxacin], Macrobid [Nitrofurant oin Monohyd/M-Cryst], Mobic [Meloxicam], Morphine, Penicillins, Prednisolone, Prilosec [Omeprazole], Septra [Sulfamethoxazole-Trimethoprim], Sulfa (Sulfonamide Antibiotics), and Tetracycline MEDICATIONS Current Outpatient Medications Medication Sig Srjndfchbbvufjl-Zhlcavzyo-SN (BROMFED DM) 2-30-10 mg/5 mL syrup Take 5 mL by mouth four times dailyas needed. lisinopril (ZESTRIL, PRINIVIL) 40 mg tablet Take 1 tablet by mouth once daily. atorvastatin (LIPITOR) 10 mg tablet Take 1 tablet by mouth daily at bedtime. For cholesterol. acetaminophen (TYLENOL ARTHRITIS ORAL) Take by mouth. Multivitamin capsule Take 1 capsule by mouth once daily. Current Facility-Administered Medications Medication Dose Route Frequency perflutren lipid microspheres 1.3 mL in NaCl (PF) 0.9% 10 mL injection (DEFINITY) INTRAVENOUS DIRECTED PRN sodium chloride 0.9 % (flush) 10 mL (BD POSIFLUSH) 10 mL INTRAVENOUS DIRECTED PRN FAMILY HISTORY Problem Relation Age of Onset Breast Cancer Mother 74 Heart Brother Diabetes Paternal Grandmother Social History Tobacco Use Smoking status: Former Smoker Smokeless tobacco: Never Used Vaping Use Vaping Use: Never used Substance Use Topics Alcohol use: No Drug use: No REVIEW OF SYSTEMS GENERAL: No weight loss, malaise or fevers/chills HEENT: + Sinus Congestion/ Rhinorrhea NECK: Negative for lumps, goiter, pain and significant neck swelling RESPIRATORY: Negative for cough, hemoptysis, wheezing, dyspnea or shortness of breath CARDIOVASCULAR: Negative for chest pain, leg swelling, orthopnea, or palpitations GI: + Nausea : No history of dysuria, frequency or incontinence MUSCULOSKELETAL: Negative for joint pain or swelling. SKIN: Negative for lesions, rash, and itching ENDOCRINE: Negative for cold or heat intolerance, polyuria, polydipsia and goiter NEURO: No history of headaches, syncope, paralysis, seizures or tremors MOOD: Negative for depression, anxiety, or suicidal ideation. EXAM: BP 116/78 Pulse 80 Resp 20 Wt 52.6 kg (116 lb) SpO2 96% BMI 19.91 kg/m PHYSICAL EXAM: General Appearance: Well appearing, alert, in no acute distress, well-hydrated, well nourished. Skin: Skin color, texture, turgor normal, no suspicious rashes or lesions. Head: Normocephalic, no masses, lesions, tenderness or abnormalities. Eyes: Anicteric sclera. Extraocular movements are intact. Ears: External ears normal, canals clear. TM's pearly hernandez. Nose/Sinuses: Nares normal, septum midline, mucosa normal, no drainage. + Maxillary sinus tenderness. Oropharynx: Lips, mucosa, and tongue normal, teeth and gums normal, oropharynx normal. Neck: Supple, no adenopathy; thyroid symmetric, normal size, no bruits. Lungs: Lungs clear to auscultation. No wheezing, rhonchi, rales. Heart: RRR without murmur, gallop, or rubs. No ectopy. Abdomen: Normal abdominal exam, Abdomen soft, non-tender. Bowel sounds normal. No masses, organomegaly, Negative CVA tenderness. Extremities: No deformities, edema, skin discoloration, clubbing or cyanosis. Good capillary refill. Peripheral Pulses: Normal, Capillary refill <2secs, strong peripheral pulses, Pulses palpable. ASSESSMENT/PLAN: 1. Acute non-recurrent maxillary sinusitis - ICD9: 461.0, ICD10: J01.00 - Will begin treatment with Doxycycline - Supportive care with plenty of fluids, rest, and analgesia prn. - DOXYCYCLINE HYCLATE 100 MG TABLET Follow-up as needed or sooner if symptoms get worse or do not improve. Discussed treatment plan and patient voices understanding. Patient's questions answered appropriately. Medications and potential side effects were discussed and patient voices understanding. Cher Crabtree APRN.CNP This note was partially generated using [employer] voice recognition system. Note was reviewed for accuracy. There may be minor misspellings or grammar miscues with Dragon voice recognition. documented [facility] this [facility] Instructions* Patient Instructions* Herlinda Jett APRN.CNP - 02/18/2022 10:32 AM EDT 1. Start the brom-fed -- 1 teaspoon 4 times daily as needed. 2. Continue the nasal sprays. 3. Stay well hydrated. Home going instructions for Viral Upper Respiratory Infections In General: - Drink lots of fluids - at least one gallon of non-caffeinated liquids per day - Make sure you are eating well - Get plenty of rest - at least 8 hours of sleep per night for adults - ibuprofen 600mg every 8 hours as needed for discomfort - acetaminophen 500mg every 4-6 hours as needed for fever and discomfort. - may alternate ibuprofen and acetaminophen For nasal congestion try: -Vaporizers, Neti Pot, humidifiers, hot showers, and hot fluids help open respiratory and sinus passages. - [place] Nasal [place] may offer relief of nasal and head congestion 2-3 times per day as needed. - Sudafed is a safe and effective decongestant for people who do not have high blood pressure. Do not take Sudafed if you have ever been told that you have high blood pressure or hypertension. General dosing guidelines: Immediate release: 60 mg every 4-6 hours; Extended release: 120 mg every 12 hours or 240 mg every 24 hours; maximum: 240 mg/24 hours. For Sore Throat try: - Salt water gargles every 2-3 hours as needed for discomfort - Chloraceptic spray or throat lozenges (Cepacol) For Cough and chest congestion try one of the following: - Mucinex or Robitussin are expectorants. You may take 200-400 mg every 4 hours to a not to exceed 2,400 mg/day OR Extended release tablet: 600-1200 mg every 12 hours, not to exceed 2,400 mg/day - Delsym is a cough suppressant: Oral: 10-20 mg every 4 hours or 30 mg every 6-8 hours OR Extended release: 60 mg twice daily; maximum: 120 mg/day - If you have high blood pressure or hypertension it is safe to take Coricidin HBP Cough & Cold. If you smoke it is advised that you quit smoking. CONTACT YOUR DOCTOR IF: 1. You have fevers for longer than five days or a fever more than 102 degrees 2. You are still sick after 10 days 3. After several days you are getting worse rather than better 4. You develop nausea, vomiting, diarrhea, or a rash. Go to the ER if you - experience pressure or pain in your chest - experience difficulty swallowing - experience difficulty breathing Follow up in 7-10 days or before if your symptoms get worse. documented in this encounter[facility]05[facility] History of Present illness Narrative* Herlinda Jett APRN.WASH WORKER - 02/18/2022 10:22 AM EDT This is a 66 year old female who presents today with: Patient presents with: Headache HISTORY OF PRESENT ILLNESS: Terri Villar is a 66 year old female. Patient presents with: Headache Pt presents today with complaint of sinus symptoms. Refers that she has bilateral facial pain. Started one day ago. + runny nose. Clear drainage. No sore throat. No ear pain. + PND. No cough. No fevers/chills. No n/v/d. No loss of taste/smell. She is using nasocort and tylenol. Spouse is also ill. He was seen in urgent care this morning and had covid testing. Patient reports that she had a covid infection less than 2 months ago. PAST MEDICAL HISTORY: PAST MEDICAL HISTORY Diagnosis Date Chronic kidney disease, stage III (moderate) (HCC) DDD (degenerative disc disease), cervical Dr Navjot History of COVID-19 07/12/202106/2021 MTHFR mutation Osteoarthritis PAST SURGICAL HISTORY Procedure Laterality Date DELIVERY ONLY 10/02/1984 , low transverse COLONOSCOPY 05/08/2014 ALLERGIES Amoxicillin, Asa [Salicylates], Codeine, Cortizone-10 [Hydrocortisone], Cymbalta [Duloxetine], Dolibid [Other], Duricef [Cefadroxil], Dye, Entex [place] [Phenylephrine-Guaifenesin], Erythromycin, Flu Vac 2014 (65 Up)- Mf59c(Pf), Keflex [Cephalexin], Levaquin [Levofloxacin], Macrobid [Nitrofurant oin Monohyd/M-Cryst], Mobic [Meloxicam], Morphine, Penicillins, Prednisolone, Prilosec [Omeprazole], Septra [Sulfamethoxazole-Trimethoprim], Sulfa (Sulfonamide Antibiotics), and Tetracycline MEDICATIONS Current Outpatient Medications Medication Sig lisinopril (ZESTRIL, PRINIVIL) 40 mg tablet Take 1 tablet by mouth once daily. atorvastatin (LIPITOR) 10 mg tablet Take 1 tablet by mouth daily at bedtime. For cholesterol. acetaminophen (TYLENOL ARTHRITIS ORAL) Take by mouth. Multivitamin capsule Take 1 capsule by mouth once daily. Current Facility-Administered Medications Medication Dose Route Frequency perflutren lipid microspheres 1.3 mL in NaCl (PF) 0.9% 10 mL injection (DEFINITY) INTRAVENOUS DIRECTED PRN sodium chloride 0.9 % (flush) 10 mL (BD POSIFLUSH) 10 mL INTRAVENOUS DIRECTED PRN FAMILY HISTORY Problem Relation Age of Onset Breast Cancer Mother 74 Heart Brother Diabetes Paternal Grandmother Social History Tobacco Use Smoking status: Former Smoker Smokeless tobacco: Never Used Vaping Use Vaping Use: Never used Substance Use Topics Alcohol use: No Drug use: No EXAM: BP 108/70 Pulse 83 Resp 18 SpO2 96% PHYSICAL EXAM: General Appearance: Well appearing, alert, in no acute distress, well-hydrated, well nourished.. Skin: Skin color, texture, turgor normal, no suspicious rashes or lesions. Head: Normocephalic, no masses, lesions, tenderness or abnormalities. Eyes: Anicteric sclera. Pupils are equally round and reactive to light. Extraocular movements are intact. . Ears: External ears normal, canals clear, Normal TMs bilaterally. Nose/Sinuses: Nares normal, septum midline, mucosa normal, no drainage. + bilateral maxillary sinustenderness. Oropharynx: Lips, mucosa, and tongue normal, teeth and gums normal, oropharynx normal. Neck: Supple, no adenopathy Lungs: Lungs clear to auscultation. No wheezing, rhonchi, rales.. Heart: RRR without murmur, gallop, or rubs. No ectopy. Neurologic: Gait normal. ASSESSMENT/PLAN: 1. URI, acute - ICD9: 465.9, ICD10: J06.9 - Discussed viral etiology and rationale for treatment. - Symptomatic treatment with prn analgesia - Supportive care with fluids and rest - Follow up in one week if symptoms persist or sooner if worsening of symptoms - [id number] 2 MG-30 MG-10 MG/5 ML ORAL SYRUP Discussed treatment plan and patient voices understanding. Patient's questions answered appropriately. Medications and potential side effects were discussed and patient voices understanding. Return to the office as scheduled or as needed for worsening/no improvement. Herlinda Jett APRN.WASH WORKER The patient indicates understanding of these issues and agrees with the plan. This note was partially generated using [employer] voice recognition system. Note was reviewed for accuracy. There may be minor misspellings or grammar miscues with [employer] voice recognition. documented in this encounter[facility]22 Miscellaneous Notes* Telephone Encounter - Daylin Booker LPN - 02/16/2022 5:10 PM EDT Patient has been identified by name and date of : Yes Patient phones for refill(s): Pending Prescriptions Disp Refills LISINOPRIL 40 MG TABLET 90 tablet 1 Sig: Take 1 tablet by mouth once daily. [place]: No Date of last office visit in primary care: 02/07/22 Please advise. Thank you. Daylin Booker LPN documented in this encounterG[facility]05-16-2022 Miscellaneous Notes* Telephone Encounter - Graciela Salguero LPN - 02/14/2022 3:51 PM EDT Patient notified of results, verbalizes understanding of instructions. Graciela Salguero LPN * Telephone Encounter - Cher Crabtree APRN.CNP - 02/14/2022 3:44 PM EDT Can you please call the patient and let her know that I reviewed her cervical spine x-ray. X-ray shows joint space narrowing and degenerative changes which is consistent with arthritis. I would recommend that patient have a follow-up with her spine doctor. Please let me know if she has any questions. Thank you. Cher Cratbree APRN.WILFREDO documented in this encounterGlen[facility]05-16-2022 History of Present illness Narrative* Paige Marino RT(Emma) - 02/14/2022 10:20 AM EDT Radiology Service Progress Note PATIENT NAME: Terri Villar DATE OF SERVICE: February 14, 2022 TIME: 10:24 AM PATIENT IDENTITY VERIFICATION COMPLETED USING TWO (2) IDENTIFIERS: Name and Date of confirmedby patient verbally. FALL SCREENING: Has the patient had 2 falls in the last year or 1 fall with injury or currently using an Ambulatory Assistive Device (Walker, Cane, Wheelchair, Crutches, etc.)? No PATIENT GENDER DATA: Female. status: : No status: NO. PATIENT RELEVANT IMPLANT DATA REVIEWED: Yes RADIOLOGY DEPARTMENT: General X-ray: Exam(s) Completed: Spine X-Ray(s): Cervical AP / LAT / OBL PERIPHERAL IV DATA: Not applicable SIGNED BY: RT Miguel(Emma) February 14, 2022 10:24 AM documented in this encounterGlen[facility]05-16-2022 Instructions* Patient Instructions* Cher Crabtree APRN.CNP - 02/14/2022 10:07 AM EDT 1.) Continue to use tylenol and warm heat to the area. 2.) If pain does not improve recommend getting xray of neck. 3.) Recommend follow up with Dr. Irvign (spine). documented in this encounterGlen[facility]05-16-2022 History of Present illness Narrative* Cher Crabtree APRN.CNP - 02/14/2022 10:00 AM EDT This is a 66 year old female who presents today with: Patient presents with: Acute Visit: neck pain HISTORY OF PRESENT ILLNESS: Terri Villar is a 66 year old female. Patient presents with: Acute Visit: neck pain Patient of Dr. De Luna here in the office for neck pain. Has chronic cervical arthritis per patient. [place] a pop in her neck a couple of days ago and since has felt swollen. Neck is sore. Pain radiates into arms with certain movements, no numbness and tingling. This has been a chronic symptom for some time. Took tylenol and applied heat which was helpful. Has seen Dr. Irving in Spine a couple of years ago. Due for follow up. PAST MEDICAL HISTORY: PAST MEDICAL HISTORY Diagnosis Date Chronic kidney disease, stage III (moderate) (HCC) DDD (degenerative disc disease), cervical Dr Morfin History of COVID-19 07/12/202106/2021 MTHFR mutation Osteoarthritis PAST SURGICAL HISTORY Procedure Laterality Date DELIVERY ONLY 10/02/1984 , low transverse COLONOSCOPY 05/08/2014 ALLERGIES Amoxicillin, Asa [Salicylates], Codeine, Cortizone-10 [Hydrocortisone], Cymbalta [Duloxetine], Dolibid [Other], Duricef [Cefadroxil], Dye, Entex La [Phenylephrine-Guaifenesin], Erythromycin, Flu Vac 2014 (65 Up)- Mf59c(Pf), Keflex [Cephalexin], Levaquin [Levofloxacin], Macrobid [Nitrofurant oin Monohyd/M-Cryst], Mobic [Meloxicam], Morphine, Penicillins, Prednisolone, Prilosec [Omeprazole], Septra [Sulfamethoxazole-Trimethoprim], Sulfa (Sulfonamide Antibiotics), and Tetracycline MEDICATIONS Current Outpatient Medications Medication Sig lisinopril (ZESTRIL, PRINIVIL) 40 mg tablet Take 1 tablet by mouth once daily. atorvastatin (LIPITOR) 10 mg tablet Take 1 tablet by mouth daily at bedtime. For cholesterol. acetaminophen (TYLENOL ARTHRITIS ORAL) Take by mouth. Multivitamin capsule Take 1 capsule by mouth once daily. Current Facility-Administered Medications Medication Dose Route Frequency perflutren lipid microspheres 1.3 mL in NaCl (PF) 0.9% 10 mL injection (DEFINITY) INTRAVENOUS DIRECTED PRN sodium chloride 0.9 % (flush) 10 mL (BD POSIFLUSH) 10 mL INTRAVENOUS DIRECTED PRN FAMILY HISTORY Problem Relation Age of Onset Breast Cancer Mother 74 Heart Brother Diabetes Paternal Grandmother Social History Tobacco Use Smoking status: Former Smoker Smokeless tobacco: Never Used Vaping Use Vaping Use: Never used Substance Use Topics Alcohol use: No Drug use: No REVIEW OF SYSTEMS GENERAL: No weight loss, malaise or fevers/chills HEENT: Negative for frequent or significant headaches, No changes in hearing or vision. NECK: Negative for lumps, goiter, pain and significant neck swelling RESPIRATORY: Negative for cough, hemoptysis, wheezing, dyspnea or shortness of breath CARDIOVASCULAR: Negative for chest pain, leg swelling, orthopnea, or palpitations GI: No nausea, vomiting, or diarrhea/constipation. No hematochezia/melena. No heartburn or reflux symptoms. : No history of dysuria, frequency or incontinence MUSCULOSKELETAL: + Neck Pain SKIN: Negative for lesions, rash, and itching ENDOCRINE: Negative for cold or heat intolerance, polyuria, polydipsia and goiter NEURO: No history of headaches, syncope, paralysis, seizures or tremors MOOD: Negative for depression, anxiety, or suicidal ideation. EXAM: BP 126/76 Pulse 83 Resp 16 Wt 53.5 kg (118 lb) SpO2 97% BMI 20.25 kg/m PHYSICAL EXAM: General Appearance: Well appearing, alert, in no acute distress, well-hydrated, well nourished. Skin: Skin color, texture, turgor normal, no suspicious rashes or lesions. Head: Normocephalic, no masses, lesions, tenderness or abnormalities. Eyes: Anicteric sclera. Extraocular movements are intact. Lungs: Lungs clear to auscultation. No wheezing, rhonchi, rales. Heart: RRR without murmur, gallop, or rubs. No ectopy. Extremities: No deformities, edema, skin discoloration, clubbing or cyanosis. Good capillary refill. Musculoskeletal: No joint swelling, deformity.+ Cervical spine tenderness noted with palpation. Full ROM, no swelling noted. Peripheral Pulses: Normal, Capillary refill <2secs, strong peripheral pulses, Pulses palpable. Neurologic: Gait normal. Reflexes normal and symmetric. Sensation grossly intact. ASSESSMENT/PLAN: 1. Neck pain - ICD9: 723.1, ICD10: M54.2 - Get updated cervical xray. - Continue with Tylenol and heat to the area. - Recommend scheduling follow up appointment with Dr. Irving in Spine. - XR CERV OTHER 4V AP/LAT/OBL Follow-up pending test results or sooner as needed. Discussed treatment plan and patient voices understanding. Patient's questions answered appropriately. Medications and potential side effects were discussed and patient voices understanding. Cher Crabtree APRN.WILFREDO This note was partially generated using [employer] voice recognition system. Note was reviewed for accuracy. There may be minor misspellings or grammar miscues with [employer] voice recognition. documented in this encounterG[facility]05-11-2022 History of Present illness Narrative* Rosie Luna MD - 02/09/2022 6:49 PM EDT Terri Villar 1955 REFERRING PHYSICIAN: Self CHIEF COMPLAINT: Consult (EGD consult) HPI: The patient is a 66 year old female presents with history of ulcers She also has known cholelithiasis. She also has known IPMN I had seen patient in past for consideration of upper and lower endoscopy (screening colonoscopy), but she did not have health insurance, but she states that she will have this in April. She states that she has no abdominal pain at this time. She is taking her Pepcid accordingly. She denies weight loss. She denies TOB use. She denies blood in stools, she denies acid indigestion. PAST MEDICAL HISTORY Diagnosis Date Chronic kidney disease, stage III (moderate) (HCC) DDD (degenerative disc disease), cervical Dr Navjot History of COVID-19 07/12/202106/2021 MTHFR mutation Osteoarthritis PAST SURGICAL HISTORY Procedure Laterality Date DELIVERY ONLY 10/02/1984 , low transverse COLONOSCOPY 05/08/2014 Current Outpatient Medications Medication Sig lisinopril (ZESTRIL, PRINIVIL) 40 mg tablet Take 1 tablet by mouth once daily. atorvastatin (LIPITOR) 10 mg tablet Take 1 tablet by mouth daily at bedtime. For cholesterol. acetaminophen (TYLENOL ARTHRITIS ORAL) Take by mouth. Multivitamin capsule Take 1 capsule by mouth once daily. ALLERGIES: Amoxicillin, Asa [Salicylates], Codeine, Cortizone-10 [Hydrocortisone], Cymbalta [Duloxetine], Dolibid [Other], Duricef [Cefadroxil], Dye, Entex La [Phenylephrine-Guaifenesin], Erythromycin, Flu Vac 2015 (65 Up)- Mf59c(Pf), Keflex [Cephalexin], Levaquin [Levofloxacin], Macrobid [Nitrofuran toin Monohyd/M-Cryst], Mobic [Meloxicam], Morphine, Penicillins, Prednisolone, Prilosec [Omeprazole], Septra [Sulfamethoxazole-Trimethoprim], Sulfa (Sulfonamide Antibiotics), and Tetracycline PERSONAL HISTORY: Social History Tobacco Use Smoking status: Former Smoker Smokeless tobacco: Never Used Vaping Use Vaping Use: Never used Substance Use Topics Alcohol use: No Drug use: No FAMILY HISTORY Problem Relation Age of Onset Breast Cancer Mother 74 Heart Brother Diabetes Paternal Grandmother The review of systems data was entered by the nurse and reviewed by ct Nursing Notes: Elaine Steven RN 02/09/2022 3:55 PM Signed REVIEW OF SYSTEMS: General: The patient denies fatigue, denies weight loss, denies weight gain, denies feeling hot, and denies feelings of cold. Eyes: The patient denies glaucoma, denies eye injury/surgery, does not wear glasses or contacts. Ear/Nose/Throat: The patient NOTES allergies, denies hayfever, denies ear infections, and denies bloody noses. Cardiovascular: The patient denies chest pain, denies heart disease, NOTES high blood pressure,denies cardiac stent, denies prior heart attack, denies irregular heart beat, NOTES high cholesterol, denies poor circulation, denies heart failure, other cardiac issues, denies claudication, denies cold feet, denies peripheral arterial stent. Respiratory: The patient denies tuberculosis, denies pneumonia, denies frequent cough, denies pulmonary embolism, denies shortness of breath, and denies coughing up blood. Gastrointestinal: The patient denies difficulty swallowing, NOTES acid reflux, denies ulcers, denies vomiting, denies jaundice/hepatitis, NOTES gallbladder problems, denies black or tarry stools, denies hemorrhoids, denies bleeding from rectum, denies diverticulitis, denies constipation, denies diarrhea, denies loss of stool control, and denies hernias. Kidney/Bladder: The patient denies kidney stones, denies urine infections, and denies bloody urine. Skin: The patient denies a history of skin cancer, denies bleeding/changing moles, and denies a history of skin rash. Neurologic: The patient denies a history of epilepsy/convulsions, denies headaches, denies head/spinal injuries, and denies stroke/TIA. Psychiatric: The patient denies psychiatric medications, denies depression, and denies voices, denies substance abuse. Endocrine: The patient denies thyroid disorders, denies diabetes, and denies hormonal problems. Hematologic: The patient denies a history of bruising, denies bleeding, and denies anemia, denies blood clots. Infections: The patient denies a history of measles and mumps, denies rheumatic fever, and denies sexually transmitted diseases. Musculoskeletal: The patient denies back pain/injury, NOTES back problems, denies sciatica, denies knee/foot trouble, NOTES arthritis, or denies gout. When was patient's last Mammogram screening? 10/12/2021 Last Colonoscopy: 05/08/2014 Elaine Steven RN PHYSICAL EXAMINATION: General: The patient is 66 year old female, well nourished, well hydrated in no acute distress. Thepatient is oriented to time, place, and person. VITALS: Blood pressure 110/70, pulse 106, temperature 37.1 C (98.8 F), height 162.6 cm (5' 4), weight 53.1 kg (117 lb), SpO2 96 %. Body mass index is 20.08 kg/m . Head: Normal cephalic, atraumatic Eyes: pupils are equally round, sclera are clear/anicteric Neck is supple with no tracheal deviation Respiratory: Normal respiratory excursion and pattern. Abdominal exam: benign Extremities: no clubbing, cyanosis or edema. Neuro: non focal Psych: normal mood Assessment IMPRESSION: history of PUD, cholelithiasis, IPMN PLAN: I have discussed the above with the patient and her who is present with her. I commend this patient for being financially conscientious. I feel that it is reasonable to wait until she has adequate health insurance coverage and she states that this will occur in April. I told her to follow up with me in April and then we can discuss all of the above. I have told her to continue with her medications as prescribed. She states her compliance. The patient acknowledges above. I have answered all questions to the patient s satisfaction and the patient has no further questions. I have confirmed and edited as necessary, the PFSH and ROS obtained by others. . 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 Eyes: The patient denies glaucoma, denies eye injury/surgery, does not wear glasses or contacts. Ear/Nose/Throat: The patient NOTES allergies, denies hayfever, denies ear infections, and denies bloody noses. Cardiovascular: The patient denies chest pain, denies heart disease, NOTES high blood pressure,denies cardiac stent, denies prior heart attack, denies irregular heart beat, NOTES high cholesterol, denies poor circulation, denies heart failure, other cardiac issues, denies claudication, denies cold feet, denies peripheral arterial stent. Respiratory: The patient denies tuberculosis, denies pneumonia, denies frequent cough, denies pulmonary embolism, denies shortness of breath, and denies coughing up blood. Gastrointestinal: The patient denies difficulty swallowing, NOTES acid reflux, denies ulcers, denies vomiting, denies jaundice/hepatitis, NOTES gallbladder problems, denies black or tarry stools, denies hemorrhoids, denies bleeding from rectum, denies diverticulitis, denies constipation, denies diarrhea, denies loss of stool control, and denies hernias. Kidney/Bladder: The patient denies kidney stones, denies urine infections, and denies bloody urine. Skin: The patient denies a history of skin cancer, denies bleeding/changing moles, and denies a history of skin rash. Neurologic: The patient denies a history of epilepsy/convulsions, denies headaches, denies head/spinal injuries, and denies stroke/TIA. Psychiatric: The patient denies psychiatric medications, denies depression, and denies voices, denies substance abuse. Endocrine: The patient denies thyroid disorders, denies diabetes, and denies hormonal problems. Hematologic: The patient denies a history of bruising, denies bleeding, and denies anemia, denies blood clots. Infections: The patient denies a history of measles and mumps, denies rheumatic fever, and denies sexually transmitted diseases. Musculoskeletal: The patient denies back pain/injury, NOTES back problems, denies sciatica, denies knee/foot trouble, NOTES arthritis, or denies gout. When was patient's last Mammogram screening? 10/12/2021 Last Colonoscopy: 05/08/2014 Elaine Steven RN documented in this encounterG[facility]05-[facility]22 History of Present illness Narrative* Bridget De Luna MD - 02/07/2022 4:59 PM EDT No chief complaint on file. HPI: Patient presents today for office visit for acute visit. Has a history of chronic cervical degenerative disc disease and was referred to pain management forthe same twice since 09/21. She states she will do that soon. Has been referred previously to physical therapy. Has had xrays and seen Dr. Irving from spine med for the same as well. Started on Monday. No recent trauma. Pain got worse today. Is mostly on the left side of the neck. No weakness or numbness. No lumps that she can feel. Using heat and ice. Did not use any of her muscle relaxers today. Xray: IMPRESSION: DEGENERATIVE DISC DISEASE WITH REVERSAL NORMAL CERVICAL LORDOSIS. DEGENERATIVE FACET DISEASE. SUBLUXATIONS BETWEEN C2 AND C4 LEVELS THE UPPER LIMITS NORMAL OF MOVEMENT WITH FLEXION AND EXTENSION. MEDICATIONS: Current Outpatient Medications Medication Sig lisinopril (ZESTRIL, PRINIVIL) 40 mg tablet Take 1 tablet by mouth once daily. atorvastatin (LIPITOR) 10 mg tablet Take 1 tablet by mouth daily at bedtime. For cholesterol. acetaminophen (TYLENOL ARTHRITIS ORAL) Take by mouth. Multivitamin capsule Take 1 capsule by mouth once daily. Current Facility-Administered Medications Medication Dose Route Frequency perflutren lipid microspheres 1.3 mL in NaCl (PF) 0.9% 10 mL injection (DEFINITY) INTRAVENOUS DIRECTED PRN sodium chloride 0.9 % (flush) 10 mL (BD POSIFLUSH) 10 mL INTRAVENOUS DIRECTED PRN ALLERGIES: ALLERGIES Allergen Reactions Amoxicillin Itching Asa [Salicylates] Itching Codeine Itching Cortizone-10 [[place]* Itching Cymbalta [Duloxetin* Intolerance One pill: bruning all over Dolibid [Other] Itching Duricef [Cefadroxil] Itching Dye Shortness of Breath Ct dye. Including rash Entex La [Phenyleph* Itching Erythromycin Itching Flu Vac 2014 (65 Up* Shortness of Breath Keflex [Cephalexin] Itching Levaquin [Levofloxa* Other: See Comments itching Macrobid [Nitrofura* Other: See Comments Fast heart rate Mobic [Meloxicam] Itching Morphine Itching Penicillins Hives Prednisolone Other: See Comments Elevated blood pressure. Prilosec [Omeprazol* Itching Septra [Sulfamethox* Hives Sulfa (Sulfonamide * Hives Tetracycline Hives Can take doxycycline PAST MEDICAL HISTORY Diagnosis Date Chronic kidney disease, stage III (moderate) (HCC) DDD (degenerative disc disease), cervical Dr Navjot History of COVID-19 07/12/202106/2021 MTHFR mutation Osteoarthritis PAST SURGICAL HISTORY Procedure Laterality Date DELIVERY ONLY 1984 , low transverse FAMILY HISTORY Problem Relation Age of Onset Breast Cancer Mother 74 Heart Brother Diabetes Paternal Grandmother Social History Tobacco Use Smoking status: Former Smoker Smokeless tobacco: Never Used Substance Use Topics Alcohol use: No Drug use: No Reviewed current medications, allergies, past medical history, surgical history, family history andsocial history today. REVIEW OF SYSTEMS All other reviewed and negative other than HPI. VITALS: BP 122/72 Pulse 76 Wt 54 kg (119 lb) BMI 20.43 kg/m Last 4 Encounter Wt Readings: Date: Wt: 02/02/2022 54.9 kg (121 lb) 01/29/2022 54.4 kg (120 lb) 01/26/2022 54.4 kg (120 lb) 01/19/2022 54 kg (119 lb) PHYSICAL EXAMINATION: General appearance: Well appearing, alert, in no acute distress, well-hydrated, well nourished. Skin: Skin color, texture, turgor normal, no suspicious rashes or lesions Head: Normocephalic, no masses, lesions, tenderness or abnormalities Neck: supple. Tender over posterior neck. Muscle feels tight. Back: Normal exam Extremities: No deformities, edema, skin discoloration, clubbing or cyanosis. Good capillary refill. Musculoskeletal: No joint swelling, deformity, or tenderness Peripheral pulses: Normal Neuro: Gait normal. Reflexes normal and symmetric. Sensation grossly intact. ASSESSMENT/PLAN: 1. Myalgia - ICD9: 729.1, ICD10: M79.10 (primary diagnosis) - can't use naids. Does not tolerate steroids. Start flexeril and tylenol prn. Red flags for re-assessment reviewed with patient in detail. Call if symptoms worsen at all or if not better in one to two weeks Hold on imaging unless worsens. 2. DDD (degenerative disc disease), cervical - ICD9: 722.4, ICD10: M50.30 - see pain management as recommended. Bridget De Luna documented in this encounterG[facility]05-04-2022 Miscellaneous Notes* Telephone Encounter - Rachael Hammond APRN.WASH WORKER - 02/02/2022 7:34 PM EDT Patient had office visit today with Dr. De Luna. Rachael Hammond APRN.WASH WORKER * Telephone Encounter - Leonora Pennington Ma - 01/31/2022 7:27 AM EDT Please see patient message documented in this [facility]05-03-2022 Miscellaneous Notes* Telephone Encounter - Caroline Benoit RN - 02/01/2022 9:04 AM EDT Condensed in other message. Closing. documented in this [facility]05-03-2022 Miscellaneous Notes* Telephone Encounter - Caroline Benoit RN - 02/01/2022 9:00 AM EDT Condense messages. Closing. documented in this [facility]04-30-[facility] History of Present illness Narrative* Bayron Wesley, - 01/29/2022 8:20 AM EDT CC: Terri Villar is a 66 year old female who presents to the office for fatgieu HPI: Fatigue symptoms, present for the last 1-2 months since having a covid 19 infection. Also history of iron deficiency and vitamin D deficiency, not always consistent on taking her vitamins regularly. Was seen in UC 2-3 days ago and started on doxycycline for concerns for a potential ear infection. Symptoms seem to be improving, but still some drainage (post nasal) and itchiness of her nose etc. Nofevers or chills. PAST MEDICAL HISTORY Diagnosis Date Chronic kidney disease, stage III (moderate) (HCC) DDD (degenerative disc disease), cervical Dr Knapic History of COVID-19 07/12/202106/2021 MTHFR mutation Osteoarthritis PAST SURGICAL HISTORY Procedure Laterality Date DELIVERY ONLY 1984 , low transverse Current Outpatient Medications Medication Sig doxycycline monohydrate 100 mg tablet Take 1 tablet by mouth twice daily for 5 days. famotidine (PEPCID) 20 mg tablet Take 1 tablet by mouth twice daily. lisinopril (ZESTRIL, PRINIVIL) 40 mg tablet Take 1 tablet by mouth once daily. atorvastatin (LIPITOR) 10 mg tablet Take 1 tablet by mouth daily at bedtime. For cholesterol. acetaminophen (TYLENOL ARTHRITIS ORAL) Take by mouth. Multivitamin capsule Take 1 capsule by mouth once daily. estradiol (ESTRACE) 0.01 % (0.1 mg/gram) vaginal cream apply one gram or pea sized amount over the vaginal opening every night for 2 weeks then 2 evenings per week. (Patient not taking: Reported on 01/26/2022 ) promethazine (PHENERGAN) 25 mg tablet Take 1 tablet by mouth every 6 hours as needed. For nausea (Patient not taking: Reported on 01/26/2022 ) fosfomycin (MONUROL) 3 g pack Take 1 Packet by mouth every 72 hours. (Patient not taking: Reported on 01/26/2022 ) sertraline (ZOLOFT) 50 mg tablet Take 1/2 tab once a day orally for one week then 1 tab once a day (Patient not taking: Reported on 01/26/2022 ) Current Facility-Administered Medications Medication Dose Route Frequency perflutren lipid microspheres 1.3 mL in NaCl (PF) 0.9% 10 mL injection (DEFINITY) INTRAVENOUS DIRECTED PRN sodium chloride 0.9 % (flush) 10 mL (BD POSIFLUSH) 10 mL INTRAVENOUS DIRECTED PRN ALLERGIES Allergen Reactions Amoxicillin Itching Asa [Salicylates] Itching Codeine Itching Cortizone-10 [[place]* Itching Cymbalta [Duloxetin* Intolerance One pill: bruning all over Dolibid [Other] Itching Duricef [Cefadroxil] Itching Dye Shortness of Breath Ct dye. Including rash Entex La [Phenyleph* Itching Erythromycin Itching Flu Vac 2014 (65 Up* Shortness of Breath Keflex [Cephalexin] Itching Levaquin [Levofloxa* Other: See Comments itching Macrobid [Nitrofura* Other: See Comments Fast heart rate Mobic [Meloxicam] Itching Morphine Itching Penicillins Hives Prednisolone Other: See Comments Elevated blood pressure. Prilosec [Omeprazol* Itching Septra [Sulfamethox* Hives Sulfa (Sulfonamide * Hives Tetracycline Hives Can take doxycycline Social History Tobacco Use Smoking status: Former Smoker Smokeless tobacco: Never Used Substance Use Topics Alcohol use: No Drug use: No ROS: See HPI PE: BP 122/80 Pulse 81 Temp (Src) 98.2 (Temporal) Resp 16 Wt 120 lb (54.4kg) SpO2 98% Gen: A&OX3, NAD, non-toxic appearing HEENT: PERRLA, EOMs intact b/l, nares with bluish discoloration of turbinates b/l with clear drainage, pharynx without erythema, exudate, lesions, + clear post nasal drainage. Uvula midline. MMM, EACand TM normal b/l Neck: No LAD, no thyromegaly, no meningismus. CV: RRR, no murmur Lungs: CTA b/l, no wheezing Skin: No rashes, lesions, or wounds on exposed skin. Fatigued appearing, slightly pale ASSESSMENT/PLAN: 1. Fatigue, unspecified type - ICD9: 780.79, ICD10: R53.83 (primary diagnosis) Unsure cause, may be secondary to recent covid 19 infection or another cause, labs as ordered - COMP METABOLIC PANEL - CBC - VITAMIN D 25 HYDROXY - VITAMIN B12 BLOOD - TSH BLD - T4 FREE/FREE THYROX - IRON + TIBC 2. Thyroid nodule - ICD9: 241.0, ICD10: E04.1 - recheck thyroid labs as ordered. - TSH BLD - T4 FREE/FREE THYROX 3. Vitamin D deficiency - ICD9: 268.9, ICD10: E55.9 - recheck labs as ordered, needs to be consistent with supplement - VITAMIN D 25 HYDROXY 4. Stage 3 chronic kidney disease, unspecified whether stage 3a or 3b CKD (HCC) - ICD9: 585.3, ICD10: N18.30 -see above, f/u with Urologist as scheduled. - COMP METABOLIC PANEL - CBC - IRON + TIBC 5. MTHFR mutation - ICD9: V84.89, ICD10: Z15.89 - IRON + TIBC 6. Iron deficiency - ICD9: 280.9, ICD10: E61.1 - IRON + TIBC 7. Nasal congestion - ICD9: 478.19, ICD10: R09.81 Recommend starting on nasal saline spray 2-3 times a day and daily antihistamine such as Claritin as d/w her today Bayron Wesley DO Return if no improvement. Follow up with Bridget De Luna MD. To ER if develops chest pain, shortness of breath Discussed risks, benefits, alternatives, and potential side effects of medications. Patient/Guardian expressed understanding and agreed with the plan. See patient instructions. Bayron Wesley DO [address] [place] [address] documented [facility] this encounterG[facility]04[facility]22 Instructions* Patient Instructions* Esther Dial APRN.WASH WORKER - 01/26/2022 9:21 AM EDT 1.) Get more rest than you usually do - this will speed your recovery. If you push hard with your usual busy schedule, you will be sicker longer. 2.) Drink a lot of water - enough to make you urinate every 2-3 hours (your urine should be a lightyellow color). This helps thin the phlegm and sooth the airways. Gatorade (G2) is less in sugar andreplaces your electrolytes if not eating well. 3.) Run a cool mist humidifier in your bedroom on high with the door closed. This is a natural way to decongest, and it helps lessen scratchy throats, nasal stuffiness and coughs. 4.) For those without blood pressure concerns, take Sudafed as a decongestant (decreases stuffiness-lets drain), but realize that you will need to take it every 4-6 hours for several days. The lower dose is generally better tolerated (30mg)... Some people can make feel fast heart rate/jittery. You also may try anti-allergy pill like Claritin(loratidine) 10mg or romelia, benadryl (makes sleepy) over the counter as directed to help with drippy nose. Mucinex 600- 1200mg twice daily(plain) may help thin secretions so they are easier to cough up. Those with high blood pressure and not with prostateproblems can try [id number] Coricidin HBP for congestion. You may find nasal sprays such as Flonase or Nasacort, saline nasal spray and/or Netti Pot may be beneficial 5.) Take ibuprofen or acetominophen every 4-6 hours for pain/aches as needed if not contraindicatedfor you. Antibiotic as directed per prescription If you should breakout in a rash, stop the medicine and call the office. Any antibiotic has the potential to cause diarrhea due to alteration in the normal bacterial candy of the gut. This can be reduced by eating yogurt with active cultures or taking probiotics daily while on the medication. If diarrhea becomes severe (watery, large volumes or more than 3-4/day) call the office. Women may experience yeast vaginitis due to alteration in the vaginal candy. Symptoms include vaginal itching, irritation, and often a clumpy white discharge. If this occurs, there are several effective over the counter remedies available, including one-dose treatments. If these are unsuccessful, call the office. Antibiotics may interfer with control. If you are on oral contraceptives, use another form of protection (condoms, foams, jellies, diaphragm) throught the end of whatever pill pack you are on in 10 days. If you are not improving in 3-5 days or are worsening follow up with PCP documented in this encounterG[facility]04-27-2022 History of Present illness Narrative* Esther Dial APRN.WILFREDO - 01/26/2022 9:20 AM EDT CC: Patient presents with: Sinus Problem: headache and congestion x this am patient actually has had symptoms for 8 days but today woke up with the pressure in face. HPI: Terri Villar is a 66 year old female who presents to the office with complaint of head congestionand sinus symptoms for a week. Symptoms are worsening Associated symptoms includes facial pain/pressure. Denies nausea, vomiting and diarrhea. Treatments tried include nothing so far. with no relief of symptoms. Sick contacts: unknown. History of asthma, frequent episodes of bronchitis, chronic bronchitis, bronchiectasis or COPD: No Smoker: No Seasonal/environmental allergies: No The ROS is otherwise negative. The patient's pmh, medications, allergies, and past visits are reviewed. PHYSICAL EXAM: BP 112/68 Pulse 86 Temp 36.3 C (97.4 F) Resp 16 Wt 54.4 kg (120 lb) SpO2 99% BMI 20.60 kg/m General appearance: alert, cooperative, pleasant, in no acute distress Head: Normocephalic Eyes: EOM's intact, conjunctiva pink and moist, no icterus, sclera white, non-injected Ears: Right ear: External ear/canal- Normal, TM - clear with good landmarks. Left ear: External ear/canal- Normal, TM - clear with good landmarks Oropharynx:moist without lesions, No erythema, exudates or tonsillar hypertrophy. Heart: Negative. RRR without obvious murmur, gallop, or rubs. No ectopy. Lungs: clear to auscultation, without rales or wheeze, good air exchange PAST MEDICAL HISTORY Diagnosis Date Chronic kidney disease, stage III (moderate) (HCC) DDD (degenerative disc disease), cervical Dr Navjot History of COVID-19 07/12/202106/2021 MTHFR mutation Osteoarthritis PAST SURGICAL HISTORY Procedure Laterality Date DELIVERY ONLY 1984 , low transverse ALLERGIES Amoxicillin, Asa [Salicylates], Codeine, Cortizone-10 [Hydrocortisone], Cymbalta [Duloxetine], Dolibid [Other], Duricef [Cefadroxil], Dye, Entex La [Phenylephrine-Guaifenesin], Erythromycin, Flu Vac 2014 (65 Up)- Mf59c(Pf), Keflex [Cephalexin], Levaquin [Levofloxacin], Macrobid [Nitrofurant oin Monohyd/M-Cryst], Mobic [Meloxicam], Morphine, Penicillins, Prednisolone, Prilosec [Omeprazole], Septra [Sulfamethoxazole-Trimethoprim], Sulfa (Sulfonamide Antibiotics), and Tetracycline MEDICATIONS famotidine (PEPCID) 20 mg tablet Take 1 tablet by mouth twice daily. lisinopril (ZESTRIL, PRINIVIL) 40 mg tablet Take 1 tablet by mouth once daily. atorvastatin (LIPITOR) 10 mg tablet Take 1 tablet by mouth daily at bedtime. For cholesterol. acetaminophen (TYLENOL ARTHRITIS ORAL) Take by mouth. Multivitamin capsule Take 1 capsule by mouth once daily. doxycycline monohydrate 100 mg tablet Take 1 tablet by mouth twice daily for 5 days. estradiol (ESTRACE) 0.01 % (0.1 mg/gram) vaginal cream apply one gram or pea sized amount over the vaginal opening every night for 2 weeks then 2 evenings per week. promethazine (PHENERGAN) 25 mg tablet Take 1 tablet by mouth every 6 hours as needed. For nausea fosfomycin (MONUROL) 3 g pack Take 1 Packet by mouth every 72 hours. sertraline (ZOLOFT) 50 mg tablet Take 1/2 tab once a day orally for one week then 1 tab once a day FAMILY HISTORY Problem Relation Age of Onset Breast Cancer Mother 74 Heart Brother Diabetes Paternal Grandmother Social History Tobacco Use Smoking status: Former Smoker Smokeless tobacco: Never Used Substance Use Topics Alcohol use: No Drug use: No ASSESSMENT/PLAN: 1. Sinus congestion - ICD9: 478.19, ICD10: R09.81 Prescription instructions reviewed with patient as applicable. Doxycycline bid for 5 days because previously tolerated. Potential red flag symptoms discussed with the patient. Reviewed appropriate action plan to take if red flag symptoms occur. Patient agreeable to treatment plan. Esther Dial APRN.WILFREDO documented in this encounterG[facility]04-20-2022 Instructions* Patient Instructions* Halie Terrazas APRN.CNP - 01/19/2022 10:20 AM EDT Images from the original note were not included. Cystoscopy What is a cystoscopy? A cystoscopy is a procedure done by a urologist, a doctor specializing in the urinary system. During a cystectomy, the urologist uses a scope to look at the inside of the bladder, where urine is stored, and in the urethra, the channel that urine flows through out of the bladder. A cystoscopy may also be used to remove something that shouldn t be there, such as a bladder stone,or to take a biopsy (a sample of tissue) from the bladder lining to analyze it in the lab for further information. The procedure can also help with placing a catheter, which is a thin drainage tube for urine. When is a cystoscopy needed? The cystoscopy procedure is ordered by the urologist when more information is needed about what is happening inside the lower urinary tract. Most often it is used to check for any problems in the bladder and its lining. The procedure is also an important tool to identify what may be causing abnormal problems, such as: Frequent urinary tract infections (UTIs) Hematuria, or blood in the urine Urinary frequency, or urinating more than 8 times a day Urinary urgency, or the sudden, strong urge to urinate Urinary retention, or when the bladder does not empty completely Urinary incontinence, or urine leakage Pain or burning before, during, or after urination Trouble starting the flow of urine, completing urination, or both Abnormal cells found in a urine sample How does a patient prepare for a cystoscopy? Before the procedure is recommended, the urologist will ask about the patient s medical history, current prescription and recg-oem-airaozy medications, and allergies to medications, including anesthetics. The urologist will explain what the patient can expect after the procedure. The patient may need to give a urine sample to test for a urinary tract infection (UTI). If the patient has a UTI, the urologist may treat the infection with antibiotics before performing a cystoscopy. The urologist or nurse may ask the patient to drink plenty of liquids, and to urinate immediately before the procedure. What happens during a cystoscopy procedure? The cystoscopy procedure usually takes about 30 minutes and is done on an outpatient basis. The urologist will recommend that the patient empty his or her bladder before the procedure begins. The kmiw-zz-hgcs process may be similar to this: 1. The patient will be lying on an exam table. The urologist may place some gel or a local anesthetic in the patient s urethra to aid in reducing any discomfort while the procedure is taking place. 2. The urologist will gently insert the cystoscope through the urethra into the bladder. The patient may feel discomfort or a pressure sensation. The cystoscope is a long, thin tube with a lens on one end that the urologist looks through or, on a camera-equipped scope, visualizes on a monitor. The other end of the cystoscope that is inserted into the urethra has a tiny lens with a light thatallows the urologist to look inside the urethra and bladder. There are two types of cystoscopes. One has a flexible insertion tube while the other is stiff. 3. Once the cystoscope is inserted, the urologist will need to instill some sterile water or a normal saline solution from the cystoscope into the bladder. The water /saline fills and stretches the bladder so the urologist can get a better view of the bladder wall. 4. As the liquid enters the bladder, the patient may again feel some discomfort as well as the urgeto urinate. If necessary, the urologist can remove some of the liquid from the bladder during the procedure. Once the procedure is over, the urologist may drain the patient s bladder, or ask the patient to use the bathroom to urinate before he or she leaves the office. During the brief procedure, the urologist examines the lining of the urethra as the cystoscope passes through it and then into the bladder. Once the cystoscope reaches the bladder, the urologist examines the lining of the bladder. During the procedure, the urologist can remove a bladder stone or take a biopsy if needed. Sometimes a monitor is set up in the doctor s office so that both the urologist and patient can watch the procedure as it is taking place. What does the urologist look for during a cystoscopy? The urologist will be looking for anything that appears unusual. The bladder wall should be smooth,and there should not be any blockages in the lower urinary tract. During a cystoscopy, the urologist is able to see: Bladder stones: A small stone-like mass that forms from minerals in the urine. It usually forms when urine does not completely leave the bladder and the minerals in the urine crystallize. If not treated, they can cause pain and lead to blood in the urine. A stone can also cause a blockage so that urine cannot leave the bladder. Abnormal tissue, polyps, tumors, or cancer in the urethra or bladder Stricture, or a narrowing of the urethra: This could be a symptom of an enlarged prostate in men orof scar tissue in the urethra. During the cystoscopy, can the urologist treat some problems? During a cystoscopy, the urologist may be able to treat minor problems such as bleeding in the bladder or blockage in the urethra. The urologist may also use a cystoscopy to: Remove a small stone in the bladder or urethra Remove or treat abnormal tissue, polyps, and certain tumors Inject medication into the urethra wall or the bladder to treat urinary leakage What happens after the cystoscopy procedure? Typically, a cystoscopy is done in the urologist s office and afterwards most patients go home the same day as the procedure. Sometimes after a cystoscopy procedure, the patient may: Feel a burning or soreness around the urethra Feel slight burning while urinating Notice small flecks of blood in the urine Feel mild discomfort in the bladder area or kidney area when urinating Need to urinate frequently or urgently These problems should not last more than a day after the procedure. If pain persists, bloody urine lasts longer than 48 hours, or the patient develops a fever, the patient should call the doctor. Occasionally, the patient may have an increase in urinary frequency for the first 24 hours after the procedure. There may be also a change in the color of the urine (it may be darker, or look pink orred due to mild bleeding). This is common, especially if a biopsy was taken. After the procedure, the urologist may recommend that the patient: Drink 16 ounces of water each hour for 2 hours after the procedure Take a warm bath to help ease the burning feeling Place a warm, damp washcloth over the urethral opening to relieve discomfort Take an emvw-tcw-zyampxr pain medicine If necessary, the urologist may prescribe an antibiotic to take for a couple of days after the procedure to prevent an infection. If you have severe pain, chills, or fever (these could be signs of aninfection), it is important to call the urologist s office and explain the symptoms. What are the risks of cystoscopy? Every patient is different, and the urologist will take into consideration each patient s specific medical history when explaining possible complications from the procedure. Although minimal, the risks of cystoscopy may include: Urinary tract infections (UTI) Bleeding Abdominal pain Burning or discomfort during urination Possible injury to the urethra or bladder Narrowing of the urethra because of scar tissue formation Trouble urinating due to swelling of surrounding tissues If any of the following symptoms occur after a cystoscopy, you should call the urologist right away: Inability to urinate and the discomfort of a full bladder Burning or discomfort during urination that lasts more than 2 days Bright red urine or blood clots in the urine Fever Severe discomfort References: NIH: National [place] of Diabetes and Digestive and Kidney Diseases. Cystoscopy and Ureteroscopy Accessed 03/30/2017. Stephy Wilcox, Cody D, Pascual H, Katelyn JS. The History of Cystoscopy in Urology, Internet Journal of Urology. 14,1 (2014) [employer] Accessed 03/30/2017. Urology [facility]. What is Cystoscopy? Accessed 03/30/2017. Copyright 3475-8093 The [facility]. All rights reserved. documented in this encounterGlen[facility]04-20-2022 History of Present illness Narrative* Halie Terrazas APRN.WILFREDO - 01/19/2022 10:00 AM EDT Terri Villar is a 66 year old female who presents today for a follow up for No chief complaint onfile. CHIEF COMPLAINT & HISTORY OF PRESENT ILLNESS CC: follow up 66 year old female with a history of CKD, HTN , presents today for incomplete bladder emptying and intermittent suprapubic cramping, she also reports some discomfort with intercourse. She was seen in our office in October 2021 and ua micro was negative for RBC Microscopic UA negative in 04/2021, 01/2021, 11/2020. Denies gross hematuria Denies dysuria, urinary incontinence Creatinine 1.11 Followed by nephrology for CKD PVR 130 cc, 0 cc at last office visit Renal US 10/18/2021 RESULT: Evaluation is limited by overlying bowel gas shadowing. Right Kidney: -Renal length: 8.7 cm -Parenchyma: Parenchyma echogenicity is increased. Normal parenchymal thickness. -Collecting system: No hydronephrosis. -Calculus: No echogenic, shadowing calculus. -Lesion: Midpole cyst measures 1.5 x 1.4 x 1.4 cm. Left Kidney: -Renal length: 8.3 cm -Parenchyma: Parenchyma echogenicity is increased. Normal parenchymal thickness. -Collecting system: No hydronephrosis. -Calculus: No echogenic, shadowing calculus. -Lesion: None. Bladder: Normal sonographic appearance. VITALS: There were no vitals taken for this visit. ALLERGIES: Amoxicillin, Asa [Salicylates], Codeine, Cortizone-10 [Hydrocortisone], Cymbalta [Duloxetine], Dolibid [Other], Duricef [Cefadroxil], Dye, Entex [place] [Phenylephrine-Guaifenesin], Erythromycin, Flu Vac 2014 (65 Up)- Mf59c(Pf), Keflex [Cephalexin], Levaquin [Levofloxacin], Macrobid [Nitrofuran toin Monohyd/M-Cryst], Mobic [Meloxicam], Morphine, Penicillins, Prednisolone, Prilosec [Omeprazole], Septra [Sulfamethoxazole-Trimethoprim], Sulfa (Sulfonamide Antibiotics), and Tetracycline MEDICATIONS: Current Outpatient Medications Medication Sig Dispense Refill promethazine (PHENERGAN) 25 mg tablet Take 1 tablet by mouth every 6 hours as needed. For nausea 20tablet 0 fosfomycin (MONUROL) 3 g pack Take 1 Packet by mouth every 72 hours. 2 Packet 0 sertraline (ZOLOFT) 50 mg tablet Take 1/2 tab once a day orally for one week then 1 tab once a day 30 tablet 5 famotidine (PEPCID) 20 mg tablet Take 1 tablet by mouth twice daily. 60 tablet 2 lisinopril (ZESTRIL, PRINIVIL) 40 mg tablet Take 1 tablet by mouth once daily. 90 tablet 1 atorvastatin (LIPITOR) 10 mg tablet Take 1 tablet by mouth daily at bedtime. For cholesterol. 90 tablet 3 acetaminophen (TYLENOL ARTHRITIS ORAL) Take by mouth. Multivitamin capsule Take 1 capsule by mouth once daily. Current Facility-Administered Medications Medication Dose Route Frequency Provider Last Rate Last Admin perflutren lipid microspheres 1.3 mL in NaCl (PF) 0.9% 10 mL injection (DEFINITY) INTRAVENOUS DIRECTED PRN Bridget De Luna MD sodium chloride 0.9 % (flush) 10 mL (BD POSIFLUSH) 10 mL INTRAVENOUS DIRECTED PRN Bridget De Luna MD SOCIAL HISTORY: Social History Tobacco Use Smoking status: Former Smoker Smokeless tobacco: Never Used Substance Use Topics Alcohol use: No Drug use: No PAST MEDICAL HISTORY: PAST MEDICAL HISTORY Diagnosis Date Chronic kidney disease, stage III (moderate) (HCC) DDD (degenerative disc disease), cervical Dr Navjot History of COVID-19 07/12/202106/2021 MTHFR mutation Osteoarthritis PAST SURGICAL HISTORY: PAST SURGICAL HISTORY Procedure Laterality Date DELIVERY ONLY 1984 , low transverse FAMILY HISTORY: FAMILY HISTORY Problem Relation Age of Onset Breast Cancer Mother 74 Heart Brother Diabetes Paternal Grandmother All histories reviewed on this date 01/19/2022: Yes REVIEW OF SYSTEMS: CONSTITUTIONAL: Patient reports no recent fever or weight loss EYES: Negative for redness, blurry vision, double vision or loss of vision EAR, NOSE AND THROAT: DENIES HAVING: Dysphagia CARDIOVASCULAR: Negative for chest pain. RESPIRATORY: Negative for cough, hemoptysis, wheezing, COPD, dyspnea or shortness of breath GI: No nausea, vomiting, or diarrhea MUSCULOSKELETAL: denies back pain or muscular weakness SKIN: Negative for lesions, rash, and itching PSYCH: Negative for sleep disturbance, mood disorder and recent psychosocial stressors. HEMATOLOGY/LYMPHOLOGY Negative for prolonged bleeding, bruising easily or swollen nodes ENDOCRINE: Negative for cold or heat intolerance, polyuria, polydipsia and goiter All other systems reviewed and are negative other than HPI. PHYSICAL EXAM: constitutional: appears healthy in no acute distress cardiovascular: normal femoral pulses to palpate respiratory: normal respiratory motion gi: abdomen soft, non-tender without masses, hernia or organomegaly gu: bladder: not palpable, no tenderness. urethra, normal, no leakage with cough atrophic genital tissues no cystocele or rectocele skin: no rashes or bruises noted. Extremities: Extremities normal. No deformities, edema, or skin discoloration. Good capillary refill. Neuro: Gait normal. Sensation grossly intact. RADIOLOGY REPORTS REVIEWED: Yes LAB RESULTS REVIEWED: Yes IMAGING STUDIES INDEPENDENTLY REVIEWED: Yes OLD RECORDS REVIEWED: Yes: Extensive: No ASSESSMENT/PLAN: ASSESSMENT/PLAN: 1. Urine retention - ICD9: 788.20, ICD10: R33.9 (primary diagnosis) -PVR 131 cc today, 0 cc at last office visit -suprapubic discomfort/cramping, intermittent -renal us and ct reviewed -cystoscopy -ua micro negative for >3RBC/HPF - CYSTO.PANENDO 2. Dyspareunia in female - ICD9: 625.0, ICD10: N94.10 - ESTRADIOL 0.01% (0.1 MG/GRAM) VAGINAL CREAM 3. Senile (atrophic) vaginitis - ICD9: 627.3, ICD10: N95.2 - CYSTO.PANENDO - ESTRADIOL 0.01% (0.1 MG/GRAM) VAGINAL CREAM Patient is instructed to schedule a follow up for cystoscopy Halie Terrazas APRN.WILFREDO documented in this encounter[facility]len[facility]04-20-2022 Nurse Note* Bravo Bah Ma - 01/19/2022 9:51 AM EDT 130 mL of urine in the bladder after voiding documented in this encounterGlenbeigh Hospital04-14-2022 Miscellaneous Notes* Telephone Encounter - Halie Terrazas APRN.CNP - 01/13/2022 3:25 PM EDT Please extend the patients appt. next week into the next established slot. I will need 40 minutes with her. Thank you documented in this encounterGlenbeigh Hospital04-14-2022 Miscellaneous Notes* Telephone Encounter - Daylin Booker LPN - 01/13/2022 2:20 PM EDT Please see mychart message documented in this encounterGlenbeigh Hospital04-14-2022 History of Present illness Narrative* Rsoie Luna MD - 01/13/2022 7:27 AM EDT Terri Villar 1955 REFERRING PHYSICIAN: Bridget De Luna MD CHIEF COMPLAINT: Consult (Gallbladder/ Abdominal Pain) HPI: The patient is a 66 year old female presents with findings of cholelithiasis. She denies abdominal pain at present. She presented to [facility] on 01/10/2022 with epigastric abdominal pain and nausea. A CT scan revealed cholelithiasis and also small lesions noted in pancreas. By MRI, she was found to have IPMN, largest being 12mm. She denies icterus or jaundice. She denies nausea/emesis. She denies fevers. Patient also notes that she has acid reflux and has not had a screening colonoscopy. She has no family history of colon cancer. She is interested in upper and lower endoscopy however, she does not have health insurance at this point in time, but will be able to have it later this year. PAST MEDICAL HISTORY Diagnosis Date Chronic kidney disease, stage III (moderate) (HCC) DDD (degenerative disc disease), cervical Dr Navjot History of COVID-19 07/12/202106/2021 MTHFR mutation Osteoarthritis PAST SURGICAL HISTORY Procedure Laterality Date DELIVERY ONLY 1984 , low transverse Current Outpatient Medications Medication Sig fosfomycin (MONUROL) 3 g pack Take 1 Packet by mouth every 72 hours. sertraline (ZOLOFT) 50 mg tablet Take 1/2 tab once a day orally for one week then 1 tab once a day ondansetron orally disintegrating (ZOFRAN ODT) 4 mg disintegrating tablet Take 1 tablet by mouth every 6 hours as needed for nausea/vomiting. famotidine (PEPCID) 20 mg tablet Take 1 tablet by mouth twice daily. lisinopril (ZESTRIL, PRINIVIL) 40 mg tablet Take 1 tablet by mouth once daily. atorvastatin (LIPITOR) 10 mg tablet Take 1 tablet by mouth daily at bedtime. For cholesterol. acetaminophen (TYLENOL ARTHRITIS ORAL) Take by mouth. Multivitamin capsule Take 1 capsule by mouth once daily. ALLERGIES: Amoxicillin, Asa [Salicylates], Codeine, Cortizone-10 [Hydrocortisone], Cymbalta [Duloxetine], Dolibid [Other], Duricef [Cefadroxil], Dye, Entex La [Phenylephrine-Guaifenesin], Erythromycin, Flu Vac 2015 (65 Up)- Mf59c(Pf), Keflex [Cephalexin], Levaquin [Levofloxacin], Macrobid [Nitrofuran toin Monohyd/M-Cryst], Mobic [Meloxicam], Morphine, Penicillins, Prednisolone, Prilosec [Omeprazole], Septra [Sulfamethoxazole-Trimethoprim], Sulfa (Sulfonamide Antibiotics), and Tetracycline PERSONAL HISTORY: Social History Tobacco Use Smoking status: Former Smoker Smokeless tobacco: Never Used Substance Use Topics Alcohol use: No Drug use: No FAMILY HISTORY Problem Relation Age of Onset Breast Cancer Mother 74 Heart Brother Diabetes Paternal Grandmother The review of systems data was entered by the nurse and reviewed by ct Nursing Notes: Nithya Hill 01/12/2022 2:49 PM Signed REVIEW OF SYSTEMS: General: The patient denies fatigue, denies weight loss, denies weight gain, denies feeling hot, and denies feelings of cold. Eyes: The patient denies glaucoma, denies eye injury/surgery, does not wear glasses or contacts. Ear/Nose/Throat: The patient denies allergies, denies hayfever, denies ear infections, and denies bloody noses. Cardiovascular: The patient denies chest pain, denies heart disease, NOTES high blood pressure,denies cardiac stent, denies prior heart attack, denies irregular heart beat, NOTES high cholesterol, denies poor circulation, denies heart failure, other cardiac issues, denies claudication, denies cold feet, denies peripheral arterial stent. Respiratory: The patient denies tuberculosis, denies pneumonia, denies frequent cough, denies pulmonary embolism, denies shortness of breath, and denies coughing up blood. Gastrointestinal: The patient denies difficulty swallowing, NOTES acid reflux, denies ulcers, denies vomiting, denies jaundice/hepatitis, denies gallbladder problems, denies black or tarry stools, denies hemorrhoids, denies bleeding from rectum, denies diverticulitis, denies constipation, denies diarrhea, denies loss of stool control, and denies hernias. Kidney/Bladder: The patient denies kidney stones,NOTES Kidney Disease denies urine infections, and denies bloody urine. Skin: The patient denies a history of skin cancer, denies bleeding/changing moles, and denies a history of skin rash. Neurologic: The patient denies a history of epilepsy/convulsions, denies headaches, denies head/spinal injuries, and denies stroke/TIA. Psychiatric: The patient denies psychiatric medications, denies depression, and denies voices, denies substance abuse. Endocrine: The patient denies thyroid disorders, denies diabetes, and denies hormonal problems. Hematologic: The patient denies a history of bruising, denies bleeding, and denies anemia, denies blood clots. Infections: The patient NOTES a history of measles and mumps, denies rheumatic fever, and denies sexually transmitted diseases. Musculoskeletal: The patient NOTES back pain/injury, NOTES back problems, denies sciatica, NOTES knee/foot trouble, NOTES arthritis, or denies gout. When was patient's last Mammogram screening? 10/12/2021 Last Colonoscopy: None Nithya Hill PHYSICAL EXAMINATION: General: The patient is 66 year old female, well nourished, well hydrated in no acute distress. Thepatient is oriented to time, place, and person. VITALS: Blood pressure 137/83, pulse 96, temperature 36.8 C (98.2 F), height 162.6 cm (5' 4), weight 54.9 kg (121 lb), SpO2 97 %. Body mass index is 20.77 kg/m . Head: Normal cephalic, atraumatic Eyes: pupils are equally round, sclera are clear/anicteric Neck is supple with no tracheal deviation Respiratory: Normal respiratory excursion and pattern. Abdominal exam: benign Extremities: no clubbing, cyanosis or edema. Neuro: non focal Psych: normal mood Assessment IMPRESSION: cholelithiasis - asymptomatic, acid reflux, screening for colon cancer PLAN: I have discussed the above with the patient. I have offered laparoscopic cholecystectomy for cholelithiasis. I have explained the procedure to the patient. I have counseled the patient as to the risks of the procedure, including but not limited to: infection, bleeding, injury to any blood vessels/nerves, scar tissue, injury to any intrabdominal organs, injury to bowel/bladder, injury to the common bile duct/biliary tree, bile leakage, intraabdominal abscess/bleeding, hernias at incisional sites, wound infections, complications of anesthesia, etc. the patient understands. I have offered upper and lower endoscopy for evaluation of acid reflux and screening for colon cancer. I have counseled the patient as to the risks of the procedure, including but not limited to: infection, bleeding, injury to any intrabdominal organs such as liver/spleen, perforation of the GI tract,inability to complete the procedure, complications of anesthesia, etc. the patient understands. The patient does not want to undergo any procedures at this point in time. She is awaiting to get health insurance and this is in the near future. She will return to this office for when she is readyto schedule for any of the above procedures. I have answered all questions to the patient s satisfaction and the patient has no further questions. I have confirmed and edited as necessary, the PFS and ROS obtained by others. Consultation requested by Dr. De Luna for an opinion regarding patient's cholelithiasis, acid reflux and screening for colon cancer. My final recommendations will be communicated back to the requesting physician by way of shared Medical record or letter to requesting physician via US mail. . Diagnoses: (K80.20) Calculus of gallbladder without cholecystitis without obstruction (primary encounter diagnosis) (K21.9) Gastroesophageal reflux disease, unspecified whether esophagitis present (Z12.11) Screening for colon cancer Return to Clinic: The patient is instructed to follow-up with me as above. Medical Decision Making: Problems: Low: Stable chronic illness Data: Unique test result(s) reviewed: 1 Medical Decision Making Level: 2 - Straightforward Rosie Luna MD documented in this encounterGlenbeigh Hospital04-13-2022 Nurse Note* Nithya Hill - 01/12/2022 2:44 PM EDT REVIEW OF SYSTEMS: General: The patient denies fatigue, denies weight loss, denies weight gain, denies feeling hot, and denies feelings of cold. Eyes: The patient denies glaucoma, denies eye injury/surgery, does not wear glasses or contacts. Ear/Nose/Throat: The patient denies allergies, denies hayfever, denies ear infections, and denies bloody noses. Cardiovascular: The patient denies chest pain, denies heart disease, NOTES high blood pressure,denies cardiac stent, denies prior heart attack, denies irregular heart beat, NOTES high cholesterol, denies poor circulation, denies heart failure, other cardiac issues, denies claudication, denies cold feet, denies peripheral arterial stent. Respiratory: The patient denies tuberculosis, denies pneumonia, denies frequent cough, denies pulmonary embolism, denies shortness of breath, and denies coughing up blood. Gastrointestinal: The patient denies difficulty swallowing, NOTES acid reflux, denies ulcers, denies vomiting, denies jaundice/hepatitis, denies gallbladder problems, denies black or tarry stools, denies hemorrhoids, denies bleeding from rectum, denies diverticulitis, denies constipation, denies diarrhea, denies loss of stool control, and denies hernias. Kidney/Bladder: The patient denies kidney stones,NOTES Kidney Disease denies urine infections, and denies bloody urine. Skin: The patient denies a history of skin cancer, denies bleeding/changing moles, and denies a history of skin rash. Neurologic: The patient denies a history of epilepsy/convulsions, denies headaches, denies head/spinal injuries, and denies stroke/TIA. Psychiatric: The patient denies psychiatric medications, denies depression, and denies voices, denies substance abuse. Endocrine: The patient denies thyroid disorders, denies diabetes, and denies hormonal problems. Hematologic: The patient denies a history of bruising, denies bleeding, and denies anemia, denies blood clots. Infections: The patient NOTES a history of measles and mumps, denies rheumatic fever, and denies sexually transmitted diseases. Musculoskeletal: The patient NOTES back pain/injury, NOTES back problems, denies sciatica, NOTES knee/foot trouble, NOTES arthritis, or denies gout. When was patient's last Mammogram screening? 10/12/2021 Last Colonoscopy: None Nithya Hill documented in this encounterGlenbeigh Hospital04-11-2022 Miscellaneous Notes* Telephone Encounter - Tika Zee - 01/10/2022 2:38 PM EDT I got patient scheduled with Dr Luna for 01/12 * Telephone Encounter - BRANDIE Rubio - 01/10/2022 1:31 PM EDT Pt is scheduled to see Halie galo Graciela on 01/18 for urology. When we schedule for general surgery, it pulls up gastro based off of her symptoms/diagonis. Lisette Prieto's first available is March 08. BRANDIE Rubio January 10, 2022 1:33 PM * Telephone Encounter - Bridget De Luna MD - 01/10/2022 8:46 AM EDT Patient has been in [facility] multiple times, urgent care and here for same complaints in the last weeks again. We need to get her into urology and lets see if general surgery can see her, She also has been moving appts further out into the summer, I want her seen and getting work up SOON. Will likely need at least egd and colonoscopy and might need cystoscopy. documented in this encounterGlenbeigh Hospital04-10-2022 History of Present illness Narrative* Nae Gould MD - 01/09/2022 8:53 AM EDT Patient presents with: UTI: burning and frequency x1day HPI: Symptoms started at midnight. Dysuria: Yes Frequency: Yes Hematuria: No Nausea: No Fever or chills: No Back pain: baseline Abdominal pain: No Prior UTI: 1 out of 14 cultures of the last 3 years has had significant bacterial growth. Personal history of kidney stones: Yes PAST MEDICAL HISTORY Diagnosis Date DDD (degenerative disc disease), cervical Dr Navjot History of COVID-19 07/12/202106/2021 MTHFR mutation Osteoarthritis PAST SURGICAL HISTORY Procedure Laterality Date DELIVERY ONLY 1984 , low transverse MEDICATIONS: Current Outpatient Medications Medication Sig ondansetron orally disintegrating (ZOFRAN ODT) 4 mg disintegrating tablet Take 1 tablet by mouth every 6 hours as needed for nausea/vomiting. famotidine (PEPCID) 20 mg tablet Take 1 tablet by mouth twice daily. lisinopril (ZESTRIL, PRINIVIL) 40 mg tablet Take 1 tablet by mouth once daily. atorvastatin (LIPITOR) 10 mg tablet Take 1 tablet by mouth daily at bedtime. For cholesterol. acetaminophen (TYLENOL ARTHRITIS ORAL) Take by mouth. Multivitamin capsule Take 1 capsule by mouth once daily. fosfomycin (MONUROL) 3 g pack Take 1 Packet by mouth every 72 hours. sertraline (ZOLOFT) 50 mg tablet Take 1/2 tab once a day orally for one week then 1 tab once a day Current Facility-Administered Medications Medication Dose Route Frequency perflutren lipid microspheres 1.3 mL in NaCl (PF) 0.9% 10 mL injection (DEFINITY) INTRAVENOUS DIRECTED PRN sodium chloride 0.9 % (flush) 10 mL (BD POSIFLUSH) 10 mL INTRAVENOUS DIRECTED PRN ALLERGIES: ALLERGIES Allergen Reactions Amoxicillin Itching Asa [Salicylates] Itching Codeine Itching Cortizone-10 [[place]* Itching Cymbalta [Duloxetin* Intolerance One pill: bruning all over Dolibid [Other] Itching Duricef [Cefadroxil] Itching Dye Shortness of Breath Ct dye. Including rash Entex La [Phenyleph* Itching Erythromycin Itching Flu Vac 2014 (65 Up* Shortness of Breath Keflex [Cephalexin] Itching Levaquin [Levofloxa* Other: See Comments itching Macrobid [Nitrofura* Other: See Comments Fast heart rate Mobic [Meloxicam] Itching Morphine Itching Penicillins Hives Prednisolone Other: See Comments Elevated blood pressure. Prilosec [Omeprazol* Itching Septra [Sulfamethox* Hives Sulfa (Sulfonamide * Hives Tetracycline Hives Can take doxycycline VITALS: BP 112/80 Pulse 79 Temp 36.6 C (97.9 F) Resp 16 Wt 55.4 kg (122 lb 3.2 oz) SpO2 98% BMI20.61 kg/m PHYSICAL EXAM: GEN: NAD HEENT: EOMI, conjunctiva clear, moist mucous membranes HEART: regular rate and rhythm, no murmurs LUNGS: clear to auscultation, no wheezes or crackles, no increased WOB ABDOMEN: Soft, nondistended, no masses, no suprapubic tenderness BACK: No CVA tenderness Component Latest Ref Rng & Units 10/15/2021 10/23/2021 10/29/2021 11/05/2021 01/09/2022 GLUCOSE UA (POCT) Negative mg/dL Negative Negative Negative Negative Negative BILIRUBIN UA (POCT) Negative Negative Negative Negative Negative Negative KETONE UA (POCT) Negative mg/dL Negative Negative Negative Negative Negative SPECIFIC GRAVITY UA (POCT) 1.005 - 1.030 1.010 1.010 1.010 1.015 1.010 HEMOGLOBIN/BLOOD UA (POCT) Negative Trace-intact (A) Trace-lysed (A) Trace- intact (A) Trace-lysed (A) Small (A) PH UA (POCT) 4.5 - 8.0 7.0 7.0 7.0 7.0 7.5 PROTEIN UA (POCT) Negative mg/dL Negative Negative Negative Negative Negative UROBILINOGEN UA (POCT) Normal E.U./dL 0.2 0.2 0.2 0.2 0.2 NITRITE UA (POCT) Negative Negative Negative Negative Negative Negative LEUKOCYTES UA (POCT) Negative Trace (A) Negative Trace (A) Negative Negative COLOR UA (POCT) Yellow Yellow Light yellow Yellow Yellow CLARITY UA (POCT) Clear Clear Clear Clear Clear Component Culture Latest Ref Rng & Units 11/03/2020 <10,000 CFU/ml . . . 12/14/2020 <10,000 CFU/ml . . . 01/30/2021 8:53 AM <10,000 CFU/ml (A) . . . 01/30/2021 8:53 AM <10,000 CFU/ml . . . 03/19/2021 No growth (<1,000 CFU/ml) 05/11/2021 10,000 - <50,000 CFU/ml . . . 06/25/2021 11:45 AM 10,000 - <50,000 CFU/ml (A) . . . 06/25/2021 11:45 AM <10,000 CFU/ml . . . 07/04/2021 No growth (<1,000 CFU/ml) 07/21/2021 7:46 AM 10,000 - <50,000 CFU/ml (A) . . . 07/21/2021 7:46 AM 10,000 - <50,000 CFU/ml . . . 08/31/2021 No growth (<1,000 CFU/ml) 10/06/2021 No growth (<1,000 CFU/ml) 10/23/2021 <10,000 CFU/ml . . . 10/29/2021 <10,000 CFU/ml . . . ASSESSMENT/PLAN: 1. Urination frequency - ICD9: 788.41, ICD10: R35.0 (primary diagnosis) 2. Microscopic hematuria - ICD9: 599.72, ICD10: R31.29 - UA positive for hematuria which occurs at baseline. No other signs of infection. - UA DIP, URINE (POC) Consider interstitial cystitis, post-menopausal changes, or renal calculi. Keep follow up with urologist this summer. Schedule sooner if current flare of symptoms persist. Nae Gould MD documented in this encounterGlenbeigh Hospital04-05-2022 Nurse Note* Haleigh Tate Ma - 01/04/2022 8:45 AM EDT Spoke to Terri Villar, confirmed patient is registered on [employer] and is prepared for their appointment. Confirmed the patient will update medications, allergies, and questionnaires via [employer]. Informed patient if there is an issue with the connection, provider will send the patient a secure link. If provider is running late, patient should remain connected to the visit. Patient verbalized understanding. * Haleigh Tate Ma - 01/04/2022 8:45 AM EDT Not able to reach patient. I called twice left call return number. Left a message on spouses phone with ca;ll back number. * Haleigh Tate Ma - 01/03/2022 2:24 PM EDT Spoke to Terri Villar, confirmed patient is registered on [employer] and is prepared for their appointment. Confirmed the patient has updated medications, allergies, and questionnaires via [employer]. Informed patient if there is an issue with the connection, provider will send the patient a secure link. If provider is running late, patient should remain connected to the visit. Patient verbalized understanding. * Haleigh Tate Ma - 01/03/2022 2:23 PM EDT What is the reason for your visit today? consult Who is your referring physician? Are you having poor oral intake? NO Have you had unintentional weight loss of 15 lbs/7 Kg in the last 3-6 months? NO Bowels: regular Wound: clean & dry Temperature: No Drains: No documented in this encounterGlenbeigh Hospital04-05-2022 History of Present illness Narrative* R Rick Stoll MD - 01/04/2022 8:39 AM EDT virtual visit of 20 min duration Pancreatic Cyst H&P Initial PATIENT NAME: Terri Villar DATE of SERVICE: 01/04/2022 TIME of SERVICE: 8:58 AM PCP: Bridget De Luna MD REFERRED BY: Lisette Mccurdy Consultation requested by Lisette Schreiber, FIELD MECHANIC.WASH WORKER for an opinion regarding incidental pancreatic uncinate cyst. My final recommendations will be communicated back to the requesting physician by wayof shared Medical record or letter to requesting physician via US mail. HPI Terri Villar is a 66 year old years old, female who presents with pancreatic cysts . Cysts were incidentally discovered during workup for: Abdominal process: Abdominal symptoms that led to cyst discovery include: abdominal pain- epigastric . WORK UP 1. No normal scan. 2. First detected: CT: 11/16/2021 LOCATION: Head: Yes, largest size: 12 mm. Total number of cysts: 2 Body/Tail: Yes, largest size: 3 mm. Total number of cysts: 2 SEPTATIONS : No THICK WALLED : No CENTRAL CALCIFICATIONS: No PERIPHERAL CALCIFICATIONS : No MASS COMPONENT: No MURAL NODULE: No COMMUNICATION WITH MPD: Yes MPD: Head: <5 mm Body/Tail: <5 mm Outside Imaging: NO 3. Current image findings: MRI: 12/01/2021 LOCATION: Head: Yes, largest size: 12 mm. Total number of cysts: 2 Body/Tail: Yes, largest size: 3 mm. Total number of cysts: 1 SEPTATIONS : No THICK WALLED : No CENTRAL CALCIFICATIONS: No PERIPHERAL CALCIFICATIONS : No MASS COMPONENT: No MURAL NODULE: No COMMUNICATION WITH MPD: Yes MPD: Head: <5 mm Body/Tail: <5 mm Outside Imaging: NO EUS No Serum Labs No results found for: CEA No results found for: CA199 No results found for: CHROMOA Glucose (mg/dL) Date Value 10/25/2021 103 07/07/2021 97 07/02/2021 92 PANCREATIC POLYPEPTIDE: Not Done GASTRIN: Not Done PAST MEDICAL HISTORY Active Ambulatory Problems Osteoarthritis HTN (hypertension) Date Noted: 04/05/2017 MTHFR mutation DDD (degenerative disc disease), cervical Mixed hyperlipidemia Date Noted: 04/05/2017 Thyroid nodule Date Noted: 09/26/2017 GERD without esophagitis Date Noted: 06/28/2019 Anxiety Date Noted: 06/28/2019 History of COVID-19 Date Noted: 07/12/2021 Gallstones Date Noted: 11/16/2021 Lung nodule Date Noted: 11/16/2021 Resolved Ambulatory Problems Routine General Medical Examination at a Health Care Facility Date Noted: 11/10/2008 Past Medical History:No Additional Past Medical History Pancreatitis: no Colon Cancer: no PAST SURGICAL HISTORY PAST SURGICAL HISTORY Procedure Laterality Date DELIVERY ONLY 1984 , low transverse SOCIAL HISTORY Social History Tobacco Use Smoking status: Former Smoker Smokeless tobacco: Never Used Substance Use Topics Alcohol use: No Drug use: No Current tobacco use? NO Current alcohol use? NO FAMILY HISTORY FAMILY HISTORY Problem Relation Age of Onset Breast Cancer Mother 74 Heart Brother Diabetes Paternal Grandmother Pancreatitis: no Pancreatic Cancer: no MEN: no Colon Cancer: no REVIEW OF SYSTEMS PAIN ASSESSMENT: Negative for pain, history of chronic pain, or current treatment for a chronic pain condition. she has epigastric pain treated with PPI Assessment Terri Villar is a 66 year old female who presents with Side branch IPMN. Predominant in uncinate,otherwise tiny in head/body PLAN I reviewed MRI and blood work results in detail with Terri Villar and the recommendation to repeat MRI one year with contrast, future orders placed in [facility]. I discussed pancreatic cysts in detail, and the potential need to continue to follow this process with surveillance imaging to rule out any growth of change of the cyst(s)/pancreatic duct/pancreas. The majority of the visit was spent counseling, teaching and/or coordinating care for the patient. [id number] time was 20 minutes. Asia Stoll MD 8:58 AM 01/04/2022 documented in this encounterGlenbeigh Hospital04-04-2022 Instructions* Patient Instructions* Herlinda Jett APRN.CNP - 01/03/2022 2:08 PM EDT 1. Follow-up with Dr. Stoll tomorrow, as scheduled. 2. Follow-up with uro-nurse obgyn in April, as planned. 3. Await final results from urine culture. Continue doxycycline, as ordered by ER. 4. Decrease the coffee intake. 5. Let us know if no better or any worsening. documented in this encounterGlenbeigh Hospital04-04-2022 History of Present illness Narrative* Herlinda Jett APRN.CNP - 01/03/2022 1:59 PM EDT This is a 66 year old female who presents today with: Patient presents with: ER F/U: ER follow up- UTI?; started on atb; complains of upper back pain HISTORY OF PRESENT ILLNESS: Terri Villar is a 66 year old female. Patient presents with: ER F/U: ER follow up- UTI?; started on atb; complains of upper back pain Pt presents today for ER follow-up. She was at [facility] early this morning with complaints of UTI symptoms. She complained of some suprapubic abdominal pain along with some burning with urination. Reported urinary frequency, but but denied any hematuria. Reports that her symptoms started around midnight last night. No fever. She denies any diarrhea or constipation. No hematochezia or melena. They dipped her urine which was only positive for some microscopic blood. She was started on doxycycline while the urine culture is in progress. She does have an appoint with Dr. Stoll tomorrow for IPMN and gallstones. Has appt with uro-nurse obgyn in April. This is the first appt w/ uro nurse obgyn. She has been following with urology. Drinks 64 ounces of water day. Drinks 6 cups or more of coffee daily. One 8 ounce cup of cranberry juice. PAST MEDICAL HISTORY: PAST MEDICAL HISTORY Diagnosis Date DDD (degenerative disc disease), cervical Dr Knapic History of COVID-19 07/12/202106/2021 MTHFR mutation Osteoarthritis PAST SURGICAL HISTORY Procedure Laterality Date DELIVERY ONLY 1984 , low transverse ALLERGIES Amoxicillin, Asa [Salicylates], Codeine, Cortizone-10 [Hydrocortisone], Cymbalta [Duloxetine], Dolibid [Other], Duricef [Cefadroxil], Dye, Entex La [Phenylephrine-Guaifenesin], Erythromycin, Flu Vac 2014 (65 Up)- Mf59c(Pf), Keflex [Cephalexin], Levaquin [Levofloxacin], Macrobid [Nitrofurant oin Monohyd/M-Cryst], Mobic [Meloxicam], Morphine, Penicillins, Prednisolone, Prilosec [Omeprazole], Septra [Sulfamethoxazole-Trimethoprim], Sulfa (Sulfonamide Antibiotics), and Tetracycline MEDICATIONS Current Outpatient Medications Medication Sig sertraline (ZOLOFT) 50 mg tablet Take 1/2 tab once a day orally for one week then 1 tab once a day ondansetron orally disintegrating (ZOFRAN ODT) 4 mg disintegrating tablet Take 1 tablet by mouth every 6 hours as needed for nausea/vomiting. famotidine (PEPCID) 20 mg tablet Take 1 tablet by mouth twice daily. lisinopril (ZESTRIL, PRINIVIL) 40 mg tablet Take 1 tablet by mouth once daily. atorvastatin (LIPITOR) 10 mg tablet Take 1 tablet by mouth daily at bedtime. For cholesterol. acetaminophen (TYLENOL ARTHRITIS ORAL) Take by mouth. Multivitamin capsule Take 1 capsule by mouth once daily. Current Facility-Administered Medications Medication Dose Route Frequency perflutren lipid microspheres 1.3 mL in NaCl (PF) 0.9% 10 mL injection (DEFINITY) INTRAVENOUS DIRECTED PRN sodium chloride 0.9 % (flush) 10 mL (BD POSIFLUSH) 10 mL INTRAVENOUS DIRECTED PRN FAMILY HISTORY Problem Relation Age of Onset Breast Cancer Mother 74 Heart Brother Diabetes Paternal Grandmother Social History Tobacco Use Smoking status: Former Smoker Smokeless tobacco: Never Used Substance Use Topics Alcohol use: No Drug use: No EXAM: BP 122/82 Pulse 78 Resp 18 SpO2 98% PHYSICAL EXAM: General Appearance: Well appearing, alert, in no acute distress, well-hydrated, well nourished.. Skin: Skin color, texture, turgor normal, no suspicious rashes or lesions. Head: Normocephalic, no masses, lesions, tenderness or abnormalities. Eyes: Anicteric sclera. Pupils are equally round and reactive to light. Extraocular movements are intact. . Lungs: Lungs clear to auscultation. No wheezing, rhonchi, rales.. Heart: RRR without murmur, gallop, or rubs. No ectopy. Abdomen: Abdomen soft, non-tender. Bowel sounds normal. No masses, organomegaly, Negative CVA tenderness. Extremities: No deformities, edema, skin discoloration, clubbing or cyanosis. Good capillary refill. . Neurologic: Gait normal. ASSESSMENT/PLAN: 1. Dysuria - ICD9: 788.1, ICD10: R30.0 Culture is not back yet. Continue the doxycycline until culture is back. She is also encouraged to limit coffee, as well as other bladder irritants. She has been following with urology and she has appointment with uro-Back End Web Developer scheduled. Discussed treatment plan and patient voices understanding. Patient's questions answered appropriately. Medications and potential side effects were discussed and patient voices understanding. Return to the office as scheduled or as needed for worsening/no improvement. Herlinda Jett [email or web address] This note was partially generated using [employer] voice recognition system. Note was reviewed for accuracy. There may be minor misspellings or grammar miscues with [employer] voice recognition. documented in this encounterG[facility] History of Present illness Narrative* Paige Marino RT(R) - 12/04/2021 10:10 AM EST Radiology Service Progress Note PATIENT NAME: Terri Villar DATE OF SERVICE: December 04, 2021 TIME: 10:10 AM PATIENT IDENTITY VERIFICATION COMPLETED USING TWO (2) IDENTIFIERS: Name and Date of confirmedby patient verbally. FALL SCREENING: Has the patient had 2 falls in the last year or 1 fall with injury or currently using an Ambulatory Assistive Device (Walker, Cane, Wheelchair, Crutches, etc.)? No PATIENT GENDER DATA: Female. status: : No status: NO. PATIENT RELEVANT IMPLANT DATA REVIEWED: Yes RADIOLOGY DEPARTMENT: General X-ray: Exam(s) Completed: Chest X-Ray PERIPHERAL IV DATA: Not applicable SIGNED BY: RT Miguel(R) December 04, 2021 10:10 AM documented in this encounterGlen[facility]02-04-2022 History of Present illness Narrative* Haleigh Oliver RT(R) - 11/05/2021 2:40 PM EST Radiology Service Progress Note PATIENT NAME: Terri Villar DATE OF SERVICE: November 05, 2021 TIME: 2:38 PM PATIENT IDENTITY VERIFICATION COMPLETED USING TWO (2) IDENTIFIERS: Name and Date of confirmedby patient verbally. FALL SCREENING: Has the patient had 2 falls in the last year or 1 fall with injury or currently using an Ambulatory Assistive Device (Walker, Cane, Wheelchair, Crutches, etc.)? No PATIENT GENDER DATA: Female. status: : No status: NO. PATIENT RELEVANT IMPLANT DATA REVIEWED: Not Applicable RADIOLOGY DEPARTMENT: General X-ray: Exam(s) Completed: Spine X-Ray(s): Lumbar AP / LAT / L5-S1 PERIPHERAL IV DATA: Not applicable SIGNED BY: RT Russell(R) November 05, 2021 2:38 PM documented in this encounterGlen[facility]01-26-2022 History of Present illness Narrative* Paige Marino RT(R) - 10/27/2021 10:00 AM EST Radiology Service Progress Note PATIENT NAME: Terri Villar DATE OF SERVICE: October 27, 2021 TIME: 10:45 AM PATIENT IDENTITY VERIFICATION COMPLETED USING TWO (2) IDENTIFIERS: Name and Date of confirmedby patient verbally. FALL SCREENING: Has the patient had 2 falls in the last year or 1 fall with injury or currently using an Ambulatory Assistive Device (Walker, Cane, Wheelchair, Crutches, etc.)? No PATIENT GENDER DATA: Female. status: : No status: NO. PATIENT RELEVANT IMPLANT DATA REVIEWED: Yes RADIOLOGY DEPARTMENT: General X-ray: Exam(s) Completed: Upper Extremity X- Ray(s): Scapula, right PERIPHERAL IV DATA: Not applicable SIGNED BY: RT Miguel(R) October 27, 2021 10:45 AM documented in this encounterGlen[facility]01-12-2022 History of Present illness Narrative* Paige Marino RT(R) - 10/13/2021 10:00 AM EST Radiology Service Progress Note PATIENT NAME: Terri Villar DATE OF SERVICE: October 13, 2021 TIME: 10:01 AM PATIENT IDENTITY VERIFICATION COMPLETED USING TWO (2) IDENTIFIERS: Name and Date of confirmedby patient verbally. FALL SCREENING: Has the patient had 2 falls in the last year or 1 fall with injury or currently using an Ambulatory Assistive Device (Walker, Cane, Wheelchair, Crutches, etc.)? No PATIENT GENDER DATA: Female. status: : No status: NO. PATIENT RELEVANT IMPLANT DATA REVIEWED: Yes RADIOLOGY DEPARTMENT: General X-ray: Exam(s) Completed: Rib X-Ray: Right Lower Extremity X-Ray(s): Knee, AP / Lat / Tunne / Merchant Right and Wt. Bearing PERIPHERAL IV DATA: Not applicable SIGNED BY: RT Miguel(R) October 13, 2021 10:01 AM documented in this encounterGlen[facility]10-11-[facility]21 History of Past illness Narrative* Problem Noted Date Diagnosed Date Resolved Date History of COVID-19 07/12/2021 01/31/20 Overview: 06/2021 Routine General Medical Exam ination at a [facility] 11/10/2008 05/15/2014 documented as of this encounter (statuses as of 08/06/2023) [facility] of Present illness Narrative* Paige Marino RT(R) - 07/12/2021 12:20 PM EDT RADIOLOGY SERVICE PROGRESS NOTE DATE OF SERVICE: July 12, 2021 TIME OF SERVICE: 12:59 pm EVENT: EXAM/PROCEDURE NOT COMPLETED - Patient left prior to getting x-ray completed ADDITIONAL EVENT DETAILS: N/A SIGNATURE: EDMUND Rivera) PATIENT NAME: Terri Villar DATE: July 12, 2021 TIME: 12:59 PM PAGER/CONTACT #: * Paige Marino RT(R) - 07/12/2021 12:20 PM EDT Radiology Service Progress Note PATIENT NAME: Terri Villar DATE OF SERVICE: July 12, 2021 TIME: 1:10 PM PATIENT IDENTITY VERIFICATION COMPLETED USING TWO (2) IDENTIFIERS: Name and Date of confirmedby patient verbally. FALL SCREENING: Has the patient had 2 falls in the last year or 1 fall with injury or currently using an Ambulatory Assistive Device (Walker, Cane, Wheelchair, Crutches, etc.)? No PATIENT GENDER DATA: Female. status: : No status: NO. PATIENT RELEVANT IMPLANT DATA REVIEWED: Yes RADIOLOGY DEPARTMENT: General X-ray: Exam(s) Completed: Rib X-Ray: Bilateral PERIPHERAL IV DATA: Not applicable SIGNED BY: EDMUND Rivera) July 12, 2021 1:10 PM documented in this encounterG[facility]03-02-2021 History of Present illness Narrative* Paige Marino Tech (Rt) - 12/01/2020 8:00 AM EST Radiology Service Progress Note PATIENT NAME: Terri Villar DATE OF SERVICE: December 01, 2020 TIME: 8:09 AM PATIENT IDENTITY VERIFICATION COMPLETED USING TWO (2) IDENTIFIERS: Name and Date of confirmedby patient verbally. FALL SCREENING: Has the patient had 2 falls in the last year or 1 fall with injury or currently using an Ambulatory Assistive Device (Walker, Cane, Wheelchair, Crutches, etc.)? No PATIENT GENDER DATA: Female. status: : No status: NO. PATIENT RELEVANT IMPLANT DATA REVIEWED: Yes RADIOLOGY DEPARTMENT: General X-ray: Exam(s) Completed: Rib X-Ray: Left PERIPHERAL IV DATA: Not applicable SIGNED BY: RT Miguel December 01, 2020 8:09 AM documented in this encounterG[facility]02-[facility] History of Past illness Narrative* Problem Noted Date Resolved Date Routine General Medical Exam ination at a Health Care Facility 11/10/2008 05/15/2014 documented as of this encounter (statuses as of 12/28/2021) [place] [address]-09-2009 History of Past illness Narrative* Problem Noted Date Resolved Date Routine General Medical Exam ination at a Health Care Facility 11/10/2008 05/15/2014 documented as of this encounter (statuses as of 01/04/2022) [address]09-2009 History of Past illness Narrative* Problem Noted Date Resolved Date Routine General Medical Exam ination at a Health Care Facility 11/10/2008 05/15/2014 documented as of this encounter (statuses as of 01/04/2022) [address]09-2009 History of Past illness Narrative* Problem Noted Date Resolved Date Routine General Medical Exam ination at a Health Care Facility 11/10/2008 05/15/2014 documented as of this encounter (statuses as of 01/09/2022) [address]09-2009 History of Past illness Narrative* Problem Noted Date Resolved Date Routine General Medical Exam ination at a Health Care Facility 11/10/2008 05/15/2014 documented as of this encounter (statuses as of 01/10/2022) [place] [address]09-2009 History of Past illness Narrative* Problem Noted Date Resolved Date Routine General Medical Exam ination at a Health Care Facility 11/10/2008 05/15/2014 documented as of this encounter (statuses as of 01/13/2022) [place] [address]09-2009 History of Past illness Narrative* Problem Noted Date Resolved Date Routine General Medical Exam ination at a Health Care Facility 11/10/2008 05/15/2014 documented as of this encounter (statuses as of 01/15/2022) [address]09-2009 History of Past illness Narrative* Problem Noted Date Resolved Date Routine General Medical Exam ination at a Health Care Facility 11/10/2008 05/15/2014 documented as of this encounter (statuses as of 01/19/2022) [facility]arr[facility]* Problem Noted Date Resolved Date Routine General Medical Exam ination at a Health Care Facility 11/10/2008 05/15/2014 documented as of this encounter (statuses as of 01/19/2022) [place] [address]09-2009 History of Past illness Narrative* Problem Noted Date Resolved Date Routine General Medical Exam ination at a [facility] 11/10/2008 05/15/2014 documented as of this encounter (statuses as of 01/26/2022) [place] [address]-09-2009 History of Past illness Narrative* Problem Noted Date Resolved Date Routine General Medical Exam ination at a [facility] 11/10/2008 05/15/2014 documented as of this encounter (statuses as of 01/29/2022) [place] [address]-09-2009 History of Past illness Narrative* Problem Noted Date Resolved Date Routine General Medical Exam ination at a [facility] 11/10/2008 05/15/2014 documented as of this encounter (statuses as of 01/31/2022) [place] [address]09-2009 History of Past illness Narrative* Problem Noted Date Resolved Date Routine General Medical Exam ination at a Health Care Facility 11/10/2008 05/15/2014 documented as of this encounter (statuses as of 02/01/2022) [place] [address]09-2009 History of Past illness Narrative* Problem Noted Date Resolved Date Routine General Medical Exam ination at a Health Care Facility 11/10/2008 05/15/2014 documented as of this encounter (statuses as of 02/02/2022) [place] [address]09-2009 History of Past illness Narrative* Problem Noted Date Resolved Date Routine General Medical Exam ination at a Health Care Facility 11/10/2008 05/15/2014 documented as of this encounter (statuses as of 02/04/2022) [address]09-2009 History of Past illness Narrative* Problem Noted Date Resolved Date Routine General Medical Exam ination at a Health Care Facility 11/10/2008 05/15/2014 documented as of this encounter (statuses as of 02/07/2022) [address]09-2009 History of Past illness Narrative* Problem Noted Date Resolved Date Routine General Medical Exam ination at a Health Care Facility 11/10/2008 05/15/2014 documented as of this encounter (statuses as of 02/10/2022) [address]09-2009 History of Past illness Narrative* Problem Noted Date Resolved Date Routine General Medical Exam ination at a Health Care Facility 11/10/2008 05/15/2014 documented as of this encounter (statuses as of 02/12/2022) [address]09-2009 History of Past illness Narrative* Problem Noted Date Resolved Date Routine General Medical Exam ination at a Health Care Facility 11/10/2008 05/15/2014 documented as of this encounter (statuses as of 02/14/2022) [address]09-2009 History of Past illness Narrative* Problem Noted Date Resolved Date Routine General Medical Exam ination at a Health Care Facility 11/10/2008 05/15/2014 documented as of this encounter (statuses as of 02/14/2022) [facility]* Problem Noted Date Resolved Date Routine General Medical Exam ination at a Health Care Facility 11/10/2008 05/15/2014 documented as of this encounter (statuses as of 02/16/2022) [address]09-2009 History of Past illness Narrative* Problem Noted Date Resolved Date Routine General Medical Exam ination at a Health Care Facility 11/10/2008 05/15/2014 documented as of this encounter (statuses as of 02/18/2022) [address]09-2009 History of Past illness Narrative* Problem Noted Date Resolved Date Routine General Medical Exam ination at a Health Care Facility 11/10/2008 05/15/2014 documented as of this encounter (statuses as of 02/24/2022) [address]09-2009 History of Past illness Narrative* Problem Noted Date Resolved Date Routine General Medical Exam ination at a Health Care Facility 11/10/2008 05/15/2014 documented as of this encounter (statuses as of 02/25/2022) [address]09-2009 History of Past illness Narrative* Problem Noted Date Resolved Date Routine General Medical Exam ination at a Health Care Facility 11/10/2008 05/15/2014 documented as of this encounter (statuses as of 03/01/2022) [address]09-2009 History of Past illness Narrative* Problem Noted Date Resolved Date Routine General Medical Exam ination at a Health Care Facility 11/10/2008 05/15/2014 documented as of this encounter (statuses as of 03/01/2022) [address]09-2009 History of Past illness Narrative* Problem Noted Date Resolved Date Routine General Medical Exam ination at a Health Care Facility 11/10/2008 05/15/2014 documented as of this encounter (statuses as of 03/03/2022) [address]09-2009 History of Past illness Narrative* Problem Noted Date Resolved Date Routine General Medical Exam ination at a Health Care Facility 11/10/2008 05/15/2014 documented as of this encounter (statuses as of 03/11/2022) [place] [address]09-2009 History of Past illness Narrative* Problem Noted Date Resolved Date Routine General Medical Exam ination at a Health Care Facility 11/10/2008 05/15/2014 documented as of this encounter (statuses as of 03/11/2022) [place] [address]09-2009 History of Past illness Narrative* Problem Noted Date Resolved Date Routine General Medical Exam ination at a Health Care Facility 11/10/2008 05/15/2014 documented as of this encounter (statuses as of 03/13/2022) [place] [address]09-2009 History of Past illness Narrative* Problem Noted Date Resolved Date Routine General Medical Exam ination at a Health Care Facility 11/10/2008 05/15/2014 documented as of this encounter (statuses as of 03/14/2022) [place] [address]09-2009 History of Past illness Narrative* Problem Noted Date Resolved Date Routine General Medical Exam ination at a Health Care Facility 11/10/2008 05/15/2014 documented as of this encounter (statuses as of 03/14/2022) [place] [address]09-2009 History of Past illness Narrative* Problem Noted Date Resolved Date Routine General Medical Exam ination at a Health Care Facility 11/10/2008 05/15/2014 documented as of this encounter (statuses as of 03/14/2022) [address]09-2009 History of Past illness Narrative* Problem Noted Date Resolved Date Routine General Medical Exam ination at a Health Care Facility 11/10/2008 05/15/2014 documented as of this encounter (statuses as of 03/18/2022) [address]09-2009 History of Past illness Narrative* Problem Noted Date Resolved Date Routine General Medical Exam ination at a Health Care Facility 11/10/2008 05/15/2014 documented as of this encounter (statuses as of 03/21/2022) [address]09-2009 History of Past illness Narrative* Problem Noted Date Resolved Date Routine General Medical Exam ination at a Health Care Facility 11/10/2008 05/15/2014 documented as of this encounter (statuses as of 03/21/2022) [place] [address]09-2009 History of Past illness Narrative* Problem Noted Date Resolved Date Routine General Medical Exam ination at a [facility] 11/10/2008 05/15/2014 documented as of this encounter (statuses as of 03/22/2022) [place] [address]09-2009 History of Past illness Narrative* Problem Noted Date Resolved Date Routine General Medical Exam ination at a Health Care Facility 11/10/2008 05/15/2014 documented as of this encounter (statuses as of 03/24/2022) [place] [address]-2009 History of Past illness Narrative* Problem Noted Date Resolved Date Routine General Medical Exam ination at a Health Care Facility 11/10/2008 05/15/2014 documented as of this encounter (statuses as of 03/26/2022) [place] [address]09-2009 History of Past illness Narrative* Problem Noted Date Resolved Date Routine General Medical Exam ination at a Health Care Facility 11/10/2008 05/15/2014 documented as of this encounter (statuses as of 04/01/2022) [place] [address]09[address]2009 History of Past illness Narrative* Problem Noted Date Resolved Date Routine General Medical Exam ination at a Health Care Facility 11/10/2008 05/15/2014 documented as of this encounter (statuses as of 04/01/2022) [facility]* Problem Noted Date Resolved Date Routine General Medical Exam ination at a Health Care Facility 11/10/2008 05/15/2014 documented as of this encounter (statuses as of 04/07/2022) [facility]arr[facility]* Problem Noted Date Resolved Date Routine General Medical Exam ination at a [facility] 11/10/2008 05/15/2014 documented as of this encounter (statuses as of 04/07/2022) [facility]arrative* Problem Noted Date Resolved Date Routine General Medical Exam ination at a [facility] 11/10/2008 05/15/2014 documented as of this encounter (statuses as of 04/08/2022) [place] [address]-2009 History of Past illness Narrative* Problem Noted Date Resolved Date Routine General Medical Exam ination at a [facility] 11/10/2008 05/15/2014 documented as of this encounter (statuses as of 04/12/2022) [place] [address]2009 History of Past illness Narrative* Problem Noted Date Resolved Date Routine General Medical Exam ination at a [facility] 11/10/2008 05/15/2014 documented as of this encounter (statuses as of 04/19/2022) [facility]* Problem Noted Date Resolved Date Routine General Medical Exam ination at a [facility] 11/10/2008 05/15/2014 documented as of this encounter (statuses as of 04/20/2022) [facility]* Problem Noted Date Resolved Date Routine General Medical Exam ination at a Health Care Facility 11/10/2008 05/15/2014 documented as of this encounter (statuses as of 04/21/2022) [place] [address]2009 History of Past illness Narrative* Problem Noted Date Resolved Date Routine General Medical Exam ination at a Health Care Facility 11/10/2008 05/15/2014 documented as of this encounter (statuses as of 04/26/2022) [id number] of Past illness Narrative* Problem Noted Date Resolved Date Routine General Medical Exam ination at a Health Care Facility 11/10/2008 05/15/2014 documented as of this encounter (statuses as of 04/26/2022) [facility] [id number] History of Past illness Narrative* Problem Noted Date Resolved Date Routine General Medical Exam ination at a Health Care Facility 11/10/2008 05/15/2014 documented as of this encounter (statuses as of 05/03/2022) [address]09-2009 History of Past illness Narrative* Problem Noted Date Resolved Date Routine General Medical Exam ination at a Health Care Facility 11/10/2008 05/15/2014 documented as of this encounter (statuses as of 05/10/2022) [address]09-2009 History of Past illness Narrative* Problem Noted Date Resolved Date Routine General Medical Exam ination at a Health Care Facility 11/10/2008 05/15/2014 documented as of this encounter (statuses as of 05/13/2022) [address]09-2009 History of Past illness Narrative* Problem Noted Date Resolved Date Routine General Medical Exam ination at a [facility] 11/10/2008 05/15/2014 documented as of this encounter (statuses as of 05/16/2022) [address]09-2009 History of Past illness Narrative* Problem Noted Date Resolved Date Routine General Medical Exam ination at a Health Care Facility 11/10/2008 05/15/2014 documented as of this encounter (statuses as of 05/24/2022) [address]09-2009 History of Past illness Narrative* Problem Noted Date Resolved Date Routine General Medical Exam ination at a [facility] 11/10/2008 05/15/2014 documented as of this encounter (statuses as of 05/27/2022) [address]09-2009 History of Past illness Narrative* Problem Noted Date Resolved Date Routine General Medical Exam ination at a Health Care Facility 11/10/2008 05/15/2014 documented as of this encounter (statuses as of 05/30/2022) [address]09-2009 History of Past illness Narrative* Problem Noted Date Resolved Date Routine General Medical Exam ination at a Health Care Facility 11/10/2008 05/15/2014 documented as of this encounter (statuses as of 06/01/2022) [address] [address] History of Past illness Narrative* Problem Noted Date Resolved Date Routine General Medical Exam ination at a Health Care Facility 11/10/2008 05/15/2014 documented as of this encounter (statuses as of 06/01/2022) [address]-2009 History of Past illness Narrative* Problem Noted Date Resolved Date Routine General Medical Exam ination at a Health Care Facility 11/10/2008 05/15/2014 documented as of this encounter (statuses as of 06/01/2022) [address]2009 History of Past illness Narrative* Problem Noted Date Resolved Date Routine General Medical Exam ination at a Health Care Facility 11/10/2008 05/15/2014 documented as of this encounter (statuses as of 06/07/2022) [address]2009 History of Past illness Narrative* Problem Noted Date Resolved Date Routine General Medical Exam ination at a Health Care Facility 11/10/2008 05/15/2014 documented as of this encounter (statuses as of 06/08/2022) [address]2009 History of Past illness Narrative* Problem Noted Date Resolved Date Routine General Medical Exam ination at a Health Care Facility 11/10/2008 05/15/2014 documented as of this encounter (statuses as of 06/09/2022) [place] [address]-09-2009 History of Past illness Narrative* Problem Noted Date Resolved Date Routine General Medical Exam ination at a Health Care Facility 11/10/2008 05/15/2014 documented as of this encounter (statuses as of 06/17/2022) [place] [address]-09-2009 History of Past illness Narrative* Problem Noted Date Resolved Date Routine General Medical Exam ination at a Health Care Facility 11/10/2008 05/15/2014 documented as of this encounter (statuses as of 07/14/2022) [place] [address]-09-2009 History of Past illness Narrative* Problem Noted Date Resolved Date Routine General Medical Exam ination at a Health Care Facility 11/10/2008 05/15/2014 documented as of this encounter (statuses as of 08/12/2022) [place] [address]-09-2009 History of Past illness Narrative* Problem Noted Date Resolved Date Routine General Medical Exam ination at a Health Care Facility 11/10/2008 05/15/2014 documented as of this encounter (statuses as of 08/18/2022) [place] [address]-09-2009 History of Past illness Narrative* Problem Noted Date Resolved Date Routine General Medical Exam ination at a Health Care Facility 11/10/2008 05/15/2014 documented as of this encounter (statuses as of 08/22/2022) [address] History of Past illness Narrative* Problem Noted Date Resolved Date Routine General Medical Exam ination at a Health Care Facility 11/10/2008 05/15/2014 documented as of this encounter (statuses as of 09/07/2022) [facility]2009 History of Past illness Narrative* Problem Noted Date Resolved Date Routine General Medical Exam ination at a Health Care Facility 11/10/2008 05/15/2014 documented as of this encounter (statuses as of 09/20/2022) [place] [address]-09-2009 History of Past illness Narrative* Problem Noted Date Resolved Date Routine General Medical Exam ination at a Health Care Facility 11/10/2008 05/15/2014 documented as of this encounter (statuses as of 10/05/2022) [place] [address]-09-2009 History of Past illness Narrative* Problem Noted Date Resolved Date Routine General Medical Exam ination at a Health Care Facility 11/10/2008 05/15/2014 documented as of this encounter (statuses as of 10/05/2022) [facility] History of Past illness Narrative* Problem Noted Date Resolved Date Routine General Medical Exam ination at a Health Care Facility 11/10/2008 05/15/2014 documented as of this encounter (statuses as of 10/10/2022) [facility] History of Past illness Narrative* Problem Noted Date Resolved Date Routine General Medical Exam ination at a Health Care Facility 11/10/2008 05/15/2014 documented as of this encounter (statuses as of 10/10/2022) [facility] History of Past illness Narrative* Problem Noted Date Resolved Date Routine General Medical Exam ination at a Health Care Facility 11/10/2008 05/15/2014 documented as of this encounter (statuses as of 10/12/2022) [facility] History of Past illness Narrative* Problem Noted Date Resolved Date Routine General Medical Exam ination at a Health Care Facility 11/10/2008 05/15/2014 documented as of this encounter (statuses as of 10/14/2022) [id number] History of Past illness Narrative* Problem Noted Date Resolved Date Routine General Medical Exam ination at a Health Care Facility 11/10/2008 05/15/2014 documented as of this encounter (statuses as of 10/22/2022) [facility] History of Past illness Narrative* Problem Noted Date Resolved Date Routine General Medical Exam ination at a Health Care Facility 11/10/2008 05/15/2014 documented as of this encounter (statuses as of 10/28/2022) [facility] History of Past illness Narrative* Problem Noted Date Resolved Date Routine General Medical Exam ination at a Health Care Facility 11/10/2008 05/15/2014 documented as of this encounter (statuses as of 11/05/2022) [facility] History of Past illness Narrative* Problem Noted Date Resolved Date Routine General Medical Exam ination at a [facility] 11/10/2008 05/15/2014 documented as of this encounter (statuses as of 11/15/2022) [facility] History of Past illness Narrative* Problem Noted Date Resolved Date Routine General Medical Exam ination at a [facility] 11/10/2008 05/15/2014 documented as of this encounter (statuses as of 11/18/2022) [facility] History of Past illness Narrative* Problem Noted Date Resolved Date Routine General Medical Exam ination at a Health Care Facility 11/10/2008 05/15/2014 documented as of this encounter (statuses as of 11/21/2022) [facility] History of Past illness Narrative* Problem Noted Date Resolved Date Routine General Medical Exam ination at a Health Care Facility 11/10/2008 05/15/2014 documented as of this encounter (statuses as of 11/25/2022) [facility] History of Past illness Narrative* Problem Noted Date Resolved Date Routine General Medical Exam ination at a Health Care Facility 11/10/2008 05/15/2014 documented as of this encounter (statuses as of 12/21/2022) [facility] [id number] History of Past illness Narrative* Problem Noted Date Resolved Date Routine General Medical Exam ination at a Health Care Facility 11/10/2008 05/15/2014 documented as of this encounter (statuses as of 01/03/2023) [facility] [id number] History of Past illness Narrative* Problem Noted Date Resolved Date Routine General Medical Exam ination at a Health Care Facility 11/10/2008 05/15/2014 documented as of this encounter (statuses as of 01/03/2023) [address]2009 History of Past illness Narrative* Problem Noted Date Resolved Date Routine General Medical Exam ination at a [facility] 11/10/2008 05/15/2014 documented as of this encounter (statuses as of 01/03/2023) [address]2009 History of Past illness Narrative* Problem Noted Date Resolved Date Routine General Medical Exam ination at a [facility] 11/10/2008 05/15/2014 documented as of this encounter (statuses as of 01/16/2023) [address]2009 History of Past illness Narrative* Problem Noted Date Resolved Date Routine General Medical Exam ination at a [facility] 11/10/2008 05/15/2014 documented as of this encounter (statuses as of 01/19/2023) [address] History of Past illness Narrative* Problem Noted Date Resolved Date Routine General Medical Exam ination at a [facility] 11/10/2008 05/15/2014 documented as of this encounter (statuses as of 01/23/2023) [facility] History of Past illness Narrative* Problem Noted Date Resolved Date Routine General Medical Exam ination at a [facility] 11/10/2008 05/15/2014 documented as of this encounter (statuses as of 01/23/2023) [facility] History of Past illness Narrative* Problem Noted Date Resolved Date Routine General Medical Exam ination at a [facility] 11/10/2008 05/15/2014 documented as of this encounter (statuses as of 01/26/2023) [facility]- [facility] 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 [facility] Diagnosis Pancreatic cyst Cyst and pseudocyst of pancreas [facility] Diagnosis Urination frequency- Primary Urinary frequency Microscopic hematuria [facility] Diagnosis Dysuria- Primary Generalized abdominal pain Abdominal pain, generalized [facility] Diagnosis Calculus of gallbladder without cholecystitis without obstruction- Primary Calculus of gallbladder without mention of cholecystitis or obstruction Gastroesophageal reflux disease, unspecified whether esophagitis present Screening for colon cancer Special screening for malignant neoplasms, colon [facility] Urine retention- Primary Retention of urine, unspecified Dyspareunia in female Senile (atrophic) vaginitis Postmenopausal atrophic vaginitis [facility] Diagnosis Sinus congestion- Primary Other diseases of nasal cavity and sinuses [facility] Diagnosis Fatigue, unspecified type- Primary Thyroid nodule Nontoxic uninodular goiter Vitamin D deficiency Unspecified vitamin D deficiency Stage 3 chronic kidney disease, unspecified whether stage 3a or 3b CKD (HCC) 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 Iron deficiency Iron deficiency anemia, unspecified Nasal congestion Other diseases of nasal cavity and sinuses [facility] Diagnosis Myalgia- Primary Mylagia and myositis, unspecified DDD (degenerative disc disease), cervical Degeneration of cervical intervertebral disc [facility] Diagnosis Gastroesophageal reflux disease, unspecified whether esophagitis present- Primary Screening for colon cancer Special screening for malignant neoplasms, colon Calculus of gallbladder without cholecystitis without obstruction Calculus of gallbladder without mention of cholecystitis or obstruction 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 [facility]* Diagnosis Neck pain- Primary Cervicalgia [facility] Diagnosis Essential hypertension Unspecified essential hypertension [facility] Diagnosis URI, acute- Primary Acute upper respiratory infections of unspecified site [facility] Diagnosis Acute non-recurrent maxillary sinusitis- Primary [facility] Diagnosis Right lower quadrant abdominal pain- Primary Abdominal pain, right lower quadrant Recurrent UTI (urinary tract infection) Urinary tract infection, site not specified [facility] Sinus congestion- Primary Other diseases of nasal cavity and sinuses [facility] Diagnosis Muscle strain of left shoulder, initial encounter- Primary Dysuria Epigastric pain Abdominal pain, epigastric [facility] Diagnosis Screening for colon cancer- Primary Special screening for malignant neoplasms, colon Gastroesophageal reflux disease, unspecified whether esophagitis present Calculus of gallbladder without cholecystitis without obstruction Calculus of gallbladder without mention of cholecystitis or obstruction documented in this encounter [facility] note* Diagnosis Nausea and vomiting, unspecified vomiting type- Primary Recurrent UTI (urinary tract infection) Urinary tract infection, site not specified documented in this encounter [facility] note* Diagnosis Epigastric abdominal pain- Primary Abdominal pain, epigastric documented in this encounter [facility] note* Diagnosis GERD without esophagitis Esophageal reflux documented in this encounter [facility] note* Diagnosis Pericardial effusion- Primary Unspecified disease of pericardium documented in this encounter [facility] note* Diagnosis Pericardial effusion- Primary Unspecified disease of pericardium documented in this encounter [facility] note* Diagnosis Dysuria documented in this encounter [facility] note* Diagnosis Pericardial effusion Unspecified disease of pericardium documented in this encounter [facility] note* Diagnosis Rib pain- Primary Chest pain, unspecified Pericardial effusion Unspecified disease of pericardium documented in this encounter [facility] note* Diagnosis Pain of right upper extremity- Primary Neck pain Cervicalgia documented in this encounter [facility] note* Diagnosis Burning with urination- Primary Dysuria Back pain, unspecified back location, unspecified back pain laterality, unspecified chronicity documented in this encounter [facility] note* Diagnosis Calculus of gallbladder without cholecystitis without obstruction- Primary Calculus of gallbladder without mention of cholecystitis or obstruction documented in this encounter [facility] note* Diagnosis Acute low back pain without sciatica, unspecified back pain laterality- Primary Microscopic hematuria documented in this encounter [facility] note* Diagnosis Nausea- Primary Nausea alone documented in this encounter [facility] note* Diagnosis Left elbow pain- Primary Pain in joint, upper arm documented in this encounter [facility] note* Diagnosis Urinary frequency- Primary [facility] Diagnosis Asymptomatic postmenopausal status [facility]* Diagnosis Age-related osteoporosis without current pathological fracture- Primary Senile osteoporosis documented in this encounter [facility] note* Diagnosis Thyroid nodule- Primary Nontoxic uninodular goiter Vitamin D deficiency Unspecified vitamin D deficiency Fatigue, unspecified type Muscle spasm Spasm of muscle Thyroid nodule Nontoxic uninodular goiter documented in this encounter [facility] note* Diagnosis Thyroid nodule Nontoxic uninodular goiter documented in this encounter [facility] note* Diagnosis GERD without esophagitis Esophageal reflux documented in this encounter [facility] note* Diagnosis Allergy, initial encounter- Primary documented in this encounter [facility] note* Diagnosis Essential hypertension Unspecified essential hypertension documented in this encounter [facility] note* Diagnosis GERD without esophagitis Esophageal reflux documented in this encounter [facility] note* Diagnosis Dysuria- Primary documented in this encounter [facility] note* Diagnosis Rib pain- Primary Chest pain, unspecified Mixed hyperlipidemia Encounter for screening mammogram for breast cancer documented in this encounter [facility] noteNo assessment information availableCoMercy [facility] Work Phone: Evaluation note* Diagnosis Sinus congestion- Primary Other diseases of nasal cavity and sinuses Body aches Generalized pain documented in this encounter [facility] note* Diagnosis Lumbar pain- Primary Lumbago documented in this encounter [facility] note* Diagnosis URI, acute- Primary Acute upper respiratory infections of unspecified site documented in this encounter [facility] note* Diagnosis Abnormal mammogram- Primary Abnormal mammogram, unspecified documented in this encounter [facility] note* Diagnosis GERD without esophagitis- Primary Esophageal reflux Screening for colon cancer Special screening for malignant neoplasms, colon documented in this encounter [facility] note* Diagnosis Sinus congestion- Primary Other diseases of nasal cavity and sinuses Seasonal allergic rhinitis due to other allergic trigger Chronic kidney disease, stage 3a (HCC) documented in this encounter [facility] note* Diagnosis Pain in lower jaw- Primary Jaw pain Primary hypertension Unspecified essential hypertension Lung nodule Solitary pulmonary nodule Chronic kidney disease, stage 3a (HCC) Mixed hyperlipidemia Pericardial effusion Unspecified disease of pericardium documented in this encounter [facility] note* Diagnosis GERD without esophagitis Esophageal reflux documented in this encounter [facility] note* Diagnosis Diarrhea, unspecified type- Primary Lead exposure Personal history of contact with and (suspected) exposure to lead documented in this encounter [facility] note* Diagnosis Pericardial effusion- Primary Unspecified disease of pericardium documented in this encounter [facility] note* Diagnosis Biliary cyst- Primary Other specified disorder of gallbladder documented in this encounter [facility] note* Diagnosis COVID-19- Primary documented in this encounter [facility] note* Diagnosis GERD without esophagitis Esophageal reflux documented in this encounter [facility] note* Diagnosis GERD without esophagitis Esophageal reflux documented in this encounter [facility] note* Diagnosis GERD without esophagitis Esophageal reflux documented in this encounter [facility] note* Diagnosis RUQ pain- Primary Abdominal pain, right upper quadrant GERD without esophagitis Esophageal reflux Chronic kidney disease, stage 3a (HCC) Primary hypertension Unspecified essential hypertension Gastritis with hemorrhage, unspecified chronicity, unspecified gastritis type Fatigue, unspecified type Screening for colon cancer Special screening for malignant neoplasms, colon documented in this encounter [facility] note* Diagnosis RUQ pain- Primary Abdominal pain, right upper quadrant Calculus of gallbladder without cholecystitis without obstruction Calculus of gallbladder without mention of cholecystitis or obstruction documented in this encounter [facility] note* Diagnosis Protein-calorie malnutrition, unspecified severity (HCC)- Primary RUQ pain Abdominal pain, right upper quadrant GERD without esophagitis Esophageal reflux Screening for colon cancer Special screening for malignant neoplasms, colon Secondary renal hyperparathyroidism (HCC) Secondary hyperparathyroidism (of renal origin) documented in this encounter [facility] note* Diagnosis Essential hypertension Unspecified essential hypertension documented in this encounter [facility] note* Diagnosis Burning with urination- Primary Dysuria documented in this encounter [facility] note* Diagnosis Pelvic pain- Primary documented in this encounter [facility] note* Diagnosis Pelvic pain documented in this encounter [facility] note* Diagnosis Pain in rib- Primary Chest pain, unspecified documented in this encounter [facility] note* Diagnosis Acute bilateral low back pain without sciatica- Primary Nausea Nausea alone GERD without esophagitis Esophageal reflux documented in this encounter [facility] note* Diagnosis Tingling of both feet- Primary documented in this encounter [facility] note* Diagnosis Folic acid deficiency- Primary Other B-complex deficiencies documented in this encounter [facility] note* Diagnosis Diarrhea, unspecified type- Primary [facility] Diagnosis Viral gastroenteritis- Primary Intestinal infection due to other organism, not elsewhere classified documented in this encounter [facility] note* Diagnosis Sprain of left shoulder, unspecified shoulder sprain type, initial encounter- Primary [facility]* Diagnosis Essential hypertension Unspecified essential hypertension documented in this encounter [facility] note* Diagnosis Acute midline low back pain without sciatica- Primary [facility]* Diagnosis Sinus congestion Other diseases of nasal cavity and sinuses Seasonal allergic rhinitis due to other allergic trigger documented in this encounter [facility] note* Diagnosis Sinus congestion Other diseases of nasal cavity and sinuses Seasonal allergic rhinitis due to other allergic trigger documented in this encounter [facility] note* Diagnosis Pelvic pain- Primary Dysuria Chronic left-sided low back pain without sciatica [facility]* Diagnosis Mixed hyperlipidemia documented in this encounter [facility] note* Diagnosis Mixed hyperlipidemia [facility]* Diagnosis DDD (degenerative disc disease), lumbar- Primary Degeneration of lumbar or lumbosacral intervertebral disc Primary hypertension Unspecified essential hypertension documented in this encounter [facility] note* Diagnosis Viral URI- Primary Acute upper respiratory infections of unspecified site [facility]* Diagnosis Acute non-recurrent maxillary sinusitis- Primary [facility]* Diagnosis Burning with urination- Primary Dysuria documented in this encounter [facility] note* Diagnosis Thyroid nodule Nontoxic uninodular goiter documented in this encounter [facility] note* Diagnosis Dysuria- Primary [facility] [facility] Diagnosis Persistent dry cough- Primary Cough Nasal congestion Other diseases of nasal cavity and sinuses Upper back pain, chronic Backache, unspecified Neck pain, chronic Cervicalgia [facility]* Diagnosis Pain in lower jaw Jaw pain documented in this encounter [facility] note* Diagnosis RUQ pain Abdominal pain, right upper quadrant documented [facility] this [facility]* Diagnosis Abnormal mammogram Abnormal mammogram, unspecified documented in this encounter [facility] note* Diagnosis Encounter for screening mammogram for breast cancer documented in this encounter [facility] note* Diagnosis Abnormal mammogram Abnormal mammogram, unspecified documented [facility]* Diagnosis Pelvic pain [facility] Diagnosis Lung nodules Other nonspecific abnormal finding of lung field [facility]* Diagnosis Viral URI- Primary Acute upper respiratory infections of unspecified site [facility]* Diagnosis Essential hypertension Unspecified essential hypertension [facility] Diagnosis Primary hypertension- Primary Unspecified essential hypertension Mixed hyperlipidemia GERD without esophagitis Esophageal reflux Chronic kidney disease, stage 3a (HCC) Thyroid nodule Nontoxic uninodular goiter Pericardial effusion Unspecified disease of pericardium Folate deficiency Other B-complex deficiencies [facility]* Diagnosis Sinus pressure- Primary Other diseases of nasal cavity and sinuses [facility]* Diagnosis Folic acid deficiency- Primary Other B-complex deficiencies Mixed hyperlipidemia [facility]* Diagnosis Upper back pain- Primary Muscle strain Unspecified site of sprain and strain Screening mammogram for breast cancer [facility]* Diagnosis Upper back pain- Primary Rib pain Chest pain, unspecified Fall, initial encounter [facility] Upper back pain Rib pain Chest pain, unspecified [facility]* Diagnosis Colicky RLQ abdominal pain- Primary Abdominal pain, right lower quadrant Urine leukocytes Other cells and casts in urine [facility]* Diagnosis GERD without esophagitis- Primary Esophageal reflux Epigastric pain Abdominal pain, epigastric [facility]* Diagnosis Nausea- Primary Nausea alone Gallstones Calculus of gallbladder without mention of cholecystitis or obstruction Left ear pain Otalgia, unspecified [facility]* Diagnosis Muscle strain- Primary Unspecified site of sprain and strain Left ear pain Otalgia, unspecified [facility]* Diagnosis Urinary frequency- Primary [facility]* Diagnosis Folic acid deficiency- Primary Other B-complex deficiencies [facility]* Diagnosis URI, acute- Primary Acute upper respiratory infections of unspecified site Chronic kidney disease, stage 3a (HCC) [facility]* Diagnosis URI, acute- Primary Acute upper respiratory infections of unspecified site Post viral syndrome Other malaise and fatigue Impacted cerumen of right ear Impacted cerumen [facility] Diagnosis Thickened endometrium- Primary Nonspecific (abnormal) findings on radiological and other examination of genitourinary organs Suprapubic pressure Abdominal pain, other specified site [facility]* Diagnosis Pelvic pain- Primary Thickened endometrium Nonspecific (abnormal) findings on radiological and other examination of genitourinary organs Chronic kidney disease, stage 3a (HCC) [facility]* Diagnosis Pelvic pain Thickened endometrium Nonspecific (abnormal) findings on radiological and other examination of genitourinary organs Chronic kidney disease, stage 3a (HCC) [facility]* Diagnosis Pelvic pain Thickened endometrium Nonspecific (abnormal) findings on radiological and other examination of genitourinary organs Chronic kidney disease, stage 3a (HCC) [facility]* Diagnosis 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 malabsorption with proteinuria- Primary Other vitamin B12 deficiency anemia Folate deficiency Other B-complex deficiencies Pelvic pain Calculus of gallbladder without cholecystitis without obstruction Calculus of gallbladder without mention of cholecystitis or obstruction [facility]* Diagnosis Pelvic pain- Primary Thickened endometrium Nonspecific (abnormal) findings on radiological and other examination of genitourinary organs Cervical stenosis (uterine cervix) Stricture and stenosis of cervix [facility]* Diagnosis Essential hypertension Unspecified essential hypertension [facility] Dysuria- Primary [facility] Diagnosis Rib pain- Primary Chest pain, unspecified [facility]* Diagnosis Epigastric pain- Primary Abdominal pain, epigastric Nausea Nausea alone Gastroesophageal reflux disease, unspecified whether esophagitis present [facility]* Diagnosis Lower abdominal pain- Primary Abdominal pain, other specified site [facility]* Diagnosis Seasonal allergic rhinitis due to pollen- Primary [facility]* Diagnosis Urinary frequency- Primary [facility]* Diagnosis Viral URI with cough- Primary Acute upper respiratory infections of unspecified site [facility]* Diagnosis DDD (degenerative disc disease), lumbar- Primary Degeneration of lumbar or lumbosacral intervertebral disc [facility]* Diagnosis Gastroesophageal reflux disease without esophagitis- Primary Esophageal reflux Colon cancer screening Special screening for malignant neoplasms, colon documented in this encounter [facility] Work Phone: Evaluation note* Diagnosis Upper respiratory symptom- Primary Other symptoms involving respiratory system and chest documented [facility]* Diagnosis Breast pain- Primary Mastodynia 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 Vitamin B12 deficiency Other B-complex deficiencies [facility]* Diagnosis Viral gastroenteritis- Primary Intestinal infection due to other organism, not elsewhere classified Nausea Nausea alone documented [facility]* Diagnosis Bilateral leg cramps- Primary Sinus congestion Other diseases of nasal cavity and sinuses Seasonal allergic rhinitis due to other allergic trigger [facility]* Diagnosis Pelvic pain- Primary Thickened endometrium Nonspecific (abnormal) findings on radiological and other examination of genitourinary organs [facility]* Diagnosis Nausea- Primary Nausea alone [facility]* Diagnosis Primary hypertension- Primary Unspecified essential hypertension Mixed hyperlipidemia GERD without esophagitis Esophageal reflux Chronic kidney disease, stage 3a (HCC) Thyroid nodule Nontoxic uninodular goiter DDD (degenerative disc disease), lumbar Degeneration of lumbar or lumbosacral intervertebral disc Osteoporosis without current pathological fracture, unspecified osteoporosis type Osteoporosis, unspecified osteoporosis type, unspecified pathological fracture presence [facility]* Diagnosis Breast pain Mastodynia [facility] Diagnosis Burning with urination- Primary Dysuria [facility]* Diagnosis Dysuria- Primary [facility]* Diagnosis Seasonal allergic rhinitis due to fungal spores- Primary [facility] Diagnosis Biliary cyst- Primary Other specified disorder of gallbladder [facility] Diagnosis Left lower quadrant abdominal pain- Primary Left lower quadrant abdominal pain [facility]* Diagnosis Mixed hyperlipidemia [facility]* Diagnosis Biliary cyst Other specified disorder of gallbladder documented in this encounter [facility] note* Diagnosis Muscle strain of chest wall, initial encounter- Primary documented [facility]* Diagnosis Left lower quadrant abdominal pain documented in this encounter [facility] note* Diagnosis Gastroesophageal reflux disease without esophagitis- Primary Esophageal reflux Chronic fatigue Other malaise and fatigue documented in this encounter [facility] note* Diagnosis Rib pain on left side Chest pain, unspecified documented in this encounter [facility] note* Diagnosis Osteoporosis without current pathological fracture, unspecified osteoporosis type documented in this encounter [facility] note* Diagnosis Primary hypertension- Primary Unspecified essential hypertension Mixed hyperlipidemia Pericardial effusion Unspecified disease of pericardium Lung nodule Solitary pulmonary nodule GERD without esophagitis Esophageal reflux Chronic kidney disease, stage 3a (HCC) Thyroid nodule Nontoxic uninodular goiter DDD (degenerative disc disease), lumbar Degeneration of lumbar or lumbosacral intervertebral disc DDD (degenerative disc disease), cervical Degeneration of cervical intervertebral disc Anxiety Anxiety state, unspecified Osteoporosis without current pathological fracture, unspecified osteoporosis type IPMN (intraductal papillary mucinous neoplasm) Neoplasm of unspecified nature of digestive system [facility]* Diagnosis Suspected COVID-19 virus infection- Primary Viral URI with cough Acute upper respiratory infections of unspecified site documented in this encounter [facility] note* Diagnosis Lumbar pain Lumbago documented in this encounter [facility] note* Diagnosis Rib pain Chest pain, unspecified documented [facility]* Diagnosis Left elbow pain Pain in joint, upper arm documented in this encounter [facility] note* Diagnosis Neck pain Cervicalgia documented in this encounter [facility] note* Diagnosis Abnormal x-ray of lung Other nonspecific abnormal finding of lung field documented in this encounter [facility] note* Diagnosis Pain of right scapula Disorder of bone and cartilage, unspecified documented in this encounter [facility] note* Diagnosis Chest wall pain Painful respiration Acute pain of right knee [facility]* Diagnosis Rib pain on left side Chest pain, unspecified Rib pain on right side Chest pain, unspecified documented in this encounter [facility] note* Diagnosis Lower abdominal pain Abdominal pain, other specified site DDD (degenerative disc disease), lumbar Degeneration of lumbar or lumbosacral intervertebral disc [facility]* Diagnosis URI, acute- Primary Acute upper respiratory infections of unspecified site Chronic kidney disease, stage 3a (HCC) [facility]* Diagnosis Thyroid nodule Nontoxic uninodular goiter [facility]* Diagnosis Rib pain Chest pain, unspecified [facility]* Diagnosis Acute pansinusitis, recurrence not specified- Primary [facility]* Diagnosis Acute thoracic back pain, unspecified back pain laterality- Primary Acute thoracic back pain, unspecified back pain laterality [facility]* Diagnosis Essential hypertension Unspecified essential hypertension [facility]* Diagnosis Acute thoracic back pain, unspecified back pain laterality [facility]* Diagnosis Sinus congestion Other diseases of nasal cavity and sinuses Seasonal allergic rhinitis due to other allergic trigger [facility]* Diagnosis Solitary lung nodule- Primary Solitary pulmonary nodule Lung nodules Other nonspecific abnormal finding of lung field [facility]* Diagnosis Frequent UTI- Primary Urinary tract infection, site not specified Dysuria Acute maxillary sinusitis, recurrence not specified [facility]* Diagnosis Gastroesophageal reflux disease without esophagitis- Primary Esophageal reflux [facility]* Diagnosis GERD without esophagitis- Primary Esophageal reflux [facility]* Diagnosis Chronic fatigue- Primary Other malaise and fatigue Difficulty sleeping Sleep disturbance, unspecified Folate deficiency Other B-complex deficiencies Vitamin B12 deficiency Other B-complex deficiencies [facility]* Diagnosis Patient left without being seen- Primary Surgical or other procedure not carried out because of patient's decision [facility]* Diagnosis Solitary lung nodule Solitary pulmonary nodule Lung nodules Other nonspecific abnormal finding of lung field [facility]* Diagnosis URI, acute- Primary Acute upper respiratory infections of unspecified site Encounter for screening mammogram for breast cancer [facility]* Diagnosis Coccyx pain- Primary Other disorder of coccyx [facility]* Diagnosis Acute cystitis with hematuria- Primary Acute cystitis [facility] Diagnosis Muscle strain of right scapular region, initial encounter- Primary Dysuria [facility]* Diagnosis Bilateral flank pain- Primary Abdominal pain, unspecified site [facility] Diagnosis Gastroesophageal reflux disease without esophagitis- Primary Esophageal reflux Primary hypertension Unspecified essential hypertension Epigastric discomfort Abdominal pain, epigastric [facility]* Diagnosis Acute maxillary sinusitis, recurrence not specified- Primary documented [facility]* Diagnosis Flank pain- Primary Abdominal pain, unspecified site [facility]* Diagnosis Flank pain Abdominal pain, unspecified site [facility]* Diagnosis Epistaxis- Primary [facility] Diagnosis Pain in both lower legs- Primary Folate deficiency Other B-complex deficiencies Muscle cramps Cramp of limb [facility]* Diagnosis Medicare annual wellness visit, subsequent- Primary Routine general medical examination at a [facility] Screening for depression Chronic kidney disease, stage 3a (HCC) Primary hypertension Unspecified essential hypertension Mixed hyperlipidemia Thyroid nodule Nontoxic uninodular goiter DDD (degenerative disc disease), cervical Degeneration of cervical intervertebral disc Degeneration of intervertebral disc of lumbar region, unspecified whether pain present Osteoporosis without current pathological fracture, unspecified osteoporosis type Anxiety Anxiety state, unspecified [facility]* Diagnosis Muscle strain of right scapular region, initial encounter- Primary [facility]* Diagnosis Impacted cerumen of right ear- Primary Impacted cerumen [facility]* Diagnosis Nausea- Primary Nausea alone [facility]* Diagnosis Sinus congestion Other diseases of nasal cavity and sinuses Seasonal allergic rhinitis due to other allergic trigger [facility]* Diagnosis Actinic keratoses- Primary Actinic keratosis [facility] Diagnosis Burning with urination- Primary Dysuria [facility]* Diagnosis Dysuria- Primary Actinic keratoses Actinic keratosis [facility]* Diagnosis Folate deficiency Other B-complex deficiencies documented in this encounter [facility] note* Diagnosis Sinus congestion Other diseases of nasal cavity and sinuses Seasonal allergic rhinitis due to other allergic trigger [facility]* Diagnosis Procedure and treatment not carried out due to patient leaving prior to being seen by health care provider- Primary documented in this encounter [facility] note* Diagnosis Midline low back pain, unspecified chronicity, unspecified whether sciatica present- Primary documented in this encounter [facility] note* Diagnosis URI, acute- Primary Acute upper respiratory infections of unspecified site documented [facility]* Diagnosis Neck pain, musculoskeletal- Primary Cervicalgia documented in this encounter [facility] note* Diagnosis Folate deficiency- Primary Other B-complex deficiencies Vitamin D deficiency Unspecified vitamin D deficiency Hypermagnesemia Disorders of magnesium metabolism documented in this encounter [facility] note* Diagnosis Viral upper respiratory tract infection- Primary Acute upper respiratory infections of unspecified site documented [facility]* Diagnosis Lower abdominal pain- Primary Abdominal pain, other specified site GERD without esophagitis Esophageal reflux 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 malabsorption with proteinuria Other vitamin B12 deficiency anemia Folate deficiency Other B-complex deficiencies [facility]* Diagnosis Cyst and pseudocyst of pancreas (HCC)- Primary Cyst and pseudocyst of pancreas documented in this encounter [facility] note* Diagnosis Sinus congestion Other diseases of nasal cavity and sinuses Seasonal allergic rhinitis due to other allergic trigger [facility]* Diagnosis Acute bilateral thoracic back pain- Primary Heartburn- Primary [facility]* Diagnosis Depression, unspecified depression type- Primary [facility]* Diagnosis Primary hypertension- Primary Unspecified essential hypertension Rib pain on right side Chest pain, unspecified Mixed hyperlipidemia Chronic kidney disease, stage 3a (HCC) GERD without esophagitis Esophageal reflux documented [facility]* Diagnosis Acute bilateral thoracic back pain- Primary Lumbar spine pain Lumbago Abdominal pain, unspecified abdominal location Acute bilateral thoracic back pain Lumbar spine pain Lumbago documented in this encounter [facility] note* Diagnosis Acute bilateral thoracic back pain Lumbar spine pain Lumbago documented in this encounter [facility] note* Diagnosis Dysuria- Primary Interstitial cystitis Chronic interstitial cystitis documented in this encounter [facility] note* Diagnosis Dysuria- Primary UTI symptoms Other symptoms involving urinary system documented in this encounter [facility] note* Diagnosis Enteritis- Primary Other and unspecified noninfectious gastroenteritis and colitis documented in this encounter [facility] note* Diagnosis Acute midline thoracic back pain- Primary Weakness of both lower extremities documented in this encounter [facility] note* Diagnosis GERD without esophagitis Esophageal reflux documented in this encounter [facility] note* Diagnosis Pain in both knees, unspecified chronicity- Primary documented in this encounter [facility] note* Diagnosis Pain in both knees, unspecified chronicity documented in this encounter [facility] note* Diagnosis Encounter for screening mammogram for breast cancer documented in this encounter [facility] note* Diagnosis Cyst and pseudocyst of pancreas (HCC) Cyst and pseudocyst of pancreas documented in this encounter [facility] note* Diagnosis Primary hypertension- Primary Unspecified essential hypertension Mixed hyperlipidemia GERD without esophagitis Esophageal reflux Chronic kidney disease, stage 3a (HCC) Thyroid nodule Nontoxic uninodular goiter DDD (degenerative disc disease), cervical Degeneration of cervical intervertebral disc Degeneration of intervertebral disc of lumbar region, unspecified whether pain present Osteoporosis without current pathological fracture, unspecified osteoporosis type Pancreatic cyst (HCC) Cyst and pseudocyst of pancreas Folate deficiency Other B-complex deficiencies documented in this encounter [facility] note* Diagnosis Arthralgia of right temporomandibular joint- Primary Arthralgia of temporomandibular joint documented in this encounter [facility] note* Diagnosis Nausea- Primary Nausea alone Epigastric pain Abdominal pain, epigastric documented in this encounter [facility] note* Diagnosis Acute maxillary sinusitis, recurrence not specified- Primary Mixed hyperlipidemia documented in this encounter [facility] note* Diagnosis Acute right-sided low back pain with right-sided sciatica documented in this encounter [facility] for referral (narrative)* Diagnostic Procedure Only (Routine) - Pending Review Specialty Diagnoses / Procedures Referred By Jase llanos Referred To Contact XR IMAGING Diagnoses Neck pain Procedures XR CERV OTHER 4V AP/LAT/OBL RADEX SPINE CERVICAL 4 OR 5 VIEWS Cher Crabtree, RADHA.WASH WORKER [address] [place] [address] Xr Imaging Referral ID Status Reason Start Date Expiration Date Visits Requested Visits Authorized [id number] Pending Review Auto-Generat ed Referral 02/14/2022 03/16/2023 1 1 [facility] for referral (narrative)* Outpatient Procedure (Routine) - Pending Review Specialty Diagnoses / Procedures Referred By Contac t Referred To Contact [facility] Diagnoses Screening for colon cancer Procedures COLONOSCOPY SCREENING COLONOSCOPY FLX DX W/COLLJ SPEC WHEN PFRMD Rosie Luna MD [address] [place] [address] [facility] Disease [address] [address] Referral ID Status Reason Start Date Expiration Date Visits Requested Visits Authorized [id number] Pending Review Auto-Generat ed Referral 03/11/2022 03/11/2023 1 1 [facility] for referral (narrative)* Outpatient Procedure (Routine) - Pending Review Specialty Diagnoses / Procedures Referred By Contac t Referred To Contact [facility] Diagnoses Epigastric abdominal pain Procedures EGD DIAGNOSTIC ESOPHAGOGASTRODUODENOSC OPY TRANSORAL DIAGNOSTIC Rosie Luna MD [address] [place] [address] [facility] Disease [id number] [place] [address] Referral ID Status Reason Start Date Expiration Date Visits Requested Visits Authorized [id number] Pending Review Auto-Generat ed Referral 03/14/2022 03/14/2023 1 1 [facility] for referral (narrative)* Outpatient Procedure (Routine) - Pending Review Specialty Diagnoses / Procedures Referred By Contac t Referred [facility] Diagnoses Pericardial effusion Procedures ECHO ECHO TTHRC R-T 2D W/WOM-MODE COMPL SPEC&COLR D Bridget De Luna MD [address] [place] [address] [facility] [address] [place] [address] Referral ID Status Reason Start Date Expiration Date Visits Requested Visits Authorized [id number] Pending Review Auto-Generat ed Referral 03/22/2022 03/22/2023 1 1 * MRI/CT (Routine) - Pending Review Specialty Diagnoses / Procedures Referred By Contac t Referred To Contact CT IMAGING Diagnoses Pericardial effusion Procedures CT CHEST WO IVCON DIAGNOSTIC COMPUTED TOMOGRAPHY THORAX W/O CNTRST Bridget De Luna MD [address] [place] [address] Ct Imaging Referral ID Status Reason Start Date Expiration Date Visits Requested Visits Authorized [id number] Pending Review Auto-Generat ed Referral 03/22/2022 04/21/2023 1 1 [facility] for referral (narrative)* Diagnostic Procedure Only (Urgent) - Closed Specialty Diagnoses / Procedures Referred By Contac t Referred To Contact XR IMAGING Diagnoses Left elbow pain Procedures XR ELBOW SPECIAL VIEWS AP/LAT/OTHER LEFT RADEX ELBOW COMPLETE MINIMUM 3 VIEWS Em Slade, RADHA.WILFREDO [address] [place] [address] Xr Imaging Referral ID Status Reason Start Date Expiration Date V isits Requested Visits Authorized [id number] Closed Auto-Generate d Referral 05/24/2022 06/23/2023 1 1 [facility] for referral (narrative)* Diagnostic Procedure Only (Routine) - Closed Specialty Diagnoses / Procedures Referred By Contac t Referred To Contact US IMAGING Diagnoses Thyroid nodule Procedures US THYROID/PARATHYROID US SOFT TISSUE HEAD & NECK REAL TIME IMGE Bayron Suarez DO [address] [place] [address] Us Imaging Referral ID Status Reason Start Date Expiration Date V isits Requested Visits Authorized [id number] Closed Auto-Generate d Referral 06/08/2022 07/08/2023 1 1 [facility] for referral (narrative)* Diagnostic Procedure Only (Routine) - Closed Specialty Diagnoses / Procedures Referred By Contac t Referred To Contact US IMAGING Diagnoses Thyroid nodule Procedures US THYROID/PARATHYROID US SOFT TISSUE HEAD & NECK REAL TIME IMGE DOCM Bayron Wesley DO [address] [place] [address] Us Imaging Referral ID Status Reason Start Date Expiration Date V isits Requested Visits Authorized [id number] Closed Auto-Generate d Referral 06/08/2022 07/08/2023 1 1 [facility] for referral (narrative)* Diagnostic Procedure Only (Routine) - Closed Specialty Diagnoses / Procedures Referred By Jase t Referred To Contact XR IMAGING Diagnoses Acute midline low back pain without sciatica Rib pain Procedures XR RIBS BILATERAL/CHEST 4V RADEX RIBS BI W/POSTEROANT CH MINIMUM 4 VIEWS Rachael Hammond APRN.WASH WORKER [address] [place] [address] Xr Imaging Referral ID Status Reason Start Date Expiration Date V isits Requested Visits Authorized [id number] Closed Auto-Generate d Referral 09/07/2022 10/07/2023 1 1 * Diagnostic Procedure Only (Routine) - Authorized Specialty Diagnoses / Procedures Referred By Contac t Referred To Contact BR IMAGING Diagnoses Encounter for screening mammogram for breast cancer Procedures TROY SCREENING SCREENING MAMMOGRAPHY BI 2-VIEW BREAST INC CAD Rachael Hammond APRN.WASH WORKER [address] [place] [address] Br Imaging [address] [place] [address] Referral ID Status Reason Start Date Expiration Date Visits Requested Visits Authorized [id number] Authorized Auto-Generat ed Referral 09/07/2022 10/07/2023 1 1 [facility] for referral (narrative)* Diagnostic Procedure Only (Routine) - Closed Specialty Diagnoses / Procedures Referred By Contac t Referred To Contact XR IMAGING Diagnoses Lumbar pain Procedures XR LUMBAR GENERAL 3V AP/LAT/L5-S1 RADEX SPINE LUMBOSACRAL 2/3 VIEWS Bridget De Luna MD [address] [place] [address] Xr Imaging Referral ID Status Reason Start Date Expiration Date V isits Requested Visits Authorized [id number] Closed Auto-Generate d Referral 09/29/2022 10/29/2023 1 1 [facility] for referral (narrative)* Diagnostic Procedure Only (Routine) - Authorized Specialty Diagnoses / Procedures Referred By Contac t Referred To Contact BR IMAGING Diagnoses Abnormal mammogram Procedures US BREAST LTD LT US BREAST UNI REAL TIME WITH IMAGE LIMITED Rachael Hammond APRN.WASH WORKER [address] [place] [address] [facility] [address] [place] [address] Referral ID Status Reason Start Date Expiration Date Visits Requested Visits Authorized [id number] Authorized Auto-Generat ed Referral 10/10/2022 11/09/2023 1 1 * Diagnostic Procedure Only (Routine) - Authorized Specialty Diagnoses / Procedures Referred By Contac t Referred To Contact BR IMAGING Diagnoses Abnormal mammogram Procedures US BREAST LTD RT US BREAST UNI REAL TIME WITH IMAGE LIMITED Rachael Hammond APRN.CNP [address] [place] [address] Br [facility] [address] [place] [address] Referral ID Status Reason Start Date Expiration Date Visits Requested Visits Authorized [id number] Authorized Auto-Generat ed Referral 10/10/2022 11/09/2023 1 1 * Diagnostic Procedure Only (Routine) - Authorized Specialty Diagnoses / Procedures Referred By Contac t Referred To Contact BR IMAGING Diagnoses Abnormal mammogram Procedures TROY DIAGNOSTIC BILAT DIAGNOSTIC MAMMOGRAPHY COMPUTER-AIDED DETCJ BI Rachael Hammond APRN.CNP [address] [place] [address] Br Imaging [address] [place] [address] Referral ID Status Reason Start Date Expiration Date Visits Requested Visits Authorized [id number] Authorized Auto-Generat ed Referral 10/10/2022 11/09/2023 1 1 [facility] for referral (narrative)* Diagnostic Procedure Only (Routine) - Closed Specialty Diagnoses / Procedures Referred By Contac t Referred To Contact XR IMAGING Diagnoses Pain in lower jaw Procedures XR MANDIBLE 4V PA/LINDA/BOTH OBL RADIOLOG EXAM MANDIBLE COMPL MINIMUM 4 VIEWS Bridget De Luna MD [facility] [place] [address] Xr Imaging Referral ID Status Reason Start Date Expiration Date V isits Requested Visits Authorized [id number] Closed Auto-Generate d Referral 11/05/2022 12/05/2023 1 1 * Outpatient Procedure (Routine) - Pending Review Specialty Diagnoses / Procedures Referred By Contac t Referred To [facility] Diagnoses Pericardial effusion Procedures ECHO ECHO TTHRC R-T 2D W/WOM-MODE COMPL SPEC&COLR D Bridget De Luna MD [facility] [place] [address] [facility] [address] [place] [address] Referral ID Status Reason Start Date Expiration Date Visits Requested Visits Authorized [id number] Pending Review Auto-Generat ed Referral 11/05/2022 11/05/2023 1 1 [facility] for referral (narrative)* Outpatient Procedure (Routine) - Pending Review Specialty Diagnoses / Procedures Referred By Jase t Referred To Contact [facility] Diagnoses RUQ pain GERD without esophagitis Screening for colon cancer Procedures COLONOSCOPY DIAGNOSTIC COLONOSCOPY FLX DX W/COLLJ SPEC WHEN PFRMD David Ortega MD [address] [place] [address] [facility] Disease [place] [id number] Referral ID Status Reason Start Date Expiration Date Visits Requested Visits Authorized [id number] Pending Review Auto-Generat ed Referral 01/26/2023 01/27/2024 1 1 * Outpatient Procedure (Routine) - Pending Review Specialty Diagnoses / Procedures Referred By Jase llanos Referred To Contact [facility] Diagnoses RUQ pain GERD without esophagitis Screening for colon cancer Procedures EGD DIAGNOSTIC ESOPHAGOGASTRODUODENOSC OPY TRANSORAL DIAGNOSTIC David Ortega MD [address] [place] [address] [place] [address] Referral ID Status Reason Start Date Expiration Date Visits Requested Visits Authorized [id number] Pending Review Auto-Generat ed Referral 01/26/2023 01/27/2024 1 1 [facility] for referral (narrative)* Diagnostic Procedure Only (Routine) - Authorized Specialty Diagnoses / Procedures Referred By Jase llanos Referred To Contact US IMAGING Diagnoses Pelvic pain Procedures US FEMALE PELVIS TRANSVAG US TRANSVAGINAL Kelly Peña APRN.WASH WORKER [address] [place] [address] Us Imaging Referral ID Status Reason Start Date Expiration Date Visits Requested Visits Authorized [id number] Authorized Auto-Generat ed Referral 03/06/2023 04/04/2024 1 1 [facility] for referral (narrative)* Diagnostic Procedure Only (Routine) - Closed Specialty Diagnoses / Procedures Referred By Contac t Referred To Contact XR IMAGING Diagnoses Pain in lower jaw Procedures XR MANDIBLE 4V PA/LINDA/BOTH OBL RADIOLOG EXAM MANDIBLE COMPL MINIMUM 4 VIEWS Bridget De Luna MD [address] [place] [address] [place] [address] Referral ID Status Reason Start Date Expiration Date V isits Requested Visits Authorized [id number] Closed Auto-Generate d Referral 11/05/2022 12/05/2023 1 1 [facility] for referral (narrative)* Diagnostic Procedure Only (Routine) - Closed Specialty Diagnoses / Procedures Referred By Contac t Referred To Contact US IMAGING Diagnoses RUQ pain Procedures US ABD RIGHT UPPER QUADRANT US ABDOMINAL REAL TIME W/IMAGE LIMITED Bridget De Luna MD [address] [place] [address] [place] [address] Referral ID Status Reason Start Date Expiration Date V isits Requested Visits Authorized [id number] Closed Auto-Generate d Referral 01/16/2023 02/15/2024 1 1 T [facility] for referral (narrative)* Diagnostic Procedure Only (Routine) - Closed Specialty Diagnoses / Procedures Referred By Contac t Referred To Contact BR IM[facility] Diagnoses Abnormal mammogram Procedures US BREAST LTD LT US BREAST UNI REAL TIME WITH IMAGE LIMITED Rachael Hammond APRN.CNP [address] [place] [address] Br Imaging [address] [place] [address] Referral ID Status Reason Start Date Expiration Date V isits Requested Visits Authorized [id number] Closed Auto-Generate d Referral 10/10/2022 11/09/2023 1 1 EN [facility] for referral (narrative)* Diagnostic Procedure Only (Routine) - Closed Specialty Diagnoses / Procedures Referred By Contac t Referred To Contact BR IMAGING Diagnoses Encounter for screening mammogram for breast cancer Procedures TROY SCREENING SCREENING MAMMOGRAPHY BI 2-VIEW BREAST INC [facility] Rachael Hammond APRN.WASH WORKER [address] [place] [address] [facility] Imaging [address] [place] [address] Referral ID Status Reason Start Date Expiration Date V isits Requested Visits Authorized [id number] Closed Auto-Generate d Referral 09/07/2022 10/07/2023 1 1 EN [facility] for referral (narrative)* Diagnostic Procedure Only (Routine) - Closed Specialty Diagnoses / Procedures Referred By Contac t Referred To Contact US IMAGING Diagnoses Pelvic pain Procedures US FEMALE PELVIS TRANSVAG US TRANSVAGINAL Kelly Peña APRN.WASH WORKER [address] [place] [address] [place] [id number] Referral ID Status Reason Start Date Expiration Date V isits Requested Visits Authorized [id number] Closed Auto-Generate d Referral 03/06/2023 04/04/2024 1 1 [facility] for referral (narrative)* Outpatient Procedure (Routine) - Authorized Specialty Diagnoses / Procedures Referred By Contac t Referred To [facility] Diagnoses Pericardial effusion Procedures ECHO ECHO TTHRC R-T 2D W/WOM-MODE COMPL SPEC&COLR D Bridget De Luna MD [address] [place] [address] [facility] [address] [place] [address] Referral ID Status Reason Start Date Expiration Date Visits Requested Visits Authorized [id number] Authorized Auto-Generat ed Referral 3 11/27/2023 1 1 [facility] for referral (narrative)* Diagnostic Procedure Only (Routine) - Authorized Specialty Diagnoses / Procedures Referred By Contac t Referred To Contact BR IMAGING Diagnoses Screening mammogram for breast cancer Procedures TROY SCREENING SCREENING MAMMOGRAPHY BI 2-VIEW BREAST INC Lilliam Quesada APRN.WASH WORKER [address] [place] [address] Br Imaging [address] [place] [address] Referral ID Status Reason Start Date Expiration Date Visits Requested Visits Authorized [id number] Authorized Auto-Generat ed Referral 09/07/2023 10/06/2024 1 1 [facility] for referral (narrative)* Diagnostic Procedure Only (Routine) - Pending Review Specialty Diagnoses / Procedures Referred By Contac t Referred To Contact XR IMAGING Diagnoses Rib pain Procedures XR RIBS BILATERAL/CHEST 4V RADEX RIBS BI W/POSTEROANT CH MINIMUM 4 VIEWS Kecia Cottrell APRN.WASH WORKER [address] [place] [address] [place] [address] Referral ID Status Reason Start Date Expiration Date Visits Requested Visits Authorized [id number] Pending Review Auto-Generat ed Referral 3 10/09/2024 1 1 * Diagnostic Procedure Only (Routine) - Pending Review Specialty Diagnoses / Procedures Referred By Contac t Referred To Contact XR IMAGING Diagnoses Upper back pain Procedures XR THORACIC LIMITED 2V AP/LAT RADEX SPINE THORACIC 2 VIEWS Kecia Cottrell APRN.WASH WORKER [address] [place] [address] [place] [address] Referral ID Status Reason Start Date Expiration Date Visits Requested Visits Authorized [id number] Pending Review Auto-Generat ed Referral 10/09/2024 1 1 [facility] for referral (narrative)* Diagnostic Procedure Only (Routine) - Closed Specialty Diagnoses / Procedures Referred By Contac t Referred To Contact XR IMAGING Diagnoses Rib pain Procedures XR RIBS BILATERAL/CHEST 4V RADEX RIBS BI W/POSTEROANT CH MINIMUM 4 VIEWS Kecia Cottrell APRN.WASH WORKER [address] [place] [address] [place] [id number] Referral ID Status Reason Start Date Expiration Date V isits Requested Visits Authorized [id number] Closed Auto-Generate d Referral 09/10/2023 10/09/2024 1 1 [facility] for referral (narrative)* Outpatient Procedure (Routine) - Pending Review Specialty Diagnoses / [facility] Diagnoses Thickened endometrium Procedures ENDOMETRIAL BIOPSY ENDOMETRIAL BX W/WO ENDOCERVIX BX W/O DILAT SPX Lilly Escoto MD [address] [place] [address] [facility] [address] [place] [address] Referral ID Status Reason Start Date Expiration Date Visits Requested Visits Authorized [id number] Pending Review Auto-Generat ed Referral 01/03/2024 01/02/2025 1 1 [facility] for referral (narrative)* Diagnostic Procedure Only (Routine) - Authorized Specialty Diagnoses / Procedures Referred By Contac t Referred To Contact BR IMAGING Diagnoses Breast pain Procedures US BREAST LTD LEFT US BREAST UNI REAL TIME WITH IMAGE LIMITED Daylin Mendenhall APRN.CERTIFIED ORTHOTIST/PEDORTHIST [address] [place] [address] Br Imaging [address] [place] [address] Referral ID Status Reason Start Date Expiration Date Visits Requested Visits Authorized [id number] Authorized Auto-Generat ed Referral 03/26/2024 04/25/2025 1 1 [facility] for referral (narrative)* Diagnostic Procedure Only (Urgent) - Closed Specialty Diagnoses / Procedures Referred By Contac t Referred To Contact XR IMAGING Diagnoses Left lower quadrant abdominal pain Procedures XR ABDOMEN 1V SUPINE XR ABDOMEN 1V SUPINE RADIOLOGIC EXAM ABDOMEN 1 VIEW Daylin Mendenhall FIELD MECHANIC.WASH WORKER [address] [place] [address] [place] [address] Referral ID Status Reason Start Date Expiration Date V isits Requested Visits Authorized [id number] Closed Auto-Generate d Referral 05/23/2024 06/22/2025 1 1 [facility] for referral (narrative)* Diagnostic Procedure Only (Routine) - Authorized Specialty Diagnoses / Procedures Referred By Contac t Referred To Contact CT IMAGING Diagnoses Biliary cyst Procedures CT ABD/PEL WO IVCON CT ABD & PELVIS [place] [address] [place] [address] [place] [address] Referral ID Status Reason Start Date Expiration Date V isits Requested Visits Authorized [id number] Authorized 05/22/2024 07/21/2024 2 2 [facility] for referral (narrative)* Diagnostic Procedure Only (Urgent) - Closed Specialty Diagnoses / Procedures Referred By Contac t Referred To Contact XR IMAGING Diagnoses Left lower quadrant abdominal pain Procedures XR ABDOMEN 1V SUPINE XR ABDOMEN 1V SUPINE RADIOLOGIC EXAM ABDOMEN 1 VIEW Daylin Mendenhall FIELD MECHANIC.WASH WORKER [address] [place] [address] [place] [address] Referral ID Status Reason Start Date Expiration Date V isits Requested Visits Authorized [id number] Closed Auto-Generate d Referral 05/23/2024 06/22/2025 1 1 [facility] for referral (narrative)* Diagnostic Procedure Only (Routine) - Closed Specialty Diagnoses / Procedures Referred By Contac t Referred To Contact XR IMAGING Diagnoses Rib pain on left side Procedures XR RIBS/CHEST 3V AP RIB/OBLS/CXR LEFT RADEX RIBS UNI W/POSTEROANT CH MINIMUM 3 VIEWS Daylin Mendenhall, WASH WORKER [address] [place] [address] [place] [address] Referral ID Status Reason Start Date Expiration Date V isits Requested Visits Authorized [id number] Closed Auto-Generate d Referral 12/29/2023 01/27/2025 1 1 [facility] for referral (narrative)* Diagnostic Procedure Only (Routine) - Authorized Specialty Diagnoses / Procedures Referred By Contac t Referred To Contact US IMAGING Diagnoses Thyroid nodule Procedures US THYROID/PARATHYROID US SOFT TISSUE HEAD & NECK REAL TIME IMGE DOCM Bridget De Luna MD [address] [place] [address] [place] [address] Referral ID Status Reason Start Date Expiration Date Visits Requested Visits Authorized [id number] Authorized Auto-Generat ed Referral 06/17/2024 07/17/2025 1 1 * Consult, Test, Treat (Routine) - Authorized Specialty Diagnoses / Procedures Referred By Contac t Referred To Contact Endocrinology Diagnoses GERD without esophagitis Osteoporosis without current pathological fracture, unspecified osteoporosis type Procedures CONSULT TO ENDOCRINOLOGY OFFICE/OUTPATIENT [facility] 60 MINUTES Bridget De Luna MD [address] [place] [address] Referral ID Status Reason Start Date Expiration Date Visits Requested Visits Authorized [id number] Authorized PCP Requested Referral 06/17/2024 06/17/2025 1 1 [facility] for referral (narrative)* Diagnostic Procedure Only (Routine) - Closed Specialty Diagnoses / Procedures Referred By Contac t Referred To Contact XR IMAGING Diagnoses Lumbar pain Procedures XR LUMBAR GENERAL 3V AP/LAT/L5-S1 RADEX SPINE LUMBOSACRAL 2/3 VIEWS Bridget De Luna MD [address] [place] [address] [place] [address] Referral ID Status Reason Start Date Expiration Date V isits Requested Visits Authorized [id number] Closed Auto-Generate d Referral 09/29/2022 10/29/2023 1 1 [facility] for referral (narrative)* Diagnostic Procedure Only (Routine) - Closed Specialty Diagnoses / Procedures Referred By Contac t Referred To Contact XR IMAGING Diagnoses Acute midline low back pain without sciatica Rib pain Procedures XR RIBS BILATERAL/CHEST 4V RADEX RIBS BI W/POSTEROANT CH MINIMUM 4 VIEWS Rachael Hammond APRN.WASH WORKER [address] [place] [address] [place] [address] Referral ID Status Reason Start Date Expiration Date V isits Requested Visits Authorized [id number] Closed Auto-Generate d Referral 09/07/2022 10/07/2023 1 1 [facility] for referral (narrative)* Diagnostic Procedure Only (Urgent) - Closed Specialty Diagnoses / Procedures Referred By Contac t Referred To Contact XR IMAGING Diagnoses Left elbow pain Procedures XR ELBOW SPECIAL VIEWS AP/LAT/OTHER LEFT RADEX ELBOW COMPLETE MINIMUM 3 VIEWS Em Slade APRN.WASH WORKER [address] [place] [address] [place] [address] Referral ID Status Reason Start Date Expiration Date V isits Requested Visits Authorized [id number] Closed Auto-Generate d Referral 05/24/2022 06/23/2023 1 1 [facility] for referral (narrative)* Diagnostic Procedure Only (Routine) - Closed Specialty Diagnoses / Procedures Referred By Contac t Referred To Contact XR IMAGING Diagnoses Neck pain Procedures XR CERV OTHER 4V AP/LAT/OBL RADEX SPINE CERVICAL 4 OR 5 VIEWS Cher Crabtree APRN.WILFREDO [address] [place] [address] [place] [address] Referral ID Status Reason Start Date Expiration Date V isits Requested Visits Authorized [id number] Closed Auto-Generate d Referral 02/14/2022 03/16/2023 1 1 [facility] for referral (narrative)* Diagnostic Procedure Only (Routine) - Closed Specialty Diagnoses / Procedures Referred By Contac t Referred To Contact XR IMAGING Diagnoses Pain of right scapula Procedures XR SCAPULA 2V AP/LAT RIGHT RADEX SCAPULA COMPLETE Bridget De Luna MD [address] [place] [address] [place] [address] Referral ID Status Reason Start Date Expiration Date V isits Requested Visits Authorized [id number] Closed Auto-Generate d Referral 10/27/2021 11/26/2022 1 1 [facility] for referral (narrative)* Diagnostic Procedure Only (Routine) - Closed Specialty Diagnoses / Procedures Referred By Contac t Referred To Contact XR IMAGING Diagnoses Acute pain of right knee Procedures XR KNEE GENERAL 4V AP BOTH/PA BOTH/LAT/MERC RIGHT KNEE AP-WGT/LAT/MERCHANT Bridget De Luna MD [address] [place] [address] [place] [address] Referral ID Status Reason Start Date Expiration Date V isits Requested Visits Authorized [id number] Closed Auto-Generate d Referral 10/13/2021 11/12/2022 1 1 * Diagnostic Procedure Only (Routine) - Closed Specialty Diagnoses / Procedures Referred By Contac t Referred To Contact XR IMAGING Diagnoses Chest wall pain Procedures XR RIBS/CHEST 3V AP RIB/OBLS/CXR RIGHT X-RAY RIBS, CHEST 3+ VW Bridget De Luna MD [address] [place] [address] [place] [address] Referral ID Status Reason Start Date Expiration Date V isits Requested Visits Authorized [id number] Closed Auto-Generate d Referral 10/13/2021 11/12/2022 1 1 [facility] for referral (narrative)* Diagnostic Procedure Only (Routine) - Closed Specialty Diagnoses / Procedures Referred By Contac t Referred To Contact XR IMAGING Diagnoses Rib pain on left side Rib pain on right side Procedures XR RIBS BILAT/CHEST 4V X-RAY RIBS, CHEST 4+ VW Jonah Camarena MD [address] [place] [address] [place] [address] Referral ID Status Reason Start Date Expiration Date V isits Requested Visits Authorized [id number] Closed Auto-Generate d Referral 07/12/2021 08/11/2022 1 1 [facility] for referral (narrative)* Diagnostic Procedure Only (Routine) - Closed Specialty Diagnoses / Procedures Referred By Contac t Referred To Contact XR IMAGING Diagnoses Lower abdominal pain DDD (degenerative disc disease), lumbar Procedures XR LUMBAR GENERAL 3V AP/LAT/L5-S1 RADEX SPINE LUMBOSACRAL 2/3 VIEWS Bridget De Luna MD [address] [place] [address] [place] [address] Referral ID Status Reason Start Date Expiration Date V isits Requested Visits Authorized [id number] Closed Auto-Generate d Referral 11/05/2021 12/05/2022 1 1 [facility] for referral (narrative)* Diagnostic Procedure Only (Urgent) - Closed Specialty Diagnoses / Procedures Referred By Contac t Referred To Contact XR IMAGING Diagnoses Acute thoracic back pain, unspecified back pain laterality Procedures XR THORACIC GENERAL 3V AP/LAT/SWIMMERS XR THORACIC GENERAL 3V AP/LAT/SWIMMERS RADEX SPINE THORACIC 3 VIEWS Daylin Mendenhall APRN.WASH WORKER [address] [place] [address] [place] [address] Referral ID Status Reason Start Date Expiration Date V isits Requested Visits Authorized [id number] Closed Auto-Generate d Referral 07/16/2024 08/15/2025 1 1 [facility] for referral (narrative)* Diagnostic Procedure Only (Urgent) - Closed Specialty Diagnoses / Procedures Referred By Contac t Referred To Contact XR IMAGING Diagnoses Acute thoracic back pain, unspecified back pain laterality Procedures XR THORACIC GENERAL 3V AP/LAT/SWIMMERS XR THORACIC GENERAL 3V AP/LAT/SWIMMERS RADEX SPINE THORACIC 3 VIEWS Daylin Mendenhall APRN.WASH WORKER [address] [place] [address] [place] [address] Referral ID Status Reason Start Date Expiration Date V isits Requested Visits Authorized [id number] Closed Auto-Generate d Referral 07/16/2024 08/15/2025 1 1 [facility] for referral (narrative)* Outpatient Procedure (Routine) - Pending Review Specialty Diagnoses / Procedures Referred By Contac t Referred To Contact [facility] Diagnoses Gastroesophageal reflux disease without esophagitis Procedures EGD DIAGNOSTIC ESOPHAGOGASTRODUODENOSC OPY TRANSORAL DIAGNOSTIC Chelsie Chavis, RADHA.WASH WORKER [address] [place] [address] [facility] [address] [place] [address] Referral ID Status Reason Start Date Expiration Date Visits Requested Visits Authorized [id number] Pending Review Auto-Generat ed Referral 08/05/2024 08/05/2025 1 1 [facility] for referral (narrative)* Diagnostic Procedure Only (Routine) - Authorized Specialty Diagnoses / Procedures Referred By Contac t Referred To Contact BR IMAGING Diagnoses Encounter for screening mammogram for breast cancer Procedures TROY SCREENING [place] SCREENING DIGITAL BREAST TOMOSYNTHESIS BI SCREENING MAMMOGRAPHY BI 2-VIEW BREAST INC CAD Bridget De Luna MD [address] [place] [address] [facility] [address] [place] [address] Referral ID Status Reason Start Date Expiration Date Visits Requested Visits Authorized [id number] Authorized Auto-Generat ed Referral 04/25/2025 10/02/2025 1 1 [facility] for visit Narrative* Diagnostic Procedure Only (Routine) - Closed Specialty Diagnoses / Procedures Referred By Contac t Referred To Contact XR IMAGING Diagnoses Pain in lower jaw Procedures XR MANDIBLE 4V PA/LINDA/BOTH OBL RADIOLOG EXAM MANDIBLE COMPL MINIMUM 4 VIEWS Bridget De Luna MD [address] [place] [address] [place] [id number] Referral ID Status Reason Start Date Expiration Date V isits Requested Visits Authorized [id number] Closed Auto-Generate d Referral 11/05/2022 12/05/2023 1 1 [facility] for visit Narrative* Diagnostic Procedure Only (Routine) - Closed Specialty Diagnoses / Procedures Referred By Contac t Referred To Contact BR IMAGING Diagnoses Encounter for screening mammogram for breast cancer Procedures TROY SCREENING SCREENING MAMMOGRAPHY BI 2-VIEW BREAST INC Rachael Dupont APRN.CNP [address] [place] [address] [facility] [address] [place] [address] Referral ID Status Reason Start Date Expiration Date V isits Requested Visits Authorized [id number] Closed Auto-Generate d Referral 09/07/2022 10/07/2023 1 1 [facility] for visit Narrative* Diagnostic Procedure Only (Routine) - Closed Specialty Diagnoses / Procedures Referred By Contac t Referred To Contact BR IMAGING Diagnoses Abnormal mammogram Procedures TROY DIAGNOSTIC BILAT DIAGNOSTIC MAMMOGRAPHY COMPUTER-AIDED DETCJ BI Rachael Hammond, FIELD MECHANIC.WASH WORKER [address] [place] [address] [facility] [address] [place] [address] Referral ID Status Reason Start Date Expiration Date V isits Requested Visits Authorized [id number] Closed Auto-Generate d Referral 10/10/2022 11/09/2023 1 1 [facility] for visit Narrative* Diagnostic Procedure Only (Routine) - Closed Specialty Diagnoses / Procedures Referred By Contac t Referred To Contact XR IMAGING Diagnoses Rib pain Procedures XR RIBS BILATERAL/CHEST 4V RADEX RIBS BI W/POSTEROANT CH MINIMUM 4 VIEWS Kecia Cottrell, FIELD MECHANIC.WASH WORKER [address] [place] [address] [place] [id number] Referral ID Status Reason Start Date Expiration Date V isits Requested Visits Authorized [id number] Closed Auto-Generate d Referral 09/10/2023 10/09/2024 1 1 [facility] for visit Narrative* Diagnostic Procedure Only (Routine) - Closed Specialty Diagnoses / Procedures Referred By Contac t Referred To Contact BR IMAGING Diagnoses Breast pain Procedures TROY DIAGNOSTIC LEFT DIAGNOSTIC MAMMOGRAPHY COMPUTER-AIDED DETCJ UNI Daylin Mendenhall, FIELD MECHANIC.WASH WORKER [address] [place] [address] [facility] [address] [place] [address] Referral ID Status Reason Start Date Expiration Date V isits Requested Visits Authorized [id number] Closed Auto-Generate d Referral 04/09/2024 05/02/2025 1 1 [facility] for visit Narrative* Diagnostic Procedure Only (Routine) - Closed Specialty Diagnoses / Procedures Referred By Contac t Referred To Contact BR IMAGING Diagnoses Breast pain Procedures US BREAST LTD LEFT US BREAST UNI REAL TIME WITH IMAGE LIMITED Daylin Mendenhall FIELD MECHANIC.WASH WORKER [address] [place] [address] [facility] [address] [place] [address] Referral ID Status Reason Start Date Expiration Date V isits Requested Visits Authorized [id number] Closed Auto-Generate d Referral 03/26/2024 04/25/2025 1 1 [facility] for visit Narrative* Diagnostic Procedure Only (Urgent) - Closed Specialty Diagnoses / Procedures Referred By Contac t Referred To Contact XR IMAGING Diagnoses Left lower quadrant abdominal pain Procedures XR ABDOMEN 1V SUPINE XR ABDOMEN 1V SUPINE RADIOLOGIC EXAM ABDOMEN 1 VIEW Daylin Mendenhall FIELD MECHANIC.WASH WORKER [address] [place] [address] [place] [address] Referral ID Status Reason Start Date Expiration Date V isits Requested Visits Authorized [id number] Closed Auto-Generate d Referral 05/23/2024 06/22/2025 1 1 [facility] for visit Narrative* Diagnostic Procedure Only (Routine) - Closed Specialty Diagnoses / Procedures Referred By Contac t Referred To Contact XR IMAGING Diagnoses Rib pain on left side Procedures XR RIBS/CHEST 3V AP RIB/OBLS/CXR LEFT RADEX RIBS UNI W/POSTEROANT CH MINIMUM 3 VIEWS Daylin Mendenhall FIELD MECHANIC.WASH WORKER [address] [place] [address] [place] [address] Referral ID Status Reason Start Date Expiration Date V isits Requested Visits Authorized [id number] Closed Auto-Generate d Referral 12/29/2023 01/27/2025 1 1 [facility] for visit Narrative* Diagnostic Procedure Only (Routine) - Closed Specialty Diagnoses / Procedures Referred By Contac t Referred To Contact XR IMAGING Diagnoses Osteoporosis without current pathological fracture, unspecified osteoporosis type Procedures DXA-AXIAL SKELETON Bridget De Luna MD [address] [place] [address] [place] [address] Referral ID Status Reason Start Date Expiration Date V isits Requested Visits Authorized [id number] Closed Auto-Generate d Referral 04/22/2024 05/22/2025 1 1 [facility] for visit Narrative* Diagnostic Procedure Only (Routine) - Closed Specialty Diagnoses / Procedures Referred By Contac t Referred To Contact XR IMAGING Diagnoses Lumbar pain Procedures XR LUMBAR GENERAL 3V AP/LAT/L5-S1 RADEX SPINE LUMBOSACRAL 2/3 VIEWS Bridget De Luna MD [address] [place] [address] [place] [address] Referral ID Status Reason Start Date Expiration Date V isits Requested Visits Authorized [id number] Closed Auto-Generate d Referral 09/29/2022 10/29/2023 1 1 [facility] for visit Narrative* Diagnostic Procedure Only (Routine) - Closed Specialty Diagnoses / Procedures Referred By Contac t Referred To Contact XR IMAGING Diagnoses Acute midline low back pain without sciatica Rib pain Procedures XR RIBS BILATERAL/CHEST 4V RADEX RIBS BI W/POSTEROANT CH MINIMUM 4 VIEWS Rachael Hammond, FIELD MECHANIC.WASH WORKER [address] [place] [id number] [place] [address] Referral ID Status Reason Start Date Expiration Date V isits Requested Visits Authorized [id number] Closed Auto-Generate d Referral 09/07/2022 10/07/2023 1 1 [facility] for visit Narrative* Diagnostic Procedure Only (Urgent) - Closed Specialty Diagnoses / Procedures Referred By Contac t Referred To Contact XR IMAGING Diagnoses Left elbow pain Procedures XR ELBOW SPECIAL VIEWS AP/LAT/OTHER LEFT RADEX ELBOW COMPLETE MINIMUM 3 VIEWS Em Slade, FIELD MECHANIC.WASH WORKER [address] [place] [address] [place] [address] Referral ID Status Reason Start Date Expiration Date V isits Requested Visits Authorized [id number] Closed Auto-Generate d Referral 05/24/2022 06/23/2023 1 1 [facility] for visit Narrative* Diagnostic Procedure Only (Routine) - Closed Specialty Diagnoses / Procedures Referred By Contac t Referred To Contact XR IMAGING Diagnoses Neck pain Procedures XR CERV OTHER 4V AP/LAT/OBL RADEX SPINE CERVICAL 4 OR 5 VIEWS Cher Crabtree, FIELD MECHANIC.WASH WORKER [address] [place] [address] [place] [address] Referral ID Status Reason Start Date Expiration Date V isits Requested Visits Authorized [id number] Closed Auto-Generate d Referral 02/14/2022 03/16/2023 1 1 [facility] for visit Narrative* Diagnostic Procedure Only (Routine) - Closed Specialty Diagnoses / Procedures Referred By Contac t Referred To Contact XR IMAGING Diagnoses Pain of right scapula Procedures XR SCAPULA 2V AP/LAT RIGHT RADEX SCAPULA COMPLETE Bridget De Luna MD [address] [place] [address] [place] [address] Referral ID Status Reason Start Date Expiration Date V isits Requested Visits Authorized [id number] Closed Auto-Generate d Referral 10/27/2021 11/26/2022 1 1 [facility] for visit Narrative* Diagnostic Procedure Only (Routine) - Closed Specialty Diagnoses / Procedures Referred By Contac t Referred To Contact XR IMAGING Diagnoses Acute pain of right knee Procedures XR KNEE GENERAL 4V AP BOTH/PA BOTH/LAT/MERC RIGHT KNEE AP-WGT/LAT/MERCHANT Bridget De Luna MD [address] [place] [address] [place] [address] Referral ID Status Reason Start Date Expiration Date V isits Requested Visits Authorized [id number] Closed Auto-Generate d Referral 10/13/2021 11/12/2022 1 1 [facility] for visit Narrative* Diagnostic Procedure Only (Routine) - Closed Specialty Diagnoses / Procedures Referred By Contac t Referred To Contact XR IMAGING Diagnoses Lower abdominal pain DDD (degenerative disc disease), lumbar Procedures XR LUMBAR GENERAL 3V AP/LAT/L5-S1 RADEX SPINE LUMBOSACRAL 2/3 VIEWS Bridget De Luna MD [address] [place] [address] [place] [address] Referral ID Status Reason Start Date Expiration Date V isits Requested Visits Authorized [id number] Closed Auto-Generate d Referral 11/05/2021 12/05/2022 1 1 [facility] for visit Narrative* Diagnostic Procedure Only (Urgent) - Closed Specialty Diagnoses / Procedures Referred By Contac t Referred To Contact XR IMAGING Diagnoses Acute thoracic back pain, unspecified back pain laterality Procedures XR THORACIC GENERAL 3V AP/LAT/SWIMMERS XR THORACIC GENERAL 3V AP/LAT/SWIMMERS RADEX SPINE THORACIC 3 VIEWS Daylin Mendenhall FIELD MECHANIC.WASH WORKER [address] [place] [address] [place] [address] Referral ID Status Reason Start Date Expiration Date V isits Requested Visits Authorized [id number] Closed Auto-Generate d Referral 07/16/2024 08/15/2025 1 1 [facility] for visit Narrative* Diagnostic Procedure Only (Routine) - Closed Specialty Diagnoses / Procedures Referred By Contac t Referred To Contact XR IMAGING Diagnoses Flank pain Procedures XR ABDOMEN 1V SUPINE RADIOLOGIC EXAM ABDOMEN 1 VIEW Daylin Mendenhall, FIELD MECHANIC.WASH WORKER [address] [place] [address] [place] [address] Referral ID Status Reason Start Date Expiration Date V isits Requested Visits Authorized [id number] Closed Auto-Generate d Referral 10/04/2024 11/03/2025 1 1 [facility] for visit Narrative* Diagnostic Procedure Only (Urgent) - Closed Specialty Diagnoses / Procedures Referred By Contac t Referred To Contact XR IMAGING Diagnoses Acute bilateral thoracic back pain Lumbar spine pain Procedures XR LUMBAR GENERAL 3V AP/LAT/L5-S1 RADEX SPINE LUMBOSACRAL 2/3 VIEWS PodlogarVangie APRN.WASH WORKER [address] [place] [address] Phone: tel: fax: [place] [address] Referral ID Status Reason Start Date Expiration Date V isits Requested Visits Authorized [id number] Closed Auto-Generate d Referral 03/24/2025 04/23/2026 1 1 [facility] for visit Narrative* Diagnostic Procedure Only (Routine) - Closed Specialty Diagnoses / Procedures Referred By Contac t Referred To Contact XR IMAGING Diagnoses Pain in both knees, unspecified chronicity Procedures XR KNEE GENERAL 4V AP BOTH/PA BOTH/LAT/MERC BILATERAL RADIOLOGIC EXAM KNEE COMPLETE 4/MORE VIEWS Daylin Mendenhall, FIELD MECHANIC.WASH WORKER [address] [place] [address] Phone: tel: fax: [place] [address] Referral ID Status Reason Start Date Expiration Date V isits Requested Visits Authorized [id number] Closed Auto-Generate d Referral 05/01/2025 05/31/2026 1 1 [facility] for visit Narrative* Diagnostic Procedure Only (Routine) - Closed Specialty Diagnoses / Procedures Referred By Jase t Referred To Contact BR IMAGING Diagnoses Encounter for screening mammogram for breast cancer Procedures TROY SCREENING [place] SCREENING DIGITAL BREAST TOMOSYNTHESIS BI SCREENING MAMMOGRAPHY BI 2-VIEW BREAST INC CAD Bridget De Luna MD [address] [place] [address] Phone: tel: fax: BR IMAGING [address] [place] [address] Referral ID Status Reason Start Date Expiration Date V isits Requested Visits Authorized [id number] Closed Auto-Generate d Referral 04/25/2025 10/02/2025 1 1 [facility] for visit Narrative* MRI/CT (Routine) - Closed Specialty Diagnoses / Procedures Referred By Jase llanos Referred To Contact CT IMAGING Diagnoses Cyst and pseudocyst of pancreas (HCC) Procedures CT ABD/PEL WO IVCON CT ABD & PELVIS [place] [address] [place] [address] Phone: tel: fax: [place] [id number] Referral ID Status Reason Start Date Expiration Date V isits Requested Visits Authorized [id number] Closed Auto-Generate d Referral 05/05/2025 07/04/2025 1 1 [facility] Summary Purpose Family History No Family History Records FoundNo Family History Records FoundNo Family History Records FoundNo Family History Records FoundNo Family History Records FoundNo Family History Records FoundNo Family History Records Found Advance Directives No Advanced Directives Records FoundDocuments on File Type Date Recorded 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 Advance Directive(s) 03/14/2022 6:11 PM Documents on File Type Date Recorded 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 Advance Directive(s) 03/14/2022 6:11 PM Health Concerns Infection Onset Date Last Indicated Resolved Time COVID-19 Confirmed 12/23/2021 12/23/2021 Infection Onset Date Last Indicated Resolved Time COVID-19 Confirmed 12/23/2021 12/23/2021 Infection Onset Date Last Indicated Resolved Time COVID-19 Confirmed 12/23/2021 12/23/2021 8:52 PM EDT Reason for Referral Specialty Diagnoses / Procedures Referred By Contac t Referred To Contact MR IMAGING Diagnoses Pancreatic cyst Procedures MRI PANC/ARAMIS WO/W IVCON MRI ABDOMEN W/O & W/[place] [address] [place] [address] Mr Imaging Referral ID Status Reason Start Date Expiration Date Visits Requested Visits Authorized [id number] Pending Review Auto-Generat ed Referral 01/04/2022 02/03/2023 1 1 Specialty Diagnoses / Procedures Referred By Contac t Referred To Contact General Surgery Diagnoses Generalized abdominal pain Procedures CONSULT TO GENERAL SURGERY OFFICE/OUTPATIENT [facility] 60-74 MINUTES Bridget De Luna MD [address] [place] [address] Referral ID Status Reason Start Date Expiration Date Visits Requested Visits Authorized [id number] Authorized PCP Requested Referral 01/10/2022 01/10/2023 1 1 Specialty Diagnoses / Procedures Referred By Contac t Referred To Contact Urology Diagnoses Dysuria Procedures CONSULT TO UROLOGY OFFICE/OUTPATIENT [facility] 60-74 MINUTES Bridget De Luna MD [address] [place] [address] Referral ID Status Reason Start Date Expiration Date Visits Requested Visits Authorized [id number] Authorized PCP Requested Referral 01/10/2022 01/10/2023 1 1 Specialty Diagnoses / Procedures Referred By Contac t Referred To Contact CT IMAGING Diagnoses Pericardial effusion Procedures CT CHEST WO IVCON DIAGNOSTIC COMPUTED TOMOGRAPHY THORAX W/O CNTRST Bridget De Luna MD [address] [place] [address] Ct Imaging Referral ID Status Reason Start Date Expiration Date V isits Requested Visits Authorized [id number] Closed Auto-Generate d Referral 03/22/2022 04/21/2023 1 1 Specialty Diagnoses / Procedures Referred By Contac t Referred To Contact General Surgery Diagnoses Calculus of gallbladder without cholecystitis without obstruction Procedures CONSULT TO GENERAL SURGERY Bridget De Luna MD [address] [place] [address] Referral ID Status Reason Start Date Expiration Date Visits Requested Visits Authorized [id number] Ref Not Required PCP Requested Referral 04/26/2022 04/26/2023 1 1 Specialty Diagnoses / Procedures Referred By Contac t Referred To Contact Diagnoses GERD without esophagitis Screening for colon cancer Procedures CONSULT TO GASTROENTEROLOGY Bridget De Luna MD [address] [place] [address] Referral ID Status Reason Start Date Expiration Date Visits Requested Visits Authorized [id number] Ref Not Required PCP Requested Referral 10/12/2022 10/12/2023 1 1 Specialty Diagnoses / Procedures Referred By Contac t Referred To Contact Diagnoses Pericardial effusion Procedures CONSULT TO PERICARDIAL DISEASE CENTER OFFICE/OUTPATIENT [facility] 60-74 MINUTES Bridget De Luna MD [address] [place] [address] Referral ID Status Reason Start Date Expiration Date Visits Requested Visits Authorized [id number] Authorized PCP Requested Referral 11/21/2022 11/21/2023 1 1 Specialty Diagnoses / Procedures Referred By Contac t Referred To Contact MR IMAGING Diagnoses Biliary cyst Procedures MRI PANC/ARAMIS WO/W IVCON MRI ABDOMEN W/O & W/[place] [address] [place] [address] Mr Imaging Referral ID Status Reason Start Date Expiration Date Visits Requested Visits Authorized [id number] Pending Review Auto-Generat ed Referral 11/25/2022 12/25/2023 1 1 Specialty Diagnoses / Procedures Referred By Contac t Referred To Contact General Surgery Diagnoses RUQ pain GERD without esophagitis Screening for colon cancer Procedures CONSULT TO GENERAL SURGERY OFFICE/OUTPATIENT [facility] 60-74 MINUTES Bridget De Luna MD [address] [place] [address] Referral ID Status Reason Start Date Expiration Date Visits Requested Visits Authorized [id number] Authorized PCP Requested Referral 01/16/2023 01/16/2024 1 1 Specialty Diagnoses / Procedures Referred By Contac t Referred To Contact US IMAGING Diagnoses RUQ pain Procedures US ABD RIGHT UPPER QUADRANT US ABDOMINAL REAL TIME W/IMAGE LIMITED Bridget De Luna MD [address] [place] [address] Us Imaging Referral ID Status Reason Start Date Expiration Date Visits Requested Visits Authorized [id number] Authorized Auto-Generat ed Referral 01/16/2023 02/15/2024 1 1 Specialty Diagnoses / Procedures Referred By Contac t Referred To Contact General Surgery Diagnoses RUQ pain Calculus of gallbladder without cholecystitis without obstruction Procedures CONSULT TO GENERAL SURGERY OFFICE/OUTPATIENT [facility] 60-74 MINUTES Bridget De Luna MD [address] [place] [address] Referral ID Status Reason Start Date Expiration Date Visits Requested Visits Authorized [id number] Authorized PCP Requested Referral 01/23/2023 01/23/2024 1 1 Specialty Diagnoses / Procedures Referred By Contac t Referred To Contact Diagnoses Pelvic pain Procedures CONSULT TO COUNTY JUDGE OFFICE/OUTPATIENT [facility] 60-74 MINUTES Kathy Jansen APRN.[facility] [address] [place] [id number] Referral ID Status Reason Start Date Expiration Date Visits Requested Visits Authorized [id number] Authorized PCP Requested Referral Auto-Generate d Referral 03/02/2023 03/01/2024 1 1 Specialty Diagnoses / Procedures Referred By Contac t Referred To Contact [facility] Diagnoses DDD (degenerative disc disease), lumbar Procedures CONSULT TO PHYSICAL THERAPY PHYSICAL THERAPY EVALUATION HIGH COMPLEX 45 MINS Bridget De Luna MD [address] [place] [id number] [facility] [address] [place] [address] Referral ID Status Reason Start Date Expiration Date Visits Requested Visits Authorized [id number] Pending Review Auto-Generat ed Referral 06/01/2023 05/31/2024 1 1 Specialty Diagnoses / Procedures Referred By Contac t Referred To Contact Urology Diagnoses Dysuria Procedures CONSULT TO UROLOGY OFFICE/OUTPATIENT [facility] 60-74 MINUTES Adelaida Pichardo PA-C [address] [place] [address] Referral ID Status Reason Start Date Expiration Date Visits Requested Visits Authorized [id number] Authorized PCP Requested Referral 06/26/2023 06/25/2024 1 1 Specialty Diagnoses / Procedures Referred By Contac t Referred To Contact CT IMAGING Diagnoses Lung nodules Procedures CT CHEST WO IVCON DIAGNOSTIC COMPUTED TOMOGRAPHY THORAX W/O CNTRST Bridget D eLuna MD [address] [place] [address] [place] [id number] Referral ID Status Reason Start Date Expiration Date V isits Requested Visits Authorized [id number] Closed Auto-Generate d Referral 04/01/2023 02/29/2024 1 1 Specialty Diagnoses / Procedures Referred By Contac t Referred To Contact Gastroenterology Diagnoses Nausea Gallstones Procedures CONSULT TO GASTROENTEROLOGY OFFICE/OUTPATIENT [facility] 60 MINUTES Bridget De Luna MD [address] [place] [address] Onel Mayen MD [address] [place] [address] [place] [address] Referral ID Status Reason Start Date Expiration Date Visits Requested Visits Authorized [id number] Authorized PCP Requested Referral 11/06/2023 11/05/2024 1 1 Specialty Diagnoses / Procedures Referred By Contac t Referred To Contact Diagnoses URI, acute Bro, Cher, RADHA.[employer] WORK[employer] [address] [place] [address] Referral ID Status Reason Start Date Expiration Date Visits Re quested Visits Authorized [id number] Denied 1 1 Specialty Diagnoses / Procedures Referred By Contac t Referred To Contact Gynecology Diagnoses Thickened endometrium Procedures CONSULT TO GYNECOLOGY OFFICE/OUTPATIENT [facility] 60 MINUTES Adelaida Pichardo PA-C [address] [place] [address] Referral ID Status Reason Start Date Expiration Date Visits Requested Visits Authorized [id number] Authorized PCP Requested Referral Auto-Generate d Referral 12/11/2023 12/10/2024 1 1 Referral ID Status Reason Start Date Expiration Date Visits Requested Visits Authorized [id number] Pending Review Auto-Generat ed Referral 04/22/2024 04/22/2025 1 1 Specialty Diagnoses / Procedures Referred By Contac t Referred To Contact XR IMAGING Diagnoses Osteoporosis without current pathological fracture, unspecified osteoporosis type Procedures DXA-AXIAL SKELETON Bridget De Luna MD [address] [place] [address] [facility] [place] Referral ID Status Reason Start Date Expiration Date Visits Requested Visits Authorized [id number] Authorized Auto-Generat ed Referral 04/22/2024 05/22/2025 1 1 Specialty Diagnoses / Procedures Referred By Contac t Referred To Contact Urology Diagnoses Dysuria Procedures CONSULT TO UROLOGY OFFICE/OUTPATIENT NEW HIGH MDM 60 MINUTES Daylin Mendenhall APRN.[employer] [address] [place] [address] Referral ID Status Reason Start Date Expiration Date Visits Requested Visits Authorized [id number] Authorized PCP Requested Referral 04/30/2024 04/30/2025 1 1 Specialty Diagnoses / Procedures Referred By Contac t Referred To Contact CT IMAGING Diagnoses Biliary cyst Procedures CT ABD/PEL WO IVCON CT ABD & PEL[place] [address] [place] [address] [place] [address] Referral ID Status Reason Start Date Expiration Date Visits Requested Visits Authorized [id number] New Request Auto-Generat ed Referral 05/20/2024 06/19/2025 1 1 Specialty Diagnoses / Procedures Referred By Contac t Referred To Contact CT IMAGING Diagnoses Solitary lung nodule Lung nodules Procedures CT CHEST WO IVCON DIAGNOSTIC COMPUTED TOMOGRAPHY THORAX W/O CNTRST Bridget De Luna MD [address] [place] [address] [place] [address] Referral ID Status Reason Start Date Expiration Date Visits Requested Visits Authorized [id number] New Request Auto-Generat ed Referral 08/28/2025 1 1 Specialty Diagnoses / Procedures Referred By Contac t Referred To Contact General Surgery Diagnoses GERD without esophagitis Procedures CONSULT TO GENERAL SURGERY OFFICE/OUTPATIENT NEW HIGH MDM 60 MINUTES Bridget De Luna MD [address] [place] [address] Referral ID Status Reason Start Date Expiration Date Visits Requested Visits Authorized [id number] Authorized PCP Requested Referral 08/07/2024 08/07/2025 1 1 Specialty Diagnoses / Procedures Referred By Contac t Referred To Contact CT IMAGING Diagnoses Flank pain Procedures CT ABD/PEL WO IVCON CT ABD & PELVIS W/O CONTRAST Daylin Mendenhall, FIELD MECHANIC.W[employer] WORKER [address] [place] [address] [place] [address] Referral ID Status Reason Start Date Expiration Date Visits Requested Visits Authorized [id number] Pending Review Auto-Generat ed Referral 10/04/2024 11/03/2025 1 1 Specialty Diagnoses / Procedures Referred By Contac t Referred To Contact XR IMAGING Diagnoses Flank pain Procedures XR ABDOMEN 1V SUPINE RADIOLOGIC EXAM ABDOMEN 1 VIEW Daylin Mendenhall, FIELD MECHANIC.WASH WORKER [address] [place] [address] [place] [address] Referral ID Status Reason Start Date Expiration Date V isits Requested Visits Authorized [id number] Closed Auto-Generate d Referral 10/04/2024 11/03/2025 1 1 Chief Complaint and Reason for Visit Chief Complaint FELL DOWN STAIRS Additional Source Comments INFORMATION SOURCE (unrecogn ized section and content) DATE CREATED AUTHOR 11/20/2021 [facility] DATE CREATED AUTHOR AUTHOR'S ORGANIZ ATION 09/28/2022 [facility] DATE CREATED AUTHOR AUTHOR'S ORGANIZ ATION 03/15/2024 [facility] DATE CREATED AUTHOR AUTHOR'S ORGANIZ ATION 05/30/2024 [facility] DATE CREATED AUTHOR AUTHOR'S ORGANIZ ATION 08/20/2024 [facility] DATE CREATED AUTHOR AUTHOR'S ORGANIZ ATION 05/27/2025 Debbie Mancia [facility] DATE CREATED AUTHOR AUTHOR'S ORGANIZ ATION 06/15/2025 [facility] Source Comments (unrecognize d section and content) In the event this informatio n is protected by the Federal Confidentiality of Alcohol and Drug Abuse Patient Records regulations: The Federal rules restrict any use of the information to criminally investigate or prosecute any alcohol or drug abuse patient.[facility] the event this information is protected by the Federal Confidentiality of Alcohol and Drug Abuse Patient Records regulations: The Federal rules restrict any use of the information to criminally investigate or prosecute any alcohol or drug abuse patient.[facility] HospitalIn the event this information is protected by the Federal Confidentiality of Alcohol and Drug Abuse Patient Records regulations: The Federal rules restrict any use of the information to criminally investigate or prosecute any alcohol or drug abuse patient.[facility] HospitalIn the event this information is protected by the Federal Confidentiality of Alcohol and Drug Abuse Patient Records regulations: The Federal rules restrict any use of the information to criminally investigate or prosecute any alcohol or drug abuse patient.[facility] HospitalIn the event this information is protected by the Federal Confidentiality of Alcohol and Drug Abuse Patient Records regulations: The Federal rules restrict any use of the information to criminally investigate or prosecute any alcohol or drug abuse patient.[facility] HospitalIn the event this information is protected by the Federal Confidentiality of Alcohol and Drug Abuse Patient Records regulations: The Federal rules restrict any use of the information to criminally investigate or prosecute any alcohol or drug abuse patient.[facility] HospitalIn the event this information is protected by the Federal Confidentiality of Alcohol and Drug Abuse Patient Records regulations: The Federal rules restrict any use of the information to criminally investigate or prosecute any alcohol or drug abuse patient.[facility] HospitalIn the event this information is protected by the Federal Confidentiality of Alcohol and Drug Abuse Patient Records regulations: The Federal rules restrict any use of the information to criminally investigate or prosecute any alcohol or drug abuse patient.[facility] HospitalIn the event this information is protected by the Federal Confidentiality of Alcohol and Drug Abuse Patient Records regulations: The Federal rules restrict any use of the information to criminally investigate or prosecute any alcohol or drug abuse patient.[facility] HospitalIn the event this information is protected by the Federal Confidentiality of Alcohol and Drug Abuse Patient Records regulations: The Federal rules restrict any use of the information to criminally investigate or prosecute any alcohol or drug abuse patient.[facility] HospitalIn the event this information is protected by the Federal Confidentiality of Alcohol and Drug Abuse Patient Records regulations: The Federal rules restrict any use of the information to criminally investigate or prosecute any alcohol or drug abuse patient.[facility] Clinic[facility] the event this information is protected by the Federal Confidentiality of Alcohol and Drug Abuse Patient Records regulations: The Federal rules restrict any use of the information to criminally investigate or prosecute any alcohol or drug abuse patient.[facility] HospitalIn the event this information is protected by the Federal Confidentiality of Alcohol and Drug Abuse Patient Records regulations: The Federal rules restrict any use of the information to criminally investigate or prosecute any alcohol or drug abuse patient.[facility] HospitalIn the event this information is protected by the Federal Confidentiality of Alcohol and Drug Abuse Patient Records regulations: The Federal rules restrict any use of the information to criminally investigate or prosecute any alcohol or drug abuse patient.[facility] HospitalIn the event this information is protected by the Federal Confidentiality of Alcohol and Drug Abuse Patient Records regulations: The Federal rules restrict any use of the information to criminally investigate or prosecute any alcohol or drug abuse patient.[facility] HospitalIn the event this information is protected by the Federal Confidentiality of Alcohol and Drug Abuse Patient Records regulations: The Federal rules restrict any use of the information to criminally investigate or prosecute any alcohol or drug abuse patient.[facility] HospitalIn the event this information is protected by the Federal Confidentiality of Alcohol and Drug Abuse Patient Records regulations: The Federal rules restrict any use of the information to criminally investigate or prosecute any alcohol or drug abuse patient.[facility] HospitalIn the event this information is protected by the Federal Confidentiality of Alcohol and Drug Abuse Patient Records regulations: The Federal rules restrict any use of the information to criminally investigate or prosecute any alcohol or drug abuse patient.[facility] HospitalIn the event this information is protected by the Federal Confidentiality of Alcohol and Drug Abuse Patient Records regulations: The Federal rules restrict any use of the information to criminally investigate or prosecute any alcohol or drug abuse patient.[facility] HospitalIn the event this information is protected by the Federal Confidentiality of Alcohol and Drug Abuse Patient Records regulations: The Federal rules restrict any use of the information to criminally investigate or prosecute any alcohol or drug abuse patient.[facility] HospitalIn the event this information is protected by the Federal Confidentiality of Alcohol and Drug Abuse Patient Records regulations: The Federal rules restrict any use of the information to criminally investigate or prosecute any alcohol or drug abuse patient.[facility] HospitalIn the event this information is protected by the Federal Confidentiality of Alcohol and Drug Abuse Patient Records regulations: The Federal rules restrict any use of the information to criminally investigate or prosecute any alcohol or drug abuse patient.[facility] HospitalIn the event this information is protected by the Federal Confidentiality of Alcohol and Drug Abuse Patient Records regulations: The Federal rules restrict any use of the information to criminally investigate or prosecute any alcohol or drug abuse patient.[facility] HospitalIn the event this information is protected by the Federal Confidentiality of Alcohol and Drug Abuse Patient Records regulations: The Federal rules restrict any use of the information to criminally investigate or prosecute any alcohol or drug abuse patient.[facility] HospitalIn the event this information is protected by the Federal Confidentiality of Alcohol and Drug Abuse Patient Records regulations: The Federal rules restrict any use of the information to criminally investigate or prosecute any alcohol or drug abuse patient.[facility] HospitalIn the event this information is protected by the Federal Confidentiality of Alcohol and Drug Abuse Patient Records regulations: The Federal rules restrict any use of the information to criminally investigate or prosecute any alcohol or drug abuse patient.[facility] HospitalIn the event this information is protected by the Federal Confidentiality of Alcohol and Drug Abuse Patient Records regulations: The Federal rules restrict any use of the information to criminally investigate or prosecute any alcohol or drug abuse patient.[facility] HospitalIn the event this information is protected by the Federal Confidentiality of Alcohol and Drug Abuse Patient Records regulations: The Federal rules restrict any use of the information to criminally investigate or prosecute any alcohol or drug abuse patient.[facility] HospitalIn the event this information is protected by the Federal Confidentiality of Alcohol and Drug Abuse Patient Records regulations: The Federal rules restrict any use of the information to criminally investigate or prosecute any alcohol or drug abuse patient.[facility] HospitalIn the event this information is protected by the Federal Confidentiality of Alcohol and Drug Abuse Patient Records regulations: The Federal rules restrict any use of the information to criminally investigate or prosecute any alcohol or drug abuse patient.[facility] HospitalIn the event this information is protected by the Federal Confidentiality of Alcohol and Drug Abuse Patient Records regulations: The Federal rules restrict any use of the information to criminally investigate or prosecute any alcohol or drug abuse patient.[facility] HospitalIn the event this information is protected by the Federal Confidentiality of Alcohol and Drug Abuse Patient Records regulations: The Federal rules restrict any use of the information to criminally investigate or prosecute any alcohol or drug abuse patient.[facility] HospitalIn the event this information is protected by the Federal Confidentiality of Alcohol and Drug Abuse Patient Records regulations: The Federal rules restrict any use of the information to criminally investigate or prosecute any alcohol or drug abuse patient.[facility] HospitalIn the event this information is protected by the Federal Confidentiality of Alcohol and Drug Abuse Patient Records regulations: The Federal rules restrict any use of the information to criminally investigate or prosecute any alcohol or drug abuse patient.[facility] HospitalIn the event this information is protected by the Federal Confidentiality of Alcohol and Drug Abuse Patient Records regulations: The Federal rules restrict any use of the information to criminally investigate or prosecute any alcohol or drug abuse patient.[facility] HospitalIn the event this information is protected by the Federal Confidentiality of Alcohol and Drug Abuse Patient Records regulations: The Federal rules restrict any use of the information to criminally investigate or prosecute any alcohol or drug abuse patient.[facility] HospitalIn the event this information is protected by the Federal Confidentiality of Alcohol and Drug Abuse Patient Records regulations: The Federal rules restrict any use of the information to criminally investigate or prosecute any alcohol or drug abuse patient.[facility] HospitalIn the event this information is protected by the Federal Confidentiality of Alcohol and Drug Abuse Patient Records regulations: The Federal rules restrict any use of the information to criminally investigate or prosecute any alcohol or drug abuse patient.[facility] HospitalIn the event this information is protected by the Federal Confidentiality of Alcohol and Drug Abuse Patient Records regulations: The Federal rules restrict any use of the information to criminally investigate or prosecute any alcohol or drug abuse patient.[facility] HospitalIn the event this information is protected by the Federal Confidentiality of Alcohol and Drug Abuse Patient Records regulations: The Federal rules restrict any use of the information to criminally investigate or prosecute any alcohol or drug abuse patient.[facility] HospitalIn the event this information is protected by the Federal Confidentiality of Alcohol and Drug Abuse Patient Records regulations: The Federal rules restrict any use of the information to criminally investigate or prosecute any alcohol or drug abuse patient.[facility] HospitalIn the event this information is protected by the Federal Confidentiality of Alcohol and Drug Abuse Patient Records regulations: The Federal rules restrict any use of the information to criminally investigate or prosecute any alcohol or drug abuse patient.[facility] HospitalIn the event this information is protected by the Federal Confidentiality of Alcohol and Drug Abuse Patient Records regulations: The Federal rules restrict any use of the information to criminally investigate or prosecute any alcohol or drug abuse patient.[facility] HospitalIn the event this information is protected by the Federal Confidentiality of Alcohol and Drug Abuse Patient Records regulations: The Federal rules restrict any use of the information to criminally investigate or prosecute any alcohol or drug abuse patient.[facility] HospitalIn the event this information is protected by the Federal Confidentiality of Alcohol and Drug Abuse Patient Records regulations: The Federal rules restrict any use of the information to criminally investigate or prosecute any alcohol or drug abuse patient.[facility] HospitalIn the event this information is protected by the Federal Confidentiality of Alcohol and Drug Abuse Patient Records regulations: The Federal rules restrict any use of the information to criminally investigate or prosecute any alcohol or drug abuse patient.[facility] HospitalIn the event this information is protected by the Federal Confidentiality of Alcohol and Drug Abuse Patient Records regulations: The Federal rules restrict any use of the information to criminally investigate or prosecute any alcohol or drug abuse patient.[facility] HospitalIn the event this information is protected by the Federal Confidentiality of Alcohol and Drug Abuse Patient Records regulations: The Federal rules restrict any use of the information to criminally investigate or prosecute any alcohol or drug abuse patient.[facility] HospitalIn the event this information is protected by the Federal Confidentiality of Alcohol and Drug Abuse Patient Records regulations: The Federal rules restrict any use of the information to criminally investigate or prosecute any alcohol or drug abuse patient.[facility] HospitalIn the event this information is protected by the Federal Confidentiality of Alcohol and Drug Abuse Patient Records regulations: The Federal rules restrict any use of the information to criminally investigate or prosecute any alcohol or drug abuse patient.[facility] HospitalIn the event this information is protected by the Federal Confidentiality of Alcohol and Drug Abuse Patient Records regulations: The Federal rules restrict any use of the information to criminally investigate or prosecute any alcohol or drug abuse patient.[facility] HospitalIn the event this information is protected by the Federal Confidentiality of Alcohol and Drug Abuse Patient Records regulations: The Federal rules restrict any use of the information to criminally investigate or prosecute any alcohol or drug abuse patient.[facility] HospitalIn the event this information is protected by the Federal Confidentiality of Alcohol and Drug Abuse Patient Records regulations: The Federal rules restrict any use of the information to criminally investigate or prosecute any alcohol or drug abuse patient.[facility] HospitalIn the event this information is protected by the Federal Confidentiality of Alcohol and Drug Abuse Patient Records regulations: The Federal rules restrict any use of the information to criminally investigate or prosecute any alcohol or drug abuse patient.[facility] HospitalIn the event this information is protected by the Federal Confidentiality of Alcohol and Drug Abuse Patient Records regulations: The Federal rules restrict any use of the information to criminally investigate or prosecute any alcohol or drug abuse patient.[facility] HospitalIn the event this information is protected by the Federal Confidentiality of Alcohol and Drug Abuse Patient Records regulations: The Federal rules restrict any use of the information to criminally investigate or prosecute any alcohol or drug abuse patient.[facility] HospitalIn the event this information is protected by the Federal Confidentiality of Alcohol and Drug Abuse Patient Records regulations: The Federal rules restrict any use of the information to criminally investigate or prosecute any alcohol or drug abuse patient.[facility] HospitalIn the event this information is protected by the Federal Confidentiality of Alcohol and Drug Abuse Patient Records regulations: The Federal rules restrict any use of the information to criminally investigate or prosecute any alcohol or drug abuse patient.[facility] HospitalIn the event this information is protected by the Federal Confidentiality of Alcohol and Drug Abuse Patient Records regulations: The Federal rules restrict any use of the information to criminally investigate or prosecute any alcohol or drug abuse patient.[facility] HospitalIn the event this information is protected by the Federal Confidentiality of Alcohol and Drug Abuse Patient Records regulations: The Federal rules restrict any use of the information to criminally investigate or prosecute any alcohol or drug abuse patient.[facility] HospitalIn the event this information is protected by the Federal Confidentiality of Alcohol and Drug Abuse Patient Records regulations: The Federal rules restrict any use of the information to criminally investigate or prosecute any alcohol or drug abuse patient.[facility] ClinicIn the event this information is protected by the Federal Confidentiality of Alcohol and Drug Abuse Patient Records regulations: The Federal rules restrict any use of the information to criminally investigate or prosecute any alcohol or drug abuse patient.[facility] HospitalIn the event this information is protected by the Federal Confidentiality of Alcohol and Drug Abuse Patient Records regulations: The Federal rules restrict any use of the information to criminally investigate or prosecute any alcohol or drug abuse patient.[facility] HospitalIn the event this information is protected by the Federal Confidentiality of Alcohol and Drug Abuse Patient Records regulations: The Federal rules restrict any use of the information to criminally investigate or prosecute any alcohol or drug abuse patient.[facility] HospitalIn the event this information is protected by the Federal Confidentiality of Alcohol and Drug Abuse Patient Records regulations: The Federal rules restrict any use of the information to criminally investigate or prosecute any alcohol or drug abuse patient.[facility] HospitalIn the event this information is protected by the Federal Confidentiality of Alcohol and Drug Abuse Patient Records regulations: The Federal rules restrict any use of the information to criminally investigate or prosecute any alcohol or drug abuse patient.[facility] HospitalIn the event this information is protected by the Federal Confidentiality of Alcohol and Drug Abuse Patient Records regulations: The Federal rules restrict any use of the information to criminally investigate or prosecute any alcohol or drug abuse patient.[facility] HospitalIn the event this information is protected by the Federal Confidentiality of Alcohol and Drug Abuse Patient Records regulations: The Federal rules restrict any use of the information to criminally investigate or prosecute any alcohol or drug abuse patient.[facility] HospitalIn the event this information is protected by the Federal Confidentiality of Alcohol and Drug Abuse Patient Records regulations: The Federal rules restrict any use of the information to criminally investigate or prosecute any alcohol or drug abuse patient.[facility] HospitalIn the event this information is protected by the Federal Confidentiality of Alcohol and Drug Abuse Patient Records regulations: The Federal rules restrict any use of the information to criminally investigate or prosecute any alcohol or drug abuse patient.[facility] HospitalIn the event this information is protected by the Federal Confidentiality of Alcohol and Drug Abuse Patient Records regulations: The Federal rules restrict any use of the information to criminally investigate or prosecute any alcohol or drug abuse patient.[facility] HospitalIn the event this information is protected by the Federal Confidentiality of Alcohol and Drug Abuse Patient Records regulations: The Federal rules restrict any use of the information to criminally investigate or prosecute any alcohol or drug abuse patient.[facility] HospitalIn the event this information is protected by the Federal Confidentiality of Alcohol and Drug Abuse Patient Records regulations: The Federal rules restrict any use of the information to criminally investigate or prosecute any alcohol or drug abuse patient.[facility] HospitalIn the event this information is protected by the Federal Confidentiality of Alcohol and Drug Abuse Patient Records regulations: The Federal rules restrict any use of the information to criminally investigate or prosecute any alcohol or drug abuse patient.[facility] HospitalIn the event this information is protected by the Federal Confidentiality of Alcohol and Drug Abuse Patient Records regulations: The Federal rules restrict any use of the information to criminally investigate or prosecute any alcohol or drug abuse patient.[facility] HospitalIn the event this information is protected by the Federal Confidentiality of Alcohol and Drug Abuse Patient Records regulations: The Federal rules restrict any use of the information to criminally investigate or prosecute any alcohol or drug abuse patient.[facility] HospitalIn the event this information is protected by the Federal Confidentiality of Alcohol and Drug Abuse Patient Records regulations: The Federal rules restrict any use of the information to criminally investigate or prosecute any alcohol or drug abuse patient.[facility] HospitalIn the event this information is protected by the Federal Confidentiality of Alcohol and Drug Abuse Patient Records regulations: The Federal rules restrict any use of the information to criminally investigate or prosecute any alcohol or drug abuse patient.[facility] HospitalIn the event this information is protected by the Federal Confidentiality of Alcohol and Drug Abuse Patient Records regulations: The Federal rules restrict any use of the information to criminally investigate or prosecute any alcohol or drug abuse patient.[facility] HospitalIn the event this information is protected by the Federal Confidentiality of Alcohol and Drug Abuse Patient Records regulations: The Federal rules restrict any use of the information to criminally investigate or prosecute any alcohol or drug abuse patient.[facility] HospitalIn the event this information is protected by the Federal Confidentiality of Alcohol and Drug Abuse Patient Records regulations: The Federal rules restrict any use of the information to criminally investigate or prosecute any alcohol or drug abuse patient.[facility] HospitalIn the event this information is protected by the Federal Confidentiality of Alcohol and Drug Abuse Patient Records regulations: The Federal rules restrict any use of the information to criminally investigate or prosecute any alcohol or drug abuse patient.[facility] HospitalIn the event this information is protected by the Federal Confidentiality of Alcohol and Drug Abuse Patient Records regulations: The Federal rules restrict any use of the information to criminally investigate or prosecute any alcohol or drug abuse patient.[facility] HospitalIn the event this information is protected by the Federal Confidentiality of Alcohol and Drug Abuse Patient Records regulations: The Federal rules restrict any use of the information to criminally investigate or prosecute any alcohol or drug abuse patient.[facility] HospitalIn the event this information is protected by the Federal Confidentiality of Alcohol and Drug Abuse Patient Records regulations: The Federal rules restrict any use of the information to criminally investigate or prosecute any alcohol or drug abuse patient.[facility] HospitalIn the event this information is protected by the Federal Confidentiality of Alcohol and Drug Abuse Patient Records regulations: The Federal rules restrict any use of the information to criminally investigate or prosecute any alcohol or drug abuse patient.[facility] HospitalIn the event this information is protected by the Federal Confidentiality of Alcohol and Drug Abuse Patient Records regulations: The Federal rules restrict any use of the information to criminally investigate or prosecute any alcohol or drug abuse patient.[facility] HospitalIn the event this information is protected by the Federal Confidentiality of Alcohol and Drug Abuse Patient Records regulations: The Federal rules restrict any use of the information to criminally investigate or prosecute any alcohol or drug abuse patient.[facility] HospitalIn the event this information is protected by the Federal Confidentiality of Alcohol and Drug Abuse Patient Records regulations: The Federal rules restrict any use of the information to criminally investigate or prosecute any alcohol or drug abuse patient.[facility] HospitalIn the event this information is protected by the Federal Confidentiality of Alcohol and Drug Abuse Patient Records regulations: The Federal rules restrict any use of the information to criminally investigate or prosecute any alcohol or drug abuse patient.[facility] HospitalIn the event this information is protected by the Federal Confidentiality of Alcohol and Drug Abuse Patient Records regulations: The Federal rules restrict any use of the information to criminally investigate or prosecute any alcohol or drug abuse patient.[facility] HospitalIn the event this information is protected by the Federal Confidentiality of Alcohol and Drug Abuse Patient Records regulations: The Federal rules restrict any use of the information to criminally investigate or prosecute any alcohol or drug abuse patient.[facility] HospitalIn the event this information is protected by the Federal Confidentiality of Alcohol and Drug Abuse Patient Records regulations: The Federal rules restrict any use of the information to criminally investigate or prosecute any alcohol or drug abuse patient.[facility] HospitalIn the event this information is protected by the Federal Confidentiality of Alcohol and Drug Abuse Patient Records regulations: The Federal rules restrict any use of the information to criminally investigate or prosecute any alcohol or drug abuse patient.[facility] HospitalIn the event this information is protected by the Federal Confidentiality of Alcohol and Drug Abuse Patient Records regulations: The Federal rules restrict any use of the information to criminally investigate or prosecute any alcohol or drug abuse patient.[facility] HospitalIn the event this information is protected by the Federal Confidentiality of Alcohol and Drug Abuse Patient Records regulations: The Federal rules restrict any use of the information to criminally investigate or prosecute any alcohol or drug abuse patient.[facility] HospitalIn the event this information is protected by the Federal Confidentiality of Alcohol and Drug Abuse Patient Records regulations: The Federal rules restrict any use of the information to criminally investigate or prosecute any alcohol or drug abuse patient.[facility] HospitalIn the event this information is protected by the Federal Confidentiality of Alcohol and Drug Abuse Patient Records regulations: The Federal rules restrict any use of the information to criminally investigate or prosecute any alcohol or drug abuse patient.[facility] HospitalIn the event this information is protected by the Federal Confidentiality of Alcohol and Drug Abuse Patient Records regulations: The Federal rules restrict any use of the information to criminally investigate or prosecute any alcohol or drug abuse patient.[facility] HospitalIn the event this information is protected by the Federal Confidentiality of Alcohol and Drug Abuse Patient Records regulations: The Federal rules restrict any use of the information to criminally investigate or prosecute any alcohol or drug abuse patient.[facility] HospitalIn the event this information is protected by the Federal Confidentiality of Alcohol and Drug Abuse Patient Records regulations: The Federal rules restrict any use of the information to criminally investigate or prosecute any alcohol or drug abuse patient.[facility] HospitalIn the event this information is protected by the Federal Confidentiality of Alcohol and Drug Abuse Patient Records regulations: The Federal rules restrict any use of the information to criminally investigate or prosecute any alcohol or drug abuse patient.[facility] HospitalIn the event this information is protected by the Federal Confidentiality of Alcohol and Drug Abuse Patient Records regulations: The Federal rules restrict any use of the information to criminally investigate or prosecute any alcohol or drug abuse patient.[facility] HospitalIn the event this information is protected by the Federal Confidentiality of Alcohol and Drug Abuse Patient Records regulations: The Federal rules restrict any use of the information to criminally investigate or prosecute any alcohol or drug abuse patient.[facility] HospitalIn the event this information is protected by the Federal Confidentiality of Alcohol and Drug Abuse Patient Records regulations: The Federal rules restrict any use of the information to criminally investigate or prosecute any alcohol or drug abuse patient.[facility] HospitalIn the event this information is protected by the Federal Confidentiality of Alcohol and Drug Abuse Patient Records regulations: The Federal rules restrict any use of the information to criminally investigate or prosecute any alcohol or drug abuse patient.[facility] HospitalIn the event this information is protected by the Federal Confidentiality of Alcohol and Drug Abuse Patient Records regulations: The Federal rules restrict any use of the information to criminally investigate or prosecute any alcohol or drug abuse patient.[facility] HospitalIn the event this information is protected by the Federal Confidentiality of Alcohol and Drug Abuse Patient Records regulations: The Federal rules restrict any use of the information to criminally investigate or prosecute any alcohol or drug abuse patient.[facility] HospitalIn the event this information is protected by the Federal Confidentiality of Alcohol and Drug Abuse Patient Records regulations: The Federal rules restrict any use of the information to criminally investigate or prosecute any alcohol or drug abuse patient.[facility] HospitalIn the event this information is protected by the Federal Confidentiality of Alcohol and Drug Abuse Patient Records regulations: The Federal rules restrict any use of the information to criminally investigate or prosecute any alcohol or drug abuse patient.[facility] HospitalIn the event this information is protected by the Federal Confidentiality of Alcohol and Drug Abuse Patient Records regulations: The Federal rules restrict any use of the information to criminally investigate or prosecute any alcohol or drug abuse patient.[facility]In the event this information is protected by the Federal Confidentiality of Alcohol and Drug Abuse Patient Records regulations: The Federal rules restrict any use of the information to criminally investigate or prosecute any alcohol or drug abuse patient.[facility] HospitalIn the event this information is protected by the Federal Confidentiality of Alcohol and Drug Abuse Patient Records regulations: The Federal rules restrict any use of the information to criminally investigate or prosecute any alcohol or drug abuse patient.[facility] HospitalIn the event this information is protected by the Federal Confidentiality of Alcohol and Drug Abuse Patient Records regulations: The Federal rules restrict any use of the information to criminally investigate or prosecute any alcohol or drug abuse patient.[facility] HospitalIn the event this information is protected by the Federal Confidentiality of Alcohol and Drug Abuse Patient Records regulations: The Federal rules restrict any use of the information to criminally investigate or prosecute any alcohol or drug abuse patient.[facility] HospitalIn the event this information is protected by the Federal Confidentiality of Alcohol and Drug Abuse Patient Records regulations: The Federal rules restrict any use of the information to criminally investigate or prosecute any alcohol or drug abuse patient.[facility] HospitalIn the event this information is protected by the Federal Confidentiality of Alcohol and Drug Abuse Patient Records regulations: The Federal rules restrict any use of the information to criminally investigate or prosecute any alcohol or drug abuse patient.[facility] HospitalIn the event this information is protected by the Federal Confidentiality of Alcohol and Drug Abuse Patient Records regulations: The Federal rules restrict any use of the information to criminally investigate or prosecute any alcohol or drug abuse patient.[facility] HospitalIn the event this information is protected by the Federal Confidentiality of Alcohol and Drug Abuse Patient Records regulations: The Federal rules restrict any use of the information to criminally investigate or prosecute any alcohol or drug abuse patient.[facility] HospitalIn the event this information is protected by the Federal Confidentiality of Alcohol and Drug Abuse Patient Records regulations: The Federal rules restrict any use of the information to criminally investigate or prosecute any alcohol or drug abuse patient.[facility] HospitalIn the event this information is protected by the Federal Confidentiality of Alcohol and Drug Abuse Patient Records regulations: The Federal rules restrict any use of the information to criminally investigate or prosecute any alcohol or drug abuse patient.[facility] HospitalIn the event this information is protected by the Federal Confidentiality of Alcohol and Drug Abuse Patient Records regulations: The Federal rules restrict any use of the information to criminally investigate or prosecute any alcohol or drug abuse patient.[facility] HospitalIn the event this information is protected by the Federal Confidentiality of Alcohol and Drug Abuse Patient Records regulations: The Federal rules restrict any use of the information to criminally investigate or prosecute any alcohol or drug abuse patient.[facility] HospitalIn the event this information is protected by the Federal Confidentiality of Alcohol and Drug Abuse Patient Records regulations: The Federal rules restrict any use of the information to criminally investigate or prosecute any alcohol or drug abuse patient.[facility] HospitalIn the event this information is protected by the Federal Confidentiality of Alcohol and Drug Abuse Patient Records regulations: The Federal rules restrict any use of the information to criminally investigate or prosecute any alcohol or drug abuse patient.[facility] HospitalIn the event this information is protected by the Federal Confidentiality of Alcohol and Drug Abuse Patient Records regulations: The Federal rules restrict any use of the information to criminally investigate or prosecute any alcohol or drug abuse patient.[facility] HospitalIn the event this information is protected by the Federal Confidentiality of Alcohol and Drug Abuse Patient Records regulations: The Federal rules restrict any use of the information to criminally investigate or prosecute any alcohol or drug abuse patient.[facility] HospitalIn the event this information is protected by the Federal Confidentiality of Alcohol and Drug Abuse Patient Records regulations: The Federal rules restrict any use of the information to criminally investigate or prosecute any alcohol or drug abuse patient.[facility] HospitalIn the event this information is protected by the Federal Confidentiality of Alcohol and Drug Abuse Patient Records regulations: The Federal rules restrict any use of the information to criminally investigate or prosecute any alcohol or drug abuse patient.[facility] HospitalIn the event this information is protected by the Federal Confidentiality of Alcohol and Drug Abuse Patient Records regulations: The Federal rules restrict any use of the information to criminally investigate or prosecute any alcohol or drug abuse patient.[facility] HospitalIn the event this information is protected by the Federal Confidentiality of Alcohol and Drug Abuse Patient Records regulations: The Federal rules restrict any use of the information to criminally investigate or prosecute any alcohol or drug abuse patient.[facility] HospitalIn the event this information is protected by the Federal Confidentiality of Alcohol and Drug Abuse Patient Records regulations: The Federal rules restrict any use of the information to criminally investigate or prosecute any alcohol or drug abuse patient.[facility] HospitalIn the event this information is protected by the Federal Confidentiality of Alcohol and Drug Abuse Patient Records regulations: The Federal rules restrict any use of the information to criminally investigate or prosecute any alcohol or drug abuse patient.[facility] HospitalIn the event this information is protected by the Federal Confidentiality of Alcohol and Drug Abuse Patient Records regulations: The Federal rules restrict any use of the information to criminally investigate or prosecute any alcohol or drug abuse patient.[facility] HospitalIn the event this information is protected by the Federal Confidentiality of Alcohol and Drug Abuse Patient Records regulations: The Federal rules restrict any use of the information to criminally investigate or prosecute any alcohol or drug abuse patient.[facility] HospitalIn the event this information is protected by the Federal Confidentiality of Alcohol and Drug Abuse Patient Records regulations: The Federal rules restrict any use of the information to criminally investigate or prosecute any alcohol or drug abuse patient.[facility] HospitalIn the event this information is protected by the Federal Confidentiality of Alcohol and Drug Abuse Patient Records regulations: The Federal rules restrict any use of the information to criminally investigate or prosecute any alcohol or drug abuse patient.[facility] HospitalIn the event this information is protected by the Federal Confidentiality of Alcohol and Drug Abuse Patient Records regulations: The Federal rules restrict any use of the information to criminally investigate or prosecute any alcohol or drug abuse patient.[facility] HospitalIn the event this information is protected by the Federal Confidentiality of Alcohol and Drug Abuse Patient Records regulations: The Federal rules restrict any use of the information to criminally investigate or prosecute any alcohol or drug abuse patient.[facility] HospitalIn the event this information is protected by the Federal Confidentiality of Alcohol and Drug Abuse Patient Records regulations: The Federal rules restrict any use of the information to criminally investigate or prosecute any alcohol or drug abuse patient.[facility] HospitalIn the event this information is protected by the Federal Confidentiality of Alcohol and Drug Abuse Patient Records regulations: The Federal rules restrict any use of the information to criminally investigate or prosecute any alcohol or drug abuse patient.[facility] HospitalIn the event this information is protected by the Federal Confidentiality of Alcohol and Drug Abuse Patient Records regulations: The Federal rules restrict any use of the information to criminally investigate or prosecute any alcohol or drug abuse patient.[facility] HospitalIn the event this information is protected by the Federal Confidentiality of Alcohol and Drug Abuse Patient Records regulations: The Federal rules restrict any use of the information to criminally investigate or prosecute any alcohol or drug abuse patient.[facility] HospitalIn the event this information is protected by the Federal Confidentiality of Alcohol and Drug Abuse Patient Records regulations: The Federal rules restrict any use of the information to criminally investigate or prosecute any alcohol or drug abuse patient.[facility] HospitalIn the event this information is protected by the Federal Confidentiality of Alcohol and Drug Abuse Patient Records regulations: The Federal rules restrict any use of the information to criminally investigate or prosecute any alcohol or drug abuse patient.[facility] HospitalIn the event this information is protected by the Federal Confidentiality of Alcohol and Drug Abuse Patient Records regulations: The Federal rules restrict any use of the information to criminally investigate or prosecute any alcohol or drug abuse patient.[facility] HospitalIn the event this information is protected by the Federal Confidentiality of Alcohol and Drug Abuse Patient Records regulations: The Federal rules restrict any use of the information to criminally investigate or prosecute any alcohol or drug abuse patient.[facility] HospitalIn the event this information is protected by the Federal Confidentiality of Alcohol and Drug Abuse Patient Records regulations: The Federal rules restrict any use of the information to criminally investigate or prosecute any alcohol or drug abuse patient.[facility] HospitalIn the event this information is protected by the Federal Confidentiality of Alcohol and Drug Abuse Patient Records regulations: The Federal rules restrict any use of the information to criminally investigate or prosecute any alcohol or drug abuse patient.[facility] HospitalIn the event this information is protected by the Federal Confidentiality of Alcohol and Drug Abuse Patient Records regulations: The Federal rules restrict any use of the information to criminally investigate or prosecute any alcohol or drug abuse patient.[facility] HospitalIn the event this information is protected by the Federal Confidentiality of Alcohol and Drug Abuse Patient Records regulations: The Federal rules restrict any use of the information to criminally investigate or prosecute any alcohol or drug abuse patient.[facility] HospitalIn the event this information is protected by the Federal Confidentiality of Alcohol and Drug Abuse Patient Records regulations: The Federal rules restrict any use of the information to criminally investigate or prosecute any alcohol or drug abuse patient.[facility] HospitalIn the event this information is protected by the Federal Confidentiality of Alcohol and Drug Abuse Patient Records regulations: The Federal rules restrict any use of the information to criminally investigate or prosecute any alcohol or drug abuse patient.[facility] HospitalIn the event this information is protected by the Federal Confidentiality of Alcohol and Drug Abuse Patient Records regulations: The Federal rules restrict any use of the information to criminally investigate or prosecute any alcohol or drug abuse patient.[facility] HospitalIn the event this information is protected by the Federal Confidentiality of Alcohol and Drug Abuse Patient Records regulations: The Federal rules restrict any use of the information to criminally investigate or prosecute any alcohol or drug abuse patient.[facility] HospitalIn the event this information is protected by the Federal Confidentiality of Alcohol and Drug Abuse Patient Records regulations: The Federal rules restrict any use of the information to criminally investigate or prosecute any alcohol or drug abuse patient.[facility] HospitalIn the event this information is protected by the Federal Confidentiality of Alcohol and Drug Abuse Patient Records regulations: The Federal rules restrict any use of the information to criminally investigate or prosecute any alcohol or drug abuse patient.[facility] HospitalIn the event this information is protected by the Federal Confidentiality of Alcohol and Drug Abuse Patient Records regulations: The Federal rules restrict any use of the information to criminally investigate or prosecute any alcohol or drug abuse patient.[facility] HospitalIn the event this information is protected by the Federal Confidentiality of Alcohol and Drug Abuse Patient Records regulations: The Federal rules restrict any use of the information to criminally investigate or prosecute any alcohol or drug abuse patient.[facility] HospitalIn the event this information is protected by the Federal Confidentiality of Alcohol and Drug Abuse Patient Records regulations: The Federal rules restrict any use of the information to criminally investigate or prosecute any alcohol or drug abuse patient.[facility] HospitalIn the event this information is protected by the Federal Confidentiality of Alcohol and Drug Abuse Patient Records regulations: The Federal rules restrict any use of the information to criminally investigate or prosecute any alcohol or drug abuse patient.[facility]In the event this information is protected by the Federal Confidentiality of Alcohol and Drug Abuse Patient Records regulations: The Federal rules restrict any use of the information to criminally investigate or prosecute any alcohol or drug abuse patient.[facility] HospitalIn the event this information is protected by the Federal Confidentiality of Alcohol and Drug Abuse Patient Records regulations: The Federal rules restrict any use of the information to criminally investigate or prosecute any alcohol or drug abuse patient.[facility] HospitalIn the event this information is protected by the Federal Confidentiality of Alcohol and Drug Abuse Patient Records regulations: The Federal rules restrict any use of the information to criminally investigate or prosecute any alcohol or drug abuse patient.[facility] HospitalIn the event this information is protected by the Federal Confidentiality of Alcohol and Drug Abuse Patient Records regulations: The Federal rules restrict any use of the information to criminally investigate or prosecute any alcohol or drug abuse patient.[facility] HospitalIn the event this information is protected by the Federal Confidentiality of Alcohol and Drug Abuse Patient Records regulations: The Federal rules restrict any use of the information to criminally investigate or prosecute any alcohol or drug abuse patient.[facility] HospitalIn the event this information is protected by the Federal Confidentiality of Alcohol and Drug Abuse Patient Records regulations: The Federal rules restrict any use of the information to criminally investigate or prosecute any alcohol or drug abuse patient.[facility] HospitalIn the event this information is protected by the Federal Confidentiality of Alcohol and Drug Abuse Patient Records regulations: The Federal rules restrict any use of the information to criminally investigate or prosecute any alcohol or drug abuse patient.[facility] HospitalIn the event this information is protected by the Federal Confidentiality of Alcohol and Drug Abuse Patient Records regulations: The Federal rules restrict any use of the information to criminally investigate or prosecute any alcohol or drug abuse patient.[facility] HospitalIn the event this information is protected by the Federal Confidentiality of Alcohol and Drug Abuse Patient Records regulations: The Federal rules restrict any use of the information to criminally investigate or prosecute any alcohol or drug abuse patient.[facility] HospitalIn the event this information is protected by the Federal Confidentiality of Alcohol and Drug Abuse Patient Records regulations: The Federal rules restrict any use of the information to criminally investigate or prosecute any alcohol or drug abuse patient.[facility] HospitalIn the event this information is protected by the Federal Confidentiality of Alcohol and Drug Abuse Patient Records regulations: The Federal rules restrict any use of the information to criminally investigate or prosecute any alcohol or drug abuse patient.[facility] HospitalIn the event this information is protected by the Federal Confidentiality of Alcohol and Drug Abuse Patient Records regulations: The Federal rules restrict any use of the information to criminally investigate or prosecute any alcohol or drug abuse patient.[facility] HospitalIn the event this information is protected by the Federal Confidentiality of Alcohol and Drug Abuse Patient Records regulations: The Federal rules restrict any use of the information to criminally investigate or prosecute any alcohol or drug abuse patient.[facility] HospitalIn the event this information is protected by the Federal Confidentiality of Alcohol and Drug Abuse Patient Records regulations: The Federal rules restrict any use of the information to criminally investigate or prosecute any alcohol or drug abuse patient.[facility] HospitalIn the event this information is protected by the Federal Confidentiality of Alcohol and Drug Abuse Patient Records regulations: The Federal rules restrict any use of the information to criminally investigate or prosecute any alcohol or drug abuse patient.[facility] HospitalIn the event this information is protected by the Federal Confidentiality of Alcohol and Drug Abuse Patient Records regulations: The Federal rules restrict any use of the information to criminally investigate or prosecute any alcohol or drug abuse patient.[facility] HospitalIn the event this information is protected by the Federal Confidentiality of Alcohol and Drug Abuse Patient Records regulations: The Federal rules restrict any use of the information to criminally investigate or prosecute any alcohol or drug abuse patient.[facility] HospitalIn the event this information is protected by the Federal Confidentiality of Alcohol and Drug Abuse Patient Records regulations: The Federal rules restrict any use of the information to criminally investigate or prosecute any alcohol or drug abuse patient.[facility] HospitalIn the event this information is protected by the Federal Confidentiality of Alcohol and Drug Abuse Patient Records regulations: The Federal rules restrict any use of the information to criminally investigate or prosecute any alcohol or drug abuse patient.[facility] HospitalIn the event this information is protected by the Federal Confidentiality of Alcohol and Drug Abuse Patient Records regulations: The Federal rules restrict any use of the information to criminally investigate or prosecute any alcohol or drug abuse patient.[facility] HospitalIn the event this information is protected by the Federal Confidentiality of Alcohol and Drug Abuse Patient Records regulations: The Federal rules restrict any use of the information to criminally investigate or prosecute any alcohol or drug abuse patient.[facility] HospitalIn the event this information is protected by the Federal Confidentiality of Alcohol and Drug Abuse Patient Records regulations: The Federal rules restrict any use of the information to criminally investigate or prosecute any alcohol or drug abuse patient.[facility] HospitalIn the event this information is protected by the Federal Confidentiality of Alcohol and Drug Abuse Patient Records regulations: The Federal rules restrict any use of the information to criminally investigate or prosecute any alcohol or drug abuse patient.[facility] HospitalIn the event this information is protected by the Federal Confidentiality of Alcohol and Drug Abuse Patient Records regulations: The Federal rules restrict any use of the information to criminally investigate or prosecute any alcohol or drug abuse patient.[facility] HospitalIn the event this information is protected by the Federal Confidentiality of Alcohol and Drug Abuse Patient Records regulations: The Federal rules restrict any use of the information to criminally investigate or prosecute any alcohol or drug abuse patient.[facility] HospitalIn the event this information is protected by the Federal Confidentiality of Alcohol and Drug Abuse Patient Records regulations: The Federal rules restrict any use of the information to criminally investigate or prosecute any alcohol or drug abuse patient.[facility] HospitalIn the event this information is protected by the Federal Confidentiality of Alcohol and Drug Abuse Patient Records regulations: The Federal rules restrict any use of the information to criminally investigate or prosecute any alcohol or drug abuse patient.[facility] HospitalIn the event this information is protected by the Federal Confidentiality of Alcohol and Drug Abuse Patient Records regulations: The Federal rules restrict any use of the information to criminally investigate or prosecute any alcohol or drug abuse patient.[facility] HospitalIn the event this information is protected by the Federal Confidentiality of Alcohol and Drug Abuse Patient Records regulations: The Federal rules restrict any use of the information to criminally investigate or prosecute any alcohol or drug abuse patient.[facility] HospitalIn the event this information is protected by the Federal Confidentiality of Alcohol and Drug Abuse Patient Records regulations: The Federal rules restrict any use of the information to criminally investigate or prosecute any alcohol or drug abuse patient.[facility] HospitalIn the event this information is protected by the Federal Confidentiality of Alcohol and Drug Abuse Patient Records regulations: The Federal rules restrict any use of the information to criminally investigate or prosecute any alcohol or drug abuse patient.[facility] HospitalIn the event this information is protected by the Federal Confidentiality of Alcohol and Drug Abuse Patient Records regulations: The Federal rules restrict any use of the information to criminally investigate or prosecute any alcohol or drug abuse patient.[facility] HospitalIn the event this information is protected by the Federal Confidentiality of Alcohol and Drug Abuse Patient Records regulations: The Federal rules restrict any use of the information to criminally investigate or prosecute any alcohol or drug abuse patient.[facility] HospitalIn the event this information is protected by the Federal Confidentiality of Alcohol and Drug Abuse Patient Records regulations: The Federal rules restrict any use of the information to criminally investigate or prosecute any alcohol or drug abuse patient.[facility] HospitalIn the event this information is protected by the Federal Confidentiality of Alcohol and Drug Abuse Patient Records regulations: The Federal rules restrict any use of the information to criminally investigate or prosecute any alcohol or drug abuse patient.[facility] HospitalIn the event this information is protected by the Federal Confidentiality of Alcohol and Drug Abuse Patient Records regulations: The Federal rules restrict any use of the information to criminally investigate or prosecute any alcohol or drug abuse patient.[facility] HospitalIn the event this information is protected by the Federal Confidentiality of Alcohol and Drug Abuse Patient Records regulations: The Federal rules restrict any use of the information to criminally investigate or prosecute any alcohol or drug abuse patient.[facility] HospitalIn the event this information is protected by the Federal Confidentiality of Alcohol and Drug Abuse Patient Records regulations: The Federal rules restrict any use of the information to criminally investigate or prosecute any alcohol or drug abuse patient.[facility] HospitalIn the event this information is protected by the Federal Confidentiality of Alcohol and Drug Abuse Patient Records regulations: The Federal rules restrict any use of the information to criminally investigate or prosecute any alcohol or drug abuse patient.[facility] HospitalIn the event this information is protected by the Federal Confidentiality of Alcohol and Drug Abuse Patient Records regulations: The Federal rules restrict any use of the information to criminally investigate or prosecute any alcohol or drug abuse patient.[facility] HospitalIn the event this information is protected by the Federal Confidentiality of Alcohol and Drug Abuse Patient Records regulations: The Federal rules restrict any use of the information to criminally investigate or prosecute any alcohol or drug abuse patient.[facility] HospitalIn the event this information is protected by the Federal Confidentiality of Alcohol and Drug Abuse Patient Records regulations: The Federal rules restrict any use of the information to criminally investigate or prosecute any alcohol or drug abuse patient.[facility] HospitalIn the event this information is protected by the Federal Confidentiality of Alcohol and Drug Abuse Patient Records regulations: The Federal rules restrict any use of the information to criminally investigate or prosecute any alcohol or drug abuse patient.[facility] HospitalIn the event this information is protected by the Federal Confidentiality of Alcohol and Drug Abuse Patient Records regulations: The Federal rules restrict any use of the information to criminally investigate or prosecute any alcohol or drug abuse patient.[facility] HospitalIn the event this information is protected by the Federal Confidentiality of Alcohol and Drug Abuse Patient Records regulations: The Federal rules restrict any use of the information to criminally investigate or prosecute any alcohol or drug abuse patient.[facility] HospitalIn the event this information is protected by the Federal Confidentiality of Alcohol and Drug Abuse Patient Records regulations: The Federal rules restrict any use of the information to criminally investigate or prosecute any alcohol or drug abuse patient.[facility] HospitalIn the event this information is protected by the Federal Confidentiality of Alcohol and Drug Abuse Patient Records regulations: The Federal rules restrict any use of the information to criminally investigate or prosecute any alcohol or drug abuse patient.[facility] HospitalIn the event this information is protected by the Federal Confidentiality of Alcohol and Drug Abuse Patient Records regulations: The Federal rules restrict any use of the information to criminally investigate or prosecute any alcohol or drug abuse patient.[facility] HospitalIn the event this information is protected by the Federal Confidentiality of Alcohol and Drug Abuse Patient Records regulations: The Federal rules restrict any use of the information to criminally investigate or prosecute any alcohol or drug abuse patient.[facility] HospitalIn the event this information is protected by the Federal Confidentiality of Alcohol and Drug Abuse Patient Records regulations: The Federal rules restrict any use of the information to criminally investigate or prosecute any alcohol or drug abuse patient.[facility]In the event this information is protected by the Federal Confidentiality of Alcohol and Drug Abuse Patient Records regulations: The Federal rules restrict any use of the information to criminally investigate or prosecute any alcohol or drug abuse patient.[facility] HospitalIn the event this information is protected by the Federal Confidentiality of Alcohol and Drug Abuse Patient Records regulations: The Federal rules restrict any use of the information to criminally investigate or prosecute any alcohol or drug abuse patient.[facility] HospitalIn the event this information is protected by the Federal Confidentiality of Alcohol and Drug Abuse Patient Records regulations: The Federal rules restrict any use of the information to criminally investigate or prosecute any alcohol or drug abuse patient.[facility] HospitalIn the event this information is protected by the Federal Confidentiality of Alcohol and Drug Abuse Patient Records regulations: The Federal rules restrict any use of the information to criminally investigate or prosecute any alcohol or drug abuse patient.[facility] HospitalIn the event this information is protected by the Federal Confidentiality of Alcohol and Drug Abuse Patient Records regulations: The Federal rules restrict any use of the information to criminally investigate or prosecute any alcohol or drug abuse patient.[facility] HospitalIn the event this information is protected by the Federal Confidentiality of Alcohol and Drug Abuse Patient Records regulations: The Federal rules restrict any use of the information to criminally investigate or prosecute any alcohol or drug abuse patient.[facility] HospitalIn the event this information is protected by the Federal Confidentiality of Alcohol and Drug Abuse Patient Records regulations: The Federal rules restrict any use of the information to criminally investigate or prosecute any alcohol or drug abuse patient.[facility] HospitalIn the event this information is protected by the Federal Confidentiality of Alcohol and Drug Abuse Patient Records regulations: The Federal rules restrict any use of the information to criminally investigate or prosecute any alcohol or drug abuse patient.[facility] HospitalIn the event this information is protected by the Federal Confidentiality of Alcohol and Drug Abuse Patient Records regulations: The Federal rules restrict any use of the information to criminally investigate or prosecute any alcohol or drug abuse patient.[facility] HospitalIn the event this information is protected by the Federal Confidentiality of Alcohol and Drug Abuse Patient Records regulations: The Federal rules restrict any use of the information to criminally investigate or prosecute any alcohol or drug abuse patient.[facility] HospitalIn the event this information is protected by the Federal Confidentiality of Alcohol and Drug Abuse Patient Records regulations: The Federal rules restrict any use of the information to criminally investigate or prosecute any alcohol or drug abuse patient.[facility] HospitalIn the event this information is protected by the Federal Confidentiality of Alcohol and Drug Abuse Patient Records regulations: The Federal rules restrict any use of the information to criminally investigate or prosecute any alcohol or drug abuse patient.[facility] HospitalIn the event this information is protected by the Federal Confidentiality of Alcohol and Drug Abuse Patient Records regulations: The Federal rules restrict any use of the information to criminally investigate or prosecute any alcohol or drug abuse patient.[facility] HospitalIn the event this information is protected by the Federal Confidentiality of Alcohol and Drug Abuse Patient Records regulations: The Federal rules restrict any use of the information to criminally investigate or prosecute any alcohol or drug abuse patient.[facility] HospitalIn the event this information is protected by the Federal Confidentiality of Alcohol and Drug Abuse Patient Records regulations: The Federal rules restrict any use of the information to criminally investigate or prosecute any alcohol or drug abuse patient.[facility] HospitalIn the event this information is protected by the Federal Confidentiality of Alcohol and Drug Abuse Patient Records regulations: The Federal rules restrict any use of the information to criminally investigate or prosecute any alcohol or drug abuse patient.[facility] HospitalIn the event this information is protected by the Federal Confidentiality of Alcohol and Drug Abuse Patient Records regulations: The Federal rules restrict any use of the information to criminally investigate or prosecute any alcohol or drug abuse patient.[facility] HospitalIn the event this information is protected by the Federal Confidentiality of Alcohol and Drug Abuse Patient Records regulations: The Federal rules restrict any use of the information to criminally investigate or prosecute any alcohol or drug abuse patient.[facility] HospitalIn the event this information is protected by the Federal Confidentiality of Alcohol and Drug Abuse Patient Records regulations: The Federal rules restrict any use of the information to criminally investigate or prosecute any alcohol or drug abuse patient.[facility] HospitalIn the event this information is protected by the Federal Confidentiality of Alcohol and Drug Abuse Patient Records regulations: The Federal rules restrict any use of the information to criminally investigate or prosecute any alcohol or drug abuse patient.[facility] HospitalIn the event this information is protected by the Federal Confidentiality of Alcohol and Drug Abuse Patient Records regulations: The Federal rules restrict any use of the information to criminally investigate or prosecute any alcohol or drug abuse patient.[facility] HospitalIn the event this information is protected by the Federal Confidentiality of Alcohol and Drug Abuse Patient Records regulations: The Federal rules restrict any use of the information to criminally investigate or prosecute any alcohol or drug abuse patient.[facility] HospitalIn the event this information is protected by the Federal Confidentiality of Alcohol and Drug Abuse Patient Records regulations: The Federal rules restrict any use of the information to criminally investigate or prosecute any alcohol or drug abuse patient.[facility] HospitalIn the event this information is protected by the Federal Confidentiality of Alcohol and Drug Abuse Patient Records regulations: The Federal rules restrict any use of the information to criminally investigate or prosecute any alcohol or drug abuse patient.[facility] HospitalIn the event this information is protected by the Federal Confidentiality of Alcohol and Drug Abuse Patient Records regulations: The Federal rules restrict any use of the information to criminally investigate or prosecute any alcohol or drug abuse patient.[facility] HospitalIn the event this information is protected by the Federal Confidentiality of Alcohol and Drug Abuse Patient Records regulations: The Federal rules restrict any use of the information to criminally investigate or prosecute any alcohol or drug abuse patient.[facility] HospitalIn the event this information is protected by the Federal Confidentiality of Alcohol and Drug Abuse Patient Records regulations: The Federal rules restrict any use of the information to criminally investigate or prosecute any alcohol or drug abuse patient.[facility] HospitalIn the event this information is protected by the Federal Confidentiality of Alcohol and Drug Abuse Patient Records regulations: The Federal rules restrict any use of the information to criminally investigate or prosecute any alcohol or drug abuse patient.[facility] HospitalIn the event this information is protected by the Federal Confidentiality of Alcohol and Drug Abuse Patient Records regulations: The Federal rules restrict any use of the information to criminally investigate or prosecute any alcohol or drug abuse patient.[facility] HospitalIn the event this information is protected by the Federal Confidentiality of Alcohol and Drug Abuse Patient Records regulations: The Federal rules restrict any use of the information to criminally investigate or prosecute any alcohol or drug abuse patient.[facility] HospitalIn the event this information is protected by the Federal Confidentiality of Alcohol and Drug Abuse Patient Records regulations: The Federal rules restrict any use of the information to criminally investigate or prosecute any alcohol or drug abuse patient.[facility] HospitalIn the event this information is protected by the Federal Confidentiality of Alcohol and Drug Abuse Patient Records regulations: The Federal rules restrict any use of the information to criminally investigate or prosecute any alcohol or drug abuse patient.[facility] HospitalIn the event this information is protected by the Federal Confidentiality of Alcohol and Drug Abuse Patient Records regulations: The Federal rules restrict any use of the information to criminally investigate or prosecute any alcohol or drug abuse patient.[facility] HospitalIn the event this information is protected by the Federal Confidentiality of Alcohol and Drug Abuse Patient Records regulations: The Federal rules restrict any use of the information to criminally investigate or prosecute any alcohol or drug abuse patient.[facility] HospitalIn the event this information is protected by the Federal Confidentiality of Alcohol and Drug Abuse Patient Records regulations: The Federal rules restrict any use of the information to criminally investigate or prosecute any alcohol or drug abuse patient.[facility] HospitalIn the event this information is protected by the Federal Confidentiality of Alcohol and Drug Abuse Patient Records regulations: The Federal rules restrict any use of the information to criminally investigate or prosecute any alcohol or drug abuse patient.[facility] HospitalIn the event this information is protected by the Federal Confidentiality of Alcohol and Drug Abuse Patient Records regulations: The Federal rules restrict any use of the information to criminally investigate or prosecute any alcohol or drug abuse patient.[facility] HospitalIn the event this information is protected by the Federal Confidentiality of Alcohol and Drug Abuse Patient Records regulations: The Federal rules restrict any use of the information to criminally investigate or prosecute any alcohol or drug abuse patient.[facility] HospitalIn the event this information is protected by the Federal Confidentiality of Alcohol and Drug Abuse Patient Records regulations: The Federal rules restrict any use of the information to criminally investigate or prosecute any alcohol or drug abuse patient.[facility] HospitalIn the event this information is protected by the Federal Confidentiality of Alcohol and Drug Abuse Patient Records regulations: The Federal rules restrict any use of the information to criminally investigate or prosecute any alcohol or drug abuse patient.[facility] HospitalIn the event this information is protected by the Federal Confidentiality of Alcohol and Drug Abuse Patient Records regulations: The Federal rules restrict any use of the information to criminally investigate or prosecute any alcohol or drug abuse patient.[facility] HospitalIn the event this information is protected by the Federal Confidentiality of Alcohol and Drug Abuse Patient Records regulations: The Federal rules restrict any use of the information to criminally investigate or prosecute any alcohol or drug abuse patient.[facility] HospitalIn the event this information is protected by the Federal Confidentiality of Alcohol and Drug Abuse Patient Records regulations: The Federal rules restrict any use of the information to criminally investigate or prosecute any alcohol or drug abuse patient.[facility] HospitalIn the event this information is protected by the Federal Confidentiality of Alcohol and Drug Abuse Patient Records regulations: The Federal rules restrict any use of the information to criminally investigate or prosecute any alcohol or drug abuse patient.[facility] HospitalIn the event this information is protected by the Federal Confidentiality of Alcohol and Drug Abuse Patient Records regulations: The Federal rules restrict any use of the information to criminally investigate or prosecute any alcohol or drug abuse patient.[facility] HospitalIn the event this information is protected by the Federal Confidentiality of Alcohol and Drug Abuse Patient Records regulations: The Federal rules restrict any use of the information to criminally investigate or prosecute any alcohol or drug abuse patient.[facility] HospitalIn the event this information is protected by the Federal Confidentiality of Alcohol and Drug Abuse Patient Records regulations: The Federal rules restrict any use of the information to criminally investigate or prosecute any alcohol or drug abuse patient.[facility] HospitalIn the event this information is protected by the Federal Confidentiality of Alcohol and Drug Abuse Patient Records regulations: The Federal rules restrict any use of the information to criminally investigate or prosecute any alcohol or drug abuse patient.[facility] HospitalIn the event this information is protected by the Federal Confidentiality of Alcohol and Drug Abuse Patient Records regulations: The Federal rules restrict any use of the information to criminally investigate or prosecute any alcohol or drug abuse patient.[facility] HospitalIn the event this information is protected by the Federal Confidentiality of Alcohol and Drug Abuse Patient Records regulations: The Federal rules restrict any use of the information to criminally investigate or prosecute any alcohol or drug abuse patient.[facility] ClinicIn the event this information is protected by the Federal Confidentiality of Alcohol and Drug Abuse Patient Records regulations: The Federal rules restrict any use of the information to criminally investigate or prosecute any alcohol or drug abuse patient.[facility] HospitalIn the event this information is protected by the Federal Confidentiality of Alcohol and Drug Abuse Patient Records regulations: The Federal rules restrict any use of the information to criminally investigate or prosecute any alcohol or drug abuse patient.[facility] HospitalIn the event this information is protected by the Federal Confidentiality of Alcohol and Drug Abuse Patient Records regulations: The Federal rules restrict any use of the information to criminally investigate or prosecute any alcohol or drug abuse patient.[facility] HospitalIn the event this information is protected by the Federal Confidentiality of Alcohol and Drug Abuse Patient Records regulations: The Federal rules restrict any use of the information to criminally investigate or prosecute any alcohol or drug abuse patient.[facility] HospitalIn the event this information is protected by the Federal Confidentiality of Alcohol and Drug Abuse Patient Records regulations: The Federal rules restrict any use of the information to criminally investigate or prosecute any alcohol or drug abuse patient.[facility] HospitalIn the event this information is protected by the Federal Confidentiality of Alcohol and Drug Abuse Patient Records regulations: The Federal rules restrict any use of the information to criminally investigate or prosecute any alcohol or drug abuse patient.[facility] HospitalIn the event this information is protected by the Federal Confidentiality of Alcohol and Drug Abuse Patient Records regulations: The Federal rules restrict any use of the information to criminally investigate or prosecute any alcohol or drug abuse patient.[facility] HospitalIn the event this information is protected by the Federal Confidentiality of Alcohol and Drug Abuse Patient Records regulations: The Federal rules restrict any use of the information to criminally investigate or prosecute any alcohol or drug abuse patient.[facility] HospitalIn the event this information is protected by the Federal Confidentiality of Alcohol and Drug Abuse Patient Records regulations: The Federal rules restrict any use of the information to criminally investigate or prosecute any alcohol or drug abuse patient.[facility] HospitalIn the event this information is protected by the Federal Confidentiality of Alcohol and Drug Abuse Patient Records regulations: The Federal rules restrict any use of the information to criminally investigate or prosecute any alcohol or drug abuse patient.[facility] HospitalIn the event this information is protected by the Federal Confidentiality of Alcohol and Drug Abuse Patient Records regulations: The Federal rules restrict any use of the information to criminally investigate or prosecute any alcohol or drug abuse patient.[facility] HospitalIn the event this information is protected by the Federal Confidentiality of Alcohol and Drug Abuse Patient Records regulations: The Federal rules restrict any use of the information to criminally investigate or prosecute any alcohol or drug abuse patient.[facility] HospitalIn the event this information is protected by the Federal Confidentiality of Alcohol and Drug Abuse Patient Records regulations: The Federal rules restrict any use of the information to criminally investigate or prosecute any alcohol or drug abuse patient.[facility] HospitalIn the event this information is protected by the Federal Confidentiality of Alcohol and Drug Abuse Patient Records regulations: The Federal rules restrict any use of the information to criminally investigate or prosecute any alcohol or drug abuse patient.[facility] HospitalIn the event this information is protected by the Federal Confidentiality of Alcohol and Drug Abuse Patient Records regulations: The Federal rules restrict any use of the information to criminally investigate or prosecute any alcohol or drug abuse patient.[facility] HospitalIn the event this information is protected by the Federal Confidentiality of Alcohol and Drug Abuse Patient Records regulations: The Federal rules restrict any use of the information to criminally investigate or prosecute any alcohol or drug abuse patient.[facility] HospitalIn the event this information is protected by the Federal Confidentiality of Alcohol and Drug Abuse Patient Records regulations: The Federal rules restrict any use of the information to criminally investigate or prosecute any alcohol or drug abuse patient.[facility] HospitalIn the event this information is protected by the Federal Confidentiality of Alcohol and Drug Abuse Patient Records regulations: The Federal rules restrict any use of the information to criminally investigate or prosecute any alcohol or drug abuse patient.[facility] HospitalIn the event this information is protected by the Federal Confidentiality of Alcohol and Drug Abuse Patient Records regulations: The Federal rules restrict any use of the information to criminally investigate or prosecute any alcohol or drug abuse patient.[facility] HospitalIn the event this information is protected by the Federal Confidentiality of Alcohol and Drug Abuse Patient Records regulations: The Federal rules restrict any use of the information to criminally investigate or prosecute any alcohol or drug abuse patient.[facility] HospitalIn the event this information is protected by the Federal Confidentiality of Alcohol and Drug Abuse Patient Records regulations: The Federal rules restrict any use of the information to criminally investigate or prosecute any alcohol or drug abuse patient.[facility] HospitalIn the event this information is protected by the Federal Confidentiality of Alcohol and Drug Abuse Patient Records regulations: The Federal rules restrict any use of the information to criminally investigate or prosecute any alcohol or drug abuse patient.[facility] HospitalIn the event this information is protected by the Federal Confidentiality of Alcohol and Drug Abuse Patient Records regulations: The Federal rules restrict any use of the information to criminally investigate or prosecute any alcohol or drug abuse patient.[facility] HospitalIn the event this information is protected by the Federal Confidentiality of Alcohol and Drug Abuse Patient Records regulations: The Federal rules restrict any use of the information to criminally investigate or prosecute any alcohol or drug abuse patient.[facility] HospitalIn the event this information is protected by the Federal Confidentiality of Alcohol and Drug Abuse Patient Records regulations: The Federal rules restrict any use of the information to criminally investigate or prosecute any alcohol or drug abuse patient.[facility] HospitalIn the event this information is protected by the Federal Confidentiality of Alcohol and Drug Abuse Patient Records regulations: The Federal rules restrict any use of the information to criminally investigate or prosecute any alcohol or drug abuse patient.[facility] HospitalIn the event this information is protected by the Federal Confidentiality of Alcohol and Drug Abuse Patient Records regulations: The Federal rules restrict any use of the information to criminally investigate or prosecute any alcohol or drug abuse patient.[facility] HospitalIn the event this information is protected by the Federal Confidentiality of Alcohol and Drug Abuse Patient Records regulations: The Federal rules restrict any use of the information to criminally investigate or prosecute any alcohol or drug abuse patient.[facility] HospitalIn the event this information is protected by the Federal Confidentiality of Alcohol and Drug Abuse Patient Records regulations: The Federal rules restrict any use of the information to criminally investigate or prosecute any alcohol or drug abuse patient.[facility] HospitalIn the event this information is protected by the Federal Confidentiality of Alcohol and Drug Abuse Patient Records regulations: The Federal rules restrict any use of the information to criminally investigate or prosecute any alcohol or drug abuse patient.[facility] HospitalIn the event this information is protected by the Federal Confidentiality of Alcohol and Drug Abuse Patient Records regulations: The Federal rules restrict any use of the information to criminally investigate or prosecute any alcohol or drug abuse patient.[facility] HospitalIn the event this information is protected by the Federal Confidentiality of Alcohol and Drug Abuse Patient Records regulations: The Federal rules restrict any use of the information to criminally investigate or prosecute any alcohol or drug abuse patient.[facility] HospitalIn the event this information is protected by the Federal Confidentiality of Alcohol and Drug Abuse Patient Records regulations: The Federal rules restrict any use of the information to criminally investigate or prosecute any alcohol or drug abuse patient.[facility] HospitalIn the event this information is protected by the Federal Confidentiality of Alcohol and Drug Abuse Patient Records regulations: The Federal rules restrict any use of the information to criminally investigate or prosecute any alcohol or drug abuse patient.[facility] HospitalIn the event this information is protected by the Federal Confidentiality of Alcohol and Drug Abuse Patient Records regulations: The Federal rules restrict any use of the information to criminally investigate or prosecute any alcohol or drug abuse patient.[facility] HospitalIn the event this information is protected by the Federal Confidentiality of Alcohol and Drug Abuse Patient Records regulations: The Federal rules restrict any use of the information to criminally investigate or prosecute any alcohol or drug abuse patient.[facility] HospitalIn the event this information is protected by the Federal Confidentiality of Alcohol and Drug Abuse Patient Records regulations: The Federal rules restrict any use of the information to criminally investigate or prosecute any alcohol or drug abuse patient.[facility] HospitalIn the event this information is protected by the Federal Confidentiality of Alcohol and Drug Abuse Patient Records regulations: The Federal rules restrict any use of the information to criminally investigate or prosecute any alcohol or drug abuse patient.[facility] HospitalIn the event this information is protected by the Federal Confidentiality of Alcohol and Drug Abuse Patient Records regulations: The Federal rules restrict any use of the information to criminally investigate or prosecute any alcohol or drug abuse patient.[facility] HospitalIn the event this information is protected by the Federal Confidentiality of Alcohol and Drug Abuse Patient Records regulations: The Federal rules restrict any use of the information to criminally investigate or prosecute any alcohol or drug abuse patient.[facility] HospitalIn the event this information is protected by the Federal Confidentiality of Alcohol and Drug Abuse Patient Records regulations: The Federal rules restrict any use of the information to criminally investigate or prosecute any alcohol or drug abuse patient.[facility] HospitalIn the event this information is protected by the Federal Confidentiality of Alcohol and Drug Abuse Patient Records regulations: The Federal rules restrict any use of the information to criminally investigate or prosecute any alcohol or drug abuse patient.[facility] HospitalIn the event this information is protected by the Federal Confidentiality of Alcohol and Drug Abuse Patient Records regulations: The Federal rules restrict any use of the information to criminally investigate or prosecute any alcohol or drug abuse patient.[facility] HospitalIn the event this information is protected by the Federal Confidentiality of Alcohol and Drug Abuse Patient Records regulations: The Federal rules restrict any use of the information to criminally investigate or prosecute any alcohol or drug abuse patient.[facility] HospitalIn the event this information is protected by the Federal Confidentiality of Alcohol and Drug Abuse Patient Records regulations: The Federal rules restrict any use of the information to criminally investigate or prosecute any alcohol or drug abuse patient.[facility] HospitalIn the event this information is protected by the Federal Confidentiality of Alcohol and Drug Abuse Patient Records regulations: The Federal rules restrict any use of the information to criminally investigate or prosecute any alcohol or drug abuse patient.[facility] HospitalIn the event this information is protected by the Federal Confidentiality of Alcohol and Drug Abuse Patient Records regulations: The Federal rules restrict any use of the information to criminally investigate or prosecute any alcohol or drug abuse patient.[facility] HospitalIn the event this information is protected by the Federal Confidentiality of Alcohol and Drug Abuse Patient Records regulations: The Federal rules restrict any use of the information to criminally investigate or prosecute any alcohol or drug abuse patient.[facility] HospitalIn the event this information is protected by the Federal Confidentiality of Alcohol and Drug Abuse Patient Records regulations: The Federal rules restrict any use of the information to criminally investigate or prosecute any alcohol or drug abuse patient.[facility] HospitalIn the event this information is protected by the Federal Confidentiality of Alcohol and Drug Abuse Patient Records regulations: The Federal rules restrict any use of the information to criminally investigate or prosecute any alcohol or drug abuse patient.[facility] ClinicIn the event this information is protected by the Federal Confidentiality of Alcohol and Drug Abuse Patient Records regulations: The Federal rules restrict any use of the information to criminally investigate or prosecute any alcohol or drug abuse patient.[facility] HospitalIn the event this information is protected by the Federal Confidentiality of Alcohol and Drug Abuse Patient Records regulations: The Federal rules restrict any use of the information to criminally investigate or prosecute any alcohol or drug abuse patient.[facility] HospitalIn the event this information is protected by the Federal Confidentiality of Alcohol and Drug Abuse Patient Records regulations: The Federal rules restrict any use of the information to criminally investigate or prosecute any alcohol or drug abuse patient.[facility] HospitalIn the event this information is protected by the Federal Confidentiality of Alcohol and Drug Abuse Patient Records regulations: The Federal rules restrict any use of the information to criminally investigate or prosecute any alcohol or drug abuse patient.[facility] HospitalIn the event this information is protected by the Federal Confidentiality of Alcohol and Drug Abuse Patient Records regulations: The Federal rules restrict any use of the information to criminally investigate or prosecute any alcohol or drug abuse patient.[facility] HospitalIn the event this information is protected by the Federal Confidentiality of Alcohol and Drug Abuse Patient Records regulations: The Federal rules restrict any use of the information to criminally investigate or prosecute any alcohol or drug abuse patient.[facility] HospitalIn the event this information is protected by the Federal Confidentiality of Alcohol and Drug Abuse Patient Records regulations: The Federal rules restrict any use of the information to criminally investigate or prosecute any alcohol or drug abuse patient.[facility] Care Teams (unrecognized sec tion and content) Life Cycle Assessment Analyst Relationship Specialty Start Date End Date Bridget De Luna MD [address] [place] [address] PCP - General Family Practice 05/15/14 Life Cycle Assessment Analyst Relationship Specialty Start Date End Date Bridget De Luna MD [address] [place] [address] PCP - General Family Practice 05/15/14 Life Cycle Assessment Analyst Relationship Specialty Start Date End Date Bridget De Luna MD [address] [place] [address] PCP - General Family Practice 05/15/14 Life Cycle Assessment Analyst Relationship Specialty Start Date End Date Bridget De Luna MD [address] [place] [address] PCP - General Family Practice 05/15/14 Life Cycle Assessment Analyst Relationship Specialty Start Date End Date Bridget De Luna MD [address] [place] [address] PCP - General Family Practice 05/15/14 Life Cycle Assessment Analyst Relationship Specialty Start Date End Date Bridget De Luna MD [address] [place] [address] PCP - General Family Practice 05/15/14 Life Cycle Assessment Analyst Relationship Specialty Start Date End Date Bridget De Luna MD [address] [place] [address] PCP - General Family Practice 05/15/14 Life Cycle Assessment Analyst Relationship Specialty Start Date End Date Bridget De Luna MD [address] [place] [address] PCP - General Family Practice 05/15/14 Life Cycle Assessment Analyst Relationship Specialty Start Date End Date Bridget De Luna MD [address] [place] [address] PCP - General Family Practice 05/15/14 Life Cycle Assessment Analyst Relationship Specialty Start Date End Date Bridget De Luna MD [address] [place] [address] PCP - General Family Practice 05/15/14 Life Cycle Assessment Analyst Relationship Specialty Start Date End Date Bridget De Luna MD [address] [place] [address] PCP - General Family Practice 05/15/14 Life Cycle Assessment Analyst Relationship Specialty Start Date End Date Bridget De Luna MD [address] [place] [address] PCP - General Family Practice 05/15/14 Life Cycle Assessment Analyst Relationship Specialty Start Date End Date Bridget De Luna MD [address] [place] [address] PCP - General Family Practice 05/15/14 Life Cycle Assessment Analyst Relationship Specialty Start Date End Date Bridget De Luna MD [address] [place] [address] PCP - General Family Practice 05/15/14 Life Cycle Assessment Analyst Relationship Specialty Start Date End Date Bridget De Luna MD [address] [facility] [place] [address] PCP - General Family Practice 05/15/14 Life Cycle Assessment Analyst Relationship Specialty Start Date End Date Bridget De Luna MD [address] [place] [address] PCP - General Family Practice 05/15/14 Life Cycle Assessment Analyst Relationship Specialty Start Date End Date Bridget De Luna MD [address] [place] [address] PCP - General Family Practice 05/15/14 Life Cycle Assessment Analyst Relationship Specialty Start Date End Date Bridget De Luna MD [address] [place] [address] PCP - General Family Practice 05/15/14 Life Cycle Assessment Analyst Relationship Specialty Start Date End Date Bridget De Luna MD [address] [place] [address] PCP - General Family Practice 05/15/14 Life Cycle Assessment Analyst Relationship Specialty Start Date End Date Bridget De Luna MD [address] [place] [address] PCP - General Family Practice 05/15/14 Life Cycle Assessment Analyst Relationship Specialty Start Date End Date Bridget De Luna MD [address] [place] [address] PCP - General Family Practice 05/15/14 Life Cycle Assessment Analyst Relationship Specialty Start Date End Date Bridget De Luna MD [address] [place] [address] PCP - General Family Practice 05/15/14 Life Cycle Assessment Analyst Relationship Specialty Start Date End Date Bridget De Luna MD [address] [place] [address] PCP - General Family Practice 05/15/14 Life Cycle Assessment Analyst Relationship Specialty Start Date End Date Bridget De Luna MD [address] [place] [address] PCP - General Family Practice 05/15/14 Life Cycle Assessment Analyst Relationship Specialty Start Date End Date Bridget De Luna MD [address] [place] [address] PCP - General Family Practice 05/15/14 Life Cycle Assessment Analyst Relationship Specialty Start Date End Date Bridget De Luna MD [address] [place] [address] PCP - General Family Practice 05/15/14 Life Cycle Assessment Analyst Relationship Specialty Start Date End Date Bridget De Luna MD [address] [place] [address] PCP - General Family Practice 05/15/14 Life Cycle Assessment Analyst Relationship Specialty Start Date End Date Bridget De Luna MD [address] [place] [address] PCP - General Family Practice 05/15/14 Life Cycle Assessment Analyst Relationship Specialty Start Date End Date Bridget De Luna MD [address] [place] [address] PCP - General Family Practice 05/15/14 Life Cycle Assessment Analyst Relationship Specialty Start Date End Date Bridget De Luna MD [address] [place] [address] PCP - General Family Practice 05/15/14 Life Cycle Assessment Analyst Relationship Specialty Start Date End Date Bridget De Luna MD [address] [place] [address] PCP - General Family Practice 05/15/14 Life Cycle Assessment Analyst Relationship Specialty Start Date End Date Bridget De Luna MD [address] [place] [address] PCP - General Family Practice 05/15/14 Life Cycle Assessment Analyst Relationship Specialty Start Date End Date Bridget De Luna MD [address] [place] [address] PCP - General Family Medicine 05/15/14 Life Cycle Assessment Analyst Relationship Specialty Start Date End Date Bridget De Luna MD [address] [facility] [place] [address] PCP - General Family Medicine 05/15/14 Life Cycle Assessment Analyst Relationship Specialty Start Date End Date Bridget De Luna MD [address] [place] [address] PCP - General Family Medicine 05/15/14 Life Cycle Assessment Analyst Relationship Specialty Start Date End Date Bridget De Luna MD [address] [facility] [place] [address] PCP - General Family Medicine 05/15/14 Team Status: Active Member Role Status Dates ANABEL COBIAN Primary Care Provider Active Sta rt: September 16, 2022 MATHEW DURAN DO Emergency Provider Active S tart: September 16, 2022 JOSE D VILLAR next of kin Active JIM CHARLES Guarantor Active Life Cycle Assessment Analyst Relationship Specialty Start Date End Date Bridget De Luna MD [address] [place] [address] PCP - General Family Medicine 05/15/14 Life Cycle Assessment Analyst Relationship Specialty Start Date End Date Bridget De Luna MD [address] [place] [address] PCP - General Family Medicine 05/15/14 Life Cycle Assessment Analyst Relationship Specialty Start Date End Date Bridget De Luna MD [address] [place] [address] PCP - General Family Medicine 05/15/14 Life Cycle Assessment Analyst Relationship Specialty Start Date End Date Bridget De Luna MD [address] [place] [address] PCP - General Family Medicine 05/15/14 Life Cycle Assessment Analyst Relationship Specialty Start Date End Date Bridget De Luna MD [address] [place] [address] PCP - General Family Medicine 05/15/14 Life Cycle Assessment Analyst Relationship Specialty Start Date End Date Bridget De Luna MD [address] [place] [address] PCP - General Family Medicine 05/15/14 Life Cycle Assessment Analyst Relationship Specialty Start Date End Date Bridget De Luna MD [address] [place] [address] PCP - General Family Medicine 05/15/14 Life Cycle Assessment Analyst Relationship Specialty Start Date End Date Bridget De Luna MD [address] [place] [address] PCP - General Family Medicine 05/15/14 Life Cycle Assessment Analyst Relationship Specialty Start Date End Date Bridget De Luna MD [address] [place] [address] PCP - General Family Medicine 05/15/14 Life Cycle Assessment Analyst Relationship Specialty Start Date End Date Bridget De Luna MD [address] [place] [address] PCP - General Family Medicine 05/15/14 Life Cycle Assessment Analyst Relationship Specialty Start Date End Date Bridget De Luna MD [address] [place] [address] PCP - General Family Medicine 05/15/14 Life Cycle Assessment Analyst Relationship Specialty Start Date End Date Bridget De Luna MD [address] [place] [address] PCP - General Family Medicine 05/15/14 Life Cycle Assessment Analyst Relationship Specialty Start Date End Date Bridget De Luna MD [address] [place] [address] PCP - General Family Medicine 05/15/14 Life Cycle Assessment Analyst Relationship Specialty Start Date End Date Bridget De Luna MD [address] [place] [address] PCP - General Family Medicine 05/15/14 Life Cycle Assessment Analyst Relationship Specialty Start Date End Date Bridget De Luna MD [address] [place] [address] PCP - General Family Medicine 05/15/14 Life Cycle Assessment Analyst Relationship Specialty Start Date End Date Bridget De Luna MD [address] [place] [address] PCP - General Family Medicine 05/15/14 Life Cycle Assessment Analyst Relationship Specialty Start Date End Date Bridget De Luna MD [address] [place] [address] PCP - General Family Medicine 05/15/14 Life Cycle Assessment Analyst Relationship Specialty Start Date End Date Bridget De Luna MD [address] [place] [address] PCP - General Family Medicine 05/15/14 Life Cycle Assessment Analyst Relationship Specialty Start Date End Date Bridget De Luna MD [address] [place] [address] PCP - General Family Medicine 05/15/14 Life Cycle Assessment Analyst Relationship Specialty Start Date End Date Bridget De Luna MD [address] [place] [address] PCP - General Family Medicine 05/15/14 Life Cycle Assessment Analyst Relationship Specialty Start Date End Date Bridget De Luna MD [address] [place] [address] PCP - General Family Medicine 05/15/14 Life Cycle Assessment Analyst Relationship Specialty Start Date End Date Bridget De Luna MD [address] [place] [address] PCP - General Family Medicine 05/15/14 Life Cycle Assessment Analyst Relationship Specialty Start Date End Date Bridget De Luna MD [address] [place] [address] PCP - General Family Medicine 05/15/14 Life Cycle Assessment Analyst Relationship Specialty Start Date End Date Bridget De Luna MD [address] [place] [address] PCP - General Family Medicine 05/15/14 Life Cycle Assessment Analyst Relationship Specialty Start Date End Date Bridget De Luna MD [address] [place] [address] PCP - General Family Medicine 05/15/14 Life Cycle Assessment Analyst Relationship Specialty Start Date End Date Bridget De Luna MD [address] [place] [address] PCP - General Family Medicine 05/15/14 Life Cycle Assessment Analyst Relationship Specialty Start Date End Date Bridget De Luna MD [address] [place] [address] PCP - General Family Medicine 05/15/14 Life Cycle Assessment Analyst Relationship Specialty Start Date End Date Bridget De Luna MD [address] [place], [place] [address] PCP - General Family Medicine 05/15/14 Life Cycle Assessment Analyst Relationship Specialty Start Date End Date Bridget De Luna MD [address] [place] [address] PCP - General Family Medicine 05/15/14 Life Cycle Assessment Analyst Relationship Specialty Start Date End Date Bridget De Luna MD [address] [place] [address] PCP - General Family Medicine 05/15/14 Life Cycle Assessment Analyst Relationship Specialty Start Date End Date Bridget De Luna MD [address] [place] [address] PCP - General Family Medicine 05/15/14 Life Cycle Assessment Analyst Relationship Specialty Start Date End Date Bridget De Luna MD [address] [place] [address] PCP - General Family Medicine 05/15/14 Life Cycle Assessment Analyst Relationship Specialty Start Date End Date Bridget De Luna MD [address] [place] [address] PCP - General Family Medicine 05/15/14 Life Cycle Assessment Analyst Relationship Specialty Start Date End Date Bridget De Luna MD [address] [place], [place] [address] PCP - General Family Medicine 05/15/14 Life Cycle Assessment Analyst Relationship Specialty Start Date End Date Bridget De Luna MD [address] [place], [place] [address] PCP - General Family Medicine 05/15/14 Life Cycle Assessment Analyst Relationship Specialty Start Date End Date Bridget De Luna MD [address] [place], [place] [address]341 PCP - General Family Medicine 05/15/14 Life Cycle Assessment Analyst Relationship Specialty Start Date End Date Bridget De Luna MD [address] [place] [address] PCP - General Family Medicine 05/15/14 Life Cycle Assessment Analyst Relationship Specialty Start Date End Date Bridget De Luna MD [address] [place] [address] PCP - General Family Medicine 05/15/14 Life Cycle Assessment Analyst Relationship Specialty Start Date End Date Bridget De Luna MD [address] [place] [address] PCP - General Family Medicine 05/15/14 Life Cycle Assessment Analyst Relationship Specialty Start Date End Date Bridget De Luna MD [address] [place] [address] PCP - General Family Medicine 05/15/14 Life Cycle Assessment Analyst Relationship Specialty Start Date End Date Bridget De Luna MD [address] [place] [address] PCP - General Family Medicine 05/15/14 Life Cycle Assessment Analyst Relationship Specialty Start Date End Date Bridget De Luna MD [address] [place], [place] [address]241 PCP - General Family Medicine 05/15/14 Life Cycle Assessment Analyst Relationship Specialty Start Date End Date Bridget De Luna MD [address] [place] [address] PCP - General Family Medicine 05/15/14 Life Cycle Assessment Analyst Relationship Specialty Start Date End Date Bridget De Luna MD [address] [place] [address] PCP - General Family Medicine 05/15/14 Life Cycle Assessment Analyst Relationship Specialty Start Date End Date Bridget De Luan MD [address] [place] [address] PCP - General Family Medicine 05/15/14 Life Cycle Assessment Analyst Relationship Specialty Start Date End Date Bridget De Luna MD [address] [place] [address] PCP - General Family Medicine 05/15/14 Life Cycle Assessment Analyst Relationship Specialty Start Date End Date Bridget De Luna MD [address] [place] [address] PCP - General Family Medicine 05/15/14 Life Cycle Assessment Analyst Relationship Specialty Start Date End Date Bridget De Luna MD [address] [place] [address] PCP - General Family Medicine 05/15/14 Life Cycle Assessment Analyst Relationship Specialty Start Date End Date Bridget De Luna MD [address] [place] [address] PCP - General Family Medicine 05/15/14 Life Cycle Assessment Analyst Relationship Specialty Start Date End Date Bridget De Luna MD [address] [place] [address] PCP - General Family Medicine 05/15/14 Life Cycle Assessment Analyst Relationship Specialty Start Date End Date Bridget De Luna MD [address] [place] [address] PCP - General Family Medicine 05/15/14 Life Cycle Assessment Analyst Relationship Specialty Start Date End Date Bridget De Luna MD [address] [place] [address] PCP - General Family Medicine 05/15/14 Life Cycle Assessment Analyst Relationship Specialty Start Date End Date Bridget De Luna MD [address] [place] [address] PCP - General Family Medicine 05/15/14 Life Cycle Assessment Analyst Relationship Specialty Start Date End Date Bridget De Luna MD [address] [place] [address] PCP - General Family Medicine 05/15/14 Life Cycle Assessment Analyst Relationship Specialty Start Date End Date Bridget De Luna MD [address] [place] [address] PCP - General Family Medicine 05/15/14 Life Cycle Assessment Analyst Relationship Specialty Start Date End Date Bridget De Luna MD [address] [place] [address] PCP - General Family Medicine 05/15/14 Life Cycle Assessment Analyst Relationship Specialty Start Date End Date Bridget De Luna MD [address] [place] [address] PCP - General Family Medicine 05/15/14 Life Cycle Assessment Analyst Relationship Specialty Start Date End Date Bridget De Luna MD [address] [place] [address] PCP - General Family Medicine 05/15/14 Life Cycle Assessment Analyst Relationship Specialty Start Date End Date Bridget De Luna MD [address] [place] [address] PCP - General Family Medicine 05/15/14 Life Cycle Assessment Analyst Relationship Specialty Start Date End Date Bridget De Luna MD [address] [place] [address] PCP - General Family Medicine 05/15/14 Life Cycle Assessment Analyst Relationship Specialty Start Date End Date Bridget De Luna MD [address] [place] [address] PCP - General Family Medicine 05/15/14 Life Cycle Assessment Analyst Relationship Specialty Start Date End Date Bridget De Luna MD [address] [place] [address] PCP - General Family Medicine 05/15/14 Life Cycle Assessment Analyst Relationship Specialty Start Date End Date Bridget De Luna MD [address] [place] [address] PCP - General Family Medicine 05/15/14 Life Cycle Assessment Analyst Relationship Specialty Start Date End Date Bridget De Luna MD [address] [place] [address] PCP - General Family Medicine 01/23/24 Life Cycle Assessment Analyst Relationship Specialty Start Date End Date Bridget De Luna MD [address] [place], [place] [address]2431 PCP - General Family Medicine 05/15/14 Life Cycle Assessment Analyst Relationship Specialty Start Date End Date Bridget De Luna MD [address] [place] [address] PCP - General Family Medicine 05/15/14 Life Cycle Assessment Analyst Relationship Specialty Start Date End Date Bridget De Luna MD [address] [place], [place] [address]31 PCP - General Family Medicine 05/15/14 Life Cycle Assessment Analyst Relationship Specialty Start Date End Date Bridget De Luna MD [address] [place], [place] [address]65681 PCP - General Family Medicine 05/15/14 Life Cycle Assessment Analyst Relationship Specialty Start Date End Date Bridget De Luna MD [address] [place] [address] PCP - General Family Medicine 05/15/14 Life Cycle Assessment Analyst Relationship Specialty Start Date End Date Bridget De Luna MD [address] [place] [address] PCP - General Family Medicine 05/15/14 Life Cycle Assessment Analyst Relationship Specialty Start Date End Date Bridget De Luna MD [address] [place] [address] PCP - General Family Medicine 05/15/14 Life Cycle Assessment Analyst Relationship Specialty Start Date End Date Bridget De Luna MD [address] [place] [address] PCP - General Family Medicine 05/15/14 Life Cycle Assessment Analyst Relationship Specialty Start Date End Date Bridget De Luna MD [address] [place], [place] [address]31 PCP - General Family Medicine 05/15/14 Life Cycle Assessment Analyst Relationship Specialty Start Date End Date Bridget De Luna MD [address] [place], [place] [address]84771 PCP - General Family Medicine 05/15/14 Life Cycle Assessment Analyst Relationship Specialty Start Date End Date Bridget De Luna MD [address] [place] [address] PCP - General Family Medicine 05/15/14 Life Cycle Assessment Analyst Relationship Specialty Start Date End Date Bridget De Luna MD [address] [place] [address] PCP - General Family Medicine 05/15/14 Life Cycle Assessment Analyst Relationship Specialty Start Date End Date Bridget De Luna MD [address] [place] [address] PCP - General Family Medicine 05/15/14 Life Cycle Assessment Analyst Relationship Specialty Start Date End Date Bridget De Luna MD [address] [place] [address] PCP - General Family Medicine 05/15/14 Life Cycle Assessment Analyst Relationship Specialty Start Date End Date Bridget De Luna MD [address] [place] [address] PCP - General Family Medicine 05/15/14 Life Cycle Assessment Analyst Relationship Specialty Start Date End Date Bridget De Luna MD [address] [place] [address] PCP - General Family Medicine 05/15/14 Life Cycle Assessment Analyst Relationship Specialty Start Date End Date Bridget De Luna MD [address] [place], [place] 506141 PCP - General Family Medicine 05/15/14 Life Cycle Assessment Analyst Relationship Specialty Start Date End Date Bridget De Luna MD [address] [place], [place] [address]68[address] PCP - General Family Medicine 05/15/14 Life Cycle Assessment Analyst Relationship Specialty Start Date End Date Bridget De Luna MD [address] [facility] [place] [address] PCP - General Family Medicine 05/15/14 Life Cycle Assessment Analyst Relationship Specialty Start Date End Date Bridget De Luna MD [address] [place] [address] PCP - General Family Medicine 05/15/14 Life Cycle Assessment Analyst Relationship Specialty Start Date End Date Bridget De Luna MD [address] [place] [address] PCP - General Family Medicine 05/15/14 Life Cycle Assessment Analyst Relationship Specialty Start Date End Date Bridget De Luna MD [address] [place] [address] PCP - General Family Medicine 05/15/14 Herlinda Jett, FIELD MECHANIC.WASH WORKER [address] [place] [address] Dialysis Clinical Manager Family Medicine 09/09/24 Daylin Mendenhall, FIELD MECHANIC.WASH WORKER [address] [place] [address] Dialysis Clinical Manager Family Medicine 09/09/24 Life Cycle Assessment Analyst Relationship Specialty Start Date End Date Bridget De Luna MD [address] [place] [address] PCP - General Family Medicine 05/15/14 Herlinda Jett, FIELD MECHANIC.WASH WORKER [address] [place] [address] Dialysis Clinical Manager Family [facility] 09/09/24 Daylin Mendenhall FIELD MECHANIC.WASH WORKER [address] [facility] [place] [id number] [facility] 09/09/24 Life Cycle Assessment Analyst Relationship Specialty Start Date End Date Bridget De Luna MD [address] [place] [address] PCP - General Family Medicine 05/15/14 Herlinda Jett FIELD MECHANIC.WASH WORKER [address] [facility] [place] [address] [facility] 09/09/24 Daylin Mendenhall FIELD MECHANIC.WASH WORKER [address] [place] [address] [facility] 09/09/24 Life Cycle Assessment Analyst Relationship Specialty Start Date End Date Bridget De Luna MD [address] [place] [address] PCP - General Family Medicine 05/15/14 Herlinda Jett FIELD MECHANIC.WASH WORKER [address] [place] [address] [facility] Medicine 09/09/24 Daylin Mendenhall FIELD MECHANIC.WASH WORKER [address] [place] [address] [facility] Medicine 09/09/24 Life Cycle Assessment Analyst Relationship Specialty Start Date End Date Bridget De Luna MD [address] [place] [address] PCP - General Family Medicine 05/15/14 Herlinda Jett APRN.WASH WORKER [address] [facility] [address] Dialysis Clinical Manager Family Medicine 09/09/24 Daylin Mendenhall APRN.WASH WORKER [address] [facility] [place] [address] Dialysis Clinical Manager Family Medicine 09/09/24 Life Cycle Assessment Analyst Relationship Specialty Start Date End Date Bridget De Luna MD [address] [facility] [place] [address] PCP - General Family Medicine 05/15/14 Herlinda Jett APRN.WASH WORKER [address] [facility] [address] Dialysis Clinical Manager Family Medicine 09/09/24 Daylin Mendenhall APRN.WASH WORKER [address] [facility] [place] [address] [facility] 09/09/24 Life Cycle Assessment Analyst Relationship Specialty Start Date End Date Bridget De Luna MD [address] [facility] [place] [address] PCP - General Family Medicine 05/15/14 Herlinda Jett FIELD MECHANIC.WASH WORKER [address] [facility] [address] Dialysis Clinical Manager Family Medicine 09/09/24 Daylin Mendenhall APRN.WASH WORKER [address] [facility] [place] [address] Dialysis Clinical Manager Family Medicine 09/09/24 Life Cycle Assessment Analyst Relationship Specialty Start Date End Date Bridget De Luna MD [address] [place] [address] PCP - General Family Medicine 05/15/14 Herlinda Jett APRN.WASH WORKER [address] [facility] [address] Dialysis Clinical Manager Family Medicine 09/09/24 Daylin Mendenhall APRN.WASH WORKER [address] [place] [address] Dialysis Clinical Manager Family Medicine 09/09/24 Life Cycle Assessment Analyst Relationship Specialty Start Date End Date Bridget De Luna MD [address] [place] [address] PCP - General Family Medicine 05/15/14 Herlinda Jett APRN.WASH WORKER [address] [facility] [address] Dialysis Clinical Manager Family Medicine 09/09/24 Daylin Mendenhall APRN.WASH WORKER [address] [place] [address] Dialysis Clinical Manager Family Medicine 09/09/24 Life Cycle Assessment Analyst Relationship Specialty Start Date End Date Bridget De Luna MD [address] [place] [address] PCP - General Family Medicine 05/15/14 Herlinda Jett APRN.WASH WORKER [address] [facility] [address] Dialysis Clinical Manager Family Medicine 09/09/24 Daylin Mendenhall APRN.WASH WORKER [address] [place] [address] Dialysis Clinical Manager Family [facility] 09/09/24 Life Cycle Assessment Analyst Relationship Specialty Start Date End Date Bridget De Luna MD [address] [place] [address] PCP - General Family Medicine 05/15/14 Herlinda Jett APRN.WASH WORKER [address] [facility] [place] [id number] Dialysis Clinical Manager Family Medicine 09/09/24 Daylin Mendenhall FIELD MECHANIC.WASH WORKER [address] [facility] [place] [id number] [facility] 09/09/24 Life Cycle Assessment Analyst Relationship Specialty Start Date End Date Bridget De Luna MD [address] [facility] [place] [address] PCP - General Family Medicine 05/15/14 Herlinda Jett FIELD MECHANIC.WASH WORKER [address] [place] [id number] [facility] 09/09/24 Daylin Mendenhall FIELD MECHANIC.WASH WORKER [address] [facility] [place] [id number] [facility] 09/09/24 Life Cycle Assessment Analyst Relationship Specialty Start Date End Date Bridget De Luna MD [address] [facility] [place] [address] PCP - General Family Medicine 05/15/14 Herlinda Jett FIELD MECHANIC.WASH WORKER [address] [facility] [place] [id number] [facility] 09/09/24 Daylin Mendenhall APRN.WASH WORKER [address] [facility] [place] [address] [facility] 09/09/24 Life Cycle Assessment Analyst Relationship Specialty Start Date End Date Bridget De Luna MD [address] [place] [address] PCP - General Family Medicine 05/15/14 Herlinda Jett APRN.WASH WORKER [address] [place] [address] [facility] 09/09/24 Daylin Mendenhall APRN.WASH WORKER [address] [place] [address] [facility] 09/09/24 Life Cycle Assessment Analyst Relationship Specialty Start Date End Date Bridget De Luna MD [address] [place] [address] PCP - General Family Medicine 05/15/14 Herlinda Jett APRN.WASH WORKER [address] [facility] [address] [facility] 09/09/24 Daylin Mendenhall FIELD MECHANIC.WASH WORKER [address] [place] [address] [facility] 09/09/24 Life Cycle Assessment Analyst Relationship Specialty Start Date End Date Bridget De Luna MD [address] [place] [address] PCP - General Family Medicine 05/15/14 Herlinda Jett APRN.WASH WORKER [address] [facility] [place] [address] Dialysis Clinical Manager Family Medicine 09/09/24 Daylin Mendenhall APRN.WASH WORKER [address] [facility] [place] [address] Dialysis Clinical Manager Family Medicine 09/09/24 Life Cycle Assessment Analyst Relationship Specialty Start Date End Date Bridget De Luna MD [address] [facility] [place] [address] PCP - General Family Medicine 05/15/14 Herlinda Jett APRN.WASH WORKER [address] [facility] [place] [address] Dialysis Clinical Manager Family Medicine 09/09/24 Daylin Mendenhall FIELD MECHANIC.WASH WORKER [address] [facility] [place] [address] Dialysis Clinical Manager Family Medicine 09/09/24 Life Cycle Assessment Analyst Relationship Specialty Start Date End Date Bridget De Luna MD [address] [facility] [place] [address] PCP - General Family Medicine 05/15/14 Herlinda Jett APRN.WASH WORKER [address] [facility] [place] [address] Dialysis Clinical Manager Family Medicine 09/09/24 Daylin Mendenhall APRN.WASH WORKER [address] [facility] [place] [address] Dialysis Clinical Manager Family Medicine 09/09/24 Life Cycle Assessment Analyst Relationship Specialty Start Date End Date Bridget De Luna MD [address] [place] [address] PCP - General Family Medicine 05/15/14 Herlinda Jett APRN.WASH WORKER [address] [facility] [place] [address] Dialysis Clinical Manager Family Medicine 09/09/24 Daylin Mendenhall APRN.WASH WORKER [address] [place] [address] [facility] 09/09/24 Life Cycle Assessment Analyst Relationship Specialty Start Date End Date Bridget De Luna MD [address] [place] [address] PCP - General Family Medicine 05/15/14 Herlinda Jett APRN.WASH WORKER [address] [place] [address] Dialysis Clinical Manager Family Medicine 09/09/24 Daylin Mendenhall APRN.WASH WORKER [address] [place] [address] [facility] 09/09/24 Life Cycle Assessment Analyst Relationship Specialty Start Date End Date Bridget De Luna MD [address] [place] [address] PCP - General Family Medicine 05/15/14 Herlinda Jett APRN.WASH WORKER [address] [place] [address] Dialysis Clinical Manager Family Medicine 09/09/24 Daylin Mendenhall APRN.WASH WORKER [address] [place] [address] Dialysis Clinical Manager [facility] 09/09/24 Life Cycle Assessment Analyst Relationship Specialty Start Date End Date Bridget De Luna MD [address] [facility] [place] [address] PCP - General Family Medicine 05/15/14 Herlinda Jett, FIELD MECHANIC.WASH WORKER [address] [facility] [place] [address] Dialysis Clinical Manager Family Medicine 09/09/24 Daylin Mendenhall FIELD MECHANIC.WASH WORKER [address] [facility] [place] [address] [facility] 09/09/24 Life Cycle Assessment Analyst Relationship Specialty Start Date End Date Bridget De Luna MD [address] [place] [address] PCP - General Family Medicine 05/15/14 Herlinda Jett, FIELD MECHANIC.WASH WORKER [address] [facility] [place] [address] [facility] 09/09/24 Daylin Mendenhall, FIELD MECHANIC.WASH WORKER [address] [place] [address] [facility] 09/09/24 Life Cycle Assessment Analyst Relationship Specialty Start Date End Date Bridget De Luna MD [address] [place] [address] PCP - General Family Medicine 05/15/14 Herlinda Jett, FIELD MECHANIC.WASH WORKER [address] [place] [address] Dialysis Clinical Manager Family Medicine 09/09/24 Daylin Mendenhall FIELD MECHANIC.WASH WORKER [address] [facility] [place] [address] [facility] 09/09/24 Life Cycle Assessment Analyst Relationship Specialty Start Date End Date Bridget De Luna MD [address] [facility] [place] [address] PCP - General Family Medicine 05/15/14 Herlinda Jett FIELD MECHANIC.WASH WORKER [address] [facility] [address] [facility] 09/09/24 Daylin Mendenhall FIELD MECHANIC.WASH WORKER [address] [place] [address] [facility] 09/09/24 Life Cycle Assessment Analyst Relationship Specialty Start Date End Date Bridget De Luna MD [address] [place] [address] PCP - General Family Medicine 05/15/14 Herlinda Jett FIELD MECHANIC.WASH WORKER [address] [facility] [address] [facility] 09/09/24 Daylin Mendenhall FIELD MECHANIC.WASH WORKER [address] [place] [address] [facility] 09/09/24 Life Cycle Assessment Analyst Relationship Specialty Start Date End Date Bridget De Luna MD [address] [facility] [place] [place] [address] PCP - General Family Medicine 05/15/14 Herlinda Jett FIELD MECHANIC.WASH WORKER [address] [facility] [address] Dialysis Clinical Manager Family Medicine 09/09/24 Daylin Mendenhall APRN.WASH WORKER [address] [place] [address] Dialysis Clinical Manager Family Medicine 09/09/24 Life Cycle Assessment Analyst Relationship Specialty Start Date End Date Bridget De Luna MD [address] [place] [address] PCP - General Family Medicine 05/15/14 Herlinda Jett APRN.WASH WORKER [address] [facility] [address] Dialysis Clinical Manager Family Medicine 09/09/24 Daylin Mendenhall APRN.WASH WORKER [address] [place] [address] [facility] 09/09/24 Life Cycle Assessment Analyst Relationship Specialty Start Date End Date Bridget De Luna MD [address] [place] [address] PCP - General Family Medicine 05/15/14 Herlinda Jett APRN.WASH WORKER [address] [facility] [address] Dialysis Clinical Manager Family Medicine 09/09/24 Daylin Mendenhall APRN.WASH WORKER [address] [place] [address] Dialysis Clinical Manager [facility] 09/09/24 Life Cycle Assessment Analyst Relationship Specialty Start Date End Date Bridget De Luna MD [address] [place] [address] PCP - General Family Medicine 05/15/14 Herlinda Jett APRN.WASH WORKER [address] [facility] [place] [address] Dialysis Clinical Manager Family Medicine 09/09/24 Daylin Mendenhall APRN.WASH WORKER [address] [facility] [place] [address] Dialysis Clinical Manager Family Medicine 09/09/24 Life Cycle Assessment Analyst Relationship Specialty Start Date End Date Bridget De Luna MD [address] [facility] [place] [address] PCP - General Family Medicine 05/15/14 Herlinda Jett APRN.WASH WORKER [address] [facility] [place] [address] Dialysis Clinical Manager Family Medicine 09/09/24 Daylin Mendenhall APRN.WASH WORKER [address] [facility] [place] [address] Dialysis Clinical Manager Family Medicine 09/09/24 Life Cycle Assessment Analyst Relationship Specialty Start Date End Date Bridget De Luna MD [address] [facility] [place] [address] PCP - General Family Medicine 05/15/14 Herlinda Jett APRN.WASH WORKER [address] [facility] [place] [address] Dialysis Clinical Manager Family Medicine 09/09/24 Daylin Mendenhall APRN.WASH WORKER [address] [facility] [place] [address] Dialysis Clinical Manager Family Medicine 09/09/24 Life Cycle Assessment Analyst Relationship Specialty Start Date End Date Bridget De Luna MD [address] [facility] [place] [address] PCP - General Family Medicine 05/15/14 Herlinda Jett FIELD MECHANIC.WASH WORKER [address] [facility] [place] [address] [facility] 09/09/24 Daylin Mendenhall FIELD MECHANIC.WASH WORKER [address] [facility] [place] [address] [facility] 09/09/24 Life Cycle Assessment Analyst Relationship Specialty Start Date End Date Bridget De Luna MD [address] [facility] [place] [place] [address] PCP - General Family Medicine 05/15/14 Herlinda Jett FIELD MECHANIC.WASH WORKER [address] [facility] [place] [address] [facility] 09/09/24 Daylin Mendenhall FIELD MECHANIC.WASH WORKER [address] [facility] [place] [address] [facility] 09/09/24 Life Cycle Assessment Analyst Relationship Specialty Start Date End Date Bridget De Luna MD [address] [facility] [place] [place] [address] PCP - General Family Medicine 05/15/14 Herlinda Jett FIELD MECHANIC.WASH WORKER [address] [facility] [address] Dialysis Clinical Manager Family Medicine 09/09/24 Daylin Mendenhall FIELD MECHANIC.WASH WORKER [address] [place], [place] [address] [facility] 09/09/24 Life Cycle Assessment Analyst Relationship Specialty Start Date End Date Bridget De Luna MD [address] [place], [place] [address] PCP - General Family Medicine 05/15/14 Herlinda Jett, FIELD MECHANIC.WASH WORKER [address] [place], [place] [address] [facility] 09/09/24 Daylin Mendenhall FIELD MECHANIC.WASH WORKER [address] [place], [place] [address] [facility] 09/09/24 Reason for Visit (unrecogniz ed section and content) Reason Comments Radiology US Specialty Diagnoses / Procedures Referred By Contac t Referred To Contact US IMAGING Diagnoses Pelvic pain Procedures US FEMALE PELVIS TRANSVAG US TRANSVAGINAL Kelly Peña FIELD MECHANIC.WASH WORKER [address] [place] [address] [place] [address] Referral ID Status Reason Start Date Expiration Date V isits Requested Visits Authorized [id number] Closed Auto-Generate d Referral 03/06/2023 04/04/2024 1 1 Specialty Diagnoses / Procedures Referred By Contac t Referred To Contact BR IMAGING Diagnoses Abnormal mammogram Procedures US BREAST LTD LT US BREAST UNI REAL TIME WITH IMAGE LIMITED Rachael Hammond FIELD MECHANIC.WASH WORKER [address] [place] [address] [facility] Imaging [address] [place] [address] Referral ID Status Reason Start Date Expiration Date V isits Requested Visits Authorized [id number] Closed Auto-Generate d Referral 10/10/2022 11/09/2023 1 1 Reason Comments Acute Visit back pain and stomac h been hurting Specialty Diagnoses / Procedures Referred By Contac t Referred To Contact FAMILY MEDICINE Diagnoses Think I pulled a muscle in my back Procedures 4c est Bridget De Luna MD [address] [place] [address] [facility] [address] [place] [address] Referral ID Status Reason Start Date Expiration Date Visits Requested Visits Authorized [id number] Authorized Financial Clearance Required - OON Payor Patient Cleared - Qualified HCAP/501/FA 12/31/2021 03/31/2022 99 99 Reason Comments Consult EGD consult Reason Comments Neck Pain into left shoulder Reason Comments Dysuria Symptoms has since r esolved one week ago Reason Comments ER F/U ER follow up- UTI?; started on atb; complains of upper back pain Reason Comments Consult Specialty Diagnoses / Procedures Referred By Contac t Referred To Contact General Surgery / GENERAL SURGERY Diagnoses Intraductal papillary mucinous neoplasia Procedures CONSULT TO GENERAL SURGERY OFFICE/OUTPATIENT [facility] 60-74 MINUTES Lisette Mccurdy, FIELD MECHANIC.WASH WORKER [address] [place] [address] [place] [address] [place] [address] Referral ID Status Reason Start Date Expiration Date V isits Requested Visits Authorized [id number] Closed PCP Requested Referral 12/06/2021 12/06/2022 1 1 Reason Comments UTI burning and frequenc y x1day Reason Comments Results Scheduling Reason Comments Consult Gallbladder/ Abdomin al Pain Reason Comments Sinus Problem headache and congest ion x this am Reason Comments Nasal Congestion Covid positive one m onth ago Fatigue Reason Comments Appointment Specialty Diagnoses / Procedures Referred By Contac t Referred To Contact Internal Medicine / URGENT CARE CLINIC Diagnoses sinus infection Procedures URGENT CARE [facility] [address] [place] [address] Referral ID Status Reason Start Date Expiration Date V isits Requested Visits Authorized [id number] Closed Patient Cleared - Qualified 100% FAS 09/29/2021 12/28/2021 99 99 Reason Comments Acute Visit neck pain Specialty Diagnoses / Procedures Referred By Contac t Referred To Contact Diagnoses Office Visit Procedures Office Visit Self [facility] Dept Referral ID Status Reason Start Date Expiration Date Visits Requested Visits Authorized [id number] Authorized Financial Clearance Required - Self Pay Patient Cleared - Qualified HCAP/501/FA 02/01/2022 05/02/2022 99 99 Reason Onset Date Comments Refill Request 02/16/2022 Reason Comments Headache Reason Comments Acute Visit nausea, headaches Reason Comments Results Reason Comments Abdominal Pain Right lower side x c ouple hours, burning pain UTI Reason Comments Sinus Problem Reason Comments Follow Up ABD PAIN Reason Comments Nausea x 1 day Specialty Diagnoses / Procedures Referred By Contac t Referred To Contact Diagnoses [facility] Visit [facility] Reason Comments Orders Reason Comments Results Reason Comments Procedure Reason Comments ER F/U [facility] ER 03/28 dx: dysu maru Reason Comments Radiology CT Specialty Diagnoses / Procedures Referred By Contac t Referred To Contact CT IMAGING Diagnoses Pericardial effusion Procedures CT CHEST WO IVCON DIAGNOSTIC COMPUTED TOMOGRAPHY THORAX W/O CNTRST Bridget De Luna MD [address] [place] [address] Ct Imaging Referral ID Status Reason Start Date Expiration Date V DealPerkts Requested Visits Authorized [id number] Closed Auto-Generate d Referral 03/22/2022 04/21/2023 1 1 Reason Comments fall-started wit h rib pain today bruise on hip not painful Reason Comments Musculoskeletal Problem RIGHT arm pain x today Reason Comments Pain, Back pain rated 7, onset AM, reported bur debi with urination Reason Comments Urinary Problem Pt reported lower ba ck pain rated 19, x1 day, burning with urination Reason Comments Acute Visit Stomach flu Reason Comments Pain (Elbow Pain) left elbow pain x 1 week Reason Comments Urinary Problem Lower back pain rate d 8, x2 days, burning, frequency with urination, recent Cystoscopy. Reason Comments Recheck Questions about urin e results Reason Comments Osteoporosis Reason Comments Fatigue Specialty Diagnoses / Procedures Referred By Contac t Referred To Contact US IMAGING Diagnoses Thyroid nodule Procedures US THYROID/PARATHYROID US SOFT TISSUE HEAD & NECK REAL TIME Bayron Denney DO [address] [place] [address] Us Imaging Referral ID Status Reason Start Date Expiration Date V isits Requested Visits Authorized [id number] Closed Auto-Generate d Referral 06/08/2022 07/08/2023 1 1 Reason Onset Date Comments Refill Request 06/17/2022 Reason Onset Date Comments Refill Request 08/12/2022 Reason Comments Acute Visit possible UTI, having burning Reason Comments Results Urine Culture Reason Comments Back Pain Middle- Radiates int o rib area x 2 weeks Reason Comments Pain, Back Due to falling down the stairs, 1 week ago Reason Comments Medication Question Reason Comments Results Reason Comments Ear Problem Rt earache cames and goes has had sinus stuff going on for a couple months, using flonase Reason Comments Fax over last OV note Reason Comments Sinusitis Ear Pain Left Reason Onset Date Comments Refill Request 11/12/2022 Reason Comments Diarrhea Nausea Reason Comments Results Reason Comments Recheck Follow up from [facility] are in [place] on 12/07; tested positive for COVID; c/o fatigue, body aches, sinuses Reason Onset Date Comments Refill Request 01/02/2023 Reason Onset Date Comments Refill Request 01/03/2023 Reason Comments Fatigue Reason Comments Erroneous encounter-disregard Reason Comments Consult Colonoscopy consult, GERD, pain across transverse abdomen, review CT and US Specialty Diagnoses / Procedures Referred By Contac t Referred To Contact General Surgery Diagnoses RUQ pain GERD without esophagitis Screening for colon cancer Procedures CONSULT TO GENERAL SURGERY OFFICE/OUTPATIENT [facility] 60-74 MINUTES Bridget De Luna MD [address] [place] [id number] Referral ID Status Reason Start Date Expiration Date V isits Requested Visits Authorized [id number] Closed PCP Requested Referral 01/16/2023 01/16/2024 1 1 Reason Onset Date Comments Refill Request 02/02/2023 Reason Comments UTI Burning with urinati on, lower back pain x 1 day Reason Comments Follow Up Reason Comments Pelvic Pain Specialty Diagnoses / Procedures Referred By Contac t Referred To Contact Diagnoses Pelvic pain Procedures CONSULT TO COUNTY JUDGE OFFICE/OUTPATIENT [facility] 60-74 MINUTES Kathy Jansen APRN.WASH WORKER [address] [place] [address] Referral ID Status Reason Start Date Expiration Date V isits Requested Visits Authorized [id number] Closed PCP Requested Referral Auto-Generated Referral 03/02/2023 03/01/2024 1 1 Reason Comments Abdominal Pain Nausea Reason Comments Low Back Pain x1 day with nausea, has gallstones and has seen Dr. Ortega for this but he doesn't think the gallstones could be causing it Reason Comments Refill Request Reason Comments Acute Visit Bilateral feet burni ng Reason Comments Results Labs Reason Comments Diarrhea Pt reported diarrhea , x2 onset AM, denied blood, mucus. Reason Comments Acute Visit headache, diarrhea Reason Comments Pain (Shoulder Pain) Left shoulder pain since this morning Reason Onset Date Comments Refill Request 05/03/2023 Reason Comments Flank Pain Reason Onset Date Comments Refill Request 05/18/2023 Reason Onset Date Comments Refill Request 05/21/2023 Reason Comments UTI Burning with urinati on and back pain x2 weeks Reason Onset Date Comments Refill Request 05/25/2023 Reason Comments Back Pain Lumbar pain causing legs to be weak Reason Comments Cough Cough, congestion, s inus and HOLMAN x 2 days Reason Comments Head Congestion body aches X 1 week Reason Comments Urinary Problem Burning with urinati on Since Monday, urine culture was negative on Cipro x 2 days Reason Comments Dysuria Reason Comments Back Pain X 2 days, No injury pt aware of. Cold sx. Specialty Diagnoses / Procedures Referred By Contrex t Referred To Contact US IMAGING Diagnoses RUQ pain Procedures US ABD RIGHT UPPER QUADRANT US ABDOMINAL REAL TIME W/IMAGE LIMITED Bridget De Luna MD [address] [place] [id number] [place] [address] Referral ID Status Reason Start Date Expiration Date V isits Requested Visits Authorized [id number] Closed Auto-Generate d Referral 01/16/2023 02/15/2024 1 1 Specialty Diagnoses / Procedures Referred By Contac t Referred To Contact CT IMAGING Diagnoses Lung nodules Procedures CT CHEST WO IVCON DIAGNOSTIC COMPUTED TOMOGRAPHY THORAX W/O CNTRST Bridget De Luna MD [address] [place] [address] [address] [place] [address] Referral ID Status Reason Start Date Expiration Date V isits Requested Visits Authorized [id number] Closed Auto-Generate d Referral 04/01/2023 02/29/2024 1 1 Reason Comments Acute Visit URI symptoms x 8 day s; home COVID test was negative; was seen on 08/04 for the same symptoms continue, no change Reason Onset Date Comments Refill Request 08/10/2023 Reason Comments Medicare Wellness Exam Reason Comments sinus Started 2 days ago v brit congested only in nose, no cough, body aches or chills or fever. 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 Reason Comments Back Pain Screen door fell on her and she hit banister last night Reason Comments Abdominal Pain RLQ, nausea x yester day Reason Onset Date Comments Refill Request 11/02/2023 Reason Comments Ear Pain Left ear pain for 1 day Reason Comments Acute Visit twisted back Reason Comments Urinary Frequency Frequency, urgency a nd burning x 1 day Reason Comments Head Congestion Reason Comments insurance problem/appointment Reason Comments Cough Fatigue Reason Comments pelvic pain x 2 days Reason Comments Hospital Follow Up Reason Comments ER F/U [facility] 12/20/23 Reason Comments Insurance Authorization Reason Comments Endometrial Biopsy Specialty Diagnoses / Procedures Referred By Jase t Referred To Contact Gynecology Diagnoses Thickened endometrium Procedures CONSULT TO GYNECOLOGY OFFICE/OUTPATIENT [facility] 60 MINUTES Adelaida Pichardo PA-C [address] [place] [address] Referral ID Status Reason Start Date Expiration Date V isits Requested Visits Authorized [id number] Closed PCP Requested Referral Auto-Generated Referral 12/11/2023 12/10/2024 1 1 Reason Onset Date Comments Refill Request 01/04/2024 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 Tried Protonix- had allergic reaction of itching. Reason Comments Nasal Congestion X1 day, feeling tire d. Reason Comments Breast Problem Left breast pain sin ce Monday night. Toothache Reason Comments Dysuria Reason Comments Acute Visit ? stomach flu Reason Comments Leg Cramps Bilateral calf cramp ing and burning Reason Comments Pelvic Pain Intermittent R side x 2 days, reports no urinary sx at this time. Reason Comments Nausea X1 day, was around s ister who had the stomach flu Reason Comments Back Pain Reason Comments UTI Burning with urinati on, lower abd/ pelvic pain x last night Reason Comments Dysuria Mostly at night Reason Comments Sinusitis Throbbing facial thomas n since this this morning. Reason Comments Abdominal Pain LLQ sharp pain since 4 am this morning Reason Onset Date Comments Refill Request 05/24/2024 Specialty Diagnoses / Procedures Referred By Contac t Referred To Contact CT IMAGING Diagnoses Biliary cyst Procedures CT ABD/PEL WO IVCON CT ABD & PELVIS [place] [address] [place] [address] [place] [id number] Referral ID Status Reason Start Date Expiration Date V isits Requested Visits Authorized [id number] Authorized 05/22/2024 07/21/2024 2 2 Reason Comments rib pain X 2 days Reason Comments Nausea Fatigue Reason Comments Follow Up Reason Comments Same Day Appointment Specialty Diagnoses / [facility] Diagnoses 2nd Covid Vaccine Procedures [place] [address] Referral ID Status Reason Start Date Expiration Date V isits Requested Visits Authorized [id number] Closed Financial Clearance Required - Self Pay Patient Cleared - Qualified HCAP/501/FA Patient Cleared - Qualified 100% FAS 05/04/2021 08/02/2021 99 99 Reason Comments Radiology US Specialty Diagnoses / Procedures Referred By [facility] Referred To Contact US IMAGING Diagnoses Thyroid nodule Procedures US THYROID/PARATHYROID US SOFT TISSUE HEAD & NECK REAL TIME IMGE Bridget Escalera MD [address] [place] [address] [place] [id number] Referral ID Status Reason Start Date Expiration Date V isits Requested Visits Authorized [id number] Closed Auto-Generate d Referral 06/17/2024 07/17/2025 1 1 Reason Comments Low Back Pain Reason Onset Date Comments Refill Request 07/16/2024 Reason Onset Date Comments ACM ROXANNE RN 07/24/2024 ED utilizatio n review per request of payor Reason Comments Patient Question Reason Onset Date Comments Refill Request 01/05/2024 Reason Comments Acute Visit Body aches, feet fee l like they are burning, sore throat Reason Comments Medication Problem Reason Comments Consult Consultation for EGD or UGI. Reason Comments Acute Visit feeling really tired lately Reason Onset Date Comments Patient Left Without Being Seen 08/09/[address] Specialty Diagnoses / Procedures Referred By Jase llanos Referred To Contact CT IMAGING Diagnoses Solitary lung nodule Lung nodules Procedures CT CHEST WO IVCON DIAGNOSTIC COMPUTED TOMOGRAPHY THORAX W/O CNTRST Bridget De Luna MD [address] [facility] [place] [address] [place] [id number] Referral ID Status Reason Start Date Expiration Date V isits Requested Visits Authorized [id number] Closed Auto-Generate d Referral 08/16/2024 10/15/2024 1 1 Reason Comments Sinus Problem Reason Comments Acute Visit Back/hip pain that j ust started today; has used Tylenol and a heating pad Reason Comments UTI Reason Comments Results Urine Reason Comments Pain Right shoulder pain since Monday, no injury Reason Comments Same Day Appointment back and rib pain s rafi this am, no injury noted, took tylenol and heating pad Reason Comments Acute Visit Headache, nausea, co ngestion Reason Comments Pain Pain right side rib pain Reason Comments nose bleeds Sinus Problem Pain and congestion Reason Comments Acute Visit Bilateral lower leg pain/cramping x2 days Reason Comments Wellness Reason Comments Back Pain Pain between shoulde r blades X 1 day Reason Comments Acute Visit Pain in bilateral ea rs x1 week Reason Comments Acute Visit Stomach cramping and nausea started last evening Reason Onset Date Comments Refill Request 11/06/2024 Reason Comments Mole Reason Comments Urinary Problem burning and pain wit h urination x this am Reason Onset Date Comments Refill Request 11/30/2024 Reason Onset Date Comments Refill Request 12/01/2024 Reason Comments URI Head congestion, hea dache x 2 days Reason Comments Acute Visit Back pain since taki ng a deep breath last evening Reason Comments URI Reason Comments Neck Pain Left sided neck pain for 2 days Reason Comments Acute Visit Feet/legs feel cold Reason Onset Date Comments Refill Request 02/22/2025 Reason Comments Acute Visit Pain in ribs x coupl e days; no known injury Reason Comments rib pain Right side ribs burn ing Reason Comments Follow Up Mid back and upper a bdominal pain, saw Dr. De Luna last week Reason Onset Date Comments Results 03/24/2025 Reason Comments UTI Dysuria and abdomina l cramping Reason Comments Acute Visit Burning with urinati on, lower abdominal pain Reason Comments Acute Visit Nausea, soft stools Reason Onset Date Comments Population Health Navigation Outreach 04/17/2025 [employer] [place] Reason Comments Back Pain Lower, pain radiates into both legs started 04/19, no recent injuries Reason Comments Patient Update Reason Onset Date Comments Refill Request 04/30/2025 Reason Comments Leg Pain Specialty Diagnoses / Procedures Referred By Contac t Referred To Contact CT IMAGING Diagnoses Cyst and pseudocyst of pancreas (HCC) Procedures CT ABD/PEL WO IVCON CT ABD & PELVIS W/[place] [address] [place] [address] Phone: tel: fax: [place] [id number] Referral ID Status Reason Start Date Expiration Date V isits Requested Visits Authorized [id number] Closed Auto-Generate d Referral 05/05/2025 07/04/2025 1 1 Reason Comments 6 Month Exam Reason Comments Ear Pain R ear pain, x 2 days pain going down neck Reason Comments Acute Visit Upset stomach, nause a, fatigue, loose stools sx started yesterday evening Reason Comments Cough Cough since 12:30 am Reason Comments Acute Visit Twisted back steppin g into a hole yesterday morning Goals (unrecognized section and content) Goals may be documented in a n alternate sectionGoals may be documented in an alternate section FOR RECORDS PERTAINING TO PATIENTS WHO ARE OR HAVE BEEN ENROLLED IN A CHEMICAL DEPENDENCY/SUBSTANCEABUSE PROGRAM, SOME INFORMATION MAY BE OMITTED. This clinical summary was aggregated from multiple sources. Caution should be exercised in using it in the provision of clinical care. This summary normalizes information from multiple sources, and as a consequence, information in this document may materially change the coding, format and clinical context of patient data. In addition, data may be omitted in some cases. CLINICAL DECISIONS SHOULD BE BASED ON THE PRIMARY CLINICAL RECORDS. [email or web address] provides no warranty or guarantee of the accuracy or completeness of information in this document.
== END 2025-06-22 15:29 | disposition home or self-care (01) ==
PROVIDERS: Emergency Provider Emergency Medicine; PCP Family Medicine; Visit Provider Emergency Medicine
DX: K21.9 Gastro-esophageal reflux disease without esophagitis (principal); I10 Essential (primary) hypertension; E78.00 Pure hypercholesterolemia, unspecified; Z79.899 Other long term (current) drug therapy; Z87.891 Personal history of nicotine dependence
CPT/HCPCS: 99282